=== PATIENT | female | born 1930 | race African-American/Black ===

== ENCOUNTER 2017-01-19 17:48 | Emergency (ER) | payer OTHER ==
[2017-01-19 17:58] VITALS: BMI 36.9
[2017-01-19] MEDS ORDERED: ACETAMINOPHEN 1000 MG/100 ML VIAL (NON FORMULARY) IVPB ONE (20:10)
[2017-01-19 20:58] LABS: URINE APPEARANCE CLEAR; URINE BILIRUBIN NEGATIVE (NEGATIVE); URINE BLOOD NEGATIVE (NEGATIVE); URINE COLOR AMBER; URINE GLUCOSE (UA) NEGATIVE (NEGATIVE); URINE KETONE NEGATIVE (NEGATIVE); URINE NITRITE NEGATIVE (NEGATIVE); URINE UROBILINOGEN 2.0 E.U/dl E.U./dl (0.2-1.0)
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
[2017-01-19 21:00] LABS: URINE BACTERIA RARE /hpf (NONE SEEN); URINE LEUK ESTERASE 2+ (NEGATIVE); URINE MUCUS RARE; URINE PROTEIN 1+ (NEGATIVE); URINE RBC 3 /hpf (0-3); URINE WBC 11 /hpf (3-5)
[2017-01-19] MEDS ORDERED: ACETAMINOPHEN INJECTION 100 ML IVPB ONE (21:13)
[2017-01-19 21:30] LABS: BASOPHIL 1.2 % (0-2.0); EOSINOPHIL 1.5 % (0-4.5); MCHC 30.3 g/dl (32.0-36.0); MEAN PLT VOLUME 9.4 fl (7.5-11.1); NEUTROPHILS 48.7 % (42.8-82.8); RDW 17.3 % (11.6-15.6); WHITE BLOOD COUNT 4.5 K/mm3 (4.0-10.0)
[2017-01-19 21:34] VITALS: TEMP 98.1
[2017-01-19 21:49] LABS: ALBUMIN 3.3 g/dl (3.4-5.0); ALK PHOS 133 U/L (45-117); ANION GAP 12 (8-16); BILIRUBIN,TOTAL 0.4 mg/dL (0.2-1.0); CALCIUM 9.1 mg/dL (8.5-10.1); CO2 31 mmol/L (21-32); CREATININE 0.7 mg/dL (0.55-1.02); GLUCOSE,RANDOM 111 mg/dL (74-106); SGOT/AST 18 U/L (15-37); SGPT/ALT 17 U/L (12-78); TOT PROT 7.1 g/dl (6.4-8.2)
[2017-01-19 21:51] LABS: ANISOCYTOSIS 1+; HYPOCHROMIA 2+; MICROCYTOSIS 1+; OVALOCYTES 1+; PLATELET ESTIMATE DECREASED (NORMAL); POLYCHROMASIA FEW; TROPONIN I < 0.02 ng/ml (0.00-0.05)
[2017-01-19 21:52] LABS: PLATELET COMMENT2 SLT PLT CLUMPING
[2017-01-20] MEDS ORDERED: CEPHALEXIN MONOHYDRATE 500 MG CAPSULE (UD) PO ONE (01:45)
[2017-01-20] MEDS ORDERED: CEPHALEXIN MONOHYDRATE 250 MG CAPSULE (FP) ONE (02:20)
[2017-01-20 02:46] VITALS: BP 153/68; PULSE 73
--- NOTE | 2017-01-20 16:15 | EKG ---
Test Reason : Blood Pressure : / mmHG Vent. Rate : 076 BPM Atrial Rate : 107 BPM P-R Int : 000 ms QRS Dur : 090 ms QT Int : 398 ms P-R-T Axes : 000 -10 025 degrees QTc Int : 447 ms POOR DATA QUALITY, INTERPRETATION MAY BE ADVERSELY AFFECTED ATRIAL FIBRILLATION ABNORMAL ECG WHEN COMPARED WITH ECG OF 22-APR-2015 15:37, ATRIAL FIBRILLATION HAS REPLACED SINUS RHYTHM Confirmed by CHARLOTTE ROY, ROGELIO ([id number]) on 01/20/2017 4:15:00 PM Referred By: Confirmed By:ROGELIO PORTER MD
== END 2017-01-20 02:51 ==
LOC: JER 17:48
PROC: 3E033NZ Introduction of Analgesics, Hypnotics, Sedatives into Peripheral Vein, Percutaneous Approach (ICD-10-PCS; principal; 2017-01-19)
DX: M54.2 Cervicalgia (principal); N39.0 Urinary tract infection, site not specified; R60.0 Localized edema; M79.604 Pain in right leg; M79.605 Pain in left leg; V68.1XXA Passenger in heavy transport vehicle injured in noncollision transport accident in nontraffic accident, initial encounter; Y92.414 Local residential or business street as the place of occurrence of the external cause; Y99.8 Other external cause status; Y93.89 Activity, other specified; I25.10 Atherosclerotic heart disease of native coronary artery without angina pectoris; I11.0 Hypertensive heart disease with heart failure; E78.00 Pure hypercholesterolemia, unspecified; D51.0 Vitamin B12 deficiency anemia due to intrinsic factor deficiency
CPT/HCPCS: 36415; 70450-TC; 72125-TC; 74177-TC; 80053; 81003; 81015; 82550; 83880; 84484; 85025; 93005; 93010; 93970-TC; 99283-25

== ENCOUNTER 2017-03-14 18:33 | Inpatient (IN) | payer OTHER ==
[2017-03-14] MEDS ORDERED: ALBUTEROL SO4 2.5/IPRATROPIUM 0.5 INH SOL 3 ML VIAL.NEB. NEB ONE ×3 (18:47→20:47)
[2017-03-14] MEDS ORDERED: methylPREDNISolone NA SUCC 125 MG/2 ML VIAL IVPB ONE (19:15)
[2017-03-14] MEDS ORDERED: methylPREDNISolone NA SUCC 125 MG/2 ML VIAL ONE (19:50)
[2017-03-14 20:02] LABS: INR 1.91 (0.82-1.09); PROTHROMBIN TIME (PATIENT) 21.3 SEC (9.98-11.88)
[2017-03-14 20:10] LABS: ALBUMIN 3.1 g/dl (3.4-5.0); ANION GAP 6 (8-16); BILIRUBIN,TOTAL 0.9 mg/dL (0.2-1.0); CALCIUM 8.9 mg/dL (8.5-10.1); CO2 37 mmol/L (21-32); CREATININE 0.7 mg/dL (0.55-1.02); GLUCOSE,RANDOM 131 mg/dL (74-106); SGOT/AST 21 U/L (15-37); SGPT/ALT 17 U/L (12-78); TOT PROT 7.4 g/dl (6.4-8.2)
[2017-03-14 20:12] LABS: ALK PHOS 120 U/L (45-117); BASOPHIL 0.4 % (0-2.0); EOSINOPHIL 0.2 % (0-4.5); MCHC 30.1 g/dl (32.0-36.0); MEAN CELL VOLUME 65.9 fl (80-96); NEUTROPHILS 73.6 % (42.8-82.8); RDW 17.5 % (11.6-15.6); TROPONIN I < 0.02 ng/ml (0.00-0.05); WHITE BLOOD COUNT 10.3 K/mm3 (4.0-10.0)
[2017-03-14 20:15] LABS: MCH 19.8 pg (25.7-33.7); MEAN PLT VOLUME 9.7 fl (7.5-11.1); PLATELET COUNT 159 K/MM3 (134-434)
[2017-03-14 20:25] LABS: URINE APPEARANCE CLEAR; URINE BILIRUBIN NEGATIVE (NEGATIVE); URINE BLOOD NEGATIVE (NEGATIVE); URINE COLOR YELLOW; URINE GLUCOSE (UA) NEGATIVE (NEGATIVE); URINE KETONE NEGATIVE (NEGATIVE); URINE LEUK ESTERASE TRACE (NEGATIVE); URINE NITRITE NEGATIVE (NEGATIVE); URINE PROTEIN NEGATIVE (NEGATIVE); URINE UROBILINOGEN 4.0 E.U/dl E.U./dl (0.2-1.0)
[2017-03-14 20:27] LABS: URINE RBC 3 /hpf (0-3); URINE WBC 1 /hpf (3-5)
[2017-03-14 20:28] LABS: PLATELET ESTIMATE DECREASED (NORMAL)
[2017-03-14 20:29] LABS: ANISOCYTOSIS 1+; HYPOCHROMIA 2+; MICROCYTOSIS 1+; POLYCHROMASIA 1+
--- NOTE | 2017-03-14 20:46 | PDOC ---
History of Present Illness - History of Present Illness Initial Comments: 03/14/17 23:31 Patient is a 86 year old female with significant medical hx of pernicious anemia , COPD, CHF, HTN, HLD, glaucoma, sarcoidosis, migraines, arthritis, septicemia and colon polyps, who has been sent to the ED via EMS [facility] for one week of productive cough. Patient complains of one week of progressive, productive, junky cough with some shortness of breath. The patient was found to be febrile at 101.0 and tachycardic in the ED. She is on 2 liters of O2 at home chronically for COPD. Denies nasal congestion, chest pain, weakness, lightheadedness, or dizziness. 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: Antonio Moreland MD <Melanie Koo - Last Filed: 03/14/17 23:31> <Deanna Villarreal - Last Filed: 03/15/17 01:25> - General Chief Complaint: Respiratory Stated Complaint: RESOIRATORY Time Seen by Provider: 03/14/17 18:44 Past History <Melanie Koo - Last Filed: 03/14/17 23:31> - Past Medical History Anemia: Yes (Pernicious) Asthma: Yes Cancer: No Cardiac Disorders: Yes (heart murmur) CVA: No COPD: Yes CHF: No Dementia: No Diabetes: No GI Disorders: No Disorders: No HTN: Yes Hypercholesterolemia: Yes Liver Disease: No Psychiatric Problems: Yes (ANXIETY.) Seizures: No Thyroid Disease: No - Surgical History Abdominal Surgery: Yes (abdominal) Appendectomy: No Cardiac Surgery: No Cholecystectomy: Yes Lung Surgery: No (PT DENIES) Neurologic Surgery: No Orthopedic Surgery: Yes (cervical spine/hardware) - Immunization History Immunization Up to Date: No - Psycho/Social/Smoking Cessation Hx Anxiety: No Suicidal Ideation: No Smoking Status: No Smoking History: Never smoked Years of Tobacco Use: 0 Have you smoked in the past 12 months: No Number of Cigarettes Smoked Daily: 0 Information on smoking cessation initiated: No Hx Alcohol Use: No Drug/Substance Use Hx: No Substance Use Type: None Hx Substance Use Treatment: No <Deanna Villarreal - Last Filed: 03/15/17 01:25> - Past Medical History Allergies/Adverse Reactions: Allergies Allergy/AdvReac Type Severity Reaction Status Date / Time No Known Allergies Allergy Verified 01/20/17 02:13 Home Medications: Ambulatory Orders Albuterol 0.083% Nebulizer Lyudmila [Ventolin 0.083% Nebulizer Soln -] 1 amp NEB Q8H 01/19/17 Apixaban [Eliquis] 5 mg PO BID 01/19/17 Ascorbic Acid [Vitamin C -] 500 mg PO DAILY 01/19/17 Atorvastatin Ca [Lipitor] 20 mg PO DAILY 01/19/17 Bisacodyl Suppository [Dulcolax Suppository -] 10 mg RC PRN 01/19/17 Budesonide/Formeterol Fumarate [SYMBICORT 160/4.5mcg -] 1 inh PO BID 01/19/17 Diltiazem Cd [Cardizem Cd -] 180 mg PO DAILY 01/19/17 Folic Acid 1 mg PO DAILY 01/19/17 Furosemide [Lasix] 40 mg PO DAILY 01/19/17 Gabapentin 100 mg PO TID 01/19/17 Ipratropium 0.02% Nebulizer [Atrovent *Nebulizer*] 0.5 mg IH Q8H 01/19/17 Latanoprost 0.005% Eye Drops [Xalatan 0.005% Eye Drops -] 1 drop OU HS 01/19/17 Magnesium Hydroxide [Milk of Magnesia] 30 ml PO DAILY 01/19/17 Multivitamin [Poly-Vitamin] 1 each PO DAILY 01/19/17 Pantoprazole Sodium 40 mg PO DAILY 01/19/17 Potassium Chloride [Klor-Con 10] 10 meq PO DAILY 01/19/17 Review of Systems - Review of Systems Comments:: 03/14/17 23:36 CONSTITUTIONAL: Absent: fever, chills, diaphoresis, generalized weakness, malaise, loss of appetite HEENT: Absent: rhinorrhea, nasal congestion, throat pain, throat swelling, difficulty swallowing, mouth swelling, ear pain, eye pain, visual changes CARDIOVASCULAR: Absent: chest pain, syncope, palpitations, irregular heart rate, lightheadedness , peripheral edema RESPIRATORY: Present: cough, shortness of breath Absent: dyspnea with exertion, orthopnea, wheezing, stridor, hemoptysis GASTROINTESTINAL: Absent: abdominal pain, abdominal distension, nausea, vomiting, diarrhea, constipation, melena, hematochezia GENITOURINARY: Absent: dysuria, frequency, urgency, hesitancy, hematuria, flank pain, genital pain MUSCULOSKELETAL: Absent: myalgia, arthralgia, joint swelling SKIN: Absent: rash, itching, pallor HEMATOLOGIC/IMMUNOLOGIC: Absent: easy bleeding, easy bruising, lymphadenopathy, frequent infections ENDOCRINE: Absent: unexplained weight gain, unexplained weight loss, heat intolerance, cold intolerance NEUROLOGIC: Absent: headache, focal weakness or paresthesia, dizziness, unsteady gait, seizure, mental status changes, bladder or bowel incontinence. PSYCHIATRIC: Absent: anxiety, depression, suicidal or homicidal ideation, hallucinations <Melanie Koo - Last Filed: 03/14/17 23:31> *Physical Exam - Vital Signs Last Vital Signs Temp Pulse Resp BP Pulse Ox 101.0 F H 89 24 144/61 100 03/14/17 18:33 03/14/17 23:10 03/14/17 23:10 03/14/17 23:10 03/14/17 23:10 - Physical Exam Comments: 03/14/17 23:36 GENERAL: Well developed, well nourished. Awake and alert. Febrile. Mild distress. HEENT: Normocephalic, atraumatic. PERRLA, EOMI. No conjunctival pallor. Sclera are non- icteric. Moist mucous membranes. Oropharynx is clear. NECK: Supple. Full ROM. No JVD. Carotid pulses 2+ and symmetric, without bruits. No thyromegaly. No lymphadenopathy. CARDIOVASCULAR: Irregularly irregular. Tachycardic. No murmurs, rubs, or gallops. Distal pulses are 2+ and symmetric. PULMONARY: Diffuse wheezing. Diffuse rhonchorous breath sounds. No evidence of respiratory distress. No rales. ABDOMINAL: Soft. Non-tender. Non-distended. No rebound or guarding. No organomegaly. Normoactive bowel sounds. MUSCULOSKELETAL: Normal range of motion at all joints. No bony deformities or tenderness. No CVA tenderness. EXTREMITIES: No cyanosis. No clubbing. Pitting edema lower extremities bilaterally. No venous stasis. No leg ulcers. No calf tenderness. SKIN: Warm and dry. Normal capillary refill. No rashes. No jaundice. NEUROLOGICAL: Alert, awake, appropriate. Cranial nerves 2-12 intact. Normal speech. Gait is normal without ataxia. PSYCHIATRIC: Cooperative. Good eye contact. Appropriate mood and affect. <Melanie Koo - Last Filed: 03/14/17 23:31> - Vital Signs Last Vital Signs Temp Pulse Resp BP Pulse Ox 101.0 F H 95 H 24 149/72 98 03/14/17 18:33 03/14/17 18:33 03/14/17 18:33 03/14/17 18:33 03/14/17 20:40 <PhilDeanna Wendy - Last Filed: 03/15/17 01:25> ED Treatment Course - LABORATORY CBC & Chemistry Diagram: 03/14/17 19:30 03/14/17 19:30 - ADDITIONAL ORDERS Additional order review: Laboratory Results 03/14/17 03/14/17 03/14/17 22:09 20:20 20:15 INR PTT (Actin FS) Sodium Potassium Chloride Carbon Dioxide Anion Gap BUN Creatinine Creat Clearance w eGFR Random Glucose Lactic Acid 3.8 H* Calcium Total Bilirubin AST ALT Alkaline Phosphatase Creatine Kinase Troponin I Total Protein Albumin Urine Color Yellow Urine Appearance Clear Urine pH 6.0 Ur Specific [place] 1.015 Urine Protein Negative Urine Glucose (UA) Negative Urine Ketones Negative Urine Blood Negative Urine Nitrite Negative Urine Bilirubin Negative Urine Urobilinogen 4.0 e.u/dl H Ur Leukocyte Esterase Trace H D Urine RBC 3 Urine WBC 1 Ur Epithelial Cells Rare Blood Type Cancelled Antibody Screen Cancelled Spec Expiration Date Cancelled 03/14/17 03/14/17 03/14/17 19:30 19:30 19:30 INR PTT (Actin FS) Sodium 139 Potassium 3.9 Chloride 96 L Carbon Dioxide 37 H Anion Gap 6 L BUN 9 Creatinine 0.7 Creat Clearance w eGFR > 60 Random Glucose 131 H Lactic Acid 2.7 H* Calcium 8.9 Total Bilirubin 0.9 D AST 21 ALT 17 Alkaline Phosphatase 120 H Creatine Kinase 79 Troponin I < 0.02 Total Protein 7.4 Albumin 3.1 L Urine Color Urine Appearance Urine pH Ur Specific [place] Urine Protein Urine Glucose (UA) Urine Ketones Urine Blood Urine Nitrite Urine Bilirubin Urine Urobilinogen Ur Leukocyte Esterase Urine RBC Urine WBC Ur Epithelial Cells Blood Type B POSITIVE Antibody Screen Cancelled Spec Expiration Date Cancelled 03/14/17 19:30 INR 1.91 H D PTT (Actin FS) 43.0 H Sodium Potassium Chloride Carbon Dioxide Anion Gap BUN Creatinine Creat Clearance w eGFR Random Glucose Lactic Acid Calcium Total Bilirubin AST ALT Alkaline Phosphatase Creatine Kinase Troponin I Total Protein Albumin Urine Color Urine Appearance Urine pH Ur Specific [place] Urine Protein Urine Glucose (UA) Urine Ketones Urine Blood Urine Nitrite Urine Bilirubin Urine Urobilinogen Ur Leukocyte Esterase Urine RBC Urine WBC Ur Epithelial Cells Blood Type Antibody Screen Spec Expiration Date 03/14/17 19:30 RBC 5.02 MCV 65.9 L MCHC 30.1 L RDW 17.5 H MPV 9.7 Neutrophils % 73.6 D Lymphocytes % 14.2 D Monocytes % 11.6 H Eosinophils % 0.2 D Basophils % 0.4 - Medications Given in the ED: ED Medications Discontinued Medications Generic Name Dose Route Start Last Admin Trade Name Freq PRN Reason Stop Dose Admin Acetaminophen 650 mg 03/14/17 22:18 03/14/17 22:58 Tylenol - PO 03/14/17 22:19 650 mg ONCE ONE Administration Albuterol/Ipratropium 1 amp 03/14/17 19:15 03/14/17 20:19 Duoneb - NEB 03/14/17 19:16 1 amp ONCE ONE Administration Albuterol/Ipratropium 1 amp 03/14/17 20:47 03/14/17 21:36 Duoneb - NEB 03/14/17 20:48 1 amp ONCE ONE Administration Furosemide 40 mg 03/14/17 22:19 03/14/17 22:59 Lasix Injection - IVPUSH 03/14/17 22:20 40 mg ONCE ONE Administration Ceftriaxone Sodium 1 gm/ 50 mls @ 100 mls/hr 03/14/17 20:49 03/14/17 21:15 Dextrose IVPB 03/14/17 21:18 100 mls/hr ONCE ONE Administration Levofloxacin 100 mls @ 100 mls/hr 03/14/17 20:50 03/14/17 21:15 Levaquin 500 Mg Premixed Ivpb - IVPB 03/14/17 21:49 100 mls/hr ONCE ONE Administration Ceftriaxone Sodium 1 gm/ 50 mls @ 100 mls/hr 03/14/17 22:58 03/14/17 23:23 Dextrose IVPB 03/14/17 23:27 Not Given ONCE ONE Methylprednisolone Sodium Succinate 125 mg 03/14/17 19:15 03/14/17 20:19 Solu-Medrol - IVPB 03/14/17 19:16 125 mg ONCE ONE Administration <Melanie Koo - Last Filed: 03/14/17 23:31> - LABORATORY CBC & Chemistry Diagram: 03/14/17 19:30 03/14/17 19:30 - ADDITIONAL ORDERS Additional order review: Laboratory Results 03/14/17 03/14/17 03/14/17 20:20 20:15 19:30 INR PTT (Actin FS) Sodium Potassium Chloride Carbon Dioxide Anion Gap BUN Creatinine Creat Clearance w eGFR Random Glucose Lactic Acid Calcium Total Bilirubin AST ALT Alkaline Phosphatase Creatine Kinase Troponin I Total Protein Albumin Urine Color Yellow Urine Appearance Clear Urine pH 6.0 Urine Protein Negative Urine Glucose (UA) Negative Urine Ketones Negative Urine Blood Negative Urine Nitrite Negative Urine Bilirubin Negative Urine Urobilinogen 4.0 e.u/dl H Ur Leukocyte Esterase Trace H D Urine RBC 3 Urine WBC 1 Ur Epithelial Cells Rare Blood Type Cancelled Antibody Screen Cancelled Cancelled Spec Expiration Date Cancelled Cancelled 03/14/17 03/14/17 03/14/17 19:30 19:30 19:30 INR 1.91 H D PTT (Actin FS) 43.0 H Sodium 139 Potassium 3.9 Chloride 96 L Carbon Dioxide 37 H Anion Gap 6 L BUN 9 Creatinine 0.7 Creat Clearance w eGFR > 60 Random Glucose 131 H Lactic Acid 2.7 H* Calcium 8.9 Total Bilirubin 0.9 D AST 21 ALT 17 Alkaline Phosphatase 120 H Creatine Kinase 79 Troponin I < 0.02 Total Protein 7.4 Albumin 3.1 L Urine Color Urine Appearance Urine pH Urine Protein Urine Glucose (UA) Urine Ketones Urine Blood Urine Nitrite Urine Bilirubin Urine Urobilinogen Ur Leukocyte Esterase Urine RBC Urine WBC Ur Epithelial Cells Blood Type Antibody Screen Spec Expiration Date 03/14/17 19:30 RBC 5.02 MCV 65.9 L MCHC 30.1 L RDW 17.5 H MPV 9.7 Neutrophils % 73.6 D Lymphocytes % 14.2 D Monocytes % 11.6 H Eosinophils % 0.2 D Basophils % 0.4 - RADIOLOGY Radiology Studies Ordered: Category Date Time Status CHEST X-RAY PORTABLE* [RAD] Stat Radiology 03/14/17 19:13 Taken - Medications Given in the ED: ED Medications Discontinued Medications Generic Name Dose Route Start Last Admin Trade Name Khang PRN Reason Stop Dose Admin Albuterol/Ipratropium 1 amp 03/14/17 19:15 03/14/17 20:19 Duoneb - NEB 03/14/17 19:16 1 amp ONCE ONE Administration Methylprednisolone Sodium Succinate 125 mg 03/14/17 19:15 03/14/17 20:19 Solu-Medrol - IVPB 03/14/17 19:16 125 mg ONCE ONE Administration <Deanna Villarreal - Last Filed: 03/15/17 01:25> *DC/Admit/Observation/Transfer - Attestations Scribe Attestion: 03/14/17 23:39 Documentation prepared by Melanie Koo, acting as registered medical transcriptionist for Deanna Villarreal MD. <Melanie Koo - Last Filed: 03/14/17 23:31> - Discharge Dispostion Admit: Yes <Deanna Villarreal - Last Filed: 03/15/17 01:25> Diagnosis at time of Disposition: COPD (chronic obstructive pulmonary disease) Qualifiers: COPD type: COPD with acute exacerbation Qualified Code(s): J44.1 - Chronic obstructive pulmonary disease with (acute) exacerbation Fever Qualifiers: Fever type: due to other condition Qualified Code(s): R50.81 - Fever presenting with conditions classified elsewhere Pneumonia Qualifiers: Pneumonia type: due to unspecified organism Laterality: unspecified laterality Lung location: lower lobe of lung Qualified Code(s): J18.1 - Lobar pneumonia, unspecified organism
[2017-03-14] MEDS ORDERED: CEFTRIAXONE 1 GM in DEXTROSE 5%-WATER - 50 ML IVPB ONE ×2 (20:49→22:58)
[2017-03-14] MEDS ORDERED: LEVOFLOXACIN 500 MG IVPB 100 ML IVPB ONE ×2 (20:50→21:14)
[2017-03-14] MEDS ORDERED: CEFTRIAXONE 50 ML ONE (21:14)
[2017-03-14] MEDS ORDERED: ACETAMINOPHEN 325 MG TABLET (FP) PO ONE (22:18)
[2017-03-14] MEDS ORDERED: FUROSEMIDE 40 MG/4 ML INJECTABLE VIAL IVPUSH ONE (22:19)
[2017-03-14] MEDS ORDERED: ACETAMINOPHEN 325 MG TABLET (FP) ONE (22:27)
[2017-03-14] MEDS ORDERED: FUROSEMIDE 40 MG/4 ML INJECTABLE VIAL ONE (22:27)
[2017-03-14] MEDS ORDERED: SODIUM CHLORIDE 500 ML IV STA (22:57)
[2017-03-14] MEDS ORDERED: AZITHROMYCIN IVPB 500 MG in DEXTROSE 5%-WATER - 250 ML IVPB ONE (22:58)
[2017-03-14] MEDS ORDERED: AZITHROMYCIN IVPB 250 ML IVPB ONE (23:05)
[2017-03-15 01:15] LABS: TROPONIN I < 0.02 ng/ml (0.00-0.05)
[2017-03-15 05:13] VITALS: BMI 34.9
[2017-03-15] MEDS: ALBUTEROL SO4 2.5/IPRATROPIUM 0.5 INH SOL 3 ML VIAL.NEB. NEB PRN ×2 (05:27→21:35)
[2017-03-15] MEDS: GABAPENTIN 100 MG CAPSULE (FP) PO SCH ×3 (06:05→22:19)
[2017-03-15] MEDS ORDERED: PT OWN MED DRAWER 7, Y5N ONE ×3 (09:01→23:21)
[2017-03-15] MEDS: methylPREDNISolone NA SUCC 125 MG/2 ML VIAL IVPB SCH ×3 (09:11→21:18)
[2017-03-15] MEDS: PANTOPRAZOLE 40 MG TABLET (FP) PO SCH (10:32)
[2017-03-15] MEDS: cefTRIAXone 1 GM/50 ML BAG (PRE-DOCKED) IVPB SCH (10:32)
--- NOTE | 2017-03-15 14:10 | EKG ---
Test Reason : Blood Pressure : / mmHG Vent. Rate : 095 BPM Atrial Rate : 083 BPM P-R Int : 000 ms QRS Dur : 086 ms QT Int : 352 ms P-R-T Axes : 000 -02 038 degrees QTc Int : 442 ms ATRIAL FIBRILLATION ABNORMAL ECG WHEN COMPARED WITH ECG OF 19-JAN-2017 20:51, NO SIGNIFICANT CHANGE WAS FOUND Confirmed by BEE MAYERS MD ([id number]) on 03/15/2017 2:09:58 PM Referred By: Confirmed By:BEE MAYERS MD
--- NOTE | 2017-03-15 14:11 | CONSULT ---
Consult Consult Specialty:: infectious diseases Reason for Consultation:: fever,pna - History of Present Illness Chief Complaint: sob fever History of Present Illness: 86 year old female with significant medical hx of pernicious anemia, COPD, CHF, HTN, HLD, glaucoma, sarcoidosis, migraines, arthritis, septicemia and colon polyps, who has been sent to the ED via EMS from [facility] for one week of productive cough. Patient complains of one week of progressive, productive, junky cough with some shortness of breath. The patient was found to be febrile at 101.0 and tachycardic in the ED. She is on 2 liters of O2 at home chronically for COPD. patient says that she has been having issues for some time and not getting better at all and wants to know why patient feels very weak and tired She denies any chest pain or palpitations but reports a cough productive of yellow sputum and wheezing. and chills. Also reports leg swelling increased from her baseline. 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 No: Renal Calculi ...: No Psych: Yes: Depression - Alcohol/Substance Use Hx Alcohol Use: No - Smoking History Smoking history: Never smoked Have you smoked in the past 12 months: No Aproximately how many cigarettes per day: 0 - Social History History of Recent Travel: No Home Medications - Allergies Allergies/Adverse Reactions: Allergies Allergy/AdvReac Type Severity Reaction Status Date / Time No Known Allergies Allergy Verified 01/20/17 02:13 - Home Medications Home Medications: Ambulatory Orders Albuterol 0.083% Nebulizer Lyudmila [Ventolin 0.083% Nebulizer Soln -] 1 amp NEB Q8H 01/19/17 Apixaban [Eliquis] 5 mg PO BID 01/19/17 Ascorbic Acid [Vitamin C -] 500 mg PO DAILY 01/19/17 Atorvastatin Ca [Lipitor] 20 mg PO DAILY 01/19/17 Bisacodyl Suppository [Dulcolax Suppository -] 10 mg RC PRN 01/19/17 Budesonide/Formeterol Fumarate [SYMBICORT 160/4.5mcg -] 1 inh PO BID 01/19/17 Diltiazem Cd [Cardizem Cd -] 180 mg PO DAILY 01/19/17 Folic Acid 1 mg PO DAILY 01/19/17 Furosemide [Lasix] 40 mg PO DAILY 01/19/17 Gabapentin 100 mg PO TID 01/19/17 Ipratropium 0.02% Nebulizer [Atrovent *Nebulizer*] 0.5 mg IH Q8H 01/19/17 Latanoprost 0.005% Eye Drops [Xalatan 0.005% Eye Drops -] 1 drop OU HS 01/19/17 Magnesium Hydroxide [Milk of Magnesia] 30 ml PO DAILY 01/19/17 Multivitamin [Poly-Vitamin] 1 each PO DAILY 01/19/17 Pantoprazole Sodium 40 mg PO DAILY 01/19/17 Potassium Chloride [Klor-Con 10] 10 meq PO DAILY 01/19/17 Review of Systems - Review of Systems Constitutional: reports: Fever Eyes: reports: No Symptoms HENT: reports: No Symptoms Neck: reports: No Symptoms Cardiovascular: reports: No Symptoms Respiratory: reports: Cough, Other (sputum production) Gastrointestinal: reports: No Symptoms Genitourinary: reports: No Symptoms Musculoskeletal: reports: Muscle Weakness Integumentary: reports: No Symptoms Neurological: reports: No Symptoms Endocrine: reports: No Symptoms Hematology/Lymphatic: reports: No Symptoms Psychiatric: reports: No Symptoms Physical Exam Vital Signs: Vital Signs Temperature 98 F 03/15/17 09:31 Pulse Rate 80 03/15/17 09:31 Respiratory Rate 18 03/15/17 09:31 Blood Pressure 142/76 03/15/17 09:31 O2 Sat by Pulse Oximetry (%) 100 03/15/17 04:14 Constitutional: Yes: Calm, Mild Distress Eyes: Yes: Conjunctiva Clear Neck: Yes: Supple Cardiovascular: Yes: Regular Rate and Rhythm Respiratory: Yes: On Nasal O2, Poor Air Entry, Rhonchi Gastrointestinal: Yes: Normal Bowel Sounds, Soft Musculoskeletal: Yes: WNL Extremities: Yes: WNL Neurological: Yes: Alert, Oriented Psychiatric: Yes: Alert, Oriented Imaging - Results Chest X-ray: Report Reviewed, Image Reviewed Assessment/Plan Problem List - Problems (1) Acute exacerbation of chronic obstructive pulmonary disease Code(s): J44.1 - CHRONIC OBSTRUCTIVE PULMONARY DISEASE W (ACUTE) EXACERBATION (2) Chronic respiratory failure with hypoxia Code(s): J96.11 - CHRONIC RESPIRATORY FAILURE WITH HYPOXIA (3) Sarcoidosis Code(s): D86.9 - SARCOIDOSIS, UNSPECIFIED (4) Hypertension Code(s): I10 - ESSENTIAL (PRIMARY) HYPERTENSION Qualifiers: Hypertension type: essential hypertension Qualified Code(s): I10 - Essential (primary) hypertension (5) Pneumonia Code(s): J18.9 - PNEUMONIA, UNSPECIFIED ORGANISM Qualifiers: Pneumonia type: due to unspecified organism Laterality: unspecified laterality Lung location: lower lobe of lung Qualified Code(s): J18.1 - Lobar pneumonia, unspecified organism i think patient has couple of things going on patient has infective element also she has her primary sarcoid plan i will start on abx and monitor we should do a ct of the chest to see if anything else is going on incentive radha rest as per pul
[2017-03-15] MEDS: APIXABAN 5 MG TABLET PO SCH ×2 (14:15→22:19)
--- NOTE | 2017-03-15 14:47 | CON.PULM ---
Consult Consult Specialty:: PULMONARY Referred by:: Dr. Doran Reason for Consultation:: shortness of breath - History of Present Illness Chief Complaint: shortness of breath History of Present Illness: 86yo female with h/o HTN, hyperlipidemia, sarcoidosis, COPD, chronic hypoxic respiratory failure on home O2, anemia who was transferred from the care home for worsening shortness of breath x 3-4 days. She denies any chest pain or palpitations but reports a cough productive of yellow sputum and wheezing. Reports subjective fevers and chills. Also reports leg swelling increased from her baseline. 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 No: Renal Calculi ...: No Psych: Yes: Depression - Alcohol/Substance Use Hx Alcohol Use: No - Smoking History Smoking history: Never smoked Have you smoked in the past 12 months: No Aproximately how many cigarettes per day: 0 - Social History History of Recent Travel: No Home Medications - Allergies Allergies/Adverse Reactions: Allergies Allergy/AdvReac Type Severity Reaction Status Date / Time No Known Allergies Allergy Verified 01/20/17 02:13 - Home Medications Home Medications: Ambulatory Orders Albuterol 0.083% Nebulizer Lyudmila [Ventolin 0.083% Nebulizer Soln -] 1 amp NEB Q8H 01/19/17 Apixaban [Eliquis] 5 mg PO BID 01/19/17 Ascorbic Acid [Vitamin C -] 500 mg PO DAILY 01/19/17 Atorvastatin Ca [Lipitor] 20 mg PO DAILY 01/19/17 Bisacodyl Suppository [Dulcolax Suppository -] 10 mg RC PRN 01/19/17 Budesonide/Formeterol Fumarate [SYMBICORT 160/4.5mcg -] 1 inh PO BID 01/19/17 Diltiazem Cd [Cardizem Cd -] 180 mg PO DAILY 01/19/17 Folic Acid 1 mg PO DAILY 01/19/17 Furosemide [Lasix] 40 mg PO DAILY 01/19/17 Gabapentin 100 mg PO TID 01/19/17 Ipratropium 0.02% Nebulizer [Atrovent *Nebulizer*] 0.5 mg IH Q8H 01/19/17 Latanoprost 0.005% Eye Drops [Xalatan 0.005% Eye Drops -] 1 drop OU HS 01/19/17 Magnesium Hydroxide [Milk of Magnesia] 30 ml PO DAILY 01/19/17 Multivitamin [Poly-Vitamin] 1 each PO DAILY 01/19/17 Pantoprazole Sodium 40 mg PO DAILY 01/19/17 Potassium Chloride [Klor-Con 10] 10 meq PO DAILY 01/19/17 Review of Systems - Review of Systems Constitutional: reports: Chills, Fever Eyes: denies: Recent Change in Vision HENT: denies: Nasal Congestion, Throat Pain Neck: denies: Stiffness, Tenderness Cardiovascular: reports: Edema, Shortness of Breath. denies: Chest Pain, Palpitations Respiratory: reports: Cough, SOB on Exertion, Wheezing. denies: Hemoptysis Gastrointestinal: denies: Abdominal Pain, Nausea, Vomiting Genitourinary: denies: Dysuria, Hematuria Neurological: denies: Dizziness, Headache Physical Exam Vital Sings: Vital Signs Temperature 98 F 03/15/17 09:31 Pulse Rate 80 03/15/17 09:31 Respiratory Rate 18 03/15/17 09:31 Blood Pressure 142/76 03/15/17 09:31 O2 Sat by Pulse Oximetry (%) 100 03/15/17 04:14 Constitutional: Yes: Calm Eyes: Yes: Conjunctiva Clear, EOM Intact HENT: Yes: Atraumatic, Normocephalic Neck: Yes: Supple, Trachea Midline Cardiovascular: Yes: Regular Rate and Rhythm Respiratory: Yes: Rhonchi, Wheezes ...Clubbing: No Gastrointestinal: Yes: Normal Bowel Sounds, Soft. No: Tenderness Edema: Yes Neurological: Yes: Alert, Oriented Imaging - Results Chest X-ray: Report Reviewed, Image Reviewed (interstitial changes, cardiomegaly ) Problem List - Problems (1) Acute exacerbation of chronic obstructive pulmonary disease Code(s): J44.1 - CHRONIC OBSTRUCTIVE PULMONARY DISEASE W (ACUTE) EXACERBATION (2) Chronic respiratory failure with hypoxia Code(s): J96.11 - CHRONIC RESPIRATORY FAILURE WITH HYPOXIA (3) Sarcoidosis Code(s): D86.9 - SARCOIDOSIS, UNSPECIFIED (4) Hypertension Code(s): I10 - ESSENTIAL (PRIMARY) HYPERTENSION Qualifiers: Hypertension type: essential hypertension Qualified Code(s): I10 - Essential (primary) hypertension (5) Pneumonia Code(s): J18.9 - PNEUMONIA, UNSPECIFIED ORGANISM Qualifiers: Pneumonia type: due to unspecified organism Laterality: unspecified laterality Lung location: lower lobe of lung Qualified Code(s): J18.1 - Lobar pneumonia, unspecified organism Assessment/Plan Acute COPD Exacerbation r/o Pneumonia Sarcoidosis Chronic Hypoxic Respiratory Failure Lactic Acidosis Pulmonary HTN HTN - IV antibiotics - f/u cultures - IV medrol - inhaled bronchodilators - O2 to keep SpO2 >90% - IVF - trend lactate - will need outpt PFTs and outpt f/u of imaging Thank you for this consult Lon Espinosa MD
--- NOTE | 2017-03-15 14:57 | HP ---
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 No: Renal Calculi ...: No Psych: Yes: Depression - Smoking History Smoking history: Never smoked Have you smoked in the past 12 months: No Aproximately how many cigarettes per day: 0 - Alcohol/Substance Use Hx Alcohol Use: No - Social History History of Recent Travel: No Home Medications - Allergies Allergies/Adverse Reactions: Allergies Allergy/AdvReac Type Severity Reaction Status Date / Time No Known Allergies Allergy Verified 01/20/17 02:13 - Home Medications Home Medications: Ambulatory Orders Albuterol 0.083% Nebulizer Lyudmila [Ventolin 0.083% Nebulizer Soln -] 1 amp NEB Q8H 01/19/17 Apixaban [Eliquis] 5 mg PO BID 01/19/17 Ascorbic Acid [Vitamin C -] 500 mg PO DAILY 01/19/17 Atorvastatin Ca [Lipitor] 20 mg PO DAILY 01/19/17 Bisacodyl Suppository [Dulcolax Suppository -] 10 mg RC PRN 01/19/17 Budesonide/Formeterol Fumarate [SYMBICORT 160/4.5mcg -] 1 inh PO BID 01/19/17 Diltiazem Cd [Cardizem Cd -] 180 mg PO DAILY 01/19/17 Folic Acid 1 mg PO DAILY 01/19/17 Furosemide [Lasix] 40 mg PO DAILY 01/19/17 Gabapentin 100 mg PO TID 01/19/17 Ipratropium 0.02% Nebulizer [Atrovent *Nebulizer*] 0.5 mg IH Q8H 01/19/17 Latanoprost 0.005% Eye Drops [Xalatan 0.005% Eye Drops -] 1 drop OU HS 01/19/17 Magnesium Hydroxide [Milk of Magnesia] 30 ml PO DAILY 01/19/17 Multivitamin [Poly-Vitamin] 1 each PO DAILY 01/19/17 Pantoprazole Sodium 40 mg PO DAILY 01/19/17 Potassium Chloride [Klor-Con 10] 10 meq PO DAILY 01/19/17 Physical Examination Vital Signs: Vital Signs Temperature 98 F 03/15/17 09:31 Pulse Rate 80 03/15/17 09:31 Respiratory Rate 18 03/15/17 09:31 Blood Pressure 142/76 03/15/17 09:31 O2 Sat by Pulse Oximetry (%) 98 03/15/17 09:00 Constitutional: Yes: No Distress HENT: Yes: Atraumatic Neck: Yes: Supple Cardiovascular: Yes: Regular Rate and Rhythm Respiratory: Yes: Rhonchi, Wheezes Gastrointestinal: Yes: Normal Bowel Sounds Extremities: Yes: WNL Neurological: Yes: Alert, Oriented Problem List - Problems (1) Acute exacerbation of chronic obstructive pulmonary disease Assessment/Plan: iv steroids duo nebs Code(s): J44.1 - CHRONIC OBSTRUCTIVE PULMONARY DISEASE W (ACUTE) EXACERBATION (2) Fever Assessment/Plan: bcx ucx on abx Code(s): R50.9 - FEVER, UNSPECIFIED Qualifiers: Fever type: due to other condition Qualified Code(s): R50.81 - Fever presenting with conditions classified elsewhere (3) Pneumonia Assessment/Plan: on abx Code(s): J18.9 - PNEUMONIA, UNSPECIFIED ORGANISM Qualifiers: Pneumonia type: due to unspecified organism Laterality: unspecified laterality Lung location: lower lobe of lung Qualified Code(s): J18.1 - Lobar pneumonia, unspecified organism (4) Chest tightness Code(s): R07.89 - OTHER CHEST PAIN (5) Coronary artery disease Assessment/Plan: troponin negative Code(s): I25.10 - ATHSCL HEART DISEASE OF [place] CORONARY ARTERY W/O ANG PCTRS (6) Hypertension Assessment/Plan: stable on meds Code(s): I10 - ESSENTIAL (PRIMARY) HYPERTENSION Qualifiers: Hypertension type: essential hypertension Qualified Code(s): I10 - Essential (primary) hypertension Assessment/Plan Laboratory Tests 03/14/17 03/14/17 03/14/17 19:30 19:30 19:30 WBC 10.3 H D RBC 5.02 Hgb 10.0 L Hct 33.1 MCV 65.9 L MCHC 30.1 L RDW 17.5 H Plt Count 159 MPV 9.7 Neutrophils % 73.6 D Lymphocytes % 14.2 D Monocytes % 11.6 H Eosinophils % 0.2 D Basophils % 0.4 Platelet Estimate Decreased Platelet Comment No clumping noted Polychromasia 1+ Hypochromic-Microcytic 2+ Anisocytosis 1+ Microcytosis 1+ INR 1.91 H D PTT (Actin FS) 43.0 H Sodium 139 Potassium 3.9 Chloride 96 L Carbon Dioxide 37 H Anion Gap 6 L BUN 9 Creatinine 0.7 Creat Clearance w eGFR > 60 Random Glucose 131 H Lactic Acid Calcium 8.9 Total Bilirubin 0.9 D AST 21 ALT 17 Alkaline Phosphatase 120 H Creatine Kinase 79 Troponin I < 0.02 B-Natriuretic Peptide Total Protein 7.4 Albumin 3.1 L Urine Color Urine Appearance Urine pH Ur Specific [place] Urine Protein Urine Glucose (UA) Urine Ketones Urine Blood Urine Nitrite Urine Bilirubin Urine Urobilinogen Ur Leukocyte Esterase Urine RBC Urine WBC Ur Epithelial Cells Blood Type Antibody Screen Spec Expiration Date 03/14/17 03/14/17 03/14/17 19:30 19:30 20:15 WBC RBC Hgb Hct MCV MCHC RDW Plt Count MPV Neutrophils % Lymphocytes % Monocytes % Eosinophils % Basophils % Platelet Estimate Platelet Comment Polychromasia Hypochromic-Microcytic Anisocytosis Microcytosis INR PTT (Actin FS) Sodium Potassium Chloride Carbon Dioxide Anion Gap BUN Creatinine Creat Clearance w eGFR Random Glucose Lactic Acid 2.7 H* Calcium Total Bilirubin AST ALT Alkaline Phosphatase Creatine Kinase Troponin I B-Natriuretic Peptide Total Protein Albumin Urine Color Yellow Urine Appearance Clear Urine pH 6.0 Ur Specific [place] 1.015 Urine Protein Negative Urine Glucose (UA) Negative Urine Ketones Negative Urine Blood Negative Urine Nitrite Negative Urine Bilirubin Negative Urine Urobilinogen 4.0 e.u/dl H Ur Leukocyte Esterase Trace H D Urine RBC 3 Urine WBC 1 Ur Epithelial Cells Rare Blood Type B POSITIVE Antibody Screen Cancelled Spec Expiration Date Cancelled 03/14/17 03/14/17 03/14/17 20:20 22:09 23:00 WBC RBC Hgb Hct MCV MCHC RDW Plt Count MPV Neutrophils % Lymphocytes % Monocytes % Eosinophils % Basophils % Platelet Estimate Platelet Comment Polychromasia Hypochromic-Microcytic Anisocytosis Microcytosis INR PTT (Actin FS) Sodium Potassium Chloride Carbon Dioxide Anion Gap BUN Creatinine Creat Clearance w eGFR Random Glucose Lactic Acid 3.8 H* Calcium Total Bilirubin AST ALT Alkaline Phosphatase Creatine Kinase Troponin I B-Natriuretic Peptide 1463.90 H Total Protein Albumin Urine Color Urine Appearance Urine pH Ur Specific [place] Urine Protein Urine Glucose (UA) Urine Ketones Urine Blood Urine Nitrite Urine Bilirubin Urine Urobilinogen Ur Leukocyte Esterase Urine RBC Urine WBC Ur Epithelial Cells Blood Type Cancelled Antibody Screen Cancelled Spec Expiration Date Cancelled 03/15/17 00:15 WBC RBC Hgb Hct MCV MCHC RDW Plt Count MPV Neutrophils % Lymphocytes % Monocytes % Eosinophils % Basophils % Platelet Estimate Platelet Comment Polychromasia Hypochromic-Microcytic Anisocytosis Microcytosis INR PTT (Actin FS) Sodium Potassium Chloride Carbon Dioxide Anion Gap BUN Creatinine Creat Clearance w eGFR Random Glucose Lactic Acid Calcium Total Bilirubin AST ALT Alkaline Phosphatase Creatine Kinase 62 Troponin I < 0.02 B-Natriuretic Peptide Total Protein Albumin Urine Color Urine Appearance Urine pH Ur Specific [place] Urine Protein Urine Glucose (UA) Urine Ketones Urine Blood Urine Nitrite Urine Bilirubin Urine Urobilinogen Ur Leukocyte Esterase Urine RBC Urine WBC Ur Epithelial Cells Blood Type Antibody Screen Spec Expiration Date Active Medications Generic Name Dose Route Start Last Admin Trade Name Freq PRN Reason Stop Dose Admin Acetaminophen 650 mg 03/15/17 04:57 Tylenol - PO Q6H PRN FEVER OR PAIN Albuterol/Ipratropium 1 amp 03/15/17 04:57 03/15/17 05:27 Duoneb - NEB 1 amp Q4H PRN Administration Apixaban 5 mg 03/15/17 10:00 03/15/17 14:15 Eliquis - PO 5 mg BID LISA Administration Atorvastatin Calcium 20 mg 03/15/17 22:00 Lipitor - PO HS LISA Azithromycin 500 mg 03/15/17 14:15 Zithromax - PO DAILY LISA Ceftriaxone Sodium 1 gm 03/15/17 10:00 03/15/17 10:32 Rocephin 1gm Ivpb (Pre-Docked) IVPB 1 gm DAILY LISA Administration Diltiazem HCl 180 mg 03/15/17 10:00 03/15/17 10:32 Cardizem Cd - PO 180 mg DAILY LISA Administration Gabapentin 100 mg 03/15/17 06:00 03/15/17 14:15 Neurontin - PO 100 mg TID LISA Administration Latanoprost 1 drop 03/15/17 22:00 Xalatan 0.005% Eye Drops - OU HS LISA Methylprednisolone Sodium Succinate 60 mg 03/15/17 09:00 03/15/17 09:11 Solu-Medrol - IVPB 60 mg Q6H-IV LISA Administration Pantoprazole Sodium 40 mg 03/15/17 10:00 03/15/17 10:32 Protonix - PO 40 mg DAILY LISA Administration
[2017-03-15] MEDS: AZITHROMYCIN 250 MG TABLET (FP) PO SCH (15:39)
[2017-03-15] MEDS: ATORVASTATIN CA 20 MG TABLET (FP) PO SCH (22:18)
[2017-03-15] MEDS: LATANOPROST 0.005% OPHTH SOLN 2.5ML BOTTLE OU SCH (23:00)
[2017-03-16] MEDS ORDERED: PT OWN MED DRAWER 7, Y5N ONE (01:32)
[2017-03-16] MEDS: ALBUTEROL SO4 2.5/IPRATROPIUM 0.5 INH SOL 3 ML VIAL.NEB. NEB PRN ×3 (01:45→22:02)
[2017-03-16] MEDS: methylPREDNISolone NA SUCC 125 MG/2 ML VIAL IVPB SCH ×4 (02:08→21:48)
[2017-03-16] MEDS: ACETAMINOPHEN 325 MG TABLET (FP) PO PRN (03:47)
[2017-03-16] MEDS: GABAPENTIN 100 MG CAPSULE (FP) PO SCH ×3 (06:29→21:49)
[2017-03-16 08:11] LABS: MCH 20.1 pg (25.7-33.7); MCHC 30.5 g/dl (32.0-36.0); MEAN CELL VOLUME 65.9 fl (80-96); PLATELET COUNT 180 K/MM3 (134-434); WHITE BLOOD COUNT 9.5 K/mm3 (4.0-10.0)
[2017-03-16 08:42] LABS: ALBUMIN 2.8 g/dl (3.4-5.0); ANION GAP 10 (8-16); CALCIUM 9.5 mg/dL (8.5-10.1); CO2 35 mmol/L (21-32); GLUCOSE,RANDOM 181 mg/dL (74-106)
[2017-03-16 08:45] LABS: ALK PHOS 101 U/L (45-117); BILIRUBIN,TOTAL 0.4 mg/dL (0.2-1.0); CREATININE 0.6 mg/dL (0.55-1.02); SGOT/AST 17 U/L (15-37); SGPT/ALT 21 U/L (12-78); TOT PROT 6.9 g/dl (6.4-8.2)
[2017-03-16] MEDS: cefTRIAXone 1 GM/50 ML BAG (PRE-DOCKED) IVPB SCH (09:44)
[2017-03-16] MEDS: PANTOPRAZOLE 40 MG TABLET (FP) PO SCH (11:39)
[2017-03-16] MEDS: AZITHROMYCIN 250 MG TABLET (FP) PO SCH (11:40)
[2017-03-16] MEDS: APIXABAN 5 MG TABLET PO SCH ×2 (11:40→21:49)
--- NOTE | 2017-03-16 14:26 | PN ---
Progress Note (short form) - Note Progress Note: PULMONARY VSS/AFEBRILE SUBJECTIVE IMPROVEMENT OOB TO CHAIR ANICTERIC SCATTERED B/L RHONCHI AND WHEEZES S1S2 BS+ 1+ EDEMA B/L LABS/MEDS/IMAGING/MICRO/NOTES REVIEWED Acute COPD Exacerbation Infiltrates have a nodular appearance Sarcoidosis Chronic Hypoxic Respiratory Failure Lactic Acidosis Pulmonary HTN HTN - IV antibiotics - f/u cultures - IV medrol - inhaled bronchodilators - O2 to keep SpO2 >90% - IVF - trend lactate - will need outpt PFTs and outpt f/u of imaging - Ct chest no contrast Linda PATEL MD
--- NOTE | 2017-03-16 15:45 | PN ---
Progress Note, Physician History of Present Illness: patient stable says she is feeling slightly better c/o is that her nails are cracking - Current Medication List Current Medications: Active Medications Acetaminophen (Tylenol -) 650 mg PO Q6H PRN PRN Reason: FEVER OR PAIN Last Admin: 03/16/17 03:47 Dose: 650 mg Albuterol/Ipratropium (Duoneb -) 1 amp NEB Q4H PRN Last Admin: 03/16/17 05:42 Dose: 1 amp Apixaban (Eliquis -) [address] [facility] Last Admin: 03/16/17 11:40 Dose: 5 mg Atorvastatin Calcium (Lipitor -) [address] [facility] Last Admin: 03/15/17 22:18 Dose: 20 mg Azithromycin (Zithromax -) [address] [facility] Last Admin: 03/16/17 11:40 Dose: 500 mg Ceftriaxone Sodium (Rocephin 1gm Ivpb (Pre-Docked)) [address] [facility] Last Admin: 03/16/17 09:44 Dose: 1 gm Diltiazem HCl (Cardizem Cd -) [address] [facility] Last Admin: 03/16/17 11:38 Dose: 180 mg Gabapentin (Neurontin -) [address] [facility] Last Admin: 03/16/17 13:54 Dose: 100 mg Latanoprost (Xalatan 0.005% Eye Drops -) [address] [facility] Last Admin: 03/15/17 23:00 Dose: 1 drop Methylprednisolone Sodium Succinate (Solu-Medrol -) 60 [address] IVPB Q6H-IV [facility] Last Admin: 03/16/17 15:32 Dose: 60 mg Pantoprazole Sodium (Protonix -) [address] [facility] Last Admin: 03/16/17 11:39 Dose: 40 mg - Objective Vital Signs: Vital Signs Temperature 98.0 F 03/16/17 14:00 Pulse Rate 79 03/16/17 14:00 Respiratory Rate 18 03/16/17 14:00 Blood Pressure 120/67 03/16/17 14:00 O2 Sat by Pulse Oximetry (%) 98 03/16/17 09:00 Constitutional: Yes: Calm, Mild Distress Cardiovascular: Yes: Regular Rate and Rhythm Respiratory: Yes: Diminished, On Nasal O2, Rhonchi Gastrointestinal: Yes: Normal Bowel Sounds, Soft Extremities: Yes: Other Edema: LLE: Trace, RLE: Trace Neurological: Yes: Alert, Oriented Psychiatric: Yes: Alert, Oriented Labs: CBC, BMP 03/16/17 07:17 03/16/17 07:17 INR, PTT INR 1.91 (0.82-1.09) H D 03/14/17 19:30 Assessment/Plan Problem List - Problems (1) Acute exacerbation of chronic obstructive pulmonary disease Code(s): J44.1 - CHRONIC OBSTRUCTIVE PULMONARY DISEASE W (ACUTE) EXACERBATION (2) Chronic respiratory failure with hypoxia Code(s): J96.11 - CHRONIC RESPIRATORY FAILURE WITH HYPOXIA (3) Sarcoidosis Code(s): D86.9 - SARCOIDOSIS, UNSPECIFIED (4) Hypertension Code(s): I10 - ESSENTIAL (PRIMARY) HYPERTENSION Qualifiers: Hypertension type: essential hypertension Qualified Code(s): I10 - Essential (primary) hypertension (5) Pneumonia Code(s): J18.9 - PNEUMONIA, UNSPECIFIED ORGANISM Qualifiers: Pneumonia type: due to unspecified organism Laterality: unspecified laterality Lung location: lower lobe of lung Qualified Code(s): J18.1 - Lobar pneumonia, unspecified organism plan iconitnue current mgmt will do ct scan tomorrow rest as per primary incentive radha
--- NOTE | 2017-03-16 17:40 | PN ---
Progress Note, Physician - Current Medication List Current Medications: Active Medications Acetaminophen (Tylenol -) 650 mg PO Q6H PRN PRN Reason: FEVER OR PAIN Last Admin: 03/16/17 03:47 Dose: 650 mg Albuterol/Ipratropium (Duoneb -) 1 amp NEB Q4H PRN Last Admin: 03/16/17 05:42 Dose: 1 amp Apixaban (Eliquis -) 5 mg PO BID [facility] Last Admin: 03/16/17 11:40 Dose: 5 mg Atorvastatin Calcium (Lipitor -) 20 mg PO HS [facility] Last Admin: 03/15/17 22:18 Dose: 20 mg Azithromycin (Zithromax -) 500 mg PO DAILY [facility] Last Admin: 03/16/17 11:40 Dose: 500 mg Ceftriaxone Sodium (Rocephin 1gm Ivpb (Pre-Docked)) 1 gm IVPB DAILY [facility] Last Admin: 03/16/17 09:44 Dose: 1 gm Diltiazem HCl (Cardizem Cd -) 180 mg PO DAILY [facility] Last Admin: 03/16/17 11:38 Dose: 180 mg Gabapentin (Neurontin -) 100 mg PO TID [facility] Last Admin: 03/16/17 13:54 Dose: 100 mg Latanoprost (Xalatan 0.005% Eye Drops -) 1 drop OU [facility] Last Admin: 03/15/17 23:00 Dose: 1 drop Methylprednisolone Sodium Succinate (Solu-Medrol -) 60 mg IVPB Q6H-IV [facility] Last Admin: 03/16/17 15:32 Dose: 60 mg Pantoprazole Sodium (Protonix -) 40 mg PO DAILY [facility] Last Admin: 03/16/17 11:39 Dose: 40 mg - Objective Vital Signs: Vital Signs Temperature 98.0 F 03/16/17 14:00 Pulse Rate 79 03/16/17 14:00 Respiratory Rate 18 03/16/17 14:00 Blood Pressure 120/67 03/16/17 14:00 O2 Sat by Pulse Oximetry (%) 98 03/16/17 09:00 Constitutional: Yes: No Distress HENT: Yes: Atraumatic Neck: Yes: Supple Cardiovascular: Yes: Regular Rate and Rhythm Respiratory: Yes: Rhonchi, Wheezes Gastrointestinal: Yes: Normal Bowel Sounds Extremities: Yes: WNL Neurological: Yes: Alert, Oriented Labs: CBC, BMP 03/16/17 07:17 03/16/17 07:17 INR, PTT INR 1.91 (0.82-1.09) H D 03/14/17 19:30 Problem List - Problems (1) Acute exacerbation of chronic obstructive pulmonary disease Assessment/Plan: iv steroids duo nebs incentive spirometry Code(s): J44.1 - CHRONIC OBSTRUCTIVE PULMONARY DISEASE W (ACUTE) EXACERBATION (2) Fever Assessment/Plan: bcx ucx on abx Code(s): R50.9 - FEVER, UNSPECIFIED Qualifiers: Fever type: due to other condition Qualified Code(s): R50.81 - Fever presenting with conditions classified elsewhere (3) Pneumonia Assessment/Plan: on abx Code(s): J18.9 - PNEUMONIA, UNSPECIFIED ORGANISM Qualifiers: Pneumonia type: due to unspecified organism Laterality: unspecified laterality Lung location: lower lobe of lung Qualified Code(s): J18.1 - Lobar pneumonia, unspecified organism (4) Chest tightness Code(s): R07.89 - OTHER CHEST PAIN (5) Coronary artery disease Assessment/Plan: troponin negative Code(s): I25.10 - ATHSCL HEART DISEASE OF [place] CORONARY ARTERY W/O ANG PCTRS (6) Hypertension Code(s): I10 - ESSENTIAL (PRIMARY) HYPERTENSION Qualifiers: Hypertension type: essential hypertension Qualified Code(s): I10 - Essential (primary) hypertension Assessment/Plan Laboratory Tests 03/14/17 03/14/17 03/14/17 19:30 19:30 19:30 WBC 10.3 H D RBC 5.02 Hgb 10.0 L Hct 33.1 MCV 65.9 L MCHC 30.1 L RDW 17.5 H Plt Count 159 MPV 9.7 Neutrophils % 73.6 D Lymphocytes % 14.2 D Monocytes % 11.6 H Eosinophils % 0.2 D Basophils % 0.4 Platelet Estimate Decreased Platelet Comment No clumping noted Polychromasia 1+ Hypochromic-Microcytic 2+ Anisocytosis 1+ Microcytosis 1+ INR 1.91 H D PTT (Actin FS) 43.0 H Sodium 139 Potassium 3.9 Chloride 96 L Carbon Dioxide 37 H Anion Gap 6 L BUN 9 Creatinine 0.7 Creat Clearance w eGFR > 60 Random Glucose 131 H Lactic Acid Calcium 8.9 Total Bilirubin 0.9 D AST 21 ALT 17 Alkaline Phosphatase 120 H Creatine Kinase 79 Troponin I < 0.02 B-Natriuretic Peptide Total Protein 7.4 Albumin 3.1 L Urine Color Urine Appearance Urine pH Ur Specific [place] Urine Protein Urine Glucose (UA) Urine Ketones Urine Blood Urine Nitrite Urine Bilirubin Urine Urobilinogen Ur Leukocyte Esterase Urine RBC Urine WBC Ur Epithelial Cells Blood Type Antibody Screen Spec Expiration Date 03/14/17 03/14/17 03/14/17 19:30 19:30 20:15 WBC RBC Hgb Hct MCV MCHC RDW Plt Count MPV Neutrophils % Lymphocytes % Monocytes % Eosinophils % Basophils % Platelet Estimate Platelet Comment Polychromasia Hypochromic-Microcytic Anisocytosis Microcytosis INR PTT (Actin FS) Sodium Potassium Chloride Carbon Dioxide Anion Gap BUN Creatinine Creat Clearance w eGFR Random Glucose Lactic Acid 2.7 H* Calcium Total Bilirubin AST ALT Alkaline Phosphatase Creatine Kinase Troponin I B-Natriuretic Peptide Total Protein Albumin Urine Color Yellow Urine Appearance Clear Urine pH 6.0 Ur Specific [place] 1.015 Urine Protein Negative Urine Glucose (UA) Negative Urine Ketones Negative Urine Blood Negative Urine Nitrite Negative Urine Bilirubin Negative Urine Urobilinogen 4.0 e.u/dl H Ur Leukocyte Esterase Trace H D Urine RBC 3 Urine WBC 1 Ur Epithelial Cells Rare Blood Type B POSITIVE Antibody Screen Cancelled Spec Expiration Date Cancelled 03/14/17 03/14/17 03/14/17 20:20 22:09 23:00 WBC RBC Hgb Hct MCV MCHC RDW Plt Count MPV Neutrophils % Lymphocytes % Monocytes % Eosinophils % Basophils % Platelet Estimate Platelet Comment Polychromasia Hypochromic-Microcytic Anisocytosis Microcytosis INR PTT (Actin FS) Sodium Potassium Chloride Carbon Dioxide Anion Gap BUN Creatinine Creat Clearance w eGFR Random Glucose Lactic Acid 3.8 H* Calcium Total Bilirubin AST ALT Alkaline Phosphatase Creatine Kinase Troponin I B-Natriuretic Peptide 1463.90 H Total Protein Albumin Urine Color Urine Appearance Urine pH Ur Specific [place] Urine Protein Urine Glucose (UA) Urine Ketones Urine Blood Urine Nitrite Urine Bilirubin Urine Urobilinogen Ur Leukocyte Esterase Urine RBC Urine WBC Ur Epithelial Cells Blood Type Cancelled Antibody Screen Cancelled Spec Expiration Date Cancelled 03/15/17 00:15 WBC RBC Hgb Hct MCV MCHC RDW Plt Count MPV Neutrophils % Lymphocytes % Monocytes % Eosinophils % Basophils % Platelet Estimate Platelet Comment Polychromasia Hypochromic-Microcytic Anisocytosis Microcytosis INR PTT (Actin FS) Sodium Potassium Chloride Carbon Dioxide Anion Gap BUN Creatinine Creat Clearance w eGFR Random Glucose Lactic Acid Calcium Total Bilirubin AST ALT Alkaline Phosphatase Creatine Kinase 62 Troponin I < 0.02 B-Natriuretic Peptide Total Protein Albumin Urine Color Urine Appearance Urine pH Ur Specific [place] Urine Protein Urine Glucose (UA) Urine Ketones Urine Blood Urine Nitrite Urine Bilirubin Urine Urobilinogen Ur Leukocyte Esterase Urine RBC Urine WBC Ur Epithelial Cells Blood Type Antibody Screen Spec Expiration Date Active Medications Generic Name Dose Route Start Last Admin Trade Name Freq PRN Reason Stop Dose Admin Acetaminophen 650 mg 03/15/17 04:57 Tylenol - PO Q6H PRN FEVER OR PAIN Albuterol/Ipratropium 1 amp 03/15/17 04:57 03/15/17 05:27 Duoneb - NEB 1 amp Q4H PRN Administration Apixaban 5 mg 03/15/17 10:00 03/15/17 14:15 Eliquis - PO 5 mg BID LISA Administration Atorvastatin Calcium 20 mg 03/15/17 22:00 Lipitor - PO HS LISA Azithromycin 500 mg 03/15/17 14:15 Zithromax - PO DAILY [facility] Ceftriaxone Sodium 1 gm 03/15/17 10:00 03/15/17 10:32 Rocephin 1gm Ivpb (Pre-Docked) IVPB 1 gm DAILY LISA Administration Diltiazem HCl 180 mg 03/15/17 10:00 03/15/17 10:32 Cardizem Cd - PO 180 mg DAILY LISA Administration Gabapentin 100 mg 03/15/17 06:00 03/15/17 14:15 Neurontin - PO 100 mg TID LISA Administration Latanoprost 1 drop 03/15/17 22:00 Xalatan 0.005% Eye Drops - OU HS LISA Methylprednisolone Sodium Succinate 60 mg 03/15/17 09:00 03/15/17 09:11 Solu-Medrol - IVPB 60 mg Q6H-IV LISA Administration Pantoprazole Sodium 40 mg 03/15/17 10:00 03/15/17 10:32 Protonix - PO 40 mg DAILY LISA Administration
[2017-03-16] MEDS: LATANOPROST 0.005% OPHTH SOLN 2.5ML BOTTLE OU SCH (21:49)
[2017-03-16] MEDS: ATORVASTATIN CA 20 MG TABLET (FP) PO SCH (21:49)
[2017-03-17] MEDS: guaiFENesin/CODEINE 5 ML UNIT-DOSE CUPS PO PRN (01:04)
[2017-03-17] MEDS: methylPREDNISolone NA SUCC 125 MG/2 ML VIAL IVPB SCH ×2 (02:30→08:17)
[2017-03-17] MEDS: ALBUTEROL SO4 2.5/IPRATROPIUM 0.5 INH SOL 3 ML VIAL.NEB. NEB PRN (05:37)
[2017-03-17] MEDS: GABAPENTIN 100 MG CAPSULE (FP) PO SCH ×3 (05:56→21:57)
[2017-03-17] MEDS: ACETAMINOPHEN 325 MG TABLET (FP) PO PRN ×2 (05:56→18:40)
[2017-03-17] MEDS ORDERED: PT OWN MED DRAWER 7, Y5N ONE ×2 (09:57→21:41)
[2017-03-17] MEDS: cefTRIAXone 1 GM/50 ML BAG (PRE-DOCKED) IVPB SCH (10:00)
[2017-03-17] MEDS: AZITHROMYCIN 250 MG TABLET (FP) PO SCH (10:00)
[2017-03-17] MEDS: APIXABAN 5 MG TABLET PO SCH ×2 (10:01→21:57)
[2017-03-17] MEDS: PANTOPRAZOLE 40 MG TABLET (FP) PO SCH (10:01)
--- NOTE | 2017-03-17 10:08 | PN ---
Progress Note (short form) - Note Progress Note: Resting in NAD. OOB to chair on NC O2. (+) cough and some pleuritic CP. CT : multilobar infiltrates/effusions/0.7cm nodule likely inflammatory Intake & Output 03/14/17 03/15/17 03/16/17 03/17/17 23:59 23:59 23:59 23:59 Intake Total 2723 360 4657 300 Balance 1442 284 1663 300 Weight 191 lb 1 oz Last Vital Signs Temp Pulse Resp BP Pulse Ox 97.8 F 101 H 20 153/70 98 03/17/17 09:02 03/17/17 09:02 03/17/17 09:02 03/17/17 09:02 03/16/17 21:00 Active Medications Acetaminophen (Tylenol -) 650 mg PO Q6H PRN PRN Reason: FEVER OR PAIN Last Admin: 03/17/17 05:56 Dose: 650 mg Albuterol/Ipratropium (Duoneb -) 1 amp NEB Q4H PRN Last Admin: 03/17/17 05:37 Dose: 1 amp Apixaban (Eliquis -) 5 mg PO BID [facility] Last Admin: 03/17/17 10:01 Dose: 5 mg Atorvastatin Calcium (Lipitor -) 20 mg PO HS [facility] Last Admin: 03/16/17 21:49 Dose: 20 mg Azithromycin (Zithromax -) 500 mg PO DAILY [facility] Last Admin: 03/17/17 10:00 Dose: 500 mg Ceftriaxone Sodium (Rocephin 1gm Ivpb (Pre-Docked)) 1 gm IVPB DAILY [facility] Last Admin: 03/17/17 10:00 Dose: 1 gm Diltiazem HCl (Cardizem Cd -) 180 mg PO DAILY [facility] Last Admin: 03/17/17 10:00 Dose: 180 mg Gabapentin (Neurontin -) 100 mg PO TID [facility] Last Admin: 03/17/17 05:56 Dose: 100 mg Guaifenesin/Codeine Phosphate (Robitussin Ac -) 5 ml PO Q6H PRN Last Admin: 03/17/17 01:04 Dose: 5 ml Latanoprost (Xalatan 0.005% Eye Drops -) 1 drop OU HS [facility] Last Admin: 03/16/17 21:49 Dose: 1 drop Methylprednisolone Sodium Succinate (Solu-Medrol -) 60 mg IVPB Q6H-IV [facility] Last Admin: 03/17/17 08:17 Dose: 60 mg Pantoprazole Sodium (Protonix -) 40 mg PO DAILY [facility] Last Admin: 03/17/17 10:01 Dose: 40 mg Constitutional: Yes: NAD Eyes: Yes: Conjunctiva Clear, EOM Intact HENT: Yes: Atraumatic, Normocephalic Neck: Yes: Supple, Trachea Midline Cardiovascular: Yes: Regular Rate and Rhythm Respiratory: Yes: Scattered Rhonchi, No Wheezes ...Clubbing: No Gastrointestinal: Yes: Normal Bowel Sounds, Soft. No: Tenderness Edema: Yes Neurological: Yes: Alert, Oriented Problem List - Problems (1) Acute exacerbation of chronic obstructive pulmonary disease Code(s): J44.1 - CHRONIC OBSTRUCTIVE PULMONARY DISEASE W (ACUTE) EXACERBATION (2) Chronic respiratory failure with hypoxia Code(s): J96.11 - CHRONIC RESPIRATORY FAILURE WITH HYPOXIA (3) Sarcoidosis Code(s): D86.9 - SARCOIDOSIS, UNSPECIFIED (4) Hypertension Code(s): I10 - ESSENTIAL (PRIMARY) HYPERTENSION Qualifiers: Hypertension type: essential hypertension Qualified Code(s): I10 - Essential (primary) hypertension (5) Pneumonia Code(s): J18.9 - PNEUMONIA, UNSPECIFIED ORGANISM Qualifiers: Pneumonia type: due to unspecified organism Laterality: unspecified laterality Lung location: lower lobe of lung Qualified Code(s): J18.1 - Lobar pneumonia, unspecified organism Assessment/Plan Acute COPD Exacerbation Bilateral Pneumonia Sarcoidosis Chronic Hypoxic Respiratory Failure Lactic Acidosis Pulmonary HTN HTN - IV antibiotics - Check cultures - Taper IV medrol - inhaled bronchodilators - O2 to keep SpO2 >90% - will need outpatient PFTs and outpatient f/u of CT imaging Dr [place]inas
--- NOTE | 2017-03-17 14:23 | PN ---
Progress Note, Physician History of Present Illness: patient stable says she is feeling slightly better back pain is the complaints bilateral flank says breathing is better - Current Medication List Current Medications: Active Medications Acetaminophen (Tylenol -) 650 mg PO Q6H PRN PRN Reason: FEVER OR PAIN Last Admin: 03/17/17 05:56 Dose: 650 mg Albuterol/Ipratropium (Duoneb -) 1 amp NEB Q4H PRN Last Admin: 03/17/17 05:37 Dose: 1 amp Apixaban (Eliquis -) 5 mg PO BID [facility] Last Admin: 03/17/17 10:01 Dose: 5 mg Atorvastatin Calcium (Lipitor -) 20 mg PO HS [facility] Last Admin: 03/16/17 21:49 Dose: 20 mg Azithromycin (Zithromax -) 500 mg PO DAILY [facility] Last Admin: 03/17/17 10:00 Dose: 500 mg Ceftriaxone Sodium (Rocephin 1gm Ivpb (Pre-Docked)) 1 gm IVPB DAILY [facility] Last Admin: 03/17/17 10:00 Dose: 1 gm Diltiazem HCl (Cardizem Cd -) 180 mg PO DAILY [facility] Last Admin: 03/17/17 10:00 Dose: 180 mg Gabapentin (Neurontin -) 100 mg PO TID [facility] Last Admin: 03/17/17 14:05 Dose: 100 mg Guaifenesin/Codeine Phosphate (Robitussin Ac -) 5 ml PO Q6H PRN Last Admin: 03/17/17 01:04 Dose: 5 ml Latanoprost (Xalatan 0.005% Eye Drops -) 1 drop OU HS [facility] Last Admin: 03/16/17 21:49 Dose: 1 drop Methylprednisolone Sodium Succinate (Solu-Medrol -) 80 mg IVPB Q8H-IV [facility] Pantoprazole Sodium (Protonix -) 40 mg PO DAILY [facility] Last Admin: 03/17/17 10:01 Dose: 40 mg - Objective Vital Signs: Vital Signs Temperature 97.8 F 03/17/17 09:02 Pulse Rate 101 H 03/17/17 09:02 Respiratory Rate 20 03/17/17 09:02 Blood Pressure 153/70 03/17/17 09:02 O2 Sat by Pulse Oximetry (%) 98 03/16/17 21:00 Constitutional: Yes: No Distress, Calm Respiratory: Yes: Cough, On Nasal O2, Rhonchi Gastrointestinal: Yes: Normal Bowel Sounds, Soft Musculoskeletal: Yes: Back Pain Extremities: Yes: WNL Neurological: Yes: Alert, Oriented Psychiatric: Yes: Alert, Oriented Labs: CBC, BMP 03/16/17 07:17 03/16/17 07:17 INR, PTT INR 1.91 (0.82-1.09) H D 03/14/17 19:30 Assessment/Plan Problem List - Problems (1) Acute exacerbation of chronic obstructive pulmonary disease Code(s): J44.1 - CHRONIC OBSTRUCTIVE PULMONARY DISEASE W (ACUTE) EXACERBATION (2) Chronic respiratory failure with hypoxia Code(s): J96.11 - CHRONIC RESPIRATORY FAILURE WITH HYPOXIA (3) Sarcoidosis Code(s): D86.9 - SARCOIDOSIS, UNSPECIFIED (4) Hypertension Code(s): I10 - ESSENTIAL (PRIMARY) HYPERTENSION Qualifiers: Hypertension type: essential hypertension Qualified Code(s): I10 - Essential (primary) hypertension (5) Pneumonia Code(s): J18.9 - PNEUMONIA, UNSPECIFIED ORGANISM Qualifiers: Pneumonia type: due to unspecified organism Laterality: unspecified laterality Lung location: lower lobe of lung Qualified Code(s): J18.1 - Lobar pneumonia, unspecified organism plan continue abx will see how patient does tomorrow rest continue current mgmt worried that patient is developing pleuritic type of pain will get a ct of the chest
[2017-03-17] MEDS ORDERED: methylPREDNISolone NA SUCC 125 MG/2 ML VIAL IVPB SCH (18:00)
--- NOTE | 2017-03-17 19:43 | PN ---
Progress Note, Physician History of Present Illness: back pain - Current Medication List Current Medications: Active Medications Acetaminophen (Tylenol -) 650 mg PO Q6H PRN PRN Reason: FEVER OR PAIN Last Admin: 03/17/17 18:40 Dose: 650 mg Albuterol/Ipratropium (Duoneb -) 1 amp NEB Q4H PRN Last Admin: 03/17/17 05:37 Dose: 1 amp Apixaban (Eliquis -) 5 mg PO BID [facility] Last Admin: 03/17/17 10:01 Dose: 5 mg Atorvastatin Calcium (Lipitor -) 20 mg PO HS [facility] Last Admin: 03/16/17 21:49 Dose: 20 mg Azithromycin (Zithromax -) 500 mg PO DAILY [facility] Last Admin: 03/17/17 10:00 Dose: 500 mg Ceftriaxone Sodium (Rocephin 1gm Ivpb (Pre-Docked)) 1 gm IVPB DAILY [facility] Last Admin: 03/17/17 10:00 Dose: 1 gm Diltiazem HCl (Cardizem Cd -) 180 mg PO DAILY [facility] Last Admin: 03/17/17 10:00 Dose: 180 mg Gabapentin (Neurontin -) 100 mg PO TID [facility] Last Admin: 03/17/17 14:05 Dose: 100 mg Guaifenesin/Codeine Phosphate (Robitussin Ac -) 5 ml PO Q6H PRN Last Admin: 03/17/17 01:04 Dose: 5 ml Latanoprost (Xalatan 0.005% Eye Drops -) 1 drop OU HS [facility] Last Admin: 03/16/17 21:49 Dose: 1 drop Methylprednisolone Sodium Succinate (Solu-Medrol -) 60 mg IVPB Q8H-IV [facility] Pantoprazole Sodium (Protonix -) 40 mg PO DAILY [facility] Last Admin: 03/17/17 10:01 Dose: 40 mg - Objective Vital Signs: Vital Signs Temperature 97.9 F 03/17/17 14:00 Pulse Rate 77 03/17/17 14:00 Respiratory Rate 18 03/17/17 14:00 Blood Pressure 153/70 03/17/17 09:02 O2 Sat by Pulse Oximetry (%) 97 03/17/17 09:00 HENT: Yes: Atraumatic Neck: Yes: Supple Cardiovascular: Yes: Regular Rate and Rhythm Respiratory: Yes: Rhonchi Gastrointestinal: Yes: Normal Bowel Sounds Musculoskeletal: Yes: Back Pain Extremities: Yes: WNL Neurological: Yes: Alert, Oriented Labs: CBC, BMP 03/16/17 07:17 03/16/17 07:17 INR, PTT INR 1.91 (0.82-1.09) H D 03/14/17 19:30 Problem List - Problems (1) Acute exacerbation of chronic obstructive pulmonary disease Assessment/Plan: iv steroids duo nebs incentive spirometry Code(s): J44.1 - CHRONIC OBSTRUCTIVE PULMONARY DISEASE W (ACUTE) EXACERBATION (2) Fever Assessment/Plan: bcx...negative ucx...contaminated on abx no fever Code(s): R50.9 - FEVER, UNSPECIFIED Qualifiers: Fever type: due to other condition Qualified Code(s): R50.81 - Fever presenting with conditions classified elsewhere (3) Pneumonia Assessment/Plan: on abx Code(s): J18.9 - PNEUMONIA, UNSPECIFIED ORGANISM Qualifiers: Pneumonia type: due to unspecified organism Laterality: unspecified laterality Lung location: lower lobe of lung Qualified Code(s): J18.1 - Lobar pneumonia, unspecified organism (4) Chest tightness Code(s): R07.89 - OTHER CHEST PAIN (5) Coronary artery disease Assessment/Plan: troponin negative Code(s): I25.10 - ATHSCL HEART DISEASE OF [place] CORONARY ARTERY W/O ANG PCTRS (6) Hypertension Assessment/Plan: stable on meds Code(s): I10 - ESSENTIAL (PRIMARY) HYPERTENSION Qualifiers: Hypertension type: essential hypertension Qualified Code(s): I10 - Essential (primary) hypertension (7) Back pain Assessment/Plan: musculoskeletal prn tylenol Code(s): M54.9 - DORSALGIA, UNSPECIFIED
[2017-03-17] MEDS: traMADol HCL 50 MG TABLET PO PRN (21:57)
[2017-03-17] MEDS: ATORVASTATIN CA 20 MG TABLET (FP) PO SCH (21:57)
[2017-03-17] MEDS: LATANOPROST 0.005% OPHTH SOLN 2.5ML BOTTLE OU SCH (22:01)
[2017-03-18] MEDS: methylPREDNISolone NA SUCC 125 MG/2 ML VIAL IVPB SCH ×2 (02:54→09:47)
[2017-03-18] MEDS ORDERED: methylPREDNISolone NA SUCC 125 MG/2 ML VIAL ONE (02:57)
[2017-03-18] MEDS: ACETAMINOPHEN 325 MG TABLET (FP) PO PRN (03:11)
[2017-03-18] MEDS: GABAPENTIN 100 MG CAPSULE (FP) PO SCH ×3 (05:37→22:22)
[2017-03-18] MEDS ORDERED: PT OWN MED DRAWER 7, Y5N ONE ×3 (09:42→21:22)
[2017-03-18] MEDS: PANTOPRAZOLE 40 MG TABLET (FP) PO SCH (09:48)
[2017-03-18] MEDS: APIXABAN 5 MG TABLET PO SCH ×2 (09:48→22:22)
[2017-03-18] MEDS: AZITHROMYCIN 250 MG TABLET (FP) PO SCH (09:50)
[2017-03-18] MEDS: cefTRIAXone 1 GM/50 ML BAG (PRE-DOCKED) IVPB SCH (09:51)
--- NOTE | 2017-03-18 12:37 | PN ---
Progress Note (short form) - Note Progress Note: PULMONARY VSS/AFEBRILE BACK PAIN ANICTERIC SCATTERED B/L RHONCHI AND WHEEZES S1S2 BS+ 1+ EDEMA B/L LABS/MEDS/IMAGING/MICRO/NOTES/CT CHEST REVIEWED Acute COPD Exacerbation Infiltrates have a nodular appearance Sarcoidosis Chronic Hypoxic Respiratory Failure Lactic Acidosis Pulmonary HTN HTN - IV antibiotics - f/u cultures - IV medrol tapered - inhaled bronchodilators - O2 to keep SpO2 >90% - IVF as needed - will need outpt PFTs and outpt f/u of imaging Linda PATEL MD
--- NOTE | 2017-03-18 13:01 | PN ---
Progress Note, Physician History of Present Illness: still with lot of back pain no other issues says breathing better - Current Medication List Current Medications: Active Medications Acetaminophen (Tylenol -) 650 mg PO Q6H PRN PRN Reason: FEVER OR PAIN Last Admin: 03/18/17 03:11 Dose: 650 mg Albuterol/Ipratropium (Duoneb -) 1 amp NEB Q4H PRN Last Admin: 03/17/17 05:37 Dose: 1 amp Apixaban (Eliquis -) 5 mg PO BID [facility] Last Admin: 03/18/17 09:48 Dose: 5 mg Atorvastatin Calcium (Lipitor -) 20 mg PO HS [facility] Last Admin: 03/17/17 21:57 Dose: 20 mg Azithromycin (Zithromax -) 500 mg PO DAILY [facility] Last Admin: 03/18/17 09:50 Dose: 500 mg Ceftriaxone Sodium (Rocephin 1gm Ivpb (Pre-Docked)) 1 gm IVPB DAILY [facility] Last Admin: 03/18/17 09:51 Dose: 1 gm Diltiazem HCl (Cardizem Cd -) 180 mg PO DAILY [facility] Last Admin: 03/18/17 09:48 Dose: 180 mg Gabapentin (Neurontin -) 100 mg PO TID [facility] Last Admin: 03/18/17 05:37 Dose: 100 mg Guaifenesin/Codeine Phosphate (Robitussin Ac -) 5 ml PO Q6H PRN Last Admin: 03/17/17 01:04 Dose: 5 ml Latanoprost (Xalatan 0.005% Eye Drops -) 1 drop OU HS [facility] Last Admin: 03/17/17 22:01 Dose: 1 drop Methylprednisolone Sodium Succinate (Solu-Medrol -) 40 mg IVPB Q8H-IV [facility] Pantoprazole Sodium (Protonix -) 40 mg PO DAILY [facility] Last Admin: 03/18/17 09:48 Dose: 40 mg Tramadol HCl (Ultram -) 50 mg PO Q6H PRN PRN Reason: PAIN Last Admin: 03/17/17 21:57 Dose: 50 mg - Objective Vital Signs: Vital Signs Temperature 97.5 F L 03/18/17 08:53 Pulse Rate 81 03/18/17 08:53 Respiratory Rate 18 03/18/17 08:53 Blood Pressure 147/66 03/18/17 08:53 O2 Sat by Pulse Oximetry (%) 98 03/18/17 09:00 Constitutional: Yes: Calm, Mild Distress Cardiovascular: Yes: Regular Rate and Rhythm Respiratory: Yes: Rhonchi, Other Gastrointestinal: Yes: Normal Bowel Sounds, Soft Musculoskeletal: Yes: WNL Extremities: Yes: WNL Neurological: Yes: Alert, Oriented Psychiatric: Yes: Alert, Oriented Labs: CBC, BMP 03/16/17 07:17 03/16/17 07:17 INR, PTT INR 1.91 (0.82-1.09) H D 03/14/17 19:30 - ....Imaging Cat Scan: Report Reviewed, Image Reviewed Assessment/Plan Problem List - Problems (1) Acute exacerbation of chronic obstructive pulmonary disease Code(s): J44.1 - CHRONIC OBSTRUCTIVE PULMONARY DISEASE W (ACUTE) EXACERBATION (2) Chronic respiratory failure with hypoxia Code(s): J96.11 - CHRONIC RESPIRATORY FAILURE WITH HYPOXIA (3) Sarcoidosis Code(s): D86.9 - SARCOIDOSIS, UNSPECIFIED (4) Hypertension Code(s): I10 - ESSENTIAL (PRIMARY) HYPERTENSION Qualifiers: Hypertension type: essential hypertension Qualified Code(s): I10 - Essential (primary) hypertension (5) Pneumonia Code(s): J18.9 - PNEUMONIA, UNSPECIFIED ORGANISM Qualifiers: Pneumonia type: due to unspecified organism Laterality: unspecified laterality Lung location: lower lobe of lung Qualified Code(s): J18.1 - Lobar pneumonia, unspecified organism plan continue abx ct results noted
[2017-03-18] MEDS: methylPREDNISolone NA SUCC 40 MG/1 ML VIAL IVPB SCH (17:04)
--- NOTE | 2017-03-18 19:01 | PN ---
Progress Note, Physician History of Present Illness: back pain - Current Medication List Current Medications: Active Medications Acetaminophen (Tylenol -) 650 mg PO Q6H PRN PRN Reason: FEVER OR PAIN Last Admin: 03/18/17 03:11 Dose: 650 mg Albuterol/Ipratropium (Duoneb -) 1 amp NEB Q4H PRN Last Admin: 03/17/17 05:37 Dose: 1 amp Apixaban (Eliquis -) 5 mg PO BID [facility] Last Admin: 03/18/17 09:48 Dose: 5 mg Atorvastatin Calcium (Lipitor -) 20 mg PO HS [facility] Last Admin: 03/17/17 21:57 Dose: 20 mg Azithromycin (Zithromax -) 500 mg PO DAILY [facility] Last Admin: 03/18/17 09:50 Dose: 500 mg Ceftriaxone Sodium (Rocephin 1gm Ivpb (Pre-Docked)) 1 gm IVPB DAILY [facility] Last Admin: 03/18/17 09:51 Dose: 1 gm Diltiazem HCl (Cardizem Cd -) 180 mg PO DAILY [facility] Last Admin: 03/18/17 09:48 Dose: 180 mg Gabapentin (Neurontin -) 100 mg PO TID [facility] Last Admin: 03/18/17 14:22 Dose: 100 mg Guaifenesin/Codeine Phosphate (Robitussin Ac -) 5 ml PO Q6H PRN Last Admin: 03/17/17 01:04 Dose: 5 ml Latanoprost (Xalatan 0.005% Eye Drops -) 1 drop OU HS [facility] Last Admin: 03/17/17 22:01 Dose: 1 drop Methylprednisolone Sodium Succinate (Solu-Medrol -) 40 mg IVPB Q8H-IV [facility] Last Admin: 03/18/17 17:04 Dose: 40 mg Pantoprazole Sodium (Protonix -) 40 mg PO DAILY [facility] Last Admin: 03/18/17 09:48 Dose: 40 mg Tramadol HCl (Ultram -) 50 mg PO Q6H PRN PRN Reason: PAIN Last Admin: 03/17/17 21:57 Dose: 50 mg - Objective Vital Signs: Vital Signs Temperature 97.5 F L 03/18/17 15:43 Pulse Rate 79 03/18/17 15:43 Respiratory Rate 20 03/18/17 15:43 Blood Pressure 143/72 03/18/17 15:43 O2 Sat by Pulse Oximetry (%) 98 03/18/17 09:00 Constitutional: Yes: No Distress HENT: Yes: Atraumatic Neck: Yes: Supple Cardiovascular: Yes: Regular Rate and Rhythm Respiratory: Yes: Rhonchi Gastrointestinal: Yes: Normal Bowel Sounds Extremities: Yes: WNL Edema: No Peripheral Pulses WNL: Yes Neurological: Yes: Alert, Oriented Labs: CBC, BMP 03/16/17 07:17 03/16/17 07:17 INR, PTT INR 1.91 (0.82-1.09) H D 03/14/17 19:30 Problem List - Problems (1) Acute exacerbation of chronic obstructive pulmonary disease Assessment/Plan: iv steroids duo nebs incentive spirometry Code(s): J44.1 - CHRONIC OBSTRUCTIVE PULMONARY DISEASE W (ACUTE) EXACERBATION (2) Fever Assessment/Plan: bcx...negative ucx...contaminated on abx no fever Code(s): R50.9 - FEVER, UNSPECIFIED Qualifiers: Fever type: due to other condition Qualified Code(s): R50.81 - Fever presenting with conditions classified elsewhere (3) Pneumonia Assessment/Plan: on abx Code(s): J18.9 - PNEUMONIA, UNSPECIFIED ORGANISM Qualifiers: Pneumonia type: due to unspecified organism Laterality: unspecified laterality Lung location: lower lobe of lung Qualified Code(s): J18.1 - Lobar pneumonia, unspecified organism (4) Chest tightness Code(s): R07.89 - OTHER CHEST PAIN (5) Coronary artery disease Assessment/Plan: troponin negative Code(s): I25.10 - ATHSCL HEART DISEASE OF [place] CORONARY ARTERY W/O ANG PCTRS (6) Hypertension Assessment/Plan: stable on meds Code(s): I10 - ESSENTIAL (PRIMARY) HYPERTENSION Qualifiers: Hypertension type: essential hypertension Qualified Code(s): I10 - Essential (primary) hypertension (7) Back pain Assessment/Plan: musculoskeletal prn tylenol Code(s): M54.9 - DORSALGIA, UNSPECIFIED Assessment/Plan
[2017-03-18] MEDS: ATORVASTATIN CA 20 MG TABLET (FP) PO SCH (22:23)
[2017-03-18] MEDS: LATANOPROST 0.005% OPHTH SOLN 2.5ML BOTTLE OU SCH (22:24)
[2017-03-18] MEDS: ALBUTEROL SO4 2.5/IPRATROPIUM 0.5 INH SOL 3 ML VIAL.NEB. NEB PRN (23:15)
[2017-03-19] MEDS: methylPREDNISolone NA SUCC 40 MG/1 ML VIAL IVPB SCH ×3 (02:46→17:58)
[2017-03-19] MEDS: GABAPENTIN 100 MG CAPSULE (FP) PO SCH ×3 (06:12→21:28)
[2017-03-19] MEDS: ALBUTEROL SO4 2.5/IPRATROPIUM 0.5 INH SOL 3 ML VIAL.NEB. NEB PRN ×2 (06:32→23:25)
[2017-03-19] MEDS ORDERED: PT OWN MED DRAWER 7, Y5N ONE ×3 (06:37→21:24)
[2017-03-19] MEDS: traMADol HCL 50 MG TABLET PO PRN ×2 (08:29→18:00)
[2017-03-19] MEDS: APIXABAN 5 MG TABLET PO SCH ×2 (09:52→21:27)
[2017-03-19] MEDS: cefTRIAXone 1 GM/50 ML BAG (PRE-DOCKED) IVPB SCH (09:52)
[2017-03-19] MEDS: guaiFENesin/CODEINE 5 ML UNIT-DOSE CUPS PO PRN ×2 (09:52→18:01)
[2017-03-19] MEDS: PANTOPRAZOLE 40 MG TABLET (FP) PO SCH (09:52)
[2017-03-19] MEDS: AZITHROMYCIN 250 MG TABLET (FP) PO SCH (09:53)
--- NOTE | 2017-03-19 10:21 | PN ---
Progress Note, Physician History of Present Illness: back pain main issues bilaterally still coughing a lot sputum production patient not getting better - Current Medication List Current Medications: Active Medications Acetaminophen (Tylenol -) 650 mg PO Q6H PRN PRN Reason: FEVER OR PAIN Last Admin: 03/18/17 03:11 Dose: 650 mg Albuterol/Ipratropium (Duoneb -) 1 amp NEB Q4H PRN Last Admin: 03/19/17 06:32 Dose: 1 amp Apixaban (Eliquis -) 5 mg PO BID [facility] Last Admin: 03/19/17 09:52 Dose: 5 mg Atorvastatin Calcium (Lipitor -) 20 mg PO HS [facility] Last Admin: 03/18/17 22:23 Dose: 20 mg Azithromycin (Zithromax -) 500 mg PO DAILY [facility] Last Admin: 03/19/17 09:53 Dose: 500 mg Ceftriaxone Sodium (Rocephin 1gm Ivpb (Pre-Docked)) 1 gm IVPB DAILY [facility] Last Admin: 03/19/17 09:52 Dose: 1 gm Diltiazem HCl (Cardizem Cd -) 180 mg PO DAILY [facility] Last Admin: 03/19/17 09:52 Dose: 180 mg Gabapentin (Neurontin -) 100 mg PO TID [facility] Last Admin: 03/19/17 06:12 Dose: 100 mg Guaifenesin/Codeine Phosphate (Robitussin Ac -) 5 ml PO Q6H PRN Last Admin: 03/19/17 09:52 Dose: 5 ml Latanoprost (Xalatan 0.005% Eye Drops -) 1 drop OU HS [facility] Last Admin: 03/18/17 22:24 Dose: 1 drop Methylprednisolone Sodium Succinate (Solu-Medrol -) 40 mg IVPB Q8H-IV [facility] Last Admin: 03/19/17 09:53 Dose: 40 mg Pantoprazole Sodium (Protonix -) 40 mg PO DAILY [facility] Last Admin: 03/19/17 09:52 Dose: 40 mg Tramadol HCl (Ultram -) 50 mg PO Q6H PRN PRN Reason: PAIN Last Admin: 03/19/17 08:29 Dose: 50 mg - Objective Vital Signs: Vital Signs Temperature 97.7 F 03/19/17 09:44 Pulse Rate 96 H 03/19/17 09:44 Respiratory Rate 20 03/19/17 09:44 Blood Pressure 160/100 03/19/17 09:44 O2 Sat by Pulse Oximetry (%) 98 03/18/17 21:00 Constitutional: Yes: Calm, Mild Distress Cardiovascular: Yes: Regular Rate and Rhythm Respiratory: Yes: Poor Air Entry, Rhonchi, Wheezes, Other (pleuritic pain) Gastrointestinal: Yes: Normal Bowel Sounds, Soft Musculoskeletal: Yes: WNL Extremities: Yes: WNL Neurological: Yes: Alert, Oriented Psychiatric: Yes: Alert Labs: CBC, BMP 03/16/17 07:17 03/16/17 07:17 INR, PTT INR 1.91 (0.82-1.09) H D 03/14/17 19:30 Assessment/Plan Problem List - Problems (1) Acute exacerbation of chronic obstructive pulmonary disease Code(s): J44.1 - CHRONIC OBSTRUCTIVE PULMONARY DISEASE W (ACUTE) EXACERBATION (2) Chronic respiratory failure with hypoxia Code(s): J96.11 - CHRONIC RESPIRATORY FAILURE WITH HYPOXIA (3) Sarcoidosis Code(s): D86.9 - SARCOIDOSIS, UNSPECIFIED (4) Hypertension Code(s): I10 - ESSENTIAL (PRIMARY) HYPERTENSION Qualifiers: Hypertension type: essential hypertension Qualified Code(s): I10 - Essential (primary) hypertension (5) Pneumonia Code(s): J18.9 - PNEUMONIA, UNSPECIFIED ORGANISM Qualifiers: Pneumonia type: due to unspecified organism Laterality: unspecified laterality Lung location: lower lobe of lung Qualified Code(s): J18.1 - Lobar pneumonia, unspecified organism plan i ave stopped ceftriaxone and zithro switched to zosyn patient still producing sputum continue cough syrup
[2017-03-19] MEDS: PIPERACILLIN/TAZOB 3.375 GM 50 ML IVPB SCH ×2 (10:43→17:58)
--- NOTE | 2017-03-19 13:17 | PN ---
Progress Note (short form) - Note Progress Note: PULMONARY VSS/AFEBRILE BACK PAIN/COUGH W SPUTUM ANICTERIC SCATTERED B/L RHONCHI AND WHEEZES S1S2 BS+ 1+ EDEMA B/L LABS/MEDS/IMAGING/MICRO/NOTES/CT CHEST REVIEWED Acute COPD Exacerbation Infiltrates have a nodular appearance Sarcoidosis Chronic Hypoxic Respiratory Failure Lactic Acidosis Pulmonary HTN HTN - IV antibiotics adjusted by ID - IV medrol tapered - inhaled bronchodilators/anticoagulation - O2 to keep SpO2 >90% - IVF as needed - will need outpt PFTs and outpt f/u of imaging Linda PATEL MD
--- NOTE | 2017-03-19 16:55 | PN ---
Progress Note, Physician History of Present Illness: back pain..better - Current Medication List Current Medications: Active Medications Acetaminophen (Tylenol -) 650 mg PO Q6H PRN PRN Reason: FEVER OR PAIN Last Admin: 03/18/17 03:11 Dose: 650 mg Albuterol/Ipratropium (Duoneb -) 1 amp NEB Q4H PRN Last Admin: 03/19/17 06:32 Dose: 1 amp Apixaban (Eliquis -) 5 mg PO BID [facility] Last Admin: 03/19/17 09:52 Dose: 5 mg Atorvastatin Calcium (Lipitor -) 20 mg PO HS [facility] Last Admin: 03/18/17 22:23 Dose: 20 mg Diltiazem HCl (Cardizem Cd -) 180 mg PO DAILY [facility] Last Admin: 03/19/17 09:52 Dose: 180 mg Gabapentin (Neurontin -) 100 mg PO TID [facility] Last Admin: 03/19/17 14:04 Dose: 100 mg Guaifenesin/Codeine Phosphate (Robitussin Ac -) 5 ml PO Q6H PRN Last Admin: 03/19/17 09:52 Dose: 5 ml Piperacillin Sod/Tazobactam Sod (Zosyn 3.375gm Ivpb (Pre-Docked)) 50 mls @ 100 mls/hr IVPB Q8H-IV [facility] PRN Reason: Protocol Last Admin: 03/19/17 10:43 Dose: 100 mls/hr Latanoprost (Xalatan 0.005% Eye Drops -) 1 drop OU HS [facility] Last Admin: 03/18/17 22:24 Dose: 1 drop Methylprednisolone Sodium Succinate (Solu-Medrol -) 40 mg IVPB Q8H-IV [facility] Last Admin: 03/19/17 09:53 Dose: 40 mg Pantoprazole Sodium (Protonix -) 40 mg PO DAILY [facility] Last Admin: 03/19/17 09:52 Dose: 40 mg Tramadol HCl (Ultram -) 50 mg PO Q6H PRN PRN Reason: PAIN Last Admin: 03/19/17 08:29 Dose: 50 mg - Objective Vital Signs: Vital Signs Temperature 98.2 F 03/19/17 13:53 Pulse Rate 76 03/19/17 13:53 Respiratory Rate 17 03/19/17 13:53 Blood Pressure 160/100 03/19/17 09:44 O2 Sat by Pulse Oximetry (%) 100 03/19/17 11:00 Constitutional: Yes: No Distress HENT: Yes: Atraumatic Neck: Yes: Supple Cardiovascular: Yes: Regular Rate and Rhythm Respiratory: Yes: Rhonchi, Wheezes (mild) Gastrointestinal: Yes: Normal Bowel Sounds Extremities: Yes: WNL Neurological: Yes: Alert, Oriented Labs: CBC, BMP 03/16/17 07:17 03/16/17 07:17 INR, PTT INR 1.91 (0.82-1.09) H D 03/14/17 19:30 Problem List - Problems (1) Acute exacerbation of chronic obstructive pulmonary disease Assessment/Plan: iv steroids..taper duo nebs incentive spirometry Code(s): J44.1 - CHRONIC OBSTRUCTIVE PULMONARY DISEASE W (ACUTE) EXACERBATION (2) Fever Assessment/Plan: bcx...negative ucx...contaminated on abx no fever Code(s): R50.9 - FEVER, UNSPECIFIED Qualifiers: Fever type: due to other condition Qualified Code(s): R50.81 - Fever presenting with conditions classified elsewhere (3) Pneumonia Assessment/Plan: on abx Code(s): J18.9 - PNEUMONIA, UNSPECIFIED ORGANISM Qualifiers: Pneumonia type: due to unspecified organism Laterality: unspecified laterality Lung location: lower lobe of lung Qualified Code(s): J18.1 - Lobar pneumonia, unspecified organism (4) Chest tightness Code(s): R07.89 - OTHER CHEST PAIN (5) Coronary artery disease Assessment/Plan: troponin negative Code(s): I25.10 - ATHSCL HEART DISEASE OF [place] CORONARY ARTERY W/O ANG PCTRS (6) Hypertension Assessment/Plan: stable on meds Code(s): I10 - ESSENTIAL (PRIMARY) HYPERTENSION Qualifiers: Hypertension type: essential hypertension Qualified Code(s): I10 - Essential (primary) hypertension (7) Back pain Assessment/Plan: musculoskeletal prn tylenol will do kub will also order ucx Code(s): M54.9 - DORSALGIA, UNSPECIFIED Assessment/Plan
[2017-03-19] MEDS: ATORVASTATIN CA 20 MG TABLET (FP) PO SCH (21:27)
[2017-03-19] MEDS: LATANOPROST 0.005% OPHTH SOLN 2.5ML BOTTLE OU SCH (21:29)
[2017-03-20] MEDS: methylPREDNISolone NA SUCC 40 MG/1 ML VIAL IVPB SCH ×3 (01:43→17:01)
[2017-03-20] MEDS: PIPERACILLIN/TAZOB 3.375 GM 50 ML IVPB SCH ×3 (01:43→17:02)
[2017-03-20] MEDS ORDERED: ALBUTEROL SO4 2.5/IPRATROPIUM 0.5 INH SOL 3 ML VIAL.NEB. NEB ONE (06:14)
[2017-03-20] MEDS: GABAPENTIN 100 MG CAPSULE (FP) PO SCH ×3 (06:20→21:59)
[2017-03-20] MEDS ORDERED: PT OWN MED DRAWER 7, Y5N ONE ×3 (06:39→21:38)
[2017-03-20 08:56] LABS: CALCIUM 9.1 mg/dL (8.5-10.1)
[2017-03-20 08:57] LABS: COCKROFT - GAULT 77.4605; CREATININE 0.7 mg/dL (0.55-1.02)
[2017-03-20 09:13] LABS: MCH 20.3 pg (25.7-33.7); MCHC 30.2 g/dl (32.0-36.0); MEAN CELL VOLUME 67.1 fl (80-96); MEAN PLT VOLUME 9.3 fl (7.5-11.1); PLATELET COUNT 207 K/MM3 (134-434); RDW 17.6 % (11.6-15.6); WHITE BLOOD COUNT 8.6 K/mm3 (4.0-10.0)
[2017-03-20] MEDS: PANTOPRAZOLE 40 MG TABLET (FP) PO SCH (09:24)
[2017-03-20] MEDS: APIXABAN 5 MG TABLET PO SCH ×2 (10:01→22:00)
--- NOTE | 2017-03-20 11:09 | PN ---
Progress Note, Physician History of Present Illness: back pain..better - Current Medication List Current Medications: Active Medications Acetaminophen (Tylenol -) 650 mg PO Q6H PRN PRN Reason: FEVER OR PAIN Last Admin: 03/18/17 03:11 Dose: 650 mg Apixaban (Eliquis -) 5 mg PO BID [facility] Last Admin: 03/20/17 10:01 Dose: 5 mg Atorvastatin Calcium (Lipitor -) 20 mg PO HS [facility] Last Admin: 03/19/17 21:27 Dose: 20 mg Diltiazem HCl (Cardizem Cd -) 180 mg PO DAILY [facility] Last Admin: 03/20/17 09:25 Dose: 180 mg Gabapentin (Neurontin -) 100 mg PO TID [facility] Last Admin: 03/20/17 06:20 Dose: 100 mg Piperacillin Sod/Tazobactam Sod (Zosyn 3.375gm Ivpb (Pre-Docked)) 50 mls @ 100 mls/hr IVPB Q8H-IV [facility] PRN Reason: Protocol Last Admin: 03/20/17 09:25 Dose: 100 mls/hr Latanoprost (Xalatan 0.005% Eye Drops -) 1 drop OU HS [facility] Last Admin: 03/19/17 21:29 Dose: 1 drop Methylprednisolone Sodium Succinate (Solu-Medrol -) 40 mg IVPB Q8H-IV [facility] Last Admin: 03/20/17 09:24 Dose: 40 mg Pantoprazole Sodium (Protonix -) 40 mg PO DAILY [facility] Last Admin: 03/20/17 09:24 Dose: 40 mg Tramadol HCl (Ultram -) 50 mg PO Q6H PRN PRN Reason: PAIN Last Admin: 03/19/17 18:00 Dose: 50 mg - Objective Vital Signs: Vital Signs Temperature 97.7 F 03/20/17 08:40 Pulse Rate 108 H 03/20/17 08:40 Respiratory Rate 20 03/20/17 08:40 Blood Pressure 154/83 03/20/17 08:40 O2 Sat by Pulse Oximetry (%) 100 03/19/17 21:00 Constitutional: Yes: No Distress HENT: Yes: Atraumatic Neck: Yes: Supple Cardiovascular: Yes: Regular Rate and Rhythm Respiratory: Yes: Rhonchi Gastrointestinal: Yes: Normal Bowel Sounds Extremities: Yes: WNL Neurological: Yes: Alert, Oriented Labs: CBC, BMP 03/20/17 07:50 03/20/17 07:30 INR, PTT INR 1.91 (0.82-1.09) H D 03/14/17 19:30 Problem List - Problems (1) Acute exacerbation of chronic obstructive pulmonary disease Assessment/Plan: iv steroids..switch to po duo nebs incentive spirometry Code(s): J44.1 - CHRONIC OBSTRUCTIVE PULMONARY DISEASE W (ACUTE) EXACERBATION (2) Fever Assessment/Plan: bcx...negative ucx...contaminated on abx no fever Code(s): R50.9 - FEVER, UNSPECIFIED Qualifiers: Fever type: due to other condition Qualified Code(s): R50.81 - Fever presenting with conditions classified elsewhere (3) Pneumonia Assessment/Plan: on abx Code(s): J18.9 - PNEUMONIA, UNSPECIFIED ORGANISM Qualifiers: Pneumonia type: due to unspecified organism Laterality: unspecified laterality Lung location: lower lobe of lung Qualified Code(s): J18.1 - Lobar pneumonia, unspecified organism (4) Chest tightness Code(s): R07.89 - OTHER CHEST PAIN (5) Coronary artery disease Assessment/Plan: troponin negative Code(s): I25.10 - ATHSCL HEART DISEASE OF [place] CORONARY ARTERY W/O ANG PCTRS (6) Hypertension Assessment/Plan: stable on meds Code(s): I10 - ESSENTIAL (PRIMARY) HYPERTENSION Qualifiers: Hypertension type: essential hypertension Qualified Code(s): I10 - Essential (primary) hypertension (7) Back pain Code(s): M54.9 - DORSALGIA, UNSPECIFIED Assessment/Plan
--- NOTE | 2017-03-20 11:31 | PN ---
Progress Note (short form) - Note Progress Note: PULMONARY VSS/AFEBRILE SEVERE BACK PAIN/COUGH W SPUTUM ANICTERIC SCATTERED B/L RHONCHI S1S2 BS+ 1+ EDEMA B/L LABS/MEDS/IMAGING/MICRO/NOTES/CT CHEST REVIEWED Acute COPD Exacerbation Infiltrates have a nodular appearance Sarcoidosis Chronic Hypoxic Respiratory Failure Lactic Acidosis Pulmonary HTN HTN BACK PAIN - IV antibiotics adjusted by ID - IV medrol tapered - inhaled bronchodilators/anticoagulation - O2 to keep SpO2 >90% - IVF as needed - will need outpt PFTs and outpt f/u of imaging - L/S spine xray ordered Linda PATEL MD
[2017-03-20 12:01] LABS: ANISOCYTOSIS 2+; HYPOCHROMIA 3+; MICROCYTOSIS 2+
[2017-03-20 12:02] LABS: TARGET CELLS 2+
--- NOTE | 2017-03-20 12:04 | PN ---
Progress Note, Physician History of Present Illness: main issues back pain still coughing - Current Medication List Current Medications: Active Medications Acetaminophen (Tylenol -) 650 mg PO Q6H PRN PRN Reason: FEVER OR PAIN Last Admin: 03/18/17 03:11 Dose: 650 mg Albuterol Sulfate (Ventolin 0.083% Nebulizer Soln -) 1 amp NEB QIDR [facility] Apixaban (Eliquis -) 5 mg PO BID [facility] Last Admin: 03/20/17 10:01 Dose: 5 mg Atorvastatin Calcium (Lipitor -) 20 mg PO HS [facility] Last Admin: 03/19/17 21:27 Dose: 20 mg Diltiazem HCl (Cardizem Cd -) 180 mg PO DAILY [facility] Last Admin: 03/20/17 09:25 Dose: 180 mg Docusate Sodium (Colace -) 100 mg PO TID [facility] Gabapentin (Neurontin -) 100 mg PO TID [facility] Last Admin: 03/20/17 06:20 Dose: 100 mg Piperacillin Sod/Tazobactam Sod (Zosyn 3.375gm Ivpb (Pre-Docked)) 50 mls @ 100 mls/hr IVPB Q8H-IV [facility] PRN Reason: Protocol Last Admin: 03/20/17 09:25 Dose: 100 mls/hr Latanoprost (Xalatan 0.005% Eye Drops -) 1 drop OU HS [facility] Last Admin: 03/19/17 21:29 Dose: 1 drop Methylprednisolone Sodium Succinate (Solu-Medrol -) 20 mg IVPB Q8H-IV [facility] Pantoprazole Sodium (Protonix -) 40 mg PO DAILY [facility] Last Admin: 03/20/17 09:24 Dose: 40 mg Tramadol HCl (Ultram -) 50 mg PO Q6H PRN PRN Reason: PAIN Last Admin: 03/19/17 18:00 Dose: 50 mg - Objective Vital Signs: Vital Signs Temperature 97.7 F 03/20/17 08:40 Pulse Rate 100 H 03/20/17 11:14 Respiratory Rate 20 03/20/17 08:40 Blood Pressure 154/83 03/20/17 08:40 O2 Sat by Pulse Oximetry (%) 95 03/20/17 11:14 Constitutional: Yes: Moderate Distress, Other Cardiovascular: Yes: Regular Rate and Rhythm Respiratory: Yes: Rhonchi, Wheezes Gastrointestinal: Yes: Normal Bowel Sounds, Soft Musculoskeletal: Yes: WNL Extremities: Yes: WNL Neurological: Yes: Alert, Oriented Psychiatric: Yes: Alert Labs: CBC, BMP 03/20/17 07:50 03/20/17 07:30 INR, PTT INR 1.91 (0.82-1.09) H D 03/14/17 19:30 Assessment/Plan Problem List - Problems (1) Acute exacerbation of chronic obstructive pulmonary disease Code(s): J44.1 - CHRONIC OBSTRUCTIVE PULMONARY DISEASE W (ACUTE) EXACERBATION (2) Chronic respiratory failure with hypoxia Code(s): J96.11 - CHRONIC RESPIRATORY FAILURE WITH HYPOXIA (3) Sarcoidosis Code(s): D86.9 - SARCOIDOSIS, UNSPECIFIED (4) Hypertension Code(s): I10 - ESSENTIAL (PRIMARY) HYPERTENSION Qualifiers: Hypertension type: essential hypertension Qualified Code(s): I10 - Essential (primary) hypertension (5) Pneumonia Code(s): J18.9 - PNEUMONIA, UNSPECIFIED ORGANISM Qualifiers: Pneumonia type: due to unspecified organism Laterality: unspecified laterality Lung location: lower lobe of lung Qualified Code(s): J18.1 - Lobar pneumonia, unspecified organism plan continue zosyn will see what the back xray shows incentive radha rest as per pul
[2017-03-20] MEDS: DOCUSATE SODIUM 100 MG CAPSULE (FP) PO SCH ×2 (13:03→21:59)
[2017-03-20] MEDS: ALBUTEROL SO4 0.083% IH SOL 2.5 MG/3 ML VIAL.NEB. NEB SCH ×3 (13:44→23:30)
[2017-03-20] MEDS: traMADol HCL 50 MG TABLET PO PRN ×2 (13:56→21:59)
--- NOTE | 2017-03-20 15:00 | HOSP ---
Subjective - Review of Symptoms Events since last encounter: Paged by nurse because patient c/o active chest pain. Patient stated a substernal chest pain started 10 mins ago and it's getting better, it's non- radiating, undescribable quality, 8/10 severity, non-reproducible, not associated with n/v or palpation or deep breath. She also c/o shortness of breath and productive cough which has been her chief complaint for hospital admission Pulmonary: Yes: Dyspnea, Cough Cardiovascular: Yes: Chest Pain, Palpitations Physical Examination Vital Signs: Vital Signs Temperature 98.0 F 03/20/17 14:00 Pulse Rate 89 03/20/17 14:39 Respiratory Rate 18 03/20/17 14:39 Blood Pressure 156/71 03/20/17 14:39 O2 Sat by Pulse Oximetry (%) 95 03/20/17 11:14 Constitutional: Yes: Mild Distress Cardiovascular: Yes: S1, S2, Other (irregularly irregular) Respiratory: Yes: Poor Air Entry, Rhonchi, Other (find crackles in lower bases) Labs: CBC, BMP 03/20/17 07:50 03/20/17 07:30 Hospitalist Encounter Assessment: Chest pain r/o ACS - Likely 2/2 positional and musculoskeletal * 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 NC cannula Visit type - Emergency Visit Emergency Visit: No - New Patient This patient is new to me today: Yes Date on this admission: 03/20/17 - Critical Care Critical Care patient: No
--- NOTE | 2017-03-20 16:23 | EKG ---
Test Reason : Blood Pressure : / mmHG Vent. Rate : 102 BPM Atrial Rate : 104 BPM P-R Int : 000 ms QRS Dur : 094 ms QT Int : 290 ms P-R-T Axes : 000 -12 006 degrees QTc Int : 377 ms ATRIAL FIBRILLATION WITH RAPID VENTRICULAR RESPONSE WITH PREMATURE VENTRICULAR OR ABERRANTLY CONDUCTED COMPLEXES ABNORMAL ECG WHEN COMPARED WITH ECG OF 14-MAR-2017 19:20, QT HAS SHORTENED Confirmed by DANIE ROY, BRIAN ([id number]) on 03/20/2017 4:22:51 PM Referred By: Linda MOJICA Confirmed By:BRIAN HELTON MD
[2017-03-20 17:06] LABS: CALCIUM 8.9 mg/dL (8.5-10.1); COCKROFT - GAULT 60.248; CREATININE 0.9 mg/dL (0.55-1.02); MAGNESIUM 2.4 mg/dL (1.8-2.4)
[2017-03-20 17:10] LABS: TROPONIN I < 0.02 ng/ml (0.00-0.05)
[2017-03-20 17:15] LABS: MCHC 29.1 g/dl (32.0-36.0); MEAN CELL VOLUME 66.1 fl (80-96); MEAN PLT VOLUME 9.8 fl (7.5-11.1); PLATELET COUNT 241 K/MM3 (134-434); RDW 17.4 % (11.6-15.6); WHITE BLOOD COUNT 11.4 K/mm3 (4.0-10.0)
[2017-03-20 17:18] LABS: MCH 19.2 pg (25.7-33.7)
[2017-03-20 21:37] LABS: TROPONIN I < 0.02 ng/ml (0.00-0.05)
[2017-03-20] MEDS: ATORVASTATIN CA 20 MG TABLET (FP) PO SCH (21:59)
[2017-03-20] MEDS: LATANOPROST 0.005% OPHTH SOLN 2.5ML BOTTLE OU SCH (22:00)
[2017-03-21] MEDS: methylPREDNISolone NA SUCC 40 MG/1 ML VIAL IVPB SCH ×3 (01:46→17:12)
[2017-03-21] MEDS: PIPERACILLIN/TAZOB 3.375 GM 50 ML IVPB SCH ×3 (01:46→17:12)
[2017-03-21] MEDS: DOCUSATE SODIUM 100 MG CAPSULE (FP) PO SCH ×3 (05:34→21:28)
[2017-03-21] MEDS: GABAPENTIN 100 MG CAPSULE (FP) PO SCH ×3 (05:34→21:28)
[2017-03-21] MEDS: ALBUTEROL SO4 0.083% IH SOL 2.5 MG/3 ML VIAL.NEB. NEB SCH ×3 (06:39→17:19)
[2017-03-21] MEDS ORDERED: PT OWN MED DRAWER 7, Y5N ONE ×2 (10:14→21:25)
[2017-03-21] MEDS: PANTOPRAZOLE 40 MG TABLET (FP) PO SCH (10:20)
[2017-03-21] MEDS: APIXABAN 5 MG TABLET PO SCH ×2 (10:21→21:28)
[2017-03-21] MEDS: traMADol HCL 50 MG TABLET PO PRN ×2 (10:22→17:10)
--- NOTE | 2017-03-21 11:33 | PN ---
Progress Note (short form) - Note Progress Note: PULMONARY States she is feeling better. Cough clearing up, less short of breath. No fevers or chills. Last Vital Signs Temp Pulse Resp BP Pulse Ox 98.0 F 92 H 20 150/83 98 03/21/17 10:00 03/21/17 11:07 03/21/17 10:00 03/21/17 10:00 03/21/17 11:07 Gen: NAD at rest Heart: RRR Lung: scattered rhonchi but less Abd: soft, nontender Ext: no edema CBC, BMP 03/20/17 15:50 03/20/17 15:50 Active Medications Acetaminophen (Tylenol -) 650 mg PO Q6H PRN PRN Reason: FEVER OR PAIN Last Admin: 03/18/17 03:11 Dose: 650 mg Albuterol Sulfate (Ventolin 0.083% Nebulizer Soln -) 1 amp NEB QIDR [facility] Last Admin: 03/21/17 11:07 Dose: 1 amp Apixaban (Eliquis -) 5 mg PO BID [facility] Last Admin: 03/21/17 10:21 Dose: 5 mg Atorvastatin Calcium (Lipitor -) 20 mg PO HS [facility] Last Admin: 03/20/17 21:59 Dose: 20 mg Diltiazem HCl (Cardizem Cd -) 180 mg PO DAILY [facility] Last Admin: 03/21/17 10:22 Dose: 180 mg Docusate Sodium (Colace -) 100 mg PO TID [facility] Last Admin: 03/21/17 05:34 Dose: 100 mg Gabapentin (Neurontin -) 100 mg PO TID [facility] Last Admin: 03/21/17 05:34 Dose: 100 mg Piperacillin Sod/Tazobactam Sod (Zosyn 3.375gm Ivpb (Pre-Docked)) 50 mls @ 100 mls/hr IVPB Q8H-IV [facility] PRN Reason: Protocol Last Admin: 03/21/17 10:20 Dose: 100 mls/hr Latanoprost (Xalatan 0.005% Eye Drops -) 1 drop OU HS [facility] Last Admin: 03/20/17 22:00 Dose: 1 drop Methylprednisolone Sodium Succinate (Solu-Medrol -) 20 mg IVPB Q8H-IV [facility] Last Admin: 03/21/17 10:20 Dose: 20 mg Pantoprazole Sodium (Protonix -) 40 mg PO DAILY [facility] Last Admin: 03/21/17 10:20 Dose: 40 mg Tramadol HCl (Ultram -) 50 mg PO Q6H PRN PRN Reason: PAIN Last Admin: 03/21/17 10:22 Dose: 50 mg A/P Acute COPD Exacerbation r/o Pneumonia Sarcoidosis Chronic Hypoxic Respiratory Failure Lactic Acidosis Pulmonary HTN HTN - continue antibiotics per ID - will change steroids to PO - inhaled bronchodilators - O2 to keep SpO2 >90% - will need outpt PFTs and outpt f/u of imaging Problem List - Problems (1) Acute exacerbation of chronic obstructive pulmonary disease Code(s): J44.1 - CHRONIC OBSTRUCTIVE PULMONARY DISEASE W (ACUTE) EXACERBATION (2) Chronic respiratory failure with hypoxia Code(s): J96.11 - CHRONIC RESPIRATORY FAILURE WITH HYPOXIA (3) Sarcoidosis Code(s): D86.9 - SARCOIDOSIS, UNSPECIFIED (4) Hypertension Code(s): I10 - ESSENTIAL (PRIMARY) HYPERTENSION Qualifiers: Hypertension type: essential hypertension Qualified Code(s): I10 - Essential (primary) hypertension (5) Pneumonia Code(s): J18.9 - PNEUMONIA, UNSPECIFIED ORGANISM Qualifiers: Pneumonia type: due to unspecified organism Laterality: unspecified laterality Lung location: lower lobe of lung Qualified Code(s): J18.1 - Lobar pneumonia, unspecified organism
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
--- NOTE | 2017-03-21 20:08 | PN ---
Progress Note, Physician History of Present Illness: back pain..better - Current Medication List Current Medications: Active Medications Acetaminophen (Tylenol -) 650 mg PO Q6H PRN PRN Reason: FEVER OR PAIN Last Admin: 03/18/17 03:11 Dose: 650 mg Albuterol Sulfate (Ventolin 0.083% Nebulizer Soln -) 1 amp NEB QIDR [facility] Last Admin: 03/21/17 17:19 Dose: 1 amp Apixaban (Eliquis -) 5 mg PO BID [facility] Last Admin: 03/21/17 10:21 Dose: 5 mg Atorvastatin Calcium (Lipitor -) 20 mg PO HS [facility] Last Admin: 03/20/17 21:59 Dose: 20 mg Diltiazem HCl (Cardizem Cd -) 180 mg PO DAILY [facility] Last Admin: 03/21/17 10:22 Dose: 180 mg Docusate Sodium (Colace -) 100 mg PO TID [facility] Last Admin: 03/21/17 14:15 Dose: 100 mg Gabapentin (Neurontin -) 100 mg PO TID [facility] Last Admin: 03/21/17 14:15 Dose: 100 mg Piperacillin Sod/Tazobactam Sod (Zosyn 3.375gm Ivpb (Pre-Docked)) 50 mls @ 100 mls/hr IVPB Q8H-IV [facility] PRN Reason: Protocol Last Admin: 03/21/17 17:12 Dose: 100 mls/hr Latanoprost (Xalatan 0.005% Eye Drops -) 1 drop OU HS [facility] Last Admin: 03/20/17 22:00 Dose: 1 drop Pantoprazole Sodium (Protonix -) 40 mg PO DAILY [facility] Last Admin: 03/21/17 10:20 Dose: 40 mg Prednisone (Deltasone -) 40 mg PO DAILY [facility] Tramadol HCl (Ultram -) 50 mg PO Q6H PRN PRN Reason: PAIN Last Admin: 03/21/17 17:10 Dose: 50 mg - Objective Vital Signs: Vital Signs Temperature 98.3 F 03/21/17 14:35 Pulse Rate 95 H 03/21/17 14:35 Respiratory Rate 20 03/21/17 10:00 Blood Pressure 143/72 03/21/17 14:35 O2 Sat by Pulse Oximetry (%) 98 03/21/17 11:07 Constitutional: Yes: No Distress HENT: Yes: Atraumatic Neck: Yes: Supple Cardiovascular: Yes: Regular Rate and Rhythm Respiratory: Yes: Rhonchi Gastrointestinal: Yes: Normal Bowel Sounds Extremities: Yes: WNL Neurological: Yes: Alert, Oriented Labs: CBC, BMP 03/20/17 15:50 03/20/17 15:50 INR, PTT INR 1.91 (0.82-1.09) H D 03/14/17 19:30 Problem List - Problems (1) Acute exacerbation of chronic obstructive pulmonary disease Assessment/Plan: iv steroids..switch to po duo nebs incentive spirometry Code(s): J44.1 - CHRONIC OBSTRUCTIVE PULMONARY DISEASE W (ACUTE) EXACERBATION (2) Fever Assessment/Plan: bcx...negative ucx...contaminated on abx no fever Code(s): R50.9 - FEVER, UNSPECIFIED Qualifiers: Fever type: due to other condition Qualified Code(s): R50.81 - Fever presenting with conditions classified elsewhere (3) Pneumonia Assessment/Plan: on abx Code(s): J18.9 - PNEUMONIA, UNSPECIFIED ORGANISM Qualifiers: Pneumonia type: due to unspecified organism Laterality: unspecified laterality Lung location: lower lobe of lung Qualified Code(s): J18.1 - Lobar pneumonia, unspecified organism (4) Chest tightness Code(s): R07.89 - OTHER CHEST PAIN (5) Coronary artery disease Assessment/Plan: troponin negative Code(s): I25.10 - ATHSCL HEART DISEASE OF [place] CORONARY ARTERY W/O ANG PCTRS (6) Hypertension Assessment/Plan: stable on meds Code(s): I10 - ESSENTIAL (PRIMARY) HYPERTENSION Qualifiers: Hypertension type: essential hypertension Qualified Code(s): I10 - Essential (primary) hypertension (7) Back pain Assessment/Plan: musculoskeletal prn tylenol will do kub will also order ucx Code(s): M54.9 - DORSALGIA, UNSPECIFIED Assessment/Plan
[2017-03-21] MEDS: predniSONE 20 MG TABLET (UD) PO SCH (21:28)
[2017-03-21] MEDS: ATORVASTATIN CA 20 MG TABLET (FP) PO SCH (21:28)
[2017-03-21] MEDS: LATANOPROST 0.005% OPHTH SOLN 2.5ML BOTTLE OU SCH (21:29)
[2017-03-22] MEDS: ALBUTEROL SO4 0.083% IH SOL 2.5 MG/3 ML VIAL.NEB. NEB SCH ×5 (00:08→23:20)
[2017-03-22] MEDS: PIPERACILLIN/TAZOB 3.375 GM 50 ML IVPB SCH ×3 (01:32→17:44)
[2017-03-22] MEDS: DOCUSATE SODIUM 100 MG CAPSULE (FP) PO SCH ×3 (06:08→21:29)
[2017-03-22] MEDS: GABAPENTIN 100 MG CAPSULE (FP) PO SCH ×3 (06:08→21:29)
[2017-03-22] MEDS ORDERED: PT OWN MED DRAWER 7, Y5N ONE (11:07)
--- NOTE | 2017-03-22 11:13 | PN ---
Progress Note (short form) - Note Progress Note: PULMONARY Breathing continues to improve. Cough resolving. No fevers or chills. Last Vital Signs Temp Pulse Resp BP Pulse Ox 98.3 F 78 21 152/78 98 03/22/17 06:07 03/22/17 06:07 03/22/17 06:07 03/22/17 06:07 03/21/17 21:00 Gen: NAD at rest Heart: RRR Lung: scattered rhonchi but less Abd: soft, nontender Ext: no edema CBC, BMP 03/20/17 15:50 03/20/17 15:50 Active Medications Acetaminophen (Tylenol -) 650 mg PO Q6H PRN PRN Reason: FEVER OR PAIN Last Admin: 03/18/17 03:11 Dose: 650 mg Albuterol Sulfate (Ventolin 0.083% Nebulizer Soln -) 1 amp NEB QIDR [facility] Last Admin: 03/22/17 06:33 Dose: 1 amp Apixaban (Eliquis -) 5 mg PO BID [facility] Last Admin: 03/21/17 21:28 Dose: 5 mg Atorvastatin Calcium (Lipitor -) 20 mg PO HS [facility] Last Admin: 03/21/17 21:28 Dose: 20 mg Diltiazem HCl (Cardizem Cd -) 180 mg PO DAILY [facility] Last Admin: 03/21/17 10:22 Dose: 180 mg Docusate Sodium (Colace -) 100 mg PO TID [facility] Last Admin: 03/22/17 06:08 Dose: 100 mg Gabapentin (Neurontin -) 100 mg PO TID [facility] Last Admin: 03/22/17 06:08 Dose: 100 mg Piperacillin Sod/Tazobactam Sod (Zosyn 3.375gm Ivpb (Pre-Docked)) 50 mls @ 100 mls/hr IVPB Q8H-IV [facility] PRN Reason: Protocol Last Admin: 03/22/17 01:32 Dose: 100 mls/hr Latanoprost (Xalatan 0.005% Eye Drops -) 1 drop OU HS [facility] Last Admin: 03/21/17 21:29 Dose: 1 drop Pantoprazole Sodium (Protonix -) 40 mg PO DAILY [facility] Last Admin: 03/21/17 10:20 Dose: 40 mg Prednisone (Deltasone -) 40 mg PO DAILY [facility] Last Admin: 03/21/17 21:28 Dose: 40 mg Tramadol HCl (Ultram -) 50 mg PO Q6H PRN PRN Reason: PAIN Last Admin: 03/21/17 17:10 Dose: 50 mg A/P Acute COPD Exacerbation r/o Pneumonia Sarcoidosis Chronic Hypoxic Respiratory Failure Lactic Acidosis Pulmonary HTN HTN - complete antibiotics per ID - prednisone taper - inhaled bronchodilators - O2 to keep SpO2 >90% - will need outpt PFTs and outpt f/u of imaging - can discharge from pulmonary standpoint Problem List - Problems (1) Acute exacerbation of chronic obstructive pulmonary disease Code(s): J44.1 - CHRONIC OBSTRUCTIVE PULMONARY DISEASE W (ACUTE) EXACERBATION (2) Chronic respiratory failure with hypoxia Code(s): J96.11 - CHRONIC RESPIRATORY FAILURE WITH HYPOXIA (3) Sarcoidosis Code(s): D86.9 - SARCOIDOSIS, UNSPECIFIED (4) Hypertension Code(s): I10 - ESSENTIAL (PRIMARY) HYPERTENSION Qualifiers: Hypertension type: essential hypertension Qualified Code(s): I10 - Essential (primary) hypertension (5) Pneumonia Code(s): J18.9 - PNEUMONIA, UNSPECIFIED ORGANISM Qualifiers: Pneumonia type: due to unspecified organism Laterality: unspecified laterality Lung location: lower lobe of lung Qualified Code(s): J18.1 - Lobar pneumonia, unspecified organism
[2017-03-22] MEDS: APIXABAN 5 MG TABLET PO SCH ×2 (11:14→21:29)
[2017-03-22] MEDS: predniSONE 20 MG TABLET (UD) PO SCH (11:14)
[2017-03-22] MEDS: PANTOPRAZOLE 40 MG TABLET (FP) PO SCH (11:14)
--- NOTE | 2017-03-22 11:44 | PN ---
Progress Note, Physician History of Present Illness: states she has started to feel better back pain less cough improving breathing better - Current Medication List Current Medications: Active Medications Acetaminophen (Tylenol -) 650 mg PO Q6H PRN PRN Reason: FEVER OR PAIN Last Admin: 03/18/17 03:11 Dose: 650 mg Albuterol Sulfate (Ventolin 0.083% Nebulizer Soln -) 1 amp NEB QIDR [facility] Last Admin: 03/22/17 11:21 Dose: 1 amp Apixaban (Eliquis -) 5 mg PO BID [facility] Last Admin: 03/22/17 11:14 Dose: 5 mg Atorvastatin Calcium (Lipitor -) 20 mg PO HS [facility] Last Admin: 03/21/17 21:28 Dose: 20 mg Diltiazem HCl (Cardizem Cd -) 180 mg PO DAILY [facility] Last Admin: 03/22/17 11:14 Dose: 180 mg Docusate Sodium (Colace -) 100 mg PO TID [facility] Last Admin: 03/22/17 06:08 Dose: 100 mg Gabapentin (Neurontin -) 100 mg PO TID [facility] Last Admin: 03/22/17 06:08 Dose: 100 mg Piperacillin Sod/Tazobactam Sod (Zosyn 3.375gm Ivpb (Pre-Docked)) 50 mls @ 100 mls/hr IVPB Q8H-IV [facility] PRN Reason: Protocol Last Admin: 03/22/17 11:14 Dose: 100 mls/hr Latanoprost (Xalatan 0.005% Eye Drops -) 1 drop OU HS [facility] Last Admin: 03/21/17 21:29 Dose: 1 drop Pantoprazole Sodium (Protonix -) 40 mg PO DAILY [facility] Last Admin: 03/22/17 11:14 Dose: 40 mg Prednisone (Deltasone -) 40 mg PO DAILY [facility] Last Admin: 03/22/17 11:14 Dose: 40 mg Tramadol HCl (Ultram -) 50 mg PO Q6H PRN PRN Reason: PAIN Last Admin: 03/21/17 17:10 Dose: 50 mg - Objective Vital Signs: Vital Signs Temperature 98.1 F 03/22/17 10:00 Pulse Rate 100 H 03/22/17 10:00 Respiratory Rate 22 03/22/17 10:00 Blood Pressure 162/88 03/22/17 10:00 O2 Sat by Pulse Oximetry (%) 98 03/21/17 21:00 Constitutional: Yes: Mild Distress Neck: Yes: Supple Cardiovascular: Yes: Regular Rate and Rhythm Respiratory: Yes: Rhonchi Gastrointestinal: Yes: Normal Bowel Sounds, Soft Musculoskeletal: Yes: WNL Extremities: Yes: WNL Neurological: Yes: Alert, Oriented Psychiatric: Yes: Alert, Oriented Labs: CBC, BMP 03/20/17 15:50 03/20/17 15:50 INR, PTT INR 1.91 (0.82-1.09) H D 03/14/17 19:30 Assessment/Plan Problem List - Problems (1) Acute exacerbation of chronic obstructive pulmonary disease Code(s): J44.1 - CHRONIC OBSTRUCTIVE PULMONARY DISEASE W (ACUTE) EXACERBATION (2) Chronic respiratory failure with hypoxia Code(s): J96.11 - CHRONIC RESPIRATORY FAILURE WITH HYPOXIA (3) Sarcoidosis Code(s): D86.9 - SARCOIDOSIS, UNSPECIFIED (4) Hypertension Code(s): I10 - ESSENTIAL (PRIMARY) HYPERTENSION Qualifiers: Hypertension type: essential hypertension Qualified Code(s): I10 - Essential (primary) hypertension (5) Pneumonia Code(s): J18.9 - PNEUMONIA, UNSPECIFIED ORGANISM Qualifiers: Pneumonia type: due to unspecified organism Laterality: unspecified laterality Lung location: lower lobe of lung Qualified Code(s): J18.1 - Lobar pneumonia, unspecified organism plan continue zosyn continue to monitor incentive radha rest as per pul
[2017-03-22] MEDS: traMADol HCL 50 MG TABLET PO PRN ×2 (13:35→21:29)
--- NOTE | 2017-03-22 15:43 | PN ---
Progress Note, Physician History of Present Illness: feels much better no new issues still not feeling very well - Current Medication List Current Medications: Active Medications Acetaminophen (Tylenol -) 650 mg PO Q6H PRN PRN Reason: FEVER OR PAIN Last Admin: 03/18/17 03:11 Dose: 650 mg Albuterol Sulfate (Ventolin 0.083% Nebulizer Soln -) 1 amp NEB QIDR [facility] Last Admin: 03/22/17 11:21 Dose: 1 amp Apixaban (Eliquis -) 5 mg PO BID [facility] Last Admin: 03/22/17 11:14 Dose: 5 mg Atorvastatin Calcium (Lipitor -) 20 mg PO HS [facility] Last Admin: 03/21/17 21:28 Dose: 20 mg Diltiazem HCl (Cardizem Cd -) 180 mg PO DAILY [facility] Last Admin: 03/22/17 11:14 Dose: 180 mg Docusate Sodium (Colace -) 100 mg PO TID [facility] Last Admin: 03/22/17 13:48 Dose: 100 mg Gabapentin (Neurontin -) 100 mg PO TID [facility] Last Admin: 03/22/17 13:48 Dose: 100 mg Piperacillin Sod/Tazobactam Sod (Zosyn 3.375gm Ivpb (Pre-Docked)) 50 mls @ 100 mls/hr IVPB Q8H-IV LISA PRN Reason: Protocol Last Admin: 03/22/17 11:14 Dose: 100 mls/hr Latanoprost (Xalatan 0.005% Eye Drops -) 1 drop OU HS [facility] Last Admin: 03/21/17 21:29 Dose: 1 drop Pantoprazole Sodium (Protonix -) 40 mg PO DAILY [facility] Last Admin: 03/22/17 11:14 Dose: 40 mg Prednisone (Deltasone -) 40 mg PO DAILY [facility] Last Admin: 03/22/17 11:14 Dose: 40 mg Tramadol HCl (Ultram -) 50 mg PO Q6H PRN PRN Reason: PAIN Last Admin: 03/22/17 13:35 Dose: 50 mg - Objective Vital Signs: Vital Signs Temperature 98.4 F 03/22/17 13:39 Pulse Rate 102 H 03/22/17 13:39 Respiratory Rate 22 03/22/17 10:00 Blood Pressure 150/80 03/22/17 13:39 O2 Sat by Pulse Oximetry (%) 96 06/06/17 09:00 Constitutional: Yes: Calm, Mild Distress Cardiovascular: Yes: Regular Rate and Rhythm Respiratory: Yes: Rhonchi Gastrointestinal: Yes: Normal Bowel Sounds, Soft Musculoskeletal: Yes: WNL Extremities: Yes: WNL Neurological: Yes: Alert, Oriented Psychiatric: Yes: Alert, Oriented Labs: CBC, BMP 03/20/17 15:50 03/20/17 15:50 INR, PTT INR 1.91 (0.82-1.09) H D 03/14/17 19:30 - ....Imaging Chest X-ray: Report Reviewed, Image Reviewed X-ray: Report Reviewed, Image Reviewed Assessment/Plan Problem List - Problems (1) Acute exacerbation of chronic obstructive pulmonary disease Code(s): J44.1 - CHRONIC OBSTRUCTIVE PULMONARY DISEASE W (ACUTE) EXACERBATION (2) Chronic respiratory failure with hypoxia Code(s): J96.11 - CHRONIC RESPIRATORY FAILURE WITH HYPOXIA (3) Sarcoidosis Code(s): D86.9 - SARCOIDOSIS, UNSPECIFIED (4) Hypertension Code(s): I10 - ESSENTIAL (PRIMARY) HYPERTENSION Qualifiers: Hypertension type: essential hypertension Qualified Code(s): I10 - Essential (primary) hypertension (5) Pneumonia Code(s): J18.9 - PNEUMONIA, UNSPECIFIED ORGANISM Qualifiers: Pneumonia type: due to unspecified organism Laterality: unspecified laterality Lung location: lower lobe of lung Qualified Code(s): J18.1 - Lobar pneumonia, unspecified organism plan continue current mgmt will see progress incentive spior rest as per pul
--- NOTE | 2017-03-22 19:38 | PN ---
Progress Note, Physician - Current Medication List Current Medications: Active Medications Acetaminophen (Tylenol -) 650 mg PO Q6H PRN PRN Reason: FEVER OR PAIN Last Admin: 03/18/17 03:11 Dose: 650 mg Albuterol Sulfate (Ventolin 0.083% Nebulizer Soln -) 1 amp NEB QIDR COUNTS [facility]CLUDE 234 BEDS AT [facility] Last Admin: 03/22/17 17:24 Dose: 1 amp Apixaban (Eliquis -) 5 mg PO BID [facility]S [facility]CLUDE 234 BEDS AT [facility] Last Admin: 03/22/17 11:14 Dose: 5 mg Atorvastatin Calcium (Lipitor -) 20 mg PO HS [facility]S [facility]CLUDE 234 BEDS AT [facility] Last Admin: 03/21/17 21:28 Dose: 20 mg Diltiazem HCl (Cardizem Cd -) 180 mg PO DAILY [facility]S [facility] 234 BEDS AT [facility] Last Admin: 03/22/17 11:14 Dose: 180 mg Docusate Sodium (Colace -) 100 mg PO TID [facility]S [facility]CLUDE 234 BEDS AT [facility] Last Admin: 03/22/17 13:48 Dose: 100 mg Gabapentin (Neurontin -) 100 mg PO TID [facility]S [facility]CLUDE 234 BEDS AT [facility] Last Admin: 03/22/17 13:48 Dose: 100 mg Piperacillin Sod/Tazobactam Sod (Zosyn 3.375gm Ivpb (Pre-Docked)) 50 mls @ 100 mls/hr IVPB Q8H-IV LISA PRN Reason: Protocol Last Admin: 03/22/17 17:44 Dose: 100 mls/hr Latanoprost (Xalatan 0.005% Eye Drops -) 1 drop OU HS [facility]S [facility]CLUDE 234 BEDS AT [facility] Last Admin: 03/21/17 21:29 Dose: 1 drop Pantoprazole Sodium (Protonix -) 40 mg PO DAILY [facility]CLUDE 234 BEDS AT [facility] Last Admin: 03/22/17 11:14 Dose: 40 mg Prednisone (Deltasone -) 40 mg PO DAILY [facility]CLUDE 234 BEDS AT [facility] Last Admin: 03/22/17 11:14 Dose: 40 mg Tramadol HCl (Ultram -) 50 mg PO Q6H PRN PRN Reason: PAIN Last Admin: 03/22/17 13:35 Dose: 50 mg - Objective Vital Signs: Vital Signs Temperature 98.4 F 03/22/17 13:39 Pulse Rate 102 H 03/22/17 13:39 Respiratory Rate 22 03/22/17 10:00 Blood Pressure 150/80 03/22/17 13:39 O2 Sat by Pulse Oximetry (%) 96 03/22/17 09:00 Constitutional: Yes: No Distress HENT: Yes: Atraumatic Neck: Yes: Supple Cardiovascular: Yes: Regular Rate and Rhythm Respiratory: Yes: Rhonchi Gastrointestinal: Yes: Normal Bowel Sounds Extremities: Yes: WNL Neurological: Yes: Alert, Oriented Labs: CBC, BMP 03/20/17 15:50 03/20/17 15:50 INR, PTT INR 1.91 (0.82-1.09) H D 03/14/17 19:30 Problem List - Problems (1) Acute exacerbation of chronic obstructive pulmonary disease Assessment/Plan: iv steroids..switch to po duo nebs incentive spirometry Code(s): J44.1 - CHRONIC OBSTRUCTIVE PULMONARY DISEASE W (ACUTE) EXACERBATION (2) Fever Assessment/Plan: bcx...negative ucx...contaminated on abx no fever Code(s): R50.9 - FEVER, UNSPECIFIED Qualifiers: Fever type: due to other condition Qualified Code(s): R50.81 - Fever presenting with conditions classified elsewhere (3) Pneumonia Assessment/Plan: on abx Code(s): J18.9 - PNEUMONIA, UNSPECIFIED ORGANISM Qualifiers: Pneumonia type: due to unspecified organism Laterality: unspecified laterality Lung location: lower lobe of lung Qualified Code(s): J18.1 - Lobar pneumonia, unspecified organism (4) Chest tightness Code(s): R07.89 - OTHER CHEST PAIN (5) Coronary artery disease Assessment/Plan: troponin negative Code(s): I25.10 - ATHSCL HEART DISEASE OF [place] CORONARY ARTERY W/O ANG PCTRS (6) Hypertension Code(s): I10 - ESSENTIAL (PRIMARY) HYPERTENSION Qualifiers: Hypertension type: essential hypertension Qualified Code(s): I10 - Essential (primary) hypertension (7) Back pain Code(s): M54.9 - DORSALGIA, UNSPECIFIED Assessment/Plan
[2017-03-22] MEDS: ATORVASTATIN CA 20 MG TABLET (FP) PO SCH (21:29)
[2017-03-22] MEDS: LATANOPROST 0.005% OPHTH SOLN 2.5ML BOTTLE OU SCH (21:30)
[2017-03-23] MEDS: PIPERACILLIN/TAZOB 3.375 GM 50 ML IVPB SCH ×3 (01:02→17:47)
[2017-03-23] MEDS: traMADol HCL 50 MG TABLET PO PRN (06:12)
[2017-03-23] MEDS: DOCUSATE SODIUM 100 MG CAPSULE (FP) PO SCH ×3 (06:12→21:38)
[2017-03-23] MEDS: GABAPENTIN 100 MG CAPSULE (FP) PO SCH ×3 (06:13→21:38)
[2017-03-23] MEDS: ALBUTEROL SO4 0.083% IH SOL 2.5 MG/3 ML VIAL.NEB. NEB SCH ×3 (06:47→18:05)
--- NOTE | 2017-03-23 09:55 | PN ---
Progress Note (short form) - Note Progress Note: PULMONARY VSS/AFEBRILE SEVERE BACK PAIN/COUGH W SPUTUM ANICTERIC SCATTERED B/L RHONCHI S1S2 BS+ 1+ EDEMA B/L LABS/MEDS/IMAGING/MICRO/NOTES/CT CHEST REVIEWED Acute COPD Exacerbation Infiltrates have a nodular appearance Sarcoidosis Chronic Hypoxic Respiratory Failure Lactic Acidosis Pulmonary HTN HTN BACK PAIN - IV antibiotics adjusted by ID - Prednisone to taper - inhaled bronchodilators/anticoagulation - O2 to keep SpO2 >90% - will need outpt PFTs and outpt f/u of imaging - L/S spine CT ordered Linda PATEL MD
[2017-03-23] MEDS ORDERED: PT OWN MED DRAWER 7, Y5N ONE (10:01)
[2017-03-23] MEDS: PANTOPRAZOLE 40 MG TABLET (FP) PO SCH (10:30)
[2017-03-23] MEDS: predniSONE 20 MG TABLET (UD) PO SCH (10:31)
[2017-03-23] MEDS: APIXABAN 5 MG TABLET PO SCH ×2 (10:32→21:38)
--- NOTE | 2017-03-23 16:18 | PN ---
Progress Note, Physician History of Present Illness: back pain main issue breathing better - Current Medication List Current Medications: Active Medications Acetaminophen (Tylenol -) 650 mg PO Q6H PRN PRN Reason: FEVER OR PAIN Last Admin: 03/18/17 03:11 Dose: 650 mg Albuterol Sulfate (Ventolin 0.083% Nebulizer Soln -) 1 amp NEB QIDR [facility] Last Admin: 03/23/17 06:47 Dose: 1 amp Apixaban (Eliquis -) 5 mg PO BID [facility] Last Admin: 03/23/17 10:32 Dose: 5 mg Atorvastatin Calcium (Lipitor -) 20 mg PO HS [facility] Last Admin: 03/22/17 21:29 Dose: 20 mg Diltiazem HCl (Cardizem Cd -) 180 mg PO DAILY [facility] Last Admin: 03/23/17 10:31 Dose: 180 mg Docusate Sodium (Colace -) 100 mg PO TID [facility] Last Admin: 03/23/17 13:30 Dose: 100 mg Gabapentin (Neurontin -) 100 mg PO TID [facility] Last Admin: 03/23/17 13:30 Dose: 100 mg Piperacillin Sod/Tazobactam Sod (Zosyn 3.375gm Ivpb (Pre-Docked)) 50 mls @ 100 mls/hr IVPB Q8H-IV LISA PRN Reason: Protocol Last Admin: 03/23/17 10:33 Dose: 100 mls/hr Latanoprost (Xalatan 0.005% Eye Drops -) 1 drop OU HS [facility] Last Admin: 03/22/17 21:30 Dose: 1 drop Pantoprazole Sodium (Protonix -) 40 mg PO DAILY [facility] Last Admin: 03/23/17 10:30 Dose: 40 mg Prednisone (Deltasone -) 40 mg PO DAILY [facility] Last Admin: 03/23/17 10:31 Dose: 40 mg Tramadol HCl (Ultram -) 50 mg PO Q6H PRN PRN Reason: PAIN Last Admin: 03/23/17 06:12 Dose: 50 mg - Objective Vital Signs: Vital Signs Temperature 98.4 F 03/23/17 14:53 Pulse Rate 81 03/23/17 14:53 Respiratory Rate 20 03/23/17 09:53 Blood Pressure 149/69 03/23/17 09:53 O2 Sat by Pulse Oximetry (%) 94 L 03/23/17 09:00 Constitutional: Yes: Calm, Mild Distress Respiratory: Yes: Regular, Rhonchi Gastrointestinal: Yes: Normal Bowel Sounds, Soft Musculoskeletal: Yes: WNL Extremities: Yes: WNL Neurological: Yes: Alert, Oriented Psychiatric: Yes: Alert Labs: CBC, BMP 03/20/17 15:50 03/20/17 15:50 INR, PTT INR 1.91 (0.82-1.09) H D 03/14/17 19:30 Assessment/Plan Problem List - Problems (1) Acute exacerbation of chronic obstructive pulmonary disease Code(s): J44.1 - CHRONIC OBSTRUCTIVE PULMONARY DISEASE W (ACUTE) EXACERBATION (2) Chronic respiratory failure with hypoxia Code(s): J96.11 - CHRONIC RESPIRATORY FAILURE WITH HYPOXIA (3) Sarcoidosis Code(s): D86.9 - SARCOIDOSIS, UNSPECIFIED (4) Hypertension Code(s): I10 - ESSENTIAL (PRIMARY) HYPERTENSION Qualifiers: Hypertension type: essential hypertension Qualified Code(s): I10 - Essential (primary) hypertension (5) Pneumonia Code(s): J18.9 - PNEUMONIA, UNSPECIFIED ORGANISM Qualifiers: Pneumonia type: due to unspecified organism Laterality: unspecified laterality Lung location: lower lobe of lung Qualified Code(s): J18.1 - Lobar pneumonia, unspecified organism plan continue current mgmt will see progress incentive spior rest as per pul by tuesday will deescalte abx
--- NOTE | 2017-03-23 18:09 | PN ---
Progress Note, Physician History of Present Illness: back pain..better - Current Medication List Current Medications: Active Medications Acetaminophen (Tylenol -) 650 mg PO Q6H PRN PRN Reason: FEVER OR PAIN Last Admin: 03/18/17 03:11 Dose: 650 mg Albuterol Sulfate (Ventolin 0.083% Nebulizer Soln -) 1 amp NEB QIDR [facility] Last Admin: 03/23/17 06:47 Dose: 1 amp Apixaban (Eliquis -) 5 mg PO BID [facility] Last Admin: 03/23/17 10:32 Dose: 5 mg Atorvastatin Calcium (Lipitor -) 20 mg PO HS [facility] Last Admin: 03/22/17 21:29 Dose: 20 mg Diltiazem HCl (Cardizem Cd -) 180 mg PO DAILY [facility] Last Admin: 03/23/17 10:31 Dose: 180 mg Docusate Sodium (Colace -) 100 mg PO TID [facility] Last Admin: 03/23/17 13:30 Dose: 100 mg Gabapentin (Neurontin -) 100 mg PO TID [facility] Last Admin: 03/23/17 13:30 Dose: 100 mg Piperacillin Sod/Tazobactam Sod (Zosyn 3.375gm Ivpb (Pre-Docked)) 50 mls @ 100 mls/hr IVPB Q8H-IV LISA PRN Reason: Protocol Last Admin: 03/23/17 17:47 Dose: 100 mls/hr Latanoprost (Xalatan 0.005% Eye Drops -) 1 drop OU HS [facility] Last Admin: 03/22/17 21:30 Dose: 1 drop Pantoprazole Sodium (Protonix -) 40 mg PO DAILY [facility] Last Admin: 03/23/17 10:30 Dose: 40 mg Prednisone (Deltasone -) 40 mg PO DAILY [facility] Last Admin: 03/23/17 10:31 Dose: 40 mg Tramadol HCl (Ultram -) 50 mg PO Q6H PRN PRN Reason: PAIN Last Admin: 03/23/17 06:12 Dose: 50 mg - Objective Vital Signs: Vital Signs Temperature 98.4 F 03/23/17 14:53 Pulse Rate 81 03/23/17 14:53 Respiratory Rate 20 03/23/17 09:53 Blood Pressure 149/69 03/23/17 09:53 O2 Sat by Pulse Oximetry (%) 94 L 03/23/17 09:00 Constitutional: Yes: No Distress HENT: Yes: Atraumatic Neck: Yes: Supple Cardiovascular: Yes: Regular Rate and Rhythm Respiratory: Yes: Rhonchi Gastrointestinal: Yes: Normal Bowel Sounds Extremities: Yes: WNL Neurological: Yes: Alert, Oriented Labs: CBC, BMP 03/20/17 15:50 03/20/17 15:50 INR, PTT INR 1.91 (0.82-1.09) H D 03/14/17 19:30 Problem List - Problems (1) Acute exacerbation of chronic obstructive pulmonary disease Assessment/Plan: iv steroids..switch to po duo nebs incentive spirometry Code(s): J44.1 - CHRONIC OBSTRUCTIVE PULMONARY DISEASE W (ACUTE) EXACERBATION (2) Fever Assessment/Plan: bcx...negative ucx...contaminated on abx no fever Code(s): R50.9 - FEVER, UNSPECIFIED Qualifiers: Fever type: due to other condition Qualified Code(s): R50.81 - Fever presenting with conditions classified elsewhere (3) Pneumonia Assessment/Plan: on abx Code(s): J18.9 - PNEUMONIA, UNSPECIFIED ORGANISM Qualifiers: Pneumonia type: due to unspecified organism Laterality: unspecified laterality Lung location: lower lobe of lung Qualified Code(s): J18.1 - Lobar pneumonia, unspecified organism (4) Chest tightness Code(s): R07.89 - OTHER CHEST PAIN (5) Coronary artery disease Code(s): I25.10 - ATHSCL HEART DISEASE OF [place] CORONARY ARTERY W/O ANG PCTRS (6) Hypertension Code(s): I10 - ESSENTIAL (PRIMARY) HYPERTENSION Qualifiers: Hypertension type: essential hypertension Qualified Code(s): I10 - Essential (primary) hypertension (7) Back pain Code(s): M54.9 - DORSALGIA, UNSPECIFIED Assessment/Plan switch to po abx on po prednisone..taper NEURO CONSULT
--- NOTE | 2017-03-23 18:42 | CONSULT ---
Consult - text type - Consultation Consultation Note: NEUROLOGY CONSULTATION is greatly appreciated: This 86 yo RH woman lives alone in assisted living. PMH sig for HTN, COPD, Chol, PVD, S/P Iliac stent on apixiban, albuterol, symbicort, atrovent, atorvastatin, furosamide, pantoprazole, gabapentin. S/P Transthoracic Thoracic discectomy about 10 years ago after "losing balance. " Balance improved post-op, but Pt. had residual numbness and tingling in her feet. Walks with walker x many years. Denies falls. No change in bowel or bladder control. Chronic, episodic Low back pain x many years. More constant x 6 mos. No radiation into buttocks or legs. Pain increased by mov't, walking. X- Ray of LS Spine: Vertebral remodeling with loss of disc space height. Scattered hemangiomata. ENEIDA: R Thoracic, transcostal thoracic discectomy. Neck supple. No bruits. Neg SLR NEURO: MS/Speech: Normal CN: II-XII: Normal Motor: No drift. + episodic, rhythmic sustention tremor. Normal strength. + Cogwheel rigidity. Areflexic in legs. Toes downgoing. Coord: No FTN Dystaxia Sensory: Decreased vibration in both feet. Gait: Shuffling, marche a petit pas IMP: Non-focal exam Mild extrapyramidal (Parkinsonian) features. LS Spondylosis with possible LS spinal stenosis Mild residual thoracic myelopathy. 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 SUGGEST: MRI of LS spine (C-) if desired PT, Heat, ROM. Gait training with walker. NSAID if renal function permits. Thank you very much, Wilfred Jeter MD
[2017-03-23] MEDS: ACETAMINOPHEN 325 MG TABLET (FP) PO PRN (21:38)
[2017-03-23] MEDS: ATORVASTATIN CA 20 MG TABLET (FP) PO SCH (21:38)
[2017-03-23] MEDS: LATANOPROST 0.005% OPHTH SOLN 2.5ML BOTTLE OU SCH (21:39)
[2017-03-24] MEDS: ALBUTEROL SO4 0.083% IH SOL 2.5 MG/3 ML VIAL.NEB. NEB SCH ×5 (00:05→23:25)
[2017-03-24] MEDS: PIPERACILLIN/TAZOB 3.375 GM 50 ML IVPB SCH ×2 (01:15→09:30)
[2017-03-24] MEDS: GABAPENTIN 100 MG CAPSULE (FP) PO SCH ×3 (06:04→22:00)
[2017-03-24] MEDS: DOCUSATE SODIUM 100 MG CAPSULE (FP) PO SCH ×3 (06:04→22:00)
[2017-03-24 07:12] LABS: ALBUMIN 2.3 g/dl (3.4-5.0); ANION GAP 7 (8-16); BILIRUBIN,TOTAL 0.6 mg/dL (0.2-1.0); CALCIUM 8.5 mg/dL (8.5-10.1); CO2 36 mmol/L (21-32); COCKROFT - GAULT 77.4605; CREATININE 0.7 mg/dL (0.55-1.02); GLUCOSE,RANDOM 134 mg/dL (74-106); SGOT/AST 12 U/L (15-37); SGPT/ALT 18 U/L (12-78); TOT PROT 5.3 g/dl (6.4-8.2)
[2017-03-24 07:13] LABS: ALK PHOS 72 U/L (45-117)
[2017-03-24 09:16] LABS: MCHC 30.1 g/dl (32.0-36.0); MEAN CELL VOLUME 65.4 fl (80-96); MEAN PLT VOLUME 8.6 fl (7.5-11.1); PLATELET COUNT 211 K/MM3 (134-434); RDW 17.5 % (11.6-15.6); WHITE BLOOD COUNT 10.2 K/mm3 (4.0-10.0)
[2017-03-24 09:21] LABS: MCH 19.7 pg (25.7-33.7)
[2017-03-24] MEDS ORDERED: PT OWN MED DRAWER 7, Y5N ONE ×2 (09:27→21:52)
[2017-03-24] MEDS: predniSONE 20 MG TABLET (UD) PO SCH (09:29)
[2017-03-24] MEDS: PANTOPRAZOLE 40 MG TABLET (FP) PO SCH (09:29)
[2017-03-24] MEDS: APIXABAN 5 MG TABLET PO SCH ×2 (09:29→22:00)
[2017-03-24] MEDS: ACETAMINOPHEN 325 MG TABLET (FP) PO PRN ×2 (09:41→17:56)
[2017-03-24 10:40] LABS: ANISOCYTOSIS 1+; HYPOCHROMIA 2+; METAMYELOCYTE 1 % (0-2); PLATELET ESTIMATE ADEQUATE (NORMAL)
--- NOTE | 2017-03-24 11:13 | PN ---
Progress Note (short form) - Note Progress Note: PULMONARY c/o back pain. Breathing continues to improve. Cough resolving but still with yellow sputum. No fevers or chills. Last Vital Signs Temp Pulse Resp BP Pulse Ox 97.8 F 87 20 144/83 94 L 03/24/17 09:09 03/24/17 09:09 03/24/17 09:09 03/24/17 09:09 03/23/17 20:35 Gen: NAD at rest Heart: RRR Lung: scattered rhonchi Abd: soft, nontender Ext: no edema CBC, BMP 03/24/17 05:55 03/24/17 05:55 Active Medications Acetaminophen (Tylenol -) 650 mg PO Q6H PRN PRN Reason: FEVER OR PAIN Last Admin: 03/24/17 09:41 Dose: 650 mg Albuterol Sulfate (Ventolin 0.083% Nebulizer Soln -) 1 amp NEB QIDR [facility] Last Admin: 03/24/17 06:39 Dose: 1 amp Apixaban (Eliquis -) 5 mg PO BID [facility] Last Admin: 03/24/17 09:29 Dose: 5 mg Atorvastatin Calcium (Lipitor -) 20 mg PO HS [facility] Last Admin: 03/23/17 21:38 Dose: 20 mg Diltiazem HCl (Cardizem Cd -) 180 mg PO DAILY [facility] Last Admin: 03/24/17 09:30 Dose: 180 mg Docusate Sodium (Colace -) 100 mg PO TID [facility] Last Admin: 03/24/17 06:04 Dose: 100 mg Gabapentin (Neurontin -) 100 mg PO TID [facility] Last Admin: 03/24/17 06:04 Dose: 100 mg Piperacillin Sod/Tazobactam Sod (Zosyn 3.375gm Ivpb (Pre-Docked)) 50 mls @ 100 mls/hr IVPB Q8H-IV LISA PRN Reason: Protocol Last Admin: 03/24/17 09:30 Dose: 100 mls/hr Latanoprost (Xalatan 0.005% Eye Drops -) 1 drop OU HS [facility] Last Admin: 03/23/17 21:39 Dose: 1 drop Pantoprazole Sodium (Protonix -) 40 mg PO DAILY [facility] Last Admin: 03/24/17 09:29 Dose: 40 mg Prednisone (Deltasone -) 40 mg PO DAILY [facility] Last Admin: 03/24/17 09:29 Dose: 40 mg A/P Acute COPD Exacerbation r/o Pneumonia Sarcoidosis Chronic Hypoxic Respiratory Failure Lactic Acidosis Pulmonary HTN HTN - pain control - complete antibiotics per ID - prednisone taper - inhaled bronchodilators - O2 to keep SpO2 >90% - will need outpt PFTs and outpt f/u of imaging - can discharge from pulmonary standpoint Problem List - Problems (1) Acute exacerbation of chronic obstructive pulmonary disease Code(s): J44.1 - CHRONIC OBSTRUCTIVE PULMONARY DISEASE W (ACUTE) EXACERBATION (2) Chronic respiratory failure with hypoxia Code(s): J96.11 - CHRONIC RESPIRATORY FAILURE WITH HYPOXIA (3) Sarcoidosis Code(s): D86.9 - SARCOIDOSIS, UNSPECIFIED (4) Hypertension Code(s): I10 - ESSENTIAL (PRIMARY) HYPERTENSION Qualifiers: Hypertension type: essential hypertension Qualified Code(s): I10 - Essential (primary) hypertension (5) Pneumonia Code(s): J18.9 - PNEUMONIA, UNSPECIFIED ORGANISM Qualifiers: Pneumonia type: due to unspecified organism Laterality: unspecified laterality Lung location: lower lobe of lung Qualified Code(s): J18.1 - Lobar pneumonia, unspecified organism
--- NOTE | 2017-03-24 14:43 | PN ---
Progress Note, Physician History of Present Illness: back pain BETTER - Current Medication List Current Medications: Active Medications Acetaminophen (Tylenol -) 650 mg PO Q6H PRN PRN Reason: FEVER OR PAIN Last Admin: 03/24/17 09:41 Dose: 650 mg Albuterol Sulfate (Ventolin 0.083% Nebulizer Soln -) 1 amp NEB QIDR [facility] Last Admin: 03/24/17 11:36 Dose: 1 amp Apixaban (Eliquis -) 5 mg PO BID [facility] Last Admin: 03/24/17 09:29 Dose: 5 mg Atorvastatin Calcium (Lipitor -) 20 mg PO HS [facility] Last Admin: 03/23/17 21:38 Dose: 20 mg Diltiazem HCl (Cardizem Cd -) 180 mg PO DAILY [facility] Last Admin: 03/24/17 09:30 Dose: 180 mg Docusate Sodium (Colace -) 100 mg PO TID [facility] Last Admin: 03/24/17 14:26 Dose: 100 mg Gabapentin (Neurontin -) 100 mg PO TID [facility] Last Admin: 03/24/17 14:26 Dose: 100 mg Piperacillin Sod/Tazobactam Sod (Zosyn 3.375gm Ivpb (Pre-Docked)) 50 mls @ 100 mls/hr IVPB Q8H-IV [facility] PRN Reason: Protocol Last Admin: 03/24/17 09:30 Dose: 100 mls/hr Latanoprost (Xalatan 0.005% Eye Drops -) 1 drop OU [facility] Last Admin: 03/23/17 21:39 Dose: 1 drop Pantoprazole Sodium (Protonix -) 40 mg PO DAILY [facility] Last Admin: 03/24/17 09:29 Dose: 40 mg Prednisone (Deltasone -) 40 mg PO DAILY [facility] Last Admin: 03/24/17 09:29 Dose: 40 mg - Objective Vital Signs: Vital Signs Temperature 98.5 F 03/24/17 14:00 Pulse Rate 105 H 03/24/17 14:00 Respiratory Rate 20 03/24/17 09:09 Blood Pressure 151/66 03/24/17 14:00 O2 Sat by Pulse Oximetry (%) 99 03/24/17 09:00 Constitutional: Yes: No Distress HENT: Yes: Atraumatic Neck: Yes: Supple Cardiovascular: Yes: Regular Rate and Rhythm Respiratory: Yes: Rhonchi Gastrointestinal: Yes: Normal Bowel Sounds Extremities: Yes: WNL Neurological: Yes: Alert, Oriented Labs: CBC, BMP 03/24/17 05:55 03/24/17 05:55 INR, PTT INR 1.91 (0.82-1.09) H D 03/14/17 19:30 Problem List - Problems (1) Acute exacerbation of chronic obstructive pulmonary disease Assessment/Plan: iv steroids..switch to po duo nebs incentive spirometry Code(s): J44.1 - CHRONIC OBSTRUCTIVE PULMONARY DISEASE W (ACUTE) EXACERBATION (2) Fever Assessment/Plan: bcx...negative ucx...contaminated on abx no fever Code(s): R50.9 - FEVER, UNSPECIFIED Qualifiers: Fever type: due to other condition Qualified Code(s): R50.81 - Fever presenting with conditions classified elsewhere (3) Pneumonia Assessment/Plan: on abx Code(s): J18.9 - PNEUMONIA, UNSPECIFIED ORGANISM Qualifiers: Pneumonia type: due to unspecified organism Laterality: unspecified laterality Lung location: lower lobe of lung Qualified Code(s): J18.1 - Lobar pneumonia, unspecified organism (4) Chest tightness Code(s): R07.89 - OTHER CHEST PAIN (5) Coronary artery disease Assessment/Plan: troponin negative Code(s): I25.10 - ATHSCL HEART DISEASE OF [place] CORONARY ARTERY W/O ANG PCTRS (6) Hypertension Assessment/Plan: stable on meds Code(s): I10 - ESSENTIAL (PRIMARY) HYPERTENSION Qualifiers: Hypertension type: essential hypertension Qualified Code(s): I10 - Essential (primary) hypertension (7) Back pain Assessment/Plan: musculoskeletal prn tylenol NEURO CONSULT DONE WILL ORDER MRI LS W/O CONTRAST Code(s): M54.9 - DORSALGIA, UNSPECIFIED
--- NOTE | 2017-03-24 15:00 | PN ---
Progress Note, Physician History of Present Illness: patient doing well cough better breathing better back pain better - Current Medication List Current Medications: Active Medications Acetaminophen (Tylenol -) 650 mg PO Q6H PRN PRN Reason: FEVER OR PAIN Last Admin: 03/24/17 09:41 Dose: 650 mg Albuterol Sulfate (Ventolin 0.083% Nebulizer Soln -) 1 amp NEB QIDR [facility] Last Admin: 03/24/17 11:36 Dose: 1 amp Apixaban (Eliquis -) 5 mg PO BID [facility] Last Admin: 03/24/17 09:29 Dose: 5 mg Atorvastatin Calcium (Lipitor -) 20 mg PO HS [facility] Last Admin: 03/23/17 21:38 Dose: 20 mg Diltiazem HCl (Cardizem Cd -) 180 mg PO DAILY [facility] Last Admin: 03/24/17 09:30 Dose: 180 mg Docusate Sodium (Colace -) 100 mg PO TID [facility] Last Admin: 03/24/17 14:26 Dose: 100 mg Gabapentin (Neurontin -) 100 mg PO TID [facility] Last Admin: 03/24/17 14:26 Dose: 100 mg Latanoprost (Xalatan 0.005% Eye Drops -) 1 drop OU HS [facility] Last Admin: 03/23/17 21:39 Dose: 1 drop Pantoprazole Sodium (Protonix -) 40 mg PO DAILY [facility] Last Admin: 03/24/17 09:29 Dose: 40 mg Prednisone (Deltasone -) 40 mg PO DAILY [facility] Last Admin: 03/24/17 09:29 Dose: 40 mg - Objective Vital Signs: Vital Signs Temperature 98.5 F 03/24/17 14:00 Pulse Rate 105 H 03/24/17 14:00 Respiratory Rate 20 03/24/17 09:09 Blood Pressure 151/66 03/24/17 14:00 O2 Sat by Pulse Oximetry (%) 99 03/24/17 09:00 Constitutional: Yes: No Distress, Calm Cardiovascular: Yes: Regular Rate and Rhythm Respiratory: Yes: Regular, Rhonchi Gastrointestinal: Yes: Normal Bowel Sounds, Soft Musculoskeletal: Yes: WNL Extremities: Yes: WNL Neurological: Yes: Alert, Oriented Psychiatric: Yes: Alert Labs: CBC, BMP 03/24/17 05:55 03/24/17 05:55 INR, PTT INR 1.91 (0.82-1.09) H D 03/14/17 19:30 Assessment/Plan Problem List - Problems (1) Acute exacerbation of chronic obstructive pulmonary disease Code(s): J44.1 - CHRONIC OBSTRUCTIVE PULMONARY DISEASE W (ACUTE) EXACERBATION (2) Chronic respiratory failure with hypoxia Code(s): J96.11 - CHRONIC RESPIRATORY FAILURE WITH HYPOXIA (3) Sarcoidosis Code(s): D86.9 - SARCOIDOSIS, UNSPECIFIED (4) Hypertension Code(s): I10 - ESSENTIAL (PRIMARY) HYPERTENSION Qualifiers: Hypertension type: essential hypertension Qualified Code(s): I10 - Essential (primary) hypertension (5) Pneumonia Code(s): J18.9 - PNEUMONIA, UNSPECIFIED ORGANISM Qualifiers: Pneumonia type: due to unspecified organism Laterality: unspecified laterality Lung location: lower lobe of lung Qualified Code(s): J18.1 - Lobar pneumonia, unspecified organism plan continue current mgmt will see progress incentive spior rest as per pul will stop abx today rest as per primary
[2017-03-24] MEDS: LATANOPROST 0.005% OPHTH SOLN 2.5ML BOTTLE OU SCH (22:00)
[2017-03-24] MEDS: ATORVASTATIN CA 20 MG TABLET (FP) PO SCH (22:00)
[2017-03-25] MEDS ORDERED: PT OWN MED DRAWER 7, Y5N ONE ×3 (06:10→21:48)
[2017-03-25] MEDS: DOCUSATE SODIUM 100 MG CAPSULE (FP) PO SCH ×3 (06:27→21:52)
[2017-03-25] MEDS: GABAPENTIN 100 MG CAPSULE (FP) PO SCH ×3 (06:27→21:52)
[2017-03-25] MEDS: ALBUTEROL SO4 0.083% IH SOL 2.5 MG/3 ML VIAL.NEB. NEB SCH ×2 (06:50→11:15)
[2017-03-25] MEDS: ACETAMINOPHEN 325 MG TABLET (FP) PO PRN ×2 (08:46→18:37)
[2017-03-25] MEDS: predniSONE 20 MG TABLET (UD) PO SCH (09:12)
[2017-03-25] MEDS: APIXABAN 5 MG TABLET PO SCH ×2 (09:12→21:52)
[2017-03-25] MEDS: PANTOPRAZOLE 40 MG TABLET (FP) PO SCH (09:12)
--- NOTE | 2017-03-25 11:03 | PN ---
Progress Note (short form) - Note Progress Note: PULMONARY VSS/AFEBRILE SEVERE BACK PAIN/COUGH W SPUTUM AMBULATING WITH WALKER AND ASSIST OF TWO ANICTERIC SCATTERED B/L RHONCHI S1S2 BS+ 1+ EDEMA B/L LABS/MEDS/IMAGING/MICRO/NOTES/CT CHEST REVIEWED Acute COPD Exacerbation Infiltrates have a nodular appearance Sarcoidosis Chronic Hypoxic Respiratory Failure Lactic Acidosis Pulmonary HTN HTN BACK PAIN - monitoring off antibiotics - Prednisone to taper - inhaled bronchodilators/anticoagulation - O2 to keep SpO2 >90% - will need outpt PFTs and outpt f/u of imaging - L/S spine CT ordered Linda PATEL MD
--- NOTE | 2017-03-25 13:37 | DS ---
Physical Examination Vital Signs: Vital Signs Temperature 98.1 F 03/25/17 09:00 Pulse Rate 94 H 03/25/17 09:00 Respiratory Rate 18 03/25/17 09:00 Blood Pressure 130/91 03/25/17 09:00 O2 Sat by Pulse Oximetry (%) 99 03/25/17 09:00 Constitutional: Yes: No Distress HENT: Yes: Atraumatic Neck: Yes: Supple Cardiovascular: Yes: Regular Rate and Rhythm Respiratory: Yes: Rhonchi Gastrointestinal: Yes: Normal Bowel Sounds Extremities: Yes: WNL Edema: LLE: Trace, RLE: Trace Peripheral Pulses WNL: Yes Neurological: Yes: Alert, Oriented Labs: CBC, BMP 03/24/17 05:55 03/24/17 05:55 Discharge Summary Reason For Visit: FEVER,CHRONIC OBSTRUCTION PULMONARY DISEASE Current Active Problems Acute exacerbation of chronic obstructive pulmonary disease (Acute) Back pain (Acute) COPD (chronic obstructive pulmonary disease) (Acute) Chronic respiratory failure with hypoxia (Acute) Fever (Acute) Pneumonia (Acute) Sarcoidosis (Acute) - Instructions Referrals: Suzanna العراقي MD [Staff Physician] - STAFF,NOT ON [Primary Care Provider] - Disposition: HOME - Home Medications Comprehensive Discharge Medication List: Ambulatory Orders Albuterol 0.083% Nebulizer Lyudmila [Ventolin 0.083% Nebulizer Soln -] 1 amp NEB Q8H 01/19/17 Apixaban [Eliquis] 5 mg PO BID 01/19/17 Ascorbic Acid [Vitamin C -] 500 mg PO DAILY 01/19/17 Atorvastatin Ca [Lipitor] 20 mg PO DAILY 01/19/17 Bisacodyl Suppository [Dulcolax Suppository -] 10 mg RC PRN 01/19/17 Budesonide/Formeterol Fumarate [SYMBICORT 160/4.5mcg -] 1 inh PO BID 01/19/17 Diltiazem Cd [Cardizem Cd -] 180 mg PO DAILY 01/19/17 Folic Acid 1 mg PO DAILY 01/19/17 Furosemide [Lasix] 40 mg PO DAILY 01/19/17 Gabapentin 100 mg PO TID 01/19/17 Ipratropium 0.02% Nebulizer [Atrovent 0.02% Nebulizer -] 0.5 mg IH Q8H 01/19/17 Latanoprost 0.005% Eye Drops [Xalatan 0.005% Eye Drops -] 1 drop OU HS 01/19/17 Magnesium Hydroxide [Milk of Magnesia] 30 ml PO DAILY 01/19/17 Multivitamin [Poly-Vitamin] 1 each PO DAILY 01/19/17 Pantoprazole Sodium 40 mg PO DAILY 01/19/17 Potassium Chloride [Klor-Con 10] 10 meq PO DAILY 01/19/17 Prednisone 10 mg PO DAILY #30 tablet 03/23/17 refused mri for back prn tylenol for back pain off of abx, afebrile taper steroids see pulmonary /neuro as out pt pt is reluctant to go back as she does not like the current place she lives, nephew is trying to find another place but until then she will be staying at the current place pmd dr العراقي pt need to see her pmd on regular basis
[2017-03-25] MEDS: ATORVASTATIN CA 20 MG TABLET (FP) PO SCH (21:52)
[2017-03-25] MEDS: LATANOPROST 0.005% OPHTH SOLN 2.5ML BOTTLE OU SCH (21:52)
[2017-03-26] MEDS ORDERED: PT OWN MED DRAWER 7, Y5N ONE ×3 (00:01→20:58)
[2017-03-26] MEDS: DOCUSATE SODIUM 100 MG CAPSULE (FP) PO SCH ×4 (06:28→21:49)
[2017-03-26] MEDS: GABAPENTIN 100 MG CAPSULE (FP) PO SCH ×3 (06:28→21:43)
[2017-03-26] MEDS: APIXABAN 5 MG TABLET PO SCH ×2 (10:51→21:43)
[2017-03-26] MEDS: predniSONE 20 MG TABLET (UD) PO SCH (10:51)
[2017-03-26] MEDS: PANTOPRAZOLE 40 MG TABLET (FP) PO SCH (10:51)
[2017-03-26] MEDS: ACETAMINOPHEN 325 MG TABLET (FP) PO PRN (11:08)
--- NOTE | 2017-03-26 11:50 | PN ---
Progress Note (short form) - Note Progress Note: PULMONARY Breathing continues to slowly improve. Cough resolving but still with yellow sputum. No fevers or chills. Last Vital Signs Temp Pulse Resp BP Pulse Ox 97 F L 83 18 136/62 99 03/26/17 06:58 03/26/17 06:58 03/26/17 06:58 03/26/17 06:58 03/25/17 21:00 Gen: NAD at rest Heart: RRR Lung: scattered rhonchi Abd: soft, nontender Ext: no edema CBC, BMP 03/24/17 05:55 03/24/17 05:55 Active Medications Acetaminophen (Tylenol -) 650 mg PO Q6H PRN PRN Reason: FEVER OR PAIN Last Admin: 03/26/17 11:08 Dose: 650 mg Apixaban (Eliquis -) 5 mg PO BID [facility] Last Admin: 03/26/17 10:51 Dose: 5 mg Atorvastatin Calcium (Lipitor -) 20 mg PO HS [facility] Last Admin: 03/25/17 21:52 Dose: 20 mg Diltiazem HCl (Cardizem Cd -) 180 mg PO DAILY [facility] Last Admin: 03/26/17 10:51 Dose: 180 mg Docusate Sodium (Colace -) 100 mg PO TID [facility] Last Admin: 03/26/17 06:28 Dose: 100 mg Gabapentin (Neurontin -) 100 mg PO TID [facility] Last Admin: 03/26/17 06:28 Dose: 100 mg Latanoprost (Xalatan 0.005% Eye Drops -) 1 drop OU [facility] Last Admin: 03/25/17 21:52 Dose: 1 drop Pantoprazole Sodium (Protonix -) 40 mg PO DAILY [facility] Last Admin: 03/26/17 10:51 Dose: 40 mg Prednisone (Deltasone -) 40 mg PO DAILY [facility] Last Admin: 03/26/17 10:51 Dose: 40 mg A/P Acute COPD Exacerbation r/o Pneumonia Sarcoidosis Chronic Hypoxic Respiratory Failure Lactic Acidosis Pulmonary HTN HTN - pain control - complete antibiotics per ID - prednisone taper - inhaled bronchodilators - O2 to keep SpO2 >90% - will need outpt PFTs and outpt f/u of imaging - can discharge from pulmonary standpoint Problem List - Problems (1) Acute exacerbation of chronic obstructive pulmonary disease Code(s): J44.1 - CHRONIC OBSTRUCTIVE PULMONARY DISEASE W (ACUTE) EXACERBATION (2) Chronic respiratory failure with hypoxia Code(s): J96.11 - CHRONIC RESPIRATORY FAILURE WITH HYPOXIA (3) Sarcoidosis Code(s): D86.9 - SARCOIDOSIS, UNSPECIFIED (4) Hypertension Code(s): I10 - ESSENTIAL (PRIMARY) HYPERTENSION Qualifiers: Hypertension type: essential hypertension Qualified Code(s): I10 - Essential (primary) hypertension (5) Pneumonia Code(s): J18.9 - PNEUMONIA, UNSPECIFIED ORGANISM Qualifiers: Pneumonia type: due to unspecified organism Laterality: unspecified laterality Lung location: lower lobe of lung Qualified Code(s): J18.1 - Lobar pneumonia, unspecified organism
--- NOTE | 2017-03-26 14:52 | PN ---
Progress Note, Physician History of Present Illness: stable main issues back pain - Current Medication List Current Medications: Active Medications Acetaminophen (Tylenol -) 650 mg PO Q6H PRN PRN Reason: FEVER OR PAIN Last Admin: 03/26/17 11:08 Dose: 650 mg Apixaban (Eliquis -) 5 mg PO BID [facility] Last Admin: 03/26/17 10:51 Dose: 5 mg Atorvastatin Calcium (Lipitor -) 20 mg PO HS [facility] Last Admin: 03/25/17 21:52 Dose: 20 mg Diltiazem HCl (Cardizem Cd -) 180 mg PO DAILY [facility] Last Admin: 03/26/17 10:51 Dose: 180 mg Docusate Sodium (Colace -) 100 mg PO TID [facility] Last Admin: 03/26/17 13:57 Dose: Not Given Gabapentin (Neurontin -) 100 mg PO TID [facility] Last Admin: 03/26/17 13:57 Dose: 100 mg Latanoprost (Xalatan 0.005% Eye Drops -) 1 drop OU [facility] Last Admin: 03/25/17 21:52 Dose: 1 drop Pantoprazole Sodium (Protonix -) 40 mg PO DAILY [facility] Last Admin: 03/26/17 10:51 Dose: 40 mg Prednisone (Deltasone -) 40 mg PO DAILY [facility] Last Admin: 03/26/17 10:51 Dose: 40 mg - Objective Vital Signs: Vital Signs Temperature 98.4 F 03/26/17 14:17 Pulse Rate 110 H 03/26/17 14:17 Respiratory Rate 18 03/26/17 10:18 Blood Pressure 165/75 03/26/17 10:18 O2 Sat by Pulse Oximetry (%) 98 03/26/17 10:18 Constitutional: Yes: Calm, Mild Distress Cardiovascular: Yes: Regular Rate and Rhythm Respiratory: Yes: Regular, CTA Bilaterally Gastrointestinal: Yes: Normal Bowel Sounds, Soft Musculoskeletal: Yes: Back Pain Extremities: Yes: WNL Neurological: Yes: Alert, Oriented Psychiatric: Yes: Alert Labs: CBC, BMP 03/24/17 05:55 03/24/17 05:55 INR, PTT INR 1.91 (0.82-1.09) H D 03/14/17 19:30 Assessment/Plan Problem List - Problems (1) Acute exacerbation of chronic obstructive pulmonary disease Code(s): J44.1 - CHRONIC OBSTRUCTIVE PULMONARY DISEASE W (ACUTE) EXACERBATION (2) Chronic respiratory failure with hypoxia Code(s): J96.11 - CHRONIC RESPIRATORY FAILURE WITH HYPOXIA (3) Sarcoidosis Code(s): D86.9 - SARCOIDOSIS, UNSPECIFIED (4) Hypertension Code(s): I10 - ESSENTIAL (PRIMARY) HYPERTENSION Qualifiers: Hypertension type: essential hypertension Qualified Code(s): I10 - Essential (primary) hypertension (5) Pneumonia Code(s): J18.9 - PNEUMONIA, UNSPECIFIED ORGANISM Qualifiers: Pneumonia type: due to unspecified organism Laterality: unspecified laterality Lung location: lower lobe of lung Qualified Code(s): J18.1 - Lobar pneumonia, unspecified organism plan continue current mgmt stable off of abx incentive radha rest as per primary
--- NOTE | 2017-03-26 14:53 | PN ---
Progress Note, Physician History of Present Illness: breathing better says yellow sputum back pain main issue - Current Medication List Current Medications: Active Medications Acetaminophen (Tylenol -) 650 mg PO Q6H PRN PRN Reason: FEVER OR PAIN Last Admin: 03/26/17 11:08 Dose: 650 mg Apixaban (Eliquis -) 5 mg PO BID [facility] Last Admin: 03/26/17 10:51 Dose: 5 mg Atorvastatin Calcium (Lipitor -) 20 mg PO HS [facility] Last Admin: 03/25/17 21:52 Dose: 20 mg Diltiazem HCl (Cardizem Cd -) 180 mg PO DAILY [facility] Last Admin: 03/26/17 10:51 Dose: 180 mg Docusate Sodium (Colace -) 100 mg PO TID [facility] Last Admin: 03/26/17 13:57 Dose: Not Given Gabapentin (Neurontin -) 100 mg PO TID [facility] Last Admin: 03/26/17 13:57 Dose: 100 mg Latanoprost (Xalatan 0.005% Eye Drops -) 1 drop OU HS [facility] Last Admin: 03/25/17 21:52 Dose: 1 drop Pantoprazole Sodium (Protonix -) 40 mg PO DAILY [facility] Last Admin: 03/26/17 10:51 Dose: 40 mg Prednisone (Deltasone -) 40 mg PO DAILY [facility] Last Admin: 03/26/17 10:51 Dose: 40 mg - Objective Vital Signs: Vital Signs Temperature 98.4 F 03/26/17 14:17 Pulse Rate 110 H 03/26/17 14:17 Respiratory Rate 18 03/26/17 10:18 Blood Pressure 165/75 03/26/17 10:18 O2 Sat by Pulse Oximetry (%) 98 03/26/17 10:18 Constitutional: Yes: Calm, Mild Distress Cardiovascular: Yes: Regular Rate and Rhythm Respiratory: Yes: Regular Gastrointestinal: Yes: Normal Bowel Sounds, Soft Musculoskeletal: Yes: Back Pain Extremities: Yes: WNL Neurological: Yes: Alert, Oriented Psychiatric: Yes: Alert, Oriented Labs: CBC, BMP 03/24/17 05:55 03/24/17 05:55 INR, PTT INR 1.91 (0.82-1.09) H D 03/14/17 19:30 Assessment/Plan Problem List - Problems (1) Acute exacerbation of chronic obstructive pulmonary disease Code(s): J44.1 - CHRONIC OBSTRUCTIVE PULMONARY DISEASE W (ACUTE) EXACERBATION (2) Chronic respiratory failure with hypoxia Code(s): J96.11 - CHRONIC RESPIRATORY FAILURE WITH HYPOXIA (3) Sarcoidosis Code(s): D86.9 - SARCOIDOSIS, UNSPECIFIED (4) Hypertension Code(s): I10 - ESSENTIAL (PRIMARY) HYPERTENSION Qualifiers: Hypertension type: essential hypertension Qualified Code(s): I10 - Essential (primary) hypertension (5) Pneumonia Code(s): J18.9 - PNEUMONIA, UNSPECIFIED ORGANISM Qualifiers: Pneumonia type: due to unspecified organism Laterality: unspecified laterality Lung location: lower lobe of lung Qualified Code(s): J18.1 - Lobar pneumonia, unspecified organism plan continue current mgmt stable off of abx incentive radha rest as per primary patient did not get a mri because she says she cannot tolerate it
--- NOTE | 2017-03-26 18:22 | PN ---
Progress Note, Physician - Current Medication List Current Medications: Active Medications Acetaminophen (Tylenol -) 650 mg PO Q6H PRN PRN Reason: FEVER OR PAIN Last Admin: 03/26/17 11:08 Dose: 650 mg Apixaban (Eliquis -) 5 mg PO BID [facility] Last Admin: 03/26/17 10:51 Dose: 5 mg Atorvastatin Calcium (Lipitor -) 20 mg PO HS [facility] Last Admin: 03/25/17 21:52 Dose: 20 mg Diltiazem HCl (Cardizem Cd -) 180 mg PO DAILY [facility] Last Admin: 03/26/17 10:51 Dose: 180 mg Docusate Sodium (Colace -) 100 mg PO TID [facility] Last Admin: 03/26/17 13:57 Dose: Not Given Gabapentin (Neurontin -) 100 mg PO TID [facility] Last Admin: 03/26/17 13:57 Dose: 100 mg Latanoprost (Xalatan 0.005% Eye Drops -) 1 drop OU HS [facility] Last Admin: 03/25/17 21:52 Dose: 1 drop Pantoprazole Sodium (Protonix -) 40 mg PO DAILY [facility] Last Admin: 03/26/17 10:51 Dose: 40 mg Prednisone (Deltasone -) 40 mg PO DAILY [facility] Last Admin: 03/26/17 10:51 Dose: 40 mg - Objective Vital Signs: Vital Signs Temperature 98.4 F 03/26/17 14:17 Pulse Rate 110 H 03/26/17 14:17 Respiratory Rate 18 03/26/17 10:18 Blood Pressure 165/75 03/26/17 10:18 O2 Sat by Pulse Oximetry (%) 98 03/26/17 10:18 Constitutional: Yes: No Distress HENT: Yes: Atraumatic Neck: Yes: Supple Cardiovascular: Yes: Regular Rate and Rhythm Respiratory: Yes: Rhonchi Gastrointestinal: Yes: Normal Bowel Sounds Extremities: Yes: WNL Neurological: Yes: Alert, Oriented Labs: CBC, BMP 03/24/17 05:55 03/24/17 05:55 INR, PTT INR 1.91 (0.82-1.09) H D 03/14/17 19:30 Problem List - Problems (1) Acute exacerbation of chronic obstructive pulmonary disease Assessment/Plan: iv steroids..switch to po duo nebs incentive spirometry Code(s): J44.1 - CHRONIC OBSTRUCTIVE PULMONARY DISEASE W (ACUTE) EXACERBATION (2) Fever Assessment/Plan: bcx...negative ucx...contaminated on abx no fever Code(s): R50.9 - FEVER, UNSPECIFIED Qualifiers: Fever type: due to other condition Qualified Code(s): R50.81 - Fever presenting with conditions classified elsewhere (3) Pneumonia Assessment/Plan: on abx Code(s): J18.9 - PNEUMONIA, UNSPECIFIED ORGANISM Qualifiers: Pneumonia type: due to unspecified organism Laterality: unspecified laterality Lung location: lower lobe of lung Qualified Code(s): J18.1 - Lobar pneumonia, unspecified organism (4) Chest tightness Code(s): R07.89 - OTHER CHEST PAIN (5) Coronary artery disease Code(s): I25.10 - ATHSCL HEART DISEASE OF [place] CORONARY ARTERY W/O ANG PCTRS (6) Hypertension Code(s): I10 - ESSENTIAL (PRIMARY) HYPERTENSION Qualifiers: Hypertension type: essential hypertension Qualified Code(s): I10 - Essential (primary) hypertension (7) Back pain Code(s): M54.9 - DORSALGIA, UNSPECIFIED Assessment/Plan staying until tuesday
[2017-03-26] MEDS: ATORVASTATIN CA 20 MG TABLET (FP) PO SCH (21:42)
[2017-03-26] MEDS: LATANOPROST 0.005% OPHTH SOLN 2.5ML BOTTLE OU SCH (21:43)
[2017-03-27] MEDS: DOCUSATE SODIUM 100 MG CAPSULE (FP) PO SCH ×3 (06:30→21:33)
[2017-03-27] MEDS: GABAPENTIN 100 MG CAPSULE (FP) PO SCH ×3 (06:30→21:33)
[2017-03-27] MEDS: predniSONE 20 MG TABLET (UD) PO SCH (10:35)
[2017-03-27] MEDS: PANTOPRAZOLE 40 MG TABLET (FP) PO SCH (10:35)
[2017-03-27] MEDS: APIXABAN 5 MG TABLET PO SCH ×2 (10:35→21:33)
--- NOTE | 2017-03-27 11:51 | PN ---
Progress Note (short form) - Note Progress Note: PULMONARY Breathing continues to slowly improve. Cough still with yellow sputum. No fevers or chills. Last Vital Signs Temp Pulse Resp BP Pulse Ox 97.9 F 92 H 20 152/65 98 03/27/17 10:13 03/27/17 10:13 03/27/17 10:13 03/27/17 10:13 03/26/17 21:00 Gen: NAD at rest Heart: RRR Lung: scattered rhonchi Abd: soft, nontender Ext: no edema CBC, BMP 03/24/17 05:55 03/24/17 05:55 Active Medications Acetaminophen (Tylenol -) 650 mg PO Q6H PRN PRN Reason: FEVER OR PAIN Last Admin: 03/26/17 11:08 Dose: 650 mg Apixaban (Eliquis -) 5 mg PO BID [facility] Last Admin: 03/27/17 10:35 Dose: 5 mg Atorvastatin Calcium (Lipitor -) 20 mg PO HS [facility] Last Admin: 03/26/17 21:42 Dose: 20 mg Diltiazem HCl (Cardizem Cd -) 180 mg PO DAILY [facility] Last Admin: 03/27/17 10:35 Dose: 180 mg Docusate Sodium (Colace -) 100 mg PO TID [facility] Last Admin: 03/27/17 06:30 Dose: Not Given Gabapentin (Neurontin -) 100 mg PO TID [facility] Last Admin: 03/27/17 06:30 Dose: 100 mg Latanoprost (Xalatan 0.005% Eye Drops -) 1 drop OU HS [facility] Last Admin: 03/26/17 21:43 Dose: 1 drop Pantoprazole Sodium (Protonix -) 40 mg PO DAILY [facility] Last Admin: 03/27/17 10:35 Dose: 40 mg Prednisone (Deltasone -) 40 mg PO DAILY [facility] Last Admin: 03/27/17 10:35 Dose: 40 mg A/P Acute COPD Exacerbation r/o Pneumonia Sarcoidosis Chronic Hypoxic Respiratory Failure Lactic Acidosis Pulmonary HTN HTN - pain control - completed antibiotics - prednisone taper, can decrease by 10mg q5 days as outpt - inhaled bronchodilators - O2 to keep SpO2 >90% - will need outpt PFTs and outpt f/u of imaging - can discharge from pulmonary standpoint Problem List - Problems (1) Acute exacerbation of chronic obstructive pulmonary disease Code(s): J44.1 - CHRONIC OBSTRUCTIVE PULMONARY DISEASE W (ACUTE) EXACERBATION (2) Chronic respiratory failure with hypoxia Code(s): J96.11 - CHRONIC RESPIRATORY FAILURE WITH HYPOXIA (3) Sarcoidosis Code(s): D86.9 - SARCOIDOSIS, UNSPECIFIED (4) Hypertension Code(s): I10 - ESSENTIAL (PRIMARY) HYPERTENSION Qualifiers: Hypertension type: essential hypertension Qualified Code(s): I10 - Essential (primary) hypertension (5) Pneumonia Code(s): J18.9 - PNEUMONIA, UNSPECIFIED ORGANISM Qualifiers: Pneumonia type: due to unspecified organism Laterality: unspecified laterality Lung location: lower lobe of lung Qualified Code(s): J18.1 - Lobar pneumonia, unspecified organism
--- NOTE | 2017-03-27 12:25 | PN ---
Progress Note, Physician History of Present Illness: breathing better no new issues - Current Medication List Current Medications: Active Medications Acetaminophen (Tylenol -) 650 mg PO Q6H PRN PRN Reason: FEVER OR PAIN Last Admin: 03/26/17 11:08 Dose: 650 mg Apixaban (Eliquis -) 5 mg PO BID [facility] Last Admin: 03/27/17 10:35 Dose: 5 mg Atorvastatin Calcium (Lipitor -) 20 mg PO HS [facility] Last Admin: 03/26/17 21:42 Dose: 20 mg Diltiazem HCl (Cardizem Cd -) 180 mg PO DAILY [facility] Last Admin: 03/27/17 10:35 Dose: 180 mg Docusate Sodium (Colace -) 100 mg PO TID [facility] Last Admin: 03/27/17 06:30 Dose: Not Given Gabapentin (Neurontin -) 100 mg PO TID [facility] Last Admin: 03/27/17 06:30 Dose: 100 mg Latanoprost (Xalatan 0.005% Eye Drops -) 1 drop OU [facility] Last Admin: 03/26/17 21:43 Dose: 1 drop Pantoprazole Sodium (Protonix -) 40 mg PO DAILY [facility] Last Admin: 03/27/17 10:35 Dose: 40 mg Prednisone (Deltasone -) 40 mg PO DAILY [facility] Last Admin: 03/27/17 10:35 Dose: 40 mg - Objective Vital Signs: Vital Signs Temperature 97.9 F 03/27/17 10:13 Pulse Rate 92 H 03/27/17 10:13 Respiratory Rate 20 03/27/17 10:13 Blood Pressure 152/65 03/27/17 10:13 O2 Sat by Pulse Oximetry (%) 98 03/26/17 21:00 Constitutional: Yes: No Distress, Calm Cardiovascular: Yes: Regular Rate and Rhythm Respiratory: Yes: Regular, Rhonchi Gastrointestinal: Yes: Normal Bowel Sounds, Soft Musculoskeletal: Yes: WNL Extremities: Yes: WNL Neurological: Yes: Alert, Oriented Psychiatric: Yes: Alert Labs: CBC, BMP 03/24/17 05:55 03/24/17 05:55 INR, PTT INR 1.91 (0.82-1.09) H D 03/14/17 19:30 Assessment/Plan Problem List - Problems (1) Acute exacerbation of chronic obstructive pulmonary disease Code(s): J44.1 - CHRONIC OBSTRUCTIVE PULMONARY DISEASE W (ACUTE) EXACERBATION (2) Chronic respiratory failure with hypoxia Code(s): J96.11 - CHRONIC RESPIRATORY FAILURE WITH HYPOXIA (3) Sarcoidosis Code(s): D86.9 - SARCOIDOSIS, UNSPECIFIED (4) Hypertension Code(s): I10 - ESSENTIAL (PRIMARY) HYPERTENSION Qualifiers: Hypertension type: essential hypertension Qualified Code(s): I10 - Essential (primary) hypertension (5) Pneumonia Code(s): J18.9 - PNEUMONIA, UNSPECIFIED ORGANISM Qualifiers: Pneumonia type: due to unspecified organism Laterality: unspecified laterality Lung location: lower lobe of lung Qualified Code(s): J18.1 - Lobar pneumonia, unspecified organism plan continue current mgmt stable off of abx incentive radha rest as per primary
--- NOTE | 2017-03-27 17:52 | PN ---
Progress Note, Physician - Current Medication List Current Medications: Active Medications Acetaminophen (Tylenol -) 650 mg PO Q6H PRN PRN Reason: FEVER OR PAIN Last Admin: 03/26/17 11:08 Dose: 650 mg Apixaban (Eliquis -) 5 mg PO BID [facility] Last Admin: 03/27/17 10:35 Dose: 5 mg Atorvastatin Calcium (Lipitor -) 20 mg PO HS [facility] Last Admin: 03/26/17 21:42 Dose: 20 mg Diltiazem HCl (Cardizem Cd -) 180 mg PO DAILY [facility] Last Admin: 03/27/17 10:35 Dose: 180 mg Docusate Sodium (Colace -) 100 mg PO TID [facility] Last Admin: 03/27/17 15:11 Dose: Not Given Gabapentin (Neurontin -) 100 mg PO TID [facility] Last Admin: 03/27/17 15:10 Dose: 100 mg Latanoprost (Xalatan 0.005% Eye Drops -) 1 drop OU HS [facility] Last Admin: 03/26/17 21:43 Dose: 1 drop Pantoprazole Sodium (Protonix -) 40 mg PO DAILY [facility] Last Admin: 03/27/17 10:35 Dose: 40 mg Prednisone (Deltasone -) 40 mg PO DAILY [facility] Last Admin: 03/27/17 10:35 Dose: 40 mg - Objective Vital Signs: Vital Signs Temperature 98.2 F 03/27/17 14:50 Pulse Rate 96 H 03/27/17 14:50 Respiratory Rate 20 03/27/17 10:13 Blood Pressure 152/76 03/27/17 14:50 O2 Sat by Pulse Oximetry (%) 98 03/26/17 21:00 Labs: CBC, BMP 03/24/17 05:55 03/24/17 05:55 INR, PTT INR 1.91 (0.82-1.09) H D 03/14/17 19:30
[2017-03-27] MEDS ORDERED: PT OWN MED DRAWER 7, Y5N ONE ×2 (21:31→21:32)
[2017-03-27] MEDS: ATORVASTATIN CA 20 MG TABLET (FP) PO SCH (21:33)
[2017-03-27] MEDS: LATANOPROST 0.005% OPHTH SOLN 2.5ML BOTTLE OU SCH (21:34)
[2017-03-28] MEDS: GABAPENTIN 100 MG CAPSULE (FP) PO SCH ×2 (06:14→13:51)
[2017-03-28] MEDS: DOCUSATE SODIUM 100 MG CAPSULE (FP) PO SCH ×2 (06:15→13:51)
[2017-03-28] MEDS: ACETAMINOPHEN 325 MG TABLET (FP) PO PRN (07:57)
[2017-03-28] MEDS ORDERED: PT OWN MED DRAWER 7, Y5N ONE (09:15)
[2017-03-28] MEDS: predniSONE 20 MG TABLET (UD) PO SCH (09:19)
[2017-03-28] MEDS: PANTOPRAZOLE 40 MG TABLET (FP) PO SCH (09:19)
[2017-03-28] MEDS: APIXABAN 5 MG TABLET PO SCH (09:19)
[2017-03-28 10:14] VITALS: TEMP 98
--- NOTE | 2017-03-28 12:34 | PN ---
Progress Note (short form) - Note Progress Note: PULMONARY VSS/AFEBRILE SEVERE BACK PAIN/COUGH AMBULATING WITH WALKER AND ASSIST OF TWO ANICTERIC SCATTERED B/L RHONCHI S1S2 BS+ 1+ EDEMA B/L LABS/MEDS/IMAGING/MICRO/NOTES/CT CHEST REVIEWED Acute COPD Exacerbation Infiltrates have a nodular appearance Sarcoidosis Chronic Hypoxic Respiratory Failure Lactic Acidosis Pulmonary HTN HTN BACK PAIN - monitoring off antibiotics - Prednisone to taper - inhaled bronchodilators/anticoagulation - O2 to keep SpO2 >90% - will need outpt PFTs and outpt f/u of imaging - no objection to continuing treatment in Rehab Linda PATEL MD
[2017-03-28 14:12] VITALS: BP 130/84; PULSE 99
--- NOTE | 2017-03-28 14:15 | PN ---
Progress Note, Physician History of Present Illness: still c/o of weakness back pain cough minimal - Current Medication List Current Medications: Active Medications Acetaminophen (Tylenol -) 650 mg PO Q6H PRN PRN Reason: FEVER OR PAIN Last Admin: 03/28/17 07:57 Dose: 650 mg Apixaban (Eliquis -) 5 mg PO BID [facility] Last Admin: 03/28/17 09:19 Dose: 5 mg Atorvastatin Calcium (Lipitor -) 20 mg PO HS [facility] Last Admin: 03/27/17 21:33 Dose: 20 mg Diltiazem HCl (Cardizem Cd -) 180 mg PO DAILY [facility] Last Admin: 03/28/17 09:19 Dose: 180 mg Docusate Sodium (Colace -) 100 mg PO TID [facility] Last Admin: 03/28/17 13:51 Dose: Not Given Gabapentin (Neurontin -) 100 mg PO TID [facility] Last Admin: 03/28/17 13:51 Dose: 100 mg Latanoprost (Xalatan 0.005% Eye Drops -) 1 drop OU HS [facility] Last Admin: 03/27/17 21:34 Dose: 1 drop Pantoprazole Sodium (Protonix -) 40 mg PO DAILY [facility] Last Admin: 03/28/17 09:19 Dose: 40 mg Prednisone (Deltasone -) 40 mg PO DAILY [facility] Last Admin: 03/28/17 09:19 Dose: 40 mg - Objective Vital Signs: Vital Signs Temperature 98.0 F 03/28/17 14:00 Pulse Rate 99 H 03/28/17 14:00 Respiratory Rate 20 03/28/17 14:00 Blood Pressure 130/84 03/28/17 14:00 O2 Sat by Pulse Oximetry (%) 98 03/28/17 09:00 Constitutional: Yes: No Distress, Calm Cardiovascular: Yes: Regular Rate and Rhythm Respiratory: Yes: Regular, CTA Bilaterally Musculoskeletal: Yes: WNL Extremities: Yes: WNL Neurological: Yes: Alert, Oriented Psychiatric: Yes: Alert, Oriented Labs: CBC, BMP 03/24/17 05:55 03/24/17 05:55 INR, PTT INR 1.91 (0.82-1.09) H D 03/14/17 19:30 Assessment/Plan Problem List - Problems (1) Acute exacerbation of chronic obstructive pulmonary disease Code(s): J44.1 - CHRONIC OBSTRUCTIVE PULMONARY DISEASE W (ACUTE) EXACERBATION (2) Chronic respiratory failure with hypoxia Code(s): J96.11 - CHRONIC RESPIRATORY FAILURE WITH HYPOXIA (3) Sarcoidosis Code(s): D86.9 - SARCOIDOSIS, UNSPECIFIED (4) Hypertension Code(s): I10 - ESSENTIAL (PRIMARY) HYPERTENSION Qualifiers: Hypertension type: essential hypertension Qualified Code(s): I10 - Essential (primary) hypertension (5) Pneumonia Code(s): J18.9 - PNEUMONIA, UNSPECIFIED ORGANISM Qualifiers: Pneumonia type: due to unspecified organism Laterality: unspecified laterality Lung location: lower lobe of lung Qualified Code(s): J18.1 - Lobar pneumonia, unspecified organism plan continue current mgmt stable off of abx incentive radha rest as per primary
--- NOTE | 2017-03-28 18:47 | PN ---
Progress Note, Physician History of Present Illness: back pain BETTER - Objective Vital Signs: Vital Signs Temperature 98.0 F 03/28/17 14:00 Pulse Rate 99 H 03/28/17 14:00 Respiratory Rate 20 03/28/17 14:00 Blood Pressure 130/84 03/28/17 14:00 O2 Sat by Pulse Oximetry (%) 98 03/28/17 09:00 Constitutional: Yes: No Distress HENT: Yes: Atraumatic Neck: Yes: Supple Cardiovascular: Yes: Regular Rate and Rhythm Respiratory: Yes: Rhonchi Gastrointestinal: Yes: Normal Bowel Sounds Extremities: Yes: WNL Edema: No Peripheral Pulses WNL: Yes Labs: CBC, BMP 03/24/17 05:55 03/24/17 05:55 INR, PTT INR 1.91 (0.82-1.09) H D 03/14/17 19:30 Problem List - Problems (1) Acute exacerbation of chronic obstructive pulmonary disease Assessment/Plan: iv steroids..switch to po duo nebs incentive spirometry Code(s): J44.1 - CHRONIC OBSTRUCTIVE PULMONARY DISEASE W (ACUTE) EXACERBATION (2) Fever Assessment/Plan: bcx...negative ucx...contaminated on abx no fever Code(s): R50.9 - FEVER, UNSPECIFIED Qualifiers: Fever type: due to other condition Qualified Code(s): R50.81 - Fever presenting with conditions classified elsewhere (3) Pneumonia Assessment/Plan: on abx Code(s): J18.9 - PNEUMONIA, UNSPECIFIED ORGANISM Qualifiers: Pneumonia type: due to unspecified organism Laterality: unspecified laterality Lung location: lower lobe of lung Qualified Code(s): J18.1 - Lobar pneumonia, unspecified organism (4) Chest tightness Code(s): R07.89 - OTHER CHEST PAIN (5) Coronary artery disease Assessment/Plan: troponin negative Code(s): I25.10 - ATHSCL HEART DISEASE OF [place] CORONARY ARTERY W/O ANG PCTRS (6) Hypertension Assessment/Plan: stable on meds Code(s): I10 - ESSENTIAL (PRIMARY) HYPERTENSION Qualifiers: Hypertension type: essential hypertension Qualified Code(s): I10 - Essential (primary) hypertension (7) Back pain Assessment/Plan: musculoskeletal prn tylenol Code(s): M54.9 - DORSALGIA, UNSPECIFIED
--- NOTE | 2017-03-28 18:54 | DS ---
Physical Examination Vital Signs: Vital Signs Temperature 98.0 F 03/28/17 14:00 Pulse Rate 99 H 03/28/17 14:00 Respiratory Rate 20 03/28/17 14:00 Blood Pressure 130/84 03/28/17 14:00 O2 Sat by Pulse Oximetry (%) 98 03/28/17 09:00 Labs: CBC, BMP 03/24/17 05:55 03/24/17 05:55 Discharge Summary Reason For Visit: FEVER,CHRONIC OBSTRUCTION PULMONARY DISEASE - Instructions Referrals: Suzanna العراقي MD [Staff Physician] - STAFF,NOT ON [Primary Care Provider] - Disposition: HOME - Home Medications Comprehensive Discharge Medication List: Ambulatory Orders Albuterol 0.083% Nebulizer Lyudmila [Ventolin 0.083% Nebulizer Soln -] 1 amp NEB Q8H 01/19/17 Apixaban [Eliquis] 5 mg PO BID 01/19/17 Ascorbic Acid [Vitamin C -] 500 mg PO DAILY 01/19/17 Atorvastatin Ca [Lipitor] 20 mg PO DAILY 01/19/17 Bisacodyl Suppository [Dulcolax Suppository -] 10 mg RC PRN 01/19/17 Budesonide/Formeterol Fumarate [SYMBICORT 160/4.5mcg -] 1 inh PO BID 01/19/17 Diltiazem Cd [Cardizem Cd -] 180 mg PO DAILY 01/19/17 Folic Acid 1 mg PO DAILY 01/19/17 Furosemide [Lasix] 40 mg PO DAILY 01/19/17 Gabapentin 100 mg PO TID 01/19/17 Ipratropium 0.02% Nebulizer [Atrovent 0.02% Nebulizer -] 0.5 mg IH Q8H 01/19/17 Latanoprost 0.005% Eye Drops [Xalatan 0.005% Eye Drops -] 1 drop OU HS 01/19/17 Magnesium Hydroxide [Milk of Magnesia] 30 ml PO DAILY 01/19/17 Multivitamin [Poly-Vitamin] 1 each PO DAILY 01/19/17 Pantoprazole Sodium 40 mg PO DAILY 01/19/17 Potassium Chloride [Klor-Con 10] 10 meq PO DAILY 01/19/17 Prednisone 10 mg PO DAILY #30 tablet 03/23/17 mo home
== END 2017-03-28 15:58 | disposition home or self-care (01) | DRG 190 ==
LOC: JER 18:33 → JERBED 23:20 → J6S 03-15 04:34
PROVIDERS: ADMIT Internal Medicine; ATTEND Internal Medicine
DX: J44.0 Chronic obstructive pulmonary disease with (acute) lower respiratory infection (principal); J18.9 Pneumonia, unspecified organism; J96.11 Chronic respiratory failure with hypoxia; E87.2 Acidosis; J44.1 Chronic obstructive pulmonary disease with (acute) exacerbation; H40.9 Unspecified glaucoma; D51.0 Vitamin B12 deficiency anemia due to intrinsic factor deficiency; E78.5 Hyperlipidemia, unspecified; D86.9 Sarcoidosis, unspecified; G43.909 Migraine, unspecified, not intractable, without status migrainosus; Z99.81 Dependence on supplemental oxygen; I27.2 Other secondary pulmonary hypertension; I25.10 Atherosclerotic heart disease of native coronary artery without angina pectoris; M54.9 Dorsalgia, unspecified; F32.9 Major depressive disorder, single episode, unspecified; I11.0 Hypertensive heart disease with heart failure; I50.9 Heart failure, unspecified; E66.9 Obesity, unspecified; Z68.35 Body mass index [BMI] 35.0-35.9, adult
CPT/HCPCS: 36415; 71010-TC; 71250-TC; 72100-TC; 74000-TC; 80048; 80053; 81003; 81015; 82550; 82803; 83605; 83735; 83880; 84484; 85025; 85027; 85610; 85730; 86900; 86901; 87040; 87070; 87086; 87205; 87899; 93005; 93010; 93306-TC; 94010; 94640; 97116-GP; 97162-PG; 99284-25

== ENCOUNTER 2017-04-12 20:34 | Inpatient (IN) | payer OTHER ==
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
[2017-04-12] MEDS ORDERED: OXYCODONE/APAP 5/325MG COMBO TABLET PO ONE (21:57)
[2017-04-12] MEDS ORDERED: OXYCODONE/APAP 5/325MG COMBO TABLET ONE (22:00)
[2017-04-12 22:08] LABS: BASOPHIL 0.3 % (0-2.0); EOSINOPHIL 0.2 % (0-4.5); MCHC 30.3 g/dl (32.0-36.0); MEAN CELL VOLUME 65.9 fl (80-96); MEAN PLT VOLUME 9.4 fl (7.5-11.1); NEUTROPHILS 87.8 % (42.8-82.8); PLATELET COUNT 150 K/MM3 (134-434); RDW 19.7 % (11.6-15.6); WHITE BLOOD COUNT 12.1 K/mm3 (4.0-10.0)
[2017-04-12 22:55] LABS: ALBUMIN 2.8 g/dl (3.4-5.0); ANION GAP 10 (8-16); CALCIUM 8.6 mg/dL (8.5-10.1); CO2 31 mmol/L (21-32); GLUCOSE,RANDOM 126 mg/dL (74-106)
[2017-04-12 22:56] LABS: TROPONIN I 0.02 ng/ml (0.00-0.05)
[2017-04-12 22:59] LABS: ALK PHOS 133 U/L (45-117); BILIRUBIN,TOTAL 1.2 mg/dL (0.2-1.0); CREATININE 0.9 mg/dL (0.55-1.02); SGOT/AST 17 U/L (15-37); SGPT/ALT 22 U/L (12-78)
[2017-04-12] MEDS ORDERED: POTASSIUM CHLORIDE TABS 20 MEQ TABLET.ER (FP) PO ONE ×2 (23:09→23:33)
--- NOTE | 2017-04-13 06:59 | PDOC ---
*Physical Exam - Vital Signs Last Vital Signs Temp Pulse Resp BP Pulse Ox 98.9 F 97 H 22 117/62 97 04/13/17 06:26 04/13/17 06:26 04/13/17 06:26 04/13/17 06:26 04/13/17 06:26 ED Treatment Course - LABORATORY CBC & Chemistry Diagram: 04/12/17 21:40 04/12/17 21:40 - ADDITIONAL ORDERS Additional order review: Laboratory Results 04/12/17 04/12/17 21:47 21:40 Sodium 138 Potassium 3.3 L D Chloride 97 L Carbon Dioxide 31 Anion Gap 10 BUN 11 D Creatinine 0.9 D Creat Clearance w eGFR 59.23 Random Glucose 126 H Calcium 8.6 Total Bilirubin 1.2 H D AST 17 D ALT 22 D Alkaline Phosphatase 133 H D Creatine Kinase 93 Troponin I 0.02 Total Protein 6.0 L Albumin 2.8 L D Lipase 54 L 04/12/17 21:40 RBC 5.22 H MCV 65.9 L MCHC 30.3 L RDW 19.7 H D MPV 9.4 Neutrophils % 87.8 H D Lymphocytes % 5.9 L D Monocytes % 5.8 D Eosinophils % 0.2 Basophils % 0.3 D - Medications Given in the ED: ED Medications Discontinued Medications Generic Name Dose Route Start Last Admin Trade Name Khang PRN Reason Stop Dose Admin Oxycodone/Acetaminophen 1 combo 04/12/17 21:57 04/12/17 22:02 Percocet 5/325 - PO 04/12/17 21:58 1 combo ONCE ONE Administration Potassium Chloride 40 meq 04/12/17 23:09 04/12/17 23:28 K-Dur - PO 04/12/17 23:10 40 meq ONCE ONE Administration *DC/Admit/Observation/Transfer Diagnosis at time of Disposition: Chest pain Qualifiers: Chest pain type: unspecified Qualified Code(s): R07.9 - Chest pain, unspecified Diarrhea Qualifiers: Diarrhea type: unspecified type Qualified Code(s): R19.7 - Diarrhea, unspecified Low back pain Qualifiers: Chronicity: acute Back pain laterality: bilateral Sciatica presence: without sciatica Qualified Code(s): M54.5 - Low back pain - Discharge Dispostion Condition at time of disposition: Stable Admit: Yes - Referrals Referrals: Silverio Dewitt MD [Primary Care Provider] - - Patient Instructions - Post Discharge Activity
[2017-04-13] MEDS ORDERED: ALBUTEROL SO4 2.5/IPRATROPIUM 0.5 INH SOL 3 ML VIAL.NEB. NEB PRN (08:02)
[2017-04-13] MEDS ORDERED: BISACODYL 5 MG TABLET.DR (FP) PO PRN (08:02)
[2017-04-13] MEDS ORDERED: DIPHENOXYLATE 2.5/ATROPINE.025 1 COMBO TABLET PO PRN (08:02)
[2017-04-13] MEDS ORDERED: POTASSIUM CHLORIDE TABS 10 MEQ TABLET.ER (FP) ONE (09:09)
[2017-04-13] MEDS ORDERED: FUROSEMIDE 20 MG TABLET (FP) PO SCH (10:00)
[2017-04-13] MEDS ORDERED: BUDESONIDE/FORMETEROL FUMARATE 160/4.5 mcg INHALER IH SCH (10:00)
[2017-04-13] MEDS: RAMIPRIL 2.5 MG CAPSULE (FP) PO SCH (10:18)
[2017-04-13] MEDS: POTASSIUM CHLORIDE TABS 10 MEQ TABLET.ER (FP) PO SCH (10:18)
[2017-04-13] MEDS: predniSONE 10 MG TABLET (UD) PO SCH (10:18)
[2017-04-13] MEDS: APIXABAN 5 MG TABLET PO SCH ×2 (10:18→22:31)
[2017-04-13] MEDS: PANTOPRAZOLE 40 MG TABLET (FP) PO SCH (10:19)
[2017-04-13] MEDS: LIDOCAINE 5% TOPICAL PATCH TP SCH (10:19)
[2017-04-13] MEDS: GABAPENTIN 100 MG CAPSULE (FP) PO SCH (10:19)
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
[2017-04-13 12:00] LABS: URINE APPEARANCE CLEAR; URINE BILIRUBIN NEGATIVE (NEGATIVE); URINE BLOOD NEGATIVE (NEGATIVE); URINE COLOR YELLOW; URINE GLUCOSE (UA) NEGATIVE (NEGATIVE); URINE KETONE NEGATIVE (NEGATIVE); URINE LEUK ESTERASE NEGATIVE (NEGATIVE); URINE NITRITE NEGATIVE (NEGATIVE); URINE PROTEIN NEGATIVE (NEGATIVE); URINE UROBILINOGEN 4.0 E.U/dl E.U./dl (0.2-1.0)
[2017-04-13] MEDS: oxyCODONE HCL 5 MG TABLET PO PRN (16:21)
[2017-04-13] MEDS: ACETAMINOPHEN 325 MG TABLET (FP) PO PRN (16:22)
[2017-04-13 16:37] VITALS: BMI 36.2
--- NOTE | 2017-04-13 17:13 | CON.CARD ---
Cardiology Consult (text) - Consultation Consultation Note: CC: CP 80 yo with h/o afib on eliquis, htn, hld, pulm sarcoid, copd/asthma, on home oxygen, diastolic HF, pernicous anemia, migrain, OA, vertigo, p/w diarrhea/ fever and noted to have associated CP. Patient has a prior h/o chronic weakness/fatigue/body+chest heaviness ( previously described as chronic central chest pressure) present for 10+ yrs, thought to be non-cardiac based on prior work ups. - endorses this discomfort is related to symptoms of sob and improves with oxygen. Patient states she has this pain daily and states that it is the same chest heaviness that she has endorsed here. No new CP/discomfort. + abd pain, nausea (no vomiting) + diarrhea, f/c/s, slightly decreased po intake. States she has been having diarrhea 3-4 times a day. has continued lasix throughout this time. Sx's ongoing for > 2 weeks. She has no palps, dizziness, loc, pnd, orthopnea. She has chronic le edema recently improved. Chronic sob stable. follows dr. Moreland for Cardio, last seen 2014 pmh: per hpi psh: spine surgery, hysterectomy social: no tob fam:+ GI cancer ros: per hpi; no wt loss, rash, cough, nasal congestion; WEBER, vision changes meds: Ambulatory Orders Albuterol 0.083% Nebulizer Lyudmila [Ventolin 0.083% Nebulizer Soln -] 1 amp NEB Q8H 01/19/17 Apixaban [Eliquis] 5 mg PO BID 01/19/17 Ascorbic Acid [Vitamin C -] 500 mg PO DAILY 01/19/17 Atorvastatin Ca [Lipitor] 20 mg PO DAILY 01/19/17 Bisacodyl Suppository [Dulcolax Suppository -] 10 mg RC PRN 01/19/17 Budesonide/Formeterol Fumarate [SYMBICORT 160/4.5mcg -] 1 inh PO BID 01/19/17 Diltiazem Cd [Cardizem Cd -] 180 mg PO DAILY 01/19/17 Folic Acid 1 mg PO DAILY 01/19/17 Furosemide [Lasix] 40 mg PO DAILY 01/19/17 Gabapentin 100 mg PO TID 01/19/17 Ipratropium 0.02% Nebulizer [Atrovent 0.02% Nebulizer -] 0.5 mg IH Q8H 01/19/17 Latanoprost 0.005% Eye Drops [Xalatan 0.005% Eye Drops -] 1 drop OU HS 01/19/17 Magnesium Hydroxide [Milk of Magnesia] 30 ml PO DAILY 01/19/17 Multivitamin [Poly-Vitamin] 1 each PO DAILY 01/19/17 Pantoprazole Sodium 40 mg PO DAILY 01/19/17 Potassium Chloride [Klor-Con 10] 10 meq PO DAILY 01/19/17 Prednisone 10 mg PO DAILY #30 tablet 03/23/17 Diphenoxylate 2.5/Atropine.025 [Lomotil -] 1 combo PO DAILY 04/12/17 Ramipril [Altace] 2.5 mg PO DAILY 04/12/17 Current Medications Acetaminophen (Tylenol -) 650 mg PO Q6H PRN PRN Reason: FEVER OR PAIN Last Admin: 04/13/17 16:22 Dose: 650 mg Albuterol/Ipratropium (Duoneb -) 1 amp NEB Q6H PRN PRN Reason: SHORTNESS OF BREATH Last Admin: 04/13/17 13:07 Dose: 1 amp Apixaban (Eliquis -) 5 mg PO BID [facility] Last Admin: 04/13/17 10:18 Dose: 5 mg Atorvastatin Calcium (Lipitor -) 20 mg PO [facility] Budesonide/Formoterol Fumarate (Symbicort 160/4.5mcg -) 2 puff IH BID [facility] Diltiazem HCl (Cardizem Cd -) 180 mg PO DAILY [facility] Last Admin: 04/13/17 10:18 Dose: 180 mg Diphenoxylate HCl/Atropine (Lomotil -) 1 combo PO Q8H PRN PRN Reason: DIARRHEA Furosemide (Lasix -) 20 mg PO DAILY [facility] Last Admin: 04/13/17 10:19 Dose: 20 mg Gabapentin (Neurontin -) 100 mg PO DAILY [facility] Last Admin: 04/13/17 10:19 Dose: 100 mg Sodium Chloride (Normal Saline -) 1,000 mls @ 100 mls/hr IV ASDIR [facility] Stop: 04/16/17 04:14 Last Admin: 04/13/17 19:12 Dose: 100 mls/hr Metronidazole (Flagyl 500mg Premixed Ivpb -) 100 mls @ 100 mls/hr IVPB Q8H-IV LISA Last Admin: 04/13/17 19:12 Dose: 100 mls/hr Latanoprost (Xalatan 0.005% Eye Drops -) 1 drop OD HS [facility] Lidocaine (Lidoderm Patch -) 1 patch TP DAILY [facility] Last Admin: 04/13/17 10:19 Dose: 1 patch Miscellaneous (Lidoderm Patch Removal) 1 each MC DAILY@2200 [facility] Oxycodone HCl (Roxicodone -) 5 mg PO Q6H PRN PRN Reason: PAIN Last Admin: 04/13/17 16:21 Dose: 5 mg Pantoprazole Sodium (Protonix -) 40 mg PO DAILY [facility] Last Admin: 04/13/17 10:19 Dose: 40 mg Potassium Chloride (K-Dur -) 10 meq PO DAILY [facility] Last Admin: 04/13/17 10:18 Dose: 10 meq Prednisone (Deltasone -) 10 mg PO DAILY [facility] Last Admin: 04/13/17 10:18 Dose: 10 mg Ramipril (Altace -) 2.5 mg PO DAILY [facility] Last Admin: 04/13/17 10:18 Dose: 2.5 mg Vancomycin HCl (Vancomycin Oral Solution) 250 mg PO Q6HPO [facility] pe: Vital Signs - 24 hr 04/12/17 04/13/17 04/13/17 20:59 03:37 06:26 Temperature 98.7 F 98.7 F 98.9 F Pulse Rate 97 H Pulse Rate [ 88 97 H Apical] Respiratory 18 18 22 Rate Blood Pressure 115/58 Blood Pressure 120/54 117/62 [Right Arm] O2 Sat by Pulse 100 97 97 Oximetry (%) 04/13/17 04/13/17 04/13/17 07:35 07:38 10:05 Temperature 98.9 F Pulse Rate Pulse Rate [ 98 H 92 H Apical] Respiratory 24 22 Rate Blood Pressure Blood Pressure 123/64 144/70 [Right Arm] O2 Sat by Pulse 97 96 98 Oximetry (%) 04/13/17 04/13/17 04/13/17 13:11 14:59 16:27 Temperature 98.2 F 100.1 F H Pulse Rate 101 H Pulse Rate [ 88 92 H Apical] Respiratory 22 22 20 Rate Blood Pressure 133/60 Blood Pressure 140/70 125/60 [Right Arm] O2 Sat by Pulse 98 Oximetry (%) 04/13/17 17:06 Temperature Pulse Rate Pulse Rate [ Apical] Respiratory 20 Rate Blood Pressure Blood Pressure [Right Arm] O2 Sat by Pulse 98 Oximetry (%) Intake & Output 04/11/17 04/12/17 04/13/17 04/14/17 07:59 07:59 07:59 07:59 Weight 200 lb 198 lb mildly uncomfortable, calm no jvd, neck supple irregularly irregular s1s2 2/6 sys murmur at lsb. ctab, nl eff aaox3 trace-1+ le edema bl, no c/c abd nd pos bs, soft + tenderness diffusely pos dp/pt no diaphoresis/jaundice aaox3 no carotid bruits no labs today Labs from 04/1204/12/17 21:40 04/12/17 21:40 Laboratory Tests 04/12/17 04/12/17 21:40 21:47 Creatine Kinase 93 Troponin I 0.02 Albumin 2.8 L D Lipase 54 L Laboratory Tests 04/12/17 21:40 Total Bilirubin 1.2 H D AST 17 D ALT 22 D Alkaline Phosphatase 133 H D ecg: afib, 96 bpm. no ischemic changes echo 03/21/2017: Mild conc lvh. nl lv/rv size/fn, mod ronnie, mod mr, mod tr, rvsp 40-50 cxr: CM, no acute pathology a/p: 80 yo with h/o afib on eliquis, htn, hld, pulm sarcoid, copd/asthma, on home oxygen, diastolic HF, pernicous anemia, migraine, OA, vertigo, p/w diarrhea/ fever and noted to have associated CP. diarrhea/fever - on IVF, abx. ongoing mgm't per gi/pmd CP/+chest heaviness: - Same symptoms has her chronic daily non-cardiac chest heaviness. Symptoms have been present for years and she had cardiac w/u for this including cath 2009 at [facility] showing non obstructive cad. EKG here without ischemic changes. ce' s neg x1. No further sets ordered, will order now and complete AYAKA. - if repeat enzymes negative, can d/c tele. afib - overall rate controlled given current condition on outpatient dilt. pain/ nausea control per pmd/gi. - electrolyte repletion diastolic hf - currently with poor po intake and diarrhea. review of abdominal ct does not show significant edema/effusions. Chronic LE edema persists but according to patient it is slightly better than baseline. - per GI on IVF so will stop po lasix --> close monitoring of volume status - daily weights, strict i/o. daily bmp. - lyte repletion htn: Stable on home meds of dilt ramipril. hld: On statin. sarcoid/copd - on O2 - per pmd
--- NOTE | 2017-04-13 18:01 | CON.GI ---
Consult Consult Specialty:: Gastroenterology Referred by:: Dr Rios - History of Present Illness History of Present Illness: The patient is an 86 yo F with a past medical history significant for pernicious anemia, COPD, CHF, HTN, HLD, glaucoma, sarcoidosis, migraines, arthritis, septicemia and colon polyp was admitted because of abdominal pain, nausea and frequent diarrhea.For the past 3 weeks the patient developed diarrhea which is non-bloody associated with recent antibiotic use. - Past Medical History [employer]: Yes: Vertigo (intermittent) Cardio/Vascular: Yes: HTN, Hyperlipdemia Pulmonary: Yes: Asthma, COPD Renal/: Yes: Hematuria. No: Renal Calculi Psych: Yes: Depression - Past Surgical History Past Surgical History: Yes: Cholecystectomy - Alcohol/Substance Use Hx Alcohol Use: No - Smoking History Smoking history: Never smoked Have you smoked in the past 12 months: No Aproximately how many cigarettes per day: 0 - Social History Usual Living Arrangement: Other (most recently has been at [place]/ [facility], and since developing pain has been ambulating with RW) History of Recent Travel: No Home Medications - Allergies Allergies/Adverse Reactions: Allergies Allergy/AdvReac Type Severity Reaction Status Date / Time No Known Allergies Allergy Verified 04/13/17 03:40 - Home Medications Home Medications: Ambulatory Orders Albuterol 0.083% Nebulizer Lyudmila [Ventolin 0.083% Nebulizer Soln -] 1 amp NEB Q8H 01/19/17 Apixaban [Eliquis] 5 mg PO BID 01/19/17 Ascorbic Acid [Vitamin C -] 500 mg PO DAILY 01/19/17 Atorvastatin Ca [Lipitor] 20 mg PO DAILY 01/19/17 Bisacodyl Suppository [Dulcolax Suppository -] 10 mg RC PRN 01/19/17 Budesonide/Formeterol Fumarate [SYMBICORT 160/4.5mcg -] 1 inh PO BID 01/19/17 Diltiazem Cd [Cardizem Cd -] 180 mg PO DAILY 01/19/17 Folic Acid 1 mg PO DAILY 01/19/17 Furosemide [Lasix] 40 mg PO DAILY 01/19/17 Gabapentin 100 mg PO TID 01/19/17 Ipratropium 0.02% Nebulizer [Atrovent 0.02% Nebulizer -] 0.5 mg IH Q8H 01/19/17 Latanoprost 0.005% Eye Drops [Xalatan 0.005% Eye Drops -] 1 drop OU HS 01/19/17 Magnesium Hydroxide [Milk of Magnesia] 30 ml PO DAILY 01/19/17 Multivitamin [Poly-Vitamin] 1 each PO DAILY 01/19/17 Pantoprazole Sodium 40 mg PO DAILY 01/19/17 Potassium Chloride [Klor-Con 10] 10 meq PO DAILY 01/19/17 Prednisone 10 mg PO DAILY #30 tablet 03/23/17 Diphenoxylate 2.5/Atropine.025 [Lomotil -] 1 combo PO DAILY 04/12/17 Ramipril [Altace] 2.5 mg PO DAILY 04/12/17 Family Disease History - Family Disease History Family History: Denies (colon and gastric cancer) Review of Systems - Review of Systems Constitutional: denies: Fever Eyes: denies: Blurred Vision HENT: denies: Difficult Swallowing Neck: denies: Decreased ROM Cardiovascular: denies: Chest Pain Respiratory: denies: Cough Gastrointestinal: reports: Abdominal Pain, Bloating, Diarrhea, Nausea. denies: Indigestion, Melena, Vomiting Physical Exam-GI Vital Signs: Vital Signs Temperature 100.1 F H 04/13/17 16:27 Pulse Rate 101 H 04/13/17 16:27 Respiratory Rate 20 04/13/17 17:06 Blood Pressure 133/60 04/13/17 16:27 O2 Sat by Pulse Oximetry (%) 98 04/13/17 17:06 Constitutional: Yes: Well Nourished, Poor Hygeine HENT: Yes: Atraumatic Neck: Yes: Supple Cardiovascular: Yes: Regular Rate and Rhythm Respiratory: Yes: CTA Bilaterally ...Auscultate: Yes: Normoactive Bowel Sounds ...Palpate: Yes: Soft, Tenderness. No: Firm/Rigid, Guarding, Hepatomegaly, Mass , Pulsatile Mass, Splenomegaly ...Percussion: Yes: Tympanitic (--diffuse) Labs: CBC,CMP WBC 12.1 K/mm3 (4.0-10.0) H 04/12/17 21:40 RBC 5.22 M/mm3 (3.60-5.2) H 04/12/17 21:40 Hgb 10.4 GM/dL (10.7-15.3) L 04/12/17 21:40 Hct 34.4 % (32.4-45.2) 04/12/17 21:40 MCV 65.9 fl (80-96) L 04/12/17 21:40 MCHC 30.3 g/dl (32.0-36.0) L 04/12/17 21:40 RDW 19.7 % (11.6-15.6) H D 04/12/17 21:40 Plt Count 150 K/MM3 (134-434) D 04/12/17 21:40 MPV 9.4 fl (7.5-11.1) 04/12/17 21:40 Neutrophils % 87.8 % (42.8-82.8) H D 04/12/17 21:40 Lymphocytes % 5.9 % (8-40) L D 04/12/17 21:40 Monocytes % 5.8 % (3.8-10.2) D 04/12/17 21:40 Eosinophils % 0.2 % (0-4.5) 04/12/17 21:40 Basophils % 0.3 % (0-2.0) D 04/12/17 21:40 Sodium 138 mmol/L (136-145) 04/12/17 21:40 Potassium 3.3 mmol/L (3.5-5.1) L D 04/12/17 21:40 Chloride 97 mmol/L (98-107) L 04/12/17 21:40 Carbon Dioxide 31 mmol/L (21-32) 04/12/17 21:40 Anion Gap 10 (8-16) 04/12/17 21:40 BUN 11 mg/dL (7-18) D 04/12/17 21:40 Creatinine 0.9 mg/dL (0.55-1.02) D 04/12/17 21:40 Creat Clearance w eGFR 59.23 (>60) 04/12/17 21:40 Random Glucose 126 mg/dL (74-106) H 04/12/17 21:40 Calcium 8.6 mg/dL (8.5-10.1) 04/12/17 21:40 Total Bilirubin 1.2 mg/dL (0.2-1.0) H D 04/12/17 21:40 AST 17 U/L (15-37) D 04/12/17 21:40 ALT 22 U/L (12-78) D 04/12/17 21:40 Alkaline Phosphatase 133 U/L (45-117) H D 04/12/17 21:40 Creatine Kinase 93 IU/L (26-192) 04/12/17 21:47 Troponin I 0.02 ng/ml (0.00-0.05) 04/12/17 21:47 Total Protein 6.0 g/dl (6.4-8.2) L 04/12/17 21:40 Albumin 2.8 g/dl (3.4-5.0) L D 04/12/17 21:40 Lipase 54 U/L (73-393) L 04/12/17 21:40 Problem List - Problems (1) Infectious diarrhea Assessment/Plan: R> IV flagyl stool WBC, guaiac,stool C.diff Vancomycin 250 mg qid Code(s): A09 - INFECTIOUS GASTROENTERITIS AND COLITIS, UNSPECIFIED
[2017-04-13] MEDS ORDERED: SODIUM CHLORIDE 1,000 ML IV SCH (18:15)
[2017-04-13] MEDS: METRONIDAZOLE 500 MG PREMIXED 100 ML IVPB SCH (19:12)
[2017-04-13] MEDS ORDERED: POTASSIUM CHLORIDE ORAL LIQUID 20 MEQ/15 ML PO ONE ×3 (19:51→23:00)
[2017-04-13] MEDS: KCL 10 MEQ IVPB 100 ML IVPB SCH ×2 (20:23→22:58)
[2017-04-13 21:17] LABS: ALBUMIN 2.6 g/dl (3.4-5.0); ANION GAP 10 (8-16); CALCIUM 8.7 mg/dL (8.5-10.1); CO2 31 mmol/L (21-32); GLUCOSE,RANDOM 120 mg/dL (74-106)
[2017-04-13 21:22] LABS: ALK PHOS 125 U/L (45-117); BILIRUBIN,TOTAL 0.9 mg/dL (0.2-1.0); CREATININE 0.8 mg/dL (0.55-1.02); SGOT/AST 17 U/L (15-37); SGPT/ALT 20 U/L (12-78); TOT PROT 5.6 g/dl (6.4-8.2); TROPONIN I < 0.02 ng/ml (0.00-0.05)
[2017-04-13] MEDS: ATORVASTATIN CA 20 MG TABLET (FP) PO SCH (22:31)
[2017-04-13] MEDS: BUDESONIDE/FORMETEROL FUMARATE 160/4.5 mcg INHALER IH SCH (22:33)
[2017-04-13] MEDS: LATANOPROST 0.005% OPHTH SOLN 2.5ML BOTTLE OD SCH (22:34)
[2017-04-13] MEDS: VANCOMYCIN 250 MG/5 ML ORAL SOLUTION PO SCH (23:12)
[2017-04-13] MEDS: LIDOCAINE PATCH REMOVAL MC SCH (23:14)
[2017-04-14] MEDS: METRONIDAZOLE 500 MG PREMIXED 100 ML IVPB SCH ×3 (01:55→17:38)
[2017-04-14] MEDS: VANCOMYCIN 250 MG/5 ML ORAL SOLUTION PO SCH ×4 (06:15→23:40)
[2017-04-14] MEDS: SODIUM CHLORIDE 1,000 ML IV SCH (06:15)
[2017-04-14] MEDS ORDERED: PT OWN MED DRAWER 7, Y5N ONE ×3 (06:29→20:05)
[2017-04-14 08:28] LABS: BASOPHIL 0.4 % (0-2.0); EOSINOPHIL 1.8 % (0-4.5); MCH 20.3 pg (25.7-33.7); MEAN CELL VOLUME 65.3 fl (80-96); MEAN PLT VOLUME 9.1 fl (7.5-11.1); NEUTROPHILS 64.3 % (42.8-82.8); PLATELET COUNT 119 K/MM3 (134-434); RDW 19.5 % (11.6-15.6); WHITE BLOOD COUNT 5.8 K/mm3 (4.0-10.0)
[2017-04-14 08:44] LABS: INR 1.97 (0.82-1.09)
[2017-04-14 08:55] LABS: BILIRUBIN,TOTAL 0.6 mg/dL (0.2-1.0)
[2017-04-14 09:12] LABS: ALBUMIN 2.3 g/dl (3.4-5.0); ALK PHOS 108 U/L (45-117); ANION GAP 8 (8-16); CALCIUM 8.5 mg/dL (8.5-10.1); CO2 29 mmol/L (21-32); CREATININE 0.6 mg/dL (0.55-1.02); GLUCOSE,RANDOM 97 mg/dL (74-106); SGOT/AST 17 U/L (15-37); SGPT/ALT 17 U/L (12-78); TOT PROT 4.9 g/dl (6.4-8.2)
[2017-04-14] MEDS: PANTOPRAZOLE 40 MG TABLET (FP) PO SCH (09:49)
[2017-04-14] MEDS: POTASSIUM CHLORIDE TABS 10 MEQ TABLET.ER (FP) PO SCH (09:49)
[2017-04-14] MEDS: GABAPENTIN 100 MG CAPSULE (FP) PO SCH (09:49)
[2017-04-14] MEDS: predniSONE 10 MG TABLET (UD) PO SCH (09:49)
[2017-04-14] MEDS: RAMIPRIL 2.5 MG CAPSULE (FP) PO SCH (09:49)
[2017-04-14] MEDS: APIXABAN 5 MG TABLET PO SCH ×2 (09:49→21:45)
[2017-04-14] MEDS: BUDESONIDE/FORMETEROL FUMARATE 160/4.5 mcg INHALER IH SCH ×2 (09:50→21:41)
[2017-04-14] MEDS: LIDOCAINE 5% TOPICAL PATCH TP SCH (09:50)
--- NOTE | 2017-04-14 10:23 | PN ---
Progress Note (short form) - Note Progress Note: s: no cp sob palps dizzy o: Vital Signs Period Temp Pulse Resp BP Sys/Garza Pulse Ox Last 24 Hr 98.2 F-100.1 F 78-101 16-22 111-140/56-78 98-98 nad calm no jvd, neck supple irregularly irregular s1s2 2/6 sys murmur at lsb. ctab, nl eff aaox3 trace-1+ le edema bl, no c/c abd nd pos bs, soft + tenderness diffusely no diaphoresis/jaundice Current Medications Generic Name Dose Route Start Last Admin Trade Name Freq PRN Reason Stop Dose Admin Acetaminophen 650 mg 04/13/17 08:09 04/13/17 16:22 Tylenol - PO 650 mg Q6H PRN Administration FEVER OR PAIN Albuterol/Ipratropium 1 amp 04/13/17 08:02 04/13/17 13:07 Duoneb - NEB 1 amp Q6H PRN Administration SHORTNESS OF BREATH Apixaban 5 mg 04/13/17 10:00 04/14/17 09:49 Eliquis - PO 5 mg BID LISA Administration Atorvastatin Calcium 20 mg 04/13/17 22:00 04/13/17 22:31 Lipitor - PO 20 mg HS LISA Administration Budesonide/Formoterol Fumarate 2 puff 04/13/17 14:36 04/14/17 09:50 Symbicort 160/4.5mcg - IH 2 puff BID LISA Administration Diltiazem HCl 180 mg 04/13/17 10:00 04/14/17 09:49 Cardizem Cd - PO 180 mg DAILY LISA Administration Diphenoxylate HCl/Atropine 1 combo 04/13/17 08:02 Lomotil - PO Q8H PRN DIARRHEA Gabapentin 100 mg 04/13/17 10:00 04/14/17 09:49 Neurontin - PO 100 mg DAILY LISA Administration Metronidazole 100 mls @ 100 mls/hr 04/13/17 18:15 04/14/17 09:49 Flagyl 500mg Premixed Ivpb - IVPB 100 mls/hr Q8H-IV LISA Administration Sodium Chloride 1,000 mls @ 75 mls/hr 04/13/17 23:30 04/14/17 06:15 Normal Saline - IV Not Given ASDIR LISA Latanoprost 1 drop 04/13/17 22:00 04/13/17 22:34 Xalatan 0.005% Eye Drops - OD 1 drop HS LISA Administration Lidocaine 1 patch 04/13/17 10:00 04/14/17 09:50 Lidoderm Patch - TP 1 patch DAILY LISA Administration Miscellaneous 1 each 04/13/17 22:00 04/13/17 23:14 Lidoderm Patch Removal MC 1 each DAILY@2200 LISA Administration Oxycodone HCl 5 mg 04/13/17 08:10 04/13/17 16:21 Roxicodone - PO 5 mg Q6H PRN Administration PAIN Pantoprazole Sodium 40 mg 04/13/17 10:00 04/14/17 09:49 Protonix - PO 40 mg DAILY LISA Administration Potassium Chloride 10 meq 04/13/17 10:00 04/14/17 09:49 K-Dur - PO 10 meq DAILY LISA Administration Prednisone 10 mg 04/13/17 10:00 04/14/17 09:49 Deltasone - PO 10 mg DAILY LISA Administration Ramipril 2.5 mg 04/13/17 10:00 04/14/17 09:49 Altace - PO 2.5 mg DAILY LISA Administration Vancomycin HCl 250 mg 04/14/17 00:00 04/14/17 06:15 Vancomycin Oral Solution PO 250 mg Q6HPO LISA Administration CBC, BMP 04/14/17 07:30 04/14/17 07:30 ecg: afib, 96 bpm. no ischemic changes echo 03/21/2017: Mild conc lvh. nl lv/rv size/fn, mod ronnie, mod mr, mod tr, rvsp 40-50 cxr: CM, no acute pathology tele: afib, rate controlled a/p: 80 yo with h/o afib on eliquis, htn, hld, pulm sarcoid, copd/asthma, on home oxygen, diastolic HF, pernicous anemia, migraine, OA, vertigo, p/w diarrhea/ fever and noted to have associated CP. diarrhea/fever - on IVF, abx. ongoing mgm't per gi/pmd CP/+chest heaviness: - Same symptoms has her chronic daily non-cardiac chest heaviness. Symptoms have been present for years and she had cardiac w/u for this including cath 2009 at [facility] showing non obstructive cad. EKG here without ischemic changes. ce' s neg x2 -can dc tele, no further cardiac testing at this time for this chronic cp afib - overall rate controlled given current condition on outpatient dilt. pain/ nausea control per pmd/gi. - electrolyte repletion diastolic hf - currently with poor po intake and diarrhea. review of abdominal ct does not show significant edema/effusions. Chronic LE edema persists but according to patient it is slightly better than baseline. - per GI on IVF so holding po lasix --> close monitoring of volume status, resume lasix 40 po qd when acute issues improved. - daily weights, strict i/o. daily bmp. - lyte repletion htn: Stable on home meds of dilt ramipril. hld: On statin. sarcoid/copd - on O2 - per pmd
--- NOTE | 2017-04-14 11:16 | EKG ---
Test Reason : Blood Pressure : / mmHG Vent. Rate : 101 BPM Atrial Rate : 107 BPM P-R Int : 000 ms QRS Dur : 084 ms QT Int : 332 ms P-R-T Axes : 000 002 -18 degrees QTc Int : 430 ms ATRIAL FIBRILLATION WITH RAPID VENTRICULAR RESPONSE ABNORMAL ECG WHEN COMPARED WITH ECG OF 20-MAR-2017 14:48, NONSPECIFIC T WAVE ABNORMALITY NOW EVIDENT IN LATERAL LEADS QT HAS LENGTHENED Confirmed by CHARLOTTE ROY, ROGELIO ([id number]) on 04/14/2017 11:15:51 AM Referred By: Confirmed By:ROGELIO PORTER MD
[2017-04-14 11:49] LABS: FRAGMENTED CELL FEW; HYPOCHROMIA 2+; TEAR DROP CELLS FEW
--- NOTE | 2017-04-14 20:15 | PN ---
GI Progress Note Subjective: Patient with only 2 BM today. On po vanco and IV flagyl - Objective Vital Signs: Vital Signs Temperature 98.6 F 04/14/17 18:00 Pulse Rate 79 04/14/17 18:00 Respiratory Rate 17 04/14/17 18:00 Blood Pressure 118/50 04/14/17 18:00 O2 Sat by Pulse Oximetry (%) 97 04/14/17 09:00 Constitutional: Well Nourished HENT: Yes: Normocephalic Neck: Yes: Supple Respiratory: Yes: CTA Bilaterally Gastrointestinal Inspection: Yes: WNL ...Auscultate: Yes: Normoactive Bowel Sounds ...Palpate: Yes: Soft. No: Tenderness ...Percussion: Yes: Dullness Labs: CBC, BMP 04/14/17 07:30 04/14/17 07:30 INR, PTT INR 1.97 (0.82-1.09) H 04/14/17 07:30 Assessment/Plan Diarrhea now resolving. Continue AbRx as written Advance to low residue diet
[2017-04-14] MEDS: ATORVASTATIN CA 20 MG TABLET (FP) PO SCH (21:39)
[2017-04-14] MEDS: LATANOPROST 0.005% OPHTH SOLN 2.5ML BOTTLE OD SCH (21:41)
[2017-04-14] MEDS: LIDOCAINE PATCH REMOVAL MC SCH (21:43)
[2017-04-15] MEDS: SODIUM CHLORIDE 1,000 ML IV SCH ×2 (00:39→21:12)
[2017-04-15] MEDS: METRONIDAZOLE 500 MG PREMIXED 100 ML IVPB SCH ×3 (01:14→17:47)
[2017-04-15] MEDS: VANCOMYCIN 250 MG/5 ML ORAL SOLUTION PO SCH ×3 (05:52→17:47)
[2017-04-15] MEDS: oxyCODONE HCL 5 MG TABLET PO PRN (05:59)
[2017-04-15] MEDS ORDERED: PT OWN MED DRAWER 7, Y5N ONE ×3 (09:42→17:40)
[2017-04-15] MEDS: RAMIPRIL 2.5 MG CAPSULE (FP) PO SCH (09:49)
[2017-04-15] MEDS: LIDOCAINE 5% TOPICAL PATCH TP SCH (09:50)
[2017-04-15] MEDS: predniSONE 10 MG TABLET (UD) PO SCH (09:50)
[2017-04-15] MEDS: PANTOPRAZOLE 40 MG TABLET (FP) PO SCH (09:50)
[2017-04-15] MEDS: APIXABAN 5 MG TABLET PO SCH ×2 (09:50→21:08)
[2017-04-15] MEDS: POTASSIUM CHLORIDE TABS 10 MEQ TABLET.ER (FP) PO SCH (09:50)
[2017-04-15] MEDS: GABAPENTIN 100 MG CAPSULE (FP) PO SCH (09:50)
[2017-04-15] MEDS: BUDESONIDE/FORMETEROL FUMARATE 160/4.5 mcg INHALER IH SCH ×2 (09:51→21:08)
--- NOTE | 2017-04-15 10:15 | PN ---
Physical Exam: SUBJECTIVE: Patient seen and examined at bedside. She reports multiple loose mucoid yellow stools but has flushed them. OBJECTIVE: Vital Signs 3 Period Temp Pulse Resp BP Sys/Garza Pulse Ox Last 24 Hr 97.9 F-99.3 F 79-85 17-20 107-124/49-74 100 GENERAL: The patient is awake, alert, and fully oriented, in no acute distress. HEAD: Normal with no signs of trauma. EYES: PERRL, extraocular movements intact, sclera anicteric, conjunctiva clear. No ptosis. ENT: Ears normal, nares patent, oropharynx clear without exudates, moist mucous membranes. NECK: Trachea midline, full range of motion, supple. LUNGS: Breath sounds equal, clear to auscultation bilaterally, no wheezes, no crackles, no accessory muscle use. HEART: Regular rate and rhythm, S1, S2 without murmur, rub or gallop. ABDOMEN: Soft, nontender, nondistended, normoactive bowel sounds, no guarding, no rebound, no hepatosplenomegaly, no masses. EXTREMITIES: 2+ pulses, warm, well-perfused, no edema. NEUROLOGICAL: Cranial nerves II through XII grossly intact. Normal speech, gait not observed. PSYCH: Normal mood, normal affect. SKIN: Warm, dry, normal turgor, no rashes or lesions noted Laboratory Results - last 24 hr 3 04/14/17 07:30 WBC 5.8 D RBC 4.48 Hgb 9.1 L D Hct 29.3 L MCV 65.3 L MCHC 31.0 L RDW 19.5 H Plt Count 119 L D MPV 9.1 Neutrophils % 64.3 D Lymphocytes % 23.3 D Monocytes % 10.2 Eosinophils % 1.8 D Basophils % 0.4 Hypochromic-Microcytic 2+ Tear Drop Cells Few Fragmented RBCs Few Active Medications 3 Generic Name Dose Route Start Last Admin Trade Name Freq PRN Reason Stop Dose Admin Acetaminophen 650 mg 04/13/17 08:09 04/13/17 16:22 Tylenol - PO 650 mg Q6H PRN Administration FEVER OR PAIN Albuterol/Ipratropium 1 amp 04/13/17 08:02 04/13/17 13:07 Duoneb - NEB 1 amp Q6H PRN Administration SHORTNESS OF BREATH Apixaban 5 mg 04/13/17 10:00 04/15/17 09:50 Eliquis - PO 5 mg BID LISA Administration Atorvastatin Calcium 20 mg 04/13/17 22:00 04/14/17 21:39 Lipitor - PO 20 mg HS LISA Administration Budesonide/Formoterol Fumarate 2 puff 04/13/17 14:36 04/15/17 09:51 Symbicort 160/4.5mcg - IH 2 puff BID LISA Administration Diltiazem HCl 180 mg 04/13/17 10:00 04/15/17 09:49 Cardizem Cd - PO 180 mg DAILY LISA Administration Diphenoxylate HCl/Atropine 1 combo 04/13/17 08:02 Lomotil - PO Q8H PRN DIARRHEA Gabapentin 100 mg 04/13/17 10:00 04/15/17 09:50 Neurontin - PO 100 mg DAILY LISA Administration Metronidazole 100 mls @ 100 mls/hr 04/13/17 18:15 04/15/17 09:51 Flagyl 500mg Premixed Ivpb - IVPB 100 mls/hr Q8H-IV LISA Administration Sodium Chloride 1,000 mls @ 75 mls/hr 04/13/17 23:30 04/15/17 00:39 Normal Saline - IV Not Given ASDIR LISA Latanoprost 1 drop 04/13/17 22:00 04/14/17 21:41 Xalatan 0.005% Eye Drops - OD 1 drop HS LISA Administration Lidocaine 1 patch 04/13/17 10:00 04/15/17 09:50 Lidoderm Patch - TP 1 patch DAILY LISA Administration Miscellaneous 1 each 04/13/17 22:00 04/14/17 21:43 Lidoderm Patch Removal MC 1 each DAILY@2200 LISA Administration Oxycodone HCl 5 mg 04/13/17 08:10 04/15/17 05:59 Roxicodone - PO 5 mg Q6H PRN Administration PAIN Pantoprazole Sodium 40 mg 04/13/17 10:00 04/15/17 09:50 Protonix - PO 40 mg DAILY LISA Administration Potassium Chloride 10 meq 04/13/17 10:00 04/15/17 09:50 K-Dur - PO 10 meq DAILY LISA Administration Prednisone 10 mg 04/13/17 10:00 04/15/17 09:50 Deltasone - PO 10 mg DAILY LISA Administration Ramipril 2.5 mg 04/13/17 10:00 04/15/17 09:49 Altace - PO 2.5 mg DAILY LISA Administration Vancomycin HCl 250 mg 04/14/17 00:00 04/15/17 05:52 Vancomycin Oral Solution PO 250 mg Q6HPO LISA Administration ASSESSMENT/PLAN: A: 86 yo woman with lower back pain, lower abdominal pain and diarrhea s/p inpatient stay on abx therapy. P: 1. Diarrhea - stool for cx, cdiff, o&p, and leuks- pending - trend electrolytes - Lomotil - Flagyl 500mg IVPB q8h - Vancomycin 500mg PO q6h - monitor fluid status 2. Lower back pain - Lidoderm patch - oxycodone 5mg q6h 3. Abdominal pain - crampy which resolves after stool - oxycodone 5mg q6h 4. COPD - prednisone 5mg daily - continue o2 @ 2L - Symbicort - Duonebs q6 prn 5. CHF - Ramipril 2.5mg daily - Lasix - K-dur - daily weights -strict I&O's 6. HTN - well controlled - Cardizem CD 180mg daily - Ramipril 2.5mg daily 7. Hx of iliac stent - Eliquis 8. HLD - Lipitor 9. Glaucoma - latanoprost 10. PPX - on Eliquis - PPI 11. F/E/N - monitor electrolytes - replete PRN - Full liquid diet - NS@75 Dispo- Requires inpatient evaluation of her medical conditions. Upon discharge, she has bed at [facility] in [place]. Visit type - Emergency Visit Emergency Visit: Yes ED Registration Date: 04/13/17 Care time: The patient presented to the Emergency Department on the above date and was hospitalized for further evaluation of their emergent condition. - New Patient This patient is new to me today: Yes Date on this admission: 04/15/17 - Critical Care Critical Care patient: No
--- NOTE | 2017-04-15 17:49 | PN ---
GI Progress Note Subjective: No diarrhea. Feels well. Hungry. - Objective Vital Signs: Vital Signs Temperature 97.7 F 04/15/17 15:34 Pulse Rate 83 04/15/17 15:34 Respiratory Rate 20 04/15/17 15:34 Blood Pressure 108/48 04/15/17 15:34 O2 Sat by Pulse Oximetry (%) 99 04/15/17 09:00 Constitutional: Well Nourished, No Distress Eyes: Yes: Conjunctiva Clear HENT: Yes: WNL Respiratory: Yes: CTA Bilaterally Gastrointestinal Inspection: Yes: WNL ...Auscultate: Yes: Normoactive Bowel Sounds ...Palpate: Yes: Soft Labs: INR, PTT INR 1.97 (0.82-1.09) H 04/14/17 07:30 CBC, BMP 04/14/17 07:30 04/14/17 07:30 Hepatic Panel Total Bilirubin 0.6 mg/dL (0.2-1.0) D 04/14/17 07:30 AST 17 U/L (15-37) 04/14/17 07:30 ALT 17 U/L (12-78) 04/14/17 07:30 Alkaline Phosphatase 108 U/L (45-117) 04/14/17 07:30 Albumin 2.3 g/dl (3.4-5.0) L 04/14/17 07:30 Assessment/Plan Diarrhea resolved Continue AbRx as written Advance to low NA diet
[2017-04-15 20:42] LABS: BASOPHIL 0.4 % (0-2.0); EOSINOPHIL 0.3 % (0-4.5); MCH 19.8 pg (25.7-33.7); MCHC 30.1 g/dl (32.0-36.0); MEAN CELL VOLUME 65.6 fl (80-96); MEAN PLT VOLUME 9.3 fl (7.5-11.1); NEUTROPHILS 72.7 % (42.8-82.8); PLATELET COUNT 159 K/MM3 (134-434); RDW 19.7 % (11.6-15.6); WHITE BLOOD COUNT 4.1 K/mm3 (4.0-10.0)
[2017-04-15] MEDS: ACETAMINOPHEN 325 MG TABLET (FP) PO PRN (21:06)
[2017-04-15] MEDS: LATANOPROST 0.005% OPHTH SOLN 2.5ML BOTTLE OD SCH (21:08)
[2017-04-15] MEDS: ATORVASTATIN CA 20 MG TABLET (FP) PO SCH (21:08)
[2017-04-15] MEDS: LIDOCAINE PATCH REMOVAL MC SCH (21:09)
--- NOTE | 2017-04-15 21:22 | PN ---
Progress Note (short form) - Note Progress Note: CC: CP S: patient endorses ongoing diarrhea during urination which she describes as gas which pushes out mucus and liquid/thick ian colored and yellow colored substance. Note, nursing has not been able to visualize ian stool. Mild dizziness today. no cp, palps, sob. Diet advanced. Eating food and tolerating. Current Medications Acetaminophen (Tylenol -) 650 mg PO Q6H PRN PRN Reason: FEVER OR PAIN Last Admin: 04/15/17 21:06 Dose: 650 mg Albuterol/Ipratropium (Duoneb -) 1 amp NEB Q6H PRN PRN Reason: SHORTNESS OF BREATH Last Admin: 04/13/17 13:07 Dose: 1 amp Apixaban (Eliquis -) 5 mg PO BID [facility] Last Admin: 04/15/17 21:08 Dose: 5 mg Atorvastatin Calcium (Lipitor -) 20 mg PO HS [facility] Last Admin: 04/15/17 21:08 Dose: 20 mg Budesonide/Formoterol Fumarate (Symbicort 160/4.5mcg -) 2 puff IH BID [facility] Last Admin: 04/15/17 21:08 Dose: 2 puff Diltiazem HCl (Cardizem Cd -) 180 mg PO DAILY [facility] Last Admin: 04/15/17 09:49 Dose: 180 mg Diphenoxylate HCl/Atropine (Lomotil -) 1 combo PO Q8H PRN PRN Reason: DIARRHEA Gabapentin (Neurontin -) 100 mg PO DAILY [facility] Last Admin: 04/15/17 09:50 Dose: 100 mg Metronidazole (Flagyl 500mg Premixed Ivpb -) 100 mls @ 100 mls/hr IVPB Q8H-IV [facility] Last Admin: 04/15/17 17:47 Dose: 100 mls/hr Sodium Chloride (Normal Saline -) 1,000 mls @ 75 mls/hr IV ASDIR [facility] Last Admin: 04/15/17 21:12 Dose: 75 mls/hr Latanoprost (Xalatan 0.005% Eye Drops -) 1 drop OD HS [facility] Last Admin: 04/15/17 21:08 Dose: 1 drop Lidocaine (Lidoderm Patch -) 1 patch TP DAILY [facility] Last Admin: 04/15/17 09:50 Dose: 1 patch Miscellaneous (Lidoderm Patch Removal) 1 each MC DAILY@2200 [facility] Last Admin: 04/15/17 21:09 Dose: 1 each Oxycodone HCl (Roxicodone -) 5 mg PO Q6H PRN PRN Reason: PAIN Last Admin: 04/15/17 05:59 Dose: 5 mg Pantoprazole Sodium (Protonix -) 40 mg PO DAILY [facility] Last Admin: 04/15/17 09:50 Dose: 40 mg Potassium Chloride (K-Dur -) 10 meq PO DAILY [facility] Last Admin: 04/15/17 09:50 Dose: 10 meq Prednisone (Deltasone -) 10 mg PO DAILY [facility] Last Admin: 04/15/17 09:50 Dose: 10 mg Ramipril (Altace -) 2.5 mg PO DAILY [facility] Last Admin: 04/15/17 09:49 Dose: 2.5 mg Vancomycin HCl (Vancomycin Oral Solution) 250 mg PO Q6HPO [facility] Last Admin: 04/15/17 17:47 Dose: 250 mg Vital Signs - 24 hr 04/14/17 04/15/17 04/15/17 22:36 06:28 09:00 Temperature 97.9 F 98.1 F Pulse Rate 79 85 Respiratory 20 20 Rate Blood Pressure 124/61 120/74 O2 Sat by Pulse 99 Oximetry (%) 04/15/17 04/15/17 04/15/17 10:00 15:34 18:14 Temperature 98.4 F 97.7 F 98.6 F Pulse Rate 84 83 79 Respiratory 20 20 20 Rate Blood Pressure 128/59 108/48 102/46 O2 Sat by Pulse Oximetry (%) Intake & Output 04/13/17 04/14/17 04/15/17 04/16/17 07:59 07:59 07:59 07:59 Intake Total 950 1000 1950 Output Total 350 Balance 984 698 1890 Weight 200 lb 179 lb 9.6 oz 182 lb 8 oz mildly uncomfortable, calm no jvd, neck supple irregularly irregular s1s2 2/6 sys murmur at lsb. ctab, nl eff aaox3 no le edema bl, no c/c abd nd pos bs, soft + tenderness diffusely pos dp/pt no diaphoresis/jaundice aaox3 no carotid bruits no CBC, BMP ecg: afib, 96 bpm. no ischemic changes echo 03/21/2017: Mild conc lvh. nl lv/rv size/fn, mod ronnie, mod mr, mod tr, rvsp 40-50 cxr: CM, no acute pathology a/p: 80 yo with h/o afib on eliquis, htn, hld, pulm sarcoid, copd/asthma, on home oxygen, diastolic HF, pernicous anemia, migraine, OA, vertigo, p/w diarrhea/ fever and noted to have associated CP. diarrhea/fever - IVF now off, eating. abx. ongoing mgm't per gi/pmd - pt describes ian stool, GIB? Discussed with nurse, not visualized by nurse. Will defer to GI. Hgb trending down here. Will monitor cbc since patient on eliquis. Repeat cbc ordered. CP/+chest heaviness: - Same symptoms has her chronic daily non-cardiac chest heaviness. Symptoms have been present for years and she had cardiac w/u for this including cath 2009 at [facility] showing non obstructive cad. EKG here without ischemic changes. ce' s neg x1. No further sets ordered, will order now and complete AYAKA. - CE's neg. off tele. afib - overall rate controlled given current condition on outpatient dilt. pain/ nausea control per pmd/gi. - electrolyte repletion - on eliquis, monitor hgb as above. - 04/15 bp trending low, will lower dose of dilt diastolic hf - currently with poor po intake and diarrhea. review of abdominal ct does not show significant pulmonary edema/effusions on visualized portions of lungs. Chronic LE edema improved from baseline. - diet just advanced today 04/15 and bp low. no need to resume outpatient po lasix. - daily weights, strict i/o. daily bmp. - lyte repletion htn: - running low, will decrease dilt dose and hold ramipril hld: On statin. sarcoid/copd - on O2 - per pmd
[2017-04-15 21:33] LABS: ANION GAP 5 (8-16); CALCIUM 8.3 mg/dL (8.5-10.1); CO2 27 mmol/L (21-32); CREATININE 0.7 mg/dL (0.55-1.02); GLUCOSE,RANDOM 158 mg/dL (74-106)
[2017-04-16] MEDS: VANCOMYCIN 250 MG/5 ML ORAL SOLUTION PO SCH ×4 (00:32→17:16)
[2017-04-16] MEDS: METRONIDAZOLE 500 MG PREMIXED 100 ML IVPB SCH ×3 (02:30→17:16)
[2017-04-16] MEDS ORDERED: PT OWN MED DRAWER 7, Y5N ONE ×4 (02:31→17:50)
[2017-04-16 02:52] LABS: ANISOCYTOSIS 2+; HYPOCHROMIA 2+; MICROCYTOSIS 2+; PLATELET COMMENT2 NO CLOTTING DETECTED; PLATELET ESTIMATE ADEQUATE (NORMAL); POIKILOCYTOSIS 2+; POLYCHROMASIA 2+
[2017-04-16 02:53] LABS: FRAGMENTED CELL 1+; SPHEROCYTE 1+; STOMATOCYTE 1+
[2017-04-16] MEDS: ACETAMINOPHEN 325 MG TABLET (FP) PO PRN (05:48)
[2017-04-16 07:51] LABS: BASOPHIL 0.6 % (0-2.0); EOSINOPHIL 1.2 % (0-4.5); MCH 20.1 pg (25.7-33.7); MCHC 30.6 g/dl (32.0-36.0); MEAN CELL VOLUME 65.6 fl (80-96); MEAN PLT VOLUME 9.8 fl (7.5-11.1); NEUTROPHILS 51.7 % (42.8-82.8); PLATELET COUNT 159 K/MM3 (134-434); RDW 19.7 % (11.6-15.6); WHITE BLOOD COUNT 4.6 K/mm3 (4.0-10.0)
[2017-04-16 08:01] LABS: ANION GAP 5 (8-16); CALCIUM 8.4 mg/dL (8.5-10.1); CO2 29 mmol/L (21-32); CREATININE 0.6 mg/dL (0.55-1.02); GLUCOSE,RANDOM 95 mg/dL (74-106); MAGNESIUM 2.1 mg/dL (1.8-2.4)
[2017-04-16] MEDS: POTASSIUM CHLORIDE TABS 10 MEQ TABLET.ER (FP) PO SCH (09:00)
[2017-04-16] MEDS: APIXABAN 5 MG TABLET PO SCH ×2 (09:00→21:32)
[2017-04-16] MEDS: PANTOPRAZOLE 40 MG TABLET (FP) PO SCH (09:00)
[2017-04-16] MEDS: LIDOCAINE 5% TOPICAL PATCH TP SCH (09:00)
[2017-04-16] MEDS: GABAPENTIN 100 MG CAPSULE (FP) PO SCH (09:00)
[2017-04-16] MEDS: BUDESONIDE/FORMETEROL FUMARATE 160/4.5 mcg INHALER IH SCH ×2 (09:01→21:21)
[2017-04-16] MEDS: predniSONE 10 MG TABLET (UD) PO SCH (09:01)
--- NOTE | 2017-04-16 09:16 | PN ---
Physical Exam: SUBJECTIVE: Patient seen and examined at bedside. Continues to experience mucous stools but also continues to flush the toilet before witnessed. Emphasized to patient need to collect stool to send off for analysis. OBJECTIVE: Vital Signs Period Temp Pulse Resp BP Sys/Garza Pulse Ox Last 24 Hr 97.7 F-98.6 F 79-83 20-20 102-108/46-48 99 GENERAL: The patient is awake, alert, and fully oriented, in no acute distress. HEAD: Normal with no signs of trauma. LUNGS: Breath sounds equal, clear to auscultation bilaterally, no wheezes, no crackles, no accessory muscle use. HEART: Regular rate and rhythm, S1, S2 without murmur, rub or gallop. ABDOMEN: Soft, nondistended, diffusely tender, no guarding, no rebound NEUROLOGICAL: Cranial nerves II through XII grossly intact. Normal speech, gait not observed. Laboratory Results - last 24 hr 04/15/17 04/15/17 04/16/17 19:50 19:50 06:30 WBC 4.1 4.6 RBC 4.43 4.48 Hgb 8.8 L 9.0 L Hct 29.1 L 29.4 L MCV 65.6 L 65.6 L MCHC 30.1 L 30.6 L RDW 19.7 H 19.7 H Plt Count 159 D 159 MPV 9.3 9.8 Neutrophils % 72.7 51.7 D Lymphocytes % 18.0 D 34.5 D Monocytes % 8.6 12.0 H Eosinophils % 0.3 D 1.2 D Basophils % 0.4 0.6 Differential Comment Slide scanned Platelet Estimate Adequate Platelet Comment No clotting detected Polychromasia 2+ Hypochromic-Microcytic 2+ Poikilocytosis 2+ Anisocytosis 2+ Microcytosis 2+ Spherocytes 1+ Stomatocytes 1+ Fragmented RBCs 1+ Sodium 141 Potassium 3.9 Chloride 109 H Carbon Dioxide 27 Anion Gap 5 L BUN 8 D Creatinine 0.7 Random Glucose 158 H D Calcium 8.3 L Magnesium 04/16/17 06:30 WBC RBC Hgb Hct MCV MCHC RDW Plt Count MPV Neutrophils % Lymphocytes % Monocytes % Eosinophils % Basophils % Differential Comment Platelet Estimate Platelet Comment Polychromasia Hypochromic-Microcytic Poikilocytosis Anisocytosis Microcytosis Spherocytes Stomatocytes Fragmented RBCs Sodium 145 Potassium 4.5 Chloride 111 H Carbon Dioxide 29 Anion Gap 5 L BUN 7 Creatinine 0.6 Random Glucose 95 D Calcium 8.4 L Magnesium 2.1 Active Medications Generic Name Dose Route Start Last Admin Trade Name Frepreeti PRN Reason Stop Dose Admin Acetaminophen 650 mg 04/13/17 08:09 04/16/17 05:48 Tylenol - PO 650 mg Q6H PRN Administration FEVER OR PAIN Albuterol/Ipratropium 1 amp 04/13/17 08:02 04/13/17 13:07 Duoneb - NEB 1 amp Q6H PRN Administration SHORTNESS OF BREATH Apixaban 5 mg 04/13/17 10:00 04/16/17 09:00 Eliquis - PO 5 mg BID LISA Administration Atorvastatin Calcium 20 mg 04/13/17 22:00 04/15/17 21:08 Lipitor - PO 20 mg HS LISA Administration Budesonide/Formoterol Fumarate 2 puff 04/13/17 14:36 04/16/17 09:01 Symbicort 160/4.5mcg - IH 2 puff BID LISA Administration Diltiazem HCl 120 mg 04/16/17 10:00 04/16/17 09:00 Cardizem Cd - PO 120 mg DAILY LISA Administration Diphenoxylate HCl/Atropine 1 combo 04/13/17 08:02 Lomotil - PO Q8H PRN DIARRHEA Gabapentin 100 mg 04/13/17 10:00 04/16/17 09:00 Neurontin - PO 100 mg DAILY LISA Administration Metronidazole 100 mls @ 100 mls/hr 04/13/17 18:15 04/16/17 09:00 Flagyl 500mg Premixed Ivpb - IVPB 100 mls/hr Q8H-IV LISA Administration Sodium Chloride 1,000 mls @ 75 mls/hr 04/13/17 23:30 04/15/17 21:12 Normal Saline - IV 75 mls/hr ASDIR LISA Administration Latanoprost 1 drop 04/13/17 22:00 04/15/17 21:08 Xalatan 0.005% Eye Drops - OD 1 drop HS [facility] Administration Lidocaine 1 patch 04/13/17 10:00 04/16/17 09:00 Lidoderm Patch - TP 1 patch DAILY L[facility] Administration Miscellaneous 1 each 04/13/17 22:00 04/15/17 21:09 Lidoderm Patch Removal MC 1 each DAILY@2200 [facility] Administration Oxycodone HCl 5 mg 04/13/17 08:10 04/15/17 05:59 Roxicodone - PO 5 mg Q6H PRN Administration PAIN Pantoprazole Sodium 40 mg 04/13/17 10:00 04/16/17 09:00 Protonix - PO 40 mg DAILY LISA Administration Potassium Chloride 10 meq 04/13/17 10:00 04/16/17 09:00 K-Dur - PO 10 meq DAILY LISA Administration Prednisone 10 mg 04/13/17 10:00 04/16/17 09:01 Deltasone - PO 10 mg DAILY [facility] Administration Vancomycin HCl 250 mg 04/14/17 00:00 04/16/17 05:48 Vancomycin Oral Solution PO 250 mg Q6HPO L[facility] Administration Imaging 04/13 CTAP: equivocal mild concentric rectal wall thickening; moderate fecal retention 04/13 Xray LSS: recent compression deformity superior endplate of L2 ASSESSMENT/PLAN 86 year-old woman with a significant PMH of HTN, HLD, afib on Eliquis, diastolic HF, asthma/COPD, pulmonary sarcoid, and anemia. Admitted for abdominal pain and diarrhea x 1 month. Diarrhea --CT: moderate stool retention --has not had a witnessed bowel movement since admission; if diarrhea recurs , send stool studies --continue IV metronidazole and PO vanc --laxatives/enema to treat retained stool --GI following Diastolic heart failure --03/21/17 Echo: mild concentric LVH; normal LV; normal RV;moderate ANTONIO; moderate MR; moderate TR; RSVP 40-50 --BP borderline low, hold outpatient PO lasix --daily weights, strict I&Os Chest pain/heaviness --chronic symptoms for years --ACS ruled out, troponins neg x 3 --seen and evaluated by cardiology, no further intervention; telemetry d/c'd Atrial fibrillation --rate controlled on diltiazem --continue Eliquis Hypertension --BP low --diltiazem decreased; hold ramipril Hyperlipidemia --continue statin Asthma/COPD Pulmonary sarcoid --stable - continue prednisone, Symbicort, duonebs Microcytic anemia --MCV 65 so unlikely pernicious anemia; iron studies ordered --h/h trending slightly down; on Eliquis; will monitor closely Low back pain --xray shows compression fracture at L2 --will get ortho consult Glaucoma --continue latanoprost F/E/N Fluids: PO intake adequate Electrolyte: replete as indicated Nutrition: low sodium DVT prophylaxis: on Eliquis Dispo: continues to require inpatient care. Full code. Visit type - Emergency Visit Emergency Visit: Yes ED Registration Date: 04/15/17 Care time: The patient presented to the Emergency Department on the above date and was hospitalized for further evaluation of their emergent condition. - New Patient This patient is new to me today: No - Critical Care Critical Care patient: No
--- NOTE | 2017-04-16 12:55 | PN ---
GI Progress Note Subjective: Eating lunch. Hungry but still with mild/moderate bilateral flank pain Reports of loose stools but no one has seen BM CT shows moderate stool retention - Objective Vital Signs: Vital Signs Temperature 98.6 F 04/15/17 18:14 Pulse Rate 79 04/15/17 18:14 Respiratory Rate 20 04/15/17 18:14 Blood Pressure 102/46 04/15/17 18:14 O2 Sat by Pulse Oximetry (%) 99 04/15/17 21:00 Constitutional: Well Nourished, Anxious HENT: Yes: Normocephalic Cardiovascular: Yes: Regular Rate and Rhythm Respiratory: Yes: CTA Bilaterally Gastrointestinal Inspection: Yes: WNL ...Auscultate: Yes: Normoactive Bowel Sounds ...Palpate: Yes: Soft, Tenderness (R/L flank) Labs: CBC, BMP 04/16/17 06:30 04/16/17 06:30 INR, PTT INR 1.97 (0.82-1.09) H 04/14/17 07:30 - ....Imaging Cat Scan: Report Reviewed (S/P ld and hysterectomy. Moderate stool retention) Assessment/Plan Abdominal pain Possibly secondary to adhesions Likely overflow diarrhea Low residue diet Laxatives/enema to treat retained stool
[2017-04-16] MEDS: SODIUM CHLORIDE 1,000 ML IV SCH (13:29)
[2017-04-16] MEDS: POLYETHYLENE GLYCOL 3350 119 GM BTL PO SCH ×3 (13:33→21:37)
[2017-04-16] MEDS: ATORVASTATIN CA 20 MG TABLET (FP) PO SCH (21:21)
[2017-04-16] MEDS: LIDOCAINE PATCH REMOVAL MC SCH (21:22)
[2017-04-16] MEDS: LATANOPROST 0.005% OPHTH SOLN 2.5ML BOTTLE OD SCH (21:22)
[2017-04-17] MEDS: SODIUM CHLORIDE 1,000 ML IV SCH (01:41)
[2017-04-17] MEDS: METRONIDAZOLE 500 MG PREMIXED 100 ML IVPB SCH ×3 (01:41→17:06)
[2017-04-17] MEDS: ACETAMINOPHEN 325 MG TABLET (FP) PO PRN ×2 (03:49→11:10)
[2017-04-17] MEDS: VANCOMYCIN 250 MG/5 ML ORAL SOLUTION PO SCH ×4 (06:38→17:06)
--- NOTE | 2017-04-17 08:57 | PN ---
Progress Note, Physician - Current Medication List Current Medications: Active Medications Acetaminophen (Tylenol -) 650 mg PO Q6H PRN PRN Reason: FEVER OR PAIN Last Admin: 04/17/17 03:49 Dose: 650 mg Albuterol/Ipratropium (Duoneb -) 1 amp NEB Q6H PRN PRN Reason: SHORTNESS OF BREATH Last Admin: 04/13/17 13:07 Dose: 1 amp Apixaban (Eliquis -) 5 mg PO BID [facility] Last Admin: 04/16/17 21:32 Dose: 5 mg Atorvastatin Calcium (Lipitor -) 20 mg PO HS [facility] Last Admin: 04/16/17 21:21 Dose: 20 mg Budesonide/Formoterol Fumarate (Symbicort 160/4.5mcg -) 2 puff IH BID [facility] Last Admin: 04/16/17 21:21 Dose: 2 puff Diltiazem HCl (Cardizem Cd -) 120 mg PO DAILY [facility] Last Admin: 04/16/17 09:00 Dose: 120 mg Diphenoxylate HCl/Atropine (Lomotil -) 1 combo PO Q8H PRN PRN Reason: DIARRHEA Gabapentin (Neurontin -) 100 mg PO DAILY [facility] Last Admin: 04/16/17 09:00 Dose: 100 mg Metronidazole (Flagyl 500mg Premixed Ivpb -) 100 mls @ 100 mls/hr IVPB Q8H-IV [facility] Last Admin: 04/17/17 01:41 Dose: 100 mls/hr Sodium Chloride (Normal Saline -) 1,000 mls @ 75 mls/hr IV ASDIR [facility] Last Admin: 04/17/17 01:41 Dose: 75 mls/hr Latanoprost (Xalatan 0.005% Eye Drops -) 1 drop OD HS [facility] Last Admin: 04/16/17 21:22 Dose: 1 drop Lidocaine (Lidoderm Patch -) 1 patch TP DAILY [facility] Last Admin: 04/16/17 09:00 Dose: 1 patch Miscellaneous (Lidoderm Patch Removal) 1 each MC DAILY@2200 [facility] Last Admin: 04/16/17 21:22 Dose: 1 each Oxycodone HCl (Roxicodone -) 5 mg PO Q6H PRN PRN Reason: PAIN Last Admin: 04/15/17 05:59 Dose: 5 mg Pantoprazole Sodium (Protonix -) 40 mg PO DAILY [facility] Last Admin: 04/16/17 09:00 Dose: 40 mg Polyethylene Glycol (Miralax (For Daily Use) -) 17 gm PO BID [facility] Last Admin: 04/16/17 21:37 Dose: Not Given Potassium Chloride (K-Dur -) 10 meq PO DAILY [facility] Last Admin: 04/16/17 09:00 Dose: 10 meq Prednisone (Deltasone -) 10 mg PO DAILY [facility] Last Admin: 04/16/17 09:01 Dose: 10 mg Vancomycin HCl (Vancomycin Oral Solution) 250 mg PO Q6HPO [facility] Last Admin: 04/17/17 06:38 Dose: 250 mg - Objective Vital Signs: Vital Signs Temperature 97.4 F L 04/17/17 06:39 Pulse Rate 73 04/17/17 06:39 Respiratory Rate 20 04/17/17 06:39 Blood Pressure 141/73 04/17/17 06:39 O2 Sat by Pulse Oximetry (%) 99 04/16/17 21:00 Labs: CBC, BMP 04/16/17 06:30 04/16/17 06:30 INR, PTT INR 1.97 (0.82-1.09) H 04/14/17 07:30 Assessment/Plan ecg: afib, 96 bpm. no ischemic changes echo 03/21/2017: Mild conc lvh. nl lv/rv size/fn, mod ronnie, mod mr, mod tr, rvsp 40-50 cxr: CM, no acute pathology a/p: 80 yo with h/o afib on eliquis, htn, hld, pulm sarcoid, copd/asthma, on home oxygen, diastolic HF, pernicous anemia, migraine, OA, vertigo, p/w diarrhea/ fever and noted to have associated CP. diarrhea/fever - per GI, hospitalist CP/+chest heaviness: - Same symptoms as her chronic, daily non-cardiac chest heaviness. Symptoms have been present for years and she had cardiac w/u for this including cath 2009 at [facility] showing non obstructive cad. EKG here without ischemic changes. ce' s neg x2. - no further cv workup indicated afib - rate controlled , cont diltiazem as doing - on eliquis, cont same diastolic hf - poor po intake and diarrhea here. review of abdominal ct did not show significant pulmonary edema/effusions on visualized portions of lungs. Chronic LE edema improved from baseline. - outpt po lasix held on admit here htn: - running low initially, dilt dose decreased, home ramipril held - remains controlled, same meds hld: - cont home statin, outpt f/u sarcoid/copd - on O2 - per pmd
[2017-04-17] MEDS ORDERED: PT OWN MED DRAWER 7, Y5N ONE ×2 (09:09→11:08)
[2017-04-17] MEDS: GABAPENTIN 100 MG CAPSULE (FP) PO SCH (09:14)
[2017-04-17] MEDS: PANTOPRAZOLE 40 MG TABLET (FP) PO SCH (09:14)
[2017-04-17] MEDS: APIXABAN 5 MG TABLET PO SCH ×2 (09:15→21:48)
[2017-04-17] MEDS: POTASSIUM CHLORIDE TABS 10 MEQ TABLET.ER (FP) PO SCH (09:15)
[2017-04-17] MEDS: predniSONE 10 MG TABLET (UD) PO SCH (09:15)
[2017-04-17] MEDS: BUDESONIDE/FORMETEROL FUMARATE 160/4.5 mcg INHALER IH SCH ×2 (09:15→21:49)
[2017-04-17] MEDS: POLYETHYLENE GLYCOL 3350 119 GM BTL PO SCH ×2 (09:16→21:48)
[2017-04-17] MEDS: LIDOCAINE 5% TOPICAL PATCH TP SCH (09:16)
--- NOTE | 2017-04-17 12:19 | PN ---
Physical Exam: SUBJECTIVE: Patient seen and examined. Insists she is having mucous stools but still unwitnessed by staff. Hat put in toilet and patient apparently voided around it. Staff has only seen urine. Patient is refusing enema, Miralax. Complaining of abdominal pain and low back pain. OBJECTIVE: Vital Signs Period Temp Pulse Resp BP Sys/Garza Pulse Ox Last 24 Hr 97.3 F-98.6 F 73-99 20-20 121-141/56-73 99 GENERAL: The patient is awake, alert. Irritable. HEAD: Normal with no signs of trauma. LUNGS: Breath sounds equal, clear to auscultation bilaterally, no wheezes, no crackles, no accessory muscle use. HEART: Regular rate and rhythm, S1, S2 without murmur, rub or gallop. ABDOMEN: Soft, nontender with distraction, nondistended EXTREMITIES: 2+ pulses, warm, well-perfused, no edema. NEUROLOGICAL: Cranial nerves II through XII grossly intact. Normal speech, gait not observed. Laboratory Results - last 24 hr 04/16/17 04/16/17 04/17/17 06:00 06:30 06:30 Sodium 145 Potassium 4.5 Chloride 111 H Carbon Dioxide 29 Anion Gap 5 L BUN 7 Creatinine 0.6 Random Glucose 95 D Calcium 8.4 L Magnesium 2.1 Ferritin 378.842 H Vitamin B12 Cancelled 540 Active Medications Generic Name Dose Route Start Last Admin Trade Name Freq PRN Reason Stop Dose Admin Acetaminophen 650 mg 04/13/17 08:09 04/17/17 11:10 Tylenol - PO 650 mg Q6H PRN Administration FEVER OR PAIN Albuterol/Ipratropium 1 amp 04/13/17 08:02 04/13/17 13:07 Duoneb - NEB 1 amp Q6H PRN Administration SHORTNESS OF BREATH Apixaban 5 mg 04/13/17 10:00 04/17/17 09:15 Eliquis - PO 5 mg BID LISA Administration Atorvastatin Calcium 20 mg 04/13/17 22:00 04/16/17 21:21 Lipitor - PO 20 mg HS LISA Administration Budesonide/Formoterol Fumarate 2 puff 04/13/17 14:36 04/17/17 09:15 Symbicort 160/4.5mcg - IH 2 puff BID LISA Administration Diltiazem HCl 120 mg 04/16/17 10:00 04/17/17 09:15 Cardizem Cd - PO 120 mg DAILY LISA Administration Diphenoxylate HCl/Atropine 1 combo 04/13/17 08:02 Lomotil - PO Q8H PRN DIARRHEA Gabapentin 100 mg 04/13/17 10:00 04/17/17 09:14 Neurontin - PO 100 mg DAILY LISA Administration Metronidazole 100 mls @ 100 mls/hr 04/13/17 18:15 04/17/17 09:15 Flagyl 500mg Premixed Ivpb - IVPB 100 mls/hr Q8H-IV LISA Administration Sodium Chloride 1,000 mls @ 75 mls/hr 04/13/17 23:30 04/17/17 01:41 Normal Saline - IV 75 mls/hr ASDIR LISA Administration Latanoprost 1 drop 04/13/17 22:00 04/16/17 21:22 Xalatan 0.005% Eye Drops - OD 1 drop HS LISA Administration Lidocaine 1 patch 04/13/17 10:00 04/17/17 09:16 Lidoderm Patch - TP 1 patch DAILY LISA Administration Miscellaneous 1 each 04/13/17 22:00 04/16/17 21:22 Lidoderm Patch Removal MC 1 each DAILY@2200 LISA Administration Oxycodone HCl 5 mg 04/13/17 08:10 04/15/17 05:59 Roxicodone - PO 5 mg Q6H PRN Administration PAIN Pantoprazole Sodium 40 mg 04/13/17 10:00 04/17/17 09:14 Protonix - PO 40 mg DAILY LISA Administration Polyethylene Glycol 17 gm 04/16/17 13:15 04/17/17 09:16 Miralax (For Daily Use) - PO Not Given BID LISA Potassium Chloride 10 meq 04/13/17 10:00 04/17/17 09:15 K-Dur - PO 10 meq DAILY LISA Administration Prednisone 10 mg 04/13/17 10:00 04/17/17 09:15 Deltasone - PO 10 mg DAILY LISA Administration Vancomycin HCl 250 mg 04/14/17 00:00 04/17/17 11:10 Vancomycin Oral Solution PO 250 mg Q6HPO LISA Administration Imaging 04/13 CTAP: equivocal mild concentric rectal wall thickening; moderate fecal retention 04/13 Xray LSS: recent compression deformity superior endplate of L2 ASSESSMENT/PLAN 86 year-old woman with a significant PMH of HTN, HLD, afib on Eliquis, diastolic HF, asthma/COPD, pulmonary sarcoid, and anemia. Admitted for abdominal pain and reported diarrhea x 1 month. Fecal retention --previous diagnosis of diarrhea is increasingly unlikely since patient has passed no stool since admission and CT scan shows fecal retention --patient is refusing Miralax, enema as she fears this will only exacerbate her "diarrhea" --continue IV metronidazole and PO vanc for now --GI following Diastolic heart failure --03/21/17 Echo: mild concentric LVH; normal LV; normal RV;moderate ANTONIO; moderate MR; moderate TR; RSVP 40-50 --normotensive today, resume home PO lasix --daily weights, strict I&Os Chest pain/heaviness --chronic symptoms for years --ACS ruled out, troponins neg x 3 --seen and evaluated by cardiology, no further intervention; telemetry d/c'd Atrial fibrillation --rate controlled on diltiazem --continue Eliquis Hypertension --continue lower dose of diltiazem; continue to hold ramipril to see how BP responds to re-initiation of lasix Hyperlipidemia --continue statin Asthma/COPD Pulmonary sarcoid --stable - continue prednisone, Symbicort, duonebs Microcytic anemia --MCV 65 so unlikely pernicious anemia; iron studies pending --h/h stable Low back pain --xray shows compression fracture at L2 --ortho consult pending Glaucoma --continue latanoprost F/E/N Fluids: PO intake adequate Electrolyte: replete as indicated Nutrition: low sodium DVT prophylaxis: on Eliquis Dispo: continues to require inpatient care. Full code. Visit type - Emergency Visit Emergency Visit: Yes ED Registration Date: 04/15/17 Care time: The patient presented to the Emergency Department on the above date and was hospitalized for further evaluation of their emergent condition. - New Patient This patient is new to me today: No - Critical Care Critical Care patient: No
[2017-04-17] MEDS: FUROSEMIDE 40 MG TABLET (FP) PO SCH (13:11)
--- NOTE | 2017-04-17 14:19 | PN ---
GI Progress Note Subjective: Patient upset. States she is having diarrhea Nurse has not seen any stool-only urine in hat. She has been refusing laxatives and enemas - Objective Vital Signs: Vital Signs Temperature 97.7 F 04/17/17 10:00 Pulse Rate 74 04/17/17 10:00 Respiratory Rate 20 04/17/17 10:00 Blood Pressure 148/59 04/17/17 10:00 O2 Sat by Pulse Oximetry (%) 99 04/17/17 10:00 Constitutional: Well Nourished, Anxious HENT: Yes: Normocephalic Cardiovascular: Yes: Pulse Irregular Respiratory: Yes: CTA Bilaterally Gastrointestinal Inspection: Yes: WNL ...Auscultate: Yes: Normoactive Bowel Sounds ...Palpate: Yes: Soft. No: Tenderness Labs: CBC, BMP 04/16/17 06:30 04/16/17 06:30 INR, PTT INR 1.97 (0.82-1.09) H 04/14/17 07:30 - ....Imaging Cat Scan: Report Reviewed ((04/13) fecal retention R colon) Assessment/Plan Patient with confusing and conflicting information re: bowel habits Not cooperating with meds Stop laxatives and assess baseline FUA tomorrow
[2017-04-17] MEDS: oxyCODONE HCL 5 MG TABLET PO PRN (16:59)
[2017-04-17] MEDS: ATORVASTATIN CA 20 MG TABLET (FP) PO SCH (21:48)
[2017-04-17] MEDS: LIDOCAINE PATCH REMOVAL MC SCH (22:00)
[2017-04-17] MEDS: LATANOPROST 0.005% OPHTH SOLN 2.5ML BOTTLE OD SCH (22:01)
[2017-04-18] MEDS: METRONIDAZOLE 500 MG PREMIXED 100 ML IVPB SCH ×3 (01:48→17:33)
[2017-04-18] MEDS: SODIUM CHLORIDE 1,000 ML IV SCH (04:02)
[2017-04-18] MEDS: VANCOMYCIN 250 MG/5 ML ORAL SOLUTION PO SCH ×4 (06:00→17:33)
--- NOTE | 2017-04-18 08:02 | CONSULT ---
Consult - text type - Consultation Consultation Note: FULL CONSULT DICTATED IMP: COMPRESSION FX LUMBAR SPINE PLAN: ANALGESICS, PT AND IF PAIN TO MUCH LS CORSET
[2017-04-18 08:06] LABS: SGPT/ALT 14 U/L (12-78)
[2017-04-18 08:11] LABS: BASOPHIL 0.5 % (0-2.0); MCH 20.2 pg (25.7-33.7); MCHC 30.2 g/dl (32.0-36.0); MEAN CELL VOLUME 66.7 fl (80-96); MEAN PLT VOLUME 9.2 fl (7.5-11.1); WHITE BLOOD COUNT 5.5 K/mm3 (4.0-10.0)
[2017-04-18 08:16] LABS: ALBUMIN 2.7 g/dl (3.4-5.0); ALK PHOS 110 U/L (45-117); ANION GAP 8 (8-16); BILIRUBIN,TOTAL 0.4 mg/dL (0.2-1.0); CO2 28 mmol/L (21-32); CREATININE 0.6 mg/dL (0.55-1.02); GLUCOSE,RANDOM 96 mg/dL (74-106); MAGNESIUM 1.9 mg/dL (1.8-2.4); SGOT/AST 10 U/L (15-37); TOT PROT 5.7 g/dl (6.4-8.2)
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
[2017-04-18] MEDS ORDERED: PT OWN MED DRAWER 7, Y5N ONE (09:36)
--- NOTE | 2017-04-18 09:48 | PN ---
Progress Note, Physician Chief Complaint: chf History of Present Illness: no new sob (mild sx's at times c/w her baseline) feet swollen mildly, also at baseline she says no cp, palpitations - Current Medication List Current Medications: Active Medications Acetaminophen (Tylenol -) 650 mg PO Q6H PRN PRN Reason: FEVER OR PAIN Last Admin: 04/17/17 11:10 Dose: 650 mg Albuterol/Ipratropium (Duoneb -) 1 amp NEB Q6H PRN PRN Reason: SHORTNESS OF BREATH Last Admin: 04/13/17 13:07 Dose: 1 amp Apixaban (Eliquis -) 5 mg PO BID [facility] Last Admin: 04/17/17 21:48 Dose: 5 mg Atorvastatin Calcium (Lipitor -) 20 mg PO HS [facility] Last Admin: 04/17/17 21:48 Dose: 20 mg Budesonide/Formoterol Fumarate (Symbicort 160/4.5mcg -) 2 puff IH BID [facility] Last Admin: 04/17/17 21:49 Dose: 2 puff Diltiazem HCl (Cardizem Cd -) 120 mg PO DAILY [facility] Last Admin: 04/17/17 09:15 Dose: 120 mg Diphenoxylate HCl/Atropine (Lomotil -) 1 combo PO Q8H PRN PRN Reason: DIARRHEA Furosemide (Lasix -) 40 mg PO DAILY [facility] Last Admin: 04/17/17 13:11 Dose: 40 mg Gabapentin (Neurontin -) 100 mg PO DAILY [facility] Last Admin: 04/17/17 09:14 Dose: 100 mg Metronidazole (Flagyl 500mg Premixed Ivpb -) 100 mls @ 100 mls/hr IVPB Q8H-IV [facility] Last Admin: 04/18/17 01:48 Dose: 100 mls/hr Sodium Chloride (Normal Saline -) 1,000 mls @ 75 mls/hr IV ASDIR [facility] Last Admin: 04/18/17 04:02 Dose: 75 mls/hr Latanoprost (Xalatan 0.005% Eye Drops -) 1 drop OD HS [facility] Last Admin: 04/17/17 22:01 Dose: 1 drop Lidocaine (Lidoderm Patch -) 1 patch TP DAILY [facility] Last Admin: 04/17/17 09:16 Dose: 1 patch Miscellaneous (Lidoderm Patch Removal) 1 each MC DAILY@2200 [facility] Last Admin: 04/17/17 22:00 Dose: 1 each Oxycodone HCl (Roxicodone -) 5 mg PO Q6H PRN PRN Reason: PAIN Last Admin: 04/17/17 16:59 Dose: 5 mg Pantoprazole Sodium (Protonix -) 40 mg PO DAILY [facility] Last Admin: 04/17/17 09:14 Dose: 40 mg Polyethylene Glycol (Miralax (For Daily Use) -) 17 gm PO BID [facility] Last Admin: 04/17/17 21:48 Dose: 17 gm Potassium Chloride (K-Dur -) 10 meq PO DAILY [facility] Last Admin: 04/17/17 09:15 Dose: 10 meq Prednisone (Deltasone -) 10 mg PO DAILY [facility] Last Admin: 04/17/17 09:15 Dose: 10 mg Vancomycin HCl (Vancomycin Oral Solution) 250 mg PO Q6HPO [facility] Last Admin: 04/18/17 06:00 Dose: 250 mg - Objective Vital Signs: Vital Signs Temperature 98.4 F 04/18/17 05:57 Pulse Rate 94 H 04/18/17 05:57 Respiratory Rate 18 04/18/17 05:57 Blood Pressure 148/67 04/18/17 05:57 O2 Sat by Pulse Oximetry (%) 99 04/17/17 21:00 Constitutional: Yes: Well Nourished, No Distress, Calm Cardiovascular: Yes: Pulse Irregular, S1, S2. No: JVD (in chair), Gallop, Murmur Respiratory: Yes: Regular, CTA Bilaterally. No: Accessory Muscle Use, Rales, Wheezes Extremities: No: Cold Edema: Yes (1+ ankles) Neurological: Yes: Alert, Oriented Psychiatric: No: Agitated Labs: CBC, BMP 04/18/17 06:00 04/18/17 06:00 INR, PTT INR 1.97 (0.82-1.09) H 04/14/17 07:30 Assessment/Plan echo 03/21/2017: Mild conc lvh. nl lv/rv size/fn, mod ronnie, mod mr, mod tr, rvsp 40-50 cxr: CM, no acute pathology a/p: 80 yo with h/o afib on eliquis, htn, hld, pulm sarcoid, copd/asthma, on home oxygen, diastolic HF, pernicous anemia, migraine, OA, vertigo, p/w diarrhea/ fever and noted to have associated CP. diarrhea/fever - per primary team CP/+chest heaviness: - Same symptoms has her chronic daily non-cardiac chest heaviness. Symptoms have been present for years and she had cardiac w/u for this including cath 2009 at [facility] showing non obstructive cad. - EKG here without ischemic changes. ce's neg x 2. - no further w/u indicated at present time afib - rates controlled, cont diltiazem - on eliquis, H/H stable here diastolic hf - outpt lasix held here due to poor po intake and diarrhea. (review of abdominal ct does not show significant pulmonary edema/effusions on visualized portions of lungs. Chronic LE edema improved from baseline). - back on lasix 40 qd, lytes/renal fxn stable. edema and sob (both mild) at her baseline per pt - cont same, observe htn: - decreased dilt and held ramipril for low bp range initially - well controlled, cont same meds hld: - cont prior statin sarcoid/copd - on O2 - per pmd
[2017-04-18] MEDS: predniSONE 10 MG TABLET (UD) PO SCH (09:51)
[2017-04-18] MEDS: POTASSIUM CHLORIDE TABS 10 MEQ TABLET.ER (FP) PO SCH (09:52)
[2017-04-18] MEDS: APIXABAN 5 MG TABLET PO SCH ×2 (09:52→21:14)
[2017-04-18] MEDS: FUROSEMIDE 40 MG TABLET (FP) PO SCH (09:52)
[2017-04-18] MEDS: PANTOPRAZOLE 40 MG TABLET (FP) PO SCH (09:53)
[2017-04-18] MEDS: GABAPENTIN 100 MG CAPSULE (FP) PO SCH (09:53)
[2017-04-18] MEDS: BUDESONIDE/FORMETEROL FUMARATE 160/4.5 mcg INHALER IH SCH ×2 (09:54→21:16)
[2017-04-18] MEDS: LIDOCAINE 5% TOPICAL PATCH TP SCH (09:55)
[2017-04-18] MEDS: POLYETHYLENE GLYCOL 3350 119 GM BTL PO SCH ×2 (10:02→21:17)
[2017-04-18 10:46] LABS: PLATELET COUNT 201 K/MM3 (134-434)
[2017-04-18 10:47] LABS: PLATELET ESTIMATE ADEQUATE (NORMAL)
--- NOTE | 2017-04-18 13:27 | PN ---
Progress Note (short form) - Note Progress Note: Subjective: The patient was seen and examined at the bedside, she is upset that she doesn't feel like she is being treated as she is still experiencing diarrhea. She reports 3 episodes of diarrhea today. Placed commode in patients bathroom as she has been repeatedly asked to have bowel movement in hat and evaluated by RN and she has not done so. Current Medications Generic Name Dose Route Start Last Admin Trade Name Freq PRN Reason Stop Dose Admin Acetaminophen 650 mg 04/13/17 08:09 04/17/17 11:10 Tylenol - PO 650 mg Q6H PRN Administration FEVER OR PAIN Albuterol/Ipratropium 1 amp 04/13/17 08:02 04/13/17 13:07 Duoneb - NEB 1 amp Q6H PRN Administration SHORTNESS OF BREATH Apixaban 5 mg 04/13/17 10:00 04/18/17 09:52 Eliquis - PO 5 mg BID LISA Administration Atorvastatin Calcium 20 mg 04/13/17 22:00 04/17/17 21:48 Lipitor - PO 20 mg HS LISA Administration Budesonide/Formoterol Fumarate 2 puff 04/13/17 14:36 04/18/17 09:54 Symbicort 160/4.5mcg - IH 2 puff BID LISA Administration Diltiazem HCl 120 mg 04/16/17 10:00 04/18/17 09:51 Cardizem Cd - PO 120 mg DAILY LISA Administration Furosemide 40 mg 04/17/17 12:30 04/18/17 09:52 Lasix - PO 40 mg DAILY LISA Administration Gabapentin 100 mg 04/13/17 10:00 04/18/17 09:53 Neurontin - PO 100 mg DAILY LISA Administration Metronidazole 100 mls @ 100 mls/hr 04/13/17 18:15 04/18/17 09:54 Flagyl 500mg Premixed Ivpb - IVPB 100 mls/hr Q8H-IV LISA Administration Latanoprost 1 drop 04/13/17 22:00 04/17/17 22:01 Xalatan 0.005% Eye Drops - OD 1 drop HS LISA Administration Lidocaine 1 patch 04/13/17 10:00 04/18/17 09:55 Lidoderm Patch - TP 1 patch DAILY LISA Administration Miscellaneous 1 each 04/13/17 22:00 04/17/17 22:00 Lidoderm Patch Removal MC 1 each DAILY@2200 LISA Administration Pantoprazole Sodium 40 mg 04/13/17 10:00 04/18/17 09:53 Protonix - PO 40 mg DAILY LISA Administration Polyethylene Glycol 17 gm 04/16/17 13:15 04/18/17 10:02 Miralax (For Daily Use) - PO Not Given BID LISA Potassium Chloride 10 meq 04/13/17 10:00 04/18/17 09:52 K-Dur - PO 10 meq DAILY LISA Administration Prednisone 10 mg 04/13/17 10:00 04/18/17 09:51 Deltasone - PO 10 mg DAILY LISA Administration Vancomycin HCl 250 mg 04/14/17 00:00 04/18/17 12:06 Vancomycin Oral Solution PO 250 mg Q6HPO LISA Administration Objective: Vital Signs Period Temp Pulse Resp BP Sys/Garza Pulse Ox Last 24 Hr 97.9 F-98.5 F 79-97 18-20 145-162/67-92 99-100 Physical Exam: General: NAD, A&Ox3 Lungs: CTA bilaterally Heart: Irregular rhythm, S1S2 Abd: Soft, extreme diffuse tenderness to light palpation. Normoactive bowel sounds Ext: Warm, 2+ pitting edema b/l lower extremities CBCD WBC 5.5 K/mm3 (4.0-10.0) 04/18/17 06:00 RBC 4.91 M/mm3 (3.60-5.2) 04/18/17 06:00 Hgb 9.9 GM/dL (10.7-15.3) L 04/18/17 06:00 Hct 32.8 % (32.4-45.2) 04/18/17 06:00 MCV 66.7 fl (80-96) L 04/18/17 06:00 MCHC 30.2 g/dl (32.0-36.0) L 04/18/17 06:00 RDW 20.0 % (11.6-15.6) H 04/18/17 06:00 Plt Count 201 K/MM3 (134-434) D 04/18/17 06:00 MPV 9.2 fl (7.5-11.1) 04/18/17 06:00 CMP Sodium 145 mmol/L (136-145) 04/18/17 06:00 Potassium 4.4 mmol/L (3.5-5.1) 04/18/17 06:00 Chloride 109 mmol/L (98-107) H 04/18/17 06:00 Carbon Dioxide 28 mmol/L (21-32) 04/18/17 06:00 Anion Gap 8 (8-16) 04/18/17 06:00 BUN 5 mg/dL (7-18) L D 04/18/17 06:00 Creatinine 0.6 mg/dL (0.55-1.02) 04/18/17 06:00 Creat Clearance w eGFR > 60 (>60) 04/18/17 06:00 Random Glucose 96 mg/dL (74-106) 04/18/17 06:00 Calcium 9.0 mg/dL (8.5-10.1) 04/18/17 06:00 Total Bilirubin 0.4 mg/dL (0.2-1.0) D 04/18/17 06:00 AST 10 U/L (15-37) L D 04/18/17 06:00 ALT 14 U/L (12-78) 04/18/17 06:00 Alkaline Phosphatase 110 U/L (45-117) 04/18/17 06:00 Total Protein 5.7 g/dl (6.4-8.2) L 04/18/17 06:00 Albumin 2.7 g/dl (3.4-5.0) L 04/18/17 06:00 CARDIAC ENZYMES Creatine Kinase 105 IU/L (26-192) 04/13/17 19:50 Troponin I < 0.02 ng/ml (0.00-0.05) 04/13/17 19:50 Imaging 04/13 CTAP: equivocal mild concentric rectal wall thickening; moderate fecal retention 04/13 Xray LSS: recent compression deformity superior endplate of L2 04/17 abd x-ray: retained stool consistent with constipation Assessment: This is an 86 year old female with PMHx of HTN, hyperlipidemia, atrial fibrillation (on Eliquis), chronic diastolic heart failure, asthma/COPD, pulmonary sarcoid, anemia, who presented to the ED with abdominal pain and diarrhea x1 month. Plan: 1) GI: Fecal retention - CT with moderate fecal retention - Abd x-ray 04/17 with retained stool - Patient continues to report diarrhea and is refusing all laxatives - F/u abd x-ray today - Continue Flagyl and po vanc per GI - Appreciate GI consult 2) Cardiology: Chronic diastolic heart failure - 03/21/17 Echo: mild concentric LVH; normal LV; normal RV;moderate ANTONIO;moderate MR; moderate TR; RSVP 40-50 - Resumed on Lasix - Continue to monitor daily weights - Strict I&O - Appreciate cardiology consult- shortness of breath and chest heaviness at baseline, no further cardiac workup at this time Chronic atrial fibrillation - Rate controlled, continue Cardizem - Continue Eliquis HTN - As above - Continue to monitor Hyperlipidemia - Continue Lipitor 2) Pulmonary: Asthma/COPD - Stable - Discontinue Prednisone, taper completed 3) Hematology: Microcytic anemia - H/H stable - Continue to monitor 4) MSK: Compression fracture at L2 - Per ortho, analgesics, PT and corset to lumbar spine if pain 5) F/E/N: - Low sodium diet - Monitor electrolytes 6) Prophylaxis: - On Eliquis - PT evaluation 7) Dispo: - Requires continued inpatient care CODE STATUS: FULL CODE Visit type - Emergency Visit Emergency Visit: Yes ED Registration Date: 04/15/17 Care time: The patient presented to the Emergency Department on the above date and was hospitalized for further evaluation of their emergent condition. - New Patient This patient is new to me today: Yes Date on this admission: 04/18/17 - Critical Care Critical Care patient: No
--- NOTE | 2017-04-18 18:20 | PN ---
GI Progress Note Subjective: Patient annoyed. Advised that on FUA done yesterday, there was retained stool c/ w constipation. As well, she had a BM in the commode that was noted to be formed/soft. - Objective Vital Signs: Vital Signs Temperature 98.5 F 04/18/17 17:14 Pulse Rate 92 H 04/18/17 17:14 Respiratory Rate 20 04/18/17 17:14 Blood Pressure 140/78 04/18/17 17:14 O2 Sat by Pulse Oximetry (%) 100 04/18/17 09:00 Constitutional: Well Nourished, Obese Cardiovascular: Yes: Regular Rate and Rhythm Respiratory: Yes: CTA Bilaterally Gastrointestinal Inspection: Yes: WNL ...Auscultate: Yes: Normoactive Bowel Sounds ...Palpate: Yes: Soft, Tenderness (diffuse which changes when she is distracted) Labs: CBC, BMP 04/18/17 06:00 04/18/17 06:00 INR, PTT INR 1.97 (0.82-1.09) H 04/14/17 07:30 - ....Imaging X-ray: Report Reviewed (FUA with retained stool) Assessment/Plan Passing formed stool FUA with significant retained stool Patient non-compliant (poss early dementia) Rec: Discharge with further mgmt at home. Case d/w Dr Sewell
[2017-04-18] MEDS: ATORVASTATIN CA 20 MG TABLET (FP) PO SCH (21:14)
[2017-04-18] MEDS: LATANOPROST 0.005% OPHTH SOLN 2.5ML BOTTLE OD SCH (21:16)
[2017-04-18] MEDS: LIDOCAINE PATCH REMOVAL MC SCH (21:17)
[2017-04-18] MEDS: ACETAMINOPHEN 325 MG TABLET (FP) PO PRN (22:48)
[2017-04-19] MEDS: VANCOMYCIN 250 MG/5 ML ORAL SOLUTION PO SCH ×2 (00:16→05:47)
[2017-04-19] MEDS: METRONIDAZOLE 500 MG PREMIXED 100 ML IVPB SCH ×2 (01:23→09:27)
[2017-04-19] MEDS ORDERED: PT OWN MED DRAWER 7, Y5N ONE (09:24)
[2017-04-19] MEDS: APIXABAN 5 MG TABLET PO SCH ×2 (09:26→21:25)
[2017-04-19] MEDS: POTASSIUM CHLORIDE TABS 10 MEQ TABLET.ER (FP) PO SCH (09:26)
[2017-04-19] MEDS: FUROSEMIDE 40 MG TABLET (FP) PO SCH (09:26)
[2017-04-19] MEDS: PANTOPRAZOLE 40 MG TABLET (FP) PO SCH (09:27)
[2017-04-19] MEDS: POLYETHYLENE GLYCOL 3350 119 GM BTL PO SCH ×2 (09:27→21:26)
[2017-04-19] MEDS: GABAPENTIN 100 MG CAPSULE (FP) PO SCH (09:27)
[2017-04-19] MEDS: LIDOCAINE 5% TOPICAL PATCH TP SCH (09:28)
[2017-04-19] MEDS: BUDESONIDE/FORMETEROL FUMARATE 160/4.5 mcg INHALER IH SCH ×2 (09:28→21:27)
--- NOTE | 2017-04-19 10:46 | PN ---
Progress Note (short form) - Note Progress Note: Subjective: The patient was seen and examined at the bedside, she states she is still having diarrhea RN witnessed soft, formed stool today Current Medications Generic Name Dose Route Start Last Admin Trade Name Freq PRN Reason Stop Dose Admin Acetaminophen 650 mg 04/13/17 08:09 04/18/17 22:48 Tylenol - PO 650 mg Q6H PRN Administration FEVER OR PAIN Albuterol/Ipratropium 1 amp 04/13/17 08:02 04/13/17 13:07 Duoneb - NEB 1 amp Q6H PRN Administration SHORTNESS OF BREATH Apixaban 5 mg 04/13/17 10:00 04/19/17 09:26 Eliquis - PO 5 mg BID LISA Administration Atorvastatin Calcium 20 mg 04/13/17 22:00 04/18/17 21:14 Lipitor - PO 20 mg HS LISA Administration Budesonide/Formoterol Fumarate 2 puff 04/13/17 14:36 04/19/17 09:28 Symbicort 160/4.5mcg - IH 2 puff BID LISA Administration Diltiazem HCl 120 mg 04/16/17 10:00 04/19/17 09:26 Cardizem Cd - PO 120 mg DAILY LISA Administration Furosemide 40 mg 04/17/17 12:30 04/19/17 09:26 Lasix - PO 40 mg DAILY LISA Administration Gabapentin 100 mg 04/13/17 10:00 04/19/17 09:27 Neurontin - PO 100 mg DAILY LISA Administration Metronidazole 100 mls @ 100 mls/hr 04/13/17 18:15 04/19/17 09:27 Flagyl 500mg Premixed Ivpb - IVPB 100 mls/hr Q8H-IV LISA Administration Latanoprost 1 drop 04/13/17 22:00 04/18/17 21:16 Xalatan 0.005% Eye Drops - OD 1 drop HS LISA Administration Lidocaine 1 patch 04/13/17 10:00 04/19/17 09:28 Lidoderm Patch - TP 1 patch DAILY LISA Administration Miscellaneous 1 each 04/13/17 22:00 04/18/17 21:17 Lidoderm Patch Removal MC 1 each DAILY@2200 LISA Administration Pantoprazole Sodium 40 mg 04/13/17 10:00 04/19/17 09:27 Protonix - PO 40 mg DAILY LISA Administration Polyethylene Glycol 17 gm 04/16/17 13:15 04/19/17 09:27 Miralax (For Daily Use) - PO Not Given BID LISA Potassium Chloride 10 meq 04/13/17 10:00 04/19/17 09:26 K-Dur - PO 10 meq DAILY LISA Administration Vancomycin HCl 250 mg 04/14/17 00:00 04/19/17 05:47 Vancomycin Oral Solution PO Not Given Q6HPO LISA Objective: Vital Signs Period Temp Pulse Resp BP Sys/Garza Pulse Ox Last 24 Hr 98.1 F-98.5 F 76-92 18-20 120-145/77-82 100-100 Physical Exam: General: NAD, A&Ox3 Lungs: CTA bilaterally Heart: Irregular rhythm, S1S2 Abd: Soft, extreme diffuse tenderness to light palpation. Normoactive bowel sounds Ext: Warm, 2+ pitting edema b/l lower extremities CBCD WBC 5.5 K/mm3 (4.0-10.0) 04/18/17 06:00 RBC 4.91 M/mm3 (3.60-5.2) 04/18/17 06:00 Hgb 9.9 GM/dL (10.7-15.3) L 04/18/17 06:00 Hct 32.8 % (32.4-45.2) 04/18/17 06:00 MCV 66.7 fl (80-96) L 04/18/17 06:00 MCHC 30.2 g/dl (32.0-36.0) L 04/18/17 06:00 RDW 20.0 % (11.6-15.6) H 04/18/17 06:00 Plt Count 201 K/MM3 (134-434) D 04/18/17 06:00 MPV 9.2 fl (7.5-11.1) 04/18/17 06:00 CMP Sodium 145 mmol/L (136-145) 04/18/17 06:00 Potassium 4.4 mmol/L (3.5-5.1) 04/18/17 06:00 Chloride 109 mmol/L (98-107) H 04/18/17 06:00 Carbon Dioxide 28 mmol/L (21-32) 04/18/17 06:00 Anion Gap 8 (8-16) 04/18/17 06:00 BUN 5 mg/dL (7-18) L D 04/18/17 06:00 Creatinine 0.6 mg/dL (0.55-1.02) 04/18/17 06:00 Creat Clearance w eGFR > 60 (>60) 04/18/17 06:00 Random Glucose 96 mg/dL (74-106) 04/18/17 06:00 Calcium 9.0 mg/dL (8.5-10.1) 04/18/17 06:00 Total Bilirubin 0.4 mg/dL (0.2-1.0) D 04/18/17 06:00 AST 10 U/L (15-37) L D 04/18/17 06:00 ALT 14 U/L (12-78) 04/18/17 06:00 Alkaline Phosphatase 110 U/L (45-117) 04/18/17 06:00 Total Protein 5.7 g/dl (6.4-8.2) L 04/18/17 06:00 Albumin 2.7 g/dl (3.4-5.0) L 04/18/17 06:00 CARDIAC ENZYMES Creatine Kinase 105 IU/L (26-192) 04/13/17 19:50 Troponin I < 0.02 ng/ml (0.00-0.05) 04/13/17 19:50 Imaging 04/13 CTAP: equivocal mild concentric rectal wall thickening; moderate fecal retention 04/13 Xray LSS: recent compression deformity superior endplate of L2 04/17 abd x-ray: retained stool consistent with constipation Assessment: This is an 86 year old female with PMHx of HTN, hyperlipidemia, atrial fibrillation (on Eliquis), chronic diastolic heart failure, asthma/COPD, pulmonary sarcoid, anemia, who presented to the ED with abdominal pain and diarrhea x1 month. Plan: 1) GI: Fecal retention - CT with moderate fecal retention - Abd x-ray 04/17 with retained stool - Soft, formed bowel movements observed yesterday and today - Discontinue flagyl and vancomycin - Appreciate GI consult 2) Cardiology: Chronic diastolic heart failure - 03/21/17 Echo: mild concentric LVH; normal LV; normal RV;moderate ANTONIO;moderate MR; moderate TR; RSVP 40-50 - Resumed on Lasix - Continue to monitor daily weights - Strict I&O - Appreciate cardiology consult- shortness of breath and chest heaviness at baseline, no further cardiac workup at this time Chronic atrial fibrillation - Rate controlled, continue Cardizem - Continue Eliquis HTN - As above - Continue to monitor Hyperlipidemia - Continue Lipitor 2) Pulmonary: Asthma/COPD - Stable - Discontinue Prednisone, taper completed 3) Hematology: Microcytic anemia - H/H stable - Continue to monitor 4) MSK: Compression fracture at L2 - Per ortho, analgesics, PT and corset to lumbar spine if pain 5) F/E/N: - Low sodium diet - Monitor electrolytes 6) Prophylaxis: - On Eliquis - PT evaluation 7) Dispo: - Requires continued inpatient care - For transfer back to rehab tomorrow (they are not accepting transfers today) CODE STATUS: FULL CODE Visit type - Emergency Visit Emergency Visit: Yes ED Registration Date: 04/15/17 Care time: The patient presented to the Emergency Department on the above date and was hospitalized for further evaluation of their emergent condition. - New Patient This patient is new to me today: No - Critical Care Critical Care patient: No
[2017-04-19] MEDS: ATORVASTATIN CA 20 MG TABLET (FP) PO SCH (21:25)
[2017-04-19] MEDS: LIDOCAINE PATCH REMOVAL MC SCH (21:26)
[2017-04-19] MEDS: LATANOPROST 0.005% OPHTH SOLN 2.5ML BOTTLE OD SCH (21:27)
[2017-04-19] MEDS: ACETAMINOPHEN 325 MG TABLET (FP) PO PRN (21:30)
[2017-04-20] MEDS: ACETAMINOPHEN 325 MG TABLET (FP) PO PRN (04:31)
--- NOTE | 2017-04-20 08:52 | DS ---
Physical Examination Vital Signs: Vital Signs Temperature 98.9 F 04/20/17 06:00 Pulse Rate 93 H 04/20/17 06:00 Respiratory Rate 18 04/20/17 06:00 Blood Pressure 129/74 04/20/17 06:00 O2 Sat by Pulse Oximetry (%) 100 04/19/17 21:00 Labs: CBC, BMP 04/18/17 06:00 04/18/17 06:00 Discharge Summary Reason For Visit: CHEST PAIN LOW BACK PAIN Current Active Problems Chest pain (Resolved) Diarrhea (resolved) Low back pain (Chronic) Hospital Course: Assessment: This is an 86 year old female with PMHx of HTN, hyperlipidemia, atrial fibrillation (on Eliquis), chronic diastolic heart failure, asthma/COPD, pulmonary sarcoid, anemia, who presented to the ED with abdominal pain and diarrhea x1 month. Imaging 04/13 CTAP: equivocal mild concentric rectal wall thickening; moderate fecal retention 04/13 Xray LSS: recent compression deformity superior endplate of L2 04/17 abd x-ray: retained stool consistent with constipation Plan: 1) GI: Fecal retention - CT with moderate fecal retention - Abd x-ray 04/17 with retained stool - Soft, formed bowel movements observed for the past 2 days - Discontinued flagyl and vancomycin on 04/19 - Appreciate GI consult 2) Cardiology: Chronic diastolic heart failure - 03/21/17 Echo: mild concentric LVH; normal LV; normal RV;moderate ANTONIO;moderate MR; moderate TR; RSVP 40-50 - Continue Lasix 40mg po daily - Appreciate cardiology consult- shortness of breath and chest heaviness at baseline, no further cardiac workup at this time Chronic atrial fibrillation - Rate controlled, continue Cardizem (dose decreased from original home dose) - Continue Eliquis HTN - As above - Continue to monitor Hyperlipidemia - Continue Lipitor 2) Pulmonary: Asthma/COPD - Stable - Discontinue Prednisone, taper completed - Continue Symbicort - On home O2 - Continue Duonebs 3) Hematology: Microcytic anemia - H/H stable - Continue to monitor 4) MSK: Compression fracture at L2 - Per ortho, analgesics, PT and corset to lumbar spine if pain 5) F/E/N: - Low sodium diet Please follow-up with cardiology, GI, pcp, and ortho within 1 week. Please return to the ED with new, persistent, or worsening symptoms. This discharge took 45 minutes to complete. Condition: Improved - Instructions Diet, Activity, Other Instructions: Please return to the ED with new, persistent, or worsening symptoms. Please follow-up with your providers as indicated. Referrals: Malini Gomez MD [Staff Physician] - (Please follow-up with cardiology within 1 week for further management of your a.fib and shortness of breath) Avila Buck MD [Staff Physician] - (Please follow-up with GI (Dr. Buck) within 2-3 days for further evaluation if your diarrhea returns) Silverio Dewitt MD [Primary Care Provider] - (Please follow-up with your primary care provider within 1 week) Wilfred Skinner MD [Staff Physician] - (Please follow-up with Dr. Skinner for further management of your back pain) Disposition: [facility]ILITY - Home Medications Comprehensive Discharge Medication List: Ambulatory Orders Albuterol 0.083% Nebulizer Lyudmila [Ventolin 0.083% Nebulizer Soln -] 1 amp NEB Q8H 01/19/17 Apixaban [Eliquis] 5 mg PO BID 01/19/17 Ascorbic Acid [Vitamin C -] 500 mg PO DAILY 01/19/17 Atorvastatin Ca [Lipitor] 20 mg PO DAILY 01/19/17 Bisacodyl Suppository [Dulcolax Suppository -] 10 mg RC PRN 01/19/17 Folic Acid 1 mg PO DAILY 01/19/17 Furosemide [Lasix] 40 mg PO DAILY 01/19/17 Gabapentin 100 mg PO TID 01/19/17 Ipratropium 0.02% Nebulizer [Atrovent 0.02% Nebulizer -] 0.5 mg IH Q8H 01/19/17 Latanoprost 0.005% Eye Drops [Xalatan 0.005% Eye Drops -] 1 drop OU HS 01/19/17 Magnesium Hydroxide [Milk of Magnesia] 30 ml PO DAILY 01/19/17 Multivitamin [Poly-Vitamin] 1 each PO DAILY 01/19/17 Pantoprazole Sodium 40 mg PO DAILY 01/19/17 Potassium Chloride [Klor-Con 10] 10 meq PO DAILY 01/19/17 Acetaminophen [Tylenol .Regular Strength -] 650 mg PO Q6H PRN #0 tablet Budesonide/Formeterol Fumarate [SYMBICORT 160/4.5mcg -] 2 inh PO BID #0 inh 03/02 Diltiazem Cd [Cardizem Cd -] 120 mg PO DAILY tab 04/20/17 Lidocaine 5% Patch [Lidoderm -] 1 patch TP DAILY patch 04/20/17 Lidocaine Patch Removal [Lidoderm Patch Removal] 1 each MC DAILY@2200 each 03/02 Polyethylene Glycol 3350 [Miralax 119 gm Btl -] 17 gm PO BID bottle 04/20/17 This patient is new to me today: No Emergency Visit: Yes ED Registration Date: 04/15/17 Care time: The patient presented to the Emergency Department on the above date and was hospitalized for further evaluation of their emergent condition. Critical Care patient: No - Discharge Referral Referred to [facility] No
[2017-04-20] MEDS: POLYETHYLENE GLYCOL 3350 119 GM BTL PO SCH (10:04)
[2017-04-20] MEDS: GABAPENTIN 100 MG CAPSULE (FP) PO SCH (10:21)
[2017-04-20] MEDS: POTASSIUM CHLORIDE TABS 10 MEQ TABLET.ER (FP) PO SCH (10:21)
[2017-04-20] MEDS: FUROSEMIDE 40 MG TABLET (FP) PO SCH (10:21)
[2017-04-20] MEDS: APIXABAN 5 MG TABLET PO SCH (10:21)
[2017-04-20] MEDS: PANTOPRAZOLE 40 MG TABLET (FP) PO SCH (10:21)
[2017-04-20] MEDS: LIDOCAINE 5% TOPICAL PATCH TP SCH (10:22)
[2017-04-20] MEDS: BUDESONIDE/FORMETEROL FUMARATE 160/4.5 mcg INHALER IH SCH (10:23)
--- NOTE | 2017-04-20 10:38 | PN ---
Progress Note (short form) - Note Progress Note: s: no cp sob palps dizzy o: Vital Signs Period Temp Pulse Resp BP Sys/Garza Pulse Ox Last 24 Hr 98.1 F-98.9 F 74-93 16-18 119-129/51-74 100 nad calm no jvd, neck supple irregularly irregular s1s2 2/6 sys murmur at lsb. ctab, nl eff aaox3 trace-1+ le edema bl, no c/c abd nd pos bs, soft + tenderness diffusely no diaphoresis/jaundice Current Medications Generic Name Dose Route Start Last Admin Trade Name Freq PRN Reason Stop Dose Admin Acetaminophen 650 mg 04/13/17 08:09 04/20/17 04:31 Tylenol - PO 650 mg Q6H PRN Administration FEVER OR PAIN Albuterol/Ipratropium 1 amp 04/13/17 08:02 04/13/17 13:07 Duoneb - NEB 1 amp Q6H PRN Administration SHORTNESS OF BREATH Apixaban 5 mg 04/13/17 10:00 04/20/17 10:21 Eliquis - PO 5 mg BID LISA Administration Atorvastatin Calcium 20 mg 04/13/17 22:00 04/19/17 21:25 Lipitor - PO 20 mg HS LISA Administration Budesonide/Formoterol Fumarate 2 puff 04/13/17 14:36 04/20/17 10:23 Symbicort 160/4.5mcg - IH 2 puff BID LISA Administration Diltiazem HCl 120 mg 04/16/17 10:00 04/20/17 10:21 Cardizem Cd - PO 120 mg DAILY LISA Administration Furosemide 40 mg 04/17/17 12:30 04/20/17 10:21 Lasix - PO 40 mg DAILY LISA Administration Gabapentin 100 mg 04/13/17 10:00 04/20/17 10:21 Neurontin - PO 100 mg DAILY LISA Administration Latanoprost 1 drop 04/13/17 22:00 04/19/17 21:27 Xalatan 0.005% Eye Drops - OD 1 drop HS LISA Administration Lidocaine 1 patch 04/13/17 10:00 04/20/17 10:22 Lidoderm Patch - TP Not Given DAILY LISA Miscellaneous 1 each 04/13/17 22:00 04/19/17 21:26 Lidoderm Patch Removal MC 1 each DAILY@2200 LISA Administration Pantoprazole Sodium 40 mg 04/13/17 10:00 04/20/17 10:21 Protonix - PO 40 mg DAILY LISA Administration Polyethylene Glycol 17 gm 04/16/17 13:15 04/20/17 10:04 Miralax (For Daily Use) - PO Not Given BID LISA Potassium Chloride 10 meq 04/13/17 10:00 04/20/17 10:21 K-Dur - PO 10 meq DAILY LISA Administration CBC, BMP 04/18/17 06:00 04/18/17 06:00 ecg: afib, 96 bpm. no ischemic changes echo 03/21/2017: Mild conc lvh. nl lv/rv size/fn, mod ronnie, mod mr, mod tr, rvsp 40-50 cxr: CM, no acute pathology a/p: 80 yo with h/o afib on eliquis, htn, hld, pulm sarcoid, copd/asthma, on home oxygen, diastolic HF, pernicous anemia, migraine, OA, vertigo, p/w diarrhea/ fever and noted to have associated CP. diarrhea/fever - per primary team CP/+chest heaviness: - Same symptoms has her chronic daily non-cardiac chest heaviness. Symptoms have been present for years and she had cardiac w/u for this including cath 2009 at [facility] showing non obstructive cad. - EKG here without ischemic changes. ce's neg x 2. - no further w/u indicated at present time afib - rates controlled, cont diltiazem - on eliquis, H/H stable here diastolic hf - outpt lasix held here due to poor po intake and diarrhea. (review of abdominal ct does not show significant pulmonary edema/effusions on visualized portions of lungs. Chronic LE edema improved from baseline). - back on lasix 40 qd, lytes/renal fxn stable. edema and sob (both mild) at her baseline per pt - cont same, observe htn: - controlled, cont same meds hld: - cont prior statin sarcoid/copd - on O2 - per pmd cardiac rojas remains stable
[2017-04-20 12:04] VITALS: BP 144/71; PULSE 97; TEMP 98.8
--- NOTE | 2017-04-20 12:38 | PN ---
Progress Note (short form) - Note Progress Note: Pt seen and examined. She is still in a lot of pain in her low back. She has a lumbar compression fracture. At the moment we would still recommend P.T. and pain management. If that fails she should consider surgery (kyphoplasty vs stabilization surgery) She is welcome to f/u as an out pt
--- NOTE | 2017-04-27 12:18 | EKG ---
Test Reason : Blood Pressure : / mmHG Vent. Rate : 096 BPM Atrial Rate : 182 BPM P-R Int : 000 ms QRS Dur : 086 ms QT Int : 372 ms P-R-T Axes : 000 -08 -02 degrees QTc Int : 469 ms ATRIAL FIBRILLATION ABNORMAL ECG WHEN COMPARED WITH ECG OF 12-APR-2017 22:09, NO SIGNIFICANT CHANGE WAS FOUND Confirmed by CLAIRE SALMERON MD ([id number]) on 04/27/2017 12:17:55 PM Referred By: Confirmed By:CLAIRE SALMERON MD
== END 2017-04-20 15:15 | DRG 392 ==
LOC: EDBD 20:34 → JER 20:34 → EDBD 04-13 06:59 → JERBED 04-13 06:59 → UNDOADMOB 04-13 07:28 → INTOOBSV 04-13 07:28 → J4S 04-13 15:36 → J8W 04-14 20:22 → OBSVTOIN 04-15 13:04
PROVIDERS: ADMIT Internal Medicine; ATTEND Registered Nurse
DX: K59.00 Constipation, unspecified (principal); I50.32 Chronic diastolic (congestive) heart failure; M48.56XA Collapsed vertebra, not elsewhere classified, lumbar region, initial encounter for fracture; R19.7 Diarrhea, unspecified; M54.5 Low back pain; J44.9 Chronic obstructive pulmonary disease, unspecified; F32.9 Major depressive disorder, single episode, unspecified; E78.5 Hyperlipidemia, unspecified; I11.0 Hypertensive heart disease with heart failure; J45.909 Unspecified asthma, uncomplicated; D50.9 Iron deficiency anemia, unspecified; R07.9 Chest pain, unspecified; H40.9 Unspecified glaucoma; D86.9 Sarcoidosis, unspecified; I48.2 Chronic atrial fibrillation
CPT/HCPCS: 36415; 71010-TC; 72070-TC; 72100-TC; 74020-TC; 74177-TC; 80048; 80053; 81003; 82272; 82550; 82607; 82728; 83540; 83690; 83735; 84484; 85025; 85610; 87045; 87046; 87205; 93005; 93010; 97116-GP; 97162-GP; 99285-25; G0378

== ENCOUNTER 2018-04-16 18:24 | Inpatient (IN) | payer OTHER ==
[2018-04-16 18:50] VITALS: BMI 32.8
[2018-04-16] MEDS ORDERED: ALBUTEROL SO4 2.5/IPRATROPIUM 0.5 INH SOL 3 ML VIAL.NEB. NEB ONE (19:04)
--- NOTE | 2018-04-16 19:14 | PDOC ---
History of Present Illness - General Chief Complaint: SIRS, Suspected/Possible Stated Complaint: SHORTNESS OF BREATH Time Seen by Provider: 04/16/18 19:13 - History of Present Illness Initial Comments: 87 year old female with PMH of pernicious anemia, iliac stent (on eliquis), COPD (Home O2 2L), CHF, HTN, HLD, glaucoma, sarcoidosis, migraines, arthritis, sepsis, vertigo, HLD, and colon polyps presents from [facility] presents with shortness of breath for the past two days after spending extended time outside. States that she had been outside for a few hours a day recently and felt "as if I was going to " when she woke up yesterday morning. She had to increase her home o2 but it was uncomfortable so she brought it back down. She also admits to a slight headache. Denies fevers, chills, cough, urinary symptoms, chest pain, nausea, vomiting, diarrhea, constipation, or other symptoms. 04/16/18 19:16 Past History - Past Medical History Allergies/Adverse Reactions: Allergies Allergy/AdvReac Type Severity Reaction Status Date / Time No Known Allergies Allergy Verified 04/16/18 19:58 Home Medications: Ambulatory Orders Albuterol 2.5/Ipratropium 0.5 [Duoneb -] 1 neb IH QID 04/16/18 Apixaban [Eliquis] 5 mg PO BID 04/16/18 Atorvastatin Ca [Lipitor] 20 mg PO HS 04/16/18 Escitalopram Oxalate [Lexapro -] 20 mg PO DAILY 04/16/18 Folic Acid 1 mg PO DAILY 04/16/18 Furosemide [Lasix] 40 mg PO DAILY 04/16/18 Atenolol [Tenormin -] DAILY 04/17/18 Fluticasone/Salmeterol [Airduo Respiclick 232-14 Mcg] BID 04/17/18 Ipratropium [place] [Atrovent Hfa] 04/17/18 Nifedipine [Nifedipine ER] 04/17/18 Sennosides/Docusate Sodium [Docusate Sodium-Senna Tablet] 04/17/18 Anemia: Yes (Pernicious) Asthma: Yes Cancer: No Cardiac Disorders: Yes (heart murmur) CVA: No COPD: Yes CHF: No Dementia: No Diabetes: No GI Disorders: No Disorders: No HTN: Yes Hypercholesterolemia: Yes Liver Disease: No Psychiatric Problems: Yes (ANXIETY.) Seizures: No Thyroid Disease: No - Surgical History Abdominal Surgery: Yes (abdominal) Appendectomy: No Cardiac Surgery: No Cholecystectomy: Yes Lung Surgery: No (PT DENIES) Neurologic Surgery: No Orthopedic Surgery: Yes (cervical spine/hardware) - Immunization History Immunization Up to Date: No - Suicide/Smoking/Psychosocial Hx Smoking Status: No Smoking History: Unknown if ever smoked Years of Tobacco Use: 0 Have you smoked in the past 12 months: No Number of Cigarettes Smoked Daily: 0 Information on smoking cessation initiated: No Hx Alcohol Use: No Drug/Substance Use Hx: No Substance Use Type: None Hx Substance Use Treatment: No Review of Systems - Review of Systems Constitutional: No: Chills, Diaphoresis, Fever Respiratory: Yes: Shortness of Breath, Wheezing. No: Cough, Orthopnea, Productive cough Cardiac (ROS): No: Chest Pain, Irregular Heart Rate ABD/GI: No: Diarrhea, Nausea, Vomiting : No: Burning, Dysuria, Discharge Integumentary: No: Bruising, Flushing, Lesions, Pruritus Neurological: Yes: Headache. No: Numbness, Paresthesia Psychiatric: No: Depression All Other Systems: Reviewed and Negative *Physical Exam - Vital Signs Last Vital Signs Temp Pulse Resp BP Pulse Ox 98.8 F 85 20 149/72 89 L 04/16/18 18:46 04/16/18 18:46 04/16/18 18:46 04/16/18 18:46 04/16/18 18:46 - Physical Exam General Appearance: Yes: Nourished, Appropriately Dressed. No: Apparent Distress HEENT: positive: EOMI, MAUREEN, Normal ENT Inspection, Normal Voice Neck: positive: Trachea midline, Normal Thyroid, Supple. negative: Tender, Rigid Respiratory/Chest: negative: Chest Tender, Lungs Clear, Normal Breath Sounds ( Inspiratory crackles blaterally, more promient in the left id and lower lung base. Slight expiratory wheezing.), Respiratory Distress, Accessory Muscle Use Cardiovascular: positive: Regular Rhythm, Regular Rate, Edema (bl LE pitting edema) Gastrointestinal/Abdominal: positive: Normal Bowel Sounds, Flat, Soft. negative : Tender Musculoskeletal: positive: Normal Inspection (Globally weak but non-focal). negative: Decreased Range of Motion ED Treatment Course - LABORATORY CBC & Chemistry Diagram: 04/16/18 19:43 04/16/18 19:43 Medical Decision Making - Medical Decision Making 87 year old female presenting with respiratory distress and bl crackles with pitting edema in bl lower extremities and labs + cxr corroborating fluid overload. Patient given IV lasix and admitted for CHF exacerbation. 04/17/18 06:19 *DC/Admit/Observation/Transfer Diagnosis at time of Disposition: CHF (congestive heart failure) Qualifiers: Heart failure type: systolic Heart failure chronicity: acute Qualified Code(s) : I50.21 - Acute systolic (congestive) heart failure - Discharge Dispostion Condition at time of disposition: Stable Decision to Admit order: Yes - Referrals - Patient Instructions - Post Discharge Activity
[2018-04-16] MEDS ORDERED: ALBUTEROL SO4 0.083% IH SOL 2.5 MG/3 ML VIAL.NEB. NEB ONE (19:47)
[2018-04-16] MEDS ORDERED: methylPREDNISolone NA SUCC 125 MG/2 ML VIAL IVPB ONE (19:47)
--- NOTE | 2018-04-16 19:47 | PDOC ---
Attending Attestation - HPI HPI: 04/16/18 20:09 The patient is an 87-year-old female with past medical history of COPD, CHF, HTN , HLD, arthritis, Iliac stent on eliquis, O2 dependent and pernicious anemia presents from [facility] with shortness of breath. Patient presents with 2 days worsening shortness of breath, no relief s/p increased O2 at home. The patient states the problem presented after spending extended hours outside, woke up yesterday with difficulty breathing. Patient reports associated concern of a mild headache. Denies fever, chills, or a cough. Denies chest pain, palpitations or orthopnea. Denies abdominal pain, back pain or neck pain. Denies dysuria, hematuria, frequency or urgency to urinate. Denies diarrhea or constipation. Denies nausea or vomiting. Allergies: NKDA Social history: Patient denies the use of alcohol, cigarettes or recreational drugs. Surgical history: Lung surgery, cervical spinal Surgery, iliac stents and Cholecystectomy. PCP: Dr. Wright, [facility] in the [place] Worker: Dr. Moreland - Physicial Exam PE: 04/17/18 03:23 Agree with Resident. - Medical Decision Making 04/17/18 03:23 Documentation prepared by Anabell Laughlin, acting as medical health researcher for Tali Barger MD.
[2018-04-16 19:53] LABS: BASO % 0.8 % (0-2.0); EOS % 1.4 % (0-4.5); HEMATOCRIT 35.7 % (32.4-45.2); HEMOGLOBIN 10.3 GM/dL (10.7-15.3); LYMPH % 38.7 % (8-40); MCHC 28.8 g/dl (32.0-36.0); MEAN CELL VOLUME 69.2 fl (80-96); MEAN PLT VOLUME 9.6 fl (7.5-11.1); MONO % 14.7 % (3.8-10.2); NEUT % 44.4 % (42.8-82.8); PLATELET COUNT 143 K/MM3 (134-434); RBC 5.16 M/mm3 (3.60-5.2); RDW 19.4 % (11.6-15.6); WHITE BLOOD COUNT 3.9 K/mm3 (4.0-10.0)
[2018-04-16] MEDS ORDERED: methylPREDNISolone NA SUCC 125 MG/2 ML VIAL ONE (19:53)
[2018-04-16 19:58] LABS: MCH 19.9 pg (25.7-33.7)
[2018-04-16 20:17] LABS: ALBUMIN 3.6 g/dl (3.4-5.0); ANION GAP 3 (8-16); BILIRUBIN,TOTAL 0.7 mg/dL (0.2-1.0); BLOOD UREA NITROGEN 7 mg/dL (7-18); CALCIUM 9.3 mg/dL (8.5-10.1); CHLORIDE 101 mmol/L (98-107); CO2 38 mmol/L (21-32); CREATININE 0.8 mg/dL (0.55-1.02); GLUCOSE,RANDOM 98 mg/dL (74-106); POTASSIUM 3.8 mmol/L (3.5-5.1); SGOT/AST 17 U/L (15-37); SGPT/ALT 18 U/L (12-78); SODIUM 142 mmol/L (136-145); TOT PROT 7.3 g/dl (6.4-8.2)
[2018-04-16 20:20] LABS: ALK PHOS 83 U/L (45-117)
[2018-04-16] MEDS ORDERED: FUROSEMIDE 40 MG/4 ML INJECTABLE VIAL IVPUSH ONE (21:42)
[2018-04-16 21:46] LABS: ANISOCYTOSIS 2+; MACROCYTOSIS 1+; PLATELET ESTIMATE ADEQUATE; TARGET CELLS 1+
[2018-04-16] MEDS ORDERED: FUROSEMIDE 40 MG/4 ML INJECTABLE VIAL ONE (21:50)
[2018-04-16 22:27] LABS: URINE APPEARANCE SLCLOUDY; URINE BILIRUBIN NEGATIVE (<2.0 mg/dL); URINE COLOR YELLOW; URINE GLUCOSE (UA) NEGATIVE (NEGATIVE); URINE KETONE NEGATIVE (NEGATIVE); URINE NITRITE NEGATIVE (NEGATIVE)
[2018-04-16 22:38] LABS: URINE LEUK ESTERASE 1+ (NEGATIVE); URINE PROTEIN 1+ (NEGATIVE)
[2018-04-16 22:39] LABS: EPI CELLS FEW /HPF (FEW); URINE BACTERIA RARE /hpf (NONE SEEN)
[2018-04-16 22:40] LABS: URINE MUCUS RARE
--- NOTE | 2018-04-16 23:39 | HP ---
CHIEF COMPLAINT: "Hard to breathe" PCP: HISTORY OF PRESENT ILLNESS: 87 y/o female from [facility] presents with difficulty breathing that began yesterday. Admits gradual onset with impending sense of doom as she was laying in bed. Increasing oxygen via nasal cannula to 3L was palliative in nursing facility. She denies provocative features. Admits to decreased appetite and constipation with hard stools. Denies Hematochezia, hematuria. Denies: Fevers, chills, cough, nausea, vomiting, diarrhea, fall, loss of consciousness ER course was notable for: (1)Lasix IV 40mg (2)Duoneb, Ventolin, and Methylprednisone 125mg IV (3)CXR showed enlarged cardiac silhouette with right sided infiltrates Recent Travel: PAST MEDICAL HISTORY: HTN, HLD, Afib on Eliquis, CHF, Asthma, COPD, anemia PAST SURGICAL HISTORY: Hysterectomy- 20 years ago Social History: Smoking: denies Alcohol: denies Drugs: denies Family History: unknown heart condition in mother, and father Allergies No Known Allergies Allergy (Verified 04/16/18 19:58) HOME MEDICATIONS: Home Medications Medication Instructions Recorded Acetaminophen [Pain Relief] 650 mg PO BID 04/16/18 Albuterol 2.5/Ipratropium 0.5 1 neb IH QID 04/16/18 [Duoneb -] Apixaban [Eliquis] 5 mg PO BID 04/16/18 Ascorbic Acid [Vitamin C] 500 mg PO DAILY 04/16/18 Atorvastatin Ca [Lipitor] 20 mg PO HS 04/16/18 Budesonide/Formeterol Fumarate 1 inh PO BID 04/16/18 [SYMBICORT 160/4.5mcg -] Diltiazem Cd [Cardizem Cd -] 120 mg PO DAILY 04/16/18 Escitalopram Oxalate [Lexapro -] 20 mg PO DAILY 04/16/18 Folic Acid 1 mg PO DAILY 04/16/18 Furosemide [Lasix] 40 mg PO DAILY 04/16/18 Gabapentin 200 mg PO TID 04/16/18 Lorazepam 0.5 mg PO DAILY 04/16/18 Mag Hydrox/Al Hydrox/Simeth 30 ml PO BID PRN 04/16/18 [Mylanta Oral Suspension -] Omeprazole 20 mg PO DAILY 07/01/18 Ramipril 2.5 mg PO DAILY 04/16/18 Trazodone HCl 50 mg PO HS 04/16/18 REVIEW OF SYSTEMS CONSTITUTIONAL: Absent: fever, chills, diaphoresis, generalized weakness HEENT: Absent: rhinorrhea, nasal congestion CARDIOVASCULAR: Positive: peripheral edema. Absent: chest pain, syncope, palpitations RESPIRATORY: Absent: cough, shortness of breath, hemoptysis GASTROINTESTINAL: Absent: abdominal pain, nausea, vomiting, diarrhea, constipation, melena, hematochezia GENITOURINARY: Absent: dysuria,hematuria, flank pain PHYSICAL EXAMINATION Vital Signs - 24 hr 04/16/18 04/16/18 04/16/18 18:46 20:02 23:08 Temperature 98.8 F Pulse Rate 85 72 Pulse Rate [ 89 Apical] Respiratory 20 22 Rate Blood Pressure 149/72 Blood Pressure 129/81 [Left Arm] O2 Sat by Pulse 89 L 94 L 99 Oximetry (%) GENERAL: Awake, alert, in no acute distress. Lungs: Good inspiratory effort. End expiratory wheezes auscultated B/L in upper and lower lung lobes with bibasilar crackles. Heart: S1, S2 auscultated, no murmurs, rubs, gallops. Irregular heart rate. Abdomen: Bowel sounds auscultated X4 quadrants. Soft, nontender to palpation. Extremities: 2+ pitting edema B/L lower extremities. Radial pulses B/L 2+ and DP pulses B/L 2+ Neuro: No focal defecits. No facial droop, no slurred speech. Laboratory Results - last 24 hr 04/16/18 04/16/18 04/16/18 19:43 19:43 19:43 WBC 3.9 L RBC 5.16 Hgb 10.3 L Hct 35.7 MCV 69.2 L MCH 19.9 L MCHC 28.8 L RDW 19.4 H Plt Count 143 D MPV 9.6 Absolute Neuts (auto) 1.7 Neutrophils % 44.4 D Lymphocytes % 38.7 D Monocytes % 14.7 H Eosinophils % 1.4 Basophils % 0.8 Nucleated RBC % 0 Hypochromia 3+ Platelet Estimate Adequate Platelet Comment No clumping noted Anisocytosis 2+ Microcytosis 1+ Macrocytosis 1+ Target Cells 1+ Sodium 142 Potassium 3.8 Chloride 101 Carbon Dioxide 38 H Anion Gap 3 L BUN 7 Creatinine 0.8 Creat Clearance w eGFR > 60 Random Glucose 98 Calcium 9.3 Total Bilirubin 0.7 AST 17 ALT 18 Alkaline Phosphatase 83 Creatine Kinase 73 Troponin I 0.03 B-Natriuretic Peptide 3098.51 H Total Protein 7.3 Albumin 3.6 Urine Color Urine Appearance Urine pH Ur Specific [place] Urine Protein Urine Glucose (UA) Urine Ketones Urine Blood Urine Nitrite Urine Bilirubin Urine Urobilinogen Ur Leukocyte Esterase Urine WBC (Auto) Urine RBC (Auto) Ur Epithelial Cells Urine Bacteria Urine Mucus 04/16/18 22:20 WBC RBC Hgb Hct MCV MCH MCHC RDW Plt Count MPV Absolute Neuts (auto) Neutrophils % Lymphocytes % Monocytes % Eosinophils % Basophils % Nucleated RBC % Hypochromia Platelet Estimate Platelet Comment Anisocytosis Microcytosis Macrocytosis Target Cells Sodium Potassium Chloride Carbon Dioxide Anion Gap BUN Creatinine Creat Clearance w eGFR Random Glucose Calcium Total Bilirubin AST ALT Alkaline Phosphatase Creatine Kinase Troponin I B-Natriuretic Peptide Total Protein Albumin Urine Color Yellow Urine Appearance Slcloudy Urine pH 6.0 Ur Specific [place] 1.013 Urine Protein 1+ H Urine Glucose (UA) Negative Urine Ketones Negative Urine Blood Negative Urine Nitrite Negative Urine Bilirubin Negative Urine Urobilinogen 2.0 H Ur Leukocyte Esterase 1+ H Urine WBC (Auto) 3 Urine RBC (Auto) 3 Ur Epithelial Cells Few Urine Bacteria Rare Urine Mucus Rare ASSESSMENT/PLAN: This is an 87 year old female with PMH of CHF, Afib on Eliquis, COPD, Asthma, HTN, HLD, who presents with difficulty breathing. She is admitted for CHF exacerbation, with possible COPD component. #CHF -bibasilar crackles and end expiratory wheezing auscultated -BNP of 3098 -CXR showed increased cardiac silhouette with right sided infiltrates, increased from prior study -received 40mg Lasix IV in ED -continue Lasix -transthoracic echocardiogram -monitor for worsening crackles -Consult liquid fertilizer servicer Dr. Moreland #COPD -Nasal cannula 3L Oxygen -Duoneb nebulizer #Microcytic Anemia -Hb 10.3, MCV 69.2 -Ferritin, TIBC, Transferrin -Start ferrrous sulfate #HTN -BP 149/72 upon admission -continue home medications Atenolol and Nifedipine #HLD -continue home medication Atorvastatin #Afib -irregular heartbeat -continue home medication Eliquis #Asthma -continue home medication Albuterol, and Advair #FEN -No fluids -No electrolyte abnormalities -Na controlled diet #Prophylaxis -Heparin 5000 units TID SubQ Disposition: Admit to Medical-Surgical Floor. Josemanuel Penaloza DO PGY1 IM Visit type - Emergency Visit Emergency Visit: Yes ED Registration Date: 04/16/18 Care time: The patient presented to the Emergency Department on the above date and was hospitalized for further evaluation of their emergent condition. - New Patient This patient is new to me today: Yes Date on this admission: 04/17/18 - Critical Care Critical Care patient: No Hospitalist Screening - Colonoscopy Questionnaire Colonoscopy Questionnaire: Colonoscopy Questionnaire - Patient: 50 - 75 years old and never had a screening colonoscopy: Unknown History of colon or rectal polyps, or CA: Unknown History of IBD, Crohn's disease or UC: Unknown History of abdominal radiation therapy as a child: Unknown - Relative: 1 with colon or rectal CA, or polyps at age 60 or younger: Unknown Colon or rectal CA diagnosed at age 45 or younger: Unknown Multiple relatives with colon or rectal CA: Unknown - Outcome: Screening Result: Negative Screen
--- NOTE | 2018-04-17 02:37 | PN ---
Teaching Attending Note Name of Resident: Josemanuel Penaloza ATTENDING PHYSICIAN STATEMENT I saw and evaluated the patient. I reviewed the resident's note and discussed the case with the resident. I agree with the resident's findings and plan as documented. SUBJECTIVE: 87F with COPD on home O2, diastolic heart failure presents with worsening SOB, wheezing, and leg swelling. exam remarkable for wheezing and decreased air entry at bases, and 2+ bilateral LE edema labs show BNP 3000 ECHO last done a year ago CXR bibasilar congestion Likely decompensated hear failure IV lasix 40q12 duonebs for wheezing and possible COPD component repeat ECHO cardiology Eval Afib paroxysmal- continue eliquis anemia microcytic -check iron studies
[2018-04-17] MEDS: FUROSEMIDE 40 MG/4 ML INJECTABLE VIAL IVPUSH SCH ×2 (06:38→13:58)
[2018-04-17] MEDS: ALBUTEROL SO4 2.5/IPRATROPIUM 0.5 INH SOL 3 ML VIAL.NEB. NEB SCH ×4 (07:53→20:37)
--- NOTE | 2018-04-17 10:38 | EKG ---
Test Reason : Blood Pressure : / mmHG Vent. Rate : 082 BPM Atrial Rate : 277 BPM P-R Int : 000 ms QRS Dur : 084 ms QT Int : 400 ms P-R-T Axes : 000 -17 004 degrees QTc Int : 467 ms ATRIAL FIBRILLATION POSSIBLE ANTERIOR INFARCT , AGE UNDETERMINED ABNORMAL ECG WHEN COMPARED WITH ECG OF 13-APR-2017 02:26, NO SIGNIFICANT CHANGE WAS FOUND Confirmed by BEE MAYERS MD ([id number]) on 04/17/2018 10:37:50 AM Referred By: Confirmed By:BEE MAYERS MD
[2018-04-17] MEDS: FERROUS SO4 325 MG TABLET (FP) PO SCH (10:40)
[2018-04-17] MEDS: APIXABAN 5 MG TABLET PO SCH ×2 (10:41→22:40)
[2018-04-17] MEDS: ATENOLOL 25 MG TABLET (FP) PO SCH (10:41)
[2018-04-17] MEDS: NIFEdipine E.R. 90 MG TABLET (FP) PO SCH (10:41)
[2018-04-17] MEDS: FLUTICASONE/SALMETEROL 100 MCG/50 MCG DISKUS IH SCH ×2 (10:41→22:40)
--- NOTE | 2018-04-17 11:32 | CON.CARD ---
Consult - History of Present Illness History of Present Illness: 87 year old female with PMH of pernicious anemia, iliac stent (on eliquis), COPD (Home O2 2L), CHF, HTN, HLD, glaucoma, sarcoidosis, migraines, arthritis, sepsis, vertigo, HLD, and colon polyps presents from [facility] presents with shortness of breath for the past two days after spending extended time outside. States that she had been outside for a few hours a day recently and felt "as if I was going to " when she woke up yesterday morning. She had to increase her home o2 but it was uncomfortable so she brought it back down. She also admits to a slight headache. Denies fevers, chills, cough, urinary symptoms, chest pain, nausea, vomiting, diarrhea, constipation, or other symptoms. - Past Medical History [employer]: Yes: Vertigo (intermittent) Cardio/Vascular: Yes: HTN, Hyperlipdemia Pulmonary: Yes: Asthma, COPD Renal/: Yes: Hematuria. No: Renal Calculi ...: No Psych: Yes: Depression - Past Surgical History Past Surgical History: Yes: Cholecystectomy - Alcohol/Substance Use Hx Alcohol Use: No - Smoking History Smoking history: Unknown if ever smoked Have you smoked in the past 12 months: No Aproximately how many cigarettes per day: 0 - Social History Usual Living Arrangement: Other (most recently has been at [place], and since developing pain has been ambulating with ) History of Recent Travel: No Home Medications - Allergies Allergies/Adverse Reactions: Allergies Allergy/AdvReac Type Severity Reaction Status Date / Time No Known Allergies Allergy Verified 04/16/18 19:58 - Home Medications Home Medications: Ambulatory Orders Albuterol 2.5/Ipratropium 0.5 [Duoneb -] 1 neb IH QID 04/16/18 Apixaban [Eliquis] 5 mg PO BID 04/16/18 Atorvastatin Ca [Lipitor] 20 mg PO HS 04/16/18 Escitalopram Oxalate [Lexapro -] 20 mg PO DAILY 04/16/18 Folic Acid 1 mg PO DAILY 04/16/18 Furosemide [Lasix] 40 mg PO DAILY 04/16/18 Atenolol [Tenormin -] DAILY 04/17/18 Fluticasone/Salmeterol [Airduo Respiclick 232-14 Mcg] BID 04/17/18 Ipratropium [place] [Atrovent Hfa] 04/17/18 Nifedipine [Nifedipine ER] 04/17/18 Sennosides/Docusate Sodium [Docusate Sodium-Senna Tablet] 04/17/18 Vital Signs: Vital Signs Temperature 98.9 F 04/17/18 09:43 Pulse Rate 95 H 04/17/18 09:43 Respiratory Rate 24 04/17/18 09:43 Blood Pressure 142/76 04/17/18 09:43 O2 Sat by Pulse Oximetry (%) 93 L 04/17/18 09:00 - Other Data Labs, Other Data: CBC, BMP 04/16/18 19:43 04/16/18 19:43 Troponin, BNP 04/16/18 04/16/18 19:43 19:43 Troponin I 0.03 B-Natriuretic Peptide 3098.51 H Troponin, BNP 04/16/18 04/16/18 19:43 19:43 Troponin I 0.03 B-Natriuretic Peptide 3098.51 H
--- NOTE | 2018-04-17 12:28 | CON.CARD ---
Consult Consult Specialty:: Cardiolgy coverage for Drs. Mendez/Aniceto Referred by:: Hospitalist Reason for Consultation:: Cardiac evaluation - History of Present Illness Chief Complaint: Shortness of breath History of Present Illness: Patient is an 87 year old female with underlying history of AF on NOAC (Eliquis) , HTN, hypercholesterolemia, COPD, sarcoidosis and anemia who presents from [facility] with dyspnea and impending sense of doom as she was resting. She was given oxygen and currently admitted to [facility] for further evaluation. She was seen on telemetry with persistent shortness of breath. She denies chest pain or palpitations. She denies fever or chills. She denies nausea , vomiting, diarrhea or abdominal pain. She denies headache or lightheadedness. Echocardiography reveals LA dilatation with moderate MR, dilated RV and RA and reduced RV function and moderate TR and severe pulmonary HTN. 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 AIDE: Yes: Vertigo (intermittent) Cardio/Vascular: Yes: AFIB, CHF, HTN, Hyperlipdemia, Pulmonary Hypertension, Other (Sarcoidosis) Pulmonary: Yes: Asthma, COPD Psych: Yes: Depression - Past Surgical History Past Surgical History: Yes: Cholecystectomy, Hysterectomy Additional Surgical History: Has surgical scar in the back suggests left lung surgery but patient claims that it was spine surgery - Alcohol/Substance Use Hx Alcohol Use: No History of Substance Use: reports: None - Smoking History Smoking history: Never smoked Have you smoked in the past 12 months: No Aproximately how many cigarettes per day: 0 - Social History Usual Living Arrangement: Other (most recently has been at [facility], and since developing pain has been ambulating with ) History of Recent Travel: No Home Medications - Allergies Allergies/Adverse Reactions: Allergies Allergy/AdvReac Type Severity Reaction Status Date / Time No Known Allergies Allergy Verified 04/16/18 19:58 - Home Medications Home Medications: Ambulatory Orders Albuterol 2.5/Ipratropium 0.5 [Duoneb -] 1 neb IH QID 04/16/18 Apixaban [Eliquis] 5 mg PO BID 04/16/18 Atorvastatin Ca [Lipitor] 20 mg PO HS 04/16/18 Escitalopram Oxalate [Lexapro -] 20 mg PO DAILY 04/16/18 Folic Acid 1 mg PO DAILY 04/16/18 Furosemide [Lasix] 40 mg PO DAILY 04/16/18 Atenolol [Tenormin -] DAILY 04/17/18 Fluticasone/Salmeterol [Airduo Respiclick 232-14 Mcg] BID 04/17/18 Ipratropium [place] [Atrovent Hfa] 04/17/18 Nifedipine [Nifedipine ER] 04/17/18 Sennosides/Docusate Sodium [Docusate Sodium-Senna Tablet] 04/17/18 Family Disease History - Family Disease History Family Disease History: Heart Disease: Father, Mother Review of Systems - Review of Systems Constitutional: denies: Chills, Fever Cardiovascular: reports: Shortness of Breath. denies: Chest Pain, Palpitations Respiratory: reports: Cough, SOB, SOB on Exertion. denies: Hemoptysis, PND Gastrointestinal: denies: Abdominal Pain, Constipation, Diarrhea, Melena, Nausea , Rectal Bleeding, Vomiting Genitourinary: denies: Dysuria, Hematuria Musculoskeletal: reports: Joint Pain Neurological: denies: Dizziness, Headache, Seizure, Syncope Vital Signs: Vital Signs Temperature 98.9 F 04/17/18 09:43 Pulse Rate 95 H 04/17/18 09:43 Respiratory Rate 24 04/17/18 09:43 Blood Pressure 142/76 04/17/18 09:43 O2 Sat by Pulse Oximetry (%) 93 L 04/17/18 09:00 HENT: Yes: Atraumatic Neck: Yes: Supple Respiratory: Yes: Diminished Gastrointestinal: Yes: Normal Bowel Sounds, Soft. No: Tenderness Cardiovascular: Yes: Tachycardia, Pulse Irregular JVD: No Carotid Bruit: No PMI: Non-Displaced Heart Sounds: Yes: S1, S2 Murmur: Yes: Systolic Murmur, Grade 1 Edema: No - Other Data Labs, Other Data: CBC, BMP 04/16/18 19:43 04/16/18 19:43 Troponin, BNP 04/16/18 04/16/18 19:43 19:43 Troponin I 0.03 B-Natriuretic Peptide 3098.51 H Laboratory Results - last 24 hr 04/16/18 04/16/18 04/16/18 19:43 19:43 19:43 WBC 3.9 L RBC 5.16 Hgb 10.3 L Hct 35.7 MCV 69.2 L MCH 19.9 L MCHC 28.8 L RDW 19.4 H Plt Count 143 D MPV 9.6 Absolute Neuts (auto) 1.7 Neutrophils % 44.4 D Lymphocytes % 38.7 D Monocytes % 14.7 H Eosinophils % 1.4 Basophils % 0.8 Nucleated RBC % 0 Hypochromia 3+ Platelet Estimate Adequate Platelet Comment No clumping noted Anisocytosis 2+ Microcytosis 1+ Macrocytosis 1+ Target Cells 1+ Sodium 142 Potassium 3.8 Chloride 101 Carbon Dioxide 38 H Anion Gap 3 L BUN 7 Creatinine 0.8 Creat Clearance w eGFR > 60 POC Glucometer Random Glucose 98 Calcium 9.3 Total Bilirubin 0.7 AST 17 ALT 18 Alkaline Phosphatase 83 Creatine Kinase 73 Troponin I 0.03 B-Natriuretic Peptide 3098.51 H Total Protein 7.3 Albumin 3.6 Urine Color Urine Appearance Urine pH Ur Specific [place] Urine Protein Urine Glucose (UA) Urine Ketones Urine Blood Urine Nitrite Urine Bilirubin Urine Urobilinogen Ur Leukocyte Esterase Urine WBC (Auto) Urine RBC (Auto) Ur Epithelial Cells Urine Bacteria Urine Mucus 04/16/18 04/17/18 22:20 05:21 WBC RBC Hgb Hct MCV MCH MCHC RDW Plt Count MPV Absolute Neuts (auto) Neutrophils % Lymphocytes % Monocytes % Eosinophils % Basophils % Nucleated RBC % Hypochromia Platelet Estimate Platelet Comment Anisocytosis Microcytosis Macrocytosis Target Cells Sodium Potassium Chloride Carbon Dioxide Anion Gap BUN Creatinine Creat Clearance w eGFR POC Glucometer 177 Random Glucose Calcium Total Bilirubin AST ALT Alkaline Phosphatase Creatine Kinase Troponin I B-Natriuretic Peptide Total Protein Albumin Urine Color Yellow Urine Appearance Slcloudy Urine pH 6.0 Ur Specific [place] 1.013 Urine Protein 1+ H Urine Glucose (UA) Negative Urine Ketones Negative Urine Blood Negative Urine Nitrite Negative Urine Bilirubin Negative Urine Urobilinogen 2.0 H Ur Leukocyte Esterase 1+ H Urine WBC (Auto) 3 Urine RBC (Auto) 3 Ur Epithelial Cells Few Urine Bacteria Rare Urine Mucus Rare Atrial fibrillation, possible anterior infarct Echo: Report Reviewed Imaging - Results Chest X-ray: Report Reviewed EKG: Report Reviewed Problem List - Problems (1) CHF (congestive heart failure) Code(s): I50.9 - HEART FAILURE, UNSPECIFIED Qualifiers: Heart failure type: systolic Heart failure chronicity: acute Qualified Code(s): I50.21 - Acute systolic (congestive) heart failure (2) Acute exacerbation of chronic obstructive pulmonary disease Code(s): J44.1 - CHRONIC OBSTRUCTIVE PULMONARY DISEASE W (ACUTE) EXACERBATION (3) COPD (chronic obstructive pulmonary disease) Code(s): J44.9 - CHRONIC OBSTRUCTIVE PULMONARY DISEASE, UNSPECIFIED Qualifiers: Chronic bronchitis type: unspecified (4) Chronic respiratory failure with hypoxia Code(s): J96.11 - CHRONIC RESPIRATORY FAILURE WITH HYPOXIA (5) Coronary artery disease Code(s): I25.10 - ATHSCL HEART DISEASE OF [place] CORONARY ARTERY W/O ANG PCTRS Qualifiers: Coronary Disease-Associated Artery/Lesion type: [place] artery [place] vs. transplanted heart: [place] heart Associated angina: without angina Qualified Code(s): I25.10 - Atherosclerotic heart disease of [place] coronary artery without angina pectoris (6) Hypertension Code(s): I10 - ESSENTIAL (PRIMARY) HYPERTENSION Qualifiers: Hypertension type: essential hypertension Qualified Code(s): I10 - Essential (primary) hypertension (7) Sarcoidosis Code(s): D86.9 - SARCOIDOSIS, UNSPECIFIED (8) Shortness of breath Code(s): R06.02 - SHORTNESS OF BREATH (9) Atrial fibrillation Code(s): I48.91 - UNSPECIFIED ATRIAL FIBRILLATION Qualifiers: Atrial fibrillation type: permanent Qualified Code(s): I48.2 - Chronic atrial fibrillation (10) Hypercholesterolemia Code(s): E78.00 - PURE HYPERCHOLESTEROLEMIA, UNSPECIFIED Assessment/Plan 1. Dyspnea, etiology to be determined, rule out PTE with echocardiographic evidence of RA and RV dilation, moderate TR and severe pulmonary HTN 2. Elevated BNP suggests LV failure, acute on chronic diastolic failure 3. Permanent AF on NOAC 4. HTN 5. History of sarcoidosis 6. Underlying COPD 7. Hypercholesterolemia 8. Anemia PLAN: 1. Trend troponin 2. Consider CT chest with contrast to rule out PE. Check D-dimer 3. Continue Eliquis for now but further plans to follow 4. Pulmonary consultation 5. Continue Tenormin and Procardia XL as tolerated 6. Diuretics 7. Transthoracic echocardiography reviewed 8. Consider steroids. Continue bronchodilators Further plans are to follow Farhan Simms MD
--- NOTE | 2018-04-17 14:45 | PN ---
Teaching Attending Note Name of Resident: Ade Weeks ATTENDING PHYSICIAN STATEMENT I saw and evaluated the patient. I reviewed the resident's note and discussed the case with the resident. I agree with the resident's findings and plan as documented. SUBJECTIVE:continues to have some dyspnea at rest but improved since yesterday. denies Cp, cough, Fever, chills, N/V/C/D was on steroids 2 months ago Typically uses 2L NC at home OBJECTIVE: Last Vital Signs Temp Pulse Resp BP Pulse Ox 98.9 F 95 H 24 142/76 93 L 04/17/18 09:43 04/17/18 09:43 04/17/18 09:43 04/17/18 09:43 04/17/18 09:00 Intake & Output 04/14/18 04/15/18 04/16/18 04/17/18 23:59 23:59 23:59 23:59 Intake Total 260 460 Output Total 1 Balance 260 459 Weight 185 lb 183 lb 12.8 oz General NAD CV S1 S2 RRR no murmrur/rub/gallop Lungs diffuse wheezing, crackles at the bases poor inspiratory effort Abdomen soft NT/ND extremities 2 + pitting edema ASSESSMENT AND PLAN: 87yo F with PMH afib on eliquis, COPD on home O2, diastolic CHF, HTN and dyslipidemia presented to the ER with dyspnea and belly pain and was found ot be in acute diastolic CHF 1. Acute on Chronic diastolic CHF- remains volume overloaded. cont with lasix 40mg IVPB BID. echo pending. cardio consulted. strict I&O, daily weights. 2. ACute COPD exacerbation- contimues to have diffuse wheezing. states she does not feel like she is wheezing and does not want long period of steroids. will give medrol 40mg. will assess daily and give short course. states she typically gets volume overloaded when on steroids nad wants to limit amount she receives 3. Microcytic anemia- Hgb at baseline. iron studies pending. no indication for txn 4. afib on eliquis- rate controlled. cont eliquis 5. HTN- controlled 6. dyslipidemia- statin 7. DVT ppx- eliquis
[2018-04-17] MEDS ORDERED: methylPREDNISolone NA SUCC 40 MG/1 ML VIAL IVPUSH ONE (14:56)
[2018-04-17] MEDS ORDERED: ALBUTEROL SO4 2.5/IPRATROPIUM 0.5 INH SOL 3 ML VIAL.NEB. NEB ONE (17:57)
--- NOTE | 2018-04-17 20:28 | PN ---
Physical Exam: SUBJECTIVE: Patient seen and examined at bedside. Patient says her SOB has improved since admission yesterday. Admits to using 2L NC at home Denies fevers, chills, Chest pain, cough, nausea, vomiting. OBJECTIVE: Vital Signs Period Temp Pulse Resp BP Sys/Garza Pulse Ox Last 24 Hr 97.6 F-98.9 F 80-95 20-24 125-146/52-96 93-99 Vital Signs Temp 98.1 F 04/17/18 17:00 Pulse 84 04/17/18 17:00 Resp 20 04/17/18 17:00 BP 125/52 04/17/18 17:00 Pulse Ox 93 L 04/17/18 09:00 Intake & Output 04/16/18 04/17/18 04/17/18 23:59 11:59 23:59 Intake Total 260 260 550 Output Total 1 Balance 260 260 549 Weight 83.915 kg 83.37 kg Intake: IV 10 10 10 saline lock 10 10 10 Oral 250 250 540 Output: Urine 1 Void 1 Other: Voiding Method Bedpan Bedpan Toilet # Unmeasured Voids Void 1 1 1 Bowel Movement No No No Height 1.6 m Body Mass Index (BMI) 32.8 Weight Measurement Method Estimated by Patient Standing Scale Weight Measurement Method Est/Stated by Patient GENERAL: The patient is awake, alert, and fully oriented, in no acute distress. LUNGS: Breath sounds equal, Wheezing heard throughout with crackles at bases bilaterally HEART: Regular rate and rhythm, S1, S2 without murmur, rub or gallop. ABDOMEN: Soft, nontender, nondistended, normoactive bowel sounds EXTREMITIES: 2+ pitting edema in lower extremities bilaterally Laboratory Results - last 24 hr 04/16/18 04/16/18 04/16/18 19:43 19:43 19:43 Hypochromia 3+ Platelet Estimate Adequate Platelet Comment No clumping noted Anisocytosis 2+ Microcytosis 1+ Macrocytosis 1+ Target Cells 1+ Sodium 142 Potassium 3.8 Chloride 101 Carbon Dioxide 38 H Anion Gap 3 L BUN 7 Creatinine 0.8 Creat Clearance w eGFR > 60 POC Glucometer Random Glucose 98 Calcium 9.3 Total Bilirubin 0.7 AST 17 ALT 18 Alkaline Phosphatase 83 Creatine Kinase 73 Troponin I 0.03 B-Natriuretic Peptide 3098.51 H Total Protein 7.3 Albumin 3.6 Urine Color Urine Appearance Urine pH Ur Specific [place] Urine Protein Urine Glucose (UA) Urine Ketones Urine Blood Urine Nitrite Urine Bilirubin Urine Urobilinogen Ur Leukocyte Esterase Urine WBC (Auto) Urine RBC (Auto) Ur Epithelial Cells Urine Bacteria Urine Mucus 04/16/18 04/17/18 22:20 05:21 Hypochromia Platelet Estimate Platelet Comment Anisocytosis Microcytosis Macrocytosis Target Cells Sodium Potassium Chloride Carbon Dioxide Anion Gap BUN Creatinine Creat Clearance w eGFR POC Glucometer 177 Random Glucose Calcium Total Bilirubin AST ALT Alkaline Phosphatase Creatine Kinase Troponin I B-Natriuretic Peptide Total Protein Albumin Urine Color Yellow Urine Appearance Slcloudy Urine pH 6.0 Ur Specific [place] 1.013 Urine Protein 1+ H Urine Glucose (UA) Negative Urine Ketones Negative Urine Blood Negative Urine Nitrite Negative Urine Bilirubin Negative Urine Urobilinogen 2.0 H Ur Leukocyte Esterase 1+ H Urine WBC (Auto) 3 Urine RBC (Auto) 3 Ur Epithelial Cells Few Urine Bacteria Rare Urine Mucus Rare Active Medications Albuterol/Ipratropium (Duoneb -) 1 amp NEB RQID [facility] Last Admin: 04/17/18 16:05 Dose: 1 amp Apixaban (Eliquis -) 5 mg PO BID [facility] Last Admin: 04/17/18 10:41 Dose: 5 mg Atenolol (Tenormin -) 25 mg PO DAILY [facility] Last Admin: 04/17/18 10:41 Dose: 25 mg Atorvastatin Calcium (Lipitor -) 20 mg PO [facility] Ferrous Sulfate (Feosol -) 325 mg PO DAILY [facility] Last Admin: 04/17/18 10:40 Dose: 325 mg Furosemide (Lasix Injection -) 40 mg IVPUSH BID@0600,1400 [facility] Last Admin: 04/17/18 13:58 Dose: 40 mg Nifedipine (Procardia Xl -) 90 mg PO DAILY [facility] Last Admin: 04/17/18 10:41 Dose: 90 mg Fluticasone/Salmeterol (Advair 100mcg/50mcg -) 1 puff IH BID [facility] Last Admin: 04/17/18 10:41 Dose: 1 puff ASSESSMENT/PLAN: 87 y/o F with PMHx of Afib, COPD, Diastolic CHF, HTN and dyslipidemia who presents to the ER with dyspnea and belly pain was found to be in acute diastolic CHF 1. Acute on Chronic diastolic CHF - Given IV Lasix in ED, remains volume overloaded - Continue with Lasix 40mg IVPB BID - Echo read as per Dr. Simms: LA dilatation with moderate MR, dilated RV and RA and reduced RV function and moderate TR and severe pulmonary HTN - Cardio (Dr. Simms) consulted, appreciate Recommendations. pending D-Dimer in the morning, will consider CTA - strict I&O, daily weights - BMP, Mag and Phos pending tmrw 2. Acute COPD exacerbation - Wheezing present throughout lung exam - Gave 1 dose Salumedrol 40mg - Assess daily to give possible short course of steroids 3. Microcytic anemia - Hgb at baseline - Iron studies pending - Continue Ferrous Sulfate 325 mg PO DAILY 4. Afib - On eliquis 5 mg PO BID at home, Continue - Rate controlled - Continue Atenolol 25 mg PO DAILY LISA - Continue Nifedipine 90 mg PO DAILY 5. HTN - controlled 6. dyslipidemia - Continue Atorvastatin Calcium 20 mg PO HS LISA 7. DVT ppx - Continue Eliquis Visit type - Emergency Visit Emergency Visit: Yes ED Registration Date: 04/16/18 Care time: The patient presented to the Emergency Department on the above date and was hospitalized for further evaluation of their emergent condition. - New Patient This patient is new to me today: Yes Date on this admission: 04/17/18 - Critical Care Critical Care patient: No
[2018-04-17] MEDS: ATORVASTATIN CA 20 MG TABLET (FP) PO SCH (22:40)
[2018-04-18] MEDS: FUROSEMIDE 40 MG/4 ML INJECTABLE VIAL IVPUSH SCH ×2 (06:16→13:58)
[2018-04-18 07:57] LABS: CHLORIDE 97 mmol/L (98-107); POTASSIUM 4.6 mmol/L (3.5-5.1); SODIUM 142 mmol/L (136-145)
[2018-04-18] MEDS: ALBUTEROL SO4 2.5/IPRATROPIUM 0.5 INH SOL 3 ML VIAL.NEB. NEB SCH ×4 (08:05→19:43)
[2018-04-18 08:09] LABS: ANION GAP 6 (8-16); BLOOD UREA NITROGEN 17 mg/dL (7-18); CALCIUM 9.1 mg/dL (8.5-10.1); CO2 39 mmol/L (21-32); CREATININE 0.9 mg/dL (0.55-1.02); GLUCOSE,RANDOM 118 mg/dL (74-106); MAGNESIUM 2.3 mg/dL (1.8-2.4); PHOSPHOROUS 3.9 mg/dL (2.5-4.9)
[2018-04-18] MEDS ORDERED: PT OWN MED DRAWER 7, Y5N ONE (08:56)
[2018-04-18] MEDS: FLUTICASONE/SALMETEROL 100 MCG/50 MCG DISKUS IH SCH ×2 (09:14→22:03)
[2018-04-18] MEDS: FERROUS SO4 325 MG TABLET (FP) PO SCH (09:15)
[2018-04-18] MEDS: APIXABAN 5 MG TABLET PO SCH ×2 (09:15→22:03)
[2018-04-18] MEDS: NIFEdipine E.R. 90 MG TABLET (FP) PO SCH (09:15)
[2018-04-18] MEDS: ATENOLOL 25 MG TABLET (FP) PO SCH (09:15)
[2018-04-18 09:46] LABS: HEMATOCRIT 34.8 % (32.4-45.2); HEMOGLOBIN 10.2 GM/dL (10.7-15.3); MCH 20.4 pg (25.7-33.7); MCHC 29.3 g/dl (32.0-36.0); MEAN CELL VOLUME 69.6 fl (80-96); MEAN PLT VOLUME 9.5 fl (7.5-11.1); PLATELET COUNT 130 K/MM3 (134-434); RBC 5.01 M/mm3 (3.60-5.2); RDW 19.5 % (11.6-15.6); WHITE BLOOD COUNT 4.2 K/mm3 (4.0-10.0)
--- NOTE | 2018-04-18 09:53 | PN ---
Progress Note, Physician Chief Complaint: Events noted Still dyspneic History of Present Illness: Patient was seen and examined. Awake and alert. Chart was reviewed Denies chest pain, but persistently dyspneic. Periods of tachycardia Echocardiography last year also reveals dilated RA and pulmonary HTN - Current Medication List Current Medications: Active Medications Albuterol/Ipratropium (Duoneb -) 1 amp NEB RQID [facility] Last Admin: 04/18/18 08:05 Dose: 1 amp Apixaban (Eliquis -) 5 mg PO BID [facility] Last Admin: 04/18/18 09:15 Dose: 5 mg Atenolol (Tenormin -) 25 mg PO DAILY [facility] Last Admin: 04/18/18 09:15 Dose: 25 mg Atorvastatin Calcium (Lipitor -) 20 mg PO HS [facility] Last Admin: 04/17/18 22:40 Dose: Not Given Ferrous Sulfate (Feosol -) 325 mg PO DAILY [facility] Last Admin: 04/18/18 09:15 Dose: 325 mg Furosemide (Lasix Injection -) 40 mg IVPUSH BID@0600,1400 [facility] Last Admin: 04/18/18 06:16 Dose: 40 mg Nifedipine (Procardia Xl -) 90 mg PO DAILY [facility] Last Admin: 04/18/18 09:15 Dose: 90 mg Fluticasone/Salmeterol (Advair 100mcg/50mcg -) 1 puff IH BID [facility] Last Admin: 04/18/18 09:14 Dose: 1 puff - Objective Vital Signs: Vital Signs Temperature 98.2 F 04/18/18 07:28 Pulse Rate 103 H 04/18/18 07:28 Respiratory Rate 18 04/18/18 07:30 Blood Pressure 124/71 04/18/18 07:28 O2 Sat by Pulse Oximetry (%) 96 04/18/18 07:30 Eyes: Yes: PERRL HENT: Yes: Atraumatic Neck: Yes: Supple Cardiovascular: Yes: Tachycardia, Pulse Irregular, S1, S2 Respiratory: Yes: Diminished, Rhonchi Gastrointestinal: Yes: Normal Bowel Sounds, Soft. No: Tenderness Edema: No Additional Findings/Remarks: - Review of Systems Constitutional: denies: Chills, Fever Cardiovascular: reports: Shortness of Breath. denies: Chest Pain, Palpitations Respiratory: reports: Cough, SOB, SOB on Exertion. denies: Hemoptysis, PND Gastrointestinal: denies: Abdominal Pain, Constipation, Diarrhea, Melena, Nausea , Rectal Bleeding, Vomiting Genitourinary: denies: Dysuria, Hematuria Musculoskeletal: reports: Joint Pain Neurological: denies: Dizziness, Headache, Seizure, Syncope Labs: CBC, BMP 04/18/18 06:15 Problem List - Problems (1) CHF (congestive heart failure) Code(s): I50.9 - HEART FAILURE, UNSPECIFIED Qualifiers: Heart failure type: systolic Heart failure chronicity: acute Qualified Code(s): I50.21 - Acute systolic (congestive) heart failure (2) Acute exacerbation of chronic obstructive pulmonary disease Code(s): J44.1 - CHRONIC OBSTRUCTIVE PULMONARY DISEASE W (ACUTE) EXACERBATION (3) COPD (chronic obstructive pulmonary disease) Code(s): J44.9 - CHRONIC OBSTRUCTIVE PULMONARY DISEASE, UNSPECIFIED Qualifiers: Chronic bronchitis type: unspecified (4) Chronic respiratory failure with hypoxia Code(s): J96.11 - CHRONIC RESPIRATORY FAILURE WITH HYPOXIA (5) Coronary artery disease Code(s): I25.10 - ATHSCL HEART DISEASE OF [place] CORONARY ARTERY W/O ANG PCTRS Qualifiers: Coronary Disease-Associated Artery/Lesion type: [place] artery [place] vs. transplanted heart: [place] heart Associated angina: without angina Qualified Code(s): I25.10 - Atherosclerotic heart disease of [place] coronary artery without angina pectoris (6) Hypertension Code(s): I10 - ESSENTIAL (PRIMARY) HYPERTENSION Qualifiers: Hypertension type: essential hypertension Qualified Code(s): I10 - Essential (primary) hypertension (7) Sarcoidosis Code(s): D86.9 - SARCOIDOSIS, UNSPECIFIED (8) Shortness of breath Code(s): R06.02 - SHORTNESS OF BREATH (9) Atrial fibrillation Code(s): I48.91 - UNSPECIFIED ATRIAL FIBRILLATION Qualifiers: Atrial fibrillation type: permanent Qualified Code(s): I48.2 - Chronic atrial fibrillation (10) Hypercholesterolemia Code(s): E78.00 - PURE HYPERCHOLESTEROLEMIA, UNSPECIFIED Assessment/Plan 1. Dyspnea with echocardiographic evidence of RA and RV dilation, moderate TR and severe pulmonary HTN, rule out pulmonary thromboembolic disease, but presentation likely due to underlying chronic interstitial/inflammatory lung disease 2. Elevated BNP suggests LV failure, acute on chronic diastolic failure 3. Permanent AF on NOAC 4. HTN 5. History of sarcoidosis 6. Underlying COPD 7. Hypercholesterolemia 8. Anemia PLAN: 1. Trend troponin - currently negative 2. Consider CT chest with contrast to rule out PE. D-dimer elevated 3. Continue Eliquis for now but further plans to follow 4. Consider Pulmonary consultation for evaluation and follow up of chronic lung disease and sarcoidosis 5. Continue Tenormin and Procardia XL as tolerated 6. Diuretics 7. Transthoracic echocardiography as outlined and when compared to study in 2017 , PASP appears to have significantly increased 8. Consider steroids. Continue bronchodilators Further plans are to follow. Dr. Mendez is to resume care Farhan Simms MD
[2018-04-18 10:13] LABS: ALBUMIN 3.7 g/dl (3.4-5.0); SGOT/AST 15 U/L (15-37); SGPT/ALT 18 U/L (12-78)
[2018-04-18 10:14] LABS: ALK PHOS 72 U/L (45-117); BILIRUBIN,TOTAL 0.6 mg/dL (0.2-1.0); TOT PROT 7.1 g/dl (6.4-8.2)
[2018-04-18 11:18] LABS: ANISOCYTOSIS 2+; PLATELET ESTIMATE DECREASED
--- NOTE | 2018-04-18 11:43 | PN ---
Progress Note (short form) - Note Progress Note: PULMONARY CONSULTATION DICTATED 04/18/18 IMP ACUTE ON CHRONIC HYPOXEMIC RESPIRATORY FAILURE SEVERE PULMONARY HTN ? COPD O2 DEPENDENT CHF SARCOIDOSIS AFIB PLAN IV STEROIDS 02 AC INHALED BRONCHODILATORS LASIX DAILY WT SLEEP SCREEN ABG DR ALBERT Problem List - Problems (1) Acute and chronic respiratory failure with hypercapnia Code(s): J96.22 - ACUTE AND CHRONIC RESPIRATORY FAILURE WITH HYPERCAPNIA (2) Atrial fibrillation Code(s): I48.91 - UNSPECIFIED ATRIAL FIBRILLATION Qualifiers: Atrial fibrillation type: permanent Qualified Code(s): I48.2 - Chronic atrial fibrillation (3) CHF (congestive heart failure) Code(s): I50.9 - HEART FAILURE, UNSPECIFIED Qualifiers: Heart failure type: systolic Heart failure chronicity: acute Qualified Code(s): I50.21 - Acute systolic (congestive) heart failure (4) Hypercholesterolemia Code(s): E78.00 - PURE HYPERCHOLESTEROLEMIA, UNSPECIFIED (5) Acute exacerbation of chronic obstructive pulmonary disease Code(s): J44.1 - CHRONIC OBSTRUCTIVE PULMONARY DISEASE W (ACUTE) EXACERBATION (6) Chest tightness Code(s): R07.89 - OTHER CHEST PAIN (7) Hypertension Code(s): I10 - ESSENTIAL (PRIMARY) HYPERTENSION Qualifiers: Hypertension type: essential hypertension Qualified Code(s): I10 - Essential (primary) hypertension (8) Sarcoidosis Code(s): D86.9 - SARCOIDOSIS, UNSPECIFIED (9) Shortness of breath Code(s): R06.02 - SHORTNESS OF BREATH (10) Pulmonary HTN Code(s): I27.20 - PULMONARY HYPERTENSION, UNSPECIFIED
[2018-04-18] MEDS: methylPREDNISolone NA SUCC 40 MG/1 ML VIAL IVPUSH SCH ×2 (11:58→17:58)
[2018-04-18 12:26] LABS: ARTERIAL BLD GAS O2 SATURATION 94.3 % (90-98.9); ARTERIAL BLOOD GAS BASE EXCESS 10.8 meq/l (-2-2); ARTERIAL BLOOD GAS PCO2 59.1 mmHg (35-45); ARTERIAL BLOOD GAS PO2 73.5 mmHg (68-100); ARTERIAL BLOOD GAS pH 7.41 (7.35-7.45)
[2018-04-18 12:28] LABS: ALLENS TEST POSITIVE
--- NOTE | 2018-04-18 13:52 | CONS ---
PULMONARY CONSULTATION DATE OF CONSULTATION: 04/18/2018 REFERRING PHYSICIAN: Emanuel Fitzgerald MD The patient is an 87-year-old black female with a past medical history of sarcoidosis diagnosed in 1965, questionable COPD, congestive heart failure, hypertension, hyperlipidemia, arthritis, iliac stent , a nonsmoker, admitted to [facility] on April 16 with complaints of increasing shortness of breath and dyspnea on exertion. The patient also has a history of atrial fibrillation, maintained on NOAC. She is also maintained on home oxygen therapy. The patient currently resides at [facility] [place]. Apparently, over the past few days, she started developing increasing shortness of breath, dyspnea on exertion and chest tightness. She denied any nausea, vomiting or diaphoresis. Denied any chest pains or palpitations. Denies any fevers or chills. Denied any chronic cough or hemoptysis. She presented to the emergency room with the above. On admission, she underwent an echocardiogram which revealed evidence of increasing right pulmonary artery pressure as well as RV dysfunction. She underwent a CTA of the chest earlier today which revealed no evidence of pulmonary emboli. The patient , as stated before, is a nonsmoker. She denies any history of occupational exposure to chemicals or fumes. She has been on home oxygen therapy for a couple of years. As stated before, she has a history of sarcoidosis diagnosed in 1965. PAST MEDICAL HISTORY: Again, this includes atrial fibrillation on NOAC, hypertension, hypercholesterolemia, questionable COPD, sarcoidosis, anemia, pulmonary hypertension. REVIEW OF SYSTEMS: No orthopnea. No PND. Positive chest tightness. Positive dyspnea on exertion. Positive dry cough. No hemoptysis. No abdominal pain. No particular lower extremity edema. CURRENT MEDICATIONS: Solu-Medrol 40 q.8, Advair, Eliquis, DuoNeb, Tenormin, Procardia, Lipitor, Feosol and Lasix. PHYSICAL EXAMINATION: General: The patient is an elderly black female, well developed, awake, alert, in no acute distress. Vital Signs: She is afebrile. Heart rate is 103. Blood pressure is 124/71, respiratory rate is 18, and O2 saturation is 96% on room air. HEENT: Normocephalic, atraumatic. Neck: Supple. Heart: Irregular, irregular. S1, S2. Chest: Bilateral basilar crackles. Abdomen: Soft. Bowel sounds are positive. Extremities: Trace bilateral extremity edema. LABORATORY DATA: INR is 1.97. WBC is 4.2, hemoglobin 10.2, hematocrit 34.8, with a platelet count of 130,000. BUN 17, creatinine 0.9. BNP is 3908. Chest x-ray shows cardiomegaly and mild pulmonary vascular congestion. Chest CT reveals no evidence of pulmonary embolism. It revealed increased markings bilaterally at the bases, mild interstitial edema as well as some bronchiectatic changes. IMPRESSION: [id number] hypoxemic respiratory failure secondary to: 1. Likely mild decompensated congestive heart failure. 2. Sarcoidosis. 3. Severe pulmonary hypertension. 4. Atrial fibrillation. 5. Questionable chronic obstructive pulmonary disease on oxygen; oxygen dependent. PLAN: Continue Lasix, inhaled bronchodilators, steroids, supplemental O2. Maintain O2 saturations greater than 90%. Check arterial blood gas. Also, consider a sleep screen to see if patient has a component of obstructive sleep apnea which may be contributing to her pulmonary hypertension. Daily weights,PFTs outpatient Donnell [id number] MTDD
[2018-04-18] MEDS ORDERED: ALBUTEROL SO4 2.5/IPRATROPIUM 0.5 INH SOL 3 ML VIAL.NEB. NEB SCH (18:00)
[2018-04-18] MEDS ORDERED: ALBUTEROL SO4 2.5/IPRATROPIUM 0.5 INH SOL 3 ML VIAL.NEB. NEB PRN ×2 (18:01→18:03)
--- NOTE | 2018-04-18 18:57 | PN ---
Teaching Attending Note Name of Resident: Ade Weeks ATTENDING PHYSICIAN STATEMENT I saw and evaluated the patient. I reviewed the resident's note and discussed the case with the resident. I agree with the resident's findings and plan as documented with exceptions below. SUBJECTIVE: Patient seen and examined. Still with dyspnea, chest tightness, not much improvement. OBJECTIVE: Vital Signs Period Temp Pulse Resp BP Sys/Garza Pulse Ox Last 24 Hr 97.4 F-98.4 F 63-105 18-22 119-127/68-95 94-96 Intake & Output 04/15/18 04/16/18 04/17/18 04/18/18 23:59 23:59 23:59 23:59 Intake Total 260 1000 570 Output Total 1 Balance 260 999 570 Weight 185 lb 183 lb 12.8 oz 183 lb 8 oz General: sitting in chair, mild tightness with breathing and mild tachypnea, able to talk in full sentences Chest: Decreased air entry, expiratory wheezing bilaterally Extremities; 1+ non pitting edema Abdomen:soft, NT Home Medications Medication Instructions Recorded Albuterol 2.5/Ipratropium 0.5 1 neb IH QID 04/16/18 [Duoneb -] Apixaban [Eliquis] 5 mg PO BID 04/16/18 Atorvastatin Ca [Lipitor] 20 mg PO HS 04/16/18 Escitalopram Oxalate [Lexapro -] 20 mg PO DAILY 04/16/18 Folic Acid 1 mg PO DAILY 04/16/18 Furosemide [Lasix] 40 mg PO DAILY 04/16/18 Atenolol [Tenormin -] DAILY 04/17/18 Fluticasone/Salmeterol [Airduo BID 04/17/18 Respiclick 232-14 Mcg] Ipratropium Elvaston [Atrovent Hfa] 04/17/18 Nifedipine [Nifedipine ER] 04/17/18 Sennosides/Docusate Sodium 04/17/18 [Docusate Sodium-Senna Tablet] Active Medications Albuterol/Ipratropium (Duoneb -) 1 amp NEB Q3H PRN PRN Reason: SHORTNESS OF BREATH Albuterol/Ipratropium (Duoneb -) 1 amp NEB RQID [facility] Apixaban (Eliquis -) 5 mg PO BID [facility] Last Admin: 04/18/18 09:15 Dose: 5 mg Atenolol (Tenormin -) 25 mg PO DAILY [facility] Last Admin: 04/18/18 09:15 Dose: 25 mg Atorvastatin Calcium (Lipitor -) 20 mg PO HS [facility] Last Admin: 04/17/18 22:40 Dose: Not Given Ferrous Sulfate (Feosol -) 325 mg PO DAILY [facility] Last Admin: 04/18/18 09:15 Dose: 325 mg Furosemide (Lasix Injection -) 40 mg IVPUSH BID@0600,1400 [facility] Last Admin: 04/18/18 13:58 Dose: 40 mg Methylprednisolone Sodium Succinate (Solu-Medrol -) 40 mg IVPUSH Q8H-IV [facility] Last Admin: 04/18/18 17:58 Dose: 40 mg Nifedipine (Procardia Xl -) 90 mg PO DAILY [facility] Last Admin: 04/18/18 09:15 Dose: 90 mg Fluticasone/Salmeterol (Advair 100mcg/50mcg -) 1 puff IH BID [facility] Last Admin: 04/18/18 09:14 Dose: 1 puff Laboratory Results - last 24 hr 04/18/1818 18 06:15 06:15 06:15 WBC 4.2 RBC 5.01 Hgb 10.2 L Hct 34.8 MCV 69.6 L MCH 20.4 L MCHC 29.3 L RDW 19.5 H Plt Count 130 L MPV 9.5 Absolute Neuts (auto) 2.6 Neutrophils % No Result Required. Neutrophils % (Manual) 66.3 Band Neutrophils % 0.0 Lymphocytes % No Result Required. Lymphocytes % (Manual) 23.5 Monocytes % (Manual) 10 Eosinophils % (Manual) 0.0 Basophils % (Manual) 0.0 Myelocytes % (Man) 0 Promyelocytes % (Man) 0 Blast Cells % (Manual) 0 Nucleated RBC % 1 H Metamyelocytes 0 Hypochromia 2+ Platelet Estimate Decreased Poikilocytosis 1+ Anisocytosis 2+ Microcytosis 2+ D-Dimer 617 H Puncture Site ABG pH ABG pCO2 at Pt Temp ABG pO2 at Pt Temp ABG HCO3 ABG O2 Sat (Measured) ABG O2 Content ABG Base Excess Junior Test Oxygen Flow Rate Sodium 142 Potassium 4.6 Chloride 97 L Carbon Dioxide 39 H Anion Gap 6 L BUN 17 Creatinine 0.9 Creat Clearance w eGFR 59.09 Random Glucose 118 H Calcium 9.1 Phosphorus 3.9 Magnesium 2.3 Ferritin 77.7 Total Bilirubin 0.6 AST 15 ALT 18 Alkaline Phosphatase 72 D Total Protein 7.1 Albumin 3.7 04/18/18 04/18/18 06:15 12:25 WBC RBC Hgb Hct MCV MCH MCHC RDW Plt Count MPV Absolute Neuts (auto) Neutrophils % Neutrophils % (Manual) Band Neutrophils % Lymphocytes % Lymphocytes % (Manual) Monocytes % (Manual) Eosinophils % (Manual) Basophils % (Manual) Myelocytes % (Man) Promyelocytes % (Man) Blast Cells % (Manual) Nucleated RBC % Metamyelocytes Hypochromia Platelet Estimate Poikilocytosis Anisocytosis Microcytosis D-Dimer Puncture Site Right radial ABG pH 7.41 ABG pCO2 at Pt Temp 59.1 H ABG pO2 at Pt Temp 73.5 D ABG HCO3 36.9 H ABG O2 Sat (Measured) 94.3 ABG O2 Content 13.6 L ABG Base Excess 10.8 H Junior Test Positive Oxygen Flow Rate Yes Sodium Cancelled Potassium Cancelled Chloride Cancelled Carbon Dioxide Cancelled Anion Gap Cancelled BUN Cancelled Creatinine Cancelled Creat Clearance w eGFR Cancelled Random Glucose Cancelled Calcium Cancelled Phosphorus Magnesium Ferritin Total Bilirubin Cancelled AST Cancelled ALT Cancelled Alkaline Phosphatase Cancelled Total Protein Cancelled Albumin Cancelled CT chest results reviewed Microbiology 04/16/18 22:20 Urine - Urine Clean Catch Urine Culture - Final Contaminated: Please Repeat 04/16/18 20:14 Blood - Peripheral Venous Blood Culture - Preliminary NO GROWTH OBTAINED AFTER 24 HOURS, INCUBATION TO CONTINUE FOR 4 DAYS. 04/16/18 19:43 Blood - Peripheral Venous Blood Culture - Preliminary NO GROWTH OBTAINED AFTER 24 HOURS, INCUBATION TO CONTINUE FOR 4 DAYS. ASSESSMENT AND PLAN: 87yo F with PMH afib on eliquis, COPD on home O2, diastolic CHF, HTN and dyslipidemia presented to the ER with dyspnea and belly pain and was found ot be in acute diastolic CHF. -Acute COPD exacerbation -Acute on chronic diastolic HF exacerbation -Severe pulmonary HTN, likely with cor pulmonale -Microcytic anemia -Afib on eliquis -HTN -HLD Plan: Start solumedrol 40 mg IV q8h, standing and prn nebs. Pulmonary COnsult. Cardiology input noted. CT chest noted COntinue IV lasix with Strict I/Os. Hb at baseline. Continue eliquis Continue atenolol/nifedipine/statin. COntinue eliquis. Dispo pending clinical improvement, likely in 2-3 days if improve on IV steroids /diuresis. Plan discussed with patient in detail, all questions answered.
--- NOTE | 2018-04-18 20:02 | PN ---
Physical Exam: SUBJECTIVE: Patient seen and examined at bedside. As per nursing, patient refused her medications last night. Patient says she "Just didnt want them." Patient still feels SOB and complains of heaviness in her chest when she is not on oxygen. Denies fevers, chills, Chest pain, cough, nausea, vomiting. OBJECTIVE: Vital Signs Period Temp Pulse Resp BP Sys/Garza Pulse Ox Last 24 Hr 97.4 F-98.4 F 63-105 18-22 119-131/68-95 94-96 Vital Signs Temp 98.0 F 04/18/18 17:00 Pulse 93 H 04/18/18 17:00 Resp 20 04/18/18 17:00 BP 131/87 04/18/18 17:00 Pulse Ox 96 04/18/18 07:30 Intake & Output 04/17/18 04/18/18 04/18/18 23:59 11:59 23:59 Intake Total 740 320 450 Output Total 1 Balance 739 320 450 Weight 83.234 kg Intake: IV 20 20 10 saline lock 20 20 10 Oral 720 300 440 Output: Urine 1 Void 1 Other: Voiding Method Toilet Bedside Commode Bedside Commode # Unmeasured Voids Void 1 2 2 Bowel Movement No Yes Weight Measurement Method Standing Scale GENERAL: The patient is awake, alert, and fully oriented, in no acute distress. LUNGS: Breath sounds equal, Expiratory wheezes present HEART: Regular rate and rhythm, S1, S2 without murmur, rub or gallop. ABDOMEN: Soft, nontender, nondistended, normoactive bowel sounds EXTREMITIES: 2+ pitting edema in lower extremities bilaterally Laboratory Results - last 24 hr 04/18/18 04/18/18 04/18/18 06:15 06:15 06:15 WBC 4.2 RBC 5.01 Hgb 10.2 L Hct 34.8 MCV 69.6 L MCH 20.4 L MCHC 29.3 L RDW 19.5 H Plt Count 130 L MPV 9.5 Absolute Neuts (auto) 2.6 Neutrophils % No Result Required. Neutrophils % (Manual) 66.3 Band Neutrophils % 0.0 Lymphocytes % No Result Required. Lymphocytes % (Manual) 23.5 Monocytes % (Manual) 10 Eosinophils % (Manual) 0.0 Basophils % (Manual) 0.0 Myelocytes % (Man) 0 Promyelocytes % (Man) 0 Blast Cells % (Manual) 0 Nucleated RBC % 1 H Metamyelocytes 0 Hypochromia 2+ Platelet Estimate Decreased Poikilocytosis 1+ Anisocytosis 2+ Microcytosis 2+ D-Dimer 617 H Puncture Site ABG pH ABG pCO2 at Pt Temp ABG pO2 at Pt Temp ABG HCO3 ABG O2 Sat (Measured) ABG O2 Content ABG Base Excess Junior Test Oxygen Flow Rate Sodium 142 Potassium 4.6 Chloride 97 L Carbon Dioxide 39 H Anion Gap 6 L BUN 17 Creatinine 0.9 Creat Clearance w eGFR 59.09 Random Glucose 118 H Calcium 9.1 Phosphorus 3.9 Magnesium 2.3 Ferritin 77.7 Total Bilirubin 0.6 AST 15 ALT 18 Alkaline Phosphatase 72 D Total Protein 7.1 Albumin 3.7 04/18/18 04/18/18 06:15 12:25 WBC RBC Hgb Hct MCV MCH MCHC RDW Plt Count MPV Absolute Neuts (auto) Neutrophils % Neutrophils % (Manual) Band Neutrophils % Lymphocytes % Lymphocytes % (Manual) Monocytes % (Manual) Eosinophils % (Manual) Basophils % (Manual) Myelocytes % (Man) Promyelocytes % (Man) Blast Cells % (Manual) Nucleated RBC % Metamyelocytes Hypochromia Platelet Estimate Poikilocytosis Anisocytosis Microcytosis D-Dimer Puncture Site Right radial ABG pH 7.41 ABG pCO2 at Pt Temp 59.1 H ABG pO2 at Pt Temp 73.5 D ABG HCO3 36.9 H ABG O2 Sat (Measured) 94.3 ABG O2 Content 13.6 L ABG Base Excess 10.8 H Junior Test Positive Oxygen Flow Rate Yes Sodium Cancelled Potassium Cancelled Chloride Cancelled Carbon Dioxide Cancelled Anion Gap Cancelled BUN Cancelled Creatinine Cancelled Creat Clearance w eGFR Cancelled Random Glucose Cancelled Calcium Cancelled Phosphorus Magnesium Ferritin Total Bilirubin Cancelled AST Cancelled ALT Cancelled Alkaline Phosphatase Cancelled Total Protein Cancelled Albumin Cancelled Active Medications Albuterol/Ipratropium (Duoneb -) 1 amp NEB Q3H PRN PRN Reason: SHORTNESS OF BREATH Albuterol/Ipratropium (Duoneb -) 1 amp NEB RQID [facility] Last Admin: 04/18/18 19:43 Dose: 1 amp Apixaban (Eliquis -) 5 mg PO BID [facility] Last Admin: 04/18/18 09:15 Dose: 5 mg Atenolol (Tenormin -) 25 mg PO DAILY [facility] Last Admin: 04/18/18 09:15 Dose: 25 mg Atorvastatin Calcium (Lipitor -) 20 mg PO HS [facility] Last Admin: 04/17/18 22:40 Dose: Not Given Ferrous Sulfate (Feosol -) 325 mg PO DAILY [facility] Last Admin: 04/18/18 09:15 Dose: 325 mg Furosemide (Lasix Injection -) 40 mg IVPUSH BID@0600,1400 [facility] Last Admin: 04/18/18 13:58 Dose: 40 mg Methylprednisolone Sodium Succinate (Solu-Medrol -) 40 mg IVPUSH Q8H-IV [facility] Last Admin: 04/18/18 17:58 Dose: 40 mg Nifedipine (Procardia Xl -) 90 mg PO DAILY [facility] Last Admin: 04/18/18 09:15 Dose: 90 mg Fluticasone/Salmeterol (Advair 100mcg/50mcg -) 1 puff IH BID [facility] Last Admin: 04/18/18 09:14 Dose: 1 puff ASSESSMENT/PLAN: 87 y/o F with PMHx of Afib, COPD, Diastolic CHF, HTN and dyslipidemia who presents to the ER with dyspnea and belly pain was found to be in acute diastolic CHF 1. Acute on Chronic diastolic CHF - Given IV Lasix in ED, remains volume overloaded - Continue with Lasix 40mg IVPB BID - Echo read as per Dr. Simms: LA dilatation with moderate MR, dilated RV and RA and reduced RV function and moderate TR and severe pulmonary HTN - Cardio (Dr. Simms) consulted, appreciate Recommendations. D-Dimer elevated this morning - CT Chest: No CT evidence of pulmonary embolism. - strict I&O, daily weights - BMP, Mag and Phos pending tmrw 2. Acute COPD exacerbation - Wheezing present throughout lung exam - Gave 1 dose Salumedrol 40mg - Started on Solu-Medrol 40 mg IVPUSH Q8H-IV [facility] - Started on Duoneb - Pulmonology (Dr. Nicole) consulted, appreciate recommendations 3. Microcytic anemia - Hgb at baseline - Iron studies pending - Continue Ferrous Sulfate 325 mg PO DAILY 4. Afib - On eliquis 5 mg PO BID at home, Continue - Rate controlled - Continue Atenolol 25 mg PO DAILY [facility] - Continue Nifedipine 90 mg PO DAILY 5. HTN - controlled 6. dyslipidemia - Continue Atorvastatin Calcium 20 mg PO HS [facility] 7. DVT ppx - Continue Eliquis Visit type - Emergency Visit Emergency Visit: No - New Patient This patient is new to me today: No - Critical Care Critical Care patient: No
[2018-04-18] MEDS: ATORVASTATIN CA 20 MG TABLET (FP) PO SCH (22:03)
[2018-04-19] MEDS: methylPREDNISolone NA SUCC 40 MG/1 ML VIAL IVPUSH SCH ×3 (01:37→17:00)
[2018-04-19] MEDS: MELATONIN 1 MG TABLET PO SCH ×2 (02:23→22:22)
[2018-04-19] MEDS ORDERED: PT OWN MED DRAWER 7, Y5N ONE ×4 (02:31→23:18)
[2018-04-19] MEDS: FUROSEMIDE 40 MG/4 ML INJECTABLE VIAL IVPUSH SCH (06:26)
[2018-04-19 06:37] LABS: HEMATOCRIT 35.7 % (32.4-45.2); HEMOGLOBIN 10.9 GM/dL (10.7-15.3); MCH 20.6 pg (25.7-33.7); MCHC 30.4 g/dl (32.0-36.0); MEAN CELL VOLUME 67.8 fl (80-96); MEAN PLT VOLUME 9.1 fl (7.5-11.1); PLATELET COUNT 156 K/MM3 (134-434); RBC 5.26 M/mm3 (3.60-5.2); RDW 19.2 % (11.6-15.6); WHITE BLOOD COUNT 4.3 K/mm3 (4.0-10.0)
[2018-04-19 07:09] LABS: ANION GAP 10 (8-16); BLOOD UREA NITROGEN 25 mg/dL (7-18); CALCIUM 9.1 mg/dL (8.5-10.1); CHLORIDE 93 mmol/L (98-107); CO2 35 mmol/L (21-32); GLUCOSE,RANDOM 130 mg/dL (74-106); MAGNESIUM 2.3 mg/dL (1.8-2.4); POTASSIUM 3.5 mmol/L (3.5-5.1); SODIUM 138 mmol/L (136-145)
[2018-04-19 07:12] LABS: CREATININE 1.2 mg/dL (0.55-1.02); PHOSPHOROUS 3.9 mg/dL (2.5-4.9)
[2018-04-19] MEDS: ALBUTEROL SO4 2.5/IPRATROPIUM 0.5 INH SOL 3 ML VIAL.NEB. NEB SCH ×4 (08:00→20:40)
[2018-04-19 08:08] LABS: TRANSFERRIN 243 mg/dL (200-370)
--- NOTE | 2018-04-19 08:13 | PN ---
Progress Note, Physician Chief Complaint: sob History of Present Illness: still sob--no better than DOA she says feet/legs swell--chronic no palpitations, syncope no cigs - Current Medication List Current Medications: Active Medications Albuterol/Ipratropium (Duoneb -) 1 amp NEB Q3H PRN PRN Reason: SHORTNESS OF BREATH Albuterol/Ipratropium (Duoneb -) 1 amp NEB RQID [facility] Last Admin: 04/18/18 19:43 Dose: 1 amp Apixaban (Eliquis -) 5 mg PO BID [facility] Last Admin: 04/18/18 22:03 Dose: 5 mg Atenolol (Tenormin -) 25 mg PO DAILY [facility] Last Admin: 04/18/18 09:15 Dose: 25 mg Atorvastatin Calcium (Lipitor -) 20 mg PO [facility] Last Admin: 04/18/18 22:03 Dose: 20 mg Ferrous Sulfate (Feosol -) 325 mg PO DAILY [facility] Last Admin: 04/18/18 09:15 Dose: 325 mg Furosemide (Lasix Injection -) 40 mg IVPUSH BID@0600,1400 [facility] Last Admin: 04/19/18 06:26 Dose: 40 mg Melatonin (Melatonin) 1 mg PO HS [facility] Last Admin: 04/19/18 02:23 Dose: 1 mg Methylprednisolone Sodium Succinate (Solu-Medrol -) 40 mg IVPUSH Q8H-IV [facility] Last Admin: 04/19/18 01:37 Dose: 40 mg Nifedipine (Procardia Xl -) 90 mg PO DAILY [facility] Last Admin: 04/18/18 09:15 Dose: 90 mg Fluticasone/Salmeterol (Advair 100mcg/50mcg -) 1 puff IH BID [facility] Last Admin: 04/18/18 22:03 Dose: 1 puff - Objective Vital Signs: Vital Signs Temperature 98.2 F 04/19/18 07:25 Pulse Rate 87 04/19/18 07:25 Respiratory Rate 18 04/19/18 07:27 Blood Pressure 118/72 04/19/18 07:25 O2 Sat by Pulse Oximetry (%) 96 04/19/18 07:27 Constitutional: Yes: No Distress, Calm Eyes: No: Sclera Icterus HENT: No: Nasal Congestion Cardiovascular: Yes: Regular Rate and Rhythm, JVD (massive, at 90 degrees), S1, S2, Other (PMI non diplaced). No: Gallop, Murmur Respiratory: Yes: CTA Bilaterally. No: Accessory Muscle Use, Rales, Wheezes Gastrointestinal: Yes: Normal Bowel Sounds, Soft. No: Tenderness Musculoskeletal: Yes: Other (No kyphosis) Extremities: No: Cold Edema: Yes (nonpitting ankles/feet) Integumentary: No: Jaundice Neurological: Yes: Alert, Oriented (x3) Psychiatric: No: Agitated Labs: CBC, BMP 04/19/18 05:30 04/19/18 05:30 Assessment/Plan CXR: possible infiltrate vs fluid (with adjacent ATX) L base CT chest: no PE; mild bilat lower lobe mosaic pattern interstitial markings possibly due to mild pulm vascular congestion. mild bilat flank subcutaneous edema slightly worse than prior study. dilated main PA Echo 05/03: nl LVEF. mild RVE, mild-mod RV hypo. L/NEENA. mod MR/TR. RVSP at least 88 mmHg Echo 03/2017: Mild conc lvh. 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 was 179 standing in 03/2017 here. currently 183 lbs, only 1 lb wt decline here. remains very volume overloaded. -bun/creat trending up--? cardiorenal syndrome, ? low output sec to RV failure. -pt noticing good diuretic response to lasix 40 iv bid. will give dose of lasix 80 iv this afternoon (then change to 80mg am, 40mg pm starting 04/20) -reassess wt/exam/bmp in am afib: -cont atenolol for rate control -cont eliquis AC a.e. 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
--- NOTE | 2018-04-19 08:50 | PN ---
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,oob-chair,feeling better,less dyspneic - Current Medication List Current Medications: Active Medications Albuterol/Ipratropium (Duoneb -) 1 amp NEB Q3H PRN PRN Reason: SHORTNESS OF BREATH Albuterol/Ipratropium (Duoneb -) 1 amp NEB RQID [facility] Last Admin: 04/19/18 08:00 Dose: 1 amp Apixaban (Eliquis -) 5 mg PO BID [facility] Last Admin: 04/18/18 22:03 Dose: 5 mg Atenolol (Tenormin -) 25 mg PO DAILY [facility] Last Admin: 04/18/18 09:15 Dose: 25 mg Atorvastatin Calcium (Lipitor -) 20 mg PO [facility] Last Admin: 04/18/18 22:03 Dose: 20 mg Ferrous Sulfate (Feosol -) 325 mg PO DAILY [facility] Last Admin: 04/18/18 09:15 Dose: 325 mg Furosemide (Lasix Injection -) 40 mg IVPUSH BID@0600,1400 [facility] [place] Last Admin: 04/19/18 06:26 Dose: 40 mg Melatonin (Melatonin) 1 mg PO [facility] Last Admin: 04/19/18 02:23 Dose: 1 mg Methylprednisolone Sodium Succinate (Solu-Medrol -) 40 mg IVPUSH Q8H-IV [facility] Last Admin: 04/19/18 01:37 Dose: 40 mg Nifedipine (Procardia Xl -) 90 mg PO DAILY [facility] Last Admin: 04/18/18 09:15 Dose: 90 mg Fluticasone/Salmeterol (Advair 100mcg/50mcg -) 1 puff IH BID [facility] Last Admin: 04/18/18 22:03 Dose: 1 puff - Objective Vital Signs: Vital Signs Temperature 98.2 F 04/19/18 07:25 Pulse Rate 87 04/19/18 07:25 Respiratory Rate 18 04/19/18 07:27 Blood Pressure 118/72 04/19/18 07:25 O2 Sat by Pulse Oximetry (%) 96 04/19/18 07:27 Constitutional: Yes: Well Nourished, Calm Eyes: Yes: WNL HENT: Yes: WNL Neck: Yes: WNL Cardiovascular: Yes: Pulse Irregular, S1, S2 Respiratory: Yes: Rales (bibasailar crackles) Gastrointestinal: Yes: Normal Bowel Sounds, Soft Extremities: Yes: WNL Edema: Yes Labs: CBC, BMP 04/19/18 05:30 04/19/18 05:30 Laboratory Tests 04/18/18 12:25 ABG pH 7.41 ABG pCO2 at Pt Temp 59.1 H ABG pO2 at Pt Temp 73.5 D ABG HCO3 36.9 H ABG O2 Sat (Measured) 94.3 Problem List - Problems (1) Acute and chronic respiratory failure with hypercapnia Code(s): J96.22 - ACUTE AND CHRONIC RESPIRATORY FAILURE WITH HYPERCAPNIA (2) Atrial fibrillation Code(s): I48.91 - UNSPECIFIED ATRIAL FIBRILLATION Qualifiers: Atrial fibrillation type: permanent Qualified Code(s): I48.2 - Chronic atrial fibrillation (3) CHF (congestive heart failure) Code(s): I50.9 - HEART FAILURE, UNSPECIFIED Qualifiers: Heart failure type: systolic Heart failure chronicity: acute Qualified Code(s): I50.21 - Acute systolic (congestive) heart failure (4) Hypercholesterolemia Code(s): E78.00 - PURE HYPERCHOLESTEROLEMIA, UNSPECIFIED (5) Acute exacerbation of chronic obstructive pulmonary disease Code(s): J44.1 - CHRONIC OBSTRUCTIVE PULMONARY DISEASE W (ACUTE) EXACERBATION (6) Chest tightness Code(s): R07.89 - OTHER CHEST PAIN (7) Hypertension Code(s): I10 - ESSENTIAL (PRIMARY) HYPERTENSION Qualifiers: Hypertension type: essential hypertension Qualified Code(s): I10 - Essential (primary) hypertension (8) Sarcoidosis Code(s): D86.9 - SARCOIDOSIS, UNSPECIFIED (9) Shortness of breath Code(s): R06.02 - SHORTNESS OF BREATH (10) Pulmonary HTN Code(s): I27.20 - PULMONARY HYPERTENSION, UNSPECIFIED Assessment/Plan IMP ACUTE ON CHRONIC HYPOXEMIC RESPIRATORY FAILURE SEVERE PULMONARY HTN ? COPD O2 DEPENDENT CHF SARCOIDOSIS AFIB PLAN CONTINUE IV STEROIDS 02 AC INHALED BRONCHODILATORS LASIX DAILY WT SLEEP SCREEN DR ALBERT Problem List - Problems (1) Acute and chronic respiratory failure with hypercapnia Code(s): J96.22 - ACUTE AND CHRONIC RESPIRATORY FAILURE WITH HYPERCAPNIA (2) Atrial fibrillation Code(s): I48.91 - UNSPECIFIED ATRIAL FIBRILLATION Qualifiers: Atrial fibrillation type: permanent Qualified Code(s): I48.2 - Chronic atrial fibrillation (3) CHF (congestive heart failure) Code(s): I50.9 - HEART FAILURE, UNSPECIFIED Qualifiers: Heart failure type: systolic Heart failure chronicity: acute Qualified Code(s): I50.21 - Acute systolic (congestive) heart failure (4) Hypercholesterolemia Code(s): E78.00 - PURE HYPERCHOLESTEROLEMIA, UNSPECIFIED (5) Acute exacerbation of chronic obstructive pulmonary disease Code(s): J44.1 - CHRONIC OBSTRUCTIVE PULMONARY DISEASE W (ACUTE) EXACERBATION (6) Chest tightness Code(s): R07.89 - OTHER CHEST PAIN (7) Hypertension Code(s): I10 - ESSENTIAL (PRIMARY) HYPERTENSION Qualifiers: Hypertension type: essential hypertension Qualified Code(s): I10 - Essential (primary) hypertension (8) Sarcoidosis Code(s): D86.9 - SARCOIDOSIS, UNSPECIFIED (9) Shortness of breath Code(s): R06.02 - SHORTNESS OF BREATH (10) Pulmonary HTN Code(s): I27.20 - PULMONARY HYPERTENSION, UNSPECIFIED
[2018-04-19] MEDS: FLUTICASONE/SALMETEROL 100 MCG/50 MCG DISKUS IH SCH ×2 (09:11→22:21)
[2018-04-19] MEDS: FERROUS SO4 325 MG TABLET (FP) PO SCH (09:11)
[2018-04-19] MEDS: NIFEdipine E.R. 90 MG TABLET (FP) PO SCH (09:11)
[2018-04-19] MEDS: APIXABAN 5 MG TABLET PO SCH ×2 (09:11→22:22)
[2018-04-19] MEDS: ATENOLOL 25 MG TABLET (FP) PO SCH (09:11)
[2018-04-19 10:28] LABS: SERUM IRON SATURATION 10 % (15-55); TOTAL IRON BINDING CAPACITY 293 ug/dL (250-450); UIBC 264 ug/dL (118-369)
[2018-04-19 10:40] LABS: ANISOCYTOSIS 2+; MACROCYTOSIS 2+; PLATELET ESTIMATE NORMAL
--- NOTE | 2018-04-19 11:07 | PN ---
Physical Exam: SUBJECTIVE: Patient seen and examined, breathing improved, feels much better, wondering if able to go home today. No new complaints, urinating 'a lot'. OBJECTIVE: Vital Signs Period Temp Pulse Resp BP Sys/Garza Pulse Ox Last 24 Hr 98 F-98.3 F 87-103 18-20 115-131/72-87 96-96 GENERAL: sitting in chair, more comfortable than yesterday, no tachypnea noted Neck: positive JVD Chest; improved air entry occasional wheezing but much improved today Abdomen:Soft, NT Extremities: no pitting edema ankles/feet Laboratory Results - last 24 hr 04/18/18 04/18/18 04/18/18 06:15 06:15 12:25 WBC RBC Hgb Hct MCV MCH MCHC RDW Plt Count MPV Absolute Neuts (auto) Neutrophils % Neutrophils % (Manual) 66.3 Band Neutrophils % 0.0 Lymphocytes % Lymphocytes % (Manual) 23.5 Monocytes % (Manual) 10 Eosinophils % (Manual) 0.0 Basophils % (Manual) 0.0 Myelocytes % (Man) 0 Promyelocytes % (Man) 0 Blast Cells % (Manual) 0 Nucleated RBC % Metamyelocytes 0 Hypochromia 2+ Platelet Estimate Decreased Poikilocytosis 1+ Anisocytosis 2+ Microcytosis 2+ Puncture Site Right radial ABG pH 7.41 ABG pCO2 at Pt Temp 59.1 H ABG pO2 at Pt Temp 73.5 D ABG HCO3 36.9 H ABG O2 Sat (Measured) 94.3 ABG O2 Content 13.6 L ABG Base Excess 10.8 H Junior Test Positive Oxygen Flow Rate Yes Sodium Potassium Chloride Carbon Dioxide Anion Gap BUN Creatinine Creat Clearance w eGFR Random Glucose Calcium Phosphorus Magnesium Iron 29 TIBC 293 Iron Saturation 10 L Transferrin 243 04/19/18 04/19/18 05:30 05:30 WBC 4.3 RBC 5.26 H Hgb 10.9 Hct 35.7 MCV 67.8 L MCH 20.6 L MCHC 30.4 L RDW 19.2 H Plt Count 156 MPV 9.1 Absolute Neuts (auto) 2.6 Neutrophils % No Result Required. Neutrophils % (Manual) Band Neutrophils % Lymphocytes % No Result Required. Lymphocytes % (Manual) Monocytes % (Manual) Eosinophils % (Manual) Basophils % (Manual) Myelocytes % (Man) Promyelocytes % (Man) Blast Cells % (Manual) Nucleated RBC % 0 Metamyelocytes Hypochromia Platelet Estimate Poikilocytosis Anisocytosis Microcytosis Puncture Site ABG pH ABG pCO2 at Pt Temp ABG pO2 at Pt Temp ABG HCO3 ABG O2 Sat (Measured) ABG O2 Content ABG Base Excess Junior Test Oxygen Flow Rate Sodium 138 Potassium 3.5 Chloride 93 L Carbon Dioxide 35 H Anion Gap 10 BUN 25 H Creatinine 1.2 H Creat Clearance w eGFR 42.40 Random Glucose 130 H Calcium 9.1 Phosphorus 3.9 Magnesium 2.3 Iron TIBC Iron Saturation Transferrin Active Medications Generic Name Dose Route Start Last Admin Trade Name Freq PRN Reason Stop Dose Admin Albuterol/Ipratropium 1 amp 04/18/18 18:03 Duoneb - NEB Q3H PRN SHORTNESS OF BREATH Albuterol/Ipratropium 1 amp 04/18/18 20:00 04/19/18 08:00 Duoneb - NEB 1 amp RQID LISA Administration Apixaban 5 mg 04/17/18 10:00 04/19/18 09:11 Eliquis - PO 5 mg BID LISA Administration Atenolol 25 mg 04/17/18 10:00 04/19/18 09:11 Tenormin - PO 25 mg DAILY LISA Administration Atorvastatin Calcium 20 mg 04/17/18 22:00 04/18/18 22:03 Lipitor - PO 20 mg HS LISA Administration Ferrous Sulfate 325 mg 04/17/18 10:00 04/19/18 09:11 Feosol - PO 325 mg DAILY LISA Administration Furosemide 80 mg 04/19/18 14:00 Lasix Injection - IVPUSH 04/19/18 14:01 ONCE ONE Furosemide 80 mg 04/20/18 06:00 Lasix Injection - IVPUSH DAILY@0600 LISA Furosemide 40 mg 04/20/18 14:00 Lasix Injection - IVPUSH DAILY@1400 LISA Melatonin 1 mg 04/19/18 02:15 04/19/18 02:23 Melatonin PO 1 mg HS LISA Administration Methylprednisolone Sodium Succinate 40 mg 04/18/18 11:45 04/19/18 09:11 Solu-Medrol - IVPUSH 40 mg Q8H-IV LISA Administration Nifedipine 90 mg 04/17/18 10:00 04/19/18 09:11 Procardia Xl - PO 90 mg DAILY LISA Administration Fluticasone/Salmeterol 1 puff 04/17/18 10:00 04/19/18 09:11 Advair 100mcg/50mcg - IH 1 puff BID LISA Administration ASSESSMENT/PLAN: 87yo F with PMH afib on eliquis, COPD on home O2, diastolic CHF, HTN and dyslipidemia presented to the ER with dyspnea and belly pain and was found ot be in acute diastolic CHF. 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 Pulmonary input noted. Cardiology input noted, Additional lasix ordered, Will need to monitor renal function closely. Strict I/Os CT chest results noted. Hb at baseline. Continue eliquis Continue atenolol/nifedipine/statin. Dispo pending clinical improvement, Plan discussed with patient in detail, all questions answered. Discussed with RN. Visit type - Emergency Visit Emergency Visit: Yes ED Registration Date: 04/16/18 Care time: The patient presented to the Emergency Department on the above date and was hospitalized for further evaluation of their emergent condition. - New Patient This patient is new to me today: No - Critical Care Critical Care patient: No - Discharge Referral Referred to [facility] No
[2018-04-19] MEDS ORDERED: MORPHINE SULFATE 2 MG/ML VIAL IVPUSH ONE (11:17)
--- NOTE | 2018-04-19 11:22 | HOSP ---
Physical Examination Vital Signs: Vital Signs Temperature 98.2 F 04/19/18 07:25 Pulse Rate 87 04/19/18 07:25 Respiratory Rate 18 04/19/18 07:27 Blood Pressure 118/72 04/19/18 07:25 O2 Sat by Pulse Oximetry (%) 96 04/19/18 07:27 Labs: CBC, BMP 04/19/18 05:30 04/19/18 05:30 Hospitalist Encounter Assessment: Was informed at 11:02 am today that patient was complaining of chest pain. Went to evaluate the patient in 416-2 and was found that patient was sitting on a chair, receiving Nebs treatment. She complained of having epigastric pain, pressure type " An elephant sitting on her chest", 5/10 in intensity, non radiating, not associated with nausea and vomiting. Vitals: BP: 142/71 mmHg Pulse: 90 bpm, irregularly irregular RR- 22 Spo2 97 % Physical exam: General: Elderly female, sitting on a chair, receiving nebs, in moderate respiratory distress. HEENT: EOM intact, no pallor or icterus. NECK: Supple, JVD B/L Chest: wheezing b/l, no crackles CVS: Irregularly irregular, tachycardic Abd: soft, non tender Ext: B/L lower ext swelling Patient is an 87 year old female with PMH of afib on eliquis, COPD on home O2, diastolic CHF, HTN and dyslipidemia presented to the ER with dyspnea and abdominal pain and was found to be in acute diastolic CHF, admitted in [facility] for evaluation and further management. 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 Informed Dr. Mendez. FOLLOW UP: 2:20 PM Patients symptoms have improved. Troponin x 1 is negative. Case discussed with Dr. Fitzgerald. Visit type - Emergency Visit Emergency Visit: Yes ED Registration Date: 04/16/18 Care time: The patient presented to the Emergency Department on the above date and was hospitalized for further evaluation of their emergent condition. - New Patient This patient is new to me today: Yes Date on this admission: 04/19/18 - Critical Care Critical Care patient: No
[2018-04-19] MEDS ORDERED: PANTOPRAZOLE SODIUM 40 MG VIAL IVPUSH ONE ×2 (11:29→12:00)
[2018-04-19] MEDS ORDERED: FUROSEMIDE 40 MG/4 ML INJECTABLE VIAL IVPUSH ONE (14:00)
--- NOTE | 2018-04-19 15:49 | EKG ---
Test Reason : Blood Pressure : / mmHG Vent. Rate : 080 BPM Atrial Rate : 220 BPM P-R Int : 000 ms QRS Dur : 090 ms QT Int : 390 ms P-R-T Axes : 000 000 -05 degrees QTc Int : 449 ms ATRIAL FIBRILLATION WITH PREMATURE VENTRICULAR OR ABERRANTLY CONDUCTED COMPLEXES ABNORMAL ECG WHEN COMPARED WITH ECG OF 16-APR-2018 18:51, NO SIGNIFICANT CHANGE WAS FOUND Confirmed by CLAIRE SALMERON MD ([id number]) on 04/19/2018 3:48:31 PM Referred By: Confirmed By:CLAIRE SALMERON MD
[2018-04-19] MEDS: ATORVASTATIN CA 20 MG TABLET (FP) PO SCH (22:22)
[2018-04-20] MEDS: methylPREDNISolone NA SUCC 40 MG/1 ML VIAL IVPUSH SCH ×3 (01:37→17:14)
[2018-04-20] MEDS: FUROSEMIDE 40 MG/4 ML INJECTABLE VIAL IVPUSH SCH ×2 (06:58→14:00)
[2018-04-20 07:49] LABS: ANION GAP 10 (8-16); BLOOD UREA NITROGEN 28 mg/dL (7-18); CALCIUM 8.8 mg/dL (8.5-10.1); CHLORIDE 96 mmol/L (98-107); CO2 37 mmol/L (21-32); GLUCOSE,RANDOM 128 mg/dL (74-106); MAGNESIUM 2.5 mg/dL (1.8-2.4); PHOSPHOROUS 4.5 mg/dL (2.5-4.9); POTASSIUM 3.4 mmol/L (3.5-5.1); SODIUM 143 mmol/L (136-145)
[2018-04-20] MEDS: ALBUTEROL SO4 2.5/IPRATROPIUM 0.5 INH SOL 3 ML VIAL.NEB. NEB SCH ×4 (07:53→20:31)
[2018-04-20] MEDS ORDERED: PT OWN MED DRAWER 7, Y5N ONE (08:17)
--- NOTE | 2018-04-20 08:38 | PN ---
Teaching Attending Note Name of Resident: Ade Weeks ATTENDING PHYSICIAN STATEMENT I saw and evaluated the patient. I reviewed the resident's note and discussed the case with the resident. I agree with the resident's findings and plan as documented with exceptions below. SUBJECTIVE: Patient seen and examined, breathing improved, urinating well, no chest or abdominal pain since yesterday. OBJECTIVE: Vital Signs Period Temp Pulse Resp BP Sys/Garza Pulse Ox Last 24 Hr 97.8 F-98.6 F 75-129 16-22 110-142/61-82 96-96 Intake & Output 04/17/18 04/18/18 04/19/18 04/20/18 23:59 23:59 23:59 23:59 Intake Total 1000 960 880 150 Output Total 1 1150 Balance 999 960 -270 150 Weight 183 lb 12.8 oz 183 lb 8 oz 182 lb 8 oz 179 lb 8 oz General: sitting in chair, mild tachypnea, no acute distress Chest: distant breath sounds with positive air entry, no wheezing appreciated Abdomen: soft, NT, ND, no epigastric tenderness Extremities:bilateral pitting edema till knees,R mildly > L Home Medications Medication Instructions Recorded Albuterol 2.5/Ipratropium 0.5 1 neb IH QID 04/16/18 [Duoneb -] Apixaban [Eliquis] 5 mg PO BID 04/16/18 Atorvastatin Ca [Lipitor] 20 mg PO HS 04/16/18 Escitalopram Oxalate [Lexapro -] 20 mg PO DAILY 04/16/18 Folic Acid 1 mg PO DAILY 04/16/18 Furosemide [Lasix] 40 mg PO DAILY 04/16/18 Atenolol [Tenormin -] DAILY 04/17/18 Fluticasone/Salmeterol [Airduo BID 04/17/18 Respiclick 232-14 Mcg] Ipratropium [place] [Atrovent Hfa] 04/17/18 Nifedipine [Nifedipine ER] 04/17/18 Sennosides/Docusate Sodium 04/17/18 [Docusate Sodium-Senna Tablet] Active Medications Albuterol/Ipratropium (Duoneb -) 1 amp NEB Q3H PRN PRN Reason: SHORTNESS OF BREATH Albuterol/Ipratropium (Duoneb -) 1 amp NEB RQID LISA Last Admin: 04/20/18 07:53 Dose: 1 amp Apixaban (Eliquis -) 5 mg PO BID [facility] Last Admin: 04/19/18 22:22 Dose: 5 mg Atenolol (Tenormin -) 25 mg PO DAILY [facility] Last Admin: 04/19/18 09:11 Dose: 25 mg Atorvastatin Calcium (Lipitor -) 20 mg PO HS [facility] Last Admin: 04/19/18 22:22 Dose: 20 mg Ferrous Sulfate (Feosol -) 325 mg PO DAILY [facility] Last Admin: 04/19/18 09:11 Dose: 325 mg Furosemide (Lasix Injection -) 80 mg IVPUSH DAILY@0600 [facility] Last Admin: 04/20/18 06:58 Dose: 80 mg Furosemide (Lasix Injection -) 40 mg IVPUSH DAILY@1400 [facility] Melatonin (Melatonin) 1 mg PO HS [facility] Last Admin: 04/19/18 22:22 Dose: 1 mg Methylprednisolone Sodium Succinate (Solu-Medrol -) 40 mg IVPUSH Q8H-IV [facility] Last Admin: 04/20/18 01:37 Dose: 40 mg Nifedipine (Procardia Xl -) 90 mg PO DAILY [facility] Last Admin: 04/19/18 09:11 Dose: 90 mg Fluticasone/Salmeterol (Advair 100mcg/50mcg -) 1 puff IH BID [facility] Last Admin: 04/19/18 22:21 Dose: 1 puff Laboratory Results - last 24 hr 04/19/18 04/20/18 12:45 06:15 Sodium 143 Potassium 3.4 L Chloride 96 L Carbon Dioxide 37 H Anion Gap 10 BUN 28 H Creatinine 1.0 Creat Clearance w eGFR 52.33 Random Glucose 128 H Calcium 8.8 Phosphorus 4.5 Magnesium 2.5 H Creatine Kinase 109 Troponin I 0.02 ASSESSMENT AND PLAN: 87yo F with PMH afib on eliquis, COPD on home O2, diastolic CHF, HTN and dyslipidemia presented to the ER with dyspnea and belly pain and was found ot be in acute diastolic CHF. 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 standing and prn nebs and oxygen suppl. renal function stable. Continue lasix 80-40 mg for now with strict I/Os and daily weights. Cardiology input appreciated. Atypical chest pain on 04/19, EKG unchanged, no current ACS concerns, monitor for now. CT chest results noted. Hb at baseline. Continue eliquis Continue atenolol/nifedipine/statin. Dispo pending clinical improvement, Plan discussed with patient in detail, all questions answered.
[2018-04-20] MEDS: ATENOLOL 25 MG TABLET (FP) PO SCH (09:34)
[2018-04-20] MEDS: NIFEdipine E.R. 90 MG TABLET (FP) PO SCH (09:34)
[2018-04-20] MEDS: FLUTICASONE/SALMETEROL 100 MCG/50 MCG DISKUS IH SCH ×2 (09:34→21:50)
[2018-04-20] MEDS: APIXABAN 5 MG TABLET PO SCH ×2 (09:34→21:50)
[2018-04-20] MEDS: FERROUS SO4 325 MG TABLET (FP) PO SCH (09:34)
--- NOTE | 2018-04-20 10:39 | PN ---
Progress Note (short form) - Note Progress Note: s: still sob but less feet/legs swell--chronic no palpitations, syncope no cp no cigs - Current Medication List Current Medications Generic Name Dose Route Start Last Admin Trade Name Khang PRN Reason Stop Dose Admin Albuterol/Ipratropium 1 amp 04/18/18 18:03 Duoneb - NEB Q3H PRN SHORTNESS OF BREATH Albuterol/Ipratropium 1 amp 04/18/18 20:00 04/20/18 07:53 Duoneb - NEB 1 amp RQID LISA Administration Apixaban 5 mg 04/17/18 10:00 04/20/18 09:34 Eliquis - PO 5 mg BID LISA Administration Atenolol 25 mg 04/17/18 10:00 04/20/18 09:34 Tenormin - PO 25 mg DAILY LISA Administration Atorvastatin Calcium 20 mg 04/17/18 22:00 04/19/18 22:22 Lipitor - PO 20 mg HS LISA Administration Ferrous Sulfate 325 mg 04/17/18 10:00 04/20/18 09:34 Feosol - PO 325 mg DAILY LISA Administration Furosemide 80 mg 04/20/18 06:00 04/20/18 06:58 Lasix Injection - IVPUSH 80 mg DAILY@0600 LISA Administration Furosemide 40 mg 04/20/18 14:00 Lasix Injection - IVPUSH DAILY@1400 LISA Melatonin 1 mg 04/19/18 02:15 04/19/18 22:22 Melatonin PO 1 mg HS LISA Administration Methylprednisolone Sodium Succinate 40 mg 04/18/18 11:45 04/20/18 09:34 Solu-Medrol - IVPUSH 40 mg Q8H-IV LISA Administration Nifedipine 90 mg 04/17/18 10:00 04/20/18 09:34 Procardia Xl - PO 90 mg DAILY LISA Administration Fluticasone/Salmeterol 1 puff 04/17/18 10:00 04/20/18 09:34 Advair 100mcg/50mcg - IH 1 puff BID LISA Administration - Objective Vital Signs: Vital Signs Period Temp Pulse Resp BP Sys/Garza Pulse Ox Last 24 Hr 97.8 F-98.6 F 75-129 16-20 110-129/61-82 96-96 Constitutional: Yes: No Distress, Calm Eyes: No: Sclera Icterus HENT: No: Nasal Congestion Cardiovascular: Yes: Regular Rate and Rhythm, JVD (massive, at 90 degrees), S1, S2, Other (PMI non diplaced). No: Gallop, Murmur Respiratory: Yes: CTA Bilaterally. No: Accessory Muscle Use, Rales, Wheezes Gastrointestinal: Yes: Normal Bowel Sounds, Soft. No: Tenderness Extremities: No: Cold Edema: Yes (nonpitting ankles/feet) Integumentary: No: Jaundice Neurological: Yes: Alert, Oriented (x3) Psychiatric: No: Agitated Labs: CBC, BMP 04/19/18 05:30 04/20/18 06:15 Assessment/Plan CXR: possible infiltrate vs fluid (with adjacent ATX) L base CT chest: no PE; mild bilat lower lobe mosaic pattern interstitial markings possibly due to mild pulm vascular congestion. mild bilat flank subcutaneous edema slightly worse than prior study. dilated main PA Echo 05/03: nl LVEF. mild RVE, mild-mod RV hypo. L/NEENA. mod MR/TR. RVSP at least 88 mmHg Echo 03/2017: Mild conc lvh. 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
--- NOTE | 2018-04-20 12:40 | PN ---
Progress Note (short form) - Note Progress Note: PULMONARY States breathing is improving but not at baseline. Still some wheezing. Vital Signs Period Temp Pulse Resp BP Sys/Garza Pulse Ox Last 24 Hr 97.8 F-98.6 F 77-129 16-20 110-129/61-82 96-96 Gen: NAD in chair Heart: RRR Lung: decreased breath sounds at the bases, no wheezes Abd: soft, nontender Ext: +distal edema CBC, BMP 04/19/18 05:30 04/20/18 06:15 Active Medications Albuterol/Ipratropium (Duoneb -) 1 amp NEB Q3H PRN PRN Reason: SHORTNESS OF BREATH Albuterol/Ipratropium (Duoneb -) 1 amp NEB RQID [facility] Last Admin: 04/20/18 11:27 Dose: 1 amp Apixaban (Eliquis -) 5 mg PO BID [facility] Last Admin: 04/20/18 09:34 Dose: 5 mg Atenolol (Tenormin -) 25 mg PO DAILY [facility] Last Admin: 04/20/18 09:34 Dose: 25 mg Atorvastatin Calcium (Lipitor -) 20 mg PO [facility] Last Admin: 04/19/18 22:22 Dose: 20 mg Ferrous Sulfate (Feosol -) 325 mg PO DAILY [facility] Last Admin: 04/20/18 09:34 Dose: 325 mg Furosemide (Lasix Injection -) 80 mg IVPUSH DAILY@0600 [facility] Last Admin: 04/20/18 06:58 Dose: 80 mg Furosemide (Lasix Injection -) 40 mg IVPUSH DAILY@1400 [facility] Melatonin (Melatonin) 1 mg PO [facility] Last Admin: 04/19/18 22:22 Dose: 1 mg Methylprednisolone Sodium Succinate (Solu-Medrol -) 40 mg IVPUSH Q8H-IV [facility] Last Admin: 04/20/18 09:34 Dose: 40 mg Nifedipine (Procardia Xl -) 90 mg PO DAILY [facility] Last Admin: 04/20/18 09:34 Dose: 90 mg Fluticasone/Salmeterol (Advair 100mcg/50mcg -) 1 puff IH BID [facility] Last Admin: 04/20/18 09:34 Dose: 1 puff A/P Acute on Chronic Hypoxic Respiratory Failure Acute on Chronic Diastolic Heart Failure Pulmonary HTN COPD Atrial Fibrillation Sarcoidosis - will decrease medrol to q12h - inhaled bronchodilators - continue lasix - monitor urine output, creatinine - daily weights - O2 to keep SpO2 >90% - rate controlled - continue anticoagulation
--- NOTE | 2018-04-20 20:13 | PN ---
Physical Exam: SUBJECTIVE: Patient seen and examined at bedside. Patient feels SOB has improved. Denies fevers, chills, Chest pain, cough, nausea, vomiting. No Acute overnight events as per nursing OBJECTIVE: Vital Signs Period Temp Pulse Resp BP Sys/Garza Pulse Ox Last 24 Hr 97.3 F-98.6 F 77-129 16-20 110-129/54-82 96-96 Vital Signs Temp 97.3 F L 04/20/18 17:00 Pulse 92 H 04/20/18 17:00 Resp 20 04/20/18 17:00 BP 110/54 04/20/18 17:00 Pulse Ox 96 04/20/18 07:57 Intake & Output 04/19/18 04/20/18 04/20/18 23:59 11:59 23:59 Intake Total 580 150 720 Output Total 750 400 Balance -170 150 320 Weight 81.42 kg Intake: IV 40 50 30 saline lock 40 50 30 Oral 540 100 690 Output: Urine 750 400 Void 750 400 Other: Voiding Method Toilet Toilet Toilet # Unmeasured Voids Void 3 2 Bowel Movement No Yes Weight Measurement Method Standing Scale GENERAL: The patient is awake, alert, and fully oriented, in no acute distress. LUNGS: Breath sounds equal, No Expiratory wheezes appreciated HEART: Regular rate and rhythm, S1, S2 without murmur, rub or gallop. ABDOMEN: Soft, nontender, nondistended, normoactive bowel sounds EXTREMITIES: 2+ pitting edema in lower extremities bilaterally Laboratory Results - last 24 hr 04/20/18 04/20/18 06:15 16:30 Sodium 143 Potassium 3.4 L Chloride 96 L Carbon Dioxide 37 H Anion Gap 10 BUN 28 H Creatinine 1.0 Creat Clearance w eGFR 52.33 POC Glucometer 163 Random Glucose 128 H Calcium 8.8 Phosphorus 4.5 Magnesium 2.5 H Active Medications Albuterol/Ipratropium (Duoneb -) 1 amp NEB Q3H PRN PRN Reason: SHORTNESS OF BREATH Last Admin: 04/20/18 15:05 Dose: 1 amp Albuterol/Ipratropium (Duoneb -) 1 amp NEB RQID [facility] Last Admin: 04/20/18 16:24 Dose: Not Given Apixaban (Eliquis -) 5 mg PO BID [facility] Last Admin: 04/20/18 09:34 Dose: 5 mg Atenolol (Tenormin -) 25 mg PO DAILY [facility] Last Admin: 04/20/18 09:34 Dose: 25 mg Atorvastatin Calcium (Lipitor -) 20 mg PO HS [facility] Last Admin: 04/19/18 22:22 Dose: 20 mg Ferrous Sulfate (Feosol -) 325 mg PO DAILY [facility] Last Admin: 04/20/18 09:34 Dose: 325 mg Furosemide (Lasix Injection -) 80 mg IVPUSH DAILY@0600 [facility] Last Admin: 04/20/18 06:58 Dose: 80 mg Furosemide (Lasix Injection -) 40 mg IVPUSH DAILY@1400 [facility] Last Admin: 04/20/18 14:00 Dose: 40 mg Melatonin (Melatonin) 1 mg PO HS [facility] Last Admin: 04/19/18 22:22 Dose: 1 mg Methylprednisolone Sodium Succinate (Solu-Medrol -) 40 mg IVPUSH Q8H-IV [facility] Last Admin: 04/20/18 17:14 Dose: 40 mg Nifedipine (Procardia Xl -) 90 mg PO DAILY [facility] Last Admin: 04/20/18 09:34 Dose: 90 mg Fluticasone/Salmeterol (Advair 100mcg/50mcg -) 1 puff IH BID [facility] Last Admin: 04/20/18 09:34 Dose: 1 puff ASSESSMENT/PLAN: 87 y/o F with PMHx of Afib, COPD, Diastolic CHF, HTN and dyslipidemia who presents to the ER with dyspnea and belly pain was found to be in acute diastolic CHF 1. Acute on Chronic diastolic CHF - Continue with Lasix 80-40mg IVPB BID - Echo read as per Dr. Simms: LA dilatation with moderate MR, dilated RV and RA and reduced RV function and moderate TR and severe pulmonary HTN - Cardio (Dr. Simms) consulted, appreciate Recommendations. - CT Chest: No CT evidence of pulmonary embolism. - strict I&O, daily weights - BMP, Mag and Phos pending tmrw 2. Acute COPD exacerbation - Wheezing improved today - Taper Solu-Medrol 40 mg to Q12H - Continue on Duoneb - Pulmonology (Dr. Nicole) consulted, appreciate recommendations 3. Microcytic anemia - Hgb at baseline - Continue Ferrous Sulfate 325 mg PO DAILY 4. Afib - On eliquis 5 mg PO BID at home, Continue - Rate controlled - Continue Atenolol 25 mg PO DAILY LISA - Continue Nifedipine 90 mg PO DAILY 5. HTN - controlled 6. dyslipidemia - Continue Atorvastatin Calcium 20 mg PO HS LISA 7. DVT ppx - Continue Eliquis Visit type - Emergency Visit Emergency Visit: No - New Patient This patient is new to me today: No - Critical Care Critical Care patient: No
[2018-04-20] MEDS: ATORVASTATIN CA 20 MG TABLET (FP) PO SCH (21:50)
[2018-04-20] MEDS: MELATONIN 1 MG TABLET PO SCH (21:50)
[2018-04-21] MEDS: methylPREDNISolone NA SUCC 40 MG/1 ML VIAL IVPUSH SCH ×3 (03:00→22:51)
[2018-04-21] MEDS: FUROSEMIDE 40 MG/4 ML INJECTABLE VIAL IVPUSH SCH ×2 (07:06→16:08)
[2018-04-21] MEDS: ALBUTEROL SO4 2.5/IPRATROPIUM 0.5 INH SOL 3 ML VIAL.NEB. NEB SCH ×4 (07:37→20:46)
[2018-04-21 08:07] LABS: ANION GAP 7 (8-16); BLOOD UREA NITROGEN 31 mg/dL (7-18); CALCIUM 8.7 mg/dL (8.5-10.1); CHLORIDE 93 mmol/L (98-107); CO2 41 mmol/L (21-32); CREATININE 0.8 mg/dL (0.55-1.02); GLUCOSE,RANDOM 104 mg/dL (74-106); MAGNESIUM 2.4 mg/dL (1.8-2.4); PHOSPHOROUS 3.3 mg/dL (2.5-4.9); SODIUM 141 mmol/L (136-145)
[2018-04-21] MEDS ORDERED: POTASSIUM CHLORIDE TABS 20 MEQ TABLET.ER (FP) PO ONE ×2 (08:51→12:00)
[2018-04-21] MEDS: FLUTICASONE/SALMETEROL 100 MCG/50 MCG DISKUS IH SCH ×2 (10:35→22:51)
[2018-04-21] MEDS: APIXABAN 5 MG TABLET PO SCH ×2 (10:36→22:52)
[2018-04-21] MEDS: FERROUS SO4 325 MG TABLET (FP) PO SCH (10:36)
[2018-04-21] MEDS: ATENOLOL 25 MG TABLET (FP) PO SCH (10:36)
[2018-04-21] MEDS: NIFEdipine E.R. 90 MG TABLET (FP) PO SCH (10:36)
--- NOTE | 2018-04-21 10:42 | PN ---
Progress Note (short form) - Note Progress Note: s: still sob but less feet/legs swell--chronic no palpitations, syncope no cp no cigs - Current Medication List Current Medications Generic Name Dose Route Start Last Admin Trade Name Freq PRN Reason Stop Dose Admin Albuterol/Ipratropium 1 amp 04/18/18 18:03 04/20/18 15:05 Duoneb - NEB 1 amp Q3H PRN Administration SHORTNESS OF BREATH Albuterol/Ipratropium 1 amp 04/18/18 20:00 04/21/18 07:37 Duoneb - NEB 1 amp RQID LISA Administration Apixaban 5 mg 04/17/18 10:00 04/21/18 10:36 Eliquis - PO 5 mg BID LISA Administration Atenolol 25 mg 04/17/18 10:00 04/21/18 10:36 Tenormin - PO 25 mg DAILY LISA Administration Atorvastatin Calcium 20 mg 04/17/18 22:00 04/20/18 21:50 Lipitor - PO 20 mg HS LISA Administration Ferrous Sulfate 325 mg 04/17/18 10:00 04/21/18 10:36 Feosol - PO 325 mg DAILY LISA Administration Furosemide 80 mg 04/20/18 06:00 04/21/18 07:06 Lasix Injection - IVPUSH 80 mg DAILY@0600 LISA Administration Furosemide 40 mg 04/20/18 14:00 04/20/18 14:00 Lasix Injection - IVPUSH 40 mg DAILY@1400 LISA Administration Melatonin 1 mg 04/19/18 02:15 04/20/18 21:50 Melatonin PO 1 mg HS LISA Administration Methylprednisolone Sodium Succinate 40 mg 04/21/18 09:45 04/21/18 10:35 Solu-Medrol - IVPUSH 40 mg Q12H LISA Administration Nifedipine 90 mg 04/17/18 10:00 04/21/18 10:36 Procardia Xl - PO 90 mg DAILY LISA Administration Potassium Chloride 40 meq 04/21/18 12:00 K-Dur - PO 04/21/18 12:01 ONCE ONE Potassium Chloride 40 meq 04/22/18 10:00 Potassium Chloride Oral Liquid PO DAILY LISA Fluticasone/Salmeterol 1 puff 04/17/18 10:00 04/21/18 10:35 Advair 100mcg/50mcg - IH 1 puff BID LISA Administration - Objective Vital Signs: Vital Signs Period Temp Pulse Resp BP Sys/Garza Pulse Ox Last 24 Hr 97.3 F-98.3 F 85-105 20-24 110-136/54-84 93-94 Constitutional: Yes: No Distress, Calm Eyes: No: Sclera Icterus HENT: No: Nasal Congestion Cardiovascular: Yes: Regular Rate and Rhythm, JVD (massive, at 90 degrees), S1, S2, Other (PMI non diplaced). No: Gallop, Murmur Respiratory: Yes: CTA Bilaterally. No: Accessory Muscle Use, Rales, Wheezes Gastrointestinal: Yes: Normal Bowel Sounds, Soft. No: Tenderness Extremities: No: Cold Edema: Yes (nonpitting ankles/feet) Integumentary: No: Jaundice Neurological: Yes: Alert, Oriented (x3) Psychiatric: No: Agitated Labs: CBC, BMP 04/19/18 05:30 04/21/18 06:40 Assessment/Plan CXR: possible infiltrate vs fluid (with adjacent ATX) L base CT chest: no PE; mild bilat lower lobe mosaic pattern interstitial markings possibly due to mild pulm vascular congestion. mild bilat flank subcutaneous edema slightly worse than prior study. dilated main PA Echo 05/03: nl LVEF. mild RVE, mild-mod RV hypo. L/NEENA. mod MR/TR. RVSP at least 88 mmHg Echo 03/2017: Mild conc lvh. 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
--- NOTE | 2018-04-21 12:29 | PN ---
Progress Note, Physician History of Present Illness: PULMONARY ALERT,FEELING BETTER LESS DYSPNEIC - Current Medication List Current Medications: Active Medications Albuterol/Ipratropium (Duoneb -) 1 amp NEB Q3H PRN PRN Reason: SHORTNESS OF BREATH Last Admin: 04/20/18 15:05 Dose: 1 amp Albuterol/Ipratropium (Duoneb -) 1 amp NEB RQID [facility] Last Admin: 04/21/18 11:10 Dose: 1 amp Apixaban (Eliquis -) 5 mg PO BID [facility] Last Admin: 04/21/18 10:36 Dose: 5 mg Atenolol (Tenormin -) 25 mg PO DAILY [facility] Last Admin: 04/21/18 10:36 Dose: 25 mg Atorvastatin Calcium (Lipitor -) 20 mg PO HS [facility] Last Admin: 04/20/18 21:50 Dose: 20 mg Ferrous Sulfate (Feosol -) 325 mg PO DAILY [facility] Last Admin: 04/21/18 10:36 Dose: 325 mg Furosemide (Lasix Injection -) 80 mg IVPUSH DAILY@0600 [facility] Last Admin: 04/21/18 07:06 Dose: 80 mg Furosemide (Lasix Injection -) 40 mg IVPUSH DAILY@1400 [facility] Last Admin: 04/20/18 14:00 Dose: 40 mg Melatonin (Melatonin) 1 mg PO HS [facility] Last Admin: 04/20/18 21:50 Dose: 1 mg Methylprednisolone Sodium Succinate (Solu-Medrol -) 40 mg IVPUSH Q12H [facility] Last Admin: 04/21/18 10:35 Dose: 40 mg Nifedipine (Procardia Xl -) 90 mg PO DAILY [facility] Last Admin: 04/21/18 10:36 Dose: 90 mg Potassium Chloride (Potassium Chloride Oral Liquid) 40 meq PO DAILY [facility] Fluticasone/Salmeterol (Advair 100mcg/50mcg -) 1 puff IH BID [facility] Last Admin: 04/21/18 10:35 Dose: 1 puff - Objective Vital Signs: Vital Signs Temperature 98.3 F 04/21/18 02:00 Pulse Rate 88 04/21/18 08:32 Respiratory Rate 24 04/21/18 08:32 Blood Pressure 136/84 04/21/18 08:32 O2 Sat by Pulse Oximetry (%) 93 L 04/21/18 08:32 Constitutional: Yes: Well Nourished, Calm Eyes: Yes: WNL HENT: Yes: WNL Neck: Yes: WNL Cardiovascular: Yes: Pulse Irregular, S1, S2 Respiratory: Yes: Rales (FEW BIBASILAR CRACKLES) Gastrointestinal: Yes: Normal Bowel Sounds, Soft Extremities: Yes: WNL Edema: Yes Edema: LLE: Trace, RLE: Trace Labs: CBC, BMP 04/19/18 05:30 04/21/18 06:40 Problem List - Problems (1) Acute and chronic respiratory failure with hypercapnia Code(s): J96.22 - ACUTE AND CHRONIC RESPIRATORY FAILURE WITH HYPERCAPNIA (2) Atrial fibrillation Code(s): I48.91 - UNSPECIFIED ATRIAL FIBRILLATION Qualifiers: Atrial fibrillation type: permanent Qualified Code(s): I48.2 - Chronic atrial fibrillation (3) CHF (congestive heart failure) Code(s): I50.9 - HEART FAILURE, UNSPECIFIED Qualifiers: Heart failure type: systolic Heart failure chronicity: acute Qualified Code(s): I50.21 - Acute systolic (congestive) heart failure (4) Hypercholesterolemia Code(s): E78.00 - PURE HYPERCHOLESTEROLEMIA, UNSPECIFIED (5) Acute exacerbation of chronic obstructive pulmonary disease Code(s): J44.1 - CHRONIC OBSTRUCTIVE PULMONARY DISEASE W (ACUTE) EXACERBATION (6) Chest tightness Code(s): R07.89 - OTHER CHEST PAIN (7) Hypertension Code(s): I10 - ESSENTIAL (PRIMARY) HYPERTENSION Qualifiers: Hypertension type: essential hypertension Qualified Code(s): I10 - Essential (primary) hypertension (8) Sarcoidosis Code(s): D86.9 - SARCOIDOSIS, UNSPECIFIED (9) Shortness of breath Code(s): R06.02 - SHORTNESS OF BREATH (10) Pulmonary HTN Code(s): I27.20 - PULMONARY HYPERTENSION, UNSPECIFIED Assessment/Plan IMP ACUTE ON CHRONIC HYPOXEMIC RESPIRATORY FAILURE SEVERE PULMONARY HTN ? COPD O2 DEPENDENT CHF SARCOIDOSIS AFIB PLAN IV STEROIDS 02 AC INHALED BRONCHODILATORS LASIX DAILY WT SLEEP SCREEN DR ALBERT Problem List - Problems (1) Acute and chronic respiratory failure with hypercapnia Code(s): J96.22 - ACUTE AND CHRONIC RESPIRATORY FAILURE WITH HYPERCAPNIA (2) Atrial fibrillation Code(s): I48.91 - UNSPECIFIED ATRIAL FIBRILLATION Qualifiers: Atrial fibrillation type: permanent Qualified Code(s): I48.2 - Chronic atrial fibrillation (3) CHF (congestive heart failure) Code(s): I50.9 - HEART FAILURE, UNSPECIFIED Qualifiers: Heart failure type: systolic Heart failure chronicity: acute Qualified Code(s): I50.21 - Acute systolic (congestive) heart failure (4) Hypercholesterolemia Code(s): E78.00 - PURE HYPERCHOLESTEROLEMIA, UNSPECIFIED (5) Acute exacerbation of chronic obstructive pulmonary disease Code(s): J44.1 - CHRONIC OBSTRUCTIVE PULMONARY DISEASE W (ACUTE) EXACERBATION (6) Chest tightness Code(s): R07.89 - OTHER CHEST PAIN (7) Hypertension Code(s): I10 - ESSENTIAL (PRIMARY) HYPERTENSION Qualifiers: Hypertension type: essential hypertension Qualified Code(s): I10 - Essential (primary) hypertension (8) Sarcoidosis Code(s): D86.9 - SARCOIDOSIS, UNSPECIFIED (9) Shortness of breath Code(s): R06.02 - SHORTNESS OF BREATH (10) Pulmonary HTN Code(s): I27.20 - PULMONARY HYPERTENSION, UNSPECIFIED
--- NOTE | 2018-04-21 16:11 | PN ---
Teaching Attending Note Name of Resident: Ade Weeks ATTENDING PHYSICIAN STATEMENT I saw and evaluated the patient. I reviewed the resident's note and discussed the case with the resident. I agree with the resident's findings and plan as documented with exceptions below. SUBJECTIVE: Patient seen and examined. breathing continues to improve, no chest pain currently. Feels better. OBJECTIVE: Vital Signs Period Temp Pulse Resp BP Sys/Garza Pulse Ox Last 24 Hr 97.3 F-98.3 F 76-105 18-24 110-136/54-84 93-98 Intake & Output 04/18/18 04/19/18 04/20/18 04/21/18 23:59 23:59 23:59 23:59 Intake Total 960 880 870 Output Total 1150 400 400 Balance 960 -270 470 -400 Weight 183 lb 8 oz 182 lb 8 oz 179 lb 8 oz 177 lb 8 oz General: sitting in bed, mild tachypnea but improved Chest: improved air entry, no wheezing today Neck: JVD visualized Extremities: 2+ pedal pitting edema, improved Home Medications Medication Instructions Recorded Albuterol 2.5/Ipratropium 0.5 1 neb IH QID 04/16/18 [Duoneb -] Apixaban [Eliquis] 5 mg PO BID 04/16/18 Atorvastatin Ca [Lipitor] 20 mg PO HS 04/16/18 Escitalopram Oxalate [Lexapro -] 20 mg PO DAILY 04/16/18 Folic Acid 1 mg PO DAILY 04/16/18 Furosemide [Lasix] 40 mg PO DAILY 04/16/18 Atenolol [Tenormin -] DAILY 04/17/18 Fluticasone/Salmeterol [Airduo BID 04/17/18 Respiclick 232-14 Mcg] Ipratropium [place] [Atrovent Hfa] 04/17/18 Nifedipine [Nifedipine ER] 04/17/18 Sennosides/Docusate Sodium 04/17/18 [Docusate Sodium-Senna Tablet] Active Medications Albuterol/Ipratropium (Duoneb -) 1 amp NEB Q3H PRN PRN Reason: SHORTNESS OF BREATH Last Admin: 04/20/18 15:05 Dose: 1 amp Albuterol/Ipratropium (Duoneb -) 1 amp NEB RQID [facility] Last Admin: 04/21/18 16:08 Dose: Not Given Apixaban (Eliquis -) 5 mg PO BID [facility] Last Admin: 04/21/18 10:36 Dose: 5 mg Atenolol (Tenormin -) 25 mg PO DAILY [facility] Last Admin: 04/21/18 10:36 Dose: 25 mg Atorvastatin Calcium (Lipitor -) 20 mg PO HS [facility] Last Admin: 04/20/18 21:50 Dose: 20 mg Ferrous Sulfate (Feosol -) 325 mg PO DAILY [facility] Last Admin: 04/21/18 10:36 Dose: 325 mg Furosemide (Lasix Injection -) 80 mg IVPUSH DAILY@0600 [facility] Last Admin: 04/21/18 07:06 Dose: 80 mg Furosemide (Lasix Injection -) 40 mg IVPUSH DAILY@1400 [facility] Last Admin: 04/21/18 16:08 Dose: 40 mg Melatonin (Melatonin) 1 mg PO HS [facility] Last Admin: 04/20/18 21:50 Dose: 1 mg Methylprednisolone Sodium Succinate (Solu-Medrol -) 40 mg IVPUSH Q12H [facility] Last Admin: 04/21/18 10:35 Dose: 40 mg Nifedipine (Procardia Xl -) 90 mg PO DAILY [facility] Last Admin: 04/21/18 10:36 Dose: 90 mg Potassium Chloride (Potassium Chloride Oral Liquid) 40 meq PO DAILY [facility] Fluticasone/Salmeterol (Advair 100mcg/50mcg -) 1 puff IH BID [facility] Last Admin: 04/21/18 10:35 Dose: 1 puff Laboratory Results - last 24 hr 04/20/18 04/21/18 16:30 06:40 Sodium 141 Potassium 3.0 L Chloride 93 L Carbon Dioxide 41 H Anion Gap 7 L BUN 31 H Creatinine 0.8 Creat Clearance w eGFR > 60 POC Glucometer 163 Random Glucose 104 Calcium 8.7 Phosphorus 3.3 Magnesium 2.4 Microbiology 04/16/18 20:14 Blood - Peripheral Venous Blood Culture - Preliminary NO GROWTH OBTAINED AFTER 96 HOURS, INCUBATION TO CONTINUE FOR 1 DAYS. 04/16/18 19:43 Blood - Peripheral Venous Blood Culture - Preliminary NO GROWTH OBTAINED AFTER 96 HOURS, INCUBATION TO CONTINUE FOR 1 DAYS. 04/19/18 13:15 Urine - Urine Clean Catch Urine Culture - Final NO GROWTH OBTAINED 04/16/18 22:20 Urine - Urine Clean Catch Urine Culture - Final Contaminated: Please Repeat ASSESSMENT AND PLAN: 87yo F with PMH afib on eliquis, COPD on home O2, diastolic CHF, HTN and dyslipidemia presented to the ER with dyspnea and belly pain and was found ot be in acute diastolic CHF. 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 standing and prn nebs and oxygen suppl. renal function stable. Continue lasix 80-40 mg for now with strict I/Os and daily weights. Cardiology input appreciated. Atypical chest pain on 04/19, EKG unchanged, no current ACS concerns, monitor for now. CT chest results noted. Hb at baseline. Continue eliquis Continue atenolol/nifedipine/statin. Dispo pending clinical improvement, PT eval and ambulatory oxygen needs. Encourage OOB. Plan discussed with patient in detail, all questions answered.
--- NOTE | 2018-04-21 19:05 | PN ---
Physical Exam: SUBJECTIVE: Patient seen and examined at bedside. Patient feels less SOB, does not experience any congestion. Denies fevers, chills, Chest pain, nausea, vomiting. No Acute overnight events as per nursing OBJECTIVE: Vital Signs Period Temp Pulse Resp BP Sys/Garza Pulse Ox Last 24 Hr 97.8 F-98.3 F 76-105 18-24 120-136/56-84 93-98 GENERAL: The patient is awake, alert, and fully oriented, in no acute distress. NECK: +JVD LUNGS: Airway entry improved, CTA b/l, No Expiratory wheezes appreciated HEART: Regular rate and rhythm, S1, S2 without murmur, rub or gallop. ABDOMEN: Soft, nontender, nondistended, normoactive bowel sounds EXTREMITIES: 2+ pitting edema in lower extremities bilaterally Laboratory Results - last 24 hr 04/21/18 06:40 Sodium 141 Potassium 3.0 L Chloride 93 L Carbon Dioxide 41 H Anion Gap 7 L BUN 31 H Creatinine 0.8 Creat Clearance w eGFR > 60 Random Glucose 104 Calcium 8.7 Phosphorus 3.3 Magnesium 2.4 Active Medications Albuterol/Ipratropium (Duoneb -) 1 amp NEB Q3H PRN PRN Reason: SHORTNESS OF BREATH Last Admin: 04/20/18 15:05 Dose: 1 amp Albuterol/Ipratropium (Duoneb -) 1 amp NEB RQID [facility] Last Admin: 04/21/18 16:08 Dose: Not Given Apixaban (Eliquis -) 5 mg PO BID [facility] Last Admin: 04/21/18 10:36 Dose: 5 mg Atenolol (Tenormin -) 25 mg PO DAILY [facility] Last Admin: 04/21/18 10:36 Dose: 25 mg Atorvastatin Calcium (Lipitor -) 20 mg PO [facility] Last Admin: 04/20/18 21:50 Dose: 20 mg Ferrous Sulfate (Feosol -) 325 mg PO DAILY [facility] Last Admin: 04/21/18 10:36 Dose: 325 mg Furosemide (Lasix Injection -) 80 mg IVPUSH DAILY@0600 [facility] Last Admin: 04/21/18 07:06 Dose: 80 mg Furosemide (Lasix Injection -) 40 mg IVPUSH DAILY@1400 [facility] Last Admin: 04/21/18 16:08 Dose: 40 mg Melatonin (Melatonin) 1 mg PO [facility] Last Admin: 04/20/18 21:50 Dose: 1 mg Methylprednisolone Sodium Succinate (Solu-Medrol -) 40 mg IVPUSH Q12H [facility] Last Admin: 04/21/18 10:35 Dose: 40 mg Nifedipine (Procardia Xl -) 90 mg PO DAILY [facility] Last Admin: 04/21/18 10:36 Dose: 90 mg Potassium Chloride (Potassium Chloride Oral Liquid) 40 meq PO DAILY [facility] Fluticasone/Salmeterol (Advair 100mcg/50mcg -) 1 puff IH BID [facility] Last Admin: 04/21/18 10:35 Dose: 1 puff ASSESSMENT/PLAN: 87 y/o F with PMHx of Afib, COPD, Diastolic CHF, HTN and dyslipidemia who presents to the ER with dyspnea and belly pain was found to be in acute diastolic CHF 1. Acute on Chronic diastolic CHF - Continue with Lasix 80-40mg IVPB BID - Echo read as per Dr. Simms: LA dilatation with moderate MR, dilated RV and RA and reduced RV function and moderate TR and severe pulmonary HTN - Cardio (Dr. Simms) consulted, appreciate Recommendations. - CT Chest: No CT evidence of pulmonary embolism. - strict I&O, daily weights 2. Acute COPD exacerbation - Taper Solu-Medrol 40 mg to Q12H - Continue on Duoneb - Add supplemental oxygen - Pulmonology (Dr. Nicole) consulted, appreciate recommendations - Physical therapy evaluation pending with ambulatory oxygen needs 3. Microcytic anemia - Hgb at baseline - Continue Ferrous Sulfate 325 mg PO DAILY 4. Afib - On eliquis 5 mg PO BID at home, Continue - Rate controlled - Continue Atenolol 25 mg PO DAILY [facility] - Continue Nifedipine 90 mg PO DAILY 5. HTN - controlled 6. dyslipidemia - Continue Atorvastatin Calcium 20 mg PO [facility] 7. DVT ppx - Continue Eliquis Visit type - Emergency Visit Emergency Visit: No - New Patient This patient is new to me today: No - Critical Care Critical Care patient: No
[2018-04-21] MEDS: MELATONIN 1 MG TABLET PO SCH (22:51)
[2018-04-21] MEDS: ATORVASTATIN CA 20 MG TABLET (FP) PO SCH (22:52)
[2018-04-22] MEDS: FUROSEMIDE 40 MG/4 ML INJECTABLE VIAL IVPUSH SCH (06:53)
--- NOTE | 2018-04-22 08:29 | PN ---
Progress Note, Physician Chief Complaint: sob History of Present Illness: sob much better swelling resolved no palpitations no cp today no cigs - Current Medication List Current Medications: Active Medications Albuterol/Ipratropium (Duoneb -) 1 amp NEB Q3H PRN PRN Reason: SHORTNESS OF BREATH Last Admin: 04/20/18 15:05 Dose: 1 amp Albuterol/Ipratropium (Duoneb -) 1 amp NEB RQID [facility] Last Admin: 04/21/18 20:46 Dose: Not Given Apixaban (Eliquis -) 5 mg PO BID [facility] Last Admin: 04/21/18 22:52 Dose: 5 mg Atenolol (Tenormin -) 25 mg PO DAILY [facility] Last Admin: 04/21/18 10:36 Dose: 25 mg Atorvastatin Calcium (Lipitor -) 20 mg PO HS [facility] Last Admin: 04/21/18 22:52 Dose: 20 mg Ferrous Sulfate (Feosol -) 325 mg PO DAILY [facility] Last Admin: 04/21/18 10:36 Dose: 325 mg Furosemide (Lasix Injection -) 80 mg IVPUSH DAILY@0600 [facility] Last Admin: 04/22/18 06:53 Dose: 80 mg Furosemide (Lasix Injection -) 40 mg IVPUSH DAILY@1400 [facility] Last Admin: 04/21/18 16:08 Dose: 40 mg Melatonin (Melatonin) 1 mg PO HS [facility] Last Admin: 04/21/18 22:51 Dose: 1 mg Methylprednisolone Sodium Succinate (Solu-Medrol -) 40 mg IVPUSH Q12H [facility] Last Admin: 04/21/18 22:51 Dose: 40 mg Nifedipine (Procardia Xl -) 90 mg PO DAILY [facility] Last Admin: 04/21/18 10:36 Dose: 90 mg Potassium Chloride (Potassium Chloride Oral Liquid) 40 meq PO DAILY [facility] Fluticasone/Salmeterol (Advair 100mcg/50mcg -) 1 puff IH BID [facility] Last Admin: 04/21/18 22:51 Dose: 1 puff - Objective Vital Signs: Vital Signs Temperature 98.1 F 04/22/18 02:57 Pulse Rate 90 04/22/18 06:00 Respiratory Rate 20 04/22/18 06:00 Blood Pressure 129/88 04/22/18 06:00 O2 Sat by Pulse Oximetry (%) 98 04/21/18 10:00 Constitutional: Yes: No Distress, Calm Eyes: No: Sclera Icterus HENT: No: Nasal Congestion Cardiovascular: Yes: Regular Rate and Rhythm, JVD (6-8cm), S1, S2, Other (PMI non diplaced). No: Gallop, Murmur Respiratory: Yes: Regular, Rales (lower 1/2 lung esparza bilat). No: Accessory Muscle Use Gastrointestinal: Yes: Normal Bowel Sounds, Soft. No: Tenderness Musculoskeletal: Yes: Other (No kyphosis) Extremities: No: Cold Edema: No Integumentary: No: Jaundice Neurological: Yes: Alert, Oriented (x3) Psychiatric: No: Agitated Labs: CBC, BMP 04/19/18 05:30 Assessment/Plan CXR: possible infiltrate vs fluid (with adjacent ATX) L base CT chest: no PE; mild bilat lower lobe mosaic pattern interstitial markings possibly due to mild pulm vascular congestion. mild bilat flank subcutaneous edema slightly worse than prior study. dilated main PA Echo 05/03: nl LVEF. mild RVE, mild-mod RV hypo. L/NEENA. mod MR/TR. RVSP at least 88 mmHg Echo 03/2017: Mild conc lvh. 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 JVD much improved. SOB resolved. -rec change lasix 80 iv AM/40 iv PM to torsemide 80 po qd to start. pt advised to f/u with us as outpt for volume assessment and diuretic titration (1-2 wks after discharge). -K 3.2, received KCL 40 po x1 only yesterday (per DEC review). rec continue KCL 40 qd for now (decreasing effective diuretic dose). should have rpt labs (BMP) within 3 days of discharge afib: -HR reasonably controlled, still briefly to 120s at times. -change atenolol 25 to bid -cont eliquis for AC a.e. 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
[2018-04-22 08:40] LABS: ANION GAP 7 (8-16); BLOOD UREA NITROGEN 27 mg/dL (7-18); CHLORIDE 93 mmol/L (98-107); CO2 42 mmol/L (21-32); GLUCOSE,RANDOM 138 mg/dL (74-106); POTASSIUM 3.2 mmol/L (3.5-5.1); SODIUM 142 mmol/L (136-145)
[2018-04-22 08:42] LABS: CREATININE 0.7 mg/dL (0.55-1.02)
[2018-04-22] MEDS: ALBUTEROL SO4 2.5/IPRATROPIUM 0.5 INH SOL 3 ML VIAL.NEB. NEB SCH ×3 (08:50→15:00)
[2018-04-22] MEDS ORDERED: PT OWN MED DRAWER 7, Y5N ONE (09:45)
[2018-04-22] MEDS: FERROUS SO4 325 MG TABLET (FP) PO SCH (09:47)
[2018-04-22] MEDS: methylPREDNISolone NA SUCC 40 MG/1 ML VIAL IVPUSH SCH (09:47)
[2018-04-22] MEDS: NIFEdipine E.R. 90 MG TABLET (FP) PO SCH (09:47)
[2018-04-22] MEDS: ATENOLOL 25 MG TABLET (FP) PO SCH (09:47)
[2018-04-22] MEDS: APIXABAN 5 MG TABLET PO SCH (09:47)
[2018-04-22] MEDS ORDERED: POTASSIUM CHLORIDE ORAL LIQUID 20 MEQ/15 ML PO SCH (10:00)
[2018-04-22] MEDS: FLUTICASONE/SALMETEROL 100 MCG/50 MCG DISKUS IH SCH (10:59)
[2018-04-22] MEDS ORDERED: predniSONE 20 MG TABLET (UD) PO ONE (11:45)
--- NOTE | 2018-04-22 13:38 | PN ---
Progress Note (short form) - Note Progress Note: SOB and edema improving. No CP. No acute events overnight. Intake & Output 04/19/18 04/20/18 04/21/18 04/22/18 23:59 23:59 23:59 23:59 Intake Total 880 870 Output Total 1150 400 400 Balance -270 470 -400 Weight 182 lb 8 oz 179 lb 8 oz 177 lb 8 oz 171 lb 6 oz Last Vital Signs Temp Pulse Resp BP Pulse Ox 98.1 F 90 20 129/88 98 04/22/18 02:57 04/22/18 06:00 04/22/18 06:00 04/22/18 06:00 04/21/18 10:00 Active Medications Albuterol/Ipratropium (Duoneb -) 1 amp NEB Q3H PRN PRN Reason: SHORTNESS OF BREATH Last Admin: 04/20/18 15:05 Dose: 1 amp Albuterol/Ipratropium (Duoneb -) 1 amp NEB RQID [facility] Last Admin: 04/21/18 20:46 Dose: Not Given Apixaban (Eliquis -) 5 mg PO BID [facility] Last Admin: 04/22/18 09:47 Dose: 5 mg Atenolol (Tenormin -) 25 mg PO BID [facility] Atorvastatin Calcium (Lipitor -) 20 mg PO [facility] Last Admin: 04/21/18 22:52 Dose: 20 mg Ferrous Sulfate (Feosol -) 325 mg PO DAILY [facility] Last Admin: 04/22/18 09:47 Dose: 325 mg Melatonin (Melatonin) 1 mg PO HS [facility] Last Admin: 04/21/18 22:51 Dose: 1 mg Nifedipine (Procardia Xl -) 90 mg PO DAILY [facility] Last Admin: 04/22/18 09:47 Dose: 90 mg Potassium Chloride (Potassium Chloride Oral Liquid) 40 meq PO DAILY [facility] Last Admin: 04/22/18 09:46 Dose: 40 meq Prednisone (Deltasone -) 60 mg PO DAILY [facility] Fluticasone/Salmeterol (Advair 100mcg/50mcg -) 1 puff IH BID [facility] Last Admin: 04/22/18 10:59 Dose: 1 puff Torsemide (Demadex -) 80 mg PO DAILY [facility] Constitutional: Yes: NAD Eyes: Yes: WNL HENT: Yes: WNL Neck: Yes: WNL Cardiovascular: Yes: Pulse Irregular, S1, S2 Respiratory: Yes: few bibasilar Rales/rhonchi Gastrointestinal: Yes: Normal Bowel Sounds, Soft Extremities: Yes: WNL Edema: Yes Edema: LLE: Trace, RLE: Trace Labs: Laboratory Results - last 24 hr 04/22/18 06:50 Sodium 142 Potassium 3.2 L Chloride 93 L Carbon Dioxide 42 H Anion Gap 7 L BUN 27 H Creatinine 0.7 Creat Clearance w eGFR > 60 Random Glucose 138 H Calcium 9.0 Problem List - Problems (1) Acute and chronic respiratory failure with hypercapnia Code(s): J96.22 - ACUTE AND CHRONIC RESPIRATORY FAILURE WITH HYPERCAPNIA (2) Atrial fibrillation Code(s): I48.91 - UNSPECIFIED ATRIAL FIBRILLATION Qualifiers: Atrial fibrillation type: permanent Qualified Code(s): I48.2 - Chronic atrial fibrillation (3) CHF (congestive heart failure) Code(s): I50.9 - HEART FAILURE, UNSPECIFIED Qualifiers: Heart failure type: systolic Heart failure chronicity: acute Qualified Code(s): I50.21 - Acute systolic (congestive) heart failure (4) Hypercholesterolemia Code(s): E78.00 - PURE HYPERCHOLESTEROLEMIA, UNSPECIFIED (5) Acute exacerbation of chronic obstructive pulmonary disease Code(s): J44.1 - CHRONIC OBSTRUCTIVE PULMONARY DISEASE W (ACUTE) EXACERBATION (6) Chest tightness Code(s): R07.89 - OTHER CHEST PAIN (7) Hypertension Code(s): I10 - ESSENTIAL (PRIMARY) HYPERTENSION Qualifiers: Hypertension type: essential hypertension Qualified Code(s): I10 - Essential (primary) hypertension (8) Sarcoidosis Code(s): D86.9 - SARCOIDOSIS, UNSPECIFIED (9) Shortness of breath Code(s): R06.02 - SHORTNESS OF BREATH (10) Pulmonary HTN Code(s): I27.20 - PULMONARY HYPERTENSION, UNSPECIFIED Assessment/Plan IMP ACUTE ON CHRONIC HYPOXEMIC RESPIRATORY FAILURE SEVERE PULMONARY HTN ? COPD O2 DEPENDENT CHF SARCOIDOSIS AFIB PLAN AGREE WITH PREDNISONE TAPER O2 NEEDED AC INHALED BRONCHODILATORS LASIX DAILY WT SLEEP SCREEN DR MONSON
--- NOTE | 2018-04-22 13:56 | PN ---
Teaching Attending Note Name of Resident: Ade Weeks ATTENDING PHYSICIAN STATEMENT I saw and evaluated the patient. I reviewed the resident's note and discussed the case with the resident. I agree with the resident's findings and plan as documented with exceptions below. SUBJECTIVE: patient seen and examined. breathing continues to improve, no new concerns. Urinating well. OBJECTIVE: Vital Signs Period Temp Pulse Resp BP Sys/Garza Pulse Ox Last 24 Hr 97.8 F-98.5 F 75-90 18-20 95-131/57-88 Intake & Output 04/19/18 04/20/18 04/21/18 04/22/18 23:59 23:59 23:59 23:59 Intake Total 880 870 Output Total 1150 400 400 Balance -270 470 -400 Weight 182 lb 8 oz 179 lb 8 oz 177 lb 8 oz 171 lb 6 oz General: sitting in bed in no acute distress Chest: improved air entry, scattered wheezes occasionally Extremities: improving pedal edema Laboratory Results - last 24 hr 04/22/18 06:50 Sodium 142 Potassium 3.2 L Chloride 93 L Carbon Dioxide 42 H Anion Gap 7 L BUN 27 H Creatinine 0.7 Creat Clearance w eGFR > 60 Random Glucose 138 H Calcium 9.0 Active Medications Albuterol/Ipratropium (Duoneb -) 1 amp NEB Q3H PRN PRN Reason: SHORTNESS OF BREATH Last Admin: 04/20/18 15:05 Dose: 1 amp Albuterol/Ipratropium (Duoneb -) 1 amp NEB RQID [facility] Last Admin: 04/21/18 20:46 Dose: Not Given Apixaban (Eliquis -) 5 mg PO BID [facility] Last Admin: 04/22/18 09:47 Dose: 5 mg Atenolol (Tenormin -) 25 mg PO BID [facility] Atorvastatin Calcium (Lipitor -) 20 mg PO [facility] Last Admin: 04/21/18 22:52 Dose: 20 mg Ferrous Sulfate (Feosol -) 325 mg PO DAILY [facility] Last Admin: 04/22/18 09:47 Dose: 325 mg Melatonin (Melatonin) 1 mg PO [facility] Last Admin: 04/21/18 22:51 Dose: 1 mg Nifedipine (Procardia Xl -) 90 mg PO DAILY [facility] Last Admin: 04/22/18 09:47 Dose: 90 mg Potassium Chloride (Potassium Chloride Oral Liquid) 40 meq PO DAILY [facility] Last Admin: 04/22/18 09:46 Dose: 40 meq Prednisone (Deltasone -) 60 mg PO DAILY [facility] Fluticasone/Salmeterol (Advair 100mcg/50mcg -) 1 puff IH BID [facility] Last Admin: 04/22/18 10:59 Dose: 1 puff Torsemide (Demadex -) 80 mg PO DAILY [facility] ASSESSMENT AND PLAN: 87yo F with PMH afib on eliquis, COPD on home O2, diastolic CHF, HTN and dyslipidemia presented to the ER with dyspnea and belly pain and was found ot be in acute diastolic CHF. -Acute COPD exacerbation -Acute on chronic diastolic HF exacerbation -Severe pulmonary HTN, likely with cor pulmonale -SANAM, suspect from CHF, improved with diuresis -Atypical Chest pain (known prior history as discussed with cardiology) -Microcytic anemia -Afib on eliquis -HTN -HLD Plan: Continues to improve, change to PO torsemide daily Change to PO prednisone with slow taper. Atypical chest pain on 04/19, EKG unchanged, no current ACS concerns, monitor for now. CT chest results noted. Hb at baseline. Continue eliquis Continue atenolol/nifedipine/statin. Dispo to SNF in 24 hours if continues to improve and disposition arranged. PT eval and ambulatory oxygen needs noted. Encourage OOB. Plan discussed with patient in detail, all questions answered.
[2018-04-22 14:20] VITALS: BP 137/77; PULSE 88; TEMP 98.2
[2018-04-22] MEDS ORDERED: ATENOLOL 25 MG TABLET (FP) PO SCH (22:00)
[2018-04-23] MEDS ORDERED: TORSEMIDE 20 MG TABLET (FP) PO SCH (10:00)
[2018-04-23] MEDS ORDERED: predniSONE 20 MG TABLET (UD) PO SCH (10:00)
--- NOTE | 2018-04-23 21:13 | DS ---
Physical Exam: SUBJECTIVE: Patient seen and examined at bedside. Patient feels her SOB has improved. Denies fevers, chills, Chest pain, nausea, vomiting. No Acute overnight events as per nursing. OBJECTIVE: Vital Signs Period Temp Pulse Resp BP Sys/Garza Pulse Ox Last 24 Hr 97.8 F-98.5 F 75-90 18-20 95-131/57-88 Intake & Output 04/19/18 04/20/18 04/21/18 04/22/18 23:59 23:59 23:59 23:59 Intake Total 880 870 Output Total 1150 400 400 Balance -270 470 -400 Weight 182 lb 8 oz 179 lb 8 oz 177 lb 8 oz 171 lb 6 oz PHYSICAL EXAM GENERAL: The patient is awake, alert, and fully oriented, in no acute distress. NECK: +JVD LUNGS: Airway entry improved, CTA b/l HEART: Regular rate and rhythm, S1, S2 without murmur, rub or gallop. ABDOMEN: Soft, nontender, nondistended, normoactive bowel sounds EXTREMITIES: 2+ pitting edema in lower extremities bilaterally LABS Laboratory Results - last 24 hr 04/22/18 06:50 Sodium 142 Potassium 3.2 L Chloride 93 L Carbon Dioxide 42 H Anion Gap 7 L BUN 27 H Creatinine 0.7 Creat Clearance w eGFR > 60 Random Glucose 138 H Calcium 9.0 Active Medications Albuterol/Ipratropium (Duoneb -) 1 amp NEB Q3H PRN PRN Reason: SHORTNESS OF BREATH Last Admin: 04/20/18 15:05 Dose: 1 amp Albuterol/Ipratropium (Duoneb -) 1 amp NEB RQID [facility] Last Admin: 04/21/18 20:46 Dose: Not Given Apixaban (Eliquis -) 5 mg PO BID [facility] Last Admin: 04/22/18 09:47 Dose: 5 mg Atenolol (Tenormin -) 25 mg PO BID [facility] Atorvastatin Calcium (Lipitor -) 20 mg PO [facility] Last Admin: 04/21/18 22:52 Dose: 20 mg Ferrous Sulfate (Feosol -) 325 mg PO DAILY [facility] Last Admin: 04/22/18 09:47 Dose: 325 mg Melatonin (Melatonin) 1 mg PO [facility] Last Admin: 04/21/18 22:51 Dose: 1 mg Nifedipine (Procardia Xl -) 90 mg PO DAILY [facility] Last Admin: 04/22/18 09:47 Dose: 90 mg Potassium Chloride (Potassium Chloride Oral Liquid) 40 meq PO DAILY [facility] Last Admin: 04/22/18 09:46 Dose: 40 meq Prednisone (Deltasone -) 60 mg PO DAILY [facility] Fluticasone/Salmeterol (Advair 100mcg/50mcg -) 1 puff IH BID [facility] Last Admin: 04/22/18 10:59 Dose: 1 puff Torsemide (Demadex -) 80 mg PO DAILY [facility] IMAGING: Echo: RA and RV dilation, moderate TR and severe pulmonary HTN CT Chest: No CT evidence of pulmonary embolism. HOSPITAL COURSE: Date of Admission:04/16/18 Date of Discharge: 04/23/18 PreHospital course as per Dr. Josemanuel Penaloza 87 y/o female from [facility] presents with difficulty breathing that began yesterday. Admits gradual onset with impending sense of doom as she was laying in bed. Increasing oxygen via nasal cannula to 3L was palliative in nursing facility. She denies provocative features. Admits to decreased appetite and constipation with hard stools. Denies Hematochezia, hematuria. Denies: Fevers, chills, cough, nausea, vomiting, diarrhea, fall, loss of consciousness Hospital course Patient was admitted on 04/16 for Acute on chronic diastolic CHF and Acute COPD exacerbation. Her BNP on admission was 3098. In the ED, she was given IV Lasix, IV Methylprednisone, Duoneb and Ventolin. Cardiology and Pulmonology were consulted. An Echocardiogram revealed evidence of RA and RV dilation, moderate TR and severe pulmonary HTN. Her D-Dimer was elevated, and a subsequent CT Chest revealed No evidence of pulmonary embolism. Patient continued on IV Solumederol, Inhaled bronchodilators and IV Lasix. Patient experienced some chest pressure, and ACS was ruled out with No EKG Changes and negative Troponins. Her IV Lasix was changed to PO Torsemide and her IV Solumederol was changed to a PO Prednisone slow taper. Physical therapy evaluated the patient for her ambulatory oxygen needs, and she was discharged to a ch[facility] facility. Patient will need to follow up with pulmonology as an outpatient to discuss a possible sleep screen. Patient will also need to follow up with cardiology outpatient for volume assessment and diuretic titration. She will also need repeat labs (BMP) within 3 days of discharge. Minutes to complete discharge: 40 Discharge Summary Reason For Visit: ACUTE ON CHRONIC CHF HYPOXIA Condition: Stable - Instructions Diet, Activity, Other Instructions: The following medications were added Torsemide 80mg daily Prednisone taper as follows 60 mg daily on 04/23/18, 04/24, 04/25, 04/26 50 mg daily on 04/27, 04/28, 04/29, 04/30 40 mg daily on 05/01, 05/02, 05/03, 05/04 30 mg daily on 05/05, 05/06, 05/07, 05/08 20 mg daily on 05/09, 05/10, 05/11, 05/12 10 mg daily on 05/13, 05/14, 05/15, 05/16, then off The following medications were changed Atenolol was increased to 25mg twice a day The following medications were discontinued Lasix Please monitor daily weights and call a physician if their is more than 3lb gain in 2 days BMP in one week PCP in one week Call your pipe chipper and crm consultant for follow up in 1-2 weeks Continue home oxygen 2-3 L continuous as before. Please return if you experience any concerning symptoms including shortness of breath, chest pain, fevers, dizziness or new concerns, call 911 or come to ED. Referrals: Gerald Nicole MD [Staff Physician] - Gustavo Mendez MD [Staff Physician] - Disposition: ASSISTED FACILITY - Home Medications Comprehensive Discharge Medication List: Ambulatory Orders Apixaban [Eliquis] 5 mg PO BID 04/16/18 Atorvastatin Ca [Lipitor] 20 mg PO HS 04/16/18 Escitalopram Oxalate [Lexapro -] 20 mg PO DAILY 04/16/18 Folic Acid 1 mg PO DAILY 04/16/18 Fluticasone/Salmeterol [Airduo Respiclick 232-14 Mcg] 1 puff NEB BID 04/17/18 Ipratropium Otho [Atrovent Hfa] 1 neb NEB Q4H PRN 04/17/18 Nifedipine [Nifedipine ER] 1 tablet PO DAILY 04/17/18 Sennosides/Docusate Sodium [Docusate Sodium-Senna Tablet] 1 tablet PO BID Atenolol [Tenormin -] 25 mg PO BID tablet 04/22/18 Ferrous Sulfate [Feosol] 325 mg PO DAILY ud 04/22/18 Prednisone 10 mg PO ASDIR 24 Days #84 tablet 04/22/18 Torsemide [Demadex -] 80 mg PO DAILY tablet 04/22/18 This patient is new to me today: No Emergency Visit: No Critical Care patient: No - Discharge Referral Referred to [facility] No
== END 2018-04-22 18:00 | DRG 291 ==
LOC: JER 18:24 → JERBED 21:59 → J4W 04-17 00:12
PROVIDERS: ADMIT Internal Medicine; ATTEND Hospitalist
DX: I11.0 Hypertensive heart disease with heart failure (principal); J96.22 Acute and chronic respiratory failure with hypercapnia; J44.1 Chronic obstructive pulmonary disease with (acute) exacerbation; N17.9 Acute kidney failure, unspecified; J98.11 Atelectasis; D64.9 Anemia, unspecified; I50.33 Acute on chronic diastolic (congestive) heart failure; H40.9 Unspecified glaucoma; D86.9 Sarcoidosis, unspecified; I48.2 Chronic atrial fibrillation; I07.1 Rheumatic tricuspid insufficiency; E78.5 Hyperlipidemia, unspecified; I27.81 Cor pulmonale (chronic); I25.10 Atherosclerotic heart disease of native coronary artery without angina pectoris; G43.909 Migraine, unspecified, not intractable, without status migrainosus; I48.0 Paroxysmal atrial fibrillation; R42 Dizziness and giddiness; I27.20 Pulmonary hypertension, unspecified; J44.9 Chronic obstructive pulmonary disease, unspecified; R01.1 Cardiac murmur, unspecified; Z99.81 Dependence on supplemental oxygen
CPT/HCPCS: 36415; 36600; 71045-TC-FY; 71260-TC; 80048; 80053; 81003; 81015; 82550; 82728; 82803; 82962; 83540; 83550; 83735; 83880; 84100; 84466; 84484; 85025; 85379; 87040; 87086; 93005; 93010; 93306-TC; 94640; 97116-GP; 97161-GP; 99283-25; J7620

== ENCOUNTER 2018-06-19 20:41 | Inpatient (IN) | payer OTHER ==
[2018-06-19] MEDS ORDERED: ALBUTEROL SO4 2.5/IPRATROPIUM 0.5 INH SOL 3 ML VIAL.NEB. NEB ONE ×2 (21:46→22:03)
[2018-06-19 22:26] LABS: BASO % 1.5 % (0-2.0); EOS % 3.6 % (0-4.5); HEMATOCRIT 32.2 % (32.4-45.2); HEMOGLOBIN 9.9 GM/dL (10.7-15.3); LYMPH % 39.1 % (8-40); MCH 20.6 pg (25.7-33.7); MCHC 30.8 g/dl (32.0-36.0); MEAN CELL VOLUME 66.8 fl (80-96); MEAN PLT VOLUME 8.3 fl (7.5-11.1); MONO % 14.1 % (3.8-10.2); NEUT % 41.7 % (42.8-82.8); PLATELET COUNT 204 K/MM3 (134-434); RBC 4.82 M/mm3 (3.60-5.2); RDW 19.2 % (11.6-15.6); WHITE BLOOD COUNT 5.8 K/mm3 (4.0-10.0)
--- NOTE | 2018-06-19 22:31 | PDOC ---
History of Present Illness - General Chief Complaint: Chest Pain Stated Complaint: CHEST PAIN Time Seen by Provider: 06/19/18 21:02 History Source: Patient, Halfway Records, Old Records Exam Limitations: No Limitations - History of Present Illness Initial Comments: 87 y/o female presenting to [facility] ER via ambulance from [facility] complaining of abdominal pain for the past week with chronic shortness of breath. Pt reports pain is worse in epigastric region without radiation to chest , neck, or back. Endorses chronic constipation; last BM yesterday, described as hard and required a lot of straining. Is prescribed Senna but reports it has provided little relief. No nausea/vomiting. She further reports decreased appetite and poor attitude this week. Pt was discharged from this facility on 23 April 2018 for acute diastolic CHF exacerbation and COPD exacerbation. Endorses SOB with exertion as chronic and unchanged. On 2lpm oxygen via nasal cannula chronically; has not required additional increase in flow. Pt denies recent weight gain, orthopnea, paroxysmal nocturnal dyspnea, or welling to lower extremity. PCP: Dr. Stephenson PMH: Diastolic CHF, Afib on Eliquis, COPD, Sarcoidosis, HTN, HLD Past History - Past Medical History Allergies/Adverse Reactions: Allergies Allergy/AdvReac Type Severity Reaction Status Date / Time No Known Allergies Allergy Verified 06/19/18 21:10 Home Medications: Ambulatory Orders Apixaban [Eliquis] 5 mg PO BID 04/16/18 Atorvastatin Ca [Lipitor] 20 mg PO HS 04/16/18 Escitalopram Oxalate [Lexapro -] 20 mg PO DAILY 04/16/18 Folic Acid 1 mg PO DAILY 04/16/18 Fluticasone/Salmeterol [Airduo Respiclick 232-14 Mcg] 1 puff NEB BID 04/17/18 Ipratropium Orrick [Atrovent Hfa] 1 neb NEB Q4H PRN 04/17/18 Nifedipine [Nifedipine ER] 1 tablet PO DAILY 04/17/18 Sennosides/Docusate Sodium [Docusate Sodium-Senna Tablet] 1 tablet PO BID Atenolol [Tenormin -] 25 mg PO BID tablet 04/22/18 Ferrous Sulfate [Feosol] 325 mg PO DAILY ud 04/22/18 Prednisone 10 mg PO ASDIR 24 Days #84 tablet 04/22/18 Torsemide [Demadex -] 80 mg PO DAILY tablet 04/22/18 Anemia: Yes (Pernicious) Asthma: Yes Cancer: No Cardiac Disorders: Yes (heart murmur) CVA: No COPD: Yes CHF: No Dementia: No Diabetes: No GI Disorders: No Disorders: No HTN: Yes Hypercholesterolemia: Yes Liver Disease: No Psychiatric Problems: Yes (ANXIETY.) Seizures: No Thyroid Disease: No - Surgical History Abdominal Surgery: Yes (abdominal) Appendectomy: No Cardiac Surgery: No Cholecystectomy: Yes Lung Surgery: No (PT DENIES) Neurologic Surgery: No Orthopedic Surgery: Yes (cervical spine/hardware) - Immunization History Immunization Up to Date: No - Suicide/Smoking/Psychosocial Hx Smoking Status: No Smoking History: Never smoked Years of Tobacco Use: 0 Have you smoked in the past 12 months: No Number of Cigarettes Smoked Daily: 0 Information on smoking cessation initiated: No Hx Alcohol Use: No Drug/Substance Use Hx: No Substance Use Type: None Hx Substance Use Treatment: No Review of Systems - Review of Systems Able to Perform ROS?: Yes Is the patient limited Luxembourgish proficient: No Constitutional: No: Chills, Diaphoresis, Fever HEENTM: No: Recent change in vision, Difficulty Swallowing Respiratory: Yes: See HPI, SOB with Exertion, Wheezing. No: Cough, Orthopnea Cardiac (ROS): No: Chest Pain, Palpitations, Syncope ABD/GI: Yes: Abdominal Distended, Constipated, Poor Appetite. No: Abd. Pain w/ defecation, Diarrhea : No: Burning, Dysuria, Frequency, Hematuria Integumentary: No: Rash Hematologic/Lymphatic: No: Easy Bleeding, Easy Bruising *Physical Exam - Vital Signs Last Vital Signs Temp Pulse Resp BP Pulse Ox 99.6 F 86 18 121/73 97 06/19/18 21:00 06/19/18 21:00 06/19/18 21:00 06/19/18 21:00 06/19/18 21:00 - Physical Exam Comments: Constitutional: Non, toxic female in no acute life threat. Found semi-fowlers on hospital bed. Alert and oriented x4. Answered all questions appropriately and completely. HEENT: Normocephalic. No obvious external signs of trauma. Conjunctiva moist and not injected. Hearing grossly normal. No nasal discharge. Oral cavity and pharynx normal. No inflammation, swelling, exudate, or lesions. Neck is supple, trachea is midline. No JVD. Cardiovascular: Irregularly irregular rate and rhythm. No tachycardia. No murmur , rubs, clicks, or gallops. Peripheral pulses: Radial pulses full. Respiratory: Pt on 2 LPM of oxygen via nasal cannula. Breathing unlabored but mildly tachypnea with pauses for breath while speaking. Equal chest rise and fall. End respiratory wheeze without rhonchi, stridor, or cough. Gastrointestinal: abdomen is mildly distended diffusely with subjective tenderness in epigastric region (no guarding or rebound). No pulsatile masses. No overlying skin lesions or obvious signs of trauma. Neuro: Alert and oriented. Moving all four extremities spontaneously. Skin: Warm, dry, and intact. No bruising, rashes, or other lesions. : No CVA tenderness. Psych: Affect: withdrawn, downtrodden gaze without meeting eye contact. Mood: depressed ED Treatment Course - LABORATORY CBC & Chemistry Diagram: 06/19/18 22:15 06/19/18 22:15 - RADIOLOGY Radiology Studies Ordered: Category Date Time Status CHEST X-RAY PORTABLE* [RAD] Stat Radiology 06/19/18 21:45 Taken - Medications Given in the ED: ED Medications Discontinued Medications Generic Name Dose Route Start Last Admin Trade Name Freq PRN Reason Stop Dose Admin Albuterol/Ipratropium 3 amp 06/19/18 21:46 06/19/18 21:50 Duoneb - NEB 06/19/18 21:47 3 amp ONCE ONE Administration Medical Decision Making - Medical Decision Making *Reviewed nursing notes and prior visit documentation. 87 y/o female presenting with abdominal pain. End respiratory wheeze noted on exam. Afebrile. Vitals unremarkable for hypotension or tachycardia. Suspect mild COPD exacerbation with constipation. Low suspicion for acute CHF exacerbation, ACS, SBO, or metabolic derangement. Will obtain CBC, CMP, Troponin , Calcium, BNP, CXR, and EKG. Will administer Duoneb for breathing. CXR revealed enlarged cardiac silhouette, no blunting of R costophrenic angle, unable to evaluate L as it is obscured by cardiac silhouette. No infiltrates or consolidations. Appears unchanged from previous image dated 19 April 2018, per my read. On re-exam, pt states her breathing has improved. Auscultation revealed improved end-expiratory wheeze. Reviewed home respiratory medication list with pt, who reports she is not using her Duonebs q4h as prescribed; says the facility workers do not always give medication as prescribed. CBC unremarkable. CMP unremarkable for electrolyte derangement or LFT elevation. Troponin not elevated. BNP elevated. Trended upward from last in April 2018. Ordered Furosemide and Methylprednisolone. Discussed results abnormal BNP results with pt. Expressed verbal understanding and agreement with plan to admit for observation. 23:26 Microblog sent to [facility] Hospitalist Team for admission for COPD exacerbation with elevated BNP. 06/20/18 00:00 Telephone consult with resident Dr. Nur who agrees to admit pt to med/surg on observation status. *DC/Admit/Observation/Transfer Diagnosis at time of Disposition: Elevated brain natriuretic peptide (BNP) level COPD (chronic obstructive pulmonary disease) Qualifiers: COPD type: COPD with acute exacerbation Qualified Code(s): J44.1 - Chronic obstructive pulmonary disease with (acute) exacerbation - Discharge Dispostion Condition at time of disposition: Fair Decision to Admit order: Yes - Referrals - Patient Instructions - Post Discharge Activity
[2018-06-19 22:52] LABS: ALBUMIN 3.3 g/dl (3.4-5.0); ANION GAP 10 MMOL/L (8-16); BILIRUBIN,TOTAL 0.8 mg/dL (0.2-1.0); BLOOD UREA NITROGEN 12 mg/dL (7-18); CALCIUM 8.8 mg/dL (8.5-10.1); CHLORIDE 102 mmol/L (98-107); CO2 31 mmol/L (21-32); CREATININE 0.9 mg/dL (0.55-1.02); GLUCOSE,RANDOM 96 mg/dL (74-106); POTASSIUM 3.9 mmol/L (3.5-5.1); SGOT/AST 20 U/L (15-37); SGPT/ALT 13 U/L (12-78); SODIUM 143 mmol/L (136-145); TOT PROT 7.2 g/dl (6.4-8.2)
[2018-06-19 22:54] LABS: ALK PHOS 81 U/L (45-117)
[2018-06-19 23:09] LABS: ANISOCYTOSIS 2+; MACROCYTOSIS 1+
[2018-06-19 23:15] LABS: PLATELET ESTIMATE ADEQUATE
[2018-06-19] MEDS ORDERED: methylPREDNISolone NA SUCC 125 MG/2 ML VIAL IVPUSH ONE (23:24)
--- NOTE | 2018-06-19 23:24 | PDOC ---
Attending Attestation - Resident Resident Name: Neno Doe - ED Attending Attestation I have performed the following: I have examined & evaluated the patient, The case was reviewed & discussed with the resident, I agree w/resident's findings & plan, Exceptions are as noted - HPI HPI: 06/19/18 23:20 87 yo female BIBA from nursing facility for shortness of breath head ncat neck supple lungs + exp wheezing,scant scattered rales cvs irregular, irregular s1s2 abd no rebound ext minimal pitting edema skin warm and dry psych appropriate neuro alert and conversant,moving al extremities - Physicial Exam PE: 06/20/18 01:43 please see above for physical exam - Medical Decision Making 06/19/18 23:24 pt with PMH afib,copd,chf ekg is rate controlled afib cxr CM,congestion negative troponin bnp>4500 IMP copd,chf plan bronchodilators,steroids,lasix
[2018-06-19] MEDS ORDERED: methylPREDNISolone NA SUCC 125 MG/2 ML VIAL ONE (23:31)
--- NOTE | 2018-06-19 23:38 | PN ---
Teaching Attending Note Name of Resident: Dara Cuellar ATTENDING PHYSICIAN STATEMENT I saw and evaluated the patient. I reviewed the resident's note and discussed the case with the resident. I agree with the resident's findings and plan as documented. SUBJECTIVE: Patient is an 87 year old woman from [facility] with PMH of afib(on eliquis), sarcoidosis, COPD on home O2, diastolic CHF, HTN, pulmonary hypertenison, and dyslipidemia who presents with complaint of abdominal pain for the past week with chronic shortness of breath. She reports pain is worse in epigastric region without radiation to chest, neck, or back. Has chronic constipation; last BM yesterday, described as hard and required a lot of straining. Is prescribed Senna but reports it has provided little relief. No nausea/vomiting. She further reports decreased appetite and poor attitude this week. She was discharged from this facility on 23 April 2018 for acute diastolic CHF exacerbation and COPD exacerbation. Has chronic SOB with exertion which is unchanged. On 2 LPM oxygen via nasal cannula chronically; has not required increase in flow. Denies recent weight gain, orthopnea, paroxysmal nocturnal dyspnea, or swelling to lower extremity. OBJECTIVE: Alert Vital Signs Period Temp Pulse Resp BP Sys/Garza Pulse Ox Last 24 Hr 98.3 F-99.6 F 86-87 18-19 121-121/73-73 97-98 HEENT: No Jaundice, eye redness or discharge, PERRLA, EOMI. Normocephalic, atraumatic. External ears are normal and hearing is grossly intact. No nasal discharge. Neck: Supple, nontender. No palpable adenopathy or thyromegaly. No JVD Chest: Good effort. End expiratory wheezing. Clear to auscultation and percussion. Heart: Regular. No S3, rub or murmur Abdomen: Not distended, soft, epigastric tenderness; no HSM. No rebound or guarding. Normoactive bowel sounds. Ext: Peripheral pulses intact. No leg edema. Skin: Warm and dry. No petechiae, rash or ecchymosis. Neuro: Alert. Oriented x3. CN 2-12 grossly intact. Sensation grossly intact in all four extremities and DTR are symmetric. Current Medications Generic Name Dose Route Start Last Admin Trade Name Freq PRN Reason Stop Dose Admin Furosemide 20 mg 06/20/18 10:00 Lasix Injection - IVPUSH DAILY [facility] Home Medications Medication Instructions Recorded Apixaban [Eliquis] 5 mg PO BID 04/16/18 Atorvastatin Ca [Lipitor] 20 mg PO HS 04/16/18 Escitalopram Oxalate [Lexapro -] 20 mg PO DAILY 04/16/18 Folic Acid 1 mg PO DAILY 04/16/18 Fluticasone/Salmeterol [Airduo 1 puff NEB BID 04/17/18 Respiclick [id number] Mcg] Ipratropium [place] [Atrovent Hfa] 1 neb NEB Q4H PRN 04/17/18 Nifedipine [Nifedipine ER] 1 tablet PO DAILY 04/17/18 Sennosides/Docusate Sodium 1 tablet PO BID 04/17/18 [Docusate Sodium-Senna Tablet] Atenolol [Tenormin -] 25 mg PO BID tablet 04/22/18 Ferrous Sulfate [Feosol] 325 mg PO DAILY ud 04/22/18 Prednisone 10 mg PO ASDIR 24 Days #84 tablet 04/22/18 Torsemide [Demadex -] 80 mg PO DAILY tablet 04/22/18 Abnormal Lab Results 06/19/18 06/19/18 06/19/18 22:15 22:15 22:15 Hgb 9.9 L Hct 32.2 L MCV 66.8 L MCH 20.6 L MCHC 30.8 L RDW 19.2 H Neutrophils % 41.7 L Monocytes % 14.1 H B-Natriuretic Peptide 4597.86 H Albumin 3.3 L ASSESSMENT AND PLAN: 1. Abdominal pain - Etiology unclear. Will get abd/pelvic CT to rule out bowel obstruction or fecal impaction. Has COPD, pulmonary hypertension as well as right ventricular failure. Will treat her for COPD "exacerbation", though her respiratory status looks to be at her baseline. Will give IV solumedrol, duoneb , spiriva and symbicort. Consult Pulmonary to advise on the best out patient COPD drug regimen for her. Continue nasal cannula oxygen. 2. Low MCV Anemia - Needs basic anemia work up including serial stool guaiacs, reticulocyte count and iron studies. Consult GI for colonoscopy. 3. Obesity - Will provide patient all the necessary assistance , counseling and positive reinforcement to facilitate weight loss. Consult soap slabber. 4. Afib - Rate controlled and on Eliquis. 5. DVT prophylaxis - On Eliquis 6. Advance directives - Full code
[2018-06-20] MEDS ORDERED: PANTOPRAZOLE 40 MG TABLET (FP) PO ONE (01:15)
[2018-06-20] MEDS: ALBUTEROL SO4 2.5/IPRATROPIUM 0.5 INH SOL 3 ML VIAL.NEB. NEB SCH ×4 (01:30→13:50)
--- NOTE | 2018-06-20 01:37 | HP ---
CHIEF COMPLAINT: shortness of breath and epigastric pain PCP: HISTORY OF PRESENT ILLNESS: 87 y/o female with PMH of afib (rate controlled on eliquis), CHF, COPD ( on 2L home o2), HTN, pulmonary HTN, presents to the ED with worsening dyspnea in addition to epigastric pain. In regard to the dyspnea, patient states that for the past week or so she has been having a harder time breathing. She states that she seems to notice her breathing is worse when she is sitting down doing nothing as opposed to when she is walking with her walker around her apt. She also feels that her breathing is worse at night, which seems to be chronic. As for the epigastric pain, she describes it more as a feeling of discomfort- she denies any N/V or diarrhea but it is very uncomfortable. She is noted to have a history of chronic constipation. She has a history of severe pulmonary hypertension, her last echo was this past April which showed, an LV EF% 60-65, no regional wall motion abnormalities, mild MR mild TR. ER course was notable for: (1) CXR showed cardiomegaly but no infiltrates or consolidation (2)patient was given duonebs and solumedrol (3) Recent Travel: none PAST MEDICAL HISTORY: see above PAST SURGICAL HISTORY: spinal surgery 8 years ago Social History: Smoking: denies any history Alcohol: no alcohol use Drugs: no drug use Family History: Allergies No Known Allergies Allergy (Verified 06/19/18 21:10) HOME MEDICATIONS: Home Medications Medication Instructions Recorded Apixaban [Eliquis] 5 mg PO BID 04/16/18 Atorvastatin Ca [Lipitor] 20 mg PO HS 04/16/18 Escitalopram Oxalate [Lexapro -] 20 mg PO DAILY 04/16/18 Folic Acid 1 mg PO DAILY 04/16/18 Fluticasone/Salmeterol [Airduo 1 puff NEB BID 04/17/18 Respiclick 232-14 Mcg] Ipratropium [place] [Atrovent Hfa] 1 neb NEB Q4H PRN 04/17/18 Nifedipine [Nifedipine ER] 1 tablet PO DAILY 04/17/18 Sennosides/Docusate Sodium 1 tablet PO BID 04/17/18 [Docusate Sodium-Senna Tablet] Atenolol [Tenormin -] 25 mg PO BID tablet 04/22/18 Ferrous Sulfate [Feosol] 325 mg PO DAILY ud 04/22/18 Prednisone 10 mg PO ASDIR 24 Days #84 tablet 04/22/18 Torsemide [Demadex -] 80 mg PO DAILY tablet 04/22/18 REVIEW OF SYSTEMS CONSTITUTIONAL: Absent: fever, chills, diaphoresis, generalized weakness, malaise, loss of appetite, weight change HEENT: Absent: rhinorrhea, nasal congestion, throat pain, throat swelling, difficulty swallowing, mouth swelling, ear pain, eye pain, visual changes CARDIOVASCULAR: Absent: chest pain, syncope, palpitations, irregular heart rate, lightheadedness , peripheral edema RESPIRATORY: Present:shortness of breath, dyspnea with exertion, Absent: cough, orthopnea, wheezing, stridor, hemoptysis GASTROINTESTINAL: Present: abdominal pain, constipation, epigastric pain Absent: abdominal distension, nausea, vomiting, diarrhea, melena, hematochezia GENITOURINARY: Absent: dysuria, frequency, urgency, hesitancy, hematuria, flank pain, genital pain MUSCULOSKELETAL: Absent: myalgia, arthralgia, joint swelling, back pain, neck pain SKIN: Absent: rash, itching, pallor HEMATOLOGIC/IMMUNOLOGIC: Absent: easy bleeding, easy bruising, lymphadenopathy, frequent infections ENDOCRINE: Absent: unexplained weight gain, unexplained weight loss, heat intolerance, cold intolerance NEUROLOGIC: Absent: headache, focal weakness or paresthesias, dizziness, unsteady gait, seizure, mental status changes, bladder or bowel incontinence PSYCHIATRIC: Absent: anxiety, depression, suicidal or homicidal ideation, hallucinations. PHYSICAL EXAMINATION Vital Signs - 24 hr 06/19/18 06/19/18 06/19/18 21:00 22:25 23:15 Temperature 99.6 F 98.3 F Pulse Rate 86 87 Respiratory 18 19 Rate Blood Pressure 121/73 121/73 O2 Sat by Pulse 97 98 98 Oximetry (%) GENERAL: Awake, alert, and fully oriented, in slight acute distress. NECK: no JVD appreciated LUNGS: expiratory wheezes heard throughout all lung esparza; on nasal cannula HEART: irregularly irregular , normal S1 and S2 without murmur, rub or gallop. ABDOMEN: Soft, slight tenderness to palpation in epigastric region. MUSCULOSKELETAL: Normal range of motion at all joints. No bony deformities or tenderness. No CVA tenderness. EXTREMITIES: warm; well perfused, no clubbing, cyanosis, or LE edema NEUROLOGICAL: Cranial nerves II-XII intact. Normal speech. Normal gait. PSYCHIATRIC: Cooperative. Good eye contact. Appropriate mood and affect. SKIN: Warm, dry, normal turgor, no rashes or lesions noted, normal capillary refill. Laboratory Results - last 24 hr 06/19/18 06/19/18 06/19/18 22:15 22:15 22:15 WBC 5.8 RBC 4.82 Hgb 9.9 L Hct 32.2 L MCV 66.8 L MCH 20.6 L MCHC 30.8 L RDW 19.2 H Plt Count 204 D MPV 8.3 Absolute Neuts (auto) 2.4 Neutrophils % 41.7 L Lymphocytes % 39.1 Monocytes % 14.1 H Eosinophils % 3.6 D Basophils % 1.5 Nucleated RBC % 0 Hypochromia 3+ Platelet Estimate Adequate Platelet Comment No clumping noted Anisocytosis 2+ Microcytosis 1+ Macrocytosis 1+ Sodium 143 Potassium 3.9 Chloride 102 Carbon Dioxide 31 Anion Gap 10 BUN 12 Creatinine 0.9 Creat Clearance w eGFR 59.09 Random Glucose 96 Calcium 8.8 9.0 Total Bilirubin 0.8 AST 20 ALT 13 Alkaline Phosphatase 81 Troponin I < 0.02 B-Natriuretic Peptide Total Protein 7.2 Albumin 3.3 L 06/19/18 22:15 WBC RBC Hgb Hct MCV MCH MCHC RDW Plt Count MPV Absolute Neuts (auto) Neutrophils % Lymphocytes % Monocytes % Eosinophils % Basophils % Nucleated RBC % Hypochromia Platelet Estimate Platelet Comment Anisocytosis Microcytosis Macrocytosis Sodium Potassium Chloride Carbon Dioxide Anion Gap BUN Creatinine Creat Clearance w eGFR Random Glucose Calcium Total Bilirubin AST ALT Alkaline Phosphatase Troponin I B-Natriuretic Peptide 4597.86 H Total Protein Albumin ASSESSMENT/PLAN: 87 y/o female with PMH of afib, CHF, COPD, HTN presents to the ED with worsening shortness of breath in addition to epigastric pain. #1: Dyspnea likely 2/2 early COPD exacerbation -IV solumedrol 60 q8H -duonebs standing q4 for first 24 hours -symbicort daily -spiriva -monitor o2 saturations -pulm consulted for further management for COPD as outpatient #2: epigastric pain possibly 2/2 overuse from accessory muscle breathing vs. ? gastritis vs. chronic constipation -CT ab/pelvis for further evaluation -Protonix -if fecal retention shown, will order enema -GI consulted #3: anemia Patients most recent Hgb is 9.9, seems to be near baseline from chart but no iron studies shown -FOBT -iron studies, retic count pending -GI consulted for need of possible colonoscopy? -monitor CBC #4: Afib -rate controlled on eliquis 5 daily #5: HTN -continue with atenolol 25 BID F/E/N: not on standing fluids replete electrolytes when necessary sodium-controlled diet DVT Prophylaxis: eliquis dispo: med surg Visit type - Emergency Visit Emergency Visit: Yes ED Registration Date: 06/20/18 Care time: The patient presented to the Emergency Department on the above date and was hospitalized for further evaluation of their emergent condition. - New Patient This patient is new to me today: Yes Date on this admission: 06/20/18 - Critical Care Critical Care patient: No Hospitalist Screening - Colonoscopy Questionnaire Colonoscopy Questionnaire: Colonoscopy Questionnaire - Patient: 50 - 75 years old and never had a screening colonoscopy: Unknown History of colon or rectal polyps, or CA: Unknown History of IBD, Crohn's disease or UC: Unknown History of abdominal radiation therapy as a child: Unknown - Relative: 1 with colon or rectal CA, or polyps at age 60 or younger: Unknown Colon or rectal CA diagnosed at age 45 or younger: Unknown Multiple relatives with colon or rectal CA: Unknown - Outcome: Screening Result: Negative Screen
[2018-06-20] MEDS ORDERED: PANTOPRAZOLE 40 MG TABLET (FP) ONE (03:08)
[2018-06-20] MEDS ORDERED: methylPREDNISolone NA SUCC 40 MG/1 ML VIAL ONE (03:09)
[2018-06-20] MEDS: BUDESONIDE/FORMETEROL FUMARATE 80/4.5 mcg INHALER IH SCH ×3 (03:18→21:24)
[2018-06-20] MEDS: methylPREDNISolone NA SUCC 40 MG/1 ML VIAL IVPUSH SCH ×3 (03:18→17:20)
[2018-06-20] MEDS ORDERED: ALBUTEROL SO4 0.042% IH SOL 1.25 MG/3 ML VIAL.NEB NEB ONE (06:38)
[2018-06-20 07:06] LABS: INR 1.69 (0.83-1.09); PROTHROMBIN TIME (PATIENT) 19.1 SEC (9.7-13.0)
[2018-06-20 07:13] LABS: ALBUMIN 3.2 g/dl (3.4-5.0); ANION GAP 8 MMOL/L (8-16); BLOOD UREA NITROGEN 13 mg/dL (7-18); CALCIUM 9.1 mg/dL (8.5-10.1); CHLORIDE 101 mmol/L (98-107); CO2 31 mmol/L (21-32); GLUCOSE,RANDOM 160 mg/dL (74-106); MAGNESIUM 2.1 mg/dL (1.8-2.4); PHOSPHOROUS 4.1 mg/dL (2.5-4.9); POTASSIUM 4.4 mmol/L (3.5-5.1); SGOT/AST 16 U/L (15-37); SGPT/ALT 14 U/L (12-78); SODIUM 140 mmol/L (136-145)
[2018-06-20 07:17] LABS: ALK PHOS 84 U/L (45-117); BILIRUBIN,TOTAL 0.8 mg/dL (0.2-1.0); TOT PROT 7.2 g/dl (6.4-8.2)
[2018-06-20 07:57] LABS: HEMATOCRIT 33.3 % (32.4-45.2); MCH 20.2 pg (25.7-33.7); MCHC 30.1 g/dl (32.0-36.0); MEAN CELL VOLUME 67.2 fl (80-96); MEAN PLT VOLUME 9.4 fl (7.5-11.1); PLATELET COUNT 183 K/MM3 (134-434); RBC 4.96 M/mm3 (3.60-5.2); RDW 19.7 % (11.6-15.6); WHITE BLOOD COUNT 4.3 K/mm3 (4.0-10.0)
[2018-06-20] MEDS ORDERED: PT OWN MED DRAWER 7, Y5N ONE ×6 (09:56→22:15)
[2018-06-20] MEDS ORDERED: FUROSEMIDE 40 MG/4 ML INJECTABLE VIAL IVPUSH SCH (10:00)
[2018-06-20] MEDS: PANTOPRAZOLE 20 MG TABLET (FP) PO SCH (10:01)
[2018-06-20] MEDS: ESCITALOPRAM OXALATE 10 MG TABLET (FP) PO SCH (10:01)
[2018-06-20] MEDS ORDERED: FUROSEMIDE 40 MG/4 ML INJECTABLE VIAL IVPUSH ONE (10:13)
[2018-06-20] MEDS: APIXABAN 5 MG TABLET PO SCH ×2 (11:44→21:25)
[2018-06-20] MEDS ORDERED: MAGNESIUM HYDROX 2400MG/30ML ORAL SUSPENSION 30 ML CUP PO PRN (13:19)
--- NOTE | 2018-06-20 13:19 | PN ---
Physical Exam: SUBJECTIVE: Patient seen and examined this AM. States she is still having some SOB though improved from yesterday. Pt decreased from 3L NC to 2L NC during rounds and maintained saturation well with no change in symptoms. Pt is also having abdominal pain which she says has been going on for months with chronic constipation. OBJECTIVE: Vital Signs Period Temp Pulse Resp BP Sys/Garza Pulse Ox Last 24 Hr 97.7 F-99.6 F 82-88 18-82 110-142/56-75 95-98 GENERAL: A&O, no acute distress HEAD: Normocephalic, atraumatic. EYES: PERRL, no scleral icterus EARS, NOSE, THROAT: oropharynx clear without exudates. Moist mucous membranes. NECK: supple without lymphadenopathy LUNGS: Mild expiratory wheezes noted, saturating well on 2L NC HEART: Regular rate and rhythm, normal S1 and S2 without murmur ABDOMEN: Soft, nontender to palpation, normoactive bowel sounds MUSCULOSKELETAL: No bony deformities or tenderness. EXTREMITIES: 2+ pulses, warm, well-perfused. No peripheral edema. NEUROLOGICAL: Cranial nerves II-XII grossly intact. Normal speech. PSYCHIATRIC: Cooperative. Good eye contact. Appropriate mood and affect. SKIN: Warm, dry, no rashes or lesions noted Laboratory Results - last 24 hr 06/19/18 06/19/18 06/19/18 22:15 22:15 22:15 WBC 5.8 RBC 4.82 Hgb 9.9 L Hct 32.2 L MCV 66.8 L MCH 20.6 L MCHC 30.8 L RDW 19.2 H Plt Count 204 D MPV 8.3 Absolute Neuts (auto) 2.4 Neutrophils % 41.7 L Lymphocytes % 39.1 Monocytes % 14.1 H Eosinophils % 3.6 D Basophils % 1.5 Nucleated RBC % 0 Hypochromia 3+ Platelet Estimate Adequate Platelet Comment No clumping noted Anisocytosis 2+ Microcytosis 1+ Macrocytosis 1+ Retic Count PT with INR INR Sodium 143 Potassium 3.9 Chloride 102 Carbon Dioxide 31 Anion Gap 10 BUN 12 Creatinine 0.9 Creat Clearance w eGFR 59.09 Random Glucose 96 Calcium 8.8 9.0 Phosphorus Magnesium Ferritin Total Bilirubin 0.8 AST 20 ALT 13 Alkaline Phosphatase 81 Troponin I < 0.02 B-Natriuretic Peptide Total Protein 7.2 Albumin 3.3 L 06/19/18 06/20/18 06/20/18 22:15 06:15 06:15 WBC 4.3 RBC 4.96 Hgb 10.0 L Hct 33.3 MCV 67.2 L MCH 20.2 L MCHC 30.1 L RDW 19.7 H Plt Count 183 MPV 9.4 D Absolute Neuts (auto) Neutrophils % Lymphocytes % Monocytes % Eosinophils % Basophils % Nucleated RBC % Hypochromia Platelet Estimate Platelet Comment Anisocytosis Microcytosis Macrocytosis Retic Count PT with INR 19.10 H INR 1.69 H Sodium Potassium Chloride Carbon Dioxide Anion Gap BUN Creatinine Creat Clearance w eGFR Random Glucose Calcium Phosphorus Magnesium Ferritin Total Bilirubin AST ALT Alkaline Phosphatase Troponin I B-Natriuretic Peptide 4597.86 H Total Protein Albumin 06/20/18 06/20/18 06:15 06:15 WBC RBC Hgb Hct MCV MCH MCHC RDW Plt Count MPV Absolute Neuts (auto) Neutrophils % Lymphocytes % Monocytes % Eosinophils % Basophils % Nucleated RBC % Hypochromia Platelet Estimate Platelet Comment Anisocytosis Microcytosis Macrocytosis Retic Count 1.50 D PT with INR INR Sodium 140 Potassium 4.4 Chloride 101 Carbon Dioxide 31 Anion Gap 8 BUN 13 Creatinine 1.0 Creat Clearance w eGFR 52.33 Random Glucose 160 H Calcium 9.1 Phosphorus 4.1 Magnesium 2.1 Ferritin 287.3 H Total Bilirubin 0.8 AST 16 ALT 14 Alkaline Phosphatase 84 Troponin I B-Natriuretic Peptide Total Protein 7.2 Albumin 3.2 L Active Medications Generic Name Dose Route Start Last Admin Trade Name Freq PRN Reason Stop Dose Admin Apixaban 5 mg 06/20/18 10:00 06/20/18 11:44 Eliquis - PO 5 mg BID LISA Administration Atorvastatin Calcium 20 mg 06/20/18 22:00 Lipitor - PO HS [facility] Budesonide/Formoterol Fumarate 2 puff 06/20/18 01:15 06/20/18 10:29 Symbicort 80/4.5mcg - IH 2 puff BID LISA Administration Diltiazem HCl 120 mg 06/20/18 10:00 06/20/18 10:01 Cardizem Cd - PO 120 mg DAILY LISA Administration Escitalopram Oxalate 10 mg 06/20/18 10:00 06/20/18 10:01 Lexapro - PO 10 mg DAILY LISA Administration Furosemide 20 mg 06/20/18 10:00 06/20/18 09:59 Lasix Injection - IVPUSH 20 mg DAILY LSIA Administration Magnesium Hydroxide 30 ml 06/20/18 13:19 Milk Of Magnesia - PO PRN PRN CONSTIPATION Methylprednisolone Sodium Succinate 60 mg 06/20/18 02:00 06/20/18 10:00 Solu-Medrol - IVPUSH 60 mg Q8H-IV LISA Administration Pantoprazole Sodium 20 mg 06/20/18 10:00 06/20/18 10:01 Protonix - PO 20 mg DAILY LISA Administration Tiotropium [place] 2 puff 06/20/18 14:00 Spiriva Respimat IH DAILY LISA ASSESSMENT/PLAN: 87 yo female wtih PMH a-fib (on eliquis), sarcoidosis, COPD (on 2L NC), diastolic CHF, HTN, pulmonary HTN, and chronic constipation admitted for worsening SOB and Abdominal Pain. Acute on Chronic Respiratory Distress -likely fluid overloaded though possibly exacerbation of her COPD, though no infection suspected at this time -BNP 4597 -CXR noted with some congestion vs mild effusions -Lasix 40 mg IV Daily -SoluMedrol tapered down to 40 mg IV Q8 -Daily weights -Currently saturating well on 2L NC (baseline from home) Abdominal Pain -Likely secondary to chronic constipation -Pt says she usually has relief with MoM, will restart PRN -CT abdomen without oral or IV contrast: no acute pathologic findings -GI consult appreciated For upper GI series tomorrow Iron Deficiency Anemia -Pt with recent iron studies, iron studies from this admission currently pending -Pt is on PO Iron outpatient, though with chronic constipation, will hold for now -Venofer 200 mg IV once -H/H stable at , does not require transfusion Atrial Fibrillation -On eliquis 5 mg PO BID -HR currently well controlled < 110 Cardizem 120 mg PO Daily GERD -Protonix 20 mg PO Daily DVT Prophylaxis -On Eliquis 5 mg PO BID FEN -Fluids: none -Electrolytes: No electrolyte abnormalities, BMP in AM -Nutrition: Sodium controlled diet, NPO After Midnight Disposition Continue to monitor in Med/Surg Visit type - Emergency Visit Emergency Visit: Yes ED Registration Date: 06/20/18 Care time: The patient presented to the Emergency Department on the above date and was hospitalized for further evaluation of their emergent condition. - New Patient This patient is new to me today: Yes Date on this admission: 06/20/18 - Critical Care Critical Care patient: No
[2018-06-20] MEDS ORDERED: IRON SUCROSE INJECTION 200 MG in SODIUM CHLORIDE 90 ML IVPB ONE (13:23)
--- NOTE | 2018-06-20 13:46 | PN ---
Teaching Attending Note Name of Resident: Brennan Gifford ATTENDING PHYSICIAN STATEMENT I saw and evaluated the patient. I reviewed the resident's note and discussed the case with the resident. I agree with the resident's findings and plan as documented. SUBJECTIVE:states she feels much better today. her breathing has improved. recently completed steroid course 2 weeks ago. states she increased her home o2 to 3L and did not feel better which prompted her to the Er. denies Cp, SOB, fever, chills, N/V/C/D, orhtopnea does not weigh herself regularly OBJECTIVE: Last Vital Signs Temp Pulse Resp BP Pulse Ox 97.7 F 88 24 110/56 95 06/20/18 06:35 06/20/18 06:35 06/20/18 06:35 06/20/18 06:35 06/19/18 23:34 General NAD CV S1 S2 RRR +JVD lungs expiratory wheezing diffusely. no crackles extremiites no pedal edema ASSESSMENT AND PLAN: 87yo F wtih PMH afib on eliquis, sarcoidosis, COPD on 2L NC, diastolic CHF, pulmonary HTN and chronic constipation sent from [facility] [place] presented with abdominal pain and difficulty breathing 1. Abdominal pain- liekly due to intermittent constipation. last BM was 3 days ago. does not appear to be in any distress or concerned with abdomen at this time. tolerating diet. will f/u CT scan. place on bowel regimen to ensure regular BM 2. Acute on chronic hypoxic respiratory failure-feels this is more of acute on chronic volume overload than COPD exacerbation given congestion on exam and CXR and elevated BNP. will increase lasix to 40mg IV daily, titrate down steroids to 40mg Q8H and discuss with pulmonary if would benefit from short course of steroids. daily weights, Currently 94% on 2L NC which is home regimen 3. Iron def anemia- was recently started on iron supplements a week ago. possible not tolerating or worsening constipation. will give venofer while hospitalized. hgb stable with baseline. no indication for repeating iron studies this quickly. no indication for transfusion 4. afib on eliquis- cont rate control and eliquis 5. sarcoidosis 6. pulmonary HTN 7. DVT ppx- eliquis
--- NOTE | 2018-06-20 14:20 | CON.GI ---
Consult Consult Specialty:: GI: Dr. Dior covering for Dr. Burks who resumes care 06/21 Referred by:: Hospitalist Service Reason for Consultation:: Abdominal pain - History of Present Illness Chief Complaint: Shortness of breath History of Present Illness: 87F admitted from [place] for evaluation of shortness of breath. Asked to evaluate abdominal pain. Ms. Jim explains that she is mainly concerned with the shortness of breath that she experiences when she is sitting up. She states that she has lumps on her left side that huurt and feels "like a rubber band" sensation in the epigastrium. She denies dysphagia, odynophagia and there has been no N/V. She has a history of chronic constipation "since she was a child " and denies recent change in bowel habits. There has been no melena or rectal bleeding. She thinks she may have had a colonoscopy 8 or 9 years ago that was "OK". CT scan performed without PO or IV contrast was perfomred but not read as of yet. - History Source History Provided By: Patient, Medical Record - Past Medical History [employer]CE: Yes: Vertigo (intermittent) Cardio/Vascular: Yes: AFIB, CHF, HTN, Hyperlipdemia, Pulmonary Hypertension, Other (Sarcoidosis) Pulmonary: Yes: Asthma, COPD Renal/: Yes: Hematuria. No: Renal Calculi ...: No Psych: Yes: Depression - Past Surgical History Past Surgical History: Yes: Cholecystectomy, Hysterectomy - Alcohol/Substance Use Hx Alcohol Use: No History of Substance Use: reports: None - Smoking History Smoking history: Never smoked Have you smoked in the past 12 months: No Aproximately how many cigarettes per day: 0 - Social History Usual Living Arrangement: Other (most recently has been at [place], and since developing pain has been ambulating with ) History of Recent Travel: No Home Medications - Allergies Allergies/Adverse Reactions: Allergies Allergy/AdvReac Type Severity Reaction Status Date / Time No Known Allergies Allergy Verified 06/19/18 21:10 - Home Medications Home Medications: Ambulatory Orders Apixaban [Eliquis] 5 mg PO BID 04/16/18 Atorvastatin Ca [Lipitor] 20 mg PO HS 04/16/18 Escitalopram Oxalate [Lexapro -] 10 mg PO DAILY 04/16/18 Folic Acid 1 mg PO DAILY 04/16/18 Ipratropium [place] [Atrovent Hfa] 1 neb NEB Q4H PRN 04/17/18 Albuterol Sulfate [Proventil HFA Inhaler -] 1 - 2 inh PO QID PRN 06/20/18 Budesonide/Formeterol Fumarate [SYMBICORT 160/4.5mcg -] 1 inh PO BID 06/20/18 Diltiazem Cd [Cardizem Cd -] 120 mg PO DAILY 06/20/18 Furosemide [Lasix] 40 mg PO DAILY 06/20/18 Gabapentin [Neurontin] 200 mg PO TID 06/20/18 Lorazepam 0.5 mg PO Q8H PRN 06/20/18 Omeprazole 20 mg PO DAILY 06/20/18 traZODone HCL [Trazodone HCl] 50 mg PO DAILY 06/20/18 Family Disease History - Family Disease History Family Disease History: Heart Disease: Father, Mother, Other: Sister (Colon cancer) Review of Systems - Review of Systems Constitutional: denies: Fever, Unintentional Wgt. Loss Respiratory: reports: SOB, Wheezing Gastrointestinal: reports: Abdominal Pain, Constipation. denies: Diarrhea, Melena, Nausea, Rectal Bleeding Physical Exam-GI Vital Signs: Vital Signs P: checked at time of evaluation: 110 and irregular Constitutional: Yes: Calm Eyes: No: Sclera Icterus Cardiovascular: Yes: Tachycardia, Pulse Irregular Respiratory: Yes: Wheezes (bilateral expiratory wheezes) Gastrointestinal Inspection: Yes: Scars (faint healed trochar scars). No: Distention ...Auscultate: Yes: Normoactive Bowel Sounds ...Palpate: No: Hepatomegaly, Splenomegaly, Tenderness ...Percussion: No: Tympanitic ...Rectal Exam: Yes: Other (No external lesions, no masses, no fecal impaction, trace light brown stool guaiac negative.) Edema: Yes Edema: LLE: Trace, RLE: Trace Neurological: Yes: Alert (awake) Labs: CBC, BMP 06/20/18 06:15 06/20/18 06:15 INR, PTT INR 1.69 (0.83-1.09) H 06/20/18 06:15 Hepatic Panel Total Bilirubin 0.8 mg/dL (0.2-1.0) 06/20/18 06:15 AST 16 U/L (15-37) 06/20/18 06:15 ALT 14 U/L (12-78) 06/20/18 06:15 Alkaline Phosphatase 84 U/L (45-117) 06/20/18 06:15 Albumin 3.2 g/dl (3.4-5.0) L 06/20/18 06:15 Imaging - Results Cat Scan: Image Reviewed Problem List - Problems (1) Abdominal pain Assessment/Plan: Could not reproduce her abdominal pain complaints: Ordered upper GI series with esophagram follow-up CT scan report Advised Ms. Jim's nurse that Ms. Jim was in A. fib with RVR and to notify PMD Code(s): R10.9 - UNSPECIFIED ABDOMINAL PAIN
[2018-06-20] MEDS: TIOTROPIUM BROMIDE 2.5 MCG (SPIRIVA) RESPIMAT INHALER IH SCH (16:21)
--- NOTE | 2018-06-20 16:26 | PN ---
Progress Note (short form) - Note Progress Note: PULMONARY CONSULTATION DICTATED 06/20/18 IMP ACUTE ON CHRONIC HYPOXEMIC RESPIRATORY FAILURE ACUTE ON CHRONIC CHF SEVERE PULMONARY HTN AFIB ? COPD HTL HLD ABDOMINAL PAIN H/O ILIAC STENT PLAN IV LASIX INHALED BRONCHODILATORS O2 STEROIDS DAILY WT ELIQUIS DR ALBERT Problem List - Problems (1) Acute and chronic respiratory failure with hypoxia Code(s): J96.21 - ACUTE AND CHRONIC RESPIRATORY FAILURE WITH HYPOXIA (2) Atrial fibrillation Code(s): I48.91 - UNSPECIFIED ATRIAL FIBRILLATION Qualifiers: Atrial fibrillation type: permanent Qualified Code(s): I48.2 - Chronic atrial fibrillation (3) Abdominal pain Code(s): R10.9 - UNSPECIFIED ABDOMINAL PAIN (4) Elevated brain natriuretic peptide (BNP) level Code(s): R79.89 - OTHER SPECIFIED ABNORMAL FINDINGS OF BLOOD CHEMISTRY (5) CHF (congestive heart failure) Code(s): I50.9 - HEART FAILURE, UNSPECIFIED Qualifiers: Heart failure type: systolic Heart failure chronicity: acute Qualified Code(s): I50.21 - Acute systolic (congestive) heart failure (6) Coronary artery disease Code(s): I25.10 - ATHSCL HEART DISEASE OF [place] CORONARY ARTERY W/O ANG PCTRS Qualifiers: Coronary Disease-Associated Artery/Lesion type: [place] artery [place] vs. transplanted heart: [place] heart Associated angina: without angina Qualified Code(s): I25.10 - Atherosclerotic heart disease of [place] coronary artery without angina pectoris (7) Hypertension Code(s): I10 - ESSENTIAL (PRIMARY) HYPERTENSION Qualifiers: Hypertension type: essential hypertension Qualified Code(s): I10 - Essential (primary) hypertension (8) Pulmonary HTN Code(s): I27.20 - PULMONARY HYPERTENSION, UNSPECIFIED (9) Sarcoidosis Code(s): D86.9 - SARCOIDOSIS, UNSPECIFIED (10) Shortness of breath Code(s): R06.02 - SHORTNESS OF BREATH
--- NOTE | 2018-06-20 16:28 | EKG ---
Test Reason : Blood Pressure : / mmHG Vent. Rate : 080 BPM Atrial Rate : 277 BPM P-R Int : 000 ms QRS Dur : 088 ms QT Int : 430 ms P-R-T Axes : 000 -09 010 degrees QTc Int : 495 ms ATRIAL FIBRILLATION PROLONGED QT ABNORMAL ECG WHEN COMPARED WITH ECG OF 19-APR-2018 11:41, NO SIGNIFICANT CHANGE WAS FOUND Confirmed by Tony Medeiros ([id number]) on 06/20/2018 4:27:46 PM Referred By: Confirmed By:Tony Medeiros
--- NOTE | 2018-06-20 17:08 | CONS ---
DATE OF CONSULTATION: 06/20/2018 REFERRING PHYSICIAN: Denice Mariscal MD The patient is an 87-year-old female, known to me from previous hospitalization, past medical history of sarcoidosis diagnosed in 1985, atrial fibrillation, on anticoagulation, congestive heart failure, severe pulmonary hypertension, hyperlipidemia, arthritis, iliac stent, chronic hypoxemic respiratory failure, maintained on supplemental O2, possible COPD, although had not had any pulmonary function tests, admitted to [facility] on June 19 with complaint of 2 to 3 day history of increasing shortness of breath, dyspnea on exertion, mild nonproductive cough, as well as abdominal pain. The patient denied any nausea, vomiting or diaphoresis. She states that the pain was first in the epigastric region without any radiation. She denies any fevers, chills. Denies any hemoptysis. Denies any chest pain although complains of chest tightness. The patient is a nonsmoker. She denies any history of occupational exposure to chemicals or fumes. There is no history of recent travel. There is no history of hemoptysis. She was recently hospitalized in April at [facility] secondary to shortness of breath. At the time, she was treated with Lasix as well as steroids, with good clinical response. In April hospitalization, she underwent a CTA of the chest, which revealed no evidence of pulmonary emboli. Past medical history, again, includes sarcoid diagnosed in 1965, questionable COPD although the patient denies a history of asthma or tobacco use or occupational exposures, congestive heart failure, hypertension, hyperlipidemia, arthritis, iliac stent. REVIEW OF SYSTEMS: Positive for shortness of breath, positive cough, positive chest tightness. No fever, no chills, no hemoptysis. Positive abdominal pain. Current medications include Symbicort 80/4.5, Solu-Medrol 40 q.8, Eliquis 5 b.i.d., Lexapro, Spiriva, Cardizem, milk of magnesia, Lipitor, Lasix, and Protonix. PHYSICAL EXAMINATION: General: The patient is an elderly female, well developed, awake, alert, currently in no acute respiratory distress. Vital Signs: She is afebrile. Blood pressure is 106/55. Respiratory rate 20. HEENT: Normocephalic, atraumatic. Neck: Supple. Heart: Irregular, S1, S2. Chest: Bilateral crackles. Abdomen: Soft. Bowel sounds are positive. Extremities: No cyanosis, edema. LABORATORY DATA: WBC is 4.3, hemoglobin 10.3, hematocrit 33.3, with a platelet count 183,000. INR is 1.69. Blood gas was not performed. Chemistries: BUN 13, creatinine 1.0. BNP is 4597. Chest x-ray reveals cardiomegaly with pulmonary vascular congestion. Previous echocardiogram from April 17, 2018, reveals severe pulmonary hypertension with pulmonary artery systolic pressure of at least 88 mmHg. There is a left atrium moderately dilated, right atrium mild to moderately dilated, and the RV was mildly dilated. The systolic function is mild to moderately reduced. Left ventricular systolic function is normal. IMPRESSION: Chronic hypoxemic respiratory failure secondary to: 1. Likely mild decompensated congestive heart failure. 2. Severe pulmonary hypertension. 3. Questionable chronic obstructive pulmonary disease. 4. History of sarcoidosis. 5. Atrial fibrillation. 6. Hypertension. 7. Hyperlipidemia. 8. Iliac stent. PLAN: Continue IV Lasix, inhaled bronchodilators, supplemental O2 to maintain O2 saturations 90% or greater. Continue Solu-Medrol. Obtain followup chest x-rays, daily weights, cardiac enzymes. DIOR ALBERT M.D. [id number]
[2018-06-20] MEDS: ATORVASTATIN CA 20 MG TABLET (FP) PO SCH (21:25)
[2018-06-20] MEDS: ACETAMINOPHEN 325 MG TABLET (FP) PO PRN (22:17)
[2018-06-21] MEDS: methylPREDNISolone NA SUCC 40 MG/1 ML VIAL IVPUSH SCH ×3 (01:29→21:48)
[2018-06-21] MEDS ORDERED: ALBUTEROL SO4 2.5/IPRATROPIUM 0.5 INH SOL 3 ML VIAL.NEB. NEB ONE (02:45)
[2018-06-21 06:06] LABS: SERUM IRON SATURATION 12 % (15-55); TOTAL IRON BINDING CAPACITY 268 ug/dL (250-450); UIBC 237 ug/dL (118-369)
[2018-06-21] MEDS ORDERED: ALBUTEROL SO4 2.5/IPRATROPIUM 0.5 INH SOL 3 ML VIAL.NEB. NEB PRN (07:18)
[2018-06-21 08:02] LABS: HEMATOCRIT 30.8 % (32.4-45.2); HEMOGLOBIN 9.4 GM/dL (10.7-15.3); MCH 20.3 pg (25.7-33.7); MCHC 30.5 g/dl (32.0-36.0); MEAN CELL VOLUME 66.6 fl (80-96); PLATELET COUNT 167 K/MM3 (134-434); RBC 4.62 M/mm3 (3.60-5.2); RDW 19.6 % (11.6-15.6); WHITE BLOOD COUNT 7.4 K/mm3 (4.0-10.0)
[2018-06-21] MEDS ORDERED: PT OWN MED DRAWER 7, Y5N ONE ×3 (09:00→21:10)
[2018-06-21] MEDS: PANTOPRAZOLE 20 MG TABLET (FP) PO SCH (10:39)
[2018-06-21] MEDS: APIXABAN 5 MG TABLET PO SCH ×2 (10:40→21:48)
[2018-06-21] MEDS: ESCITALOPRAM OXALATE 10 MG TABLET (FP) PO SCH (10:40)
[2018-06-21] MEDS: FUROSEMIDE 40 MG/4 ML INJECTABLE VIAL IVPUSH SCH (10:41)
[2018-06-21] MEDS: TIOTROPIUM BROMIDE 2.5 MCG (SPIRIVA) RESPIMAT INHALER IH SCH (10:46)
[2018-06-21] MEDS: BUDESONIDE/FORMETEROL FUMARATE 80/4.5 mcg INHALER IH SCH ×2 (10:46→21:48)
--- NOTE | 2018-06-21 11:33 | PN ---
Physical Exam: SUBJECTIVE: Patient seen and examined this AM. States she is having some back pain and that she was a little SOB overnight requiring her oxygen to go back up to 3L. She says that she feels better this morning. She is still complaining of the same abdominal pain as yesterday. Discussed that her milk of magnesia was as needed and that she could ask for it from nursing staff if she needs it. OBJECTIVE: Vital Signs Period Temp Pulse Resp BP Sys/Garza Pulse Ox Last 24 Hr 98 F-98.7 F 82-100 20-22 106-131/55-71 94-96 GENERAL: A&O, no acute distress HEAD: Normocephalic, atraumatic. EYES: PERRL, no scleral icterus EARS, NOSE, THROAT: oropharynx clear without exudates. Moist mucous membranes. NECK: supple without lymphadenopathy LUNGS: Mild expiratory wheezes noted with some diffuse crackles, saturating well on 3L NC HEART: Regular rate and rhythm, normal S1 and S2 without murmur ABDOMEN: Soft, tender to palpation in the epigastric region, normoactive bowel sounds MUSCULOSKELETAL: No bony deformities or tenderness. EXTREMITIES: 2+ pulses, warm, well-perfused. No peripheral edema. NEUROLOGICAL: Cranial nerves II-XII grossly intact. Normal speech. PSYCHIATRIC: Cooperative. Good eye contact. Appropriate mood and affect. SKIN: Warm, dry, no rashes or lesions noted Laboratory Results - last 24 hr 06/20/18 06/21/18 06:15 06:00 WBC 7.4 RBC 4.62 Hgb 9.4 L Hct 30.8 L MCV 66.6 L MCH 20.3 L MCHC 30.5 L RDW 19.6 H Plt Count 167 MPV 9.0 Iron 31 TIBC 268 Iron Saturation 12 L Active Medications Generic Name Dose Route Start Last Admin Trade Name Freq PRN Reason Stop Dose Admin Acetaminophen 650 mg 06/20/18 22:12 06/20/18 22:17 Tylenol - PO 650 mg Q6H PRN Administration Fever Albuterol/Ipratropium 1 amp 06/21/18 07:18 Duoneb - NEB Q4H PRN SHORTNESS OF BREATH Apixaban 5 mg 06/20/18 10:00 06/21/18 10:40 Eliquis - PO 5 mg BID LISA Administration Atorvastatin Calcium 20 mg 06/20/18 22:00 06/20/18 21:25 Lipitor - PO 20 mg HS LISA Administration Budesonide/Formoterol Fumarate 2 puff 06/20/18 01:15 06/21/18 10:46 Symbicort 80/4.5mcg - IH 2 puff BID LISA Administration Diltiazem HCl 120 mg 06/20/18 10:00 06/21/18 10:39 Cardizem Cd - PO 120 mg DAILY LISA Administration Escitalopram Oxalate 10 mg 06/20/18 10:00 06/21/18 10:40 Lexapro - PO 10 mg DAILY LISA Administration Furosemide 40 mg 06/20/18 13:45 06/21/18 10:41 Lasix Injection - IVPUSH 40 mg DAILY LISA Administration Magnesium Hydroxide 30 ml 06/20/18 13:19 Milk Of Magnesia - PO PRN PRN CONSTIPATION Methylprednisolone Sodium Succinate 40 mg 06/20/18 13:40 06/21/18 10:40 Solu-Medrol - IVPUSH 40 mg Q8H-IV LISA Administration Pantoprazole Sodium 20 mg 06/20/18 10:00 06/21/18 10:39 Protonix - PO 20 mg DAILY LISA Administration Tiotropium [place] 2 puff 06/20/18 14:00 06/21/18 10:46 Spiriva Respimat IH 2 puff DAILY LISA Administration ASSESSMENT/PLAN: 87 yo female [facility] PMH a-fib (on eliquis), sarcoidosis, COPD (on 2L NC), diastolic CHF, HTN, pulmonary HTN, and chronic constipation admitted for worsening SOB and Abdominal Pain. Acute on Chronic Respiratory Distress -likely fluid overloaded secondary to Acute on Chronic Diastolyc Heart Failure, though possibly exacerbation of her COPD, though no infection suspected at this time -BNP 4597 -CXR noted with some congestion vs mild effusions, slightly improved today -Lasix 40 mg IV Daily, will reassess this afternoon if need for more frequent dosing -Pulmonology Consult appreciated SoluMedrol being tapered as per Pulmonology SoluMedrol 40 mg IV Q12 -Daily weights -Required elevation of O2 to 3L overnight Abdominal Pain -Likely secondary to chronic constipation -Pt says she usually has relief with Mo[facility], PRN -CT abdomen without oral or IV contrast: no acute pathologic findings -GI consult appreciated Upper GI series noted: no acute pathology, no ulceration, no dilatation or stricture, no diverticulum, no hiatal hernia or Schatzki ring -Will await further recommendation from GI for continued management Iron Deficiency Anemia -TIBC 268, Iron Sat 12, Ferritin 287 on this admission -Pt is on PO Iron outpatient, though with chronic constipation, will hold for now -Venofer 200 mg IV once on 9/4 -H/H stable, does not require transfusion Atrial Fibrillation -On eliquis 5 mg PO BID -HR currently well controlled < 110 Cardizem 120 mg PO Daily GERD -Protonix 20 mg PO Daily DVT Prophylaxis -On Eliquis 5 mg PO BID FEN -Fluids: none -Electrolytes: No electrolyte abnormalities, BMP in AM -Nutrition: Sodium controlled diet Disposition Continue to monitor in Med/Surg Visit type - Emergency Visit Emergency Visit: Yes ED Registration Date: 06/20/18 Care time: The patient presented to the Emergency Department on the above date and was hospitalized for further evaluation of their emergent condition. - New Patient This patient is new to me today: No - Critical Care Critical Care patient: No
--- NOTE | 2018-06-21 12:57 | PN ---
Progress Note (short form) - Note Progress Note: PULMONARY States breathing is slightly improved. No chest pain. No fevers or chills. Vital Signs Period Temp Pulse Resp BP Sys/Garza Pulse Ox Last 24 Hr 98 F-98.7 F 82-100 20-22 106-131/55-71 94-96 Gen: mildly tachypneic at rest Heart: RRR Lung: bibasilar rales Abd: soft, nontender Ext: no edema CBC, BMP 06/21/18 06:00 06/20/18 06:15 Active Medications Acetaminophen (Tylenol -) 650 mg PO Q6H PRN PRN Reason: Fever Last Admin: 06/20/18 22:17 Dose: 650 mg Albuterol/Ipratropium (Duoneb -) 1 amp NEB Q4H PRN PRN Reason: SHORTNESS OF BREATH Apixaban (Eliquis -) 5 mg PO BID [facility] Last Admin: 06/21/18 10:40 Dose: 5 mg Atorvastatin Calcium (Lipitor -) 20 mg PO HS [facility] Last Admin: 06/20/18 21:25 Dose: 20 mg Budesonide/Formoterol Fumarate (Symbicort 80/4.5mcg -) 2 puff IH BID [facility] Last Admin: 06/21/18 10:46 Dose: 2 puff Diltiazem HCl (Cardizem Cd -) 120 mg PO DAILY [facility] Last Admin: 06/21/18 10:39 Dose: 120 mg Escitalopram Oxalate (Lexapro -) 10 mg PO DAILY [facility] Last Admin: 06/21/18 10:40 Dose: 10 mg Furosemide (Lasix Injection -) 40 mg IVPUSH DAILY [facility] Last Admin: 06/21/18 10:41 Dose: 40 mg Magnesium Hydroxide (Milk Of Magnesia -) 30 ml PO PRN PRN PRN Reason: CONSTIPATION Methylprednisolone Sodium Succinate (Solu-Medrol -) 40 mg IVPUSH Q8H-IV [facility] Last Admin: 06/21/18 10:40 Dose: 40 mg Pantoprazole Sodium (Protonix -) 20 mg PO DAILY [facility] Last Admin: 06/21/18 10:39 Dose: 20 mg Tiotropium [place] (Spiriva Respimat) 2 puff IH DAILY [facility] Last Admin: 06/21/18 10:46 Dose: 2 puff A/P Acute on Chronic Hypoxic Respiratory Failure Acute on Chronic Diastolic Failure Pulmonary HTN Atrial Fibrillation HTN Hyperlipidemia - continue lasix - monitor urine output, creatinine - daily weights - inhaled bronchodilators - can taper medrol - rate controlled - continue anticoagulation - O2 to keep SpO2 >90%
--- NOTE | 2018-06-21 14:23 | PN ---
Teaching Attending Note Name of Resident: Brennan Gifford ATTENDING PHYSICIAN STATEMENT I saw and evaluated the patient. I reviewed the resident's note and discussed the case with the resident. I agree with the resident's findings and plan as documented. SUBJECTIVE:states breathing is improved. had episode of last night of dyspnea, no triggering factors. not related to laying down. denies Cp, SOB, fever, chills , N/V/C/D +BM yestertday OBJECTIVE: Last Vital Signs Temp Pulse Resp BP Pulse Ox 98.2 F 85 20 126/62 94 L 06/21/18 10:58 06/21/18 10:58 06/21/18 10:58 06/21/18 10:58 06/21/18 09:00 Intake & Output 06/18/18 06/19/18 06/20/18 06/21/18 23:59 23:59 23:59 23:59 Intake Total 860 Balance 860 Weight 158 lb 14.4 oz 158 lb 9 oz 160 lb 14.4 oz General NAD CV S1 S2 RRR no JVD lungs expiratory wheezing diffusely. no crackles extremiites no pedal edema ASSESSMENT AND PLAN: 87yo F wtih PMH afib on eliquis, sarcoidosis, COPD on 2L NC, diastolic CHF, pulmonary HTN and chronic constipation sent from [facility] [place] presented with abdominal pain and difficulty breathing 1. Abdominal pain- liekly due to intermittent constipation. now improved. last BM yesteday. NPO for small bowel series today. tolerating diet. Gi on board. 2. Acute on chronic hypoxic respiratory failure-liekly due to acute on chronic systolic CHF vs acute on chronic COPD exacerbation. clinically pt looks improved today however + weight balance. will cont lasix at this time. titrate down steroids to BID dosing and will d/w pulmonary if pt would benfit from pulmonary/cardio rehab on discharge. strict I&O. daily weights, Currently 94% on 2L NC which is home regimen 3. Iron def anemia- was recently started on iron supplements a week ago. possible not tolerating or worsening constipation. s/p venofer yesterday. hgb stable with baseline. no indication for repeating iron studies this quickly. no indication for transfusion 4. afib on eliquis- cont rate control and eliquis 5. sarcoidosis 6. pulmonary HTN 7. DVT ppx- eliquis 8. PT eval. think the patient would benefit from pulmonary/cardio rehab
[2018-06-21 16:48] VITALS: BMI 29.2
[2018-06-21] MEDS: ACETAMINOPHEN 325 MG TABLET (FP) PO PRN (17:16)
[2018-06-21] MEDS: ATORVASTATIN CA 20 MG TABLET (FP) PO SCH (21:48)
[2018-06-22] MEDS ORDERED: PT OWN MED DRAWER 7, Y5N ONE ×3 (05:42→14:16)
[2018-06-22 07:38] LABS: ANION GAP 7 MMOL/L (8-16); BLOOD UREA NITROGEN 23 mg/dL (7-18); CALCIUM 8.9 mg/dL (8.5-10.1); CHLORIDE 98 mmol/L (98-107); CO2 36 mmol/L (21-32); CREATININE 0.8 mg/dL (0.55-1.02); GLUCOSE,RANDOM 158 mg/dL (74-106); POTASSIUM 4.2 mmol/L (3.5-5.1); SODIUM 141 mmol/L (136-145)
[2018-06-22] MEDS: methylPREDNISolone NA SUCC 40 MG/1 ML VIAL IVPUSH SCH (09:21)
[2018-06-22] MEDS: PANTOPRAZOLE 20 MG TABLET (FP) PO SCH (09:21)
[2018-06-22] MEDS: ESCITALOPRAM OXALATE 10 MG TABLET (FP) PO SCH (09:21)
[2018-06-22] MEDS: FUROSEMIDE 40 MG/4 ML INJECTABLE VIAL IVPUSH SCH (09:21)
[2018-06-22] MEDS: BUDESONIDE/FORMETEROL FUMARATE 80/4.5 mcg INHALER IH SCH ×2 (09:22→22:01)
[2018-06-22] MEDS: TIOTROPIUM BROMIDE 2.5 MCG (SPIRIVA) RESPIMAT INHALER IH SCH (09:22)
[2018-06-22] MEDS: APIXABAN 5 MG TABLET PO SCH ×2 (09:22→22:01)
[2018-06-22] MEDS: MAGNESIUM HYDROX 2400MG/30ML ORAL SUSPENSION 30 ML CUP PO SCH ×2 (09:29→09:30)
--- NOTE | 2018-06-22 13:15 | PN ---
Physical Exam: SUBJECTIVE: Patient seen and examined this AM. She says that her breathing is feeling a little better today. She is concerned about her abdominal pain and says she has not had a bowel movement in two days. OBJECTIVE: Vital Signs Period Temp Pulse Resp BP Sys/Garza Pulse Ox Last 24 Hr 98 F-98.4 F 80-88 19-20 119-134/63-88 92-97 GENERAL: A&O, no acute distress HEAD: Normocephalic, atraumatic. EYES: PERRL, no scleral icterus EARS, NOSE, THROAT: oropharynx clear without exudates. Moist mucous membranes. NECK: supple without lymphadenopathy LUNGS: Mild expiratory wheezes noted with some diffuse crackles, saturating well on 2L NC HEART: Irregularly irregular, without murmur ABDOMEN: Soft, tender to palpation in the epigastric region, normoactive bowel sounds MUSCULOSKELETAL: No bony deformities or tenderness. EXTREMITIES: 2+ pulses, warm, well-perfused. No peripheral edema. NEUROLOGICAL: Cranial nerves II-XII grossly intact. Normal speech. PSYCHIATRIC: Cooperative. Good eye contact. Appropriate mood and affect. SKIN: Warm, dry, no rashes or lesions noted Laboratory Results - last 24 hr 06/22/18 06:00 Sodium 141 Potassium 4.2 Chloride 98 Carbon Dioxide 36 H Anion Gap 7 L BUN 23 H Creatinine 0.8 Creat Clearance w eGFR > 60 Random Glucose 158 H Calcium 8.9 Active Medications Generic Name Dose Route Start Last Admin Trade Name Freq PRN Reason Stop Dose Admin Acetaminophen 650 mg 06/20/18 22:12 06/21/18 17:16 Tylenol - PO 650 mg Q6H PRN Administration Fever Albuterol Sulfate 1 amp 06/21/18 12:57 Ventolin 0.083% Nebulizer Soln - NEB Q4H PRN SHORT OF BREATH/WHEEZING Apixaban 5 mg 06/20/18 10:00 06/22/18 09:22 Eliquis - PO 5 mg BID LISA Administration Atorvastatin Calcium 20 mg 06/20/18 22:00 06/21/18 21:48 Lipitor - PO 20 mg HS LISA Administration Budesonide/Formoterol Fumarate 2 puff 06/20/18 01:15 06/22/18 09:22 Symbicort 80/4.5mcg - IH 2 puff BID LISA Administration Diltiazem HCl 120 mg 06/20/18 10:00 06/22/18 09:21 Cardizem Cd - PO 120 mg DAILY LISA Administration Escitalopram Oxalate 10 mg 06/20/18 10:00 06/22/18 09:21 Lexapro - PO 10 mg DAILY LISA Administration Furosemide 40 mg 06/22/18 12:45 Lasix - PO DAILY LISA Magnesium Hydroxide 30 ml 06/22/18 09:15 06/22/18 09:30 Milk Of Magnesia - PO Not Given DAILY LISA Pantoprazole Sodium 20 mg 06/20/18 10:00 06/22/18 09:21 Protonix - PO 20 mg DAILY LISA Administration Tiotropium [place] 2 puff 06/20/18 14:00 06/22/18 09:22 Spiriva Respimat IH 2 puff DAILY LISA Administration ASSESSMENT/PLAN: 87 yo female wtih PMH a-fib (on eliquis), sarcoidosis, COPD (on 2L NC), diastolic CHF, HTN, pulmonary HTN, and chronic constipation admitted for worsening SOB and Abdominal Pain. Acute on Chronic Respiratory Distress -likely fluid overloaded secondary to Acute on Chronic Diastolic Heart Failure, though possibly exacerbation of her COPD, though no infection suspected at this time -BNP 4597 -CXR noted with some congestion vs mild effusions -Lasix 40 mg IV Daily d/c this AM, switched to 40 mg PO Daily as BUN was elevated this morning -Pulmonology Consult appreciated SoluMedrol being tapered as per Pulmonology SoluMedrol 40 mg IV Q12 d/c after morning dose today -Daily weights -Required 3L NC overnight, decreased and saturating well on 2L today -Worked with physical therapy yesterday and walked 65 feet though noted to be SOB and fatigued afterwards on 3L Abdominal Pain -Likely secondary to chronic constipation -Pt says she usually has relief with MoM, PRN -CT abdomen without oral or IV contrast: no acute pathologic findings -GI consult appreciated Upper GI series noted: no acute pathology, no ulceration, no dilatation or stricture, no diverticulum, no hiatal hernia or Schatzki ring -Will await further recommendation from GI for continued management Iron Deficiency Anemia -TIBC 268, Iron Sat 12, Ferritin 287 on this admission -Pt is on PO Iron outpatient, though with chronic constipation, will hold for now -Venofer 200 mg IV once on 06/20 -H/H stable, does not require transfusion Atrial Fibrillation -On eliquis 5 mg PO BID -HR currently well controlled < 110 Cardizem 120 mg PO Daily GERD -Protonix 20 mg PO Daily DVT Prophylaxis -On Eliquis 5 mg PO BID FEN -Fluids: none -Electrolytes: No electrolyte abnormalities, BMP in AM -Nutrition: Sodium controlled diet Disposition Continue to monitor in Med/Surg Visit type - Emergency Visit Emergency Visit: Yes ED Registration Date: 06/20/18 Care time: The patient presented to the Emergency Department on the above date and was hospitalized for further evaluation of their emergent condition. - New Patient This patient is new to me today: No - Critical Care Critical Care patient: No
[2018-06-22] MEDS ORDERED: SENNOSIDES 8.6MG TABLET (FP) PO PRN (14:02)
[2018-06-22] MEDS ORDERED: LORazepam 0.5 MG TABLET PO PRN (14:04)
[2018-06-22] MEDS: FUROSEMIDE 40 MG TABLET (FP) PO SCH (14:10)
[2018-06-22] MEDS: ALBUTEROL SO4 0.083% IH SOL 2.5 MG/3 ML VIAL.NEB. NEB PRN (14:25)
--- NOTE | 2018-06-22 14:59 | PN ---
Teaching Attending Note Name of Resident: Brennan Gifford ATTENDING PHYSICIAN STATEMENT I saw and evaluated the patient. I reviewed the resident's note and discussed the case with the resident. I agree with the resident's findings and plan as documented. SUBJECTIVE:breathing has improved. denies Cp, SOB, fever, chills, cough, N/V/C/D OBJECTIVE: Last Vital Signs Temp Pulse Resp BP Pulse Ox 97.7 F 95 H 20 132/79 92 L 06/22/18 14:12 06/22/18 14:12 06/22/18 14:12 06/22/18 14:12 06/22/18 09:00 General NAD lungs CTA B/L no wheezing/rales/rhonchi extremities no pedal edema ASSESSMENT AND PLAN: 87yo F wtih PMH afib on eliquis, sarcoidosis, COPD on 2L NC, diastolic CHF, pulmonary HTN and chronic constipation sent from [facility] presented with abdominal pain and difficulty breathing 1. Abdominal pain- liekly due to intermittent constipation. now improved. start senna as well to maintain regular BM. Small bowel series was negative. can f/u wt GI as outpatient for further workup. 2. Acute on chronic hypoxic respiratory failure-likely due to acute on chronic systolic CHF vs acute on chronic COPD exacerbation. will switch lasix over to po. decrease medrol to 40mg daily. can likely switch to po tomorrow. will d/w pulmonary about titration as outpatinet. would benfit from pulmonary/cardio rehab on discharge. strict I&O. daily weights, Currently 95% on 2L NC which is home regimen 3. Iron def anemia- was recently started on iron supplements a week ago. possible not tolerating or worsening constipation. s/p venofer. hgb stable with baseline. no indication for transfusion 4. afib on eliquis- cont rate control and eliquis 5. sarcoidosis 6. pulmonary HTN 7. DVT ppx- eliquis 8. PT eval. think the patient would benefit from pulmonary/cardio rehab. medically optimized for discharge in the next 24H
--- NOTE | 2018-06-22 15:57 | EKG ---
Test Reason : Blood Pressure : / mmHG Vent. Rate : 090 BPM Atrial Rate : 300 BPM P-R Int : 000 ms QRS Dur : 088 ms QT Int : 370 ms P-R-T Axes : 000 010 -05 degrees QTc Int : 452 ms ATRIAL FIBRILLATION ABNORMAL ECG WHEN COMPARED WITH ECG OF 19-JUN-2018 22:25, NO SIGNIFICANT CHANGE WAS FOUND Confirmed by ROGELIO PORTER MD ([id number]) on 06/22/2018 3:56:59 PM Referred By: DARYN GOFF DR Confirmed By:ROGELIO PORTER MD
--- NOTE | 2018-06-22 16:49 | PN ---
Progress Note (short form) - Note Progress Note: PULMONARY States breathing is about the same. No chest pain. No fevers or chills. Vital Signs Period Temp Pulse Resp BP Sys/Garza Pulse Ox Last 24 Hr 97.7 F-98.4 F 80-95 19-20 125-134/66-88 92-97 Intake & Output 06/19/18 06/20/18 06/21/18 06/22/18 23:59 23:59 23:59 23:59 Intake Total 860 600 500 Balance 860 600 500 Weight 72.076 kg 71.923 kg 72.575 kg 73.21 kg Gen: mildly tachypneic at rest Heart: RRR Lung: bibasilar rales Abd: soft, nontender Ext: no edema CBC, BMP 06/21/18 06:00 06/22/18 06:00 Active Medications Acetaminophen (Tylenol -) 650 mg PO Q6H PRN PRN Reason: Fever Last Admin: 06/21/18 17:16 Dose: 650 mg Albuterol Sulfate (Ventolin 0.083% Nebulizer Soln -) 1 amp NEB Q4H PRN PRN Reason: SHORT OF BREATH/WHEEZING Last Admin: 06/22/18 14:25 Dose: 1 amp Apixaban (Eliquis -) 5 mg PO BID [facility] Last Admin: 06/22/18 09:22 Dose: 5 mg Atorvastatin Calcium (Lipitor -) 20 mg PO HS [facility] Last Admin: 06/21/18 21:48 Dose: 20 mg Budesonide/Formoterol Fumarate (Symbicort 80/4.5mcg -) 2 puff IH BID [facility] Last Admin: 06/22/18 09:22 Dose: 2 puff Diltiazem HCl (Cardizem Cd -) 120 mg PO DAILY [facility] Last Admin: 06/22/18 09:21 Dose: 120 mg Escitalopram Oxalate (Lexapro -) 10 mg PO DAILY [facility] Last Admin: 06/22/18 09:21 Dose: 10 mg Furosemide (Lasix -) 40 mg PO DAILY [facility] Last Admin: 06/22/18 14:10 Dose: 40 mg Lorazepam (Ativan -) 0.5 mg PO Q8H PRN PRN Reason: ANXIETY Last Admin: 06/22/18 15:53 Dose: 0.5 mg Magnesium Hydroxide (Milk Of Magnesia -) 30 ml PO DAILY [facility] Last Admin: 06/22/18 09:30 Dose: Not Given Pantoprazole Sodium (Protonix -) 20 mg PO DAILY [facility] Last Admin: 06/22/18 09:21 Dose: 20 mg Senna (Senna -) 2 tab PO HS PRN PRN Reason: CONSTIPATION Tiotropium [place] (Spiriva Respimat) 2 puff IH DAILY [facility] Last Admin: 06/22/18 09:22 Dose: 2 puff A/P Acute on Chronic Hypoxic Respiratory Failure Acute on Chronic Diastolic Failure Pulmonary HTN Atrial Fibrillation HTN Hyperlipidemia - continue lasix - monitor urine output, creatinine - daily weights - inhaled bronchodilators - agree with stopping steroids, less likely COPD - rate controlled - continue anticoagulation - O2 to keep SpO2 >90%
[2018-06-22] MEDS: ATORVASTATIN CA 20 MG TABLET (FP) PO SCH (22:01)
[2018-06-23] MEDS ORDERED: DOCUSATE SODIUM 100 MG CAPSULE (FP) PO ONE (07:18)
[2018-06-23] MEDS ORDERED: SENNOSIDES 8.6MG TABLET (FP) PO SCH (07:30)
[2018-06-23 07:46] LABS: CHLORIDE 98 mmol/L (98-107); POTASSIUM 4.4 mmol/L (3.5-5.1); SODIUM 139 mmol/L (136-145)
[2018-06-23 07:51] LABS: ANION GAP 5 MMOL/L (8-16); BLOOD UREA NITROGEN 27 mg/dL (7-18); CALCIUM 8.5 mg/dL (8.5-10.1); CO2 36 mmol/L (21-32); CREATININE 0.9 mg/dL (0.55-1.02); GLUCOSE,RANDOM 125 mg/dL (74-106)
[2018-06-23] MEDS ORDERED: PT OWN MED DRAWER 7, Y5N ONE ×2 (09:04→09:32)
[2018-06-23] MEDS: PANTOPRAZOLE 20 MG TABLET (FP) PO SCH (09:28)
[2018-06-23] MEDS: FUROSEMIDE 40 MG TABLET (FP) PO SCH (09:29)
[2018-06-23] MEDS: BUDESONIDE/FORMETEROL FUMARATE 80/4.5 mcg INHALER IH SCH (09:29)
[2018-06-23] MEDS: TIOTROPIUM BROMIDE 2.5 MCG (SPIRIVA) RESPIMAT INHALER IH SCH (09:30)
[2018-06-23] MEDS: ESCITALOPRAM OXALATE 10 MG TABLET (FP) PO SCH (09:31)
[2018-06-23] MEDS: MAGNESIUM HYDROX 2400MG/30ML ORAL SUSPENSION 30 ML CUP PO SCH (09:31)
[2018-06-23] MEDS: APIXABAN 5 MG TABLET PO SCH (09:33)
[2018-06-23] MEDS: ALBUTEROL SO4 0.083% IH SOL 2.5 MG/3 ML VIAL.NEB. NEB PRN (09:58)
[2018-06-23] MEDS ORDERED: POLYETHYLENE GLYCOL 3350 119 GM BTL PO SCH ×2 (11:45)
--- NOTE | 2018-06-23 11:48 | PN ---
Teaching Attending Note Name of Resident: Brennan Gifford ATTENDING PHYSICIAN STATEMENT I saw and evaluated the patient. I reviewed the resident's note and discussed the case with the resident. I agree with the resident's findings and plan as documented. SUBJECTIVE:asymptomatic. states breathing is much improved. denies Cp, SOB, fever, chills, N/V/C/D OBJECTIVE: Last Vital Signs Temp Pulse Resp BP Pulse Ox 98.8 F 90 18 143/81 93 L 06/23/18 08:46 06/23/18 08:46 06/23/18 08:46 06/23/18 08:46 06/23/18 08:42 General NAD lungs CTA B/L no wheezing/rales/rhonchi extremities no pedal edema ASSESSMENT AND PLAN: 87yo F wtih PMH afib on eliquis, sarcoidosis, COPD on 2L NC, diastolic CHF, pulmonary HTN and chronic constipation sent from [facility] presented with abdominal pain and difficulty breathing 1. Abdominal pain- liekly due to intermittent constipation. now improved. cont miralax, increase water and fiber to encourage daily BM. can f/u wtih GI as outpatient for further workup. 2. Acute on chronic hypoxic respiratory failure-likely due to acute on chronic systolic CHF vs acute on chronic COPD exacerbation. now improved. euvolemic. spoke with pulm who agrees that less likely COPD and can d/c steroids. now on lasix po. Currently 95% on 2L NC which is home regimen 3. Iron def anemia- was recently started on iron supplements a week ago. possible not tolerating or worsening constipation. s/p venofer. hgb stable with baseline. no indication for transfusion 4. afib on eliquis- cont rate control and eliquis 5. sarcoidosis 6. pulmonary HTN 7. DVT ppx- eliquis 8. pt would benefit from rehab, home vs [facility] per PT assessment. medically optimized for discharge
--- NOTE | 2018-06-23 13:49 | DS ---
Physical Exam: SUBJECTIVE: Patient seen and examined this AM. She says she is feeling much better than yesterday. OBJECTIVE: Vital Signs Period Temp Pulse Resp BP Sys/Garza Pulse Ox Last 24 Hr 97.7 F-98.8 F 77-102 18-22 117-143/63-81 92-93 PHYSICAL EXAM GENERAL: A&O, no acute distress HEAD: Normocephalic, atraumatic. EYES: PERRL, no scleral icterus EARS, NOSE, THROAT: oropharynx clear without exudates. Moist mucous membranes. NECK: supple without lymphadenopathy LUNGS: Mild expiratory wheezes noted with some diffuse crackles, saturating well on 2L NC HEART: Irregularly irregular, without murmur ABDOMEN: Soft, less tender to palpation in the epigastric region, normoactive bowel sounds MUSCULOSKELETAL: No bony deformities or tenderness. EXTREMITIES: 2+ pulses, warm, well-perfused. No peripheral edema. NEUROLOGICAL: Cranial nerves II-XII grossly intact. Normal speech. PSYCHIATRIC: Cooperative. Good eye contact. Appropriate mood and affect. SKIN: Warm, dry, no rashes or lesions noted LABS Laboratory Results - last 24 hr 06/23/18 06:10 Sodium 139 Potassium 4.4 Chloride 98 Carbon Dioxide 36 H Anion Gap 5 L BUN 27 H Creatinine 0.9 Creat Clearance w eGFR 59.09 Random Glucose 125 H Calcium 8.5 IMAGING: CXR 05/19 : Large heart with some congestive changes noted CT Abdomen: No acute changes noted. Mild to moderate colonic fecal retention CXR 05/21 : Slight improvement of congestive changes Upper GI Barium Swallow: No evidence of ulceration, no hiatal hernia, no Schatzki ring, no [place] diverticulum, no esophageal stricture. HOSPITAL COURSE: Date of Admission:06/20/18 Date of Discharge: 06/23/18 87 y/o female with PMH of afib (rate controlled on eliquis), CHF, COPD ( on 2L home o2), HTN, pulmonary HTN, admitted with SOB and epigastric pain. She was seen by GI and Pulmonology. CT abdomen and Upper GI study were done with no acute pathology as above. Pulmonology agreed that she was likely fluid overloaded and was not having an exacerbation of her COPD. She did not require antibiotics and only received a short course of SoluMedrol which was discontinued as her symptoms improved. She does have a complaint of chronic constipation for which her regimen was changed from Milk of Magnesia once a day to Miralax BID. Pt was otherwise medically stable for discharge and agreeable to go to a rehab facility. Minutes to complete discharge: 40 Discharge Summary Reason For Visit: ELEVATED BRAIN NATRIURETIC PEPTIDE (BNP)LEVEL Current Active Problems Abdominal pain (Acute) Acute and chronic respiratory failure with hypoxia (Acute) COPD (chronic obstructive pulmonary disease) (Acute) Elevated brain natriuretic peptide (BNP) level (Acute) Condition: Stable - Instructions Diet, Activity, Other Instructions: You were admitted to the hospital with trouble breathing and abdominal pain. You were seen by a GI doctor who recommended an upper GI study where you drank contrast and an image was taken. That image did not show any abnormalities. You were given medications for your constipation as you took them prior to admission. Your Milk of Magnesia was changed to Miralax. You can take the Miralax once in the morning and once at night with a goal of one bowel movement per day or every other day. You can not take the nightly dose if you have already had a bowel movement that day. For your breathing you were see by a human resources operations director (lung doctor) who agreed that you most likely had some fluid in your lungs due to your history of heart failure and that you were not having a worsening of your COPD (lung disease). Other than stopping the milk of magnesia and beginning the miralax, please resume all of your home meds as you were taking them prior to this hospitalization. At this time you are medically safe for discharge and you have agreed with the recommendation that you will likely benefit from going to a facility that can offer rehab to improve your strength and breathing. You should be seen by your primary care physician within 1 week of discharge from the hospital. Follow up with your lung doctor in 2 weeks. if you do not have one information on the one you saw here has been provided If you have an acute worsening of symptoms, please call 911 or return to the Emergency Department. Referrals: Lon Espinosa MD, [Staff Physician] - Disposition: SENIOR CARE FACILITY - Home Medications Comprehensive Discharge Medication List: Ambulatory Orders Apixaban [Eliquis] 5 mg PO BID 04/16/18 Atorvastatin Ca [Lipitor] 20 mg PO HS 04/16/18 Escitalopram Oxalate [Lexapro -] 10 mg PO DAILY 04/16/18 Folic Acid 1 mg PO DAILY 04/16/18 Ipratropium [place] [Atrovent Hfa] 1 neb NEB Q4H PRN 04/17/18 Albuterol Sulfate [Proventil HFA Inhaler -] 1 - 2 inh PO QID PRN 06/20/18 Budesonide/Formeterol Fumarate [SYMBICORT 160/4.5mcg -] 1 inh PO BID 06/20/18 Furosemide [Lasix] 40 mg PO DAILY 06/20/18 Lorazepam 0.5 mg PO Q8H PRN 06/20/18 Omeprazole 20 mg PO DAILY 06/20/18 Atenolol [Tenormin] 25 mg PO BID #30 tablet 06/23/18 Polyethylene Glycol 3350 [Miralax 119 gm Btl -] 17 gm PO BID bottle 06/23/18 Sennosides [Senna -] 2 tab PO HS tablet 06/23/18 This patient is new to me today: No Emergency Visit: Yes ED Registration Date: 06/20/18 Care time: The patient presented to the Emergency Department on the above date and was hospitalized for further evaluation of their emergent condition. Critical Care patient: No - Discharge Referral Referred to [facility] Med P.C.: No
[2018-06-23 18:43] VITALS: BP 133/74; PULSE 87; TEMP 98.7
== END 2018-06-23 18:57 | DRG 190 ==
LOC: JER 20:41 → JERBED 23:34 → OBSVTOIN 06-20 00:57 → J7W 06-20 06:31
PROVIDERS: ADMIT Internal Medicine; ATTEND Internal Medicine
DX: J44.1 Chronic obstructive pulmonary disease with (acute) exacerbation (principal); J96.21 Acute and chronic respiratory failure with hypoxia; I50.33 Acute on chronic diastolic (congestive) heart failure; R01.1 Cardiac murmur, unspecified; I48.91 Unspecified atrial fibrillation; I27.20 Pulmonary hypertension, unspecified; E78.5 Hyperlipidemia, unspecified; D86.9 Sarcoidosis, unspecified; D51.0 Vitamin B12 deficiency anemia due to intrinsic factor deficiency; E66.9 Obesity, unspecified; Z68.30 Body mass index [BMI] 30.0-30.9, adult; R10.13 Epigastric pain; K21.9 Gastro-esophageal reflux disease without esophagitis; D50.9 Iron deficiency anemia, unspecified; F41.8 Other specified anxiety disorders; K59.00 Constipation, unspecified; I11.0 Hypertensive heart disease with heart failure; Z99.81 Dependence on supplemental oxygen
CPT/HCPCS: 36415; 71045-TC-FY; 74176-TC; 74220-TC-FY; 74240-TC-FY; 80048; 80053; 82310; 82728; 83540; 83550; 83735; 83880; 84100; 84484; 85025; 85027; 85044; 85610; 93005; 93010; 94640; 97116-GP; 97161-GP; 99285-25; G0378; J1756; J7620

== ENCOUNTER 2018-07-25 12:58 | Inpatient (IN) | payer OTHER ==
[2018-07-25] MEDS ORDERED: ALBUTEROL SO4 2.5/IPRATROPIUM 0.5 INH SOL 3 ML VIAL.NEB. NEB ONE ×4 (13:04→23:08)
--- NOTE | 2018-07-25 13:31 | PDOC ---
History of Present Illness - General Chief Complaint: Shortness of Breath Stated Complaint: Shortness of Breath Time Seen by Provider: 07/25/18 13:16 - History of Present Illness Initial Comments: 07/25/18 13:31 87 year old woman from [facility] presents with diastolic CHF, Afib on Eliquis, COPD, Sarcoidosis, HTN, HLD who presents with cough productive of yellow phlegm and shortness of breath for the past 4 days. The patient admits to runny nose and congestion but denies fever. She notes that the woman she shares a room with at [facility] had similar symptoms of runny nose and congestion. She denies any chest pain, but admits to mild substernal abdominal pain that is chronic for her. Over the past 4 weeks the patient has noted increased swelling in her legs bilaterally that has made it difficulty for her to walk. She notes that she tends to sit in her chair most days. She reports a history of 4 weeks of watery diarrhea that has been nonbloody, she notes that since yesterday her diarrhea has changes to a coverer color. At bedside she has no other complaints. The patient was admitted to this hospital 1 month ago for CHF exacerbation. PCP: Dr. Stephenson PMHX: as in HPI Meds: omeprazole, lorazepam, ipratropium, furosemide 40, lexapro, symbicort, atorvastatin, atenolol, apixaban, albuterol Allergies: KNDA Tob: none Etoh: none Rec drugs: none Past History - Past Medical History Allergies/Adverse Reactions: Allergies Allergy/AdvReac Type Severity Reaction Status Date / Time No Known Allergies Allergy Verified 06/19/18 21:10 Home Medications: Ambulatory Orders Apixaban [Eliquis] 5 mg PO BID 04/16/18 Atorvastatin Ca [Lipitor] 20 mg PO HS 04/16/18 Escitalopram Oxalate [Lexapro -] 10 mg PO DAILY 04/16/18 Folic Acid 1 mg PO DAILY 04/16/18 Ipratropium [place] [Atrovent Hfa] 1 neb NEB Q4H PRN 04/17/18 Albuterol Sulfate [Proventil HFA Inhaler -] 1 - 2 inh PO QID PRN 06/20/18 Budesonide/Formeterol Fumarate [SYMBICORT 160/4.5mcg -] 1 inh PO BID 06/20/18 Furosemide [Lasix] 40 mg PO DAILY 06/20/18 Lorazepam 0.5 mg PO Q8H PRN 06/20/18 Omeprazole 20 mg PO DAILY 06/20/18 Atenolol [Tenormin] 25 mg PO BID #30 tablet 06/23/18 Polyethylene Glycol 3350 [Miralax 119 gm Btl -] 17 gm PO BID bottle 06/23/18 Sennosides [Senna -] 2 tab PO HS tablet 06/23/18 Anemia: Yes (Pernicious) Asthma: Yes Cancer: No Cardiac Disorders: Yes (heart murmur) CVA: No COPD: Yes CHF: Yes Dementia: No Diabetes: No GI Disorders: No Disorders: No HTN: Yes Hypercholesterolemia: Yes Liver Disease: No Psychiatric Problems: Yes (ANXIETY.) Seizures: No Thyroid Disease: No - Surgical History Abdominal Surgery: Yes (abdominal) Appendectomy: No Cardiac Surgery: No Cholecystectomy: Yes Lung Surgery: No (PT DENIES) Neurologic Surgery: No Orthopedic Surgery: Yes (cervical spine/hardware) - Immunization History Immunization Up to Date: No - Suicide/Smoking/Psychosocial Hx Smoking Status: No Smoking History: Never smoked Years of Tobacco Use: 0 Have you smoked in the past 12 months: No Number of Cigarettes Smoked Daily: 0 Information on smoking cessation initiated: No Hx Alcohol Use: No Drug/Substance Use Hx: No Substance Use Type: None Hx Substance Use Treatment: No *Physical Exam - Vital Signs Last Vital Signs Temp Pulse Resp BP Pulse Ox 98.1 F 87 26 H 153/92 100 07/25/18 13:19 07/25/18 13:19 07/25/18 13:19 07/25/18 13:19 07/25/18 13:19 - Physical Exam Comments: 07/25/18 13:40 GENERAL: Awake, alert, and fully oriented, in no acute distress HEAD: No signs of trauma, normocephalic, atraumatic EYES: EOMI, sclera anicteric, conjunctiva clear ENT: oropharynx clear without exudates. Moist mucosa NECK: Normal ROM, supple, no lymphadenopathy, + JVD LUNGS: No distress, speaks full sentences, + expiratory wheeze in all lobes HEART: Regular rate and rhythm, normal S1 and S2, no murmurs, rubs or gallops, peripheral pulses normal and equal bilaterally. ABDOMEN: Soft, nontender, normoactive bowel sounds. No guarding, no rebound. No masses EXTREMITIES : Normal inspection, Normal range of motion, 3 + pitting edema from ankles to above knees. No clubbing or cyanosis. NEUROLOGICAL: Normal speech, normal gait, no focal sensorimotor deficits SKIN: Warm, Dry, normal turgor, no rashes or lesions noted ED Treatment Course - LABORATORY CBC & Chemistry Diagram: 07/26/18 06:30 07/27/18 05:30 - RADIOLOGY Radiology Studies Ordered: Category Date Time Status CHEST PA & LAT [RAD] Stat Radiology 07/25/18 13:30 Ordered Medical Decision Making - Medical Decision Making 07/25/18 13:39 87 year old woman from [facility] presents with diastolic CHF, Afib on Eliquis, COPD, Sarcoidosis, HTN, HLD who presents with cough productive of yellow phlegm and shortness of breath for the past 4 days. The patient admits to runny nose and congestion but denies fever. She notes that the woman she shares a room with at [facility] had similar symptoms of runny nose and congestion. She denies any chest pain, but admits to mild substernal abdominal pain that is chronic for her. Over the past 4 weeks the patient has noted increased swelling in her legs bilaterally that has made it difficulty for her to walk. She notes that she tends to sit in her chair most days. DDX including but not limited to: CHF exacerbation vs COPD exacerbation vs PNA W/U: - cbc, cmp, bnp, vbg - ekg - cxr TX: - duoneb ED Course: Patient completing duoneb treatment at bedside. Reports feeling "okay." 07/25/18 14:12 Respiratory contacted, request BIPAP for patient. O2 sat 96. RR22. Lasix 80 given 07/25/18 16:08 Patient reassessed. Notes that she does not feel better. On Bipap. minimal exp wheeze in R lower lobe, coarse breath sounds. BNP: 7963 VBG: PCO2 of 81.5 Medicine team contacted for admission for CHF exacerbation w/ hypercapnic respiratory failure. Patient admitted to medicine. *DC/Admit/Observation/Transfer Diagnosis at time of Disposition: CHF (congestive heart failure) - Discharge Dispostion Decision to Admit order: Yes - Referrals - Patient Instructions - Post Discharge Activity
--- NOTE | 2018-07-25 14:01 | PDOC ---
Attending Attestation - HPI HPI: 07/25/18 14:36 The patient is a year old female, with a significant past medical history of CHF , COPD, Afib (Eliquis), sarcoidosis, s/p admission for CHF last month, who presents to the emergency department via ems from [facility] for O2 saturations in the 60s with productive cough for about 2 days with associated shortness of breath. Secondarily, she reports about 4 days of diarrhea. The patient denies chest pain, shortness of breath, headache and dizziness. The patient denies fever, chills, nausea, vomit, and constipation. The patient denies dysuria, frequency, urgency and hematuria. Allergies: NKDA PCP - Dr. Stephenson - Physicial Exam PE: 07/25/18 14:37 ROS: A complete review of 10 out of 10 review of systems is taken and is negative apart from what is previously mentioned below and in the HPI. Vitals: Triage vital signs reviewed General Appearance: (+) mild respiratory distress, well nourished, well developed Head: Atraumatic Neck: (+) JVD, Supple; No nuchal rigidity Chest Wall: Nontender Cardiac: Regular rate and rhythm, no murmurs, no rubs, no gallops Lungs: (+) bilateral inspiratory and expiratory wheezing and crackles Abdomen: (+) chronic indwelling rodriguez. Soft, nondistended, normal bowel sounds, nontender to palpation Extremities: (+) 3+ pitting edema bilaterally. Full range of motion to all extremities, no cyanosis, clubbing Skin: Warm and dry, no rashes or lesions, no rash, no petechiae Neuro: AOX3; Cranial Nerves 2-12 grossly intact, Strength intact to all extremities, Sensation intact to all extremities, gait normal Psych: Normal mood, normal affect - Medical Decision Making 07/25/18 14:41 Documentation prepared by Valentine Joyner, acting as medical examiner for Antonio Rice MD, <Valentine Joyner - Last Filed: 07/25/18 14:36> - Resident Resident Name: Milla Ordonez - ED Attending Attestation I have performed the following: I have examined & evaluated the patient, The case was reviewed & discussed with the resident, I agree w/resident's findings & plan, Exceptions are as noted - Critical Care Time Total Critical Care Time: 35 Critical Care Statement: The care of this patient involved high complexity decision making to prevent further life threatening deterioration of the patient 's condition and/or to evaluate & treat vital organ system(s) failure or risk of failure. - Medical Decision Making CHF/COPD exacerbation, located by hypercapnic respiratory failure Patient placed on BiPAP oxygenation good pending repeat ABG 80 mg IV Lasix given C02 lowly resolving on BiPAP repeat is 71 Case discussed with medical team given G on BiPAP we'll place an ICU for further management Will admit to medicine for further management. <Antonio Rice - Last Filed: 07/25/18 19:39>
[2018-07-25] MEDS ORDERED: FUROSEMIDE 40 MG/4 ML INJECTABLE VIAL IVPUSH ONE (14:20)
[2018-07-25] MEDS ORDERED: FUROSEMIDE 40 MG/4 ML INJECTABLE VIAL ONE (14:23)
[2018-07-25 15:24] LABS: ALBUMIN 3.3 g/dl (3.4-5.0); ALK PHOS 83 U/L (45-117); ANION GAP 3 MMOL/L (8-16); BILIRUBIN,TOTAL 1.1 mg/dL (0.2-1); BLOOD UREA NITROGEN 8 mg/dL (7-18); CALCIUM 9.4 mg/dL (8.5-10.1); CHLORIDE 100 mmol/L (98-107); CO2 33 mmol/L (21-32); CREATININE 0.7 mg/dL (0.55-1.3); GLUCOSE,RANDOM 97 mg/dL (74-106); N-TERMINAL BNP 7963.3 pg/ml (5-450); POTASSIUM 3.3 mmol/L (3.5-5.1); SGOT/AST 20 U/L (15-37); SGPT/ALT 17 U/L (13-61); SODIUM 136 mmol/L (136-145); TOT PROT 6.9 g/dl (6.4-8.2)
[2018-07-25 15:24] LABS: VENOUS PC02 81.5 mmHg (38-52); VENOUS PH 7.26 (7.32-7.42); VENOUS PO2 27.4 mmHg (28-48)
[2018-07-25 16:33] LABS: BASO % 0.4 % (0-2.0); HEMATOCRIT 37.2 % (32.4-45.2); LYMPH % 41.3 % (8-40); MCHC 29.7 g/dl (32.0-36.0); MEAN CELL VOLUME 70.8 fl (80-96); MEAN PLT VOLUME 9.4 fl (7.5-11.1); MONO % 25.3 % (3.8-10.2); PLATELET COUNT 145 K/MM3 (134-434); RBC 5.25 M/mm3 (3.60-5.2); WHITE BLOOD COUNT 4.1 K/mm3 (4.0-10.0)
[2018-07-25 17:12] LABS: ANISOCYTOSIS 2+; PLATELET ESTIMATE ADEQUATE
[2018-07-25] MEDS ORDERED: LORazepam 0.5 MG TABLET PO PRN ×2 (17:53→18:00)
--- NOTE | 2018-07-25 18:15 | PN ---
Teaching Attending Note Name of Resident: Brennan Gifford ATTENDING PHYSICIAN STATEMENT I saw and evaluated the patient. I reviewed the resident's note and discussed the case with the resident. I agree with the resident's findings and plan as documented. SUBJECTIVE: Patient presents with diarrhea and SOB from [facility]; she is somnolent and is poor historian but when aroused is able to be AAOx3 and protect her airway. Nonbloody, watery diarrhea. She was on laxatives; unknown amount of use at PR. She was found to be in acute hypercapnic RF and placed on BiPap. Repeat ABG pending post-BiPap Adustement. Low threshold to transfer to ICU; should be noted she is satting 100%. Please refer to resident note for further information. Diuresing well post 80 lasix. Resident successfully inserted EJ with 1 attempt 2/2 poor IV access. OBJECTIVE: Gen: Mild distress, on BiPap; VS reviewed. Mentating well when woken up. CV: Irregular rhythm normal rate no m/g/r but limited exam 2/2 bipap. 3+ pitting edema sym b/l. Large JVD with +HJR Pulm: Crackles throughout GI: NT ND +BS Neuro: Sleepy, CN2-12 grossly intact. No lateralizing signs. Sensation intact. HEENT: NC AT EOMI PERRLA Psych: Normal behavior, flat affect : Aguayo in place draining large amount of clear urine. ASSESSMENT AND PLAN: 1) Acute Hypercapnic Respiratory Failure with metabolic compensation -Low threshold to move to higher level of care; family discussion should be held regarding overall goals. -Etiology is likely 2/2 R-CHF with underlying pulmonary HTN, possibly related to underlying COPD. Consulting cardiology; consider pulmonary medicine consultation, as well. In interm will diurese with 40 IV BID lasix. May need R -heart cath to elucidate extent of disease. 2) Pulmonary HTN 3) R-sided CHF 4) Diarrhea -Hold laxatives, check lactoferrin and CDif. No WBC, afebrile. Infection unlikely. 5) Afib -Continue home meds (BB and eliquis)
--- NOTE | 2018-07-25 18:32 | HP ---
CHIEF COMPLAINT: SOB, cough, Diarrhea PCP: Dr. Conti HISTORY OF PRESENT ILLNESS: 87 yo female with PMH of a-fib (rate controlled, on eliquis), CHF, COPD (on 2L home o2), HTN, pulmonary HTN, presented to the ED with complaint of SOB with a cough productive of clear sputum for 2 days. She says she became much more SOB today. She is also complaining of diarrhea for about 4 days. She was admitted last month for similar SOB with fluid overload. ER course was notable for: (1) 80 IV Lasix with about 700 cc output, Duoneb (2) Bilevel ventilation started (3) Recent Travel: none PAST MEDICAL HISTORY: a-fib (rate controlled, on eliquis), CHF, COPD (on 2L home o2), HTN, pulmonary HTN PAST SURGICAL HISTORY: Social History: Smoking: denies, former smoker Alcohol: denies Drugs: denies Family History: Allergies No Known Allergies Allergy (Verified 06/19/18 21:10) HOME MEDICATIONS: Home Medications Medication Instructions Recorded Apixaban [Eliquis] 5 mg PO BID 04/16/18 Atorvastatin Ca [Lipitor] 20 mg PO HS 04/16/18 Escitalopram Oxalate [Lexapro -] 10 mg PO DAILY 04/16/18 Folic Acid 1 mg PO DAILY 04/16/18 Ipratropium Combs [Atrovent Hfa] 1 neb NEB Q4H PRN 04/17/18 Albuterol Sulfate [Proventil HFA 1 - 2 inh PO QID PRN 06/20/18 Inhaler -] Budesonide/Formeterol Fumarate 1 inh PO BID 06/20/18 [SYMBICORT 160/4.5mcg -] Furosemide [Lasix] 40 mg PO DAILY 06/20/18 Lorazepam 0.5 mg PO Q8H PRN 06/20/18 Omeprazole 20 mg PO DAILY 06/20/18 Atenolol [Tenormin] 25 mg PO BID #30 tablet 06/23/18 Polyethylene Glycol 3350 [Miralax 17 gm PO BID bottle 06/23/18 119 gm Btl -] Sennosides [Senna -] 2 tab PO HS tablet 06/23/18 REVIEW OF SYSTEMS CONSTITUTIONAL: Absent: fever, chills, diaphoresis, generalized weakness, malaise, loss of appetite, weight change HEENT: Absent: rhinorrhea, nasal congestion, throat pain, throat swelling, difficulty swallowing, mouth swelling, ear pain, eye pain, visual changes CARDIOVASCULAR: Absent: chest pain, syncope, palpitations, irregular heart rate, lightheadedness , peripheral edema RESPIRATORY: cough, shortness of breath, dyspnea with exertion, orthopnea, wheezing, Absent: stridor, hemoptysis GASTROINTESTINAL:diarrhea Absent: abdominal pain, abdominal distension, nausea, vomiting, , constipation, melena, hematochezia GENITOURINARY: Absent: dysuria, frequency, urgency, hesitancy, hematuria, flank pain, genital pain MUSCULOSKELETAL: Absent: myalgia, arthralgia, joint swelling, back pain, neck pain SKIN: Absent: rash, itching, pallor HEMATOLOGIC/IMMUNOLOGIC: Absent: easy bleeding, easy bruising, lymphadenopathy, frequent infections ENDOCRINE: Absent: unexplained weight gain, unexplained weight loss, heat intolerance, cold intolerance NEUROLOGIC: Absent: headache, focal weakness or paresthesias, dizziness, unsteady gait, seizure, mental status changes, bladder or bowel incontinence PSYCHIATRIC: Absent: anxiety, depression, suicidal or homicidal ideation, hallucinations. PHYSICAL EXAMINATION Vital Signs - 24 hr 07/25/18 07/25/18 13:19 14:25 Temperature 98.1 F Pulse Rate 87 Respiratory 26 H Rate Blood Pressure 153/92 O2 Sat by Pulse 100 100 Oximetry (%) GENERAL: Somnolent on exam, Oriented to person, place, and time, mild distress HEAD: Normocephalic, atraumatic. EYES: PERRL, no scleral icterus EARS, NOSE, THROAT: Dry mucous membranes. NECK: supple without lymphadenopathy LUNGS: Course breath sounds diffusely, expiratory wheezes HEART: Irregularly irregular, regular rate, normal S1 and S2 without murmur ABDOMEN: Soft, nontender to palpation, normoactive bowel sounds EXTREMITIES: 2+ pulses, warm, well-perfused. 3+ edema of LE b/l NEUROLOGICAL: Cranial nerves II-XII grossly intact. Labored speech, likely due to respiratory status Laboratory Results - last 24 hr 07/25/18 07/25/18 07/25/18 14:44 14:44 15:10 WBC 4.1 RBC 5.25 H Hgb 11.0 Hct 37.2 D MCV 70.8 L MCH 21.0 L MCHC 29.7 L RDW 21.0 H Plt Count 145 MPV 9.4 Absolute Neuts (auto) 1.3 L Neutrophils % 32.0 L D Neutrophils % (Manual) 36.0 L Band Neutrophils % 2.0 Lymphocytes % 41.3 H Lymphocytes % (Manual) 50.0 H D Monocytes % 25.3 H Monocytes % (Manual) 9 D Eosinophils % 1.0 Eosinophils % (Manual) 1.0 D Basophils % 0.4 Basophils % (Manual) 0.0 Myelocytes % (Man) 1 Nucleated RBC % 0 Metamyelocytes 0 Hypochromia 2+ Platelet Estimate Adequate Platelet Comment Large platelets Anisocytosis 2+ VBG pH POC VBG pCO2 POC VBG pO2 Mixed VBG HCO3 Sodium 136 Potassium 3.3 L Chloride 100 Carbon Dioxide 33 H Anion Gap 3 L BUN 8 Creatinine 0.7 Creat Clearance w eGFR > 60 Random Glucose 97 Calcium 9.4 Total Bilirubin 1.1 H AST 20 ALT 17 Alkaline Phosphatase 83 Troponin I < 0.02 B-Natriuretic Peptide 7963.3 H Total Protein 6.9 Albumin 3.3 L 07/25/18 15:10 WBC RBC Hgb Hct MCV MCH MCHC RDW Plt Count MPV Absolute Neuts (auto) Neutrophils % Neutrophils % (Manual) Band Neutrophils % Lymphocytes % Lymphocytes % (Manual) Monocytes % Monocytes % (Manual) Eosinophils % Eosinophils % (Manual) Basophils % Basophils % (Manual) Myelocytes % (Man) Nucleated RBC % Metamyelocytes Hypochromia Platelet Estimate Platelet Comment Anisocytosis VBG pH 7.26 L POC VBG pCO2 81.5 H* D POC VBG pO2 27.4 L D Mixed VBG HCO3 35.2 H Sodium Potassium Chloride Carbon Dioxide Anion Gap BUN Creatinine Creat Clearance w eGFR Random Glucose Calcium Total Bilirubin AST ALT Alkaline Phosphatase Troponin I B-Natriuretic Peptide Total Protein Albumin ASSESSMENT/PLAN: 87 yo female with PMH of a-fib (rate controlled, on eliquis), CHF, COPD (on 2L home o2), HTN, pulmonary HTN, Depression, admitted with complaint of SOB with a cough productive of clear sputum for 2 days Acute Hypoxic Respiratory Distress -Likely fluid overloaded, unlikely pneumonia with no elevation of WBCs and pt afebrile, less likely COPD Exacerbation -Telemetry monitoring -Cardiology consulted -Lasix 40 mg IV BID -I&Os, Daily Weights -Bilevel ventilation, IPAP 14, EPAP 4, Rate 18, FiO2 60% Can titrate down FiO2 as tolerated -ABG, consider intubation if worsening hypercapnea and concern for airway protection -Budesonide NEBs BID -Albuterol NEBs PRN Q8 -Pulmicort NEBs BID HTN and Pulmonary HTN -Controlled on Home Atenolol 25 mg PO BID -Keep B.P. < 150 systolic with hx Pulmonary HTN A-fib -Rate is well controlled on Atenolol 25 mg PO BID -On Eliquis 5 mg PO BID HLD -Lipitor 20 mg PO HS Depression -Stable on home Lexapro 10 mg PO Daily DVT Prophylaxis -On eliquis 5 mg PO BID FEN -Fluids: None -Electrolytes: Low K+, replete, BMP in AM -Nutrition: NPO until off bilevel ventilation Disposition Telemetry Visit type - Emergency Visit Emergency Visit: Yes Care time: The patient presented to the Emergency Department on the above date and was hospitalized for further evaluation of their emergent condition. - New Patient This patient is new to me today: Yes Date on this admission: 07/25/18 - Critical Care Critical Care patient: No
[2018-07-25 18:51] LABS: ALLENS TEST POSITIVE; ARTERIAL BLD GAS O2 SATURATION 97.9 % (90-98.9); ARTERIAL BLOOD GAS BASE EXCESS 8.5 meq/l (-2-2); ARTERIAL BLOOD GAS pH 7.32 (7.35-7.45)
[2018-07-25 18:55] LABS: ARTERIAL BLOOD GAS PCO2 71.7 mmHg (35-45)
--- NOTE | 2018-07-25 19:07 | HOSP ---
Subjective - Review of Symptoms Subjective: Patient more lethargic and somnolent ABG done and noted retaining CO2 Spoke to Dr. Moore from ICU and evaluated patient in the ER with her and has accepted the patient BiPAP settings changed to 14/4 can come down on Fio2 to 50% [address] and patient removed it pressure held small hematoma Physical Examination Vital Signs: Vital Signs Temperature 98.1 F 07/25/18 13:19 Pulse Rate 103 H 07/25/18 18:00 Respiratory Rate 19 07/25/18 18:00 Blood Pressure 137/87 07/25/18 18:00 O2 Sat by Pulse Oximetry (%) 100 07/25/18 18:00 Labs: CBC, BMP 07/25/18 15:10 07/25/18 14:44 Visit type - Emergency Visit Emergency Visit: Yes ED Registration Date: 07/25/18 Care time: The patient presented to the Emergency Department on the above date and was hospitalized for further evaluation of their emergent condition. - New Patient This patient is new to me today: Yes Date on this admission: 07/25/18 - Critical Care Critical Care patient: No
--- NOTE | 2018-07-25 19:27 | CONSULT ---
Consultation: REQUESTING PROVIDER: CONSULT REQUEST: We have been asked to medically evaluate this patient for respiratory failure HISTORY OF PRESENT ILLNESS: This is an 87 yo F with PMH of CHF, recent chf admission 1 mo ago requiring diuresis, COPD on 2L, AF on eliquis, HTN, pulmonary HTN, who presented with sob and productive cough x 2 d, as well as diarrhea x 4d. Found to be in acute hypercarbic hypoxic failure. Clinically appeares in fluid overload. BNP 8k above baseline; treated in ED with 80 IV lasix resulting in >2L uo and plaved on BIPA. Patient is currently somnolent as she reportedly has been since placed on bipap several hours ago. she is arousable to touch and mumbles in response to questions. PMH obtained from EMR REVIEW OF SYSTEMS: unable to obtain due to somnolence PHYSICAL EXAMINATION Vital Signs - 24 hr 07/25/18 07/25/18 07/25/18 13:19 14:25 18:00 Temperature 98.1 F Pulse Rate 87 Pulse Rate [ 103 H Apical] Respiratory 26 H 19 Rate Blood Pressure 153/92 Blood Pressure 137/87 [Left Arm] O2 Sat by Pulse 100 100 100 Oximetry (%) 07/25/18 19:10 Temperature Pulse Rate Pulse Rate [ Apical] Respiratory Rate Blood Pressure Blood Pressure [Left Arm] O2 Sat by Pulse 100 Oximetry (%) GENERAL: somnolent, arousable to light touch HEAD: Normal with no signs of trauma. EYES: Pupils equal, round and reactive to light, sclera anicteric, conjunctiva clear. EARS, NOSE, THROAT: Moist mucous membranes. NECK: supple + JVD at 45 degree incline LUNGS: b/l poor air movement, b/l wheezes HEART: Irregularly irregular, reg mrate, normal S1 and S2 ABDOMEN: Soft, nontender, not distended, globally reduced bowel sounds, no guarding, no rebound, no masses. MUSCULOSKELETAL: No bony deformities UPPER EXTREMITIES: 2+ pulses, warm, well-perfused. No peripheral edema. LOWER EXTREMITIES: 2+ pulses, warm, well-perfused. No calf tenderness. 2+ b/l pedal edema NEUROLOGICAL: unable to assess PSYCHIATRIC: unable to assess SKIN: Warm, dry Laboratory Results - last 24 hr 07/25/18 07/25/18 07/25/18 14:44 14:44 15:10 WBC 4.1 RBC 5.25 H Hgb 11.0 Hct 37.2 D MCV 70.8 L MCH 21.0 L MCHC 29.7 L RDW 21.0 H Plt Count 145 MPV 9.4 Absolute Neuts (auto) 1.3 L Neutrophils % 32.0 L D Neutrophils % (Manual) 36.0 L Band Neutrophils % 2.0 Lymphocytes % 41.3 H Lymphocytes % (Manual) 50.0 H D Monocytes % 25.3 H Monocytes % (Manual) 9 D Eosinophils % 1.0 Eosinophils % (Manual) 1.0 D Basophils % 0.4 Basophils % (Manual) 0.0 Myelocytes % (Man) 1 Nucleated RBC % 0 Metamyelocytes 0 Hypochromia 2+ Platelet Estimate Adequate Platelet Comment Large platelets Anisocytosis 2+ Anticoagulation Therapy Puncture Site ABG pH ABG pCO2 at Pt Temp ABG pO2 at Pt Temp ABG HCO3 ABG O2 Sat (Measured) ABG O2 Content ABG Base Excess Junior Test VBG pH POC VBG pCO2 POC VBG pO2 Mixed VBG HCO3 O2 Delivery Device Oxygen Flow Rate Vent Mode Vent Rate Mechanical Rate Pressure Support Vent Sodium 136 Potassium 3.3 L Chloride 100 Carbon Dioxide 33 H Anion Gap 3 L BUN 8 Creatinine 0.7 Creat Clearance w eGFR > 60 Random Glucose 97 Calcium 9.4 Total Bilirubin 1.1 H AST 20 ALT 17 Alkaline Phosphatase 83 Troponin I < 0.02 B-Natriuretic Peptide 7963.3 H Total Protein 6.9 Albumin 3.3 L 07/25/18 07/25/18 15:10 18:35 WBC RBC Hgb Hct MCV MCH MCHC RDW Plt Count MPV Absolute Neuts (auto) Neutrophils % Neutrophils % (Manual) Band Neutrophils % Lymphocytes % Lymphocytes % (Manual) Monocytes % Monocytes % (Manual) Eosinophils % Eosinophils % (Manual) Basophils % Basophils % (Manual) Myelocytes % (Man) Nucleated RBC % Metamyelocytes Hypochromia Platelet Estimate Platelet Comment Anisocytosis Anticoagulation Therapy No Result Required. Puncture Site No Result Required. ABG pH 7.32 L ABG pCO2 at Pt Temp 71.7 H* D ABG pO2 at Pt Temp 112.0 H D ABG HCO3 36.1 H ABG O2 Sat (Measured) 97.9 ABG O2 Content 14.5 L ABG Base Excess 8.5 H Junior Test Positive VBG pH 7.26 L POC VBG pCO2 81.5 H* D POC VBG pO2 27.4 L D Mixed VBG HCO3 35.2 H O2 Delivery Device Bipap Oxygen Flow Rate 60 Vent Mode S/t Vent Rate 15 Mechanical Rate No Result Required. Pressure Support Vent 14/4 Sodium Potassium Chloride Carbon Dioxide Anion Gap BUN Creatinine Creat Clearance w eGFR Random Glucose Calcium Total Bilirubin AST ALT Alkaline Phosphatase Troponin I B-Natriuretic Peptide Total Protein Albumin Active Medications Generic Name Dose Route Start Last Admin Trade Name Freq PRN Reason Stop Dose Admin Albuterol Sulfate 1 amp 07/25/18 17:55 Ventolin 0.083% Nebulizer Soln - NEB Q8H PRN SHORT OF BREATH/WHEEZING Albuterol/Ipratropium 1 amp 07/25/18 20:00 Duoneb - NEB RTID LISA Apixaban 5 mg 07/25/18 22:00 Eliquis - PO BID LISA Atenolol 25 mg 07/25/18 22:00 Tenormin - PO BID LISA Atorvastatin Calcium 20 mg 07/25/18 22:00 Lipitor - PO HS LISA Budesonide 1 amp 07/25/18 20:00 Pulmicort 0.25 Mg Nebulizer - NEB RBID LISA Escitalopram Oxalate 10 mg 07/26/18 10:00 Lexapro - PO DAILY LISA Folic Acid 1 mg 07/26/18 10:00 Folic Acid - PO DAILY LISA Furosemide 40 mg 07/26/18 06:00 Lasix Injection - IVPUSH BIDLASIX LISA Pantoprazole Sodium 20 mg 07/26/18 10:00 Protonix - PO DAILY LISA CXR appreciated, appears congested ASSESSMENT/PLAN: his is an 87 yo F with PMH of CHF, recent chf admission 1 mo ago requiring diuresis, COPD on 2L, AF on eliquis, HTN, pulmonary HTN, who presented with sob and productive cough x 2 d, as well as diarrhea x 4d, found to be in acute hypercarbic hypoxic failure. Acute hypercarbic hypoxic failure, likely due to fluid overload/ acute chf exaerbation hypokalemia O2 dependant COPD AF on eliquis HTN Pulmonary HTN -so far duiresing well s/p 80 IV lasix -TTE earlier this year RV ef mod reduced, LV EF enl, moderate TR, nild/mod MR -RV failure with pulm HTN is somewhat fluid dependant and LV output cant drop if patient is overdiuresed. Would assess fluid balance carefully tomorrow morning to determine if patient still requires such high dose of IV lasix. -strict I/O, goal of negative fluid bolus. restric to 1 L po fluid/day -daily weights -maintain bipap at current settings 14/4 FiO2 50%; f/u abg -continue bronchodilators, pulmicort -dont thing this is PNA or COPD exacerbation, will hold off on IV steroids for now. -hypokalemia may worsen with lasix, replete to 4 -continue eliquis, atenolol, lipitor. Dispo: We will continue to follow the patient. Thank you for this consultative opportunity. Problem List - Problems (1) Acute CHF (congestive heart failure) Code(s): I50.9 - HEART FAILURE, UNSPECIFIED (2) CHF (congestive heart failure) Code(s): I50.9 - HEART FAILURE, UNSPECIFIED (3) Acute and chronic respiratory failure with hypercapnia Code(s): J96.22 - ACUTE AND CHRONIC RESPIRATORY FAILURE WITH HYPERCAPNIA (4) Acute and chronic respiratory failure with hypoxia Code(s): J96.21 - ACUTE AND CHRONIC RESPIRATORY FAILURE WITH HYPOXIA (5) Atrial fibrillation Code(s): I48.91 - UNSPECIFIED ATRIAL FIBRILLATION Qualifiers: Atrial fibrillation type: permanent Qualified Code(s): I48.2 - Chronic atrial fibrillation (6) COPD (chronic obstructive pulmonary disease) Code(s): J44.9 - CHRONIC OBSTRUCTIVE PULMONARY DISEASE, UNSPECIFIED Qualifiers: COPD type: COPD with acute exacerbation Qualified Code(s): J44.1 - Chronic obstructive pulmonary disease with (acute) exacerbation (7) Chronic respiratory failure with hypoxia Code(s): J96.11 - CHRONIC RESPIRATORY FAILURE WITH HYPOXIA (8) Coronary artery disease Code(s): I25.10 - ATHSCL HEART DISEASE OF [place] CORONARY ARTERY W/O ANG PCTRS Qualifiers: Coronary Disease-Associated Artery/Lesion type: [place] artery [place] vs. transplanted heart: [place] heart Associated angina: without angina Qualified Code(s): I25.10 - Atherosclerotic heart disease of [place] coronary artery without angina pectoris (9) Diarrhea Code(s): R19.7 - [place]HE[place], UNSPECIFIED Qualifiers: Diarrhea type: unspecified type Qualified Code(s): R19.7 - Diarrhea, unspecified (10) Elevated brain natriuretic peptide (BNP) level Code(s): R79.89 - OTHER SPECIFIED ABNORMAL FINDINGS OF BLOOD CHEMISTRY (11) Pulmonary HTN Code(s): I27.20 - PULMONARY HYPERTENSION, UNSPECIFIED (12) Shortness of breath Code(s): R06.02 - SHORTNESS OF BREATH Visit type - Emergency Visit Emergency Visit: Yes ED Registration Date: 07/25/18 Care time: The patient presented to the Emergency Department on the above date and was hospitalized for further evaluation of their emergent condition. - New Patient This patient is new to me today: Yes Date on this admission: 07/25/18 - Critical Care Critical Care patient: Yes Total Critical Care Time (in minutes): 35 Critical Care Statement: The care of this patient involved high complexity decision making to prevent further life threatening deterioration of the patient 's condition and/or to evaluate & treat vital organ system(s) failure or risk of failure.
[2018-07-25] MEDS ORDERED: KCL 10 MEQ IVPB 10 MEQ/100 ML INFUS.BAG IVPB ONE (22:15)
[2018-07-25] MEDS: KCL 10 MEQ IVPB 10 MEQ/100 ML INFUS.BAG IVPB SCH (22:15)
[2018-07-25] MEDS: BUDESONIDE 0.25 MG/2ML INH SUSP VIAL NEB SCH (23:06)
[2018-07-25] MEDS: ALBUTEROL SO4 2.5/IPRATROPIUM 0.5 INH SOL 3 ML VIAL.NEB. NEB SCH (23:06)
[2018-07-25] MEDS: APIXABAN 5 MG TABLET PO SCH (23:07)
[2018-07-25] MEDS: ATENOLOL 25 MG TABLET (FP) PO SCH (23:07)
[2018-07-25] MEDS: ATORVASTATIN CA 20 MG TABLET (FP) PO SCH (23:07)
[2018-07-26] MEDS: KCL 10 MEQ IVPB 10 MEQ/100 ML INFUS.BAG IVPB SCH (01:01)
[2018-07-26] MEDS ORDERED: FUROSEMIDE 40 MG/4 ML INJECTABLE VIAL IVPUSH SCH (06:00)
[2018-07-26] MEDS ORDERED: FUROSEMIDE 40 MG/4 ML INJECTABLE VIAL ONE (06:29)
[2018-07-26 06:50] LABS: ARTERIAL BLOOD GAS pH 7.32 (7.35-7.45)
[2018-07-26 06:51] LABS: ARTERIAL BLD GAS O2 SATURATION 97.5 % (90-98.9)
[2018-07-26 06:52] LABS: ALLENS TEST POSITIVE
[2018-07-26 06:59] LABS: ARTERIAL BLOOD GAS PCO2 76.1 mmHg (35-45)
[2018-07-26 07:40] LABS: BASO % 0.5 % (0-2.0); EOS % 0.2 % (0-4.5); HEMATOCRIT 36.8 % (32.4-45.2); HEMOGLOBIN 10.8 GM/dL (10.7-15.3); LYMPH % 11.4 % (8-40); MCH 20.7 pg (25.7-33.7); MCHC 29.4 g/dl (32.0-36.0); MEAN CELL VOLUME 70.2 fl (80-96); MONO % 13.9 % (3.8-10.2); PLATELET COUNT 138 K/MM3 (134-434); RBC 5.24 M/mm3 (3.60-5.2); RDW 20.4 % (11.6-15.6); WHITE BLOOD COUNT 6.9 K/mm3 (4.0-10.0)
[2018-07-26 08:18] LABS: ALBUMIN 2.9 g/dl (3.4-5.0); ALK PHOS 74 U/L (45-117); ANION GAP 4 MMOL/L (8-16); BLOOD UREA NITROGEN 7 mg/dL (7-18); CALCIUM 8.9 mg/dL (8.5-10.1); CHLORIDE 99 mmol/L (98-107); CO2 38 mmol/L (21-32); CREATININE 0.6 mg/dL (0.55-1.3); GLUCOSE,RANDOM 89 mg/dL (74-106); MAGNESIUM 2.1 mg/dL (1.8-2.4); PHOSPHOROUS 3.9 mg/dL (2.5-4.9); POTASSIUM 3.5 mmol/L (3.5-5.1); SGOT/AST 22 U/L (15-37); SGPT/ALT 14 U/L (13-61); SODIUM 141 mmol/L (136-145); TOT PROT 6.2 g/dl (6.4-8.2)
[2018-07-26] MEDS ORDERED: ALBUTEROL SO4 2.5/IPRATROPIUM 0.5 INH SOL 3 ML VIAL.NEB. NEB ONE ×3 (08:52→21:00)
[2018-07-26] MEDS: ALBUTEROL SO4 2.5/IPRATROPIUM 0.5 INH SOL 3 ML VIAL.NEB. NEB SCH ×3 (09:07→20:30)
[2018-07-26] MEDS: BUDESONIDE 0.25 MG/2ML INH SUSP VIAL NEB SCH ×2 (09:47→20:30)
--- NOTE | 2018-07-26 09:54 | EKG ---
Test Reason : Blood Pressure : / mmHG Vent. Rate : 087 BPM Atrial Rate : 312 BPM P-R Int : 000 ms QRS Dur : 084 ms QT Int : 392 ms P-R-T Axes : 000 267 -34 degrees QTc Int : 471 ms ATRIAL FIBRILLATION WITH PREMATURE VENTRICULAR OR ABERRANTLY CONDUCTED COMPLEXES RIGHT SUPERIOR AXIS DEVIATION SEPTAL INFARCT , AGE UNDETERMINED ABNORMAL ECG WHEN COMPARED WITH ECG OF 22-JUN-2018 14:58, QRS AXIS SHIFTED LEFT SEPTAL INFARCT IS NOW PRESENT NONSPECIFIC T WAVE ABNORMALITY, WORSE IN ANTEROLATERAL LEADS Confirmed by JARON ROY, CLAIRE ([id number]) on 07/26/2018 9:53:44 AM Referred By: Confirmed By:CLAIRE SALMERON MD
[2018-07-26] MEDS: FOLIC ACID 1 MG TABLET (FP) PO SCH (09:57)
[2018-07-26] MEDS: ATENOLOL 25 MG TABLET (FP) PO SCH ×2 (09:57→22:10)
[2018-07-26] MEDS: APIXABAN 5 MG TABLET PO SCH ×2 (09:57→22:10)
[2018-07-26] MEDS: PANTOPRAZOLE 20 MG TABLET (FP) PO SCH (09:58)
[2018-07-26] MEDS: ESCITALOPRAM OXALATE 20 MG TABLET (FP) PO SCH (09:58)
[2018-07-26] MEDS ORDERED: PATIENT'S OWN MEDICATION (NON-FORMULARY) (Omeprazole 20 MG) PO SCH (10:00)
--- NOTE | 2018-07-26 10:10 | CON.CARD ---
Consult Consult Specialty:: Cardiology Referred by:: Amilcar Reason for Consultation:: CHF - History of Present Illness Chief Complaint: shortness of breath History of Present Illness: 87F h/o afib, CHF, COPD (on home O2 2L), HTN, pulm HTN p/w shortnss of breath, cough for two days an diarrhea. Recent admission for CHF exacerbation. In the ER received lasix 80 mg IV, was started on BiPAP for work of breathing, and given nebs. Trop neg x 1, BNP >7900. On BiPAP now, feeling a letter better. no chest pain, palps, dizzy, lightheadedness, edema. - Past Medical History COMBAT CONTROL: Yes: Vertigo (intermittent) Cardio/Vascular: Yes: AFIB, CHF, HTN, Hyperlipdemia, Pulmonary Hypertension, Other (Sarcoidosis) Pulmonary: Yes: Asthma, COPD Renal/: Yes: Hematuria. No: Renal Calculi Psych: Yes: Depression - Past Surgical History Past Surgical History: Yes: Cholecystectomy, Hysterectomy - Alcohol/Substance Use Hx Alcohol Use: No History of Substance Use: reports: None - Smoking History Smoking history: Never smoked Have you smoked in the past 12 months: No Aproximately how many cigarettes per day: 0 - Social History Usual Living Arrangement: Other ([facility], and since developing pain has been ambulating with RW) History of Recent Travel: No Home Medications - Allergies Allergies/Adverse Reactions: Allergies Allergy/AdvReac Type Severity Reaction Status Date / Time No Known Allergies Allergy Verified 06/19/18 21:10 - Home Medications Home Medications: Ambulatory Orders Apixaban [Eliquis] 5 mg PO BID 04/16/18 Atorvastatin Ca [Lipitor] 20 mg PO HS 04/16/18 Escitalopram Oxalate [Lexapro -] 10 mg PO DAILY 04/16/18 Folic Acid 1 mg PO DAILY 04/16/18 Ipratropium [place] [Atrovent Hfa] 1 neb NEB Q4H PRN 04/17/18 Albuterol Sulfate [Proventil HFA Inhaler -] 1 - 2 inh PO QID PRN 06/20/18 Budesonide/Formeterol Fumarate [SYMBICORT 160/4.5mcg -] 1 inh PO BID 06/20/18 Furosemide [Lasix] 40 mg PO DAILY 06/20/18 Lorazepam 0.5 mg PO Q8H PRN 06/20/18 Omeprazole 20 mg PO DAILY 06/20/18 Atenolol [Tenormin] 25 mg PO BID #30 tablet 06/23/18 Polyethylene Glycol 3350 [Miralax 119 gm Btl -] 17 gm PO BID bottle 06/23/18 Sennosides [Senna -] 2 tab PO HS tablet 06/23/18 Family Disease History - Family Disease History Family Disease History: Heart Disease: Father, Mother, Other: Sister (Colon cancer) Review of Systems - Review of Systems Constitutional: reports: No Symptoms Eyes: reports: No Symptoms HENT: reports: No Symptoms Neck: reports: No Symptoms Cardiovascular: reports: Shortness of Breath Respiratory: reports: SOB Gastrointestinal: reports: No Symptoms Genitourinary: reports: No Symptoms Musculoskeletal: reports: No Symptoms Integumentary: reports: No Symptoms Neurological: reports: No Symptoms Endocrine: reports: No Symptoms Hematology/Lymphatic: reports: No Symptoms Psychiatric: reports: No Symptoms Vital Signs: Vital Signs Temperature 99.4 F 07/26/18 07:15 Pulse Rate 88 07/26/18 09:44 Respiratory Rate 21 H 07/26/18 09:44 Blood Pressure 123/53 L 07/26/18 09:44 O2 Sat by Pulse Oximetry (%) 100 07/26/18 09:44 Constitutional: Yes: Well Nourished, No Distress Eyes: Yes: Conjunctiva Clear, EOM Intact HENT: Yes: Atraumatic, Normocephalic Neck: Yes: Supple, Trachea Midline Respiratory: Yes: Regular, On BiPap, Rales, Rhonchi Gastrointestinal: Yes: Normal Bowel Sounds, Soft Cardiovascular: Yes: Pulse Irregular JVD: Yes Heart Sounds: Yes: S1, S2 Musculoskeletal: Yes: WNL Extremities: Yes: WNL Edema: No Peripheral Pulses WNL: Yes Peripheral Pulses: 2+ Left Doralis Pedis, 2+ Right Dorsalis Pedis Integumentary: No: Jaundice Neurological: Yes: Alert, Oriented ...Motor Strength: WNL Psychiatric: Yes: Alert, Oriented - Other Data Labs, Other Data: CBC, BMP 07/26/18 06:30 07/26/18 06:30 Troponin, BNP 07/25/18 07/25/18 14:44 14:44 Troponin I < 0.02 B-Natriuretic Peptide 7963.3 H Troponin, BNP 07/25/18 07/25/18 14:44 14:44 Troponin I < 0.02 B-Natriuretic Peptide 7963.3 H Assessment/Plan CXR: no acute process Echo 05/03: nl LVEF. mild RVE, mild-mod RV hypo. L/NEENA. mod MR/TR. RVSP at least 88 mmHg Echo 03/2017: Mild conc lvh. 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 patient does not remember - increase lasix to 80 mg BID, reevaluate in AM - trend Cr, lytes, I/O and daily standing weights afib: -cont atenolol -cont eliquis for AC a.e. copd, pulm sarcoid--on home O2: -on nebs, bipap, pulm consulted HTN: -well controlled -same plan HPL: -cont home statin regimen chronic non-cardiac cp syndrome: - trop neg x 1, no chest pain now -suspect sx's mskel or sec to hi filling pressures/CHF vs pulm sarcoid dz burden
--- NOTE | 2018-07-26 13:20 | PN ---
Teaching Attending Note Name of Resident: Brennan Gifford ATTENDING PHYSICIAN STATEMENT I saw and evaluated the patient. I reviewed the resident's note and discussed the case with the resident. I agree with the resident's findings and plan as documented with exceptions below. SUBJECTIVE: Patient seen and examined. breathing, oriented x 3, feels better, no chest pain or new concerns. OBJECTIVE: Vital Signs Period Temp Pulse Resp BP Sys/Garza Pulse Ox Last 24 Hr 98.1 F-99.4 F 82-103 19-26 112-153/53-92 99-100 Intake & Output 07/23/18 07/24/18 07/25/18 07/26/18 23:59 23:59 23:59 23:59 Output Total 3000 1600 Balance -3000 -1600 Weight 154 lb General: sitting in bed, on bipap, awake, appropriately responding, Ox3 neck: neck vein distension, JVD exam limited given bipap Chest: bibasilar fine rales with occasional wheezing, positive air entry Abdomen:Soft, NT Extremities: 1+ pedal pitting edema Active Medications Albuterol Sulfate (Ventolin 0.083% Nebulizer Soln -) 1 amp NEB Q8H PRN PRN Reason: SHORT OF BREATH/WHEEZING Albuterol/Ipratropium (Duoneb -) 1 amp NEB RTID [facility] Last Admin: 07/26/18 09:07 Dose: 1 amp Apixaban (Eliquis -) 5 mg PO BID [facility] Last Admin: 07/26/18 09:57 Dose: 5 mg Atenolol (Tenormin -) 25 mg PO BID [facility] Last Admin: 07/26/18 09:57 Dose: 25 mg Atorvastatin Calcium (Lipitor -) 20 mg PO HS [facility] Last Admin: 07/25/18 23:07 Dose: 20 mg Budesonide (Pulmicort 0.25 Mg Nebulizer -) 1 amp NEB RBID [facility] Last Admin: 07/26/18 09:47 Dose: 1 amp Escitalopram Oxalate (Lexapro -) 10 mg PO DAILY [facility] Last Admin: 07/26/18 09:58 Dose: 10 mg Folic Acid (Folic Acid -) 1 mg PO DAILY [facility] Last Admin: 07/26/18 09:57 Dose: 1 mg Furosemide (Lasix Injection -) 80 mg IVPB BID@0600,1400 [facility] Pantoprazole Sodium (Protonix -) 20 mg PO DAILY [facility] Last Admin: 07/26/18 09:58 Dose: 20 mg Laboratory Results - last 24 hr 07/25/18 07/25/18 07/25/18 14:44 14:44 15:10 WBC 4.1 RBC 5.25 H Hgb 11.0 Hct 37.2 D MCV 70.8 L MCH 21.0 L MCHC 29.7 L RDW 21.0 H Plt Count 145 MPV 9.4 Absolute Neuts (auto) 1.3 L Neutrophils % 32.0 L D Neutrophils % (Manual) 36.0 L Band Neutrophils % 2.0 Lymphocytes % 41.3 H Lymphocytes % (Manual) 50.0 H D Monocytes % 25.3 H Monocytes % (Manual) 9 D Eosinophils % 1.0 Eosinophils % (Manual) 1.0 D Basophils % 0.4 Basophils % (Manual) 0.0 Myelocytes % (Man) 1 Nucleated RBC % 0 Metamyelocytes 0 Hypochromia 2+ Platelet Estimate Adequate Platelet Comment Large platelets Anisocytosis 2+ Anticoagulation Therapy Puncture Site ABG pH ABG pCO2 at Pt Temp ABG pO2 at Pt Temp ABG HCO3 ABG O2 Sat (Measured) ABG O2 Content ABG Base Excess Junior Test VBG pH POC VBG pCO2 POC VBG pO2 Mixed VBG HCO3 O2 Delivery Device Oxygen Flow Rate Vent Mode Vent Rate Mechanical Rate Pressure Support Vent Sodium 136 Potassium 3.3 L Chloride 100 Carbon Dioxide 33 H Anion Gap 3 L BUN 8 Creatinine 0.7 Creat Clearance w eGFR > 60 Random Glucose 97 Calcium 9.4 Phosphorus Magnesium Total Bilirubin 1.1 H AST 20 ALT 17 Alkaline Phosphatase 83 Troponin I < 0.02 B-Natriuretic Peptide 7963.3 H Total Protein 6.9 Albumin 3.3 L 07/25/18 07/25/18 07/26/18 15:10 18:35 06:30 WBC 6.9 RBC 5.24 H Hgb 10.8 Hct 36.8 MCV 70.2 L MCH 20.7 L MCHC 29.4 L RDW 20.4 H Plt Count 138 MPV 9.0 Absolute Neuts (auto) 5.1 Neutrophils % 74.0 D Neutrophils % (Manual) Band Neutrophils % Lymphocytes % 11.4 D Lymphocytes % (Manual) Monocytes % 13.9 H Monocytes % (Manual) Eosinophils % 0.2 Eosinophils % (Manual) Basophils % 0.5 Basophils % (Manual) Myelocytes % (Man) Nucleated RBC % 0 Metamyelocytes Hypochromia Platelet Estimate Platelet Comment Anisocytosis Anticoagulation Therapy No Result Required. Puncture Site No Result Required. ABG pH 7.32 L ABG pCO2 at Pt Temp 71.7 H* D ABG pO2 at Pt Temp 112.0 H D ABG HCO3 36.1 H ABG O2 Sat (Measured) 97.9 ABG O2 Content 14.5 L ABG Base Excess 8.5 H Junior Test Positive VBG pH 7.26 L POC VBG pCO2 81.5 H* D POC VBG pO2 27.4 L D Mixed VBG HCO3 35.2 H O2 Delivery Device Bipap Oxygen Flow Rate 60 Vent Mode S/t Vent Rate 15 Mechanical Rate No Result Required. Pressure Support Vent 14/4 Sodium Potassium Chloride Carbon Dioxide Anion Gap BUN Creatinine Creat Clearance w eGFR Random Glucose Calcium Phosphorus Magnesium Total Bilirubin AST ALT Alkaline Phosphatase Troponin I B-Natriuretic Peptide Total Protein Albumin 07/26/18 07/26/18 06:30 06:33 WBC RBC Hgb Hct MCV MCH MCHC RDW Plt Count MPV Absolute Neuts (auto) Neutrophils % Neutrophils % (Manual) Band Neutrophils % Lymphocytes % Lymphocytes % (Manual) Monocytes % Monocytes % (Manual) Eosinophils % Eosinophils % (Manual) Basophils % Basophils % (Manual) Myelocytes % (Man) Nucleated RBC % Metamyelocytes Hypochromia Platelet Estimate Platelet Comment Anisocytosis Anticoagulation Therapy No Result Required. Puncture Site Right radial ABG pH 7.32 L ABG pCO2 at Pt Temp 76.1 H* ABG pO2 at Pt Temp 101.0 H ABG HCO3 37.9 H ABG O2 Sat (Measured) 97.5 ABG O2 Content 13.4 L ABG Base Excess 10.0 H Junior Test Positive VBG pH POC VBG pCO2 POC VBG pO2 Mixed VBG HCO3 O2 Delivery Device Bipap Oxygen Flow Rate 60% Vent Mode S/t Vent Rate No Result Required. Mechanical Rate No Result Required. Pressure Support Vent 14/4 Sodium 141 Potassium 3.5 Chloride 99 Carbon Dioxide 38 H Anion Gap 4 L BUN 7 Creatinine 0.6 Creat Clearance w eGFR > 60 Random Glucose 89 Calcium 8.9 Phosphorus 3.9 Magnesium 2.1 Total Bilirubin 1.0 AST 22 ALT 14 Alkaline Phosphatase 74 Troponin I B-Natriuretic Peptide Total Protein 6.2 L Albumin 2.9 L ASSESSMENT AND PLAN: 81 yof with PMhx of sarcoidosis diagnosed in 1985, Chronic diastolic HF, severe pulmonary HTN, COPD on 2L home oxygen, AFib on eliquis, HTN, HLD, frequent admissions with CHF/respiratory distress admitted with acute hypercapneic/ hypoxic respiratory failure, CHF exaerbation -Acute hypercapneic/hypoxic respiratory failure -Acute diastolic heart failure exacerbation -Severe pulmonary HTN -Cor Pulmonale -Sarcoidosis -COPD on 2L home oxygen -Afib on eliquis -HTN -HLD Plan: BIpap, taper as tolerated. ABg noted. Cardiology input noted. Lasix 80 mg IV BID, strict I/Os and daily weights. Monitor renal function/electrolytes. Hold off on steroids for now. Standing and prn nebs. ICU/pulmonary consult Continue atenolol/apixaban. DVTPPX as above Dispo ICU level of care. Transfer to floors when respiratory status improved Total critical care time spent 35 min.
--- NOTE | 2018-07-26 13:46 | PN ---
Physical Exam: SUBJECTIVE: Patient seen and examined. Pt. states that her breathing has been the same as last night. Pt. endorses abdominal pain, unable to localize area. Pt. endorses chronic numbness in the lower extremities that is constant. Pt. endorses lower back pain. 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 Pt. [place] that [facility] [place]. This afternoon Pt.'s breathing improved now on Ventimask 35%. OBJECTIVE: Vital Signs Period Temp Pulse Resp BP Sys/Garza Pulse Ox Last 24 Hr 99.4 F 82-103 19-23 112-144/53-87 99-100 GENERAL: The patient is awake, alert, and fully oriented, in acute respiratory distress. EYES: PERRL, sclera anicteric, conjunctiva clear. No ptosis. ENT: Ears normal, nares patent, moist mucous membranes.- limited, on BiPAP machine LUNGS: Breath sounds equal, clear to auscultation bilaterally, no wheezes, no crackles, labored breathing, some accessory muscle use. HEART: Tachycardic, irregular rate and rhythm, nml S1, S2 ABDOMEN: Soft, diffuse abdominal tenderness?, nondistended, normoactive bowel sounds, no guarding, no rebound EXTREMITIES: 1+ right radial pulse, warm, well-perfused, no calf tenderness, no edema. Dorsal pedal pulses not appreciated. Less than 2 sec. capillary refill. NEUROLOGICAL: gait not observed. PSYCH: Normal mood, normal affect. SKIN: Warm, dry, normal turgor Laboratory Results - last 24 hr 07/25/18 07/25/18 07/25/18 14:44 14:44 15:10 WBC 4.1 RBC 5.25 H Hgb 11.0 Hct 37.2 D MCV 70.8 L MCH 21.0 L MCHC 29.7 L RDW 21.0 H Plt Count 145 MPV 9.4 Absolute Neuts (auto) 1.3 L Neutrophils % 32.0 L D Neutrophils % (Manual) 36.0 L Band Neutrophils % 2.0 Lymphocytes % 41.3 H Lymphocytes % (Manual) 50.0 H D Monocytes % 25.3 H Monocytes % (Manual) 9 D Eosinophils % 1.0 Eosinophils % (Manual) 1.0 D Basophils % 0.4 Basophils % (Manual) 0.0 Myelocytes % (Man) 1 Nucleated RBC % 0 Metamyelocytes 0 Hypochromia 2+ Platelet Estimate Adequate Platelet Comment Large platelets Anisocytosis 2+ Anticoagulation Therapy Puncture Site ABG pH ABG pCO2 at Pt Temp ABG pO2 at Pt Temp ABG HCO3 ABG O2 Sat (Measured) ABG O2 Content ABG Base Excess Junior Test VBG pH POC VBG pCO2 POC VBG pO2 Mixed VBG HCO3 O2 Delivery Device Oxygen Flow Rate Vent Mode Vent Rate Mechanical Rate Pressure Support Vent Sodium 136 Potassium 3.3 L Chloride 100 Carbon Dioxide 33 H Anion Gap 3 L BUN 8 Creatinine 0.7 Creat Clearance w eGFR > 60 Random Glucose 97 Calcium 9.4 Phosphorus Magnesium Total Bilirubin 1.1 H AST 20 ALT 17 Alkaline Phosphatase 83 Troponin I < 0.02 B-Natriuretic Peptide 7963.3 H Total Protein 6.9 Albumin 3.3 L 07/25/18 07/25/18 07/26/18 15:10 18:35 06:30 WBC 6.9 RBC 5.24 H Hgb 10.8 Hct 36.8 MCV 70.2 L MCH 20.7 L MCHC 29.4 L RDW 20.4 H Plt Count 138 MPV 9.0 Absolute Neuts (auto) 5.1 Neutrophils % 74.0 D Neutrophils % (Manual) Band Neutrophils % Lymphocytes % 11.4 D Lymphocytes % (Manual) Monocytes % 13.9 H Monocytes % (Manual) Eosinophils % 0.2 Eosinophils % (Manual) Basophils % 0.5 Basophils % (Manual) Myelocytes % (Man) Nucleated RBC % 0 Metamyelocytes Hypochromia Platelet Estimate Platelet Comment Anisocytosis Anticoagulation Therapy No Result Required. Puncture Site No Result Required. ABG pH 7.32 L ABG pCO2 at Pt Temp 71.7 H* D ABG pO2 at Pt Temp 112.0 H D ABG HCO3 36.1 H ABG O2 Sat (Measured) 97.9 ABG O2 Content 14.5 L ABG Base Excess 8.5 H Junior Test Positive VBG pH 7.26 L POC VBG pCO2 81.5 H* D POC VBG pO2 27.4 L D Mixed VBG HCO3 35.2 H O2 Delivery Device Bipap Oxygen Flow Rate 60 Vent Mode S/t Vent Rate 15 Mechanical Rate No Result Required. Pressure Support Vent 14/4 Sodium Potassium Chloride Carbon Dioxide Anion Gap BUN Creatinine Creat Clearance w eGFR Random Glucose Calcium Phosphorus Magnesium Total Bilirubin AST ALT Alkaline Phosphatase Troponin I B-Natriuretic Peptide Total Protein Albumin 07/26/18 07/26/18 06:30 06:33 WBC RBC Hgb Hct MCV MCH MCHC RDW Plt Count MPV Absolute Neuts (auto) Neutrophils % Neutrophils % (Manual) Band Neutrophils % Lymphocytes % Lymphocytes % (Manual) Monocytes % Monocytes % (Manual) Eosinophils % Eosinophils % (Manual) Basophils % Basophils % (Manual) Myelocytes % (Man) Nucleated RBC % Metamyelocytes Hypochromia Platelet Estimate Platelet Comment Anisocytosis Anticoagulation Therapy No Result Required. Puncture Site Right radial ABG pH 7.32 L ABG pCO2 at Pt Temp 76.1 H* ABG pO2 at Pt Temp 101.0 H ABG HCO3 37.9 H ABG O2 Sat (Measured) 97.5 ABG O2 Content 13.4 L ABG Base Excess 10.0 H Junior Test Positive VBG pH POC VBG pCO2 POC VBG pO2 Mixed VBG HCO3 O2 Delivery Device Bipap Oxygen Flow Rate 60% Vent Mode S/t Vent Rate No Result Required. Mechanical Rate No Result Required. Pressure Support Vent 14/4 Sodium 141 Potassium 3.5 Chloride 99 Carbon Dioxide 38 H Anion Gap 4 L BUN 7 Creatinine 0.6 Creat Clearance w eGFR > 60 Random Glucose 89 Calcium 8.9 Phosphorus 3.9 Magnesium 2.1 Total Bilirubin 1.0 AST 22 ALT 14 Alkaline Phosphatase 74 Troponin I B-Natriuretic Peptide Total Protein 6.2 L Albumin 2.9 L Active Medications Current Medications Albuterol Sulfate (Ventolin 0.083% Nebulizer Soln -) 1 amp NEB Q8H PRN PRN Reason: SHORT OF BREATH/WHEEZING Albuterol/Ipratropium (Duoneb -) 1 amp NEB RTID [facility] Last Admin: 07/26/18 09:07 Dose: 1 amp Apixaban (Eliquis -) 5 mg PO BID [facility] Last Admin: 07/26/18 09:57 Dose: 5 mg Atenolol (Tenormin -) 25 mg PO BID [facility] Last Admin: 07/26/18 09:57 Dose: 25 mg Atorvastatin Calcium (Lipitor -) 20 mg PO HS [facility] Last Admin: 07/25/18 23:07 Dose: 20 mg Budesonide (Pulmicort 0.25 Mg Nebulizer -) 1 amp NEB RBID [facility] Last Admin: 07/26/18 09:47 Dose: 1 amp Escitalopram Oxalate (Lexapro -) 10 mg PO DAILY [facility] Last Admin: 07/26/18 09:58 Dose: 10 mg Folic Acid (Folic Acid -) 1 mg PO DAILY [facility] Last Admin: 07/26/18 09:57 Dose: 1 mg Furosemide (Lasix Injection -) 80 mg IVPB BID@0600,1400 [facility] Pantoprazole Sodium (Protonix -) 20 mg PO DAILY [facility] Last Admin: 07/26/18 09:58 Dose: 20 mg ASSESSMENT/PLAN: An 87 yo F with PMH of CHF, recent chf admission 1 mo ago requiring diuresis, COPD on 2L NC, AF on eliquis, HTN, pulmonary HTN, who presented with sob and productive cough x 2 d, as well as diarrhea x 4d, found to be in acute hypercarbic hypoxic failure. #Pulmonary -Acute on chronic hypercarbic hypoxic failure, likely 2/2 fluid overload C/w BiPAP/ [place] NC/ Ventimask to keep SpO2 >90% Duonebs RQID Albuterol Q8H PRN c/w Budesonide RBID hold systemic steroids at this time COPD on 2L NC #Cardiovascular -Acute on Chronic CHF exacerbation Given Lasix 80mg IVP in ED resume home dose of Lasix 40mg BID monitor for euvolemia Strict Is & Os Daily weights TTE earlier this year RV ef mod reduced, LV EF enl, moderate TR, nild/mod MR -HTN c/w Atenolol 25mg BID with holding parameters -HLD c/w Atorvastatin -A.Fib c/w Atenolol and Eliquis 5mg BID #Gastroenterology -Acid Reflux c/w Protonix 20mg #Psychiatry -Depression c/w Escitalopram 10 mg #F/E/N -Fluid restriction to 2L -monitor electrolytes and replete as needed -NPO Visit type - Emergency Visit Emergency Visit: Yes ED Registration Date: 07/25/18 Care time: The patient presented to the Emergency Department on the above date and was hospitalized for further evaluation of their emergent condition. - New Patient This patient is new to me today: Yes Date on this admission: 08/01/18 - Critical Care Critical Care patient: No - Discharge Referral Referred to [facility] Med [facility].C.: No
--- NOTE | 2018-07-26 14:05 | PN ---
Teaching Attending Note Name of Resident: Wilfred Tilley ATTENDING PHYSICIAN STATEMENT I saw and evaluated the patient. I reviewed the resident's note and discussed the case with the resident. I agree with the resident's findings and plan as documented. SUBJECTIVE: Pt seen and examined in the ER. Remains on BiPAP 50% FiO2, breathing better. Diuresed well with lasix. OBJECTIVE: Vital Signs Period Temp Pulse Resp BP Sys/Garza Pulse Ox Last 24 Hr 99.4 F 82-103 19-23 112-144/53-87 99-100 Intake & Output 07/23/18 07/24/18 07/25/18 07/26/18 23:59 23:59 23:59 23:59 Output Total 3000 1600 Balance -3000 -1600 Weight 69.853 kg Gen: mildly tachypneic Heart: RRR Lung: scattered rhonchi Abd: soft, nontender Ext: no edema CBC, BMP 07/26/18 06:30 07/26/18 06:30 Active Medications Albuterol Sulfate (Ventolin 0.083% Nebulizer Soln -) 1 amp NEB Q8H PRN PRN Reason: SHORT OF BREATH/WHEEZING Albuterol/Ipratropium (Duoneb -) 1 amp NEB RTID [facility] Last Admin: 07/26/18 09:07 Dose: 1 amp Apixaban (Eliquis -) 5 mg PO BID [facility] Last Admin: 07/26/18 09:57 Dose: 5 mg Atenolol (Tenormin -) 25 mg PO BID [facility] Last Admin: 07/26/18 09:57 Dose: 25 mg Atorvastatin Calcium (Lipitor -) 20 mg PO HS [facility] Last Admin: 07/25/18 23:07 Dose: 20 mg Budesonide (Pulmicort 0.25 Mg Nebulizer -) 1 amp NEB RBID [facility] Last Admin: 07/26/18 09:47 Dose: 1 amp Escitalopram Oxalate (Lexapro -) 10 mg PO DAILY [facility] Last Admin: 07/26/18 09:58 Dose: 10 mg Folic Acid (Folic Acid -) 1 mg PO DAILY [facility] Last Admin: 07/26/18 09:57 Dose: 1 mg Furosemide (Lasix Injection -) 80 mg IVPB BID@0600,1400 [facility] Pantoprazole Sodium (Protonix -) 20 mg PO DAILY [facility] Last Admin: 07/26/18 09:58 Dose: 20 mg ASSESSMENT AND PLAN: Acute on Chronic Hypoxic and Hypercapneic Respiratory Failure Acute on Chronic Diastolic Heart Failure COPD Sarcoidosis Severe Pulmonary HTN Atrial Fibrillation HTN Hyperlipidemia - continue lasix - monitor urine output, creatinine - daily weights - O2 to keep SpO2>90% - inhaled bronchodilators - can defer systemic steroids at this time - rate control - continue anticoagulation - mental status has improved, placed on ventimask 35% and saturating low-mid 90s with mild tachypnea - can monitor on telemetry with pulse oximetry monitoring - will follow with you, please call if any change in clinical status critical care time spent in reviewing chart, evaluating patient and formulating plan 35 min
[2018-07-26] MEDS: FUROSEMIDE 100 MG/10 ML INJECTABLE VIAL IVPB SCH (14:50)
--- NOTE | 2018-07-26 18:10 | PN ---
Physical Exam: SUBJECTIVE: Patient seen and examined this AM. She states that her breathing is better today, but complains that she is having abdominal pain and back pain which are chronic, but worse this AM. OBJECTIVE: Vital Signs Period Temp Pulse Resp BP Sys/Garza Pulse Ox Last 24 Hr 98.3 F-99.4 F 82-103 19-23 112-137/53-87 94-100 GENERAL: Somnolent on exam, Oriented to person, place, and time, mild distress HEAD: Normocephalic, atraumatic. EYES: PERRL, no scleral icterus EARS, NOSE, THROAT: Dry mucous membranes. NECK: supple without lymphadenopathy LUNGS: Course breath sounds diffusely, expiratory wheezes, on bilevel ventilation HEART: Irregularly irregular, regular rate, normal S1 and S2 without murmur ABDOMEN: Soft, nontender to palpation, normoactive bowel sounds EXTREMITIES: 2+ pulses, warm, well-perfused. 1+ edema of LE b/l NEUROLOGICAL: Cranial nerves II-XII grossly intact. Labored speech, likely due to respiratory status Laboratory Results - last 24 hr 07/25/18 07/26/18 07/26/18 18:35 06:30 06:30 WBC 6.9 RBC 5.24 H Hgb 10.8 Hct 36.8 MCV 70.2 L MCH 20.7 L MCHC 29.4 L RDW 20.4 H Plt Count 138 MPV 9.0 Absolute Neuts (auto) 5.1 Neutrophils % 74.0 D Lymphocytes % 11.4 D Monocytes % 13.9 H Eosinophils % 0.2 Basophils % 0.5 Nucleated RBC % 0 Anticoagulation Therapy No Result Required. Puncture Site No Result Required. ABG pH 7.32 L ABG pCO2 at Pt Temp 71.7 H* D ABG pO2 at Pt Temp 112.0 H D ABG HCO3 36.1 H ABG O2 Sat (Measured) 97.9 ABG O2 Content 14.5 L ABG Base Excess 8.5 H Junior Test Positive O2 Delivery Device Bipap Oxygen Flow Rate 60 Vent Mode S/t Vent Rate 15 Mechanical Rate No Result Required. Pressure Support Vent 14/4 Sodium 141 Potassium 3.5 Chloride 99 Carbon Dioxide 38 H Anion Gap 4 L BUN 7 Creatinine 0.6 Creat Clearance w eGFR > 60 Random Glucose 89 Calcium 8.9 Phosphorus 3.9 Magnesium 2.1 Total Bilirubin 1.0 AST 22 ALT 14 Alkaline Phosphatase 74 Total Protein 6.2 L Albumin 2.9 L 07/26/18 06:33 WBC RBC Hgb Hct MCV MCH MCHC RDW Plt Count MPV Absolute Neuts (auto) Neutrophils % Lymphocytes % Monocytes % Eosinophils % Basophils % Nucleated RBC % Anticoagulation Therapy No Result Required. Puncture Site Right radial ABG pH 7.32 L ABG pCO2 at Pt Temp 76.1 H* ABG pO2 at Pt Temp 101.0 H ABG HCO3 37.9 H ABG O2 Sat (Measured) 97.5 ABG O2 Content 13.4 L ABG Base Excess 10.0 H Junior Test Positive O2 Delivery Device Bipap Oxygen Flow Rate 60% Vent Mode S/t Vent Rate No Result Required. Mechanical Rate No Result Required. Pressure Support Vent 14/4 Sodium Potassium Chloride Carbon Dioxide Anion Gap BUN Creatinine Creat Clearance w eGFR Random Glucose Calcium Phosphorus Magnesium Total Bilirubin AST ALT Alkaline Phosphatase Total Protein Albumin Active Medications Generic Name Dose Route Start Last Admin Trade Name Freq PRN Reason Stop Dose Admin Albuterol Sulfate 1 amp 07/25/18 17:55 Ventolin 0.083% Nebulizer Soln - NEB Q8H PRN SHORT OF BREATH/WHEEZING Albuterol/Ipratropium 1 amp 07/25/18 20:00 07/26/18 15:00 Duoneb - NEB 1 amp RTID LISA Administration Apixaban 5 mg 07/25/18 22:00 07/26/18 09:57 Eliquis - PO 5 mg BID LISA Administration Atenolol 25 mg 07/25/18 22:00 07/26/18 09:57 Tenormin - PO 25 mg BID LISA Administration Atorvastatin Calcium 20 mg 07/25/18 22:00 07/25/18 23:07 Lipitor - PO 20 mg HS LISA Administration Budesonide 1 amp 07/25/18 20:00 07/26/18 09:47 Pulmicort 0.25 Mg Nebulizer - NEB 1 amp RBID LISA Administration Escitalopram Oxalate 10 mg 07/26/18 10:00 07/26/18 09:58 Lexapro - PO 10 mg DAILY LISA Administration Folic Acid 1 mg 07/26/18 10:00 07/26/18 09:57 Folic Acid - PO 1 mg DAILY LISA Administration Furosemide 80 mg 07/26/18 14:00 07/26/18 14:50 Lasix Injection - IVPB 80 mg BID@0600,1400 LISA Administration Pantoprazole Sodium 20 mg 07/26/18 10:00 07/26/18 09:58 Protonix - PO 20 mg DAILY LISA Administration ASSESSMENT/PLAN: 87 yo female with PMH of a-fib (rate controlled, on eliquis), CHF, COPD (on 2L home o2), HTN, pulmonary HTN, Depression, admitted with complaint of SOB with a cough productive of clear sputum for 2 days Acute Hypoxic Respiratory Distress -Likely fluid overloaded, unlikely pneumonia with no elevation of WBCs and pt afebrile, less likely COPD Exacerbation -Telemetry monitoring -Cardiology consulted -Lasix 40 mg IV BID -I&Os, Daily Weights -Ventimask at 30% tolerating well -Budesonide NEBs BID -Albuterol NEBs PRN Q8 -Pulmicort NEBs BID HTN and Pulmonary HTN -Controlled on Home Atenolol 25 mg PO BID -Keep B.P. < 150 systolic with hx Pulmonary HTN A-fib -Rate is well controlled on Atenolol 25 mg PO BID -On Eliquis 5 mg PO BID HLD -Lipitor 20 mg PO HS Depression -Stable on home Lexapro 10 mg PO Daily DVT Prophylaxis -On eliquis 5 mg PO BID FEN -Fluids: None -Electrolytes: No electrolyte abnormalities, no need for BMP in AM -Nutrition: NPO, should be restarted as tolerated Disposition Telemetry Visit type - Emergency Visit Emergency Visit: Yes ED Registration Date: 07/25/18 Care time: The patient presented to the Emergency Department on the above date and was hospitalized for further evaluation of their emergent condition. - New Patient This patient is new to me today: No - Critical Care Critical Care patient: Yes Total Critical Care Time (in minutes): 40 Critical Care Statement: The care of this patient involved high complexity decision making to prevent further life threatening deterioration of the patient 's condition and/or to evaluate & treat vital organ system(s) failure or risk of failure. - Discharge Referral Referred to [facility] No
[2018-07-26] MEDS: ATORVASTATIN CA 20 MG TABLET (FP) PO SCH (22:10)
[2018-07-26] MEDS ORDERED: ATORVASTATIN CA 10 MG TABLET (FP) ONE (22:11)
[2018-07-27] MEDS ORDERED: ACETAMINOPHEN 325 MG TABLET (FP) PO ONE (03:07)
[2018-07-27] MEDS ORDERED: PT OWN MED DRAWER 7, Y5N ONE (04:15)
[2018-07-27] MEDS: FUROSEMIDE 100 MG/10 ML INJECTABLE VIAL IVPB SCH ×2 (05:56→14:15)
[2018-07-27 06:52] LABS: ANION GAP 5 MMOL/L (8-16); BLOOD UREA NITROGEN 10 mg/dL (7-18); CALCIUM 9.3 mg/dL (8.5-10.1); CHLORIDE 97 mmol/L (98-107); CO2 40 mmol/L (21-32); CREATININE 0.7 mg/dL (0.55-1.3); GLUCOSE,RANDOM 107 mg/dL (74-106); MAGNESIUM 1.7 mg/dL (1.8-2.4); PHOSPHOROUS 2.7 mg/dL (2.5-4.9); POTASSIUM 3.4 mmol/L (3.5-5.1); SODIUM 142 mmol/L (136-145)
[2018-07-27] MEDS: BUDESONIDE 0.25 MG/2ML INH SUSP VIAL NEB SCH ×2 (07:30→20:55)
[2018-07-27] MEDS: ALBUTEROL SO4 2.5/IPRATROPIUM 0.5 INH SOL 3 ML VIAL.NEB. NEB SCH ×3 (07:30→20:55)
--- NOTE | 2018-07-27 07:48 | PN ---
Teaching Attending Note Name of Resident: Brennan Gifford ATTENDING PHYSICIAN STATEMENT I saw and evaluated the patient. I reviewed the resident's note and discussed the case with the resident. I agree with the resident's findings and plan as documented with exceptions below. SUBJECTIVE: Patient seen and examined. breathing improved. no new complaints. Having lunch OBJECTIVE: Vital Signs Period Temp Pulse Resp BP Sys/Garza Pulse Ox Last 24 Hr 98.3 F-99.4 F 83-92 18-29 112-129/53-81 87-100 Intake & Output 07/24/18 07/25/18 07/26/18 07/27/18 23:59 23:59 23:59 23:59 Output Total 3000 1600 500 Balance -3000 -1600 -500 Weight 154 lb 158 lb 9.6 oz General: sitting in bed, mild tachypnea, able to talk in full sentences Chest: scattered expiratory wheezing and rales, improved air entry Abdomen: soft, obese, NT Extremities: 2+ pedal edema, improved from yesterday Home Medications Medication Instructions Recorded Apixaban [Eliquis] 5 mg PO BID 04/16/18 Atorvastatin Ca [Lipitor] 20 mg PO HS 04/16/18 Escitalopram Oxalate [Lexapro -] 10 mg PO DAILY 04/16/18 Folic Acid 1 mg PO DAILY 04/16/18 Ipratropium Weir [Atrovent Hfa] 1 neb NEB Q4H PRN 04/17/18 Albuterol Sulfate [Proventil HFA 1 - 2 inh PO QID PRN 06/20/18 Inhaler -] Budesonide/Formeterol Fumarate 1 inh PO BID 06/20/18 [SYMBICORT 160/4.5mcg -] Furosemide [Lasix] 40 mg PO DAILY 06/20/18 Lorazepam 0.5 mg PO Q8H PRN 06/20/18 Omeprazole 20 mg PO DAILY 06/20/18 Atenolol [Tenormin] 25 mg PO BID #30 tablet 06/23/18 Polyethylene Glycol 3350 [Miralax 17 gm PO BID bottle 06/23/18 119 gm Btl -] Sennosides [Senna -] 2 tab PO HS tablet 06/23/18 Active Medications Albuterol Sulfate (Ventolin 0.083% Nebulizer Soln -) 1 amp NEB Q8H PRN PRN Reason: SHORT OF BREATH/WHEEZING Albuterol/Ipratropium (Duoneb -) 1 amp NEB RTID [facility] Last Admin: 07/26/18 20:30 Dose: 1 amp Apixaban (Eliquis -) 5 mg PO BID [facility] Last Admin: 07/26/18 22:10 Dose: 5 mg Atenolol (Tenormin -) 25 mg PO BID [facility] Last Admin: 07/26/18 22:10 Dose: 25 mg Atorvastatin Calcium (Lipitor -) 20 mg PO HS [facility] Last Admin: 07/26/18 22:10 Dose: 20 mg Budesonide (Pulmicort 0.25 Mg Nebulizer -) 1 amp NEB RBID [facility] Last Admin: 07/26/18 20:30 Dose: 1 amp Escitalopram Oxalate (Lexapro -) 10 mg PO DAILY [facility] Last Admin: 07/26/18 09:58 Dose: 10 mg Folic Acid (Folic Acid -) 1 mg PO DAILY [facility] Last Admin: 07/26/18 09:57 Dose: 1 mg Furosemide (Lasix Injection -) 80 mg IVPB BID@0600,1400 [facility] Last Admin: 07/27/18 05:56 Dose: 80 mg Potassium Chloride (Potassium Chloride 10 Meq Premix Ivpb -) 10 meq in 100 mls @ 100 mls/hr IVPB Q60M [facility] Stop: 07/27/18 10:44 Magnesium Oxide (Mag-Ox -) 800 mg PO DAILY [facility] Stop: 07/29/18 10:01 Magnesium Sulfate (Magnesium Sulfate) 2 gm IVPB ONCE ONE Stop: 07/27/18 07:44 Pantoprazole Sodium (Protonix -) 20 mg PO DAILY [facility] Last Admin: 07/26/18 09:58 Dose: 20 mg Laboratory Results - last 24 hr 07/26/18 07/26/18 07/27/18 06:30 06:30 05:30 WBC 6.9 RBC 5.24 H Hgb 10.8 Hct 36.8 MCV 70.2 L MCH 20.7 L MCHC 29.4 L RDW 20.4 H Plt Count 138 MPV 9.0 Absolute Neuts (auto) 5.1 Neutrophils % 74.0 D Lymphocytes % 11.4 D Monocytes % 13.9 H Eosinophils % 0.2 Basophils % 0.5 Nucleated RBC % 0 Sodium 141 142 Potassium 3.5 3.4 L Chloride 99 97 L Carbon Dioxide 38 H 40 H Anion Gap 4 L 5 L BUN 7 10 Creatinine 0.6 0.7 Creat Clearance w eGFR > 60 > 60 Random Glucose 89 107 H Calcium 8.9 9.3 Phosphorus 3.9 2.7 Magnesium 2.1 1.7 L Total Bilirubin 1.0 AST 22 ALT 14 Alkaline Phosphatase 74 Total Protein 6.2 L Albumin 2.9 L ASSESSMENT AND PLAN: 81 yof with PMhx of sarcoidosis diagnosed in 1985, Chronic diastolic HF, severe pulmonary HTN, COPD on 2L home oxygen, AFib on eliquis, HTN, HLD, frequent admissions with CHF/respiratory distress admitted with acute hypercapneic/ hypoxic respiratory failure, CHF exaerbation -Acute hypercapneic/hypoxic respiratory failure -Acute diastolic heart failure exacerbation -Severe pulmonary HTN -Hypokalemia -Hypomagnesemia -Cor Pulmonale -Sarcoidosis -COPD on 2L home oxygen -Afib on eliquis -HTN -HLD Plan: Overnight events noted. Resumed bipap. repeat ABG noted. Continue bipap for now. Pulmonary input noted, Agree with solumedrol, standing and prn nebs. Continue lasix 80 mg IV BID, strict I/os, daily weights. Cardiology input noted. Replete K/phos prn. Continue atenolol/apixaban. DVTPPX as above Dispo pending clinical improvement, continue telemetry. Plan discussed with patient in detail,all questions answered.
[2018-07-27 08:51] LABS: ARTERIAL BLD GAS O2 SATURATION 74.7 % (90-98.9); ARTERIAL BLOOD GAS BASE EXCESS 15.8 meq/l (-2-2)
[2018-07-27 08:55] LABS: ALLENS TEST POSITIVE
[2018-07-27 08:58] LABS: ARTERIAL BLOOD GAS PCO2 64.7 mmHg (35-45); ARTERIAL BLOOD GAS pH 7.43 (7.35-7.45)
[2018-07-27] MEDS ORDERED: MAGNESIUM SULF 50% (8.12 MEQ/2 ML-1 GM VIAL) IVPB ONE (09:00)
[2018-07-27] MEDS: PANTOPRAZOLE 20 MG TABLET (FP) PO SCH (09:13)
[2018-07-27] MEDS: APIXABAN 5 MG TABLET PO SCH ×2 (09:19→21:26)
[2018-07-27] MEDS: ATENOLOL 25 MG TABLET (FP) PO SCH ×2 (09:21→21:26)
[2018-07-27] MEDS: FOLIC ACID 1 MG TABLET (FP) PO SCH (09:22)
[2018-07-27] MEDS: ESCITALOPRAM OXALATE 20 MG TABLET (FP) PO SCH (09:22)
[2018-07-27] MEDS: MAGNESIUM OXIDE 400 MG TABLET (FP) PO SCH (09:23)
[2018-07-27] MEDS: KCL 10 MEQ IVPB 10 MEQ/100 ML INFUS.BAG IVPB SCH ×3 (09:32→12:13)
--- NOTE | 2018-07-27 09:43 | PN ---
Physical Exam: SUBJECTIVE: Patient seen and examined this AM. She is complaining of being short of breath. She says that the bipap machine she feels makes her worse sometimes and that she does not like it. Pt was tachypnic and noted to be saturating 79-82%. Discussed with patient that she needs to go back on the bipap machine for now and she was agreeable. OBJECTIVE: Vital Signs Period Temp Pulse Resp BP Sys/Garza Pulse Ox Last 24 Hr 98.3 F-99.4 F 83-92 18-29 112-129/53-81 87-100 GENERAL: Somnolent on exam, Oriented to person, place, and time, mild distress HEAD: Normocephalic, atraumatic. EYES: PERRL, no scleral icterus EARS, NOSE, THROAT: Dry mucous membranes. NECK: supple without lymphadenopathy LUNGS: Course breath sounds diffusely, expiratory wheezes, tachypnic on nasal cannula HEART: Irregularly irregular, regular rate, normal S1 and S2 without murmur ABDOMEN: Soft, nontender to palpation, normoactive bowel sounds EXTREMITIES: 2+ pulses, warm, well-perfused. 1+ edema of LE b/l NEUROLOGICAL: Cranial nerves II-XII grossly intact. Labored speech, likely due to respiratory status Laboratory Results - last 24 hr 07/27/18 07/27/18 05:30 08:43 Puncture Site Left radial ABG pH 7.43 ABG pCO2 at Pt Temp 64.7 H* ABG pO2 at Pt Temp 41.0 L* D ABG HCO3 42.6 H* ABG O2 Sat (Measured) 74.7 L* ABG O2 Content 10.9 L ABG Base Excess 15.8 H* Junior Test Positive O2 Delivery Device Nasal cannula Oxygen Flow Rate 2l Mechanical Rate No PEEP 0.0 Sodium 142 Potassium 3.4 L Chloride 97 L Carbon Dioxide 40 H Anion Gap 5 L BUN 10 Creatinine 0.7 Creat Clearance w eGFR > 60 Random Glucose 107 H Calcium 9.3 Phosphorus 2.7 Magnesium 1.7 L Active Medications Generic Name Dose Route Start Last Admin Trade Name Freq PRN Reason Stop Dose Admin Albuterol Sulfate 1 amp 07/25/18 17:55 Ventolin 0.083% Nebulizer Soln - NEB Q8H PRN SHORT OF BREATH/WHEEZING Albuterol/Ipratropium 1 amp 07/25/18 20:00 07/27/18 07:30 Duoneb - NEB 1 amp RTID LISA Administration Apixaban 5 mg 07/25/18 22:00 07/27/18 09:19 Eliquis - PO 5 mg BID LISA Administration Atenolol 25 mg 07/25/18 22:00 07/27/18 09:21 Tenormin - PO 25 mg BID LISA Administration Atorvastatin Calcium 20 mg 07/25/18 22:00 07/26/18 22:10 Lipitor - PO 20 mg HS LISA Administration Budesonide 1 amp 07/25/18 20:00 07/27/18 07:30 Pulmicort 0.25 Mg Nebulizer - NEB Not Given RBID LISA Escitalopram Oxalate 10 mg 07/26/18 10:00 07/27/18 09:22 Lexapro - PO 10 mg DAILY LISA Administration Folic Acid 1 mg 07/26/18 10:00 07/27/18 09:22 Folic Acid - PO 1 mg DAILY LISA Administration Furosemide 80 mg 07/26/18 14:00 07/27/18 05:56 Lasix Injection - IVPB 80 mg BID@0600,1400 LISA Administration Potassium Chloride 10 meq in 100 mls @ 100 mls/hr 07/27/18 09:00 07/27/18 09: 32 Potassium Chloride 10 Meq Premix Ivpb - IVPB 07/27/18 11:59 100 mls/hr Q60M LISA Administration Magnesium Oxide 800 mg 07/27/18 10:00 07/27/18 09:23 Mag-Ox - PO 07/29/18 10:01 800 mg DAILY LISA Administration Pantoprazole Sodium 20 mg 07/26/18 10:00 07/27/18 09:13 Protonix - PO 20 mg DAILY LISA Administration ASSESSMENT/PLAN: 87 yo female with PMH of a-fib (rate controlled, on eliquis), CHF, COPD (on 2L home o2), HTN, pulmonary HTN, Depression, admitted with complaint of SOB with a cough productive of clear sputum for 2 days Acute Hypoxic Respiratory Failure -Likely fluid overloaded, unlikely pneumonia with no elevation of WBCs and pt afebrile, less likely COPD Exacerbation -Telemetry monitoring -Cardiology consult appreciated -Lasix 80 mg IV BID -I&Os, Daily Weights improving -Pt required bilevel ventilation overnight and this AM, not tolerating well, will trial Non-rebreather at 50% -Budesonide NEBs BID -Albuterol NEBs PRN Q8 -Pulmicort NEBs BID HTN and Pulmonary HTN -Controlled on Home Atenolol 25 mg PO BID -Keep B.P. < 150 systolic with hx Pulmonary HTN A-fib -Rate is well controlled on Atenolol 25 mg PO BID -On Eliquis 5 mg PO BID HLD -Lipitor 20 mg PO HS Depression -Stable on home Lexapro 10 mg PO Daily DVT Prophylaxis -On eliquis 5 mg PO BID FEN -Fluids: None -Electrolytes: Hypokalemia, Low Mag, Repleting, BMP, Mg, Phos, in AM -Nutrition: Sodium controlled Diet Disposition Telemetry Visit type - Emergency Visit Emergency Visit: Yes ED Registration Date: 07/25/18 Care time: The patient presented to the Emergency Department on the above date and was hospitalized for further evaluation of their emergent condition. - New Patient This patient is new to me today: No - Critical Care Critical Care patient: Yes Total Critical Care Time (in minutes): 40 Critical Care Statement: The care of this patient involved high complexity decision making to prevent further life threatening deterioration of the patient 's condition and/or to evaluate & treat vital organ system(s) failure or risk of failure.
--- NOTE | 2018-07-27 11:02 | PN ---
Progress Note, Physician History of Present Illness: PULMONARY ALERT,DYSPNEIC,CONGESTED - Current Medication List Current Medications: Active Medications Albuterol Sulfate (Ventolin 0.083% Nebulizer Soln -) 1 amp NEB Q8H PRN PRN Reason: SHORT OF BREATH/WHEEZING Albuterol/Ipratropium (Duoneb -) 1 amp NEB RTID [facility] Last Admin: 07/27/18 07:30 Dose: 1 amp Apixaban (Eliquis -) 5 mg PO BID [facility] Last Admin: 07/27/18 09:19 Dose: 5 mg Atenolol (Tenormin -) 25 mg PO BID [facility] Last Admin: 07/27/18 09:21 Dose: 25 mg Atorvastatin Calcium (Lipitor -) 20 mg PO HS [facility] Last Admin: 07/26/18 22:10 Dose: 20 mg Budesonide (Pulmicort 0.25 Mg Nebulizer -) 1 amp NEB RBID [facility] Last Admin: 07/27/18 07:30 Dose: Not Given Escitalopram Oxalate (Lexapro -) 10 mg PO DAILY [facility] Last Admin: 07/27/18 09:22 Dose: 10 mg Folic Acid (Folic Acid -) 1 mg PO DAILY [facility] Last Admin: 07/27/18 09:22 Dose: 1 mg Furosemide (Lasix Injection -) 80 mg IVPB BID@0600,1400 [facility] Last Admin: 07/27/18 05:56 Dose: 80 mg Potassium Chloride (Potassium Chloride 10 Meq Premix Ivpb -) 10 meq in 100 mls @ 100 mls/hr IVPB Q60M [facility] Stop: 07/27/18 11:59 Last Admin: 07/27/18 09:32 Dose: 100 mls/hr Magnesium Oxide (Mag-Ox -) 800 mg PO DAILY [facility] Stop: 07/29/18 10:01 Last Admin: 07/27/18 09:23 Dose: 800 mg Pantoprazole Sodium (Protonix -) 20 mg PO DAILY [facility] Last Admin: 07/27/18 09:13 Dose: 20 mg - Objective Vital Signs: Vital Signs Temperature 98.7 F 07/27/18 05:41 Pulse Rate 83 07/27/18 05:41 Respiratory Rate 24 H 07/27/18 05:41 Blood Pressure 121/79 07/27/18 05:41 O2 Sat by Pulse Oximetry (%) 87 L 07/26/18 23:29 Constitutional: Yes: Well Nourished, Mild Distress Eyes: Yes: WNL HENT: Yes: WNL Neck: Yes: WNL Cardiovascular: Yes: Pulse Irregular, S1, S2 Respiratory: Yes: Wheezes (DIFFUSE WEN WHEEZES AND RHONCHI) Gastrointestinal: Yes: Normal Bowel Sounds, Soft Extremities: Yes: WNL Edema: No Labs: CBC, BMP 07/26/18 06:30 07/27/18 05:30 Laboratory Tests 07/27/18 08:43 ABG pH 7.43 ABG pCO2 at Pt Temp 64.7 H* ABG pO2 at Pt Temp 41.0 L* D ABG HCO3 42.6 H* ABG O2 Sat (Measured) 74.7 L* Oxygen Flow Rate 2l Problem List - Problems (1) Acute on chronic respiratory failure with hypoxia and hypercapnia Code(s): J96.21 - ACUTE AND CHRONIC RESPIRATORY FAILURE WITH HYPOXIA; J96.22 - ACUTE AND CHRONIC RESPIRATORY FAILURE WITH HYPERCAPNIA (2) Acute CHF (congestive heart failure) Code(s): I50.9 - HEART FAILURE, UNSPECIFIED (3) Atrial fibrillation Code(s): I48.91 - UNSPECIFIED ATRIAL FIBRILLATION Qualifiers: Atrial fibrillation type: permanent Qualified Code(s): I48.2 - Chronic atrial fibrillation (4) Coronary artery disease Code(s): I25.10 - ATHSCL HEART DISEASE OF [place] CORONARY ARTERY W/O ANG PCTRS Qualifiers: Coronary Disease-Associated Artery/Lesion type: [place] artery [place] vs. transplanted heart: [place] heart Associated angina: without angina Qualified Code(s): I25.10 - Atherosclerotic heart disease of [place] coronary artery without angina pectoris (5) Hypertension Code(s): I10 - ESSENTIAL (PRIMARY) HYPERTENSION Qualifiers: Hypertension type: essential hypertension Qualified Code(s): I10 - Essential (primary) hypertension (6) Pulmonary HTN Code(s): I27.20 - PULMONARY HYPERTENSION, UNSPECIFIED (7) Sarcoidosis Code(s): D86.9 - SARCOIDOSIS, UNSPECIFIED (8) Shortness of breath Code(s): R06.02 - SHORTNESS OF BREATH Assessment/Plan ASSESSMENT AND PLAN: Acute on Chronic Hypoxic and Hypercapneic Respiratory Failure Acute on Chronic Diastolic Heart Failure COPD Sarcoidosis Severe Pulmonary HTN Atrial Fibrillation HTN Hyperlipidemia - continue lasix - monitor urine output, creatinine - daily weights - O2 to keep SpO2>90% - inhaled bronchodilators - can defer systemic steroids at this time - rate control - continue anticoagulation - solumedrol DR ALBERT
--- NOTE | 2018-07-27 11:08 | PN ---
Progress Note (short form) - Note Progress Note: s: still sob with wheeze and cough, no cp palps dizzy o: Vital Signs Period Temp Pulse Resp BP Sys/Garza Pulse Ox Last 24 Hr 98.3 F-99.4 F 83-92 18-29 112-129/57-81 87-100 Constitutional: Yes: Well Nourished, No Distress Eyes: Yes: Conjunctiva Clear, EOM Intact HENT: Yes: Atraumatic, Normocephalic Neck: Yes: Supple, Trachea Midline Respiratory: Yes: +wheeze bl, nl eff Gastrointestinal: Yes: Normal Bowel Sounds, Soft Cardiovascular: Yes: Pulse Irregular JVD: Yes Heart Sounds: Yes: S1, S2 Edema: No Peripheral Pulses: 2+ Left Doralis Pedis, 2+ Right Dorsalis Pedis Integumentary: No: Jaundice Neurological: Yes: Alert, Oriented Current Medications Generic Name Dose Route Start Last Admin Trade Name Freq PRN Reason Stop Dose Admin Albuterol Sulfate 1 amp 07/25/18 17:55 Ventolin 0.083% Nebulizer Soln - NEB Q8H PRN SHORT OF BREATH/WHEEZING Albuterol/Ipratropium 1 amp 07/25/18 20:00 07/27/18 07:30 Duoneb - NEB 1 amp RTID LISA Administration Apixaban 5 mg 07/25/18 22:00 07/27/18 09:19 Eliquis - PO 5 mg BID LISA Administration Atenolol 25 mg 07/25/18 22:00 07/27/18 09:21 Tenormin - PO 25 mg BID LISA Administration Atorvastatin Calcium 20 mg 07/25/18 22:00 07/26/18 22:10 Lipitor - PO 20 mg HS LISA Administration Budesonide 1 amp 07/25/18 20:00 07/27/18 07:30 Pulmicort 0.25 Mg Nebulizer - NEB Not Given RBID LISA Escitalopram Oxalate 10 mg 07/26/18 10:00 07/27/18 09:22 Lexapro - PO 10 mg DAILY LISA Administration Folic Acid 1 mg 07/26/18 10:00 07/27/18 09:22 Folic Acid - PO 1 mg DAILY LISA Administration Furosemide 80 mg 07/26/18 14:00 07/27/18 05:56 Lasix Injection - IVPB 80 mg BID@0600,1400 LISA Administration Potassium Chloride 10 meq in 100 mls @ 100 mls/hr 07/27/18 09:00 07/27/18 09: 32 Potassium Chloride 10 Meq Premix Ivpb - IVPB 07/27/18 11:59 100 mls/hr Q60M LISA Administration Magnesium Oxide 800 mg 07/27/18 10:00 07/27/18 09:23 Mag-Ox - PO 07/29/18 10:01 800 mg DAILY LISA Administration Methylprednisolone Sodium Succinate 60 mg 07/27/18 11:15 Solu-Medrol - IVPUSH Q6H-IV LISA Pantoprazole Sodium 20 mg 07/26/18 10:00 07/27/18 09:13 Protonix - PO 20 mg DAILY LISA Administration CBC, BMP 07/26/18 06:30 07/27/18 05:30 Assessment/Plan CXR: no acute process Echo 05/03: nl LVEF. mild RVE, mild-mod RV hypo. L/NEENA. mod MR/TR. RVSP at least 88 mmHg Echo 03/2017: Mild conc lvh. 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 copd, pulm sarcoid--on home O2: -cont steroids, pulm following HTN: -cont current meds HPL: -cont home statin regimen chronic non-cardiac cp syndrome: - trop neg x 1, no chest pain now -suspect sx's mskel or sec to hi filling pressures/CHF vs pulm sarcoid dz burden
[2018-07-27] MEDS: ALBUTEROL SO4 0.083% IH SOL 2.5 MG/3 ML VIAL.NEB. NEB PRN (11:55)
[2018-07-27] MEDS: methylPREDNISolone NA SUCC 40 MG/1 ML VIAL IVPUSH SCH ×3 (12:14→21:26)
[2018-07-27] MEDS ORDERED: POTASSIUM CHLORIDE TABS 20 MEQ TABLET.ER (FP) PO ONE (13:44)
[2018-07-27] MEDS: ATORVASTATIN CA 20 MG TABLET (FP) PO SCH (21:26)
[2018-07-28] MEDS: ALBUTEROL SO4 0.083% IH SOL 2.5 MG/3 ML VIAL.NEB. NEB PRN (02:11)
[2018-07-28] MEDS: methylPREDNISolone NA SUCC 40 MG/1 ML VIAL IVPUSH SCH ×4 (03:45→21:14)
[2018-07-28] MEDS: FUROSEMIDE 100 MG/10 ML INJECTABLE VIAL IVPB SCH ×2 (06:11→14:43)
[2018-07-28 06:48] LABS: BASO % 0.2 % (0-2.0); HEMATOCRIT 35.8 % (32.4-45.2); HEMOGLOBIN 10.7 GM/dL (10.7-15.3); LYMPH % 24.4 % (8-40); MCH 20.8 pg (25.7-33.7); MCHC 29.9 g/dl (32.0-36.0); MEAN CELL VOLUME 69.6 fl (80-96); MEAN PLT VOLUME 9.9 fl (7.5-11.1); MONO % 3.1 % (3.8-10.2); NEUT % 72.3 % (42.8-82.8); PLATELET COUNT 152 K/MM3 (134-434); RBC 5.15 M/mm3 (3.60-5.2); RDW 20.3 % (11.6-15.6); WHITE BLOOD COUNT 3.2 K/mm3 (4.0-10.0)
[2018-07-28 07:02] LABS: ANION GAP 5 MMOL/L (8-16); BLOOD UREA NITROGEN 12 mg/dL (7-18); CALCIUM 9.1 mg/dL (8.5-10.1); CHLORIDE 94 mmol/L (98-107); CO2 41 mmol/L (21-32); CREATININE 0.7 mg/dL (0.55-1.3); GLUCOSE,RANDOM 168 mg/dL (74-106); MAGNESIUM 2.1 mg/dL (1.8-2.4); PHOSPHOROUS 2.9 mg/dL (2.5-4.9); POTASSIUM 3.3 mmol/L (3.5-5.1); SODIUM 139 mmol/L (136-145)
[2018-07-28] MEDS: ALBUTEROL SO4 2.5/IPRATROPIUM 0.5 INH SOL 3 ML VIAL.NEB. NEB SCH ×3 (07:44→20:47)
[2018-07-28] MEDS: BUDESONIDE 0.25 MG/2ML INH SUSP VIAL NEB SCH ×2 (07:44→20:47)
[2018-07-28] MEDS: PANTOPRAZOLE 20 MG TABLET (FP) PO SCH (10:12)
[2018-07-28] MEDS: FOLIC ACID 1 MG TABLET (FP) PO SCH (10:12)
[2018-07-28] MEDS: ESCITALOPRAM OXALATE 20 MG TABLET (FP) PO SCH (10:12)
[2018-07-28] MEDS: MAGNESIUM OXIDE 400 MG TABLET (FP) PO SCH (10:12)
[2018-07-28] MEDS: ATENOLOL 25 MG TABLET (FP) PO SCH ×2 (10:12→21:15)
[2018-07-28] MEDS: APIXABAN 5 MG TABLET PO SCH ×2 (10:13→21:15)
[2018-07-28] MEDS: POTASSIUM CHLORIDE ORAL LIQUID 20 MEQ/15 ML PO SCH ×2 (10:13→21:15)
--- NOTE | 2018-07-28 11:19 | PN ---
Progress Note (short form) - Note Progress Note: s: still sob with wheeze and cough, no cp palps dizzy o: Vital Signs Period Temp Pulse Resp BP Sys/Garza Pulse Ox Last 24 Hr 97.7 F-98.4 F 86-102 18-28 116-142/60-84 96-96 Constitutional: Yes: Well Nourished, No Distress Eyes: Yes: Conjunctiva Clear, EOM Intact HENT: Yes: Atraumatic, Normocephalic Neck: Yes: Supple, Trachea Midline Respiratory: Yes: +wheeze bl, nl eff Gastrointestinal: Yes: Normal Bowel Sounds, Soft Cardiovascular: Yes: Pulse Irregular JVD: Yes Heart Sounds: Yes: S1, S2 Edema: No Peripheral Pulses: 2+ Left Doralis Pedis, 2+ Right Dorsalis Pedis Integumentary: No: Jaundice Neurological: Yes: Alert, Oriented Current Medications Generic Name Dose Route Start Last Admin Trade Name Freq PRN Reason Stop Dose Admin Albuterol Sulfate 1 amp 07/25/18 17:55 07/28/18 02:11 Ventolin 0.083% Nebulizer Soln - NEB 1 amp Q8H PRN Administration SHORT OF BREATH/WHEEZING Albuterol/Ipratropium 1 amp 07/25/18 20:00 07/28/18 07:44 Duoneb - NEB 1 amp RTID LISA Administration Apixaban 5 mg 07/25/18 22:00 07/28/18 10:13 Eliquis - PO 5 mg BID LISA Administration Atenolol 25 mg 07/25/18 22:00 07/28/18 10:12 Tenormin - PO 25 mg BID LISA Administration Atorvastatin Calcium 20 mg 07/25/18 22:00 07/27/18 21:26 Lipitor - PO 20 mg HS LISA Administration Budesonide 1 amp 07/25/18 20:00 07/28/18 07:44 Pulmicort 0.25 Mg Nebulizer - NEB Not Given RBID LISA Escitalopram Oxalate 10 mg 07/26/18 10:00 07/28/18 10:12 Lexapro - PO 10 mg DAILY LISA Administration Folic Acid 1 mg 07/26/18 10:00 07/28/18 10:12 Folic Acid - PO 1 mg DAILY LISA Administration Furosemide 80 mg 07/26/18 14:00 10/12/18 06:11 Lasix Injection - IVPB 80 mg BID@0600,1400 LISA Administration Magnesium Oxide 800 mg 07/27/18 10:00 07/28/18 10:12 Mag-Ox - PO 07/29/18 10:01 800 mg DAILY LISA Administration Methylprednisolone Sodium Succinate 60 mg 07/27/18 11:15 07/28/18 10:13 Solu-Medrol - IVPUSH 60 mg Q6H-IV LISA Administration Pantoprazole Sodium 20 mg 07/26/18 10:00 07/28/18 10:12 Protonix - PO 20 mg DAILY LISA Administration Potassium Chloride 40 meq 07/28/18 10:00 07/28/18 10:13 Potassium Chloride Oral Liquid PO 07/29/18 22:01 40 meq BID LISA Administration CBC, BMP 07/28/18 05:30 07/28/18 05:30 Assessment/Plan CXR: no acute process Echo 05/03: nl LVEF. mild RVE, mild-mod RV hypo. L/NEENA. mod MR/TR. RVSP at least 88 mmHg Echo 03/2017: Mild conc lvh. 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 copd, pulm sarcoid--on home O2: -cont steroids, pulm following HTN: -cont current meds HPL: -cont home statin regimen chronic non-cardiac cp syndrome: - trop neg x 1, no chest pain now -suspect sx's mskel or sec to hi filling pressures/CHF vs pulm sarcoid dz burden
--- NOTE | 2018-07-28 11:25 | PN ---
Progress Note, Physician History of Present Illness: PULMONARY CALM,LESS CONGESTED - Current Medication List Current Medications: Active Medications Albuterol Sulfate (Ventolin 0.083% Nebulizer Soln -) 1 amp NEB Q8H PRN PRN Reason: SHORT OF BREATH/WHEEZING Last Admin: 07/28/18 02:11 Dose: 1 amp Albuterol/Ipratropium (Duoneb -) 1 amp NEB RTID [facility] Last Admin: 07/28/18 07:44 Dose: 1 amp Apixaban (Eliquis -) 5 mg PO BID [facility] Last Admin: 07/28/18 10:13 Dose: 5 mg Atenolol (Tenormin -) 25 mg PO BID [facility] Last Admin: 07/28/18 10:12 Dose: 25 mg Atorvastatin Calcium (Lipitor -) 20 mg PO HS [facility] Last Admin: 07/27/18 21:26 Dose: 20 mg Budesonide (Pulmicort 0.25 Mg Nebulizer -) 1 amp NEB RBID [facility] Last Admin: 07/28/18 07:44 Dose: Not Given Escitalopram Oxalate (Lexapro -) 10 mg PO DAILY [facility] Last Admin: 07/28/18 10:12 Dose: 10 mg Folic Acid (Folic Acid -) 1 mg PO DAILY [facility] Last Admin: 07/28/18 10:12 Dose: 1 mg Furosemide (Lasix Injection -) 80 mg IVPB BID@0600,1400 [facility] Last Admin: 07/28/18 06:11 Dose: 80 mg Magnesium Oxide (Mag-Ox -) 800 mg PO DAILY [facility] Stop: 07/29/18 10:01 Last Admin: 07/28/18 10:12 Dose: 800 mg Methylprednisolone Sodium Succinate (Solu-Medrol -) 60 mg IVPUSH Q6H-IV [facility] Last Admin: 07/28/18 10:13 Dose: 60 mg Pantoprazole Sodium (Protonix -) 20 mg PO DAILY [facility] Last Admin: 07/28/18 10:12 Dose: 20 mg Potassium Chloride (Potassium Chloride Oral Liquid) 40 meq PO BID [facility] Stop: 07/29/18 22:01 Last Admin: 07/28/18 10:13 Dose: 40 meq - Objective Vital Signs: Vital Signs Temperature 98.1 F 07/28/18 09:15 Pulse Rate 102 H 07/28/18 10:10 Respiratory Rate 18 07/28/18 09:15 Blood Pressure 116/60 07/28/18 09:15 O2 Sat by Pulse Oximetry (%) 96 07/28/18 10:10 Constitutional: Yes: Well Nourished, Calm Eyes: Yes: WNL HENT: Yes: WNL Neck: Yes: WNL Cardiovascular: Yes: Pulse Irregular, S1, S2 Respiratory: Yes: Wheezes (LESS WHEEZES BILATERALLY) Gastrointestinal: Yes: Normal Bowel Sounds, Soft Extremities: Yes: WNL Edema: No Labs: CBC, BMP 07/28/18 05:30 07/28/18 05:30 Problem List - Problems (1) Acute on chronic respiratory failure with hypoxia and hypercapnia Code(s): J96.21 - ACUTE AND CHRONIC RESPIRATORY FAILURE WITH HYPOXIA; J96.22 - ACUTE AND CHRONIC RESPIRATORY FAILURE WITH HYPERCAPNIA (2) Acute CHF (congestive heart failure) Code(s): I50.9 - HEART FAILURE, UNSPECIFIED (3) Atrial fibrillation Code(s): I48.91 - UNSPECIFIED ATRIAL FIBRILLATION Qualifiers: Atrial fibrillation type: permanent Qualified Code(s): I48.2 - Chronic atrial fibrillation (4) Coronary artery disease Code(s): I25.10 - ATHSCL HEART DISEASE OF [place] CORONARY ARTERY W/O ANG PCTRS Qualifiers: Coronary Disease-Associated Artery/Lesion type: [place] artery [place] vs. transplanted heart: [place] heart Associated angina: without angina Qualified Code(s): I25.10 - Atherosclerotic heart disease of [place] coronary artery without angina pectoris (5) Hypertension Code(s): I10 - ESSENTIAL (PRIMARY) HYPERTENSION Qualifiers: Hypertension type: essential hypertension Qualified Code(s): I10 - Essential (primary) hypertension (6) Pulmonary HTN Code(s): I27.20 - PULMONARY HYPERTENSION, UNSPECIFIED (7) Sarcoidosis Code(s): D86.9 - SARCOIDOSIS, UNSPECIFIED (8) Shortness of breath Code(s): R06.02 - SHORTNESS OF BREATH Assessment/Plan ASSESSMENT AND PLAN: Acute on Chronic Hypoxic and Hypercapneic Respiratory Failure Acute on Chronic Diastolic Heart Failure COPD Sarcoidosis Severe Pulmonary HTN Atrial Fibrillation HTN Hyperlipidemia - continue lasix - monitor urine output, creatinine - daily weights - O2 to keep SpO2>90% - inhaled bronchodilators - rate control - continue anticoagulation - taper medrol DR ALBERT
--- NOTE | 2018-07-28 13:29 | PN ---
Teaching Attending Note Name of Resident: Brennan Gifford ATTENDING PHYSICIAN STATEMENT I saw and evaluated the patient. I reviewed the resident's note and discussed the case with the resident. I agree with the resident's findings and plan as documented with exceptions below. SUBJECTIVE: Patient seen and examined. breathing improved, no new complaints. OBJECTIVE: Vital Signs Period Temp Pulse Resp BP Sys/Garza Pulse Ox Last 24 Hr 97.7 F-98.4 F 86-102 18-28 116-142/60-84 96-96 Intake & Output 07/25/18 07/26/18 07/27/18 07/28/18 23:59 23:59 23:59 23:59 Intake Total 650 Output Total 3000 1600 2400 600 Balance -3000 -1600 -1750 -600 Weight 154 lb 158 lb 9.6 oz 158 lb 9.44 oz 162 lb 6.4 oz General: lying in bed in no acute distress Chest: improved air entry, scattered rales and wheezing but improved Extremities: improved pedal edema Active Medications Albuterol Sulfate (Ventolin 0.083% Nebulizer Soln -) 1 amp NEB Q8H PRN PRN Reason: SHORT OF BREATH/WHEEZING Last Admin: 07/28/18 02:11 Dose: 1 amp Albuterol/Ipratropium (Duoneb -) 1 amp NEB RTID [facility] Last Admin: 07/28/18 07:44 Dose: 1 amp Apixaban (Eliquis -) 5 mg PO BID [facility] Last Admin: 07/28/18 10:13 Dose: 5 mg Atenolol (Tenormin -) 25 mg PO BID [facility] Last Admin: 07/28/18 10:12 Dose: 25 mg Atorvastatin Calcium (Lipitor -) 20 mg PO HS [facility] Last Admin: 07/27/18 21:26 Dose: 20 mg Budesonide (Pulmicort 0.25 Mg Nebulizer -) 1 amp NEB RBID [facility] Last Admin: 07/28/18 07:44 Dose: Not Given Escitalopram Oxalate (Lexapro -) 10 mg PO DAILY [facility] Last Admin: 07/28/18 10:12 Dose: 10 mg Folic Acid (Folic Acid -) 1 mg PO DAILY [facility] Last Admin: 07/28/18 10:12 Dose: 1 mg Furosemide (Lasix Injection -) 80 mg IVPB BID@0600,1400 [facility] Last Admin: 07/28/18 06:11 Dose: 80 mg Magnesium Oxide (Mag-Ox -) 800 mg PO DAILY [facility] Stop: 07/29/18 10:01 Last Admin: 07/28/18 10:12 Dose: 800 mg Methylprednisolone Sodium Succinate (Solu-Medrol -) 40 mg IVPUSH Q6H-IV LISA Pantoprazole Sodium (Protonix -) 20 mg PO DAILY [facility] Last Admin: 07/28/18 10:12 Dose: 20 mg Potassium Chloride (Potassium Chloride Oral Liquid) 40 meq PO BID [facility] Stop: 07/29/18 22:01 Last Admin: 07/28/18 10:13 Dose: 40 meq Laboratory Results - last 24 hr 07/28/18 07/28/18 05:30 05:30 WBC 3.2 L RBC 5.15 Hgb 10.7 Hct 35.8 MCV 69.6 L MCH 20.8 L MCHC 29.9 L RDW 20.3 H Plt Count 152 MPV 9.9 Absolute Neuts (auto) 2.3 Neutrophils % 72.3 Lymphocytes % 24.4 D Monocytes % 3.1 L Eosinophils % 0.0 D Basophils % 0.2 Nucleated RBC % 0 Sodium 139 Potassium 3.3 L Chloride 94 L Carbon Dioxide 41 H Anion Gap 5 L BUN 12 Creatinine 0.7 Creat Clearance w eGFR > 60 Random Glucose 168 H Calcium 9.1 Phosphorus 2.9 Magnesium 2.1 ASSESSMENT AND PLAN: 81 yof with PMhx of sarcoidosis diagnosed in 1985, Chronic diastolic HF, severe pulmonary HTN, COPD on 2L home oxygen, AFib on eliquis, HTN, HLD, frequent admissions with CHF/respiratory distress admitted with acute hypercapneic/ hypoxic respiratory failure, CHF exaerbation -Acute hypercapneic/hypoxic respiratory failure -Acute diastolic heart failure exacerbation -Severe pulmonary HTN -Hypokalemia -Hypomagnesemia -Cor Pulmonale -Sarcoidosis -COPD on 2L home oxygen -Afib on eliquis -HTN -HLD Plan: Oxygenation/volume status improved. Renal function stable Continue lasix 80 mg IV BID for now Taper solumedrol. Bipap prn. Standing and prn nebs. PUlmonary/cardiology input appreciated.. Replete K/phos prn. Continue atenolol/apixaban. DVTPPX as above Dispo pending clinical improvement, continue telemetry. Plan discussed with patient in detail,all questions answered.
--- NOTE | 2018-07-28 14:47 | PN ---
Physical Exam: SUBJECTIVE: Patient seen and examined this AM. She says that she is breathing better than yesterday. She says her abdominal pain has improved and she had a regular bowel movement overnight. OBJECTIVE: Vital Signs Period Temp Pulse Resp BP Sys/Garza Pulse Ox Last 24 Hr 97.7 F-98.4 F 87-102 18-28 116-142/60-84 96-96 GENERAL: Somnolent on exam, Oriented to person, place, and time, mild distress HEAD: Normocephalic, atraumatic. EYES: PERRL, no scleral icterus EARS, NOSE, THROAT: Dry mucous membranes. NECK: supple without lymphadenopathy LUNGS: Rhonchi noted with poor air entry at bases, improved from yesterday, expiratory wheezes, mildly tachypnic on nasal cannula HEART: Irregularly irregular, regular rate, normal S1 and S2 without murmur ABDOMEN: Soft, nontender to palpation, normoactive bowel sounds EXTREMITIES: 2+ pulses, warm, well-perfused. 1+ edema of LE b/l NEUROLOGICAL: Cranial nerves II-XII grossly intact. Laboratory Results - last 24 hr 07/28/18 07/28/18 05:30 05:30 WBC 3.2 L RBC 5.15 Hgb 10.7 Hct 35.8 MCV 69.6 L MCH 20.8 L MCHC 29.9 L RDW 20.3 H Plt Count 152 MPV 9.9 Absolute Neuts (auto) 2.3 Neutrophils % 72.3 Lymphocytes % 24.4 D Monocytes % 3.1 L Eosinophils % 0.0 D Basophils % 0.2 Nucleated RBC % 0 Sodium 139 Potassium 3.3 L Chloride 94 L Carbon Dioxide 41 H Anion Gap 5 L BUN 12 Creatinine 0.7 Creat Clearance w eGFR > 60 Random Glucose 168 H Calcium 9.1 Phosphorus 2.9 Magnesium 2.1 Active Medications Generic Name Dose Route Start Last Admin Trade Name Freq PRN Reason Stop Dose Admin Albuterol Sulfate 1 amp 07/25/18 17:55 07/28/18 02:11 Ventolin 0.083% Nebulizer Soln - NEB 1 amp Q8H PRN Administration SHORT OF BREATH/WHEEZING Albuterol/Ipratropium 1 amp 07/25/18 20:00 07/28/18 13:41 Duoneb - NEB 1 amp RTID LISA Administration Apixaban 5 mg 07/25/18 22:00 07/28/18 10:13 Eliquis - PO 5 mg BID LISA Administration Atenolol 25 mg 07/25/18 22:00 07/28/18 10:12 Tenormin - PO 25 mg BID LISA Administration Atorvastatin Calcium 20 mg 07/25/18 22:00 07/27/18 21:26 Lipitor - PO 20 mg HS LISA Administration Budesonide 1 amp 07/25/18 20:00 07/28/18 07:44 Pulmicort 0.25 Mg Nebulizer - NEB Not Given RBID LISA Escitalopram Oxalate 10 mg 07/26/18 10:00 07/28/18 10:12 Lexapro - PO 10 mg DAILY LISA Administration Folic Acid 1 mg 07/26/18 10:00 07/28/18 10:12 Folic Acid - PO 1 mg DAILY LISA Administration Furosemide 80 mg 07/26/18 14:00 07/28/18 06:11 Lasix Injection - IVPB 80 mg BID@0600,1400 LISA Administration Magnesium Oxide 800 mg 07/27/18 10:00 07/28/18 10:12 Mag-Ox - PO 07/29/18 10:01 800 mg DAILY LISA Administration Methylprednisolone Sodium Succinate 40 mg 07/28/18 11:25 Solu-Medrol - IVPUSH Q6H-IV LISA Pantoprazole Sodium 20 mg 07/26/18 10:00 07/28/18 10:12 Protonix - PO 20 mg DAILY LISA Administration Potassium Chloride 40 meq 07/28/18 10:00 07/28/18 10:13 Potassium Chloride Oral Liquid PO 07/29/18 22:01 40 meq BID LISA Administration ASSESSMENT/PLAN: 87 yo female with PMH of a-fib (rate controlled, on eliquis), CHF, COPD (on 2L home o2), HTN, pulmonary HTN, Depression, admitted with complaint of SOB with a cough productive of clear sputum for 2 days Acute Hypoxic Respiratory Failure -Likely fluid overloaded, unlikely pneumonia with no elevation of WBCs and pt afebrile, less likely COPD Exacerbation -Telemetry monitoring -Cardiology consult appreciated -Lasix 80 mg IV BID -I&Os, Daily Weights improving -Pt saturating well on 3L NC -Budesonide NEBs BID -Albuterol NEBs PRN Q8 -Pulmicort NEBs BID -SoluMedrol 40 mg IV Q6 HTN and Pulmonary HTN -Controlled on Home Atenolol 25 mg PO BID -Keep B.P. < 150 systolic with hx Pulmonary HTN A-fib -Rate is well controlled on Atenolol 25 mg PO BID -On Eliquis 5 mg PO BID HLD -Lipitor 20 mg PO HS Depression -Stable on home Lexapro 10 mg PO Daily DVT Prophylaxis -On eliquis 5 mg PO BID FEN -Fluids: None -Electrolytes: Hypokalemia, Repleting, BMP, Mg, Phos, in AM -Nutrition: Sodium controlled Diet Disposition Telemetry Visit type - Emergency Visit Emergency Visit: Yes ED Registration Date: 07/25/18 Care time: The patient presented to the Emergency Department on the above date and was hospitalized for further evaluation of their emergent condition. - New Patient This patient is new to me today: No - Critical Care Critical Care patient: No
[2018-07-28] MEDS: ATORVASTATIN CA 20 MG TABLET (FP) PO SCH (21:15)
[2018-07-29] MEDS: methylPREDNISolone NA SUCC 40 MG/1 ML VIAL IVPUSH SCH ×3 (03:17→17:25)
[2018-07-29] MEDS: FUROSEMIDE 100 MG/10 ML INJECTABLE VIAL IVPB SCH ×2 (06:31→13:14)
[2018-07-29 07:02] LABS: HEMOGLOBIN 10.3 GM/dL (10.7-15.3); MCH 20.9 pg (25.7-33.7); MCHC 30.2 g/dl (32.0-36.0); MEAN CELL VOLUME 69.1 fl (80-96); MEAN PLT VOLUME 9.9 fl (7.5-11.1); PLATELET COUNT 145 K/MM3 (134-434); RBC 4.92 M/mm3 (3.60-5.2); RDW 19.8 % (11.6-15.6); WHITE BLOOD COUNT 6.6 K/mm3 (4.0-10.0)
[2018-07-29] MEDS: BUDESONIDE 0.25 MG/2ML INH SUSP VIAL NEB SCH ×2 (08:00→20:40)
[2018-07-29] MEDS: ALBUTEROL SO4 2.5/IPRATROPIUM 0.5 INH SOL 3 ML VIAL.NEB. NEB SCH ×3 (08:00→20:40)
[2018-07-29 08:32] LABS: ANION GAP 4 MMOL/L (8-16); BLOOD UREA NITROGEN 14 mg/dL (7-18); CALCIUM 9.3 mg/dL (8.5-10.1); CHLORIDE 94 mmol/L (98-107); CO2 42 mmol/L (21-32); CREATININE 0.6 mg/dL (0.55-1.3); GLUCOSE,RANDOM 132 mg/dL (74-106); PHOSPHOROUS 2.5 mg/dL (2.5-4.9); POTASSIUM 4.1 mmol/L (3.5-5.1); SODIUM 140 mmol/L (136-145)
--- NOTE | 2018-07-29 09:27 | PN ---
Teaching Attending Note Name of Resident: Ramon Sharma ATTENDING PHYSICIAN STATEMENT I saw and evaluated the patient. I reviewed the resident's note and discussed the case with the resident. I agree with the resident's findings and plan as documented with exceptions below. SUBJECTIVE: Patient seen and examined, breathing improved, no new complaints. OBJECTIVE: Vital Signs Period Temp Pulse Resp BP Sys/Garza Pulse Ox Last 24 Hr 97.9 F-98.8 F 80-102 20-22 114-159/62-84 95-96 Intake & Output 07/26/18 07/27/18 07/28/18 07/29/18 23:59 23:59 23:59 23:59 Intake Total 650 690 210 Output Total 1600 2400 1300 550 Balance -1600 -1750 -610 -340 Weight 158 lb 9.6 oz 158 lb 9.44 oz 162 lb 6.4 oz General: lying in bed no NC, comfortable, no use of accessory muscles of respiration Chest: fine basilar rales, improved air entry, no wheezing currently Abdomen:Soft, NT,ND Extremities: improved pedal edema Active Medications Albuterol Sulfate (Ventolin 0.083% Nebulizer Soln -) 1 amp NEB Q8H PRN PRN Reason: SHORT OF BREATH/WHEEZING Last Admin: 07/28/18 02:11 Dose: 1 amp Albuterol/Ipratropium (Duoneb -) 1 amp NEB RTID [facility] Last Admin: 07/28/18 20:47 Dose: Not Given Apixaban (Eliquis -) 5 mg PO BID [facility] Last Admin: 07/28/18 21:15 Dose: 5 mg Atenolol (Tenormin -) 25 mg PO BID [facility] Last Admin: 07/28/18 21:15 Dose: 25 mg Atorvastatin Calcium (Lipitor -) 20 mg PO HS [facility] Last Admin: 07/28/18 21:15 Dose: 20 mg Budesonide (Pulmicort 0.25 Mg Nebulizer -) 1 amp NEB RBID [facility] Last Admin: 07/28/18 20:47 Dose: Not Given Escitalopram Oxalate (Lexapro -) 10 mg PO DAILY [facility] Last Admin: 07/28/18 10:12 Dose: 10 mg Folic Acid (Folic Acid -) 1 mg PO DAILY [facility] Last Admin: 07/28/18 10:12 Dose: 1 mg Furosemide (Lasix Injection -) 80 mg IVPB BID@0600,1400 [facility] Last Admin: 07/29/18 06:31 Dose: 80 mg Magnesium Oxide (Mag-Ox -) 800 mg PO DAILY [facility] Stop: 07/29/18 10:01 Last Admin: 07/28/18 10:12 Dose: 800 mg Methylprednisolone Sodium Succinate (Solu-Medrol -) 40 mg IVPUSH Q6H-IV [facility] Last Admin: 07/29/18 03:17 Dose: 40 mg Pantoprazole Sodium (Protonix -) 20 mg PO DAILY [facility] Last Admin: 07/28/18 10:12 Dose: 20 mg Laboratory Results - last 24 hr 07/29/18 07/29/18 05:30 05:30 WBC 6.6 RBC 4.92 Hgb 10.3 L Hct 34.0 MCV 69.1 L MCH 20.9 L MCHC 30.2 L RDW 19.8 H Plt Count 145 MPV 9.9 Sodium 140 Potassium 4.1 Chloride 94 L Carbon Dioxide 42 H Anion Gap 4 L BUN 14 Creatinine 0.6 Creat Clearance w eGFR > 60 Random Glucose 132 H Calcium 9.3 Phosphorus 2.5 Magnesium 2.0 ASSESSMENT AND PLAN: ASSESSMENT AND PLAN: 81 yof with PMhx of sarcoidosis diagnosed in 1985, Chronic diastolic HF, severe pulmonary HTN, COPD on 2L home oxygen, AFib on eliquis, HTN, HLD, frequent admissions with CHF/respiratory distress admitted with acute hypercapneic/ hypoxic respiratory failure, CHF exaerbation -Acute hypercapneic/hypoxic respiratory failure -Acute diastolic heart failure exacerbation -Severe pulmonary HTN -Hypokalemia -Hypomagnesemia -Cor Pulmonale -Sarcoidosis -COPD on 2L home oxygen -Afib on eliquis -HTN -HLD Plan: Oxygenation/volume status improved. Renal function stable Continue lasix 80 mg IV BID as responding well. Taper solumedrol to 40 mg IV q8h. Bipap prn. Standing and prn nebs. PUlmonary/cardiology input appreciated.. Replete K/phos prn. Continue atenolol/apixaban. DVTPPX as above Dispo planning in 48-72 hours if continues to improve. PT eval Plan discussed with patient in detail,all questions answered.
[2018-07-29] MEDS: FOLIC ACID 1 MG TABLET (FP) PO SCH (09:46)
[2018-07-29] MEDS: PANTOPRAZOLE 20 MG TABLET (FP) PO SCH (09:46)
[2018-07-29] MEDS: MAGNESIUM OXIDE 400 MG TABLET (FP) PO SCH (09:46)
[2018-07-29] MEDS: APIXABAN 5 MG TABLET PO SCH ×2 (09:46→21:17)
[2018-07-29] MEDS: ESCITALOPRAM OXALATE 20 MG TABLET (FP) PO SCH (09:47)
[2018-07-29] MEDS: ATENOLOL 25 MG TABLET (FP) PO SCH ×2 (09:47→21:17)
--- NOTE | 2018-07-29 11:34 | PN ---
Physical Exam: SUBJECTIVE: No acute events overnight. Pt continues to diurese. No complaints this morning and feels her shortness of breath has drastically improved. OBJECTIVE: Vital Signs Period Temp Pulse Resp BP Sys/Garza Pulse Ox Last 24 Hr 97.9 F-98.8 F 80-99 20-22 114-159/57-84 95-96 General: Laying in bed, NAD, comfortable HEENT: Dry MMM, EOMi, ROBERTA NECK: No JVD LUNG: Diminished breath sounds at the bases b/l with fine rales, no wheezing, on NC CARDIAC: fine basilar rales, improved air entry, no wheezing currently ABD: Soft, NT/ND, normoactive BS, no guarding EXT: Trace pitting edema at the feet, 2+ DP pulses with cap refill <2sec Laboratory Results - last 24 hr 07/29/18 07/29/18 05:30 05:30 WBC 6.6 RBC 4.92 Hgb 10.3 L Hct 34.0 MCV 69.1 L MCH 20.9 L MCHC 30.2 L RDW 19.8 H Plt Count 145 MPV 9.9 Sodium 140 Potassium 4.1 Chloride 94 L Carbon Dioxide 42 H Anion Gap 4 L BUN 14 Creatinine 0.6 Creat Clearance w eGFR > 60 Random Glucose 132 H Calcium 9.3 Phosphorus 2.5 Magnesium 2.0 Active Medications Generic Name Dose Route Start Last Admin Trade Name Freq PRN Reason Stop Dose Admin Albuterol Sulfate 1 amp 07/25/18 17:55 07/28/18 02:11 Ventolin 0.083% Nebulizer Soln - NEB 1 amp Q8H PRN Administration SHORT OF BREATH/WHEEZING Albuterol/Ipratropium 1 amp 07/25/18 20:00 07/29/18 08:00 Duoneb - NEB Not Given RTID LISA Apixaban 5 mg 07/25/18 22:00 07/29/18 09:46 Eliquis - PO 5 mg BID LISA Administration Atenolol 25 mg 07/25/18 22:00 07/29/18 09:47 Tenormin - PO 25 mg BID LISA Administration Atorvastatin Calcium 20 mg 07/25/18 22:00 07/28/18 21:15 Lipitor - PO 20 mg HS LISA Administration Budesonide 1 amp 07/25/18 20:00 07/29/18 08:00 Pulmicort 0.25 Mg Nebulizer - NEB Not Given RBID LISA Escitalopram Oxalate 10 mg 07/26/18 10:00 07/29/18 09:47 Lexapro - PO 10 mg DAILY LISA Administration Folic Acid 1 mg 07/26/18 10:00 07/29/18 09:46 Folic Acid - PO 1 mg DAILY LISA Administration Furosemide 80 mg 07/26/18 14:00 07/29/18 06:31 Lasix Injection - IVPB 80 mg BID@0600,1400 LISA Administration Methylprednisolone Sodium Succinate 40 mg 07/29/18 10:00 07/29/18 09:45 Solu-Medrol - IVPUSH 40 mg Q8H-IV LISA Administration Pantoprazole Sodium 20 mg 07/26/18 10:00 07/29/18 09:46 Protonix - PO 20 mg DAILY LISA Administration ASSESSMENT/PLAN: Acute hypercapneic hypoxic respiratory distress Acute on chronic diastolic CHF Severe Pulm HTN Sarcoidosis COPD Atrial fibrillation HTN HLD --Continue Lasix 80m BID today and will decrease tomorrow as steady trend in bicarb and BUN --Monitor I&O's with daily weights --Cardiology on board --2LNC currently; titrate to SpO2 >90% --Continue Eliquis 5mg BID PO --Continue potassium and magnesium supplementation while on high dose of lasix --Pt currently rate controlled; continue Atenolol 25mg BID PO FEN: Fluids: Avoid; active diuresis Electrolytes: Hypokalemia and hypoMg Nutrition: Sodium-controlled diet PPX: DVT - Already on eliquis GI - Not indicated currently Dispo: Continue telemetry monitoring Case discussed with Dr. Amilcar Sharma, DO - IM PGY-2 Visit type - Emergency Visit Emergency Visit: Yes ED Registration Date: 07/25/18 Care time: The patient presented to the Emergency Department on the above date and was hospitalized for further evaluation of their emergent condition. - New Patient This patient is new to me today: No - Critical Care Critical Care patient: No
--- NOTE | 2018-07-29 11:39 | PN ---
Progress Note, Physician History of Present Illness: No CV events overnight NO complaints this AM Tele: Afib 80s - Current Medication List Current Medications: Active Medications Albuterol Sulfate (Ventolin 0.083% Nebulizer Soln -) 1 amp NEB Q8H PRN PRN Reason: SHORT OF BREATH/WHEEZING Last Admin: 07/28/18 02:11 Dose: 1 amp Albuterol/Ipratropium (Duoneb -) 1 amp NEB RTID [facility] Last Admin: 07/29/18 08:00 Dose: Not Given Apixaban (Eliquis -) 5 mg PO BID [facility] Last Admin: 07/29/18 09:46 Dose: 5 mg Atenolol (Tenormin -) 25 mg PO BID [facility] Last Admin: 07/29/18 09:47 Dose: 25 mg Atorvastatin Calcium (Lipitor -) 20 mg PO HS [facility] Last Admin: 07/28/18 21:15 Dose: 20 mg Budesonide (Pulmicort 0.25 Mg Nebulizer -) 1 amp NEB RBID [facility] Last Admin: 07/29/18 08:00 Dose: Not Given Escitalopram Oxalate (Lexapro -) 10 mg PO DAILY [facility] Last Admin: 07/29/18 09:47 Dose: 10 mg Folic Acid (Folic Acid -) 1 mg PO DAILY [facility] Last Admin: 07/29/18 09:46 Dose: 1 mg Furosemide (Lasix Injection -) 80 mg IVPB BID@0600,1400 [facility] Last Admin: 07/29/18 06:31 Dose: 80 mg Methylprednisolone Sodium Succinate (Solu-Medrol -) 40 mg IVPUSH Q8H-IV [facility] Last Admin: 07/29/18 09:45 Dose: 40 mg Pantoprazole Sodium (Protonix -) 20 mg PO DAILY [facility] Last Admin: 07/29/18 09:46 Dose: 20 mg - Objective Vital Signs: Vital Signs Temperature 98.4 F 07/29/18 10:00 Pulse Rate 89 07/29/18 10:00 Respiratory Rate 20 07/29/18 10:00 Blood Pressure 128/57 L 07/29/18 10:00 O2 Sat by Pulse Oximetry (%) 95 07/29/18 10:00 Constitutional: Yes: No Distress Eyes: Yes: WNL HENT: Yes: WNL Neck: Yes: WNL Cardiovascular: Yes: Pulse Irregular Respiratory: Yes: Rales Gastrointestinal: Yes: Normal Bowel Sounds Extremities: Yes: WNL Edema: No Labs: CBC, BMP 07/29/18 05:30 07/29/18 05:30 Assessment/Plan CXR: no acute process Echo 05/03: nl LVEF. mild RVE, mild-mod RV hypo. L/NEENA. mod MR/TR. RVSP at least 88 mmHg Echo 03/2017: Mild conc lvh. 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 copd, pulm sarcoid--on home O2: -cont steroids, pulm following HTN: -cont current meds HPL: -cont home statin regimen
[2018-07-29] MEDS ORDERED: NITROGLYCERIN SUBLINGUAL 1/150 0.4 MG TAB ONE (13:28)
[2018-07-29] MEDS ORDERED: MORPHINE SULFATE 2 MG/ML VIAL IVPUSH ONE (13:41)
[2018-07-29] MEDS ORDERED: NITROGLYCERIN SUBLINGUAL 1/200 0.3 MG BTL SL ONE (13:46)
--- NOTE | 2018-07-29 13:46 | PN ---
Progress Note (short form) - Note Progress Note: Called due pt feeling some chest pain and feeling more short of breath than this morning. Pt denies any movements exacerbating the pain right now. Denies any jaw claudication or diaphoresis EKG performed with Afib @89bpm, TWI inversions in inferior leads, no Q-waves, LAD, however this is unchanged from previous EKG on Jul 25 13:50. Nitro SL given prior to arrival, however pt denies any changed effects Brief PE: Lungs: bibasilar rales (unchanged from morning rounds), no accessory muscle use Chest: pain not reproducible with palpation Cardiac: Irregularly irregular with normal S1 and S2. no overt murmurs appreciated ABD: Soft, NT/ND Ext: Unchanged pitting pedal edema in foot, no calf tenderness A/P Suspect MSK etiology despite nonreproducible pain, but obligated to r/o cardiac event --EKG already peformed --Nitro SL 0.3 once given prior to arrival --Morph 1mg ONCE --Cardiac profile to be drawn --SpO2 92% currently on NC --
[2018-07-29] MEDS ORDERED: NITROGLYCERIN SUBLINGUAL 1/150 0.4 MG TAB SL ONE (13:52)
[2018-07-29] MEDS ORDERED: PT OWN MED DRAWER 7, Y5N ONE ×3 (13:57→20:30)
--- NOTE | 2018-07-29 14:45 | PN ---
Progress Note (short form) - Note Progress Note: Noted reported CP earlier. No aute EKG changes. Given SL NTG and MS with some relief. CE are pending. Intake & Output 07/26/18 07/27/18 07/28/18 07/29/18 23:59 23:59 23:59 23:59 Intake Total 650 690 210 Output Total 1600 2400 1300 550 Balance -1600 -1750 -610 -340 Weight 158 lb 9.6 oz 158 lb 9.44 oz 162 lb 6.4 oz 161 lb 12.8 oz Last Vital Signs Temp Pulse Resp BP Pulse Ox 98.5 F 88 20 134/77 95 07/29/18 13:35 07/29/18 13:35 07/29/18 13:35 07/29/18 13:35 07/29/18 10:00 Active Medications Albuterol Sulfate (Ventolin 0.083% Nebulizer Soln -) 1 amp NEB Q8H PRN PRN Reason: SHORT OF BREATH/WHEEZING Last Admin: 07/28/18 02:11 Dose: 1 amp Albuterol/Ipratropium (Duoneb -) 1 amp NEB RTID [facility] Last Admin: 07/29/18 08:00 Dose: Not Given Apixaban (Eliquis -) 5 mg PO BID [facility] Last Admin: 07/29/18 09:46 Dose: 5 mg Atenolol (Tenormin -) 25 mg PO BID [facility] Last Admin: 07/29/18 09:47 Dose: 25 mg Atorvastatin Calcium (Lipitor -) 20 mg PO HS [facility] Last Admin: 07/28/18 21:15 Dose: 20 mg Budesonide (Pulmicort 0.25 Mg Nebulizer -) 1 amp NEB RBID [facility] Last Admin: 07/29/18 08:00 Dose: Not Given Escitalopram Oxalate (Lexapro -) 10 mg PO DAILY [facility] Last Admin: 07/29/18 09:47 Dose: 10 mg Folic Acid (Folic Acid -) 1 mg PO DAILY [facility] Last Admin: 07/29/18 09:46 Dose: 1 mg Furosemide (Lasix Injection -) 80 mg IVPB BID@0600,1400 [facility] Last Admin: 07/29/18 13:14 Dose: 80 mg Methylprednisolone Sodium Succinate (Solu-Medrol -) 40 mg IVPUSH Q8H-IV [facility] Last Admin: 07/29/18 09:45 Dose: 40 mg Nitroglycerin (Nitrostat -) 0.4 mg SL ONCE ONE Stop: 07/29/18 13:53 Last Admin: 07/29/18 13:54 Dose: 0.4 mg Pantoprazole Sodium (Protonix -) 20 mg PO DAILY [facility] Last Admin: 07/29/18 09:46 Dose: 20 mg Constitutional: Yes: NAD Eyes: Yes: WNL HENT: Yes: WNL Neck: Yes: WNL Cardiovascular: Yes: Pulse Irregular, S1, S2 Respiratory: Yes: scattered basilar rhonchi Gastrointestinal: Yes: Normal Bowel Sounds, Soft Extremities: Yes: WNL Edema: No Labs: Laboratory Results - last 24 hr 07/29/18 07/29/18 05:30 05:30 WBC 6.6 RBC 4.92 Hgb 10.3 L Hct 34.0 MCV 69.1 L MCH 20.9 L MCHC 30.2 L RDW 19.8 H Plt Count 145 MPV 9.9 Sodium 140 Potassium 4.1 Chloride 94 L Carbon Dioxide 42 H Anion Gap 4 L BUN 14 Creatinine 0.6 Creat Clearance w eGFR > 60 Random Glucose 132 H Calcium 9.3 Phosphorus 2.5 Magnesium 2.0 Problem List - Problems (1) Acute on chronic respiratory failure with hypoxia and hypercapnia Code(s): J96.21 - ACUTE AND CHRONIC RESPIRATORY FAILURE WITH HYPOXIA; J96.22 - ACUTE AND CHRONIC RESPIRATORY FAILURE WITH HYPERCAPNIA (2) Acute CHF (congestive heart failure) Code(s): I50.9 - HEART FAILURE, UNSPECIFIED (3) Atrial fibrillation Code(s): I48.91 - UNSPECIFIED ATRIAL FIBRILLATION Qualifiers: Atrial fibrillation type: permanent Qualified Code(s): I48.2 - Chronic atrial fibrillation (4) Coronary artery disease Code(s): I25.10 - ATHSCL HEART DISEASE OF [place] CORONARY ARTERY W/O ANG PCTRS Qualifiers: Coronary Disease-Associated Artery/Lesion type: [place] artery [place] vs. transplanted heart: [place] heart Associated angina: without angina Qualified Code(s): I25.10 - Atherosclerotic heart disease of [place] coronary artery without angina pectoris (5) Hypertension Code(s): I10 - ESSENTIAL (PRIMARY) HYPERTENSION Qualifiers: Hypertension type: essential hypertension Qualified Code(s): I10 - Essential (primary) hypertension (6) Pulmonary HTN Code(s): I27.20 - PULMONARY HYPERTENSION, UNSPECIFIED (7) Sarcoidosis Code(s): D86.9 - SARCOIDOSIS, UNSPECIFIED (8) Shortness of breath Code(s): R06.02 - SHORTNESS OF BREATH Assessment/Plan Acute on Chronic Hypoxic and Hypercapneic Respiratory Failure Acute on Chronic Diastolic Heart Failure COPD Sarcoidosis Severe Pulmonary HTN Atrial Fibrillation HTN Hyperlipidemia - Follow CE - Lasix - monitor urine output, creatinine - daily weights - O2 to keep SpO2>90% - inhaled bronchodilators - rate control - AC - [facility]
[2018-07-29] MEDS: ATORVASTATIN CA 20 MG TABLET (FP) PO SCH (21:17)
[2018-07-30] MEDS: methylPREDNISolone NA SUCC 40 MG/1 ML VIAL IVPUSH SCH ×3 (02:22→17:06)
[2018-07-30] MEDS: FUROSEMIDE 100 MG/10 ML INJECTABLE VIAL IVPB SCH ×2 (05:53→14:16)
[2018-07-30] MEDS: ALBUTEROL SO4 2.5/IPRATROPIUM 0.5 INH SOL 3 ML VIAL.NEB. NEB SCH ×3 (07:25→21:57)
[2018-07-30] MEDS: BUDESONIDE 0.25 MG/2ML INH SUSP VIAL NEB SCH ×2 (07:25→21:57)
[2018-07-30 08:12] LABS: BLOOD UREA NITROGEN 22 mg/dL (7-18); CHLORIDE 92 mmol/L (98-107); CREATININE 0.8 mg/dL (0.55-1.3); GLUCOSE,RANDOM 119 mg/dL (74-106); POTASSIUM 3.4 mmol/L (3.5-5.1); SODIUM 140 mmol/L (136-145)
[2018-07-30] MEDS: ATENOLOL 25 MG TABLET (FP) PO SCH ×2 (09:02→22:08)
[2018-07-30] MEDS: POTASSIUM CHLORIDE ORAL LIQUID 20 MEQ/15 ML PO SCH ×2 (09:02→22:08)
[2018-07-30] MEDS: ESCITALOPRAM OXALATE 20 MG TABLET (FP) PO SCH (09:03)
[2018-07-30] MEDS: FOLIC ACID 1 MG TABLET (FP) PO SCH (09:03)
[2018-07-30] MEDS: PANTOPRAZOLE 20 MG TABLET (FP) PO SCH (09:03)
[2018-07-30] MEDS: APIXABAN 5 MG TABLET PO SCH ×2 (09:03→22:08)
[2018-07-30 09:11] LABS: MAGNESIUM 2.2 mg/dL (1.8-2.4); PHOSPHOROUS 3.6 mg/dL (2.5-4.9)
[2018-07-30 10:26] LABS: ANION GAP -1 MMOL/L (8-16); CO2 49 mmol/L (21-32)
--- NOTE | 2018-07-30 11:28 | PN ---
Progress Note, Physician History of Present Illness: No complaints today No palps, CP or dyspnea Inquiring about going home Tele: Afib 110s - Current Medication List Current Medications: Active Medications Albuterol Sulfate (Ventolin 0.083% Nebulizer Soln -) 1 amp NEB Q8H PRN PRN Reason: SHORT OF BREATH/WHEEZING Last Admin: 07/28/18 02:11 Dose: 1 amp Albuterol/Ipratropium (Duoneb -) 1 amp NEB RTID [facility] Last Admin: 07/30/18 07:25 Dose: 1 amp Apixaban (Eliquis -) 5 mg PO BID [facility] Last Admin: 07/30/18 09:03 Dose: 5 mg Atenolol (Tenormin -) 25 mg PO BID [facility] Last Admin: 07/30/18 09:02 Dose: 25 mg Atorvastatin Calcium (Lipitor -) 20 mg PO HS [facility] Last Admin: 07/29/18 21:17 Dose: 20 mg Budesonide (Pulmicort 0.25 Mg Nebulizer -) 1 amp NEB RBID [facility] Last Admin: 07/30/18 07:25 Dose: Not Given Escitalopram Oxalate (Lexapro -) 10 mg PO DAILY [facility] Last Admin: 07/30/18 09:03 Dose: 10 mg Folic Acid (Folic Acid -) 1 mg PO DAILY [facility] Last Admin: 07/30/18 09:03 Dose: 1 mg Furosemide (Lasix Injection -) 80 mg IVPB BID@0600,1400 [facility] Last Admin: 07/30/18 05:53 Dose: 80 mg Methylprednisolone Sodium Succinate (Solu-Medrol -) 40 mg IVPUSH Q8H-IV [facility] Last Admin: 07/30/18 09:03 Dose: 40 mg Pantoprazole Sodium (Protonix -) 20 mg PO DAILY [facility] Last Admin: 07/30/18 09:03 Dose: 20 mg Potassium Chloride (Potassium Chloride Oral Liquid) 40 meq PO BID [facility] Stop: 07/31/18 22:01 Last Admin: 07/30/18 09:02 Dose: 40 meq - Objective Vital Signs: Vital Signs Temperature 98 F 07/30/18 10:00 Pulse Rate 120 H 07/30/18 10:00 Respiratory Rate 20 07/30/18 10:00 Blood Pressure 138/70 07/30/18 10:00 O2 Sat by Pulse Oximetry (%) 98 07/30/18 10:00 Constitutional: Yes: No Distress, Calm Eyes: Yes: WNL HENT: Yes: WNL Neck: Yes: WNL Cardiovascular: Yes: Pulse Irregular Respiratory: Yes: CTA Bilaterally Gastrointestinal: Yes: WNL Musculoskeletal: Yes: WNL Extremities: Yes: WNL Edema: No Labs: CBC, BMP 07/29/18 05:30 07/30/18 05:17 Assessment/Plan acute diast CHF, cor pulmonale with RV failure -BNP >7000, on bipap for increased work of breathing -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 Continue current lasix regimen, replete K afib: -cont atenolol -cont eliquis for AC a.e. copd, pulm sarcoid--on home O2: -cont steroids, pulm following HTN: -cont current meds HPL: -cont home statin regimen
--- NOTE | 2018-07-30 12:57 | PN ---
Progress Note (short form) - Note Progress Note: OOB to chair on NC O2. Still with some cough. Breathing better but not at baseline. Intake & Output 07/27/18 07/28/18 07/29/18 07/30/18 23:59 23:59 23:59 23:59 Intake Total 650 690 580 90 Output Total 2400 1300 1550 900 Balance -1750 -610 -970 -810 Weight 158 lb 9.44 oz 162 lb 6.4 oz 161 lb 12.8 oz Last Vital Signs Temp Pulse Resp BP Pulse Ox 98 F 120 H 20 138/70 98 07/30/18 10:00 07/30/18 10:00 07/30/18 10:00 07/30/18 10:00 07/30/18 10:00 Active Medications Albuterol Sulfate (Ventolin 0.083% Nebulizer Soln -) 1 amp NEB Q8H PRN PRN Reason: SHORT OF BREATH/WHEEZING Last Admin: 07/28/18 02:11 Dose: 1 amp Albuterol/Ipratropium (Duoneb -) 1 amp NEB RTID [facility] Last Admin: 07/30/18 07:25 Dose: 1 amp Apixaban (Eliquis -) 5 mg PO BID [facility] Last Admin: 07/30/18 09:03 Dose: 5 mg Atenolol (Tenormin -) 25 mg PO BID [facility] Last Admin: 07/30/18 09:02 Dose: 25 mg Atorvastatin Calcium (Lipitor -) 20 mg PO HS [facility] Last Admin: 07/29/18 21:17 Dose: 20 mg Budesonide (Pulmicort 0.25 Mg Nebulizer -) 1 amp NEB RBID [facility] Last Admin: 07/30/18 07:25 Dose: Not Given Escitalopram Oxalate (Lexapro -) 10 mg PO DAILY [facility] Last Admin: 07/30/18 09:03 Dose: 10 mg Folic Acid (Folic Acid -) 1 mg PO DAILY [facility] Last Admin: 07/30/18 09:03 Dose: 1 mg Furosemide (Lasix Injection -) 80 mg IVPB BID@0600,1400 [facility] Last Admin: 07/30/18 05:53 Dose: 80 mg Methylprednisolone Sodium Succinate (Solu-Medrol -) 40 mg IVPUSH Q8H-IV [facility] Last Admin: 07/30/18 09:03 Dose: 40 mg Pantoprazole Sodium (Protonix -) 20 mg PO DAILY [facility] Last Admin: 07/30/18 09:03 Dose: 20 mg Potassium Chloride (Potassium Chloride Oral Liquid) 40 meq PO BID [facility] Stop: 07/31/18 22:01 Last Admin: 07/30/18 09:02 Dose: 40 meq Constitutional: Yes: NAD Eyes: Yes: WNL HENT: Yes: WNL Neck: Yes: WNL Cardiovascular: Yes: Pulse Irregular, S1, S2 Respiratory: Yes: (+) Expiratory wheeze and scattered basilar rhonchi Gastrointestinal: Yes: Normal Bowel Sounds, Soft Extremities: Yes: WNL Edema: No Labs: Laboratory Results - last 24 hr 07/29/18 07/29/18 07/30/18 05:30 14:40 05:17 Sodium 140 140 Potassium 4.1 3.4 L Chloride 94 L 92 L Carbon Dioxide 42 H 49 H Anion Gap 4 L -1 L BUN 14 22 H Creatinine 0.6 0.8 Creat Clearance w eGFR > 60 > 60 Random Glucose 132 H 119 H Calcium 9.3 9.0 Phosphorus 2.5 3.6 Magnesium 2.0 2.2 Creatine Kinase 85 71 Troponin I 0.02 0.02 Problem List - Problems (1) Acute on chronic respiratory failure with hypoxia and hypercapnia Code(s): J96.21 - ACUTE AND CHRONIC RESPIRATORY FAILURE WITH HYPOXIA; J96.22 - ACUTE AND CHRONIC RESPIRATORY FAILURE WITH HYPERCAPNIA (2) Acute CHF (congestive heart failure) Code(s): I50.9 - HEART FAILURE, UNSPECIFIED (3) Atrial fibrillation Code(s): I48.91 - UNSPECIFIED ATRIAL FIBRILLATION Qualifiers: Atrial fibrillation type: permanent Qualified Code(s): I48.2 - Chronic atrial fibrillation (4) Coronary artery disease Code(s): I25.10 - ATHSCL HEART DISEASE OF [place] CORONARY ARTERY W/O ANG PCTRS Qualifiers: Coronary Disease-Associated Artery/Lesion type: [place] artery [place] vs. transplanted heart: [place] heart Associated angina: without angina Qualified Code(s): I25.10 - Atherosclerotic heart disease of [place] coronary artery without angina pectoris (5) Hypertension Code(s): I10 - ESSENTIAL (PRIMARY) HYPERTENSION Qualifiers: Hypertension type: essential hypertension Qualified Code(s): I10 - Essential (primary) hypertension (6) Pulmonary HTN Code(s): I27.20 - PULMONARY HYPERTENSION, UNSPECIFIED (7) Sarcoidosis Code(s): D86.9 - SARCOIDOSIS, UNSPECIFIED (8) Shortness of breath Code(s): R06.02 - SHORTNESS OF BREATH Assessment/Plan Acute on Chronic Hypoxic and Hypercapneic Respiratory Failure Acute on Chronic Diastolic Heart Failure COPD Sarcoidosis Severe Pulmonary HTN Atrial Fibrillation HTN Hyperlipidemia - Follow CE - Lasix - monitor urine output, creatinine - daily weights - O2 to keep SpO2>90% - inhaled bronchodilators - rate control - AC - Would leave Medrol at current dose due to active wheeze today Dr Salinas
--- NOTE | 2018-07-30 15:02 | PN ---
Physical Exam: SUBJECTIVE: Patient seen and examined, breathing unchanged from yesterday, overall improved from admission. OBJECTIVE: Vital Signs Period Temp Pulse Resp BP Sys/Garza Pulse Ox Last 24 Hr 98 F-98.8 F 85-120 18-20 118-147/56-75 97-98 GENERAL: no acute distress, mild use of accessory muscles of respiration, able to talk in full sentences CVS;S1s2 irregular Chest; Scattered rales and wheezing improved, improved air entry Abdomen:soft, nT, nD Extremities: improved pedal edema Laboratory Results - last 24 hr 07/29/18 07/29/18 07/30/18 05:30 14:40 05:17 Sodium 140 Potassium 3.4 L Chloride 92 L Carbon Dioxide 49 H Anion Gap -1 L BUN 22 H Creatinine 0.8 Creat Clearance w eGFR > 60 Random Glucose 119 H Calcium 9.0 Phosphorus 3.6 Magnesium 2.2 Creatine Kinase 85 71 Troponin I 0.02 0.02 Active Medications Generic Name Dose Route Start Last Admin Trade Name Freq PRN Reason Stop Dose Admin Albuterol Sulfate 1 amp 07/25/18 17:55 07/28/18 02:11 Ventolin 0.083% Nebulizer Soln - NEB 1 amp Q8H PRN Administration SHORT OF BREATH/WHEEZING Albuterol/Ipratropium 1 amp 07/25/18 20:00 07/30/18 07:25 Duoneb - NEB 1 amp RTID [facility] Administration Apixaban 5 mg 07/25/18 22:00 07/30/18 09:03 Eliquis - PO 5 mg BID [facility] Administration Atenolol 25 mg 07/25/18 22:00 07/30/18 09:02 Tenormin - PO 25 mg BID [facility] Administration Atorvastatin Calcium 20 mg 07/25/18 22:00 07/29/18 21:17 Lipitor - PO 20 mg HS [facility] Administration Budesonide 1 amp 07/25/18 20:00 07/30/18 07:25 Pulmicort 0.25 Mg Nebulizer - NEB Not Given RBID [facility] Escitalopram Oxalate 10 mg 07/26/18 10:00 07/30/18 09:03 Lexapro - PO 10 mg DAILY [facility] Administration Folic Acid 1 mg 07/26/18 10:00 07/30/18 09:03 Folic Acid - PO 1 mg DAILY [facility] Administration Furosemide 80 mg 07/31/18 10:00 Lasix Injection - IVPB DAILY [facility] Methylprednisolone Sodium Succinate 40 mg 07/29/18 10:00 07/30/18 09:03 Solu-Medrol - IVPUSH 40 mg Q8H-IV [facility] Administration Pantoprazole Sodium 20 mg 07/26/18 10:00 07/30/18 09:03 Protonix - PO 20 mg DAILY [facility] Administration Potassium Chloride 40 meq 07/30/18 10:00 07/30/18 09:02 Potassium Chloride Oral Liquid PO 07/31/18 22:01 40 meq BID [facility] Administration ASSESSMENT/PLAN: 81 yof with PMhx of sarcoidosis diagnosed in 1985, Chronic diastolic HF, severe pulmonary HTN, COPD on 2L home oxygen, AFib on eliquis, HTN, HLD, frequent admissions with CHF/respiratory distress admitted with acute hypercapneic/ hypoxic respiratory failure, CHF exaerbation -Acute hypercapneic/hypoxic respiratory failure -Acute diastolic heart failure exacerbation -Severe pulmonary HTN -Contraction alkalosis -Hypokalemia -Hypomagnesemia -Cor Pulmonale -Sarcoidosis -COPD on 2L home oxygen -Afib on eliquis -HTN -HLD Plan: Oxygenation/volume status improved. Bicarb/BUN rising. Decrease lasix to 80 mg IV daily. Continue solumedrol at current dose 40 mg IV q8h. Bipap prn. Standing and prn nebs. PUlmonary/cardiology input appreciated.. Replete K/phos prn. Continue atenolol/apixaban. DVTPPX as above Dispo planning in 2-3 days if continues to improve. PT eval Plan discussed with patient and nursing in detail,all questions answered. Visit type - Emergency Visit Emergency Visit: Yes ED Registration Date: 07/25/18 Care time: The patient presented to the Emergency Department on the above date and was hospitalized for further evaluation of their emergent condition. - New Patient This patient is new to me today: No - Critical Care Critical Care patient: No - Discharge Referral Referred to [facility] Med P.C.: No
[2018-07-30] MEDS ORDERED: ATENOLOL 25 MG TABLET (FP) PO ONE (16:48)
[2018-07-30] MEDS: ATORVASTATIN CA 20 MG TABLET (FP) PO SCH (22:08)
[2018-07-31] MEDS: methylPREDNISolone NA SUCC 40 MG/1 ML VIAL IVPUSH SCH ×3 (01:30→18:01)
[2018-07-31 07:02] LABS: BASO % 0.3 % (0-2.0); EOS % 0.1 % (0-4.5); HEMATOCRIT 35.8 % (32.4-45.2); HEMOGLOBIN 10.7 GM/dL (10.7-15.3); LYMPH % 5.9 % (8-40); MCH 20.9 pg (25.7-33.7); MEAN CELL VOLUME 69.7 fl (80-96); MEAN PLT VOLUME 9.7 fl (7.5-11.1); MONO % 4.3 % (3.8-10.2); NEUT % 89.4 % (42.8-82.8); PLATELET COUNT 142 K/MM3 (134-434); RBC 5.14 M/mm3 (3.60-5.2); RDW 19.7 % (11.6-15.6); WHITE BLOOD COUNT 9.8 K/mm3 (4.0-10.0)
[2018-07-31 07:24] LABS: ANION GAP 8 MMOL/L (8-16); BLOOD UREA NITROGEN 23 mg/dL (7-18); CHLORIDE 91 mmol/L (98-107); CO2 42 mmol/L (21-32); CREATININE 0.7 mg/dL (0.55-1.3); GLUCOSE,RANDOM 140 mg/dL (74-106); MAGNESIUM 2.2 mg/dL (1.8-2.4); PHOSPHOROUS 2.9 mg/dL (2.5-4.9); POTASSIUM 4.3 mmol/L (3.5-5.1); SODIUM 141 mmol/L (136-145)
[2018-07-31] MEDS ORDERED: PT OWN MED DRAWER 7, Y5N ONE (08:15)
--- NOTE | 2018-07-31 08:43 | PN ---
Physical Exam: SUBJECTIVE: Patient seen and examined this AM. She states her breathing has improved over the weekend. She endorses occasional sharp chest pain when she leans forward that resolves quickly. OBJECTIVE: Vital Signs Period Temp Pulse Resp BP Sys/Garza Pulse Ox Last 24 Hr 98 F-99.1 F 101-127 18-26 119-138/61-80 96-98 GENERAL: Oriented to person, place, and time, No acute distress HEAD: Normocephalic, atraumatic. EYES: PERRL, no scleral icterus EARS, NOSE, THROAT: Moist mucous membranes. NECK: supple without lymphadenopathy LUNGS: Rhonchi noted with better air entry at bases, expiratory wheezes, mildly tachypnic on nasal cannula HEART: Irregularly irregular, regular rate, normal S1 and S2 without murmur ABDOMEN: Soft, nontender to palpation, normoactive bowel sounds EXTREMITIES: 2+ pulses, warm, well-perfused. Trace edema of LE b/l NEUROLOGICAL: Cranial nerves II-XII grossly intact. Laboratory Results - last 24 hr 07/30/18 07/31/18 07/31/18 05:17 05:30 05:30 WBC 9.8 RBC 5.14 Hgb 10.7 Hct 35.8 MCV 69.7 L MCH 20.9 L MCHC 30.0 L RDW 19.7 H Plt Count 142 MPV 9.7 Absolute Neuts (auto) 8.7 H Neutrophils % 89.4 H D Lymphocytes % 5.9 L D Monocytes % 4.3 Eosinophils % 0.1 D Basophils % 0.3 Nucleated RBC % 0 Sodium 141 Potassium 4.3 Chloride 91 L Carbon Dioxide 49 H 42 H Anion Gap -1 L 8 BUN 23 H Creatinine 0.7 Creat Clearance w eGFR > 60 Random Glucose 140 H Calcium 9.0 Phosphorus 3.6 2.9 Magnesium 2.2 2.2 Active Medications Generic Name Dose Route Start Last Admin Trade Name Freq PRN Reason Stop Dose Admin Albuterol Sulfate 1 amp 07/25/18 17:55 07/28/18 02:11 Ventolin 0.083% Nebulizer Soln - NEB 1 amp Q8H PRN Administration SHORT OF BREATH/WHEEZING Albuterol/Ipratropium 1 amp 07/25/18 20:00 07/30/18 21:57 Duoneb - NEB 1 amp RTID [facility] Administration Apixaban 5 mg 07/25/18 22:00 07/30/18 22:08 Eliquis - PO 5 mg BID [facility] Administration Atenolol 25 mg 07/25/18 22:00 07/30/18 22:08 Tenormin - PO 25 mg BID [facility] Administration Atorvastatin Calcium 20 mg 07/25/18 22:00 07/30/18 22:08 Lipitor - PO 20 mg HS [facility] Administration Budesonide 1 amp 07/25/18 20:00 07/30/18 21:57 Pulmicort 0.25 Mg Nebulizer - NEB 1 amp RBID [facility] Administration Escitalopram Oxalate 10 mg 07/26/18 10:00 07/30/18 09:03 Lexapro - PO 10 mg DAILY [facility] Administration Folic Acid 1 mg 07/26/18 10:00 07/30/18 09:03 Folic Acid - PO 1 mg DAILY [facility] Administration Furosemide 80 mg 07/31/18 10:00 Lasix Injection - IVPB DAILY [facility] Methylprednisolone Sodium Succinate 40 mg 07/29/18 10:00 07/31/18 01:30 Solu-Medrol - IVPUSH 40 mg Q8H-IV [facility] Administration Pantoprazole Sodium 20 mg 07/26/18 10:00 07/30/18 09:03 Protonix - PO 20 mg DAILY [facility] Administration Potassium Chloride 40 meq 07/30/18 10:00 07/30/18 22:08 Potassium Chloride Oral Liquid PO 07/31/18 22:01 40 meq BID [facility] Administration ASSESSMENT/PLAN: 87 yo female with PMH of a-fib (rate controlled, on eliquis), CHF, COPD (on 2L home o2), HTN, pulmonary HTN, Depression, admitted with complaint of SOB with a cough productive of clear sputum for 2 days Acute Hypoxic Respiratory Failure -Likely fluid overloaded, unlikely pneumonia with no elevation of WBCs and pt afebrile, less likely COPD Exacerbation -Telemetry monitoring -Cardiology consult appreciated -Continue Lasix 80 mg IV BID -I&Os, Daily Weights improving -Pt saturating well on 3L NC -Budesonide NEBs BID -Albuterol NEBs PRN Q8 -Pulmicort NEBs BID -SoluMedrol 40 mg IV Q8 for continued wheezing HTN and Pulmonary HTN -Controlled on Home Atenolol 25 mg PO BID -Keep B.P. < 150 systolic with hx Pulmonary HTN A-fib -Rate is well controlled on Atenolol 25 mg PO BID -On Eliquis 5 mg PO BID HLD -Lipitor 20 mg PO HS Depression -Stable on home Lexapro 10 mg PO Daily DVT Prophylaxis -On eliquis 5 mg PO BID [facility] -Fluids: None -Electrolytes: Hypokalemia, Repleting, BMP, Mg, Phos, in AM -Nutrition: Sodium controlled Diet Disposition Telemetry Visit type - Emergency Visit Emergency Visit: Yes ED Registration Date: 07/25/18 Care time: The patient presented to the Emergency Department on the above date and was hospitalized for further evaluation of their emergent condition. - New Patient This patient is new to me today: No - Critical Care Critical Care patient: No
[2018-07-31] MEDS: ALBUTEROL SO4 2.5/IPRATROPIUM 0.5 INH SOL 3 ML VIAL.NEB. NEB SCH ×3 (08:55→20:46)
[2018-07-31] MEDS: BUDESONIDE 0.25 MG/2ML INH SUSP VIAL NEB SCH ×2 (08:56→20:46)
--- NOTE | 2018-07-31 09:27 | PN ---
Progress Note, Physician Chief Complaint: sob History of Present Illness: central chest discomfort not severe, not pleuritic/positional, comes and goes since DOA--same as prior cp she's had with pulmonary dz exacerbations. no sob at rest on O2. no palpitations, swelling of legs at present - Current Medication List Current Medications: Active Medications Albuterol Sulfate (Ventolin 0.083% Nebulizer Soln -) 1 amp NEB Q8H PRN PRN Reason: SHORT OF BREATH/WHEEZING Last Admin: 07/28/18 02:11 Dose: 1 amp Albuterol/Ipratropium (Duoneb -) 1 amp NEB RTID [facility] Last Admin: 07/31/18 08:55 Dose: 1 amp Apixaban (Eliquis -) 5 mg PO BID [facility] Last Admin: 07/30/18 22:08 Dose: 5 mg Atenolol (Tenormin -) 25 mg PO BID [facility] Last Admin: 07/30/18 22:08 Dose: 25 mg Atorvastatin Calcium (Lipitor -) 20 mg PO HS [facility] Last Admin: 07/30/18 22:08 Dose: 20 mg Budesonide (Pulmicort 0.25 Mg Nebulizer -) 1 amp NEB RBID [facility] Last Admin: 07/31/18 08:56 Dose: 1 amp Escitalopram Oxalate (Lexapro -) 10 mg PO DAILY [facility] Last Admin: 07/30/18 09:03 Dose: 10 mg Folic Acid (Folic Acid -) 1 mg PO DAILY [facility] Last Admin: 07/30/18 09:03 Dose: 1 mg Furosemide (Lasix Injection -) 80 mg IVPB DAILY [facility] Methylprednisolone Sodium Succinate (Solu-Medrol -) 40 mg IVPUSH Q8H-IV [facility] Last Admin: 07/31/18 01:30 Dose: 40 mg Pantoprazole Sodium (Protonix -) 20 mg PO DAILY [facility] Last Admin: 07/30/18 09:03 Dose: 20 mg Potassium Chloride (Potassium Chloride Oral Liquid) 40 meq PO BID [facility] Stop: 07/31/18 22:01 Last Admin: 07/30/18 22:08 Dose: 40 meq - Objective Vital Signs: Vital Signs Temperature 98.3 F 07/31/18 08:39 Pulse Rate 100 H 07/31/18 08:39 Respiratory Rate 26 H 07/31/18 08:39 Blood Pressure 128/73 07/31/18 08:39 O2 Sat by Pulse Oximetry (%) 96 07/31/18 08:39 Constitutional: Yes: Well Nourished, No Distress, Calm Cardiovascular: Yes: Pulse Irregular, JVD, S1, S2. No: Gallop, Murmur Respiratory: Yes: Regular, Rales (bases), Rhonchi (loud, throughout). No: Accessory Muscle Use Extremities: No: Cold Edema: No Neurological: Yes: Alert, Oriented Psychiatric: No: Agitated Labs: CBC, BMP 07/31/18 05:30 07/31/18 05:30 Assessment/Plan CXR: no acute process Echo 05/03: nl LVEF. mild RVE, mild-mod RV hypo. L/NEENA. mod MR/TR. RVSP at least 88 mmHg Echo 03/2017: Mild conc lvh. 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 initially 158 here. -cont lasix iv 80 bid -07/29: Creat 0.6 and weight down to 162, continue current lasix regimen -07/30: Creat 0.8, K 3.4, Wt 161. Continue current lasix regimen, replete K -07/31: 161 lbs. afib: -HR not controlled, ? being driven by hypoxia/dyspnea sx's/steroids -bp stable. change atenolol 25 bid to metoprolol succinate 25 bid. -defer CCB given concern about RV contractility depression (cor pulm pt) -if rapid HRs continue, will add digoxin -cont eliquis for AC a.e. copd, pulm sarcoid--on home O2: -cont steroids, pulm following HTN: -bp controlled -cont current meds HPL: -cont home statin regimen
[2018-07-31] MEDS: ESCITALOPRAM OXALATE 20 MG TABLET (FP) PO SCH (09:56)
[2018-07-31] MEDS: ATENOLOL 25 MG TABLET (FP) PO SCH (09:56)
[2018-07-31] MEDS: PANTOPRAZOLE 20 MG TABLET (FP) PO SCH (09:56)
[2018-07-31] MEDS: FOLIC ACID 1 MG TABLET (FP) PO SCH (09:56)
[2018-07-31] MEDS: APIXABAN 5 MG TABLET PO SCH ×2 (09:58→21:32)
[2018-07-31] MEDS: POTASSIUM CHLORIDE ORAL LIQUID 20 MEQ/15 ML PO SCH ×2 (09:58→21:33)
[2018-07-31] MEDS ORDERED: FUROSEMIDE 100 MG/10 ML INJECTABLE VIAL IVPB SCH (10:00)
--- NOTE | 2018-07-31 10:40 | EKG ---
Test Reason : Blood Pressure : / mmHG Vent. Rate : 089 BPM Atrial Rate : 080 BPM P-R Int : 000 ms QRS Dur : 084 ms QT Int : 394 ms P-R-T Axes : 000 -13 -34 degrees QTc Int : 479 ms ATRIAL FIBRILLATION NONSPECIFIC ST AND T WAVE ABNORMALITY ABNORMAL ECG WHEN COMPARED WITH ECG OF 25-JUL-2018 13:50, Confirmed by BEE MAYERS MD ([id number]) on 07/31/2018 10:39:48 AM Referred By: Confirmed By:BEE MAYERS MD
[2018-07-31 11:39] LABS: ANISOCYTOSIS 1+; OVALOCYTE 1+
--- NOTE | 2018-07-31 13:27 | PN ---
Teaching Attending Note Name of Resident: Brennan Gifford ATTENDING PHYSICIAN STATEMENT I saw and evaluated the patient. I reviewed the resident's note and discussed the case with the resident. I agree with the resident's findings and plan as documented with exceptions below. SUBJECTIVE: Patient seen and examined. breathing improved, still short of breath. OBJECTIVE: Vital Signs Period Temp Pulse Resp BP Sys/Garza Pulse Ox Last 24 Hr 98.0 F-99.1 F 100-127 18-26 119-130/61-80 96-98 Intake & Output 07/28/18 07/29/18 07/30/18 07/31/18 23:59 23:59 23:59 23:59 Intake Total 690 580 450 162 Output Total 1300 1550 2500 200 Balance -610 -970 -2050 -38 Weight 162 lb 6.4 oz 161 lb 12.8 oz 161 lb 6.4 oz general: sitting in bed, mild tachypnea, able to talk in full sentences CVS:S1S2 irregular, rapid Chest: fine rales bilaterally, improved air entry, Abdomen:soft, NT extremities: improved pedal edema Active Medications Albuterol Sulfate (Ventolin 0.083% Nebulizer Soln -) 1 amp NEB Q8H PRN PRN Reason: SHORT OF BREATH/WHEEZING Last Admin: 07/28/18 02:11 Dose: 1 amp Albuterol/Ipratropium (Duoneb -) 1 amp NEB RTID [facility] Last Admin: 07/31/18 08:55 Dose: 1 amp Apixaban (Eliquis -) 5 mg PO BID [facility] Last Admin: 07/31/18 09:58 Dose: 5 mg Atorvastatin Calcium (Lipitor -) 20 mg PO HS [facility] Last Admin: 07/30/18 22:08 Dose: 20 mg Budesonide (Pulmicort 0.25 Mg Nebulizer -) 1 amp NEB RBID [facility] Last Admin: 07/31/18 08:56 Dose: 1 amp Escitalopram Oxalate (Lexapro -) 10 mg PO DAILY [facility] Last Admin: 07/31/18 09:56 Dose: 10 mg Folic Acid (Folic Acid -) 1 mg PO DAILY [facility] Last Admin: 07/31/18 09:56 Dose: 1 mg Furosemide (Lasix Injection -) 80 mg IVPB BID@0600,1400 [facility] Methylprednisolone Sodium Succinate (Solu-Medrol -) 40 mg IVPUSH Q8H-IV [facility] Last Admin: 07/31/18 09:58 Dose: 40 mg Metoprolol Succinate (Toprol Xl -) 25 mg PO BID [facility] Pantoprazole Sodium (Protonix -) 20 mg PO DAILY [facility] Last Admin: 07/31/18 09:56 Dose: 20 mg Potassium Chloride (Potassium Chloride Oral Liquid) 40 meq PO BID [facility] Stop: 07/31/18 22:01 Last Admin: 07/31/18 09:58 Dose: 40 meq Laboratory Results - last 24 hr 07/31/18 07/31/18 05:30 05:30 WBC 9.8 RBC 5.14 Hgb 10.7 Hct 35.8 MCV 69.7 L MCH 20.9 L MCHC 30.0 L RDW 19.7 H Plt Count 142 MPV 9.7 Absolute Neuts (auto) 8.7 H Neutrophils % 89.4 H D Lymphocytes % 5.9 L D Monocytes % 4.3 Eosinophils % 0.1 D Basophils % 0.3 Nucleated RBC % 0 Hypochromia 2+ Anisocytosis 1+ Microcytosis 1+ Ovalocytes 1+ Sodium 141 Potassium 4.3 Chloride 91 L Carbon Dioxide 42 H Anion Gap 8 BUN 23 H Creatinine 0.7 Creat Clearance w eGFR > 60 Random Glucose 140 H Calcium 9.0 Phosphorus 2.9 Magnesium 2.2 ASSESSMENT AND PLAN: 81 yof with PMhx of sarcoidosis diagnosed in 1985, Chronic diastolic HF, severe pulmonary HTN, COPD on 2L home oxygen, AFib on eliquis, HTN, HLD, frequent admissions with CHF/respiratory distress admitted with acute hypercapneic/ hypoxic respiratory failure, CHF exaerbation -Acute hypercapneic/hypoxic respiratory failure -Acute diastolic heart failure exacerbation -Severe pulmonary HTN -Contraction alkalosis -Hypokalemia -Hypomagnesemia -Cor Pulmonale -Sarcoidosis -COPD on 2L home oxygen -Afib on eliquis -HTN -HLD Plan: Oxygenation/volume status improved. Bicarb/BUN stable lasix 80 mg IV BiD for now. Change atenolol to metoprolol Continue solumedrol at current dose 40 mg IV q8h. Bipap prn. Standing and prn nebs. PUlmonary/cardiology input appreciated.. Replete K/phos prn. Continue atenolol/apixaban. DVTPPX as above Dispo planning in 2-3 days if continues to improve. PT eval Plan discussed with patient and nursing in detail,all questions answered.
--- NOTE | 2018-07-31 14:27 | PN ---
Progress Note (short form) - Note Progress Note: still with some cough and LOZANO. Breathing better but not at baseline. Intake & Output 07/28/18 07/29/18 07/30/18 07/31/18 23:59 23:59 23:59 23:59 Intake Total 690 580 450 162 Output Total 1300 1550 2500 1200 Balance -610 -970 -2050 -1038 Weight 162 lb 6.4 oz 161 lb 12.8 oz 161 lb 6.4 oz Last Vital Signs Temp Pulse Resp BP Pulse Ox 98.3 F 100 H 26 H 128/73 96 07/31/18 08:39 07/31/18 08:39 07/31/18 08:39 07/31/18 08:39 07/31/18 08:39 Active Medications Albuterol Sulfate (Ventolin 0.083% Nebulizer Soln -) 1 amp NEB Q8H PRN PRN Reason: SHORT OF BREATH/WHEEZING Last Admin: 07/28/18 02:11 Dose: 1 amp Albuterol/Ipratropium (Duoneb -) 1 amp NEB RTID [facility] Last Admin: 07/31/18 14:09 Dose: 1 amp Apixaban (Eliquis -) 5 mg PO BID [facility] Last Admin: 07/31/18 09:58 Dose: 5 mg Atorvastatin Calcium (Lipitor -) 20 mg PO HS [facility] Last Admin: 07/30/18 22:08 Dose: 20 mg Budesonide (Pulmicort 0.25 Mg Nebulizer -) 1 amp NEB RBID [facility] Last Admin: 07/31/18 08:56 Dose: 1 amp Escitalopram Oxalate (Lexapro -) 10 mg PO DAILY [facility] Last Admin: 07/31/18 09:56 Dose: 10 mg Folic Acid (Folic Acid -) 1 mg PO DAILY [facility] Last Admin: 07/31/18 09:56 Dose: 1 mg Furosemide (Lasix Injection -) 80 mg IVPB BID@0600,1400 [facility] Methylprednisolone Sodium Succinate (Solu-Medrol -) 40 mg IVPUSH Q8H-IV [facility] Last Admin: 07/31/18 09:58 Dose: 40 mg Metoprolol Succinate (Toprol Xl -) 25 mg PO BID [facility] Pantoprazole Sodium (Protonix -) 20 mg PO DAILY [facility] Last Admin: 07/31/18 09:56 Dose: 20 mg Potassium Chloride (Potassium Chloride Oral Liquid) 40 meq PO BID [facility] Stop: 07/31/18 22:01 Last Admin: 07/31/18 09:58 Dose: 40 meq Constitutional: Yes: NAD Eyes: Yes: WNL HENT: Yes: WNL Neck: Yes: WNL Cardiovascular: Yes: Pulse Irregular, S1, S2 Respiratory: Yes: (+) Expiratory wheeze and scattered basilar rhonchi Gastrointestinal: Yes: Normal Bowel Sounds, Soft Extremities: Yes: WNL Edema: No Labs: Laboratory Results - last 24 hr 07/31/18 07/31/18 05:30 05:30 WBC 9.8 RBC 5.14 Hgb 10.7 Hct 35.8 MCV 69.7 L MCH 20.9 L MCHC 30.0 L RDW 19.7 H Plt Count 142 MPV 9.7 Absolute Neuts (auto) 8.7 H Neutrophils % 89.4 H D Lymphocytes % 5.9 L D Monocytes % 4.3 Eosinophils % 0.1 D Basophils % 0.3 Nucleated RBC % 0 Hypochromia 2+ Anisocytosis 1+ Microcytosis 1+ Ovalocytes 1+ Sodium 141 Potassium 4.3 Chloride 91 L Carbon Dioxide 42 H Anion Gap 8 BUN 23 H Creatinine 0.7 Creat Clearance w eGFR > 60 Random Glucose 140 H Calcium 9.0 Phosphorus 2.9 Magnesium 2.2 Problem List - Problems (1) Acute on chronic respiratory failure with hypoxia and hypercapnia Code(s): J96.21 - ACUTE AND CHRONIC RESPIRATORY FAILURE WITH HYPOXIA; J96.22 - ACUTE AND CHRONIC RESPIRATORY FAILURE WITH HYPERCAPNIA (2) Acute CHF (congestive heart failure) Code(s): I50.9 - HEART FAILURE, UNSPECIFIED (3) Atrial fibrillation Code(s): I48.91 - UNSPECIFIED ATRIAL FIBRILLATION Qualifiers: Atrial fibrillation type: permanent Qualified Code(s): I48.2 - Chronic atrial fibrillation (4) Coronary artery disease Code(s): I25.10 - ATHSCL HEART DISEASE OF [place] CORONARY ARTERY W/O ANG PCTRS Qualifiers: Coronary Disease-Associated Artery/Lesion type: [place] artery [place] vs. transplanted heart: [place] heart Associated angina: without angina Qualified Code(s): I25.10 - Atherosclerotic heart disease of [place] coronary artery without angina pectoris (5) Hypertension Code(s): I10 - ESSENTIAL (PRIMARY) HYPERTENSION Qualifiers: Hypertension type: essential hypertension Qualified Code(s): I10 - Essential (primary) hypertension (6) Pulmonary HTN Code(s): I27.20 - PULMONARY HYPERTENSION, UNSPECIFIED (7) Sarcoidosis Code(s): D86.9 - SARCOIDOSIS, UNSPECIFIED (8) Shortness of breath Code(s): R06.02 - SHORTNESS OF BREATH Assessment/Plan Acute on Chronic Hypoxic and Hypercapneic Respiratory Failure Acute on Chronic Diastolic Heart Failure COPD Sarcoidosis Severe Pulmonary HTN Atrial Fibrillation HTN Hyperlipidemia - Lasix - monitor urine output, creatinine - daily weights - O2 to keep SpO2>90% - inhaled bronchodilators - rate control - AC - Would leave Medrol at current dose due to active wheeze - Pulmicort Dr Salinas
[2018-07-31] MEDS: FUROSEMIDE 100 MG/10 ML INJECTABLE VIAL IVPB SCH (15:12)
[2018-07-31] MEDS: ATORVASTATIN CA 20 MG TABLET (FP) PO SCH (21:32)
[2018-07-31] MEDS: metoPROLOL SUCCINATE 25 MG TAB.SR.24H (FP) PO SCH (21:32)
[2018-08-01] MEDS: methylPREDNISolone NA SUCC 40 MG/1 ML VIAL IVPUSH SCH ×3 (03:22→17:02)
[2018-08-01] MEDS: FUROSEMIDE 100 MG/10 ML INJECTABLE VIAL IVPB SCH ×2 (05:59→14:03)
[2018-08-01 07:02] LABS: HEMOGLOBIN 11.5 GM/dL (10.7-15.3); MCHC 30.2 g/dl (32.0-36.0); MEAN CELL VOLUME 69.4 fl (80-96); MEAN PLT VOLUME 9.3 fl (7.5-11.1); PLATELET COUNT 160 K/MM3 (134-434); RBC 5.48 M/mm3 (3.60-5.2); RDW 19.6 % (11.6-15.6); WHITE BLOOD COUNT 9.5 K/mm3 (4.0-10.0)
[2018-08-01 07:06] LABS: ANION GAP 3 MMOL/L (8-16); BLOOD UREA NITROGEN 25 mg/dL (7-18); CALCIUM 8.6 mg/dL (8.5-10.1); CHLORIDE 90 mmol/L (98-107); CO2 44 mmol/L (21-32); CREATININE 0.8 mg/dL (0.55-1.3); GLUCOSE,RANDOM 171 mg/dL (74-106); MAGNESIUM 2.2 mg/dL (1.8-2.4); PHOSPHOROUS 3.1 mg/dL (2.5-4.9); SODIUM 137 mmol/L (136-145)
[2018-08-01] MEDS ORDERED: PT OWN MED DRAWER 7, Y5N ONE (07:44)
[2018-08-01] MEDS: BUDESONIDE 0.25 MG/2ML INH SUSP VIAL NEB SCH ×2 (08:01→21:20)
[2018-08-01] MEDS: ALBUTEROL SO4 2.5/IPRATROPIUM 0.5 INH SOL 3 ML VIAL.NEB. NEB SCH ×3 (10:00→21:30)
[2018-08-01] MEDS: metoPROLOL SUCCINATE 25 MG TAB.SR.24H (FP) PO SCH ×2 (10:09→21:20)
[2018-08-01] MEDS: FOLIC ACID 1 MG TABLET (FP) PO SCH (10:09)
[2018-08-01] MEDS: APIXABAN 5 MG TABLET PO SCH ×2 (10:09→21:19)
[2018-08-01] MEDS: ESCITALOPRAM OXALATE 20 MG TABLET (FP) PO SCH (10:09)
[2018-08-01] MEDS: PANTOPRAZOLE 20 MG TABLET (FP) PO SCH (10:10)
--- NOTE | 2018-08-01 10:14 | PN ---
Progress Note, Physician History of Present Illness: PULMONARY ALERT,STILL CONGESTED,MILDLY DYSPNEIC - Current Medication List Current Medications: Active Medications Albuterol Sulfate (Ventolin 0.083% Nebulizer Soln -) 1 amp NEB Q8H PRN PRN Reason: SHORT OF BREATH/WHEEZING Last Admin: 07/28/18 02:11 Dose: 1 amp Albuterol/Ipratropium (Duoneb -) 1 amp NEB RTID [facility] Last Admin: 08/01/18 10:00 Dose: 1 amp Apixaban (Eliquis -) 5 mg PO BID [facility] Last Admin: 07/31/18 21:32 Dose: 5 mg Atorvastatin Calcium (Lipitor -) 20 mg PO HS [facility] Last Admin: 07/31/18 21:32 Dose: 20 mg Budesonide (Pulmicort 0.25 Mg Nebulizer -) 1 amp NEB RBID [facility] Last Admin: 08/01/18 08:01 Dose: 1 amp Escitalopram Oxalate (Lexapro -) 10 mg PO DAILY [facility] Last Admin: 07/31/18 09:56 Dose: 10 mg Folic Acid (Folic Acid -) 1 mg PO DAILY [facility] Last Admin: 07/31/18 09:56 Dose: 1 mg Furosemide (Lasix Injection -) 80 mg IVPB BID@0600,1400 [facility] Last Admin: 08/01/18 05:59 Dose: 80 mg Methylprednisolone Sodium Succinate (Solu-Medrol -) 40 mg IVPUSH Q8H-IV [facility] Last Admin: 08/01/18 03:22 Dose: 40 mg Metoprolol Succinate (Toprol Xl -) 25 mg PO BID [facility] Last Admin: 07/31/18 21:32 Dose: 25 mg Pantoprazole Sodium (Protonix -) 20 mg PO DAILY [facility] Last Admin: 07/31/18 09:56 Dose: 20 mg - Objective Vital Signs: Vital Signs Temperature 98.5 F 08/01/18 09:25 Pulse Rate 94 H 08/01/18 09:25 Respiratory Rate 24 H 08/01/18 09:25 Blood Pressure 127/70 08/01/18 09:25 O2 Sat by Pulse Oximetry (%) 95 08/01/18 09:25 Constitutional: Yes: Well Nourished, Calm Eyes: Yes: WNL HENT: Yes: WNL Neck: Yes: WNL Cardiovascular: Yes: Pulse Irregular, S1, S2 Respiratory: Yes: Wheezes (SCATTERED WEN WHEEZES,and rhonchi) Gastrointestinal: Yes: Normal Bowel Sounds, Soft Extremities: Yes: WNL Edema: No Labs: CBC, BMP 08/01/18 05:30 08/01/18 05:30 Problem List - Problems (1) Acute on chronic respiratory failure with hypoxia and hypercapnia Code(s): J96.21 - ACUTE AND CHRONIC RESPIRATORY FAILURE WITH HYPOXIA; J96.22 - ACUTE AND CHRONIC RESPIRATORY FAILURE WITH HYPERCAPNIA (2) Acute CHF (congestive heart failure) Code(s): I50.9 - HEART FAILURE, UNSPECIFIED (3) Atrial fibrillation Code(s): I48.91 - UNSPECIFIED ATRIAL FIBRILLATION Qualifiers: Atrial fibrillation type: permanent Qualified Code(s): I48.2 - Chronic atrial fibrillation (4) Coronary artery disease Code(s): I25.10 - ATHSCL HEART DISEASE OF [place] CORONARY ARTERY W/O ANG PCTRS Qualifiers: Coronary Disease-Associated Artery/Lesion type: [place] artery [place] vs. transplanted heart: [place] heart Associated angina: without angina Qualified Code(s): I25.10 - Atherosclerotic heart disease of [place] coronary artery without angina pectoris (5) Hypertension Code(s): I10 - ESSENTIAL (PRIMARY) HYPERTENSION Qualifiers: Hypertension type: essential hypertension Qualified Code(s): I10 - Essential (primary) hypertension (6) Pulmonary HTN Code(s): I27.20 - PULMONARY HYPERTENSION, UNSPECIFIED (7) Sarcoidosis Code(s): D86.9 - SARCOIDOSIS, UNSPECIFIED (8) Shortness of breath Code(s): R06.02 - SHORTNESS OF BREATH Assessment/Plan ASSESSMENT AND PLAN: Acute on Chronic Hypoxic and Hypercapneic Respiratory Failure Acute on Chronic Diastolic Heart Failure COPD Sarcoidosis Severe Pulmonary HTN Atrial Fibrillation HTN Hyperlipidemia - lasix - monitor urine output, creatinine - daily weights - O2 to keep SpO2>90% - inhaled bronchodilators - rate control - anticoagulation - medrol same dose DR ALBERT
--- NOTE | 2018-08-01 11:14 | PN ---
Progress Note (short form) - Note Progress Note: s: still sob with cough better, no cp palps dizzy o: Vital Signs Period Temp Pulse Resp BP Sys/Garza Pulse Ox Last 24 Hr 98.4 F-98.5 F 94-103 20-24 120-134/64-75 95-99 Constitutional: Yes: Well Nourished, No Distress Eyes: Yes: Conjunctiva Clear, EOM Intact HENT: Yes: Atraumatic, Normocephalic Neck: Yes: Supple, Trachea Midline Respiratory: Yes: +wheeze bl, nl eff Gastrointestinal: Yes: Normal Bowel Sounds, Soft Cardiovascular: Yes: Pulse Irregular JVD: Yes Heart Sounds: Yes: S1, S2 Edema: No Peripheral Pulses: 2+ Left Doralis Pedis, 2+ Right Dorsalis Pedis Integumentary: No: Jaundice Neurological: Yes: Alert, Oriented Current Medications Generic Name Dose Route Start Last Admin Trade Name Freq PRN Reason Stop Dose Admin Albuterol Sulfate 1 amp 07/25/18 17:55 07/28/18 02:11 Ventolin 0.083% Nebulizer Soln - NEB 1 amp Q8H PRN Administration SHORT OF BREATH/WHEEZING Albuterol/Ipratropium 1 amp 07/25/18 20:00 08/01/18 10:00 Duoneb - NEB 1 amp RTID [facility] Administration Apixaban 5 mg 07/25/18 22:00 08/01/18 10:09 Eliquis - PO 5 mg BID [facility] Administration Atorvastatin Calcium 20 mg 07/25/18 22:00 07/31/18 21:32 Lipitor - PO 20 mg HS [facility] Administration Budesonide 1 amp 07/25/18 20:00 08/01/18 08:01 Pulmicort 0.25 Mg Nebulizer - NEB 1 amp RBID [facility] Administration Escitalopram Oxalate 10 mg 07/26/18 10:00 08/01/18 10:09 Lexapro - PO 10 mg DAILY [facility] Administration Folic Acid 1 mg 07/26/18 10:00 08/01/18 10:09 Folic Acid - PO 1 mg DAILY [facility] Administration Furosemide 80 mg 07/31/18 14:00 08/01/18 05:59 Lasix Injection - IVPB 80 mg BID@0600,1400 [facility] Administration Methylprednisolone Sodium Succinate 40 mg 07/29/18 10:00 08/01/18 10:09 Solu-Medrol - IVPUSH 40 mg Q8H-IV [facility] Administration Metoprolol Succinate 25 mg 07/31/18 22:00 08/01/18 10:09 Toprol Xl - PO 25 mg BID [facility] Administration Pantoprazole Sodium 20 mg 07/26/18 10:00 08/01/18 10:10 Protonix - PO 20 mg DAILY [facility] Administration CBC, BMP 08/01/18 05:30 08/01/18 05:30 Assessment/Plan CXR: no acute process Echo 05/03: nl LVEF. mild RVE, mild-mod RV hypo. L/NEENA. mod MR/TR. RVSP at least 88 mmHg Echo 03/2017: Mild conc lvh. 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 initially 158 here. -cont lasix iv 80 bid -07/29: Creat 0.6 and weight down to 162, continue current lasix regimen -07/30: Creat 0.8, K 3.4, Wt 161. Continue current lasix regimen, replete K -07/31: 161 lbs. -08/01: wt 160 lbs, cont same afib: -cont metoprolol succinate 25 bid. -defer CCB given concern about RV contractility depression (cor pulm pt) -if rapid HRs continue, will add digoxin -cont eliquis for AC a.e. copd, pulm sarcoid--on home O2: -cont steroids, pulm following HTN: -bp controlled -cont current meds HPL: -cont home statin regimen
--- NOTE | 2018-08-01 12:44 | PN ---
Physical Exam: SUBJECTIVE: Patient seen and examined this AM. She says that her breathing is very slowly improving but that she is still having some difficulty. Denies fevers, chills, n/v/d, or chest pain. OBJECTIVE: Vital Signs Period Temp Pulse Resp BP Sys/Garza Pulse Ox Last 24 Hr 98.4 F-98.5 F 94-103 20-24 120-134/64-75 95-99 GENERAL: Oriented to person, place, and time, No acute distress HEAD: Normocephalic, atraumatic. EYES: PERRL, no scleral icterus EARS, NOSE, THROAT: Moist mucous membranes. NECK: supple without lymphadenopathy LUNGS: Rhonchi noted with poor air entry at bases, expiratory wheezes, mildly tachypnic on nasal cannula HEART: Irregularly irregular, regular rate, normal S1 and S2 without murmur ABDOMEN: Soft, nontender to palpation, normoactive bowel sounds EXTREMITIES: 2+ pulses, warm, well-perfused. Trace edema of LE b/l NEUROLOGICAL: Cranial nerves II-XII grossly intact. Laboratory Results - last 24 hr 08/01/18 08/01/18 05:30 05:30 WBC 9.5 RBC 5.48 H Hgb 11.5 Hct 38.0 MCV 69.4 L MCH 21.0 L MCHC 30.2 L RDW 19.6 H Plt Count 160 MPV 9.3 Sodium 137 Potassium 4.0 Chloride 90 L Carbon Dioxide 44 H Anion Gap 3 L BUN 25 H Creatinine 0.8 Creat Clearance w eGFR > 60 Random Glucose 171 H Calcium 8.6 Phosphorus 3.1 Magnesium 2.2 Active Medications Generic Name Dose Route Start Last Admin Trade Name Freq PRN Reason Stop Dose Admin Albuterol Sulfate 1 amp 07/25/18 17:55 07/28/18 02:11 Ventolin 0.083% Nebulizer Soln - NEB 1 amp Q8H PRN Administration SHORT OF BREATH/WHEEZING Albuterol/Ipratropium 1 amp 07/25/18 20:00 08/01/18 10:00 Duoneb - NEB 1 amp RTID [facility] Administration Apixaban 5 mg 07/25/18 22:00 08/01/18 10:09 Eliquis - PO 5 mg BID [facility] Administration Atorvastatin Calcium 20 mg 07/25/18 22:00 07/31/18 21:32 Lipitor - PO 20 mg HS [facility] Administration Budesonide 1 amp 07/25/18 20:00 08/01/18 08:01 Pulmicort 0.25 Mg Nebulizer - NEB 1 amp RBID [facility] Administration Escitalopram Oxalate 10 mg 07/26/18 10:00 08/01/18 10:09 Lexapro - PO 10 mg DAILY [facility] Administration Folic Acid 1 mg 07/26/18 10:00 08/01/18 10:09 Folic Acid - PO 1 mg DAILY [facility] Administration Furosemide 80 mg 07/31/18 14:00 08/01/18 05:59 Lasix Injection - IVPB 80 mg BID@0600,1400 [facility] Administration Methylprednisolone Sodium Succinate 40 mg 07/29/18 10:00 08/01/18 10:09 Solu-Medrol - IVPUSH 40 mg Q8H-IV [facility] Administration Metoprolol Succinate 25 mg 07/31/18 22:00 08/01/18 10:09 Toprol Xl - PO 25 mg BID [facility] Administration Pantoprazole Sodium 20 mg 07/26/18 10:00 08/01/18 10:10 Protonix - PO 20 mg DAILY [facility] Administration ASSESSMENT/PLAN: 87 yo female with PMH of a-fib (rate controlled, on eliquis), CHF, COPD (on 2L home o2), HTN, pulmonary HTN, Depression, admitted with complaint of SOB with a cough productive of clear sputum for 2 days Acute Hypoxic Respiratory Failure -Likely fluid overloaded, unlikely pneumonia with no elevation of WBCs and pt afebrile, less likely COPD Exacerbation -Telemetry monitoring -Cardiology consult appreciated -Pulmonology consult appreciated -Continue Lasix 80 mg IV BID -I&Os, Daily Weights improving -Pt saturating well on 3L NC -Budesonide NEBs BID -Albuterol NEBs PRN Q8 -Pulmicort NEBs BID -SoluMedrol 40 mg IV Q8 for continued wheezing HTN and Pulmonary HTN -Controlled on Home Atenolol 25 mg PO BID -Keep B.P. < 150 systolic with hx Pulmonary HTN A-fib -Rate is well controlled on Atenolol 25 mg PO BID -On Eliquis 5 mg PO BID HLD -Lipitor 20 mg PO HS Depression -Stable on home Lexapro 10 mg PO Daily DVT Prophylaxis -On eliquis 5 mg PO BID FEN -Fluids: None -Electrolytes: Hypokalemia, Repleting, BMP, Mg, Phos, in AM -Nutrition: Sodium controlled Diet Disposition Telemetry Visit type - Emergency Visit Emergency Visit: Yes ED Registration Date: 07/25/18 Care time: The patient presented to the Emergency Department on the above date and was hospitalized for further evaluation of their emergent condition. - New Patient This patient is new to me today: No - Critical Care Critical Care patient: No
--- NOTE | 2018-08-01 16:54 | PN ---
Teaching Attending Note Name of Resident: Brennan Gifford ATTENDING PHYSICIAN STATEMENT I saw and evaluated the patient. I reviewed the resident's note and discussed the case with the resident. I agree with the resident's findings and plan as documented. SUBJECTIVE:multiple attempts to see patient but was in the bathroom OBJECTIVE: Last Vital Signs Temp Pulse Resp BP Pulse Ox 98.5 F 94 H 24 H 127/70 95 08/01/18 09:25 08/01/18 09:25 08/01/18 09:25 08/01/18 09:25 08/01/18 09:25 Intake & Output 07/29/18 07/30/18 07/31/18 08/01/18 23:59 23:59 23:59 23:59 Intake Total 580 450 632 100 Output Total 1550 2500 2200 3000 Balance -970 -2050 -1568 -2900 Weight 161 lb 12.8 oz 161 lb 6.4 oz 160 lb 12.8 oz ASSESSMENT AND PLAN: 81 yo F with PMhx of sarcoidosis diagnosed in 1985, Chronic diastolic HF, severe pulmonary HTN, COPD on 2L home oxygen, AFib on eliquis, HTN, HLD, frequent admissions with CHF/respiratory distress admitted with acute hypercapneic/hypoxic respiratory failure, CHF exaerbation 1. Acute hypercapneic/hypoxic respiratory failure-due to CHF and COPD exacerbation. unable to assess at this time. as per cardio and pulm will continue current management. cont lasix 80mg IV BID and medrol 40mg Q8H. nebs. inhalers. pulmonary on board 2. Acute diastolic heart failure exacerbation- only minimal decrease in weight. will cont lasix 80mg IV BID. monitor electrolytes, daily weights, cardio on board 3. Severe pulmonary HTN 4. Contraction alkalosis 5. Hypokalemia- replete 6. Hypomagnesemia- resolved 7. Cor Pulmonale 8. Sarcoidosis 9. COPD on 2L home oxygen 10. Afib on eliquis- rate control. eliquis 11. HTN 12. dyslipidemia 13. DVT ppx- eliquis 14. would possibly benefit from cardiac/pulmonary rehab
[2018-08-01] MEDS: ATORVASTATIN CA 20 MG TABLET (FP) PO SCH (21:20)
[2018-08-02] MEDS: methylPREDNISolone NA SUCC 40 MG/1 ML VIAL IVPUSH SCH ×3 (02:55→21:25)
[2018-08-02] MEDS: FUROSEMIDE 100 MG/10 ML INJECTABLE VIAL IVPB SCH (06:45)
[2018-08-02] MEDS: ALBUTEROL SO4 2.5/IPRATROPIUM 0.5 INH SOL 3 ML VIAL.NEB. NEB SCH ×3 (07:40→20:55)
[2018-08-02] MEDS: BUDESONIDE 0.25 MG/2ML INH SUSP VIAL NEB SCH ×3 (07:40→20:55)
[2018-08-02 08:00] LABS: HEMATOCRIT 39.5 % (32.4-45.2); HEMOGLOBIN 11.6 GM/dL (10.7-15.3); MCH 20.8 pg (25.7-33.7); MCHC 29.5 g/dl (32.0-36.0); MEAN CELL VOLUME 70.6 fl (80-96); MEAN PLT VOLUME 9.7 fl (7.5-11.1); PLATELET COUNT 179 K/MM3 (134-434); RBC 5.59 M/mm3 (3.60-5.2); RDW 19.7 % (11.6-15.6); WHITE BLOOD COUNT 9.4 K/mm3 (4.0-10.0)
[2018-08-02 08:17] LABS: BLOOD UREA NITROGEN 30 mg/dL (7-18); CALCIUM 8.8 mg/dL (8.5-10.1); CHLORIDE 87 mmol/L (98-107); CREATININE 0.7 mg/dL (0.55-1.3); GLUCOSE,RANDOM 196 mg/dL (74-106); MAGNESIUM 2.6 mg/dL (1.8-2.4); PHOSPHOROUS 3.8 mg/dL (2.5-4.9); POTASSIUM 3.9 mmol/L (3.5-5.1); SODIUM 138 mmol/L (136-145)
--- NOTE | 2018-08-02 08:42 | PN ---
Physical Exam: SUBJECTIVE: Patient seen and examined this AM. She is sitting up eating breakfast and comfortable. She states she is feeling better each day but that her lungs still sound bad to her, though her breathing is somewhat better. OBJECTIVE: Vital Signs Period Temp Pulse Resp BP Sys/Garza Pulse Ox Last 24 Hr 97.5 F-98.5 F 90-98 20-24 117-132/67-76 95-98 GENERAL: Oriented to person, place, and time, No acute distress HEAD: Normocephalic, atraumatic. EYES: PERRL, no scleral icterus EARS, NOSE, THROAT: Moist mucous membranes. NECK: supple without lymphadenopathy LUNGS: Rhonchi noted with poor air entry at bases, expiratory wheezes, comfortable and saturating well on nasal cannula HEART: Irregularly irregular, regular rate, normal S1 and S2 without murmur ABDOMEN: Soft, nontender to palpation, normoactive bowel sounds EXTREMITIES: 2+ pulses, warm, well-perfused. Edema resolved NEUROLOGICAL: Cranial nerves II-XII grossly intact. Laboratory Results - last 24 hr 08/02/18 08/02/18 05:30 05:30 WBC 9.4 RBC 5.59 H Hgb 11.6 Hct 39.5 MCV 70.6 L MCH 20.8 L MCHC 29.5 L RDW 19.7 H Plt Count 179 MPV 9.7 Sodium 138 Potassium 3.9 Chloride 87 L Carbon Dioxide > 45 H Anion Gap 6 L BUN 30 H Creatinine 0.7 Creat Clearance w eGFR > 60 Random Glucose 196 H Calcium 8.8 Phosphorus 3.8 Magnesium 2.6 H Active Medications Generic Name Dose Route Start Last Admin Trade Name Freq PRN Reason Stop Dose Admin Albuterol Sulfate 1 amp 07/25/18 17:55 07/28/18 02:11 Ventolin 0.083% Nebulizer Soln - NEB 1 amp Q8H PRN Administration SHORT OF BREATH/WHEEZING Albuterol/Ipratropium 1 amp 07/25/18 20:00 08/02/18 07:40 Duoneb - NEB 1 amp RTID LISA Administration Apixaban 5 mg 07/25/18 22:00 08/01/18 21:19 Eliquis - PO 5 mg BID LISA Administration Atorvastatin Calcium 20 mg 07/25/18 22:00 08/01/18 21:20 Lipitor - PO 20 mg HS LISA Administration Budesonide 1 amp 07/25/18 20:00 08/02/18 07:40 Pulmicort 0.25 Mg Nebulizer - NEB Not Given RBID LISA Escitalopram Oxalate 10 mg 07/26/18 10:00 08/01/18 10:09 Lexapro - PO 10 mg DAILY LISA Administration Folic Acid 1 mg 07/26/18 10:00 08/01/18 10:09 Folic Acid - PO 1 mg DAILY LISA Administration Furosemide 80 mg 07/31/18 14:00 08/02/18 06:45 Lasix Injection - IVPB 80 mg BID@0600,1400 LISA Administration Methylprednisolone Sodium Succinate 40 mg 07/29/18 10:00 08/02/18 02:55 Solu-Medrol - IVPUSH 40 mg Q8H-IV LISA Administration Metoprolol Succinate 25 mg 07/31/18 22:00 08/01/18 21:20 Toprol Xl - PO 25 mg BID LISA Administration Pantoprazole Sodium 20 mg 07/26/18 10:00 08/01/18 10:10 Protonix - PO 20 mg DAILY LISA Administration ASSESSMENT/PLAN: 87 yo female with PMH of a-fib (rate controlled, on eliquis), CHF, COPD (on 2L home o2), HTN, pulmonary HTN, Depression, admitted with complaint of SOB with a cough productive of clear sputum for 2 days Acute Hypoxic Respiratory Failure - resolving -Likely fluid overloaded, unlikely pneumonia with no elevation of WBCs and pt afebrile, less likely COPD Exacerbation -Telemetry monitoring -Cardiology consult appreciated -Pulmonology consult appreciated -I&Os, Daily Weights improving -Pt saturating well on 2L NC -Budesonide NEBs BID -Albuterol NEBs PRN Q8 -Pulmicort NEBs BID -SoluMedrol 40 mg IV BID -Lasix 80 mg Daily PO HTN and Pulmonary HTN -Controlled on Home Atenolol 25 mg PO BID -Keep B.P. < 150 systolic with hx Pulmonary HTN A-fib -Rate is well controlled on Atenolol 25 mg PO BID -On Eliquis 5 mg PO BID HLD -Lipitor 20 mg PO HS Depression -Stable on home Lexapro 10 mg PO Daily DVT Prophylaxis -On eliquis 5 mg PO BID FEN -Fluids: None -Electrolytes: Hypokalemia, Repleting, BMP, Mg, Phos, in AM -Nutrition: Sodium controlled Diet Disposition Telemetry Visit type - Emergency Visit Emergency Visit: Yes ED Registration Date: 07/25/18 Care time: The patient presented to the Emergency Department on the above date and was hospitalized for further evaluation of their emergent condition. - New Patient This patient is new to me today: No - Critical Care Critical Care patient: No
[2018-08-02] MEDS ORDERED: POTASSIUM CHLORIDE TABS 20 MEQ TABLET.ER (FP) PO ONE ×2 (08:44→12:38)
[2018-08-02 08:47] LABS: ANION GAP 5 MMOL/L (8-16); CO2 46 mmol/L (21-32)
[2018-08-02] MEDS: ESCITALOPRAM OXALATE 20 MG TABLET (FP) PO SCH (09:12)
[2018-08-02] MEDS: metoPROLOL SUCCINATE 25 MG TAB.SR.24H (FP) PO SCH ×2 (09:12→21:26)
[2018-08-02] MEDS: PANTOPRAZOLE 20 MG TABLET (FP) PO SCH (09:12)
[2018-08-02] MEDS: FOLIC ACID 1 MG TABLET (FP) PO SCH (09:12)
[2018-08-02] MEDS: APIXABAN 5 MG TABLET PO SCH ×2 (09:12→21:25)
--- NOTE | 2018-08-02 09:28 | PN ---
Progress Note, Physician Chief Complaint: sob History of Present Illness: sob getting better, lots of phlegm in chest still leg swelling better no palpit, cp no cigs - Current Medication List Current Medications: Active Medications Albuterol Sulfate (Ventolin 0.083% Nebulizer Soln -) 1 amp NEB Q8H PRN PRN Reason: SHORT OF BREATH/WHEEZING Last Admin: 07/28/18 02:11 Dose: 1 amp Albuterol/Ipratropium (Duoneb -) 1 amp NEB RTID [facility] Last Admin: 08/02/18 07:40 Dose: 1 amp Apixaban (Eliquis -) 5 mg PO BID [facility] Last Admin: 08/02/18 09:12 Dose: 5 mg Atorvastatin Calcium (Lipitor -) 20 mg PO HS [facility] Last Admin: 08/01/18 21:20 Dose: 20 mg Budesonide (Pulmicort 0.25 Mg Nebulizer -) 1 amp NEB RBID [facility] Last Admin: 08/02/18 07:40 Dose: Not Given Escitalopram Oxalate (Lexapro -) 10 mg PO DAILY [facility] Last Admin: 08/02/18 09:12 Dose: 10 mg Folic Acid (Folic Acid -) 1 mg PO DAILY [facility] Last Admin: 08/02/18 09:12 Dose: 1 mg Furosemide (Lasix Injection -) 80 mg IVPB BID@0600,1400 [facility] Last Admin: 08/02/18 06:45 Dose: 80 mg Methylprednisolone Sodium Succinate (Solu-Medrol -) 40 mg IVPUSH Q8H-IV [facility] Last Admin: 08/02/18 09:12 Dose: 40 mg Metoprolol Succinate (Toprol Xl -) 25 mg PO BID [facility] Last Admin: 08/02/18 09:12 Dose: 25 mg Pantoprazole Sodium (Protonix -) 20 mg PO DAILY [facility] Last Admin: 08/02/18 09:12 Dose: 20 mg - Objective Vital Signs: Vital Signs Temperature 97.6 F 08/02/18 06:52 Pulse Rate 96 H 08/02/18 06:52 Respiratory Rate 20 08/02/18 06:52 Blood Pressure 131/67 08/02/18 06:52 O2 Sat by Pulse Oximetry (%) 98 08/01/18 22:00 Constitutional: Yes: No Distress, Calm Eyes: No: Sclera Icterus HENT: No: Nasal Congestion Cardiovascular: Yes: Pulse Irregular, S1, S2, Other (PMI non diplaced). No: JVD (in chair), Gallop, Murmur Respiratory: Yes: Rhonchi. No: Accessory Muscle Use, Rales, Wheezes Gastrointestinal: Yes: Normal Bowel Sounds, Soft. No: Tenderness Musculoskeletal: Yes: Other (No kyphosis) Extremities: No: Cold Edema: No Integumentary: No: Jaundice Neurological: Yes: Alert, Oriented (x3) Psychiatric: No: Agitated Labs: CBC, BMP 08/02/18 05:30 08/02/18 05:30 Assessment/Plan CXR: no acute process Echo 05/03: nl LVEF. mild RVE, mild-mod RV hypo. L/NEENA. mod MR/TR. RVSP at least 88 mmHg Echo 03/2017: Mild conc lvh. 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 initially 158 here. -cont lasix iv 80 bid -07/29: Creat 0.6 and weight down to 162, continue current lasix regimen -07/30: Creat 0.8, K 3.4, Wt 161. Continue current lasix regimen, replete K -07/31: 161 lbs. -08/01: wt 160 lbs, cont same -08/02: 159 lb, appears euvolemic. bicarb high, bun rising. was on lasix 40 qd at home. will transition 80 iv bid to 80 qd--will need outpt labs f/u in few days after discharge afib: -rapid rates initially, atenolol changed to metoprolol succinate (same dose = 25 bid)--HR controlled. -defer CCB given concern about RV contractility depression (cor pulm pt) -if rapid HRs continue, will add digoxin -cont eliquis for AC HTN: -bp controlled -cont current meds HPL: -cont home statin regimen
--- NOTE | 2018-08-02 11:29 | PN ---
Progress Note, Physician History of Present Illness: PULMONARY ALERT,OOB-CHAIR,LESS DYSPNEIC - Current Medication List Current Medications: Active Medications Albuterol Sulfate (Ventolin 0.083% Nebulizer Soln -) 1 amp NEB Q8H PRN PRN Reason: SHORT OF BREATH/WHEEZING Last Admin: 07/28/18 02:11 Dose: 1 amp Albuterol/Ipratropium (Duoneb -) 1 amp NEB RTID [facility] Last Admin: 08/02/18 07:40 Dose: 1 amp Apixaban (Eliquis -) 5 mg PO BID [facility] Last Admin: 08/02/18 09:12 Dose: 5 mg Atorvastatin Calcium (Lipitor -) 20 mg PO HS [facility] Last Admin: 08/01/18 21:20 Dose: 20 mg Budesonide (Pulmicort 0.25 Mg Nebulizer -) 1 amp NEB RBID [facility] Last Admin: 08/02/18 08:30 Dose: 1 amp Escitalopram Oxalate (Lexapro -) 10 mg PO DAILY [facility] Last Admin: 08/02/18 09:12 Dose: 10 mg Folic Acid (Folic Acid -) 1 mg PO DAILY [facility] Last Admin: 08/02/18 09:12 Dose: 1 mg Furosemide (Lasix -) 80 mg PO DAILY [facility] Methylprednisolone Sodium Succinate (Solu-Medrol -) 40 mg IVPUSH Q8H-IV [facility] Last Admin: 08/02/18 09:12 Dose: 40 mg Metoprolol Succinate (Toprol Xl -) 25 mg PO BID [facility] Last Admin: 08/02/18 09:12 Dose: 25 mg Pantoprazole Sodium (Protonix -) 20 mg PO DAILY [facility] Last Admin: 08/02/18 09:12 Dose: 20 mg - Objective Vital Signs: Vital Signs Temperature 97.6 F 08/02/18 06:52 Pulse Rate 96 H 08/02/18 06:52 Respiratory Rate 20 08/02/18 06:52 Blood Pressure 131/67 08/02/18 06:52 O2 Sat by Pulse Oximetry (%) 98 08/02/18 09:00 Constitutional: Yes: Well Nourished, Calm Eyes: Yes: WNL HENT: Yes: WNL Neck: Yes: WNL Cardiovascular: Yes: Pulse Irregular, S1, S2 Respiratory: Yes: Wheezes (SCATTERED WEN WHEEZES) Gastrointestinal: Yes: Normal Bowel Sounds, Soft Extremities: Yes: WNL Edema: No Labs: CBC, BMP 08/02/18 05:30 08/02/18 05:30 Problem List - Problems (1) Acute on chronic respiratory failure with hypoxia and hypercapnia Code(s): J96.21 - ACUTE AND CHRONIC RESPIRATORY FAILURE WITH HYPOXIA; J96.22 - ACUTE AND CHRONIC RESPIRATORY FAILURE WITH HYPERCAPNIA (2) Acute CHF (congestive heart failure) Code(s): I50.9 - HEART FAILURE, UNSPECIFIED (3) Atrial fibrillation Code(s): I48.91 - UNSPECIFIED ATRIAL FIBRILLATION Qualifiers: Atrial fibrillation type: permanent Qualified Code(s): I48.2 - Chronic atrial fibrillation (4) Coronary artery disease Code(s): I25.10 - ATHSCL HEART DISEASE OF [place] CORONARY ARTERY W/O ANG PCTRS Qualifiers: Coronary Disease-Associated Artery/Lesion type: [place] artery [place] vs. transplanted heart: [place] heart Associated angina: without angina Qualified Code(s): I25.10 - Atherosclerotic heart disease of [place] coronary artery without angina pectoris (5) Hypertension Code(s): I10 - ESSENTIAL (PRIMARY) HYPERTENSION Qualifiers: Hypertension type: essential hypertension Qualified Code(s): I10 - Essential (primary) hypertension (6) Pulmonary HTN Code(s): I27.20 - PULMONARY HYPERTENSION, UNSPECIFIED (7) Sarcoidosis Code(s): D86.9 - SARCOIDOSIS, UNSPECIFIED (8) Shortness of breath Code(s): R06.02 - SHORTNESS OF BREATH Assessment/Plan ASSESSMENT AND PLAN: Acute on Chronic Hypoxic and Hypercapneic Respiratory Failure clinically improving Acute on Chronic Diastolic Heart Failure COPD Sarcoidosis Severe Pulmonary HTN Atrial Fibrillation HTN Hyperlipidemia - lasix - monitor urine output, creatinine - daily weights - O2 to keep SpO2>90% - inhaled bronchodilators - rate control - anticoagulation - medrol taper DR ALBERT
--- NOTE | 2018-08-02 13:02 | PN ---
Teaching Attending Note Name of Resident: Brennan Gifford ATTENDING PHYSICIAN STATEMENT I saw and evaluated the patient. I reviewed the resident's note and discussed the case with the resident. I agree with the resident's findings and plan as documented. SUBJECTIVE:states breathing is slightly improved. continues to have non productive cough. denies CP, SOB, fever, chills, N/V/C/D OBJECTIVE: Last Vital Signs Temp Pulse Resp BP Pulse Ox 97.6 F 96 H 20 131/67 98 08/02/18 06:52 08/02/18 06:52 08/02/18 06:52 08/02/18 06:52 08/02/18 09:00 Intake & Output 07/30/18 07/31/18 08/01/18 08/02/18 23:59 23:59 23:59 23:59 Intake Total 450 632 350 240 Output Total 2500 2200 3900 600 Balance -3630 -1568 -3550 -360 Weight 161 lb 6.4 oz 160 lb 12.8 oz 159 lb 12.8 oz General NAD Lungs coarse rhonchi throughout. extremities trace pitting edema ASSESSMENT AND PLAN: 81 yo F with PMhx of sarcoidosis diagnosed in 1985, Chronic diastolic HF, severe pulmonary HTN, COPD on 2L home oxygen, AFib on eliquis, HTN, HLD, frequent admissions with CHF/respiratory distress admitted with acute hypercapneic/hypoxic respiratory failure, CHF exaerbation 1. Acute hypercapneic/hypoxic respiratory failure-due to CHF and COPD exacerbation. cont to have rhonchi. appears more euvolemic at this time. would switch lasix to po. decrease medrol to BID at this time. cont nebs & inhalers. pulmonary and cardio on board 2. Acute diastolic heart failure exacerbation-weight is lower than on previous admission. appears more euvolemic. bicarb rising. switch lasix to po. monitor electrolytes, daily weights, cardio on board 3. Severe pulmonary HTN 4. Contraction alkalosis 5. Hypokalemia- replete 6. Hypomagnesemia- resolved 7. Cor Pulmonale 8. Sarcoidosis 9. COPD on 2L home oxygen 10. Afib on eliquis- rate control. eliquis 11. HTN 12. dyslipidemia 13. DVT ppx- eliquis 14. would possibly benefit from cardiac/pulmonary rehab. pt is apprehensive on going but willing to discuss with family about options.
[2018-08-02] MEDS ORDERED: FLU VACCINE QUAD 60 MCG/0.5 ML (MDV 18-19) IM ONE (21:05)
[2018-08-02] MEDS: ATORVASTATIN CA 20 MG TABLET (FP) PO SCH (21:25)
[2018-08-03] MEDS ORDERED: PT OWN MED DRAWER 7, Y5N ONE ×3 (07:28→20:51)
[2018-08-03] MEDS: ALBUTEROL SO4 2.5/IPRATROPIUM 0.5 INH SOL 3 ML VIAL.NEB. NEB SCH ×3 (07:44→20:50)
[2018-08-03 08:09] LABS: BLOOD UREA NITROGEN 29 mg/dL (7-18); CALCIUM 8.9 mg/dL (8.5-10.1); CHLORIDE 85 mmol/L (98-107); CREATININE 0.7 mg/dL (0.55-1.3); GLUCOSE,RANDOM 197 mg/dL (74-106); HEMATOCRIT 42.9 % (32.4-45.2); HEMOGLOBIN 12.6 GM/dL (10.7-15.3); MAGNESIUM 2.6 mg/dL (1.8-2.4); MCH 20.5 pg (25.7-33.7); MCHC 29.3 g/dl (32.0-36.0); MEAN PLT VOLUME 10.2 fl (7.5-11.1); PHOSPHOROUS 4.4 mg/dL (2.5-4.9); PLATELET COUNT 222 K/MM3 (134-434); POTASSIUM 4.4 mmol/L (3.5-5.1); RBC 6.13 M/mm3 (3.60-5.2); RDW 19.5 % (11.6-15.6); SODIUM 136 mmol/L (136-145); WHITE BLOOD COUNT 12.8 K/mm3 (4.0-10.0)
[2018-08-03] MEDS: methylPREDNISolone NA SUCC 40 MG/1 ML VIAL IVPUSH SCH ×2 (09:05→21:03)
[2018-08-03] MEDS: FOLIC ACID 1 MG TABLET (FP) PO SCH (09:06)
[2018-08-03] MEDS: ESCITALOPRAM OXALATE 20 MG TABLET (FP) PO SCH (09:06)
[2018-08-03] MEDS: FUROSEMIDE 40 MG TABLET (FP) PO SCH (09:06)
[2018-08-03] MEDS: PANTOPRAZOLE 20 MG TABLET (FP) PO SCH (09:06)
[2018-08-03] MEDS: metoPROLOL SUCCINATE 25 MG TAB.SR.24H (FP) PO SCH ×2 (09:06→21:03)
[2018-08-03] MEDS: APIXABAN 5 MG TABLET PO SCH ×2 (09:08→21:03)
[2018-08-03] MEDS: BUDESONIDE 0.25 MG/2ML INH SUSP VIAL NEB SCH ×2 (10:00→20:50)
--- NOTE | 2018-08-03 10:06 | PN ---
Progress Note (short form) - Note Progress Note: s: still sob with cough, no palps dizzy; occ pleuritic cp, worse with cough o: Vital Signs Period Temp Pulse Resp BP Sys/Garza Pulse Ox Last 24 Hr 97.4 F-98.7 F 77-102 20-20 106-159/60-76 98-98 Constitutional: Yes: Well Nourished, No Distress Eyes: Yes: Conjunctiva Clear, EOM Intact HENT: Yes: Atraumatic, Normocephalic Neck: Yes: Supple, Trachea Midline Respiratory: Yes: +wheeze bl, nl eff Gastrointestinal: Yes: Normal Bowel Sounds, Soft Cardiovascular: Yes: Pulse Irregular JVD: Yes Heart Sounds: Yes: S1, S2 Edema: No Peripheral Pulses: 2+ Left Doralis Pedis, 2+ Right Dorsalis Pedis Integumentary: No: Jaundice Neurological: Yes: Alert, Oriented Current Medications Generic Name Dose Route Start Last Admin Trade Name Freq PRN Reason Stop Dose Admin Albuterol Sulfate 1 amp 07/25/18 17:55 07/28/18 02:11 Ventolin 0.083% Nebulizer Soln - NEB 1 amp Q8H PRN Administration SHORT OF BREATH/WHEEZING Albuterol/Ipratropium 1 amp 07/25/18 20:00 08/03/18 07:44 Duoneb - NEB 1 amp RTID LISA Administration Apixaban 5 mg 07/25/18 22:00 08/03/18 09:08 Eliquis - PO 5 mg BID LISA Administration Atorvastatin Calcium 20 mg 07/25/18 22:00 08/02/18 21:25 Lipitor - PO 20 mg HS LISA Administration Budesonide 1 amp 07/25/18 20:00 08/02/18 20:55 Pulmicort 0.25 Mg Nebulizer - NEB Not Given RBID LISA Escitalopram Oxalate 10 mg 07/26/18 10:00 08/03/18 09:06 Lexapro - PO 10 mg DAILY LISA Administration Folic Acid 1 mg 07/26/18 10:00 08/03/18 09:06 Folic Acid - PO 1 mg DAILY LISA Administration Furosemide 80 mg 08/03/18 10:00 08/03/18 09:06 Lasix - PO 80 mg DAILY LISA Administration Methylprednisolone Sodium Succinate 40 mg 08/02/18 22:00 08/03/18 09:05 Solu-Medrol - IVPUSH 40 mg BID LISA Administration Metoprolol Succinate 25 mg 07/31/18 22:00 08/03/18 09:06 Toprol Xl - PO 25 mg BID LISA Administration Pantoprazole Sodium 20 mg 07/26/18 10:00 08/03/18 09:06 Protonix - PO 20 mg DAILY LISA Administration CBC, BMP 08/03/18 06:45 08/03/18 06:45 Assessment/Plan CXR: no acute process Echo 05/03: nl LVEF. mild RVE, mild-mod RV hypo. L/NEENA. mod MR/TR. RVSP at least 88 mmHg Echo 03/2017: Mild conc lvh. 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 initially 158 here. -cont lasix iv 80 bid -07/29: Creat 0.6 and weight down to 162, continue current lasix regimen -07/30: Creat 0.8, K 3.4, Wt 161. Continue current lasix regimen, replete K -07/31: 161 lbs. -08/01: wt 160 lbs, cont same -08/02-: 159 lb, appears euvolemic. bicarb high, bun rising. was on lasix 40 qd at home. transitioned 80 iv bid to 80 qd--will need outpt labs f/u in few days after discharge afib: -rapid rates initially, atenolol changed to metoprolol succinate (same dose = 25 bid)--HR controlled. -defer CCB given concern about RV contractility depression (cor pulm pt) -if rapid HRs continue, will add digoxin -cont eliquis for AC HTN: -bp controlled -cont current meds HPL: -cont home statin regimen
--- NOTE | 2018-08-03 10:36 | PN ---
Progress Note (short form) - Note Progress Note: Although slightly improved, still with cough and LOZANO. Breathing overall better but not at baseline. Intake & Output 07/31/18 08/01/18 08/02/18 08/03/18 23:59 23:59 23:59 23:59 Intake Total 632 350 490 200 Output Total 2200 3900 1300 500 Balance -1568 -3550 -810 -300 Weight 161 lb 6.4 oz 160 lb 12.8 oz 159 lb 12.8 oz 158 lb 6 oz Last Vital Signs Temp Pulse Resp BP Pulse Ox 98.7 F 83 20 116/68 98 08/03/18 08:55 08/03/18 08:55 08/03/18 08:55 08/03/18 08:55 08/03/18 02:27 Active Medications Albuterol Sulfate (Ventolin 0.083% Nebulizer Soln -) 1 amp NEB Q8H PRN PRN Reason: SHORT OF BREATH/WHEEZING Last Admin: 07/28/18 02:11 Dose: 1 amp Albuterol/Ipratropium (Duoneb -) 1 amp NEB RTID [facility] Last Admin: 08/03/18 07:44 Dose: 1 amp Apixaban (Eliquis -) 5 mg PO BID [facility] Last Admin: 08/03/18 09:08 Dose: 5 mg Atorvastatin Calcium (Lipitor -) 20 mg PO HS [facility] Last Admin: 08/02/18 21:25 Dose: 20 mg Budesonide (Pulmicort 0.25 Mg Nebulizer -) 1 amp NEB RBID [facility] Last Admin: 08/02/18 20:55 Dose: Not Given Escitalopram Oxalate (Lexapro -) 10 mg PO DAILY [facility] Last Admin: 08/03/18 09:06 Dose: 10 mg Folic Acid (Folic Acid -) 1 mg PO DAILY [facility] Last Admin: 08/03/18 09:06 Dose: 1 mg Furosemide (Lasix -) 80 mg PO DAILY [facility] Last Admin: 08/03/18 09:06 Dose: 80 mg Methylprednisolone Sodium Succinate (Solu-Medrol -) 40 mg IVPUSH BID [facility] Last Admin: 08/03/18 09:05 Dose: 40 mg Metoprolol Succinate (Toprol Xl -) 25 mg PO BID [facility] Last Admin: 08/03/18 09:06 Dose: 25 mg Pantoprazole Sodium (Protonix -) 20 mg PO DAILY [facility] Last Admin: 08/03/18 09:06 Dose: 20 mg Constitutional: Yes: NAD Eyes: Yes: WNL HENT: Yes: WNL Neck: Yes: WNL Cardiovascular: Yes: Pulse Irregular, S1, S2 Respiratory: Yes: (+) Expiratory wheeze and scattered basilar rhonchi Gastrointestinal: Yes: Normal Bowel Sounds, Soft Extremities: Yes: WNL Edema: No Labs: Laboratory Results - last 24 hr 08/03/18 08/03/18 06:45 06:45 WBC 12.8 H RBC 6.13 H Hgb 12.6 Hct 42.9 MCV 70.0 L MCH 20.5 L MCHC 29.3 L RDW 19.5 H Plt Count 222 D MPV 10.2 Sodium 136 Potassium 4.4 Chloride 85 L Carbon Dioxide > 45 H Anion Gap 5 L BUN 29 H Creatinine 0.7 Creat Clearance w eGFR > 60 Random Glucose 197 H Calcium 8.9 Phosphorus 4.4 Magnesium 2.6 H Problem List - Problems (1) Acute on chronic respiratory failure with hypoxia and hypercapnia Code(s): J96.21 - ACUTE AND CHRONIC RESPIRATORY FAILURE WITH HYPOXIA; J96.22 - ACUTE AND CHRONIC RESPIRATORY FAILURE WITH HYPERCAPNIA (2) Acute CHF (congestive heart failure) Code(s): I50.9 - HEART FAILURE, UNSPECIFIED (3) Atrial fibrillation Code(s): I48.91 - UNSPECIFIED ATRIAL FIBRILLATION Qualifiers: Atrial fibrillation type: permanent Qualified Code(s): I48.2 - Chronic atrial fibrillation (4) Coronary artery disease Code(s): I25.10 - ATHSCL HEART DISEASE OF [place] CORONARY ARTERY W/O ANG PCTRS Qualifiers: Coronary Disease-Associated Artery/Lesion type: [place] artery [place] vs. transplanted heart: [place] heart Associated angina: without angina Qualified Code(s): I25.10 - Atherosclerotic heart disease of [place] coronary artery without angina pectoris (5) Hypertension Code(s): I10 - ESSENTIAL (PRIMARY) HYPERTENSION Qualifiers: Hypertension type: essential hypertension Qualified Code(s): I10 - Essential (primary) hypertension (6) Pulmonary HTN Code(s): I27.20 - PULMONARY HYPERTENSION, UNSPECIFIED (7) Sarcoidosis Code(s): D86.9 - SARCOIDOSIS, UNSPECIFIED (8) Shortness of breath Code(s): R06.02 - SHORTNESS OF BREATH Assessment/Plan Acute on Chronic Hypoxic and Hypercapneic Respiratory Failure Acute on Chronic Diastolic Heart Failure COPD Sarcoidosis Severe Pulmonary HTN Atrial Fibrillation HTN Hyperlipidemia - Lasix - monitor urine output, creatinine - daily weights - O2 to keep SpO2>90% - inhaled bronchodilators - rate control - AC - Would leave Medrol at current dose - Pulmicort Dr [place]
[2018-08-03 10:56] LABS: CO2 44 mmol/L (21-32)
[2018-08-03 10:57] LABS: ANION GAP 7 MMOL/L (8-16)
--- NOTE | 2018-08-03 15:43 | PN ---
Physical Exam: SUBJECTIVE: Patient seen and examined this AM. She states she is still slowly improving. She states that she wants to speak with her family about pulmonary rehab, but that she feels it would be a good idea at this time. OBJECTIVE: Vital Signs Period Temp Pulse Resp BP Sys/Garza Pulse Ox Last 24 Hr 97.4 F-98.7 F 77-102 20-20 106-159/60-76 98-98 GENERAL: Oriented to person, place, and time, No acute distress HEAD: Normocephalic, atraumatic. EYES: PERRL, no scleral icterus EARS, NOSE, THROAT: Moist mucous membranes. NECK: supple without lymphadenopathy LUNGS: Rhonchi noted with poor air entry at bases, expiratory wheezes improving , comfortable and saturating well on nasal cannula HEART: Irregularly irregular, regular rate, normal S1 and S2 without murmur ABDOMEN: Soft, nontender to palpation, normoactive bowel sounds EXTREMITIES: 2+ pulses, warm, well-perfused. Edema resolved NEUROLOGICAL: Cranial nerves II-XII grossly intact. Laboratory Results - last 24 hr 08/03/18 08/03/18 06:45 06:45 WBC 12.8 H RBC 6.13 H Hgb 12.6 Hct 42.9 MCV 70.0 L MCH 20.5 L MCHC 29.3 L RDW 19.5 H Plt Count 222 D MPV 10.2 Sodium 136 Potassium 4.4 Chloride 85 L Carbon Dioxide 44 H Anion Gap 7 L BUN 29 H Creatinine 0.7 Creat Clearance w eGFR > 60 Random Glucose 197 H Calcium 8.9 Phosphorus 4.4 Magnesium 2.6 H Active Medications Generic Name Dose Route Start Last Admin Trade Name Freq PRN Reason Stop Dose Admin Acetaminophen 650 mg 08/03/18 13:05 Tylenol - PO Q4H PRN PAIN Albuterol Sulfate 1 amp 07/25/18 17:55 07/28/18 02:11 Ventolin 0.083% Nebulizer Soln - NEB 1 amp Q8H PRN Administration SHORT OF BREATH/WHEEZING Albuterol/Ipratropium 1 amp 07/25/18 20:00 08/03/18 15:12 Duoneb - NEB 1 amp RTID LISA Administration Apixaban 5 mg 07/25/18 22:00 08/03/18 09:08 Eliquis - PO 5 mg BID LISA Administration Atorvastatin Calcium 20 mg 07/25/18 22:00 08/02/18 21:25 Lipitor - PO 20 mg HS LISA Administration Budesonide 1 amp 07/25/18 20:00 08/03/18 10:00 Pulmicort 0.25 Mg Nebulizer - NEB 1 amp RBID LISA Administration Escitalopram Oxalate 10 mg 07/26/18 10:00 08/03/18 09:06 Lexapro - PO 10 mg DAILY LISA Administration Folic Acid 1 mg 07/26/18 10:00 08/03/18 09:06 Folic Acid - PO 1 mg DAILY LISA Administration Furosemide 80 mg 08/03/18 10:00 08/03/18 09:06 Lasix - PO 80 mg DAILY LISA Administration Methylprednisolone Sodium Succinate 40 mg 08/02/18 22:00 08/03/18 09:05 Solu-Medrol - IVPUSH 40 mg BID LISA Administration Metoprolol Succinate 25 mg 07/31/18 22:00 08/03/18 09:06 Toprol Xl - PO 25 mg BID LISA Administration Pantoprazole Sodium 20 mg 07/26/18 10:00 08/03/18 09:06 Protonix - PO 20 mg DAILY LISA Administration ASSESSMENT/PLAN: 87 yo female with PMH of a-fib (rate controlled, on eliquis), CHF, COPD (on 2L home o2), HTN, pulmonary HTN, Depression, admitted with complaint of SOB with a cough productive of clear sputum for 2 days Acute Hypoxic Respiratory Failure - resolving -Likely fluid overloaded, unlikely pneumonia with no elevation of WBCs and pt afebrile, less likely COPD Exacerbation -Cardiology consult appreciated -Pulmonology consult appreciated -I&Os, Daily Weights improving -Pt saturating well on 2L NC -Budesonide NEBs BID -Albuterol NEBs PRN Q8 -Pulmicort NEBs BID -SoluMedrol 40 mg IV BID -Lasix 80 mg Daily PO -Pt will likely need pulmonary rehab, she wants to discuss with family but is amenable HTN and Pulmonary HTN -Controlled on Home Atenolol 25 mg PO BID -Keep B.P. < 150 systolic with hx Pulmonary HTN A-fib -Rate is well controlled on Atenolol 25 mg PO BID -On Eliquis 5 mg PO BID HLD -Lipitor 20 mg PO HS Depression -Stable on home Lexapro 10 mg PO Daily DVT Prophylaxis -On eliquis 5 mg PO BID FEN -Fluids: None -Electrolytes: No abnormalities, BMP, Mg, Phos, in AM -Nutrition: Sodium controlled Diet Disposition Med/Surg, DC planning in 24-48 hours pending rehab placement/authorization Visit type - Emergency Visit Emergency Visit: Yes ED Registration Date: 07/25/18 Care time: The patient presented to the Emergency Department on the above date and was hospitalized for further evaluation of their emergent condition. - New Patient This patient is new to me today: No - Critical Care Critical Care patient: No
--- NOTE | 2018-08-03 18:36 | PN ---
Teaching Attending Note Name of Resident: Brennan Gifford ATTENDING PHYSICIAN STATEMENT I saw and evaluated the patient. I reviewed the resident's note and discussed the case with the resident. I agree with the resident's findings and plan as documented. SUBJECTIVE:breathing is improved. denies Cp, SOB, fever, chills, n/V/C/D noted to have hematuria last night. pt states she thinks her catheter got pulled when going to the bathroom OBJECTIVE: Last Vital Signs Temp Pulse Resp BP Pulse Ox 98.2 F 93 H 20 124/76 98 08/03/18 14:45 08/03/18 14:45 08/03/18 14:45 08/03/18 14:45 08/03/18 10:00 Intake & Output 07/31/18 08/01/18 08/02/18 08/03/18 23:59 23:59 23:59 23:59 Intake Total 632 350 490 200 Output Total 2200 3900 1300 1100 Balance -1568 -3550 -810 -900 Weight 161 lb 6.4 oz 160 lb 12.8 oz 159 lb 12.8 oz 158 lb 6 oz General NAD Lungs diffuse wheezing. no crackles extremities trace pitting edema ASSESSMENT AND PLAN: 81 yo F with PMhx of sarcoidosis diagnosed in 1985, Chronic diastolic HF, severe pulmonary HTN, COPD on 2L home oxygen, AFib on eliquis, HTN, HLD, frequent admissions with CHF/respiratory distress admitted with acute hypercapneic/hypoxic respiratory failure, CHF exaerbation 1. Acute hypercapneic/hypoxic respiratory failure-due to CHF and COPD exacerbation. clinically improved. cont medrol at current dosing. consider switching to po in next 24H. cont nebs & inhalers. pulmonary and cardio on board 2. Acute diastolic heart failure exacerbation-appears euvolemic. cont current dosing. monitor electrolytes, daily weights, cardio on board 3. Hematuria- likely traumatic. will flush rodriguez to see if now draining clear. check Hgb to see if stable. if it is will d/c rodriguez 4. Severe pulmonary HTN 5. Contraction alkalosis 6. Hypokalemia- replete 7. Hypomagnesemia- resolved 8. Cor Pulmonale 9. Sarcoidosis 10. COPD on 2L home oxygen 11. Afib on eliquis- rate control. eliquis 12. HTN 13. dyslipidemia 14. DVT ppx- eliquis 15. anticipate discharge in next 24-48H. would benefit from pulm rehab. pt is now agreeable. CM notified
[2018-08-03] MEDS: ATORVASTATIN CA 20 MG TABLET (FP) PO SCH (21:03)
[2018-08-04] MEDS: ALBUTEROL SO4 2.5/IPRATROPIUM 0.5 INH SOL 3 ML VIAL.NEB. NEB SCH ×3 (07:28→20:37)
[2018-08-04] MEDS: BUDESONIDE 0.25 MG/2ML INH SUSP VIAL NEB SCH ×2 (07:28→20:37)
[2018-08-04 07:46] LABS: HEMATOCRIT 39.1 % (32.4-45.2); HEMOGLOBIN 11.6 GM/dL (10.7-15.3); MCH 20.5 pg (25.7-33.7); MCHC 29.6 g/dl (32.0-36.0); MEAN CELL VOLUME 69.3 fl (80-96); MEAN PLT VOLUME 9.1 fl (7.5-11.1); PLATELET COUNT 165 K/MM3 (134-434); RBC 5.64 M/mm3 (3.60-5.2); RDW 19.4 % (11.6-15.6); WHITE BLOOD COUNT 9.9 K/mm3 (4.0-10.0)
[2018-08-04 08:50] LABS: ANION GAP 7 MMOL/L (8-16); BLOOD UREA NITROGEN 32 mg/dL (7-18); CALCIUM 8.3 mg/dL (8.5-10.1); CHLORIDE 87 mmol/L (98-107); CO2 43 mmol/L (21-32); CREATININE 0.8 mg/dL (0.55-1.3); GLUCOSE,RANDOM 246 mg/dL (74-106); MAGNESIUM 2.7 mg/dL (1.8-2.4); PHOSPHOROUS 3.6 mg/dL (2.5-4.9); POTASSIUM 3.8 mmol/L (3.5-5.1); SODIUM 137 mmol/L (136-145)
[2018-08-04] MEDS: methylPREDNISolone NA SUCC 40 MG/1 ML VIAL IVPUSH SCH ×2 (10:02→21:23)
[2018-08-04] MEDS: APIXABAN 5 MG TABLET PO SCH (10:03)
[2018-08-04] MEDS: FUROSEMIDE 40 MG TABLET (FP) PO SCH (10:04)
[2018-08-04] MEDS: FOLIC ACID 1 MG TABLET (FP) PO SCH (10:04)
[2018-08-04] MEDS: metoPROLOL SUCCINATE 25 MG TAB.SR.24H (FP) PO SCH ×2 (10:04→21:23)
[2018-08-04] MEDS: PANTOPRAZOLE 20 MG TABLET (FP) PO SCH (10:04)
[2018-08-04] MEDS: ESCITALOPRAM OXALATE 20 MG TABLET (FP) PO SCH (10:05)
--- NOTE | 2018-08-04 10:34 | PN ---
Progress Note (short form) - Note Progress Note: s: still sob with cough, no palps dizzy; occ pleuritic cp, worse with cough o: Vital Signs Period Temp Pulse Resp BP Sys/Garza Pulse Ox Last 24 Hr 97.8 F-98.5 F 87-93 18-22 119-156/60-94 95-95 Constitutional: Yes: Well Nourished, No Distress Eyes: Yes: Conjunctiva Clear, EOM Intact HENT: Yes: Atraumatic, Normocephalic Neck: Yes: Supple, Trachea Midline Respiratory: Yes: +wheeze bl, nl eff Gastrointestinal: Yes: Normal Bowel Sounds, Soft Cardiovascular: Yes: Pulse Irregular JVD: Yes Heart Sounds: Yes: S1, S2 Edema: No Peripheral Pulses: 2+ Left Doralis Pedis, 2+ Right Dorsalis Pedis Integumentary: No: Jaundice Neurological: Yes: Alert, Oriented Current Medications Generic Name Dose Route Start Last Admin Trade Name Freq PRN Reason Stop Dose Admin Acetaminophen 650 mg 08/03/18 13:05 Tylenol - PO Q4H PRN PAIN Albuterol Sulfate 1 amp 07/25/18 17:55 07/28/18 02:11 Ventolin 0.083% Nebulizer Soln - NEB 1 amp Q8H PRN Administration SHORT OF BREATH/WHEEZING Albuterol/Ipratropium 1 amp 07/25/18 20:00 08/04/18 07:28 Duoneb - NEB Not Given RTID LISA Apixaban 5 mg 07/25/18 22:00 08/04/18 10:03 Eliquis - PO 5 mg BID LISA Administration Atorvastatin Calcium 20 mg 07/25/18 22:00 08/03/18 21:03 Lipitor - PO 20 mg HS LISA Administration Budesonide 1 amp 07/25/18 20:00 08/04/18 07:28 Pulmicort 0.25 Mg Nebulizer - NEB Not Given RBID LISA Escitalopram Oxalate 10 mg 07/26/18 10:00 08/04/18 10:05 Lexapro - PO 10 mg DAILY LISA Administration Folic Acid 1 mg 07/26/18 10:00 08/04/18 10:04 Folic Acid - PO 1 mg DAILY LISA Administration Furosemide 80 mg 08/03/18 10:00 08/04/18 10:04 Lasix - PO 80 mg DAILY LISA Administration Methylprednisolone Sodium Succinate 40 mg 08/02/18 22:00 08/04/18 10:02 Solu-Medrol - IVPUSH 40 mg BID LISA Administration Metoprolol Succinate 25 mg 07/31/18 22:00 08/04/18 10:04 Toprol Xl - PO 25 mg BID LISA Administration Pantoprazole Sodium 20 mg 07/26/18 10:00 08/04/18 10:04 Protonix - PO 20 mg DAILY LISA Administration CBC, BMP 08/04/18 06:00 08/04/18 06:00 Assessment/Plan CXR: no acute process Echo 05/03: nl LVEF. mild RVE, mild-mod RV hypo. L/NEENA. mod MR/TR. RVSP at least 88 mmHg Echo 03/2017: Mild conc lvh. 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 initially 158 here. -cont lasix iv 80 bid -07/29: Creat 0.6 and weight down to 162, continue current lasix regimen -07/30: Creat 0.8, K 3.4, Wt 161. Continue current lasix regimen, replete K -07/31: 161 lbs. -08/01: wt 160 lbs, cont same -08/02-: appears euvolemic. was on lasix 40 qd at home. transitioned 80 iv bid to 80 qd afib: -rapid rates initially, atenolol changed to metoprolol succinate (same dose = 25 bid)--HR controlled. -defer CCB given concern about RV contractility depression (cor pulm pt) -if rapid HRs continue, will add digoxin -cont eliquis for AC HTN: -bp controlled -cont current meds HPL: -cont home statin regimen
--- NOTE | 2018-08-04 13:31 | PN ---
Physical Exam: SUBJECTIVE: Patient seen and examined this AM. She is agreeable to pulmonary rehab. Awaiting insurance authorization and bed availability. OBJECTIVE: Vital Signs Period Temp Pulse Resp BP Sys/Garza Pulse Ox Last 24 Hr 97.8 F-98.5 F 87-93 18-22 119-156/60-94 95-99 GENERAL: Oriented to person, place, and time, No acute distress HEAD: Normocephalic, atraumatic. EYES: PERRL, no scleral icterus EARS, NOSE, THROAT: Moist mucous membranes. NECK: supple without lymphadenopathy LUNGS: Rhonchi with decreased air entry at bases, expiratory wheezes improving, comfortable and saturating well on 2L nasal cannula HEART: Irregularly irregular, regular rate, normal S1 and S2 without murmur ABDOMEN: Soft, nontender to palpation, normoactive bowel sounds EXTREMITIES: 2+ pulses, warm, well-perfused. Edema resolved NEUROLOGICAL: Cranial nerves II-XII grossly intact. Laboratory Results - last 24 hr 08/04/18 08/04/18 06:00 06:00 WBC 9.9 RBC 5.64 H Hgb 11.6 Hct 39.1 MCV 69.3 L MCH 20.5 L MCHC 29.6 L RDW 19.4 H Plt Count 165 D MPV 9.1 D Sodium 137 Potassium 3.8 Chloride 87 L Carbon Dioxide 43 H Anion Gap 7 L BUN 32 H Creatinine 0.8 Creat Clearance w eGFR > 60 Random Glucose 246 H Calcium 8.3 L Phosphorus 3.6 Magnesium 2.7 H Active Medications Generic Name Dose Route Start Last Admin Trade Name Freq PRN Reason Stop Dose Admin Acetaminophen 650 mg 08/03/18 13:05 Tylenol - PO Q4H PRN PAIN Albuterol Sulfate 1 amp 07/25/18 17:55 07/28/18 02:11 Ventolin 0.083% Nebulizer Soln - NEB 1 amp Q8H PRN Administration SHORT OF BREATH/WHEEZING Albuterol/Ipratropium 1 amp 07/25/18 20:00 08/04/18 07:28 Duoneb - NEB Not Given RTID LISA Apixaban 5 mg 07/25/18 22:00 08/04/18 10:03 Eliquis - PO 5 mg BID LISA Administration Atorvastatin Calcium 20 mg 07/25/18 22:00 08/03/18 21:03 Lipitor - PO 20 mg HS LISA Administration Budesonide 1 amp 07/25/18 20:00 08/04/18 07:28 Pulmicort 0.25 Mg Nebulizer - NEB Not Given RBID LISA Escitalopram Oxalate 10 mg 07/26/18 10:00 08/04/18 10:05 Lexapro - PO 10 mg DAILY LISA Administration Folic Acid 1 mg 07/26/18 10:00 08/04/18 10:04 Folic Acid - PO 1 mg DAILY LISA Administration Furosemide 80 mg 08/03/18 10:00 08/04/18 10:04 Lasix - PO 80 mg DAILY LISA Administration Methylprednisolone Sodium Succinate 40 mg 08/02/18 22:00 08/04/18 10:02 Solu-Medrol - IVPUSH 40 mg BID LISA Administration Metoprolol Succinate 25 mg 07/31/18 22:00 08/04/18 10:04 Toprol Xl - PO 25 mg BID LISA Administration Pantoprazole Sodium 20 mg 07/26/18 10:00 08/04/18 10:04 Protonix - PO 20 mg DAILY LISA Administration ASSESSMENT/PLAN: 87 yo female with PMH of a-fib (rate controlled, on eliquis), CHF, COPD (on 2L home o2), HTN, pulmonary HTN, Depression, admitted with complaint of SOB with a cough productive of clear sputum for 2 days Acute Hypoxic Respiratory Failure - resolving -Likely fluid overloaded, unlikely pneumonia with no elevation of WBCs and pt afebrile, less likely COPD Exacerbation -Cardiology consult appreciated -Pulmonology consult appreciated -I&Os, Daily Weights improving -Pt saturating well on 2L NC -Budesonide NEBs BID -Albuterol NEBs PRN Q8 -Pulmicort NEBs BID -SoluMedrol 40 mg IV BID -Lasix 80 mg Daily PO -Pt will likely need pulmonary rehab, she is amenable, awaiting insurance authorization/bed placement -DC on slow steroid taper, Prednisone 60 mg PO Daily, decreased by 5 mg every 3 days until complete, pending clinical improvement prior to DC HTN and Pulmonary HTN -Controlled on Home Atenolol 25 mg PO BID -Keep B.P. < 150 systolic with hx Pulmonary HTN A-fib -Rate is well controlled on Atenolol 25 mg PO BID -On Eliquis 5 mg PO BID HLD -Lipitor 20 mg PO HS Depression -Stable on home Lexapro 10 mg PO Daily DVT Prophylaxis -On eliquis 5 mg PO BID FEN -Fluids: None -Electrolytes: No abnormalities, BMP, Mg, Phos, in AM -Nutrition: Sodium controlled Diet Disposition Med/Surg, DC planning pending pulmonary rehab placement/authorization Visit type - Emergency Visit Emergency Visit: Yes ED Registration Date: 07/25/18 Care time: The patient presented to the Emergency Department on the above date and was hospitalized for further evaluation of their emergent condition. - New Patient This patient is new to me today: No - Critical Care Critical Care patient: No
--- NOTE | 2018-08-04 15:13 | PN ---
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,feeling better,less dyspneic - Current Medication List Current Medications: Active Medications Acetaminophen (Tylenol -) 650 mg PO Q4H PRN PRN Reason: PAIN Albuterol Sulfate (Ventolin 0.083% Nebulizer Soln -) 1 amp NEB Q8H PRN PRN Reason: SHORT OF BREATH/WHEEZING Last Admin: 07/28/18 02:11 Dose: 1 amp Albuterol/Ipratropium (Duoneb -) 1 amp NEB RTID [facility] Last Admin: 08/04/18 14:14 Dose: 1 amp Apixaban (Eliquis -) 5 mg PO BID [facility] Last Admin: 08/04/18 10:03 Dose: 5 mg Atorvastatin Calcium (Lipitor -) 20 mg PO HS [facility] Last Admin: 08/03/18 21:03 Dose: 20 mg Budesonide (Pulmicort 0.25 Mg Nebulizer -) 1 amp NEB RBID [facility] Last Admin: 08/04/18 07:28 Dose: Not Given Escitalopram Oxalate (Lexapro -) 10 mg PO DAILY [facility] Last Admin: 08/04/18 10:05 Dose: 10 mg Folic Acid (Folic Acid -) 1 mg PO DAILY [facility] Last Admin: 08/04/18 10:04 Dose: 1 mg Furosemide (Lasix -) 80 mg PO DAILY [facility] Last Admin: 08/04/18 10:04 Dose: 80 mg Methylprednisolone Sodium Succinate (Solu-Medrol -) 40 mg IVPUSH BID [facility] Last Admin: 08/04/18 10:02 Dose: 40 mg Metoprolol Succinate (Toprol Xl -) 25 mg PO BID [facility] Last Admin: 08/04/18 10:04 Dose: 25 mg Pantoprazole Sodium (Protonix -) 20 mg PO DAILY [facility] Last Admin: 08/04/18 10:04 Dose: 20 mg - Objective Vital Signs: Vital Signs Temperature 97.8 F 08/04/18 08:27 Pulse Rate 87 08/04/18 08:27 Respiratory Rate 20 08/04/18 09:00 Blood Pressure 140/84 08/04/18 08:27 O2 Sat by Pulse Oximetry (%) 99 08/04/18 10:00 Constitutional: Yes: Well Nourished, Calm Eyes: Yes: WNL HENT: Yes: WNL Neck: Yes: WNL Cardiovascular: Yes: Regular Rate and Rhythm, S1, S2 Respiratory: Yes: Wheezes (scattered raad wheezes) Gastrointestinal: Yes: Normal Bowel Sounds, Soft Extremities: Yes: WNL Edema: No Labs: CBC, BMP 08/04/18 06:00 08/04/18 06:00 Problem List - Problems (1) Acute on chronic respiratory failure with hypoxia and hypercapnia Code(s): J96.21 - ACUTE AND CHRONIC RESPIRATORY FAILURE WITH HYPOXIA; J96.22 - ACUTE AND CHRONIC RESPIRATORY FAILURE WITH HYPERCAPNIA (2) Acute CHF (congestive heart failure) Code(s): I50.9 - HEART FAILURE, UNSPECIFIED (3) Atrial fibrillation Code(s): I48.91 - UNSPECIFIED ATRIAL FIBRILLATION Qualifiers: Atrial fibrillation type: permanent Qualified Code(s): I48.2 - Chronic atrial fibrillation (4) Coronary artery disease Code(s): I25.10 - ATHSCL HEART DISEASE OF [place] CORONARY ARTERY W/O ANG PCTRS Qualifiers: Coronary Disease-Associated Artery/Lesion type: [place] artery [place] vs. transplanted heart: [place] heart Associated angina: without angina Qualified Code(s): I25.10 - Atherosclerotic heart disease of [place] coronary artery without angina pectoris (5) Hypertension Code(s): I10 - ESSENTIAL (PRIMARY) HYPERTENSION Qualifiers: Hypertension type: essential hypertension Qualified Code(s): I10 - Essential (primary) hypertension (6) Pulmonary HTN Code(s): I27.20 - PULMONARY HYPERTENSION, UNSPECIFIED (7) Sarcoidosis Code(s): D86.9 - SARCOIDOSIS, UNSPECIFIED (8) Shortness of breath Code(s): R06.02 - SHORTNESS OF BREATH Assessment/Plan ASSESSMENT AND PLAN: Acute on Chronic Hypoxic and Hypercapneic Respiratory Failure clinically improving Acute on Chronic Diastolic Heart Failure COPD Sarcoidosis Severe Pulmonary HTN Atrial Fibrillation HTN Hyperlipidemia - lasix - monitor urine output, creatinine - daily weights - O2 to keep SpO2>90% - inhaled bronchodilators - rate control - anticoagulation - annmarie ALBERT
--- NOTE | 2018-08-04 16:34 | PN ---
Teaching Attending Note Name of Resident: Brennan Gifford ATTENDING PHYSICIAN STATEMENT I saw and evaluated the patient. I reviewed the resident's note and discussed the case with the resident. I agree with the resident's findings and plan as documented. SUBJECTIVE:states she feels better today. cough has resolved. denies CP, SOB, fever, chills, N/V/C/D OBJECTIVE: Last Vital Signs Temp Pulse Resp BP Pulse Ox 97.8 F 87 20 140/84 99 08/04/18 08:27 08/04/18 08:27 08/04/18 09:00 08/04/18 08:27 08/04/18 10:00 General NAD Lungs scattered wheezing extremities no pitting edema ASSESSMENT AND PLAN: 81 yo F with PMhx of sarcoidosis diagnosed in 1985, Chronic diastolic HF, severe pulmonary HTN, COPD on 2L home oxygen, AFib on eliquis, HTN, HLD, frequent admissions with CHF/respiratory distress admitted with acute hypercapneic/hypoxic respiratory failure, CHF exaerbation 1. Acute hypercapneic/hypoxic respiratory failure-due to CHF and COPD exacerbation. clinically improved. consider switching to po steroids tomorrow. on medrol 40mg BID. cont nebs & inhalers. pulmonary and cardio on board 2. Acute diastolic heart failure exacerbation-appears euvolemic. cont current dosing. monitor electrolytes, daily weights, cardio on board 3. Hematuria- likely traumatic. resolved. Hgb stable. rodriguez removed 4. Severe pulmonary HTN 5. Contraction alkalosis 6. Hypokalemia- replete 7. Hypomagnesemia- resolved 8. Cor Pulmonale 9. Sarcoidosis 10. COPD on 2L home oxygen 11. Afib on eliquis- rate control. eliquis 12. HTN 13. dyslipidemia 14. DVT ppx- eliquis 15. medically stable for discharge. would benefit from pulmonary rehab. awaiting bed availability
[2018-08-04] MEDS ORDERED: BUDESONIDE 0.5 MG/2 ML INH SUSP VIAL NEB ONE (20:17)
[2018-08-04] MEDS: ATORVASTATIN CA 20 MG TABLET (FP) PO SCH (21:23)
[2018-08-05] MEDS: APIXABAN 5 MG TABLET PO SCH ×3 (01:22→21:42)
[2018-08-05] MEDS: BUDESONIDE 0.25 MG/2ML INH SUSP VIAL NEB SCH ×2 (07:53→20:10)
[2018-08-05] MEDS: ALBUTEROL SO4 2.5/IPRATROPIUM 0.5 INH SOL 3 ML VIAL.NEB. NEB SCH ×3 (07:53→20:00)
[2018-08-05 08:14] LABS: ANION GAP 4 MMOL/L (8-16); BLOOD UREA NITROGEN 26 mg/dL (7-18); CALCIUM 8.1 mg/dL (8.5-10.1); CHLORIDE 89 mmol/L (98-107); CO2 44 mmol/L (21-32); CREATININE 0.7 mg/dL (0.55-1.3); GLUCOSE,RANDOM 244 mg/dL (74-106); POTASSIUM 3.8 mmol/L (3.5-5.1); SODIUM 136 mmol/L (136-145)
--- NOTE | 2018-08-05 09:53 | PN ---
Progress Note (short form) - Note Progress Note: states she feels fine but reports she had some bright red blood in her urine this am. was not painful. denies CP, SOB, fever, chills, N/V/C/D. states she does not get intermittent bleeding in the past Current Medications Generic Name Dose Route Start Last Admin Trade Name Freq PRN Reason Stop Dose Admin Acetaminophen 650 mg 08/03/18 13:05 Tylenol - PO Q4H PRN PAIN Albuterol Sulfate 1 amp 07/25/18 17:55 07/28/18 02:11 Ventolin 0.083% Nebulizer Soln - NEB 1 amp Q8H PRN Administration SHORT OF BREATH/WHEEZING Albuterol/Ipratropium 1 amp 07/25/18 20:00 08/05/18 07:53 Duoneb - NEB 1 amp RTID LISA Administration Apixaban 5 mg 07/25/18 22:00 08/05/18 01:22 Eliquis - PO 5 mg BID LISA Administration Atorvastatin Calcium 20 mg 07/25/18 22:00 08/04/18 21:23 Lipitor - PO 20 mg HS LISA Administration Budesonide 1 amp 07/25/18 20:00 08/05/18 07:53 Pulmicort 0.25 Mg Nebulizer - NEB 1 amp RBID LISA Administration Escitalopram Oxalate 10 mg 07/26/18 10:00 08/04/18 10:05 Lexapro - PO 10 mg DAILY LISA Administration Folic Acid 1 mg 07/26/18 10:00 08/04/18 10:04 Folic Acid - PO 1 mg DAILY LISA Administration Furosemide 80 mg 08/03/18 10:00 08/04/18 10:04 Lasix - PO 80 mg DAILY LISA Administration Methylprednisolone Sodium Succinate 40 mg 08/02/18 22:00 08/04/18 21:23 Solu-Medrol - IVPUSH 40 mg BID LISA Administration Metoprolol Succinate 25 mg 07/31/18 22:00 08/04/18 21:23 Toprol Xl - PO 25 mg BID LISA Administration Pantoprazole Sodium 20 mg 07/26/18 10:00 08/04/18 10:04 Protonix - PO 20 mg DAILY LISA Administration Last Vital Signs Temp Pulse Resp BP Pulse Ox 98.5 F 84 20 161/98 98 08/05/18 05:18 08/05/18 05:18 10/20/18 05:18 08/05/18 05:18 08/04/18 22:00 Intake & Output 08/02/18 08/03/18 08/04/18 08/05/18 23:59 23:59 23:59 23:59 Intake Total 490 300 400 200 Output Total 1300 1350 Balance -810 -1050 400 200 Weight 159 lb 12.8 oz 158 lb 6 oz 160 lb 6 oz 161 lb 7 oz General NAD Lungs scattered wheezing, rhonchi throughout [place] soft NT/ND extremities no pitting edema CMP Sodium 136 mmol/L (136-145) 08/05/18 06:00 Potassium 3.8 mmol/L (3.5-5.1) 08/05/18 06:00 Chloride 89 mmol/L (98-107) L 08/05/18 06:00 Carbon Dioxide 44 mmol/L (21-32) H 08/05/18 06:00 Anion Gap 4 MMOL/L (8-16) L 08/05/18 06:00 BUN 26 mg/dL (7-18) H 08/05/18 06:00 Creatinine 0.7 mg/dL (0.55-1.3) 08/05/18 06:00 Creat Clearance w eGFR > 60 (>60) 08/05/18 06:00 Calcium 8.1 mg/dL (8.5-10.1) L 08/05/18 06:00 Total Bilirubin 1.0 mg/dL (0.2-1) 07/26/18 06:30 AST 22 U/L (15-37) 07/26/18 06:30 ALT 14 U/L (13-61) 07/26/18 06:30 Alkaline Phosphatase 74 U/L (45-117) 07/26/18 06:30 Total Protein 6.2 g/dl (6.4-8.2) L 07/26/18 06:30 Albumin 2.9 g/dl (3.4-5.0) L 07/26/18 06:30 ASSESSMENT AND PLAN: 81 yo F with PMhx of sarcoidosis diagnosed in 1985, Chronic diastolic HF, severe pulmonary HTN, COPD on 2L home oxygen, AFib on eliquis, HTN, HLD, frequent admissions with CHF/respiratory distress admitted with acute hypercapneic/hypoxic respiratory failure, CHF exaerbation 1. Acute hypercapneic/hypoxic respiratory failure-due to CHF and COPD exacerbation. clinically improved. will switch to prednisone 40mg. will need slow taper. cont nebs & inhalers. pulmonary and cardio on board 2. Acute diastolic heart failure exacerbation-appears euvolemic. cont current dosing. monitor electrolytes, daily weights, cardio on board 3. Hematuria- likely traumatic. another episode today. possible from prolonged rodriguez placement although need to consider infection. check UA. check Hgb. 4. Severe pulmonary HTN 5. Contraction alkalosis 6. Hypokalemia- replete 7. Hypomagnesemia- resolved 8. Cor Pulmonale 9. Sarcoidosis 10. COPD on 2L home oxygen 11. Afib on eliquis- rate control. eliquis 12. HTN 13. dyslipidemia 14. DVT ppx- eliquis 15. would benefit from pulmonary rehab Visit type - Emergency Visit Emergency Visit: Yes ED Registration Date: 07/25/18 Care time: The patient presented to the Emergency Department on the above date and was hospitalized for further evaluation of their emergent condition. - New Patient This patient is new to me today: No - Critical Care Critical Care patient: No - Discharge Referral Referred to [facility] No
[2018-08-05] MEDS ORDERED: methylPREDNISolone NA SUCC 40 MG/1 ML VIAL IVPUSH SCH (10:00)
[2018-08-05 10:05] LABS: HEMATOCRIT 38.8 % (32.4-45.2); HEMOGLOBIN 11.4 GM/dL (10.7-15.3); MCH 20.7 pg (25.7-33.7); MCHC 29.4 g/dl (32.0-36.0); MEAN CELL VOLUME 70.3 fl (80-96); MEAN PLT VOLUME 9.6 fl (7.5-11.1); PLATELET COUNT 180 K/MM3 (134-434); RBC 5.52 M/mm3 (3.60-5.2); RDW 19.4 % (11.6-15.6); WHITE BLOOD COUNT 11.2 K/mm3 (4.0-10.0)
[2018-08-05] MEDS: FOLIC ACID 1 MG TABLET (FP) PO SCH (10:56)
[2018-08-05] MEDS: PANTOPRAZOLE 20 MG TABLET (FP) PO SCH (10:56)
[2018-08-05] MEDS: ESCITALOPRAM OXALATE 20 MG TABLET (FP) PO SCH (10:56)
[2018-08-05] MEDS: metoPROLOL SUCCINATE 25 MG TAB.SR.24H (FP) PO SCH ×2 (10:56→21:42)
[2018-08-05] MEDS: FUROSEMIDE 40 MG TABLET (FP) PO SCH (10:56)
--- NOTE | 2018-08-05 12:05 | PN ---
Progress Note (short form) - Note Progress Note: s: still sob with cough, no palps dizzy; occ pleuritic cp, worse with cough o: Vital Signs Period Temp Pulse Resp BP Sys/Garza Pulse Ox Last 24 Hr 97.5 F-98.5 F 84-92 20-20 117-161/63-98 98-98 Constitutional: Yes: Well Nourished, No Distress Eyes: Yes: Conjunctiva Clear, EOM Intact HENT: Yes: Atraumatic, Normocephalic Neck: Yes: Supple, Trachea Midline Respiratory: Yes: +wheeze bl, nl eff Gastrointestinal: Yes: Normal Bowel Sounds, Soft Cardiovascular: Yes: Pulse Irregular JVD: Yes Heart Sounds: Yes: S1, S2 Edema: No Peripheral Pulses: 2+ Left Doralis Pedis, 2+ Right Dorsalis Pedis Integumentary: No: Jaundice Neurological: Yes: Alert, Oriented Current Medications Generic Name Dose Route Start Last Admin Trade Name Freq PRN Reason Stop Dose Admin Acetaminophen 650 mg 08/03/18 13:05 Tylenol - PO Q4H PRN PAIN Albuterol Sulfate 1 amp 07/25/18 17:55 07/28/18 02:11 Ventolin 0.083% Nebulizer Soln - NEB 1 amp Q8H PRN Administration SHORT OF BREATH/WHEEZING Albuterol/Ipratropium 1 amp 07/25/18 20:00 08/05/18 07:53 Duoneb - NEB 1 amp RTID LISA Administration Apixaban 5 mg 07/25/18 22:00 08/05/18 10:57 Eliquis - PO 5 mg BID LISA Administration Atorvastatin Calcium 20 mg 07/25/18 22:00 08/04/18 21:23 Lipitor - PO 20 mg HS LISA Administration Budesonide 1 amp 07/25/18 20:00 08/05/18 07:53 Pulmicort 0.25 Mg Nebulizer - NEB 1 amp RBID LISA Administration Escitalopram Oxalate 10 mg 07/26/18 10:00 08/05/18 10:56 Lexapro - PO 10 mg DAILY LISA Administration Folic Acid 1 mg 07/26/18 10:00 08/05/18 10:56 Folic Acid - PO 1 mg DAILY LISA Administration Furosemide 80 mg 08/03/18 10:00 08/05/18 10:56 Lasix - PO 80 mg DAILY LISA Administration Methylprednisolone Sodium Succinate 40 mg 08/05/18 10:00 08/05/18 10:56 Solu-Medrol - IVPUSH 40 mg DAILY LISA Administration Metoprolol Succinate 25 mg 07/31/18 22:00 08/05/18 10:56 Toprol Xl - PO 25 mg BID LISA Administration Pantoprazole Sodium 20 mg 07/26/18 10:00 08/05/18 10:56 Protonix - PO 20 mg DAILY LISA Administration CBC, BMP 08/05/18 10:00 08/05/18 06:00 Assessment/Plan CXR: no acute process Echo 05/03: nl LVEF. mild RVE, mild-mod RV hypo. L/NEENA. mod MR/TR. RVSP at least 88 mmHg Echo 03/2017: Mild conc lvh. 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 initially 158 here. -cont lasix iv 80 bid -07/29: Creat 0.6 and weight down to 162, continue current lasix regimen -07/30: Creat 0.8, K 3.4, Wt 161. Continue current lasix regimen, replete K -07/31: 161 lbs. -08/01: wt 160 lbs, cont same -08/02-: appears euvolemic. was on lasix 40 qd at home. transitioned 80 iv bid to 80 qd afib: -rapid rates initially, atenolol changed to metoprolol succinate (same dose = 25 bid)--HR controlled. -defer CCB given concern about RV contractility depression (cor pulm pt) -if rapid HRs will add digoxin -cont eliquis for AC, can hold temporarily if needed for hematuria (rodriguez trauma ?) HTN: -bp controlled -cont current meds HPL: -cont home statin regimen
[2018-08-05 13:00] LABS: URINE APPEARANCE CLOUDY; URINE BILIRUBIN NEGATIVE (<2.0 mg/dL); URINE COLOR RED; URINE GLUCOSE (UA) 1+ (NEGATIVE); URINE KETONE NEGATIVE (NEGATIVE); URINE LEUK ESTERASE TRACE (NEGATIVE); URINE NITRITE NEGATIVE (NEGATIVE); URINE PROTEIN 2+ (NEGATIVE); URINE UROBILINOGEN NEGATIVE mg/dL (0.2-1.0)
[2018-08-05 13:09] LABS: EPI CELLS FEW /HPF (FEW)
--- NOTE | 2018-08-05 14:57 | PN ---
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,still dyspneic with min exertion,more congested - Current Medication List Current Medications: Active Medications Acetaminophen (Tylenol -) 650 mg PO Q4H PRN PRN Reason: PAIN Albuterol Sulfate (Ventolin 0.083% Nebulizer Soln -) 1 amp NEB Q8H PRN PRN Reason: SHORT OF BREATH/WHEEZING Last Admin: 07/28/18 02:11 Dose: 1 amp Albuterol/Ipratropium (Duoneb -) 1 amp NEB RTID [facility] Last Admin: 08/05/18 07:53 Dose: 1 amp Apixaban (Eliquis -) 5 mg PO BID [facility] Last Admin: 08/05/18 10:57 Dose: 5 mg Atorvastatin Calcium (Lipitor -) 20 mg PO HS [facility] Last Admin: 08/04/18 21:23 Dose: 20 mg Budesonide (Pulmicort 0.25 Mg Nebulizer -) 1 amp NEB RBID [facility] Last Admin: 08/05/18 07:53 Dose: 1 amp Escitalopram Oxalate (Lexapro -) 10 mg PO DAILY [facility] Last Admin: 08/05/18 10:56 Dose: 10 mg Folic Acid (Folic Acid -) 1 mg PO DAILY [facility] Last Admin: 08/05/18 10:56 Dose: 1 mg Furosemide (Lasix -) 80 mg PO DAILY [facility] Last Admin: 08/05/18 10:56 Dose: 80 mg Methylprednisolone Sodium Succinate (Solu-Medrol -) 40 mg IVPUSH DAILY [facility] Last Admin: 08/05/18 10:56 Dose: 40 mg Metoprolol Succinate (Toprol Xl -) 25 mg PO BID [facility] Last Admin: 08/05/18 10:56 Dose: 25 mg Pantoprazole Sodium (Protonix -) 20 mg PO DAILY [facility] Last Admin: 08/05/18 10:56 Dose: 20 mg - Objective Vital Signs: Vital Signs Temperature 98.4 F 08/05/18 14:00 Pulse Rate 98 H 08/05/18 14:00 Respiratory Rate 20 08/05/18 14:00 Blood Pressure 115/76 08/05/18 14:00 O2 Sat by Pulse Oximetry (%) 97 08/05/18 10:00 Constitutional: Yes: Well Nourished, Calm Eyes: Yes: WNL HENT: Yes: WNL Neck: Yes: WNL Cardiovascular: Yes: Pulse Irregular, S1, S2 Respiratory: Yes: Rhonchi (bilateral wheezes and rhonchi), Wheezes Gastrointestinal: Yes: Normal Bowel Sounds, Soft Extremities: Yes: WNL Edema: No Labs: CBC, BMP 08/05/18 10:00 08/05/18 06:00 Problem List - Problems (1) Acute on chronic respiratory failure with hypoxia and hypercapnia Code(s): J96.21 - ACUTE AND CHRONIC RESPIRATORY FAILURE WITH HYPOXIA; J96.22 - ACUTE AND CHRONIC RESPIRATORY FAILURE WITH HYPERCAPNIA (2) Acute CHF (congestive heart failure) Code(s): I50.9 - HEART FAILURE, UNSPECIFIED (3) Atrial fibrillation Code(s): I48.91 - UNSPECIFIED ATRIAL FIBRILLATION Qualifiers: Atrial fibrillation type: permanent Qualified Code(s): I48.2 - Chronic atrial fibrillation (4) Coronary artery disease Code(s): I25.10 - ATHSCL HEART DISEASE OF [place] CORONARY ARTERY W/O ANG PCTRS Qualifiers: Coronary Disease-Associated Artery/Lesion type: [place] artery [place] vs. transplanted heart: [place] heart Associated angina: without angina Qualified Code(s): I25.10 - Atherosclerotic heart disease of [place] coronary artery without angina pectoris (5) Hypertension Code(s): I10 - ESSENTIAL (PRIMARY) HYPERTENSION Qualifiers: Hypertension type: essential hypertension Qualified Code(s): I10 - Essential (primary) hypertension (6) Pulmonary HTN Code(s): I27.20 - PULMONARY HYPERTENSION, UNSPECIFIED (7) Sarcoidosis Code(s): D86.9 - SARCOIDOSIS, UNSPECIFIED (8) Shortness of breath Code(s): R06.02 - SHORTNESS OF BREATH Assessment/Plan ASSESSMENT AND PLAN: Acute on Chronic Hypoxic and Hypercapneic Respiratory Failure clinically improving Acute on Chronic Diastolic Heart Failure COPD Sarcoidosis Severe Pulmonary HTN Atrial Fibrillation HTN Hyperlipidemia - lasix - monitor urine output, creatinine - daily weights - O2 to keep SpO2>90% - inhaled bronchodilators - rate control - anticoagulation - immookie ALBERT
[2018-08-05] MEDS ORDERED: BUDESONIDE 0.5 MG/2 ML INH SUSP VIAL NEB ONE (19:40)
[2018-08-05] MEDS: ATORVASTATIN CA 20 MG TABLET (FP) PO SCH (21:42)
[2018-08-06] MEDS: ACETAMINOPHEN 325 MG TABLET (FP) PO PRN (00:08)
--- NOTE | 2018-08-06 08:38 | PN ---
Teaching Attending Note Name of Resident: Ramon Sharma ATTENDING PHYSICIAN STATEMENT I saw and evaluated the patient. I reviewed the resident's note and discussed the case with the resident. I agree with the resident's findings and plan as documented. SUBJECTIVE:states she continues to have hematuria but is less than yesterday. states breathing feels grady same. has non productive cough. denies Cp, SOB, fever , chills, N/V/C/D. OBJECTIVE: Last Vital Signs Temp Pulse Resp BP Pulse Ox 98.9 F 84 20 113/62 97 08/06/18 05:43 08/06/18 05:43 08/06/18 05:43 08/06/18 05:43 08/05/18 22:00 Intake & Output 08/03/18 08/04/18 08/05/18 08/06/18 23:59 23:59 23:59 23:59 Intake Total 300 400 860 390 Output Total 1350 Balance -1050 400 860 390 Weight 158 lb 6 oz 160 lb 6 oz 161 lb 7 oz 163 lb 3 oz General NAD lungs coarse breath sounds with diffuse rhonchi. poor inspiratory effort Extremities no pedal edema ASSESSMENT AND PLAN: 81 yo F with PMhx of sarcoidosis diagnosed in 1985, Chronic diastolic HF, severe pulmonary HTN, COPD on 2L home oxygen, AFib on eliquis, HTN, HLD, frequent admissions with CHF/respiratory distress admitted with acute hypercapneic/hypoxic respiratory failure, CHF exaerbation 1. Acute hypercapneic/hypoxic respiratory failure-due to CHF and COPD exacerbation. clinically worsening. medrol increased to q8H. will cont for now. nebs RTC. cont nebs & inhalers. pulmonary and cardio on board 2. Acute diastolic heart failure exacerbation-does not appear volume overloaded however weight is slowly trending up. will d/w cardio about adjusting diuretic. if should re-start torsemide vs increasing lasix as she is well known to them and what has worked in the past. perhaps a candidate for entresto. Not on acei? concern may go into heart failure. monitor electrolytes, daily weights, cardio on board 3. Hematuria- likely traumatic. bleeding is slowly improving. Hgb is stable at this time. UA does not show infection. would cont to monitor. can conisder outpatient urology if persists. 4. Severe pulmonary HTN 5. Contraction alkalosis 6. Hypokalemia- replete 7. Hypomagnesemia- resolved 8. Cor Pulmonale 9. Sarcoidosis 10. COPD on 2L home oxygen 11. Afib on eliquis- rate control. eliquis 12. HTN 13. dyslipidemia 14. DVT ppx- eliquis 15. would benefit from pulmonary rehab
[2018-08-06] MEDS: ALBUTEROL SO4 2.5/IPRATROPIUM 0.5 INH SOL 3 ML VIAL.NEB. NEB SCH ×3 (09:10→19:32)
[2018-08-06] MEDS: BUDESONIDE 0.25 MG/2ML INH SUSP VIAL NEB SCH ×2 (09:10→19:32)
[2018-08-06] MEDS: ESCITALOPRAM OXALATE 20 MG TABLET (FP) PO SCH (09:12)
[2018-08-06] MEDS: PANTOPRAZOLE 20 MG TABLET (FP) PO SCH (09:12)
[2018-08-06] MEDS: FUROSEMIDE 40 MG TABLET (FP) PO SCH (09:12)
[2018-08-06] MEDS: FOLIC ACID 1 MG TABLET (FP) PO SCH (09:12)
[2018-08-06] MEDS: methylPREDNISolone NA SUCC 40 MG/1 ML VIAL IVPUSH SCH ×2 (09:13→17:08)
[2018-08-06] MEDS: APIXABAN 5 MG TABLET PO SCH ×2 (09:13→21:47)
[2018-08-06] MEDS: metoPROLOL SUCCINATE 25 MG TAB.SR.24H (FP) PO SCH ×2 (09:13→21:48)
[2018-08-06] MEDS: FUROSEMIDE 40 MG/4 ML INJECTABLE VIAL IVPUSH SCH ×2 (09:47→18:14)
--- NOTE | 2018-08-06 12:33 | PN ---
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,oob-chair,still congested,+ hematuria - Current Medication List Current Medications: Active Medications Acetaminophen (Tylenol -) 650 mg PO Q4H PRN PRN Reason: PAIN Last Admin: 08/06/18 00:08 Dose: 650 mg Albuterol Sulfate (Ventolin 0.083% Nebulizer Soln -) 1 amp NEB Q8H PRN PRN Reason: SHORT OF BREATH/WHEEZING Last Admin: 07/28/18 02:11 Dose: 1 amp Albuterol/Ipratropium (Duoneb -) 1 amp NEB RTID [facility] Last Admin: 08/06/18 09:10 Dose: 1 amp Apixaban (Eliquis -) 5 mg PO BID [facility] Last Admin: 08/06/18 09:13 Dose: 5 mg Atorvastatin Calcium (Lipitor -) 20 mg PO HS [facility] Last Admin: 08/05/18 21:42 Dose: 20 mg Budesonide (Pulmicort 0.25 Mg Nebulizer -) 1 amp NEB RBID [facility] Last Admin: 08/06/18 09:10 Dose: 1 amp Escitalopram Oxalate (Lexapro -) 10 mg PO DAILY [facility] Last Admin: 08/06/18 09:12 Dose: 10 mg Folic Acid (Folic Acid -) 1 mg PO DAILY [facility] Last Admin: 08/06/18 09:12 Dose: 1 mg Furosemide (Lasix Injection -) 80 mg IVPUSH BID@0600,1400 [facility] Last Admin: 08/06/18 09:47 Dose: 80 mg Methylprednisolone Sodium Succinate (Solu-Medrol -) 40 mg IVPUSH Q8H-IV [facility] Last Admin: 08/06/18 09:13 Dose: 40 mg Metoprolol Succinate (Toprol Xl -) 25 mg PO BID [facility] Last Admin: 08/06/18 09:13 Dose: 25 mg Pantoprazole Sodium (Protonix -) 20 mg PO DAILY [facility] Last Admin: 08/06/18 09:12 Dose: 20 mg - Objective Vital Signs: Vital Signs Temperature 98.2 F 08/06/18 10:00 Pulse Rate 97 H 08/06/18 11:53 Respiratory Rate 20 08/06/18 11:53 Blood Pressure 114/64 08/06/18 11:53 O2 Sat by Pulse Oximetry (%) 97 08/06/18 10:00 Constitutional: Yes: Calm, Thin Eyes: Yes: WNL HENT: Yes: WNL Neck: Yes: WNL Cardiovascular: Yes: Pulse Irregular, S1, S2 Respiratory: Yes: Wheezes (bilateral whhezes and rhonchi) Gastrointestinal: Yes: Normal Bowel Sounds, Soft Extremities: Yes: WNL Edema: No Labs: CBC, BMP Problem List - Problems (1) Acute on chronic respiratory failure with hypoxia and hypercapnia Code(s): J96.21 - ACUTE AND CHRONIC RESPIRATORY FAILURE WITH HYPOXIA; J96.22 - ACUTE AND CHRONIC RESPIRATORY FAILURE WITH HYPERCAPNIA (2) Acute CHF (congestive heart failure) Code(s): I50.9 - HEART FAILURE, UNSPECIFIED (3) Atrial fibrillation Code(s): I48.91 - UNSPECIFIED ATRIAL FIBRILLATION Qualifiers: Atrial fibrillation type: permanent Qualified Code(s): I48.2 - Chronic atrial fibrillation (4) Coronary artery disease Code(s): I25.10 - ATHSCL HEART DISEASE OF [place] CORONARY ARTERY W/O ANG PCTRS Qualifiers: Coronary Disease-Associated Artery/Lesion type: [place] artery [place] vs. transplanted heart: [place] heart Associated angina: without angina Qualified Code(s): I25.10 - Atherosclerotic heart disease of [place] coronary artery without angina pectoris (5) Hypertension Code(s): I10 - ESSENTIAL (PRIMARY) HYPERTENSION Qualifiers: Hypertension type: essential hypertension Qualified Code(s): I10 - Essential (primary) hypertension (6) Pulmonary HTN Code(s): I27.20 - PULMONARY HYPERTENSION, UNSPECIFIED (7) Sarcoidosis Code(s): D86.9 - SARCOIDOSIS, UNSPECIFIED (8) Shortness of breath Code(s): R06.02 - SHORTNESS OF BREATH Assessment/Plan ASSESSMENT AND PLAN: Acute on Chronic Hypoxic and Hypercapneic Respiratory Failure clinically improving Acute on Chronic Diastolic Heart Failure COPD Sarcoidosis Severe Pulmonary HTN Atrial Fibrillation HTN Hyperlipidemia Hematuria - lasix - monitor urine output, creatinine - daily weights - O2 to keep SpO2>90% - inhaled bronchodilators - rate control - anticoagulation - medrol q8 - chest x-ray today DR ALBERT
--- NOTE | 2018-08-06 13:01 | PN ---
Progress Note (short form) - Note Progress Note: s: still sob with cough, no palps dizzy; occ pleuritic cp, worse with cough o: Vital Signs Period Temp Pulse Resp BP Sys/Garza Pulse Ox Last 24 Hr 98.2 F-98.9 F 80-98 20-20 113-128/56-76 97-97 Constitutional: Yes: Well Nourished, No Distress Eyes: Yes: Conjunctiva Clear, EOM Intact HENT: Yes: Atraumatic, Normocephalic Neck: Yes: Supple, Trachea Midline Respiratory: Yes: +wheeze bl, nl eff Gastrointestinal: Yes: Normal Bowel Sounds, Soft Cardiovascular: Yes: Pulse Irregular JVD: Yes Heart Sounds: Yes: S1, S2 Edema: No Peripheral Pulses: 2+ Left Doralis Pedis, 2+ Right Dorsalis Pedis Integumentary: No: Jaundice Neurological: Yes: Alert, Oriented Current Medications Generic Name Dose Route Start Last Admin Trade Name Freq PRN Reason Stop Dose Admin Acetaminophen 650 mg 08/03/18 13:05 08/06/18 00:08 Tylenol - PO 650 mg Q4H PRN Administration PAIN Albuterol Sulfate 1 amp 07/25/18 17:55 07/28/18 02:11 Ventolin 0.083% Nebulizer Soln - NEB 1 amp Q8H PRN Administration SHORT OF BREATH/WHEEZING Albuterol/Ipratropium 1 amp 07/25/18 20:00 08/06/18 09:10 Duoneb - NEB 1 amp RTID LISA Administration Apixaban 5 mg 07/25/18 22:00 08/06/18 09:13 Eliquis - PO 5 mg BID LISA Administration Atorvastatin Calcium 20 mg 07/25/18 22:00 08/05/18 21:42 Lipitor - PO 20 mg HS LISA Administration Budesonide 1 amp 07/25/18 20:00 08/06/18 09:10 Pulmicort 0.25 Mg Nebulizer - NEB 1 amp RBID LISA Administration Escitalopram Oxalate 10 mg 07/26/18 10:00 08/06/18 09:12 Lexapro - PO 10 mg DAILY LISA Administration Folic Acid 1 mg 07/26/18 10:00 08/06/18 09:12 Folic Acid - PO 1 mg DAILY LISA Administration Furosemide 80 mg 08/06/18 09:28 08/06/18 09:47 Lasix Injection - IVPUSH 80 mg BID@0600,1400 LISA Administration Methylprednisolone Sodium Succinate 40 mg 08/06/18 10:00 08/06/18 09:13 Solu-Medrol - IVPUSH 40 mg Q8H-IV LISA Administration Metoprolol Succinate 25 mg 07/31/18 22:00 08/06/18 09:13 Toprol Xl - PO 25 mg BID LISA Administration Pantoprazole Sodium 20 mg 07/26/18 10:00 08/06/18 09:12 Protonix - PO 20 mg DAILY LISA Administration CBC, BMP 08/05/18 10:00 08/05/18 06:00 Assessment/Plan CXR: no acute process Echo 05/03: nl LVEF. mild RVE, mild-mod RV hypo. L/NEENA. mod MR/TR. RVSP at least 88 mmHg Echo 03/2017: Mild conc lvh. 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 initially 158 here. -cont lasix iv 80 bid -07/29: Creat 0.6 and weight down to 162, continue current lasix regimen -07/30: Creat 0.8, K 3.4, Wt 161. Continue current lasix regimen, replete K -07/31: 161 lbs. -08/01: wt 160 lbs, cont same -08/02-: appears euvolemic. was on lasix 40 qd at home. transitioned 80 iv bid to 80 qd -08/06: iv steroids continue and now dose increased. wt up a bit as well. Will change back to lasix iv 80 bid to avoid volume buildup while on continued iv steroids. daily wt and chem7 afib: -rapid rates initially, atenolol changed to metoprolol succinate (same dose = 25 bid)--HR controlled. -defer CCB given concern about RV contractility depression (cor pulm pt) -if rapid HRs will add digoxin -cont eliquis for AC, can hold temporarily if needed for hematuria (rodriguez trauma ?) HTN: -bp controlled -cont current meds HPL: -cont home statin regimen
--- NOTE | 2018-08-06 13:19 | EKG ---
Test Reason : Blood Pressure : / mmHG Vent. Rate : 084 BPM Atrial Rate : 097 BPM P-R Int : 000 ms QRS Dur : 080 ms QT Int : 400 ms P-R-T Axes : 000 -17 004 degrees QTc Int : 472 ms ATRIAL FIBRILLATION WITH PREMATURE VENTRICULAR OR ABERRANTLY CONDUCTED COMPLEXES ABNORMAL ECG WHEN COMPARED WITH ECG OF 29-JUL-2018 13:29, T WAVE INVERSION LESS EVIDENT IN INFERIOR LEADS T WAVE INVERSION NO LONGER EVIDENT IN ANTERIOR LEADS Confirmed by ROGELIO PORTER MD ([id number]) on 08/06/2018 1:18:31 PM Referred By: Jayy INTERIANO Confirmed By:ROGELIO PORTER MD
--- NOTE | 2018-08-06 14:18 | PN ---
Physical Exam: UPDATE: Called by RN for pt complaining of chest pain. Pt reports worsening anterior chest pain today without any worsening shortness of breath, diaphoresis , jaw claudication, or arm claudication. PE unchanged from progress note done earlier with addition of nonreproducible chest pain on palpation. Likely pleuritic pain, however will order EKG for any acute changes. Doubt ACS in this case due to constant coughing. Pt may benefit from cough suppressant, however will need to diurese effusions to ultimately help her cough. --EKG - Afib (known) at 86bpm with no significant changes from 07/29/[address] abnormalities. ECG placed in paper chart SUBJECTIVE: Pt reports hematuria is clearing compared to before. Pt reports breathing feels mostly unchanged compared to yesterday. Pt denies any fever or chills. Pt denies any productivity to her cough at the moment. OBJECTIVE: Vital Signs Period Temp Pulse Resp BP Sys/Garza Pulse Ox Last 24 Hr 98.2 F-98.9 F 80-97 20-20 113-128/56-66 97-97 GENERAL: NAD, alert, awake, laying in bed, fully oriented HEENT: EOMI, ROBERTA, MMM NECK: No JVD LUNGS: Poor inspiratory effort noted with diffuse rales and scattered rhonchi at the bases. Currently 96% on 2L NC. HEART: Irregularly irregular, regular rate, normal S1 and S2 without murmur ABDOMEN: Soft, nontender, nondistended, normoactive bowel sounds, - hepatojugular reflux EXTREMITIES: 2+ pulses, warm, well-perfused. No lower extremity edema. Active Medications Generic Name Dose Route Start Last Admin Trade Name Freq PRN Reason Stop Dose Admin Acetaminophen 650 mg 08/03/18 13:05 08/06/18 00:08 Tylenol - PO 650 mg Q4H PRN Administration PAIN Albuterol Sulfate 1 amp 07/25/18 17:55 07/28/18 02:11 Ventolin 0.083% Nebulizer Soln - NEB 1 amp Q8H PRN Administration SHORT OF BREATH/WHEEZING Albuterol/Ipratropium 1 amp 07/25/18 20:00 08/06/18 13:46 Duoneb - NEB 1 amp RTID LISA Administration Apixaban 5 mg 07/25/18 22:00 08/06/18 09:13 Eliquis - PO 5 mg BID LISA Administration Atorvastatin Calcium 20 mg 07/25/18 22:00 08/05/18 21:42 Lipitor - PO 20 mg HS LISA Administration Budesonide 1 amp 07/25/18 20:00 08/06/18 09:10 Pulmicort 0.25 Mg Nebulizer - NEB 1 amp RBID LISA Administration Escitalopram Oxalate 10 mg 07/26/18 10:00 08/06/18 09:12 Lexapro - PO 10 mg DAILY LISA Administration Folic Acid 1 mg 07/26/18 10:00 08/06/18 09:12 Folic Acid - PO 1 mg DAILY LISA Administration Furosemide 80 mg 08/06/18 09:28 08/06/18 09:47 Lasix Injection - IVPUSH 80 mg BID@0600,1400 LISA Administration Methylprednisolone Sodium Succinate 40 mg 08/06/18 10:00 08/06/18 09:13 Solu-Medrol - IVPUSH 40 mg Q8H-IV LISA Administration Metoprolol Succinate 25 mg 07/31/18 22:00 08/06/18 09:13 Toprol Xl - PO 25 mg BID LISA Administration Pantoprazole Sodium 20 mg 07/26/18 10:00 08/06/18 09:12 Protonix - PO 20 mg DAILY LISA Administration ASSESSMENT/PLAN: 1) Acute hypercapnic hypoxic respiratory distress --2/2 to CHF AND COPD exacerbation --Worsening wheezing today --> increased Medrol to 40 q8h --Duonebs scheduled QID; albuterol PRN inbetween --Pulmonology on board currently -Continue pulmicort inhaler --Baseline 2L NC; maintain SpO2>90% 2) Acute on chronic heart failure --Weight steadily increasing --Cardiology on board --Due to increase in steroids and trending up weights will increase to Lasix 80mg IVP BID --Continue daily weights - 3) Hematuria --Likely 2/2 to trauma from rodriguez --Improving clinically per pt with H/H stable --Monitor --Per cardiology if pt's bleeding worsens can hold eliquis for short time for resolution 4) Atrial fibrillation --Currently rate controlled --Continue Eliquis 5mg BID --Continue Toprol XL 25mg BID 5) Sarcoidosis --Already on steroids for above problems 6) HLD --Continue Lipitor home dose FEN: Fluids: Avoid; active diuresis Electrolyte abnormalities: Monitor K+ with high lasix doses Nutrition: Sodium controlled PPX: DVT - Already on eliquis GI - Protonix 20mg qDaily Dispo: Monitor on M/S; [facility] sent for pulmonary rehab Case discussed with Dr. Davey Sharma, DO - IM PGY-2 Visit type - Emergency Visit Emergency Visit: Yes ED Registration Date: 07/25/18 Care time: The patient presented to the Emergency Department on the above date and was hospitalized for further evaluation of their emergent condition. - New Patient This patient is new to me today: No - Critical Care Critical Care patient: No
[2018-08-06] MEDS: ATORVASTATIN CA 20 MG TABLET (FP) PO SCH (21:48)
[2018-08-07] MEDS: methylPREDNISolone NA SUCC 40 MG/1 ML VIAL IVPUSH SCH ×3 (01:23→18:08)
[2018-08-07] MEDS: FUROSEMIDE 40 MG/4 ML INJECTABLE VIAL IVPUSH SCH ×2 (05:56→15:48)
[2018-08-07 08:34] LABS: ANION GAP 8 MMOL/L (8-16); BLOOD UREA NITROGEN 28 mg/dL (7-18); CALCIUM 7.8 mg/dL (8.5-10.1); CHLORIDE 86 mmol/L (98-107); CO2 44 mmol/L (21-32); CREATININE 0.8 mg/dL (0.55-1.3); GLUCOSE,RANDOM 262 mg/dL (74-106); MAGNESIUM 2.4 mg/dL (1.8-2.4); PHOSPHOROUS 3.6 mg/dL (2.5-4.9); POTASSIUM 3.6 mmol/L (3.5-5.1); SODIUM 138 mmol/L (136-145)
[2018-08-07] MEDS ORDERED: PT OWN MED DRAWER 7, Y5N ONE (08:37)
[2018-08-07] MEDS: BUDESONIDE 0.25 MG/2ML INH SUSP VIAL NEB SCH (09:00)
[2018-08-07] MEDS: ALBUTEROL SO4 2.5/IPRATROPIUM 0.5 INH SOL 3 ML VIAL.NEB. NEB SCH ×3 (09:00→20:45)
[2018-08-07] MEDS: metoPROLOL SUCCINATE 25 MG TAB.SR.24H (FP) PO SCH ×2 (10:35→22:00)
[2018-08-07] MEDS: ESCITALOPRAM OXALATE 20 MG TABLET (FP) PO SCH (10:35)
[2018-08-07] MEDS: FOLIC ACID 1 MG TABLET (FP) PO SCH (10:36)
[2018-08-07] MEDS: APIXABAN 5 MG TABLET PO SCH ×2 (10:36→22:00)
[2018-08-07] MEDS: PANTOPRAZOLE 20 MG TABLET (FP) PO SCH (10:36)
--- NOTE | 2018-08-07 11:07 | PN ---
Progress Note (short form) - Note Progress Note: PULMONARY Breathing slightly improving. Still with nonproductive cough and wheezing. Concerned about hematuria. Vital Signs Period Temp Pulse Resp BP Sys/Garza Pulse Ox Last 24 Hr 97.4 F-98.6 F 81-100 20-20 104-137/63-77 97-97 Gen: NAD at rest Heart: RRR Lung: scattered rhonchi, wheezes Abd: soft, nontender Ext: no edema CBC, BMP 08/05/18 10:00 08/07/18 06:00 Active Medications Acetaminophen (Tylenol -) 650 mg PO Q4H PRN PRN Reason: PAIN Last Admin: 08/06/18 00:08 Dose: 650 mg Albuterol Sulfate (Ventolin 0.083% Nebulizer Soln -) 1 amp NEB Q8H PRN PRN Reason: SHORT OF BREATH/WHEEZING Last Admin: 07/28/18 02:11 Dose: 1 amp Albuterol/Ipratropium (Duoneb -) 1 amp NEB RTID [facility] Last Admin: 08/07/18 09:00 Dose: 1 amp Apixaban (Eliquis -) 5 mg PO BID [facility] Last Admin: 08/07/18 10:36 Dose: 5 mg Atorvastatin Calcium (Lipitor -) 20 mg PO HS [facility] Last Admin: 08/06/18 21:48 Dose: 20 mg Budesonide (Pulmicort 0.25 Mg Nebulizer -) 1 amp NEB RBID [facility] Last Admin: 08/07/18 09:00 Dose: 1 amp Escitalopram Oxalate (Lexapro -) 10 mg PO DAILY [facility] Last Admin: 08/07/18 10:35 Dose: 10 mg Folic Acid (Folic Acid -) 1 mg PO DAILY [facility] Last Admin: 08/07/18 10:36 Dose: 1 mg Furosemide (Lasix Injection -) 80 mg IVPUSH BID@0600,1400 [facility] Last Admin: 08/07/18 05:56 Dose: 80 mg Methylprednisolone Sodium Succinate (Solu-Medrol -) 40 mg IVPUSH Q8H-IV [facility] Last Admin: 08/07/18 10:35 Dose: 40 mg Metoprolol Succinate (Toprol Xl -) 25 mg PO BID [facility] Last Admin: 08/07/18 10:35 Dose: 25 mg Pantoprazole Sodium (Protonix -) 20 mg PO DAILY [facility] Last Admin: 08/07/18 10:36 Dose: 20 mg A/P Acute on Chronic Hypoxic and Hypercapneic Respiratory Failure clinically improving Acute on Chronic Diastolic Heart Failure Acute COPD Exacerbation Sarcoidosis Severe Pulmonary HTN Atrial Fibrillation HTN Hyperlipidemia Hematuria - continue medrol at q8h - inhaled bronchodilators - O2 to keep SpO2>90% - continue lasix - monitor urine output, creatinine - daily weights - rate control - anticoagulation - monitor hematuria
--- NOTE | 2018-08-07 13:34 | PN ---
Teaching Attending Note Name of Resident: Ramon Luna ATTENDING PHYSICIAN STATEMENT I saw and evaluated the patient. I reviewed the resident's note and discussed the case with the resident. I agree with the resident's findings and plan as documented. SUBJECTIVE: staets she feels slightly better today. continues to have pink tinged urine. but no longer bright red blood. + non-productive cough but feels like something is stuck in her chest. denies CP, fever, chills, N/V/C/D OBJECTIVE: Last Vital Signs Temp Pulse Resp BP Pulse Ox 97.8 F 90 20 123/62 97 08/07/18 10:00 08/07/18 10:00 08/07/18 10:00 08/07/18 10:00 08/06/18 20:20 Intake & Output 08/04/18 08/05/18 08/06/18 08/07/18 23:59 23:59 23:59 23:59 Intake Total 027 287 9919 100 Balance 525 247 6514 100 Weight 160 lb 6 oz 161 lb 7 oz 163 lb 3 oz 158 lb 8 oz General NAD lungs coarse breath sounds with diffuse rhonchi. good inspiratory effort Extremities no pedal edema ASSESSMENT AND PLAN: 81 yo F with PMhx of sarcoidosis diagnosed in 1985, Chronic diastolic HF, severe pulmonary HTN, COPD on 2L home oxygen, AFib on eliquis, HTN, HLD, frequent admissions with CHF/respiratory distress admitted with acute hypercapneic/hypoxic respiratory failure, CHF exaerbation 1. Acute hypercapneic/hypoxic respiratory failure-due to CHF and COPD exacerbation. clinically worsening. cont medrol current dosing. start Chest PT to assist with expelling sputum. nebs RTC. cont nebs & inhalers. pulmonary and cardio on board 2. Acute diastolic heart failure exacerbation-switched to lasix 80mg IV BID yesterday with 5 lb weight loss. will cont for now. may need adjustment to heart failure therapy prior to discharge as lasix alone may not be enough. will d/w cardio. monitor electrolytes, daily weights, cardio on board 3. Hematuria- likely traumatic. bleeding is slowly improving. Hgb is stable at this time. although it is likely persisting due to NOAC use will check renal/ bladder u/s to r/o mass. can conisder outpatient urology if persists. 4. Severe pulmonary HTN 5. Contraction alkalosis 6. Hypokalemia- replete 7. Hypomagnesemia- resolved 8. Cor Pulmonale 9. Sarcoidosis 10. COPD on 2L home oxygen 11. Afib on eliquis- rate control. eliquis 12. HTN 13. dyslipidemia 14. DVT ppx- eliquis 15. when medically stable for discharge would benefit from pulmonary rehab
--- NOTE | 2018-08-07 16:17 | PN ---
Progress Note (short form) - Note Progress Note: s: dyspnea improving, occasional cough. no palps dizzy; occ pleuritic cp, worse with cough or changing positions o: Vital Signs Period Temp Pulse Resp BP Sys/Garza Pulse Ox Last 24 Hr 97.8 F-98.6 F 81-98 20-20 114-137/62-77 97-98 Constitutional: Yes: Well Nourished, No Distress Eyes: Yes: Conjunctiva Clear, EOM Intact HENT: Yes: Atraumatic, Normocephalic Neck: Yes: Supple, Trachea Midline Respiratory: Yes: +wheeze bl, nl eff Gastrointestinal: Yes: Normal Bowel Sounds, Soft Cardiovascular: Yes: Pulse Irregular JVD: Yes Heart Sounds: Yes: S1, S2 Edema: No Peripheral Pulses: 2+ Left Doralis Pedis, 2+ Right Dorsalis Pedis Integumentary: No: Jaundice Neurological: Yes: Alert, Oriented Current Medications Acetaminophen (Tylenol -) 650 mg PO Q4H PRN PRN Reason: PAIN Last Admin: 08/06/18 00:08 Dose: 650 mg Albuterol Sulfate (Ventolin 0.083% Nebulizer Soln -) 1 amp NEB Q8H PRN PRN Reason: SHORT OF BREATH/WHEEZING Last Admin: 07/28/18 02:11 Dose: 1 amp Albuterol/Ipratropium (Duoneb -) 1 amp NEB RTID [facility] Last Admin: 08/07/18 15:00 Dose: 1 amp Apixaban (Eliquis -) 5 mg PO BID [facility] Last Admin: 08/07/18 10:36 Dose: 5 mg Atorvastatin Calcium (Lipitor -) 20 mg PO HS [facility] Last Admin: 08/06/18 21:48 Dose: 20 mg Budesonide (Pulmicort 0.25 Mg Nebulizer -) 1 amp NEB RBID [facility] Last Admin: 08/07/18 09:00 Dose: 1 amp Escitalopram Oxalate (Lexapro -) 10 mg PO DAILY [facility] Last Admin: 08/07/18 10:35 Dose: 10 mg Folic Acid (Folic Acid -) 1 mg PO DAILY [facility] Last Admin: 08/07/18 10:36 Dose: 1 mg Furosemide (Lasix Injection -) 80 mg IVPUSH BID@0600,1400 [facility] Last Admin: 08/07/18 15:48 Dose: 80 mg Methylprednisolone Sodium Succinate (Solu-Medrol -) 40 mg IVPUSH Q8H-IV [facility] Last Admin: 08/07/18 10:35 Dose: 40 mg Metoprolol Succinate (Toprol Xl -) 25 mg PO BID [facility] Last Admin: 08/07/18 10:35 Dose: 25 mg Pantoprazole Sodium (Protonix -) 20 mg PO DAILY [facility] Last Admin: 08/07/18 10:36 Dose: 20 mg Assessment/Plan CXR: no acute process Echo 05/03: nl LVEF. mild RVE, mild-mod RV hypo. L/NEENA. mod MR/TR. RVSP at least 88 mmHg Echo 03/2017: Mild conc lvh. 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 initially 158 here. -cont lasix iv 80 bid -07/29: Creat 0.6 and weight down to 162, continue current lasix regimen -07/30: Creat 0.8, K 3.4, Wt 161. Continue current lasix regimen, replete K -07/31: 161 lbs. -08/01: wt 160 lbs, cont same -08/02-: appears euvolemic. was on lasix 40 qd at home. transitioned 80 iv bid to 80 qd -08/06: iv steroids continue and now dose increased. wt up a bit as well, restarted lasix 80 mg IV BID - 08/07: weight down, Cr stable, still on IV steroids. Continue lasix 80 mg IV BID while on IV steroids, monitor daily weight, Cr afib: -rapid rates initially, atenolol changed to metoprolol succinate (same dose = 25 bid)--HR controlled. -defer CCB given concern about RV contractility depression (cor pulm pt) -if rapid HRs will add digoxin -cont eliquis for AC, may hold temporarily if needed for hematuria (rodriguez trauma ?), has been improving HTN: -bp controlled -cont current meds HPL: -cont home statin regimen
--- NOTE | 2018-08-07 18:43 | PN ---
Physical Exam: SUBJECTIVE: Patient seen and examined at bedside. No acute events overnight, still having hematuria, not SOB, no chest pain. Weight decreased by 2gm. Patient is walking to bathroom and back without difficulty OBJECTIVE: Vital Signs Period Temp Pulse Resp BP Sys/Garza Pulse Ox Last 24 Hr 97.8 F-98.4 F 81-98 20-20 114-137/62-74 97-98 GENERAL: A&Ox3, no acute distress EYES: PERRLA, EOMI ENT: Moist mucus membranes NECK: No JVD LUNGS: Lungs have coarse rhonchi b/l improved from yesterday, similar exam to yesterday HEART: RRR, mild systolic murmur noted on exam ABDOMEN: Soft, nontender, BS present MUSCULOSKELETAL: No CVA Tenderness EXTREMITIES: 2+ pulses, no edema. NEUROLOGICAL: Cranial nerves II-XII intact. : rodriguez removed, diaper soaked in bright red blood Laboratory Results - last 24 hr 08/07/18 06:00 Sodium 138 Potassium 3.6 Chloride 86 L Carbon Dioxide 44 H Anion Gap 8 BUN 28 H Creatinine 0.8 Creat Clearance w eGFR > 60 Random Glucose 262 H Calcium 7.8 L Phosphorus 3.6 Magnesium 2.4 Active Medications Generic Name Dose Route Start Last Admin Trade Name Freq PRN Reason Stop Dose Admin Acetaminophen 650 mg 08/03/18 13:05 08/06/18 00:08 Tylenol - PO 650 mg Q4H PRN Administration PAIN Albuterol Sulfate 1 amp 07/25/18 17:55 07/28/18 02:11 Ventolin 0.083% Nebulizer Soln - NEB 1 amp Q8H PRN Administration SHORT OF BREATH/WHEEZING Albuterol/Ipratropium 1 amp 07/25/18 20:00 08/07/18 15:00 Duoneb - NEB 1 amp RTID LISA Administration Apixaban 5 mg 07/25/18 22:00 08/07/18 10:36 Eliquis - PO 5 mg BID LISA Administration Atorvastatin Calcium 20 mg 07/25/18 22:00 08/06/18 21:48 Lipitor - PO 20 mg HS LISA Administration Budesonide 1 amp 07/25/18 20:00 08/07/18 09:00 Pulmicort 0.25 Mg Nebulizer - NEB 1 amp RBID LISA Administration Escitalopram Oxalate 10 mg 07/26/18 10:00 08/07/18 10:35 Lexapro - PO 10 mg DAILY [facility] Administration Folic Acid 1 mg 07/26/18 10:00 08/07/18 10:36 Folic Acid - PO 1 mg DAILY [facility] Administration Furosemide 80 mg 08/06/18 09:28 08/07/18 15:48 Lasix Injection - IVPUSH 80 mg BID@0600,1400 LISA Administration Methylprednisolone Sodium Succinate 40 mg 08/06/18 10:00 08/07/18 18:08 Solu-Medrol - IVPUSH 40 mg Q8H-IV [facility] Administration Metoprolol Succinate 25 mg 07/31/18 22:00 08/07/18 10:35 Toprol Xl - PO 25 mg BID LISA Administration Pantoprazole Sodium 20 mg 07/26/18 10:00 08/07/18 10:36 Protonix - PO 20 mg DAILY [facility] Administration ASSESSMENT/PLAN: 87 yo female with PMH of a-fib (rate controlled, on eliquis), CHF, COPD (on 2L home o2), HTN, pulmonary HTN, presented to the ED with complaint of SOB with a cough productive of clear sputum for 2 days and admitted for the treatment of CHF exacerbation #Acute hypercapnic hypoxic respiratory distress: resolving, patient had a likely exacerbation 2/2 CHF and COPD; improved -continuing medrol q8h -Duonebs scheduled QID; albuterol PRN -Pulmonology consulted -Continue pulmicort inhaler -on 2L nasal cannula -continue daily weights -continue lasix 80 IV BID -continue solumedrol 40 IV q8h -discuss w/ cards about possibility of starting patient on entresto #Hematuria: continuing to occur, likely 2/2 trauma vs acute bladder/kidney pathology -H&H stable -Bladder/kidney US ordered -continue eliquis #Atrial fibrillation: stable -Continue Eliquis 5mg BID -Continue Toprol XL 25mg BID #Sarcoidosis: chronic -Already on steroids for above problems, continue steroids #HLD: stable -Continue Lipitor FEN: Fluids: Avoid; active diuresis Electrolyte abnormalities: Monitor K+ with high lasix doses Nutrition: Sodium controlled PPX: DVT - Already on eliquis GI - Protonix 20mg qDaily Dispo: Monitor on M/S; RENITA sent for pulmonary rehab Visit type - Emergency Visit Emergency Visit: No - New Patient This patient is new to me today: No - Critical Care Critical Care patient: No
[2018-08-07] MEDS: ATORVASTATIN CA 20 MG TABLET (FP) PO SCH (22:00)
[2018-08-08] MEDS ORDERED: BUDESONIDE 0.5 MG/2 ML INH SUSP VIAL NEB ONE ×3 (00:56→20:32)
[2018-08-08] MEDS: BUDESONIDE 0.25 MG/2ML INH SUSP VIAL NEB SCH ×3 (01:00→20:47)
[2018-08-08] MEDS: methylPREDNISolone NA SUCC 40 MG/1 ML VIAL IVPUSH SCH ×3 (01:16→22:06)
[2018-08-08] MEDS: FUROSEMIDE 40 MG/4 ML INJECTABLE VIAL IVPUSH SCH ×2 (06:05→14:39)
[2018-08-08] MEDS: ALBUTEROL SO4 2.5/IPRATROPIUM 0.5 INH SOL 3 ML VIAL.NEB. NEB SCH ×3 (08:48→20:47)
[2018-08-08 09:08] LABS: HEMATOCRIT 38.8 % (32.4-45.2); HEMOGLOBIN 11.7 GM/dL (10.7-15.3); MCH 20.7 pg (25.7-33.7); MEAN CELL VOLUME 69.1 fl (80-96); MEAN PLT VOLUME 9.6 fl (7.5-11.1); PLATELET COUNT 187 K/MM3 (134-434); RBC 5.62 M/mm3 (3.60-5.2); RDW 18.3 % (11.6-15.6); WHITE BLOOD COUNT 19.3 K/mm3 (4.0-10.0)
[2018-08-08] MEDS ORDERED: PT OWN MED DRAWER 7, Y5N ONE ×3 (10:04→22:37)
[2018-08-08] MEDS: FOLIC ACID 1 MG TABLET (FP) PO SCH (10:05)
[2018-08-08] MEDS: APIXABAN 5 MG TABLET PO SCH ×2 (10:06→22:06)
[2018-08-08] MEDS: metoPROLOL SUCCINATE 25 MG TAB.SR.24H (FP) PO SCH ×2 (10:06→22:06)
[2018-08-08] MEDS: PANTOPRAZOLE 20 MG TABLET (FP) PO SCH (10:06)
[2018-08-08] MEDS: ESCITALOPRAM OXALATE 20 MG TABLET (FP) PO SCH (10:06)
--- NOTE | 2018-08-08 10:25 | PN ---
Progress Note (short form) - Note Progress Note: PULMONARY Breathing slightly improving. Still with nonproductive cough and wheezing. Still with hematuria. Vital Signs Period Temp Pulse Resp BP Sys/Garza Pulse Ox Last 24 Hr 97.7 F-98.3 F 89-102 20-20 116-132/63-76 96-96 Gen: NAD at rest Heart: RRR Lung: scattered rhonchi, wheezes Abd: soft, nontender Ext: no edema CBC, BMP 08/08/18 08:53 08/07/18 06:00 Active Medications Acetaminophen (Tylenol -) 650 mg PO Q4H PRN PRN Reason: PAIN Last Admin: 08/06/18 00:08 Dose: 650 mg Albuterol Sulfate (Ventolin 0.083% Nebulizer Soln -) 1 amp NEB Q8H PRN PRN Reason: SHORT OF BREATH/WHEEZING Last Admin: 07/28/18 02:11 Dose: 1 amp Albuterol/Ipratropium (Duoneb -) 1 amp NEB RTID [facility] Last Admin: 08/08/18 08:48 Dose: 1 amp Apixaban (Eliquis -) 5 mg PO BID [facility] Last Admin: 08/08/18 10:06 Dose: 5 mg Atorvastatin Calcium (Lipitor -) 20 mg PO HS [facility] Last Admin: 08/07/18 22:00 Dose: 20 mg Budesonide (Pulmicort 0.25 Mg Nebulizer -) 1 amp NEB RBID [facility] Last Admin: 08/08/18 08:50 Dose: 1 amp Escitalopram Oxalate (Lexapro -) 10 mg PO DAILY [facility] Last Admin: 08/08/18 10:06 Dose: 10 mg Folic Acid (Folic Acid -) 1 mg PO DAILY [facility] Last Admin: 08/08/18 10:05 Dose: 1 mg Furosemide (Lasix Injection -) 80 mg IVPUSH BID@0600,1400 [facility] Last Admin: 08/08/18 06:05 Dose: 80 mg Methylprednisolone Sodium Succinate (Solu-Medrol -) 40 mg IVPUSH Q8H-IV [facility] Last Admin: 08/08/18 10:05 Dose: 40 mg Metoprolol Succinate (Toprol Xl -) 25 mg PO BID [facility] Last Admin: 08/08/18 10:06 Dose: 25 mg Pantoprazole Sodium (Protonix -) 20 mg PO DAILY [facility] Last Admin: 08/08/18 10:06 Dose: 20 mg A/P Acute on Chronic Hypoxic and Hypercapneic Respiratory Failure clinically improving Acute on Chronic Diastolic Heart Failure Acute COPD Exacerbation Sarcoidosis Severe Pulmonary HTN Atrial Fibrillation HTN Hyperlipidemia Hematuria - monitor hematuria, consider urology evaluation - decrease medrol to q12h - inhaled bronchodilators - O2 to keep SpO2>90% - continue lasix - monitor urine output, creatinine - daily weights - rate control - anticoagulation
[2018-08-08 11:43] LABS: ANION GAP 10 MMOL/L (8-16); BLOOD UREA NITROGEN 26 mg/dL (7-18); CALCIUM 7.9 mg/dL (8.5-10.1); CHLORIDE 82 mmol/L (98-107); CO2 44 mmol/L (21-32); CREATININE 0.9 mg/dL (0.55-1.3); POTASSIUM 3.2 mmol/L (3.5-5.1); SODIUM 136 mmol/L (136-145)
[2018-08-08 11:46] LABS: GLUCOSE,RANDOM 411 mg/dL (74-106)
--- NOTE | 2018-08-08 11:54 | PN ---
Physical Exam: SUBJECTIVE: Patient seen and examined. Nop acute overnight events. Pt is not feeling short of breath, denies chest pain. Continues to have hematuria per pt. OBJECTIVE: Vital Signs Period Temp Pulse Resp BP Sys/Garza Pulse Ox Last 24 Hr 97.7 F-98.3 F 89-102 20-20 116-132/63-76 96-96 GENERAL: A&Ox3, no acute distress EYES: PERRLA, EOMI ENT: MMM NECK: No JVD LUNGS: Scattered rhonchi, no rales or wheezing appreciated. Inspiratory effort good. HEART: RRR, no MRG S1S2 ABDOMEN: Soft, nontender, BS present MUSCULOSKELETAL: No CVA Tenderness EXTREMITIES: No CCE NEUROLOGICAL: Cranial nerves II-XII intact. : Christian hematuria. Laboratory Results - last 24 hr 08/08/18 08/08/18 08:53 08:53 WBC 19.3 H RBC 5.62 H Hgb 11.7 Hct 38.8 MCV 69.1 L MCH 20.7 L MCHC 30.0 L RDW 18.3 H Plt Count 187 MPV 9.6 Sodium 136 Potassium 3.2 L Chloride 82 L Carbon Dioxide 44 H Anion Gap 10 BUN 26 H Creatinine 0.9 Creat Clearance w eGFR 59.94 Random Glucose 411 H* Calcium 7.9 L Active Medications Generic Name Dose Route Start Last Admin Trade Name Freq PRN Reason Stop Dose Admin Acetaminophen 650 mg 08/03/18 13:05 08/06/18 00:08 Tylenol - PO 650 mg Q4H PRN Administration PAIN Albuterol Sulfate 1 amp 07/25/18 17:55 07/28/18 02:11 Ventolin 0.083% Nebulizer Soln - NEB 1 amp Q8H PRN Administration SHORT OF BREATH/WHEEZING Albuterol/Ipratropium 1 amp 07/25/18 20:00 08/08/18 08:48 Duoneb - NEB 1 amp RTID LISA Administration Apixaban 5 mg 07/25/18 22:00 08/08/18 10:06 Eliquis - PO 5 mg BID [facility] Administration Atorvastatin Calcium 20 mg 07/25/18 22:00 08/07/18 22:00 Lipitor - PO 20 mg HS [facility]ISA Administration Budesonide 1 amp 07/25/18 20:00 08/08/18 08:50 Pulmicort 0.25 Mg Nebulizer - NEB 1 amp RBID [facility] Administration Escitalopram Oxalate 10 mg 07/26/18 10:00 08/08/18 10:06 Lexapro - PO 10 mg DAILY [facility] Administration Folic Acid 1 mg 07/26/18 10:00 08/08/18 10:05 Folic Acid - PO 1 mg DAILY [facility] Administration Furosemide 80 mg 08/06/18 09:28 08/08/18 06:05 Lasix Injection - IVPUSH 80 mg BID@0600,1400 [facility] Administration Methylprednisolone Sodium Succinate 40 mg 08/08/18 22:00 Solu-Medrol - IVPUSH Q12H LISA Metoprolol Succinate 25 mg 07/31/18 22:00 08/08/18 10:06 Toprol Xl - PO 25 mg BID [facility] Administration Pantoprazole Sodium 20 mg 07/26/18 10:00 08/08/18 10:06 Protonix - PO 20 mg DAILY [facility] Administration ASSESSMENT/PLAN: 87 yo female with PMH of a-fib (rate controlled, on eliquis), CHF, COPD (on 2L home o2), HTN, pulmonary HTN, presented to the ED with complaint of SOB with a cough productive of clear sputum for 2 days and admitted for the treatment of CHF exacerbation #Acute hypercapnic hypoxic respiratory distress: resolving, patient had a likely exacerbation 2/2 CHF and COPD -Decreased steroids to Medrol Q12 -Duonebs scheduled QID; albuterol PRN -Pulmonology consulted -Continue pulmicort inhaler -on 2L nasal cannula -continue daily weights -continue lasix 80 IV BID -continue solumedrol 40 IV q8h -discuss w/ cards about possibility of starting patient on entresto #Hematuria: continuing to occur, likely 2/2 trauma vs acute bladder/kidney pathology -H&H stable -Bladder/kidney US ordered--> 08/08/18: R Bethel. Partially distended urinary bladder that is at least partially filled with debris. Cannot rule out blood clots. Cannot adequately evaluate its posterior wall. Bilateral ureteral jets were not visualized. Further evaluation of the urinary bladder is needed. -KUB ordered to r/o possible kidney stone causing R Bethel. -continue eliquis #Hypokalemia -Kdur 40 meq for potassium of 3.2 #Atrial fibrillation: stable -Continue Eliquis 5mg BID -Continue Toprol XL 25mg BID #Sarcoidosis: chronic -Already on steroids for above problems, continue steroids. Tapered today 08/08 #HLD: stable -Continue Lipitor FEN: Fluids: Avoid; active diuresis Electrolyte abnormalities: Monitor K+ with high lasix doses Nutrition: Sodium controlled PPX: DVT - Already on eliquis GI - Protonix 20mg qDaily Dispo: Monitor on M/S Visit type - Emergency Visit Emergency Visit: No - New Patient This patient is new to me today: Yes Date on this admission: 08/08/18 - Critical Care Critical Care patient: No - Discharge Referral Referred to [facility] No
--- NOTE | 2018-08-08 13:24 | PN ---
Teaching Attending Note Name of Resident: Marco A Colon ATTENDING PHYSICIAN STATEMENT I saw and evaluated the patient. I reviewed the resident's note and discussed the case with the resident. I agree with the resident's findings and plan as documented. SUBJECTIVE:fustrated that hematuria persisting however is light pink. states her breathing is good today. no longer having sticking sensation in her chest. Denies CP, SOB, fever, chills, N/V/C/D OBJECTIVE: Last Vital Signs Temp Pulse Resp BP Pulse Ox 98.0 F 92 H 20 118/63 97 08/08/18 10:00 08/08/18 10:00 08/08/18 10:00 08/08/18 10:00 08/08/18 10:00 Intake & Output 08/05/18 08/06/18 08/07/18 08/08/18 23:59 23:59 23:59 23:59 Intake Total 860 1170 800 250 Balance 860 1170 800 250 Weight 161 lb 7 oz 163 lb 3 oz 158 lb 8 oz 156 lb 1.6 oz General NAD lungs scattered rhonchi. minimal wheezing. good inspiratory effort abdomen soft NT/ND no flank pain Extremities no pedal edema ASSESSMENT AND PLAN: 81 yo F with PMhx of sarcoidosis diagnosed in 1985, Chronic diastolic HF, severe pulmonary HTN, COPD on 2L home oxygen, AFib on eliquis, HTN, HLD, frequent admissions with CHF/respiratory distress admitted with acute hypercapneic/hypoxic respiratory failure, CHF exaerbation 1. Acute hypercapneic/hypoxic respiratory failure-due to CHF and COPD exacerbation. clinically improved today. will reduce medrol to 40mg BID. chest pt, Nebds and inhalers. pulmonary and cardio on board 2. Acute diastolic heart failure exacerbation-responding well to IV lasix. no signs of volume overload. will maintain on lasix IV until of IV steroids due to development of volume overload. will liekly require escalation of therapy on discharge. Monitor electrolytes, daily weights, cardio on board 3. Hematuria- likely traumatic. bleeding has persisted however pink now and as per RN only 1 episode today. Renal/bladder u/s showing mild R hydro. no pain. will obtain KUB to evaluate for nephrolithasis. Hgb has been stable. although this is likely traumatic that is persisting due to NOAC. offered to have urologist evaluate however she declined. will wait at this time. re-consider urology if bleeding worsens or Hgb trends down. 4. Severe pulmonary HTN 5. Contraction alkalosis 6. Hypokalemia- replete 7. Hypomagnesemia- resolved 8. Cor Pulmonale 9. Sarcoidosis 10. COPD on 2L home oxygen 11. Afib on eliquis- rate control. eliquis 12. HTN 13. dyslipidemia 14. DVT ppx- eliquis 15. when medically stable for discharge would benefit from pulmonary rehab
[2018-08-08] MEDS ORDERED: POTASSIUM CHLORIDE TABS 20 MEQ TABLET.ER (FP) PO ONE (19:24)
[2018-08-08] MEDS: ATORVASTATIN CA 20 MG TABLET (FP) PO SCH (22:06)
[2018-08-09] MEDS: ACETAMINOPHEN 325 MG TABLET (FP) PO PRN (00:36)
[2018-08-09] MEDS: FUROSEMIDE 40 MG/4 ML INJECTABLE VIAL IVPUSH SCH ×2 (05:51→14:33)
[2018-08-09] MEDS: ALBUTEROL SO4 2.5/IPRATROPIUM 0.5 INH SOL 3 ML VIAL.NEB. NEB SCH ×3 (08:00→20:20)
[2018-08-09] MEDS: BUDESONIDE 0.25 MG/2ML INH SUSP VIAL NEB SCH ×2 (08:00→20:20)
[2018-08-09 09:23] LABS: HEMATOCRIT 38.2 % (32.4-45.2); HEMOGLOBIN 11.2 GM/dL (10.7-15.3); MCH 20.2 pg (25.7-33.7); MCHC 29.3 g/dl (32.0-36.0); MEAN PLT VOLUME 9.5 fl (7.5-11.1); PLATELET COUNT 181 K/MM3 (134-434); RBC 5.54 M/mm3 (3.60-5.2); RDW 18.8 % (11.6-15.6); WHITE BLOOD COUNT 20.3 K/mm3 (4.0-10.0)
[2018-08-09] MEDS: methylPREDNISolone NA SUCC 40 MG/1 ML VIAL IVPUSH SCH ×2 (09:45→22:09)
[2018-08-09] MEDS: metoPROLOL SUCCINATE 25 MG TAB.SR.24H (FP) PO SCH ×2 (09:45→22:09)
[2018-08-09] MEDS: ESCITALOPRAM OXALATE 20 MG TABLET (FP) PO SCH (09:45)
[2018-08-09] MEDS: FOLIC ACID 1 MG TABLET (FP) PO SCH (09:46)
[2018-08-09] MEDS: PANTOPRAZOLE 20 MG TABLET (FP) PO SCH (09:46)
[2018-08-09] MEDS: APIXABAN 5 MG TABLET PO SCH ×2 (09:46→22:09)
[2018-08-09 10:05] LABS: ANION GAP 9 MMOL/L (8-16); BLOOD UREA NITROGEN 26 mg/dL (7-18); CALCIUM 7.9 mg/dL (8.5-10.1); CHLORIDE 80 mmol/L (98-107); CO2 43 mmol/L (21-32); CREATININE 0.9 mg/dL (0.55-1.3); MAGNESIUM 2.1 mg/dL (1.8-2.4); POTASSIUM 3.1 mmol/L (3.5-5.1); SODIUM 133 mmol/L (136-145)
[2018-08-09 10:14] LABS: GLUCOSE,RANDOM 398 mg/dL (74-106)
[2018-08-09] MEDS ORDERED: POTASSIUM CHLORIDE TABS 20 MEQ TABLET.ER (FP) PO ONE (11:45)
--- NOTE | 2018-08-09 14:37 | PN ---
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 - Current Medication List Current Medications: Active Medications Acetaminophen (Tylenol -) 650 mg PO Q4H PRN PRN Reason: PAIN Last Admin: 08/09/18 00:36 Dose: 650 mg Albuterol Sulfate (Ventolin 0.083% Nebulizer Soln -) 1 amp NEB Q8H PRN PRN Reason: SHORT OF BREATH/WHEEZING Last Admin: 07/28/18 02:11 Dose: 1 amp Albuterol/Ipratropium (Duoneb -) 1 amp NEB RTID [facility] Last Admin: 08/09/18 08:00 Dose: 1 amp Apixaban (Eliquis -) 5 mg PO BID [facility] Last Admin: 08/09/18 09:46 Dose: 5 mg Atorvastatin Calcium (Lipitor -) 20 mg PO HS [facility] Last Admin: 08/08/18 22:06 Dose: 20 mg Budesonide (Pulmicort 0.25 Mg Nebulizer -) 1 amp NEB RBID [facility] Last Admin: 08/09/18 08:00 Dose: 1 amp Escitalopram Oxalate (Lexapro -) 10 mg PO DAILY [facility] Last Admin: 08/09/18 09:45 Dose: 10 mg Folic Acid (Folic Acid -) 1 mg PO DAILY [facility] Last Admin: 08/09/18 09:46 Dose: 1 mg Furosemide (Lasix Injection -) 80 mg IVPUSH BID@0600,1400 [facility] Last Admin: 08/09/18 05:51 Dose: 80 mg Methylprednisolone Sodium Succinate (Solu-Medrol -) 40 mg IVPUSH Q12H [facility] Last Admin: 08/09/18 09:45 Dose: 40 mg Metoprolol Succinate (Toprol Xl -) 25 mg PO BID [facility] Last Admin: 08/09/18 09:45 Dose: 25 mg Pantoprazole Sodium (Protonix -) 20 mg PO DAILY [facility] Last Admin: 08/09/18 09:46 Dose: 20 mg - Objective Vital Signs: Vital Signs Temperature 97.7 F 08/09/18 13:39 Pulse Rate 95 H 08/09/18 13:39 Respiratory Rate 20 08/09/18 13:39 Blood Pressure 117/53 L 08/09/18 13:39 O2 Sat by Pulse Oximetry (%) 95 08/09/18 10:00 Constitutional: Yes: Well Nourished, Calm Eyes: Yes: WNL HENT: Yes: WNL Neck: Yes: Supple Cardiovascular: Yes: Pulse Irregular, S1, S2 Respiratory: Yes: Rhonchi (scattered bilateral wheezes and rhonchi), Wheezes Gastrointestinal: Yes: Normal Bowel Sounds, Soft Extremities: Yes: WNL Edema: No Labs: CBC, BMP 08/09/18 09:05 08/09/18 09:05 Problem List - Problems (1) Acute on chronic respiratory failure with hypoxia and hypercapnia Code(s): J96.21 - ACUTE AND CHRONIC RESPIRATORY FAILURE WITH HYPOXIA; J96.22 - ACUTE AND CHRONIC RESPIRATORY FAILURE WITH HYPERCAPNIA (2) Acute CHF (congestive heart failure) Code(s): I50.9 - HEART FAILURE, UNSPECIFIED (3) Atrial fibrillation Code(s): I48.91 - UNSPECIFIED ATRIAL FIBRILLATION Qualifiers: Atrial fibrillation type: permanent Qualified Code(s): I48.2 - Chronic atrial fibrillation (4) Coronary artery disease Code(s): I25.10 - ATHSCL HEART DISEASE OF [place] CORONARY ARTERY W/O ANG PCTRS Qualifiers: Coronary Disease-Associated Artery/Lesion type: [place] artery [place] vs. transplanted heart: [place] heart Associated angina: without angina Qualified Code(s): I25.10 - Atherosclerotic heart disease of [place] coronary artery without angina pectoris (5) Hypertension Code(s): I10 - ESSENTIAL (PRIMARY) HYPERTENSION Qualifiers: Hypertension type: essential hypertension Qualified Code(s): I10 - Essential (primary) hypertension (6) Pulmonary HTN Code(s): I27.20 - PULMONARY HYPERTENSION, UNSPECIFIED (7) Sarcoidosis Code(s): D86.9 - SARCOIDOSIS, UNSPECIFIED (8) Shortness of breath Code(s): R06.02 - SHORTNESS OF BREATH Assessment/Plan ASSESSMENT AND PLAN: Acute on Chronic Hypoxic and Hypercapneic Respiratory Failure clinically improving Acute on Chronic Diastolic Heart Failure COPD Sarcoidosis Severe Pulmonary HTN Atrial Fibrillation HTN Hyperlipidemia Hematuria - lasix - monitor urine output, creatinine - daily weights - O2 to keep SpO2>90% - inhaled bronchodilators - rate control - anticoagulation - medrol same dose DR ALBERT
--- NOTE | 2018-08-09 16:52 | PN ---
Teaching Attending Note Name of Resident: Marco A Colon ATTENDING PHYSICIAN STATEMENT I saw and evaluated the patient. I reviewed the resident's note and discussed the case with the resident. I agree with the resident's findings and plan as documented. SUBJECTIVE:continues to have hematuria. no improvement since yesterday. deneis Cp, SOB, fever, chills, N/V/c/D did have kidney stones in the past that required intervention. but has had no flank pain since hospitalization OBJECTIVE: Last Vital Signs Temp Pulse Resp BP Pulse Ox 97.7 F 95 H 20 117/53 L 95 08/09/18 13:39 08/09/18 13:39 08/09/18 13:39 08/09/18 13:39 08/09/18 10:00 Intake & Output 08/06/18 08/07/18 08/08/18 08/09/18 23:59 23:59 23:59 23:59 Intake Total 3496 368 5456 500 Balance 1083 262 3762 500 Weight 163 lb 3 oz 158 lb 8 oz 156 lb 1.6 oz 152 lb General NAD lungs scattered rhonchi. minimal wheezing. good inspiratory effort abdomen soft NT/ND no flank pain Extremities no pedal edema ASSESSMENT AND PLAN: 81 yo F with PMhx of sarcoidosis diagnosed in 1985, Chronic diastolic HF, severe pulmonary HTN, COPD on 2L home oxygen, AFib on eliquis, HTN, HLD, frequent admissions with CHF/respiratory distress admitted with acute hypercapneic/hypoxic respiratory failure, CHF exaerbation 1. Acute hypercapneic/hypoxic respiratory failure-due to CHF and COPD exacerbation. clinically improved. would cont medrol same dosing. consider switching to po in next 24-48H. chest pt, Nebs and inhalers. pulmonary and cardio on board 2. Acute diastolic heart failure exacerbation-on LAsix IV. will switch to po once off IV steroids. would be stable on lasix 80mg po BID once transitioned. Monitor electrolytes, daily weights, cardio on board 3. Hematuria- likely traumatic. bleeding persists. AXR negative for stone. consider CT scan to further look for stones. Consult urology for furhter workup. Hgb has remained stable. will cont eliquis. 4. Severe pulmonary HTN 5. Contraction alkalosis 6. Hypokalemia- replete 7. Hypomagnesemia- resolved 8. Cor Pulmonale 9. Sarcoidosis 10. COPD on 2L home oxygen 11. Afib on eliquis- rate control. eliquis 12. HTN 13. dyslipidemia 14. DVT ppx- eliquis 15. when medically stable for discharge would benefit from pulmonary rehab
--- NOTE | 2018-08-09 16:54 | PN ---
Progress Note (short form) - Note Progress Note: s: still sob with cough, better, no palps dizzy cp o: Vital Signs Period Temp Pulse Resp BP Sys/Garza Pulse Ox Last 24 Hr 97.7 F-98.7 F 85-99 20-20 114-146/53-76 93-97 Constitutional: Yes: Well Nourished, No Distress Eyes: Yes: Conjunctiva Clear Respiratory: Yes: +wheeze bl, nl eff Gastrointestinal: Yes: Normal Bowel Sounds, Soft Cardiovascular: Yes: Pulse Irregular Heart Sounds: Yes: S1, S2 Edema: No Peripheral Pulses: 2+ Left Doralis Pedis, 2+ Right Dorsalis Pedis Integumentary: No: Jaundice Neurological: Yes: Alert, Oriented Current Medications Generic Name Dose Route Start Last Admin Trade Name Freq PRN Reason Stop Dose Admin Acetaminophen 650 mg 08/03/18 13:05 08/09/18 00:36 Tylenol - PO 650 mg Q4H PRN Administration PAIN Albuterol Sulfate 1 amp 07/25/18 17:55 07/28/18 02:11 Ventolin 0.083% Nebulizer Soln - NEB 1 amp Q8H PRN Administration SHORT OF BREATH/WHEEZING Albuterol/Ipratropium 1 amp 07/25/18 20:00 08/09/18 14:10 Duoneb - NEB 1 amp RTID LISA Administration Apixaban 5 mg 07/25/18 22:00 08/09/18 09:46 Eliquis - PO 5 mg BID LISA Administration Atorvastatin Calcium 20 mg 07/25/18 22:00 08/08/18 22:06 Lipitor - PO 20 mg HS LISA Administration Budesonide 1 amp 07/25/18 20:00 08/09/18 08:00 Pulmicort 0.25 Mg Nebulizer - NEB 1 amp RBID LISA Administration Escitalopram Oxalate 10 mg 07/26/18 10:00 08/09/18 09:45 Lexapro - PO 10 mg DAILY LISA Administration Folic Acid 1 mg 07/26/18 10:00 08/09/18 09:46 Folic Acid - PO 1 mg DAILY LISA Administration Furosemide 80 mg 08/06/18 09:28 08/09/18 14:33 Lasix Injection - IVPUSH 80 mg BID@0600,1400 LISA Administration Methylprednisolone Sodium Succinate 40 mg 08/08/18 22:00 08/09/18 09:45 Solu-Medrol - IVPUSH 40 mg Q12H LISA Administration Metoprolol Succinate 25 mg 07/31/18 22:00 08/09/18 09:45 Toprol Xl - PO 25 mg BID LISA Administration Pantoprazole Sodium 20 mg 07/26/18 10:00 08/09/18 09:46 Protonix - PO 20 mg DAILY LISA Administration 08/09/18 09:05 08/09/18 09:05 Assessment/Plan CXR: no acute process Echo 05/03: nl LVEF. mild RVE, mild-mod RV hypo. L/NEENA. mod MR/TR. RVSP at least 88 mmHg Echo 03/2017: Mild conc lvh. 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 initially 158 here. -cont lasix iv 80 bid -07/29: Creat 0.6 and weight down to 162, continue current lasix regimen -07/30: Creat 0.8, K 3.4, Wt 161. Continue current lasix regimen, replete K -07/31: 161 lbs. -08/01: wt 160 lbs, cont same -08/02-: appears euvolemic. was on lasix 40 qd at home. transitioned 80 iv bid to 80 qd -08/06: iv steroids continue and now dose increased. wt up a bit as well, restarted lasix 80 mg IV BID - 08/07-: weight down, Cr stable, still on IV steroids. Continue lasix 80 mg IV BID while on IV steroids, monitor daily weight, chem7. Change to po lasix 80 qd when on po steroids. afib: -rapid rates initially, atenolol changed to metoprolol succinate (same dose = 25 bid)--HR controlled. -defer CCB given concern about RV contractility depression (cor pulm pt) -if rapid HRs will add digoxin -cont eliquis for AC, may hold temporarily if needed for hematuria (rodriguez trauma ?), has been improving HTN: -bp controlled -cont current meds HPL: -cont home statin regimen
--- NOTE | 2018-08-09 19:59 | PN ---
Physical Exam: SUBJECTIVE: Patient seen and examined at bedside. No acute events overnight. Endorses chest pain when coughing. OBJECTIVE: Vital Signs Period Temp Pulse Resp BP Sys/Garza Pulse Ox Last 24 Hr 97.7 F-98.7 F 85-104 20-20 114-134/53-76 93-97 GENERAL: AAOx3, NAD HEAD: NC/AT EYES: PERRLA EOMI ENT: MMM membranes. NECK: Trachea midline, full range of motion, supple. LUNGS: LEFT upper lung field crackles HEART: RRR No MRG S1S2 ABDOMEN: Soft NT ND No HSM EXTREMITIES: No CCE NEUROLOGICAL: Cranial nerves II through XII grossly intact. PSYCH: Normal mood, normal affect. SKIN: Warm, dry, normal turgor, no rashes or lesions noted Laboratory Results - last 24 hr 08/09/18 08/09/18 09:05 09:05 WBC 20.3 H RBC 5.54 H Hgb 11.2 Hct 38.2 MCV 69.0 L MCH 20.2 L MCHC 29.3 L RDW 18.8 H Plt Count 181 MPV 9.5 Sodium 133 L Potassium 3.1 L Chloride 80 L Carbon Dioxide 43 H Anion Gap 9 BUN 26 H Creatinine 0.9 Creat Clearance w eGFR 59.94 Random Glucose 398 H* Calcium 7.9 L Magnesium 2.1 Active Medications Generic Name Dose Route Start Last Admin Trade Name Freq PRN Reason Stop Dose Admin Acetaminophen 650 mg 08/03/18 13:05 08/09/18 00:36 Tylenol - PO 650 mg Q4H PRN Administration PAIN Albuterol Sulfate 1 amp 07/25/18 17:55 07/28/18 02:11 Ventolin 0.083% Nebulizer Soln - NEB 1 amp Q8H PRN Administration SHORT OF BREATH/WHEEZING Albuterol/Ipratropium 1 amp 07/25/18 20:00 08/09/18 14:10 Duoneb - NEB 1 amp RTID LISA Administration Apixaban 5 mg 07/25/18 22:00 08/09/18 09:46 Eliquis - PO 5 mg BID LISA Administration Atorvastatin Calcium 20 mg 07/25/18 22:00 08/08/18 22:06 Lipitor - PO 20 mg HS LISA Administration Budesonide 1 amp 07/25/18 20:00 08/09/18 08:00 Pulmicort 0.25 Mg Nebulizer - NEB 1 amp RBID LISA Administration Escitalopram Oxalate 10 mg 07/26/18 10:00 08/09/18 09:45 Lexapro - PO 10 mg DAILY LISA Administration Folic Acid 1 mg 07/26/18 10:00 08/09/18 09:46 Folic Acid - PO 1 mg DAILY LISA Administration Furosemide 80 mg 08/06/18 09:28 08/09/18 14:33 Lasix Injection - IVPUSH 80 mg BID@0600,1400 LISA Administration Methylprednisolone Sodium Succinate 40 mg 08/08/18 22:00 08/09/18 09:45 Solu-Medrol - IVPUSH 40 mg Q12H LISA Administration Metoprolol Succinate 25 mg 07/31/18 22:00 08/09/18 09:45 Toprol Xl - PO 25 mg BID LISA Administration Pantoprazole Sodium 20 mg 07/26/18 10:00 08/09/18 09:46 Protonix - PO 20 mg DAILY LISA Administration ASSESSMENT/PLAN: 87 yo female with PMH of a-fib (rate controlled, on eliquis), CHF, COPD (on 2L home o2), HTN, pulmonary HTN, presented to the ED with complaint of SOB with a cough productive of clear sputum for 2 days and admitted for the treatment of CHF exacerbation #Acute hypercapnic hypoxic respiratory distress: resolving, patient had a likely exacerbation 2/2 CHF and COPD -Decreased steroids to Medrol Q12 -Duonebs scheduled QID; albuterol PRN -Pulmonology consulted -Continue pulmicort inhaler -on 2L nasal cannula -continue daily weights -continue lasix 80 IV BID -continue solumedrol 40 IV q8h -discuss w/ cards about possibility of starting patient on entresto #Hematuria: continuing to occur, likely 2/2 trauma vs acute bladder/kidney pathology -H&H 11.2/38.2. Yesterday 11.7/38.8. -Bladder/kidney US ordered--> 08/08/18: R [place]. Partially distended urinary bladder that is at least partially filled with debris. Cannot rule out blood clots. Cannot adequately evaluate its posterior wall. Bilateral ureteral jets were not visualized. Further evaluation of the urinary bladder is needed. -KUB ordered to r/o possible kidney stone causing R [place]. Urology Consulted today 08/09/18 -continue eliquis #Hypokalemia -Kdur 40 meq for potassium of 3.1 #Atrial fibrillation: stable -Continue Eliquis 5mg BID -Continue Toprol XL 25mg BID #Sarcoidosis: chronic -Already on steroids for above problems, continue steroids. Tapered today 08/08 #HLD: stable -Continue Lipitor FEN: Fluids: Avoid; active diuresis Electrolyte abnormalities: Monitor K+ with high lasix doses Nutrition: Sodium controlled PPX: DVT - Already on eliquis GI - Protonix 20mg qDaily Dispo: Monitor on M/S Visit type - Emergency Visit Emergency Visit: Yes ED Registration Date: 07/25/18 Care time: The patient presented to the Emergency Department on the above date and was hospitalized for further evaluation of their emergent condition. - New Patient This patient is new to me today: No - Critical Care Critical Care patient: No - Discharge Referral Referred to [facility] Med P.C.: No
--- NOTE | 2018-08-09 21:17 | PN ---
Progress Note (short form) - Note Progress Note: UROLOGY NOTE. pt. seen and examined and consult dictated.
[2018-08-09] MEDS: ATORVASTATIN CA 20 MG TABLET (FP) PO SCH (22:09)
[2018-08-10] MEDS: FUROSEMIDE 40 MG/4 ML INJECTABLE VIAL IVPUSH SCH ×2 (06:16→15:41)
[2018-08-10] MEDS ORDERED: PT OWN MED DRAWER 7, Y5N ONE ×2 (07:35→10:40)
[2018-08-10] MEDS: BUDESONIDE 0.25 MG/2ML INH SUSP VIAL NEB SCH ×2 (07:39→20:54)
[2018-08-10] MEDS: ALBUTEROL SO4 2.5/IPRATROPIUM 0.5 INH SOL 3 ML VIAL.NEB. NEB SCH ×3 (07:39→20:54)
[2018-08-10 07:46] LABS: HEMATOCRIT 36.6 % (32.4-45.2); MCH 20.6 pg (25.7-33.7); MCHC 30.1 g/dl (32.0-36.0); MEAN CELL VOLUME 68.5 fl (80-96); MEAN PLT VOLUME 9.7 fl (7.5-11.1); PLATELET COUNT 180 K/MM3 (134-434); RBC 5.34 M/mm3 (3.60-5.2); RDW 18.2 % (11.6-15.6); WHITE BLOOD COUNT 25.1 K/mm3 (4.0-10.0)
[2018-08-10 08:31] LABS: BLOOD UREA NITROGEN 30 mg/dL (7-18); CALCIUM 8.4 mg/dL (8.5-10.1); CHLORIDE 80 mmol/L (98-107); MAGNESIUM 2.6 mg/dL (1.8-2.4); POTASSIUM 3.6 mmol/L (3.5-5.1); SODIUM 135 mmol/L (136-145)
--- NOTE | 2018-08-10 08:56 | PN ---
Progress Note (short form) - Note Progress Note: +UROLOGY NOTE : Patient with history of gross hematuria. Renal and bladder ultrasound reveal right hydronephrosis and multiple filling defects in the bladder. must Rule out bladder tumor. will recommend cystoscopy, possible TURBT. possible right retrograde pyelogram, possible JJ stent when medically OK. Suggest to hold anticoagulation.
[2018-08-10 09:00] LABS: GLUCOSE,RANDOM 383 mg/dL (74-106)
[2018-08-10] MEDS: FOLIC ACID 1 MG TABLET (FP) PO SCH (10:43)
[2018-08-10] MEDS: APIXABAN 5 MG TABLET PO SCH (10:43)
[2018-08-10] MEDS: methylPREDNISolone NA SUCC 40 MG/1 ML VIAL IVPUSH SCH ×2 (10:44→21:54)
[2018-08-10] MEDS: PANTOPRAZOLE 20 MG TABLET (FP) PO SCH (10:44)
[2018-08-10] MEDS: ESCITALOPRAM OXALATE 20 MG TABLET (FP) PO SCH (10:44)
[2018-08-10] MEDS: metoPROLOL SUCCINATE 25 MG TAB.SR.24H (FP) PO SCH ×2 (10:45→21:57)
--- NOTE | 2018-08-10 10:50 | PN ---
Progress Note (short form) - Note Progress Note: PULMONARY Breathing continues to improve. Less cough and wheezing. Still with hematuria. Vital Signs Period Temp Pulse Resp BP Sys/Garza Pulse Ox Last 24 Hr 97.7 F-98.6 F 88-110 17-20 105-152/53-88 96-99 Gen: NAD at rest Heart: RRR Lung: scattered rhonchi, wheezes Abd: soft, nontender Ext: no edema CBC, BMP 08/10/18 07:35 08/10/18 07:35 Active Medications Acetaminophen (Tylenol -) 650 mg PO Q4H PRN PRN Reason: PAIN Last Admin: 08/09/18 00:36 Dose: 650 mg Albuterol Sulfate (Ventolin 0.083% Nebulizer Soln -) 1 amp NEB Q8H PRN PRN Reason: SHORT OF BREATH/WHEEZING Last Admin: 07/28/18 02:11 Dose: 1 amp Albuterol/Ipratropium (Duoneb -) 1 amp NEB RTID [facility] Last Admin: 08/10/18 07:39 Dose: 1 amp Apixaban (Eliquis -) 5 mg PO BID [facility] Last Admin: 08/10/18 10:43 Dose: Not Given Atorvastatin Calcium (Lipitor -) 20 mg PO HS [facility] Last Admin: 08/09/18 22:09 Dose: 20 mg Budesonide (Pulmicort 0.25 Mg Nebulizer -) 1 amp NEB RBID [facility] Last Admin: 08/10/18 07:39 Dose: Not Given Escitalopram Oxalate (Lexapro -) 10 mg PO DAILY [facility] Last Admin: 08/10/18 10:44 Dose: 10 mg Folic Acid (Folic Acid -) 1 mg PO DAILY [facility] Last Admin: 08/10/18 10:43 Dose: 1 mg Furosemide (Lasix Injection -) 80 mg IVPUSH BID@0600,1400 [facility] Last Admin: 08/10/18 06:16 Dose: 80 mg Methylprednisolone Sodium Succinate (Solu-Medrol -) 40 mg IVPUSH Q12H [facility] Last Admin: 08/10/18 10:44 Dose: 40 mg Metoprolol Succinate (Toprol Xl -) 25 mg PO BID [facility] Last Admin: 08/10/18 10:45 Dose: 25 mg Pantoprazole Sodium (Protonix -) 20 mg PO DAILY [facility] Last Admin: 08/10/18 10:44 Dose: 20 mg A/P Acute on Chronic Hypoxic and Hypercapneic Respiratory Failure clinically improving Acute on Chronic Diastolic Heart Failure Acute COPD Exacerbation Sarcoidosis Severe Pulmonary HTN Atrial Fibrillation HTN Hyperlipidemia Hematuria - for cystoscopy - continue medrol q12h until after cystoscopy then can change to PO prednisone 40mg daily - inhaled bronchodilators - O2 to keep SpO2>90% - continue lasix - monitor urine output, creatinine - daily weights - rate control - anticoagulation
--- NOTE | 2018-08-10 11:58 | PN ---
Teaching Attending Note Name of Resident: Marco A Cooln ATTENDING PHYSICIAN STATEMENT I saw and evaluated the patient. I reviewed the resident's note and discussed the case with the resident. I agree with the resident's findings and plan as documented. SUBJECTIVE:continues to have hematuria. denies CP, SOB, fever, chills, N/V/C/D OBJECTIVE: Last Vital Signs Temp Pulse Resp BP Pulse Ox 98.1 F 105 H 17 105/58 L 99 08/10/18 09:02 08/10/18 09:02 08/10/18 09:02 08/10/18 09:02 08/09/18 22:00 General NAD lungs scattered rhonchi. minimal wheezing. good inspiratory effort abdomen soft NT/ND no flank pain Extremities no pedal edema ASSESSMENT AND PLAN: 81 yo F with PMhx of sarcoidosis diagnosed in 1985, Chronic diastolic HF, severe pulmonary HTN, COPD on 2L home oxygen, AFib on eliquis, HTN, HLD, frequent admissions with CHF/respiratory distress admitted with acute hypercapneic/hypoxic respiratory failure, CHF exaerbation 1. Acute hypercapneic/hypoxic respiratory failure-due to CHF and COPD exacerbation. clinically improved. would cont medrol same dosing as going for procedure tomorrow. can switch to po after the procedure with long taper. likely decrease by 5mg every 2-3days. chest pt, Nebs and inhalers. pulmonary and cardio on board 2. Acute diastolic heart failure exacerbation-on LAsix IV. will switch to po once off IV steroids. would be stable on lasix 80mg po BID once transitioned. Monitor electrolytes, daily weights, cardio on board 3. Hematuria- likely traumatic. bleeding persists. NPO tonight for cysto tomorrow to evaluate. will hold NOAC for pending procedure. 4. Severe pulmonary HTN 5. Contraction alkalosis 6. Hypokalemia- replete 7. Hypomagnesemia- resolved 8. Cor Pulmonale 9. Sarcoidosis 10. COPD on 2L home oxygen 11. Afib on eliquis- rate control. hold NOAC for procedure 12. HTN 13. dyslipidemia 14. DVT ppx- eliquis 15. when medically stable for discharge would benefit from pulmonary rehab
[2018-08-10] MEDS ORDERED: INSULIN (NOVOLOG) ASPART 100 UNITS/ML 10ML VIAL ONE (12:00)
[2018-08-10] MEDS: INSULIN SLIDING SCALE (NOVOLOG) 1 VIAL SQ SCH ×3 (12:03→22:09)
[2018-08-10 12:06] LABS: ANION GAP 8 MMOL/L (8-16); CO2 47 mmol/L (21-32)
--- NOTE | 2018-08-10 14:15 | PN ---
Physical Exam: SUBJECTIVE: Patient seen and examined at bedside. Pt c/o chest tightness this am. No acute events overnight. OBJECTIVE: Vital Signs Period Temp Pulse Resp BP Sys/Garza Pulse Ox Last 24 Hr 97.9 F-98.6 F 88-110 17-20 105-152/58-88 96-99 GENERAL: AAOx3, NAD HEAD: NC/AT. EYES: [place]. EOMI, PERRLA. No scleral icterus, conjunctiva clear ENT: MMM NECK: No accessory muscle use LUNGS: Expiratory wheezing HEART:Irregularly irregular ABDOMEN: Soft, ND, NT, No HSM EXTREMITIES: No CCE NEUROLOGICAL: CN 2-12 intact Laboratory Results - last 24 hr 08/09/18 08/10/18 08/10/18 22:20 07:35 07:35 WBC 25.1 H RBC 5.34 H Hgb 11.0 Hct 36.6 MCV 68.5 L MCH 20.6 L MCHC 30.1 L RDW 18.2 H Plt Count 180 MPV 9.7 Sodium 135 L Potassium 3.6 Chloride 80 L Carbon Dioxide 47 H Anion Gap 8 BUN 30 H Creatinine 1.0 Creat Clearance w eGFR 52.33 POC Glucometer 449 Random Glucose 383 H* Calcium 8.4 L Magnesium 2.6 H Active Medications Generic Name Dose Route Start Last Admin Trade Name Freq PRN Reason Stop Dose Admin Acetaminophen 650 mg 08/03/18 13:05 08/09/18 00:36 Tylenol - PO 650 mg Q4H PRN Administration PAIN Albuterol Sulfate 1 amp 07/25/18 17:55 07/28/18 02:11 Ventolin 0.083% Nebulizer Soln - NEB 1 amp Q8H PRN Administration SHORT OF BREATH/WHEEZING Albuterol/Ipratropium 1 amp 07/25/18 20:00 08/10/18 13:42 Duoneb - NEB 1 amp RTID LISA Administration Apixaban 5 mg 07/25/18 22:00 08/10/18 10:43 Eliquis - PO Not Given BID LISA Atorvastatin Calcium 20 mg 07/25/18 22:00 08/09/18 22:09 Lipitor - PO 20 mg HS LISA Administration Budesonide 1 amp 07/25/18 20:00 08/10/18 07:39 Pulmicort 0.25 Mg Nebulizer - NEB Not Given RBID LISA Escitalopram Oxalate 10 mg 07/26/18 10:00 08/10/18 10:44 Lexapro - PO 10 mg DAILY LISA Administration Folic Acid 1 mg 07/26/18 10:00 08/10/18 10:43 Folic Acid - PO 1 mg DAILY LISA Administration Furosemide 80 mg 08/06/18 09:28 08/10/18 06:16 Lasix Injection - IVPUSH 80 mg BID@0600,1400 LISA Administration Insulin Aspart 1 vial 08/10/18 11:00 08/10/18 12:03 Novolog Vial Sliding Scale - SQ 6 units ACHS LISA Administration Protocol Methylprednisolone Sodium Succinate 40 mg 08/08/18 22:00 08/10/18 10:44 Solu-Medrol - IVPUSH 40 mg Q12H LISA Administration Metoprolol Succinate 25 mg 07/31/18 22:00 08/10/18 10:45 Toprol Xl - PO 25 mg BID LISA Administration Pantoprazole Sodium 20 mg 07/26/18 10:00 08/10/18 10:44 Protonix - PO 20 mg DAILY LISA Administration ASSESSMENT/PLAN: 87 yo female with PMH of a-fib (rate controlled, on eliquis), CHF, COPD (on 2L home o2), HTN, pulmonary HTN, presented to the ED with complaint of SOB with a cough productive of clear sputum for 2 days and admitted for the treatment of CHF exacerbation #Acute hypercapnic hypoxic respiratory distress: resolving, patient had a likely exacerbation 2/2 CHF and COPD Medrol Q12 will change to PO 40 QD after cysto tomorrow -Duonebs scheduled QID; albuterol PRN -Pulmonology consulted -Continue pulmicort inhaler -on 2L nasal cannula -continue daily weights -continue lasix 80 IV BID #Hematuria: continuing to occur, likely 2/2 trauma vs acute bladder/kidney pathology -H&H 11.0/36.6. -Bladder/kidney US ordered--> 08/08/18: R [place]. Partially distended urinary bladder that is at least partially filled with debris. Cannot rule out blood clots. Cannot adequately evaluate its posterior wall. Bilateral ureteral jets were not visualized. Further evaluation of the urinary bladder is needed. -KUB no signs of obstructing stones. Urology on board. Plan for cystoscopy, possible TURBT, jj stent insertion, right retrograde pyelogram tomorrow. -Will hold Eliquis for procedure tomorrow. #Hypokalemia -Kdur 40 meq for potassium of 3.1 yesterday. K 3.6 today 08/10/18. #Atrial fibrillation: stable -Continue Eliquis 5mg BID -Continue Toprol XL 25mg BID #Sarcoidosis: chronic -Already on steroids for above problems, continue steroids. #HLD: stable -Continue Lipitor FEN: Fluids: Avoid; active diuresis Monitor electrolytes Sodium Controlled Diet PPX: DVT - Eliquis on hold GI - Protonix 20mg qDaily Dispo: Monitor on M/S Visit type - Emergency Visit Emergency Visit: Yes ED Registration Date: 07/25/18 Care time: The patient presented to the Emergency Department on the above date and was hospitalized for further evaluation of their emergent condition. - New Patient This patient is new to me today: No - Critical Care Critical Care patient: No - Discharge Referral Referred to [facility] Med P.C.: No
--- NOTE | 2018-08-10 16:56 | PN ---
Progress Note (short form) - Note Progress Note: s: sob improving still has hematuria, no palps dizzy cp o: Vital Signs Period Temp Pulse Resp BP Sys/Garza Pulse Ox Last 24 Hr 97.8 F-98.6 F 88-110 17-20 105-152/58-88 96-99 Constitutional: Yes: Well Nourished, No Distress Eyes: Yes: Conjunctiva Clear Respiratory: Yes: scattered wheezes bl, nl eff Gastrointestinal: Yes: Normal Bowel Sounds, Soft Cardiovascular: Yes: Pulse Irregular Heart Sounds: Yes: S1, S2 Edema: No Peripheral Pulses: 2+ Left Doralis Pedis, 2+ Right Dorsalis Pedis Integumentary: No: Jaundice Neurological: Yes: Alert, Oriented Current Medications Acetaminophen (Tylenol -) 650 mg PO Q4H PRN PRN Reason: PAIN Last Admin: 08/09/18 00:36 Dose: 650 mg Albuterol Sulfate (Ventolin 0.083% Nebulizer Soln -) 1 amp NEB Q8H PRN PRN Reason: SHORT OF BREATH/WHEEZING Last Admin: 07/28/18 02:11 Dose: 1 amp Albuterol/Ipratropium (Duoneb -) 1 amp NEB RTID [facility] Last Admin: 08/10/18 13:42 Dose: 1 amp Apixaban (Eliquis -) 5 mg PO BID [facility] Last Admin: 08/10/18 10:43 Dose: Not Given Atorvastatin Calcium (Lipitor -) 20 mg PO HS [facility] Last Admin: 08/09/18 22:09 Dose: 20 mg Budesonide (Pulmicort 0.25 Mg Nebulizer -) 1 amp NEB RBID [facility] Last Admin: 08/10/18 07:39 Dose: Not Given Escitalopram Oxalate (Lexapro -) 10 mg PO DAILY [facility] Last Admin: 08/10/18 10:44 Dose: 10 mg Folic Acid (Folic Acid -) 1 mg PO DAILY [facility] Last Admin: 08/10/18 10:43 Dose: 1 mg Furosemide (Lasix Injection -) 80 mg IVPUSH BID@0600,1400 [facility] Last Admin: 08/10/18 15:41 Dose: 80 mg Insulin Aspart (Novolog Vial Sliding Scale -) 1 vial SQ ACHS [facility]; Protocol Last Admin: 08/10/18 16:53 Dose: 6 units Methylprednisolone Sodium Succinate (Solu-Medrol -) 40 mg IVPUSH Q12H [facility] Last Admin: 08/10/18 10:44 Dose: 40 mg Metoprolol Succinate (Toprol Xl -) 25 mg PO BID [facility] Last Admin: 08/10/18 10:45 Dose: 25 mg Pantoprazole Sodium (Protonix -) 20 mg PO DAILY [facility] Last Admin: 08/10/18 10:44 Dose: 20 mg Assessment/Plan CXR: no acute process Echo 05/03: nl LVEF. mild RVE, mild-mod RV hypo. L/NEENA. mod MR/TR. RVSP at least 88 mmHg Echo 03/2017: Mild conc lvh. 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 initially 158 here. -cont lasix iv 80 bid -07/29: Creat 0.6 and weight down to 162, continue current lasix regimen -07/30: Creat 0.8, K 3.4, Wt 161. Continue current lasix regimen, replete K -07/31: 161 lbs. -08/01: wt 160 lbs, cont same -08/02-: appears euvolemic. was on lasix 40 qd at home. transitioned 80 iv bid to 80 qd -08/06: iv steroids continue and now dose increased. wt up a bit as well, restarted lasix 80 mg IV BID - 08/07-: weight continues to decrease, sob improving, Cr stable, still on IV steroids. Continue lasix 80 mg IV BID while on IV steroids, monitor daily weight, chem7. Change to po lasix 80 daily when on po steroids. afib: -rapid rates initially, atenolol changed to metoprolol succinate (same dose = 25 bid)--HR controlled. -defer CCB given concern about RV contractility depression (cor pulm pt) -if rapid HRs will add digoxin -holding eliquis for rodriguez trauma, has planned cystoscopy HTN: -bp controlled -cont current meds HPL: -cont home statin regimen hematuria, planned cystoscopy - urology following - hold eliquis for two days prior to procedure, currently on hold - stable from cardiac perspective, no further cardiac workup needed prior to cystoscopy
[2018-08-10] MEDS: ATORVASTATIN CA 20 MG TABLET (FP) PO SCH (21:56)
[2018-08-11] MEDS: INSULIN SLIDING SCALE (NOVOLOG) 1 VIAL SQ SCH ×3 (06:36→21:52)
[2018-08-11] MEDS: FUROSEMIDE 40 MG/4 ML INJECTABLE VIAL IVPUSH SCH ×2 (06:36→16:29)
[2018-08-11 07:09] LABS: HEMATOCRIT 32.9 % (32.4-45.2); MCH 20.5 pg (25.7-33.7); MCHC 30.4 g/dl (32.0-36.0); MEAN CELL VOLUME 67.6 fl (80-96); MEAN PLT VOLUME 10.3 fl (7.5-11.1); PLATELET COUNT 170 K/MM3 (134-434); RBC 4.87 M/mm3 (3.60-5.2); RDW 17.7 % (11.6-15.6)
[2018-08-11] MEDS: BUDESONIDE 0.25 MG/2ML INH SUSP VIAL NEB SCH (07:34)
[2018-08-11] MEDS: ALBUTEROL SO4 2.5/IPRATROPIUM 0.5 INH SOL 3 ML VIAL.NEB. NEB SCH ×3 (07:34→20:50)
[2018-08-11 07:40] LABS: ANION GAP 7 MMOL/L (8-16); BLOOD UREA NITROGEN 30 mg/dL (7-18); CALCIUM 8.2 mg/dL (8.5-10.1); CHLORIDE 83 mmol/L (98-107); CO2 > 45 mmol/L (21-32); CREATININE 0.8 mg/dL (0.55-1.3); GLUCOSE,RANDOM 239 mg/dL (74-106); MAGNESIUM 2.4 mg/dL (1.8-2.4); PHOSPHOROUS 3.6 mg/dL (2.5-4.9); POTASSIUM 3.5 mmol/L (3.5-5.1); SODIUM 135 mmol/L (136-145)
[2018-08-11 07:45] LABS: WHITE BLOOD COUNT 30.7 K/mm3 (4.0-10.0)
[2018-08-11] MEDS: PANTOPRAZOLE 20 MG TABLET (FP) PO SCH (09:24)
[2018-08-11] MEDS: FOLIC ACID 1 MG TABLET (FP) PO SCH (09:24)
[2018-08-11] MEDS: ESCITALOPRAM OXALATE 20 MG TABLET (FP) PO SCH (09:24)
[2018-08-11] MEDS: metoPROLOL SUCCINATE 25 MG TAB.SR.24H (FP) PO SCH ×2 (09:25→21:05)
[2018-08-11] MEDS: methylPREDNISolone NA SUCC 40 MG/1 ML VIAL IVPUSH SCH (09:25)
[2018-08-11] MEDS: ACETAMINOPHEN 325 MG TABLET (FP) PO PRN (09:26)
--- NOTE | 2018-08-11 12:20 | PN ---
Progress Note (short form) - Note Progress Note: PULMONARY VSS/AFEBRILE NPO/OOB TO CHAIR ANICTERIC DISTANT BREATH SOUNDS S1S2 BS+ NO EDEMA Active Medications REVIEWED LABS/NOTES/IMAGES REVIEWED Acute on Chronic Hypoxic and Hypercapneic Respiratory Failure clinically improving Acute on Chronic Diastolic Heart Failure Acute COPD Exacerbation Sarcoidosis Severe Pulmonary HTN Atrial Fibrillation HTN Hyperlipidemia Hematuria - for cystoscopy today at 1 pm - continue medrol q12h until after cystoscopy then can change to PO prednisone 40mg daily - inhaled bronchodilators - O2 to keep SpO2>90% - continue lasix - monitor urine output, creatinine - daily weights - rate control - anticoagulation Linda PATEL MD
[2018-08-11] MEDS ORDERED: PROPOFOL 20 ML ONE ×2 (13:29→14:45)
[2018-08-11] MEDS ORDERED: ceFAZolin SODIUM 1 GM VIAL ONE (14:42)
[2018-08-11] MEDS ORDERED: ceFAZolin SODIUM 1 GM VIAL IVPB ONE (14:42)
[2018-08-11] MEDS ORDERED: ePHEDrine SULFATE 50 MG/1 ML AMPULE ONE (15:04)
[2018-08-11] MEDS ORDERED: VASOPRESSIN 20 UNITS/ML VIAL IV ONE ×2 (15:12→15:13)
[2018-08-11] MEDS ORDERED: EPINEPHrine 1:10,000 (P-F SYR) 1 MG/10 ML DISP.SYRIN ONE (15:23)
--- NOTE | 2018-08-11 15:34 | OP ---
Operative Note - Note: Operative Date: 08/11/18 Pre-Operative Diagnosis: gross hematuria,clot retention, rt. hydronephrosis Operation: cysto, clot evacuation, bladder bx. and bladder fulgeration Findings: large amount of organized clot, hemorrhagic cystitis bladder lesion Post-Operative Diagnosis: Same as Pre-op Surgeon: Nataliia Colon Anesthesia: General Specimens Removed: bladder clots, bladder tissue Estimated Blood Loss (mls): 50 Drains & Tubes with Location: 22f 30cc 3way rodriguez with cbi Drains, Volume Out (mls): 0 Blood Volume Replaced (mls): 0 Fluid Volume Replaced (mls): 0 Operative Report Dictated: Yes
--- NOTE | 2018-08-11 16:16 | OP ---
DATE OF OPERATION: DATE OF DICTATION: 08/11/2018 PREOPERATIVE DIAGNOSIS: The patient is an 87-year-old female with gross total painless hematuria, clot retention, and right hydroureteronephrosis. POSTOPERATIVE DIAGNOSIS: Hemorrhagic cystitis, clots, retention, and bladder lesion. OPERATIVE PROCEDURE: Cystourethroscopy, evacuation of clots, fulguration of bleeders, bladder biopsy, bladder fulguration, and placement of a 3-way 30-mL 24-[place] Aguayo catheter with continuous bladder irrigation. ANESTHESIA: Neuroleptic. DESCRIPTION OF PROCEDURE: Under above-stated anesthesia, the patient was prepped and draped in the usual sterile manner. She was placed in the dorsal lithotomy position. 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 Continuous flow scope was introduced under direct vision. Then 300 mL of grossly bloody urine was drained. Cystoscopy revealed a large amount of organized clot in the bladder. Therefore, an Ellik evacuator was used, and 200 mL of organized clot was irrigated outside from the bladder. Inspection of the bladder revealed a generalized hyperemia with a hemorrhagic cystitis throughout. The trigone revealed bullous edema, and ureteral orifices were unable to be visualized. An exophilic bleeding lesion on the right lateral wall of the bladder was biopsied. The area was fulgurated. Due to patient's critical condition and low blood pressure, attempt at placing a stent was cancelled. The patient was repositioned in the supine position. A 22-[place] 3-way 30-mL Aguayo catheter was placed. This was connected to continuous bladder irrigation. The patient was still in the recovery room with anesthesia. Donnell [id number]
[2018-08-11] MEDS ORDERED: ONDANSETRON 4 MG/2 ML VIAL IVPUSH PRN (16:43)
[2018-08-11 17:17] LABS: ARTERIAL BLD GAS O2 SATURATION 99.6 % (90-98.9); ARTERIAL BLOOD GAS BASE EXCESS 10.9 meq/l (-2-2)
[2018-08-11 17:21] LABS: ARTERIAL BLOOD GAS PCO2 62.2 mmHg (35-45)
[2018-08-11] MEDS ORDERED: IPRATROPIUM BROMIDE NEB PRN (18:12)
[2018-08-11] MEDS ORDERED: IPRATROPIUM BR 0.02% 0.5 MG/2.5 ML VIAL.NEB. NEB PRN (18:17)
--- NOTE | 2018-08-11 18:17 | PN ---
Teaching Attending Note Name of Resident: Marco A Colon ATTENDING PHYSICIAN STATEMENT I saw and evaluated the patient. I reviewed the resident's note and discussed the case with the resident. I agree with the resident's findings and plan as documented. SUBJECTIVE: had an episodes of hypotension this morning , still has growth hematuria with clots, h/dash stable most likely in the setting of aggressive diuresis. she underwent cycsto today, found to have hemorhagic cystitis with clots, s/p CBI in place at this time. operation complicated with episode of hypotension, patient was placed on pressoers briefly. now being transfered to ICU for close monitoring. OBJECTIVE: no distress Last Vital Signs Temp Pulse Resp BP Pulse Ox 98.1 F 94 H 19 141/75 99 08/11/18 22:00 08/12/18 00:00 08/12/18 00:00 08/12/18 00:00 08/11/18 22:00 cvs:s1s2 +mild wheezing Current Medications Generic Name Dose Route Start Last Admin Trade Name Freq PRN Reason Stop Dose Admin Albuterol Sulfate 1 amp 08/11/18 19:31 08/12/18 01:24 Ventolin 0.083% Nebulizer Soln - NEB 1 amp Q6H PRN Administration SHORT OF BREATH/WHEEZING Albuterol/Ipratropium 1 amp 08/11/18 20:00 08/11/18 20:50 Duoneb - NEB 1 amp RQID LISA Administration Budesonide/Formoterol Fumarate 2 puff 08/11/18 22:00 08/11/18 21:05 Symbicort 160/4.5mcg - IH Not Given BID LISA Piperacillin Sod/Tazobactam 50 mls @ 100 mls/hr 08/12/18 02:00 Sod 2.25 gm/ Dextrose IVPB Q8H-IV LISA Protocol Piperacillin Sod/Tazobactam 50 mls @ 100 mls/hr 08/11/18 20:30 08/11/18 21:53 Sod 2.25 gm/ Dextrose IVPB 08/12/18 02:29 100 mls/hr Q8H-IV LISA Administration Protocol Sodium Chloride 1,000 mls @ 42 mls/hr 08/11/18 22:15 08/12/18 01:13 Normal Saline - IV 42 mls/hr ASDIR LISA Administration Insulin Aspart 1 vial 08/11/18 22:00 08/11/18 21:52 Novolog Vial Sliding Scale - SQ 10 units ACHS LISA Administration Protocol Methylprednisolone Sodium Succinate 40 mg 08/11/18 22:00 08/11/18 21:53 Solu-Medrol - IVPUSH 40 mg BID LISA Administration Metoprolol Succinate 25 mg 08/11/18 22:00 08/11/18 21:05 Toprol Xl - PO Not Given BID [facility] Ondansetron HCl 4 mg 08/11/18 16:43 Zofran Injection IVPUSH Q6H PRN NAUSEA AND/OR VOMITING Pantoprazole Sodium 20 mg 08/12/18 10:00 Protonix - PO DAILY [facility] Polyethylene Glycol 17 gm 08/11/18 22:00 08/11/18 21:05 Miralax (For Daily Use) - PO Not Given BID [facility] Senna 2 tab 08/11/18 22:00 08/11/18 21:05 Senna - PO Not Given [facility] Home Medications Medication Instructions Recorded Apixaban [Eliquis] 5 mg PO BID 04/16/18 Atorvastatin Ca [Lipitor] 20 mg PO HS 04/16/18 Escitalopram Oxalate [Lexapro -] 10 mg PO DAILY 04/16/18 Folic Acid 1 mg PO DAILY 04/16/18 Ipratropium [place] [Atrovent Hfa] 1 neb NEB Q4H PRN 04/17/18 Albuterol Sulfate [Proventil HFA 1 - 2 inh PO QID PRN 06/20/18 Inhaler -] Budesonide/Formeterol Fumarate 1 inh PO BID 06/20/18 [SYMBICORT 160/4.5mcg -] Furosemide [Lasix] 40 mg PO DAILY 06/20/18 Lorazepam 0.5 mg PO Q8H PRN 06/20/18 Omeprazole 20 mg PO DAILY 06/20/18 Atenolol [Tenormin] 25 mg PO BID #30 tablet 06/23/18 Polyethylene Glycol 3350 [Miralax 17 gm PO BID bottle 06/23/18 119 gm Btl -] Sennosides [Senna -] 2 tab PO HS tablet 06/23/18 ASSESSMENT AND PLAN: 87 Y/O F W AFIB, R HF,COPD, P/W cough, initially treated for both HF exacerbtion and COPD exacerbation with lasix and IV steroids, hospital course complicated with most liklye traumatic rodriguez placement and hematuria. She has had an episodes of hypotension during the cysto and was briefly place of pressers, now resolved and in ICU for close monitoring. cardiovascular:RHF, afib, Episode of hypotension most likely in the setting of aggressive diuresis Will hold off diuretics for today and will reevaluate tomorrow Will C/W B luz( toprolol instead of home atenolol Will hold AC at this time in the setting of hematuria keep K>4, Mg>2 Hematuria: most likely traumatic folet placement, S/P Cysto and on CBI hold AC Monitor H/H and will transfuse for HG<8 urology team on board and their recs appreciated Pulm: has been treated for COPD exacerbation, pulmonary team onboards kept of IV steroids pre procedure: will switch to Po prednisone from tomorrow Will c/w atrovent/ albuterol standing at this time will reealute tomorrow will restartsymbicort when off po steroids DM: FS well controlled on the current regimen Ret of the management per HS notes.
[2018-08-11 18:29] LABS: ARTERIAL BLD GAS O2 SATURATION 97.3 % (90-98.9); ARTERIAL BLOOD GAS BASE EXCESS 14.2 meq/l (-2-2); ARTERIAL BLOOD GAS PCO2 55.2 mmHg (35-45); ARTERIAL BLOOD GAS PO2 96.3 mmHg (68-100); ARTERIAL BLOOD GAS pH 7.47 (7.35-7.45)
--- NOTE | 2018-08-11 18:38 | PN ---
Physical Exam: SUBJECTIVE: Patient is an 87 year old female with past medical history of A. fib (rate controlled, on eliquis), CHF, COPD (on 2L home O2), HTN, Pulmonary hypertension was admitted for acute hypoxic respiratory failure likely secondary to CHF and COPD exacerbation. Patient reported gross hematuria. Renal and bladder US revealed right hydronephrosis and multiple filling defects in the bladder. Patient is s/p cystoscopy, clot evacuation, bladder biopsy and bladder fulgeration. During the surgery, patient decompensated and received Epinephrine 50mcg and Vasopressin 5mg once. Patient transferred to ICU for closer monitoring. OBJECTIVE: Vital Signs Period Temp Pulse Resp BP Sys/Garza Pulse Ox Last 24 Hr 98.6 F-99.5 F 12-112 18-22 104-124/65-74 96-98 GENERAL: The patient is somnolent but arousable, on 3L NC. NECK: Trachea midline, full range of motion, supple. LUNGS: +scattered rhonchi bilaterally HEART: Regular rate and rhythm, S1, S2 without murmur, rub or gallop. ABDOMEN: Soft, nontender, nondistended, normoactive bowel sounds. EXTREMITIES: 2+ pulses, warm, well-perfused, no edema. SKIN: Warm, dry, normal turgor. Laboratory Results - last 24 hr 08/10/18 08/11/18 08/11/18 22:08 06:00 06:33 WBC RBC Hgb Hct MCV MCH MCHC RDW Plt Count MPV Anticoagulation Therapy Puncture Site ABG pH ABG pCO2 at Pt Temp ABG pO2 at Pt Temp ABG HCO3 ABG O2 Sat (Measured) ABG O2 Content ABG Base Excess Junior Test O2 Delivery Device Oxygen Flow Rate Vent Mode Vent Rate Mechanical Rate Pressure Support Vent Sodium Potassium Chloride Carbon Dioxide Anion Gap BUN Creatinine Creat Clearance w eGFR POC Glucometer 298 254 Random Glucose Hemoglobin A1c % 7.7 H Calcium Phosphorus Magnesium 08/11/18 08/11/18 08/11/18 06:50 06:50 12:09 WBC 30.7 H* RBC 4.87 Hgb 10.0 L Hct 32.9 MCV 67.6 L MCH 20.5 L MCHC 30.4 L RDW 17.7 H Plt Count 170 MPV 10.3 Anticoagulation Therapy Puncture Site ABG pH ABG pCO2 at Pt Temp ABG pO2 at Pt Temp ABG HCO3 ABG O2 Sat (Measured) ABG O2 Content ABG Base Excess Junior Test O2 Delivery Device Oxygen Flow Rate Vent Mode Vent Rate Mechanical Rate Pressure Support Vent Sodium 135 L Potassium 3.5 Chloride 83 L Carbon Dioxide > 45 H Anion Gap 7 L BUN 30 H Creatinine 0.8 Creat Clearance w eGFR > 60 POC Glucometer 251 Random Glucose 239 H Hemoglobin A1c % Calcium 8.2 L Phosphorus 3.6 Magnesium 2.4 08/11/18 08/11/18 16:04 17:50 WBC RBC Hgb Hct MCV MCH MCHC RDW Plt Count MPV Anticoagulation Therapy No Result Required. No Result Required. Puncture Site No Result Required. ABG pH 7.40 ABG pCO2 at Pt Temp 62.2 H* ABG pO2 at Pt Temp 295.0 H* D ABG HCO3 37.2 H ABG O2 Sat (Measured) 99.6 H* ABG O2 Content 14.2 L ABG Base Excess 10.9 H Junior Test No Result Required. O2 Delivery Device No Result Required. No Result Required. Oxygen Flow Rate No Result Required. No Result Required. Vent Mode No Result Required. No Result Required. Vent Rate No Result Required. No Result Required. Mechanical Rate No Result Required. No Result Required. Pressure Support Vent No Result Required. No Result Required. Sodium Potassium Chloride Carbon Dioxide Anion Gap BUN Creatinine Creat Clearance w eGFR POC Glucometer Random Glucose Hemoglobin A1c % Calcium Phosphorus Magnesium Active Medications Generic Name Dose Route Start Last Admin Trade Name Freq PRN Reason Stop Dose Admin Furosemide 40 mg 08/12/18 10:00 Lasix - PO DAILY LISA Ipratropium [place] 1 amp 08/11/18 18:17 Atrovent 0.02% Nebulizer - NEB Q4H PRN WHEEZING Ondansetron HCl 4 mg 08/11/18 16:43 Zofran Injection IVPUSH Q6H PRN NAUSEA AND/OR VOMITING Polyethylene Glycol 17 gm 08/11/18 22:00 Miralax (For Daily Use) - PO BID LISA Senna 2 tab 08/11/18 22:00 Senna - PO HS [facility] ASSESSMENT/PLAN: Patient is an 87 yo female with PMH of a-fib (rate controlled, on eliquis), COPD (on 2L home o2), HTN, pulmonary HTN, presented with gross hematuria. Renal and bladder US revealed right hydronephrosis and multiple filling defects in the bladder. Patient is s/p cystoscopy, clot evacuation, bladder biopsy and bladder fulgeration. #Acute hypoxic respiratory distress: likely from COPD -Continue Solu-medrol IV 40mg BID -Duonebs scheduled QID; albuterol PRN -Started symbicort inhaler -Oxygen to keep spO2 >88% -continue daily weights -Hold lasix for now as patient's blood pressure dropped during the procedure -Got epinephrine and vasopressin 1 time in the OR -ABG reviewed: pCO -Will repeat ABG in AM, or early depending on patient's mental status -will order CXR #Hematuria: s/p cystoscopy, clot evacuation, bladder biopsy and bladder fulgeration. -Repeat H/H in am -Patient is on continuous bladder irrigation -Discussed with urology, start eliquis in AM once urine is clean. #Leukocytosis -can be from steroid use vs. infection as patient is post-cystoscopy -WBC increased from 25 to 40 -Will send blood culture, UA, urine culture and lactic acid level -because of progressing WBC, will give 1 dose of Vanc/Zosyn -Will send ID consult. -Continue IV fluids #Atrial fibrillation: rate controlled and on AC -Eliquis on hold as above. -Continue Toprol XL 25mg BID -IV metoprolol PRN #Sarcoidosis: chronic -continue steroids. #HLD: stable -Continue Lipitor #FEN: -Gentle hydration, with repeated auscultation -Monitor electrolytes -NPO for now. Will restart diet in AM. PPX: -DVT - Eliquis on hold, SCDs -GI - Protonix 20mg qDaily Dispo: ICU for closer monitoring
[2018-08-11] MEDS ORDERED: ACETAMINOPHEN 1000 MG/100 ML VIAL (NON FORMULARY) IVPB PRN (19:00)
[2018-08-11] MEDS ORDERED: ALBUTEROL SO4 0.083% IH SOL 2.5 MG/3 ML VIAL.NEB. NEB PRN (19:31)
[2018-08-11 20:01] LABS: BASO % 0.2 % (0-2.0); HEMATOCRIT 31.5 % (32.4-45.2); HEMOGLOBIN 9.5 GM/dL (10.7-15.3); LYMPH % 0.9 % (8-40); MCH 20.5 pg (25.7-33.7); MCHC 30.3 g/dl (32.0-36.0); MEAN CELL VOLUME 67.8 fl (80-96); MEAN PLT VOLUME 10.3 fl (7.5-11.1); MONO % 3.7 % (3.8-10.2); NEUT % 95.2 % (42.8-82.8); PLATELET COUNT 205 K/MM3 (134-434); RBC 4.64 M/mm3 (3.60-5.2); RDW 18.4 % (11.6-15.6)
[2018-08-11 20:03] LABS: WHITE BLOOD COUNT 41.1 K/mm3 (4.0-10.0)
[2018-08-11] MEDS ORDERED: PIPERACILLIN/TAZOB 3.375 GM 3.375 GM in DEXTROSE 5%-WATER - 50 ML IVPB ONE (20:04)
[2018-08-11] MEDS ORDERED: VANCOMYCIN 1 GRAM (PRE-DOCKED) 1,000 MG/250 ML BAG IVPB ONE (20:04)
[2018-08-11 20:47] LABS: ALK PHOS 76 U/L (45-117); ANION GAP 13 MMOL/L (8-16); BILIRUBIN,TOTAL 0.9 mg/dL (0.2-1); BLOOD UREA NITROGEN 42 mg/dL (7-18); CALCIUM 7.8 mg/dL (8.5-10.1); CHLORIDE 84 mmol/L (98-107); CO2 41 mmol/L (21-32); CREATININE 1.1 mg/dL (0.55-1.3); GLUCOSE,RANDOM 271 mg/dL (74-106); POTASSIUM 3.2 mmol/L (3.5-5.1); SGOT/AST 75 U/L (15-37); SGPT/ALT 60 U/L (13-61); SODIUM 138 mmol/L (136-145); TOT PROT 5.4 g/dl (6.4-8.2)
[2018-08-11] MEDS ORDERED: PIPERACILLIN/TAZOBACTAM 2.25 GM VIAL IVPB ONE (20:50)
[2018-08-11] MEDS ORDERED: DEXTROSE 5%-WATER - 50 ML IVPB ONE (20:51)
[2018-08-11] MEDS ORDERED: METOPROLOL TARTRATE 5 MG/5 ML VIAL IVPUSH ONE (20:59)
[2018-08-11] MEDS: SENNOSIDES 8.6MG TABLET (FP) PO SCH (21:05)
[2018-08-11] MEDS: POLYETHYLENE GLYCOL 3350 119 GM BTL PO SCH (21:05)
[2018-08-11] MEDS: BUDESONIDE/FORMETEROL FUMARATE 160/4.5 mcg INHALER IH SCH (21:05)
[2018-08-11 21:06] LABS: URINE APPEARANCE SLCLOUDY; URINE BILIRUBIN NEGATIVE (<2.0 mg/dL); URINE COLOR LTYELLOW; URINE GLUCOSE (UA) NEGATIVE (NEGATIVE); URINE KETONE NEGATIVE (NEGATIVE); URINE LEUK ESTERASE TRACE (NEGATIVE); URINE NITRITE NEGATIVE (NEGATIVE); URINE PROTEIN NEGATIVE (NEGATIVE); URINE UROBILINOGEN NEGATIVE mg/dL (0.2-1.0)
[2018-08-11 21:51] LABS: URINE BACTERIA RARE /hpf (NONE SEEN)
[2018-08-11] MEDS: PIPERACILLIN/TAZOB 2.25 GM 2.25 GM in DEXTROSE 5%-WATER - 50 ML IVPB SCH (21:53)
[2018-08-11] MEDS ORDERED: methylPREDNISolone NA SUCC 40 MG/1 ML VIAL IVPUSH SCH (22:00)
--- NOTE | 2018-08-11 22:00 | PN ---
Physical Exam: SUBJECTIVE: Patient seen and examined at bedside in am. No acute events overnight. Continues to have gross hematuria. Underwent a cystoscopy today. During the surgery, patient decompensated and received Epinephrine 50mcg and Vasopressin 5mg once. Patient transferred to ICU for closer monitoring. OBJECTIVE: Vital Signs Period Temp Pulse Resp BP Sys/Garza Pulse Ox Last 24 Hr 97.6 F-99.5 F 12-112 18-27 100-148/50-77 96-100 GENERAL: Lethargic, moaning. Responds to physical stimuli HEAD: NC/AT EYES: PERRLA. LUNGS: Diffuse expiratory wheezing HEART: Irregularly irregular ABDOMEN: ND NT No HSM EXTREMITIES: No CCEt. SKIN:No rashes or lesions appreciated Laboratory Results - last 24 hr 08/10/18 08/11/18 08/11/18 22:08 06:00 06:33 WBC RBC Hgb Hct MCV MCH MCHC RDW Plt Count MPV Absolute Neuts (auto) Neutrophils % Lymphocytes % Monocytes % Eosinophils % Basophils % Nucleated RBC % Anticoagulation Therapy Puncture Site ABG pH ABG pCO2 at Pt Temp ABG pO2 at Pt Temp ABG HCO3 ABG O2 Sat (Measured) ABG O2 Content ABG Base Excess Junior Test O2 Delivery Device Oxygen Flow Rate Vent Mode Vent Rate Mechanical Rate Pressure Support Vent Sodium Potassium Chloride Carbon Dioxide Anion Gap BUN Creatinine Creat Clearance w eGFR POC Glucometer 298 254 Random Glucose Hemoglobin A1c % 7.7 H Lactic Acid Calcium Phosphorus Magnesium Total Bilirubin AST ALT Alkaline Phosphatase Total Protein Albumin Urine Color Urine Appearance Urine pH Ur Specific [place] Urine Protein Urine Glucose (UA) Urine Ketones Urine Blood Urine Nitrite Urine Bilirubin Urine Urobilinogen Ur Leukocyte Esterase 08/11/18 08/11/18 08/11/18 06:50 06:50 12:09 WBC 30.7 H* RBC 4.87 Hgb 10.0 L Hct 32.9 MCV 67.6 L MCH 20.5 L MCHC 30.4 L RDW 17.7 H Plt Count 170 MPV 10.3 Absolute Neuts (auto) Neutrophils % Lymphocytes % Monocytes % Eosinophils % Basophils % Nucleated RBC % Anticoagulation Therapy Puncture Site ABG pH ABG pCO2 at Pt Temp ABG pO2 at Pt Temp ABG HCO3 ABG O2 Sat (Measured) ABG O2 Content ABG Base Excess Junior Test O2 Delivery Device Oxygen Flow Rate Vent Mode Vent Rate Mechanical Rate Pressure Support Vent Sodium 135 L Potassium 3.5 Chloride 83 L Carbon Dioxide > 45 H Anion Gap 7 L BUN 30 H Creatinine 0.8 Creat Clearance w eGFR > 60 POC Glucometer 251 Random Glucose 239 H Hemoglobin A1c % Lactic Acid Calcium 8.2 L Phosphorus 3.6 Magnesium 2.4 Total Bilirubin AST ALT Alkaline Phosphatase Total Protein Albumin Urine Color Urine Appearance Urine pH Ur Specific [place] Urine Protein Urine Glucose (UA) Urine Ketones Urine Blood Urine Nitrite Urine Bilirubin Urine Urobilinogen Ur Leukocyte Esterase 08/11/18 08/11/18 08/11/18 16:04 17:50 19:30 WBC 41.1 H* RBC 4.64 Hgb 9.5 L Hct 31.5 L MCV 67.8 L MCH 20.5 L MCHC 30.3 L RDW 18.4 H Plt Count 205 D MPV 10.3 Absolute Neuts (auto) 39.1 H Neutrophils % 95.2 H Lymphocytes % 0.9 L Monocytes % 3.7 L Eosinophils % 0.0 D Basophils % 0.2 Nucleated RBC % 0 Anticoagulation Therapy No Result Required. No Result Required. Puncture Site No Result Required. No Result Required. ABG pH 7.40 7.47 H ABG pCO2 at Pt Temp 62.2 H* 55.2 H ABG pO2 at Pt Temp 295.0 H* D 96.3 D ABG HCO3 37.2 H 39.3 H ABG O2 Sat (Measured) 99.6 H* 97.3 ABG O2 Content 14.2 L 9.7 L* ABG Base Excess 10.9 H 14.2 H Junior Test No Result Required. No Result Required. O2 Delivery Device No Result Required. No Result Required. Oxygen Flow Rate No Result Required. No Result Required. Vent Mode No Result Required. No Result Required. Vent Rate No Result Required. No Result Required. Mechanical Rate No Result Required. No Result Required. Pressure Support Vent No Result Required. No Result Required. Sodium Potassium Chloride Carbon Dioxide Anion Gap BUN Creatinine Creat Clearance w eGFR POC Glucometer Random Glucose Hemoglobin A1c % Lactic Acid Calcium Phosphorus Magnesium Total Bilirubin AST ALT Alkaline Phosphatase Total Protein Albumin Urine Color Urine Appearance Urine pH Ur Specific [place] Urine Protein Urine Glucose (UA) Urine Ketones Urine Blood Urine Nitrite Urine Bilirubin Urine Urobilinogen Ur Leukocyte Esterase 08/11/18 08/11/18 08/11/18 19:30 20:30 20:30 WBC RBC Hgb Hct MCV MCH MCHC RDW Plt Count MPV Absolute Neuts (auto) Neutrophils % Lymphocytes % Monocytes % Eosinophils % Basophils % Nucleated RBC % Anticoagulation Therapy Puncture Site ABG pH ABG pCO2 at Pt Temp ABG pO2 at Pt Temp ABG HCO3 ABG O2 Sat (Measured) ABG O2 Content ABG Base Excess Junior Test O2 Delivery Device Oxygen Flow Rate Vent Mode Vent Rate Mechanical Rate Pressure Support Vent Sodium 138 Potassium 3.2 L Chloride 84 L Carbon Dioxide 41 H Anion Gap 13 BUN 42 H Creatinine 1.1 Creat Clearance w eGFR 46.88 POC Glucometer Random Glucose 271 H Hemoglobin A1c % Lactic Acid 4.1 H* Calcium 7.8 L Phosphorus Magnesium Total Bilirubin 0.9 AST 75 H ALT 60 Alkaline Phosphatase 76 Total Protein 5.4 L Albumin 2.0 L Urine Color Ltyellow Urine Appearance Slcloudy Urine pH 5.0 Ur Specific [place] 1.004 L Urine Protein Negative Urine Glucose (UA) Negative Urine Ketones Negative Urine Blood 3+ H Urine Nitrite Negative Urine Bilirubin Negative Urine Urobilinogen Negative Ur Leukocyte Esterase Trace Active Medications Generic Name Dose Route Start Last Admin Trade Name Freq PRN Reason Stop Dose Admin Albuterol Sulfate 1 amp 08/11/18 19:31 Ventolin 0.083% Nebulizer Soln - NEB Q6H PRN SHORT OF BREATH/WHEEZING Albuterol/Ipratropium 1 amp 08/11/18 20:00 Duoneb - NEB RQID LISA Budesonide/Formoterol Fumarate 2 puff 08/11/18 22:00 08/11/18 21:05 Symbicort 160/4.5mcg - IH Not Given BID LISA Piperacillin Sod/Tazobactam 50 mls @ 100 mls/hr 08/12/18 02:00 Sod 2.25 gm/ Dextrose IVPB Q8H-IV LISA Protocol Piperacillin Sod/Tazobactam 50 mls @ 100 mls/hr 08/11/18 20:30 Sod 2.25 gm/ Dextrose IVPB 08/12/18 02:29 Q8H-IV LISA Protocol Insulin Aspart 1 vial 08/11/18 22:00 Novolog Vial Sliding Scale - SQ ACHS LISA Protocol Methylprednisolone Sodium Succinate 40 mg 08/11/18 22:00 Solu-Medrol - IVPUSH BID LISA Metoprolol Succinate 25 mg 08/11/18 22:00 08/11/18 21:05 Toprol Xl - PO Not Given BID [facility] Ondansetron HCl 4 mg 08/11/18 16:43 Zofran Injection IVPUSH Q6H PRN NAUSEA AND/OR VOMITING Pantoprazole Sodium 20 mg 08/12/18 10:00 Protonix - PO DAILY [facility] Polyethylene Glycol 17 gm 08/11/18 22:00 08/11/18 21:05 Miralax (For Daily Use) - PO Not Given BID [facility] Senna 2 tab 08/11/18 22:00 08/11/18 21:05 Senna - PO Not Given HS [facility] ASSESSMENT/PLAN: 87 yo female with PMH of a-fib (rate controlled, on eliquis), CHF, COPD (on 2L home o2), HTN, pulmonary HTN, presented to the ED with complaint of SOB with a cough productive of clear sputum for 2 days and admitted for the treatment of CHF exacerbation #Acute hypercapnic hypoxic respiratory distress: resolving, patient had a likely exacerbation 2/2 CHF and COPD Medrol Q12 will change to PO 40 QD after cysto tomorrow -Duonebs scheduled QID; albuterol PRN -Pulmonology on board -Continue pulmicort inhaler -on 2L nasal cannula -continue daily weights #Hematuria: continuing to occur, likely 2/2 trauma vs acute bladder/kidney pathology -H&H 11.0/36.6. -Bladder/kidney US ordered--> 08/08/18: R [place]. Partially distended urinary bladder that is at least partially filled with debris. Cannot rule out blood clots. Cannot adequately evaluate its posterior wall. Bilateral ureteral jets were not visualized. Further evaluation of the urinary bladder is needed. -KUB no signs of obstructing stones. Urology on board. -08/11/19 S/p Cystourethroscopy, evacuation of clots, fulguration of bleeders placement 3 way 30 ml 24 fr rodriguez with continuos bladder irrigation. # WBC >40K -Vanc/Zosyn -Blood Cultures -Urine Cultures #Atrial fibrillation: stable -Eliquis on hold as hematuria persisits. Will resume when CBI clear -Continue Toprol XL 25mg BID #Sarcoidosis: chronic -Already on steroids for above problems, continue steroids. #HLD: stable -Continue Lipitor FEN: Fluids: Avoid; active diuresis Monitor electrolytes NPO PPX: DVT - Eliquis on hold GI - Protonix 20mg qDaily Dispo: ICU Visit type - Emergency Visit Emergency Visit: No - New Patient This patient is new to me today: No - Critical Care Critical Care patient: No - Discharge Referral Referred to [facility] Med P.C.: No
[2018-08-11] MEDS ORDERED: SODIUM CHLORIDE 1,000 ML IV SCH (22:15)
[2018-08-11 22:32] LABS: PLATELET ESTIMATE ADEQUATE
[2018-08-11 22:33] LABS: ANISOCYTOSIS 1+
[2018-08-12] MEDS ORDERED: PIPERACILLIN/TAZOBACTAM 2.25 GM VIAL IVPB ONE (00:44)
[2018-08-12] MEDS ORDERED: DEXTROSE 5%-WATER - 50 ML IVPB ONE (00:44)
[2018-08-12] MEDS ORDERED: PIPERACILLIN/TAZOB 2.25 GM 2.25 GM in DEXTROSE 5%-WATER - 50 ML IVPB SCH (02:00)
[2018-08-12] MEDS: PIPERACILLIN/TAZOB 2.25 GM 2.25 GM in DEXTROSE 5%-WATER - 50 ML IVPB SCH (02:35)
[2018-08-12 03:27] LABS: MAGNESIUM 2.4 mg/dL (1.8-2.4); PHOSPHOROUS 5.2 mg/dL (2.5-4.9)
[2018-08-12 06:16] LABS: BASO % 0.2 % (0-2.0); HEMATOCRIT 33.3 % (32.4-45.2); HEMOGLOBIN 9.9 GM/dL (10.7-15.3); LYMPH % 7.9 % (8-40); MCH 20.3 pg (25.7-33.7); MCHC 29.8 g/dl (32.0-36.0); MEAN CELL VOLUME 68.2 fl (80-96); MEAN PLT VOLUME 9.9 fl (7.5-11.1); MONO % 2.9 % (3.8-10.2); PLATELET COUNT 165 K/MM3 (134-434); RBC 4.88 M/mm3 (3.60-5.2); RDW 17.8 % (11.6-15.6)
[2018-08-12] MEDS: INSULIN SLIDING SCALE (NOVOLOG) 1 VIAL SQ SCH ×4 (06:28→23:51)
[2018-08-12 06:37] LABS: WHITE BLOOD COUNT 41.1 K/mm3 (4.0-10.0)
[2018-08-12 06:48] LABS: ALK PHOS 73 U/L (45-117); ANION GAP 11 MMOL/L (8-16); BLOOD UREA NITROGEN 51 mg/dL (7-18); CALCIUM 7.9 mg/dL (8.5-10.1); CHLORIDE 82 mmol/L (98-107); CO2 40 mmol/L (21-32); CREATININE 1.8 mg/dL (0.55-1.3); GLUCOSE,RANDOM 245 mg/dL (74-106); MAGNESIUM 2.5 mg/dL (1.8-2.4); PHOSPHOROUS 5.2 mg/dL (2.5-4.9); POTASSIUM 3.3 mmol/L (3.5-5.1); SGOT/AST 55 U/L (15-37); SGPT/ALT 46 U/L (13-61); SODIUM 133 mmol/L (136-145); TOT PROT 5.6 g/dl (6.4-8.2)
[2018-08-12] MEDS: ALBUTEROL SO4 2.5/IPRATROPIUM 0.5 INH SOL 3 ML VIAL.NEB. NEB SCH ×4 (08:24→19:54)
[2018-08-12] MEDS ORDERED: METOPROLOL TARTRATE 5 MG/5 ML VIAL IVPUSH ONE (08:34)
[2018-08-12] MEDS ORDERED: SODIUM CHLORIDE 500 ML IV STA ×2 (08:37→13:25)
--- NOTE | 2018-08-12 08:45 | PN ---
Physical Exam: SUBJECTIVE: Patient seen and examined at bedside. Patient complains of mild abdominal pain. Denies any chest pain or shortness of breath. Patient is s/p cystoscopy yesterday with Dr. Colon. Currently pt is on CBI. OBJECTIVE: Vital Signs Period Temp Pulse Resp BP Sys/Garza Pulse Ox Last 24 Hr 97.6 F-98.6 F 94-122 18-27 100-148/50-89 96-100 GENERAL: A&O x 3, no acute distress EYES: PERRLA, EOMI LUNGS: bilateral diffuse rhonchi, no change from yesterday HEART: Irregularly irregular, mild systolic murmur appreciated, no rubs or gallops ABDOMEN: Mildly tender to palpation, bowel sounds present EXTREMITIES: no edema noted b/l : rodriguez in place with CBI running, pink urine without overt blood or clots, seems to be clearing in the catheter tubing Laboratory Results - last 24 hr 08/11/18 08/11/18 08/11/18 06:00 12:09 16:04 WBC RBC Hgb Hct MCV MCH MCHC RDW Plt Count MPV Absolute Neuts (auto) Total Counted Neutrophils % Neutrophils % (Manual) Band Neutrophils % Lymphocytes % Lymphocytes % (Manual) Monocytes % Eosinophils % Basophils % Nucleated RBC % Hypochromia Platelet Estimate Anisocytosis Microcytosis Anticoagulation Therapy No Result Required. Puncture Site No Result Required. ABG pH 7.40 ABG pCO2 at Pt Temp 62.2 H* ABG pO2 at Pt Temp 295.0 H* D ABG HCO3 37.2 H ABG O2 Sat (Measured) 99.6 H* ABG O2 Content 14.2 L ABG Base Excess 10.9 H [place] Test No Result Required. O2 Delivery Device No Result Required. Oxygen Flow Rate No Result Required. Vent Mode No Result Required. Vent Rate No Result Required. Mechanical Rate No Result Required. Pressure Support Vent No Result Required. Sodium Potassium Chloride Carbon Dioxide Anion Gap BUN Creatinine Creat Clearance w eGFR POC Glucometer 251 Random Glucose Hemoglobin A1c % 7.7 H Lactic Acid Calcium Phosphorus Magnesium Total Bilirubin AST ALT Alkaline Phosphatase Total Protein Albumin Urine Color Urine Appearance Urine pH Ur Specific [place] Urine Protein Urine Glucose (UA) Urine Ketones Urine Blood Urine Nitrite Urine Bilirubin Urine Urobilinogen Ur Leukocyte Esterase Urine WBC (Auto) Urine RBC (Auto) Urine Bacteria 08/11/18 08/11/1808/11/18 17:50 19:30 19:30 WBC 41.1 H* RBC 4.64 Hgb 9.5 L Hct 31.5 L MCV 67.8 L MCH 20.5 L MCHC 30.3 L RDW 18.4 H Plt Count 205 D MPV 10.3 Absolute Neuts (auto) 39.1 H Total Counted 100 Neutrophils % 95.2 H Neutrophils % (Manual) 94.0 H Band Neutrophils % 1.0 Lymphocytes % 0.9 L Lymphocytes % (Manual) 5.0 L D Monocytes % 3.7 L Eosinophils % 0.0 D Basophils % 0.2 Nucleated RBC % 0 Hypochromia 2+ Platelet Estimate Adequate Anisocytosis 1+ Microcytosis 2+ Anticoagulation Therapy No Result Required. Puncture Site No Result Required. ABG pH 7.47 H ABG pCO2 at Pt Temp 55.2 H ABG pO2 at Pt Temp 96.3 D ABG HCO3 39.3 H ABG O2 Sat (Measured) 97.3 ABG O2 Content 9.7 L* ABG Base Excess 14.2 H Junior Test No Result Required. O2 Delivery Device No Result Required. Oxygen Flow Rate No Result Required. Vent Mode No Result Required. Vent Rate No Result Required. Mechanical Rate No Result Required. Pressure Support Vent No Result Required. Sodium 138 Potassium 3.2 L Chloride 84 L Carbon Dioxide 41 H Anion Gap 13 BUN 42 H Creatinine 1.1 Creat Clearance w eGFR 46.88 POC Glucometer Random Glucose 271 H Hemoglobin A1c % Lactic Acid Calcium 7.8 L Phosphorus Magnesium Total Bilirubin 0.9 AST 75 H ALT 60 Alkaline Phosphatase 76 Total Protein 5.4 L Albumin 2.0 L Urine Color Urine Appearance Urine pH Ur Specific [place] Urine Protein Urine Glucose (UA) Urine Ketones Urine Blood Urine Nitrite Urine Bilirubin Urine Urobilinogen Ur Leukocyte Esterase Urine WBC (Auto) Urine RBC (Auto) Urine Bacteria 08/11/18 08/11/18 08/11/18 20:30 20:30 21:51 WBC RBC Hgb Hct MCV MCH MCHC RDW Plt Count MPV Absolute Neuts (auto) Total Counted Neutrophils % Neutrophils % (Manual) Band Neutrophils % Lymphocytes % Lymphocytes % (Manual) Monocytes % Eosinophils % Basophils % Nucleated RBC % Hypochromia Platelet Estimate Anisocytosis Microcytosis Anticoagulation Therapy Puncture Site ABG pH ABG pCO2 at Pt Temp ABG pO2 at Pt Temp ABG HCO3 ABG O2 Sat (Measured) ABG O2 Content ABG Base Excess Junior Test O2 Delivery Device Oxygen Flow Rate Vent Mode Vent Rate Mechanical Rate Pressure Support Vent Sodium Potassium Chloride Carbon Dioxide Anion Gap BUN Creatinine Creat Clearance w eGFR POC Glucometer [phone] Random Glucose Hemoglobin A1c % Lactic Acid 4.1 H* Calcium Phosphorus Magnesium Total Bilirubin AST ALT Alkaline Phosphatase Total Protein Albumin Urine Color Ltyellow Urine Appearance Slcloudy Urine pH 5.0 Ur Specific [place] 1.004 L Urine Protein Negative Urine Glucose (UA) Negative Urine Ketones Negative Urine Blood 3+ H Urine Nitrite Negative Urine Bilirubin Negative Urine Urobilinogen Negative Ur Leukocyte Esterase Trace Urine WBC (Auto) 69 Urine RBC (Auto) 148 Urine Bacteria Rare 08/12/18 08/12/18 08/12/18 02:00 02:00 05:30 WBC 41.1 H* RBC 4.88 Hgb 9.9 L Hct 33.3 MCV 68.2 L MCH 20.3 L MCHC 29.8 L RDW 17.8 H Plt Count 165 MPV 9.9 Absolute Neuts (auto) 36.6 H Total Counted Neutrophils % 89.0 H Neutrophils % (Manual) Band Neutrophils % Lymphocytes % 7.9 L D Lymphocytes % (Manual) Monocytes % 2.9 L Eosinophils % 0.0 Basophils % 0.2 Nucleated RBC % 0 Hypochromia Platelet Estimate Anisocytosis Microcytosis Anticoagulation Therapy Puncture Site ABG pH ABG pCO2 at Pt Temp ABG pO2 at Pt Temp ABG HCO3 ABG O2 Sat (Measured) ABG O2 Content ABG Base Excess Junior Test O2 Delivery Device Oxygen Flow Rate Vent Mode Vent Rate Mechanical Rate Pressure Support Vent Sodium Potassium Chloride Carbon Dioxide Anion Gap BUN Creatinine Creat Clearance w eGFR POC Glucometer Random Glucose Hemoglobin A1c % Lactic Acid 3.2 H* Calcium Phosphorus 5.2 H Magnesium 2.4 Total Bilirubin AST ALT Alkaline Phosphatase Total Protein Albumin Urine Color Urine Appearance Urine pH Ur Specific [place] Urine Protein Urine Glucose (UA) Urine Ketones Urine Blood Urine Nitrite Urine Bilirubin Urine Urobilinogen Ur Leukocyte Esterase Urine WBC (Auto) Urine RBC (Auto) Urine Bacteria 08/12/18 08/12/18 08/12/18 05:30 05:30 06:02 WBC RBC Hgb Hct MCV MCH MCHC RDW Plt Count MPV Absolute Neuts (auto) Total Counted Neutrophils % Neutrophils % (Manual) Band Neutrophils % Lymphocytes % Lymphocytes % (Manual) Monocytes % Eosinophils % Basophils % Nucleated RBC % Hypochromia Platelet Estimate Anisocytosis Microcytosis Anticoagulation Therapy Puncture Site ABG pH ABG pCO2 at Pt Temp ABG pO2 at Pt Temp ABG HCO3 ABG O2 Sat (Measured) ABG O2 Content ABG Base Excess Junior Test O2 Delivery Device Oxygen Flow Rate Vent Mode Vent Rate Mechanical Rate Pressure Support Vent Sodium 133 L Potassium 3.3 L Chloride 82 L Carbon Dioxide 40 H Anion Gap 11 BUN 51 H Creatinine 1.8 H Creat Clearance w eGFR 26.55 POC Glucometer [phone] Random Glucose 245 H Hemoglobin A1c % Lactic Acid 2.9 H* Calcium 7.9 L Phosphorus 5.2 H Magnesium 2.5 H Total Bilirubin 1.0 AST 55 H ALT 46 Alkaline Phosphatase 73 Total Protein 5.6 L Albumin 2.0 L Urine Color Urine Appearance Urine pH Ur Specific [place] Urine Protein Urine Glucose (UA) Urine Ketones Urine Blood Urine Nitrite Urine Bilirubin Urine Urobilinogen Ur Leukocyte Esterase Urine WBC (Auto) Urine RBC (Auto) Urine Bacteria Current Medications Albuterol Sulfate (Ventolin 0.083% Nebulizer Soln -) 1 amp NEB Q6H PRN PRN Reason: SHORT OF BREATH/WHEEZING Last Admin: 08/12/18 01:24 Dose: 1 amp Albuterol/Ipratropium (Duoneb -) 1 amp NEB RQID LISA Last Admin: 08/12/18 08:24 Dose: 1 amp Budesonide/Formoterol Fumarate (Symbicort 160/4.5mcg -) 2 puff IH BID LISA Last Admin: 08/11/18 21:05 Dose: Not Given Piperacillin Sod/Tazobactam (Sod 2.25 gm/ Dextrose) 50 mls @ 100 mls/hr IVPB Q8H-IV LISA; Protocol Sodium Chloride (Normal Saline -) 1,000 mls @ 42 mls/hr IV ASDIR LISA Last Admin: 08/12/18 01:13 Dose: 42 mls/hr Sodium Chloride (Normal Saline -) 500 mls @ 500 mls/hr IV ASDIR STA Stop: 08/12/18 09:36 Insulin Aspart (Novolog Vial Sliding Scale -) 1 vial SQ ACHS LISA; Protocol Last Admin: 08/12/18 06:28 Dose: 6 units Methylprednisolone Sodium Succinate (Solu-Medrol -) 40 mg IVPUSH BID [facility] Last Admin: 08/11/18 21:53 Dose: 40 mg Metoprolol Succinate (Toprol Xl -) 25 mg PO BID [facility] Last Admin: 08/11/18 21:05 Dose: Not Given Metoprolol Succinate (Toprol Xl -) 25 mg PO BID [facility] Metoprolol Tartrate (Lopressor Injection -) 5 mg IVPUSH ONCE ONE Stop: 08/12/18 08:35 Ondansetron HCl (Zofran Injection) 4 mg IVPUSH Q6H PRN PRN Reason: NAUSEA AND/OR VOMITING Pantoprazole Sodium (Protonix -) 20 mg PO DAILY [facility] Polyethylene Glycol (Miralax (For Daily Use) -) 17 gm PO BID [facility] Last Admin: 08/11/18 21:05 Dose: Not Given Senna (Senna -) 2 tab PO HS [facility] Last Admin: 08/11/18 21:05 Dose: Not Given ASSESSMENT/PLAN: 87 yo female with PMH of a-fib (rate controlled, on eliquis), CHF, COPD (on 2L home o2), HTN, pulmonary HTN, presented to the ED with complaint of SOB with a cough productive of clear sputum for 2 days and admitted for the treatment of CHF exacerbation #Acute hypercapnic hypoxic respiratory distress: likely 2/2 to both CHF and COPD exacerbation, improved; after procedure patient requires 4L NC and transfer to ICU for oxygenation and BP control -continue dexamethasone -Duonebs scheduled QID; albuterol PRN -Continue pulmicort inhaler -on 4L nasal cannula currently, attempt to decrease to 3 and recheck sats -continue daily weights #Hematuria: improving, pt is s/p cystoscopy yesterday. Found hemorrhagic cystitis with irregularity of bladder (bladder lesion), sample was obtained -H&H stable -bladder/kidney US shows R hydro and partially distended urinary bladder -KUB no signs of obstructing stones -uro consult appreciated -continue CBI -urine clearing, will restart eliquis if urine continues to remain clear tomorrow #Leukocytosis: unlikely new infection, but will cover for now - could be reactive leukocytosis from steroids on top of recent procedure, but has been rising steadily over the last couple of days -Vanc/Zosyn ordered -ID consulted -Blood Cultures -Urine Cultures #Acute Kidney Injury: creatinine 1.8 -increase fluids to 100cc/hr -likely due to overdiuresis #Atrial fibrillation: stable, mildly tachycardic today -will resume eliquis later today if CBI is clear -Continue Toprol XL 25mg BID #Sarcoidosis: chronic -Already on steroids for above problems, continue steroids. #HLD: stable -Continue Lipitor FEN: Fluids: Avoid; active diuresis Monitor electrolytes -resume diet PPX: DVT - Eliquis on hold GI - Protonix 20mg qDaily Disposition: -continue to monitor in ICU, possible downgrade if hemodynamically stable today Visit type - Emergency Visit Emergency Visit: No - New Patient This patient is new to me today: No - Critical Care Critical Care patient: Yes Total Critical Care Time (in minutes): 38 Critical Care Statement: The care of this patient involved high complexity decision making to prevent further life threatening deterioration of the patient 's condition and/or to evaluate & treat vital organ system(s) failure or risk of failure.
[2018-08-12] MEDS ORDERED: metoPROLOL SUCCINATE 25 MG TAB.SR.24H (FP) PO ONE (08:50)
[2018-08-12 08:58] LABS: ARTERIAL BLOOD GAS BASE EXCESS 16.1 meq/l (-2-2); ARTERIAL BLOOD GAS PCO2 52.5 mmHg (35-45); ARTERIAL BLOOD GAS pH 7.51 (7.35-7.45)
[2018-08-12 09:24] LABS: ALLENS TEST POSITIVE
[2018-08-12] MEDS ORDERED: POTASSIUM CHLORIDE TABS 20 MEQ TABLET.ER (FP) PO ONE (09:28)
[2018-08-12] MEDS ORDERED: metoPROLOL SUCCINATE 25 MG TAB.SR.24H (FP) PO SCH (10:00)
[2018-08-12] MEDS ORDERED: predniSONE 20 MG TABLET (UD) PO SCH (10:00)
[2018-08-12] MEDS ORDERED: FUROSEMIDE 40 MG TABLET (FP) PO SCH (10:00)
[2018-08-12] MEDS ORDERED: IRON SUCROSE INJECTION 100 MG in SODIUM CHLORIDE 95 ML IVPB ONE (10:30)
--- NOTE | 2018-08-12 10:30 | PN ---
Progress Note (short form) - Note Progress Note: Post op day#1.S/P cystoscopy with bladder biopsy under TIVA uneventful.P114,BP 114/67 and Spo2 96% on O2 $l NC.Patient stable.No any anesthesia related problem.Patient DC from the anesthesia care.
--- NOTE | 2018-08-12 10:33 | PN ---
Progress Note, Physician Chief Complaint: hypotension History of Present Illness: very thirsty repeatedly asking for water denies sob, cp no palpit, dizzy - Current Medication List Current Medications: Active Medications Albuterol Sulfate (Ventolin 0.083% Nebulizer Soln -) 1 amp NEB Q6H PRN PRN Reason: SHORT OF BREATH/WHEEZING Last Admin: 08/12/18 01:24 Dose: 1 amp Albuterol/Ipratropium (Duoneb -) 1 amp NEB RQID [facility] Last Admin: 08/12/18 08:24 Dose: 1 amp Budesonide/Formoterol Fumarate (Symbicort 160/4.5mcg -) 2 puff IH BID [facility] Last Admin: 08/11/18 21:05 Dose: Not Given Piperacillin Sod/Tazobactam (Sod 2.25 gm/ Dextrose) 50 mls @ 100 mls/hr IVPB Q8H-IV [facility]; Protocol Iron Sucrose 100 mg/ Sodium (Chloride) 100 mls @ 200 mls/hr IVPB ONCE ONE Stop: 08/12/18 10:59 Insulin Aspart (Novolog Vial Sliding Scale -) 1 vial SQ ACHS [facility]; Protocol Last Admin: 08/12/18 06:28 Dose: 6 units Metoprolol Succinate (Toprol Xl -) 25 mg PO BID [facility] Last Admin: 08/11/18 21:05 Dose: Not Given Ondansetron HCl (Zofran Injection) 4 mg IVPUSH Q6H PRN PRN Reason: NAUSEA AND/OR VOMITING Pantoprazole Sodium (Protonix -) 20 mg PO DAILY [facility] Polyethylene Glycol (Miralax (For Daily Use) -) 17 gm PO BID [facility] Last Admin: 08/11/18 21:05 Dose: Not Given Senna (Senna -) 2 tab PO HS [facility] Last Admin: 08/11/18 21:05 Dose: Not Given - Objective Vital Signs: Vital Signs Temperature 98.1 F 08/12/18 10:00 Pulse Rate 112 H 08/12/18 10:00 Respiratory Rate 31 H 08/12/18 10:00 Blood Pressure 124/44 L 08/12/18 10:00 O2 Sat by Pulse Oximetry (%) 96 08/12/18 09:00 Constitutional: Yes: Well Nourished, No Distress, Calm Cardiovascular: Yes: Regular Rate and Rhythm, S1, S2. No: JVD, Gallop, Murmur Respiratory: Yes: Regular, Rales (L base). No: Accessory Muscle Use Extremities: No: Cold Edema: No Neurological: Yes: Alert, Oriented Psychiatric: No: Agitated Labs: CBC, BMP 08/12/18 05:30 08/12/18 05:30 Assessment/Plan CXR: no acute process Echo 05/03: nl LVEF. mild RVE, mild-mod RV hypo. L/NEENA. mod MR/TR. RVSP at least 88 mmHg Echo 03/2017: Mild conc lvh. nl lv/rv size/fn, mod ronnie, mod mr, mod tr, rvsp 40- 50 EKG: afib with PVCs tele: afib to 120s hypotension: -periop hypotension 08/11 during cysto, briefly on pressors--transferred to icu for monitoring -likely due to sedatives on top of fixed low cardiac output state (sec to cor pulm). possibly compounded by overdiuresis--? RV is preload dependent here. -currently hemodynamically stable -check troponin SANAM: -creat 1.8 today, ? sec to acute hypoperfusion when hypotensive yest, ? 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 initially 158 here. -cont lasix iv 80 bid -07/29: Creat 0.6 and weight down to 162, continue current lasix regimen -07/30: Creat 0.8, K 3.4, Wt 161. Continue current lasix regimen, replete K -07/31: 161 lbs. -08/01: wt 160 lbs, cont same -08/02-20: appears euvolemic. was on lasix 40 qd at home. transitioned 80 iv bid to 80 qd -08/06: iv steroids continue and now dose increased. wt up a bit as well, restarted lasix 80 mg IV BID - 08/07-: weight continues to decrease, sob improving, Cr stable, still on IV steroids. Continue lasix 80 mg IV BID while on IV steroids. plan change to po lasix 80 daily when on po steroids. - 08/12: hypotensive during cystoscopy, looks dry clinically. SANAM this am. lasix on hold, gentle IVF--observe chf status closely afib: -rapid rates initially, atenolol changed to metoprolol succinate (same dose = 25 bid)--HR controlled. -defer CCB given concern about RV contractility depression (cor pulm pt) -incr'd HR overnight sec to acute hypotension, distress, ? anxiety -presently HRs remain < 120 mostly -if HRs rise will add digoxin -holding eliquis for now given hemorrhagic cystitis with large clots causing hydro--will resume when risk stable HTN: -bp controlled -cont current meds HPL: -cont home statin regimen hematuria, obstruction with hydro: - cysto showed hemorrhagic cystitis with large amount of clot which was evacuated - CBI ongoing - eliquis on hold--resume when cleared by regarding acceptable recurrent hematuria risk est time spent in pt exam, data review, and formulating plan of potentially life threatening medical problems = 35 min
[2018-08-12] MEDS: POLYETHYLENE GLYCOL 3350 119 GM BTL PO SCH ×3 (11:23→21:38)
[2018-08-12] MEDS: PANTOPRAZOLE 20 MG TABLET (FP) PO SCH (11:25)
[2018-08-12] MEDS: methylPREDNISolone NA SUCC 40 MG/1 ML VIAL IVPUSH SCH ×2 (11:25→21:38)
[2018-08-12] MEDS ORDERED: PT OWN MED DRAWER 7, Y5N ONE ×3 (11:29→20:34)
[2018-08-12] MEDS ORDERED: SODIUM CHLORIDE 1,000 ML IV SCH (11:30)
[2018-08-12] MEDS ORDERED: SODIUM CHLORIDE 0.9%/KCL 20 MEQ/1,000 ML INFUS.BAG IV SCH (11:30)
[2018-08-12 11:36] LABS: ANISOCYTOSIS 2+; MACROCYTOSIS 0; OVALOCYTE 1+; PLATELET ESTIMATE DECREASED; TARGET CELLS 2+
--- NOTE | 2018-08-12 11:36 | PN ---
Teaching Attending Note Name of Resident: Jackie Paris ATTENDING PHYSICIAN STATEMENT I saw and evaluated the patient. I reviewed the resident's note and discussed the case with the resident. I agree with the resident's findings and plan as documented. SUBJECTIVE: Pt seen and examined in the ICU. s/p cystoscopy with episode of hypotension given epinephrine and vasopressin. States breathing ok today but visibly tachypneic. CBI in progress. OBJECTIVE: Vital Signs Period Temp Pulse Resp BP Sys/Garza Pulse Ox Last 24 Hr 97.6 F-98.3 F 94-122 18-31 100-148/44-89 96-100 Intake & Output 08/09/18 08/10/18 08/11/18 08/12/18 23:59 23:59 23:59 23:59 Intake Total 520 1070 7050 9294 Output Total 6200 7800 Balance 520 1780 336 7192 Weight 68.946 kg 67.676 kg 68.663 kg Gen: tachypneic at rest Heart: tachycardic, regular Lung: bilateral rhonchi Abd: soft, nontender Ext: no edema CBC, BMP 08/12/18 05:30 08/12/18 05:30 Active Medications Albuterol Sulfate (Ventolin 0.083% Nebulizer Soln -) 1 amp NEB Q6H PRN PRN Reason: SHORT OF BREATH/WHEEZING Last Admin: 08/12/18 01:24 Dose: 1 amp Albuterol/Ipratropium (Duoneb -) 1 amp NEB RQID [facility] Last Admin: 08/12/18 08:24 Dose: 1 amp Budesonide/Formoterol Fumarate (Symbicort 160/4.5mcg -) 2 puff IH BID [facility] Last Admin: 08/11/18 21:05 Dose: Not Given Piperacillin Sod/Tazobactam (Sod 2.25 gm/ Dextrose) 50 mls @ 100 mls/hr IVPB Q8H-IV [facility]; Protocol Potassium Chloride 20 meq/ (Sodium Chloride) 1,010 mls @ 75 mls/hr IVPB ASDIR [facility] Insulin Aspart (Novolog Vial Sliding Scale -) 1 vial SQ ACHS [facility]; Protocol Last Admin: 08/12/18 06:28 Dose: 6 units Metoprolol Succinate (Toprol Xl -) 25 mg PO BID [facility] Last Admin: 08/11/18 21:05 Dose: Not Given Ondansetron HCl (Zofran Injection) 4 mg IVPUSH Q6H PRN PRN Reason: NAUSEA AND/OR VOMITING Pantoprazole Sodium (Protonix -) 20 mg PO DAILY [facility] Last Admin: 08/12/18 11:25 Dose: 20 mg Polyethylene Glycol (Miralax (For Daily Use) -) 17 gm PO BID [facility] Last Admin: 08/12/18 11:23 Dose: 17 gm Senna (Senna -) 2 tab PO HS [facility] Last Admin: 08/11/18 21:05 Dose: Not Given ASSESSMENT AND PLAN: Acute on Chronic Hypoxic and Hypercapneic Respiratory Failure clinically improving Acute on Chronic Diastolic Heart Failure Acute COPD Exacerbation Sarcoidosis Severe Pulmonary HTN Atrial Fibrillation HTN Hyperlipidemia Hematuria s/p Cystoscopy Acute Kidney Injury - continue CBI - continue medrol q12h today - inhaled bronchodilators - O2 to keep SpO2>90% - IVF - monitor urine output, creatinine - rate control - anticoagulation - continue ICU monitoring critical care time spent in reviewing chart, evaluating patient and formulating plan 35 min
[2018-08-12] MEDS: metoPROLOL SUCCINATE 25 MG TAB.SR.24H (FP) PO SCH (11:48)
--- NOTE | 2018-08-12 12:14 | PN ---
Progress Note (short form) - Note Progress Note: ID Consult dictated +BC R/O staph bacteremia Hypotension, Tachypnea, hypoxemia s/p cysto R/O sepsis secondary to source Leukocytosis- multifactorial lactic acidosis Hemorrhagic cystitis s/p cysto COPD/CHF Azotemia Repeat BC empiric vanocomycin/ cefepime Critical care time 35min
[2018-08-12] MEDS: BUDESONIDE/FORMETEROL FUMARATE 160/4.5 mcg INHALER IH SCH ×2 (12:21→21:38)
[2018-08-12] MEDS ORDERED: HEMOQUE TEST 1 EACH EACH ONE (12:26)
[2018-08-12] MEDS: METOPROLOL TARTRATE 5 MG/5 ML VIAL IVPUSH SCH ×2 (12:28→17:56)
[2018-08-12] MEDS ORDERED: VANCOMYCIN 1 GRAM (PRE-DOCKED) 1,000 MG/250 ML BAG IVPB SCH (13:00)
--- NOTE | 2018-08-12 13:08 | PN ---
Teaching Attending Note Name of Resident: Ramon Luna ATTENDING PHYSICIAN STATEMENT I saw and evaluated the patient. I reviewed the resident's note and discussed the case with the resident. I agree with the resident's findings and plan as documented. SUBJECTIVE: this morning she is awake, has O2 4l nc on, complains of SOB while tachycardic to 120-130 (did not take her toprolol dose last night). ABG was done, saturating in 100%. with metabolic alkalosis Since yesterday she has only received minimal fluids and looks very very dry. OBJECTIVE: I/O 6L CBI 750 CC total iv fluid in he past 24 hours, while she is NPO. She has severely dry mucousa Lung: good air movement with no wheezing CVS;S1S2, Irregular tachy rodriguez and CBI inplace, pink urine in the bag. She was agitated ASSESSMENT AND PLAN: 87 Y/O F W AFIB, R HF,COPD, P/W cough, initially treated for both HF exacerbation and COPD exacerbation with lasix and IV steroids, hospital course complicated with most likely traumatic rodriguez placement and hematuria. She has had an episodes of hypotension during the cysto and was briefly place of pressers, now resolved and in ICU for close monitoring. cardiovascular:RHF, afib, Episode of hypotension most likely in the setting of aggressive diuresis Will hold off diuretics for today and will reevaluate tomorrow Will C/W B luz( toprolol instead of home atenolol Will hold AC at this time in the setting of hematuria keep K>4, Mg>2 Hematuria: most likely traumatic rodriguez placement, S/P Cysto and on CBI, no more clots at this time. hold AC Monitor H/H and will transfuse for HG<8 urology team on board and their recs appreciated Pulm: has been treated for COPD exacerbation, pulmonary team on boards Plan to chage steroids to Po but per ICU attending recs, she will stay on IV for today. She has no wheezing and she should be able to tolerate Po. Will c/w atrovent/ albuterol standing at this time will reevaluate tomorrow will restart symbicort when off po steroids Leukocytes: She has been afebrile but as she was unstable she was started onIV antibiotics, all cultures have bene negative so far. will discuss with ID for need for antibiotics for her. Metabolic alkalosis: she is significantly volume depleted at this time , will give bolus 500 CC NS and monitor the response. will andrés another 500 cc later today if no sign of volume overload Diet: start her on diet DM: FS well controlled on the current regimen restraining order: she as delirious last night but with more hydratoin and resolution of hypoxia Rest of the management per HS notes.
[2018-08-12] MEDS ORDERED: SODIUM CHLORIDE NASAL SPRAY 44 ML BOTTLE NS PRN (13:26)
--- NOTE | 2018-08-12 13:27 | CONS ---
INFECTIOUS DISEASE CONSULTATION DATE OF CONSULTATION: DATE OF DICTATION: 08/12/2018 HISTORY OF PRESENT ILLNESS: The patient is an 87-year-old female who is evaluated for leukocytosis and positive blood cultures. History was obtained from the chart, as she cannot give a reliable history. She was admitted to the hospital on July 25, 2018, with complaint of cough productive of yellowish sputum for several days prior to admission. She was diagnosed with acute exacerbation COPD and decompensated congestive heart failure. She was treated with diuretics and intravenous corticosteroids. Her hospital course was complicated by gross hematuria. She was taken to the operating room on August 11, 2018, where a cystoscopy was performed. She was found to have hemorrhagic cystitis with clot retention. Clots were evacuated. Postprocedure, she developed hypotension, tachypnea, and hypoxemia requiring pressors, and transferred to the intensive care unit. At the present time, she is awake in the intensive care unit. She appears confused. She offers no focal complaints. Continuous bladder irrigation in progress. She denies any pain. PAST MEDICAL HISTORY: Positive for congestive heart failure, atrial fibrillation, COPD, sarcoidosis, hypertension, hyperlipidemia. ALLERGIES: No known allergies. MEDICATIONS: Include Zofran, Ventolin, DuoNeb, Lopressor, MiraLAX, NovoLog, Protonix. SOCIAL HISTORY: She lives in a [facility]. No active tobacco or alcohol use. SYSTEMS REVIEW: Neurologic: No loss of consciousness, seizure activity, focal weakness. Cardiac: Negative chest pain or palpitations. Respiratory: As per HPI. Gastrointestinal: Negative vomiting or diarrhea. Genitourinary: As per HPI. LABORATORY DATA: White count 41.1, neutrophils 89, lymphocytes 8, monocytes 3, hematocrit 33.3, platelet count 165. BUN 51, creatinine 1.8. Urinalysis: White cells 69. Blood cultures: Gram-positive cocci in clusters in 2 out of 4 bottles. Chest x-ray: Negative for acute infiltrate. PHYSICAL EXAMINATION: General: On exam, the patient is awake, but confused, in no acute distress, breathing is nonlabored. Vital signs: Temperature 98.1, blood pressure 139/89, pulse 96 and regular, respirations 18 per minute. Eyes: The sclerae are anicteric. Heart: Heart sounds tachycardiac, S1, S2. Lungs: Scattered rhonchi bilaterally. Abdomen: Soft. Obese. No tenderness elicited. No mass, rebound or rigidity. Extremities: Edema 1+. IMPRESSION: 1. Positive blood cultures. Rule out staphylococcus bacteremia. 2. Hypotension, tachypnea, hypoxemia, status post cystoscopy. Rule out sepsis secondary to genitourinary source. 3. Leukocytosis (multifactorial). 4. Lactic acidosis. 5. Hemorrhagic cystitis. Status post cystoscopy. 6. Chronic obstructive pulmonary disease. 7. Congestive heart failure. Sepsis syndrome with hypotension, tachypnea, hypoxemia, status post urologic procedure. Rule out sepsis secondary to source. Await identification of blood isolate. We will repeat blood cultures. Empirically treat with vancomycin and cefepime adjusted for azotemia. Continue ICU monitoring. Prognosis is guarded. Critical Care time spent 35 minutes. Thank you for the kind referral. LUIS E MAYA M.D. [id number]
[2018-08-12] MEDS ORDERED: MIDODRINE HCL 5 MG TABLET PO SCH (14:00)
--- NOTE | 2018-08-12 14:14 | PN ---
Physical Exam: SUBJECTIVE: Patient seen and examined. Complaining of SOB. ABG ordered She was tachycardic (did not take her metoprolol. patient a-fib) On 4 L NC saturating 100% OBJECTIVE: Vital Signs Period Temp Pulse Resp BP Sys/Garza Pulse Ox Last 24 Hr 97.6 F-98.3 F 94-128 18-31 100-148/44-89 96-100 GENERAL: The patient is awake, alert EYESsclera anicteric, conjunctiva clear. No ptosis. ENT: dry mucous membranes NECK: supple. LUNGS: Breath sounds equal, clear to auscultation bilaterally HEART: irregular, tachy ABDOMEN: +bs, tender to palpation throughout, no guarding EXTREMITIES: 2+ pulses, no edema : Rodriguez, CBI in place. [place] urine. Laboratory Results - last 24 hr 08/11/18 08/11/18 08/11/18 16:04 17:50 19:30 WBC 41.1 H* RBC 4.64 Hgb 9.5 L Hct 31.5 L MCV 67.8 L MCH 20.5 L MCHC 30.3 L RDW 18.4 H Plt Count 205 D MPV 10.3 Absolute Neuts (auto) 39.1 H Total Counted 100 Neutrophils % 95.2 H Neutrophils % (Manual) 94.0 H Band Neutrophils % 1.0 Lymphocytes % 0.9 L Lymphocytes % (Manual) 5.0 L D Monocytes % 3.7 L Monocytes % (Manual) Eosinophils % 0.0 D Eosinophils % (Manual) Basophils % 0.2 Basophils % (Manual) Myelocytes % (Man) Promyelocytes % (Man) Blast Cells % (Manual) Nucleated RBC % 0 Metamyelocytes Hypochromia 2+ Platelet Estimate Adequate Platelet Comment Polychromasia Poikilocytosis Anisocytosis 1+ Microcytosis 2+ Macrocytosis Target Cells Ovalocytes Fragmented RBCs Anticoagulation Therapy No Result Required. No Result Required. Puncture Site No Result Required. No Result Required. ABG pH 7.40 7.47 H ABG pCO2 at Pt Temp 62.2 H* 55.2 H ABG pO2 at Pt Temp 295.0 H* D 96.3 D ABG HCO3 37.2 H 39.3 H ABG O2 Sat (Measured) 99.6 H* 97.3 ABG O2 Content 14.2 L 9.7 L* ABG Base Excess 10.9 H 14.2 H Junior Test No Result Required. No Result Required. O2 Delivery Device No Result Required. No Result Required. Oxygen Flow Rate No Result Required. No Result Required. Vent Mode No Result Required. No Result Required. Vent Rate No Result Required. No Result Required. Mechanical Rate No Result Required. No Result Required. Pressure Support Vent No Result Required. No Result Required. Sodium Potassium Chloride Carbon Dioxide Anion Gap BUN Creatinine Creat Clearance w eGFR POC Glucometer Random Glucose Lactic Acid Calcium Phosphorus Magnesium Total Bilirubin AST ALT Alkaline Phosphatase Troponin I Total Protein Albumin Urine Color Urine Appearance Urine pH Ur Specific [place] Urine Protein Urine Glucose (UA) Urine Ketones Urine Blood Urine Nitrite Urine Bilirubin Urine Urobilinogen Ur Leukocyte Esterase Urine WBC (Auto) Urine RBC (Auto) Urine Bacteria 08/11/18 08/11/18 08/11/18 19:30 20:30 20:30 WBC RBC Hgb Hct MCV MCH MCHC RDW Plt Count MPV Absolute Neuts (auto) Total Counted Neutrophils % Neutrophils % (Manual) Band Neutrophils % Lymphocytes % Lymphocytes % (Manual) Monocytes % Monocytes % (Manual) Eosinophils % Eosinophils % (Manual) Basophils % Basophils % (Manual) Myelocytes % (Man) Promyelocytes % (Man) Blast Cells % (Manual) Nucleated RBC % Metamyelocytes Hypochromia Platelet Estimate Platelet Comment Polychromasia Poikilocytosis Anisocytosis Microcytosis Macrocytosis Target Cells Ovalocytes Fragmented RBCs Anticoagulation Therapy Puncture Site ABG pH ABG pCO2 at Pt Temp ABG pO2 at Pt Temp ABG HCO3 ABG O2 Sat (Measured) ABG O2 Content ABG Base Excess Junior Test O2 Delivery Device Oxygen Flow Rate Vent Mode Vent Rate Mechanical Rate Pressure Support Vent Sodium 138 Potassium 3.2 L Chloride 84 L Carbon Dioxide 41 H Anion Gap 13 BUN 42 H Creatinine 1.1 Creat Clearance w eGFR 46.88 POC Glucometer Random Glucose 271 H Lactic Acid 4.1 H* Calcium 7.8 L Phosphorus Magnesium Total Bilirubin 0.9 AST 75 H ALT 60 Alkaline Phosphatase 76 Troponin I Total Protein 5.4 L Albumin 2.0 L Urine Color Ltyellow Urine Appearance Slcloudy Urine pH 5.0 Ur Specific [place] 1.004 L Urine Protein Negative Urine Glucose (UA) Negative Urine Ketones Negative Urine Blood 3+ H Urine Nitrite Negative Urine Bilirubin Negative Urine Urobilinogen Negative Ur Leukocyte Esterase Trace Urine WBC (Auto) 69 Urine RBC (Auto) 148 Urine Bacteria Rare 08/11/18 08/12/18 08/12/18 21:51 02:00 02:00 WBC RBC Hgb Hct MCV MCH MCHC RDW Plt Count MPV Absolute Neuts (auto) Total Counted Neutrophils % Neutrophils % (Manual) Band Neutrophils % Lymphocytes % Lymphocytes % (Manual) Monocytes % Monocytes % (Manual) Eosinophils % Eosinophils % (Manual) Basophils % Basophils % (Manual) Myelocytes % (Man) Promyelocytes % (Man) Blast Cells % (Manual) Nucleated RBC % Metamyelocytes Hypochromia Platelet Estimate Platelet Comment Polychromasia Poikilocytosis Anisocytosis Microcytosis Macrocytosis Target Cells Ovalocytes Fragmented RBCs Anticoagulation Therapy Puncture Site ABG pH ABG pCO2 at Pt Temp ABG pO2 at Pt Temp ABG HCO3 ABG O2 Sat (Measured) ABG O2 Content ABG Base Excess Junior Test O2 Delivery Device Oxygen Flow Rate Vent Mode Vent Rate Mechanical Rate Pressure Support Vent Sodium Potassium Chloride Carbon Dioxide Anion Gap BUN Creatinine Creat Clearance w eGFR POC Glucometer [phone] Random Glucose Lactic Acid 3.2 H* Calcium Phosphorus 5.2 H Magnesium 2.4 Total Bilirubin AST ALT Alkaline Phosphatase Troponin I Total Protein Albumin Urine Color Urine Appearance Urine pH Ur Specific [place] Urine Protein Urine Glucose (UA) Urine Ketones Urine Blood Urine Nitrite Urine Bilirubin Urine Urobilinogen Ur Leukocyte Esterase Urine WBC (Auto) Urine RBC (Auto) Urine Bacteria 08/12/18 08/12/18 08/12/18 05:30 05:30 05:30 WBC 41.1 H* RBC 4.88 Hgb 9.9 L Hct 33.3 MCV 68.2 L MCH 20.3 L MCHC 29.8 L RDW 17.8 H Plt Count 165 MPV 9.9 Absolute Neuts (auto) 36.6 H Total Counted Neutrophils % 89.0 H Neutrophils % (Manual) 96.0 H Band Neutrophils % 0.0 Lymphocytes % 7.9 L D Lymphocytes % (Manual) 2.0 L D Monocytes % 2.9 L Monocytes % (Manual) 1 L D Eosinophils % 0.0 Eosinophils % (Manual) 0.0 D Basophils % 0.2 Basophils % (Manual) 0.0 Myelocytes % (Man) 0 D Promyelocytes % (Man) 0 Blast Cells % (Manual) 0 Nucleated RBC % 0 Metamyelocytes 0 Hypochromia 2+ Platelet Estimate Decreased Platelet Comment Present Polychromasia 0 Poikilocytosis 1+ Anisocytosis 2+ Microcytosis 2+ Macrocytosis 0 Target Cells 2+ Ovalocytes 1+ Fragmented RBCs 2+ Anticoagulation Therapy Puncture Site ABG pH ABG pCO2 at Pt Temp ABG pO2 at Pt Temp ABG HCO3 ABG O2 Sat (Measured) ABG O2 Content ABG Base Excess Junior Test O2 Delivery Device Oxygen Flow Rate Vent Mode Vent Rate Mechanical Rate Pressure Support Vent Sodium 133 L Potassium 3.3 L Chloride 82 L Carbon Dioxide 40 H Anion Gap 11 BUN 51 H Creatinine 1.8 H Creat Clearance w eGFR 26.55 POC Glucometer Random Glucose 245 H Lactic Acid 2.9 H* Calcium 7.9 L Phosphorus 5.2 H Magnesium 2.5 H Total Bilirubin 1.0 AST 55 H ALT 46 Alkaline Phosphatase 73 Troponin I 2.03 H* Total Protein 5.6 L Albumin 2.0 L Urine Color Urine Appearance Urine pH Ur Specific [place] Urine Protein Urine Glucose (UA) Urine Ketones Urine Blood Urine Nitrite Urine Bilirubin Urine Urobilinogen Ur Leukocyte Esterase Urine WBC (Auto) Urine RBC (Auto) Urine Bacteria 08/12/18 08/12/18 08/12/18 05:30 06:02 08:45 WBC RBC Hgb Hct MCV MCH MCHC RDW Plt Count MPV Absolute Neuts (auto) Total Counted Neutrophils % Neutrophils % (Manual) Band Neutrophils % Lymphocytes % Lymphocytes % (Manual) Monocytes % Monocytes % (Manual) Eosinophils % Eosinophils % (Manual) Basophils % Basophils % (Manual) Myelocytes % (Man) Promyelocytes % (Man) Blast Cells % (Manual) Nucleated RBC % Metamyelocytes Hypochromia Platelet Estimate Platelet Comment Polychromasia Poikilocytosis Anisocytosis Microcytosis Macrocytosis Target Cells Ovalocytes Fragmented RBCs Anticoagulation Therapy Puncture Site Right radial ABG pH 7.51 H ABG pCO2 at Pt Temp 52.5 H ABG pO2 at Pt Temp 110.0 H ABG HCO3 41.4 H* ABG O2 Sat (Measured) 98.0 ABG O2 Content 13.2 L ABG Base Excess 16.1 H* Junior Test Positive O2 Delivery Device Nasal Oxygen Flow Rate 3l Vent Mode Vent Rate Mechanical Rate Pressure Support Vent Sodium Potassium Chloride Carbon Dioxide Anion Gap BUN Creatinine Creat Clearance w eGFR POC Glucometer [phone] Random Glucose Lactic Acid Calcium Phosphorus Magnesium Total Bilirubin AST ALT Alkaline Phosphatase Troponin I Cancelled Total Protein Albumin Urine Color Urine Appearance Urine pH Ur Specific [place] Urine Protein Urine Glucose (UA) Urine Ketones Urine Blood Urine Nitrite Urine Bilirubin Urine Urobilinogen Ur Leukocyte Esterase Urine WBC (Auto) Urine RBC (Auto) Urine Bacteria 08/12/18 11:46 WBC RBC Hgb Hct MCV MCH MCHC RDW Plt Count MPV Absolute Neuts (auto) Total Counted Neutrophils % Neutrophils % (Manual) Band Neutrophils % Lymphocytes % Lymphocytes % (Manual) Monocytes % Monocytes % (Manual) Eosinophils % Eosinophils % (Manual) Basophils % Basophils % (Manual) Myelocytes % (Man) Promyelocytes % (Man) Blast Cells % (Manual) Nucleated RBC % Metamyelocytes Hypochromia Platelet Estimate Platelet Comment Polychromasia Poikilocytosis Anisocytosis Microcytosis Macrocytosis Target Cells Ovalocytes Fragmented RBCs Anticoagulation Therapy Puncture Site ABG pH ABG pCO2 at Pt Temp ABG pO2 at Pt Temp ABG HCO3 ABG O2 Sat (Measured) ABG O2 Content ABG Base Excess Junior Test O2 Delivery Device Oxygen Flow Rate Vent Mode Vent Rate Mechanical Rate Pressure Support Vent Sodium Potassium Chloride Carbon Dioxide Anion Gap BUN Creatinine Creat Clearance w eGFR POC Glucometer [phone] Random Glucose Lactic Acid Calcium Phosphorus Magnesium Total Bilirubin AST ALT Alkaline Phosphatase Troponin I Total Protein Albumin Urine Color Urine Appearance Urine pH Ur Specific [place] Urine Protein Urine Glucose (UA) Urine Ketones Urine Blood Urine Nitrite Urine Bilirubin Urine Urobilinogen Ur Leukocyte Esterase Urine WBC (Auto) Urine RBC (Auto) Urine Bacteria Active Medications Generic Name Dose Route Start Last Admin Trade Name Freq PRN Reason Stop Dose Admin Albuterol Sulfate 1 amp 08/11/18 19:31 08/12/18 01:24 Ventolin 0.083% Nebulizer Soln - NEB 1 amp Q6H PRN Administration SHORT OF BREATH/WHEEZING Albuterol/Ipratropium 1 amp 08/11/18 20:00 08/12/18 11:52 Duoneb - NEB 1 amp RQID LISA Administration Budesonide/Formoterol Fumarate 2 puff 08/11/18 22:00 08/12/18 12:21 Symbicort 160/4.5mcg - IH 1 pfu BID LISA Administration Potassium Chloride/Sodium Chloride 20 meq in 1,000 mls @ 75 mls/hr 08/12/18 11 :30 08/12/18 13:22 Ns+20 Meq Kcl - IV 75 mls/hr ASDIR LISA Administration Vancomycin HCl 1,000 mg in 250 mls @ 166.667 mls/hr 08/12/18 13:00 08/12/18 13:22 Vancomycin (Pre-Docked) IVPB 166.667 mls/hr DAILY@1300 LISA Administration Protocol Cefepime HCl 1 gm/ Dextrose 100 mls @ 200 mls/hr 08/12/18 12:30 IVPB BID LISA Protocol Sodium Chloride 500 mls @ 500 mls/hr 08/12/18 13:25 Normal Saline - IV 08/12/18 14:24 ASDIR STA Insulin Aspart 1 vial 08/11/18 22:00 08/12/18 12:29 Novolog Vial Sliding Scale - SQ 4 units ACHS LISA Administration Protocol Metoprolol Tartrate 5 mg 08/12/18 12:00 08/12/18 12:28 Lopressor Injection - IVPUSH 5 mg Q6H LISA Administration Metoprolol Tartrate 5 mg 08/12/18 12:00 Lopressor Injection - IVPUSH Q4H PRN HYPERTENSION Ondansetron HCl 4 mg 08/11/18 16:43 Zofran Injection IVPUSH Q6H PRN NAUSEA AND/OR VOMITING Pantoprazole Sodium 20 mg 08/12/18 10:00 08/12/18 11:25 Protonix - PO 20 mg DAILY LISA Administration Polyethylene Glycol 17 gm 08/11/18 22:00 08/12/18 13:25 Miralax (For Daily Use) - PO Not Given BID LISA Senna 2 tab 08/11/18 22:00 08/11/18 21:05 Senna - PO Not Given HS LISA Sodium Chloride 2 spray 08/12/18 13:26 [place] Nasal [place] - NS BID PRN NASAL CONGESTION ASSESSMENT/PLAN: 87 yo female with PMH of a-fib (rate controlled, on eliquis), CHF, COPD (on 2L home o2), HTN, pulmonary HTN, presented to the ED with complaint of SOB with a cough productive of clear sputum for 2 days and admitted for the treatment of CHF exacerbation #PULM -Acute Hypoxic respiratory failure -improving -maintaining sats on 4L NC -keep o2>90 -duonebs -cont medrol q12h -ABG noted -am CXR #CV -Atrial fibrillation: stable, mildly tachycardic today -will resume eliquis later today if CBI is clear -Continue Toprol XL 25mg BID -troponin 2.03- demand? -repeat trop -EKG #ID -possibly reactive leukocytosis from steroids -Vanc/Zosyn ordered -ID consulted -Bcx -Ucx # -Hematuria -likely traumatic rodriguez placement -S/P Cysto on CBI -AC held, cont. Eliquis once bleeding stops -Monitor H/H and will transfuse for HG<8 #FEN: Fluids: Avoid; active diuresis Monitor electrolytes -resume diet #PPX: DVT - Eliquis on hold GI - Protonix 20mg qDaily Visit type - Emergency Visit Emergency Visit: Yes ED Registration Date: 07/25/18 Care time: The patient presented to the Emergency Department on the above date and was hospitalized for further evaluation of their emergent condition. - New Patient This patient is new to me today: Yes Date on this admission: 08/12/18 - Critical Care Critical Care patient: Yes Total Critical Care Time (in minutes): 40 Critical Care Statement: The care of this patient involved high complexity decision making to prevent further life threatening deterioration of the patient 's condition and/or to evaluate & treat vital organ system(s) failure or risk of failure.
--- NOTE | 2018-08-12 14:50 | EKG ---
Test Reason : Blood Pressure : / mmHG Vent. Rate : 113 BPM Atrial Rate : 125 BPM P-R Int : 000 ms QRS Dur : 082 ms QT Int : 308 ms P-R-T Axes : 000 -01 -12 degrees QTc Int : 422 ms ATRIAL FIBRILLATION WITH RAPID VENTRICULAR RESPONSE ABNORMAL ECG WHEN COMPARED WITH ECG OF 11-AUG-2018 19:34, NO SIGNIFICANT CHANGE WAS FOUND Confirmed by MD Catrer, Kapil ([id number]) on 08/12/2018 2:50:25 PM Referred By: Chloe AGUILAR Confirmed By:Kapil Machado MD
--- NOTE | 2018-08-12 14:59 | EKG ---
Test Reason : Blood Pressure : / mmHG Vent. Rate : 102 BPM Atrial Rate : 187 BPM P-R Int : 000 ms QRS Dur : 084 ms QT Int : 380 ms P-R-T Axes : 000 -02 -01 degrees QTc Int : 495 ms ATRIAL FIBRILLATION WITH RAPID VENTRICULAR RESPONSE NONSPECIFIC ST ABNORMALITY ABNORMAL ECG WHEN COMPARED WITH ECG OF 06-AUG-2018 12:21, NO SIGNIFICANT CHANGE WAS FOUND Confirmed by MD Carter, Kapil ([id number]) on 08/12/2018 2:58:51 PM Referred By: Confirmed By:Kapil Machado MD
[2018-08-12] MEDS: CEFEPIME 1 GM in DEXTROSE 5%-WATER - 100 ML IVPB SCH ×2 (15:13→21:38)
[2018-08-12] MEDS: METOPROLOL TARTRATE 5 MG/5 ML VIAL IVPUSH PRN ×2 (16:12→22:30)
[2018-08-12] MEDS: SENNOSIDES 8.6MG TABLET (FP) PO SCH (21:38)
[2018-08-13] MEDS: METOPROLOL TARTRATE 5 MG/5 ML VIAL IVPUSH SCH ×5 (05:09→21:07)
[2018-08-13 05:49] LABS: HEMATOCRIT 28.8 % (32.4-45.2); HEMOGLOBIN 8.8 GM/dL (10.7-15.3); MCH 20.4 pg (25.7-33.7); MCHC 30.7 g/dl (32.0-36.0); MEAN CELL VOLUME 66.6 fl (80-96); MEAN PLT VOLUME 10.8 fl (7.5-11.1); PLATELET COUNT 169 K/MM3 (134-434); RBC 4.33 M/mm3 (3.60-5.2); RDW 17.8 % (11.6-15.6)
[2018-08-13 06:02] LABS: WHITE BLOOD COUNT 39.3 K/mm3 (4.0-10.0)
[2018-08-13 06:24] LABS: ALBUMIN 1.9 g/dl (3.4-5.0); ALK PHOS 67 U/L (45-117); ANION GAP 13 MMOL/L (8-16); BILIRUBIN,TOTAL 0.8 mg/dL (0.2-1); BLOOD UREA NITROGEN 68 mg/dL (7-18); CHLORIDE 86 mmol/L (98-107); CO2 33 mmol/L (21-32); CREATININE 2.9 mg/dL (0.55-1.3); GLUCOSE,RANDOM 247 mg/dL (74-106); MAGNESIUM 2.4 mg/dL (1.8-2.4); POTASSIUM 4.7 mmol/L (3.5-5.1); SGOT/AST 29 U/L (15-37); SGPT/ALT 22 U/L (13-61); SODIUM 132 mmol/L (136-145); TOT PROT 5.4 g/dl (6.4-8.2)
[2018-08-13] MEDS: INSULIN SLIDING SCALE (NOVOLOG) 1 VIAL SQ SCH ×4 (06:51→21:52)
--- NOTE | 2018-08-13 07:38 | PN ---
Progress Note (short form) - Note Progress Note: c/o feeling tired. denies Cp, SOB, fever, chills, N/V/C/D was on bipap overnight due to hypoxia. Current Medications Generic Name Dose Route Start Last Admin Trade Name Freq PRN Reason Stop Dose Admin Albuterol Sulfate 1 amp 08/11/18 19:31 08/12/18 01:24 Ventolin 0.083% Nebulizer Soln - NEB 1 amp Q6H PRN Administration SHORT OF BREATH/WHEEZING Albuterol/Ipratropium 1 amp 08/11/18 20:00 08/12/18 19:54 Duoneb - NEB 1 amp RQID LISA Administration Budesonide/Formoterol Fumarate 2 puff 08/11/18 22:00 08/12/18 21:38 Symbicort 160/4.5mcg - IH 2 pfu BID LISA Administration Potassium Chloride/Sodium Chloride 20 meq in 1,000 mls @ 75 mls/hr 08/12/18 11 :30 08/12/18 13:22 Ns+20 Meq Kcl - IV 75 mls/hr ASDIR LISA Administration Vancomycin HCl 1,000 mg in 250 mls @ 166.667 mls/hr 08/12/18 13:00 08/12/18 13:22 Vancomycin (Pre-Docked) IVPB 166.667 mls/hr DAILY@1300 LISA Administration Protocol Cefepime HCl 1 gm/ Dextrose 100 mls @ 200 mls/hr 08/12/18 12:30 08/12/18 21: 38 IVPB 200 mls/hr BID LISA Administration Protocol Insulin Aspart 1 vial 08/11/18 22:00 08/13/18 06:51 Novolog Vial Sliding Scale - SQ 6 units ACHS LISA Administration Protocol Methylprednisolone Sodium Succinate 40 mg 08/12/18 22:00 08/12/18 21:38 Solu-Medrol - IVPUSH 40 mg BID LISA Administration Metoprolol Tartrate 5 mg 08/12/18 12:00 08/13/18 06:22 Lopressor Injection - IVPUSH 5 mg Q6H LISA Administration Metoprolol Tartrate 5 mg 08/12/18 12:00 08/12/18 22:30 Lopressor Injection - IVPUSH 5 mg Q4H PRN Administration HYPERTENSION Ondansetron HCl 4 mg 08/11/18 16:43 Zofran Injection IVPUSH Q6H PRN NAUSEA AND/OR VOMITING Pantoprazole Sodium 20 mg 08/12/18 10:00 08/12/18 11:25 Protonix - PO 20 mg DAILY LISA Administration Polyethylene Glycol 17 gm 08/11/18 22:00 08/12/18 21:38 Miralax (For Daily Use) - PO Not Given BID LISA Senna 2 tab 08/11/18 22:00 08/12/18 21:38 Senna - PO Not Given HS LISA Sodium Chloride 2 spray 08/12/18 13:26 08/12/18 15:14 [place] Nasal [place] - NS 2 spray BID PRN Administration NASAL CONGESTION Last Vital Signs Temp Pulse Resp BP Pulse Ox 98.2 F 107 H 24 H 138/84 94 L 08/13/18 00:00 08/13/18 06:22 08/13/18 06:00 08/13/18 06:22 08/13/18 06:59 Intake & Output 08/10/18 08/11/18 08/12/18 08/13/18 23:59 23:59 23:59 23:59 Intake Total 1070 7050 30901 4900 Output Total 6200 98420 5600 Balance 4694 916 8659 -700 Weight 149 lb 3.2 oz 151 lb 6 oz 153 lb 14.122 oz General lethargic but easily arrousable. very weak lungs scattered rhonchi. minimal wheezing. poor inspiratory effort abdomen soft NT/ND no flank pain Extremities no pedal edema CBCD WBC 39.3 K/mm3 (4.0-10.0) H* 08/13/18 05:30 RBC 4.33 M/mm3 (3.60-5.2) 08/13/18 05:30 Hgb 8.8 GM/dL (10.7-15.3) L 08/13/18 05:30 Hct 28.8 % (32.4-45.2) L 08/13/18 05:30 MCV 66.6 fl (80-96) L 08/13/18 05:30 MCHC 30.7 g/dl (32.0-36.0) L 08/13/18 05:30 RDW 17.8 % (11.6-15.6) H 08/13/18 05:30 Plt Count 169 K/MM3 (134-434) 10/28/18 05:30 MPV 10.8 fl (7.5-11.1) 08/13/18 05:30 CMP Sodium 132 mmol/L (136-145) L 08/13/18 05:30 Potassium 4.7 mmol/L (3.5-5.1) 08/13/18 05:30 Chloride 86 mmol/L (98-107) L 08/13/18 05:30 Carbon Dioxide 33 mmol/L (21-32) H 08/13/18 05:30 Anion Gap 13 MMOL/L (8-16) 08/13/18 05:30 BUN 68 mg/dL (7-18) H 08/13/18 05:30 Creatinine 2.9 mg/dL (0.55-1.3) H 08/13/18 05:30 Creat Clearance w eGFR 15.31 (>60) 08/13/18 05:30 Calcium 8.0 mg/dL (8.5-10.1) L 08/13/18 05:30 Total Bilirubin 0.8 mg/dL (0.2-1) 08/13/18 05:30 AST 29 U/L (15-37) 08/13/18 05:30 ALT 22 U/L (13-61) 08/13/18 05:30 Alkaline Phosphatase 67 U/L (45-117) 08/13/18 05:30 Total Protein 5.4 g/dl (6.4-8.2) L 08/13/18 05:30 Albumin 1.9 g/dl (3.4-5.0) L 08/13/18 05:30 Microbiology 08/12/18 13:45 Blood Culture - Preliminary Blood - Peripheral Venous Pending Organism 08/11/18 14:46 Urine Culture - Preliminary Urine - Urine, Via Cystoscope Staphylococcus Latex Coag Pos 08/11/18 20:45 Blood Culture - Preliminary Blood - Peripheral Venous Staphylococcus Latex Coag Pos 08/11/18 20:30 Blood Culture - Preliminary Blood - Peripheral Venous Staphylococcus Latex Coag Pos 08/12/18 13:40 Blood Culture - Preliminary Blood - Peripheral Venous Pending Organism ASSESSMENT AND PLAN: 81 yo F with PMhx of sarcoidosis diagnosed in 1985, Chronic diastolic HF, severe pulmonary HTN, COPD on 2L home oxygen, AFib on eliquis, HTN, HLD, frequent admissions with CHF/respiratory distress admitted with acute hypercapneic/hypoxic respiratory failure, CHF exaerbation. Course complicated by development of hematuria. Cystoscopy was done where pt developed hypotension requiring pressors and was placed iN ICU. 1. Acute hypercapneic/hypoxic respiratory failure-due to CHF and COPD exacerbation. poor inspiratory effort. was on bipap overnight due to hypoxia. currently 100% on 2L NC. will cont to monitor re-start bipap if needed. chest pt, Nebs and inhalers. pulmonary and cardio on board 2. Acute diastolic heart failure exacerbation-lasix now on hold due. clinically euvolemic. will hold lasix. monitor weights closely as retains water easily while on IV steroids. Monitor electrolytes, daily weights, cardio on board 3. Hematuria- likely traumatic. large clot noted on cystoscopy done on 08/11. CBI running. very light pink noted in the bag. Hgb slowly trending down. will monitor closely. trend CBC. Txn for <8. further rodriguez management per Urology 4. Hypotension- possible due to sedation during the procedure. Received dose of Vaso and epi post-operatively. has not require ggt. Vitals have been stable. will cont to monitor 5. SANAM- due to hypoperfusion. as been stable this hospital course. on gentle hydration. avoid nephrotoxic agents. doubt this is from R hydro as pt had and no signs of SANAM prior to procedure. 6. Tropinemia- TNI peakes at 2. likely due to hypoperfusion from procedure. no indication for workup at this time 7. afib- uncontrolled. home dose has been held. will re-start at thsi time. titrate as needed to optimize HR. holding NOAC at this time in setting of bleeding. will re-start when determined safe by urology. 8. Bacteremia- Sepsis workup sent due to spike in leuykocytopsis. now on cefepime and Vanco day 3. check vano level daily in seting of SANAM. ID on board 9. 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 Sarcoidosis 12. COPD on 2L home oxygen 13. HTN 14. dyslipidemia 15. DVT ppx- hold anticoagulation. SCD 16. MICU monitoring Visit type - Emergency Visit Emergency Visit: Yes ED Registration Date: 07/25/18 Care time: The patient presented to the Emergency Department on the above date and was hospitalized for further evaluation of their emergent condition. - New Patient This patient is new to me today: No - Critical Care Critical Care patient: Yes Total Critical Care Time (in minutes): 45 Critical Care Statement: The care of this patient involved high complexity decision making to prevent further life threatening deterioration of the patient 's condition and/or to evaluate & treat vital organ system(s) failure or risk of failure. - Discharge Referral Referred to [facility] No
[2018-08-13 07:48] LABS: ARTERIAL BLD GAS O2 SATURATION 98.2 % (90-98.9); ARTERIAL BLOOD GAS BASE EXCESS 9.8 meq/l (-2-2); ARTERIAL BLOOD GAS PCO2 44.4 mmHg (35-45)
[2018-08-13 07:52] LABS: ALLENS TEST POSITIVE
[2018-08-13] MEDS: ALBUTEROL SO4 2.5/IPRATROPIUM 0.5 INH SOL 3 ML VIAL.NEB. NEB SCH ×4 (08:21→20:48)
[2018-08-13] MEDS ORDERED: PT OWN MED DRAWER 7, Y5N ONE (08:35)
[2018-08-13] MEDS ORDERED: ACETAMINOPHEN 1000 MG/100 ML VIAL (NON FORMULARY) IVPB ONE ×2 (08:53→16:49)
[2018-08-13] MEDS: POLYETHYLENE GLYCOL 3350 119 GM BTL PO SCH ×2 (09:01→21:51)
[2018-08-13] MEDS: CEFEPIME 1 GM in DEXTROSE 5%-WATER - 100 ML IVPB SCH (09:01)
[2018-08-13] MEDS: methylPREDNISolone NA SUCC 40 MG/1 ML VIAL IVPUSH SCH (09:01)
[2018-08-13] MEDS: PANTOPRAZOLE 20 MG TABLET (FP) PO SCH (09:01)
[2018-08-13] MEDS: BUDESONIDE/FORMETEROL FUMARATE 160/4.5 mcg INHALER IH SCH ×2 (09:02→21:53)
[2018-08-13] MEDS ORDERED: SODIUM CHLORIDE 0.9%/KCL 20 MEQ/1,000 ML INFUS.BAG IV SCH (09:06)
--- NOTE | 2018-08-13 09:11 | PN ---
Progress Note, Physician Chief Complaint: hypotension History of Present Illness: not opening eyes, speaking brief answers to questions, sometimes appropriate not always. denies cp, sob, palpit, dizzy - Current Medication List Current Medications: Active Medications Acetaminophen (Ofirmev Injection -) 1,000 mg IVPB ONCE ONE Stop: 08/13/18 08:54 Last Admin: 08/13/18 09:00 Dose: 1,000 mg Albuterol Sulfate (Ventolin 0.083% Nebulizer Soln -) 1 amp NEB Q6H PRN PRN Reason: SHORT OF BREATH/WHEEZING Last Admin: 08/12/18 01:24 Dose: 1 amp Albuterol/Ipratropium (Duoneb -) 1 amp NEB RQID [facility] Last Admin: 08/13/18 08:21 Dose: 1 amp Budesonide/Formoterol Fumarate (Symbicort 160/4.5mcg -) 2 puff IH BID [facility] Last Admin: 08/13/18 09:02 Dose: 2 pfu Vancomycin HCl (Vancomycin (Pre-Docked)) 1,000 mg in 250 mls @ 166.667 mls/hr IVPB DAILY@1300 LISA; Protocol Last Admin: 08/12/18 13:22 Dose: 166.667 mls/hr Cefepime HCl 1 gm/ Dextrose 100 mls @ 200 mls/hr IVPB BID [facility]; Protocol Last Admin: 08/13/18 09:01 Dose: 200 mls/hr Insulin Aspart (Novolog Vial Sliding Scale -) 1 vial SQ ACHS [facility]; Protocol Last Admin: 08/13/18 06:51 Dose: 6 units Methylprednisolone Sodium Succinate (Solu-Medrol -) 40 mg IVPUSH BID [facility] Last Admin: 08/13/18 09:01 Dose: 40 mg Metoprolol Succinate (Toprol Xl -) 25 mg PO BID [facility] Metoprolol Tartrate (Lopressor Injection -) 5 mg IVPUSH Q4H PRN PRN Reason: HYPERTENSION Last Admin: 08/12/18 22:30 Dose: 5 mg Ondansetron HCl (Zofran Injection) 4 mg IVPUSH Q6H PRN PRN Reason: NAUSEA AND/OR VOMITING Pantoprazole Sodium (Protonix -) 20 mg PO DAILY [facility] Last Admin: 08/13/18 09:01 Dose: 20 mg Polyethylene Glycol (Miralax (For Daily Use) -) 17 gm PO BID [facility] Last Admin: 08/13/18 09:01 Dose: 17 grams Senna (Senna -) 2 tab PO HS [facility] Last Admin: 08/12/18 21:38 Dose: Not Given Sodium Chloride ([place] Nasal [place] -) 2 spray NS BID PRN PRN Reason: NASAL CONGESTION Last Admin: 08/12/18 15:14 Dose: 2 spray - Objective Vital Signs: Vital Signs Temperature 98.2 F 08/13/18 00:00 Pulse Rate 109 H 08/13/18 07:39 Respiratory Rate 22 H 08/13/18 07:39 Blood Pressure 127/77 08/13/18 07:39 O2 Sat by Pulse Oximetry (%) 94 L 08/13/18 06:59 Constitutional: Yes: Well Nourished, No Distress, Calm Cardiovascular: Yes: Pulse Irregular, S1, S2. No: JVD, Gallop, Murmur Respiratory: Yes: Regular, CTA Bilaterally (not taking deep breaths). No: Accessory Muscle Use, Wheezes Extremities: No: Cold Edema: No Neurological: Yes: Alert. No: Seizure Psychiatric: No: Agitated Labs: CBC, BMP 08/13/18 05:30 08/13/18 05:30 Assessment/Plan CXR: no acute process Echo 05/03: nl LVEF. mild RVE, mild-mod RV hypo. L/NEENA. mod MR/TR. RVSP at least 88 mmHg Echo 03/2017: Mild conc lvh. nl lv/rv size/fn, mod ronnie, mod mr, mod tr, rvsp 40- 50 EKG: afib with PVCs tele: afib freq to 120s > 140s hypotension: -periop hypotension 08/11 during cysto, briefly on pressors--transferred to icu for monitoring -likely due to sedatives on top of fixed low cardiac output state (sec to cor pulm). possibly compounded by overdiuresis--? RV is preload dependent here. -currently hemodynamically stable -check troponin SANAM: -? sec to sepsis, ? sec to acute hypoperfusion when hypotensive 08/11, ? 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 initially 158 here. -cont lasix iv 80 bid -07/29: Creat 0.6 and weight down to 162, continue current lasix regimen -07/30: Creat 0.8, K 3.4, Wt 161. Continue current lasix regimen, replete K -07/31: 161 lbs. -08/01: wt 160 lbs, cont same -08/02-: appears euvolemic. was on lasix 40 qd at home. transitioned 80 iv bid to 80 qd -08/06: iv steroids continue and now dose increased. wt up a bit as well, restarted lasix 80 mg IV BID - 08/07-: weight continues to decrease, sob improving, Cr stable, still on IV steroids. Continue lasix 80 mg IV BID while on IV steroids. plan change to po lasix 80 daily when on po steroids. - 08/12: hypotensive during cystoscopy, looks dry clinically. SANAM this am. lasix on hold, gentle IVF--observe chf status closely - 08/13: lactic acidosis, + staph in BCx's the past 2 days, organism awaiting ID. renal fxn worsening significantly--incr IVF rate (125 cc/hr) afib: -rapid rates initially, atenolol changed to metoprolol succinate (same dose = 25 bid) -HRs rapid now sec to ongoing sepsis, pt agitation, refusing po meds -defer CCB given concern about RV contractility depression (cor pulm pt) -BPs stable for > 24 hrs now: start low dose standing IV lopressor -if HRs rise will add digoxin -holding eliquis for now given hemorrhagic cystitis with large clots causing hydro--will resume when risk stable HTN: -bp controlled -cont current meds hematuria, obstruction with hydro: - cysto showed hemorrhagic cystitis with large amount of clot which was evacuated - CBI ongoing - eliquis on hold--resume when cleared by regarding acceptable recurrent hematuria risk est time spent in pt exam, data review, and formulating plan of potentially life threatening medical problems = 35 min
--- NOTE | 2018-08-13 09:41 | PN ---
Progress Note, Physician History of Present Illness: Awake, alert Supine in bed No acute distress Refusing oral meds Repeat BC + GPCCL Now in acute renal failure Afebrile WBC remains markedly elevated - Current Medication List Current Medications: Active Medications Albuterol Sulfate (Ventolin 0.083% Nebulizer Soln -) 1 amp NEB Q6H PRN PRN Reason: SHORT OF BREATH/WHEEZING Last Admin: 08/12/18 01:24 Dose: 1 amp Albuterol/Ipratropium (Duoneb -) 1 amp NEB RQID [facility] Last Admin: 08/13/18 08:21 Dose: 1 amp Budesonide/Formoterol Fumarate (Symbicort 160/4.5mcg -) 2 puff IH BID [facility] Last Admin: 08/13/18 09:02 Dose: 2 pfu Vancomycin HCl (Vancomycin (Pre-Docked)) 1,000 mg in 250 mls @ 166.667 mls/hr IVPB DAILY@1300 LISA; Protocol Last Admin: 08/12/18 13:22 Dose: 166.667 mls/hr Cefepime HCl 1 gm/ Dextrose 100 mls @ 200 mls/hr IVPB BID [facility]; Protocol Last Admin: 08/13/18 09:01 Dose: 200 mls/hr Potassium Chloride/Sodium Chloride (Ns+20 Meq Kcl -) 20 meq in 1,000 mls @ 120 mls/hr IV ASDIR [facility] Last Admin: 08/13/18 09:15 Dose: Not Given Insulin Aspart (Novolog Vial Sliding Scale -) 1 vial SQ ACHS [facility]; Protocol Last Admin: 08/13/18 06:51 Dose: 6 units Methylprednisolone Sodium Succinate (Solu-Medrol -) 40 mg IVPUSH BID [facility] Last Admin: 08/13/18 09:01 Dose: 40 mg Metoprolol Tartrate (Lopressor Injection -) 5 mg IVPUSH Q4H PRN PRN Reason: HYPERTENSION Last Admin: 08/12/18 22:30 Dose: 5 mg Metoprolol Tartrate (Lopressor Injection -) 2.5 mg IVPUSH Q6H [facility] Last Admin: 08/13/18 09:11 Dose: 2.5 mg Ondansetron HCl (Zofran Injection) 4 mg IVPUSH Q6H PRN PRN Reason: NAUSEA AND/OR VOMITING Pantoprazole Sodium (Protonix -) 20 mg PO DAILY [facility] Last Admin: 08/13/18 09:01 Dose: 20 mg Polyethylene Glycol (Miralax (For Daily Use) -) 17 gm PO BID [facility] Last Admin: 08/13/18 09:01 Dose: 17 grams Senna (Senna -) 2 tab PO HS [facility] Last Admin: 08/12/18 21:38 Dose: Not Given Sodium Chloride ([place] Nasal [place] -) 2 spray NS BID PRN PRN Reason: NASAL CONGESTION Last Admin: 08/12/18 15:14 Dose: 2 spray - Objective Vital Signs: Vital Signs Temperature 98.2 F 08/13/18 00:00 Pulse Rate 107 H 08/13/18 09:11 Respiratory Rate 22 H 08/13/18 07:39 Blood Pressure 128/65 08/13/18 09:11 O2 Sat by Pulse Oximetry (%) 94 L 08/13/18 06:59 Constitutional: Yes: No Distress Eyes: Yes: Conjunctiva Clear Cardiovascular: Yes: Regular Rate and Rhythm, Tachycardia, S1, S2 Respiratory: Yes: CTA Bilaterally Gastrointestinal: Yes: Normal Bowel Sounds, Soft. No: Tenderness Edema: Yes Edema: LLE: 1+, RLE: 1+ Labs: CBC, BMP 08/13/18 05:30 08/13/18 05:30 Assessment/Plan Staph bacteremia/ sepsis Sepsis Acute renal failure Leukocytosis Lactic acidosis Hemorrhagic cystitis COPD CHF Hold vancomycin Check random vancomycin level Echocardiogram
[2018-08-13] MEDS ORDERED: metoPROLOL SUCCINATE 25 MG TAB.SR.24H (FP) PO SCH (10:00)
--- NOTE | 2018-08-13 10:53 | PN ---
Teaching Attending Note Name of Resident: Carlie Anderson ATTENDING PHYSICIAN STATEMENT I saw and evaluated the patient. I reviewed the resident's note and discussed the case with the resident. I agree with the resident's findings and plan as documented. SUBJECTIVE: Pt seen and examined in the ICU. Somnolent but arousable. Refusing PO meds. On BiPAP overnight. Blood cultures growing staph. OBJECTIVE: Vital Signs Period Temp Pulse Resp BP Sys/Garza Pulse Ox Last 24 Hr 98.2 F-98.8 F 100-134 - 123-160/64-127 94-100 Intake & Output 08/10/18 08/11/18 08/12/18 08/13/18 23:59 23:59 23:59 23:59 Intake Total 1070 7050 56080 4900 Output Total 6200 68602 5600 Balance 3470 969 7558 -700 Weight 67.676 kg 68.663 kg 69.8 kg Gen: somnolent but arousable Heart: RRR Lung: scattered rhonchi Abd: soft, nontender Ext: no edema CBC, BMP 08/13/18 05:30 08/13/18 05:30 Active Medications Albuterol Sulfate (Ventolin 0.083% Nebulizer Soln -) 1 amp NEB Q6H PRN PRN Reason: SHORT OF BREATH/WHEEZING Last Admin: 08/12/18 01:24 Dose: 1 amp Albuterol/Ipratropium (Duoneb -) 1 amp NEB RQID [facility] Last Admin: 08/13/18 08:21 Dose: 1 amp Budesonide/Formoterol Fumarate (Symbicort 160/4.5mcg -) 2 puff IH BID [facility] Last Admin: 08/13/18 09:02 Dose: 2 pfu Potassium Chloride/Sodium Chloride (Ns+20 Meq Kcl -) 20 meq in 1,000 mls @ 120 mls/hr IV ASDIR [facility] Last Admin: 08/13/18 09:15 Dose: Not Given Insulin Aspart (Novolog Vial Sliding Scale -) 1 vial SQ ACHS [facility]; Protocol Last Admin: 08/13/18 06:51 Dose: 6 units Methylprednisolone Sodium Succinate (Solu-Medrol -) 40 mg IVPUSH BID [facility] Last Admin: 08/13/18 09:01 Dose: 40 mg Metoprolol Tartrate (Lopressor Injection -) 5 mg IVPUSH Q4H PRN PRN Reason: HYPERTENSION Last Admin: 08/12/18 22:30 Dose: 5 mg Metoprolol Tartrate (Lopressor Injection -) 2.5 mg IVPUSH Q6H [facility] Last Admin: 08/13/18 09:11 Dose: 2.5 mg Ondansetron HCl (Zofran Injection) 4 mg IVPUSH Q6H PRN PRN Reason: NAUSEA AND/OR VOMITING Pantoprazole Sodium (Protonix -) 20 mg PO DAILY [facility] Last Admin: 08/13/18 09:01 Dose: 20 mg Polyethylene Glycol (Miralax (For Daily Use) -) 17 gm PO BID [facility] Last Admin: 08/13/18 09:01 Dose: 17 grams Senna (Senna -) 2 tab PO HS [facility] Last Admin: 08/12/18 21:38 Dose: Not Given Sodium Chloride ([place] Nasal [place] -) 2 spray NS BID PRN PRN Reason: NASAL CONGESTION Last Admin: 08/12/18 15:14 Dose: 2 spray ASSESSMENT AND PLAN: Acute on Chronic Hypoxic and Hypercapneic Respiratory Failure clinically improving Acute on Chronic Diastolic Heart Failure Acute COPD Exacerbation Sarcoidosis Severe Pulmonary HTN Atrial Fibrillation HTN Hyperlipidemia Hematuria s/p Cystoscopy Staph Bacteremia Sepsis Acute Kidney Injury - antibiotics per ID - f/u cultures - echocardiogram - continue CBI - decrease medrol to daily - inhaled bronchodilators - O2 to keep SpO2>90% - IVF - monitor urine output, creatinine - rate control - anticoagulation when ok with urology - continue ICU monitoring critical care time spent in reviewing chart, evaluating patient and formulating plan 35 min
--- NOTE | 2018-08-13 12:09 | PN ---
Physical Exam: SUBJECTIVE: Patient seen and examined this morning. Reports of having abdominal pain, located diffusely, 5/10 in intensity, non radiating. Also started to have tremors mostly in her head and upper extremities. Pt states she doesn't have any h/o tremors, no h/o seizures. On Bipap overnight, currently tolerating well on Nasal canula. Has been refusing all PO meds. PM: Patient has been feeling uncomfortable, has been reporting abdominal pain, b /l lower ext pain. Also was in respiratory distress so started on Bipap this afternoon. OBJECTIVE: Vital Signs Period Temp Pulse Resp BP Sys/Garza Pulse Ox Last 24 Hr 98.2 F-98.8 F 100-134 18-26 123-160/64-127 94-100 GENERAL: Elderly female, sitting in bed, is awake, alert, and fully oriented, in mild abdominal pain, rodriguez in place- still pink in color. HEAD: Normal with no signs of trauma. EYES: EOM intact, no pallor or icterus. ENT: Ears normal, moist mucous membranes. NECK: Supple. LUNGS: B/L decreased breath sounds, bibasilar crackles, no accessory muscle use. HEART: Regular rate and rhythm, S1, S2 without murmur, rub or gallop. ABDOMEN: Soft, tenderness diffusely, no organomegaly, BS + EXTREMITIES: 2+ pulses, warm, well-perfused, no edema. NEUROLOGICAL: No facial droop. Normal speech, gait not observed. PSYCH: Normal mood, normal affect. SKIN: Warm, dry, normal turgor, no rashes or lesions noted Laboratory Results - last 24 hr 08/12/18 08/12/18 08/12/18 05:30 13:40 16:24 WBC RBC Hgb Hct MCV MCH MCHC RDW Plt Count MPV Puncture Site ABG pH ABG pCO2 at Pt Temp ABG pO2 at Pt Temp ABG HCO3 ABG O2 Sat (Measured) ABG O2 Content ABG Base Excess Junior Test O2 Delivery Device Oxygen Flow Rate Vent Rate Mechanical Rate Pressure Support Vent Sodium Potassium Chloride Carbon Dioxide Anion Gap BUN Creatinine Creat Clearance w eGFR POC Glucometer [phone] Random Glucose Calcium Phosphorus Magnesium Total Bilirubin AST ALT Alkaline Phosphatase Troponin I 2.03 H* 1.21 H* Total Protein Albumin 08/12/18 08/12/18 08/13/18 21:30 23:37 05:30 WBC 39.3 H* RBC 4.33 Hgb 8.8 L Hct 28.8 L MCV 66.6 L MCH 20.4 L MCHC 30.7 L RDW 17.8 H Plt Count 169 MPV 10.8 Puncture Site ABG pH ABG pCO2 at Pt Temp ABG pO2 at Pt Temp ABG HCO3 ABG O2 Sat (Measured) ABG O2 Content ABG Base Excess Junior Test O2 Delivery Device Oxygen Flow Rate Vent Rate Mechanical Rate Pressure Support Vent Sodium Potassium Chloride Carbon Dioxide Anion Gap BUN Creatinine Creat Clearance w eGFR POC Glucometer [phone] Random Glucose Calcium Phosphorus Magnesium Total Bilirubin AST ALT Alkaline Phosphatase Troponin I 0.69 H* Total Protein Albumin 08/13/18 08/13/18 08/13/18 05:30 05:41 07:30 WBC RBC Hgb Hct MCV MCH MCHC RDW Plt Count MPV Puncture Site Right radial ABG pH 7.50 H ABG pCO2 at Pt Temp 44.4 ABG pO2 at Pt Temp 116.0 H ABG HCO3 33.9 H ABG O2 Sat (Measured) 98.2 ABG O2 Content 12.2 L ABG Base Excess 9.8 H Junior Test Positive O2 Delivery Device Bipap 12/5 Oxygen Flow Rate 40% Vent Rate 15 Mechanical Rate Bipap 12/5 Pressure Support Vent 12/5 Sodium 132 L Potassium 4.7 Chloride 86 L Carbon Dioxide 33 H Anion Gap 13 BUN 68 H Creatinine 2.9 H Creat Clearance w eGFR 15.31 POC Glucometer [phone] Random Glucose 247 H Calcium 8.0 L Phosphorus 6.0 H Magnesium 2.4 Total Bilirubin 0.8 AST 29 ALT 22 Alkaline Phosphatase 67 Troponin I 0.52 H Total Protein 5.4 L Albumin 1.9 L Active Medications Generic Name Dose Route Start Last Admin Trade Name Freq PRN Reason Stop Dose Admin Albuterol Sulfate 1 amp 08/11/18 19:31 08/12/18 01:24 Ventolin 0.083% Nebulizer Soln - NEB 1 amp Q6H PRN Administration SHORT OF BREATH/WHEEZING Albuterol/Ipratropium 1 amp 08/11/18 20:00 08/13/18 11:36 Duoneb - NEB 1 amp RQID ANTONIO Administration Budesonide/Formoterol Fumarate 2 puff 08/11/18 22:00 08/13/18 09:02 Symbicort 160/4.5mcg - IH 2 pfu BID ANTONIO Administration Potassium Chloride/Sodium Chloride 20 meq in 1,000 mls @ 120 mls/hr 08/13/18 09:06 08/13/18 09:15 Ns+20 Meq Kcl - IV Not Given ASDIR ANTONIO Insulin Aspart 1 vial 08/11/18 22:00 08/13/18 06:51 Novolog Vial Sliding Scale - SQ 6 units ACHS ANTONIO Administration Protocol Methylprednisolone Sodium Succinate 40 mg 08/14/18 10:00 Solu-Medrol - IVPUSH DAILY ANTONIO Metoprolol Tartrate 5 mg 08/12/18 12:00 08/12/18 22:30 Lopressor Injection - IVPUSH 5 mg Q4H PRN Administration HYPERTENSION Metoprolol Tartrate 2.5 mg 08/13/18 09:15 08/13/18 09:11 Lopressor Injection - IVPUSH 2.5 mg Q6H ANTONIO Administration Ondansetron HCl 4 mg 08/11/18 16:43 Zofran Injection IVPUSH Q6H PRN NAUSEA AND/OR VOMITING Pantoprazole Sodium 20 mg 08/12/18 10:00 08/13/18 09:01 Protonix - PO 20 mg DAILY ANTONIO Administration Polyethylene Glycol 17 gm 08/11/18 22:00 08/13/18 09:01 Miralax (For Daily Use) - PO 17 grams BID ANTONIO Administration Senna 2 tab 08/11/18 22:00 08/12/18 21:38 Senna - PO Not Given HS ANTONIO Sodium Chloride 2 spray 08/12/18 13:26 08/12/18 15:14 [place] Nasal [place] - NS 2 spray BID PRN Administration NASAL CONGESTION ASSESSMENT/PLAN: Patient is an 87 thierno old female with PMH of a-fib (rate controlled, on eliquis) , CHF, COPD (on 2L home o2), HTN, pulmonary HTN, presented to the ED with complaint of SOB with a cough productive of clear sputum for 2 days and admitted for the treatment of CHF exacerbation Pulmonary Acute hypoxic/hypercapneic respiratory failure likely secondary to CHF/COPD exacerbation Was on Bipap overnight, this morning tolerated Nasal canula. Duoneb QID Albuterol PRN Changed IV Solumedrol to 40mg IV Daily CXR in AM ID Baceteremia (Positive blood cultures 08/11 and 08/12) likely from a UTI urine culture positive for Staph. Repeat urine cultures ordered today. Received Vancomycin 1gm yesterday, currently on hold due to SANAM, will send Vanc trough now. IV Cefepime received yesterday, abx as per Dr. Garcia. IV fluids increased to 125mls.hr Cardiovascular Atrial fibrillation-rate controlled IV Metoprolol 2.5 mg Q6H Antonio (patient refusing to take PO) Eliquis on hold due to hemorrahagic cystitis Troponin increased likely demand ischemia Trop 0.69-->0.52---> repeat stat EKG: no sig ST or T wave changes Hemorrahagic cystitis Patient underwent cystoscopy 08/11/2018 for gross hematuria,clot retention, rt. hydronephrosis still draining pink colored urine, H/H is stable. Eliquis is on hold Renal SANAM likely prerenal Creatinine 2.9 (Baseline 0.8), increased within a day. Avoid nephrotoxic drugs IV NS @ 125 mls/hr. FEN IV NS @ 125 mls.hr Fluids: Avoid; active diuresis Monitor electrolytes -resume diet Prophylaxis For DVT - Eliquis on hold, on scds For GI: IV Protonix Code status: Full Code Dispo: Admitted in ICU. Will monitor in ICU overnight. Illness ,Investigation and Plan of care explained to the patient and her granddaughter (HCP). They verbalized understanding. Case seen and discussed with Dr. Espinosa. Visit type - Emergency Visit Emergency Visit: Yes ED Registration Date: 07/25/18 Care time: The patient presented to the Emergency Department on the above date and was hospitalized for further evaluation of their emergent condition. - New Patient This patient is new to me today: No - Critical Care Critical Care patient: Yes Total Critical Care Time (in minutes): 35 Critical Care Statement: The care of this patient involved high complexity decision making to prevent further life threatening deterioration of the patient 's condition and/or to evaluate & treat vital organ system(s) failure or risk of failure. - Discharge Referral Referred to [facility] Med P.C.: No
[2018-08-13] MEDS: SODIUM CHLORIDE 1,000 ML IV SCH (17:12)
[2018-08-13 18:46] LABS: ARTERIAL BLD GAS O2 SATURATION 97.4 % (90-98.9); ARTERIAL BLOOD GAS PCO2 41.1 mmHg (35-45); ARTERIAL BLOOD GAS pH 7.48 (7.35-7.45)
[2018-08-13] MEDS ORDERED: HEMOQUE TEST 1 EACH EACH ONE (21:26)
[2018-08-13] MEDS: SENNOSIDES 8.6MG TABLET (FP) PO SCH (21:52)
[2018-08-14] MEDS: METOPROLOL TARTRATE 5 MG/5 ML VIAL IVPUSH SCH ×5 (03:00→23:54)
[2018-08-14 06:08] LABS: ALK PHOS 73 U/L (45-117); ANION GAP 15 MMOL/L (8-16); BILIRUBIN,TOTAL 0.8 mg/dL (0.2-1); BLOOD UREA NITROGEN 84 mg/dL (7-18); CHLORIDE 91 mmol/L (98-107); CO2 29 mmol/L (21-32); CREATININE 3.8 mg/dL (0.55-1.3); GLUCOSE,RANDOM 185 mg/dL (74-106); MAGNESIUM 2.3 mg/dL (1.8-2.4); PHOSPHOROUS 6.2 mg/dL (2.5-4.9); POTASSIUM 5.3 mmol/L (3.5-5.1); SGOT/AST 23 U/L (15-37); SGPT/ALT 15 U/L (13-61); SODIUM 135 mmol/L (136-145); TOT PROT 5.7 g/dl (6.4-8.2)
[2018-08-14 06:09] LABS: BASO % 0.1 % (0-2.0); HEMATOCRIT 28.2 % (32.4-45.2); HEMOGLOBIN 8.6 GM/dL (10.7-15.3); LYMPH % 1.4 % (8-40); MCH 20.4 pg (25.7-33.7); MCHC 30.6 g/dl (32.0-36.0); MEAN CELL VOLUME 66.6 fl (80-96); MEAN PLT VOLUME 10.2 fl (7.5-11.1); MONO % 4.1 % (3.8-10.2); NEUT % 94.4 % (42.8-82.8); PLATELET COUNT 171 K/MM3 (134-434); RBC 4.23 M/mm3 (3.60-5.2)
[2018-08-14] MEDS ORDERED: MORPHINE SULFATE 2 MG/ML VIAL IVPUSH ONE (06:35)
[2018-08-14] MEDS: INSULIN SLIDING SCALE (NOVOLOG) 1 VIAL SQ SCH ×4 (06:47→21:28)
[2018-08-14 07:53] LABS: WHITE BLOOD COUNT 36.4 K/mm3 (4.0-10.0)
[2018-08-14] MEDS: ALBUTEROL SO4 2.5/IPRATROPIUM 0.5 INH SOL 3 ML VIAL.NEB. NEB SCH ×4 (08:34→20:50)
[2018-08-14] MEDS: BUDESONIDE/FORMETEROL FUMARATE 160/4.5 mcg INHALER IH SCH ×2 (09:10→21:28)
[2018-08-14] MEDS: POLYETHYLENE GLYCOL 3350 119 GM BTL PO SCH ×2 (09:11→21:31)
[2018-08-14] MEDS: methylPREDNISolone NA SUCC 40 MG/1 ML VIAL IVPUSH SCH (09:19)
[2018-08-14] MEDS: SODIUM CHLORIDE 1,000 ML IV SCH ×2 (09:24→17:28)
[2018-08-14] MEDS ORDERED: APIXABAN 5 MG TABLET PO SCH (10:00)
[2018-08-14] MEDS ORDERED: ACETAMINOPHEN 1000 MG/100 ML VIAL (NON FORMULARY) IVPB ONE (10:15)
--- NOTE | 2018-08-14 10:29 | ECHO ---
Name: SAVI OREILLYY Exam:Adult Echocardiogram Study Date: 08/14/2018 08:29 AM Age: 87 yrs Reason For Study: R/O Endocarditis Height: 62 in Weight: 153 lb BSA: 1.7 m2 BP: 136/84 mmHg MMode/2D Measurements & Calculations IVSd: 1.1 cm Ao root diam: 2.7 cm LVIDd: 3.7 cm LA dimension: 4.7 cm LVIDs: 2.5 cm LVPWd: 1.1 cm EDV(Teich): 59.6 ml LVOT diam: 2.0 cm ESV(Teich): 22.2 ml LAV (MOD-bp): 112.0 ml TAPSE: 1.1 cm RV S Sohail: 10.3 cm/sec Doppler Measurements & Calculations MV E max sohail: 112.0 cm/sec MR max sohail: 539.6 cm/sec MR max P.7 mmHg TR max sohail: 377.6 cm/sec Med Peak E' Sohail: 5.9 cm/sec TR max P.8 mmHg Med E/e': 19.1 Lat Peak E' Sohail: 9.4 cm/sec Lat E/e': 12.0 Procedure A complete two-dimensional transthoracic echocardiogram was performed (2D, M-mode, Doppler and color flow Doppler). Technically limited study. Left Ventricle The left ventricle is normal in size. Left ventricular systolic function is normal. Ejection Fraction = 60- 65%. The transmitral spectral Doppler flow pattern is suggestive of restrictive physiology. Ratio E/E '= 19. No regional wall motion abnormalities noted. Right Ventricle The right ventricle is normal size. The right ventricular systolic function is normal. RV systolic TD I is 10 cm/s. Atria The left atrium is moderately dilated. LA volume index is 65 ml/m2. The right atrium is moderately di lated. Mitral Valve The mitral valve is normal in structure and function. There is moderate mitral regurgitation. Tricuspid Valve The tricuspid valve is normal in structure and function. There is moderate tricuspid regurgitation. P ulmonary artery systolic pressure is at least 74 mmHg assuming RA pressure of 3 mmHg. Aortic Valve The aortic valve is normal in structure and function. No aortic regurgitation is present. Pulmonic Valve The pulmonic valve is not well visualized. Great Vessels The aortic root is normal size. Pericardium/Pleura Small pericardial effusion (<1cm). Interpretation Summary Technically limited study The left ventricle is normal in size. Left ventricular systolic function is normal. No regional wall motion abnormalities noted. Ejection Fraction = 60-65%. The transmitral spectral Doppler flow pattern is suggestive of restrictive physiology. Ratio E/E'= 19 suggests elevated filling pressure The right ventricular systolic function is normal. The left atrium is moderate to severely dilated. LA volume index is 65 ml/m2 The right atrium is moderately dilated. There is moderate mitral regurgitation. There is moderate tricuspid regurgitation. Pulmonary artery systolic pressure is at least 74 mmHg assuming RA pressure of 3 mmHg Small pericardial effusion (<1cm) When compared to study dated 04/17/18, no significant changes were seen Farhan Simms MD 08/14/2018 10:28 AM
--- NOTE | 2018-08-14 10:34 | PN ---
Progress Note, Physician History of Present Illness: Awake, lethargic on bipap Supine in bed No acute distress BC presumed MSSA Pt in acute renal failure Afebrile WBC remains markedly elevated - Current Medication List Current Medications: Active Medications Albuterol Sulfate (Ventolin 0.083% Nebulizer Soln -) 1 amp NEB Q6H PRN PRN Reason: SHORT OF BREATH/WHEEZING Last Admin: 08/12/18 01:24 Dose: 1 amp Albuterol/Ipratropium (Duoneb -) 1 amp NEB RQID [facility] Last Admin: 08/14/18 08:34 Dose: 1 amp Apixaban (Eliquis -) 5 mg PO BID [facility] Budesonide/Formoterol Fumarate (Symbicort 160/4.5mcg -) 2 puff IH BID [facility] Last Admin: 08/14/18 09:10 Dose: 2 puff Sodium Chloride (Normal Saline -) 1,000 mls @ 125 mls/hr IV ASDIR [facility] Last Admin: 08/14/18 09:24 Dose: 125 mls/hr Insulin Aspart (Novolog Vial Sliding Scale -) 1 vial SQ ACHS [facility]; Protocol Last Admin: 08/14/18 06:47 Dose: 4 units Methylprednisolone Sodium Succinate (Solu-Medrol -) 40 mg IVPUSH DAILY [facility] Last Admin: 08/14/18 09:19 Dose: 40 mg Metoprolol Tartrate (Lopressor Injection -) 5 mg IVPUSH Q4H PRN PRN Reason: HYPERTENSION Last Admin: 08/12/18 22:30 Dose: 5 mg Metoprolol Tartrate (Lopressor Injection -) 2.5 mg IVPUSH Q6H [facility] Last Admin: 08/14/18 09:10 Dose: 2.5 mg Ondansetron HCl (Zofran Injection) 4 mg IVPUSH Q6H PRN PRN Reason: NAUSEA AND/OR VOMITING Pantoprazole Sodium (Protonix -) 20 mg PO DAILY [facility] Last Admin: 08/13/18 09:01 Dose: 20 mg Polyethylene Glycol (Miralax (For Daily Use) -) 17 gm PO BID [facility] Last Admin: 08/14/18 09:11 Dose: 17 grams Senna (Senna -) 2 tab PO HS [facility] Last Admin: 08/13/18 21:52 Dose: 2 tab Sodium Chloride ([place] Nasal [place] -) 2 spray NS BID PRN PRN Reason: NASAL CONGESTION Last Admin: 08/12/18 15:14 Dose: 2 spray - Objective Vital Signs: Vital Signs Temperature 97.7 F 08/14/18 08:00 Pulse Rate 111 H 08/14/18 10:00 Respiratory Rate 25 H 08/14/18 10:00 Blood Pressure 142/72 08/14/18 10:00 O2 Sat by Pulse Oximetry (%) 100 08/14/18 09:30 Constitutional: Yes: No Distress Eyes: Yes: Conjunctiva Clear Cardiovascular: Yes: Regular Rate and Rhythm, S1, S2. No: Murmur Respiratory: Yes: CTA Bilaterally Gastrointestinal: Yes: Normal Bowel Sounds, Soft. No: Tenderness Edema: Yes Labs: CBC, BMP 08/14/18 05:30 08/14/18 05:30 Assessment/Plan Staph bacteremia/ sepsis presumed MSSA Sepsis Acute renal failure Leukocytosis Lactic acidosis Hemorrhagic cystitis COPD CHF Substitute nafcillin Repeat BC Echocardiogram
--- NOTE | 2018-08-14 10:48 | PN ---
Progress Note, Physician Chief Complaint: resp failure, hypotension History of Present Illness: cpap on, lethargic--not communicative. calm appearing - Current Medication List Current Medications: Active Medications Albuterol Sulfate (Ventolin 0.083% Nebulizer Soln -) 1 amp NEB Q6H PRN PRN Reason: SHORT OF BREATH/WHEEZING Last Admin: 08/12/18 01:24 Dose: 1 amp Albuterol/Ipratropium (Duoneb -) 1 amp NEB RQID [facility] Last Admin: 08/14/18 08:34 Dose: 1 amp Apixaban (Eliquis -) 5 mg PO BID [facility] Budesonide/Formoterol Fumarate (Symbicort 160/4.5mcg -) 2 puff IH BID [facility] Last Admin: 08/14/18 09:10 Dose: 2 puff Sodium Chloride (Normal Saline -) 1,000 mls @ 125 mls/hr IV ASDIR [facility] Last Admin: 08/14/18 09:24 Dose: 125 mls/hr Nafcillin Sodium 2 gm/ (Dextrose) 100 mls @ 100 mls/hr IVPB Q4H-IV [facility]; Protocol Insulin Aspart (Novolog Vial Sliding Scale -) 1 vial SQ ACHS [facility]; Protocol Last Admin: 08/14/18 06:47 Dose: 4 units Methylprednisolone Sodium Succinate (Solu-Medrol -) 40 mg IVPUSH DAILY [facility] Last Admin: 08/14/18 09:19 Dose: 40 mg Metoprolol Tartrate (Lopressor Injection -) 5 mg IVPUSH Q4H PRN PRN Reason: HYPERTENSION Last Admin: 08/12/18 22:30 Dose: 5 mg Metoprolol Tartrate (Lopressor Injection -) 2.5 mg IVPUSH Q6H [facility] Last Admin: 08/14/18 09:10 Dose: 2.5 mg Ondansetron HCl (Zofran Injection) 4 mg IVPUSH Q6H PRN PRN Reason: NAUSEA AND/OR VOMITING Pantoprazole Sodium (Protonix -) 20 mg PO DAILY [facility] Last Admin: 08/13/18 09:01 Dose: 20 mg Polyethylene Glycol (Miralax (For Daily Use) -) 17 gm PO BID [facility] Last Admin: 08/14/18 09:11 Dose: 17 grams Senna (Senna -) 2 tab PO HS [facility] Last Admin: 08/13/18 21:52 Dose: 2 tab Sodium Chloride ([place]al [place] -) 2 spray NS BID PRN PRN Reason: NASAL CONGESTION Last Admin: 08/12/18 15:14 Dose: 2 spray - Objective Vital Signs: Vital Signs Temperature 97.7 F 08/14/18 08:00 Pulse Rate 111 H 08/14/18 10:00 Respiratory Rate 25 H 08/14/18 10:00 Blood Pressure 142/72 08/14/18 10:00 O2 Sat by Pulse Oximetry (%) 100 08/14/18 09:30 Constitutional: Yes: Well Nourished, No Distress, Calm Cardiovascular: Yes: Pulse Irregular, JVD (cpap on), S1, S2. No: Gallop, Murmur Respiratory: Yes: Regular, CTA Bilaterally (anteriorly). No: Accessory Muscle Use Extremities: No: Cold Edema: No Neurological: Yes: Lethargy. No: Seizure Psychiatric: No: Agitated Labs: CBC, BMP 08/14/18 05:30 08/14/18 05:30 Assessment/Plan CXR: no acute process Echo 05/03: nl LVEF. mild RVE, mild-mod RV hypo. L/NEENA. mod MR/TR. RVSP at least 88 mmHg Echo 03/2017: Mild conc lvh. nl lv/rv size/fn, mod ronnie, mod mr, mod tr, rvsp 40- 50 EKG: afib with PVCs tele: afib frequently 120s-140s hypotension, NSTEMI, staph bacteremia: -periop hypotension 08/11 during cysto, briefly on pressors--transferred to icu for monitoring -suspect due to periop bacteremia, given BCx's positive since that time -possibly compounded by overdiuresis--? RV is preload dependent here. -trop 2.0 the following day, trending down--suspect Type II AR sec to hypoperfusion/sepsis (+/- underlying stable CAD), given associated finding of bacteremia. ECG 08/[address]ressions inferior leads, improved on 08/12 tracing--cannot exclude Type I AR at time of events. -AC initially held for gross hematuria with large clots/hydronephrosis--now back on eliquis (for afib). defer ASA given ongoing risks of hematuria/clots with obstruction -BB and afib HR control as doing -hemodynamically stable, observe BPs as titrate AF meds -consider risk stratification MPI once clinically stable (if will change med mgmt approach) -defer invasive CAD mgmt approach given Type II AR > Type I here, plus pt's poor functional status with competing mortality limitations from severe lung dz , low likelihood to improve prognosis, and risks > benefits (including bleeding , AIN) SANAM: -? sec to sepsis, ? sec to acute hypoperfusion when hypotensive 08/11, ? overdiuresis component -holding lasix, IVF given -renal fxn declining precipitously -per crit care, +/- renal business analysis consultant if felt indicated afib: -rapid rates initially, atenolol changed to metoprolol succinate (same dose = 25 bid) -HRs rapid now sec to ongoing sepsis, pt agitation, refusing po meds -defer CCB given concern about RV contractility depression (cor pulm pt) -BPs stable on low dose metopr 2.5 iv q6H. 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 initially 158 here. -cont lasix iv 80 bid -07/29: Creat 0.6 and weight down to 162, continue current lasix regimen -07/30: Creat 0.8, K 3.4, Wt 161. Continue current lasix regimen, replete K -07/31: 161 lbs. -08/01: wt 160 lbs, cont same -08/02-20: appears euvolemic. was on lasix 40 qd at home. transitioned 80 iv bid to 80 qd -08/06: iv steroids continue and now dose increased. wt up a bit as well, restarted lasix 80 mg IV BID - 08/07-: weight continues to decrease, sob improving, Cr stable, still on IV steroids. Continue lasix 80 mg IV BID while on IV steroids. plan change to po lasix 80 daily when on po steroids. - 08/12: hypotensive during cystoscopy, looks dry clinically. SANAM this am. lasix on hold, gentle IVF--observe chf status closely - 08/13: lactic acidosis, + staph in BCx's the past 2 days, organism awaiting ID. renal fxn worsening significantly--incr IVF rate (125 cc/hr) - 08/14: remains non-edematous. CXR remains improved. renal fxn worsening rapidly. cont IVF HTN: -bp controlled -cont current meds hematuria, obstruction with hydro: - cysto showed hemorrhagic cystitis with large amount of clot which was evacuated - CBI ongoing est time spent in pt exam, data review, and formulating plan of potentially life threatening medical problems = 35 min
[2018-08-14 11:14] LABS: ACANTHOCYTES 1+; ANISOCYTOSIS 2+; MACROCYTOSIS 1+; OVALOCYTE 1+; PLATELET ESTIMATE NORMAL; TEAR DROP CELLS 1+; TOXIC GRANULATION 1+
[2018-08-14] MEDS: PANTOPRAZOLE 20 MG TABLET (FP) PO SCH (11:18)
[2018-08-14 11:26] LABS: LIPASE 87 U/L (73-393)
[2018-08-14] MEDS: NAFCILLIN - 2 GM in DEXTROSE 5%-WATER - 100 ML IVPB SCH ×4 (11:37→22:55)
--- NOTE | 2018-08-14 12:48 | PN ---
Teaching Attending Note Name of Resident: Jacqueline Bains ATTENDING PHYSICIAN STATEMENT I saw and evaluated the patient. I reviewed the resident's note and discussed the case with the resident. I agree with the resident's findings and plan as documented. SUBJECTIVE: Pt seen and examined in the ICU. Lethargic on BiPAP. No fevers recorded but presumptive MSSA growing in blood cultures. OBJECTIVE: Vital Signs Period Temp Pulse Resp BP Sys/Garza Pulse Ox Last 24 Hr 97.7 F-98.9 F 108-138 16-28 109-146/64-90 100-100 Intake & Output 08/11/18 08/12/18 08/13/18 08/14/18 23:59 23:59 23:59 23:59 Intake Total 7050 83740 96932 7550 Output Total 6200 43529 65247 6650 Balance 850 4794 1200 900 Weight 68.663 kg 69.8 kg 69.8 kg Gen: lethargic on BiPAP Heart: tachycardic, irregular Lung: decreased breath sounds at the bases Abd: soft, nontender Ext: no edema CBC, BMP 08/14/18 05:30 08/14/18 05:30 Active Medications Albuterol Sulfate (Ventolin 0.083% Nebulizer Soln -) 1 amp NEB Q6H PRN PRN Reason: SHORT OF BREATH/WHEEZING Last Admin: 08/12/18 01:24 Dose: 1 amp Albuterol/Ipratropium (Duoneb -) 1 amp NEB RQID [facility] Last Admin: 08/14/18 11:52 Dose: 1 amp Apixaban (Eliquis -) 5 mg PO BID [facility] Last Admin: 08/14/18 11:18 Dose: Not Given Budesonide/Formoterol Fumarate (Symbicort 160/4.5mcg -) 2 puff IH BID [facility] Last Admin: 08/14/18 09:10 Dose: 2 puff Sodium Chloride (Normal Saline -) 1,000 mls @ 125 mls/hr IV ASDIR [facility] Last Admin: 08/14/18 09:24 Dose: 125 mls/hr Nafcillin Sodium 2 gm/ (Dextrose) 100 mls @ 100 mls/hr IVPB Q4H-IV [facility]; Protocol Last Admin: 08/14/18 11:37 Dose: 100 mls/hr Insulin Aspart (Novolog Vial Sliding Scale -) 1 vial SQ ACHS [facility]; Protocol Last Admin: 08/14/18 11:39 Dose: 2 units Methylprednisolone Sodium Succinate (Solu-Medrol -) 40 mg IVPUSH DAILY [facility] Last Admin: 08/14/18 09:19 Dose: 40 mg Metoprolol Tartrate (Lopressor Injection -) 5 mg IVPUSH Q4H PRN PRN Reason: HYPERTENSION Last Admin: 08/12/18 22:30 Dose: 5 mg Metoprolol Tartrate (Lopressor Injection -) 5 mg IVPUSH Q6H [facility] Ondansetron HCl (Zofran Injection) 4 mg IVPUSH Q6H PRN PRN Reason: NAUSEA AND/OR VOMITING Pantoprazole Sodium (Protonix -) 20 mg PO DAILY [facility] Last Admin: 08/14/18 11:18 Dose: Not Given Polyethylene Glycol (Miralax (For Daily Use) -) 17 gm PO BID [facility] Last Admin: 08/14/18 09:11 Dose: 17 grams Senna (Senna -) 2 tab PO HS [facility] Last Admin: 08/13/18 21:52 Dose: 2 tab Sodium Chloride ([place] Nasal [place] -) 2 spray NS BID PRN PRN Reason: NASAL CONGESTION Last Admin: 08/12/18 15:14 Dose: 2 spray ASSESSMENT AND PLAN: Acute on Chronic Hypoxic and Hypercapneic Respiratory Failure Acute on Chronic Diastolic Heart Failure Acute COPD Exacerbation Sarcoidosis Severe Pulmonary HTN Atrial Fibrillation HTN Hyperlipidemia Hematuria s/p Cystoscopy Staph Bacteremia Sepsis Acute Kidney Injury - antibiotics per ID - f/u cultures - echocardiogram - continue CBI - continue medrol daily - inhaled bronchodilators - O2 to keep SpO2>90% - IVF - monitor urine output, creatinine - consider renal evaluation - rate control - continue anticoagulation - continue ICU monitoring - prognosis guarded critical care time spent in reviewing chart, evaluating patient and formulating plan 35 min
--- NOTE | 2018-08-14 13:53 | PN ---
Teaching Attending Note Name of Resident: Marco A Colon ATTENDING PHYSICIAN STATEMENT I saw and evaluated the patient. I reviewed the resident's note and discussed the case with the resident. I agree with the resident's findings and plan as documented. SUBJECTIVE:c/o abdominal pain. points to suprapubic region. deneis Cp, SOB, fever, chills OBJECTIVE: Last Vital Signs Temp Pulse Resp BP Pulse Ox 97.7 F 119 H 25 H 127/76 100 08/14/18 08:00 08/14/18 13:21 08/14/18 10:00 08/14/18 13:21 08/14/18 09:30 Intake & Output 08/11/18 08/12/18 08/13/18 08/14/18 23:59 23:59 23:59 23:59 Intake Total 7050 46139 72089 7550 Output Total 6200 51779 75783 6650 Balance 850 4794 1200 900 Weight 151 lb 6 oz 153 lb 14.122 oz 153 lb 14.122 oz General lethargic, slow to respond CV S1 S2 tachy irregular Lungs CTA anteriorly. no wheezing, poor inspiratory effort Abdomen soft +suprapubic tenderness no distention. BS + Extremities no pedal edema ASSESSMENT AND PLAN: 81 yo F with PMhx of sarcoidosis diagnosed in 1985, Chronic diastolic HF, severe pulmonary HTN, COPD on 2L home oxygen, AFib on eliquis, HTN, HLD, frequent admissions with CHF/respiratory distress admitted with acute hypercapneic/hypoxic respiratory failure, CHF exaerbation. Course complicated by development of hematuria. Cystoscopy was done where pt developed hypotension requiring pressors and was placed iN ICU. 1. Acute hypercapneic/hypoxic respiratory failure-due to CHF and COPD exacerbation. currently 99% on 1L NC. on bipap overnight. medrol 40mg daily. chest pt, Nebs and inhalers. pulmonary and cardio on board 2. Acute diastolic heart failure exacerbation-no signs of volume overload at this time. will monitor closely with IVF. hold lasix. Monitor electrolytes, daily weights, cardio on board 3. Hemorrhagic cystitis-with CBI running. very faint pink at this time. Hgb stable. further management per urology. 4. Hypotension- possible due to sedation during the procedure vs development of sepsis. Received dose of Vaso and epi post-operatively. has not require ggt. Vitals have been stable. will cont to monitor 5. abdominal pain- points to suprapubic region. possible due to pressure of CBI causing discomfort. low suspicion for ischemic colitis. Lactic acid normal. doppler done of the legs is negative for clot. although pt has high risk for development of emboli and clot. would hold off given patient contrast at this time with renal function with such a low suspicion. obtain AXR to further evaluate. possible constipation. unknown last BM. 6. SANAM- due to hypoperfusion. as been stable this hospital course. IVF increased. will monitor closely. unstable for imaging at this time. did have mild hydro due to cystitis. will consider nephro if continues to worsen. avoid nephrotoxic agents. no eosinophilia 7. Tropinemia- TNI peaked at 2. likely due to hypoperfusion from procedure. no indication for workup at this time. medical management 8. afib- uncontrolled. pt refusing oral medications. re-started on metropolol standing and prn. was re-started on eliquis yesterday. cardio on board. 9. MSSA Bacteremia-with urine also showing MSSA. afebrile. leukocytosis slowly trending down. vanco level high. agree with nafcillin. echo pending to r/o endocarditis. will repeat BCx. ID on board 10. 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 Sarcoidosis 13. COPD on 2L home oxygen 14. HTN 15. dyslipidemia 16. DVT ppx- eliquis 17. MICU monitoring The care of this patient involved high complexity decision making to prevent further life threatening deterioration of the patient's condition and/or to evaluate & treat vital organ system(s) failure or risk of failure. 40 mins
[2018-08-14] MEDS ORDERED: APIXABAN 5 MG TABLET PO ONE (15:00)
--- NOTE | 2018-08-14 15:41 | PN ---
Physical Exam: SUBJECTIVE: Patient seen and examined at bedside. Patient on bipap overnight. This morning, patient asked to use the bipap for a few hours in the morning. Patient reports diffuse tenderness of the belly. OBJECTIVE: Vital Signs Period Temp Pulse Resp BP Sys/Garza Pulse Ox Last 24 Hr 97.1 F-98.9 F 101-138 16-28 109-146/64-90 100-100 GENERAL: The patient is somnolent but arousable, on 3L NC. NECK: Trachea midline, full range of motion, supple. LUNGS: +scattered rhonchi bilaterally HEART: Regular rate and rhythm, S1, S2 without murmur, rub or gallop. ABDOMEN: Soft, +mild tenderness, nondistended, normoactive bowel sounds. LETITIA: +soft brown stools, no gross blood, no fissures or mass palpated. EXTREMITIES: 2+ pulses, warm, well-perfused, no edema. SKIN: Warm, dry, normal turgor. Laboratory Results - last 24 hr 08/13/18 08/13/18 08/13/18 18:30 18:40 21:00 WBC RBC Hgb Hct MCV MCH MCHC RDW Plt Count MPV Absolute Neuts (auto) Neutrophils % Neutrophils % (Manual) Band Neutrophils % Lymphocytes % Lymphocytes % (Manual) Monocytes % Monocytes % (Manual) Eosinophils % Eosinophils % (Manual) Basophils % Basophils % (Manual) Myelocytes % (Man) Promyelocytes % (Man) Blast Cells % (Manual) Nucleated RBC % Metamyelocytes Hypochromia Toxic Granulation Platelet Estimate Polychromasia Poikilocytosis Anisocytosis Microcytosis Macrocytosis Spherocytes Tear Drop Cells Ovalocytes Acanthocytes (Spur) Puncture Site Right radial ABG pH 7.48 H ABG pCO2 at Pt Temp 41.1 ABG pO2 at Pt Temp 101.0 H ABG HCO3 30.7 H ABG O2 Sat (Measured) 97.4 ABG O2 Content 40.0 H ABG Base Excess 7.0 H Junior Test No Result Required. Oxygen Flow Rate Yes Sodium Potassium Chloride Carbon Dioxide Anion Gap BUN Creatinine Creat Clearance w eGFR Random Glucose Lactic Acid 1.6 Calcium Phosphorus Magnesium Total Bilirubin AST ALT Alkaline Phosphatase Troponin I 0.28 H Total Protein Albumin Lipase Random Vancomycin 08/14/18 08/14/18 08/14/18 05:30 05:30 05:30 WBC 36.4 H* RBC 4.23 Hgb 8.6 L Hct 28.2 L MCV 66.6 L MCH 20.4 L MCHC 30.6 L RDW 18.0 H Plt Count 171 MPV 10.2 Absolute Neuts (auto) 34.4 H Neutrophils % 94.4 H Neutrophils % (Manual) 89.9 H Band Neutrophils % 2.0 Lymphocytes % 1.4 L D Lymphocytes % (Manual) 3.0 L D Monocytes % 4.1 Monocytes % (Manual) 5 D Eosinophils % 0.0 Eosinophils % (Manual) 0.0 Basophils % 0.1 Basophils % (Manual) 0.0 Myelocytes % (Man) 0 Promyelocytes % (Man) 0 Blast Cells % (Manual) 0 Nucleated RBC % 0 Metamyelocytes 0 Hypochromia 0 Toxic Granulation 1+ Platelet Estimate Normal Polychromasia 1+ Poikilocytosis 1+ Anisocytosis 2+ Microcytosis 1+ Macrocytosis 1+ Spherocytes 1+ Tear Drop Cells 1+ Ovalocytes 1+ Acanthocytes (Spur) 1+ Puncture Site ABG pH ABG pCO2 at Pt Temp ABG pO2 at Pt Temp ABG HCO3 ABG O2 Sat (Measured) ABG O2 Content ABG Base Excess Junior Test Oxygen Flow Rate Sodium 135 L Potassium 5.3 H Chloride 91 L Carbon Dioxide 29 Anion Gap 15 BUN 84 H Creatinine 3.8 H Creat Clearance w eGFR 11.21 Random Glucose 185 H Lactic Acid Calcium 8.0 L Phosphorus 6.2 H Magnesium 2.3 Total Bilirubin 0.8 AST 23 ALT 15 Alkaline Phosphatase 73 Troponin I Total Protein 5.7 L Albumin 2.0 L Lipase 87 Random Vancomycin 22.6 Active Medications Generic Name Dose Route Start Last Admin Trade Name Freq PRN Reason Stop Dose Admin Albuterol Sulfate 1 amp 08/11/18 19:31 08/12/18 01:24 Ventolin 0.083% Nebulizer Soln - NEB 1 amp Q6H PRN Administration SHORT OF BREATH/WHEEZING Albuterol/Ipratropium 1 amp 08/11/18 20:00 08/14/18 11:52 Duoneb - NEB 1 amp RQID LISA Administration Apixaban 5 mg 08/14/18 22:00 Eliquis - PO BID LISA Budesonide/Formoterol Fumarate 2 puff 08/11/18 22:00 08/14/18 09:10 Symbicort 160/4.5mcg - IH 2 puff BID LISA Administration Sodium Chloride 1,000 mls @ 125 mls/hr 08/13/18 17:15 08/14/18 09:24 Normal Saline - IV 125 mls/hr ASDIR LISA Administration Nafcillin Sodium 2 gm/ 100 mls @ 100 mls/hr 08/14/18 10:45 08/14/18 14:34 Dextrose IVPB 100 mls/hr Q4H-IV LISA Administration Protocol Insulin Aspart 1 vial 08/11/18 22:00 08/14/18 11:39 Novolog Vial Sliding Scale - SQ 2 units ACHS LISA Administration Protocol Methylprednisolone Sodium Succinate 40 mg 08/14/18 10:00 08/14/18 09:19 Solu-Medrol - IVPUSH 40 mg DAILY LISA Administration Metoprolol Tartrate 5 mg 08/14/18 12:17 08/14/18 13:21 Lopressor Injection - IVPUSH 5 mg Q6H LISA Administration Metoprolol Tartrate 5 mg 08/14/18 14:47 Lopressor Injection - IVPUSH Q4H PRN TACHYCARDIA Ondansetron HCl 4 mg 08/11/18 16:43 Zofran Injection IVPUSH Q6H PRN NAUSEA AND/OR VOMITING Pantoprazole Sodium 20 mg 08/12/18 10:00 08/14/18 11:18 Protonix - PO Not Given DAILY LISA Polyethylene Glycol 17 gm 08/11/18 22:00 08/14/18 09:11 Miralax (For Daily Use) - PO 17 grams BID LISA Administration Senna 2 tab 08/11/18 22:00 08/13/18 21:52 Senna - PO 2 tab HS LISA Administration Sodium Chloride 2 spray 08/12/18 13:26 08/12/18 15:14 [place] Nasal [place] - NS 2 spray BID PRN Administration NASAL CONGESTION ASSESSMENT/PLAN: Patient is an 87 yo female with PMH of a-fib (rate controlled, on eliquis), COPD (on 2L home o2), HTN, pulmonary HTN, presented with gross hematuria. Renal and bladder US revealed right hydronephrosis and multiple filling defects in the bladder. Patient is s/p cystoscopy, clot evacuation, bladder biopsy and bladder fulgeration. #Pulmonary 1)Acute hypoxic/hypercapneic respiratory failure likely secondary to CHF/COPD exacerbation -Was on Bipap overnight, this morning tolerated Nasal canula. -Duoneb QID -Albuterol PRN -Changed IV Solumedrol to 40mg IV Daily -CXR and ABG in AM #Cardiovascular 1)Hypotension, resolved -gen-operative hypotension, likely 2/2 sepsis -Cardiology (Dr. Mendez) consulted. Recommendations appreciated. -trop 2.0 the following day, trending down--suspect Type II IN sec to hypoperfusion/sepsis (+/- underlying stable CAD), given associated finding of bacteremia. ECG 08/[address] depressions inferior leads, improved on 08/12 tracing--cannot exclude Type I IN at time of events. -AC initially held for gross hematuria with large clots/hydronephrosis--now back on eliquis (for afib). -BB and afib HR control as doing -hemodynamically stable, observe BPs as titrate AF meds 2)Atrial Fibrillation -HR remains elevated -Increase Lopressor to 5mg IV q6h with Lopressor 5mg q4h PRN doses -if HRs rise will add digoxin -eliquis resumed--monitor hematuria output 3)Acute diastolic CHF -lasix on hold, gentle IVF--observe chf status closely 4)Troponinemia -trop peaked at 2.0, trending down -likely demand ischemia from hypoperfusion/sepsis -ECG 08/[address] depressions inferior leads, improved on tracing--cannot exclude Type I IN at time of events. 5)Hypertension -BP controlled -cont current meds #Infectious disease 1)Bacteremia: likely 2/2 UTI -Blood cx: +Presumptive MSSA, pending organism -urine culture positive for Staph. Repeat urine cultures pending -Infectious Disease (Dr. Garcia) consulted. Recommendations appreciated. -IV Nafcillin 2gm q4h -IV NS @100ml/hr #Genitourinary 1)Hemorrahagic cystitis -Patient underwent cystoscopy 08/11/2018 for gross hematuria,clot retention, rt. hydronephrosis -draining light pink colored urine, H/H is stable. -CBI discontinued today -Eliquis resumed #Nephrology 1)SANAM -likely from ATN and is likely multifactorial. Avoid hypotension -BUN/Cr: 84/3.8 -Nephrology (Dr. Del Angel) consulted. Recommendations appreciated. -check urine lytes and community engagement representative -check urine eos -monitor bp and pressors to map of 65 -pt now on nafcillin, was on zosyn and did get a dose of vanco -follow up repeat labs -stop potassium supplements -caution with fluids as she has CHF 2)Hyperkalemia: K 5.3 -Pt given KCl added on IVF overnight -Discontinued KCl -Will continue to monitor #FEN -IV NS @100ml/hr -routine bmp monitoring -sodium controlled diet #Prophylaxis 1)DVT - On Eliquis 5mg BID 2)GI - Protonix 20mg daily #Disposition -ICU for closer monitoring -full code Visit type - Emergency Visit Emergency Visit: Yes ED Registration Date: 07/25/18 Care time: The patient presented to the Emergency Department on the above date and was hospitalized for further evaluation of their emergent condition. - New Patient This patient is new to me today: Yes Date on this admission: 08/14/18 - Critical Care Critical Care patient: Yes Total Critical Care Time (in minutes): 45 Critical Care Statement: The care of this patient involved high complexity decision making to prevent further life threatening deterioration of the patient 's condition and/or to evaluate & treat vital organ system(s) failure or risk of failure.
[2018-08-14 16:25] LABS: ARTERIAL BLD GAS O2 SATURATION 99.2 % (90-98.9); ARTERIAL BLOOD GAS BASE EXCESS 3.8 meq/l (-2-2); ARTERIAL BLOOD GAS PCO2 40.1 mmHg (35-45)
[2018-08-14 16:27] LABS: ALLENS TEST POSITIVE
[2018-08-14 16:36] LABS: ARTERIAL BLOOD GAS pH 7.45 (7.35-7.45)
--- NOTE | 2018-08-14 16:48 | PN ---
Physical Exam: SUBJECTIVE: Patient seen and examined today in icu. No acute events overnight. Pt c/o suprapubic tenderness OBJECTIVE: Vital Signs Period Temp Pulse Resp BP Sys/Garza Pulse Ox Last 24 Hr 97.1 F-98.9 F 101-138 16-26 109-146/64-90 100-100 GENERAL: Lethargic, responsive to physical and verbal stimuli. HEAD: NC/AT ENT: Dry mucous membranes LUNGS: CTA Anteriorly HEART: Irregularly irregular ABDOMEN: Suprapubic tenderness EXTREMITIES: No CCE. SKIN: No rashes or lesions appreciated Laboratory Results - last 24 hr 08/13/18 08/13/18 08/13/18 18:30 18:40 21:00 WBC RBC Hgb Hct MCV MCH MCHC RDW Plt Count MPV Absolute Neuts (auto) Neutrophils % Neutrophils % (Manual) Band Neutrophils % Lymphocytes % Lymphocytes % (Manual) Monocytes % Monocytes % (Manual) Eosinophils % Eosinophils % (Manual) Basophils % Basophils % (Manual) Myelocytes % (Man) Promyelocytes % (Man) Blast Cells % (Manual) Nucleated RBC % Metamyelocytes Hypochromia Toxic Granulation Platelet Estimate Polychromasia Poikilocytosis Anisocytosis Microcytosis Macrocytosis Spherocytes Tear Drop Cells Ovalocytes Acanthocytes (Spur) Puncture Site Right radial ABG pH 7.48 H ABG pCO2 at Pt Temp 41.1 ABG pO2 at Pt Temp 101.0 H ABG HCO3 30.7 H ABG O2 Sat (Measured) 97.4 ABG O2 Content 40.0 H ABG Base Excess 7.0 H Junior Test No Result Required. Oxygen Flow Rate Yes Vent Mode Sodium Potassium Chloride Carbon Dioxide Anion Gap BUN Creatinine Creat Clearance w eGFR Random Glucose Lactic Acid 1.6 Calcium Phosphorus Magnesium Total Bilirubin AST ALT Alkaline Phosphatase Troponin I 0.28 H Total Protein Albumin Lipase Random Vancomycin 08/14/18 08/14/18 08/14/18 05:30 05:30 05:30 WBC 36.4 H* RBC 4.23 Hgb 8.6 L Hct 28.2 L MCV 66.6 L MCH 20.4 L MCHC 30.6 L RDW 18.0 H Plt Count 171 MPV 10.2 Absolute Neuts (auto) 34.4 H Neutrophils % 94.4 H Neutrophils % (Manual) 89.9 H Band Neutrophils % 2.0 Lymphocytes % 1.4 L D Lymphocytes % (Manual) 3.0 L D Monocytes % 4.1 Monocytes % (Manual) 5 D Eosinophils % 0.0 Eosinophils % (Manual) 0.0 Basophils % 0.1 Basophils % (Manual) 0.0 Myelocytes % (Man) 0 Promyelocytes % (Man) 0 Blast Cells % (Manual) 0 Nucleated RBC % 0 Metamyelocytes 0 Hypochromia 0 Toxic Granulation 1+ Platelet Estimate Normal Polychromasia 1+ Poikilocytosis 1+ Anisocytosis 2+ Microcytosis 1+ Macrocytosis 1+ Spherocytes 1+ Tear Drop Cells 1+ Ovalocytes 1+ Acanthocytes (Spur) 1+ Puncture Site ABG pH ABG pCO2 at Pt Temp ABG pO2 at Pt Temp ABG HCO3 ABG O2 Sat (Measured) ABG O2 Content ABG Base Excess Junior Test Oxygen Flow Rate Vent Mode Sodium 135 L Potassium 5.3 H Chloride 91 L Carbon Dioxide 29 Anion Gap 15 BUN 84 H Creatinine 3.8 H Creat Clearance w eGFR 11.21 Random Glucose 185 H Lactic Acid Calcium 8.0 L Phosphorus 6.2 H Magnesium 2.3 Total Bilirubin 0.8 AST 23 ALT 15 Alkaline Phosphatase 73 Troponin I Total Protein 5.7 L Albumin 2.0 L Lipase 87 Random Vancomycin 22.6 08/14/18 16:15 WBC RBC Hgb Hct MCV MCH MCHC RDW Plt Count MPV Absolute Neuts (auto) Neutrophils % Neutrophils % (Manual) Band Neutrophils % Lymphocytes % Lymphocytes % (Manual) Monocytes % Monocytes % (Manual) Eosinophils % Eosinophils % (Manual) Basophils % Basophils % (Manual) Myelocytes % (Man) Promyelocytes % (Man) Blast Cells % (Manual) Nucleated RBC % Metamyelocytes Hypochromia Toxic Granulation Platelet Estimate Polychromasia Poikilocytosis Anisocytosis Microcytosis Macrocytosis Spherocytes Tear Drop Cells Ovalocytes Acanthocytes (Spur) Puncture Site Right radial ABG pH 7.45 ABG pCO2 at Pt Temp 40.1 ABG pO2 at Pt Temp 183.0 H* D ABG HCO3 27.6 H ABG O2 Sat (Measured) 99.2 H ABG O2 Content 11.7 L ABG Base Excess 3.8 H Junior Test Positive Oxygen Flow Rate No Result Required. Vent Mode Sodium Potassium Chloride Carbon Dioxide Anion Gap BUN Creatinine Creat Clearance w eGFR Random Glucose Lactic Acid Calcium Phosphorus Magnesium Total Bilirubin AST ALT Alkaline Phosphatase Troponin I Total Protein Albumin Lipase Random Vancomycin Active Medications Generic Name Dose Route Start Last Admin Trade Name Freq PRN Reason Stop Dose Admin Albuterol Sulfate 1 amp 08/11/18 19:31 08/12/18 01:24 Ventolin 0.083% Nebulizer Soln - NEB 1 amp Q6H PRN Administration SHORT OF BREATH/WHEEZING Albuterol/Ipratropium 1 amp 08/11/18 20:00 08/14/18 11:52 Duoneb - NEB 1 amp RQID LISA Administration Apixaban 5 mg 08/14/18 22:00 Eliquis - PO BID LISA Budesonide/Formoterol Fumarate 2 puff 08/11/18 22:00 08/14/18 09:10 Symbicort 160/4.5mcg - IH 2 puff BID LISA Administration Sodium Chloride 1,000 mls @ 125 mls/hr 08/13/18 17:15 08/14/18 09:24 Normal Saline - IV 125 mls/hr ASDIR LISA Administration Nafcillin Sodium 2 gm/ 100 mls @ 100 mls/hr 08/14/18 10:45 08/14/18 14:34 Dextrose IVPB 100 mls/hr Q4H-IV LISA Administration Protocol Insulin Aspart 1 vial 08/11/18 22:00 08/14/18 11:39 Novolog Vial Sliding Scale - SQ 2 units ACHS LISA Administration Protocol Methylprednisolone Sodium Succinate 40 mg 08/14/18 10:00 08/14/18 09:19 Solu-Medrol - IVPUSH 40 mg DAILY LISA Administration Metoprolol Tartrate 5 mg 08/14/18 12:17 08/14/18 13:21 Lopressor Injection - IVPUSH 5 mg Q6H LISA Administration Metoprolol Tartrate 5 mg 08/14/18 14:47 Lopressor Injection - IVPUSH Q4H PRN TACHYCARDIA Ondansetron HCl 4 mg 08/11/18 16:43 Zofran Injection IVPUSH Q6H PRN NAUSEA AND/OR VOMITING Pantoprazole Sodium 20 mg 08/12/18 10:00 08/14/18 11:18 Protonix - PO Not Given DAILY LISA Polyethylene Glycol 17 gm 08/11/18 22:00 08/14/18 09:11 Miralax (For Daily Use) - PO 17 grams BID LISA Administration Senna 2 tab 08/11/18 22:00 08/13/18 21:52 Senna - PO 2 tab HS LISA Administration Sodium Chloride 2 spray 08/12/18 13:26 08/12/18 15:14 [place] Nasal [place] - NS 2 spray BID PRN Administration NASAL CONGESTION ASSESSMENT/PLAN: 87 yo female with PMH of a-fib (rate controlled, on eliquis), CHF, COPD (on 2L home o2), HTN, pulmonary HTN, presented to the ED with complaint of SOB with a cough productive of clear sputum for 2 days and admitted for the treatment of CHF exacerbation #Acute hypercapnic hypoxic respiratory distress: resolving, patient had a likely exacerbation 2/2 CHF and COPD Medrol PO 40 QD -Duonebs scheduled QID; albuterol PRN -Pulmonology on board -Continue pulmicort inhaler -on 2L nasal cannula -continue daily weights -BiPap PRN - #Hematuria: continuing to occur, likely 2/2 trauma vs acute bladder/kidney pathology -H&H 8.6/.2 today 08/14/18 -*Spoke with Urology this am, CBI Discontinued per Urology. Eliquis resumed. -Bladder/kidney US ordered--> 08/08/18: R [place]. Partially distended urinary bladder that is at least partially filled with debris. Cannot rule out blood clots. Cannot adequately evaluate its posterior wall. Bilateral ureteral jets were not visualized. Further evaluation of the urinary bladder is needed. -KUB no signs of obstructing stones. Urology on board. -08/11/19 S/p Cystourethroscopy, evacuation of clots, fulguration of bleeders placement 3 way 30 ml 24 fr rodriguez with continuos bladder irrigation. #SANAM, Hyperkalemia -Renal Dr Del Angel on board - Potassium 5.8. Insulin 10 U + 1 Amp D50, Sodium Bicarb, Ca Gluconate 1 gm, 3 runs of Albuterol. # WBC >40K -Nafcillin 2 gm Q4H -Blood Cultures---MS Staph Aureus -Urine Cultures---MS Staph Aureus #Atrial fibrillation: stable -Eliquis Resumed per Urology. CBI D/C'ed -Continue Toprol XL 25mg BID -Echo--> EF 60-65%, moderately to severe LA Dilation. -LE Dopplers negative for any DVT #Sarcoidosis: chronic -Already on steroids for above problems, continue steroids. #HLD: stable -Continue Lipitor FEN: NS Monitor electrolytes NPO PPX: DVT - Eliquis 5 mg po daily GI - Protonix 20mg qDaily Dispo: ICU Visit type - Emergency Visit Emergency Visit: Yes ED Registration Date: 07/25/18 Care time: The patient presented to the Emergency Department on the above date and was hospitalized for further evaluation of their emergent condition. - New Patient This patient is new to me today: No - Critical Care Critical Care patient: No - Discharge Referral Referred to [facility] No
--- NOTE | 2018-08-14 16:53 | CONSULT ---
Consult Consult Specialty:: Nephrology Reason for Consultation:: SANAM - History of Present Illness Chief Complaint: cough History of Present Illness: Pt is an 81 year old female with pmhx of sarcoid (1985), diastolic CHF, severe Pulm HTN, COPD , a-fib, HDL and HTN who initially presented with shortness of breath. She was admitted for chf exacerbation. Her hospital stay was complicated by hematuria. She was taken for cysto. Pt was on eliquis for a-fib. She did have intra-op hyotension. She was found to have hemorrhagic cystitis. She developed renal failure and I was called to evaluate her. She was on CBI however that was stopped and now she has a rodriguez catheter. Pt did require pressors for hypotension. Chart reviewed. - History Source History Provided By: Patient, Medical Record - Past Medical History DRY COLOR TESTER: Yes: Vertigo (intermittent) Cardio/Vascular: Yes: AFIB, CHF, HTN, Hyperlipdemia, Pulmonary Hypertension, Other (Sarcoidosis) Pulmonary: Yes: Asthma, COPD Renal/: Yes: Hematuria ...: No Psych: Yes: Depression - Past Surgical History Past Surgical History: Yes: Cholecystectomy, Hysterectomy - Alcohol/Substance Use Hx Alcohol Use: No History of Substance Use: reports: None - Smoking History Smoking history: Never smoked Have you smoked in the past 12 months: No Aproximately how many cigarettes per day: 0 - Social History Usual Living Arrangement: Other (most recently has been at [place], and since developing pain has been ambulating with RW) History of Recent Travel: No Home Medications - Allergies Allergies/Adverse Reactions: Allergies Allergy/AdvReac Type Severity Reaction Status Date / Time No Known Allergies Allergy Verified 06/19/18 21:10 - Home Medications Home Medications: Ambulatory Orders Apixaban [Eliquis] 5 mg PO BID 04/16/18 Atorvastatin Ca [Lipitor] 20 mg PO HS 04/16/18 Escitalopram Oxalate [Lexapro -] 10 mg PO DAILY 04/16/18 Folic Acid 1 mg PO DAILY 04/16/18 Ipratropium [place] [Atrovent Hfa] 1 neb NEB Q4H PRN 04/17/18 Albuterol Sulfate [Proventil HFA Inhaler -] 1 - 2 inh PO QID PRN 06/20/18 Budesonide/Formeterol Fumarate [SYMBICORT 160/4.5mcg -] 1 inh PO BID 06/20/18 Furosemide [Lasix] 40 mg PO DAILY 06/20/18 Lorazepam 0.5 mg PO Q8H PRN 06/20/18 Omeprazole 20 mg PO DAILY 06/20/18 Atenolol [Tenormin] 25 mg PO BID #30 tablet 06/23/18 Polyethylene Glycol 3350 [Miralax 119 gm Btl -] 17 gm PO BID bottle 06/23/18 Sennosides [Senna -] 2 tab PO HS tablet 06/23/18 Family Disease History - Family Disease History Family Disease History: Heart Disease: Father, Mother, Other: Sister (Colon cancer) Review of Systems - Review of Systems Constitutional: reports: Chills, Malaise Eyes: reports: No Symptoms HENT: reports: No Symptoms Neck: reports: No Symptoms Cardiovascular: reports: Shortness of Breath. denies: Edema Respiratory: reports: SOB on Exertion Gastrointestinal: reports: Abdominal Pain Genitourinary: reports: Hematuria Musculoskeletal: reports: Muscle Weakness Neurological: reports: No Symptoms Endocrine: reports: No Symptoms Hematology/Lymphatic: reports: No Symptoms Psychiatric: reports: No Symptoms Physical Exam Vital Signs: Vital Signs Temperature 97.1 F L 08/14/18 12:00 Pulse Rate 101 H 08/14/18 14:00 Respiratory Rate 22 H 08/14/18 14:00 Blood Pressure 126/87 08/14/18 14:00 O2 Sat by Pulse Oximetry (%) 100 08/14/18 13:58 Constitutional: Yes: Calm Eyes: Yes: Conjunctiva Clear Cardiovascular: Yes: S1, S2 Respiratory: Yes: On Nasal O2 Gastrointestinal: Yes: Soft, Tenderness Renal/: Yes: [place] Present Musculoskeletal: Yes: Muscle Weakness Edema: No Integumentary: Yes: WNL Neurological: Yes: Oriented Psychiatric: Yes: Oriented Labs: CBC, BMP 08/14/18 05:30 Laboratory Tests 08/04/18 08/08/18 08/08/18 06:00 08:53 08:53 WBC 9.9 19.3 H ABG pH ABG pCO2 at Pt Temp ABG HCO3 Sodium Potassium Chloride BUN Creatinine 0.9 08/09/18 08/11/18 08/11/18 09:05 06:50 19:30 WBC ABG pH ABG pCO2 at Pt Temp ABG HCO3 Sodium Potassium Chloride BUN Creatinine 0.9 0.8 1.1 08/12/18 08/13/18 08/13/18 05:30 05:30 05:30 WBC 39.3 H* ABG pH ABG pCO2 at Pt Temp ABG HCO3 Sodium Potassium Chloride BUN Creatinine 1.8 H 2.9 H 08/14/18 08/14/18 05:30 16:15 WBC ABG pH 7.45 ABG pCO2 at Pt Temp 40.1 ABG HCO3 27.6 H Sodium 135 L Potassium 5.3 H Chloride 91 L BUN 84 H Creatinine 3.8 H Imaging - Results Chest X-ray: Report Reviewed Ultrasound: Report Reviewed Problem List - Problems (1) SANAM (acute kidney injury) Code(s): N17.9 - ACUTE KIDNEY FAILURE, UNSPECIFIED (2) CHF (congestive heart failure) Code(s): I50.9 - HEART FAILURE, UNSPECIFIED (3) Abdominal pain Code(s): R10.9 - UNSPECIFIED ABDOMINAL PAIN (4) Atrial fibrillation Code(s): I48.91 - UNSPECIFIED ATRIAL FIBRILLATION Qualifiers: Atrial fibrillation type: permanent Qualified Code(s): I48.2 - Chronic atrial fibrillation Assessment/Plan Current Medications Generic Name Dose Route Start Last Admin Trade Name Freq PRN Reason Stop Dose Admin Albuterol Sulfate 1 amp 08/11/18 19:31 08/12/18 01:24 Ventolin 0.083% Nebulizer Soln - NEB 1 amp Q6H PRN Administration SHORT OF BREATH/WHEEZING Albuterol/Ipratropium 1 amp 08/11/18 20:00 08/14/18 16:48 Duoneb - NEB 1 amp RQID LISA Administration Apixaban 5 mg 08/14/18 22:00 Eliquis - PO BID LISA Budesonide/Formoterol Fumarate 2 puff 08/11/18 22:00 08/14/18 09:10 Symbicort 160/4.5mcg - IH 2 puff BID LISA Administration Sodium Chloride 1,000 mls @ 125 mls/hr 08/13/18 17:15 08/14/18 09:24 Normal Saline - IV 125 mls/hr ASDIR LISA Administration Nafcillin Sodium 2 gm/ 100 mls @ 100 mls/hr 08/14/18 10:45 08/14/18 14:34 Dextrose IVPB 100 mls/hr Q4H-IV LISA Administration Protocol Insulin Aspart 1 vial 08/11/18 22:00 08/14/18 11:39 Novolog Vial Sliding Scale - SQ 2 units ACHS LISA Administration Protocol Methylprednisolone Sodium Succinate 40 mg 08/14/18 10:00 08/14/18 09:19 Solu-Medrol - IVPUSH 40 mg DAILY LISA Administration Metoprolol Tartrate 5 mg 08/14/18 12:17 08/14/18 13:21 Lopressor Injection - IVPUSH 5 mg Q6H LISA Administration Metoprolol Tartrate 5 mg 08/14/18 14:47 Lopressor Injection - IVPUSH Q4H PRN TACHYCARDIA Ondansetron HCl 4 mg 08/11/18 16:43 Zofran Injection IVPUSH Q6H PRN NAUSEA AND/OR VOMITING Pantoprazole Sodium 20 mg 08/12/18 10:00 08/14/18 11:18 Protonix - PO Not Given DAILY LISA Polyethylene Glycol 17 gm 08/11/18 22:00 08/14/18 09:11 Miralax (For Daily Use) - PO 17 grams BID LISA Administration Senna 2 tab 08/11/18 22:00 08/13/18 21:52 Senna - PO 2 tab HS LISA Administration Sodium Chloride 2 spray 08/12/18 13:26 08/12/18 15:14 [place] Nasal [place] - NS 2 spray BID PRN Administration NASAL CONGESTION Impression 1. SANAM 2. hypotension 3. pulm HTN 4. CHF 5. hematuria 6. sarcoid 7. COPD 8. a-fib 9. hx of HTN 10. hyperlipidemia 11. hyperkalemia 12. mild hydro on ultrasound Plan - monitor urine output now that cbi is stopped - check urine lytes and fashion editor - check urine eos - monitor bp and pressors to map of 65 - pt now on nafcillin, was on zosyn and did get a dose of vanco - follow up repeat labs - stop potassium supplements - discussed with medical team - SANAM likely from ATN and is likely multifactorial. Avoid hypotesnion - caution with fluids as she has CHF - daily cxr - will follow Dr Del Angel
[2018-08-14 17:03] LABS: ANION GAP 13 MMOL/L (8-16); BLOOD UREA NITROGEN 89 mg/dL (7-18); CALCIUM 8.2 mg/dL (8.5-10.1); CHLORIDE 91 mmol/L (98-107); CO2 29 mmol/L (21-32); CREATININE 4.2 mg/dL (0.55-1.3); GLUCOSE,RANDOM 210 mg/dL (74-106); POTASSIUM 5.8 mmol/L (3.5-5.1); SODIUM 132 mmol/L (136-145)
[2018-08-14] MEDS ORDERED: SODIUM CHLORIDE 1,000 ML IV SCH (17:13)
[2018-08-14] MEDS ORDERED: PT OWN MED DRAWER 7, Y5N ONE (17:16)
[2018-08-14] MEDS ORDERED: INSULIN REGULAR HUMAN 100 UNITS/ML *VIAL IVPUSH ONE (18:06)
[2018-08-14] MEDS ORDERED: DEXTROSE 50%-WATER - 25 GM/50 ML VIAL IVPUSH PRN (18:07)
[2018-08-14] MEDS: ALBUTEROL SO4 0.083% IH SOL 2.5 MG/3 ML VIAL.NEB. NEB SCH ×3 (18:10→18:45)
[2018-08-14] MEDS ORDERED: CALCIUM GLUCONATE 10% - 1,000 MG/10 ML VIAL IVPUSH ONE (18:11)
[2018-08-14] MEDS ORDERED: DEXTROSE 50%-WATER 25 GM/50 ML DISP.SYRIN ONE (18:29)
[2018-08-14] MEDS ORDERED: SODIUM BICARBONATE 8.4% 50 MEQ/50 ML VIAL IVPUSH ONE (18:30)
[2018-08-14] MEDS ORDERED: SODIUM BICARBONATE 8.4% 50 MEQ/50 ML VIAL ONE (18:43)
[2018-08-14] MEDS: APIXABAN 5 MG TABLET PO SCH (21:17)
[2018-08-14] MEDS: SENNOSIDES 8.6MG TABLET (FP) PO SCH (21:17)
[2018-08-14 21:33] LABS: ANION GAP 16 MMOL/L (8-16); BLOOD UREA NITROGEN 87 mg/dL (7-18); CALCIUM 7.9 mg/dL (8.5-10.1); CHLORIDE 95 mmol/L (98-107); CO2 28 mmol/L (21-32); CREATININE 4.4 mg/dL (0.55-1.3); GLUCOSE,RANDOM 203 mg/dL (74-106); POTASSIUM 5.6 mmol/L (3.5-5.1); SODIUM 138 mmol/L (136-145)
[2018-08-15] MEDS ORDERED: INSULIN REGULAR HUMAN 100 UNITS/ML *VIAL IVPUSH ONE (00:08)
[2018-08-15] MEDS ORDERED: ALBUTEROL SO4 0.083% IH SOL 2.5 MG/3 ML VIAL.NEB. NEB ONE (00:09)
[2018-08-15] MEDS ORDERED: ALBUTEROL SO4 0.5 % INH SOLN 2.5 MG/0.5 ML VIAL.NEB. NEB ONE (00:18)
[2018-08-15] MEDS: NAFCILLIN - 2 GM in DEXTROSE 5%-WATER - 100 ML IVPB SCH ×6 (01:47→22:01)
[2018-08-15] MEDS ORDERED: DEXTROSE 50%-WATER - 25 GM/50 ML VIAL IVPUSH ONE (03:40)
[2018-08-15] MEDS ORDERED: DEXTROSE 50%-WATER 25 GM/50 ML DISP.SYRIN ONE (03:43)
[2018-08-15 06:26] LABS: HEMATOCRIT 24.2 % (32.4-45.2); HEMOGLOBIN 7.4 GM/dL (10.7-15.3); MCH 20.4 pg (25.7-33.7); MCHC 30.5 g/dl (32.0-36.0); MEAN CELL VOLUME 66.7 fl (80-96); MEAN PLT VOLUME 9.6 fl (7.5-11.1); PLATELET COUNT 163 K/MM3 (134-434); RBC 3.63 M/mm3 (3.60-5.2); RDW 17.6 % (11.6-15.6)
[2018-08-15] MEDS: METOPROLOL TARTRATE 5 MG/5 ML VIAL IVPUSH SCH ×3 (06:28→17:56)
[2018-08-15] MEDS ORDERED: PT OWN MED DRAWER 7, Y5N ONE ×2 (06:32→19:29)
[2018-08-15] MEDS: INSULIN SLIDING SCALE (NOVOLOG) 1 VIAL SQ SCH ×4 (06:37→22:06)
[2018-08-15 06:43] LABS: ARTERIAL BLD GAS O2 SATURATION 95.3 % (90-98.9); ARTERIAL BLOOD GAS BASE EXCESS 2.5 meq/l (-2-2); ARTERIAL BLOOD GAS PCO2 40.6 mmHg (35-45); ARTERIAL BLOOD GAS PO2 82.4 mmHg (68-100); ARTERIAL BLOOD GAS pH 7.43 (7.35-7.45)
[2018-08-15 06:51] LABS: ANION GAP 12 MMOL/L (8-16); BLOOD UREA NITROGEN 93 mg/dL (7-18); CALCIUM 7.7 mg/dL (8.5-10.1); CHLORIDE 93 mmol/L (98-107); CO2 27 mmol/L (21-32); CREATININE 4.6 mg/dL (0.55-1.3); GLUCOSE,RANDOM 196 mg/dL (74-106); MAGNESIUM 2.5 mg/dL (1.8-2.4); PHOSPHOROUS 7.8 mg/dL (2.5-4.9); POTASSIUM 5.2 mmol/L (3.5-5.1); SODIUM 133 mmol/L (136-145)
[2018-08-15 06:53] LABS: ALLENS TEST POSITIVE
[2018-08-15] MEDS: ALBUTEROL SO4 2.5/IPRATROPIUM 0.5 INH SOL 3 ML VIAL.NEB. NEB SCH ×4 (08:40→20:40)
--- NOTE | 2018-08-15 10:00 | PN ---
Progress Note (short form) - Note Progress Note: Chief Complaint: resp failure, hypotension History of Present Illness: alert, not answering questions. appears calm. per RN refusing meds, asking for water occasionally, not eating Current Medications Albuterol Sulfate (Ventolin 0.083% Nebulizer Soln -) 1 amp NEB Q6H PRN PRN Reason: SHORT OF BREATH/WHEEZING Last Admin: 08/12/18 01:24 Dose: 1 amp Albuterol/Ipratropium (Duoneb -) 1 amp NEB RQID [facility] Last Admin: 08/14/18 20:50 Dose: 1 amp Apixaban (Eliquis -) 5 mg PO BID [facility] Last Admin: 08/14/18 21:17 Dose: 5 mg Budesonide/Formoterol Fumarate (Symbicort 160/4.5mcg -) 2 puff IH BID [facility] Last Admin: 08/14/18 21:28 Dose: 2 puff Nafcillin Sodium 2 gm/ (Dextrose) 100 mls @ 100 mls/hr IVPB Q4H-IV [facility]ISA; Protocol Last Admin: 08/15/18 09:42 Dose: 100 mls/hr Sodium Chloride (Normal Saline -) 1,000 mls @ 100 mls/hr IV ASDIR [facility] Last Admin: 08/14/18 17:28 Dose: 100 mls/hr Insulin Aspart (Novolog Vial Sliding Scale -) 1 vial SQ ACHS [facility]; Protocol Last Admin: 08/15/18 06:37 Dose: 2 units Methylprednisolone Sodium Succinate (Solu-Medrol -) 40 mg IVPUSH DAILY [facility] Last Admin: 08/14/18 09:19 Dose: 40 mg Metoprolol Tartrate (Lopressor Injection -) 5 mg IVPUSH Q6H [facility] Last Admin: 08/15/18 06:28 Dose: 5 mg Metoprolol Tartrate (Lopressor Injection -) 5 mg IVPUSH Q4H PRN PRN Reason: TACHYCARDIA Ondansetron HCl (Zofran Injection) 4 mg IVPUSH Q6H PRN PRN Reason: NAUSEA AND/OR VOMITING Pantoprazole Sodium (Protonix -) 20 mg PO DAILY [facility] Last Admin: 08/14/18 11:18 Dose: Not Given Polyethylene Glycol (Miralax (For Daily Use) -) 17 gm PO BID [facility] Last Admin: 08/14/18 21:31 Dose: 17 grams Senna (Senna -) 2 tab PO HS [facility] Last Admin: 08/14/18 21:17 Dose: 2 tab Sodium Chloride ([place] -) 2 spray NS BID PRN PRN Reason: NASAL CONGESTION Last Admin: 08/12/18 15:14 Dose: 2 spray - Objective Vital Signs: Vital Signs Period Temp Pulse Resp BP Sys/Garza Pulse Ox Last 24 Hr 97.1 F-97.4 F 100-119 18-29 118-142/57-92 92-100 Constitutional: Yes: Well Nourished, No Distress, Calm Cardiovascular: Yes: Pulse Irregular, JVD (cpap on), S1, S2. No: Gallop, Murmur Respiratory: Yes: Regular, CTA Bilaterally (anteriorly). No: Accessory Muscle Use Extremities: No: Cold Edema: No Neurological: Yes: Lethargy. No: Seizure Psychiatric: No: Agitated Assessment/Plan CXR: no acute process Echo 05/03: nl LVEF. mild RVE, mild-mod RV hypo. L/NEENA. mod MR/TR. RVSP at least 88 mmHg Echo 03/2017: Mild conc lvh. nl lv/rv size/fn, mod ronnie, mod mr, mod tr, rvsp 40- 50 EKG: afib with PVCs tele: afib rate 100s, PVCs hypotension, NSTEMI, staph bacteremia: -periop hypotension 08/11 during cysto, briefly on pressors--transferred to icu for monitoring -suspect due to periop bacteremia, given BCx's positive since that time -possibly compounded by overdiuresis--? RV is preload dependent here. -trop 2.0 the following day, trending down--suspect Type II VT sec to hypoperfusion/sepsis (+/- underlying stable CAD), given associated finding of bacteremia. ECG 08/[address]ressions inferior leads, improved on 08/12 tracing--cannot exclude Type I VT at time of events. -AC initially held for gross hematuria with large clots/hydronephrosis--now back on eliquis (for afib). defer ASA given ongoing risks of hematuria/clots with obstruction -BB and afib HR control as doing, hemodynamically stable - IV metoprolol as not taking PO -consider risk stratification MPI once clinically stable (if will change med mgmt approach) -defer invasive CAD mgmt approach given Type II VT > Type I here, plus pt's poor functional status with competing mortality limitations from severe lung dz , low likelihood to improve prognosis, and risks > benefits (including bleeding , AIN) SANAM: -likely ATN -holding lasix, IVF given -renal following, Dr. 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 initially 158 here. -cont lasix iv 80 bid -07/29: Creat 0.6 and weight down to 162, continue current lasix regimen -07/30: Creat 0.8, K 3.4, Wt 161. Continue current lasix regimen, replete K -07/31: 161 lbs. -08/01: wt 160 lbs, cont same -08/02-: appears euvolemic. was on lasix 40 qd at home. transitioned 80 iv bid to 80 qd -08/06: iv steroids continue and now dose increased. wt up a bit as well, restarted lasix 80 mg IV BID - 08/07-: weight continues to decrease, sob improving, Cr stable, still on IV steroids. Continue lasix 80 mg IV BID while on IV steroids. plan change to po lasix 80 daily when on po steroids. - 08/12: hypotensive during cystoscopy, looks dry clinically. SANAM this am. lasix on hold, gentle IVF--observe chf status closely - 08/13: lactic acidosis, + staph in BCx's the past 2 days, organism awaiting ID. renal fxn worsening significantly--incr IVF rate (125 cc/hr) - 08/14: remains non-edematous. CXR improved. renal fxn worsening rapidly. cont IVF - 08/15: Cr continues to rise, appears euvolemic. cont IVF, poor PO intake HTN: -bp controlled -cont current meds hematuria, obstruction with hydro: - cysto showed hemorrhagic cystitis with large amount of clot which was evacuated - CBI dc'ed per urology, eliquis restarted est time spent in pt exam, data review, and formulating plan of potentially life threatening medical problems = 35 min
--- NOTE | 2018-08-15 10:18 | PN ---
Progress Note, Physician History of Present Illness: Awake, confused Supine in bed No acute distress BC MSSA Pt in acute renal failure Practically no urine output Afebrile WBC remains markedly elevated - Current Medication List Current Medications: Active Medications Albuterol Sulfate (Ventolin 0.083% Nebulizer Soln -) 1 amp NEB Q6H PRN PRN Reason: SHORT OF BREATH/WHEEZING Last Admin: 08/12/18 01:24 Dose: 1 amp Albuterol/Ipratropium (Duoneb -) 1 amp NEB RQID [facility] Last Admin: 08/15/18 08:40 Dose: 1 amp Apixaban (Eliquis -) 5 mg PO BID [facility] Last Admin: 08/14/18 21:17 Dose: 5 mg Budesonide/Formoterol Fumarate (Symbicort 160/4.5mcg -) 2 puff IH BID [facility] Last Admin: 08/14/18 21:28 Dose: 2 puff Nafcillin Sodium 2 gm/ (Dextrose) 100 mls @ 100 mls/hr IVPB Q4H-IV [facility]; Protocol Last Admin: 08/15/18 09:42 Dose: 100 mls/hr Sodium Chloride (Normal Saline -) 1,000 mls @ 100 mls/hr IV ASDIR [facility] Last Admin: 08/14/18 17:28 Dose: 100 mls/hr Insulin Aspart (Novolog Vial Sliding Scale -) 1 vial SQ ACHS [facility]; Protocol Last Admin: 08/15/18 06:37 Dose: 2 units Methylprednisolone Sodium Succinate (Solu-Medrol -) 40 mg IVPUSH DAILY [facility] Last Admin: 08/14/18 09:19 Dose: 40 mg Metoprolol Tartrate (Lopressor Injection -) 5 mg IVPUSH Q6H [facility] Last Admin: 08/15/18 06:28 Dose: 5 mg Metoprolol Tartrate (Lopressor Injection -) 5 mg IVPUSH Q4H PRN PRN Reason: TACHYCARDIA Ondansetron HCl (Zofran Injection) 4 mg IVPUSH Q6H PRN PRN Reason: NAUSEA AND/OR VOMITING Pantoprazole Sodium (Protonix -) 20 mg PO DAILY [facility] Last Admin: 08/14/18 11:18 Dose: Not Given Polyethylene Glycol (Miralax (For Daily Use) -) 17 gm PO BID [facility] Last Admin: 08/14/18 21:31 Dose: 17 grams Senna (Senna -) 2 tab PO HS [facility] Last Admin: 08/14/18 21:17 Dose: 2 tab Sodium Chloride ([place] Nasal [place] -) 2 spray NS BID PRN PRN Reason: NASAL CONGESTION Last Admin: 08/12/18 15:14 Dose: 2 spray - Objective Vital Signs: Vital Signs Temperature 97.2 F L 08/15/18 02:00 Pulse Rate 100 H 08/15/18 08:00 Respiratory Rate 18 08/15/18 09:00 Blood Pressure 118/64 08/15/18 08:00 O2 Sat by Pulse Oximetry (%) 94 L 08/15/18 09:00 Constitutional: Yes: No Distress Cardiovascular: Yes: Regular Rate and Rhythm, Tachycardia, S1, S2 Respiratory: Yes: Diminished Gastrointestinal: Yes: Normal Bowel Sounds, Soft. No: Tenderness Edema: LLE: 1+, RLE: 1+ Labs: CBC, BMP 08/15/18 05:30 08/15/18 05:30 Assessment/Plan Staph bacteremia/ sepsis MSSA Sepsis Acute renal failure Leukocytosis Lactic acidosis Hemorrhagic cystitis COPD CHF Continue nafcillin Repeat BC pending Echocardiogram no vegetations
[2018-08-15] MEDS: APIXABAN 5 MG TABLET PO SCH (10:30)
[2018-08-15] MEDS: POLYETHYLENE GLYCOL 3350 119 GM BTL PO SCH ×2 (10:30→22:01)
[2018-08-15] MEDS: methylPREDNISolone NA SUCC 40 MG/1 ML VIAL IVPUSH SCH (10:31)
[2018-08-15] MEDS: BUDESONIDE/FORMETEROL FUMARATE 160/4.5 mcg INHALER IH SCH ×2 (10:31→22:02)
[2018-08-15] MEDS: PANTOPRAZOLE 20 MG TABLET (FP) PO SCH (10:31)
[2018-08-15] MEDS ORDERED: HEMOQUE TEST 1 EACH EACH ONE (10:55)
--- NOTE | 2018-08-15 12:03 | PN ---
Physical Exam: SUBJECTIVE: Patient seen and examined at bedside. No acute events overnight. Minimal urine output overnight, bedside bladder scan revealed 36 cc in bladder. OBJECTIVE: Vital Signs Period Temp Pulse Resp BP Sys/Garza Pulse Ox Last 24 Hr 97.2 F-98.0 F 100-119 18-29 118-138/57-92 92-100 GENERAL: Lethargic, confused HEAD: NC/AT LUNGS: CTA B/L Anteriorly HEART: Irregularly irregular ABDOMEN: Suprapubic tenderness. EXTREMITIES: 1+ pitting edema . SKIN: Warm, dry, normal turgor, no rashes or lesions noted Laboratory Results - last 24 hr 08/13/18 08/13/18 08/14/18 17:02 21:28 05:19 WBC RBC Hgb Hct MCV MCH MCHC RDW Plt Count MPV Neutrophils % (Manual) Band Neutrophils % Lymphocytes % (Manual) Monocytes % (Manual) Eosinophils % (Manual) Basophils % (Manual) Myelocytes % (Man) Promyelocytes % (Man) Blast Cells % (Manual) Metamyelocytes Hypochromia Toxic Granulation Platelet Estimate Polychromasia Poikilocytosis Anisocytosis Microcytosis Macrocytosis Spherocytes Tear Drop Cells Ovalocytes Acanthocytes (Spur) Puncture Site ABG pH ABG pCO2 at Pt Temp ABG pO2 at Pt Temp ABG HCO3 ABG O2 Sat (Measured) ABG O2 Content ABG Base Excess Junior Test O2 Delivery Device Oxygen Flow Rate Vent Mode Sodium Potassium Chloride Carbon Dioxide Anion Gap BUN Creatinine Creat Clearance w eGFR POC Glucometer 258.82771 202.08041 212.56088 Random Glucose Calcium Phosphorus Magnesium Ur Random Sodium Ur Random Potassium Ur Random Chloride Urine Creatinine Blood Type Antibody Screen 08/14/18 08/14/18 08/14/18 05:30 11:35 15:30 WBC RBC Hgb Hct MCV MCH MCHC RDW Plt Count MPV Neutrophils % (Manual) 89.9 H Band Neutrophils % 2.0 Lymphocytes % (Manual) 3.0 L D Monocytes % (Manual) 5 D Eosinophils % (Manual) 0.0 Basophils % (Manual) 0.0 Myelocytes % (Man) 0 Promyelocytes % (Man) 0 Blast Cells % (Manual) 0 Metamyelocytes 0 Hypochromia 0 Toxic Granulation 1+ Platelet Estimate Normal Polychromasia 1+ Poikilocytosis 1+ Anisocytosis 2+ Microcytosis 1+ Macrocytosis 1+ Spherocytes 1+ Tear Drop Cells 1+ Ovalocytes 1+ Acanthocytes (Spur) 1+ Puncture Site ABG pH ABG pCO2 at Pt Temp ABG pO2 at Pt Temp ABG HCO3 ABG O2 Sat (Measured) ABG O2 Content ABG Base Excess Junior Test O2 Delivery Device Oxygen Flow Rate Vent Mode Sodium 132 L Potassium 5.8 H Chloride 91 L Carbon Dioxide 29 Anion Gap 13 BUN 89 H Creatinine 4.2 H Creat Clearance w eGFR 9.99 POC Glucometer 173.24910 Random Glucose 210 H Calcium 8.2 L Phosphorus Magnesium Ur Random Sodium Ur Random Potassium Ur Random Chloride Urine Creatinine Blood Type Antibody Screen 08/14/18 08/14/18 08/14/18 16:15 17:00 19:30 WBC RBC Hgb Hct MCV MCH MCHC RDW Plt Count MPV Neutrophils % (Manual) Band Neutrophils % Lymphocytes % (Manual) Monocytes % (Manual) Eosinophils % (Manual) Basophils % (Manual) Myelocytes % (Man) Promyelocytes % (Man) Blast Cells % (Manual) Metamyelocytes Hypochromia Toxic Granulation Platelet Estimate Polychromasia Poikilocytosis Anisocytosis Microcytosis Macrocytosis Spherocytes Tear Drop Cells Ovalocytes Acanthocytes (Spur) Puncture Site Right radial ABG pH 7.45 ABG pCO2 at Pt Temp 40.1 ABG pO2 at Pt Temp 183.0 H* D ABG HCO3 27.6 H ABG O2 Sat (Measured) 99.2 H ABG O2 Content 11.7 L ABG Base Excess 3.8 H Junior Test Positive O2 Delivery Device Oxygen Flow Rate No Result Required. Vent Mode Sodium Potassium Chloride Carbon Dioxide Anion Gap BUN Creatinine Creat Clearance w eGFR POC Glucometer 224.91402 Random Glucose Calcium Phosphorus Magnesium Ur Random Sodium 158 Ur Random Potassium < 9.0 L Ur Random Chloride 163 Urine Creatinine Blood Type Antibody Screen 08/14/18 08/14/18 08/14/18 19:30 20:30 21:25 WBC RBC Hgb Hct MCV MCH MCHC RDW Plt Count MPV Neutrophils % (Manual) Band Neutrophils % Lymphocytes % (Manual) Monocytes % (Manual) Eosinophils % (Manual) Basophils % (Manual) Myelocytes % (Man) Promyelocytes % (Man) Blast Cells % (Manual) Metamyelocytes Hypochromia Toxic Granulation Platelet Estimate Polychromasia Poikilocytosis Anisocytosis Microcytosis Macrocytosis Spherocytes Tear Drop Cells Ovalocytes Acanthocytes (Spur) Puncture Site ABG pH ABG pCO2 at Pt Temp ABG pO2 at Pt Temp ABG HCO3 ABG O2 Sat (Measured) ABG O2 Content ABG Base Excess Junior Test O2 Delivery Device Oxygen Flow Rate Vent Mode Sodium 138 Potassium 5.6 H Chloride 95 L Carbon Dioxide 28 Anion Gap 16 BUN 87 H Creatinine 4.4 H Creat Clearance w eGFR 9.47 POC Glucometer 199.76835 Random Glucose 203 H Calcium 7.9 L Phosphorus Magnesium Ur Random Sodium Ur Random Potassium Ur Random Chloride Urine Creatinine < 13.0 L Blood Type Antibody Screen 08/15/18 08/15/18 08/15/18 05:30 05:30 05:30 WBC 34.0 H* RBC 3.63 Hgb 7.4 L Hct 24.2 L MCV 66.7 L MCH 20.4 L MCHC 30.5 L RDW 17.6 H Plt Count 163 MPV 9.6 Neutrophils % (Manual) Band Neutrophils % Lymphocytes % (Manual) Monocytes % (Manual) Eosinophils % (Manual) Basophils % (Manual) Myelocytes % (Man) Promyelocytes % (Man) Blast Cells % (Manual) Metamyelocytes Hypochromia Toxic Granulation Platelet Estimate Polychromasia Poikilocytosis Anisocytosis Microcytosis Macrocytosis Spherocytes Tear Drop Cells Ovalocytes Acanthocytes (Spur) Puncture Site Right radial ABG pH 7.43 ABG pCO2 at Pt Temp 40.6 ABG pO2 at Pt Temp 82.4 D ABG HCO3 26.5 H ABG O2 Sat (Measured) 95.3 ABG O2 Content 10.2 L ABG Base Excess 2.5 H Junior Test Positive O2 Delivery Device Nasal Oxygen Flow Rate 2l Vent Mode Sodium 133 L Potassium 5.2 H Chloride 93 L Carbon Dioxide 27 Anion Gap 12 BUN 93 H Creatinine 4.6 H Creat Clearance w eGFR 8.99 POC Glucometer Random Glucose 196 H Calcium 7.7 L Phosphorus 7.8 H Magnesium 2.5 H Ur Random Sodium Ur Random Potassium Ur Random Chloride Urine Creatinine Blood Type Antibody Screen 08/15/18 08/15/18 08/15/18 05:30 06:35 11:02 WBC RBC Hgb Hct MCV MCH MCHC RDW Plt Count MPV Neutrophils % (Manual) Band Neutrophils % Lymphocytes % (Manual) Monocytes % (Manual) Eosinophils % (Manual) Basophils % (Manual) Myelocytes % (Man) Promyelocytes % (Man) Blast Cells % (Manual) Metamyelocytes Hypochromia Toxic Granulation Platelet Estimate Polychromasia Poikilocytosis Anisocytosis Microcytosis Macrocytosis Spherocytes Tear Drop Cells Ovalocytes Acanthocytes (Spur) Puncture Site ABG pH ABG pCO2 at Pt Temp ABG pO2 at Pt Temp ABG HCO3 ABG O2 Sat (Measured) ABG O2 Content ABG Base Excess Junior Test O2 Delivery Device Oxygen Flow Rate Vent Mode Sodium Potassium Chloride Carbon Dioxide Anion Gap BUN Creatinine Creat Clearance w eGFR POC Glucometer 194.55613 171.56889 Random Glucose Calcium Phosphorus Magnesium Ur Random Sodium Ur Random Potassium Ur Random Chloride Urine Creatinine Blood Type B POSITIVE Antibody Screen Negative Active Medications Generic Name Dose Route Start Last Admin Trade Name Freq PRN Reason Stop Dose Admin Albuterol Sulfate 1 amp 08/11/18 19:31 08/12/18 01:24 Ventolin 0.083% Nebulizer Soln - NEB 1 amp Q6H PRN Administration SHORT OF BREATH/WHEEZING Albuterol/Ipratropium 1 amp 08/11/18 20:00 08/15/18 08:40 Duoneb - NEB 1 amp RQID [facility]ISA Administration Apixaban 5 mg 08/14/18 22:00 08/15/18 10:30 Eliquis - PO Not Given BID [facility] Budesonide/Formoterol Fumarate 2 puff 08/11/18 22:00 08/15/18 10:31 Symbicort 160/4.5mcg - IH Not Given BID L[facility] Nafcillin Sodium 2 gm/ 100 mls @ 100 mls/hr 08/14/18 10:45 08/15/18 09:42 Dextrose IVPB 100 mls/hr Q4H-IV [facility] Administration Protocol Sodium Chloride 1,000 mls @ 100 mls/hr 08/14/18 17:17 08/14/18 17:28 Normal Saline - IV 100 mls/hr ASDIR [facility] Administration Insulin Aspart 1 vial 08/11/18 22:00 08/15/18 06:37 Novolog Vial Sliding Scale - SQ 2 units ACHS [facility] Administration Protocol Methylprednisolone Sodium Succinate 40 mg 08/14/18 10:00 08/15/18 10:31 Solu-Medrol - IVPUSH 40 mg DAILY [facility] Administration Metoprolol Tartrate 5 mg 08/14/18 12:17 08/15/18 06:28 Lopressor Injection - IVPUSH 5 mg Q6H [facility] Administration Metoprolol Tartrate 5 mg 08/14/18 14:47 Lopressor Injection - IVPUSH Q4H PRN TACHYCARDIA Ondansetron HCl 4 mg 08/11/18 16:43 Zofran Injection IVPUSH Q6H PRN NAUSEA AND/OR VOMITING Pantoprazole Sodium 20 mg 08/12/18 10:00 08/15/18 10:31 Protonix - PO Not Given DAILY [facility] Polyethylene Glycol 17 gm 08/11/18 22:00 08/15/18 10:30 Miralax (For Daily Use) - PO Not Given BID LISA Senna 2 tab 08/11/18 22:00 08/14/18 21:17 Senna - PO 2 tab HS LISA Administration Sodium Chloride 2 spray 08/12/18 13:26 08/12/18 15:14 [place] Nasal [place] - NS 2 spray BID PRN Administration NASAL CONGESTION ASSESSMENT/PLAN: 87 yo female with PMH of a-fib (rate controlled, on eliquis), CHF, COPD (on 2L home o2), HTN, pulmonary HTN, presented to the ED with complaint of SOB with a cough productive of clear sputum for 2 days and admitted for the treatment of CHF exacerbation #Acute hypercapnic hypoxic respiratory distress: resolving, patient had a likely exacerbation 2/2 CHF and COPD Medrol IVPUSH 30 QD -Duonebs scheduled QID; albuterol PRN -Pulmonology on board -Continue pulmicort inhaler -on 2L nasal cannula -continue daily weights -BiPap PRN #Hematuria: continuing to occur, likely 2/2 trauma vs acute bladder/kidney pathology -H&H 7.4/21.1 today 08/15/18 - CBI Discontinued per Urology. Eliquis resumed. -Bladder/kidney US ordered--> 08/08/18: [place]. Partially distended urinary bladder that is at least partially filled with debris. Cannot rule out blood clots. Cannot adequately evaluate its posterior wall. Bilateral ureteral jets were not visualized. Further evaluation of the urinary bladder is needed. -KUB no signs of obstructing stones. Urology on board. -08/11/19 S/p Cystourethroscopy, evacuation of clots, fulguration of bleeders placement 3 way 30 ml 24 fr rodriguez with continuos bladder irrigation. -Renal Sonogram 08/15/18: IMPRESSION: Mild to moderate right renal hydronephrosis and dilatation of the proximal right ureter at appears to have slightly worsened since see prior exam. Partially exophytic left renal lower pole cyst measuring 2.7 cm and mild left renal hydronephrosis. -May need Percutaneous Nephrostomy tube insertion due to persistent unrelenting R hydronephrosis. Consult I.D? #SANAM, Hyperkalemia -Renal Dr Del Angel on board - Potassium 5.8 yesterday. S/P Insulin 10 U + 1 Amp D50, Sodium Bicarb, Ca Gluconate 1 gm, 3 runs of Albuterol. 5.2 today 08/15/18 - Monitor urine output/Creatinine # WBC >40K -Nafcillin 2 gm Q4H -Blood Cultures---MS Staph Aureus -Urine Cultures---MS Staph Aureus #Atrial fibrillation: stable -Eliquis Resumed per Urology. CBI D/C'ed -Lopresor IVPUSH -Echo--> EF 60-65%, moderately to severe LA Dilation. -LE Dopplers negative for any DVT May need CEDRIC if persistently bacteremic #Sarcoidosis: chronic -Already on steroids for above problems, continue steroids. #HLD: stable -Continue Lipitor FEN: NS Monitor electrolytes NPO PPX: DVT - Eliquis 5 mg po daily GI - Protonix 20mg qDaily Dispo: ICU l Visit type - Emergency Visit Emergency Visit: Yes ED Registration Date: 07/25/18 Care time: The patient presented to the Emergency Department on the above date and was hospitalized for further evaluation of their emergent condition. - New Patient This patient is new to me today: No - Critical Care Critical Care patient: Yes Total Critical Care Time (in minutes): 35 Critical Care Statement: The care of this patient involved high complexity decision making to prevent further life threatening deterioration of the patient 's condition and/or to evaluate & treat vital organ system(s) failure or risk of failure. - Discharge Referral Referred to [facility] Med P.C.: No
[2018-08-15] MEDS ORDERED: methylPREDNISolone NA SUCC 40 MG/1 ML VIAL IVPUSH SCH (12:45)
[2018-08-15 12:58] LABS: HEMATOCRIT 24.1 % (32.4-45.2); HEMOGLOBIN 7.4 GM/dL (10.7-15.3); MCH 20.4 pg (25.7-33.7); MCHC 30.7 g/dl (32.0-36.0); MEAN CELL VOLUME 66.6 fl (80-96); MEAN PLT VOLUME 9.5 fl (7.5-11.1); PLATELET COUNT 174 K/MM3 (134-434); RBC 3.62 M/mm3 (3.60-5.2); RDW 17.7 % (11.6-15.6)
[2018-08-15 13:03] LABS: WHITE BLOOD COUNT 34.5 K/mm3 (4.0-10.0)
--- NOTE | 2018-08-15 13:27 | PN ---
Teaching Attending Note Name of Resident: Jacqueline Bains ATTENDING PHYSICIAN STATEMENT I saw and evaluated the patient. I reviewed the resident's note and discussed the case with the resident. I agree with the resident's findings and plan as documented. SUBJECTIVE: Pt seen and examined in the ICU. Remains lethargic and worsening renal function. Repeat blood cultures pending. No fevers recorded. OBJECTIVE: Vital Signs Period Temp Pulse Resp BP Sys/Garza Pulse Ox Last 24 Hr 97.2 F-98.0 F 100-119 18- 118-138/57-92 92-100 Intake & Output 08/12/18 08/13/18 08/14/18 08/15/18 23:59 23:59 23:59 23:59 Intake Total 28540 12905 07400 860 Output Total 87641 07344 93095 0 Balance 4794 1200 2385 860 Weight 68.663 kg 69.8 kg 69.8 kg Gen: lethargic Heart: tachycaric, irregular Lung: scattered rhonchi, wheezes Abd: soft, nontender Ext: no edema CBC, BMP 08/15/18 12:50 08/15/18 05:30 Active Medications Albuterol Sulfate (Ventolin 0.083% Nebulizer Soln -) 1 amp NEB Q6H PRN PRN Reason: SHORT OF BREATH/WHEEZING Last Admin: 08/12/18 01:24 Dose: 1 amp Albuterol/Ipratropium (Duoneb -) 1 amp NEB RQID [facility] Last Admin: 08/15/18 08:40 Dose: 1 amp Apixaban (Eliquis -) 5 mg PO BID [facility] Last Admin: 08/15/18 10:30 Dose: Not Given Budesonide/Formoterol Fumarate (Symbicort 160/4.5mcg -) 2 puff IH BID [facility] Last Admin: 08/15/18 10:31 Dose: Not Given Nafcillin Sodium 2 gm/ (Dextrose) 100 mls @ 100 mls/hr IVPB Q4H-IV [facility]; Protocol Last Admin: 08/15/18 09:42 Dose: 100 mls/hr Sodium Chloride (Normal Saline -) 1,000 mls @ 100 mls/hr IV ASDIR [facility] Last Admin: 08/14/18 17:28 Dose: 100 mls/hr Insulin Aspart (Novolog Vial Sliding Scale -) 1 vial SQ ACHS [facility]; Protocol Last Admin: 08/15/18 12:21 Dose: 2 units Methylprednisolone Sodium Succinate (Solu-Medrol -) 30 mg IVPUSH DAILY [facility] Metoprolol Tartrate (Lopressor Injection -) 5 mg IVPUSH Q6H [facility] Last Admin: 08/15/18 12:21 Dose: 5 mg Metoprolol Tartrate (Lopressor Injection -) 5 mg IVPUSH Q4H PRN PRN Reason: TACHYCARDIA Ondansetron HCl (Zofran Injection) 4 mg IVPUSH Q6H PRN PRN Reason: NAUSEA AND/OR VOMITING Pantoprazole Sodium (Protonix -) 20 mg PO DAILY [facility] Last Admin: 08/15/18 10:31 Dose: Not Given Polyethylene Glycol (Miralax (For Daily Use) -) 17 gm PO BID [facility] Last Admin: 08/15/18 10:30 Dose: Not Given Senna (Senna -) 2 tab PO HS [facility] Last Admin: 08/14/18 21:17 Dose: 2 tab Sodium Chloride ([place] Nasal [place] -) 2 spray NS BID PRN PRN Reason: NASAL CONGESTION Last Admin: 08/12/18 15:14 Dose: 2 spray ASSESSMENT AND PLAN: Acute on Chronic Hypoxic and Hypercapneic Respiratory Failure Acute on Chronic Diastolic Heart Failure Acute COPD Exacerbation Sarcoidosis Severe Pulmonary HTN Atrial Fibrillation HTN Hyperlipidemia Hematuria s/p Cystoscopy Staph Bacteremia Sepsis Acute Kidney Injury Right Hydronephrosis - antibiotics per ID - f/u repeat cultures - may need CEDRIC if persistently bacteremic - taper medrol - inhaled bronchodilators - O2 to keep SpO2>90% - IVF - monitor urine output, creatinine - rate control - continue anticoagulation - continue ICU monitoring - prognosis guarded critical care time spent in reviewing chart, evaluating patient and formulating plan 35 min
--- NOTE | 2018-08-15 13:34 | PN ---
Progress Note, Physician History of Present Illness: Pt seen and examined at bedside. She remains in the ICU. Pt is arousable but appears fatigued. Pt has not made much urine overnight. - Current Medication List Current Medications: Active Medications Albuterol Sulfate (Ventolin 0.083% Nebulizer Soln -) 1 amp NEB Q6H PRN PRN Reason: SHORT OF BREATH/WHEEZING Last Admin: 08/12/18 01:24 Dose: 1 amp Albuterol/Ipratropium (Duoneb -) 1 amp NEB RQID LISA Last Admin: 08/15/18 11:30 Dose: 1 amp Apixaban (Eliquis -) 5 mg PO BID [facility] Last Admin: 08/15/18 10:30 Dose: Not Given Budesonide/Formoterol Fumarate (Symbicort 160/4.5mcg -) 2 puff IH BID [facility] Last Admin: 08/15/18 10:31 Dose: Not Given Nafcillin Sodium 2 gm/ (Dextrose) 100 mls @ 100 mls/hr IVPB Q4H-IV LISA; Protocol Last Admin: 08/15/18 09:42 Dose: 100 mls/hr Sodium Chloride (Normal Saline -) 1,000 mls @ 100 mls/hr IV ASDIR LISA Last Admin: 08/14/18 17:28 Dose: 100 mls/hr Insulin Aspart (Novolog Vial Sliding Scale -) 1 vial SQ ACHS LISA; Protocol Last Admin: 08/15/18 12:21 Dose: 2 units Methylprednisolone Sodium Succinate (Solu-Medrol -) 30 mg IVPUSH DAILY [facility] Metoprolol Tartrate (Lopressor Injection -) 5 mg IVPUSH Q6H LISA Last Admin: 08/15/18 12:21 Dose: 5 mg Metoprolol Tartrate (Lopressor Injection -) 5 mg IVPUSH Q4H PRN PRN Reason: TACHYCARDIA Ondansetron HCl (Zofran Injection) 4 mg IVPUSH Q6H PRN PRN Reason: NAUSEA AND/OR VOMITING Pantoprazole Sodium (Protonix -) 20 mg PO DAILY [facility] Last Admin: 08/15/18 10:31 Dose: Not Given Polyethylene Glycol (Miralax (For Daily Use) -) 17 gm PO BID [facility] Last Admin: 08/15/18 10:30 Dose: Not Given Senna (Senna -) 2 tab PO HS [facility] Last Admin: 08/14/18 21:17 Dose: 2 tab Sodium Chloride ([place]al [place] -) 2 spray NS BID PRN PRN Reason: NASAL CONGESTION Last Admin: 08/12/18 15:14 Dose: 2 spray - Objective Vital Signs: Vital Signs Temperature 98.0 F 08/15/18 10:00 Pulse Rate 102 H 08/15/18 12:21 Respiratory Rate 18 08/15/18 12:00 Blood Pressure 120/75 08/15/18 12:21 O2 Sat by Pulse Oximetry (%) 94 L 08/15/18 09:00 Constitutional: Yes: Calm Eyes: Yes: Conjunctiva Clear HENT: Yes: Atraumatic Cardiovascular: Yes: S2 Respiratory: Yes: On Nasal O2 Gastrointestinal: Yes: Soft Genitourinary: Yes: Rodriguez Present, Oliguria Musculoskeletal: Yes: Muscle Weakness Edema: No Neurological: Yes: Oriented, Other (drowsy) Labs: CBC, BMP 08/15/18 12:50 08/15/18 05:30 Problem List - Problems (1) SANMA (acute kidney injury) Code(s): N17.9 - ACUTE KIDNEY FAILURE, UNSPECIFIED (2) CHF (congestive heart failure) Code(s): I50.9 - HEART FAILURE, UNSPECIFIED (3) Abdominal pain Code(s): R10.9 - UNSPECIFIED ABDOMINAL PAIN (4) Atrial fibrillation Code(s): I48.91 - UNSPECIFIED ATRIAL FIBRILLATION Qualifiers: Qualified Code(s): I48.2 - Chronic atrial fibrillation Assessment/Plan Current Medications Generic Name Dose Route Start Last Admin Trade Name Freq PRN Reason Stop Dose Admin Albuterol Sulfate 1 amp 08/11/18 19:31 08/12/18 01:24 Ventolin 0.083% Nebulizer Soln - NEB 1 amp Q6H PRN Administration SHORT OF BREATH/WHEEZING Albuterol/Ipratropium 1 amp 08/11/18 20:00 08/15/18 11:30 Duoneb - NEB 1 amp RQID LISA Administration Apixaban 5 mg 08/14/18 22:00 08/15/18 10:30 Eliquis - PO Not Given BID LISA Budesonide/Formoterol Fumarate 2 puff 08/11/18 22:00 08/15/18 10:31 Symbicort 160/4.5mcg - IH Not Given BID LISA Nafcillin Sodium 2 gm/ 100 mls @ 100 mls/hr 08/14/18 10:45 08/15/18 09:42 Dextrose IVPB 100 mls/hr Q4H-IV LISA Administration Protocol Sodium Chloride 1,000 mls @ 100 mls/hr 08/14/18 17:17 08/14/18 17:28 Normal Saline - IV 100 mls/hr ASDIR LISA Administration Insulin Aspart 1 vial 08/11/18 22:00 08/15/18 12:21 Novolog Vial Sliding Scale - SQ 2 units ACHS LISA Administration Protocol Methylprednisolone Sodium Succinate 30 mg 08/15/18 12:45 Solu-Medrol - IVPUSH DAILY LISA Metoprolol Tartrate 5 mg 08/14/18 12:17 08/15/18 12:21 Lopressor Injection - IVPUSH 5 mg Q6H LISA Administration Metoprolol Tartrate 5 mg 08/14/18 14:47 Lopressor Injection - IVPUSH Q4H PRN TACHYCARDIA Ondansetron HCl 4 mg 08/11/18 16:43 Zofran Injection IVPUSH Q6H PRN NAUSEA AND/OR VOMITING Pantoprazole Sodium 20 mg 08/12/18 10:00 08/15/18 10:31 Protonix - PO Not Given DAILY LISA Polyethylene Glycol 17 gm 08/11/18 22:00 08/15/18 10:30 Miralax (For Daily Use) - PO Not Given BID LISA Senna 2 tab 08/11/18 22:00 08/14/18 21:17 Senna - PO 2 tab HS LISA Administration Sodium Chloride 2 spray 08/12/18 13:26 08/12/18 15:14 [place] Nasal [place] - NS 2 spray BID PRN Administration NASAL CONGESTION Impression 1. SANAM 2. hypotension 3. pulm HTN 4. CHF 5. hematuria 6. sarcoid 7. COPD 8. a-fib 9. hx of HTN 10. hyperlipidemia 11. hyperkalemia 12. mild hydro on ultrasound Plan - flush rodriguez - recall urology as pt has bilateral hydro - renal function is worsening - cont fluids - likely atn - will send more extensive renal workup - may need HD in next few days if she does not improve - bp is improved - abx per ID - daily cxr - will follow Dr Del Angel
--- NOTE | 2018-08-15 13:48 | PN ---
Teaching Attending Note Name of Resident: Marco A Colon ATTENDING PHYSICIAN STATEMENT I saw and evaluated the patient. I reviewed the resident's note and discussed the case with the resident. I agree with the resident's findings and plan as documented. SUBJECTIVE:c/o feeling weak. states her pain is improved but is uncomfortable. just wants to be left alone. denies CP, SOB, fever, chills, N/V/C/D OBJECTIVE: Last Vital Signs Temp Pulse Resp BP Pulse Ox 98.0 F 102 H 18 120/75 94 L 08/15/18 10:00 08/15/18 12:21 08/15/18 12:00 08/15/18 12:21 08/15/18 09:00 Intake & Output 08/12/18 08/13/18 08/14/18 08/15/18 23:59 23:59 23:59 23:59 Intake Total 17535 68713 62696 860 Output Total 00565 45371 00183 0 Balance 4794 1200 2385 860 Weight 151 lb 6 oz 153 lb 14.122 oz 153 lb 14.122 oz General lethargic, slow to respond CV S1 S2 tachy irregular Lungs CTA anteriorly. no wheezing, poor inspiratory effort Abdomen soft +suprapubic tenderness no distention. BS + Extremities no pedal edema ASSESSMENT AND PLAN: 81 yo F with PMhx of sarcoidosis diagnosed in 1985, Chronic diastolic HF, severe pulmonary HTN, COPD on 2L home oxygen, AFib on eliquis, HTN, HLD, frequent admissions with CHF/respiratory distress admitted with acute hypercapneic/hypoxic respiratory failure, CHF exaerbation. Course complicated by development of hematuria. Cystoscopy was done where pt developed hypotension requiring pressors and was placed iN ICU. 1. Acute hypercapneic/hypoxic respiratory failure-due to CHF and COPD exacerbation. currently 99% on 1L NC. on bipap overnight. medrol 40mg daily. chest pt, Nebs and inhalers. pulmonary and cardio on board 2. Acute diastolic heart failure exacerbation-CXR starting to show some congestion. will reduce IVF at this time. hold lasix. Monitor electrolytes, daily weights, cardio on board 3. Hemorrhagic cystitis-CBI stopped yesterday. starting to have some hematuria noted in the tubing. hgb still trending down. call placed out to urology for further management. 4. Hypotension- possible due to sedation during the procedure vs development of sepsis. Received dose of Vaso and epi post-operatively. has not require ggt. Vitals have been stable. will cont to monitor 5. abdominal pain- points to suprapubic region. persists however overall improved. bowel regimen. 6. SANAM- due to hypoperfusion. starting to stabilize. will reduce IVF as starting to show signs of volume overload. renal u/s ordered to re-assess hydro seen prior to procedure. nephro consulted.avoid nephrotoxic agents. no eosinophilia 7. Tropinemia- TNI peaked at 2. likely due to hypoperfusion from procedure. no indication for workup at this time. medical management 8. afib- improved. cont to titrate metoprolol IV as tolerated. refusing oral meds. on eliquis. cardio on board. 9. MSSA Bacteremia-with urine also showing MSSA. echo negative for endocarditis. on nafcillin day 2. repeat Cx sent today. ID on board 10. 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 Sarcoidosis 13. COPD on 2L home oxygen 14. HTN 15. dyslipidemia 16. DVT ppx- eliquis 17. MICU monitoring The care of this patient involved high complexity decision making to prevent further life threatening deterioration of the patient's condition and/or to evaluate & treat vital organ system(s) failure or risk of failure. 37 mins
--- NOTE | 2018-08-15 15:45 | PN ---
Physical Exam: SUBJECTIVE: Patient seen and examined at bedside. Patient still reports abdominal pain and has no appetite, but drinks water when given. No urine output overnight. Patient on Bipap overnight. OBJECTIVE: Vital Signs Period Temp Pulse Resp BP Sys/Graza Pulse Ox Last 24 Hr 97.2 F-98.0 F 66-119 18-29 118-138/57-92 92-100 GENERAL: The patient is somnolent but arousable, on 3L NC. NECK: Trachea midline, full range of motion, supple. LUNGS: +scattered rhonchi bilaterally HEART: Regular rate and rhythm, S1, S2 without murmur, rub or gallop. ABDOMEN: Soft, +mild tenderness, nondistended, normoactive bowel sounds. EXTREMITIES: 2+ pulses, warm, well-perfused, no edema. SKIN: Warm, dry, normal turgor. Laboratory Results - last 24 hr 08/13/18 08/13/18 08/14/18 17:02 21:28 05:19 WBC RBC Hgb Hct MCV MCH MCHC RDW Plt Count MPV Puncture Site ABG pH ABG pCO2 at Pt Temp ABG pO2 at Pt Temp ABG HCO3 ABG O2 Sat (Measured) ABG O2 Content ABG Base Excess Junior Test O2 Delivery Device Oxygen Flow Rate Vent Mode Sodium Potassium Chloride Carbon Dioxide Anion Gap BUN Creatinine Creat Clearance w eGFR POC Glucometer 258.23618 202.02911 212.00044 Random Glucose Calcium Phosphorus Magnesium Ur Random Sodium Ur Random Potassium Ur Random Chloride Urine Creatinine Blood Type Antibody Screen 08/14/18 08/14/18 08/14/18 11:35 15:30 16:15 WBC RBC Hgb Hct MCV MCH MCHC RDW Plt Count MPV Puncture Site Right radial ABG pH 7.45 ABG pCO2 at Pt Temp 40.1 ABG pO2 at Pt Temp 183.0 H* D ABG HCO3 27.6 H ABG O2 Sat (Measured) 99.2 H ABG O2 Content 11.7 L ABG Base Excess 3.8 H Junior Test Positive O2 Delivery Device Oxygen Flow Rate No Result Required. Vent Mode Sodium 132 L Potassium 5.8 H Chloride 91 L Carbon Dioxide 29 Anion Gap 13 BUN 89 H Creatinine 4.2 H Creat Clearance w eGFR 9.99 POC Glucometer 173.06017 Random Glucose 210 H Calcium 8.2 L Phosphorus Magnesium Ur Random Sodium Ur Random Potassium Ur Random Chloride Urine Creatinine Blood Type Antibody Screen 08/14/18 08/14/18 08/14/18 17:00 19:30 19:30 WBC RBC Hgb Hct MCV MCH MCHC RDW Plt Count MPV Puncture Site ABG pH ABG pCO2 at Pt Temp ABG pO2 at Pt Temp ABG HCO3 ABG O2 Sat (Measured) ABG O2 Content ABG Base Excess Junior Test O2 Delivery Device Oxygen Flow Rate Vent Mode Sodium Potassium Chloride Carbon Dioxide Anion Gap BUN Creatinine Creat Clearance w eGFR POC Glucometer [phone] Random Glucose Calcium Phosphorus Magnesium Ur Random Sodium 158 Ur Random Potassium < 9.0 L Ur Random Chloride 163 Urine Creatinine < 13.0 L Blood Type Antibody Screen 08/14/18 08/14/18 08/15/18 20:30 21:25 05:30 WBC 34.0 H* RBC 3.63 Hgb 7.4 L Hct 24.2 L MCV 66.7 L MCH 20.4 L MCHC 30.5 L RDW 17.6 H Plt Count 163 MPV 9.6 Puncture Site ABG pH ABG pCO2 at Pt Temp ABG pO2 at Pt Temp ABG HCO3 ABG O2 Sat (Measured) ABG O2 Content ABG Base Excess Junior Test O2 Delivery Device Oxygen Flow Rate Vent Mode Sodium 138 Potassium 5.6 H Chloride 95 L Carbon Dioxide 28 Anion Gap 16 BUN 87 H Creatinine 4.4 H Creat Clearance w eGFR 9.47 POC Glucometer 199.38893 Random Glucose 203 H Calcium 7.9 L Phosphorus Magnesium Ur Random Sodium Ur Random Potassium Ur Random Chloride Urine Creatinine Blood Type Antibody Screen 08/15/18 08/15/18 08/15/18 05:30 05:30 05:30 WBC RBC Hgb Hct MCV MCH MCHC RDW Plt Count MPV Puncture Site Right radial ABG pH 7.43 ABG pCO2 at Pt Temp 40.6 ABG pO2 at Pt Temp 82.4 D ABG HCO3 26.5 H ABG O2 Sat (Measured) 95.3 ABG O2 Content 10.2 L ABG Base Excess 2.5 H Junior Test Positive O2 Delivery Device Nasal Oxygen Flow Rate 2l Vent Mode Sodium 133 L Potassium 5.2 H Chloride 93 L Carbon Dioxide 27 Anion Gap 12 BUN 93 H Creatinine 4.6 H Creat Clearance w eGFR 8.99 POC Glucometer Random Glucose 196 H Calcium 7.7 L Phosphorus 7.8 H Magnesium 2.5 H Ur Random Sodium Ur Random Potassium Ur Random Chloride Urine Creatinine Blood Type B POSITIVE Antibody Screen Negative 08/15/18 08/15/18 08/15/18 06:35 11:02 12:50 WBC 34.5 H* RBC 3.62 Hgb 7.4 L Hct 24.1 L MCV 66.6 L MCH 20.4 L MCHC 30.7 L RDW 17.7 H Plt Count 174 MPV 9.5 Puncture Site ABG pH ABG pCO2 at Pt Temp ABG pO2 at Pt Temp ABG HCO3 ABG O2 Sat (Measured) ABG O2 Content ABG Base Excess Junior Test O2 Delivery Device Oxygen Flow Rate Vent Mode Sodium Potassium Chloride Carbon Dioxide Anion Gap BUN Creatinine Creat Clearance w eGFR POC Glucometer 194.23666 171.60680 Random Glucose Calcium Phosphorus Magnesium Ur Random Sodium Ur Random Potassium Ur Random Chloride Urine Creatinine Blood Type Antibody Screen Active Medications Generic Name Dose Route Start Last Admin Trade Name Freq PRN Reason Stop Dose Admin Albuterol Sulfate 1 amp 08/11/18 19:31 08/12/18 01:24 Ventolin 0.083% Nebulizer Soln - NEB 1 amp Q6H PRN Administration SHORT OF BREATH/WHEEZING Albuterol/Ipratropium 1 amp 08/11/18 20:00 08/15/18 11:30 Duoneb - NEB 1 amp RQID LISA Administration Apixaban 5 mg 08/14/18 22:00 08/15/18 10:30 Eliquis - PO Not Given BID LISA Budesonide/Formoterol Fumarate 2 puff 08/11/18 22:00 08/15/18 10:31 Symbicort 160/4.5mcg - IH Not Given BID LISA Nafcillin Sodium 2 gm/ 100 mls @ 100 mls/hr 08/14/18 10:45 08/15/18 14:42 Dextrose IVPB 100 mls/hr Q4H-IV LISA Administration Protocol Sodium Chloride 1,000 mls @ 100 mls/hr 08/14/18 17:17 08/14/18 17:28 Normal Saline - IV 100 mls/hr ASDIR LISA Administration Insulin Aspart 1 vial 08/11/18 22:00 08/15/18 12:21 Novolog Vial Sliding Scale - SQ 2 units ACHS LISA Administration Protocol Methylprednisolone Sodium Succinate 30 mg 08/15/18 12:45 Solu-Medrol - IVPUSH DAILY LISA Metoprolol Tartrate 5 mg 08/14/18 12:17 08/15/18 12:21 Lopressor Injection - IVPUSH 5 mg Q6H LISA Administration Metoprolol Tartrate 5 mg 08/14/18 14:47 Lopressor Injection - IVPUSH Q4H PRN TACHYCARDIA Ondansetron HCl 4 mg 08/11/18 16:43 Zofran Injection IVPUSH Q6H PRN NAUSEA AND/OR VOMITING Pantoprazole Sodium 20 mg 08/12/18 10:00 08/15/18 10:31 Protonix - PO Not Given DAILY LISA Polyethylene Glycol 17 gm 08/11/18 22:00 08/15/18 10:30 Miralax (For Daily Use) - PO Not Given BID LISA Senna 2 tab 08/11/18 22:00 08/14/18 21:17 Senna - PO 2 tab HS LISA Administration Sodium Chloride 2 spray 08/12/18 13:26 08/12/18 15:14 [place] Nasal [place] - NS 2 spray BID PRN Administration NASAL CONGESTION ASSESSMENT/PLAN: Patient is an 87 yo female with PMH of a-fib (rate controlled, on eliquis), COPD (on 2L home o2), HTN, pulmonary HTN, presented with gross hematuria. Renal and bladder US revealed right hydronephrosis and multiple filling defects in the bladder. Patient is s/p cystoscopy, clot evacuation, bladder biopsy and bladder fulgeration. #Pulmonary 1)Acute hypoxic/hypercapneic respiratory failure likely secondary to CHF/COPD exacerbation -Was on Bipap overnight, this morning tolerated Nasal canula. -Duoneb QID -Albuterol PRN -Decreased IV solu-medrol to 30mg daily -CXR and ABG in AM #Cardiovascular 1)Hypotension, resolved -gen-operative hypotension, likely 2/2 sepsis -Cardiology (Dr. Mendez) consulted. Recommendations appreciated. -trop 2.0 the following day, trending down--suspect Type II ID sec to hypoperfusion/sepsis (+/- underlying stable CAD), given associated finding of bacteremia. ECG 08/[address] depressions inferior leads, improved on 08/12 tracing--cannot exclude Type I ID at time of events. -AC initially held for gross hematuria with large clots/hydronephrosis--now back on eliquis (for afib). -BB and afib HR control as doing -hemodynamically stable, observe BPs as titrate AF meds 2)Atrial Fibrillation -HR still tachycardic, but more controlled with increased dose of Lopressor -Continue Lopressor to 5mg IV q6h with Lopressor 5mg q4h PRN doses -if HRs rise will add digoxin -eliquis resumed--monitor hematuria output 3)Acute diastolic CHF -lasix on hold, gentle IVF--observe chf status closely 4)Troponinemia -trop peaked at 2.0, trended down -likely demand ischemia from hypoperfusion/sepsis -ECG 08/[address] depressions inferior leads, improved on tracing--cannot exclude Type I ID at time of events. 5)Hypertension -BP controlled -cont current meds #Infectious disease 1)Bacteremia: likely 2/2 UTI -Blood cx: +Presumptive MSSA, pending organism -Repeat blood cultures pending. -urine culture positive for Staph. Repeat urine cultures pending -Infectious Disease (Dr. Garcia) consulted. Recommendations appreciated. -IV Nafcillin 2gm q4h -IV NS @100ml/hr #Genitourinary 1)Hemorrahagic cystitis -Patient underwent cystoscopy 08/11/2018 for gross hematuria,clot retention, rt. hydronephrosis -draining light pink colored urine, H/H is stable. -CBI discontinued today -Eliquis resumed -Renal US: Mild to moderate right renal hydronephrosis and dilatation of the proximal right ureter that appears to have slightly worsened since prior exam. Partially exophytic left renal lwoer pole cyst measuring 2.7cm and mild left renal hydronephrosis. -Urology (Dr. Colon) consulted. #Nephrology 1)SANAM -likely from ATN and is likely multifactorial. Avoid hypotension -BUN/Cr: 93/4.6 -Nephrology (Dr. Del Angel) consulted. Recommendations appreciated. -monitor bp and pressors to map of 65 -pt now on nafcillin, was on zosyn and did get a dose of vanco -follow up repeat labs -flush rodriguez -recall urology as pt has bilateral hydro -renal function is worsening -- likely ATN -will send more extensive renal workup -may need HD in next few days if she does not improve -continue fluids -caution with fluids as she has CHF 2)Hyperkalemia: K 5.3 -Pt given KCl added on IVF overnight -Discontinued KCl -Will continue to monitor #FEN -IV NS @100ml/hr -routine bmp monitoring -sodium controlled diet #Prophylaxis 1)DVT - On Eliquis 5mg BID 2)GI - Protonix 20mg daily #Disposition -ICU for closer monitoring -full code Visit type - Emergency Visit Emergency Visit: Yes ED Registration Date: 07/25/18 Care time: The patient presented to the Emergency Department on the above date and was hospitalized for further evaluation of their emergent condition. - New Patient This patient is new to me today: Yes Date on this admission: 08/15/18 - Critical Care Critical Care patient: Yes Total Critical Care Time (in minutes): 45 Critical Care Statement: The care of this patient involved high complexity decision making to prevent further life threatening deterioration of the patient 's condition and/or to evaluate & treat vital organ system(s) failure or risk of failure.
--- NOTE | 2018-08-15 16:14 | EKG ---
Test Reason : Blood Pressure : / mmHG Vent. Rate : 109 BPM Atrial Rate : 109 BPM P-R Int : 000 ms QRS Dur : 082 ms QT Int : 328 ms P-R-T Axes : 264 002 -39 degrees QTc Int : 441 ms UNUSUAL P AXIS AND SHORT OR, PROBABLE JUNCTIONAL TACHYCARDIA NONSPECIFIC ST ABNORMALITY ABNORMAL ECG WHEN COMPARED WITH ECG OF 14-AUG-2018 18:14, NO SIGNIFICANT CHANGE WAS FOUND Confirmed by MD TRISH, ZENON ([id number]) on 08/15/2018 4:14:28 PM Referred By: LIZZY Confirmed By:ZENON CHAMBERS MD
--- NOTE | 2018-08-15 16:16 | EKG ---
Test Reason : Blood Pressure : / mmHG Vent. Rate : 101 BPM Atrial Rate : 101 BPM P-R Int : 000 ms QRS Dur : 090 ms QT Int : 350 ms P-R-T Axes : 000 -14 -43 degrees QTc Int : 453 ms ACCELERATED JUNCTIONAL RHYTHM NONSPECIFIC ST ABNORMALITY ABNORMAL ECG WHEN COMPARED WITH ECG OF 12-AUG-2018 13:14, JUNCTIONAL RHYTHM HAS REPLACED ATRIAL FIBRILLATION ST NOW DEPRESSED IN ANTERIOR LEADS Confirmed by MD TRISH, ZENON ([id number]) on 08/15/2018 4:15:42 PM Referred By: Confirmed By:ZENON CHAMBERS MD
[2018-08-15] MEDS: SODIUM CHLORIDE 1,000 ML IV SCH (17:55)
--- NOTE | 2018-08-15 18:16 | PATH ---
Cytology Non-Gynecological Report Patient Name: JAMILA OREILLY [facility]. Rec. 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 Specimen(s) Received URINE VOIDED Clinical History Hematuria Final Diagnosis URINE FOR CYTOLOGY: SATISFACTORY FOR EVALUATION. NEGATIVE FOR CARCINOMA. BLOOD ADMIXED WITH ACUTE INFLAMMATORY EXUDATE. SEE CONCURRENT PATHOLOGY REPORT [id number]. Electronically Signed Nicolasa Yepez M.D. Gross Description Approximately 50cc of bloody fluid received fresh. Two cytofunnels and one block prepared.
--- NOTE | 2018-08-15 18:26 | PATH ---
Surgical Pathology Report Patient Name: JAMILA OREILLY [facility]. Rec. 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 Specimen(s) Received BLADDER TISSUE Clinical History Hematuria Final Diagnosis BLADDER TISSUE, EXCISION: BLOOD CLOT ADMIXED WITH ACUTE INFLAMMATORY EXUDATE. NO EPITHELIAL COMPONENT PRESENT. Electronically Signed Nicolasa Yepez M.D. Gross Description Received in formalin labeled "bladder tissue," is a 2.3 x 2.0 x 0.2 cm aggregate of treviño-brown soft tissue fragments admixed with blood clot. The formalin is filtered and the specimen is entirely submitted in one cassette. /08/14/2018 saudi/08/14/2018
[2018-08-15 19:44] LABS: HEMATOCRIT 24.7 % (32.4-45.2); HEMOGLOBIN 7.6 GM/dL (10.7-15.3); MCH 20.6 pg (25.7-33.7); MCHC 30.6 g/dl (32.0-36.0); MEAN CELL VOLUME 67.2 fl (80-96); MEAN PLT VOLUME 9.5 fl (7.5-11.1); PLATELET COUNT 204 K/MM3 (134-434); RBC 3.67 M/mm3 (3.60-5.2); RDW 17.8 % (11.6-15.6)
[2018-08-15 19:54] LABS: WHITE BLOOD COUNT 32.3 K/mm3 (4.0-10.0)
--- NOTE | 2018-08-15 20:18 | PN ---
Progress Note (short form) - Note Progress Note: Per day team, it was signed out to me to contact IR for possible emergent nephrostomy tube. IR was not contacted during the day. Unable to reach IR at this time, made two attempts. Will inform day team in the morning.
[2018-08-15] MEDS: SENNOSIDES 8.6MG TABLET (FP) PO SCH (22:02)
[2018-08-16] MEDS: NAFCILLIN - 2 GM in DEXTROSE 5%-WATER - 100 ML IVPB SCH ×6 (02:40→22:22)
[2018-08-16] MEDS: METOPROLOL TARTRATE 5 MG/5 ML VIAL IVPUSH SCH ×4 (06:30→18:42)
[2018-08-16] MEDS ORDERED: DEXTROSE 50%-WATER 25 GM/50 ML DISP.SYRIN ONE ×4 (06:38→22:59)
[2018-08-16] MEDS ORDERED: DEXTROSE 50%-WATER - 25 GM/50 ML VIAL IVPUSH ONE ×6 (06:41→22:56)
[2018-08-16] MEDS: INSULIN SLIDING SCALE (NOVOLOG) 1 VIAL SQ SCH ×4 (06:43→22:34)
[2018-08-16 06:47] LABS: ANION GAP 12 MMOL/L (8-16); BLOOD UREA NITROGEN 103 mg/dL (7-18); CALCIUM 7.2 mg/dL (8.5-10.1); CHLORIDE 92 mmol/L (98-107); CO2 27 mmol/L (21-32); CREATININE 5.3 mg/dL (0.55-1.3); GLUCOSE,RANDOM 97 mg/dL (74-106); MAGNESIUM 2.5 mg/dL (1.8-2.4); SODIUM 132 mmol/L (136-145)
[2018-08-16 06:59] LABS: HEMATOCRIT 23.7 % (32.4-45.2); HEMOGLOBIN 7.2 GM/dL (10.7-15.3); MCH 20.5 pg (25.7-33.7); MCHC 30.4 g/dl (32.0-36.0); MEAN CELL VOLUME 67.3 fl (80-96); MEAN PLT VOLUME 9.3 fl (7.5-11.1); PLATELET COUNT 168 K/MM3 (134-434); RBC 3.53 M/mm3 (3.60-5.2); WHITE BLOOD COUNT 27.3 K/mm3 (4.0-10.0)
[2018-08-16 07:16] LABS: PHOSPHOROUS > 9.0 mg/dL (2.5-4.9); POTASSIUM 6.3 mmol/L (3.5-5.1)
[2018-08-16 07:17] LABS: ALLENS TEST POSITIVE; ARTERIAL BLD GAS O2 SATURATION 93.1 % (90-98.9); ARTERIAL BLOOD GAS BASE EXCESS 2.2 meq/l (-2-2); ARTERIAL BLOOD GAS PCO2 40.2 mmHg (35-45); ARTERIAL BLOOD GAS PO2 71.4 mmHg (68-100); ARTERIAL BLOOD GAS pH 7.43 (7.35-7.45)
[2018-08-16] MEDS ORDERED: CALCIUM GLUCONATE 10% - 1,000 MG/10 ML VIAL IVPUSH ONE (07:25)
[2018-08-16] MEDS ORDERED: SODIUM CHLORIDE 1,000 ML IV SCH (08:25)
[2018-08-16] MEDS: ALBUTEROL SO4 2.5/IPRATROPIUM 0.5 INH SOL 3 ML VIAL.NEB. NEB SCH ×3 (08:40→16:03)
[2018-08-16] MEDS ORDERED: CALCIUM GLUCONATE 10% - 1,000 MG/10 ML VIAL IVPB ONE (08:47)
[2018-08-16] MEDS ORDERED: INSULIN REGULAR HUMAN 100 UNITS/ML *VIAL IVPUSH ONE (08:49)
[2018-08-16] MEDS ORDERED: CALCIUM GLUCONATE 10% - 1,000 MG/10 ML VIAL ONE (09:03)
[2018-08-16] MEDS ORDERED: PT OWN MED DRAWER 7, Y5N ONE ×3 (09:05→18:47)
--- NOTE | 2018-08-16 09:17 | PN ---
Progress Note (short form) - Note Progress Note: Chief Complaint: resp failure, hypotension History of Present Illness: opens eyes to voice, not answering questions. appears comfortable Current Medications Albuterol Sulfate (Ventolin 0.083% Nebulizer Soln -) 1 amp NEB Q6H PRN PRN Reason: SHORT OF BREATH/WHEEZING Last Admin: 08/12/18 01:24 Dose: 1 amp Albuterol/Ipratropium (Duoneb -) 1 amp NEB RQID [facility] Last Admin: 08/15/18 20:40 Dose: 1 amp Budesonide/Formoterol Fumarate (Symbicort 160/4.5mcg -) 2 puff IH BID [facility] Last Admin: 08/15/18 22:02 Dose: Not Given Nafcillin Sodium 2 gm/ (Dextrose) 100 mls @ 100 mls/hr IVPB Q4H-IV [facility]; Protocol Last Admin: 08/16/18 06:29 Dose: 100 mls/hr Sodium Chloride (Normal Saline -) 1,000 mls @ 50 mls/hr IV ASDIR [facility] Insulin Aspart (Novolog Vial Sliding Scale -) 1 vial SQ ACHS [facility]; Protocol Last Admin: 08/16/18 06:43 Dose: Not Given Methylprednisolone Sodium Succinate (Solu-Medrol -) 30 mg IVPUSH DAILY [facility] Metoprolol Tartrate (Lopressor Injection -) 5 mg IVPUSH Q6H [facility] Last Admin: 08/16/18 06:30 Dose: 5 mg Metoprolol Tartrate (Lopressor Injection -) 5 mg IVPUSH Q4H PRN PRN Reason: TACHYCARDIA Ondansetron HCl (Zofran Injection) 4 mg IVPUSH Q6H PRN PRN Reason: NAUSEA AND/OR VOMITING Pantoprazole Sodium (Protonix -) 20 mg PO DAILY [facility] Last Admin: 08/15/18 10:31 Dose: Not Given Polyethylene Glycol (Miralax (For Daily Use) -) 17 gm PO BID [facility] Last Admin: 08/15/18 22:01 Dose: Not Given Senna (Senna -) 2 tab PO HS [facility] Last Admin: 08/15/18 22:02 Dose: Not Given Sodium Chloride ([place] Nasal [place] -) 2 spray NS BID PRN PRN Reason: NASAL CONGESTION Last Admin: 08/12/18 15:14 Dose: 2 spray - Objective Vital Signs: Vital Signs Period Temp Pulse Resp BP Sys/Garza Pulse Ox Last 24 Hr 97.2 F-98.2 F 66-104 18-26 91-129/43-76 95-100 Constitutional: Yes: Well Nourished, No Distress, Calm Cardiovascular: Yes: Pulse Irregular, +JVD, S1, S2. No: Gallop, Murmur Respiratory: Yes: Regular, + rales (anteriorly). No: Accessory Muscle Use Extremities: No: Cold Edema: No Neurological: Yes: Lethargy. No: Seizure Psychiatric: No: Agitated Assessment/Plan CXR: no acute process Echo 05/03: nl LVEF. mild RVE, mild-mod RV hypo. L/NEENA. mod MR/TR. RVSP at least 88 mmHg Echo 03/2017: Mild conc lvh. nl lv/rv size/fn, mod ronnie, mod mr, mod tr, rvsp 40- 50 EKG: afib with PVCs tele: afib rate 100s, PVCs, sinus tachy hypotension, NSTEMI, staph bacteremia: -periop hypotension 08/11 during cysto, briefly on pressors. 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 ECG 08/[address]ressions inferior leads, improved on 08/12 tracing--cannot exclude Type I MS at time of events. -AC initially held for gross hematuria with large clots/hydronephrosis, was back on eliquis and now stopped again due to hematuria. defer aspirin -BB and afib HR control as doing, hemodynamically stable - IV metoprolol as not taking PO consistently -consider risk stratification MPI once clinically stable (if will change med mgmt approach) -defer invasive CAD mgmt approach given Type II MS > Type I here, plus pt's poor functional status with competing mortality limitations from severe lung dz , low likelihood to improve prognosis, and risks > benefits (including bleeding , AIN) SANAM: -likely ATN, renal function continues to worsen with K 6.3 this AM, no urine output, managing per ICU team and receiving calcium gluconate - plan for perc nephrostomy with IR - renal ultrasound shows raad hydronephrosis, urology following -holding lasix, has been receiving IVF with signs of volume overload, worsening congestion noted on CXR and pt is not making urine, rales on exam - would dc IV fluids -renal following, Dr. 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 initially 158 here. -cont lasix iv 80 bid -07/29: Creat 0.6 and weight down to 162, continue current lasix regimen -07/30: Creat 0.8, K 3.4, Wt 161. Continue current lasix regimen, replete K -07/31: 161 lbs. -08/01: wt 160 lbs, cont same -08/02-: appears euvolemic. was on lasix 40 qd at home. transitioned 80 iv bid to 80 qd -08/06: iv steroids continue and now dose increased. wt up a bit as well, restarted lasix 80 mg IV BID - 08/07-: weight continues to decrease, sob improving, Cr stable, still on IV steroids. Continue lasix 80 mg IV BID while on IV steroids. plan change to po lasix 80 daily when on po steroids. - 08/12: hypotensive during cystoscopy, looks dry clinically. SANAM this am. lasix on hold, gentle IVF--observe chf status closely - 08/13: lactic acidosis, + staph in BCx's the past 2 days, organism awaiting ID. renal fxn worsening significantly--incr IVF rate (125 cc/hr) - 08/14: remains non-edematous. CXR improved. renal fxn worsening rapidly. cont IVF - 08/15: Cr continues to rise, appears euvolemic. cont IVF, poor PO intake - 08/16:renal function continues to decline, appears overloaded. IVF rate cut back, dc IV fluids for now HTN: -bp controlled -cont current meds hematuria, obstruction with hydro: - cysto showed hemorrhagic cystitis with large amount of clot which was evacuated - CBI dc'ed per urology, reportedly hematuria again. stopped eliquis est time spent in pt exam, data review, and formulating plan of potentially life threatening medical problems = 35 min
[2018-08-16] MEDS ORDERED: SODIUM POLYSTYRENE SULFONATE 15 GM/60 ML BOTTLE PO ONE ×2 (09:30→16:51)
--- NOTE | 2018-08-16 09:32 | PN ---
Physical Exam: SUBJECTIVE: Patient seen and examined at bedside. Per nurse, pt refusing to eat. Minimal urine out put overnight. Spoke with IR this morning, pending possible percutaneous nephrostomy tube placement. OBJECTIVE: Vital Signs Period Temp Pulse Resp BP Sys/Garza Pulse Ox Last 24 Hr 97.2 F-98.2 F 66-104 18-26 91-129/43-76 95-100 GENERAL: Lethargic, responds to verbal stimuli. HEAD: NC/AT LUNGS: CTA B/L Anteriorly HEART: Irregular ABDOMEN: Soft, ND. EXTREMITIES: 2+ pulses, warm, well-perfused, no edema. SKIN: Warm, dry, normal turgor, no rashes or lesions noted Laboratory Results - last 24 hr 08/15/18 08/15/18 08/15/18 05:30 05:30 11:02 WBC RBC Hgb Hct MCV MCH MCHC RDW Plt Count MPV Anticoagulation Therapy Puncture Site ABG pH ABG pCO2 at Pt Temp ABG pO2 at Pt Temp ABG HCO3 ABG O2 Sat (Measured) ABG O2 Content ABG Base Excess Junior Test O2 Delivery Device Oxygen Flow Rate Vent Mode Vent Rate Mechanical Rate Pressure Support Vent Sodium 133 L Potassium 5.2 H Chloride 93 L Carbon Dioxide 27 Anion Gap 12 BUN 93 H Creatinine 4.6 H Creat Clearance w eGFR 8.99 POC Glucometer 171.95217 Random Glucose 196 H Calcium 7.7 L Phosphorus 7.8 H Magnesium 2.5 H Crossmatch See Detail 08/15/18 08/15/18 08/15/18 12:50 16:22 19:00 WBC 34.5 H* 32.3 H* RBC 3.62 3.67 Hgb 7.4 L 7.6 L Hct 24.1 L 24.7 L MCV 66.6 L 67.2 L MCH 20.4 L 20.6 L MCHC 30.7 L 30.6 L RDW 17.7 H 17.8 H Plt Count 174 204 MPV 9.5 9.5 Anticoagulation Therapy Puncture Site ABG pH ABG pCO2 at Pt Temp ABG pO2 at Pt Temp ABG HCO3 ABG O2 Sat (Measured) ABG O2 Content ABG Base Excess Junior Test O2 Delivery Device Oxygen Flow Rate Vent Mode Vent Rate Mechanical Rate Pressure Support Vent Sodium Potassium Chloride Carbon Dioxide Anion Gap BUN Creatinine Creat Clearance w eGFR POC Glucometer 125.02769 Random Glucose Calcium Phosphorus Magnesium Crossmatch 08/15/18 08/16/18 08/16/18 22:05 05:30 06:00 WBC 27.3 H RBC 3.53 L Hgb 7.2 L Hct 23.7 L MCV 67.3 L MCH 20.5 L MCHC 30.4 L RDW 18.0 H Plt Count 168 MPV 9.3 Anticoagulation Therapy Puncture Site ABG pH ABG pCO2 at Pt Temp ABG pO2 at Pt Temp ABG HCO3 ABG O2 Sat (Measured) ABG O2 Content ABG Base Excess Junior Test O2 Delivery Device Oxygen Flow Rate Vent Mode Vent Rate Mechanical Rate Pressure Support Vent Sodium 132 L Potassium 6.3 H* Chloride 92 L Carbon Dioxide 27 Anion Gap 12 BUN 103 H Creatinine 5.3 H Creat Clearance w eGFR 7.64 POC Glucometer 118.66586 Random Glucose 97 Calcium 7.2 L Phosphorus > 9.0 H* Magnesium 2.5 H Crossmatch 08/16/18 08/16/18 08/16/18 06:30 06:34 07:27 WBC RBC Hgb Hct MCV MCH MCHC RDW Plt Count MPV Anticoagulation Therapy No Result Required. Puncture Site Right radial ABG pH 7.43 ABG pCO2 at Pt Temp 40.2 ABG pO2 at Pt Temp 71.4 ABG HCO3 26.1 H ABG O2 Sat (Measured) 93.1 ABG O2 Content 7.0 L* ABG Base Excess 2.2 H Junior Test Positive O2 Delivery Device N/c Oxygen Flow Rate 2 Vent Mode No Result Required. Vent Rate No Result Required. Mechanical Rate No Result Required. Pressure Support Vent No Result Required. Sodium Potassium Chloride Carbon Dioxide Anion Gap BUN Creatinine Creat Clearance w eGFR POC Glucometer 58.85123 59.44429 Random Glucose Calcium Phosphorus Magnesium Crossmatch 08/16/18 08:01 WBC RBC Hgb Hct MCV MCH MCHC RDW Plt Count MPV Anticoagulation Therapy Puncture Site ABG pH ABG pCO2 at Pt Temp ABG pO2 at Pt Temp ABG HCO3 ABG O2 Sat (Measured) ABG O2 Content ABG Base Excess Junior Test O2 Delivery Device Oxygen Flow Rate Vent Mode Vent Rate Mechanical Rate Pressure Support Vent Sodium Potassium Chloride Carbon Dioxide Anion Gap BUN Creatinine Creat Clearance w eGFR POC Glucometer 195.99457 Random Glucose Calcium Phosphorus Magnesium Crossmatch Active Medications Generic Name Dose Route Start Last Admin Trade Name Freq PRN Reason Stop Dose Admin Albuterol Sulfate 1 amp 08/11/18 19:31 08/12/18 01:24 Ventolin 0.083% Nebulizer Soln - NEB 1 amp Q6H PRN Administration SHORT OF BREATH/WHEEZING Albuterol/Ipratropium 1 amp 08/11/18 20:00 08/15/18 20:40 Duoneb - NEB 1 amp RQID [facility] Administration Budesonide/Formoterol Fumarate 2 puff 08/11/18 22:00 08/15/18 22:02 Symbicort 160/4.5mcg - IH Not Given BID [facility] Nafcillin Sodium 2 gm/ 100 mls @ 100 mls/hr 08/14/18 10:45 08/16/18 06:29 Dextrose IVPB 100 mls/hr Q4H-IV [facility] Administration Protocol Sodium Chloride 1,000 mls @ 50 mls/hr 08/16/18 08:25 Normal Saline - IV ASDIR [facility] Insulin Aspart 1 vial 08/11/18 22:00 08/16/18 06:43 Novolog Vial Sliding Scale - SQ Not Given ACHS [facility] Protocol Methylprednisolone Sodium Succinate 30 mg 08/15/18 12:45 Solu-Medrol - IVPUSH DAILY [facility] Metoprolol Tartrate 5 mg 08/14/18 12:17 08/16/18 06:30 Lopressor Injection - IVPUSH 5 mg Q6H [facility] Administration Metoprolol Tartrate 5 mg 08/14/18 14:47 Lopressor Injection - IVPUSH Q4H PRN TACHYCARDIA Ondansetron HCl 4 mg 08/11/18 16:43 Zofran Injection IVPUSH Q6H PRN NAUSEA AND/OR VOMITING Pantoprazole Sodium 20 mg 08/12/18 10:00 08/15/18 10:31 Protonix - PO Not Given DAILY [facility] Polyethylene Glycol 17 gm 08/11/18 22:00 08/15/18 22:01 Miralax (For Daily Use) - PO Not Given BID [facility] Senna 2 tab 08/11/18 22:00 08/15/18 22:02 Senna - PO Not Given HS [facility] Sodium Chloride 2 spray 08/12/18 13:26 08/12/18 15:14 [place] Nasal [place] - NS 2 spray BID PRN Administration NASAL CONGESTION Sodium Polystyrene Sulfonate 30 gm 08/16/18 09:30 Kayexalate - PO 08/16/18 09:31 ONCE ONE ASSESSMENT/PLAN: 87 yo female with PMH of a-fib (rate controlled, on eliquis), CHF, COPD (on 2L home o2), HTN, pulmonary HTN, presented to the ED with complaint of SOB with a cough productive of clear sputum for 2 days and admitted for the treatment of CHF exacerbation #Acute hypercapnic hypoxic respiratory distress: resolving, patient had a likely exacerbation 2/2 CHF and COPD Medrol IVPUSH 20 QD per ICU Team -Ashok scheduled QID; albuterol PRN -Continue pulmicort inhaler -on 2L nasal cannula -continue daily weights -BiPap PRN #Hematuria: continuing to occur, likely 2/2 trauma vs acute bladder/kidney pathology -H&H 7.4/21.1 today 08/15/18 - CBI Discontinued per Urology. Eliquis resumed. -Bladder/kidney US ordered--> 08/08/18: [place]. Partially distended urinary bladder that is at least partially filled with debris. Cannot rule out blood clots. Cannot adequately evaluate its posterior wall. Bilateral ureteral jets were not visualized. Further evaluation of the urinary bladder is needed. -KUB no signs of obstructing stones. Urology on board. -08/11/19 S/p Cystourethroscopy, evacuation of clots, fulguration of bleeders placement 3 way 30 ml 24 fr rodriguez with continuos bladder irrigation. -Renal Sonogram 08/15/18: IMPRESSION: Mild to moderate right renal hydronephrosis and dilatation of the proximal right ureter at appears to have slightly worsened since see prior exam. Partially exophytic left renal lower pole cyst measuring 2.7 cm and mild left renal hydronephrosis. - 08/16/18. Contacted I.R. Percutaneous Nephrostomy tube insertion due to persistent unrelenting R hydronephrosis. Dr Watkins on board. S/P B/L percutaneous nephrostomy tube placement. - PT/INR pending #SANAM, Hyperkalemia -Renal Dr Del Angel on board - Potassium 5.8 yesterday. S/P Insulin 10 U + 1 Amp D50, Sodium Bicarb, Ca Gluconate 1 gm, 3 runs of Albuterol. 5.2 today 08/15/18 - Monitor urine output/Creatinine 08/16/18--> Potassium 6.3 this am, Ca Gluconate ordered per ICU Team. Creatinine 5.3 this am. # WBC >40K -Nafcillin 2 gm Q4H -Blood Cultures---MS Staph Aureus -Urine Cultures---MS Staph Aureus #Atrial fibrillation: stable -Eliquis Resumed per Urology. CBI D/C'ed -Lopresor IVPUSH -Echo--> EF 60-65%, moderately to severe LA Dilation. -LE Dopplers negative for any DVT May need CEDRIC if persistently bacteremic Dr Hackett on board. Fluids D/C'ed due to fluid overload. #Sarcoidosis: chronic -Already on steroids for above problems, continue steroids. #HLD: stable -Continue Lipitor FEN: NS Monitor electrolytes NPO PPX: DVT - Eliquis 5 mg po daily - Currently on Hold GI - Protonix 20mg qDaily Dispo: ICU Visit type - Emergency Visit Emergency Visit: Yes ED Registration Date: 07/25/18 Care time: The patient presented to the Emergency Department on the above date and was hospitalized for further evaluation of their emergent condition. - New Patient This patient is new to me today: No - Critical Care Critical Care patient: Yes Total Critical Care Time (in minutes): 35 Critical Care Statement: The care of this patient involved high complexity decision making to prevent further life threatening deterioration of the patient 's condition and/or to evaluate & treat vital organ system(s) failure or risk of failure. - Discharge Referral Referred to [facility] Med P.C.: No
[2018-08-16 09:51] LABS: INR 1.74 (0.83-1.09); PROTHROMBIN TIME (PATIENT) 20.6 SEC (9.7-13.0)
[2018-08-16] MEDS: POLYETHYLENE GLYCOL 3350 119 GM BTL PO SCH ×2 (10:02→22:23)
--- NOTE | 2018-08-16 10:55 | PN ---
Progress Note, Physician History of Present Illness: Awake, confused Supine in bed No acute distress Afebrile No urine output US bilateral HN WBC slightly improved 27K Repeat BC (08/15) no growth - Current Medication List Current Medications: Active Medications Albuterol Sulfate (Ventolin 0.083% Nebulizer Soln -) 1 amp NEB Q6H PRN PRN Reason: SHORT OF BREATH/WHEEZING Last Admin: 08/12/18 01:24 Dose: 1 amp Albuterol/Ipratropium (Duoneb -) 1 amp NEB RQID [facility] Last Admin: 08/15/18 20:40 Dose: 1 amp Budesonide/Formoterol Fumarate (Symbicort 160/4.5mcg -) 2 puff IH BID [facility] Last Admin: 08/15/18 22:02 Dose: Not Given Nafcillin Sodium 2 gm/ (Dextrose) 100 mls @ 100 mls/hr IVPB Q4H-IV [facility]; Protocol Last Admin: 08/16/18 10:03 Dose: 100 mls/hr Insulin Aspart (Novolog Vial Sliding Scale -) 1 vial SQ ACHS [facility]; Protocol Last Admin: 08/16/18 06:43 Dose: Not Given Methylprednisolone Sodium Succinate (Solu-Medrol -) 30 mg IVPUSH DAILY [facility] Metoprolol Tartrate (Lopressor Injection -) 5 mg IVPUSH Q6H [facility] Last Admin: 08/16/18 06:30 Dose: 5 mg Metoprolol Tartrate (Lopressor Injection -) 5 mg IVPUSH Q4H PRN PRN Reason: TACHYCARDIA Ondansetron HCl (Zofran Injection) 4 mg IVPUSH Q6H PRN PRN Reason: NAUSEA AND/OR VOMITING Pantoprazole Sodium (Protonix -) 20 mg PO DAILY [facility] Last Admin: 08/15/18 10:31 Dose: Not Given Polyethylene Glycol (Miralax (For Daily Use) -) 17 gm PO BID [facility] Last Admin: 08/16/18 10:02 Dose: Not Given Senna (Senna -) 2 tab PO HS [facility] Last Admin: 08/15/18 22:02 Dose: Not Given Sodium Chloride ([place] Nasal [place] -) 2 spray NS BID PRN PRN Reason: NASAL CONGESTION Last Admin: 08/12/18 15:14 Dose: 2 spray - Objective Vital Signs: Vital Signs Temperature 97.9 F 08/16/18 10:00 Pulse Rate 105 H 08/16/18 10:00 Respiratory Rate 21 H 08/16/18 10:00 Blood Pressure 109/57 L 08/16/18 10:00 O2 Sat by Pulse Oximetry (%) 98 08/16/18 00:05 Constitutional: Yes: No Distress Eyes: Yes: Conjunctiva Clear Cardiovascular: Yes: Regular Rate and Rhythm, Tachycardia, S1, S2 Respiratory: Yes: CTA Bilaterally Gastrointestinal: Yes: Normal Bowel Sounds, Soft. No: Tenderness Labs: CBC, BMP 08/16/18 06:00 08/16/18 05:30 INR, PTT INR 1.74 (0.83-1.09) H 08/16/18 09:25 Assessment/Plan Staph bacteremia/ sepsis MSSA Sepsis Acute renal failure Leukocytosis Lactic acidosis Hemorrhagic cystitis COPD CHF Continue nafcillin Repeat BC no growth Echocardiogram no vegetations
[2018-08-16] MEDS: PANTOPRAZOLE 20 MG TABLET (FP) PO SCH (11:07)
[2018-08-16] MEDS: BUDESONIDE/FORMETEROL FUMARATE 160/4.5 mcg INHALER IH SCH ×2 (11:09→22:35)
--- NOTE | 2018-08-16 11:16 | EKG ---
Test Reason : Blood Pressure : / mmHG Vent. Rate : 099 BPM Atrial Rate : 198 BPM P-R Int : 000 ms QRS Dur : 080 ms QT Int : 358 ms P-R-T Axes : 000 -15 -41 degrees QTc Int : 459 ms [facility]IAL [facility]UTTER WITH 2:1 A-V CONDUCTION NONSPECIFIC ST ABNORMALITY ABNORMAL ECG WHEN COMPARED WITH ECG OF 15-AUG-2018 04:13, ATRIAL FLUTTER HAS REPLACED JUNCTIONAL RHYTHM Confirmed by JARON ROY, CLAIRE ([id number]) on 08/16/2018 11:16:15 AM Referred By: Confirmed By:CLAIRE SALMERON MD
--- NOTE | 2018-08-16 12:37 | PN ---
Teaching Attending Note Name of Resident: Jacqueline Bains ATTENDING PHYSICIAN STATEMENT I saw and evaluated the patient. I reviewed the resident's note and discussed the case with the resident. I agree with the resident's findings and plan as documented. SUBJECTIVE: Pt seen and examined in the ICU. Lethargic, more tachypneic today. Oliguric. For right nephrostomy tube placement for hydronephrosis. OBJECTIVE: Vital Signs Period Temp Pulse Resp BP Sys/Garza Pulse Ox Last 24 Hr 97.2 F-98.2 F 92-105 - 91-118/43-71 95-98 Intake & Output 08/13/18 08/14/18 08/15/18 08/16/18 23:59 23:59 23:59 23:59 Intake Total 25102 20947 2460 900 Output Total 93905 25626 0 0 Balance 1200 2385 2460 900 Weight 69.8 kg 69.8 kg Gen: lethargic, tachypneic Heart: tachycardic, regular Lung: scattered rhonchi Abd: soft, nontender Ext: no edema CBC, BMP 08/16/18 06:00 08/16/18 05:30 Active Medications Albuterol Sulfate (Ventolin 0.083% Nebulizer Soln -) 1 amp NEB Q6H PRN PRN Reason: SHORT OF BREATH/WHEEZING Last Admin: 08/12/18 01:24 Dose: 1 amp Albuterol/Ipratropium (Duoneb -) 1 amp NEB RQID [facility] Last Admin: 08/16/18 11:45 Dose: 1 amp Budesonide/Formoterol Fumarate (Symbicort 160/4.5mcg -) 2 puff IH BID [facility] Last Admin: 08/16/18 11:09 Dose: Not Given Nafcillin Sodium 2 gm/ (Dextrose) 100 mls @ 100 mls/hr IVPB Q4H-IV [facility]; Protocol Last Admin: 08/16/18 10:03 Dose: 100 mls/hr Insulin Aspart (Novolog Vial Sliding Scale -) 1 vial SQ ACHS [facility]; Protocol Last Admin: 08/16/18 11:24 Dose: 2 units Methylprednisolone Sodium Succinate (Solu-Medrol -) 20 mg IVPUSH DAILY [facility] Metoprolol Tartrate (Lopressor Injection -) 5 mg IVPUSH Q6H [facility] Last Admin: 08/16/18 06:30 Dose: 5 mg Metoprolol Tartrate (Lopressor Injection -) 5 mg IVPUSH Q4H PRN PRN Reason: TACHYCARDIA Ondansetron HCl (Zofran Injection) 4 mg IVPUSH Q6H PRN PRN Reason: NAUSEA AND/OR VOMITING Pantoprazole Sodium (Protonix -) 20 mg PO DAILY [facility] Last Admin: 08/16/18 11:07 Dose: Not Given Polyethylene Glycol (Miralax (For Daily Use) -) 17 gm PO BID [facility] Last Admin: 08/16/18 10:02 Dose: Not Given Senna (Senna -) 2 tab PO HS [facility] Last Admin: 08/15/18 22:02 Dose: Not Given Sodium Chloride ([place] Nasal [place] -) 2 spray NS BID PRN PRN Reason: NASAL CONGESTION Last Admin: 08/12/18 15:14 Dose: 2 spray ASSESSMENT AND PLAN: Acute on Chronic Hypoxic and Hypercapneic Respiratory Failure Acute on Chronic Diastolic Heart Failure Acute COPD Exacerbation Sarcoidosis Severe Pulmonary HTN Atrial Fibrillation HTN Hyperlipidemia Hematuria s/p Cystoscopy MSSA Bacteremia Sepsis Acute Kidney Injury Right Hydronephrosis - antibiotics per ID - f/u repeat cultures - may need CEDRIC if persistently bacteremic - taper medrol - inhaled bronchodilators - O2 to keep SpO2>90% - for nephrostomy placement - monitor urine output, creatinine - rate control - holding anticoagulation - continue ICU monitoring - prognosis guarded, will consult palliative care critical care time spent in reviewing chart, evaluating patient and formulating plan 35 min
--- NOTE | 2018-08-16 13:17 | PN ---
Teaching Attending Note Name of Resident: Marco A Colon ATTENDING PHYSICIAN STATEMENT I saw and evaluated the patient. I reviewed the resident's note and discussed the case with the resident. I agree with the resident's findings and plan as documented. SUBJECTIVE:lethargic. just returned from B/L nephrostomy tube placement OBJECTIVE: Last Vital Signs Temp Pulse Resp BP Pulse Ox 97.9 F 97 H 24 H 100/46 L 95 08/16/18 10:00 08/16/18 13:15 08/16/18 13:15 08/16/18 13:15 08/16/18 10:00 Intake & Output 08/13/18 08/14/18 08/15/18 08/16/18 23:59 23:59 23:59 23:59 Intake Total 35540 58380 2460 900 Output Total 60469 29562 0 0 Balance 1200 2385 2460 900 Weight 153 lb 14.122 oz 153 lb 14.122 oz General lethargic, CV S1 S2 tachy irregular Lungs decreased breth sounds anteriorly. no wheezing, poor inspiratory effort Abdomen soft +suprapubic tenderness no distention. BS + Extremities 1+ pedal edema ASSESSMENT AND PLAN: 81 yo F with PMhx of sarcoidosis diagnosed in 1985, Chronic diastolic HF, severe pulmonary HTN, COPD on 2L home oxygen, AFib on eliquis, HTN, HLD, frequent admissions with CHF/respiratory distress admitted with acute hypercapneic/hypoxic respiratory failure, CHF exaerbation. Course complicated by development of hematuria. Cystoscopy was done where pt developed hypotension requiring pressors and was placed iN ICU. 1. Acute hypercapneic/hypoxic respiratory failure-due to CHF and COPD exacerbation. on bipap overnight. medrol reduced to 20mg daily. chest pt, Nebs and inhalers. pulmonary and cardio on board 2. Acute diastolic heart failure exacerbation-starting to develop signs of volume overload. IVF reduced yesterday. will stop IVF now nad monitor. hold lasix. Monitor electrolytes, daily weights, cardio on board 3. Hemorrhagic cystitis-Renal u/s showing worsening R hydronephrosis with worsening renal function. low UOP. went for emergent B/L nephrostomy tube placement with sangenous output. will check CBC to ensure Hgb is stable. monitor output 4. Acute Blood loss anemia- due to hemorrhagic cystitis. will transfuse 1 unit PRBC. repeat CBC. cont to have hematuria in grady rodriguez 5. Hypotension- possible due to sedation during the procedure vs development of sepsis. Received dose of Vaso and epi post-operatively. has not require ggt. Vitals have been stable. will cont to monitor 6. abdominal pain- points to suprapubic region. persists however overall improved. bowel regimen. 7. SANAM- due to hypoperfusion. now with worsening hydro. underwent nephrostomy tube placement. will repeat renal function. renal functioning continue to worsening. may need HD if uremia continues to worsen. renal on board. avoid nephrotoxic agents. no eosinophilia 8. Tropinemia- TNI peaked at 2. likely due to hypoperfusion from procedure. no indication for workup at this time. medical management 9. afib- improved. cont to titrate metoprolol IV as tolerated. refusing oral meds. on eliquis. cardio on board. 10. MSSA Bacteremia-with urine also showing MSSA. echo negative for endocarditis. on nafcillin day 3. repeat Cx NGTD. ID on board 11. 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 Sarcoidosis 14. COPD on 2L home oxygen 15. HTN 16. dyslipidemia 17. DVT ppx- eliquis 18. MICU monitoring The care of this patient involved high complexity decision making to prevent further life threatening deterioration of the patient's condition and/or to evaluate & treat vital organ system(s) failure or risk of failure. 40 mins
--- NOTE | 2018-08-16 13:35 | PN ---
Physical Exam: SUBJECTIVE: Patient seen and examined at bedside this morning. She was on bipap overnight. This morning saturating >92% at 3L NC. Patient is lethargic, and still has no urine output. For IR-guided nephrostomy tube placement today. OBJECTIVE: Vital Signs Period Temp Pulse Resp BP Sys/Garza Pulse Ox Last 24 Hr 97.2 F-98.2 F 92-114 18-28 90-118/36-71 95-98 GENERAL: The patient is lethargic, on 3L NC. NECK: Trachea midline, full range of motion, supple. LUNGS: +scattered rhonchi bilaterally HEART: Regular rate and rhythm, S1, S2 without murmur, rub or gallop. ABDOMEN: Soft, +mild tenderness, nondistended, normoactive bowel sounds. EXTREMITIES: 2+ pulses, warm, well-perfused, no edema. SKIN: Warm, dry, normal turgor. Laboratory Results - last 24 hr 08/15/18 08/15/18 08/15/18 05:30 16:22 19:00 WBC 32.3 H* RBC 3.67 Hgb 7.6 L Hct 24.7 L MCV 67.2 L MCH 20.6 L MCHC 30.6 L RDW 17.8 H Plt Count 204 MPV 9.5 PT with INR INR Anticoagulation Therapy Puncture Site ABG pH ABG pCO2 at Pt Temp ABG pO2 at Pt Temp ABG HCO3 ABG O2 Sat (Measured) ABG O2 Content ABG Base Excess Junior Test O2 Delivery Device Oxygen Flow Rate Vent Mode Vent Rate Mechanical Rate Pressure Support Vent Sodium Potassium Chloride Carbon Dioxide Anion Gap BUN Creatinine Creat Clearance w eGFR POC Glucometer 125.80474 Random Glucose Calcium Phosphorus Magnesium Blood Type B POSITIVE Antibody Screen Negative Crossmatch See Detail 08/15/18 08/16/18 08/16/18 22:05 05:30 06:00 WBC 27.3 H RBC 3.53 L Hgb 7.2 L Hct 23.7 L MCV 67.3 L MCH 20.5 L MCHC 30.4 L RDW 18.0 H Plt Count 168 MPV 9.3 PT with INR INR Anticoagulation Therapy Puncture Site ABG pH ABG pCO2 at Pt Temp ABG pO2 at Pt Temp ABG HCO3 ABG O2 Sat (Measured) ABG O2 Content ABG Base Excess Junior Test O2 Delivery Device Oxygen Flow Rate Vent Mode Vent Rate Mechanical Rate Pressure Support Vent Sodium 132 L Potassium 6.3 H* Chloride 92 L Carbon Dioxide 27 Anion Gap 12 BUN 103 H Creatinine 5.3 H Creat Clearance w eGFR 7.64 POC Glucometer 118.93951 Random Glucose 97 Calcium 7.2 L Phosphorus > 9.0 H* Magnesium 2.5 H Blood Type Antibody Screen Crossmatch 08/16/18 08/16/18 08/16/18 06:30 06:34 07:27 WBC RBC Hgb Hct MCV MCH MCHC RDW Plt Count MPV PT with INR INR Anticoagulation Therapy No Result Required. Puncture Site Right radial ABG pH 7.43 ABG pCO2 at Pt Temp 40.2 ABG pO2 at Pt Temp 71.4 ABG HCO3 26.1 H ABG O2 Sat (Measured) 93.1 ABG O2 Content 7.0 L* ABG Base Excess 2.2 H Junior Test Positive O2 Delivery Device N/c Oxygen Flow Rate 2 Vent Mode No Result Required. Vent Rate No Result Required. Mechanical Rate No Result Required. Pressure Support Vent No Result Required. Sodium Potassium Chloride Carbon Dioxide Anion Gap BUN Creatinine Creat Clearance w eGFR POC Glucometer 58.76670 59.63722 Random Glucose Calcium Phosphorus Magnesium Blood Type Antibody Screen Crossmatch 08/16/18 08/16/18 08/16/18 08:01 09:25 11:16 WBC RBC Hgb Hct MCV MCH MCHC RDW Plt Count MPV PT with INR 20.60 H INR 1.74 H Anticoagulation Therapy Puncture Site ABG pH ABG pCO2 at Pt Temp ABG pO2 at Pt Temp ABG HCO3 ABG O2 Sat (Measured) ABG O2 Content ABG Base Excess Junior Test O2 Delivery Device Oxygen Flow Rate Vent Mode Vent Rate Mechanical Rate Pressure Support Vent Sodium Potassium Chloride Carbon Dioxide Anion Gap BUN Creatinine Creat Clearance w eGFR POC Glucometer 195.73976 167.36394 Random Glucose Calcium Phosphorus Magnesium Blood Type Antibody Screen Crossmatch Active Medications Generic Name Dose Route Start Last Admin Trade Name Freq PRN Reason Stop Dose Admin Albuterol Sulfate 1 amp 08/11/18 19:31 08/12/18 01:24 Ventolin 0.083% Nebulizer Soln - NEB 1 amp Q6H PRN Administration SHORT OF BREATH/WHEEZING Albuterol/Ipratropium 1 amp 08/11/18 20:00 08/16/18 11:45 Duoneb - NEB 1 amp RQID LISA Administration Budesonide/Formoterol Fumarate 2 puff 08/11/18 22:00 08/16/18 11:09 Symbicort 160/4.5mcg - IH Not Given BID LISA Nafcillin Sodium 2 gm/ 100 mls @ 100 mls/hr 08/14/18 10:45 08/16/18 10:03 Dextrose IVPB 100 mls/hr Q4H-IV LISA Administration Protocol Insulin Aspart 1 vial 08/11/18 22:00 08/16/18 11:24 Novolog Vial Sliding Scale - SQ 2 units ACHS LISA Administration Protocol Methylprednisolone Sodium Succinate 20 mg 08/16/18 12:03 Solu-Medrol - IVPUSH DAILY LISA Metoprolol Tartrate 5 mg 08/14/18 12:17 08/16/18 06:30 Lopressor Injection - IVPUSH 5 mg Q6H LISA Administration Metoprolol Tartrate 5 mg 08/14/18 14:47 Lopressor Injection - IVPUSH Q4H PRN TACHYCARDIA Ondansetron HCl 4 mg 08/11/18 16:43 Zofran Injection IVPUSH Q6H PRN NAUSEA AND/OR VOMITING Pantoprazole Sodium 20 mg 08/12/18 10:00 08/16/18 11:07 Protonix - PO Not Given DAILY LISA Polyethylene Glycol 17 gm 08/11/18 22:00 08/16/18 10:02 Miralax (For Daily Use) - PO Not Given BID LISA Senna 2 tab 08/11/18 22:00 08/15/18 22:02 Senna - PO Not Given HS LISA Sodium Chloride 2 spray 08/12/18 13:26 08/12/18 15:14 [place] Nasal [place] - NS 2 spray BID PRN Administration NASAL CONGESTION ASSESSMENT/PLAN: Patient is an 87 yo female with PMH of a-fib (rate controlled, on eliquis), COPD (on 2L home o2), HTN, pulmonary HTN, presented with gross hematuria. Renal and bladder US revealed right hydronephrosis and multiple filling defects in the bladder. Patient is s/p cystoscopy, clot evacuation, bladder biopsy and bladder fulgeration. #Pulmonary 1)Acute hypoxic/hypercapneic respiratory failure likely secondary to CHF/COPD exacerbation -Was on Bipap overnight, this morning tolerated Nasal can[place]. -Duoneb QID -Albuterol PRN -Decreased IV solu-medrol to 20mg daily -CXR and ABG in AM #Cardiovascular 1)Hypotension -gen-operative hypotension, likely 2/2 sepsis -Cardiology (Dr. Mendez) consulted. Recommendations appreciated. -trop 2.0 the following day, trending down--suspect Type II [place] sec to hypoperfusion/sepsis (+/- underlying stable CAD), given associated finding of bacteremia. ECG 08/[address] depressions inferior leads, improved on 08/12 tracing--cannot exclude Type I [place] at time of events. -AC initially held for gross hematuria with large clots/hydronephrosis -BB and afib HR control as doing -hemodynamically stable, observe BPs as titrate AF meds 2)Atrial Fibrillation -HR still tachycardic, but more controlled with increased dose of Lopressor -Continue Lopressor to 5mg IV q6h with Lopressor 5mg q4h PRN doses -if HRs rise will add digoxin -eliquis put on hold, for right nephrostomy tube placement today. -will resume eliquis 3)Acute on chronic diastolic CHF -IVF discontinued. -CXR daily. 4)Troponinemia -trop peaked at 2.0, trended down -likely demand ischemia from hypoperfusion/sepsis -ECG 08/[address] depressions inferior leads, improved on tracing--cannot exclude Type I [place] at time of events. 5)Hypertension -BP controlled -cont current meds #Infectious disease 1)Bacteremia: likely 2/2 UTI -Blood cx: +Presumptive MSSA -Repeat blood cultures pending. -urine culture positive for Staph. Repeat urine cultures pending -Infectious Disease (Dr. Garcai) consulted. Recommendations appreciated. -IV Nafcillin 2gm q4h #Genitourinary 1)Hemorrahagic cystitis -Patient underwent cystoscopy 08/11/2018 for gross hematuria,clot retention, rt. hydronephrosis -draining light pink colored urine, H/H is stable. -CBI discontinued. -will resume eliquis -Renal US: Mild to moderate right renal hydronephrosis and dilatation of the proximal right ureter that appears to have slightly worsened since prior exam. Partially exophytic left renal lwoer pole cyst measuring 2.7cm and mild left renal hydronephrosis. -Urology (Dr. Colon) consulted. -Dr. Anderson consulted. -s/p IR-guided b/l nephrostomy tube placement #Nephrology 1)SANAM -likely from ATN and is likely multifactorial. Avoid hypotension -BUN/Cr: 103/5.3 -Nephrology (Dr. Del Angel) consulted. Recommendations appreciated. -monitor bp and pressors to map of 65 -pt now on nafcillin, was on zosyn and did get a dose of vanco -follow up repeat labs -flushed rodriguez -- minimal urine output -recall urology as pt has bilateral hydro -renal function is worsening -- likely ATN -will send more extensive renal workup -s/p b/l nephrostomy tube placement -repeat CBC and BMP in PM -if persistent hyperkalemia, may need emergent HD -family is made aware. -fluids discontinued. 2)Hyperkalemia: K 6.3 -Nephrology consulted. -insulin/D50, Calcium gluconate -repeat CBC and BMP at PM -Will continue to monitor 3)Hyperphosphatemia: 9 -s/p b/l nephrostomy tube placement -will repeat electrolytes at PM #Endocrine 1)Hypoglycemia: 59 -given D50 IV push #FEN -IVF discontinued. -routine bmp monitoring -sodium controlled diet. Patient not eating much, will start NGT feeding. #Prophylaxis 1)DVT - On Eliquis 5mg BID 2)GI - Protonix 20mg daily #Disposition -ICU for closer monitoring -palliative care consulted. Visit type - Emergency Visit Emergency Visit: Yes ED Registration Date: 07/25/18 Care time: The patient presented to the Emergency Department on the above date and was hospitalized for further evaluation of their emergent condition. - New Patient This patient is new to me today: Yes Date on this admission: 08/16/18 - Critical Care Critical Care patient: Yes Total Critical Care Time (in minutes): 40 Critical Care Statement: The care of this patient involved high complexity decision making to prevent further life threatening deterioration of the patient 's condition and/or to evaluate & treat vital organ system(s) failure or risk of failure.
--- NOTE | 2018-08-16 16:08 | PN ---
Progress Note (short form) - Note Progress Note: covering dr rivers problems 1. SANAM 2. hypotension 3. pulm HTN 4. CHF 5. hematuria 6. sarcoid 7. COPD 8. a-fib 9. hx of HTN 10. hyperlipidemia 11. hyperkalemia 12. mild hydro on ultrasound 13. s/p raad percutaneous nephrostomy good urine output via both tubes Current Medications Albuterol Sulfate (Ventolin 0.083% Nebulizer Soln -) 1 amp NEB Q6H PRN PRN Reason: SHORT OF BREATH/WHEEZING Last Admin: 08/12/18 01:24 Dose: 1 amp Albuterol/Ipratropium (Duoneb -) 1 amp NEB RQID LISA Last Admin: 08/16/18 11:45 Dose: 1 amp Budesonide/Formoterol Fumarate (Symbicort 160/4.5mcg -) 2 puff IH BID [facility] Last Admin: 08/16/18 11:09 Dose: Not Given Nafcillin Sodium 2 gm/ (Dextrose) 100 mls @ 100 mls/hr IVPB Q4H-IV LISA; Protocol Last Admin: 08/16/18 15:46 Dose: 100 mls/hr Insulin Aspart (Novolog Vial Sliding Scale -) 1 vial SQ ACHS LISA; Protocol Last Admin: 08/16/18 11:24 Dose: 2 units Methylprednisolone Sodium Succinate (Solu-Medrol -) 20 mg IVPUSH DAILY [facility] Metoprolol Tartrate (Lopressor Injection -) 5 mg IVPUSH Q6H [facility] Last Admin: 08/16/18 12:00 Dose: Not Given Metoprolol Tartrate (Lopressor Injection -) 5 mg IVPUSH Q4H PRN PRN Reason: TACHYCARDIA Ondansetron HCl (Zofran Injection) 4 mg IVPUSH Q6H PRN PRN Reason: NAUSEA AND/OR VOMITING Pantoprazole Sodium (Protonix -) 20 mg PO DAILY [facility] Last Admin: 08/16/18 11:07 Dose: Not Given Polyethylene Glycol (Miralax (For Daily Use) -) 17 gm PO BID [facility] Last Admin: 08/16/18 10:02 Dose: Not Given Senna (Senna -) 2 tab PO HS [facility] Last Admin: 08/15/18 22:02 Dose: Not Given Sodium Chloride ([place] Nasal [place] -) 2 spray NS BID PRN PRN Reason: NASAL CONGESTION Last Admin: 08/12/18 15:14 Dose: 2 spray Last Vital Signs Temp Pulse Resp BP Pulse Ox 98.1 F 109 H 19 99/59 L 95 08/16/18 14:00 08/16/18 14:00 08/16/18 14:00 08/16/18 14:00 08/16/18 10:00 unresponsive/sedated VS noted oral mucosa dry skin turgor poor Lungs clear to auscult Heart tachy Abd soft ext no edema 08/16/18 08/16/18 05:30 06:00 WBC 27.3 H Hgb 7.2 L Hct 23.7 L MCV 67.3 L Plt Count 168 Sodium 132 L Potassium 6.3 H* Chloride 92 L Carbon Dioxide 27 BUN 103 H Creatinine 5.3 H Calcium 7.2 L Phosphorus > 9.0 H* Magnesium 2.5 H IMP- labs noted repeat chems pending after nephrostomies hypotensive/tachycardic/ very likely volume depleted hypovolemia will probably get worse if she develops postobstructive diuresis Anemia- monitor h/h and consider transfusion Plan- insert ngt and introduce feeding early - cont fluids via ngt - may need HD if she does not improve -
[2018-08-16 16:19] LABS: HEMATOCRIT 27.5 % (32.4-45.2); HEMOGLOBIN 8.2 GM/dL (10.7-15.3); MCH 20.6 pg (25.7-33.7); MCHC 29.9 g/dl (32.0-36.0); MEAN PLT VOLUME 9.6 fl (7.5-11.1); PLATELET COUNT 178 K/MM3 (134-434); RBC 3.98 M/mm3 (3.60-5.2); RDW 18.3 % (11.6-15.6); WHITE BLOOD COUNT 18.8 K/mm3 (4.0-10.0)
[2018-08-16 16:45] LABS: ANION GAP 16 MMOL/L (8-16); BLOOD UREA NITROGEN 101 mg/dL (7-18); CALCIUM 7.5 mg/dL (8.5-10.1); CHLORIDE 94 mmol/L (98-107); CO2 23 mmol/L (21-32); CREATININE 5.1 mg/dL (0.55-1.3); GLUCOSE,RANDOM 63 mg/dL (74-106); POTASSIUM 5.5 mmol/L (3.5-5.1); SODIUM 134 mmol/L (136-145)
[2018-08-16] MEDS: SENNOSIDES 8.6MG TABLET (FP) PO SCH (22:22)
[2018-08-16] MEDS: DEXTROSE 50%-WATER - 25 GM/50 ML VIAL IVPUSH ONE ×2 (22:50)
[2018-08-17] MEDS: DEXTROSE 50%-WATER - 25 GM/50 ML VIAL IVPUSH ONE ×2 (00:02)
[2018-08-17] MEDS: METOPROLOL TARTRATE 5 MG/5 ML VIAL IVPUSH SCH ×4 (00:23→17:37)
--- NOTE | 2018-08-17 00:37 | PN ---
Progress Note (short form) - Note Progress Note: Patient hypoglycemic at 27 and 2 amps of D50W given Patient repeat glucose went to the 30's Additional 3 amps were given and repeat glucose was in the 60's Will start D20W (Higher concentration than D10) @30cc to avoid any fluid overload Will recheck glucose in an hour
[2018-08-17] MEDS ORDERED: DEXTROSE 10%-WATER - 1,000 ML IV SCH (01:00)
[2018-08-17] MEDS: NAFCILLIN - 2 GM in DEXTROSE 5%-WATER - 100 ML IVPB SCH ×6 (02:28→21:37)
[2018-08-17 05:58] LABS: HEMATOCRIT 21.9 % (32.4-45.2); MCH 20.4 pg (25.7-33.7); MCHC 30.3 g/dl (32.0-36.0); MEAN CELL VOLUME 67.4 fl (80-96); PLATELET COUNT 153 K/MM3 (134-434); RBC 3.25 M/mm3 (3.60-5.2); WHITE BLOOD COUNT 13.2 K/mm3 (4.0-10.0)
[2018-08-17 06:09] LABS: HBSAG SCREEN Negative (Negative); HEP B CORE AB, TOT Negative (Negative)
[2018-08-17 06:16] LABS: HEMOGLOBIN 6.6 GM/dL (10.7-15.3)
[2018-08-17] MEDS: INSULIN SLIDING SCALE (NOVOLOG) 1 VIAL SQ SCH ×3 (06:28→17:41)
[2018-08-17 06:37] LABS: ARTERIAL BLD GAS O2 SATURATION 98.9 % (90-98.9); ARTERIAL BLOOD GAS BASE EXCESS 2.2 meq/l (-2-2); ARTERIAL BLOOD GAS PCO2 37.8 mmHg (35-45); ARTERIAL BLOOD GAS pH 7.45 (7.35-7.45)
[2018-08-17 06:48] LABS: ANION GAP 14 MMOL/L (8-16); BLOOD UREA NITROGEN 72 mg/dL (7-18); CALCIUM 7.3 mg/dL (8.5-10.1); CHLORIDE 97 mmol/L (98-107); CO2 26 mmol/L (21-32); CREATININE 2.8 mg/dL (0.55-1.3); MAGNESIUM 2.1 mg/dL (1.8-2.4); PHOSPHOROUS 5.4 mg/dL (2.5-4.9); POTASSIUM 3.2 mmol/L (3.5-5.1); SODIUM 137 mmol/L (136-145)
[2018-08-17 06:53] LABS: GLUCOSE,RANDOM 395 mg/dL (74-106)
[2018-08-17 07:10] LABS: ALLENS TEST POSITIVE
[2018-08-17] MEDS ORDERED: POTASSIUM CHLORIDE TABS 20 MEQ TABLET.ER (FP) PO ONE ×2 (08:10→14:00)
--- NOTE | 2018-08-17 11:04 | PN ---
Progress Note, Physician History of Present Illness: Awake, confused Supine in bed S/P bilateral PCN No acute distress Afebrile WBC improved BC (08/16) no growth - Current Medication List Current Medications: Active Medications Budesonide/Formoterol Fumarate (Symbicort 160/4.5mcg -) 2 puff IH BID [facility] Last Admin: 08/16/18 22:35 Dose: Not Given Nafcillin Sodium 2 gm/ (Dextrose) 100 mls @ 100 mls/hr IVPB Q4H-IV LISA; Protocol Last Admin: 08/17/18 05:44 Dose: 100 mls/hr Insulin Aspart (Novolog Vial Sliding Scale -) 1 vial SQ ACHS [facility]; Protocol Last Admin: 08/17/18 06:28 Dose: 6 units Methylprednisolone Sodium Succinate (Solu-Medrol -) 20 mg IVPUSH DAILY [facility] Metoprolol Tartrate (Lopressor Injection -) 5 mg IVPUSH Q6H [facility] Last Admin: 08/17/18 05:44 Dose: 5 mg Metoprolol Tartrate (Lopressor Injection -) 5 mg IVPUSH Q4H PRN PRN Reason: TACHYCARDIA Ondansetron HCl (Zofran Injection) 4 mg IVPUSH Q6H PRN PRN Reason: NAUSEA AND/OR VOMITING Pantoprazole Sodium (Protonix -) 20 mg PO DAILY [facility] Last Admin: 08/16/18 11:07 Dose: Not Given Polyethylene Glycol (Miralax (For Daily Use) -) 17 gm PO BID [facility] Last Admin: 08/16/18 22:23 Dose: 17 grams Senna (Senna -) 2 tab PO HS [facility] Last Admin: 08/16/18 22:22 Dose: 2 tab Sodium Chloride ([place] Nasal [place] -) 2 spray NS BID PRN PRN Reason: NASAL CONGESTION Last Admin: 08/12/18 15:14 Dose: 2 spray - Objective Vital Signs: Vital Signs Temperature 98.4 F 08/17/18 10:00 Pulse Rate 113 H 08/17/18 10:00 Respiratory Rate 22 H 08/17/18 10:00 Blood Pressure 109/47 L 08/17/18 10:00 O2 Sat by Pulse Oximetry (%) 92 L 08/17/18 05:43 Constitutional: Yes: No Distress Cardiovascular: Yes: Regular Rate and Rhythm, S1, S2 Respiratory: Yes: Diminished Gastrointestinal: Yes: Normal Bowel Sounds, Soft. No: Tenderness Labs: CBC, BMP 08/17/18 05:30 08/17/18 05:30 INR, PTT INR 1.74 (0.83-1.09) H 08/16/18 09:25 Assessment/Plan Staph bacteremia/ sepsis MSSA Sepsis Acute renal failure S/P bilateral PCN Leukocytosis improved Lactic acidosis resolved Hemorrhagic cystitis COPD CHF Continue nafcillin Repeat BC no growth Echocardiogram no vegetations
--- NOTE | 2018-08-17 11:32 | PN ---
Progress Note (short form) - Note Progress Note: Chief Complaint: resp failure, hypotension History of Present Illness: lethargic, not answering questions. appears comfortable. no overnight events Current Medications Generic Name Dose Route Start Last Admin Trade Name Freq PRN Reason Stop Dose Admin Budesonide/Formoterol Fumarate 2 puff 08/11/18 22:00 08/16/18 22:35 Symbicort 160/4.5mcg - IH Not Given BID LISA Nafcillin Sodium 2 gm/ 100 mls @ 100 mls/hr 08/14/18 10:45 08/17/18 05:44 Dextrose IVPB 100 mls/hr Q4H-IV LISA Administration Protocol Insulin Aspart 1 vial 08/11/18 22:00 08/17/18 06:28 Novolog Vial Sliding Scale - SQ 6 units ACHS LISA Administration Protocol Methylprednisolone Sodium Succinate 20 mg 08/16/18 12:03 Solu-Medrol - IVPUSH DAILY LISA Metoprolol Tartrate 5 mg 08/14/18 12:17 08/17/18 05:44 Lopressor Injection - IVPUSH 5 mg Q6H LISA Administration Metoprolol Tartrate 5 mg 08/14/18 14:47 Lopressor Injection - IVPUSH Q4H PRN TACHYCARDIA Ondansetron HCl 4 mg 08/11/18 16:43 Zofran Injection IVPUSH Q6H PRN NAUSEA AND/OR VOMITING Pantoprazole Sodium 20 mg 08/12/18 10:00 08/16/18 11:07 Protonix - PO Not Given DAILY LISA Polyethylene Glycol 17 gm 08/11/18 22:00 08/16/18 22:23 Miralax (For Daily Use) - PO 17 grams BID LISA Administration Senna 2 tab 08/11/18 22:00 08/16/18 22:22 Senna - PO 2 tab HS LISA Administration Sodium Chloride 2 spray 08/12/18 13:26 08/12/18 15:14 [place] - NS 2 spray BID PRN Administration NASAL CONGESTION - Objective Vital Signs: Vital Signs Temp 98.4 F 08/17/18 10:00 Pulse 113 H 08/17/18 10:00 Resp 22 H 08/17/18 10:00 BP 109/47 L 08/17/18 10:00 Pulse Ox 92 L 08/17/18 05:43 Intake & Output 08/16/18 08/16/18 08/17/18 11:59 23:59 11:59 Intake Total 900 600 760 Output Total 0 1050 1950 Balance 900 -450 -1190 Intake: IV 700 200 180 D10w - 1,000 ml @ 30 mls/ 180 hr IV ASDIR LISA Rx#: [id number] Normal Saline - 1,000 ml 700 @ 100 mls/hr IV ASDIR LISA Rx#:[id number] Normal Saline - 1,000 ml 200 @ 50 mls/hr IV ASDIR LISA Rx#:[id number] IVPB 200 400 200 Oral 0 0 Tube Feeding 140 Tube Irrigant 240 Output: Urine 0 1050 1950 [place] 0 100 Left Nephrostomy 450 900 Right Nephrostomy 500 1050 Other: Voiding Method Indwelling Catheter Indwelling Catheter Bowel Movement No No Yes # Bowel Movements 1 Body Mass Index (BMI) 28.0 Weight Measurement Method Built in [facility] Built in [facility] Constitutional: Yes: Well Nourished, No Distress, Calm Cardiovascular: Yes: Pulse Irregular, +JVD, S1, S2. No: Gallop, Murmur Respiratory: Yes: Regular, + rales (anteriorly). No: Accessory Muscle Use Extremities: No: Cold Edema: No Neurological: Yes: Lethargy. No: Seizure Psychiatric: No: Agitated abd nd pos bs no jaundice diaphoresis Laboratory Last Values WBC 13.2 K/mm3 (4.0-10.0) H 08/17/18 05:30 RBC 3.25 M/mm3 (3.60-5.2) L 08/17/18 05:30 Hgb 6.6 GM/dL (10.7-15.3) L* 08/17/18 05:30 Hct 21.9 % (32.4-45.2) L D 08/17/18 05:30 MCV 67.4 fl (80-96) L 08/17/18 05:30 MCH 20.4 pg (25.7-33.7) L 08/17/18 05:30 MCHC 30.3 g/dl (32.0-36.0) L 08/17/18 05:30 RDW 18.0 % (11.6-15.6) H 08/17/18 05:30 Plt Count 153 K/MM3 (134-434) 08/17/18 05:30 MPV 9.0 fl (7.5-11.1) 08/17/18 05:30 Absolute Neuts (auto) 34.4 K/mm3 (1.5-8.0) H 08/14/18 05:30 Total Counted 100 08/11/18 19:30 Neutrophils % 94.4 % (42.8-82.8) H 08/14/18 05:30 Neutrophils % (Manual) 89.9 % (42.8-82.8) H 08/14/18 05:30 Band Neutrophils % 2.0 % 08/14/18 05:30 Lymphocytes % 1.4 % (8-40) L D 08/14/18 05:30 Lymphocytes % (Manual) 3.0 % (8-40) L D 08/14/18 05:30 Monocytes % 4.1 % (3.8-10.2) 08/14/18 05:30 Monocytes % (Manual) 5 % (3.8-10.2) D 08/14/18 05:30 Eosinophils % 0.0 % (0-4.5) 08/14/18 05:30 Eosinophils % (Manual) 0.0 % (0-4.5) 08/14/18 05:30 Basophils % 0.1 % (0-2.0) 08/14/18 05:30 Basophils % (Manual) 0.0 % (0-2.0) 08/14/18 05:30 Myelocytes % (Man) 0 % (0-2) 08/14/18 05:30 Promyelocytes % (Man) 0 % (0-2) 08/14/18 05:30 Blast Cells % (Manual) 0 % (0-0) 08/14/18 05:30 Nucleated RBC % 0 % (0-0) 08/14/18 05:30 Metamyelocytes 0 % (0-2) 08/14/18 05:30 Hypochromia 0 08/14/18 05:30 Toxic Granulation 1+ 08/14/18 05:30 Platelet Estimate Normal 08/14/18 05:30 Platelet Comment Present 08/12/18 05:30 Polychromasia 1+ 08/14/18 05:30 Poikilocytosis 1+ 08/14/18 05:30 Anisocytosis 2+ 08/14/18 05:30 Microcytosis 1+ 08/14/18 05:30 Macrocytosis 1+ 08/14/18 05:30 Spherocytes 1+ 08/14/18 05:30 Target Cells 2+ 08/12/18 05:30 Tear Drop Cells 1+ 08/14/18 05:30 Ovalocytes 1+ 08/14/18 05:30 Acanthocytes (Spur) 1+ 08/14/18 05:30 Fragmented RBCs 2+ 08/12/18 05:30 PT with INR 20.60 SEC (9.7-13.0) H 08/16/18 09:25 INR 1.74 (0.83-1.09) H 08/16/18 09:25 Anticoagulation Therapy No Result Required. 08/16/18 06:30 Puncture Site Right radial 08/17/18 06:00 ABG pH 7.45 (7.35-7.45) 08/17/18 06:00 ABG pCO2 at Pt Temp 37.8 mmHg (35-45) 08/17/18 06:00 ABG pO2 at Pt Temp 132.0 mmHg (68-100) H D 08/17/18 06:00 ABG HCO3 25.8 meq/L (22-26) 08/17/18 06:00 ABG O2 Sat (Measured) 98.9 % (90-98.9) 08/17/18 06:00 ABG O2 Content 9.3 % vol (15-22) L* 08/17/18 06:00 ABG Base Excess 2.2 meq/l (-2-2) H 08/17/18 06:00 Junior Test Positive 08/17/18 06:00 VBG pH 7.26 (7.32-7.42) L 07/25/18 15:10 POC VBG pCO2 81.5 mmHg (38-52) H* D 07/25/18 15:10 POC VBG pO2 27.4 mmHg (28-48) L D 07/25/18 15:10 Mixed VBG HCO3 35.2 meq/L (19-25) H 07/25/18 15:10 O2 Delivery Device Bipap 08/17/18 06:00 Oxygen Flow Rate 40% 08/17/18 06:00 Vent Mode S/t 08/17/18 06:00 Vent Rate 15 08/17/18 06:00 Mechanical Rate Bipap/ 14 ipap/5 epa 08/17/18 06:00 PEEP 0.0 cmH2O 07/27/18 08:43 Pressure Support Vent No Result Required. 08/16/18 06:30 Sodium 137 mmol/L (136-145) 08/17/18 05:30 Potassium 3.2 mmol/L (3.5-5.1) L 08/17/18 05:30 Chloride 97 mmol/L (98-107) L 08/17/18 05:30 Carbon Dioxide 26 mmol/L (21-32) 08/17/18 05:30 Anion Gap 14 MMOL/L (8-16) 08/17/18 05:30 BUN 72 mg/dL (7-18) H 08/17/18 05:30 Creatinine 2.8 mg/dL (0.55-1.3) H 08/17/18 05:30 Creat Clearance w eGFR 15.95 (>60) 08/17/18 05:30 POC Glucometer 260.39508 UNITS (80-120) 08/17/18 05:44 Random Glucose 395 mg/dL (74-106) H* 08/17/18 05:30 Hemoglobin A1c % 7.7 % (4.2-6.3) H 08/11/18 06:00 Lactic Acid 1.6 mmol/L (0.4-2.0) 08/13/18 18:30 Calcium 7.3 mg/dL (8.5-10.1) L 08/17/18 05:30 Phosphorus 5.4 mg/dL (2.5-4.9) H 08/17/18 05:30 Magnesium 2.1 mg/dL (1.8-2.4) 08/17/18 05:30 Total Bilirubin 0.8 mg/dL (0.2-1) 08/14/18 05:30 AST 23 U/L (15-37) 08/14/18 05:30 ALT 15 U/L (13-61) 08/14/18 05:30 Alkaline Phosphatase 73 U/L (45-117) 08/14/18 05:30 Creatine Kinase 71 IU/L (26-192) 07/29/18 14:40 Troponin I 0.28 ng/ml (0.00-0.05) H 08/13/18 21:00 B-Natriuretic Peptide 7963.3 pg/ml (5-450) H 07/25/18 14:44 Total Protein 5.7 g/dl (6.4-8.2) L 08/14/18 05:30 Albumin 2.0 g/dl (3.4-5.0) L 08/14/18 05:30 Lipase 87 U/L (73-393) 08/14/18 05:30 Urine Color Ltyellow 08/11/18 20:30 Urine Appearance Slcloudy 08/11/18 20:30 Urine pH 5.0 (5.0-8.0) 08/11/18 20:30 Ur Specific [place] 1.004 (1.010-1.035) L 08/11/18 20:30 Urine Protein Negative (NEGATIVE) 08/11/18 20:30 Urine Glucose (UA) Negative (NEGATIVE) 08/11/18 20:30 Urine Ketones Negative (NEGATIVE) 08/11/18 20:30 Urine Blood 3+ (NEGATIVE) H 08/11/18 20:30 Urine Nitrite Negative (NEGATIVE) 08/11/18 20:30 Urine Bilirubin Negative (<2.0 mg/dL) 08/11/18 20:30 Urine Urobilinogen Negative mg/dL (0.2-1.0) 08/11/18 20:30 Ur Leukocyte Esterase Trace (NEGATIVE) 08/11/18 20:30 Urine WBC (Auto) 69 /hpf (3-5) 08/11/18 20:30 Urine RBC (Auto) 148 /hpf (0-3) 08/11/18 20:30 Ur Epithelial Cells Few /HPF (FEW) 08/05/18 12:00 Urine Bacteria Rare /hpf (NONE SEEN) 08/11/18 20:30 Urine Eosinophils None seen % (.) 08/14/18 19:30 Ur Random Sodium 158 MMOL/L (40-220) 08/14/18 19:30 Ur Random Potassium < 9.0 MMOL/L (25-125) L 08/14/18 19:30 Ur Random Chloride 163 MMOL/L (110-250) 08/14/18 19:30 Urine Creatinine < 13.0 mg/dL (30-50) L 08/14/18 19:30 Random Vancomycin 22.6 ug/ml (18-26) 08/14/18 05:30 Hepatitis A Ab Total Negative (Negative) 08/16/18 05:30 Hep Bs Antigen Negative (Negative) 08/16/18 05:30 Hep Bs Antibody Non reactive (.) 08/16/18 05:30 Hep B Core Total Ab Negative (Negative) 08/16/18 05:30 Blood Type B POSITIVE 08/15/18 05:30 Antibody Screen Negative 08/15/18 05:30 Crossmatch See Detail 08/15/18 05:30 CXR: no sig change Echo 05/03: nl LVEF. mild RVE, mild-mod RV hypo. L/NEENA. mod MR/TR. RVSP at least 88 mmHg Echo 03/2017: Mild conc lvh. nl lv/rv size/fn, mod ronnie, mod mr, mod tr, rvsp 40- 50 EKG: afib with PVCs tele: afib rate acceptable. brief NSVT est cct 35 mins Assessment/Plan hypotension, NSTEMI, staph bacteremia: -periop hypotension 08/11 during cysto, briefly on pressors. likely due to bacteremia, overdiuresis -trop 2.0 the following day, trended down, likely Type II [place] sec to hypoperfusion/sepsis (+/- underlying stable CAD). ECG 08/[address]ressions inferior leads, improved on 08/12 tracing--cannot exclude Type I [place] at time of events. -AC initially held for gross hematuria with large clots/hydronephrosis, was back on eliquis and now stopped again due to hematuria. defer aspirin -BB and afib HR control as doing, hemodynamically stable - IV metoprolol as not taking PO consistently -consider risk stratification MPI once clinically stable (if will change med mgmt approach) -defer invasive CAD mgmt approach given Type II [place] > Type I here, plus pt's poor functional status with competing mortality limitations from severe lung dz , low likelihood to improve prognosis, and risks > benefits (including bleeding , AIN) SANAM: -s/p b/l perc nephrostomy, cr improved today -renal ultrasound shows raad hydronephrosis, urology following -holding lasix -renal following afib: -HRs rapid sec to ongoing sepsis, pt agitation, refusing po meds, improving with IV metoprolol, currently HR acceptable -defer CCB given concern about RV contractility depression (cor pulm pt) -if HRs rise will add digoxin, currently stable -eliquis stopped again due to hematuria acute resp failure with wheezing, acute exacerbation of copd/pulm sarcoid, acute diast CHF, cor pulmonale with RV failure -being tx'd with BDs, steroids O2 per pulm -CXR clear, BNP >7000, required bipap for increased work of breathing -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 initially 158 here. -cont lasix iv 80 bid -07/29: Creat 0.6 and weight down to 162, continue current lasix regimen -07/30: Creat 0.8, K 3.4, Wt 161. Continue current lasix regimen, replete K -07/31: 161 lbs. -08/01: wt 160 lbs, cont same -08/02-: appears euvolemic. was on lasix 40 qd at home. transitioned 80 iv bid to 80 qd -08/06: iv steroids continue and now dose increased. wt up a bit as well, restarted lasix 80 mg IV BID - 08/07-: weight continues to decrease, sob improving, Cr stable, still on IV steroids. Continue lasix 80 mg IV BID while on IV steroids. plan change to po lasix 80 daily when on po steroids. - 08/12: hypotensive during cystoscopy, looks dry clinically. SANAM this am. lasix on hold, gentle IVF--observe chf status closely - 08/13: lactic acidosis, + staph in BCx's the past 2 days, organism awaiting ID. renal fxn worsening significantly--incr IVF rate (125 cc/hr) - 08/14: remains non-edematous. CXR improved. renal fxn worsening rapidly. cont IVF - 08/15: Cr continues to rise, appears euvolemic. cont IVF, poor PO intake - 08/16:renal function continues to decline, appears overloaded. IVF rate cut back, dc IV fluids for now -08/17: s/p b/l perc nephrostomy, cr improved today. cont to hold ivfs and lasix. HTN: -bp controlled -cont current meds hematuria, obstruction with hydro: - cysto showed hemorrhagic cystitis with large amount of clot which was evacuated - CBI dc'ed per urology, reportedly hematuria again. stopped eliquis
--- NOTE | 2018-08-17 12:13 | PN ---
Teaching Attending Note Name of Resident: Jacqueline Bains ATTENDING PHYSICIAN STATEMENT I saw and evaluated the patient. I reviewed the resident's note and discussed the case with the resident. I agree with the resident's findings and plan as documented. SUBJECTIVE: Pt seen and examined in the ICU. Lethargic but renal function improving. Good output from nephrostomy tubes but bloody. OBJECTIVE: Vital Signs Period Temp Pulse Resp BP Sys/Garza Pulse Ox Last 24 Hr 97.6 F-98.4 F 9-132 14-28 90-123/36-69 92-94 Intake & Output 08/14/18 08/15/18 08/16/18 08/17/18 23:59 23:59 23:59 23:59 Intake Total 44626 2460 1500 760 Output Total 41574 0 1050 1950 Balance 2385 2460 450 -1190 Weight 69.8 kg Gen: lethargic, tachypneic Heart: tachycardic, irregular Lung: scattered rhonchi Abd: soft, nontender Ext: no edema CBC, BMP 08/17/18 05:30 08/17/18 05:30 Active Medications Budesonide/Formoterol Fumarate (Symbicort 160/4.5mcg -) 2 puff IH BID [facility] Last Admin: 08/16/18 22:35 Dose: Not Given Nafcillin Sodium 2 gm/ (Dextrose) 100 mls @ 100 mls/hr IVPB Q4H-IV LISA; Protocol Last Admin: 08/17/18 05:44 Dose: 100 mls/hr Insulin Aspart (Novolog Vial Sliding Scale -) 1 vial SQ ACHS [facility]; Protocol Last Admin: 08/17/18 06:28 Dose: 6 units Methylprednisolone Sodium Succinate (Solu-Medrol -) 20 mg IVPUSH DAILY [facility] Metoprolol Tartrate (Lopressor Injection -) 5 mg IVPUSH Q6H [facility] Last Admin: 08/17/18 05:44 Dose: 5 mg Metoprolol Tartrate (Lopressor Injection -) 5 mg IVPUSH Q4H PRN PRN Reason: TACHYCARDIA Ondansetron HCl (Zofran Injection) 4 mg IVPUSH Q6H PRN PRN Reason: NAUSEA AND/OR VOMITING Pantoprazole Sodium (Protonix -) 20 mg PO DAILY [facility] Last Admin: 08/16/18 11:07 Dose: Not Given Polyethylene Glycol (Miralax (For Daily Use) -) 17 gm PO BID [facility] Last Admin: 08/16/18 22:23 Dose: 17 grams Senna (Senna -) 2 tab PO HS [facility] Last Admin: 08/16/18 22:22 Dose: 2 tab Sodium Chloride ([place] [address] Nas[address] -) 2 spray NS BID PRN PRN Reason: NASAL CONGESTION Last Admin: 08/12/18 15:14 Dose: 2 spray ASSESSMENT AND PLAN: Acute on Chronic Hypoxic and Hypercapneic Respiratory Failure Acute on Chronic Diastolic Heart Failure Acute COPD Exacerbation Sarcoidosis Severe Pulmonary HTN Atrial Fibrillation HTN Hyperlipidemia Hematuria s/p Cystoscopy MSSA Bacteremia Sepsis Acute Kidney Injury Right Hydronephrosis s/p nephrostomy placement - antibiotics per ID - f/u repeat cultures - taper medrol - inhaled bronchodilators - O2 to keep SpO2>90% - monitor urine output, creatinine - rate control - holding anticoagulation - transfuse PRBC - monitor H/H - continue ICU monitoring - prognosis guarded, palliative care f/u critical care time spent in reviewing chart, evaluating patient and formulating plan 35 min
[2018-08-17] MEDS ORDERED: MIDAZOLAM HCL 2 MG/2 ML SINGLE DOSE VIAL IVPUSH ONE (12:47)
[2018-08-17] MEDS ORDERED: MIDAZOLAM HCL 2 MG/2 ML SINGLE DOSE VIAL ONE (12:50)
[2018-08-17] MEDS: POLYETHYLENE GLYCOL 3350 119 GM BTL PO SCH ×2 (12:56→21:32)
[2018-08-17] MEDS: methylPREDNISolone NA SUCC 40 MG/1 ML VIAL IVPUSH SCH ×2 (12:56→13:55)
[2018-08-17] MEDS: BUDESONIDE/FORMETEROL FUMARATE 160/4.5 mcg INHALER IH SCH (12:57)
--- NOTE | 2018-08-17 13:44 | PN ---
Progress Note, Physician History of Present Illness: Pt seen and examined at bedside. She is more lethargic today. She had bilateral nephrostomy tubes placed. - Current Medication List Current Medications: Active Medications Budesonide/Formoterol Fumarate (Symbicort 160/4.5mcg -) 2 puff IH BID [facility] Last Admin: 08/17/18 12:57 Dose: Not Given Nafcillin Sodium 2 gm/ (Dextrose) 100 mls @ 100 mls/hr IVPB Q4H-IV [facility]; Protocol Last Admin: 08/17/18 12:56 Dose: Not Given Insulin Aspart (Novolog Vial Sliding Scale -) 1 vial SQ ACHS [facility]; Protocol Last Admin: 08/17/18 06:28 Dose: 6 units Methylprednisolone Sodium Succinate (Solu-Medrol -) 20 mg IVPUSH DAILY [facility] Last Admin: 08/17/18 12:56 Dose: Not Given Metoprolol Tartrate (Lopressor Injection -) 5 mg IVPUSH Q6H [facility] Last Admin: 08/17/18 05:44 Dose: 5 mg Metoprolol Tartrate (Lopressor Injection -) 5 mg IVPUSH Q4H PRN PRN Reason: TACHYCARDIA Ondansetron HCl (Zofran Injection) 4 mg IVPUSH Q6H PRN PRN Reason: NAUSEA AND/OR VOMITING Pantoprazole Sodium (Protonix -) 20 mg PO DAILY [facility] Last Admin: 08/16/18 11:07 Dose: Not Given Polyethylene Glycol (Miralax (For Daily Use) -) 17 gm PO BID [facility] Last Admin: 08/17/18 12:56 Dose: Not Given Senna (Senna -) 2 tab PO HS [facility] Last Admin: 08/16/18 22:22 Dose: 2 tab Sodium Chloride ([place] Nasal [place] -) 2 spray NS BID PRN PRN Reason: NASAL CONGESTION Last Admin: 08/12/18 15:14 Dose: 2 spray - Objective Vital Signs: Vital Signs Temperature 98.4 F 08/17/18 10:00 Pulse Rate 110 H 08/17/18 12:00 Respiratory Rate 15 08/17/18 12:00 Blood Pressure 103/47 L 08/17/18 12:00 O2 Sat by Pulse Oximetry (%) 94 L 08/17/18 10:00 Constitutional: Yes: Calm Eyes: Yes: Conjunctiva Clear HENT: Yes: Atraumatic Cardiovascular: Yes: S1, S2 Respiratory: Yes: On Nasal O2 Gastrointestinal: Yes: Soft Genitourinary: Yes: [place] Present, Other (bilateral nephrostomy tubes) Edema: No Neurological: Yes: Lethargy Labs: CBC, BMP 08/17/18 05:30 08/17/18 05:30 INR, PTT INR 1.74 (0.83-1.09) H 08/16/18 09:25 - ....Imaging Chest X-ray: Report Reviewed Problem List - Problems (1) SANAM (acute kidney injury) Code(s): N17.9 - ACUTE KIDNEY FAILURE, UNSPECIFIED (2) CHF (congestive heart failure) Code(s): I50.9 - HEART FAILURE, UNSPECIFIED (3) Abdominal pain Code(s): R10.9 - UNSPECIFIED ABDOMINAL PAIN (4) Atrial fibrillation Code(s): I48.91 - UNSPECIFIED ATRIAL FIBRILLATION Qualifiers: Atrial fibrillation type: permanent Qualified Code(s): I48.2 - Chronic atrial fibrillation Assessment/Plan Impression 1. SANAM 2. hypotension 3. pulm HTN 4. CHF 5. hematuria 6. sarcoid 7. COPD 8. a-fib 9. hx of HTN 10. hyperlipidemia 11. hyperkalemia 12. mild hydro on ultrasound Plan - monitor urine output - renal function is improving - SANAM likely from obstruction and atn - replace potassium - monitor for post obstructive diuresis - monitor bp - abx per ID - daily cxr - will follow Dr Del Angel
[2018-08-17] MEDS: PANTOPRAZOLE 20 MG TABLET (FP) PO SCH (13:57)
[2018-08-17] MEDS ORDERED: POTASSIUM CHLORIDE ORAL LIQUID 20 MEQ/15 ML NGT ONE (14:01)
--- NOTE | 2018-08-17 14:03 | PROC ---
<Jacqueline Bains - Last Filed: 08/17/18 14:02> Central Line Insertion Indication: Poor Venous Access Risks and Benefits Explained: Yes Consent on Chart: Yes Central Line: Triple Lumen Catheter Anesthesia: 1% Lidocaine Sterile Technique: Yes Ultrasound Guided Assistance: Yes Position: Right Internal Jugular Post Insertion: Yes: Chest X-Ray Ordered <Lon Espinosa MD - Last Filed: 08/17/18 14:04> Procedure Note Procedure: I supervised and was present during the entire procedure. Lon Espinosa MD
--- NOTE | 2018-08-17 14:53 | PN ---
Physical Exam: SUBJECTIVE: Patient seen and examined at bedside. Patient had episodes of hypoglycemic overnight with BGMs at the 20s. A total of 7amps of D50 was given and D10 drip was started. Repeat BGM in the morning was 250. D10 drip discontinued. No peripheral lines could be accessed. Central line placed. Goals of care discussed with grandson and [place]. In light of improving renal function, family would want to wait when patient gets better and would want her to be included in the decision making and be able to express her wishes. I/O: 2250/2600; L nephrostomy tube 700cc, R nephrostomy tube 800cc, and urine output 1550. OBJECTIVE: Vital Signs Period Temp Pulse Resp BP Sys/Garza Pulse Ox Last 24 Hr 97.6 F-98.4 F 9-132 14-25 90-123/43-69 92-94 GENERAL: The patient is lethargic, on 3L NC. NECK: Trachea midline, full range of motion, supple. Right IJ line placed. LUNGS: +scattered rhonchi bilaterally HEART: Regular rate and rhythm, S1, S2 without murmur, rub or gallop. ABDOMEN: Soft, +mild tenderness, nondistended, normoactive bowel sounds. EXTREMITIES: 2+ pulses, warm, well-perfused, no edema. SKIN: Warm, dry, normal turgor. Laboratory Results - last 24 hr 08/14/18 08/15/18 08/16/18 19:30 05:30 05:30 WBC RBC Hgb Hct MCV MCH MCHC RDW Plt Count MPV Puncture Site ABG pH ABG pCO2 at Pt Temp ABG pO2 at Pt Temp ABG HCO3 ABG O2 Sat (Measured) ABG O2 Content ABG Base Excess Junior Test O2 Delivery Device Oxygen Flow Rate Vent Mode Vent Rate Mechanical Rate Sodium Potassium Chloride Carbon Dioxide Anion Gap BUN Creatinine Creat Clearance w eGFR POC Glucometer Random Glucose Calcium Phosphorus Magnesium Urine Eosinophils None seen Hepatitis A Ab Total Negative Hep Bs Antigen Negative Hep Bs Antibody Non reactive Hep B Core Total Ab Negative Blood Type B POSITIVE Antibody Screen Negative Crossmatch See Detail 08/16/18 08/16/18 08/16/18 15:28 15:30 16:06 WBC 18.8 H RBC 3.98 Hgb 8.2 L Hct 27.5 L D MCV 69.0 L MCH 20.6 L MCHC 29.9 L RDW 18.3 H Plt Count 178 MPV 9.6 Puncture Site ABG pH ABG pCO2 at Pt Temp ABG pO2 at Pt Temp ABG HCO3 ABG O2 Sat (Measured) ABG O2 Content ABG Base Excess Junior Test O2 Delivery Device Oxygen Flow Rate Vent Mode Vent Rate Mechanical Rate Sodium 134 L Potassium 5.5 H Chloride 94 L Carbon Dioxide 23 Anion Gap 16 BUN 101 H Creatinine 5.1 H Creat Clearance w eGFR 7.98 POC Glucometer 78.19437 Random Glucose 63 L Calcium 7.5 L Phosphorus Magnesium Urine Eosinophils Hepatitis A Ab Total Hep Bs Antigen Hep Bs Antibody Hep B Core Total Ab Blood Type Antibody Screen Crossmatch 08/16/18 08/16/18 08/16/18 22:28 22:54 23:34 WBC RBC Hgb Hct MCV MCH MCHC RDW Plt Count MPV Puncture Site ABG pH ABG pCO2 at Pt Temp ABG pO2 at Pt Temp ABG HCO3 ABG O2 Sat (Measured) ABG O2 Content ABG Base Excess Junior Test O2 Delivery Device Oxygen Flow Rate Vent Mode Vent Rate Mechanical Rate Sodium Potassium Chloride Carbon Dioxide Anion Gap BUN Creatinine Creat Clearance w eGFR POC Glucometer < 50 < 50 65.85603 Random Glucose Calcium Phosphorus Magnesium Urine Eosinophils Hepatitis A Ab Total Hep Bs Antigen Hep Bs Antibody Hep B Core Total Ab Blood Type Antibody Screen Crossmatch 08/17/18 08/17/18 08/17/18 00:28 01:44 04:21 WBC RBC Hgb Hct MCV MCH MCHC RDW Plt Count MPV Puncture Site ABG pH ABG pCO2 at Pt Temp ABG pO2 at Pt Temp ABG HCO3 ABG O2 Sat (Measured) ABG O2 Content ABG Base Excess Junior Test O2 Delivery Device Oxygen Flow Rate Vent Mode Vent Rate Mechanical Rate Sodium Potassium Chloride Carbon Dioxide Anion Gap BUN Creatinine Creat Clearance w eGFR POC Glucometer 60.66023 69.41009 245.53551 Random Glucose Calcium Phosphorus Magnesium Urine Eosinophils Hepatitis A Ab Total Hep Bs Antigen Hep Bs Antibody Hep B Core Total Ab Blood Type Antibody Screen Crossmatch 08/17/18 08/17/18 08/17/18 05:30 05:30 05:44 WBC 13.2 H RBC 3.25 L Hgb 6.6 L* Hct 21.9 L D MCV 67.4 L MCH 20.4 L MCHC 30.3 L RDW 18.0 H Plt Count 153 MPV 9.0 Puncture Site ABG pH ABG pCO2 at Pt Temp ABG pO2 at Pt Temp ABG HCO3 ABG O2 Sat (Measured) ABG O2 Content ABG Base Excess Junior Test O2 Delivery Device Oxygen Flow Rate Vent Mode Vent Rate Mechanical Rate Sodium 137 Potassium 3.2 L Chloride 97 L Carbon Dioxide 26 Anion Gap 14 BUN 72 H Creatinine 2.8 H Creat Clearance w eGFR 15.95 POC Glucometer 260.08627 Random Glucose 395 H* Calcium 7.3 L Phosphorus 5.4 H Magnesium 2.1 Urine Eosinophils Hepatitis A Ab Total Hep Bs Antigen Hep Bs Antibody Hep B Core Total Ab Blood Type Antibody Screen Crossmatch 08/17/18 06:00 WBC RBC Hgb Hct MCV MCH MCHC RDW Plt Count MPV Puncture Site Right radial ABG pH 7.45 ABG pCO2 at Pt Temp 37.8 ABG pO2 at Pt Temp 132.0 H D ABG HCO3 25.8 ABG O2 Sat (Measured) 98.9 ABG O2 Content 9.3 L* ABG Base Excess 2.2 H Junior Test Positive O2 Delivery Device Bipap Oxygen Flow Rate 40% Vent Mode S/t Vent Rate 15 Mechanical Rate Bipap/ 14 ipap/5 epa Sodium Potassium Chloride Carbon Dioxide Anion Gap BUN Creatinine Creat Clearance w eGFR POC Glucometer Random Glucose Calcium Phosphorus Magnesium Urine Eosinophils Hepatitis A Ab Total Hep Bs Antigen Hep Bs Antibody Hep B Core Total Ab Blood Type Antibody Screen Crossmatch Active Medications Generic Name Dose Route Start Last Admin Trade Name Freq PRN Reason Stop Dose Admin Budesonide/Formoterol Fumarate 2 puff 08/11/18 22:00 08/17/18 12:57 Symbicort 160/4.5mcg - IH Not Given BID LISA Nafcillin Sodium 2 gm/ 100 mls @ 100 mls/hr 08/14/18 10:45 08/17/18 12:56 Dextrose IVPB Not Given Q4H-IV [facility] Protocol Insulin Aspart 1 vial 08/11/18 22:00 08/17/18 13:54 Novolog Vial Sliding Scale - SQ Not Given ACHS [facility] Protocol Methylprednisolone Sodium Succinate 20 mg 08/16/18 12:03 08/17/18 13:55 Solu-Medrol - IVPUSH 20 mg DAILY LISA Administration Metoprolol Tartrate 5 mg 08/14/18 12:17 11/01/18 13:56 Lopressor Injection - IVPUSH 5 mg Q6H LISA Administration Metoprolol Tartrate 5 mg 08/14/18 14:47 Lopressor Injection - IVPUSH Q4H PRN TACHYCARDIA Ondansetron HCl 4 mg 08/11/18 16:43 Zofran Injection IVPUSH Q6H PRN NAUSEA AND/OR VOMITING Pantoprazole Sodium 20 mg 08/12/18 10:00 08/17/18 13:57 Protonix - PO 20 mg DAILY LISA Administration Polyethylene Glycol 17 gm 08/11/18 22:00 08/17/18 12:56 Miralax (For Daily Use) - PO Not Given BID LISA Senna 2 tab 08/11/18 22:00 08/16/18 22:22 Senna - PO 2 tab HS LISA Administration Sodium Chloride 2 spray 08/12/18 13:26 08/12/18 15:14 [place] Nasal [place] - NS 2 spray BID PRN Administration NASAL CONGESTION ASSESSMENT/PLAN: Patient is an 87 yo female with PMH of a-fib (rate controlled, on eliquis), COPD (on 2L home o2), HTN, pulmonary HTN, presented with gross hematuria. Renal and bladder US revealed right hydronephrosis and multiple filling defects in the bladder. Patient is s/p cystoscopy, clot evacuation, bladder biopsy and bladder fulgeration. #Pulmonary 1)Acute hypoxic/hypercapneic respiratory failure likely secondary to CHF/COPD exacerbation -Was on Bipap overnight, this morning tolerated Nasal canula. -Duoneb QID -Albuterol PRN -Decreased IV solu-medrol to 20mg daily -CXR and ABG in AM #Cardiovascular 1)Hypotension -gne-operative hypotension, likely 2/2 sepsis -Cardiology (Dr. Mendez) consulted. Recommendations appreciated. -trop 2.0 the following day, trending down--suspect Type II ME sec to hypoperfusion/sepsis (+/- underlying stable CAD), given associated finding of bacteremia. ECG 08/[address] depressions inferior leads, improved on 08/12 tracing--cannot exclude Type I ME at time of events. -AC initially held for gross hematuria with large clots/hydronephrosis -BB and afib HR control as doing -hemodynamically stable, observe BPs as titrate AF meds 2)Atrial Fibrillation -HR still tachycardic, but more controlled with increased dose of Lopressor -Continue Lopressor to 5mg IV q6h with Lopressor 5mg q4h PRN doses -if HRs rise will add digoxin -eliquis put on hold, for right nephrostomy tube placement today. -will resume eliquis 3)Acute on chronic diastolic CHF -IVF discontinued. -CXR daily. 4)Troponinemia -trop peaked at 2.0, trended down -likely demand ischemia from hypoperfusion/sepsis -ECG 08/[address] depressions inferior leads, improved on tracing--cannot exclude Type I ME at time of events. 5)Hypertension -BP controlled -cont current meds #Infectious disease 1)Bacteremia: likely 2/2 UTI -Blood cx: +Presumptive MSSA -Repeat blood cultures pending. -urine culture positive for Staph. Repeat urine cultures pending -Infectious Disease (Dr. Garcia) consulted. Recommendations appreciated. -Continue IV Nafcillin 2gm q4h #Hematology 1) Anemia -likely 2/2 hematuria -1 unit pRBC given -repeat CBC post-transfusion #Genitourinary 1)Hemorrhagic cystitis -Patient underwent cystoscopy 08/11/2018 for gross hematuria,clot retention, rt. hydronephrosis -CBI discontinued. -will resume eliquis -Renal US: Mild to moderate right renal hydronephrosis and dilatation of the proximal right ureter that appears to have slightly worsened since prior exam. Partially exophytic left renal lwoer pole cyst measuring 2.7cm and mild left renal hydronephrosis. -Urology (Dr. Colon) consulted. -Dr. Watkins consulted. -s/p IR-guided b/l nephrostomy tube placement, with good output -Urine output: bright red #Nephrology 1)SANAM, improving -likely from ATN and is likely multifactorial. Avoid hypotension -BUN/Cr: 103/5.3 --> 72/2.8 -Nephrology (Dr. Del Angel) consulted. Recommendations appreciated. -monitor bp and pressors to map of 65 -pt now on nafcillin, was on zosyn and did get a dose of vanco -follow up repeat labs -renal function is worsening -- likely ATN -will send more extensive renal workup -s/p b/l nephrostomy tube placement -monitor for post obstructive diuresis -fluids discontinued. 2)Hypokalemia: K 3.2 -Nephrology consulted. -KCL through NGT given -Will continue to monitor 3)Hyperphosphatemia, resolvin --> 5.4 -will repeat electrolytes #Endocrine 1)Hypoglycemia: -Patient had episodes of hypoglycemia overnight with BGM at 20s. -7 amps of D50 IV push given and D10 drip started. -Repeat BGM showed glu 250s, D10 drip discontinued -will continue to monitor #FEN -IVF discontinued. -routine bmp monitoring -NGT feeding. #Prophylaxis 1)DVT - On Eliquis 5mg BID 2)GI - Protonix 20mg daily #Disposition -ICU for closer monitoring -palliative care consulted. Visit type - Emergency Visit Emergency Visit: Yes ED Registration Date: 07/25/18 Care time: The patient presented to the Emergency Department on the above date and was hospitalized for further evaluation of their emergent condition. - New Patient This patient is new to me today: Yes Date on this admission: 08/17/18 - Critical Care Critical Care patient: Yes Total Critical Care Time (in minutes): 45 Critical Care Statement: The care of this patient involved high complexity decision making to prevent further life threatening deterioration of the patient 's condition and/or to evaluate & treat vital organ system(s) failure or risk of failure.
--- NOTE | 2018-08-17 15:39 | PN ---
Teaching Attending Note Name of Resident: Marco A Colon ATTENDING PHYSICIAN STATEMENT I saw and evaluated the patient. I reviewed the resident's note and discussed the case with the resident. I agree with the resident's findings and plan as documented. SUBJECTIVE:lethargic. withdraws to pain OBJECTIVE: Last Vital Signs Temp Pulse Resp BP Pulse Ox 99.1 F 100 H 17 106/56 L 94 L 08/17/18 14:00 08/17/18 14:00 08/17/18 14:00 08/17/18 14:00 08/17/18 10:00 Intake & Output 08/14/18 08/15/18 08/16/18 08/17/18 23:59 23:59 23:59 23:59 Intake Total 26514 2460 1500 760 Output Total 56414 0 1050 2350 Balance 2385 2460 450 -1590 Weight 153 lb 14.122 oz General lethargic, withdraws to pain CV S1 S2 tachy irregular Lungs decreased breath sounds anteriorly. no wheezing, poor inspiratory effort Abdomen soft +suprapubic tenderness no distention. BS + Extremities RUE is has diffuse swelling. no tenderness noted. no phlebitis seen. 1+ pedal edema ASSESSMENT AND PLAN: 81 yo F with PMhx of sarcoidosis diagnosed in 1985, Chronic diastolic HF, severe pulmonary HTN, COPD on 2L home oxygen, AFib on eliquis, HTN, HLD, frequent admissions with CHF/respiratory distress admitted with acute hypercapneic/hypoxic respiratory failure, CHF exaerbation. Course complicated by development of hematuria. Cystoscopy was done where pt developed hypotension requiring pressors and was placed iN ICU. 1. Acute hypercapneic/hypoxic respiratory failure-due to CHF and COPD exacerbation. on bipap overnight. medrol 20mg daily. chest pt, Nebs and inhalers. pulmonary and cardio on board 2. Acute diastolic heart failure exacerbation-+pulm congestion and pedal edema. wont be able to tolerate lasix at this time with noted hypotension. however UOP through nephrostomy tubes is improves so possible post-obstructive diuresis. will monitor fluid status. Monitor electrolytes, daily weights, cardio on board 3. Hemorrhagic cystitis- continues to have scant hematuria. no UOP in rodriguez at this time. monitor output 4. Acute Blood loss anemia- due to hemorrhagic cystitis with sangenous drainage from nephrostomy tubes. give 1 unit PRBC. will transfuse 1 unit PRBC. for a total of 2 units PRBC. repeat CBC. 5. RUE swelling- possible is infiltration from IV line. no signs of infection. check doppler to r/o DVT as eliquis has been on hold 6. Hypoglycemia- due to poor oral intake. s/p D10W. now improved. NGT inserted for enteral feeds. BGM monitoring to prevent hypoglycemia 7. Acute metabolic toxic encephalopathy- becoming more lethargic. could possible be from hypoglycemia vs uremia vs infection. as per RN was more alert earlier today. will monitor closely. moves all 4 extremities. frequent neurochecks. 8. SANAM- due to hypoperfusion. s/p B/L nephrostomy tubes 08/16 with good UOP. significant improvment in renal functin. renal on board. avoid nephrotoxic agents. no eosinophilia 9. Tropinemia- TNI peaked at 2. likely due to hypoperfusion from procedure. no indication for workup at this time. medical management 10. afib- improved. cont to titrate metoprolol IV as tolerated. refusing oral meds. holding eliquis. cardio on board. 11. MSSA Bacteremia-with urine also showing MSSA. echo negative for endocarditis. on nafcillin day 4. repeat Cx NGTD. ID on board 12. 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 Sarcoidosis 15. COPD on 2L home oxygen 16. HTN- currently hypotensive. hold antihypertensive agents 17. dyslipidemia 18. DVT ppx- SCD 19. MICU monitoring The care of this patient involved high complexity decision making to prevent further life threatening deterioration of the patient's condition and/or to evaluate & treat vital organ system(s) failure or risk of failure. 45 mins
[2018-08-17] MEDS ORDERED: PT OWN MED DRAWER 7, Y5N ONE ×2 (15:41→21:35)
--- NOTE | 2018-08-17 15:53 | PN ---
Physical Exam: SUBJECTIVE: Patient seen and examined at bedside. Lethargic, minimal responsiveness. Pt hypoglycemic overnight. BGMs at the 20s. A total of 7amps of D50 was given and D10 drip was started. Repeat BGM in the morning was 250. Central line place this afternoon due to inability to obtain peripheral venous access . OBJECTIVE: Vital Signs Period Temp Pulse Resp BP Sys/Garza Pulse Ox Last 24 Hr 97.6 F-99.1 F 9-132 14-25 90-123/43-69 92-94 GENERAL: Lethargic HEAD: NC/AT LUNGS: BS decreased anteriorly. HEART: Irregularly irregular ABDOMEN: Soft ND BS hypoactive EXTREMITIES: Edema RUE, 2/2 IV access attempts? SKIN: Warm, dry, normal turgor, no rashes or lesions noted Laboratory Results - last 24 hr 08/14/18 08/15/18 08/16/18 19:30 05:30 05:30 WBC RBC Hgb Hct MCV MCH MCHC RDW Plt Count MPV Puncture Site ABG pH ABG pCO2 at Pt Temp ABG pO2 at Pt Temp ABG HCO3 ABG O2 Sat (Measured) ABG O2 Content ABG Base Excess Junior Test O2 Delivery Device Oxygen Flow Rate Vent Mode Vent Rate Mechanical Rate Sodium Potassium Chloride Carbon Dioxide Anion Gap BUN Creatinine Creat Clearance w eGFR POC Glucometer Random Glucose Calcium Phosphorus Magnesium Urine Eosinophils None seen Hepatitis A Ab Total Negative Hep Bs Antigen Negative Hep Bs Antibody Non reactive Hep B Core Total Ab Negative Blood Type B POSITIVE Antibody Screen Negative Crossmatch See Detail 08/16/18 08/16/18 08/16/18 15:28 15:30 16:06 WBC 18.8 H RBC 3.98 Hgb 8.2 L Hct 27.5 L D MCV 69.0 L MCH 20.6 L MCHC 29.9 L RDW 18.3 H Plt Count 178 MPV 9.6 Puncture Site ABG pH ABG pCO2 at Pt Temp ABG pO2 at Pt Temp ABG HCO3 ABG O2 Sat (Measured) ABG O2 Content ABG Base Excess Junior Test O2 Delivery Device Oxygen Flow Rate Vent Mode Vent Rate Mechanical Rate Sodium 134 L Potassium 5.5 H Chloride 94 L Carbon Dioxide 23 Anion Gap 16 BUN 101 H Creatinine 5.1 H Creat Clearance w eGFR 7.98 POC Glucometer 78.63319 Random Glucose 63 L Calcium 7.5 L Phosphorus Magnesium Urine Eosinophils Hepatitis A Ab Total Hep Bs Antigen Hep Bs Antibody Hep B Core Total Ab Blood Type Antibody Screen Crossmatch 08/16/18 08/16/18 08/16/18 22:28 22:54 23:34 WBC RBC Hgb Hct MCV MCH MCHC RDW Plt Count MPV Puncture Site ABG pH ABG pCO2 at Pt Temp ABG pO2 at Pt Temp ABG HCO3 ABG O2 Sat (Measured) ABG O2 Content ABG Base Excess Junior Test O2 Delivery Device Oxygen Flow Rate Vent Mode Vent Rate Mechanical Rate Sodium Potassium Chloride Carbon Dioxide Anion Gap BUN Creatinine Creat Clearance w eGFR POC Glucometer < 50 < 50 [phone] Random Glucose Calcium Phosphorus Magnesium Urine Eosinophils Hepatitis A Ab Total Hep Bs Antigen Hep Bs Antibody Hep B Core Total Ab Blood Type Antibody Screen Crossmatch 08/17/18 08/17/18 08/17/18 00:28 01:44 04:21 WBC RBC Hgb Hct MCV MCH MCHC RDW Plt Count MPV Puncture Site ABG pH ABG pCO2 at Pt Temp ABG pO2 at Pt Temp ABG HCO3 ABG O2 Sat (Measured) ABG O2 Content ABG Base Excess Junior Test O2 Delivery Device Oxygen Flow Rate Vent Mode Vent Rate Mechanical Rate Sodium Potassium Chloride Carbon Dioxide Anion Gap BUN Creatinine Creat Clearance w eGFR POC Glucometer 60.46543 69.36170 [phone] Random Glucose Calcium Phosphorus Magnesium Urine Eosinophils Hepatitis A Ab Total Hep Bs Antigen Hep Bs Antibody Hep B Core Total Ab Blood Type Antibody Screen Crossmatch 08/17/18 08/17/18 08/17/18 05:30 05:30 05:44 WBC 13.2 H RBC 3.25 L Hgb 6.6 L* Hct 21.9 L D MCV 67.4 L MCH 20.4 L MCHC 30.3 L RDW 18.0 H Plt Count 153 MPV 9.0 Puncture Site ABG pH ABG pCO2 at Pt Temp ABG pO2 at Pt Temp ABG HCO3 ABG O2 Sat (Measured) ABG O2 Content ABG Base Excess Junior Test O2 Delivery Device Oxygen Flow Rate Vent Mode Vent Rate Mechanical Rate Sodium 137 Potassium 3.2 L Chloride 97 L Carbon Dioxide 26 Anion Gap 14 BUN 72 H Creatinine 2.8 H Creat Clearance w eGFR 15.95 POC Glucometer [phone] Random Glucose 395 H* Calcium 7.3 L Phosphorus 5.4 H Magnesium 2.1 Urine Eosinophils Hepatitis A Ab Total Hep Bs Antigen Hep Bs Antibody Hep B Core Total Ab Blood Type Antibody Screen Crossmatch 08/17/18 06:00 WBC RBC Hgb Hct MCV MCH MCHC RDW Plt Count MPV Puncture Site Right radial ABG pH 7.45 ABG pCO2 at Pt Temp 37.8 ABG pO2 at Pt Temp 132.0 H D ABG HCO3 25.8 ABG O2 Sat (Measured) 98.9 ABG O2 Content 9.3 L* ABG Base Excess 2.2 H Junior Test Positive O2 Delivery Device Bipap Oxygen Flow Rate 40% Vent Mode S/t Vent Rate 15 Mechanical Rate Bipap/ 14 ipap/5 epa Sodium Potassium Chloride Carbon Dioxide Anion Gap BUN Creatinine Creat Clearance w eGFR POC Glucometer Random Glucose Calcium Phosphorus Magnesium Urine Eosinophils Hepatitis A Ab Total Hep Bs Antigen Hep Bs Antibody Hep B Core Total Ab Blood Type Antibody Screen Crossmatch Active Medications Generic Name Dose Route Start Last Admin Trade Name Freq PRN Reason Stop Dose Admin Budesonide/Formoterol Fumarate 2 puff 08/11/18 22:00 08/17/18 12:57 Symbicort 160/4.5mcg - IH Not Given BID LISA Nafcillin Sodium 2 gm/ 100 mls @ 100 mls/hr 08/14/18 10:45 08/17/18 12:56 Dextrose IVPB Not Given Q4H-IV [facility] Protocol Insulin Aspart 1 vial 08/11/18 22:00 08/17/18 13:54 Novolog Vial Sliding Scale - SQ Not Given ACHS [facility] Protocol Methylprednisolone Sodium Succinate 20 mg 08/16/18 12:03 08/17/18 13:55 Solu-Medrol - IVPUSH 20 mg DAILY LSIA Administration Metoprolol Tartrate 5 mg 08/14/18 12:17 08/17/18 13:56 Lopressor Injection - IVPUSH 5 mg Q6H LISA Administration Metoprolol Tartrate 5 mg 08/14/18 14:47 Lopressor Injection - IVPUSH Q4H PRN TACHYCARDIA Ondansetron HCl 4 mg 08/11/18 16:43 Zofran Injection IVPUSH Q6H PRN NAUSEA AND/OR VOMITING Pantoprazole Sodium 20 mg 08/12/18 10:00 08/17/18 13:57 Protonix - PO 20 mg DAILY LISA Administration Polyethylene Glycol 17 gm 08/11/18 22:00 08/17/18 12:56 Miralax (For Daily Use) - PO Not Given BID LISA Senna 2 tab 08/11/18 22:00 08/16/18 22:22 Senna - PO 2 tab HS LISA Administration Sodium Chloride 2 spray 08/12/18 13:26 08/12/18 15:14 [place] Hector Nasal Hector - NS 2 spray BID PRN Administration NASAL CONGESTION ASSESSMENT/PLAN: 87 yo female with PMH of a-fib (rate controlled, on eliquis), CHF, COPD (on 2L home o2), HTN, pulmonary HTN, presented to the ED with complaint of SOB with a cough productive of clear sputum for 2 days and admitted for the treatment of CHF exacerbation #Acute hypercapnic hypoxic respiratory distress: resolving, patient had a likely exacerbation 2/2 CHF and COPD Medrol IVPUSH 20 QD per ICU Team -Duonebs scheduled QID; albuterol PRN -Continue pulmicort inhaler -on 2L nasal cannula -continue daily weights -BiPap PRN -Central line inserted today by ICu team Dr Hernández. 08/17/18 #Hematuria: continuing to occur, likely 2/2 trauma vs acute bladder/kidney pathology -H&H 7.4/21.1 today 08/15/18 - CBI Discontinued per Urology. Eliquis resumed. -Bladder/kidney US ordered--> 08/08/18: R [place]. Partially distended urinary bladder that is at least partially filled with debris. Cannot rule out blood clots. Cannot adequately evaluate its posterior wall. Bilateral ureteral jets were not visualized. Further evaluation of the urinary bladder is needed. -KUB no signs of obstructing stones. Urology on board. -08/11/19 S/p Cystourethroscopy, evacuation of clots, fulguration of bleeders placement 3 way 30 ml 24 fr rodriguez with continuos bladder irrigation. -Renal Sonogram 08/15/18: IMPRESSION: Mild to moderate right renal hydronephrosis and dilatation of the proximal right ureter at appears to have slightly worsened since see prior exam. Partially exophytic left renal lower pole cyst measuring 2.7 cm and mild left renal hydronephrosis. - 08/16/18. Contacted I.R. Percutaneous Nephrostomy tube insertion due to persistent unrelenting R hydronephrosis. Dr Watkins on board. S/P B/L percutaneous nephrostomy tube placement. Good urine output. - PT/INR 20.6/1.74 # Anemia -6.6/21.9 08/17/18 Issued 1 u PRBC. Will administer another u PRBC. F/U CBC # RUE Edema Doppler RUE to assess for DVT #SANAM, Hyperkalemia -Renal Dr Del Angel on board - Monitor urine output/Creatinine 08/16/18--> Potassium 6.3, Ca Gluconate ordered per ICU Team. Creatinine 5.3 yesterday 08/16/18 -08/17--Bun/Cr improved. 72/2.8 # WBC >40K----> improved. WBC today 08/17/18--> 13.2 -Nafcillin 2 gm Q4H -Blood Cultures---MS Staph Aureus -Urine Cultures---MS Staph Aureus #Atrial fibrillation: stable -Lopresor IVPUSH -Echo--> EF 60-65%, moderately to severe LA Dilation. -LE Dopplers negative for any DVT May need CEDRIC if persistently bacteremic Dr Hackett on board. Fluids D/C'ed due to fluid overload. #Sarcoidosis: chronic -Already on steroids for above problems, continue steroids. #HLD: stable -Continue Lipitor FEN: NS Monitor electrolytes NPO PPX: DVT - Eliquis 5 mg po daily - Currently on Hold GI - Protonix 20mg qDaily Dispo: ICU Visit type - Emergency Visit Emergency Visit: Yes ED Registration Date: 07/25/18 Care time: The patient presented to the Emergency Department on the above date and was hospitalized for further evaluation of their emergent condition. - New Patient This patient is new to me today: No - Critical Care Critical Care patient: Yes Total Critical Care Time (in minutes): 35 Critical Care Statement: The care of this patient involved high complexity decision making to prevent further life threatening deterioration of the patient 's condition and/or to evaluate & treat vital organ system(s) failure or risk of failure. - Discharge Referral Referred to [facility] Med [facility].: No
[2018-08-17] MEDS: METOPROLOL TARTRATE 5 MG/5 ML VIAL IVPUSH PRN (19:01)
[2018-08-17] MEDS: SENNOSIDES 8.6MG TABLET (FP) PO SCH (21:33)
[2018-08-17 22:31] LABS: HEMATOCRIT 25.4 % (32.4-45.2); HEMOGLOBIN 7.9 GM/dL (10.7-15.3); MCH 22.2 pg (25.7-33.7); MEAN CELL VOLUME 71.6 fl (80-96); MEAN PLT VOLUME 8.7 fl (7.5-11.1); PLATELET COUNT 172 K/MM3 (134-434); RBC 3.55 M/mm3 (3.60-5.2); RDW 23.1 % (11.6-15.6); WHITE BLOOD COUNT 16.6 K/mm3 (4.0-10.0)
[2018-08-18] MEDS: METOPROLOL TARTRATE 5 MG/5 ML VIAL IVPUSH SCH ×2 (01:03→06:05)
[2018-08-18] MEDS: INSULIN SLIDING SCALE (NOVOLOG) 1 VIAL SQ SCH ×5 (01:03→21:19)
[2018-08-18] MEDS: NAFCILLIN - 2 GM in DEXTROSE 5%-WATER - 100 ML IVPB SCH ×6 (01:36→21:14)
[2018-08-18] MEDS ORDERED: HEMOQUE TEST 1 EACH EACH ONE (05:10)
[2018-08-18 05:56] LABS: HEMATOCRIT 24.8 % (32.4-45.2); HEMOGLOBIN 7.7 GM/dL (10.7-15.3); MEAN PLT VOLUME 8.6 fl (7.5-11.1); PLATELET COUNT 157 K/MM3 (134-434); RBC 3.49 M/mm3 (3.60-5.2); RDW 22.3 % (11.6-15.6); WHITE BLOOD COUNT 13.9 K/mm3 (4.0-10.0)
[2018-08-18] MEDS ORDERED: PT OWN MED DRAWER 7, Y5N ONE ×3 (06:02→16:45)
[2018-08-18] MEDS: BUDESONIDE/FORMETEROL FUMARATE 160/4.5 mcg INHALER IH SCH ×3 (06:05→21:15)
[2018-08-18 06:42] LABS: ANION GAP 8 MMOL/L (8-16); BLOOD UREA NITROGEN 48 mg/dL (7-18); CALCIUM 7.7 mg/dL (8.5-10.1); CHLORIDE 103 mmol/L (98-107); CO2 32 mmol/L (21-32); CREATININE 1.1 mg/dL (0.55-1.3); GLUCOSE,RANDOM 140 mg/dL (74-106); MAGNESIUM 2.1 mg/dL (1.8-2.4); PHOSPHOROUS 3.2 mg/dL (2.5-4.9); SODIUM 143 mmol/L (136-145)
[2018-08-18 07:00] LABS: POTASSIUM 2.4 mmol/L (3.5-5.1)
[2018-08-18] MEDS ORDERED: KCL 10 MEQ IVPB 10 MEQ/100 ML INFUS.BAG IVPB SCH (07:00)
[2018-08-18 07:21] LABS: ARTERIAL BLD GAS O2 SATURATION 99.3 % (90-98.9); ARTERIAL BLOOD GAS BASE EXCESS 6.3 meq/l (-2-2); ARTERIAL BLOOD GAS PCO2 46.2 mmHg (35-45); ARTERIAL BLOOD GAS pH 7.44 (7.35-7.45)
[2018-08-18 07:42] LABS: ALLENS TEST POSITIVE
[2018-08-18] MEDS: POTASSIUM CHLORIDE 20 MEQ PREMIX IVPB 100 ML IVPB SCH ×2 (08:06→09:32)
[2018-08-18] MEDS: POTASSIUM CHLORIDE ORAL LIQUID 20 MEQ/15 ML NGT SCH ×2 (09:31→21:13)
[2018-08-18] MEDS: PANTOPRAZOLE 20 MG TABLET (FP) PO SCH (09:31)
[2018-08-18] MEDS: POLYETHYLENE GLYCOL 3350 119 GM BTL PO SCH ×2 (09:31→21:13)
[2018-08-18] MEDS: methylPREDNISolone NA SUCC 40 MG/1 ML VIAL IVPUSH SCH (09:33)
--- NOTE | 2018-08-18 11:50 | PN ---
Teaching Attending Note Name of Resident: Marco A Colon ATTENDING PHYSICIAN STATEMENT I saw and evaluated the patient. I reviewed the resident's note and discussed the case with the resident. I agree with the resident's findings and plan as documented. SUBJECTIVE:lethargic. opens eyes to verbal stimuli. does not follow commands OBJECTIVE: Last Vital Signs Temp Pulse Resp BP Pulse Ox 98.6 F 114 H 19 123/77 91 L 08/18/18 10:00 08/18/18 10:00 08/18/18 10:00 08/18/18 10:00 08/17/18 23:18 Intake & Output 08/15/18 08/16/18 08/17/18 08/18/18 23:59 23:59 23:59 23:59 Intake Total 2460 1500 1964 425 Output Total 0 1050 2800 575 Balance 2460 450 -836 -150 Weight 164 lb 3.91 oz General lethargic, withdraws to pain CV S1 S2 tachy irregular Lungs decreased breath sounds anteriorly. no wheezing, poor inspiratory effort Abdomen soft +suprapubic tenderness no distention. BS + Extremities RUE is has diffuse swelling. no tenderness noted. no phlebitis seen. trace pedal edema ASSESSMENT AND PLAN: 81 yo F with PMhx of sarcoidosis diagnosed in 1985, Chronic diastolic HF, severe pulmonary HTN, COPD on 2L home oxygen, AFib on eliquis, HTN, HLD, frequent admissions with CHF/respiratory distress admitted with acute hypercapneic/hypoxic respiratory failure, CHF exaerbation. Course complicated by development of hematuria. Cystoscopy was done where pt developed hypotension requiring pressors and was placed iN ICU. 1. Acute hypercapneic/hypoxic respiratory failure-due to CHF and COPD exacerbation. on bipap overnight. medrol 20mg daily. chest pt, Nebs and inhalers. pulmonary and cardio on board 2. Acute diastolic heart failure exacerbation-appears volume overloaded but improved. will cont to hold lasix but will consider starting as renal fucntion improves as having large UOP into nephrostomy tubes. Monitor electrolytes, daily weights, cardio on board 3. Hemorrhagic cystitis- continues to have scant hematuria. no UOP in rodriguez at this time. monitor output 4. Acute Blood loss anemia- due to hemorrhagic cystitis with sangenous drainage from nephrostomy tubes. total of 2 units PRBC this hospital stay. transfuse as needed 5. Hypokalemia- replete. repeat later today 6. RUE swelling- possible is infiltration from IV line. no signs of infection. doppler neg for DVT. elevate extremity. 7. Hypoglycemia- due to poor oral intake. now improved. BGM monitoring to prevent hypoglycemia 8. Acute metabolic toxic encephalopathy- becoming more lethargic. could possible be from hypoglycemia vs uremia vs infection. as per RN was more alert earlier today. will monitor closely. moves all 4 extremities. frequent neurochecks. 9. SANAM- due to hypoperfusion. s/p B/L nephrostomy tubes 08/16 with good UOP. monitor for post-obstructive diuresis. renal on board. avoid nephrotoxic agents. no eosinophilia 10. Tropinemia- TNI peaked at 2. likely due to hypoperfusion from procedure. no indication for workup at this time. medical management 11. afib- improved. cont to titrate metoprolol IV as tolerated. refusing oral meds. holding eliquis. cardio on board. 12. MSSA Bacteremia-with urine also showing MSSA. echo negative for endocarditis. on nafcillin day 5. repeat Cx NGTD. ID on board 13. Severe pulmonary HTN 14. Cor Pulmonale 15. Sarcoidosis 16. COPD on 2L home oxygen 17. HTN- currently hypotensive. hold antihypertensive agents 18. dyslipidemia 19. DVT ppx- SCD 20. MICU monitoring. The care of this patient involved high complexity decision making to prevent further life threatening deterioration of the patient's condition and/or to evaluate & treat vital organ system(s) failure or risk of failure. 40 mins
--- NOTE | 2018-08-18 12:02 | PN ---
Progress Note (short form) - Note Progress Note: Chief Complaint: resp failure, hypotension History of Present Illness: lethargic, not answering questions. appears comfortable. no overnight events Current Medications Generic Name Dose Route Start Last Admin Trade Name Freq PRN Reason Stop Dose Admin Budesonide/Formoterol Fumarate 2 puff 08/11/18 22:00 08/18/18 09:32 Symbicort 160/4.5mcg - IH Not Given BID LISA Nafcillin Sodium 2 gm/ 100 mls @ 100 mls/hr 08/14/18 10:45 08/18/18 09:31 Dextrose IVPB 100 mls/hr Q4H-IV LISA Administration Protocol Insulin Aspart 1 vial 08/11/18 22:00 08/18/18 06:06 Novolog Vial Sliding Scale - SQ Not Given ACHS LISA Protocol Methylprednisolone Sodium Succinate 20 mg 08/16/18 12:03 08/18/18 09:33 Solu-Medrol - IVPUSH 20 mg DAILY LISA Administration Metoprolol Tartrate 5 mg 08/14/18 14:47 08/17/18 19:01 Lopressor Injection - IVPUSH 5 mg Q4H PRN Administration TACHYCARDIA Metoprolol Tartrate 25 mg 08/18/18 14:00 Lopressor - NGT TID LISA Ondansetron HCl 4 mg 08/11/18 16:43 Zofran Injection IVPUSH Q6H PRN NAUSEA AND/OR VOMITING Pantoprazole Sodium 20 mg 08/12/18 10:00 08/18/18 09:31 Protonix - PO 20 mg DAILY LISA Administration Polyethylene Glycol 17 gm 08/11/18 22:00 08/18/18 09:31 Miralax (For Daily Use) - PO Not Given BID LISA Potassium Chloride 40 meq 08/18/18 10:00 08/18/18 09:31 Potassium Chloride Oral Liquid NGT 08/18/18 22:01 40 meq BID LISA Administration Senna 2 tab 08/11/18 22:00 08/17/18 21:33 Senna - PO Not Given HS LISA Sodium Chloride 2 spray 08/12/18 13:26 08/12/18 15:14 [place] Nasal [place] - NS 2 spray BID PRN Administration NASAL CONGESTION - Objective Vital Signs: Vital Signs Temp 98.6 F 08/18/18 10:00 Pulse 114 H 08/18/18 10:00 Resp 19 11/02/18 10:00 BP 123/77 08/18/18 10:00 Pulse Ox 91 L 08/17/18 23:18 Intake & Output 08/17/18 08/18/18 08/18/18 23:59 11:59 23:59 Intake Total 1204 425 Output Total 850 575 Balance 354 -150 Weight 164 lb 3.91 oz Intake: IVPB 364 200 Tube Feeding 440 175 Packed Cells 350 Tube Irrigant 50 50 Output: Urine 850 575 [place] 75 Left Nephrostomy 425 300 Right Nephrostomy 425 200 Other: Voiding Method Indwelling Catheter Bowel Movement Yes Yes # Bowel Movements 2 Weight Measurement Method Built in [facility] Constitutional: Yes: Well Nourished, No Distress, Calm Cardiovascular: Yes: Pulse Irregular, +JVD, S1, S2. No: Gallop, Murmur Respiratory: Yes: Regular, + rales (anteriorly). No: Accessory Muscle Use Extremities: No: Cold Edema: No Neurological: Yes: Lethargy. No: Seizure Psychiatric: No: Agitated abd nd pos bs no jaundice diaphoresis Laboratory Last Values WBC 13.9 K/mm3 (4.0-10.0) H 08/18/18 05:30 RBC 3.49 M/mm3 (3.60-5.2) L 08/18/18 05:30 Hgb 7.7 GM/dL (10.7-15.3) L 08/18/18 05:30 Hct 24.8 % (32.4-45.2) L 08/18/18 05:30 MCV 71.0 fl (80-96) L 08/18/18 05:30 MCH 22.0 pg (25.7-33.7) L 08/18/18 05:30 MCHC 31.0 g/dl (32.0-36.0) L 08/18/18 05:30 RDW 22.3 % (11.6-15.6) H 08/18/18 05:30 Plt Count 157 K/MM3 (134-434) 08/18/18 05:30 MPV 8.6 fl (7.5-11.1) 08/18/18 05:30 Absolute Neuts (auto) 34.4 K/mm3 (1.5-8.0) H 08/14/18 05:30 Total Counted 100 08/11/18 19:30 Neutrophils % 94.4 % (42.8-82.8) H 08/14/18 05:30 Neutrophils % (Manual) 89.9 % (42.8-82.8) H 08/14/18 05:30 Band Neutrophils % 2.0 % 08/14/18 05:30 Lymphocytes % 1.4 % (8-40) L D 08/14/18 05:30 Lymphocytes % (Manual) 3.0 % (8-40) L D 08/14/18 05:30 Monocytes % 4.1 % (3.8-10.2) 08/14/18 05:30 Monocytes % (Manual) 5 % (3.8-10.2) D 08/14/18 05:30 Eosinophils % 0.0 % (0-4.5) 08/14/18 05:30 Eosinophils % (Manual) 0.0 % (0-4.5) 08/14/18 05:30 Basophils % 0.1 % (0-2.0) 08/14/18 05:30 Basophils % (Manual) 0.0 % (0-2.0) 08/14/18 05:30 Myelocytes % (Man) 0 % (0-2) 08/14/18 05:30 Promyelocytes % (Man) 0 % (0-2) 08/14/18 05:30 Blast Cells % (Manual) 0 % (0-0) 08/14/18 05:30 Nucleated RBC % 0 % (0-0) 08/14/18 05:30 Metamyelocytes 0 % (0-2) 08/14/18 05:30 Hypochromia 0 08/14/18 05:30 Toxic Granulation 1+ 08/14/18 05:30 Platelet Estimate Normal 08/14/18 05:30 Platelet Comment Present 08/12/18 05:30 Polychromasia 1+ 08/14/18 05:30 Poikilocytosis 1+ 08/14/18 05:30 Anisocytosis 2+ 08/14/18 05:30 Microcytosis 1+ 08/14/18 05:30 Macrocytosis 1+ 08/14/18 05:30 Spherocytes 1+ 08/14/18 05:30 Target Cells 2+ 08/12/18 05:30 Tear Drop Cells 1+ 08/14/18 05:30 Ovalocytes 1+ 08/14/18 05:30 Acanthocytes (Spur) 1+ 08/14/18 05:30 Fragmented RBCs 2+ 08/12/18 05:30 PT with INR 20.60 SEC (9.7-13.0) H 08/16/18 09:25 INR 1.74 (0.83-1.09) H 08/16/18 09:25 Anticoagulation Therapy No Result Required. 08/18/18 06:30 Puncture Site Right radial 08/18/18 06:30 ABG pH 7.44 (7.35-7.45) 08/18/18 06:30 ABG pCO2 at Pt Temp 46.2 mmHg (35-45) H D 08/18/18 06:30 ABG pO2 at Pt Temp 149.0 mmHg (68-100) H 08/18/18 06:30 ABG HCO3 30.9 meq/L (22-26) H 08/18/18 06:30 ABG O2 Sat (Measured) 99.3 % (90-98.9) H 08/18/18 06:30 ABG O2 Content 17.0 % vol (15-22) 08/18/18 06:30 ABG Base Excess 6.3 meq/l (-2-2) H 08/18/18 06:30 Junior Test Positive 08/18/18 06:30 VBG pH 7.26 (7.32-7.42) L 07/25/18 15:10 POC VBG pCO2 81.5 mmHg (38-52) H* D 07/25/18 15:10 POC VBG pO2 27.4 mmHg (28-48) L D 07/25/18 15:10 Mixed VBG HCO3 35.2 meq/L (19-25) H 07/25/18 15:10 O2 Delivery Device Bipap 08/18/18 06:30 Oxygen Flow Rate 40 08/18/18 06:30 Vent Mode No Result Required. 08/18/18 06:30 Vent Rate 40 08/18/18 06:30 Mechanical Rate No Result Required. 08/18/18 06:30 PEEP 0.0 cmH2O 07/27/18 08:43 Pressure Support Vent No Result Required. 08/18/18 06:30 Sodium 143 mmol/L (136-145) 08/18/18 05:30 Potassium 2.4 mmol/L (3.5-5.1) L* 08/18/18 05:30 Chloride 103 mmol/L (98-107) 08/18/18 05:30 Carbon Dioxide 32 mmol/L (21-32) 08/18/18 05:30 Anion Gap 8 MMOL/L (8-16) 08/18/18 05:30 BUN 48 mg/dL (7-18) H 08/18/18 05:30 Creatinine 1.1 mg/dL (0.55-1.3) 08/18/18 05:30 Creat Clearance w eGFR 46.88 (>60) 08/18/18 05:30 POC Glucometer 164.47781 UNITS (80-120) 08/18/18 05:13 Random Glucose 140 mg/dL (74-106) H 08/18/18 05:30 Hemoglobin A1c % 7.7 % (4.2-6.3) H 08/11/18 06:00 Lactic Acid 1.6 mmol/L (0.4-2.0) 08/13/18 18:30 Calcium 7.7 mg/dL (8.5-10.1) L 08/18/18 05:30 Phosphorus 3.2 mg/dL (2.5-4.9) 08/18/18 05:30 Magnesium 2.1 mg/dL (1.8-2.4) 08/18/18 05:30 Total Bilirubin 0.8 mg/dL (0.2-1) 08/14/18 05:30 AST 23 U/L (15-37) 08/14/18 05:30 ALT 15 U/L (13-61) 08/14/18 05:30 Alkaline Phosphatase 73 U/L (45-117) 08/14/18 05:30 Creatine Kinase 71 IU/L (26-192) 07/29/18 14:40 Troponin I 0.28 ng/ml (0.00-0.05) H 08/13/18 21:00 B-Natriuretic Peptide 7963.3 pg/ml (5-450) H 07/25/18 14:44 Total Protein 5.7 g/dl (6.4-8.2) L 08/14/18 05:30 Total Protein (PEP) 4.7 g/dL (6.0-8.5) L 08/16/18 05:30 Albumin 2.0 g/dl (3.4-5.0) L 08/14/18 05:30 Albumin (PEP) 2.0 gm/dl (2.9-4.4) L 08/16/18 05:30 Globulin 2.7 g/dL (2.2-3.9) 08/16/18 05:30 Albumin/Globulin Ratio 0.7 (0.7-1.7) 08/16/18 05:30 Beta Globulins 0.7 gm/dL (0.7-1.3) 08/16/18 05:30 Lipase 87 U/L (73-393) 08/14/18 05:30 Urine Color Ltyellow 08/11/18 20:30 Urine Appearance Slcloudy 08/11/18 20:30 Urine pH 5.0 (5.0-8.0) 08/11/18 20:30 Ur Specific [place] 1.004 (1.010-1.035) L 08/11/18 20:30 Urine Protein Negative (NEGATIVE) 08/11/18 20:30 Urine Glucose (UA) Negative (NEGATIVE) 08/11/18 20:30 Urine Ketones Negative (NEGATIVE) 08/11/18 20:30 Urine Blood 3+ (NEGATIVE) H 08/11/18 20:30 Urine Nitrite Negative (NEGATIVE) 08/11/18 20:30 Urine Bilirubin Negative (<2.0 mg/dL) 08/11/18 20:30 Urine Urobilinogen Negative mg/dL (0.2-1.0) 08/11/18 20:30 Ur Leukocyte Esterase Trace (NEGATIVE) 08/11/18 20:30 Urine WBC (Auto) 69 /hpf (3-5) 08/11/18 20:30 Urine RBC (Auto) 148 /hpf (0-3) 08/11/18 20:30 Ur Epithelial Cells Few /HPF (FEW) 08/05/18 12:00 Urine Bacteria Rare /hpf (NONE SEEN) 08/11/18 20:30 Urine Eosinophils None seen % (.) 08/14/18 19:30 Ur Random Sodium 158 MMOL/L (40-220) 08/14/18 19:30 Ur Random Potassium < 9.0 MMOL/L (25-125) L 08/14/18 19:30 Ur Random Chloride 163 MMOL/L (110-250) 08/14/18 19:30 Urine Creatinine < 13.0 mg/dL (30-50) L 08/14/18 19:30 Random Vancomycin 22.6 ug/ml (18-26) 08/14/18 05:30 CONCHA M-Dinesh Not observed g/dL (Not Observed) 08/16/18 05:30 NATY Screen Negative (.) 08/16/18 05:30 Hepatitis A Ab Total Negative (Negative) 08/16/18 05:30 Hep Bs Antigen Negative (Negative) 08/16/18 05:30 Hep Bs Antibody Non reactive (.) 08/16/18 05:30 Hep B Core Total Ab Negative (Negative) 08/16/18 05:30 Blood Type B POSITIVE 08/15/18 05:30 Antibody Screen Negative 08/15/18 05:30 Crossmatch See Detail 08/15/18 05:30 CXR: improved aeration Echo 05/03: nl LVEF. mild RVE, mild-mod RV hypo. L/NEENA. mod MR/TR. RVSP at least 88 mmHg Echo 03/2017: Mild conc lvh. nl lv/rv size/fn, mod ronnie, mod mr, mod tr, rvsp 40- 50 EKG: afib with PVCs tele: afib, vr low 100s est cct 35 mins Assessment/Plan hypotension, NSTEMI, staph bacteremia: -periop hypotension 08/11 during cysto, briefly on pressors. 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 ECG 08/[address]ressions inferior leads, improved on 08/12 tracing--cannot exclude Type I ME at time of events. -AC initially held for gross hematuria with large clots/hydronephrosis, was back on eliquis and now stopped again due to hematuria. defer aspirin -BB and afib HR control as doing, hemodynamically stable - IV metoprolol as not taking PO consistently -consider risk stratification MPI once clinically stable (if will change med mgmt approach) -defer invasive CAD mgmt approach given Type II ME > Type I here, plus pt's poor functional status with competing mortality limitations from severe lung dz , low likelihood to improve prognosis, and risks > benefits (including bleeding , AIN) SANAM: -s/p b/l perc nephrostomy, cr improved now -renal ultrasound shows raad hydronephrosis, urology following -holding lasix -renal following afib: -hr slightly fast at times, agree with lopressor tid, cont tele -defer CCB given concern about RV contractility depression (cor pulm pt) -eliquis stopped again due to hematuria acute resp failure with wheezing, acute exacerbation of copd/pulm sarcoid, acute diast CHF, cor pulmonale with RV failure -being tx'd with BDs, steroids O2 per pulm -CXR clear, BNP >7000, required bipap for increased work of breathing -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 initially 158 here. -cont lasix iv 80 bid -07/29: Creat 0.6 and weight down to 162, continue current lasix regimen -07/30: Creat 0.8, K 3.4, Wt 161. Continue current lasix regimen, replete K -07/31: 161 lbs. -08/01: wt 160 lbs, cont same -08/02-: appears euvolemic. was on lasix 40 qd at home. transitioned 80 iv bid to 80 qd -08/06: iv steroids continue and now dose increased. wt up a bit as well, restarted lasix 80 mg IV BID - 08/07-: weight continues to decrease, sob improving, Cr stable, still on IV steroids. Continue lasix 80 mg IV BID while on IV steroids. plan change to po lasix 80 daily when on po steroids. - 08/12: hypotensive during cystoscopy, looks dry clinically. SANAM this am. lasix on hold, gentle IVF--observe chf status closely - 08/13: lactic acidosis, + staph in BCx's the past 2 days, organism awaiting ID. renal fxn worsening significantly--incr IVF rate (125 cc/hr) - 08/14: remains non-edematous. CXR improved. renal fxn worsening rapidly. cont IVF - 08/15: Cr continues to rise, appears euvolemic. cont IVF, poor PO intake - 08/16:renal function continues to decline, appears overloaded. IVF rate cut back, dc IV fluids for now -08/17-2: s/p b/l perc nephrostomy, cr improved today. cont to hold ivfs and lasix. HTN: -bp controlled -cont current meds hematuria, obstruction with hydro: - cysto showed hemorrhagic cystitis with large amount of clot which was evacuated - CBI dc'ed per urology, reportedly hematuria again. stopped eliquis
--- NOTE | 2018-08-18 12:10 | PN ---
Teaching Attending Note Name of Resident: Jacqueline Bains ATTENDING PHYSICIAN STATEMENT I saw and evaluated the patient. I reviewed the resident's note and discussed the case with the resident. I agree with the resident's findings and plan as documented. SUBJECTIVE: Patient seen and examined in the ICU. Remains lethargic but renal function improving. Clinically appears worse today. HR 130's. Adequate output from nephrostomy tubes but right is very bloody. OBJECTIVE: Intake & Output 08/15/18 08/16/18 08/17/18 08/18/18 23:59 23:59 23:59 23:59 Intake Total 2460 1500 1964 425 Output Total 0 1050 2800 575 Balance 2460 450 -836 -150 Weight 164 lb 3.91 oz Last Vital Signs Temp Pulse Resp BP Pulse Ox 98.6 F 114 H 19 123/77 91 L 08/18/18 10:00 08/18/18 10:00 08/18/18 10:00 08/18/18 10:00 08/17/18 23:18 Active Medications Budesonide/Formoterol Fumarate (Symbicort 160/4.5mcg -) 2 puff IH BID [facility] Last Admin: 08/18/18 09:32 Dose: Not Given Nafcillin Sodium 2 gm/ (Dextrose) 100 mls @ 100 mls/hr IVPB Q4H-IV LISA; Protocol Last Admin: 08/18/18 09:31 Dose: 100 mls/hr Insulin Aspart (Novolog Vial Sliding Scale -) 1 vial SQ ACHS LISA; Protocol Last Admin: 08/18/18 06:06 Dose: Not Given Methylprednisolone Sodium Succinate (Solu-Medrol -) 20 mg IVPUSH DAILY [facility] Last Admin: 08/18/18 09:33 Dose: 20 mg Metoprolol Tartrate (Lopressor Injection -) 5 mg IVPUSH Q4H PRN PRN Reason: TACHYCARDIA Last Admin: 08/17/18 19:01 Dose: 5 mg Metoprolol Tartrate (Lopressor -) 25 mg NGT TID [facility] Ondansetron HCl (Zofran Injection) 4 mg IVPUSH Q6H PRN PRN Reason: NAUSEA AND/OR VOMITING Pantoprazole Sodium (Protonix -) 20 mg PO DAILY [facility] Last Admin: 08/18/18 09:31 Dose: 20 mg Polyethylene Glycol (Miralax (For Daily Use) -) 17 gm PO BID LISA Last Admin: 08/18/18 09:31 Dose: Not Given Potassium Chloride (Potassium Chloride Oral Liquid) 40 meq NGT BID LISA Stop: 08/18/18 22:01 Last Admin: 08/18/18 09:31 Dose: 40 meq Senna (Senna -) 2 tab PO HS LISA Last Admin: 08/17/18 21:33 Dose: Not Given Sodium Chloride ([place] Nasal [place] -) 2 spray NS BID PRN PRN Reason: NASAL CONGESTION Last Admin: 08/12/18 15:14 Dose: 2 spray Gen: lethargic, tachypneic Heart: tachycardic, irregular Lung: scattered rhonchi Abd: soft, nontender Ext: no edema Laboratory Results - last 24 hr 08/15/18 08/16/18 08/17/18 05:30 05:30 17:33 WBC RBC Hgb Hct MCV MCH MCHC RDW Plt Count MPV Anticoagulation Therapy Puncture Site ABG pH ABG pCO2 at Pt Temp ABG pO2 at Pt Temp ABG HCO3 ABG O2 Sat (Measured) ABG O2 Content ABG Base Excess Junior Test O2 Delivery Device Oxygen Flow Rate Vent Mode Vent Rate Mechanical Rate Pressure Support Vent Sodium Potassium Chloride Carbon Dioxide Anion Gap BUN Creatinine Creat Clearance w eGFR POC Glucometer [phone] Random Glucose Calcium Phosphorus Magnesium Total Protein (PEP) 4.7 L Albumin (PEP) 2.0 L Globulin 2.7 Albumin/Globulin Ratio 0.7 Beta Globulins 0.7 OCNCHA M-Dinesh Not observed NATY Screen Negative Blood Type B POSITIVE Antibody Screen Negative Crossmatch See Detail 08/17/18 08/17/18 08/18/18 22:00 23:31 05:13 WBC 16.6 H RBC 3.55 L Hgb 7.9 L Hct 25.4 L D MCV 71.6 L MCH 22.2 L MCHC 31.0 L RDW 23.1 H Plt Count 172 MPV 8.7 Anticoagulation Therapy Puncture Site ABG pH ABG pCO2 at Pt Temp ABG pO2 at Pt Temp ABG HCO3 ABG O2 Sat (Measured) ABG O2 Content ABG Base Excess [place] Test O2 Delivery Device Oxygen Flow Rate Vent Mode Vent Rate Mechanical Rate Pressure Support Vent Sodium Potassium Chloride Carbon Dioxide Anion Gap BUN Creatinine Creat Clearance w eGFR POC Glucometer [phone] Random Glucose Calcium Phosphorus Magnesium Total Protein (PEP) Albumin (PEP) Globulin Albumin/Globulin Ratio Beta Globulins CONCHA M-Dinesh NATY Screen Blood Type Antibody Screen Crossmatch 08/18/18 08/18/18 08/18/18 05:30 05:30 06:30 WBC 13.9 H RBC 3.49 L Hgb 7.7 L Hct 24.8 L MCV 71.0 L MCH 22.0 L MCHC 31.0 L RDW 22.3 H Plt Count 157 MPV 8.6 Anticoagulation Therapy No Result Required. Puncture Site Right radial ABG pH 7.44 ABG pCO2 at Pt Temp 46.2 H D ABG pO2 at Pt Temp 149.0 H ABG HCO3 30.9 H ABG O2 Sat (Measured) 99.3 H ABG O2 Content 17.0 ABG Base Excess 6.3 H Junior Test Positive O2 Delivery Device Bipap Oxygen Flow Rate 40 Vent Mode No Result Required. Vent Rate 40 Mechanical Rate No Result Required. Pressure Support Vent No Result Required. Sodium 143 Potassium 2.4 L* Chloride 103 Carbon Dioxide 32 Anion Gap 8 BUN 48 H Creatinine 1.1 Creat Clearance w eGFR 46.88 POC Glucometer Random Glucose 140 H Calcium 7.7 L Phosphorus 3.2 Magnesium 2.1 Total Protein (PEP) Albumin (PEP) Globulin Albumin/Globulin Ratio Beta Globulins CONCHA M-Dinesh NATY Screen Blood Type Antibody Screen Crossmatch ASSESSMENT AND PLAN: Acute on Chronic Hypoxic and Hypercapneic Respiratory Failure Acute on Chronic Diastolic Heart Failure Acute COPD Exacerbation Sarcoidosis Severe Pulmonary HTN Atrial Fibrillation HTN Hyperlipidemia Hematuria s/p Cystoscopy MSSA Bacteremia Sepsis Acute Kidney Injury Right Hydronephrosis s/p nephrostomy placement - antibiotics per ID - taper medrol - inhaled bronchodilators - O2 to keep SpO2>90% - monitor urine output, creatinine - rate control - holding anticoagulation - Normal transfusion thresholds - Start BB via NGT - continue ICU monitoring for tenuous overall status - prognosis guarded, palliative care f/u for further goal of breathing Dr Salinas Critical care time spent in reviewing chart, evaluating patient and formulating plan 35 min
[2018-08-18] MEDS: METOPROLOL TARTRATE 25 MG TABLET (FP) NGT SCH ×2 (13:00→21:13)
--- NOTE | 2018-08-18 13:05 | PN ---
Progress Note, Physician History of Present Illness: Pt seen and examined at bedside. She is lethargic. Pt is making urine. - Current Medication List Current Medications: Active Medications Budesonide/Formoterol Fumarate (Symbicort 160/4.5mcg -) 2 puff IH BID [facility] Last Admin: 08/18/18 09:32 Dose: Not Given Nafcillin Sodium 2 gm/ (Dextrose) 100 mls @ 100 mls/hr IVPB Q4H-IV LISA; Protocol Last Admin: 08/18/18 13:00 Dose: 100 mls/hr Insulin Aspart (Novolog Vial Sliding Scale -) 1 vial SQ ACHS LISA; Protocol Last Admin: 08/18/18 12:52 Dose: 2 units Methylprednisolone Sodium Succinate (Solu-Medrol -) 20 mg IVPUSH DAILY [facility] Last Admin: 08/18/18 09:33 Dose: 20 mg Metoprolol Tartrate (Lopressor Injection -) 5 mg IVPUSH Q4H PRN PRN Reason: TACHYCARDIA Last Admin: 08/17/18 19:01 Dose: 5 mg Metoprolol Tartrate (Lopressor -) 25 mg NGT TID [facility] Last Admin: 08/18/18 13:00 Dose: 25 mg Ondansetron HCl (Zofran Injection) 4 mg IVPUSH Q6H PRN PRN Reason: NAUSEA AND/OR VOMITING Pantoprazole Sodium (Protonix -) 20 mg PO DAILY [facility] Last Admin: 08/18/18 09:31 Dose: 20 mg Polyethylene Glycol (Miralax (For Daily Use) -) 17 gm PO BID [facility] Last Admin: 08/18/18 09:31 Dose: Not Given Potassium Chloride (Potassium Chloride Oral Liquid) 40 meq NGT BID [facility] Stop: 08/18/18 22:01 Last Admin: 08/18/18 09:31 Dose: 40 meq Senna (Senna -) 2 tab PO HS [facility] Last Admin: 08/17/18 21:33 Dose: Not Given Sodium Chloride ([place] Nasal [place] -) 2 spray NS BID PRN PRN Reason: NASAL CONGESTION Last Admin: 08/12/18 15:14 Dose: 2 spray - Objective Vital Signs: Vital Signs Temperature 98.6 F 08/18/18 10:00 Pulse Rate 129 H 08/18/18 12:00 Respiratory Rate 18 08/18/18 12:00 Blood Pressure 100/55 L 08/18/18 12:00 O2 Sat by Pulse Oximetry (%) 91 L 08/17/18 23:18 Constitutional: Yes: Calm Eyes: Yes: Conjunctiva Clear HENT: Yes: Atraumatic Cardiovascular: Yes: S1, S2 Respiratory: Yes: On Nasal O2 Gastrointestinal: Yes: Soft Genitourinary: Yes: Other (bilateral nephrostomy tubes) Musculoskeletal: Yes: Muscle Weakness Edema: No Neurological: Yes: Lethargy Labs: CBC, BMP 08/18/18 05:30 08/18/18 05:30 INR, PTT INR 1.74 (0.83-1.09) H 08/16/18 09:25 Problem List - Problems (1) SANAM (acute kidney injury) Code(s): N17.9 - ACUTE KIDNEY FAILURE, UNSPECIFIED (2) CHF (congestive heart failure) Code(s): I50.9 - HEART FAILURE, UNSPECIFIED (3) Abdominal pain Code(s): R10.9 - UNSPECIFIED ABDOMINAL PAIN (4) Atrial fibrillation Code(s): I48.91 - UNSPECIFIED ATRIAL FIBRILLATION Qualifiers: Atrial fibrillation type: permanent Qualified Code(s): I48.2 - Chronic atrial fibrillation Assessment/Plan Current Medications Generic Name Dose Route Start Last Admin Trade Name Freq PRN Reason Stop Dose Admin Budesonide/Formoterol Fumarate 2 puff 08/11/18 22:00 08/18/18 09:32 Symbicort 160/4.5mcg - IH Not Given BID LISA Nafcillin Sodium 2 gm/ 100 mls @ 100 mls/hr 08/14/18 10:45 08/18/18 13:00 Dextrose IVPB 100 mls/hr Q4H-IV LISA Administration Protocol Insulin Aspart 1 vial 08/11/18 22:00 08/18/18 12:52 Novolog Vial Sliding Scale - SQ 2 units ACHS LISA Administration Protocol Methylprednisolone Sodium Succinate 20 mg 08/16/18 12:03 08/18/18 09:33 Solu-Medrol - IVPUSH 20 mg DAILY LISA Administration Metoprolol Tartrate 5 mg 08/14/18 14:47 08/17/18 19:01 Lopressor Injection - IVPUSH 5 mg Q4H PRN Administration TACHYCARDIA Metoprolol Tartrate 25 mg 08/18/18 14:00 08/18/18 13:00 Lopressor - NGT 25 mg TID LISA Administration Ondansetron HCl 4 mg 08/11/18 16:43 Zofran Injection IVPUSH Q6H PRN NAUSEA AND/OR VOMITING Pantoprazole Sodium 20 mg 08/12/18 10:00 08/18/18 09:31 Protonix - PO 20 mg DAILY LISA Administration Polyethylene Glycol 17 gm 08/11/18 22:00 08/18/18 09:31 Miralax (For Daily Use) - PO Not Given BID LISA Potassium Chloride 40 meq 08/18/18 10:00 08/18/18 09:31 Potassium Chloride Oral Liquid NGT 08/18/18 22:01 40 meq BID LISA Administration Senna 2 tab 08/11/18 22:00 08/17/18 21:33 Senna - PO Not Given HS LISA Sodium Chloride 2 spray 08/12/18 13:26 08/12/18 15:14 [place] Nasal [place] - NS 2 spray BID PRN Administration NASAL CONGESTION Impression 1. SANAM 2. hypotension 3. pulm HTN 4. CHF 5. hematuria 6. sarcoid 7. COPD 8. a-fib 9. hx of HTN 10. hyperlipidemia 11. hyperkalemia resolved 12. mild hydro on ultrasound 13. hypokalemia Plan - replace potassium - check mag level and repeat potassium - renal function is improving - SANAM likely largely from obstructive disease - monitor nephrostomy tube output - will follow Dr Del Angel
--- NOTE | 2018-08-18 13:17 | PN ---
Physical Exam: SUBJECTIVE: Patient seen and examined at bedside. Patient remains lethargic. Bipap overnight. B/l nephrostomy and rodriguez output still bloody. Goals of care discussed with jeffery and Virginia. DNR/DNI signed by Demond gil. Virginia will confirm decision with granddaughter Trudi. I/O:[id number]; L nephrostomy tube 300cc, R nephrostomy tube 200cc, and rodriguez 75 . OBJECTIVE: Vital Signs Period Temp Pulse Resp BP Sys/Garza Pulse Ox Last 24 Hr 98.4 F-99.1 F 100-132 14-20 99-123/47-77 91-92 GENERAL: The patient is lethargic, on 3L NC. NECK: Trachea midline, full range of motion, supple. Right IJ line placed. LUNGS: +scattered rhonchi bilaterally HEART: Regular rate and rhythm, S1, S2 without murmur, rub or gallop. ABDOMEN: Soft, +mild tenderness, nondistended, normoactive bowel sounds. EXTREMITIES: 2+ pulses, warm, well-perfused, no edema. SKIN: Warm, dry, normal turgor. Laboratory Results - last 24 hr 08/15/18 08/16/18 08/17/18 05:30 05:30 17:33 WBC RBC Hgb Hct MCV MCH MCHC RDW Plt Count MPV Anticoagulation Therapy Puncture Site ABG pH ABG pCO2 at Pt Temp ABG pO2 at Pt Temp ABG HCO3 ABG O2 Sat (Measured) ABG O2 Content ABG Base Excess Junior Test O2 Delivery Device Oxygen Flow Rate Vent Mode Vent Rate Mechanical Rate Pressure Support Vent Sodium Potassium Chloride Carbon Dioxide Anion Gap BUN Creatinine Creat Clearance w eGFR POC Glucometer [phone] Random Glucose Calcium Phosphorus Magnesium Total Protein (PEP) 4.7 L Albumin (PEP) 2.0 L Globulin 2.7 Albumin/Globulin Ratio 0.7 Beta Globulins 0.7 CONCHA M-Dinesh Not observed NATY Screen Negative Blood Type B POSITIVE Antibody Screen Negative Crossmatch See Detail 08/17/18 08/17/18 08/18/18 22:00 23:31 05:13 WBC 16.6 H RBC 3.55 L Hgb 7.9 L Hct 25.4 L D MCV 71.6 L MCH 22.2 L MCHC 31.0 L RDW 23.1 H Plt Count 172 MPV 8.7 Anticoagulation Therapy Puncture Site ABG pH ABG pCO2 at Pt Temp ABG pO2 at Pt Temp ABG HCO3 ABG O2 Sat (Measured) ABG O2 Content ABG Base Excess Junior Test O2 Delivery Device Oxygen Flow Rate Vent Mode Vent Rate Mechanical Rate Pressure Support Vent Sodium Potassium Chloride Carbon Dioxide Anion Gap BUN Creatinine Creat Clearance w eGFR POC Glucometer 150.68503 164.63323 Random Glucose Calcium Phosphorus Magnesium Total Protein (PEP) Albumin (PEP) Globulin Albumin/Globulin Ratio Beta Globulins CONCHA M-Dinesh NATY Screen Blood Type Antibody Screen Crossmatch 08/18/18 08/18/18 08/18/18 05:30 05:30 06:30 WBC 13.9 H RBC 3.49 L Hgb 7.7 L Hct 24.8 L MCV 71.0 L MCH 22.0 L MCHC 31.0 L RDW 22.3 H Plt Count 157 MPV 8.6 Anticoagulation Therapy No Result Required. Puncture Site Right radial ABG pH 7.44 ABG pCO2 at Pt Temp 46.2 H D ABG pO2 at Pt Temp 149.0 H ABG HCO3 30.9 H ABG O2 Sat (Measured) 99.3 H ABG O2 Content 17.0 ABG Base Excess 6.3 H Junior Test Positive O2 Delivery Device Bipap Oxygen Flow Rate 40 Vent Mode No Result Required. Vent Rate 40 Mechanical Rate No Result Required. Pressure Support Vent No Result Required. Sodium 143 Potassium 2.4 L* Chloride 103 Carbon Dioxide 32 Anion Gap 8 BUN 48 H Creatinine 1.1 Creat Clearance w eGFR 46.88 POC Glucometer Random Glucose 140 H Calcium 7.7 L Phosphorus 3.2 Magnesium 2.1 Total Protein (PEP) Albumin (PEP) Globulin Albumin/Globulin Ratio Beta Globulins CONCHA M-Dinesh NATY Screen Blood Type Antibody Screen Crossmatch Active Medications Generic Name Dose Route Start Last Admin Trade Name Freq PRN Reason Stop Dose Admin Budesonide/Formoterol Fumarate 2 puff 08/11/18 22:00 08/18/18 09:32 Symbicort 160/4.5mcg - IH Not Given BID LISA Nafcillin Sodium 2 gm/ 100 mls @ 100 mls/hr 08/14/18 10:45 08/18/18 13:00 Dextrose IVPB 100 mls/hr Q4H-IV LISA Administration Protocol Insulin Aspart 1 vial 08/11/18 22:00 08/18/18 12:52 Novolog Vial Sliding Scale - SQ 2 units ACHS LISA Administration Protocol Methylprednisolone Sodium Succinate 20 mg 08/16/18 12:03 08/18/18 09:33 Solu-Medrol - IVPUSH 20 mg DAILY LISA Administration Metoprolol Tartrate 5 mg 08/14/18 14:47 08/17/18 19:01 Lopressor Injection - IVPUSH 5 mg Q4H PRN Administration TACHYCARDIA Metoprolol Tartrate 25 mg 08/18/18 14:00 08/18/18 13:00 Lopressor - NGT 25 mg TID LISA Administration Ondansetron HCl 4 mg 08/11/18 16:43 Zofran Injection IVPUSH Q6H PRN NAUSEA AND/OR VOMITING Pantoprazole Sodium 20 mg 08/12/18 10:00 08/18/18 09:31 Protonix - PO 20 mg DAILY LISA Administration Polyethylene Glycol 17 gm 08/11/18 22:00 08/18/18 09:31 Miralax (For Daily Use) - PO Not Given BID LISA Potassium Chloride 40 meq 08/18/18 10:00 08/18/18 09:31 Potassium Chloride Oral Liquid NGT 08/18/18 22:01 40 meq BID LISA Administration Senna 2 tab 08/11/18 22:00 08/17/18 21:33 Senna - PO Not Given HS LISA Sodium Chloride 2 spray 08/12/18 13:26 08/12/18 15:14 [place] Nasal [place] - NS 2 spray BID PRN Administration NASAL CONGESTION ASSESSMENT/PLAN: Patient is an 87 yo female with PMH of a-fib (rate controlled, on eliquis), COPD (on 2L home o2), HTN, pulmonary HTN, presented with gross hematuria. Renal and bladder US revealed right hydronephrosis and multiple filling defects in the bladder. Patient is s/p cystoscopy, clot evacuation, bladder biopsy and bladder fulgeration. #Pulmonary 1)Acute hypoxic/hypercapneic respiratory failure likely secondary to CHF/COPD exacerbation -Was on Bipap overnight, this morning tolerated Nasal canula. -Duoneb QID -Albuterol PRN -Decreased IV solu-medrol to 20mg daily -CXR and ABG in AM #Cardiovascular 1)Miladys-operative Hypotension -likely 2/2 sepsis, anesthesia -Cardiology (Dr. Mendez) consulted. Recommendations appreciated. -trop 2.0 the following day, trending down--suspect Type II NJ sec to hypoperfusion/sepsis (+/- underlying stable CAD), given associated finding of bacteremia. ECG 08/[address] depressions inferior leads, improved on 08/12 tracing--cannot exclude Type I NJ at time of events. -AC initially held for gross hematuria with large clots/hydronephrosis -BB and afib HR control as doing -hemodynamically stable, observe BPs as titrate AF meds 2)Atrial Fibrillation -HR still tachycardic -Switched Lopressor IV to 25mg NGT TID -Lopressor IV 5mg q4h PRN doses -if HRs rise will add digoxin -eliquis put on hold, still active bleeding at nephrostomy tubes and rodriguez. 3)Acute on chronic diastolic CHF -IVF discontinued. -CXR daily. 4)Troponinemia -trop peaked at 2.0, trended down -likely demand ischemia from hypoperfusion/sepsis -ECG 08/[address] depressions inferior leads, improved on tracing--cannot exclude Type I NJ at time of events. 5)Hypertension -BP controlled -cont current meds #Infectious disease 1)Bacteremia: likely 2/2 UTI -Blood cx: +Presumptive MSSA -Repeat blood cultures pending. -urine culture positive for Staph. -Infectious Disease (Dr. Garcia) consulted. Recommendations appreciated. -Continue IV Nafcillin 2gm q4h Day 5 #Hematology 1) Microcytic Anemia: stable -likely 2/2 hematuria -1 unit pRBC given, repeat Hgb 7.2 -H/H 7.7/24.8 today. -will continue to monitor #Genitourinary 1)Hemorrhagic cystitis -Patient underwent cystoscopy 08/11/2018 for gross hematuria,clot retention, rt. hydronephrosis -CBI discontinued. -Will resume eliquis. -Renal US: Mild to moderate right renal hydronephrosis and dilatation of the proximal right ureter that appears to have slightly worsened since prior exam. Partially exophytic left renal lwoer pole cyst measuring 2.7cm and mild left renal hydronephrosis. -Urology (Dr. Colon) consulted. -Dr. Watkins consulted. -s/p IR-guided b/l nephrostomy tube placement, with good output -Urine output: bright red #Nephrology 1)SANAM, improving -likely from ATN and is likely multifactorial. Avoid hypotension -BUN/Cr: 103/5.3 --> 72/2.8 --> 48/1.1 -Nephrology (Dr. Del Angel) consulted. Recommendations appreciated. -monitor bp and pressors to map of 65 -follow up repeat labs -will send more extensive renal workup -s/p b/l nephrostomy tube placement -monitor for post obstructive diuresis -fluids discontinued. 2)Hypokalemia: K 2.4 -Nephrology consulted. -KCL through NGT and IV given -Repeat K 3.4 -Will continue to replete PRN and monitor 3)Hyperphosphatemia,resolved: 9 --> 5.4 --> 3.2 -will continue to monitor electrolytes #FEN -IVF discontinued. -routine bmp monitoring -NGT feeding. #Prophylaxis 1)DVT - On Eliquis 5mg BID, held 2)GI - Protonix 20mg daily #Disposition -ICU for closer monitoring -palliative care consulted. Visit type - Emergency Visit Emergency Visit: Yes ED Registration Date: 07/25/18 Care time: The patient presented to the Emergency Department on the above date and was hospitalized for further evaluation of their emergent condition. - New Patient This patient is new to me today: Yes Date on this admission: 08/18/18 - Critical Care Critical Care patient: Yes Total Critical Care Time (in minutes): 40 Critical Care Statement: The care of this patient involved high complexity decision making to prevent further life threatening deterioration of the patient 's condition and/or to evaluate & treat vital organ system(s) failure or risk of failure.
[2018-08-18 14:19] LABS: ANTIGLOMERULAR BASEMENT MEN.AB 2 units (0-20)
[2018-08-18 14:39] LABS: ANION GAP 5 MMOL/L (8-16); BLOOD UREA NITROGEN 40 mg/dL (7-18); CHLORIDE 106 mmol/L (98-107); CO2 33 mmol/L (21-32); CREATININE 0.9 mg/dL (0.55-1.3); GLUCOSE,RANDOM 229 mg/dL (74-106); PHOSPHOROUS 2.5 mg/dL (2.5-4.9); POTASSIUM 3.4 mmol/L (3.5-5.1); SODIUM 145 mmol/L (136-145)
[2018-08-18] MEDS ORDERED: DEXTROSE 50%-WATER - 25 GM/50 ML VIAL IVPUSH ONE (16:25)
[2018-08-18 16:31] LABS: ATYPICAL pANCA <1:20 titer (Neg:<1:20); C-ANCA <1:20 titer (Neg:<1:20); P-ANCA <1:20 titer (Neg:<1:20)
--- NOTE | 2018-08-18 18:35 | PN ---
Progress Note, Physician History of Present Illness: Awake, confused Supine in bed S/P bilateral PCN No acute distress Afebrile WBC improved BC (08/16) no growth - Current Medication List Current Medications: Active Medications Budesonide/Formoterol Fumarate (Symbicort 160/4.5mcg -) 2 puff IH BID [facility] Last Admin: 08/18/18 09:32 Dose: Not Given Nafcillin Sodium 2 gm/ (Dextrose) 100 mls @ 100 mls/hr IVPB Q4H-IV [facility]; Protocol Last Admin: 08/18/18 17:20 Dose: 100 mls/hr Insulin Aspart (Novolog Vial Sliding Scale -) 1 vial SQ ACHS [facility]; Protocol Last Admin: 08/18/18 16:37 Dose: Not Given Methylprednisolone Sodium Succinate (Solu-Medrol -) 20 mg IVPUSH DAILY [facility] Last Admin: 08/18/18 09:33 Dose: 20 mg Metoprolol Tartrate (Lopressor Injection -) 5 mg IVPUSH Q4H PRN PRN Reason: TACHYCARDIA Last Admin: 08/17/18 19:01 Dose: 5 mg Metoprolol Tartrate (Lopressor -) 25 mg NGT TID [facility] Last Admin: 08/18/18 13:00 Dose: 25 mg Ondansetron HCl (Zofran Injection) 4 mg IVPUSH Q6H PRN PRN Reason: NAUSEA AND/OR VOMITING Pantoprazole Sodium (Protonix -) 20 mg PO DAILY [facility] Last Admin: 08/18/18 09:31 Dose: 20 mg Polyethylene Glycol (Miralax (For Daily Use) -) 17 gm PO BID [facility] Last Admin: 08/18/18 09:31 Dose: Not Given Potassium Chloride (Potassium Chloride Oral Liquid) 40 meq NGT BID [facility] Stop: 08/18/18 22:01 Last Admin: 08/18/18 09:31 Dose: 40 meq Senna (Senna -) 2 tab PO HS [facility] Last Admin: 08/17/18 21:33 Dose: Not Given Sodium Chloride ([place] Nasal [place] -) 2 spray NS BID PRN PRN Reason: NASAL CONGESTION Last Admin: 08/12/18 15:14 Dose: 2 spray - Objective Vital Signs: Vital Signs Temperature 98.6 F 08/18/18 18:00 Pulse Rate 114 H 08/18/18 18:00 Respiratory Rate 18 08/18/18 18:00 Blood Pressure 111/51 L 08/18/18 18:00 O2 Sat by Pulse Oximetry (%) 91 L 08/18/18 09:00 Constitutional: Yes: No Distress Eyes: Yes: Conjunctiva Clear Cardiovascular: Yes: Regular Rate and Rhythm, S1, S2 Respiratory: Yes: CTA Bilaterally Gastrointestinal: Yes: Normal Bowel Sounds, Soft. No: Tenderness Edema: No Labs: CBC, BMP 08/18/18 05:30 08/18/18 13:00 INR, PTT INR 1.74 (0.83-1.09) H 08/16/18 09:25 Assessment/Plan Staph bacteremia/ sepsis MSSA Sepsis Acute renal failure S/P bilateral PCN Leukocytosis improved Lactic acidosis resolved Hemorrhagic cystitis COPD CHF Continue nafcillin Repeat BC no growth Echocardiogram no vegetations
--- NOTE | 2018-08-18 19:27 | PN ---
Physical Exam: SUBJECTIVE: Patient seen and examined at bedside. Remains lethargic. ICU team met with family, DNR/DNI signed by grandson. B/l nephrostomy tubes in place and draining well. Creatinine down to normal range. OBJECTIVE: Vital Signs Period Temp Pulse Resp BP Sys/Garza Pulse Ox Last 24 Hr 98.3 F-98.8 F 106-129 15-20 98-123/50-77 91-92 GENERAL: Lethargic, opens eyes to verbal stimuli HEAD: NC/AT LUNGS: B/L Rhonchi HEART: Irregularly irregular ABDOMEN:Soft, NDNT, BS Hypoactive EXTREMITIES: R arm edema SKIN: Warm, dry, normal turgor, no rashes or lesions noted Laboratory Results - last 24 hr 08/16/18 08/17/18 08/17/18 05:30 17:33 22:00 WBC 16.6 H RBC 3.55 L Hgb 7.9 L Hct 25.4 L D MCV 71.6 L MCH 22.2 L MCHC 31.0 L RDW 23.1 H Plt Count 172 MPV 8.7 Anticoagulation Therapy Puncture Site ABG pH ABG pCO2 at Pt Temp ABG pO2 at Pt Temp ABG HCO3 ABG O2 Sat (Measured) ABG O2 Content ABG Base Excess Junior Test O2 Delivery Device Oxygen Flow Rate Vent Mode Vent Rate Mechanical Rate Pressure Support Vent Sodium Potassium Chloride Carbon Dioxide Anion Gap BUN Creatinine Creat Clearance w eGFR POC Glucometer [phone] Random Glucose Calcium Phosphorus Magnesium Total Protein (PEP) 4.7 L Albumin (PEP) 2.0 L Globulin 2.7 Albumin/Globulin Ratio 0.7 Beta Globulins 0.7 Stool Occult Blood CONCHA M-Dinesh Not observed NATY Screen Negative c-ANCA <1:20 Proteinase 3 (PR3) <3.5 p-ANCA <1:20 Atypical p-ANCA <1:20 Myeloperoxidase Ab <9.0 Glomerular Base Memb Ab 2 HCV Quantitation Hcv not detected HCV RNA log copies/mL TNP 08/17/18 08/18/18 08/18/18 23:31 05:13 05:30 WBC 13.9 H RBC 3.49 L Hgb 7.7 L Hct 24.8 L MCV 71.0 L MCH 22.0 L MCHC 31.0 L RDW 22.3 H Plt Count 157 MPV 8.6 Anticoagulation Therapy Puncture Site ABG pH ABG pCO2 at Pt Temp ABG pO2 at Pt Temp ABG HCO3 ABG O2 Sat (Measured) ABG O2 Content ABG Base Excess Junior Test O2 Delivery Device Oxygen Flow Rate Vent Mode Vent Rate Mechanical Rate Pressure Support Vent Sodium Potassium Chloride Carbon Dioxide Anion Gap BUN Creatinine Creat Clearance w eGFR POC Glucometer 150.52248 164.31744 Random Glucose Calcium Phosphorus Magnesium Total Protein (PEP) Albumin (PEP) Globulin Albumin/Globulin Ratio Beta Globulins Stool Occult Blood CONCHA M-Dinesh NATY Screen c-ANCA Proteinase 3 (PR3) p-ANCA Atypical p-ANCA Myeloperoxidase Ab Glomerular Base Memb Ab HCV Quantitation HCV RNA log copies/mL 08/18/18 08/18/18 08/18/18 05:30 06:30 12:52 WBC RBC Hgb Hct MCV MCH MCHC RDW Plt Count MPV Anticoagulation Therapy No Result Required. Puncture Site Right radial ABG pH 7.44 ABG pCO2 at Pt Temp 46.2 H D ABG pO2 at Pt Temp 149.0 H ABG HCO3 30.9 H ABG O2 Sat (Measured) 99.3 H ABG O2 Content 17.0 ABG Base Excess 6.3 H Junior Test Positive O2 Delivery Device Bipap Oxygen Flow Rate 40 Vent Mode No Result Required. Vent Rate 40 Mechanical Rate No Result Required. Pressure Support Vent No Result Required. Sodium 143 Potassium 2.4 L* Chloride 103 Carbon Dioxide 32 Anion Gap 8 BUN 48 H Creatinine 1.1 Creat Clearance w eGFR 46.88 POC Glucometer 198.15136 Random Glucose 140 H Calcium 7.7 L Phosphorus 3.2 Magnesium 2.1 Total Protein (PEP) Albumin (PEP) Globulin Albumin/Globulin Ratio Beta Globulins Stool Occult Blood CONCHA M-Dinesh NATY Screen c-ANCA Proteinase 3 (PR3) p-ANCA Atypical p-ANCA Myeloperoxidase Ab Glomerular Base Memb Ab HCV Quantitation HCV RNA log copies/mL 08/18/18 08/18/18 08/18/18 13:00 15:15 16:24 WBC RBC Hgb Hct MCV MCH MCHC RDW Plt Count MPV Anticoagulation Therapy Puncture Site ABG pH ABG pCO2 at Pt Temp ABG pO2 at Pt Temp ABG HCO3 ABG O2 Sat (Measured) ABG O2 Content ABG Base Excess Junior Test O2 Delivery Device Oxygen Flow Rate Vent Mode Vent Rate Mechanical Rate Pressure Support Vent Sodium 145 Potassium 3.4 L Chloride 106 Carbon Dioxide 33 H Anion Gap 5 L BUN 40 H Creatinine 0.9 Creat Clearance w eGFR 59.09 POC Glucometer < 50 Random Glucose 229 H Calcium 8.0 L Phosphorus 2.5 Magnesium 2.0 Total Protein (PEP) Albumin (PEP) Globulin Albumin/Globulin Ratio Beta Globulins Stool Occult Blood Positive CONCHA M-Dinesh NATY Screen c-ANCA Proteinase 3 (PR3) p-ANCA Atypical p-ANCA Myeloperoxidase Ab Glomerular Base Memb Ab HCV Quantitation HCV RNA log copies/mL Active Medications Generic Name Dose Route Start Last Admin Trade Name Freq PRN Reason Stop Dose Admin Budesonide/Formoterol Fumarate 2 puff 08/11/18 22:00 08/18/18 09:32 Symbicort 160/4.5mcg - IH Not Given BID LISA Nafcillin Sodium 2 gm/ 100 mls @ 100 mls/hr 08/14/18 10:45 08/18/18 17:20 Dextrose IVPB 100 mls/hr Q4H-IV LISA Administration Protocol Insulin Aspart 1 vial 08/11/18 22:00 08/18/18 16:37 Novolog Vial Sliding Scale - SQ Not Given ACHS LISA Protocol Methylprednisolone Sodium Succinate 20 mg 08/16/18 12:03 08/18/18 09:33 Solu-Medrol - IVPUSH 20 mg DAILY LISA Administration Metoprolol Tartrate 5 mg 08/14/18 14:47 08/17/18 19:01 Lopressor Injection - IVPUSH 5 mg Q4H PRN Administration TACHYCARDIA Metoprolol Tartrate 25 mg 08/18/18 14:00 08/18/18 13:00 Lopressor - NGT 25 mg TID LISA Administration Ondansetron HCl 4 mg 08/11/18 16:43 Zofran Injection IVPUSH Q6H PRN NAUSEA AND/OR VOMITING Pantoprazole Sodium 20 mg 08/12/18 10:00 08/18/18 09:31 Protonix - PO 20 mg DAILY LISA Administration Polyethylene Glycol 17 gm 08/11/18 22:00 08/18/18 09:31 Miralax (For Daily Use) - PO Not Given BID LISA Potassium Chloride 40 meq 08/18/18 10:00 08/18/18 09:31 Potassium Chloride Oral Liquid NGT 08/18/18 22:01 40 meq BID LISA Administration Senna 2 tab 08/11/18 22:00 08/17/18 21:33 Senna - PO Not Given HS LISA Sodium Chloride 2 spray 08/12/18 13:26 08/12/18 15:14 [place] Nasal [place] - NS 2 spray BID PRN Administration NASAL CONGESTION ASSESSMENT/PLAN: 87 yo female with PMH of a-fib (rate controlled, on eliquis), CHF, COPD (on 2L home o2), HTN, pulmonary HTN, presented to the ED with complaint of SOB with a cough productive of clear sputum for 2 days and admitted for the treatment of CHF exacerbation #Acute hypercapnic hypoxic respiratory distress: resolving, patient had a likely exacerbation 2/2 CHF and COPD Medrol IVPUSH 20 QD per ICU Team -Duonebs scheduled QID; albuterol PRN -Continue pulmicort inhaler -on 3L nasal cannula -continue daily weights -BiPap PRN -Central line inserted by ICU team Dr Hernández. 08/17/18 #Hematuria: continuing to occur, likely 2/2 trauma vs acute bladder/kidney pathology -H&H 7.4/21.1 today 08/15/18 - CBI Discontinued per Urology. Eliquis resumed. -Bladder/kidney US ordered--> 08/08/18: R [place]. Partially distended urinary bladder that is at least partially filled with debris. Cannot rule out blood clots. Cannot adequately evaluate its posterior wall. Bilateral ureteral jets were not visualized. Further evaluation of the urinary bladder is needed. -KUB no signs of obstructing stones. Urology on board. -08/11/19 S/p Cystourethroscopy, evacuation of clots, fulguration of bleeders placement 3 way 30 ml 24 fr rodriguez with continuos bladder irrigation. -Renal Sonogram 08/15/18: IMPRESSION: Mild to moderate right renal hydronephrosis and dilatation of the proximal right ureter at appears to have slightly worsened since see prior exam. Partially exophytic left renal lower pole cyst measuring 2.7 cm and mild left renal hydronephrosis. - 08/16/18. Contacted I.R. Percutaneous Nephrostomy tube insertion due to persistent unrelenting R hydronephrosis. Dr Watkins on board. S/P B/L percutaneous nephrostomy tube placement. Good urine output. - PT/INR 20.6/1.74 # Anemia -7.7/24.8 08/18/18 Issued 1 u PRBC. Will administer another u PRBC. F/U CBC # RUE Edema Doppler RUE Negative for DVT 08/17/18 #SANAM, Hyperkalemia -Renal Dr Del Angel on board -Monitor urine output/Creatinine -08/18/18 BUN/Cr--> 48/1.1 # WBC >40K----> improved. WBC today 08/18/18--> 13.9 -Nafcillin 2 gm Q4H -Blood Cultures---MS Staph Aureus -Urine Cultures---MS Staph Aureus #Atrial fibrillation: stable -Lopresor IVPUSH -Echo--> EF 60-65%, moderately to severe LA Dilation. -LE Dopplers negative for any DVT May need CEDRIC if persistently bacteremic Dr Hackett on board. Fluids D/C'ed due to fluid overload. #Sarcoidosis: chronic -Already on steroids for above problems, continue steroids. #HLD: stable -Continue Lipitor FEN: NS Monitor electrolytes NPO PPX: DVT - Eliquis 5 mg po daily - Currently on Hold GI - Protonix 20mg qDaily Dispo: ICU Visit type - Emergency Visit Emergency Visit: Yes ED Registration Date: 07/25/18 Care time: The patient presented to the Emergency Department on the above date and was hospitalized for further evaluation of their emergent condition. - New Patient This patient is new to me today: No - Critical Care Critical Care patient: Yes Total Critical Care Time (in minutes): 35 Critical Care Statement: The care of this patient involved high complexity decision making to prevent further life threatening deterioration of the patient 's condition and/or to evaluate & treat vital organ system(s) failure or risk of failure. - Discharge Referral Referred to [facility] No
[2018-08-18] MEDS: SENNOSIDES 8.6MG TABLET (FP) PO SCH (21:13)
[2018-08-19] MEDS ORDERED: PT OWN MED DRAWER 7, Y5N ONE ×5 (01:45→15:13)
[2018-08-19] MEDS: NAFCILLIN - 2 GM in DEXTROSE 5%-WATER - 100 ML IVPB SCH ×6 (01:46→21:28)
[2018-08-19] MEDS: INSULIN SLIDING SCALE (NOVOLOG) 1 VIAL SQ SCH ×4 (06:02→21:25)
[2018-08-19] MEDS: METOPROLOL TARTRATE 25 MG TABLET (FP) NGT SCH (06:05)
[2018-08-19 06:15] LABS: HEMATOCRIT 24.4 % (32.4-45.2); HEMOGLOBIN 7.5 GM/dL (10.7-15.3); MCH 21.9 pg (25.7-33.7); MCHC 30.7 g/dl (32.0-36.0); MEAN CELL VOLUME 71.5 fl (80-96); MEAN PLT VOLUME 8.9 fl (7.5-11.1); PLATELET COUNT 175 K/MM3 (134-434); RBC 3.41 M/mm3 (3.60-5.2); WHITE BLOOD COUNT 13.7 K/mm3 (4.0-10.0)
[2018-08-19 06:33] LABS: ANION GAP 8 MMOL/L (8-16); BLOOD UREA NITROGEN 34 mg/dL (7-18); CALCIUM 7.9 mg/dL (8.5-10.1); CHLORIDE 108 mmol/L (98-107); CO2 32 mmol/L (21-32); CREATININE 0.8 mg/dL (0.55-1.3); GLUCOSE,RANDOM 203 mg/dL (74-106); MAGNESIUM 1.8 mg/dL (1.8-2.4); PHOSPHOROUS 1.4 mg/dL (2.5-4.9); SODIUM 148 mmol/L (136-145)
[2018-08-19 06:51] LABS: POTASSIUM 2.9 mmol/L (3.5-5.1)
[2018-08-19] MEDS ORDERED: POTASSIUM PHOSPHATE 30 MM in DEXTROSE 5%-WATER - 250 ML IVPB ONE (08:00)
[2018-08-19] MEDS ORDERED: POTASSIUM CHLORIDE 10 MEQ PREMIX IVPB (POTASSIUM RIDER) IVPB SCH ×2 (08:04→09:00)
[2018-08-19] MEDS ORDERED: MORPHINE SULFATE 2 MG/ML VIAL IVPUSH PRN (08:04)
--- NOTE | 2018-08-19 08:10 | PN ---
Progress Note (short form) - Note Progress Note: Pulm/CCM SUBJECTIVE: Patient seen and examined in the ICU. -more awake, asking to leave -afebrile OBJECTIVE: Vital Signs Temp 98.6 F 08/19/18 06:00 Pulse 106 H 08/19/18 06:00 Resp 20 08/19/18 06:00 BP 133/82 08/19/18 06:00 Pulse Ox 98 08/19/18 05:00 Intake & Output 08/18/18 08/18/18 08/19/18 11:59 23:59 11:59 Intake Total 425 670 770 Output Total 575 870 500 Balance -150 -200 270 Weight 74.5 kg 74.446 kg Intake: IVPB 200 200 300 Tube Feeding 175 420 420 Tube Irrigant 50 50 50 Output: Urine 575 870 500 Aguayo 75 50 50 Left Nephrostomy 300 370 200 Right Nephrostomy 200 450 250 Other: Voiding Method Indwelling Catheter Indwelling Catheter Bowel Movement Yes No Yes Body Mass Index (BMI) 29.9 Weight Measurement Method Built in [facility] Active Medications Budesonide/Formoterol Fumarate (Symbicort 160/4.5mcg -) 2 puff IH BID [facility] Last Admin: 08/18/18 09:32 Dose: Not Given Nafcillin Sodium 2 gm/ (Dextrose) 100 mls @ 100 mls/hr IVPB Q4H-IV [facility]; Protocol Last Admin: 08/18/18 09:31 Dose: 100 mls/hr Insulin Aspart (Novolog Vial Sliding Scale -) 1 vial SQ ACHS [facility]; Protocol Last Admin: 08/18/18 06:06 Dose: Not Given Methylprednisolone Sodium Succinate (Solu-Medrol -) 20 mg IVPUSH DAILY [facility] Last Admin: 08/18/18 09:33 Dose: 20 mg Metoprolol Tartrate (Lopressor Injection -) 5 mg IVPUSH Q4H PRN PRN Reason: TACHYCARDIA Last Admin: 08/17/18 19:01 Dose: 5 mg Metoprolol Tartrate (Lopressor -) 25 mg NGT TID [facility] Ondansetron HCl (Zofran Injection) 4 mg IVPUSH Q6H PRN PRN Reason: NAUSEA AND/OR VOMITING Pantoprazole Sodium (Protonix -) 20 mg PO DAILY [facility] Last Admin: 08/18/18 09:31 Dose: 20 mg Polyethylene Glycol (Miralax (For Daily Use) -) 17 gm PO BID L[facility] Last Admin: 08/18/18 09:31 Dose: Not Given Potassium Chloride (Potassium Chloride Oral Liquid) 40 meq NGT BID LISA Stop: 08/18/18 22:01 Last Admin: 08/18/18 09:31 Dose: 40 meq Senna (Senna -) 2 tab PO HS LISA Last Admin: 08/17/18 21:33 Dose: Not Given Sodium Chloride ([place] Nasal [place] -) 2 spray NS BID PRN PRN Reason: NASAL CONGESTION Last Admin: 08/12/18 15:14 Dose: 2 spray Gen: Awake, asking to leave, slightly tachypneic, Heart: tachycardic, irregular Lung: scattered rhonchi, weak cough Abd: soft, nontender, nephrostomy on R with bloody out put Ext: no edema Neuro: non focal, diffusely weak Laboratory Results - last 24 hr 08/15/18 08/16/18 08/18/18 05:30 05:30 12:52 WBC RBC Hgb Hct MCV MCH MCHC RDW Plt Count MPV Sodium Potassium Chloride Carbon Dioxide Anion Gap BUN Creatinine Creat Clearance w eGFR POC Glucometer [phone] Random Glucose Calcium Phosphorus Magnesium Stool Occult Blood c-ANCA <1:20 Proteinase 3 (PR3) <3.5 p-ANCA <1:20 Atypical p-ANCA <1:20 Myeloperoxidase Ab <9.0 Glomerular Base Memb Ab 2 HCV Quantitation Hcv not detected HCV RNA log copies/mL TNP Crossmatch See Detail 08/18/18 08/18/18 08/18/18 13:00 15:15 16:24 WBC RBC Hgb Hct MCV MCH MCHC RDW Plt Count MPV Sodium 145 Potassium 3.4 L Chloride 106 Carbon Dioxide 33 H Anion Gap 5 L BUN 40 H Creatinine 0.9 Creat Clearance w eGFR 59.09 POC Glucometer < 50 Random Glucose 229 H Calcium 8.0 L Phosphorus 2.5 Magnesium 2.0 Stool Occult Blood Positive c-ANCA Proteinase 3 (PR3) p-ANCA Atypical p-ANCA Myeloperoxidase Ab Glomerular Base Memb Ab HCV Quantitation HCV RNA log copies/mL Crossmatch 08/19/18 08/19/18 05:30 05:30 WBC 13.7 H RBC 3.41 L Hgb 7.5 L Hct 24.4 L MCV 71.5 L MCH 21.9 L MCHC 30.7 L RDW 22.0 H Plt Count 175 MPV 8.9 Sodium 148 H Potassium 2.9 L* Chloride 108 H Carbon Dioxide 32 Anion Gap 8 BUN 34 H Creatinine 0.8 Creat Clearance w eGFR > 60 POC Glucometer Random Glucose 203 H Calcium 7.9 L Phosphorus 1.4 L Magnesium 1.8 Stool Occult Blood c-ANCA Proteinase 3 (PR3) p-ANCA Atypical p-ANCA Myeloperoxidase Ab Glomerular Base Memb Ab HCV Quantitation HCV RNA log copies/mL Crossmatch ASSESSMENT AND PLAN: Acute on Chronic Hypoxic and Hypercapneic Respiratory Failure Acute on Chronic Diastolic Heart Failure Acute COPD Exacerbation Sarcoidosis Severe Pulmonary HTN Atrial Fibrillation HTN Hyperlipidemia Hematuria s/p Cystoscopy MSSA Bacteremia Sepsis Acute Kidney Injury Right Hydronephrosis s/p nephrostomy placement - antibiotics per ID - taper medrol - inhaled bronchodilators - O2 to keep SpO2>90% - monitor urine output, creatinine - rate control - holding anticoagulation - Normal transfusion thresholds - Start BB via NGT - ok for floor today - DNR/DNI, return to [place], ? NIK Rubio ACNP 1792 35Min CCT
--- NOTE | 2018-08-19 09:04 | PN ---
Progress Note (short form) - Note Progress Note: awake confused Vital Signs Period Temp Pulse Resp BP Sys/Garza Pulse Ox Last 24 Hr 98.3 F-98.9 F 106-129 16-27 98-133/50-82 90-98 cor-rrr lungs decreased bs at bases abd soft,nt bilateral PCN with bloody urine rodriguez with scant blood CBC, BMP 08/19/18 05:30 08/19/18 05:30 Microbiology 08/15/18 05:40 Blood - Peripheral Venous Blood Culture - Preliminary NO GROWTH OBTAINED AFTER 96 HOURS, INCUBATION TO CONTINUE FOR 1 DAYS. 08/15/18 05:30 Blood - Peripheral Venous Blood Culture - Preliminary NO GROWTH OBTAINED AFTER 96 HOURS, INCUBATION TO CONTINUE FOR 1 DAYS. 08/17/18 16:00 Blood - Central Line Blood Culture - Preliminary NO GROWTH OBTAINED AFTER 24 HOURS, INCUBATION TO CONTINUE FOR 4 DAYS. 08/17/18 16:00 Blood - Central Line Blood Culture - Preliminary NO GROWTH OBTAINED AFTER 24 HOURS, INCUBATION TO CONTINUE FOR 4 DAYS. 08/16/18 12:30 Urine - Urine Nephrostomy Tube Right Urine Culture - Final NO GROWTH OBTAINED 08/16/18 12:30 Urine - Urine Nephrostomy Tube Left Urine Culture - Final NO GROWTH OBTAINED 08/12/18 13:45 Blood - Peripheral Venous Blood Culture - Final Staphylococcus Aureus 08/12/18 13:40 Blood - Peripheral Venous Blood Culture - Final Staphylococcus Aureus 08/11/18 20:45 Blood - Peripheral Venous Blood Culture - Final Staphylococcus Latex Coag Pos 08/11/18 20:30 Blood - Peripheral Venous Blood Culture - Final Staphylococcus Aureus 08/11/18 14:46 Urine - Urine, Via Cystoscope Urine Culture - Final Staphylococcus Aureus a/p MSSA bacteremia S/p bilateral PCN hemorrhagic cystitis continue nafcillin blood cultures 08/15 and 08/17 are negative f/u labs will require care home iv antibiotics
[2018-08-19] MEDS: methylPREDNISolone NA SUCC 40 MG/1 ML VIAL IVPUSH SCH (09:27)
[2018-08-19] MEDS: PANTOPRAZOLE 20 MG TABLET (FP) PO SCH (09:28)
[2018-08-19] MEDS: POLYETHYLENE GLYCOL 3350 119 GM BTL PO SCH ×2 (09:28→21:24)
--- NOTE | 2018-08-19 10:17 | PN ---
Progress Note (short form) - Note Progress Note: RENAL Pt is awake and alert Last Vital Signs Temp Pulse Resp BP Pulse Ox 98.6 F 106 H 27 H 113/59 L 98 08/19/18 06:00 08/19/18 08:00 08/19/18 09:00 08/19/18 08:00 08/19/18 05:00 lungs clear anteriorly cvs s1s2 abd soft ext n edema has a Perc on right draining pinkish urine and a rodriguez draining bloody urine neuro awake CBC, BMP 08/19/18 05:30 08/19/18 05:30 Current Medications Generic Name Dose Route Start Last Admin Trade Name Freq PRN Reason Stop Dose Admin Budesonide/Formoterol Fumarate 2 puff 08/11/18 22:00 08/18/18 21:15 Symbicort 160/4.5mcg - IH Not Given BID LISA Nafcillin Sodium 2 gm/ 100 mls @ 100 mls/hr 08/14/18 10:45 08/19/18 09:28 Dextrose IVPB 100 mls/hr Q4H-IV LISA Administration Protocol Potassium Phosphate 30 mm/ 260 mls @ 62.5 mls/hr 08/19/18 08:00 Dextrose IVPB 08/19/18 12:09 ONCE ONE Potassium Chloride 10 meq in 100 mls @ 100 mls/hr 08/19/18 09:45 Potassium Chloride 10 Meq Premix Ivpb - IVPB 08/19/18 11:44 Q1H LISA Insulin Aspart 1 vial 08/11/18 22:00 08/19/18 06:02 Novolog Vial Sliding Scale - SQ 4 units ACHS LISA Administration Protocol Methylprednisolone Sodium Succinate 20 mg 08/16/18 12:03 08/19/18 09:27 Solu-Medrol - IVPUSH 20 mg DAILY LISA Administration Metoprolol Tartrate 5 mg 08/14/18 14:47 08/17/18 19:01 Lopressor Injection - IVPUSH 5 mg Q4H PRN Administration TACHYCARDIA Metoprolol Tartrate 25 mg 08/18/18 14:00 08/19/18 06:05 Lopressor - NGT 25 mg TID LISA Administration Morphine Sulfate 1 mg 08/19/18 08:04 Morphine Sulfate IVPUSH Q3H PRN PAIN LEVEL 1 - 3 Ondansetron HCl 4 mg 10/26/18 16:43 Zofran Injection IVPUSH Q6H PRN NAUSEA AND/OR VOMITING Pantoprazole Sodium 20 mg 08/12/18 10:00 08/19/18 09:28 Protonix - PO 20 mg DAILY LISA Administration Polyethylene Glycol 17 gm 08/11/18 22:00 08/19/18 09:28 Miralax (For Daily Use) - PO Not Given BID LISA Senna 2 tab 08/11/18 22:00 08/18/18 21:13 Senna - PO Not Given HS LISA Sodium Chloride 2 spray 08/12/18 13:26 08/12/18 15:14 [place] Nasal [place] - NS 2 spray BID PRN Administration NASAL CONGESTION Impression 1. SANAM 2. hypotension s/p MSSA bacteremia 3. pulm HTN 4. CHF 5. hematuria 6. sarcoid 7. COPD 8. a-fib 9. hx of HTN 10. hyperlipidemia 11. hyperkalemia resolved, now hypokalemic 12. mild hydro on ultrasound s/p nephrostomy Plan - replace potassium - SANMA likely largely from obstructive disease - monitor nephrostomy tube output would hydrate with hypotonic fluids, note hypernatremia MV
[2018-08-19] MEDS: KCL 10 MEQ IVPB 10 MEQ/100 ML INFUS.BAG IVPB SCH ×2 (10:23→10:25)
[2018-08-19] MEDS ORDERED: SODIUM CHLORIDE 0.45%/POT 20 MEQ/1,000 ML INFUS.BAG IV SCH (10:30)
[2018-08-19] MEDS: BUDESONIDE/FORMETEROL FUMARATE 160/4.5 mcg INHALER IH SCH ×2 (10:58→21:24)
--- NOTE | 2018-08-19 11:06 | PN ---
Progress Note (short form) - Note Progress Note: Chief Complaint: resp failure, hypotension History of Present Illness: no chest pain, palps, dizzy, lightheadedness Current Medications Budesonide/Formoterol Fumarate (Symbicort 160/4.5mcg -) 2 puff IH BID [facility] Last Admin: 08/19/18 10:58 Dose: Not Given Nafcillin Sodium 2 gm/ (Dextrose) 100 mls @ 100 mls/hr IVPB Q4H-IV [facility]ISA; Protocol Last Admin: 08/19/18 09:28 Dose: 100 mls/hr Potassium Phosphate 30 mm/ (Dextrose) 260 mls @ 62.5 mls/hr IVPB ONCE ONE Stop: 08/19/18 12:09 Potassium Chloride (Potassium Chloride 10 Meq Premix Ivpb -) 10 meq in 100 mls @ 100 mls/hr IVPB Q1H [facility] Stop: 08/19/18 11:44 Last Admin: 08/19/18 10:25 Dose: 100 mls/hr Potassium Chloride/Sodium Chloride (1/2ns+20meq Kcl) 20 meq in 1,000 mls @ 75 mls/hr IV ASDIR [facility] Last Admin: 08/19/18 10:48 Dose: 75 mls/hr Insulin Aspart (Novolog Vial Sliding Scale -) 1 vial SQ ACHS [facility]; Protocol Last Admin: 08/19/18 06:02 Dose: 4 units Methylprednisolone Sodium Succinate (Solu-Medrol -) 20 mg IVPUSH DAILY [facility] Last Admin: 08/19/18 09:27 Dose: 20 mg Metoprolol Tartrate (Lopressor Injection -) 5 mg IVPUSH Q4H PRN PRN Reason: TACHYCARDIA Last Admin: 08/17/18 19:01 Dose: 5 mg Metoprolol Tartrate (Lopressor -) 25 mg NGT TID [facility] Last Admin: 08/19/18 06:05 Dose: 25 mg Morphine Sulfate (Morphine Sulfate) 1 mg IVPUSH Q3H PRN PRN Reason: PAIN LEVEL 1 - 3 Ondansetron HCl (Zofran Injection) 4 mg IVPUSH Q6H PRN PRN Reason: NAUSEA AND/OR VOMITING Pantoprazole Sodium (Protonix -) 20 mg PO DAILY [facility] Last Admin: 08/19/18 09:28 Dose: 20 mg Polyethylene Glycol (Miralax (For Daily Use) -) 17 gm PO BID LISA Last Admin: 08/19/18 09:28 Dose: Not Given Senna (Senna -) 2 tab PO HS [facility]ISA Last Admin: 08/18/18 21:13 Dose: Not Given Sodium Chloride ([place] Nasal [place] -) 2 spray NS BID PRN PRN Reason: NASAL CONGESTION Last Admin: 08/12/18 15:14 Dose: 2 spray - Objective Vital Signs: Vital Signs Period Temp Pulse Resp BP Sys/Garza Pulse Ox Last 24 Hr 98.3 F-98.9 F 106-129 16- 98-133/50-82 90-98 Intake & Output 08/16/18 08/17/18 08/18/18 08/19/18 23:59 23:59 23:59 23:59 Intake Total 1500 1964 1095 770 Output Total 1050 2800 1445 500 Balance 450 -836 -350 270 Weight 164 lb 3.91 oz 164 lb 2 oz Constitutional: Yes: Well Nourished, No Distress, Calm Cardiovascular: Yes: Pulse Irregular, S1, S2. No: Gallop, Murmur Respiratory: Yes: Regular, + rales (anteriorly). No: Accessory Muscle Use Extremities: No: Cold Edema: No Neurological: Yes: Lethargy. No: Seizure Psychiatric: No: Agitated abd nd pos bs no jaundice diaphoresis CXR: improved aeration Echo 05/03: nl LVEF. mild RVE, mild-mod RV hypo. L/NEENA. mod MR/TR. RVSP at least 88 mmHg Echo 03/2017: Mild conc lvh. nl lv/rv size/fn, mod ronnie, mod mr, mod tr, rvsp 40- 50 EKG: afib with PVCs tele: afib, vr low 100s with episodes of RVR to 160s est cct 35 mins Assessment/Plan hypotension, NSTEMI, staph bacteremia: -periop hypotension 08/11 during cysto, briefly on pressors. 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 ECG 08/[address]ressions inferior leads, improved on 08/12 tracing--cannot exclude Type I MD at time of events. -AC initially held for gross hematuria with large clots/hydronephrosis, was back on eliquis and now stopped again due to hematuria. defer aspirin -BB and afib HR control as doing, hemodynamically stable - IV metoprolol as not taking PO consistently -consider risk stratification MPI once clinically stable (if will change med mgmt approach) -defer invasive CAD mgmt approach given Type II MD > Type I here, plus pt's poor functional status with competing mortality limitations from severe lung dz , low likelihood to improve prognosis, and risks > benefits (including bleeding , AIN) SANAM: -s/p b/l perc nephrostomy, cr improved now -renal ultrasound shows raad hydronephrosis, urology following -holding lasix -renal following afib: -Rapid rates noted on tele, increase metoprolol to 50 mg TID -defer CCB given concern about RV contractility depression (cor pulm pt) -eliquis stopped again due to hematuria acute resp failure with wheezing, acute exacerbation of copd/pulm sarcoid, acute diast CHF, cor pulmonale with RV failure -being tx'd with BDs, steroids O2 per pulm -CXR clear, BNP >7000, required bipap for increased work of breathing -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 initially 158 here. -cont lasix iv 80 bid -07/29: Creat 0.6 and weight down to 162, continue current lasix regimen -07/30: Creat 0.8, K 3.4, Wt 161. Continue current lasix regimen, replete K -07/31: 161 lbs. -08/01: wt 160 lbs, cont same -08/02-: appears euvolemic. was on lasix 40 qd at home. transitioned 80 iv bid to 80 qd -08/06: iv steroids continue and now dose increased. wt up a bit as well, restarted lasix 80 mg IV BID - 08/07-: weight continues to decrease, sob improving, Cr stable, still on IV steroids. Continue lasix 80 mg IV BID while on IV steroids. plan change to po lasix 80 daily when on po steroids. - 08/12: hypotensive during cystoscopy, looks dry clinically. SANAM this am. lasix on hold, gentle IVF--observe chf status closely - 08/13: lactic acidosis, + staph in BCx's the past 2 days, organism awaiting ID. renal fxn worsening significantly--incr IVF rate (125 cc/hr) - 08/14: remains non-edematous. CXR improved. renal fxn worsening rapidly. cont IVF - 08/15: Cr continues to rise, appears euvolemic. cont IVF, poor PO intake - 08/16:renal function continues to decline, appears overloaded. IVF rate cut back, dc IV fluids for now -08/17-2: s/p b/l perc nephrostomy, cr improved today - 08/19: stable volume status, cont to hold ivfs and lasix. HTN: -bp controlled -cont current meds hematuria, obstruction with hydro: - cysto showed hemorrhagic cystitis with large amount of clot which was evacuated - CBI dc'ed per urology, reportedly hematuria again. stopped eliquis
[2018-08-19] MEDS: METOPROLOL TARTRATE 5 MG/5 ML VIAL IVPUSH PRN (11:43)
--- NOTE | 2018-08-19 12:46 | EKG ---
Test Reason : Blood Pressure : / mmHG Vent. Rate : 116 BPM Atrial Rate : 375 BPM P-R Int : 000 ms QRS Dur : 072 ms QT Int : 332 ms P-R-T Axes : 000 035 043 degrees QTc Int : 461 ms ATRIAL FLUTTER WITH VARIABLE A-V BLOCK NONSPECIFIC ST ABNORMALITY ABNORMAL ECG Confirmed by LUIS E ELIZABETH MD ([id number]) on 08/19/2018 12:46:24 PM Referred By: Confirmed By:LUIS E ELIZABETH MD
--- NOTE | 2018-08-19 13:02 | PN ---
Progress Note (short form) - Note Progress Note: frustrated with prolonged hospital stay and how sick she is. denies CP, SOB, fever, chills, N/V/C/D Current Medications Generic Name Dose Route Start Last Admin Trade Name Freq PRN Reason Stop Dose Admin Budesonide/Formoterol Fumarate 2 puff 08/11/18 22:00 08/19/18 10:58 Symbicort 160/4.5mcg - IH Not Given BID LISA Nafcillin Sodium 2 gm/ 100 mls @ 100 mls/hr 08/14/18 10:45 08/19/18 09:28 Dextrose IVPB 100 mls/hr Q4H-IV LISA Administration Protocol Potassium Chloride/Sodium Chloride 20 meq in 1,000 mls @ 75 mls/hr 08/19/18 10 :30 08/19/18 10:48 1/2ns+20meq Kcl IV 75 mls/hr ASDIR LISA Administration Insulin Aspart 1 vial 08/11/18 22:00 08/19/18 11:49 Novolog Vial Sliding Scale - SQ Not Given ACHS LISA Protocol Methylprednisolone Sodium Succinate 20 mg 08/16/18 12:03 08/19/18 09:27 Solu-Medrol - IVPUSH 20 mg DAILY LISA Administration Metoprolol Tartrate 5 mg 08/14/18 14:47 08/19/18 11:43 Lopressor Injection - IVPUSH 5 mg Q4H PRN Administration TACHYCARDIA Metoprolol Tartrate 50 mg 08/19/18 14:00 Lopressor - NGT TID LISA Morphine Sulfate 1 mg 08/19/18 08:04 Morphine Sulfate IVPUSH Q3H PRN PAIN LEVEL 1 - 3 Ondansetron HCl 4 mg 08/11/18 16:43 Zofran Injection IVPUSH Q6H PRN NAUSEA AND/OR VOMITING Pantoprazole Sodium 20 mg 08/12/18 10:00 08/19/18 09:28 Protonix - PO 20 mg DAILY LISA Administration Polyethylene Glycol 17 gm 08/11/18 22:00 08/19/18 09:28 Miralax (For Daily Use) - PO Not Given BID LISA Senna 2 tab 08/11/18 22:00 08/18/18 21:13 Senna - PO Not Given HS LISA Sodium Chloride 2 spray 08/12/18 13:26 08/12/18 15:14 [place] Nasal [place] - NS 2 spray BID PRN Administration NASAL CONGESTION Last Vital Signs Temp Pulse Resp BP Pulse Ox 99.5 F 155 H 28 H 135/65 95 08/19/18 10:00 08/19/18 11:43 08/19/18 10:00 08/19/18 11:43 08/19/18 10:00 Intake & Output 08/16/18 08/17/18 08/18/18 08/19/18 23:59 23:59 23:59 23:59 Intake Total 1500 1964 1095 770 Output Total 1050 2800 1445 500 Balance 450 -836 -350 270 Weight 164 lb 3.91 oz 164 lb 2 oz General alert, confused to course of events but oriented to self and place CV S1 S2 tachy irregular Lungs decreased breath sounds anteriorly. no wheezing, poor inspiratory effort Abdomen soft +suprapubic tenderness no distention. BS + Extremities RUE is has diffuse swelling. no tenderness noted. no phlebitis seen. trace pedal edema CBCD WBC 13.7 K/mm3 (4.0-10.0) H 08/19/18 05:30 RBC 3.41 M/mm3 (3.60-5.2) L 08/19/18 05:30 Hgb 7.5 GM/dL (10.7-15.3) L 08/19/18 05:30 Hct 24.4 % (32.4-45.2) L 08/19/18 05:30 MCV 71.5 fl (80-96) L 08/19/18 05:30 MCHC 30.7 g/dl (32.0-36.0) L 08/19/18 05:30 RDW 22.0 % (11.6-15.6) H 08/19/18 05:30 Plt Count 175 K/MM3 (134-434) 08/19/18 05:30 MPV 8.9 fl (7.5-11.1) 08/19/18 05:30 CMP Sodium 148 mmol/L (136-145) H 08/19/18 05:30 Potassium 2.9 mmol/L (3.5-5.1) L* 08/19/18 05:30 Chloride 108 mmol/L (98-107) H 08/19/18 05:30 Carbon Dioxide 32 mmol/L (21-32) 08/19/18 05:30 Anion Gap 8 MMOL/L (8-16) 08/19/18 05:30 BUN 34 mg/dL (7-18) H 08/19/18 05:30 Creatinine 0.8 mg/dL (0.55-1.3) 08/19/18 05:30 Creat Clearance w eGFR > 60 (>60) 08/19/18 05:30 Calcium 7.9 mg/dL (8.5-10.1) L 08/19/18 05:30 Total Bilirubin 0.8 mg/dL (0.2-1) 08/14/18 05:30 AST 23 U/L (15-37) 08/14/18 05:30 ALT 15 U/L (13-61) 08/14/18 05:30 Alkaline Phosphatase 73 U/L (45-117) 08/14/18 05:30 Total Protein 5.7 g/dl (6.4-8.2) L 08/14/18 05:30 Albumin 2.0 g/dl (3.4-5.0) L 08/14/18 05:30 Microbiology 08/15/18 05:40 Blood Culture - Preliminary Blood - Peripheral Venous NO GROWTH OBTAINED AFTER 96 HOURS, INCUBATION TO CONTINUE FOR 1 DAYS. 08/15/18 05:30 Blood Culture - Preliminary Blood - Peripheral Venous NO GROWTH OBTAINED AFTER 96 HOURS, INCUBATION TO CONTINUE FOR 1 DAYS. 08/17/18 16:00 Blood Culture - Preliminary Blood - Central Line NO GROWTH OBTAINED AFTER 24 HOURS, INCUBATION TO CONTINUE FOR 4 DAYS. 08/17/18 16:00 Blood Culture - Preliminary Blood - Central Line NO GROWTH OBTAINED AFTER 24 HOURS, INCUBATION TO CONTINUE FOR 4 DAYS. 08/16/18 12:30 Urine Culture - Final Urine - Urine Nephrostomy Tube Right NO GROWTH OBTAINED 08/16/18 12:30 Urine Culture - Final Urine - Urine Nephrostomy Tube Left NO GROWTH OBTAINED ASSESSMENT AND PLAN: 81 yo F with PMhx of sarcoidosis diagnosed in 1985, Chronic diastolic HF, severe pulmonary HTN, COPD on 2L home oxygen, AFib on eliquis, HTN, HLD, frequent admissions with CHF/respiratory distress admitted with acute hypercapneic/hypoxic respiratory failure, CHF exaerbation. Course complicated by development of hematuria. Cystoscopy was done where pt developed hypotension requiring pressors and was placed iN ICU. 1. Acute hypercapneic/hypoxic respiratory failure-due to CHF and COPD exacerbation. on bipap overnight.currently saturating well on 2L [place]. medrol 20mg daily. chest pt, Nebs and inhalers. pulmonary and cardio on board 2. Acute diastolic heart failure exacerbation- remains volume overloaded but diuresing well into nephrostomy tubes. would hold fluids and lasix at this time. Monitor electrolytes, daily weights, cardio on board 3. Hemorrhagic cystitis- continues to have scant hematuria. hematuria noted in bag. monitor output 4. Acute Blood loss anemia- due to hemorrhagic cystitis with sangenous drainage from nephrostomy tubes. total of 1 units PRBC this hospital stay. transfuse as needed 5. Hypokalemia- replete. repeat later today 6. RUE swelling- possible is infiltration from IV line. no signs of infection. doppler neg for DVT. elevate extremity. 7. Hypoglycemia- due to poor oral intake. advancing diet today as mental status has improved. can consider d/c enteral feeds once eating enough. BGM to monitor 8. Acute metabolic toxic encephalopathy- alert but confused about time events. 9. SANAM- due to hypoperfusion. s/p B/L nephrostomy tubes 08/16 with good UOP. monitor for post-obstructive diuresis. renal on board. avoid nephrotoxic agents. no eosinophilia 10. Hypernatremia- due to poor oral intake. started on 1/2NS 11. Tropinemia- TNI peaked at 2. likely due to hypoperfusion from procedure. no indication for workup at this time. medical management 12. afib-rate uncontrolled. metoprolol increased this am. Metoprolol IVP prn. holding eliquis. cardio on board. 13. MSSA Bacteremia-with urine also showing MSSA. echo negative for endocarditis. on nafcillin day 6. repeat Cx NGTD. ID on board 14. 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 Sarcoidosis 17. COPD on 2L home oxygen 18. HTN- currently hypotensive. hold antihypertensive agents 19. dyslipidemia 10. DVT ppx- SCD 21. goals of care conversation yesterday between palliative care RN and grandchildren, DNR/DNI 22. stable for transfer to [facility] for continuous cardiac monitoring The care of this patient involved high complexity decision making to prevent further life threatening deterioration of the patient's condition and/or to evaluate & treat vital organ system(s) failure or risk of failure. 35 mins Visit type - Emergency Visit Emergency Visit: Yes ED Registration Date: 07/25/18 Care time: The patient presented to the Emergency Department on the above date and was hospitalized for further evaluation of their emergent condition. - New Patient This patient is new to me today: No - Critical Care Critical Care patient: Yes Total Critical Care Time (in minutes): 35 Critical Care Statement: The care of this patient involved high complexity decision making to prevent further life threatening deterioration of the patient 's condition and/or to evaluate & treat vital organ system(s) failure or risk of failure. - Discharge Referral Referred to [facility] No
[2018-08-19] MEDS: METOPROLOL TARTRATE 50 MG TABLET (FP) NGT SCH ×2 (13:26→21:25)
[2018-08-19] MEDS ORDERED: KCL 10 MEQ IVPB 10 MEQ/100 ML INFUS.BAG IVPB SCH (20:15)
[2018-08-19] MEDS: SENNOSIDES 8.6MG TABLET (FP) PO SCH (21:24)
[2018-08-20] MEDS ORDERED: METOPROLOL TARTRATE 5 MG/5 ML VIAL IVPUSH PRN (00:57)
[2018-08-20] MEDS ORDERED: ONDANSETRON 4 MG/2 ML VIAL IVPUSH PRN (00:57)
[2018-08-20] MEDS ORDERED: MORPHINE SULFATE 2 MG/ML VIAL IVPUSH PRN (00:57)
[2018-08-20] MEDS ORDERED: SODIUM CHLORIDE NASAL SPRAY 44 ML BOTTLE NS PRN (00:57)
[2018-08-20] MEDS: SODIUM CHLORIDE 0.45%/POT 20 MEQ/1,000 ML INFUS.BAG IV SCH (01:20)
[2018-08-20] MEDS: NAFCILLIN - 2 GM in DEXTROSE 5%-WATER - 100 ML IVPB SCH ×6 (01:20→21:33)
[2018-08-20] MEDS: METOPROLOL TARTRATE 50 MG TABLET (FP) NGT SCH ×3 (05:32→21:34)
[2018-08-20] MEDS: INSULIN SLIDING SCALE (NOVOLOG) 1 VIAL SQ SCH ×4 (06:13→21:32)
[2018-08-20 06:28] LABS: ALBUMIN 1.3 g/dl (3.4-5.0); ALK PHOS 77 U/L (45-117); ANION GAP 7 MMOL/L (8-16); BILIRUBIN,TOTAL 1.1 mg/dL (0.2-1); BLOOD UREA NITROGEN 24 mg/dL (7-18); CALCIUM 7.7 mg/dL (8.5-10.1); CHLORIDE 106 mmol/L (98-107); CO2 31 mmol/L (21-32); CREATININE 0.5 mg/dL (0.55-1.3); GLUCOSE,RANDOM 123 mg/dL (74-106); MAGNESIUM 1.4 mg/dL (1.8-2.4); PHOSPHOROUS 1.7 mg/dL (2.5-4.9); POTASSIUM 3.4 mmol/L (3.5-5.1); SGOT/AST 17 U/L (15-37); SGPT/ALT 8 U/L (13-61); SODIUM 144 mmol/L (136-145); TOT PROT 4.6 g/dl (6.4-8.2)
[2018-08-20 07:19] LABS: HEMATOCRIT 23.2 % (32.4-45.2); MCH 24.4 pg (25.7-33.7); MCHC 34.2 g/dl (32.0-36.0); MEAN CELL VOLUME 71.3 fl (80-96); MEAN PLT VOLUME 8.8 fl (7.5-11.1); PLATELET COUNT 194 K/MM3 (134-434); RBC 3.26 M/mm3 (3.60-5.2); RDW 21.8 % (11.6-15.6); WHITE BLOOD COUNT 9.8 K/mm3 (4.0-10.0)
[2018-08-20] MEDS ORDERED: PT OWN MED DRAWER 7, Y5N ONE ×4 (08:19→22:41)
[2018-08-20] MEDS: POLYETHYLENE GLYCOL 3350 119 GM BTL PO SCH ×2 (09:28→21:32)
[2018-08-20] MEDS: methylPREDNISolone NA SUCC 40 MG/1 ML VIAL IVPUSH SCH (09:28)
[2018-08-20] MEDS: BUDESONIDE/FORMETEROL FUMARATE 160/4.5 mcg INHALER IH SCH ×2 (09:29→21:33)
[2018-08-20] MEDS: PANTOPRAZOLE 20 MG TABLET (FP) PO SCH (09:29)
--- NOTE | 2018-08-20 09:55 | PN ---
Physical Exam: SUBJECTIVE: Patient seen and examined at bedside. No acute complaints. Not SOB, NGT is in draining 100cc dark fluid. OBJECTIVE: Vital Signs Period Temp Pulse Resp BP Sys/Garza Pulse Ox Last 24 Hr 97.6 F-99.5 F 100-158 17-28 108-136/56-89 97-97 GENERAL: A&Ox3, no acute distress EYES: PERRLA, EOMI ENT: Moist mucus membranes NECK: No JVD LUNGS: CTA, no wheezes HEART: RRR, no murmurs ABDOMEN: Soft, nontender, BS present MUSCULOSKELETAL: No CVA Tenderness EXTREMITIES: 2+ pulses, no edema. NEUROLOGICAL: Cranial nerves II-XII intact. Laboratory Results - last 24 hr 08/19/18 08/19/18 08/20/18 05:39 21:08 05:30 WBC 9.8 RBC 3.26 L Hgb 8.0 L Hct 23.2 L MCV 71.3 L MCH 24.4 L D MCHC 34.2 RDW 21.8 H Plt Count 194 MPV 8.8 Sodium Potassium Chloride Carbon Dioxide Anion Gap BUN Creatinine Creat Clearance w eGFR POC Glucometer [phone] Random Glucose Calcium Phosphorus Magnesium Total Bilirubin AST ALT Alkaline Phosphatase Total Protein Albumin 08/20/18 05:30 WBC RBC Hgb Hct MCV MCH MCHC RDW Plt Count MPV Sodium 144 Potassium 3.4 L Chloride 106 Carbon Dioxide 31 Anion Gap 7 L BUN 24 H Creatinine 0.5 L Creat Clearance w eGFR > 60 POC Glucometer Random Glucose 123 H Calcium 7.7 L Phosphorus 1.7 L Magnesium 1.4 L Total Bilirubin 1.1 H AST 17 ALT 8 L Alkaline Phosphatase 77 Total Protein 4.6 L Albumin 1.3 L Active Medications Generic Name Dose Route Start Last Admin Trade Name Freq PRN Reason Stop Dose Admin Budesonide/Formoterol Fumarate 2 puff 08/20/18 10:00 08/20/18 09:29 Symbicort 160/4.5mcg - IH Not Given BID LISA Nafcillin Sodium 2 gm/ 100 mls @ 100 mls/hr 08/20/18 02:00 08/20/18 09:28 Dextrose IVPB 100 mls/hr Q4H-IV LISA Administration Protocol Potassium Chloride/Sodium Chloride 20 meq in 1,000 mls @ 75 mls/hr 08/20/18 00 :57 11/04/18 01:20 EST 1/2ns+20meq Kcl IV 75 mls/hr ASDIR LISA Administration Insulin Aspart 1 vial 08/20/18 07:00 08/20/18 06:13 Novolog Vial Sliding Scale - SQ 2 units ACHS LISA Administration Protocol Methylprednisolone Sodium Succinate 20 mg 08/20/18 10:00 08/20/18 09:28 Solu-Medrol - IVPUSH 20 mg DAILY LISA Administration Metoprolol Tartrate 50 mg 08/20/18 06:00 08/20/18 05:32 Lopressor - NGT 50 mg TID LISA Administration Metoprolol Tartrate 5 mg 08/20/18 00:57 08/20/18 08:37 Lopressor Injection - IVPUSH 5 mg Q4H PRN Administration TACHYCARDIA Morphine Sulfate 1 mg 08/20/18 00:57 Morphine Sulfate IVPUSH Q3H PRN PAIN LEVEL 1 - 3 Ondansetron HCl 4 mg 08/20/18 00:57 Zofran Injection IVPUSH Q6H PRN NAUSEA AND/OR VOMITING Pantoprazole Sodium 20 mg 08/20/18 10:00 08/20/18 09:29 Protonix - PO 20 mg DAILY LISA Administration Polyethylene Glycol 17 gm 08/20/18 10:00 08/20/18 09:28 Miralax (For Daily Use) - PO Not Given BID LISA Senna 2 tab 08/20/18 22:00 Senna - PO HS LISA Sodium Chloride 2 spray 08/20/18 00:57 [place] Nasal [place] - NS BID PRN NASAL CONGESTION ASSESSMENT/PLAN: 87 yo female with PMH of a-fib (rate controlled, on eliquis), CHF, COPD (on 2L home o2), HTN, pulmonary HTN, presented to the ED with complaint of SOB with a cough productive of clear sputum for 2 days and admitted for the treatment of CHF exacerbation #Acute hypercapnic hypoxic respiratory distress: resolving, patient had a likely exacerbation 2/2 CHF and COPD -Patient is back on 2L O2 nasal cannula, her home dose, and is saturating at -Duonebs scheduled QID; albuterol PRN -Continue pulmicort inhaler -on home 2L nasal cannula -continue daily weights -BiPap PRN -continue 20 medrol, will likely switch to PO tomorrow #Hematuria: s/p b/l nephrostomy tubes with good output, continue to monitor - not currently having hematuria -monitor H&H #MSSA Bacteremia: improved -cultures no longer + since 08/17/18 -continue nafcillin day 04/29 #SANAM: likely 2/2 obstruction - improved after b/l nephrostomy placement -Renal Dr Del Angel on board -Monitor urine output/Creatinine #Atrial fibrillation: stable -metoprolol NGT 50 TID - can likely remove NGT today -Echo--> EF 60-65%, moderately to severe LA Dilation. -LE Dopplers negative for any DVT May need CEDRIC if persistently bacteremic Dr Hackett on board. Fluids D/C'ed due to fluid overload. #Sarcoidosis: chronic -Already on steroids for above problems, continue steroids. #HLD: stable -Continue Lipitor FEN: No standing fluids Monitor electrolytes Pureed diet Prophylaxis: Eliquis on hold for bleeding GI - Protonix 20mg qDaily Disposition -Likely transfer to med-surg today Visit type - Emergency Visit Emergency Visit: No - New Patient This patient is new to me today: No - Critical Care Critical Care patient: Yes Total Critical Care Time (in minutes): 41 Critical Care Statement: The care of this patient involved high complexity decision making to prevent further life threatening deterioration of the patient 's condition and/or to evaluate & treat vital organ system(s) failure or risk of failure.
[2018-08-20] MEDS ORDERED: FUROSEMIDE 40 MG/4 ML INJECTABLE VIAL IVPUSH ONE (10:35)
--- NOTE | 2018-08-20 10:47 | PN ---
Progress Note (short form) - Note Progress Note: Chief Complaint: resp failure, hypotension History of Present Illness: no chest pain, palps, dizzy, lightheadedness = Current Medications Budesonide/Formoterol Fumarate (Symbicort 160/4.5mcg -) 2 puff IH BID [facility] Last Admin: 08/20/18 09:29 Dose: Not Given Nafcillin Sodium 2 gm/ (Dextrose) 100 mls @ 100 mls/hr IVPB Q4H-IV [facility]; Protocol Last Admin: 08/20/18 09:28 Dose: 100 mls/hr Potassium Chloride/Sodium Chloride (1/2ns+20meq Kcl) 20 meq in 1,000 mls @ 75 mls/hr IV ASDIR [facility] Last Admin: 08/20/18 01:20 EST Dose: 75 mls/hr Insulin Aspart (Novolog Vial Sliding Scale -) 1 vial SQ ACHS [facility]; Protocol Last Admin: 08/20/18 06:13 Dose: 2 units Methylprednisolone Sodium Succinate (Solu-Medrol -) 20 mg IVPUSH DAILY [facility] Last Admin: 08/20/18 09:28 Dose: 20 mg Metoprolol Tartrate (Lopressor -) 50 mg NGT TID [facility] Last Admin: 08/20/18 05:32 Dose: 50 mg Metoprolol Tartrate (Lopressor Injection -) 5 mg IVPUSH Q4H PRN PRN Reason: TACHYCARDIA Last Admin: 08/20/18 08:37 Dose: 5 mg Morphine Sulfate (Morphine Sulfate) 1 mg IVPUSH Q3H PRN PRN Reason: PAIN LEVEL 1 - 3 Ondansetron HCl (Zofran Injection) 4 mg IVPUSH Q6H PRN PRN Reason: NAUSEA AND/OR VOMITING Pantoprazole Sodium (Protonix -) 20 mg PO DAILY [facility] Last Admin: 08/20/18 09:29 Dose: 20 mg Polyethylene Glycol (Miralax (For Daily Use) -) 17 gm PO BID [facility] Last Admin: 08/20/18 09:28 Dose: Not Given Senna (Senna -) 2 tab PO HS [facility] Sodium Chloride ([place] Nasal [place] -) 2 spray NS BID PRN PRN Reason: NASAL CONGESTION - Objective Vital Signs: = Vital Signs Period Temp Pulse Resp BP Sys/Garza Pulse Ox Last 24 Hr 97.6 F-99.5 F 100-158 17-28 108-136/56-89 97-97 = Intake & Output 08/17/18 08/18/18 08/19/18 08/20/18 23:59 23:59 23:59 22:59 Intake Total 1964 1095 2920 1250 Output Total 2800 1445 900 650 Balance -836 -350 2020 600 Weight 164 lb 3.91 oz 164 lb 2 oz 169 lb 5 oz Constitutional: Yes: Well Nourished, No Distress, Calm Cardiovascular: Yes: Pulse Irregular, S1, S2. +JVD No: Gallop, Murmur Respiratory: Yes: Regular, + rales (anteriorly). No: Accessory Muscle Use Extremities: No: Cold Edema: No Neurological: Yes: Lethargy. No: Seizure Psychiatric: No: Agitated abd nd pos bs no jaundice diaphoresis CXR: improved aeration Echo 05/03: nl LVEF. mild RVE, mild-mod RV hypo. L/NEENA. mod MR/TR. RVSP at least 88 mmHg Echo 03/2017: Mild conc lvh. nl lv/rv size/fn, mod ronnie, mod mr, mod tr, rvsp 40- 50 EKG: afib with PVCs tele: afib, vr low 120s-130s with episodes of RVR to 160s est cct 35 mins Assessment/Plan hypotension, NSTEMI, staph bacteremia: -periop hypotension 08/11 during cysto, briefly on pressors. likely due to bacteremia, overdiuresis -trop 2.0 the following day, trended down, likely Type II AK sec to hypoperfusion/sepsis (+/- underlying stable CAD). ECG 08/[address]ressions inferior leads, improved on 08/12 tracing--cannot exclude Type I AK at time of events. -AC initially held for gross hematuria with large clots/hydronephrosis, was back on eliquis and now stopped again due to hematuria. defer aspirin -BB and afib HR control as doing, hemodynamically stable - IV metoprolol as not taking PO consistently -consider risk stratification MPI once clinically stable (if will change med mgmt approach) -defer invasive CAD mgmt approach given Type II AK > Type I here, plus pt's poor functional status with competing mortality limitations from severe lung dz , low likelihood to improve prognosis, and risks > benefits (including bleeding , AIN) SANAM: -s/p b/l perc nephrostomy, cr improved now -renal ultrasound shows raad hydronephrosis, urology following -holding lasix -renal following afib: -Rapid rates noted on tele, increased metoprolol to 50 mg TID yesterday, remains with high rates - digoxin 0.125 mg IV x 1 now, HR 140s - start digoxin 0.125 mg NGT daily - deferring calcium channel luz given concern about RV contractility depression (cor pulm pt) -eliquis stopped again due to hematuria acute resp failure with wheezing, acute exacerbation of copd/pulm sarcoid, acute diast CHF, cor pulmonale with RV failure -being tx'd with BDs, steroids O2 per pulm -CXR clear, BNP >7000, required bipap for increased work of breathing -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 initially 158 here. -cont lasix iv 80 bid -07/29: Creat 0.6 and weight down to 162, continue current lasix regimen -07/30: Creat 0.8, K 3.4, Wt 161. Continue current lasix regimen, replete K -07/31: 161 lbs. -08/01: wt 160 lbs, cont same -08/02-: appears euvolemic. was on lasix 40 qd at home. transitioned 80 iv bid to 80 qd -08/06: iv steroids continue and now dose increased. wt up a bit as well, restarted lasix 80 mg IV BID - 08/07-: weight continues to decrease, sob improving, Cr stable, still on IV steroids. Continue lasix 80 mg IV BID while on IV steroids. plan change to po lasix 80 daily when on po steroids. - 08/12: hypotensive during cystoscopy, looks dry clinically. SANAM this am. lasix on hold, gentle IVF--observe chf status closely - 08/13: lactic acidosis, + staph in BCx's the past 2 days, organism awaiting ID. renal fxn worsening significantly--incr IVF rate (125 cc/hr) - 08/14: remains non-edematous. CXR improved. renal fxn worsening rapidly. cont IVF - 08/15: Cr continues to rise, appears euvolemic. cont IVF, poor PO intake - 08/16:renal function continues to decline, appears overloaded. IVF rate cut back, dc IV fluids for now -08/17-2: s/p b/l perc nephrostomy, cr improved today - 08/19: stable volume status, cont to hold ivfs and lasix. - 08/20: appears more dyspneic, JVD on exam. lasix 40 mg IV x 1 given HTN: -bp controlled -cont current meds hematuria, obstruction with hydro: - cysto showed hemorrhagic cystitis with large amount of clot which was evacuated - CBI dc'ed per urology, reportedly hematuria again. eliquis stopped
[2018-08-20] MEDS ORDERED: FUROSEMIDE 40 MG/4 ML INJECTABLE VIAL ONE (11:52)
[2018-08-20] MEDS ORDERED: DIGOXIN 0.5 MG/2 ML AMPUL IVPUSH ONE (12:34)
--- NOTE | 2018-08-20 13:09 | PN ---
Teaching Attending Note Name of Resident: Ramon Luna ATTENDING PHYSICIAN STATEMENT I saw and evaluated the patient. I reviewed the resident's note and discussed the case with the resident. I agree with the resident's findings and plan as documented. SUBJECTIVE:states shes "ok" today. no complaints on breathing or pain OBJECTIVE: Last Vital Signs Temp Pulse Resp BP Pulse Ox 97.7 F 102 H 23 H 155/99 95 08/20/18 11:01 08/20/18 11:01 08/20/18 11:01 08/20/18 11:01 08/20/18 10:30 Intake & Output 08/17/18 08/18/18 08/19/18 08/20/18 23:59 23:59 23:59 22:59 Intake Total 1964 1095 2920 1370 Output Total 2800 1445 900 650 Balance -836 -350 2020 720 Weight 164 lb 3.91 oz 164 lb 2 oz 169 lb 5 oz General alert. slow to respond CV S1 S2 tachy irregular Lungs Coarse breath sounds Abdomen soft NT/ND obese Extremities trace pitting edema. RUE diffusely swollen but improved in the hand ASSESSMENT AND PLAN: 81 yo F with PMhx of sarcoidosis diagnosed in 1985, Chronic diastolic HF, severe pulmonary HTN, COPD on 2L home oxygen, AFib on eliquis, HTN, HLD, frequent admissions with CHF/respiratory distress admitted with acute hypercapneic/hypoxic respiratory failure, CHF exaerbation. Course complicated by development of hematuria. Cystoscopy was done where pt developed hypotension requiring pressors and was placed iN ICU. 1. Acute hypercapneic/hypoxic respiratory failure-due to CHF and COPD exacerbation. on bipap overnight.currently saturating well on 2L NC. medrol 20mg daily. chest pt, Nebs and inhalers. pulmonary and cardio on board 2. Acute diastolic heart failure exacerbation- remains volume overloaded but diuresing well into nephrostomy tubes. would hold fluids and lasix at this time. Monitor electrolytes, daily weights, cardio on board 3. Hemorrhagic cystitis- continues to have scant hematuria. hematuria noted in bag. monitor output 4. Acute Blood loss anemia- due to hemorrhagic cystitis with sangenous drainage from nephrostomy tubes. total of 1 units PRBC this hospital stay. transfuse as needed 5. Hypokalemia- replete. 6. RUE swelling- possible is infiltration from IV line. no signs of infection. doppler neg for DVT. elevate extremity. 7. Hypoglycemia- due to poor oral intake. tolerating puree diet. can d/c NGT and stop enteral feeds. encourage po intake. cont BGM monitoring for now. 8. Acute metabolic toxic encephalopathy- alert but confused about time events. 9. SANAM- due to hypoperfusion. s/p B/L nephrostomy tubes 08/16 with good UOP. renal function resolved. renal on board. avoid nephrotoxic agents. no eosinophilia 10. Hypernatremia- due to poor oral intake. now resolved. can d/c IVF 11. Tropinemia- TNI peaked at 2. likely due to hypoperfusion from procedure. no indication for workup at this time. medical management 12. afib-rate improved. titrate up medications as needed to optimize control. Metoprolol IVP prn. holding eliquis. cardio on board. 13. MSSA Bacteremia-with urine also showing MSSA. echo negative for endocarditis. on nafcillin day 6 from 1st negative BCx. ID on board 14. 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 Sarcoidosis 17. COPD on 2L home oxygen 18. HTN- currently hypotensive. hold antihypertensive agents 19. dyslipidemia 10. DVT ppx- SCD 21.DNR/DNI- stable for transfer to [facility] for continuous cardiac monitoring The care of this patient involved high complexity decision making to prevent further life threatening deterioration of the patient's condition and/or to evaluate & treat vital organ system(s) failure or risk of failure. 38 mins
[2018-08-20] MEDS ORDERED: DIGOXIN 0.5 MG/2 ML AMPUL ONE (13:39)
[2018-08-20] MEDS ORDERED: NAPH,MB-DB/K PH,MBDB POWDER PACKET PO ONE (14:27)
[2018-08-20] MEDS ORDERED: MAGNESIUM SULF 50% (8.12 MEQ/2 ML-1 GM VIAL) IVPB ONE (14:27)
[2018-08-20] MEDS: SENNOSIDES 8.6MG TABLET (FP) PO SCH (21:32)
[2018-08-21] MEDS: SODIUM CHLORIDE 0.45%/POT 20 MEQ/1,000 ML INFUS.BAG IV SCH (01:00)
[2018-08-21] MEDS: NAFCILLIN - 2 GM in DEXTROSE 5%-WATER - 100 ML IVPB SCH ×6 (01:35→22:02)
[2018-08-21] MEDS: METOPROLOL TARTRATE 50 MG TABLET (FP) NGT SCH ×3 (06:15→22:01)
[2018-08-21] MEDS: INSULIN SLIDING SCALE (NOVOLOG) 1 VIAL SQ SCH ×4 (06:16→22:13)
--- NOTE | 2018-08-21 09:04 | PN ---
Teaching Attending Note Name of Resident: Marco A Colon ATTENDING PHYSICIAN STATEMENT I saw and evaluated the patient. I reviewed the resident's note and discussed the case with the resident. I agree with the resident's findings and plan as documented. SUBJECTIVE:feeling slightly better today. breathing is more comfortable. does not feel like her heart is racing. denies cp, SOB, fever, chills, cough, N/v/C/D OBJECTIVE: Last Vital Signs Temp Pulse Resp BP Pulse Ox 98.5 F 115 H 18 90/61 96 08/21/18 05:00 08/21/18 05:00 08/21/18 05:00 08/21/18 05:00 08/20/18 22:00 Intake & Output 08/19/18 08/20/18 08/20/18 08/21/18 00:59 00:59 23:59 23:59 Intake Total 1115 Output Total 450 Balance 665 Weight 158 lb 2 oz General alert. slow to respond CV S1 S2 tachy irregular Lungs Coarse breath sounds Abdomen soft NT/ND obese Extremities no edema. RUE diffusely swollen but improved in the hand ASSESSMENT AND PLAN: 81 yo F with PMhx of sarcoidosis diagnosed in 1985, Chronic diastolic HF, severe pulmonary HTN, COPD on 2L home oxygen, AFib on eliquis, HTN, HLD, frequent admissions with CHF/respiratory distress admitted with acute hypercapneic/hypoxic respiratory failure, CHF exaerbation. Course complicated by development of hematuria. Cystoscopy was done where pt developed hypotension requiring pressors and was placed iN ICU. 1. Acute hypercapneic/hypoxic respiratory failure-due to CHF and COPD exacerbation. on bipap overnight.currently saturating well on 2L NC. medrol 20mg daily. chest pt, Nebs and inhalers. pulmonary and cardio on board 2. Acute diastolic heart failure exacerbation- close to euvolemic but would hold lasix given low BP. received dose yesterday. good UOP into nephrostom tubes. Monitor electrolytes, daily weights, cardio on board 3. Hemorrhagic cystitis- possible due to trauma and UTI. continues to have hematuria from rodriguez. will request Uro to re-evaluate if anything else needs to be done at this time. cont to treat. 4. Acute Blood loss anemia- due to hemorrhagic cystitis with sangenous drainage from nephrostomy tubes. total of 1 units PRBC this hospital stay. transfuse as needed 5. Hypokalemia- KCl in IVF. awaiting todays labs 6. RUE swelling- infiltration from IV line. no signs of infection. doppler neg for DVT. elevate extremity. 7. Hypoglycemia- due to poor oral intake. overall improved. diet is improving and pt seen eating >25% of breakfast. speech and swallow eval to advance diet. cont BGM monitoring for now. 8. Acute metabolic toxic encephalopathy- alert but confused about time events. mental status slowly improving. no longer confused but is weaker than baseline. 9. SANAM- due to obstructive uropathy and hypotension- s/p nephrostomy tubes with good UOP. renal function resolved. renal on board. avoid nephrotoxic agents. no eosinophilia 10. Hypernatremia- due to poor oral intake. awaiting todays labs 11. Tropinemia- TNI peaked at 2. likely due to hypoperfusion from procedure. no indication for workup at this time. medical management 12. afib- intermittently tachycardia. started on digoxin yesterday. cont for now for improved rate control. on metoprolol. holding eliquis with hematuria. will consider starting hep ggt pending uro interventions Metoprolol IVP prn. cardio on board. 13. MSSA Bacteremia-with urine also showing MSSA. echo negative for endocarditis. on nafcillin day 7 from 1st negative BCx. wll need fdc ABx treatment. ID on board 14. 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 Sarcoidosis 17. COPD on 2L home oxygen 18. HTN- currently hypotensive. hold antihypertensive agents 19. dyslipidemia 20. DVT ppx- SCD 21.DNR/DNI, PT to re-assess today. and start mobilizing patient. RN to page team. will juan LIOR on discharge
[2018-08-21] MEDS: methylPREDNISolone NA SUCC 40 MG/1 ML VIAL IVPUSH SCH (09:33)
[2018-08-21] MEDS: DIGOXIN 0.125 MG TABLET (FP) PO SCH (09:33)
--- NOTE | 2018-08-21 09:33 | PN ---
Progress Note, Physician Chief Complaint: sob History of Present Illness: a little bit sob she says no cp/pressure no palpit, no swelling (SCDs on) ex cigs - Current Medication List Current Medications: Active Medications Budesonide/Formoterol Fumarate (Symbicort 160/4.5mcg -) 2 puff IH BID [facility] Last Admin: 08/20/18 21:33 Dose: 2 puff Digoxin (Lanoxin -) 0.125 mg PO DAILY [facility] Nafcillin Sodium 2 gm/ (Dextrose) 100 mls @ 100 mls/hr IVPB Q4H-IV [facility]; Protocol Last Admin: 08/21/18 06:21 Dose: 100 mls/hr Potassium Chloride/Sodium Chloride (1/2ns+20meq Kcl) 20 meq in 1,000 mls @ 75 mls/hr IV ASDIR [facility] Last Admin: 08/21/18 01:00 Dose: 75 mls/hr Insulin Aspart (Novolog Vial Sliding Scale -) 1 vial SQ ACHS [facility]; Protocol Last Admin: 08/21/18 06:16 Dose: Not Given Methylprednisolone Sodium Succinate (Solu-Medrol -) 20 mg IVPUSH DAILY [facility] Last Admin: 08/20/18 09:28 Dose: 20 mg Metoprolol Tartrate (Lopressor -) 50 mg NGT TID [facility] Last Admin: 08/21/18 06:15 Dose: 50 mg Metoprolol Tartrate (Lopressor Injection -) 5 mg IVPUSH Q4H PRN PRN Reason: TACHYCARDIA Last Admin: 08/20/18 08:37 Dose: 5 mg Morphine Sulfate (Morphine Sulfate) 1 mg IVPUSH Q3H PRN PRN Reason: PAIN LEVEL 1 - 3 Ondansetron HCl (Zofran Injection) 4 mg IVPUSH Q6H PRN PRN Reason: NAUSEA AND/OR VOMITING Pantoprazole Sodium (Protonix -) 20 mg PO DAILY [facility] Last Admin: 08/20/18 09:29 Dose: 20 mg Polyethylene Glycol (Miralax (For Daily Use) -) 17 gm PO BID [facility] Last Admin: 08/20/18 21:32 Dose: Not Given Senna (Senna -) 2 tab PO HS [facility] Last Admin: 08/20/18 21:32 Dose: Not Given Sodium Chloride ([place] -) 2 spray NS BID PRN PRN Reason: NASAL CONGESTION - Objective Vital Signs: Vital Signs Temperature 98.5 F 08/21/18 05:00 Pulse Rate 115 H 08/21/18 05:00 Respiratory Rate 18 08/21/18 05:00 Blood Pressure 90/61 08/21/18 05:00 O2 Sat by Pulse Oximetry (%) 96 08/20/18 22:00 Constitutional: Yes: No Distress, Calm Eyes: No: Sclera Icterus HENT: No: Nasal Congestion Cardiovascular: Yes: Pulse Irregular, S1, S2, Other (PMI non diplaced). No: JVD , Gallop, Murmur Respiratory: Yes: CTA Bilaterally, Diminished (bases), Rales (bases). No: Accessory Muscle Use Gastrointestinal: Yes: Normal Bowel Sounds, Soft. No: Tenderness Musculoskeletal: Yes: Other (No kyphosis) Extremities: No: Cold Edema: No (SCDs on) Integumentary: No: Jaundice Neurological: Yes: Alert, Oriented (x3) Psychiatric: No: Agitated Labs: CBC, BMP 08/20/18 05:30 08/20/18 05:30 INR, PTT INR 1.74 (0.83-1.09) H 08/16/18 09:25 Assessment/Plan Echo 05/03: nl LVEF. mild RVE, mild-mod RV hypo. L/NEENA. mod MR/TR. RVSP at least 88 mmHg Echo 03/2017: Mild conc lvh. nl lv/rv size/fn, mod ronnie, mod mr, mod tr, rvsp 40- 50 EKG: afib with PVCs CXR 08/19: stable bibasilar changes L > R tele: afib, mostly 90s-110s, briefly to 120s Assessment/Plan hypotension, NSTEMI, staph bacteremia: -periop hypotension 08/11 during cysto, briefly on pressors. likely due to bacteremia, overdiuresis -trop 2.0 the following day, trended down, likely Type II AK sec to hypoperfusion/sepsis (+/- underlying stable CAD). ECG 08/[address]ressions inferior leads, improved on 08/12 tracing--cannot exclude Type I AK at time of events. -AC initially held for gross hematuria with large clots/hydronephrosis, was back on eliquis and now stopped again due to hematuria. defer aspirin -BB and afib HR control as doing, hemodynamically stable - IV metoprolol as not taking PO consistently -consider risk stratification MPI once clinically stable (if will change med mgmt approach) -defer invasive CAD mgmt approach given Type II AK > Type I here, plus pt's poor functional status with competing mortality limitations from severe lung dz , low likelihood to improve prognosis, and risks > benefits (including bleeding , AIN) afib: - BPs soft at times. - HR control overall acceptable at present. 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 initially 158 here. -cont lasix iv 80 bid -07/29: Creat 0.6 and weight down to 162, continue current lasix regimen -07/30: Creat 0.8, K 3.4, Wt 161. Continue current lasix regimen, replete K -07/31: 161 lbs. -08/01: wt 160 lbs, cont same -08/02-: appears euvolemic. was on lasix 40 qd at home. transitioned 80 iv bid to 80 qd -08/06: iv steroids continue and now dose increased. wt up a bit as well, restarted lasix 80 mg IV BID - 08/07-: weight continues to decrease, sob improving, Cr stable, still on IV steroids. Continue lasix 80 mg IV BID while on IV steroids. plan change to po lasix 80 daily when on po steroids. - lasix held and IVF started 08/12 sec to SANAM, sepsis, hypotension. - 08/20: appears more dyspneic, JVD on exam--lasix resumed - 08/21: CXR with persistent effusions, likely 3rd spacing (albumin 1.3). renal fxn now normal. sbp 80s-90s, will likely require albumin along with lasix to diurese, will give trial today SANAM, hematuria with clots, obstructive uropathy with bilateral hydro: -renal fxn drastically improved s/p b/l perc nephrostomy--normal fxn now -renal following
[2018-08-21] MEDS: POLYETHYLENE GLYCOL 3350 119 GM BTL PO SCH ×2 (09:34→21:53)
[2018-08-21] MEDS: PANTOPRAZOLE 20 MG TABLET (FP) PO SCH (09:34)
[2018-08-21] MEDS ORDERED: PT OWN MED DRAWER 7, Y5N ONE ×5 (09:52→21:56)
[2018-08-21] MEDS: BUDESONIDE/FORMETEROL FUMARATE 160/4.5 mcg INHALER IH SCH ×2 (10:02→22:01)
--- NOTE | 2018-08-21 10:18 | PN ---
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,comfortable-resp distress - Current Medication List Current Medications: Active Medications Budesonide/Formoterol Fumarate (Symbicort 160/4.5mcg -) 2 puff IH BID [facility] Last Admin: 08/21/18 10:02 Dose: 2 puff Digoxin (Lanoxin -) 0.125 mg PO DAILY [facility] Last Admin: 08/21/18 09:33 Dose: 0.125 mg Nafcillin Sodium 2 gm/ (Dextrose) 100 mls @ 100 mls/hr IVPB Q4H-IV [facility]; Protocol Last Admin: 08/21/18 06:21 Dose: 100 mls/hr Potassium Chloride/Sodium Chloride (1/2ns+20meq Kcl) 20 meq in 1,000 mls @ 75 mls/hr IV ASDIR [facility] Last Admin: 08/21/18 01:00 Dose: 75 mls/hr Insulin Aspart (Novolog Vial Sliding Scale -) 1 vial SQ ACHS [facility]; Protocol Last Admin: 08/21/18 06:16 Dose: Not Given Methylprednisolone Sodium Succinate (Solu-Medrol -) 20 mg IVPUSH DAILY [facility] Last Admin: 08/21/18 09:33 Dose: 20 mg Metoprolol Tartrate (Lopressor -) 50 mg NGT TID [facility] Last Admin: 08/21/18 06:15 Dose: 50 mg Metoprolol Tartrate (Lopressor Injection -) 5 mg IVPUSH Q4H PRN PRN Reason: TACHYCARDIA Last Admin: 08/20/18 08:37 Dose: 5 mg Morphine Sulfate (Morphine Sulfate) 1 mg IVPUSH Q3H PRN PRN Reason: PAIN LEVEL 1 - 3 Ondansetron HCl (Zofran Injection) 4 mg IVPUSH Q6H PRN PRN Reason: NAUSEA AND/OR VOMITING Pantoprazole Sodium (Protonix -) 20 mg PO DAILY [facility] Last Admin: 08/21/18 09:34 Dose: 20 mg Polyethylene Glycol (Miralax (For Daily Use) -) 17 gm PO BID [facility] Last Admin: 08/21/18 09:34 Dose: Not Given Senna (Senna -) 2 tab PO HS [facility] Last Admin: 08/20/18 21:32 Dose: Not Given Sodium Chloride ([place] Nasal [place] -) 2 spray NS BID PRN PRN Reason: NASAL CONGESTION - Objective Vital Signs: Vital Signs Temperature 98.5 F 08/21/18 05:00 Pulse Rate 101 H 08/21/18 09:33 Respiratory Rate 18 08/21/18 05:00 Blood Pressure 90/61 08/21/18 05:00 O2 Sat by Pulse Oximetry (%) 96 08/20/18 22:00 Constitutional: Yes: No Distress, Calm, Thin Eyes: Yes: WNL HENT: Yes: WNL Neck: Yes: WNL Cardiovascular: Yes: Pulse Irregular, S1, S2 Respiratory: Yes: Wheezes (few wheezes bilaterally) Gastrointestinal: Yes: Normal Bowel Sounds, Soft Extremities: Yes: WNL Edema: No Labs: CBC, BMP Problem List - Problems (1) Acute on chronic respiratory failure with hypoxia and hypercapnia Code(s): J96.21 - ACUTE AND CHRONIC RESPIRATORY FAILURE WITH HYPOXIA; J96.22 - ACUTE AND CHRONIC RESPIRATORY FAILURE WITH HYPERCAPNIA (2) Acute CHF (congestive heart failure) Code(s): I50.9 - HEART FAILURE, UNSPECIFIED (3) Atrial fibrillation Code(s): I48.91 - UNSPECIFIED ATRIAL FIBRILLATION Qualifiers: Atrial fibrillation type: permanent Qualified Code(s): I48.2 - Chronic atrial fibrillation (4) Coronary artery disease Code(s): I25.10 - ATHSCL HEART DISEASE OF [place] CORONARY ARTERY W/O ANG PCTRS Qualifiers: Coronary Disease-Associated Artery/Lesion type: [place] artery [place] vs. transplanted heart: [place] heart Associated angina: without angina Qualified Code(s): I25.10 - Atherosclerotic heart disease of [place] coronary artery without angina pectoris (5) Hypertension Code(s): I10 - ESSENTIAL (PRIMARY) HYPERTENSION Qualifiers: Hypertension type: essential hypertension Qualified Code(s): I10 - Essential (primary) hypertension (6) Pulmonary HTN Code(s): I27.20 - PULMONARY HYPERTENSION, UNSPECIFIED (7) Sarcoidosis Code(s): D86.9 - SARCOIDOSIS, UNSPECIFIED (8) Shortness of breath Code(s): R06.02 - SHORTNESS OF BREATH Assessment/Plan ASSESSMENT AND PLAN: Acute on Chronic Hypoxic and Hypercapneic Respiratory Failure clinically improving Acute on Chronic Diastolic Heart Failure COPD Sarcoidosis Severe Pulmonary HTN Atrial Fibrillation HTN Hyperlipidemia Hematuria - monitor urine output, creatinine - daily weights - O2 to keep SpO2>90% - inhaled bronchodilators - rate control - abx - medrol DR ALBERT
[2018-08-21 10:22] LABS: HEMATOCRIT 23.4 % (32.4-45.2); HEMOGLOBIN 7.7 GM/dL (10.7-15.3); MCH 23.8 pg (25.7-33.7); MCHC 32.9 g/dl (32.0-36.0); MEAN CELL VOLUME 72.2 fl (80-96); MEAN PLT VOLUME 8.1 fl (7.5-11.1); PLATELET COUNT 194 K/MM3 (134-434); RBC 3.24 M/mm3 (3.60-5.2); RDW 22.8 % (11.6-15.6); WHITE BLOOD COUNT 12.5 K/mm3 (4.0-10.0)
[2018-08-21 11:13] LABS: ANION GAP 9 MMOL/L (8-16); BLOOD UREA NITROGEN 21 mg/dL (7-18); CALCIUM 7.2 mg/dL (8.5-10.1); CHLORIDE 100 mmol/L (98-107); CO2 32 mmol/L (21-32); CREATININE 0.6 mg/dL (0.55-1.3); GLUCOSE,RANDOM 183 mg/dL (74-106); MAGNESIUM 1.5 mg/dL (1.8-2.4); PHOSPHOROUS 1.8 mg/dL (2.5-4.9); POTASSIUM 3.3 mmol/L (3.5-5.1); SODIUM 141 mmol/L (136-145)
--- NOTE | 2018-08-21 12:15 | CONSULT ---
Admitting History and Physical - Primary Care Physician PCP: Denice Mariscal - Admission History of Present Illness: 81 yo F with PMhx of sarcoidosis diagnosed in 1985, Chronic diastolic HF, severe pulmonary HTN, COPD on 2L home oxygen, AFib on eliquis, HTN, HLD, frequent admissions with CHF/respiratory distress admitted with acute hypercapneic/hypoxic respiratory failure, CHF exaerbation. Started on puree on 08/19/18. Acute hypercapneic/hypoxic respiratory failure-due to CHF and COPD exacerbation Selected Entries 08/20/18 08/20/18 08/20/18 02:00 06:00 11:01 Breakfast 50% Lunch Supper Temperature 98.9 F 97.6 F 08/20/18 08/20/18 08/20/18 12:00 14:00 14:56 Breakfast Lunch Supper Temperature 97.7 F 98.2 F 98.2 F 08/20/18 08/20/18 08/20/18 15:49 16:00 17:00 Breakfast Lunch 50% Supper Temperature 98.0 F 98 F 08/20/18 08/20/18 08/21/18 21:00 22:00 01:45 Breakfast Lunch Supper 50% Temperature 98.4 F 98.2 F 08/21/18 08/21/18 08/21/18 05:00 09:00 10:28 Breakfast 75% Lunch Supper Temperature 98.5 F 98.1 F Laboratory Tests 08/20/18 08/21/18 05:30 10:00 WBC 9.8 12.5 H Started on puree/thin liquid on 08/19. Limitations to Obtaining History: Clinical Condition (Lethargic, weak, arousable but not for long.) - Past Medical History FIG CAPRIFIER: Yes: Vertigo (intermittent) Cardiovascular: Yes: AFIB, CHF, HTN, Hyperlipdemia, Pulmonary Hypertension, Other (Sarcoidosis) Pulmonary: Yes: Asthma, COPD Renal/: Yes: Hematuria ...: No Psych: Yes: Depression - Past Surgical History Past Surgical History: Yes: Cholecystectomy, Hysterectomy - Smoking History Smoking history: Never smoked Have you smoked in the past 12 months: No Aproximately how many cigarettes per day: 0 - Alcohol/Substance Use Hx Alcohol Use: No History of Substance Use: reports: None - Social History History of Recent Travel: No History - Admission Reason For Visit: CHF - Diagnostics X-ray: Report Reviewed - General Mental Status: Awake and Alert, Able to Follow Commands, Flat Affect, Lethargic Attention: Distractible, Moderate Impairment Ability to Follow Directions: Fair Head/Neck Control: Fair - Hearing Hearing: Normal Hearing Aide: No Speech Evaluation - Communication Primary Language: CZECH Communication: Yes: Simple Responses (weak) - Speech Production Able to Make Needs Known: Yes: Mildly Impaired Intelligibility: Yes: Mildly Impaired - Speech Characteristics Voice Loudness: Mildly Soft/Quiet Voice Pitch: Yes: Mildly High, Pitch Breaks Voice Phonatory-based Quality: Yes: Dysphonia Nasal Resonance: Normal Articulation: Yes: Imprecise - Swallow Evaluation/Bedside Assessment Current Nutritional Intake: Dysphagia Pureed, Thin Liquids Oral Secretions: Yes: WFL Dentition: Yes: Edentulous (lower), Dental Appliance Upper Facial Symmetry at Rest: Symmetrical Against Resistance Opening: Weak Against Resistance Closing: Weak Pucker Lips: Weak Smile: Weak Lingual Movement: Symmetric Lingual Speed of Movement: Reduced Lingual Movement Strgth Against Opposition: Reduced Lingual Movement Characteristics: Normal Laryngeal Elevation: WFL Laryngeal Movement: Able to Palpate Rate of Intake: WFL Bolus Size: WFL Labial Seal: WFL Chewing: WFL (slow, but repeatedly fell asleep.) Oral Prep Time: WFL A-P Transit: WFL Pocketing: None Timing of Swallow: Delayed Coughing/Throat Clear: No Change in Voice: No Recommendations - Speech Evaluation, Impression/Plan Impression: Brisk but delayed swallow. (-) 3 oz water test. Wants reg food. Edentulous lowers. Says she has dentures.To lethargic to tolerate eg food at this time. - Dysphagia Impressions/Plan *Silent aspiration: cannot be R/O at bedside Dysphagia Treatment Plan: Chin Tuck/Down, Clear Pocket Food, Safe Rate, 1/2 tsp. at a time, Elevate HOB during feed, Other (Arouse pt fully before each bite /sip. To upgrade diet as pt becomes stronger and more alert) - Recommendations Diet Consistency: Other (Chopped diet) Liquids: Thin Liquids Supplement: Ensure, Magic Cup
--- NOTE | 2018-08-21 13:35 | PN ---
Progress Note, Physician History of Present Illness: Pt seen and examined at bedside. She is able to answer simple questions. She denies shortness of breath. - Current Medication List Current Medications: Active Medications Budesonide/Formoterol Fumarate (Symbicort 160/4.5mcg -) 2 puff IH BID [facility] Last Admin: 08/21/18 10:02 Dose: 2 puff Digoxin (Lanoxin -) 0.125 mg PO DAILY [facility] Last Admin: 08/21/18 09:33 Dose: 0.125 mg Nafcillin Sodium 2 gm/ (Dextrose) 100 mls @ 100 mls/hr IVPB Q4H-IV [facility]; Protocol Last Admin: 08/21/18 12:20 Dose: 100 mls/hr Potassium Chloride/Sodium Chloride (1/2ns+20meq Kcl) 20 meq in 1,000 mls @ 75 mls/hr IV ASDIR [facility] Last Admin: 08/21/18 01:00 Dose: 75 mls/hr Insulin Aspart (Novolog Vial Sliding Scale -) 1 vial SQ ACHS [facility]; Protocol Last Admin: 08/21/18 12:21 Dose: 2 units Metoprolol Tartrate (Lopressor -) 50 mg NGT TID [facility] Last Admin: 08/21/18 06:15 Dose: 50 mg Metoprolol Tartrate (Lopressor Injection -) 5 mg IVPUSH Q4H PRN PRN Reason: TACHYCARDIA Last Admin: 08/20/18 08:37 Dose: 5 mg Morphine Sulfate (Morphine Sulfate) 1 mg IVPUSH Q3H PRN PRN Reason: PAIN LEVEL 1 - 3 Ondansetron HCl (Zofran Injection) 4 mg IVPUSH Q6H PRN PRN Reason: NAUSEA AND/OR VOMITING Pantoprazole Sodium (Protonix -) 20 mg PO DAILY [facility] Last Admin: 08/21/18 09:34 Dose: 20 mg Polyethylene Glycol (Miralax (For Daily Use) -) 17 gm PO BID [facility] Last Admin: 08/21/18 09:34 Dose: Not Given Prednisone (Deltasone -) 20 mg PO DAILY [facility] Senna (Senna -) 2 tab PO HS [facility] Last Admin: 08/20/18 21:32 Dose: Not Given Sodium Chloride ([place] Nasal [place] -) 2 spray NS BID PRN PRN Reason: NASAL CONGESTION - Objective Vital Signs: Vital Signs Temperature 98.1 F 08/21/18 09:00 Pulse Rate 124 H 08/21/18 13:26 Respiratory Rate 20 08/21/18 09:00 Blood Pressure 89/48 L 08/21/18 09:00 O2 Sat by Pulse Oximetry (%) 96 08/21/18 10:00 Constitutional: Yes: Calm Eyes: Yes: Conjunctiva Clear HENT: Yes: Atraumatic Cardiovascular: Yes: S1, S2 Respiratory: Yes: On Nasal O2 Gastrointestinal: Yes: Soft Genitourinary: Yes: [place] Present, Other (bilateral nephrostomy tubes) Musculoskeletal: Yes: Muscle Weakness Edema: No Neurological: Yes: Oriented Labs: CBC, BMP 08/21/18 10:00 08/21/18 10:00 INR, PTT INR 1.74 (0.83-1.09) H 08/16/18 09:25 Problem List - Problems (1) SANAM (acute kidney injury) Code(s): N17.9 - ACUTE KIDNEY FAILURE, UNSPECIFIED (2) CHF (congestive heart failure) Code(s): I50.9 - HEART FAILURE, UNSPECIFIED (3) Abdominal pain Code(s): R10.9 - UNSPECIFIED ABDOMINAL PAIN (4) Atrial fibrillation Code(s): I48.91 - UNSPECIFIED ATRIAL FIBRILLATION Qualifiers: Atrial fibrillation type: permanent Qualified Code(s): I48.2 - Chronic atrial fibrillation Assessment/Plan Current Medications Generic Name Dose Route Start Last Admin Trade Name Freq PRN Reason Stop Dose Admin Budesonide/Formoterol Fumarate 2 puff 08/20/18 10:00 08/21/18 10:02 Symbicort 160/4.5mcg - IH 2 puff BID [facility] Administration Digoxin 0.125 mg 08/21/18 10:00 08/21/18 09:33 Lanoxin - PO 0.125 mg DAILY [facility] Administration Nafcillin Sodium 2 gm/ 100 mls @ 100 mls/hr 08/20/18 02:00 08/21/18 12:20 Dextrose IVPB 100 mls/hr Q4H-IV [facility] Administration Protocol Potassium Chloride/Sodium Chloride 20 meq in 1,000 mls @ 75 mls/hr 08/20/18 00 :57 08/21/18 01:00 1/2ns+20meq Kcl IV 75 mls/hr ASDIR [facility] Administration Insulin Aspart 1 vial 08/20/18 07:00 08/21/18 12:21 Novolog Vial Sliding Scale - SQ 2 units ACHS [facility] Administration Protocol Metoprolol Tartrate 50 mg 08/20/18 06:00 08/21/18 06:15 Lopressor - NGT 50 mg TID [facility] Administration Metoprolol Tartrate 5 mg 08/20/18 00:57 08/20/18 08:37 Lopressor Injection - IVPUSH 5 mg Q4H PRN Administration TACHYCARDIA Morphine Sulfate 1 mg 08/20/18 00:57 Morphine Sulfate IVPUSH Q3H PRN PAIN LEVEL 1 - 3 Ondansetron HCl 4 mg 08/20/18 00:57 Zofran Injection IVPUSH Q6H PRN NAUSEA AND/OR VOMITING Pantoprazole Sodium 20 mg 08/20/18 10:00 08/21/18 09:34 Protonix - PO 20 mg DAILY [facility] Administration Polyethylene Glycol 17 gm 08/20/18 10:00 08/21/18 09:34 Miralax (For Daily Use) - PO Not Given BID [facility] Prednisone 20 mg 08/22/18 11:45 Deltasone - PO DAILY [facility] Senna 2 tab 08/20/18 22:00 08/20/18 21:32 Senna - PO Not Given HS [facility] Sodium Chloride 2 spray 08/20/18 00:57 [place]al [place] - NS BID PRN NASAL CONGESTION Impression 1. SANAM 2. hypotension 3. pulm HTN 4. CHF 5. hematuria 6. sarcoid 7. COPD 8. a-fib 9. hx of HTN 10. hyperlipidemia 11. hyperkalemia resolved 12. mild hydro on ultrasound 13. hypokalemia Plan - d/c fluids - will give a dose of spironolacone - will give a dose of albumin - discussed with cardio - discussed with medical team - urology follow up - replace mag - will follow Dr Del Angel
--- NOTE | 2018-08-21 14:08 | PN ---
Progress Note, Physician History of Present Illness: Awake, confused More tachypneic / tachycardic Supine in bed S/P bilateral PCN Afebrile WBC sl increased 12.5 BC (08/16) no growth - Current Medication List Current Medications: Active Medications Albumin Human (Albumin Human 25% -) 25 gm IVPB ONCE ONE Stop: 08/21/18 14:31 Budesonide/Formoterol Fumarate (Symbicort 160/4.5mcg -) 2 puff IH BID [facility] Last Admin: 08/21/18 10:02 Dose: 2 puff Digoxin (Lanoxin -) 0.125 mg PO DAILY [facility] Last Admin: 08/21/18 09:33 Dose: 0.125 mg Nafcillin Sodium 2 gm/ (Dextrose) 100 mls @ 100 mls/hr IVPB Q4H-IV [facility]; Protocol Last Admin: 08/21/18 12:20 Dose: 100 mls/hr Insulin Aspart (Novolog Vial Sliding Scale -) 1 vial SQ ACHS [facility]; Protocol Last Admin: 08/21/18 12:21 Dose: 2 units Magnesium Sulfate (Magnesium Sulfate) 2 gm IVPB ONCE ONE Stop: 08/21/18 14:31 Metoprolol Tartrate (Lopressor -) 50 mg NGT TID [facility] Last Admin: 08/21/18 13:48 Dose: 50 mg Metoprolol Tartrate (Lopressor Injection -) 5 mg IVPUSH Q4H PRN PRN Reason: TACHYCARDIA Last Admin: 08/20/18 08:37 Dose: 5 mg Morphine Sulfate (Morphine Sulfate) 1 mg IVPUSH Q3H PRN PRN Reason: PAIN LEVEL 1 - 3 Ondansetron HCl (Zofran Injection) 4 mg IVPUSH Q6H PRN PRN Reason: NAUSEA AND/OR VOMITING Pantoprazole Sodium (Protonix -) 20 mg PO DAILY [facility] Last Admin: 08/21/18 09:34 Dose: 20 mg Polyethylene Glycol (Miralax (For Daily Use) -) 17 gm PO BID [facility] Last Admin: 08/21/18 09:34 Dose: Not Given Potassium Chloride ([place] -) 20 meq PO ONCE ONE Stop: 08/21/18 14:16 Potassium Phos/Sodium Phos (Phos-Nak Packet -) 1 packet PO TID [facility] Stop: 08/23/18 06:01 Prednisone (Deltasone -) 20 mg PO DAILY [facility] Senna (Senna -) 2 tab PO HS [facility] Last Admin: 08/20/18 21:32 Dose: Not Given Sodium Chloride ([place] Nasal [place] -) 2 spray NS BID PRN PRN Reason: NASAL CONGESTION Spironolactone (Aldactone -) 50 mg PO ONCE ONE Stop: 08/21/18 14:16 - Objective Vital Signs: Vital Signs Temperature 98.1 F 08/21/18 09:00 Pulse Rate 124 H 08/21/18 13:26 Respiratory Rate 20 08/21/18 09:00 Blood Pressure 89/48 L 08/21/18 09:00 O2 Sat by Pulse Oximetry (%) 96 08/21/18 10:00 Eyes: Yes: Conjunctiva Clear Cardiovascular: Yes: Regular Rate and Rhythm, Tachycardia, S1, S2 Respiratory: Yes: Other (few crepitations, bases) Gastrointestinal: Yes: Normal Bowel Sounds, Soft, Abdomen, Obese. No: Tenderness Genitourinary: Yes: Other (+ B/L PCN) Edema: No Labs: CBC, BMP 08/21/18 10:00 08/21/18 10:00 INR, PTT INR 1.74 (0.83-1.09) H 08/16/18 09:25 Assessment/Plan Staph bacteremia/ sepsis MSSA Sepsis Acute renal failure S/P bilateral PCN Leukocytosis Lactic acidosis resolved Hemorrhagic cystitis COPD CHF Continue nafcillin Repeat BC no growth Echocardiogram no vegetations
[2018-08-21] MEDS ORDERED: POTASSIUM CHLORIDE TABS 20 MEQ TABLET.ER (FP) PO ONE (14:15)
[2018-08-21] MEDS ORDERED: SPIRONOLACTONE 25 MG TABLET (FP) PO ONE (14:15)
[2018-08-21] MEDS ORDERED: ALBUMIN HUMAN 25% 100 ML VIAL IVPB ONE (14:30)
[2018-08-21] MEDS ORDERED: MAGNESIUM SULF 50% (8.12 MEQ/2 ML-1 GM VIAL) IVPB ONE (14:30)
--- NOTE | 2018-08-21 14:30 | PN ---
Physical Exam: SUBJECTIVE: Patient seen and examined at bedside. Responds to verbal stimuli. Denies chest pain or shortness of breath. No acute events overnight. OBJECTIVE: Vital Signs Period Temp Pulse Resp BP Sys/Garza Pulse Ox Last 24 Hr 98 F-98.5 F 96-124 18-25 89-155/48-113 96-96 GENERAL: NAD, labored breathing HEAD: NC/AT ENT: Ears normal, nares patent, oropharynx clear without exudates, moist mucous membranes. NECK: Trachea midline, full range of motion, supple. LUNGS: Scattered Rhonchi, poor inspiratory effort HEART: Regular rate and rhythm, S1, S2 without murmur, rub or gallop. ABDOMEN:Soft, Nondistended nontender. B/L percutaneous nephrostomy tubes draining. EXTREMITIES: No CCE PSYCH: Normal mood, normal affect. SKIN: No rashes or lesions appreciated Laboratory Results - last 24 hr 08/15/18 08/20/18 08/20/18 05:30 11:47 17:20 WBC RBC Hgb Hct MCV MCH MCHC RDW Plt Count MPV Sodium Potassium Chloride Carbon Dioxide Anion Gap BUN Creatinine Creat Clearance w eGFR POC Glucometer [phone] 74 Random Glucose Calcium Phosphorus Magnesium Blood Type B POSITIVE Antibody Screen Negative Crossmatch See Detail 08/20/18 08/21/18 08/21/18 21:04 06:07 10:00 WBC 12.5 H RBC 3.24 L Hgb 7.7 L Hct 23.4 L MCV 72.2 L MCH 23.8 L MCHC 32.9 RDW 22.8 H Plt Count 194 MPV 8.1 Sodium Potassium Chloride Carbon Dioxide Anion Gap BUN Creatinine Creat Clearance w eGFR POC Glucometer 124 79 Random Glucose Calcium Phosphorus Magnesium Blood Type Antibody Screen Crossmatch 08/21/18 08/21/18 10:00 11:26 WBC RBC Hgb Hct MCV MCH MCHC RDW Plt Count MPV Sodium 141 Potassium 3.3 L Chloride 100 Carbon Dioxide 32 Anion Gap 9 BUN 21 H Creatinine 0.6 Creat Clearance w eGFR > 60 POC Glucometer 151 Random Glucose 183 H Calcium 7.2 L Phosphorus 1.8 L Magnesium 1.5 L Blood Type Antibody Screen Crossmatch Active Medications Generic Name Dose Route Start Last Admin Trade Name Freq PRN Reason Stop Dose Admin Albumin Human 25 gm 08/21/18 14:30 Albumin Human 25% - IVPB 08/21/18 14:31 ONCE ONE Budesonide/Formoterol Fumarate 2 puff 08/20/18 10:00 08/21/18 10:02 Symbicort 160/4.5mcg - IH 2 puff BID LISA Administration Digoxin 0.125 mg 08/21/18 10:00 08/21/18 09:33 Lanoxin - PO 0.125 mg DAILY LISA Administration Nafcillin Sodium 2 gm/ 100 mls @ 100 mls/hr 08/20/18 02:00 08/21/18 12:20 Dextrose IVPB 100 mls/hr Q4H-IV LISA Administration Protocol Insulin Aspart 1 vial 08/20/18 07:00 08/21/18 12:21 Novolog Vial Sliding Scale - SQ 2 units ACHS LISA Administration Protocol Magnesium Sulfate 2 gm 08/21/18 14:30 Magnesium Sulfate IVPB 08/21/18 14:31 ONCE ONE Metoprolol Tartrate 50 mg 08/20/18 06:00 08/21/18 13:48 Lopressor - NGT 50 mg TID LISA Administration Metoprolol Tartrate 5 mg 08/20/18 00:57 08/20/18 08:37 Lopressor Injection - IVPUSH 5 mg Q4H PRN Administration TACHYCARDIA Morphine Sulfate 1 mg 08/20/18 00:57 Morphine Sulfate IVPUSH Q3H PRN PAIN LEVEL 1 - 3 Ondansetron HCl 4 mg 08/20/18 00:57 Zofran Injection IVPUSH Q6H PRN NAUSEA AND/OR VOMITING Pantoprazole Sodium 20 mg 08/20/18 10:00 08/21/18 09:34 Protonix - PO 20 mg DAILY LISA Administration Polyethylene Glycol 17 gm 08/20/18 10:00 08/21/18 09:34 Miralax (For Daily Use) - PO Not Given BID LISA Potassium Phos/Sodium Phos 1 packet 08/21/18 14:00 Phos-Nak Packet - PO 08/23/18 06:01 TID LISA Prednisone 20 mg 08/22/18 11:45 Deltasone - PO DAILY LISA Senna 2 tab 08/20/18 22:00 08/20/18 21:32 Senna - PO Not Given HS LISA Sodium Chloride 2 spray 08/20/18 00:57 [place] Nasal [place] - NS BID PRN NASAL CONGESTION ASSESSMENT/PLAN: 87 yo female with PMH of a-fib (rate controlled, on eliquis), CHF, COPD (on 2L home o2), HTN, pulmonary HTN, presented to the ED with complaint of SOB with a cough productive of clear sputum for 2 days and admitted for the treatment of CHF exacerbation #Acute hypercapnic hypoxic respiratory distress: resolving, patient had a likely exacerbation 2/2 CHF and COPD Medrol IVPUSH 20 QD switched to prednisone 20 mg po daily. -Duonebs scheduled QID; albuterol PRN -Continue pulmicort inhaler -on 3L nasal cannula -continue daily weights -BiPap PRN -Central line inserted by ICU team Dr Hernández. 08/17/18 -Speech/Swallow consult appreciated #Hematuria: continuing to occur, likely 2/2 trauma vs acute bladder/kidney pathology -H&H 7.4/21.1 today 08/15/18 - CBI Discontinued per Urology. Eliquis resumed. -Bladder/kidney US ordered--> 08/08/18: R [place]. Partially distended urinary bladder that is at least partially filled with debris. Cannot rule out blood clots. Cannot adequately evaluate its posterior wall. Bilateral ureteral jets were not visualized. Further evaluation of the urinary bladder is needed. -KUB no signs of obstructing stones. Urology on board. -08/11/19 S/p Cystourethroscopy, evacuation of clots, fulguration of bleeders placement 3 way 30 ml 24 fr rodriguez with continuos bladder irrigation. -Renal Sonogram 08/15/18: IMPRESSION: Mild to moderate right renal hydronephrosis and dilatation of the proximal right ureter at appears to have slightly worsened since see prior exam. Partially exophytic left renal lower pole cyst measuring 2.7 cm and mild left renal hydronephrosis. - 08/16/18. Contacted I.R. Percutaneous Nephrostomy tube insertion due to persistent unrelenting R hydronephrosis. Dr Watkins on board. S/P B/L percutaneous nephrostomy tube placement. Good urine output. - PT/INR 20.6/1.74 -08/21/18--> Spoke with Urology and interventional radiology regarding b/l percutaneous nephrostomy tubes. Per IR, will continue with b/l percutaneous nephrostomy tubes. Will internalize tubes and place stents in ureters once pt is finished with her antibiotic treatment. # Anemia -7.7/23.4 08/21/18 -Continue to follow H/H # RUE Edema Doppler RUE Negative for DVT 08/17/18 #SANAM, Hyperkalemia -Renal Dr Del Angel on board -Monitor urine output/Creatinine -08/21/18 BUN/Cr--> 21/0.6 -Spironolactone and Albumin today 08/21/18 # WBC >40K----> improved. WBC today 08/21/18--> 12.5 -Nafcillin 2 gm Q4H -Blood Cultures---MS Staph Aureus -Urine Cultures---MS Staph Aureus #Atrial fibrillation: stable -Lopresor IVPUSH -Echo--> EF 60-65%, moderately to severe LA Dilation. -LE Dopplers negative for any DVT May need CEDRIC if persistently bacteremic Dr Hackett on board. Fluids D/C'ed due to fluid overload. #Sarcoidosis: chronic -Already on steroids for above problems, continue steroids. #HLD: stable -Continue Lipitor FEN: NS Monitor electrolytes NPO PPX: DVT - Eliquis 5 mg po daily - Currently on Hold GI - Protonix 20mg qDaily Dispo: ICU Visit type - Emergency Visit Emergency Visit: Yes ED Registration Date: 07/25/18 Care time: The patient presented to the Emergency Department on the above date and was hospitalized for further evaluation of their emergent condition. - New Patient This patient is new to me today: No - Critical Care Critical Care patient: No - Discharge Referral Referred to [facility] Med P.C.: No
[2018-08-21] MEDS: NAPH,MB-DB/K PH,MBDB POWDER PACKET PO SCH ×2 (15:26→22:01)
[2018-08-21] MEDS: SENNOSIDES 8.6MG TABLET (FP) PO SCH (21:53)
[2018-08-22] MEDS: NAFCILLIN - 2 GM in DEXTROSE 5%-WATER - 100 ML IVPB SCH ×6 (01:48→21:08)
[2018-08-22] MEDS: METOPROLOL TARTRATE 50 MG TABLET (FP) NGT SCH ×3 (06:58→21:09)
[2018-08-22] MEDS: NAPH,MB-DB/K PH,MBDB POWDER PACKET PO SCH ×3 (07:02→21:09)
[2018-08-22] MEDS: INSULIN SLIDING SCALE (NOVOLOG) 1 VIAL SQ SCH ×4 (07:02→21:09)
[2018-08-22 07:34] LABS: MCH 22.8 pg (25.7-33.7); MCHC 31.9 g/dl (32.0-36.0); MEAN CELL VOLUME 71.5 fl (80-96); MEAN PLT VOLUME 7.7 fl (7.5-11.1); PLATELET COUNT 162 K/MM3 (134-434); RBC 2.94 M/mm3 (3.60-5.2); RDW 23.1 % (11.6-15.6); WHITE BLOOD COUNT 8.1 K/mm3 (4.0-10.0)
[2018-08-22 07:44] LABS: HEMOGLOBIN 6.7 GM/dL (10.7-15.3)
[2018-08-22 08:31] LABS: ANION GAP 5 MMOL/L (8-16); BLOOD UREA NITROGEN 17 mg/dL (7-18); CALCIUM 7.2 mg/dL (8.5-10.1); CHLORIDE 99 mmol/L (98-107); CO2 33 mmol/L (21-32); CREATININE 0.5 mg/dL (0.55-1.3); GLUCOSE,RANDOM 116 mg/dL (74-106); MAGNESIUM 1.8 mg/dL (1.8-2.4); SODIUM 137 mmol/L (136-145)
--- NOTE | 2018-08-22 10:44 | PN ---
Progress Note, [facility] - Note Progress Note: Selected Entries 08/21/18 08/21/18 08/21/18 01:45 05:00 09:00 Breakfast Supper Temperature 98.2 F 98.5 F 98.1 F 08/21/18 08/21/18 08/21/18 10:28 15:00 17:00 Breakfast 75% Supper Temperature 97.4 F L 97.6 F 08/21/18 08/21/18 08/22/18 19:23 21:00 01:23 Breakfast Supper 50% Temperature 98.5 F 98.2 F 08/22/18 08/22/18 08/22/18 05:00 09:00 09:50 Breakfast 75% Supper Temperature 98.3 F 98.5 F Laboratory Tests 08/20/18 08/21/18 08/22/18 05:30 10:00 07:10 WBC 9.8 12.5 H 8.1 Pt on puree/thin liquid. Arousable but repeatedly falling asleep. Case reviewed with nursing/PMD Do not upgrade diet for now. Feed only when alert. Monitor tolerance.
[2018-08-22] MEDS ORDERED: PT OWN MED DRAWER 7, Y5N ONE ×3 (10:55→21:00)
[2018-08-22] MEDS: DIGOXIN 0.125 MG TABLET (FP) PO SCH (10:56)
[2018-08-22] MEDS: PANTOPRAZOLE 20 MG TABLET (FP) PO SCH (10:56)
[2018-08-22] MEDS: POLYETHYLENE GLYCOL 3350 119 GM BTL PO SCH ×2 (10:57→21:05)
[2018-08-22] MEDS: BUDESONIDE/FORMETEROL FUMARATE 160/4.5 mcg INHALER IH SCH ×2 (10:58→21:09)
--- NOTE | 2018-08-22 11:19 | PN ---
Progress Note (short form) - Note Progress Note: Chief Complaint: sob History of Present Illness: no cp, dypsnea, dizzy, lightheadedness ex cigs - Current Medication List Current Medications: Active Medications Current Medications Budesonide/Formoterol Fumarate (Symbicort 160/4.5mcg -) 2 puff IH BID [facility] Last Admin: 08/22/18 10:58 Dose: 2 puff Digoxin (Lanoxin -) 0.125 mg PO DAILY [facility] Last Admin: 08/22/18 10:56 Dose: 0.125 mg Nafcillin Sodium 2 gm/ (Dextrose) 100 mls @ 100 mls/hr IVPB Q4H-IV [facility]; Protocol Last Admin: 08/22/18 11:03 Dose: 100 mls/hr Potassium Chloride (Potassium Chloride 10 Meq Premix Ivpb -) 10 meq in 100 mls @ 100 mls/hr IVPB Q60M [facility] Stop: 08/22/18 12:14 Insulin Aspart (Novolog Vial Sliding Scale -) 1 vial SQ ACHS [facility]; Protocol Last Admin: 08/22/18 07:02 Dose: Not Given Metoprolol Tartrate (Lopressor -) 50 mg NGT TID [facility] Last Admin: 08/22/18 06:58 Dose: 50 mg Metoprolol Tartrate (Lopressor Injection -) 5 mg IVPUSH Q4H PRN PRN Reason: TACHYCARDIA Last Admin: 08/20/18 08:37 Dose: 5 mg Morphine Sulfate (Morphine Sulfate) 1 mg IVPUSH Q3H PRN PRN Reason: PAIN LEVEL 1 - 3 Ondansetron HCl (Zofran Injection) 4 mg IVPUSH Q6H PRN PRN Reason: NAUSEA AND/OR VOMITING Pantoprazole Sodium (Protonix -) 20 mg PO DAILY [facility] Last Admin: 08/22/18 10:56 Dose: 20 mg Polyethylene Glycol (Miralax (For Daily Use) -) 17 gm PO BID [facility] Last Admin: 08/22/18 10:57 Dose: Not Given Potassium Chloride (K-Dur -) 40 meq PO ONCE ONE Stop: 08/22/18 11:14 Potassium Phos/Sodium Phos (Phos-Nak Packet -) 1 packet PO TID [facility] Stop: 08/23/18 06:01 Last Admin: 08/22/18 07:02 Dose: 1 packet Prednisone (Deltasone -) 20 mg PO DAILY [facility] Senna (Senna -) 2 tab PO HS [facility] Last Admin: 08/21/18 21:53 Dose: Not Given Sodium Chloride ([place] Nasal [place] -) 2 spray NS BID PRN PRN Reason: NASAL CONGESTION - Objective Vital Signs: Vital Signs Period Temp Pulse Resp BP Sys/Garza Pulse Ox Last 24 Hr 97.4 F-98.5 F 92-124 18-26 109-139/54-73 96-97 Constitutional: Yes: No Distress, Calm Eyes: No: Sclera Icterus HENT: No: Nasal Congestion Cardiovascular: Yes: Pulse Irregular, S1, S2, Other (PMI non diplaced). No: JVD , Gallop, Murmur Respiratory: Yes: CTA Bilaterally, Diminished (bases), Rales (bases). No: Accessory Muscle Use Gastrointestinal: Yes: Normal Bowel Sounds, Soft. No: Tenderness Musculoskeletal: Yes: Other (No kyphosis) Extremities: No: Cold Edema: No (SCDs on) Integumentary: No: Jaundice Neurological: Yes: Alert, Oriented (x3) Psychiatric: No: Agitated Assessment/Plan Echo 05/03: nl LVEF. mild RVE, mild-mod RV hypo. L/NEENA. mod MR/TR. RVSP at least 88 mmHg Echo 03/2017: Mild conc lvh. nl lv/rv size/fn, mod ronnie, mod mr, mod tr, rvsp 40- 50 EKG: afib with PVCs CXR 08/19: stable bibasilar changes L > R tele: afib, mostly 90s-110s, briefly to 120s Assessment/Plan hypotension, NSTEMI, staph bacteremia: -periop hypotension 08/11 during cysto, briefly on pressors. likely due to bacteremia, overdiuresis -trop 2.0 the following day, trended down, likely Type II NV sec to hypoperfusion/sepsis (+/- underlying stable CAD). ECG 08/[address]ressions inferior leads, improved on 08/12 tracing--cannot exclude Type I NV at time of events. -AC initially held for gross hematuria with large clots/hydronephrosis, was back on eliquis and now stopped again due to hematuria. defer aspirin -BB and afib HR control as doing, hemodynamically stable - IV metoprolol as not taking PO consistently -consider risk stratification MPI once clinically stable (if will change med mgmt approach) -defer invasive CAD mgmt approach given Type II NV > Type I here, plus pt's poor functional status with competing mortality limitations from severe lung dz , low likelihood to improve prognosis, and risks > benefits (including bleeding , AIN) afib: - BPs soft at times. - HR control overall acceptable at present. - continue metoprolol and digoxin rate control (deferring calcium channel luz given concern about RV contractility depression (cor pulm pt)) - holding eliquis for hematuria, anemia. 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 initially 158 here. -cont lasix iv 80 bid -07/29: Creat 0.6 and weight down to 162, continue current lasix regimen -07/30: Creat 0.8, K 3.4, Wt 161. Continue current lasix regimen, replete K -07/31: 161 lbs. -08/01: wt 160 lbs, cont same -08/02-: appears euvolemic. was on lasix 40 qd at home. transitioned 80 iv bid to 80 qd -08/06: iv steroids continue and now dose increased. wt up a bit as well, restarted lasix 80 mg IV BID - 08/07-: weight continues to decrease, sob improving, Cr stable, still on IV steroids. Continue lasix 80 mg IV BID while on IV steroids. plan change to po lasix 80 daily when on po steroids. - lasix held and IVF started 08/12 sec to SANAM, sepsis, hypotension. - 08/20: appears more dyspneic, JVD on exam--lasix resumed - 08/21: CXR with persistent effusions, likely 3rd spacing (albumin 1.3). renal fxn now normal. sbp 80s-90s, will likely require albumin along with lasix to diurese, will give trial today - 08/22: net positive due to IV fluid from antibiotics, IVF. IVF stopped. will give additional dose of spironolactone 100 mg x1, K is low despite supplementation. d/w nephrology SANAM, hematuria with clots, obstructive uropathy with bilateral hydro: -renal fxn drastically improved s/p b/l perc nephrostomy--normal fxn now -renal following
--- NOTE | 2018-08-22 11:35 | PN ---
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,comfortable,-resp distress. - Current Medication List Current Medications: Active Medications Budesonide/Formoterol Fumarate (Symbicort 160/4.5mcg -) 2 puff IH BID [facility] Last Admin: 08/22/18 10:58 Dose: 2 puff Digoxin (Lanoxin -) 0.125 mg PO DAILY [facility] Last Admin: 08/22/18 10:56 Dose: 0.125 mg Nafcillin Sodium 2 gm/ (Dextrose) 100 mls @ 100 mls/hr IVPB Q4H-IV [facility]; Protocol Last Admin: 08/22/18 11:03 Dose: 100 mls/hr Potassium Chloride (Potassium Chloride 10 Meq Premix Ivpb -) 10 meq in 100 mls @ 100 mls/hr IVPB Q60M [facility] Stop: 08/22/18 12:14 Insulin Aspart (Novolog Vial Sliding Scale -) 1 vial SQ ACHS [facility]; Protocol Last Admin: 08/22/18 07:02 Dose: Not Given Metoprolol Tartrate (Lopressor -) 50 mg NGT TID [facility] Last Admin: 08/22/18 06:58 Dose: 50 mg Metoprolol Tartrate (Lopressor Injection -) 5 mg IVPUSH Q4H PRN PRN Reason: TACHYCARDIA Last Admin: 08/20/18 08:37 Dose: 5 mg Morphine Sulfate (Morphine Sulfate) 1 mg IVPUSH Q3H PRN PRN Reason: PAIN LEVEL 1 - 3 Ondansetron HCl (Zofran Injection) 4 mg IVPUSH Q6H PRN PRN Reason: NAUSEA AND/OR VOMITING Pantoprazole Sodium (Protonix -) 20 mg PO DAILY [facility] Last Admin: 08/22/18 10:56 Dose: 20 mg Polyethylene Glycol (Miralax (For Daily Use) -) 17 gm PO BID [facility] Last Admin: 08/22/18 10:57 Dose: Not Given Potassium Chloride (K-Dur -) 40 meq PO ONCE ONE Stop: 08/22/18 11:14 Potassium Phos/Sodium Phos (Phos-Nak Packet -) 1 packet PO TID [facility] Stop: 08/23/18 06:01 Last Admin: 08/22/18 07:02 Dose: 1 packet Prednisone (Deltasone -) 20 mg PO DAILY [facility] Senna (Senna -) 2 tab PO HS [facility] Last Admin: 08/21/18 21:53 Dose: Not Given Sodium Chloride ([place] Nasal [place] -) 2 spray NS BID PRN PRN Reason: NASAL CONGESTION - Objective Vital Signs: Vital Signs Temperature 98.5 F 08/22/18 09:00 Pulse Rate 100 H 08/22/18 10:56 Respiratory Rate 18 08/22/18 09:00 Blood Pressure 139/73 08/22/18 09:00 O2 Sat by Pulse Oximetry (%) 96 08/22/18 10:00 Constitutional: Yes: Well Nourished, Calm Eyes: Yes: WNL HENT: Yes: WNL Neck: Yes: WNL Cardiovascular: Yes: Regular Rate and Rhythm, S1, S2 Respiratory: Yes: Rales (bibasilar crackles few scattered wheezes) Gastrointestinal: Yes: Normal Bowel Sounds, Soft Extremities: Yes: WNL Edema: No Labs: CBC, BMP 08/22/18 07:10 08/22/18 07:10 INR, PTT INR 1.74 (0.83-1.09) H 08/16/18 09:25 Problem List - Problems (1) Acute on chronic respiratory failure with hypoxia and hypercapnia Code(s): J96.21 - ACUTE AND CHRONIC RESPIRATORY FAILURE WITH HYPOXIA; J96.22 - ACUTE AND CHRONIC RESPIRATORY FAILURE WITH HYPERCAPNIA (2) Acute CHF (congestive heart failure) Code(s): I50.9 - HEART FAILURE, UNSPECIFIED (3) Atrial fibrillation Code(s): I48.91 - UNSPECIFIED ATRIAL FIBRILLATION Qualifiers: Atrial fibrillation type: permanent Qualified Code(s): I48.2 - Chronic atrial fibrillation (4) Coronary artery disease Code(s): I25.10 - ATHSCL HEART DISEASE OF [place] CORONARY ARTERY W/O ANG PCTRS Qualifiers: Coronary Disease-Associated Artery/Lesion type: [place] artery [place] vs. transplanted heart: [place] heart Associated angina: without angina Qualified Code(s): I25.10 - Atherosclerotic heart disease of [place] coronary artery without angina pectoris (5) Hypertension Code(s): I10 - ESSENTIAL (PRIMARY) HYPERTENSION Qualifiers: Hypertension type: essential hypertension Qualified Code(s): I10 - Essential (primary) hypertension (6) Pulmonary HTN Code(s): I27.20 - PULMONARY HYPERTENSION, UNSPECIFIED (7) Sarcoidosis Code(s): D86.9 - SARCOIDOSIS, UNSPECIFIED (8) Shortness of breath Code(s): R06.02 - SHORTNESS OF BREATH Assessment/Plan ASSESSMENT AND PLAN: Acute on Chronic Hypoxic and Hypercapneic Respiratory Failure clinically improving Acute on Chronic Diastolic Heart Failure COPD Staph bacteremia Sarcoidosis Severe Pulmonary HTN Atrial Fibrillation HTN Hyperlipidemia Hematuria Anemia - monitor urine output, creatinine - daily weights - O2 to keep SpO2>90% - inhaled bronchodilators - rate control - abx as per ID - pred - normal transfusion threshold - replete k DR ALBERT
[2018-08-22] MEDS ORDERED: KCL 10 MEQ IVPB 10 MEQ/100 ML INFUS.BAG IVPB SCH (11:50)
[2018-08-22] MEDS ORDERED: POTASSIUM CHLORIDE TABS 20 MEQ TABLET.ER (FP) PO ONE (11:50)
[2018-08-22] MEDS ORDERED: SPIRONOLACTONE 25 MG TABLET (FP) PO ONE (12:00)
[2018-08-22] MEDS: predniSONE 20 MG TABLET (UD) PO SCH (12:04)
--- NOTE | 2018-08-22 15:25 | PN ---
Progress Note, Physician History of Present Illness: Pt seen and examined at bedside. She is awake and more alert. SHe says that she feels better today. She denies shortness of breath. - Current Medication List Current Medications: Active Medications Budesonide/Formoterol Fumarate (Symbicort 160/4.5mcg -) 2 puff IH BID [facility] Last Admin: 08/22/18 10:58 Dose: 2 puff Digoxin (Lanoxin -) 0.125 mg PO DAILY [facility] Last Admin: 08/22/18 10:56 Dose: 0.125 mg Nafcillin Sodium 2 gm/ (Dextrose) 100 mls @ 100 mls/hr IVPB Q4H-IV [facility]; Protocol Last Admin: 08/22/18 11:03 Dose: 100 mls/hr Insulin Aspart (Novolog Vial Sliding Scale -) 1 vial SQ ACHS [facility]; Protocol Last Admin: 08/22/18 11:46 Dose: Not Given Metoprolol Tartrate (Lopressor -) 50 mg NGT TID [facility] Last Admin: 08/22/18 13:39 Dose: 50 mg Metoprolol Tartrate (Lopressor Injection -) 5 mg IVPUSH Q4H PRN PRN Reason: TACHYCARDIA Last Admin: 08/20/18 08:37 Dose: 5 mg Morphine Sulfate (Morphine Sulfate) 1 mg IVPUSH Q3H PRN PRN Reason: PAIN LEVEL 1 - 3 Ondansetron HCl (Zofran Injection) 4 mg IVPUSH Q6H PRN PRN Reason: NAUSEA AND/OR VOMITING Pantoprazole Sodium (Protonix -) 20 mg PO DAILY [facility] Last Admin: 08/22/18 10:56 Dose: 20 mg Polyethylene Glycol (Miralax (For Daily Use) -) 17 gm PO BID [facility] Last Admin: 08/22/18 10:57 Dose: Not Given Potassium Phos/Sodium Phos (Phos-Nak Packet -) 1 packet PO TID [facility] Stop: 08/23/18 06:01 Last Admin: 08/22/18 13:39 Dose: 1 packet Prednisone (Deltasone -) 20 mg PO DAILY [facility] Last Admin: 08/22/18 12:04 Dose: 20 mg Senna (Senna -) 2 tab PO HS [facility] Last Admin: 08/21/18 21:53 Dose: Not Given Sodium Chloride ([employer] [place] Nasal [place] -) 2 spray NS BID PRN PRN Reason: NASAL CONGESTION - Objective Vital Signs: Vital Signs Temperature 98.6 F 08/22/18 13:00 Pulse Rate 102 H 08/22/18 13:40 Respiratory Rate 20 08/22/18 13:40 Blood Pressure 107/48 L 08/22/18 13:40 O2 Sat by Pulse Oximetry (%) 96 08/22/18 10:00 Constitutional: Yes: Calm Eyes: Yes: Conjunctiva Clear HENT: Yes: Atraumatic Cardiovascular: Yes: S1, S2 Respiratory: Yes: On Nasal O2 Gastrointestinal: Yes: Soft Genitourinary: Yes: [place] Present, Other (bilateral nephrostomy tubes) Musculoskeletal: Yes: Muscle Weakness Edema: No Neurological: Yes: Oriented Psychiatric: Yes: Oriented Labs: CBC, BMP 08/22/18 07:10 08/22/18 07:10 INR, PTT INR 1.74 (0.83-1.09) H 08/16/18 09:25 Problem List - Problems (1) SANAM (acute kidney injury) Code(s): N17.9 - ACUTE KIDNEY FAILURE, UNSPECIFIED (2) CHF (congestive heart failure) Code(s): I50.9 - HEART FAILURE, UNSPECIFIED (3) Abdominal pain Code(s): R10.9 - UNSPECIFIED ABDOMINAL PAIN (4) Atrial fibrillation Code(s): I48.91 - UNSPECIFIED ATRIAL FIBRILLATION Qualifiers: Qualified Code(s): I48.2 - Chronic atrial fibrillation Assessment/Plan Current Medications Generic Name Dose Route Start Last Admin Trade Name Freq PRN Reason Stop Dose Admin Budesonide/Formoterol Fumarate 2 puff 08/20/18 10:00 08/22/18 10:58 Symbicort 160/4.5mcg - IH 2 puff BID LISA Administration Digoxin 0.125 mg 08/21/18 10:00 08/22/18 10:56 Lanoxin - PO 0.125 mg DAILY LISA Administration Nafcillin Sodium 2 gm/ 100 mls @ 100 mls/hr 08/20/18 02:00 08/22/18 11:03 Dextrose IVPB 100 mls/hr Q4H-IV LISA Administration Protocol Insulin Aspart 1 vial 08/20/18 07:00 08/22/18 11:46 Novolog Vial Sliding Scale - SQ Not Given ACHS LISA Protocol Metoprolol Tartrate 50 mg 08/20/18 06:00 08/22/18 13:39 Lopressor - NGT 50 mg TID LISA Administration Metoprolol Tartrate 5 mg 08/20/18 00:57 08/20/18 08:37 Lopressor Injection - IVPUSH 5 mg Q4H PRN Administration TACHYCARDIA Morphine Sulfate 1 mg 08/20/18 00:57 Morphine Sulfate IVPUSH Q3H PRN PAIN LEVEL 1 - 3 Ondansetron HCl 4 mg 08/20/18 00:57 Zofran Injection IVPUSH Q6H PRN NAUSEA AND/OR VOMITING Pantoprazole Sodium 20 mg 08/20/18 10:00 08/22/18 10:56 Protonix - PO 20 mg DAILY LISA Administration Polyethylene Glycol 17 gm 08/20/18 10:00 08/22/18 10:57 Miralax (For Daily Use) - PO Not Given BID LISA Potassium Phos/Sodium Phos 1 packet 08/21/18 14:00 08/22/18 13:39 Phos-Nak Packet - PO 08/23/18 06:01 1 packet TID LISA Administration Prednisone 20 mg 08/22/18 11:45 08/22/18 12:04 Deltasone - PO 20 mg DAILY LISA Administration Senna 2 tab 08/20/18 22:00 08/21/18 21:53 Senna - PO Not Given HS LISA Sodium Chloride 2 spray 08/20/18 00:57 [facility] [place] Nasal [place] - NS BID PRN NASAL CONGESTION Laboratory Tests 08/22/18 07:10 Potassium 3.0 L Phosphorus 2.0 L Magnesium 1.8 Impression 1. SANAM 2. hypotension 3. pulm HTN 4. CHF 5. hematuria 6. sarcoid 7. COPD 8. a-fib 9. hx of HTN 10. hyperlipidemia 11. hyperkalemia resolved 12. mild hydro on ultrasound 13. hypokalemia Plan - discussed with cardio today, will give 100 mg of spironolactone - replace potassium - pt getting prbc - monitor lytes - volume status appears improved - urology follow up - will follow Dr Del Angel
--- NOTE | 2018-08-22 15:31 | PN ---
Teaching Attending Note Name of Resident: Marco A Colon ATTENDING PHYSICIAN STATEMENT I saw and evaluated the patient. I reviewed the resident's note and discussed the case with the resident. I agree with the resident's findings and plan as documented. SUBJECTIVE: Patient is awake and alert. Says breathing feels a little labored. OBJECTIVE: Vital Signs Period Temp Pulse Resp BP Sys/Garza Pulse Ox Last 24 Hr 97.4 F-98.6 F 92-109 18-26 107-139/48-73 96-97 HEART: Irregular LUNGS: Clear ABDOMEN: Soft, non-tender, non-distended, normal BS EXTREMITIES: Trace edema right foot/ankle with tenderness of ankle Laboratory Results - last 24 hr 08/20/18 08/21/18 08/21/18 11:47 16:38 22:10 WBC RBC Hgb Hct MCV MCH MCHC RDW Plt Count MPV Sodium Potassium Chloride Carbon Dioxide Anion Gap BUN Creatinine Creat Clearance w eGFR POC Glucometer [id number] 102 Random Glucose Calcium Phosphorus Magnesium Digoxin Blood Type Antibody Screen Crossmatch 08/22/18 08/22/18 08/22/18 07:01 07:10 07:10 WBC 8.1 RBC 2.94 L Hgb 6.7 L* Hct 21.0 L MCV 71.5 L MCH 22.8 L MCHC 31.9 L RDW 23.1 H Plt Count 162 MPV 7.7 Sodium 137 Potassium 3.0 L Chloride 99 Carbon Dioxide 33 H Anion Gap 5 L BUN 17 Creatinine 0.5 L Creat Clearance w eGFR > 60 POC Glucometer 103 Random Glucose 116 H Calcium 7.2 L Phosphorus 2.0 L Magnesium 1.8 Digoxin 0.19 L Blood Type Antibody Screen Crossmatch 08/22/18 08/22/18 09:45 11:43 WBC RBC Hgb Hct MCV MCH MCHC RDW Plt Count MPV Sodium Potassium Chloride Carbon Dioxide Anion Gap BUN Creatinine Creat Clearance w eGFR POC Glucometer 146 Random Glucose Calcium Phosphorus Magnesium Digoxin Blood Type B POSITIVE Antibody Screen Negative Crossmatch See Detail Current Medications Generic Name Dose Route Start Last Admin Trade Name Freq PRN Reason Stop Dose Admin Budesonide/Formoterol Fumarate 2 puff 08/20/18 10:00 08/22/18 10:58 Symbicort 160/4.5mcg - IH 2 puff BID LISA Administration Digoxin 0.125 mg 08/21/18 10:00 08/22/18 10:56 Lanoxin - PO 0.125 mg DAILY LISA Administration Nafcillin Sodium 2 gm/ 100 mls @ 100 mls/hr 08/20/18 02:00 08/22/18 11:03 Dextrose IVPB 100 mls/hr Q4H-IV LISA Administration Protocol Insulin Aspart 1 vial 08/20/18 07:00 08/22/18 11:46 Novolog Vial Sliding Scale - SQ Not Given ACHS LISA Protocol Metoprolol Tartrate 50 mg 08/20/18 06:00 08/22/18 13:39 Lopressor - NGT 50 mg TID LISA Administration Metoprolol Tartrate 5 mg 08/20/18 00:57 08/20/18 08:37 Lopressor Injection - IVPUSH 5 mg Q4H PRN Administration TACHYCARDIA Morphine Sulfate 1 mg 08/20/18 00:57 Morphine Sulfate IVPUSH Q3H PRN PAIN LEVEL 1 - 3 Ondansetron HCl 4 mg 08/20/18 00:57 Zofran Injection IVPUSH Q6H PRN NAUSEA AND/OR VOMITING Pantoprazole Sodium 20 mg 08/20/18 10:00 08/22/18 10:56 Protonix - PO 20 mg DAILY LISA Administration Polyethylene Glycol 17 gm 08/20/18 10:00 08/22/18 10:57 Miralax (For Daily Use) - PO Not Given BID LISA Potassium Phos/Sodium Phos 1 packet 08/21/18 14:00 08/22/18 13:39 Phos-Nak Packet - PO 08/23/18 06:01 1 packet TID LISA Administration Prednisone 20 mg 08/22/18 11:45 08/22/18 12:04 Deltasone - PO 20 mg DAILY LISA Administration Senna 2 tab 08/20/18 22:00 08/21/18 21:53 Senna - PO Not Given HS LISA Sodium Chloride 2 spray 08/20/18 00:57 [place] - NS BID PRN NASAL CONGESTION ASSESSMENT AND PLAN: This is an 87 year old woman with a history of sarcoidosis, chronic diastolic heart failure, pulmonary HTN, COPD, chronic hypoxic respiratory failure, atrial fib, HTN, hyperlipidemia who presented to the ED with SOB. 1. Acute on chronic hypoxic and hypercapnic respiratory failure - Continue oxygen to maintain saturation >90% - Continue BiPAP as needed 2. Acute exacerbation of COPD - Improving - Continue Symbicort, Prednisone 3. Acute on chronic diastolic heart failure - Improved 4. Hemorrhagic cystitis - Continues to have hematuria - Continue to hold anticoagulation as she is requiring transfusion 5. Acute blood loss anemia - Transfused 1 unit PRBCs on 08/17 - Transfuse 1 unit PRBCs today - Monitor hemoglobin - Continue to hold Eliquis 6. Hypokalemia - Replete potassium 7. Hypophosphatemia - Continue to supplement phosphorus 8. Acute toxic metabolic encephalopathy - Improved 9. Acute kidney injury secondary to obstructive uropathy and hypotension - Resolved - s/p bilateral nephrostomy tube placement 08/16 10. Hypernatremia - Resolved 11. Elevated troponin likely secondary to hypotension, demand ischemia 12. Permanent atrial fibrillation - Continue Lopressor, Digoxin for rate control - Eliquis held secondary to acute blood loss anemia 13. MSSA bacteremia - No evidence of endocarditis - On nafcillin (day 8 from first negative blood culture) 14. HTN - Continue Lopressor 15. Chronic cor pulmonale 16. Sarcoidosis 17. Hyperlipidemia
--- NOTE | 2018-08-22 16:48 | PN ---
Progress Note, Physician History of Present Illness: More awake and alert appearing today Appears comfortable Breathing non-labored Supine in bed S/P bilateral PCN Afebrile - Current Medication List Current Medications: Active Medications Budesonide/Formoterol Fumarate (Symbicort 160/4.5mcg -) 2 puff IH BID [facility] Last Admin: 08/22/18 10:58 Dose: 2 puff Digoxin (Lanoxin -) 0.125 mg PO DAILY [facility] Last Admin: 08/22/18 10:56 Dose: 0.125 mg Nafcillin Sodium 2 gm/ (Dextrose) 100 mls @ 100 mls/hr IVPB Q4H-IV [facility]; Protocol Last Admin: 08/22/18 16:17 Dose: 100 mls/hr Insulin Aspart (Novolog Vial Sliding Scale -) 1 vial SQ ACHS [facility]; Protocol Last Admin: 08/22/18 11:46 Dose: Not Given Metoprolol Tartrate (Lopressor -) 50 mg NGT TID [facility] Last Admin: 08/22/18 13:39 Dose: 50 mg Metoprolol Tartrate (Lopressor Injection -) 5 mg IVPUSH Q4H PRN PRN Reason: TACHYCARDIA Last Admin: 08/20/18 08:37 Dose: 5 mg Morphine Sulfate (Morphine Sulfate) 1 mg IVPUSH Q3H PRN PRN Reason: PAIN LEVEL 1 - 3 Ondansetron HCl (Zofran Injection) 4 mg IVPUSH Q6H PRN PRN Reason: NAUSEA AND/OR VOMITING Pantoprazole Sodium (Protonix -) 20 mg PO DAILY [facility] Last Admin: 08/22/18 10:56 Dose: 20 mg Polyethylene Glycol (Miralax (For Daily Use) -) 17 gm PO BID [facility] Last Admin: 08/22/18 10:57 Dose: Not Given Potassium Phos/Sodium Phos (Phos-Nak Packet -) 1 packet PO TID [facility] Stop: 08/23/18 06:01 Last Admin: 08/22/18 13:39 Dose: 1 packet Prednisone (Deltasone -) 20 mg PO DAILY [facility] Last Admin: 08/22/18 12:04 Dose: 20 mg Senna (Senna -) 2 tab PO HS [facility] Last Admin: 08/21/18 21:53 Dose: Not Given Sodium Chloride ([place] Nasal [place] -) 2 spray NS BID PRN PRN Reason: NASAL CONGESTION - Objective Vital Signs: Vital Signs Temperature 98.1 F 08/22/18 14:00 Pulse Rate 97 H 08/22/18 14:00 Respiratory Rate 20 08/22/18 13:40 Blood Pressure 113/55 L 08/22/18 14:00 O2 Sat by Pulse Oximetry (%) 96 08/22/18 10:00 Constitutional: Yes: No Distress Cardiovascular: Yes: Regular Rate and Rhythm, S1, S2 Respiratory: Yes: Rhonchi Gastrointestinal: Yes: Normal Bowel Sounds, Soft Edema: No Labs: CBC, BMP 08/22/18 07:10 08/22/18 07:10 INR, PTT INR 1.74 (0.83-1.09) H 08/16/18 09:25 Assessment/Plan Staph bacteremia/ sepsis MSSA Acute renal failure S/P bilateral PCN Leukocytosis resolved Lactic acidosis resolved Hemorrhagic cystitis COPD CHF Continue nafcillin Repeat BC no growth Echocardiogram no vegetations
--- NOTE | 2018-08-22 20:12 | PN ---
Physical Exam: SUBJECTIVE: Patient seen and examined at bedside. Much more alert and responsive. Eating breakfast. No acute events overnight. OBJECTIVE: Vital Signs Period Temp Pulse Resp BP Sys/Garza Pulse Ox Last 24 Hr 97.3 F-98.6 F 88-102 18-20 106-139/48-73 96-97 GENERAL: Awake and Alert. Pleasant HEAD: NC/AT EYES: PERRLA EOMI ENT: MMM NECK: Supple LUNGS: HEART: Iregularly irregular . ABDOMEN: Soft NDNT No HSM EXTREMITIES: 1+ pitting edema b/l lower extremities. Tenderness Right Ankle PSYCH: Normal mood, normal affect. SKIN: No rashes or lesions appreciated Laboratory Results - last 24 hr 08/21/18 08/22/18 08/22/18 22:10 07:01 07:10 WBC RBC Hgb Hct MCV MCH MCHC RDW Plt Count MPV Sodium 137 Potassium 3.0 L Chloride 99 Carbon Dioxide 33 H Anion Gap 5 L BUN 17 Creatinine 0.5 L Creat Clearance w eGFR > 60 POC Glucometer 102 103 Random Glucose 116 H Calcium 7.2 L Phosphorus 2.0 L Magnesium 1.8 Digoxin 0.19 L Blood Type Antibody Screen Crossmatch 08/22/18 08/22/18 08/22/18 07:10 09:45 11:43 WBC 8.1 RBC 2.94 L Hgb 6.7 L* Hct 21.0 L MCV 71.5 L MCH 22.8 L MCHC 31.9 L RDW 23.1 H Plt Count 162 MPV 7.7 Sodium Potassium Chloride Carbon Dioxide Anion Gap BUN Creatinine Creat Clearance w eGFR POC Glucometer 146 Random Glucose Calcium Phosphorus Magnesium Digoxin Blood Type B POSITIVE Antibody Screen Negative Crossmatch See Detail 08/22/18 16:57 WBC RBC Hgb Hct MCV MCH MCHC RDW Plt Count MPV Sodium Potassium Chloride Carbon Dioxide Anion Gap BUN Creatinine Creat Clearance w eGFR POC Glucometer 153 Random Glucose Calcium Phosphorus Magnesium Digoxin Blood Type Antibody Screen Crossmatch Active Medications Generic Name Dose Route Start Last Admin Trade Name Freq PRN Reason Stop Dose Admin Budesonide/Formoterol Fumarate 2 puff 08/20/18 10:00 08/22/18 10:58 Symbicort 160/4.5mcg - IH 2 puff BID LISA Administration Digoxin 0.125 mg 08/21/18 10:00 08/22/18 10:56 Lanoxin - PO 0.125 mg DAILY LISA Administration Nafcillin Sodium 2 gm/ 100 mls @ 100 mls/hr 08/20/18 02:00 08/22/18 19:03 Dextrose IVPB 100 mls/hr Q4H-IV LISA Administration Protocol Insulin Aspart 1 vial 08/20/18 07:00 08/22/18 17:20 Novolog Vial Sliding Scale - SQ 2 units ACHS LISA Administration Protocol Metoprolol Tartrate 50 mg 08/20/18 06:00 08/22/18 13:39 Lopressor - NGT 50 mg TID LISA Administration Metoprolol Tartrate 5 mg 08/20/18 00:57 08/20/18 08:37 Lopressor Injection - IVPUSH 5 mg Q4H PRN Administration TACHYCARDIA Morphine Sulfate 1 mg 08/20/18 00:57 Morphine Sulfate IVPUSH Q3H PRN PAIN LEVEL 1 - 3 Ondansetron HCl 4 mg 08/20/18 00:57 Zofran Injection IVPUSH Q6H PRN NAUSEA AND/OR VOMITING Pantoprazole Sodium 20 mg 08/20/18 10:00 08/22/18 10:56 Protonix - PO 20 mg DAILY LISA Administration Polyethylene Glycol 17 gm 08/20/18 10:00 08/22/18 10:57 Miralax (For Daily Use) - PO Not Given BID LISA Potassium Phos/Sodium Phos 1 packet 08/21/18 14:00 08/22/18 13:39 Phos-Nak Packet - PO 08/23/18 06:01 1 packet TID LISA Administration Prednisone 20 mg 08/22/18 11:45 08/22/18 12:04 Deltasone - PO 20 mg DAILY LISA Administration Senna 2 tab 08/20/18 22:00 08/21/18 21:53 Senna - PO Not Given HS LISA Sodium Chloride 2 spray 08/20/18 00:57 [place] Nasal [place] - NS BID PRN NASAL CONGESTION ASSESSMENT/PLAN: 87 yo female with PMH of a-fib (rate controlled, on eliquis), CHF, COPD (on 2L home o2), HTN, pulmonary HTN, presented to the ED with complaint of SOB with a cough productive of clear sputum for 2 days and admitted for the treatment of CHF exacerbation #Acute hypercapnic hypoxic respiratory distress: resolving, patient had a likely exacerbation 2/2 CHF and COPD Medrol IVPUSH 20 QD switched to prednisone 20 mg po daily. -Duonebs scheduled QID; albuterol PRN -Continue pulmicort inhaler -on 3L nasal cannula -continue daily weights -BiPap PRN -Central line inserted by ICU team Dr Hernández. 08/17/18 -Speech/Swallow consult appreciated #Hematuria: continuing to occur, likely 2/2 trauma vs acute bladder/kidney pathology -H&H 7.4/.1 today 08/15/18 - CBI Discontinued per Urology. Eliquis resumed. -Bladder/kidney US ordered--> 08/08/18: R Farrar. Partially distended urinary bladder that is at least partially filled with debris. Cannot rule out blood clots. Cannot adequately evaluate its posterior wall. Bilateral ureteral jets were not visualized. Further evaluation of the urinary bladder is needed. -KUB no signs of obstructing stones. Urology on board. -08/11/19 S/p Cystourethroscopy, evacuation of clots, fulguration of bleeders placement 3 way 30 ml 24 fr rodriguez with continuos bladder irrigation. -Renal Sonogram 08/15/18: IMPRESSION: Mild to moderate right renal hydronephrosis and dilatation of the proximal right ureter at appears to have slightly worsened since see prior exam. Partially exophytic left renal lower pole cyst measuring 2.7 cm and mild left renal hydronephrosis. - 08/16/18. Contacted I.R. Percutaneous Nephrostomy tube insertion due to persistent unrelenting R hydronephrosis. Dr Watkins on board. S/P B/L percutaneous nephrostomy tube placement. Good urine output. - PT/INR 20.6/1.74 -08/21/18--> Spoke with Urology and interventional radiology regarding b/l percutaneous nephrostomy tubes. Per IR, will continue with b/l percutaneous nephrostomy tubes. Will internalize tubes and place stents in ureters once pt is finished with her antibiotic treatment. # Anemia -7.7/23.4 6.7--> has received 1 unit prbc today, repeat cbc hgb 8.7 -Continue to follow H/H # RUE Edema Doppler RUE Negative for DVT 08/17/18 #SANAM, Hyperkalemia -Renal Dr Del Angel on board -Monitor urine output/Creatinine -08/22/18 BUN/Cr--> 17/0.5 -Spironolactone again today 08/22/18 # WBC >40K----> improved. WBC today 08/22/18--> 8.1 -Nafcillin 2 gm Q4H -Blood Cultures---MS Staph Aureus -Urine Cultures---MS Staph Aureus #Atrial fibrillation: stable -Lopresor IVPUSH -Echo--> EF 60-65%, moderately to severe LA Dilation. -LE Dopplers negative for any DVT May need CEDRIC if persistently bacteremic Dr Hackett on board. Fluids D/C'ed due to fluid overload. -Spironolactone 100 mg given today #Sarcoidosis: chronic -Already on steroids for above problems, continue steroids. #HLD: stable -Continue Lipitor FEN: NS Monitor electrolytes NPO PPX: DVT - Eliquis 5 mg po daily - Currently on Hold. Hgb 6.7 today, received 1 unit prbc 08/22/18 GI - Protonix 20mg qDaily Dispo: ICU Visit type - Emergency Visit Emergency Visit: Yes ED Registration Date: 07/25/18 Care time: The patient presented to the Emergency Department on the above date and was hospitalized for further evaluation of their emergent condition. - New Patient This patient is new to me today: No - Critical Care Critical Care patient: No - Discharge Referral Referred to [facility] Med [facility].: No
[2018-08-22 20:29] LABS: HEMATOCRIT 26.1 % (32.4-45.2); HEMOGLOBIN 8.7 GM/dL (10.7-15.3); MCH 25.1 pg (25.7-33.7); MCHC 33.3 g/dl (32.0-36.0); MEAN CELL VOLUME 75.4 fl (80-96); MEAN PLT VOLUME 8.3 fl (7.5-11.1); PLATELET COUNT 193 K/MM3 (134-434); RBC 3.46 M/mm3 (3.60-5.2); RDW 24.7 % (11.6-15.6); WHITE BLOOD COUNT 9.2 K/mm3 (4.0-10.0)
[2018-08-22] MEDS: SENNOSIDES 8.6MG TABLET (FP) PO SCH (21:05)
[2018-08-23] MEDS: NAFCILLIN - 2 GM in DEXTROSE 5%-WATER - 100 ML IVPB SCH ×6 (01:36→21:32)
[2018-08-23] MEDS: NAPH,MB-DB/K PH,MBDB POWDER PACKET PO SCH ×3 (05:37→21:32)
[2018-08-23] MEDS: METOPROLOL TARTRATE 50 MG TABLET (FP) NGT SCH ×3 (05:37→21:31)
[2018-08-23] MEDS: INSULIN SLIDING SCALE (NOVOLOG) 1 VIAL SQ SCH ×4 (06:01→21:34)
[2018-08-23 06:27] LABS: HEMATOCRIT 24.8 % (32.4-45.2); HEMOGLOBIN 8.5 GM/dL (10.7-15.3); MCH 25.6 pg (25.7-33.7); MCHC 34.3 g/dl (32.0-36.0); MEAN CELL VOLUME 74.6 fl (80-96); MEAN PLT VOLUME 8.2 fl (7.5-11.1); PLATELET COUNT 185 K/MM3 (134-434); RBC 3.32 M/mm3 (3.60-5.2); RDW 24.9 % (11.6-15.6); WHITE BLOOD COUNT 8.3 K/mm3 (4.0-10.0)
[2018-08-23 07:09] LABS: ALBUMIN 1.4 g/dl (3.4-5.0); ALK PHOS 83 U/L (45-117); ANION GAP 5 MMOL/L (8-16); BILIRUBIN,TOTAL 1.2 mg/dL (0.2-1); BLOOD UREA NITROGEN 14 mg/dL (7-18); CHLORIDE 98 mmol/L (98-107); CO2 32 mmol/L (21-32); CREATININE 0.5 mg/dL (0.55-1.3); GLUCOSE,RANDOM 92 mg/dL (74-106); MAGNESIUM 1.6 mg/dL (1.8-2.4); POTASSIUM 3.4 mmol/L (3.5-5.1); SGOT/AST 16 U/L (15-37); SGPT/ALT 7 U/L (13-61); SODIUM 135 mmol/L (136-145); TOT PROT 4.6 g/dl (6.4-8.2)
[2018-08-23] MEDS ORDERED: POTASSIUM CHLORIDE TABS 20 MEQ TABLET.ER (FP) PO ONE (07:53)
[2018-08-23] MEDS ORDERED: MAGNESIUM OXIDE 400 MG TABLET (FP) PO ONE (07:55)
[2018-08-23] MEDS ORDERED: PT OWN MED DRAWER 7, Y5N ONE ×6 (09:30→20:59)
[2018-08-23] MEDS: predniSONE 20 MG TABLET (UD) PO SCH (10:31)
[2018-08-23] MEDS: DIGOXIN 0.125 MG TABLET (FP) PO SCH (10:31)
[2018-08-23] MEDS: PANTOPRAZOLE 20 MG TABLET (FP) PO SCH (10:32)
--- NOTE | 2018-08-23 10:51 | PN ---
Progress Note, Physician History of Present Illness: pulmonary drowsy,-resp distress - Current Medication List Current Medications: Active Medications Budesonide/Formoterol Fumarate (Symbicort 160/4.5mcg -) 2 puff IH BID [facility] Last Admin: 08/22/18 21:09 Dose: 2 puff Digoxin (Lanoxin -) 0.125 mg PO DAILY [facility] Last Admin: 08/23/18 10:31 Dose: 0.125 mg Nafcillin Sodium 2 gm/ (Dextrose) 100 mls @ 100 mls/hr IVPB Q4H-IV [facility]; Protocol Last Admin: 08/23/18 10:31 Dose: 100 mls/hr Insulin Aspart (Novolog Vial Sliding Scale -) 1 vial SQ ACHS [facility]; Protocol Last Admin: 08/23/18 06:01 Dose: Not Given Metoprolol Tartrate (Lopressor -) 50 mg NGT TID [facility] Last Admin: 08/23/18 05:37 Dose: 50 mg Metoprolol Tartrate (Lopressor Injection -) 5 mg IVPUSH Q4H PRN PRN Reason: TACHYCARDIA Last Admin: 08/20/18 08:37 Dose: 5 mg Ondansetron HCl (Zofran Injection) 4 mg IVPUSH Q6H PRN PRN Reason: NAUSEA AND/OR VOMITING Pantoprazole Sodium (Protonix -) 20 mg PO DAILY [facility] Last Admin: 08/23/18 10:32 Dose: 20 mg Polyethylene Glycol (Miralax (For Daily Use) -) 17 gm PO BID [facility] Last Admin: 08/22/18 21:05 Dose: Not Given Prednisone (Deltasone -) 20 mg PO DAILY [facility] Last Admin: 08/23/18 10:31 Dose: 20 mg Senna (Senna -) 2 tab PO HS [facility] Last Admin: 08/22/18 21:05 Dose: Not Given Sodium Chloride ([place] Nasal [place] -) 2 spray NS BID PRN PRN Reason: NASAL CONGESTION - Objective Vital Signs: Vital Signs Temperature 98.2 F 08/23/18 05:00 Pulse Rate 86 08/23/18 10:31 Respiratory Rate 18 08/23/18 05:00 Blood Pressure 116/60 08/23/18 05:00 O2 Sat by Pulse Oximetry (%) 93 L 08/23/18 08:31 Constitutional: Yes: Well Nourished, Other (drowsy) Eyes: Yes: WNL HENT: Yes: WNL Neck: Yes: WNL Cardiovascular: Yes: Pulse Irregular, S1, S2 Respiratory: Yes: Rales (bibasilar crackles) Gastrointestinal: Yes: Normal Bowel Sounds, Soft Extremities: Yes: WNL Edema: No Labs: CBC, BMP 08/23/18 05:30 08/23/18 05:30 INR, PTT INR 1.74 (0.83-1.09) H 08/16/18 09:25 Problem List - Problems (1) Acute on chronic respiratory failure with hypoxia and hypercapnia Code(s): J96.21 - ACUTE AND CHRONIC RESPIRATORY FAILURE WITH HYPOXIA; J96.22 - ACUTE AND CHRONIC RESPIRATORY FAILURE WITH HYPERCAPNIA (2) Acute CHF (congestive heart failure) Code(s): I50.9 - HEART FAILURE, UNSPECIFIED (3) Atrial fibrillation Code(s): I48.91 - UNSPECIFIED ATRIAL FIBRILLATION Qualifiers: Atrial fibrillation type: permanent Qualified Code(s): I48.2 - Chronic atrial fibrillation (4) Coronary artery disease Code(s): I25.10 - ATHSCL HEART DISEASE OF [place] CORONARY ARTERY W/O ANG PCTRS Qualifiers: Coronary Disease-Associated Artery/Lesion type: [place] artery [place] vs. transplanted heart: [place] heart Associated angina: without angina Qualified Code(s): I25.10 - Atherosclerotic heart disease of [place] coronary artery without angina pectoris (5) Hypertension Code(s): I10 - ESSENTIAL (PRIMARY) HYPERTENSION Qualifiers: Hypertension type: essential hypertension Qualified Code(s): I10 - Essential (primary) hypertension (6) Pulmonary HTN Code(s): I27.20 - PULMONARY HYPERTENSION, UNSPECIFIED (7) Sarcoidosis Code(s): D86.9 - SARCOIDOSIS, UNSPECIFIED (8) Shortness of breath Code(s): R06.02 - SHORTNESS OF BREATH Assessment/Plan ASSESSMENT AND PLAN: Acute on Chronic Hypoxic and Hypercapneic Respiratory Failure Acute on Chronic Diastolic Heart Failure COPD Staph bacteremia Sarcoidosis Severe Pulmonary HTN Atrial Fibrillation HTN Hyperlipidemia Hematuria Anemia - monitor urine output, creatinine - daily weights - O2 to keep SpO2>90% - inhaled bronchodilators - rate control - abx as per ID - pred - normal transfusion threshold - replete k - abg DR ALBERT
--- NOTE | 2018-08-23 11:00 | PN ---
Physical Exam: SUBJECTIVE: Patient seen and examined at bedside. C/o pain/burning in rectum. No acute events overnight. OBJECTIVE: Vital Signs Period Temp Pulse Resp BP Sys/Garza Pulse Ox Last 24 Hr 97.3 F-98.6 F 86-102 18-20 102-124/48-64 93-94 GENERAL: Awake and Alert. Drowsy HEAD: NC/AT EYES: PERRLA EOMI LUNGS: Decreased BS at bases HEART: Irregularly irregular ABDOMEN: Soft NDNT No hSM EXTREMITIES: No CCE . PSYCH: Normal mood, normal affect. SKIN: Warm, dry, normal turgor, no rashes or lesions noted Laboratory Results - last 24 hr 08/22/18 08/22/18 08/22/18 09:45 11:43 16:57 WBC RBC Hgb Hct MCV MCH MCHC RDW Plt Count MPV Sodium Potassium Chloride Carbon Dioxide Anion Gap BUN Creatinine Creat Clearance w eGFR POC Glucometer 146 153 Random Glucose Calcium Phosphorus Magnesium Total Bilirubin AST ALT Alkaline Phosphatase Total Protein Albumin Digoxin Blood Type B POSITIVE Antibody Screen Negative Crossmatch See Detail 08/22/18 08/22/18 08/23/18 20:00 21:07 05:18 WBC 9.2 RBC 3.46 L Hgb 8.7 L Hct 26.1 L D MCV 75.4 L MCH 25.1 L D MCHC 33.3 RDW 24.7 H Plt Count 193 MPV 8.3 Sodium Potassium Chloride Carbon Dioxide Anion Gap BUN Creatinine Creat Clearance w eGFR POC Glucometer 137 105 Random Glucose Calcium Phosphorus Magnesium Total Bilirubin AST ALT Alkaline Phosphatase Total Protein Albumin Digoxin Blood Type Antibody Screen Crossmatch 08/23/18 08/23/18 05:30 05:30 WBC 8.3 RBC 3.32 L Hgb 8.5 L Hct 24.8 L MCV 74.6 L MCH 25.6 L MCHC 34.3 RDW 24.9 H Plt Count 185 MPV 8.2 Sodium 135 L Potassium 3.4 L Chloride 98 Carbon Dioxide 32 Anion Gap 5 L BUN 14 Creatinine 0.5 L Creat Clearance w eGFR > 60 POC Glucometer Random Glucose 92 Calcium 7.0 L Phosphorus 2.0 L Magnesium 1.6 L Total Bilirubin 1.2 H AST 16 ALT 7 L Alkaline Phosphatase 83 Total Protein 4.6 L Albumin 1.4 L Digoxin 0.26 L Blood Type Antibody Screen Crossmatch Active Medications Generic Name Dose Route Start Last Admin Trade Name Freq PRN Reason Stop Dose Admin Budesonide/Formoterol Fumarate 2 puff 08/20/18 10:00 08/22/18 21:09 Symbicort 160/4.5mcg - IH 2 puff BID LISA Administration Digoxin 0.125 mg 08/21/18 10:00 08/23/18 10:31 Lanoxin - PO 0.125 mg DAILY LISA Administration Nafcillin Sodium 2 gm/ 100 mls @ 100 mls/hr 08/20/18 02:00 08/23/18 10:31 Dextrose IVPB 100 mls/hr Q4H-IV LISA Administration Protocol Insulin Aspart 1 vial 08/20/18 07:00 08/23/18 06:01 Novolog Vial Sliding Scale - SQ Not Given ACHS [facility] Protocol Metoprolol Tartrate 50 mg 08/20/18 06:00 08/23/18 05:37 Lopressor - NGT 50 mg TID LISA Administration Metoprolol Tartrate 5 mg 08/20/18 00:57 08/20/18 08:37 Lopressor Injection - IVPUSH 5 mg Q4H PRN Administration TACHYCARDIA Ondansetron HCl 4 mg 08/20/18 00:57 Zofran Injection IVPUSH Q6H PRN NAUSEA AND/OR VOMITING Pantoprazole Sodium 20 mg 08/20/18 10:00 08/23/18 10:32 Protonix - PO 20 mg DAILY LISA Administration Polyethylene Glycol 17 gm 08/20/18 10:00 08/22/18 21:05 Miralax (For Daily Use) - PO Not Given BID LISA Prednisone 20 mg 08/22/18 11:45 08/23/18 10:31 Deltasone - PO 20 mg DAILY LISA Administration Senna 2 tab 08/20/18 22:00 08/22/18 21:05 Senna - PO Not Given HS LISA Sodium Chloride 2 spray 08/20/18 00:57 [place] Nasal [place] - NS BID PRN NASAL CONGESTION ASSESSMENT/PLAN: 87 yo female with PMH of a-fib (rate controlled, on eliquis), CHF, COPD (on 2L home o2), HTN, pulmonary HTN, presented to the ED with complaint of SOB with a cough productive of clear sputum for 2 days and admitted for the treatment of CHF exacerbation #Acute hypercapnic hypoxic respiratory distress: resolving, patient had a likely exacerbation 2/2 CHF and COPD -prednisone 20 mg po daily. -Duonebs scheduled QID; albuterol PRN -Continue pulmicort inhaler -on 3L nasal cannula -continue daily weights -BiPap PRN -Central line inserted by ICU team Dr Hernández. 08/17/18 -Speech/Swallow consult appreciated #Hematuria: continuing to occur, likely 2/2 trauma vs acute bladder/kidney pathology -H&H 8.03/10.8 today 08/23/18 - CBI Discontinued per Urology. Eliquis resumed. -Bladder/kidney US ordered--> 08/08/18: R Fords. Partially distended urinary bladder that is at least partially filled with debris. Cannot rule out blood clots. Cannot adequately evaluate its posterior wall. Bilateral ureteral jets were not visualized. Further evaluation of the urinary bladder is needed. -KUB no signs of obstructing stones. Urology on board. -08/11/19 S/p Cystourethroscopy, evacuation of clots, fulguration of bleeders placement 3 way 30 ml 24 fr rodriguez with continuos bladder irrigation. -Renal Sonogram 08/15/18: IMPRESSION: Mild to moderate right renal hydronephrosis and dilatation of the proximal right ureter at appears to have slightly worsened since see prior exam. Partially exophytic left renal lower pole cyst measuring 2.7 cm and mild left renal hydronephrosis. - 08/16/18. Contacted I.R. Percutaneous Nephrostomy tube insertion due to persistent unrelenting R hydronephrosis. Dr Watkins on board. S/P B/L percutaneous nephrostomy tube placement. Good urine output. - PT/INR 20.6/1.74 -08/21/18--> Spoke with Urology and interventional radiology regarding b/l percutaneous nephrostomy tubes. Per IR, will continue with b/l percutaneous nephrostomy tubes. Will internalize tubes and place stents in ureters once pt is finished with her antibiotic treatment. # Anemia - H/H 8.03/10.8 08/23/18 -Continue to follow H/H # RUE Edema Doppler RUE Negative for DVT 08/17/18 #SANAM, Hyperkalemia -Renal Dr Del Angel on board -Monitor urine output/Creatinine -08/23/18 BUN/Cr--> 14/0.5 -Spironolactone yesterday 08/22/18 -will receive dose of spironolactone, albumin today per renal. # WBC >40K----> improved. WBC today 08/23/18--> 8.3 -Nafcillin 2 gm Q4H -Blood Cultures---MS Staph Aureus -Urine Cultures---MS Staph Aureus #Atrial fibrillation: stable -Lopresor IVPUSH -Echo--> EF 60-65%, moderately to severe LA Dilation. -LE Dopplers negative for any DVT May need CEDRIC if persistently bacteremic Dr Hackett on board. Fluids D/C'ed due to fluid overload. -Spironolactone 100 mg given today Digoxin 0.125 #Sarcoidosis: chronic -Already on steroids for above problems, continue steroids. #HLD: stable -Continue Lipitor FEN: NS Monitor electrolytes NPO PPX: DVT - Eliquis 5 mg po daily - Currently on Hold. Hgb 6.7 yesterday 08/22, received 1 unit prbc 08/22/18. GI - Protonix 20mg qDaily Dispo: Tele Visit type - Emergency Visit Emergency Visit: Yes ED Registration Date: 07/25/18 Care time: The patient presented to the Emergency Department on the above date and was hospitalized for further evaluation of their emergent condition. - New Patient This patient is new to me today: No - Critical Care Critical Care patient: No - Discharge Referral Referred to [facility] Med P.C.: No
--- NOTE | 2018-08-23 11:06 | PN ---
Progress Note, Physician History of Present Illness: Pt seen and examined at bedside. She is drowsy. She denies shortness of breath. - Current Medication List Current Medications: Active Medications Budesonide/Formoterol Fumarate (Symbicort 160/4.5mcg -) 2 puff IH BID [facility] Last Admin: 08/22/18 21:09 Dose: 2 puff Digoxin (Lanoxin -) 0.125 mg PO DAILY [facility] Last Admin: 08/23/18 10:31 Dose: 0.125 mg Nafcillin Sodium 2 gm/ (Dextrose) 100 mls @ 100 mls/hr IVPB Q4H-IV [facility]; Protocol Last Admin: 08/23/18 10:31 Dose: 100 mls/hr Insulin Aspart (Novolog Vial Sliding Scale -) 1 vial SQ ACHS [facility]; Protocol Last Admin: 08/23/18 06:01 Dose: Not Given Metoprolol Tartrate (Lopressor -) 50 mg NGT TID [facility] Last Admin: 08/23/18 05:37 Dose: 50 mg Metoprolol Tartrate (Lopressor Injection -) 5 mg IVPUSH Q4H PRN PRN Reason: TACHYCARDIA Last Admin: 08/20/18 08:37 Dose: 5 mg Ondansetron HCl (Zofran Injection) 4 mg IVPUSH Q6H PRN PRN Reason: NAUSEA AND/OR VOMITING Pantoprazole Sodium (Protonix -) 20 mg PO DAILY [facility] Last Admin: 08/23/18 10:32 Dose: 20 mg Polyethylene Glycol (Miralax (For Daily Use) -) 17 gm PO BID [facility] Last Admin: 08/22/18 21:05 Dose: Not Given Prednisone (Deltasone -) 20 mg PO DAILY [facility] Last Admin: 08/23/18 10:31 Dose: 20 mg Senna (Senna -) 2 tab PO HS [facility] Last Admin: 08/22/18 21:05 Dose: Not Given Sodium Chloride ([place] Nasal [place] -) 2 spray NS BID PRN PRN Reason: NASAL CONGESTION - Objective Vital Signs: Vital Signs Temperature 98.2 F 08/23/18 05:00 Pulse Rate 86 08/23/18 10:31 Respiratory Rate 18 08/23/18 05:00 Blood Pressure 116/60 08/23/18 05:00 O2 Sat by Pulse Oximetry (%) 93 L 08/23/18 08:31 Constitutional: Yes: Calm Eyes: Yes: Conjunctiva Clear HENT: Yes: Atraumatic Cardiovascular: Yes: S1, S2 Respiratory: Yes: On Nasal O2 Gastrointestinal: Yes: Soft Genitourinary: Yes: [place] Present, Other (bilateral nephrostomy tubes) Musculoskeletal: Yes: Muscle Weakness Edema: No Neurological: Yes: Other (arousable but drowsy) Labs: CBC, BMP 08/23/18 05:30 08/23/18 05:30 INR, PTT INR 1.74 (0.83-1.09) H 08/16/18 09:25 Problem List - Problems (1) SANAM (acute kidney injury) Code(s): N17.9 - ACUTE KIDNEY FAILURE, UNSPECIFIED (2) CHF (congestive heart failure) Code(s): I50.9 - HEART FAILURE, UNSPECIFIED (3) Abdominal pain Code(s): R10.9 - UNSPECIFIED ABDOMINAL PAIN (4) Atrial fibrillation Code(s): I48.91 - UNSPECIFIED ATRIAL FIBRILLATION Qualifiers: Atrial fibrillation type: permanent Qualified Code(s): I48.2 - Chronic atrial fibrillation Assessment/Plan Current Medications Generic Name Dose Route Start Last Admin Trade Name Freq PRN Reason Stop Dose Admin Budesonide/Formoterol Fumarate 2 puff 08/20/18 10:00 08/22/18 21:09 Symbicort 160/4.5mcg - IH 2 puff BID LISA Administration Digoxin 0.125 mg 08/21/18 10:00 08/23/18 10:31 Lanoxin - PO 0.125 mg DAILY LISA Administration Nafcillin Sodium 2 gm/ 100 mls @ 100 mls/hr 08/20/18 02:00 08/23/18 10:31 Dextrose IVPB 100 mls/hr Q4H-IV LISA Administration Protocol Insulin Aspart 1 vial 08/20/18 07:00 08/23/18 06:01 Novolog Vial Sliding Scale - SQ Not Given ACHS LISA Protocol Metoprolol Tartrate 50 mg 08/20/18 06:00 08/23/18 05:37 Lopressor - NGT 50 mg TID LSIA Administration Metoprolol Tartrate 5 mg 08/20/18 00:57 08/20/18 08:37 Lopressor Injection - IVPUSH 5 mg Q4H PRN Administration TACHYCARDIA Ondansetron HCl 4 mg 08/20/18 00:57 Zofran Injection IVPUSH Q6H PRN NAUSEA AND/OR VOMITING Pantoprazole Sodium 20 mg 08/20/18 10:00 08/23/18 10:32 Protonix - PO 20 mg DAILY LISA Administration Polyethylene Glycol 17 gm 08/20/18 10:00 08/22/18 21:05 Miralax (For Daily Use) - PO Not Given BID LISA Prednisone 20 mg 08/22/18 11:45 08/23/18 10:31 Deltasone - PO 20 mg DAILY LISA Administration Senna 2 tab 08/20/18 22:00 08/22/18 21:05 Senna - PO Not Given HS LISA Sodium Chloride 2 spray 08/20/18 00:57 [place] Nasal [place] - NS BID PRN NASAL CONGESTION Laboratory Tests 08/23/18 05:30 Potassium 3.4 L Phosphorus 2.0 L Magnesium 1.6 L Albumin 1.4 L Impression 1. SANAM 2. hypotension 3. pulm HTN 4. CHF 5. hematuria 6. sarcoid 7. COPD 8. a-fib 9. hx of HTN 10. hyperlipidemia 11. hyperkalemia resolved 12. mild hydro on ultrasound 13. hypokalemia Plan - will give a dose of spironolactone - will give albumin - replace mag and phos - pt did get potassium supplements - repeat labs in am - volume status appears improved - urology follow up - will follow Dr Del Angel
[2018-08-23] MEDS ORDERED: MAGNESIUM SULF 50% (8.12 MEQ/2 ML-1 GM VIAL) IVPB ONE (11:15)
[2018-08-23] MEDS ORDERED: ALBUMIN HUMAN 25% 100 ML VIAL IVPB ONE (12:00)
[2018-08-23] MEDS ORDERED: SPIRONOLACTONE 25 MG TABLET (FP) PO ONE (12:00)
--- NOTE | 2018-08-23 12:02 | PN ---
Progress Note (short form) - Note Progress Note: Chief Complaint: sob History of Present Illness: no cp, dypsnea, dizzy, lightheadedness - Current Medication List Current Medications: Active Medications Current Medications Albumin Human (Albumin Human 25% -) 25 gm IVPB ONCE ONE Stop: 08/23/18 12:01 Budesonide/Formoterol Fumarate (Symbicort 160/4.5mcg -) 2 puff IH BID [facility] Last Admin: 08/22/18 21:09 Dose: 2 puff Digoxin (Lanoxin -) 0.125 mg PO DAILY [facility] Last Admin: 08/23/18 10:31 Dose: 0.125 mg Nafcillin Sodium 2 gm/ (Dextrose) 100 mls @ 100 mls/hr IVPB Q4H-IV [facility]; Protocol Last Admin: 08/23/18 10:31 Dose: 100 mls/hr Insulin Aspart (Novolog Vial Sliding Scale -) 1 vial SQ ACHS [facility]; Protocol Last Admin: 08/23/18 06:01 Dose: Not Given Metoprolol Tartrate (Lopressor -) 50 mg NGT TID [facility] Last Admin: 08/23/18 05:37 Dose: 50 mg Metoprolol Tartrate (Lopressor Injection -) 5 mg IVPUSH Q4H PRN PRN Reason: TACHYCARDIA Last Admin: 08/20/18 08:37 Dose: 5 mg Ondansetron HCl (Zofran Injection) 4 mg IVPUSH Q6H PRN PRN Reason: NAUSEA AND/OR VOMITING Pantoprazole Sodium (Protonix -) 20 mg PO DAILY [facility] Last Admin: 08/23/18 10:32 Dose: 20 mg Polyethylene Glycol (Miralax (For Daily Use) -) 17 gm PO BID [facility] Last Admin: 08/22/18 21:05 Dose: Not Given Potassium Phos/Sodium Phos (Phos-Nak Packet -) 1 packet PO TID [facility] Stop: 08/25/18 06:01 Prednisone (Deltasone -) 20 mg PO DAILY [facility] Last Admin: 08/23/18 10:31 Dose: 20 mg Senna (Senna -) 2 tab PO HS [facility] Last Admin: 08/22/18 21:05 Dose: Not Given Sodium Chloride ([place] Nasal [place] -) 2 spray NS BID PRN PRN Reason: NASAL CONGESTION Spironolactone (Aldactone -) 100 mg PO ONCE ONE Stop: 08/23/18 12:01 - Objective Vital Signs: Vital Signs Period Temp Pulse Resp BP Sys/Garza Pulse Ox Last 24 Hr 97.3 F-98.6 F 86-102 18-20 102-124/48-64 93-94 Constitutional: Yes: No Distress, Calm Eyes: No: Sclera Icterus HENT: No: Nasal Congestion Cardiovascular: Yes: Pulse Irregular, S1, S2, Other (PMI non diplaced). No: JVD , Gallop, Murmur Respiratory: Yes: CTA Bilaterally, Diminished (bases), Rales (bases). No: Accessory Muscle Use Gastrointestinal: Yes: Normal Bowel Sounds, Soft. No: Tenderness Musculoskeletal: Yes: Other (No kyphosis) Extremities: No: Cold Edema: No (SCDs on) Integumentary: No: Jaundice Neurological: Yes: Alert, Oriented (x3) Psychiatric: No: Agitated Assessment/Plan Echo 05/03: nl LVEF. mild RVE, mild-mod RV hypo. L/NEENA. mod MR/TR. RVSP at least 88 mmHg Echo 03/2017: Mild conc lvh. nl lv/rv size/fn, mod ronnie, mod mr, mod tr, rvsp 40- 50 EKG: afib with PVCs CXR 08/19: stable bibasilar changes L > R tele: afib, mostly 90s-110s, briefly to 120s Assessment/Plan hypotension, NSTEMI, staph bacteremia: -periop hypotension 08/11 during cysto, briefly on pressors. likely due to bacteremia, overdiuresis -trop 2.0 the following day, trended down, likely Type II NV sec to hypoperfusion/sepsis (+/- underlying stable CAD). ECG 08/[address]ressions inferior leads, improved on 08/12 tracing--cannot exclude Type I NV at time of events. -AC initially held for gross hematuria with large clots/hydronephrosis, was back on eliquis and now stopped again due to hematuria. defer aspirin -BB and afib HR control as doing, hemodynamically stable - IV metoprolol as not taking PO consistently -consider risk stratification MPI once clinically stable (if will change med mgmt approach) -defer invasive CAD mgmt approach given Type II NV > Type I here, plus pt's poor functional status with competing mortality limitations from severe lung dz , low likelihood to improve prognosis, and risks > benefits (including bleeding , AIN) afib: - BPs soft at times. - HR control overall acceptable at present. - continue metoprolol and digoxin rate control (deferring calcium channel luz given concern about RV contractility depression (cor pulm pt)) - holding eliquis for hematuria, anemia. 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 initially 158 here. -cont lasix iv 80 bid - initially on IV lasix while on IV steroids - lasix held and IVF started 08/12 sec to SANAM, sepsis, hypotension after cysctocopy - 08/20: appears more dyspneic, JVD on exam--lasix resumed - 08/21: CXR with persistent effusions, likely 3rd spacing (albumin 1.3). renal fxn now normal. sbp 80s-90s, will likely require albumin along with lasix to diurese, will give trial today - 08/22: net positive due to IV fluid from antibiotics, IVF. IVF stopped. will give additional dose of spironolactone 100 mg x1, K is low despite supplementation. d/w nephrology - 08/23 symptoms improved, IVF off. no dyspnea. additional spironolactone 100 mg x 1 per nephrology SANAM, hematuria with clots, obstructive uropathy with bilateral hydro: -renal fxn drastically improved s/p b/l perc nephrostomy--normal fxn now -renal following
[2018-08-23] MEDS: POLYETHYLENE GLYCOL 3350 119 GM BTL PO SCH ×2 (12:32→21:31)
[2018-08-23] MEDS: BUDESONIDE/FORMETEROL FUMARATE 160/4.5 mcg INHALER IH SCH ×2 (13:03→21:34)
--- NOTE | 2018-08-23 16:05 | PN ---
Teaching Attending Note Name of Resident: Marco A Colon ATTENDING PHYSICIAN STATEMENT I saw and evaluated the patient. I reviewed the resident's note and discussed the case with the resident. I agree with the resident's findings and plan as documented. SUBJECTIVE: Patient appears comfortable laying in bed. She says she feels tired. She denies pain, SOB. OBJECTIVE: Vital Signs Period Temp Pulse Resp BP Sys/Garza Pulse Ox Last 24 Hr 97.3 F-99.5 F 86-95 18-20 102-116/56-71 93-95 HEART: Irregular LUNGS: Clear ABDOMEN: Soft, non-tender, non-distended, normal BS EXTREMITIES: No edema Laboratory Results - last 24 hr 08/22/18 08/22/18 08/22/18 16:57 20:00 21:07 WBC 9.2 RBC 3.46 L Hgb 8.7 L Hct 26.1 L D MCV 75.4 L MCH 25.1 L D MCHC 33.3 RDW 24.7 H Plt Count 193 MPV 8.3 Sodium Potassium Chloride Carbon Dioxide Anion Gap BUN Creatinine Creat Clearance w eGFR POC Glucometer 153 137 Random Glucose Calcium Phosphorus Magnesium Total Bilirubin AST ALT Alkaline Phosphatase Total Protein Albumin Digoxin 08/23/18 08/23/18 08/23/18 05:18 05:30 05:30 WBC 8.3 RBC 3.32 L Hgb 8.5 L Hct 24.8 L MCV 74.6 L MCH 25.6 L MCHC 34.3 RDW 24.9 H Plt Count 185 MPV 8.2 Sodium 135 L Potassium 3.4 L Chloride 98 Carbon Dioxide 32 Anion Gap 5 L BUN 14 Creatinine 0.5 L Creat Clearance w eGFR > 60 POC Glucometer 105 Random Glucose 92 Calcium 7.0 L Phosphorus 2.0 L Magnesium 1.6 L Total Bilirubin 1.2 H AST 16 ALT 7 L Alkaline Phosphatase 83 Total Protein 4.6 L Albumin 1.4 L Digoxin 0.26 L 08/23/18 11:48 WBC RBC Hgb Hct MCV MCH MCHC RDW Plt Count MPV Sodium Potassium Chloride Carbon Dioxide Anion Gap BUN Creatinine Creat Clearance w eGFR POC Glucometer 119 Random Glucose Calcium Phosphorus Magnesium Total Bilirubin AST ALT Alkaline Phosphatase Total Protein Albumin Digoxin Current Medications Generic Name Dose Route Start Last Admin Trade Name Freq PRN Reason Stop Dose Admin Budesonide/Formoterol Fumarate 2 puff 08/20/18 10:00 11/07/18 13:03 Symbicort 160/4.5mcg - IH 2 puff BID LISA Administration Digoxin 0.125 mg 08/21/18 10:00 08/23/18 10:31 Lanoxin - PO 0.125 mg DAILY LISA Administration Nafcillin Sodium 2 gm/ 100 mls @ 100 mls/hr 08/20/18 02:00 08/23/18 14:51 Dextrose IVPB 100 mls/hr Q4H-IV LISA Administration Protocol Insulin Aspart 1 vial 08/20/18 07:00 08/23/18 13:12 Novolog Vial Sliding Scale - SQ Not Given ACHS [facility] Protocol Metoprolol Tartrate 50 mg 08/20/18 06:00 08/23/18 14:51 Lopressor - NGT 50 mg TID LISA Administration Metoprolol Tartrate 5 mg 08/20/18 00:57 08/20/18 08:37 Lopressor Injection - IVPUSH 5 mg Q4H PRN Administration TACHYCARDIA Ondansetron HCl 4 mg 08/20/18 00:57 Zofran Injection IVPUSH Q6H PRN NAUSEA AND/OR VOMITING Pantoprazole Sodium 20 mg 08/20/18 10:00 08/23/18 10:32 Protonix - PO 20 mg DAILY LISA Administration Polyethylene Glycol 17 gm 08/20/18 10:00 08/23/18 12:32 Miralax (For Daily Use) - PO Not Given BID LISA Potassium Phos/Sodium Phos 1 packet 08/23/18 14:00 08/23/18 14:51 Phos-Nak Packet - PO 08/25/18 06:01 1 packet TID LISA Administration Prednisone 20 mg 08/22/18 11:45 08/23/18 10:31 Deltasone - PO 20 mg DAILY LISA Administration Senna 2 tab 08/20/18 22:00 08/22/18 21:05 Senna - PO Not Given HS LISA Sodium Chloride 2 spray 08/20/18 00:57 [place] Nasal [place] - NS BID PRN NASAL CONGESTION ASSESSMENT AND PLAN: This is an 87 year old woman with a history of sarcoidosis, chronic diastolic heart failure, pulmonary HTN, COPD, chronic hypoxic respiratory failure, atrial fib, HTN, hyperlipidemia who presented to the ED with SOB. 1. Acute on chronic hypoxic and hypercapnic respiratory failure - Continue oxygen to maintain saturation >90% - Continue BiPAP as needed 2. Acute exacerbation of COPD - Improving - Continue Symbicort, Prednisone 3. Acute on chronic diastolic heart failure - Improved 4. Hemorrhagic cystitis - Continues to have hematuria - Continue to hold anticoagulation as she has required transfusion 5. Acute blood loss anemia - Transfused 2 units PRBCs during this admission - Monitor hemoglobin - Continue to hold Eliquis 6. Hypokalemia - Continue to replete potassium 7. Hypophosphatemia - Continue to supplement phosphorus 8. Hypomagnesemia - Supplement magnesium 9. Hypernatremia - Resolved 10. Acute toxic metabolic encephalopathy - Improved 11. Acute kidney injury secondary to obstructive uropathy and hypotension - Resolved - s/p bilateral nephrostomy tube placement 08/16 12. Elevated troponin likely secondary to hypotension, demand ischemia 13. Permanent atrial fibrillation - Continue Lopressor, Digoxin for rate control - Eliquis held secondary to acute blood loss anemia 14. MSSA bacteremia - No evidence of endocarditis - On nafcillin (day 9 from first negative blood culture) 15. HTN - Continue Lopressor 16. Chronic cor pulmonale 17. Sarcoidosis 18. Hyperlipidemia
[2018-08-23 17:25] VITALS: BMI 28.9
[2018-08-23] MEDS: SENNOSIDES 8.6MG TABLET (FP) PO SCH (21:31)
[2018-08-24] MEDS: NAFCILLIN - 2 GM in DEXTROSE 5%-WATER - 100 ML IVPB SCH ×6 (02:30→21:09)
[2018-08-24] MEDS ORDERED: PT OWN MED DRAWER 7, Y5N ONE ×5 (03:19→21:01)
[2018-08-24] MEDS: METOPROLOL TARTRATE 50 MG TABLET (FP) NGT SCH ×3 (06:23→21:08)
[2018-08-24] MEDS: NAPH,MB-DB/K PH,MBDB POWDER PACKET PO SCH ×3 (06:23→21:09)
[2018-08-24] MEDS: INSULIN SLIDING SCALE (NOVOLOG) 1 VIAL SQ SCH ×4 (06:23→21:09)
[2018-08-24 06:30] LABS: HEMATOCRIT 23.8 % (32.4-45.2); HEMOGLOBIN 7.7 GM/dL (10.7-15.3); MCH 24.2 pg (25.7-33.7); MCHC 32.3 g/dl (32.0-36.0); MEAN CELL VOLUME 75.2 fl (80-96); MEAN PLT VOLUME 7.8 fl (7.5-11.1); PLATELET COUNT 163 K/MM3 (134-434); RBC 3.17 M/mm3 (3.60-5.2); RDW 24.9 % (11.6-15.6); WHITE BLOOD COUNT 6.7 K/mm3 (4.0-10.0)
[2018-08-24 07:06] LABS: ANION GAP 6 MMOL/L (8-16); BLOOD UREA NITROGEN 12 mg/dL (7-18); CALCIUM 7.2 mg/dL (8.5-10.1); CHLORIDE 100 mmol/L (98-107); CO2 31 mmol/L (21-32); CREATININE 0.5 mg/dL (0.55-1.3); GLUCOSE,RANDOM 94 mg/dL (74-106); MAGNESIUM 1.6 mg/dL (1.8-2.4); PHOSPHOROUS 2.1 mg/dL (2.5-4.9); POTASSIUM 3.6 mmol/L (3.5-5.1); SODIUM 137 mmol/L (136-145)
[2018-08-24] MEDS: DIGOXIN 0.125 MG TABLET (FP) PO SCH (09:56)
[2018-08-24] MEDS: predniSONE 20 MG TABLET (UD) PO SCH (09:56)
[2018-08-24] MEDS: POLYETHYLENE GLYCOL 3350 119 GM BTL PO SCH ×2 (09:57→21:09)
[2018-08-24] MEDS: PANTOPRAZOLE 20 MG TABLET (FP) PO SCH (09:59)
[2018-08-24] MEDS: BUDESONIDE/FORMETEROL FUMARATE 160/4.5 mcg INHALER IH SCH ×2 (09:59→21:10)
--- NOTE | 2018-08-24 10:21 | PN ---
Progress Note (short form) - Note Progress Note: Chief Complaint: sob History of Present Illness: no cp, dypsnea, dizzy, lightheadedness Current Medications Generic Name Dose Route Start Last Admin Trade Name Freq PRN Reason Stop Dose Admin Budesonide/Formoterol Fumarate 2 puff 08/20/18 10:00 08/24/18 09:59 Symbicort 160/4.5mcg - IH 2 puff BID LISA Administration Digoxin 0.125 mg 08/21/18 10:00 08/24/18 09:56 Lanoxin - PO 0.125 mg DAILY LISA Administration Nafcillin Sodium 2 gm/ 100 mls @ 100 mls/hr 08/20/18 02:00 08/24/18 09:58 Dextrose IVPB 100 mls/hr Q4H-IV LISA Administration Protocol Insulin Aspart 1 vial 08/20/18 07:00 08/24/18 06:23 Novolog Vial Sliding Scale - SQ Not Given ACHS LISA Protocol Metoprolol Tartrate 50 mg 08/20/18 06:00 08/24/18 06:23 Lopressor - NGT 50 mg TID LISA Administration Metoprolol Tartrate 5 mg 08/20/18 00:57 08/20/18 08:37 Lopressor Injection - IVPUSH 5 mg Q4H PRN Administration TACHYCARDIA Ondansetron HCl 4 mg 08/20/18 00:57 Zofran Injection IVPUSH Q6H PRN NAUSEA AND/OR VOMITING Pantoprazole Sodium 20 mg 08/20/18 10:00 08/24/18 09:59 Protonix - PO 20 mg DAILY LISA Administration Polyethylene Glycol 17 gm 08/20/18 10:00 08/24/18 09:57 Miralax (For Daily Use) - PO Not Given BID LISA Potassium Phos/Sodium Phos 1 packet 08/23/18 14:00 08/24/18 06:23 Phos-Nak Packet - PO 08/25/18 06:01 1 packet TID LISA Administration Prednisone 20 mg 08/22/18 11:45 08/24/18 09:56 Deltasone - PO 20 mg DAILY LISA Administration Senna 2 tab 08/20/18 22:00 08/23/18 21:31 Senna - PO Not Given HS LISA Sodium Chloride 2 spray 08/20/18 00:57 [place] - NS BID PRN NASAL CONGESTION Vital Signs Period Temp Pulse Resp BP Sys/Garza Pulse Ox Last 24 Hr 97.4 F-99.3 F 64-97 20-20 108-137/57-78 93-100 Constitutional: Yes: No Distress, Calm Eyes: No: Sclera Icterus Cardiovascular: Yes: Pulse Irregular, S1, S2, . No: JVD, Gallop, Murmur Respiratory: Yes: CTA Bilaterally, Diminished (bases). No: Accessory Muscle Use Gastrointestinal: Yes: Normal Bowel Sounds, Soft. No: Tenderness Extremities: No: Cold Edema: No Integumentary: No: Jaundice diaphoresis Neurological: Yes: Alert, appropriate Psychiatric: No: Agitated Echo 05/03: nl LVEF. mild RVE, mild-mod RV hypo. L/NEENA. mod MR/TR. RVSP at least 88 mmHg Echo 03/2017: Mild conc lvh. nl lv/rv size/fn, mod ronnie, mod mr, mod tr, rvsp 40- 50 EKG: afib with PVCs CXR 08/19: stable bibasilar changes L > R tele: afib, rate ok Assessment/Plan hypotension, NSTEMI, staph bacteremia: -periop hypotension 08/11 during cysto, briefly on pressors. likely due to bacteremia, overdiuresis -trop 2.0 the following day, trended down, likely Type II RI sec to hypoperfusion/sepsis (+/- underlying stable CAD). ECG 08/[address] depressions inferior leads, improved on 08/12 tracing--cannot exclude Type I RI at time of events. -AC initially held for gross hematuria with large clots/hydronephrosis, was back on eliquis and now stopped again due to hematuria. defer aspirin -BB and afib HR control as doing, hemodynamically stable - IV metoprolol as not taking PO consistently -consider risk stratification MPI once clinically stable (if will change med mgmt approach) -defer invasive CAD mgmt approach given Type II RI > Type I here, plus pt's poor functional status with competing mortality limitations from severe lung dz , low likelihood to improve prognosis, and risks > benefits (including bleeding , AIN) afib: - BPs soft at times. - HR control overall acceptable at present. - continue metoprolol and digoxin rate control (deferring calcium channel luz given concern about RV contractility depression (cor pulm pt)) - holding eliquis for hematuria, anemia. 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 initially 158 here. -cont lasix iv 80 bid - initially on IV lasix while on IV steroids - lasix held and IVF started 08/12 sec to SANAM, sepsis, hypotension after cysctocopy - 08/20: appears more dyspneic, JVD on exam--lasix resumed - 08/21: CXR with persistent effusions, likely 3rd spacing (albumin 1.3). renal fxn now normal. sbp 80s-90s, will likely require albumin along with lasix to diurese, will give trial today - 08/22: net positive due to IV fluid from antibiotics, IVF. IVF stopped. will give additional dose of spironolactone 100 mg x1, K is low despite supplementation. d/w nephrology - 08/23-: symptoms improved, IVF off. no dyspnea. additional spironolactone 100 mg x 1 per nephrology SANAM, hematuria with clots, obstructive uropathy with bilateral hydro: -renal fxn drastically improved s/p b/l perc nephrostomy--normal fxn now -renal following
--- NOTE | 2018-08-24 10:38 | PN ---
Physical Exam: SUBJECTIVE: Patient seen and examined at bedside. C/o burning in mouth overnight. Denies chest pain or shortness of breath. OBJECTIVE: Vital Signs Period Temp Pulse Resp BP Sys/Garza Pulse Ox Last 24 Hr 97.4 F-99.3 F 64-97 20-20 108-137/57-78 93-100 GENERAL: The patient is awake, alert, and fully oriented, in no acute distress. HEAD: NC/AT NECK: Supple, No JVD LUNGS: Scattered Rhonchi HEART: Irregularly irregular ABDOMEN:NDNT No HSM EXTREMITIES: B/L Upper extremities edematous PSYCH: Normal mood, normal affect. SKIN: No rashes or lesions appreciated Laboratory Results - last 24 hr 08/23/18 08/23/18 08/23/18 11:48 18:02 21:34 WBC RBC Hgb Hct MCV MCH MCHC RDW Plt Count MPV Sodium Potassium Chloride Carbon Dioxide Anion Gap BUN Creatinine Creat Clearance w eGFR POC Glucometer 119 115 103 Random Glucose Calcium Phosphorus Magnesium Digoxin 08/24/18 08/24/18 08/24/18 05:30 05:30 05:43 WBC 6.7 RBC 3.17 L Hgb 7.7 L Hct 23.8 L MCV 75.2 L MCH 24.2 L MCHC 32.3 RDW 24.9 H Plt Count 163 MPV 7.8 Sodium 137 Potassium 3.6 Chloride 100 Carbon Dioxide 31 Anion Gap 6 L BUN 12 Creatinine 0.5 L Creat Clearance w eGFR > 60 POC Glucometer 103 Random Glucose 94 Calcium 7.2 L Phosphorus 2.1 L Magnesium 1.6 L Digoxin 0.32 L Active Medications Generic Name Dose Route Start Last Admin Trade Name Freq PRN Reason Stop Dose Admin Budesonide/Formoterol Fumarate 2 puff 08/20/18 10:00 08/24/18 09:59 Symbicort 160/4.5mcg - IH 2 puff BID LISA Administration Digoxin 0.125 mg 08/21/18 10:00 08/24/18 09:56 Lanoxin - PO 0.125 mg DAILY LISA Administration Nafcillin Sodium 2 gm/ 100 mls @ 100 mls/hr 08/20/18 02:00 08/24/18 09:58 Dextrose IVPB 100 mls/hr Q4H-IV LISA Administration Protocol Insulin Aspart 1 vial 08/20/18 07:00 08/24/18 06:23 Novolog Vial Sliding Scale - SQ Not Given ACHS LISA Protocol Metoprolol Tartrate 50 mg 08/20/18 06:00 08/24/18 06:23 Lopressor - NGT 50 mg TID LISA Administration Metoprolol Tartrate 5 mg 08/20/18 00:57 08/20/18 08:37 Lopressor Injection - IVPUSH 5 mg Q4H PRN Administration TACHYCARDIA Ondansetron HCl 4 mg 08/20/18 00:57 Zofran Injection IVPUSH Q6H PRN NAUSEA AND/OR VOMITING Pantoprazole Sodium 20 mg 08/20/18 10:00 08/24/18 09:59 Protonix - PO 20 mg DAILY LISA Administration Polyethylene Glycol 17 gm 08/20/18 10:00 08/24/18 09:57 Miralax (For Daily Use) - PO Not Given BID LISA Potassium Phos/Sodium Phos 1 packet 08/23/18 14:00 08/24/18 06:23 Phos-Nak Packet - PO 08/25/18 06:01 1 packet TID LISA Administration Prednisone 20 mg 08/22/18 11:45 08/24/18 09:56 Deltasone - PO 20 mg DAILY LISA Administration Senna 2 tab 08/20/18 22:00 08/23/18 21:31 Senna - PO Not Given HS LISA Sodium Chloride 2 spray 08/20/18 00:57 [place] Nas[place] - NS BID PRN NASAL CONGESTION ASSESSMENT/PLAN: 87 yo female with PMH of a-fib (rate controlled, on eliquis), CHF, COPD (on 2L home o2), HTN, pulmonary HTN, presented to the ED with complaint of SOB with a cough productive of clear sputum for 2 days and admitted for the treatment of CHF exacerbation #Acute hypercapnic hypoxic respiratory distress: resolving, patient had a likely exacerbation 2/2 CHF and COPD -Prednisone 20 mg po daily. -Duonebs scheduled QID; albuterol PRN -Continue pulmicort inhaler -on 3L nasal cannula -continue daily weights -BiPap PRN -Central line inserted by ICU team Dr Hernández. 08/17/18 -Speech/Swallow consult appreciated #Hematuria: continuing to occur, likely 2/2 trauma vs acute bladder/kidney pathology - CBI Discontinued per Urology. Eliquis resumed. -Bladder/kidney US ordered--> 08/08/18: R [place]. Partially distended urinary bladder that is at least partially filled with debris. Cannot rule out blood clots. Cannot adequately evaluate its posterior wall. Bilateral ureteral jets were not visualized. Further evaluation of the urinary bladder is needed. -KUB no signs of obstructing stones. Urology on board. -08/11/19 S/p Cystourethroscopy, evacuation of clots, fulguration of bleeders placement 3 way 30 ml 24 fr rodriguez with continuos bladder irrigation. -Renal Sonogram 08/15/18: IMPRESSION: Mild to moderate right renal hydronephrosis and dilatation of the proximal right ureter at appears to have slightly worsened since see prior exam. Partially exophytic left renal lower pole cyst measuring 2.7 cm and mild left renal hydronephrosis. - 08/16/18. Contacted I.R. Percutaneous Nephrostomy tube insertion due to persistent unrelenting R hydronephrosis. Dr Watkins on board. S/P B/L percutaneous nephrostomy tube placement. Good urine output. - PT/INR 20.6/1.74 -08/21/18--> Spoke with Urology and interventional radiology regarding b/l percutaneous nephrostomy tubes. Per IR, will continue with b/l percutaneous nephrostomy tubes. Will internalize tubes and place stents in ureters once pt is finished with her antibiotic treatment. # Anemia - H/H 7. 08/24/18 -Continue to follow H/H # RUE Edema Doppler RUE Negative for DVT 08/17/18 #SANAM, Hyperkalemia -Renal Dr Del Angel on board -Monitor urine output/Creatinine -08/24/18 BUN/Cr--> 12/0.5 -Aldactone 100 mg po today # WBC >40K----> improved. WBC today 08/24/18--> 6.7 -Nafcillin 2 gm Q4H -Blood Cultures---MS Staph Aureus -Urine Cultures---MS Staph Aureus #Atrial fibrillation: stable -Lopresor IVPUSH -Echo--> EF 60-65%, moderately to severe LA Dilation. -LE Dopplers negative for any DVT May need CEDRIC if persistently bacteremic Dr Hackett on board. Fluids D/C'ed due to fluid overload. -Aldactone 100 mg given today Digoxin 0.125 #Sarcoidosis: chronic -Already on steroids for above problems, continue steroids. #HLD: stable -Continue Lipitor FEN: NS Monitor electrolytes NPO PPX: DVT - Eliquis 5 mg po daily - Currently on Hold. Hgb 6.7 08/22, Received 1 unit prbc 08/22/18. GI - Protonix 20mg qDaily Dispo: Tele Visit type - Emergency Visit Emergency Visit: Yes ED Registration Date: 07/25/18 Care time: The patient presented to the Emergency Department on the above date and was hospitalized for further evaluation of their emergent condition. - New Patient This patient is new to me today: No - Critical Care Critical Care patient: No - Discharge Referral Referred to [facility] Med P.C.: No
--- NOTE | 2018-08-24 12:30 | PN ---
Progress Note, [employer] - Note Progress Note: Selected Entries 08/23/18 08/23/18 08/23/18 01:24 05:00 09:00 Breakfast Lunch Supper Temperature 98.1 F 98.2 F 99.5 F 08/23/18 08/23/18 08/23/18 14:00 18:00 22:00 Breakfast Lunch 50% Supper 50% Temperature 97.9 F 98.6 F 08/24/18 08/24/18 08/24/18 02:00 05:32 05:36 Breakfast Lunch Supper Temperature 98.1 F 99.3 F 97.4 F L 08/24/18 08/24/18 10:00 10:34 Breakfast 50% Lunch Supper Temperature 98.9 F Laboratory Tests 08/24/18 05:30 WBC 6.7 On puree/thin liquids. Encourage supplements b/n meals, when fully alert. Nursing noted pt c/o pain /burning in the mouth. r/o thrush.
--- NOTE | 2018-08-24 12:45 | PN ---
Teaching Attending Note Name of Resident: Marco A Colon ATTENDING PHYSICIAN STATEMENT I saw and evaluated the patient. I reviewed the resident's note and discussed the case with the resident. I agree with the resident's findings and plan as documented. SUBJECTIVE: OBJECTIVE: Vital Signs Period Temp Pulse Resp BP Sys/Garza Pulse Ox Last 24 Hr 97.4 F-99.3 F 64-97 20-20 108-137/57-78 93-100 Laboratory Results - last 24 hr 08/23/18 08/23/18 08/24/18 18:02 21:34 05:30 WBC RBC Hgb Hct MCV MCH MCHC RDW Plt Count MPV Sodium 137 Potassium 3.6 Chloride 100 Carbon Dioxide 31 Anion Gap 6 L BUN 12 Creatinine 0.5 L Creat Clearance w eGFR > 60 POC Glucometer 115 103 Random Glucose 94 Calcium 7.2 L Phosphorus 2.1 L Magnesium 1.6 L Digoxin 0.32 L 08/24/18 08/24/18 08/24/18 05:30 05:43 11:27 WBC 6.7 RBC 3.17 L Hgb 7.7 L Hct 23.8 L MCV 75.2 L MCH 24.2 L MCHC 32.3 RDW 24.9 H Plt Count 163 MPV 7.8 Sodium Potassium Chloride Carbon Dioxide Anion Gap BUN Creatinine Creat Clearance w eGFR POC Glucometer 103 114 Random Glucose Calcium Phosphorus Magnesium Digoxin Current Medications Generic Name Dose Route Start Last Admin Trade Name Freq PRN Reason Stop Dose Admin Budesonide/Formoterol Fumarate 2 puff 08/20/18 10:00 08/24/18 09:59 Symbicort 160/4.5mcg - IH 2 puff BID LISA Administration Digoxin 0.125 mg 08/21/18 10:00 08/24/18 09:56 Lanoxin - PO 0.125 mg DAILY LISA Administration Nafcillin Sodium 2 gm/ 100 mls @ 100 mls/hr 08/20/18 02:00 08/24/18 09:58 Dextrose IVPB 100 mls/hr Q4H-IV LISA Administration Protocol Insulin Aspart 1 vial 08/20/18 07:00 08/24/18 12:05 Novolog Vial Sliding Scale - SQ Not Given ACHS LISA Protocol Metoprolol Tartrate 50 mg 08/20/18 06:00 08/24/18 06:23 Lopressor - NGT 50 mg TID LISA Administration Metoprolol Tartrate 5 mg 08/20/18 00:57 08/20/18 08:37 Lopressor Injection - IVPUSH 5 mg Q4H PRN Administration TACHYCARDIA Ondansetron HCl 4 mg 08/20/18 00:57 Zofran Injection IVPUSH Q6H PRN NAUSEA AND/OR VOMITING Pantoprazole Sodium 20 mg 08/20/18 10:00 08/24/18 09:59 Protonix - PO 20 mg DAILY LISA Administration Polyethylene Glycol 17 gm 08/20/18 10:00 08/24/18 09:57 Miralax (For Daily Use) - PO Not Given BID LISA Potassium Phos/Sodium Phos 1 packet 08/23/18 14:00 08/24/18 06:23 Phos-Nak Packet - PO 08/25/18 06:01 1 packet TID LISA Administration Prednisone 20 mg 08/22/18 11:45 08/24/18 09:56 Deltasone - PO 20 mg DAILY LISA Administration Senna 2 tab 08/20/18 22:00 08/23/18 21:31 Senna - PO Not Given HS LISA Sodium Chloride 2 spray 08/20/18 00:57 [place] Nasal [place] - NS BID PRN NASAL CONGESTION ASSESSMENT AND PLAN:
--- NOTE | 2018-08-24 13:04 | PN ---
Progress Note (short form) - Note Progress Note: PULMONARY Breathing continues to improve. Less cough and wheezing. Vital Signs Period Temp Pulse Resp BP Sys/Garza Pulse Ox Last 24 Hr 97.4 F-99.3 F 64-97 20-20 108-137/57-78 93-100 Gen: NAD at rest Heart: RRR Lung: scattered rhonchi, wheezes Abd: soft, nontender Ext: no edema CBC, BMP 08/24/18 05:30 08/24/18 05:30 Active Medications Budesonide/Formoterol Fumarate (Symbicort 160/4.5mcg -) 2 puff IH BID [facility] Last Admin: 08/24/18 09:59 Dose: 2 puff Digoxin (Lanoxin -) 0.125 mg PO DAILY [facility] Last Admin: 08/24/18 09:56 Dose: 0.125 mg Nafcillin Sodium 2 gm/ (Dextrose) 100 mls @ 100 mls/hr IVPB Q4H-IV [facility]; Protocol Last Admin: 08/24/18 09:58 Dose: 100 mls/hr Insulin Aspart (Novolog Vial Sliding Scale -) 1 vial SQ ACHS [facility]; Protocol Last Admin: 08/24/18 12:05 Dose: Not Given Metoprolol Tartrate (Lopressor -) 50 mg NGT TID [facility] Last Admin: 08/24/18 06:23 Dose: 50 mg Metoprolol Tartrate (Lopressor Injection -) 5 mg IVPUSH Q4H PRN PRN Reason: TACHYCARDIA Last Admin: 08/20/18 08:37 Dose: 5 mg Ondansetron HCl (Zofran Injection) 4 mg IVPUSH Q6H PRN PRN Reason: NAUSEA AND/OR VOMITING Pantoprazole Sodium (Protonix -) 20 mg PO DAILY [facility] Last Admin: 08/24/18 09:59 Dose: 20 mg Polyethylene Glycol (Miralax (For Daily Use) -) 17 gm PO BID [facility] Last Admin: 08/24/18 09:57 Dose: Not Given Potassium Phos/Sodium Phos (Phos-Nak Packet -) 1 packet PO TID [facility] Stop: 08/25/18 06:01 Last Admin: 08/24/18 06:23 Dose: 1 packet Prednisone (Deltasone -) 20 mg PO DAILY [facility] Last Admin: 08/24/18 09:56 Dose: 20 mg Senna (Senna -) 2 tab PO HS [facility] Last Admin: 08/23/18 21:31 Dose: Not Given Sodium Chloride ([place] Nas[place] -) 2 spray NS BID PRN PRN Reason: NASAL CONGESTION A/P Acute on Chronic Hypoxic and Hypercapneic Respiratory Failure improving Acute on Chronic Diastolic Heart Failure COPD Staph Bacteremia Sarcoidosis Severe Pulmonary HTN Atrial Fibrillation HTN Hyperlipidemia Hematuria Anemia Acute Kidney Injury Bilateral Hydronephrosis s/p nephrostomy placements - continue antibiotics - monitor urine output, creatinine - O2 to keep SpO2>90% - inhaled bronchodilators - taper off prednisone - BiPAP as needed - rate control - resume anticoagulation when ok with surgery
[2018-08-24] MEDS ORDERED: SPIRONOLACTONE 25 MG TABLET (FP) PO ONE ×2 (15:37)
--- NOTE | 2018-08-24 15:37 | PN ---
Progress Note, Physician History of Present Illness: Pt seen and examined at bedside. She is awake and alert. She denies shortness of breath. - Current Medication List Current Medications: Active Medications Budesonide/Formoterol Fumarate (Symbicort 160/4.5mcg -) 2 puff IH BID [facility] Last Admin: 08/24/18 09:59 Dose: 2 puff Digoxin (Lanoxin -) 0.125 mg PO DAILY [facility] Last Admin: 08/24/18 09:56 Dose: 0.125 mg Nafcillin Sodium 2 gm/ (Dextrose) 100 mls @ 100 mls/hr IVPB Q4H-IV [facility]; Protocol Last Admin: 08/24/18 13:42 Dose: 100 mls/hr Insulin Aspart (Novolog Vial Sliding Scale -) 1 vial SQ ACHS [facility]; Protocol Last Admin: 08/24/18 12:05 Dose: Not Given Metoprolol Tartrate (Lopressor -) 50 mg NGT TID [facility] Last Admin: 08/24/18 13:43 Dose: 50 mg Metoprolol Tartrate (Lopressor Injection -) 5 mg IVPUSH Q4H PRN PRN Reason: TACHYCARDIA Last Admin: 08/20/18 08:37 Dose: 5 mg Ondansetron HCl (Zofran Injection) 4 mg IVPUSH Q6H PRN PRN Reason: NAUSEA AND/OR VOMITING Pantoprazole Sodium (Protonix -) 20 mg PO DAILY [facility] Last Admin: 08/24/18 09:59 Dose: 20 mg Polyethylene Glycol (Miralax (For Daily Use) -) 17 gm PO BID [facility] Last Admin: 08/24/18 09:57 Dose: Not Given Potassium Phos/Sodium Phos (Phos-Nak Packet -) 1 packet PO TID [facility] Stop: 08/25/18 06:01 Last Admin: 08/24/18 13:43 Dose: 1 packet Prednisone (Deltasone -) 20 mg PO DAILY [facility] Last Admin: 08/24/18 09:56 Dose: 20 mg Senna (Senna -) 2 tab PO HS [facility] Last Admin: 08/23/18 21:31 Dose: Not Given Sodium Chloride ([place] Nas[place] -) 2 spray NS BID PRN PRN Reason: NASAL CONGESTION - Objective Vital Signs: Vital Signs Temperature 99.8 F H 08/24/18 14:00 Pulse Rate 97 H 08/24/18 14:00 Respiratory Rate 20 08/24/18 10:00 Blood Pressure 113/66 08/24/18 14:00 O2 Sat by Pulse Oximetry (%) 100 08/24/18 10:00 Constitutional: Yes: Calm Eyes: Yes: Conjunctiva Clear HENT: Yes: Atraumatic Cardiovascular: Yes: S1, S2 Respiratory: Yes: On Nasal O2 Gastrointestinal: Yes: Soft Genitourinary: Yes: [place] Present, Other (bilateral nephrostomy tubes) Extremities: Yes: WNL Edema: No Neurological: Yes: Oriented Psychiatric: Yes: Oriented Labs: CBC, BMP 08/24/18 05:30 08/24/18 05:30 INR, PTT INR 1.74 (0.83-1.09) H 08/16/18 09:25 Problem List - Problems (1) SANAM (acute kidney injury) Code(s): N17.9 - ACUTE KIDNEY FAILURE, UNSPECIFIED (2) CHF (congestive heart failure) Code(s): I50.9 - HEART FAILURE, UNSPECIFIED (3) Abdominal pain Code(s): R10.9 - UNSPECIFIED ABDOMINAL PAIN (4) Atrial fibrillation Code(s): I48.91 - UNSPECIFIED ATRIAL FIBRILLATION Qualifiers: Atrial fibrillation type: permanent Qualified Code(s): I48.2 - Chronic atrial fibrillation Assessment/Plan Current Medications Generic Name Dose Route Start Last Admin Trade Name Freq PRN Reason Stop Dose Admin Budesonide/Formoterol Fumarate 2 puff 08/20/18 10:00 08/24/18 09:59 Symbicort 160/4.5mcg - IH 2 puff BID LISA Administration Digoxin 0.125 mg 08/21/18 10:00 08/24/18 09:56 Lanoxin - PO 0.125 mg DAILY LISA Administration Nafcillin Sodium 2 gm/ 100 mls @ 100 mls/hr 08/20/18 02:00 08/24/18 13:42 Dextrose IVPB 100 mls/hr Q4H-IV LISA Administration Protocol Insulin Aspart 1 vial 08/20/18 07:00 08/24/18 12:05 Novolog Vial Sliding Scale - SQ Not Given ACHS LISA Protocol Metoprolol Tartrate 50 mg 08/20/18 06:00 08/24/18 13:43 Lopressor - NGT 50 mg TID LISA Administration Metoprolol Tartrate 5 mg 08/20/18 00:57 08/20/18 08:37 Lopressor Injection - IVPUSH 5 mg Q4H PRN Administration TACHYCARDIA Ondansetron HCl 4 mg 08/20/18 00:57 Zofran Injection IVPUSH Q6H PRN NAUSEA AND/OR VOMITING Pantoprazole Sodium 20 mg 08/20/18 10:00 08/24/18 09:59 Protonix - PO 20 mg DAILY LISA Administration Polyethylene Glycol 17 gm 08/20/18 10:00 08/24/18 09:57 Miralax (For Daily Use) - PO Not Given BID LISA Potassium Phos/Sodium Phos 1 packet 08/23/18 14:00 08/24/18 13:43 Phos-Nak Packet - PO 08/25/18 06:01 1 packet TID LISA Administration Prednisone 20 mg 08/22/18 11:45 08/24/18 09:56 Deltasone - PO 20 mg DAILY LISA Administration Senna 2 tab 08/20/18 22:00 08/23/18 21:31 Senna - PO Not Given HS LISA Sodium Chloride 2 spray 08/20/18 00:57 [place] Nasal [place] - NS BID PRN NASAL CONGESTION Laboratory Tests 08/24/18 05:30 Phosphorus 2.1 L Magnesium 1.6 L Impression 1. SANAM 2. hypotension 3. pulm HTN 4. CHF 5. hematuria 6. sarcoid 7. COPD 8. a-fib 9. hx of HTN 10. hyperlipidemia 11. hyperkalemia resolved 12. mild hydro on ultrasound 13. hypokalemia Plan - will give another dose of aldactone - replace mag - cont phos supplements - check cmp in am - repeat labs in am - urology follow up - will follow Dr Del Angel
[2018-08-24] MEDS ORDERED: MAGNESIUM SULF 50% (8.12 MEQ/2 ML-1 GM VIAL) IVPB ONE (15:45)
[2018-08-24] MEDS: SENNOSIDES 8.6MG TABLET (FP) PO SCH (21:10)
[2018-08-25] MEDS: NAFCILLIN - 2 GM in DEXTROSE 5%-WATER - 100 ML IVPB SCH ×7 (01:30→22:48)
[2018-08-25] MEDS: METOPROLOL TARTRATE 50 MG TABLET (FP) NGT SCH ×3 (06:14→22:48)
[2018-08-25] MEDS: INSULIN SLIDING SCALE (NOVOLOG) 1 VIAL SQ SCH ×4 (06:14→23:01)
[2018-08-25] MEDS: NAPH,MB-DB/K PH,MBDB POWDER PACKET PO SCH ×3 (06:14→22:48)
[2018-08-25 07:28] LABS: HEMATOCRIT 24.6 % (32.4-45.2); HEMOGLOBIN 8.1 GM/dL (10.7-15.3); MCH 24.5 pg (25.7-33.7); MCHC 32.8 g/dl (32.0-36.0); MEAN CELL VOLUME 74.7 fl (80-96); PLATELET COUNT 177 K/MM3 (134-434); RBC 3.29 M/mm3 (3.60-5.2); RDW 25.6 % (11.6-15.6); WHITE BLOOD COUNT 5.8 K/mm3 (4.0-10.0)
[2018-08-25] MEDS ORDERED: PT OWN MED DRAWER 7, Y5N ONE ×4 (08:18→15:11)
[2018-08-25 08:38] LABS: ALBUMIN 1.6 g/dl (3.4-5.0); ALK PHOS 87 U/L (45-117); ANION GAP 10 MMOL/L (8-16); BLOOD UREA NITROGEN 10 mg/dL (7-18); CALCIUM 7.3 mg/dL (8.5-10.1); CHLORIDE 99 mmol/L (98-107); CO2 29 mmol/L (21-32); CREATININE 0.4 mg/dL (0.55-1.3); GLUCOSE,RANDOM 104 mg/dL (74-106); MAGNESIUM 1.8 mg/dL (1.8-2.4); PHOSPHOROUS 1.9 mg/dL (2.5-4.9); POTASSIUM 3.4 mmol/L (3.5-5.1); SGOT/AST 13 U/L (15-37); SGPT/ALT 9 U/L (13-61); SODIUM 138 mmol/L (136-145)
[2018-08-25] MEDS: DIGOXIN 0.125 MG TABLET (FP) PO SCH (09:19)
[2018-08-25] MEDS: PANTOPRAZOLE 20 MG TABLET (FP) PO SCH (09:19)
[2018-08-25] MEDS: predniSONE 20 MG TABLET (UD) PO SCH (09:19)
[2018-08-25] MEDS: BUDESONIDE/FORMETEROL FUMARATE 160/4.5 mcg INHALER IH SCH ×2 (09:19→22:49)
[2018-08-25] MEDS: POLYETHYLENE GLYCOL 3350 119 GM BTL PO SCH ×2 (09:20→22:49)
--- NOTE | 2018-08-25 10:23 | PN ---
Progress Note (short form) - Note Progress Note: Chief Complaint: sob History of Present Illness: no cp, dypsnea, dizzy, lightheadedness Current Medications Generic Name Dose Route Start Last Admin Trade Name Freq PRN Reason Stop Dose Admin Budesonide/Formoterol Fumarate 2 puff 08/20/18 10:00 08/25/18 09:19 Symbicort 160/4.5mcg - IH 2 puff BID LISA Administration Digoxin 0.125 mg 08/21/18 10:00 08/25/18 09:19 Lanoxin - PO 0.125 mg DAILY LISA Administration Nafcillin Sodium 2 gm/ 100 mls @ 100 mls/hr 08/20/18 02:00 08/25/18 09:20 Dextrose IVPB 100 mls/hr Q4H-IV LISA Administration Protocol Insulin Aspart 1 vial 08/20/18 07:00 08/25/18 06:14 Novolog Vial Sliding Scale - SQ Not Given ACHS LISA Protocol Metoprolol Tartrate 50 mg 08/20/18 06:00 08/25/18 06:14 Lopressor - NGT 50 mg TID LISA Administration Metoprolol Tartrate 5 mg 08/20/18 00:57 08/20/18 08:37 Lopressor Injection - IVPUSH 5 mg Q4H PRN Administration TACHYCARDIA Ondansetron HCl 4 mg 08/20/18 00:57 Zofran Injection IVPUSH Q6H PRN NAUSEA AND/OR VOMITING Pantoprazole Sodium 20 mg 08/20/18 10:00 08/25/18 09:19 Protonix - PO 20 mg DAILY LISA Administration Polyethylene Glycol 17 gm 08/20/18 10:00 08/25/18 09:20 Miralax (For Daily Use) - PO Not Given BID LISA Prednisone 20 mg 08/22/18 11:45 08/25/18 09:19 Deltasone - PO 20 mg DAILY LISA Administration Senna 2 tab 08/20/18 22:00 08/24/18 21:10 Senna - PO Not Given HS LISA Sodium Chloride 2 spray 08/20/18 00:57 [place] - NS BID PRN NASAL CONGESTION Vital Signs Period Temp Pulse Resp BP Sys/Garza Pulse Ox Last 24 Hr 98.2 F-99.8 F 90-107 20-20 112-127/53-79 99-100 Constitutional: Yes: No Distress, Calm Eyes: No: Sclera Icterus Cardiovascular: Yes: Pulse Irregular, S1, S2, . No: JVD, Gallop, Murmur Respiratory: Yes: CTA Bilaterally, Diminished (bases). No: Accessory Muscle Use Gastrointestinal: Yes: Normal Bowel Sounds, Soft. No: Tenderness Extremities: No: Cold Edema: No Integumentary: No: Jaundice diaphoresis Neurological: Yes: Alert, appropriate Psychiatric: No: Agitated Echo 05/03: nl LVEF. mild RVE, mild-mod RV hypo. L/NEENA. mod MR/TR. RVSP at least 88 mmHg Echo 03/2017: Mild conc lvh. nl lv/rv size/fn, mod ronnie, mod mr, mod tr, rvsp 40- 50 EKG: afib with PVCs CXR 08/19: stable bibasilar changes L > R tele: afib, rate ok Assessment/Plan hypotension, NSTEMI, staph bacteremia: -periop hypotension 08/11 during cysto, briefly on pressors. 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 ECG 08/[address] depressions inferior leads, improved on 08/12 tracing--cannot exclude Type I CA at time of events. -AC initially held for gross hematuria with large clots/hydronephrosis, was back on eliquis and now stopped again due to hematuria. defer aspirin -BB and afib HR control as doing, hemodynamically stable - IV metoprolol as not taking PO consistently -consider risk stratification MPI once clinically stable (if will change med mgmt approach) -defer invasive CAD mgmt approach given Type II CA > Type I here, plus pt's poor functional status with competing mortality limitations from severe lung dz , low likelihood to improve prognosis, and risks > benefits (including bleeding , AIN) afib: - BPs soft at times. - HR control overall acceptable at present. - continue metoprolol and digoxin rate control (deferring calcium channel luz given concern about RV contractility depression (cor pulm pt)) - holding eliquis for hematuria, anemia. 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 initially 158 here. -cont lasix iv 80 bid - initially on IV lasix while on IV steroids - lasix held and IVF started 08/12 sec to SANAM, sepsis, hypotension after cysctocopy - 08/20: appears more dyspneic, JVD on exam--lasix resumed - 08/21: CXR with persistent effusions, likely 3rd spacing (albumin 1.3). renal fxn now normal. sbp 80s-90s, will likely require albumin along with lasix to diurese, will give trial today - 08/22: net positive due to IV fluid from antibiotics, IVF. IVF stopped. will give additional dose of spironolactone 100 mg x1, K is low despite supplementation. d/w nephrology - 08/23-: symptoms improved, IVF off. no dyspnea. additional spironolactone per nephrology SANAM, hematuria with clots, obstructive uropathy with bilateral hydro: -renal fxn drastically improved s/p b/l perc nephrostomy--normal fxn now -renal following
[2018-08-25] MEDS ORDERED: NAPH,MB-DB/K PH,MBDB POWDER PACKET PO ONE (10:27)
--- NOTE | 2018-08-25 11:11 | PN ---
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,weak,-resp distress - Current Medication List Current Medications: Active Medications Budesonide/Formoterol Fumarate (Symbicort 160/4.5mcg -) 2 puff IH BID [facility] Last Admin: 08/25/18 09:19 Dose: 2 puff Digoxin (Lanoxin -) 0.125 mg PO DAILY [facility] Last Admin: 08/25/18 09:19 Dose: 0.125 mg Nafcillin Sodium 2 gm/ (Dextrose) 100 mls @ 100 mls/hr IVPB Q4H-IV [facility]; Protocol Last Admin: 08/25/18 09:20 Dose: 100 mls/hr Insulin Aspart (Novolog Vial Sliding Scale -) 1 vial SQ ACHS [facility]; Protocol Last Admin: 08/25/18 06:14 Dose: Not Given Metoprolol Tartrate (Lopressor -) 50 mg NGT TID [facility] Last Admin: 08/25/18 06:14 Dose: 50 mg Metoprolol Tartrate (Lopressor Injection -) 5 mg IVPUSH Q4H PRN PRN Reason: TACHYCARDIA Last Admin: 08/20/18 08:37 Dose: 5 mg Ondansetron HCl (Zofran Injection) 4 mg IVPUSH Q6H PRN PRN Reason: NAUSEA AND/OR VOMITING Pantoprazole Sodium (Protonix -) 20 mg PO DAILY [facility] Last Admin: 08/25/18 09:19 Dose: 20 mg Polyethylene Glycol (Miralax (For Daily Use) -) 17 gm PO BID [facility] Last Admin: 08/25/18 09:20 Dose: Not Given Prednisone (Deltasone -) 20 mg PO DAILY [facility] Last Admin: 08/25/18 09:19 Dose: 20 mg Senna (Senna -) 2 tab PO HS [facility] Last Admin: 08/24/18 21:10 Dose: Not Given Sodium Chloride ([place] -) 2 spray NS BID PRN PRN Reason: NASAL CONGESTION - Objective Vital Signs: Vital Signs Temperature 99.4 F 08/25/18 05:00 Pulse Rate 90 08/25/18 09:19 Respiratory Rate 20 08/25/18 05:00 Blood Pressure 120/79 08/25/18 05:00 O2 Sat by Pulse Oximetry (%) 99 08/25/18 07:39 Constitutional: Yes: Well Nourished, Calm Eyes: Yes: WNL HENT: Yes: WNL Neck: Yes: WNL Cardiovascular: Yes: Pulse Irregular, S1, S2 Respiratory: Yes: Rales (scattered crackles,wheezes) Gastrointestinal: Yes: Normal Bowel Sounds, Soft Extremities: Yes: WNL Edema: No Labs: CBC, BMP 08/25/18 05:48 08/25/18 05:48 INR, PTT INR 1.74 (0.83-1.09) H 08/16/18 09:25 Problem List - Problems (1) Acute on chronic respiratory failure with hypoxia and hypercapnia Code(s): J96.21 - ACUTE AND CHRONIC RESPIRATORY FAILURE WITH HYPOXIA; J96.22 - ACUTE AND CHRONIC RESPIRATORY FAILURE WITH HYPERCAPNIA (2) Acute CHF (congestive heart failure) Code(s): I50.9 - HEART FAILURE, UNSPECIFIED (3) Atrial fibrillation Code(s): I48.91 - UNSPECIFIED ATRIAL FIBRILLATION Qualifiers: Atrial fibrillation type: permanent Qualified Code(s): I48.2 - Chronic atrial fibrillation (4) Coronary artery disease Code(s): I25.10 - ATHSCL HEART DISEASE OF [place] CORONARY ARTERY W/O ANG PCTRS Qualifiers: Coronary Disease-Associated Artery/Lesion type: [place] artery [place] vs. transplanted heart: [place] heart Associated angina: without angina Qualified Code(s): I25.10 - Atherosclerotic heart disease of [place] coronary artery without angina pectoris (5) Hypertension Code(s): I10 - ESSENTIAL (PRIMARY) HYPERTENSION Qualifiers: Hypertension type: essential hypertension Qualified Code(s): I10 - Essential (primary) hypertension (6) Pulmonary HTN Code(s): I27.20 - PULMONARY HYPERTENSION, UNSPECIFIED (7) Sarcoidosis Code(s): D86.9 - SARCOIDOSIS, UNSPECIFIED (8) Shortness of breath Code(s): R06.02 - SHORTNESS OF BREATH Assessment/Plan ASSESSMENT AND PLAN: Acute on Chronic Hypoxic and Hypercapneic Respiratory Failure Acute on Chronic Diastolic Heart Failure COPD Staph bacteremia Sarcoidosis Severe Pulmonary HTN Atrial Fibrillation HTN Hyperlipidemia Hematuria Anemia - monitor urine output, creatinine - daily weights - O2 to keep SpO2>90% - inhaled bronchodilators - rate control - prednisone - normal transfusion threshold - replete k DR ALBERT
[2018-08-25] MEDS ORDERED: PICC LINE 8 ML FLUSH PROTOCOL IVPUSH PRN (13:37)
--- NOTE | 2018-08-25 13:55 | DS ---
Physical Exam: SUBJECTIVE: Patient seen and examined at bedside. Denies chest pain or shortness of breath. Discharged today, Central line removed, PICC line inserted via I.R. OBJECTIVE: Vital Signs Period Temp Pulse Resp BP Sys/Garza Pulse Ox Last 24 Hr 98.2 F-99.8 F 90-107 20-21 112-127/53-79 99-100 PHYSICAL EXAM GENERAL: Awake Alert, pleasant HEAD: NC/AT EYES: PERRLA EOMI LUNGS: B/L Rales HEART: Irregularly irregular ABDOMEN: Soft NDNT, No HSM BS+ EXTREMITIES: No CCE, Right ankle tender to palpation NEUROLOGICAL: Cranial nerves II through XII grossly intact. Normal speech, gait not observed. PSYCH: Normal mood, normal affect. SKIN: Warm, dry, normal turgor, no rashes or lesions noted. LABS Laboratory Results - last 24 hr 08/22/18 08/24/18 08/24/18 09:45 16:35 21:08 WBC RBC Hgb Hct MCV MCH MCHC RDW Plt Count MPV Sodium Potassium Chloride Carbon Dioxide Anion Gap BUN Creatinine Creat Clearance w eGFR POC Glucometer 153 150 Random Glucose Calcium Phosphorus Magnesium Total Bilirubin AST ALT Alkaline Phosphatase Total Protein Albumin Digoxin Blood Type B POSITIVE Antibody Screen Negative Crossmatch See Detail 08/25/18 08/25/18 08/25/18 05:48 05:48 06:13 WBC 5.8 RBC 3.29 L Hgb 8.1 L Hct 24.6 L MCV 74.7 L MCH 24.5 L MCHC 32.8 RDW 25.6 H Plt Count 177 MPV 8.0 Sodium 138 Potassium 3.4 L Chloride 99 Carbon Dioxide 29 Anion Gap 10 BUN 10 Creatinine 0.4 L Creat Clearance w eGFR > 60 POC Glucometer 106 Random Glucose 104 Calcium 7.3 L Phosphorus 1.9 L Magnesium 1.8 Total Bilirubin 1.0 AST 13 L ALT 9 L Alkaline Phosphatase 87 Total Protein 5.0 L Albumin 1.6 L Digoxin 0.37 L Blood Type Antibody Screen Crossmatch 08/25/18 12:41 WBC RBC Hgb Hct MCV MCH MCHC RDW Plt Count MPV Sodium Potassium Chloride Carbon Dioxide Anion Gap BUN Creatinine Creat Clearance w eGFR POC Glucometer 126 Random Glucose Calcium Phosphorus Magnesium Total Bilirubin AST ALT Alkaline Phosphatase Total Protein Albumin Digoxin Blood Type Antibody Screen Crossmatch HOSPITAL COURSE: Date of Admission:07/25/18 Ms. Jim was admitted for the treatment of congestive heart failure and COPD exacerbation. Pt was given lasix diuereis as well as supplemental oxygen therapy by BiPap and put on high dose steroids. Ms Jim slowly began to improve. During hospitalization, pt developed gross hematuria for a few days while in hospital and a drop in her hemoglobin. Renal sonogram revealed right hydronephrosis and possible clots in the bladder. Her eliquis was stopped and a cystoscopy was performed to evaluate the cause. It was determined that pt was bleeding due to hemorrhagic cystitis. Pt's A culture of her blood showed an infection with antibiotic sensitive bacteria. She was started on a 14 day course of nafcillin Pt became hypotensive during procedure which led to acute kidney injury. Pt was admitted to the ICU and interventional radiology was consulted for placement of b/l nephrostomy tubes to mitigate pt's post-renal pathology. B/l percutaneous nephrostomy tubes were placed to allow drainage of urine. Renal function significantly improved back to normal, peaking at a creatinine of 5.3 and returning to normal ranges after percutaneous nephrostomy tubes inserted. MRS. Jim's respiratory status returned to baseline and was discharged today. Dr Garcia, ID, switched to Cefazolin 2 gm Q8H for 14 days. PICC line inserted by Dr Anderson today as well. Minutes to complete discharge: 35 Discharge Summary Reason For Visit: CHF Current Active Problems SANAM (acute kidney injury) (Acute) Acute CHF (congestive heart failure) (Acute) Acute on chronic respiratory failure with hypoxia and hypercapnia (Acute) CHF (congestive heart failure) (Acute) Condition: Improved - Instructions Diet, Activity, Other Instructions: For Mrs. Redman's Health Care Provider/Rehab/Nursing Ms. Jim was adnitted for the treatment of congestive heart failure and COPD exacerbation. She was given lasix diuereis as well as supplemental oxygen therapy by BiPap and put on high dose steroids. Ms Jim slowlly began to improve. During hospitalization, she developed gross hematuria for a few days while in hospital and a drop in her hemoglobin. Renal songram revealed right hydronephrosis and clots in the bladder. Her eliquis was stopped and a cystoscopy was performed to evaluate the cause. It was determined that pt was bleeding due to hemorrhagic cystitis. A culture of her blood showed an infection with antibiotic sensitive bacteria.She was started on a 14 day course of nafcillin Pt became hypotensive during procedure which led to acute kidney injury. For this b/l percutaneous nephrostomy was placed to allow drainage of urine. Renal function significantly improved back to normal. MRS. Jim respiratory status is currently at baseline and is able to return to her living facility. Medical Recommendations: -Please discontinue your eliquis use for now, as your blood counts have been low and you were recently bleeding in the hospital -You have tubes connected to your kidneys allowing drainage of urine. Please have a qualified individual empty these nephrostomy bags daily -You need to make an appointment with Dr. Mckeon for internalization of these nephrostomy tubes after you finish your antibiotics New Medicines -Please take prednisone on a tapering dose in the following manner -20mg once in the morning for one more day -15mg once in the morning for 3 days -10mg once in the morning for 3 days -5mg once in the morning for 3 days -then stop -Please take Cefazolin for 15 days. 2 Grams every 8 hours. Referrals: -please see your primary care physician within 1 week -please make an appointment to see Dr. Nicole, the turf sales person, within 1 week of discharge -please make an appointment with Dr. Mckeon, the interventional radiologist, to follow up with your nephrostomy tubes Referrals: Gerald Nicole MD [Staff Physician] - 1 Week Balwinder Stephenson [Primary Care Provider] - 1 Week Janak Watkins MD [Staff Physician] - 3 Weeks - Home Medications Comprehensive Discharge Medication List: Ambulatory Orders Atorvastatin Ca [Lipitor] 20 mg PO HS 04/16/18 Escitalopram Oxalate [Lexapro -] 10 mg PO DAILY 04/16/18 Folic Acid 1 mg PO DAILY 04/16/18 Ipratropium [place] [Atrovent Hfa] 1 neb NEB Q4H PRN 04/17/18 Albuterol Sulfate [Proventil HFA Inhaler -] 1 - 2 inh PO QID PRN 06/20/18 Budesonide/Formeterol Fumarate [SYMBICORT 160/4.5mcg -] 1 inh PO BID 06/20/18 Furosemide [Lasix] 40 mg PO DAILY 06/20/18 Lorazepam 0.5 mg PO Q8H PRN 06/20/18 Omeprazole 20 mg PO DAILY 06/20/18 Atenolol [Tenormin] 25 mg PO BID #30 tablet 06/23/18 Polyethylene Glycol 3350 [Miralax 119 gm Btl -] 17 gm PO BID bottle 06/23/18 Sennosides [Senna -] 2 tab PO HS tablet 06/23/18 Cefazolin Sodium in 0.9 % NaCl [Cefazolin 2 G/100 ml-0.9% NaCl] 2 gm IV Q8H #45 plast..bag 08/25/18 Prednisone See Taper PO DAILY #30 tablet 08/25/18 This patient is new to me today: No Emergency Visit: Yes ED Registration Date: 07/25/18 Care time: The patient presented to the Emergency Department on the above date and was hospitalized for further evaluation of their emergent condition. Critical Care patient: No - Discharge Referral Referred to [facility] Med P.C.: No
[2018-08-25] MEDS ORDERED: POTASSIUM CHLORIDE TABS 20 MEQ TABLET.ER (FP) PO ONE (14:46)
--- NOTE | 2018-08-25 14:46 | PN ---
Progress Note, Physician History of Present Illness: Pt seen and examined at bedside. She is awake and appears comfortable. She denies shortness of breath. - Current Medication List Current Medications: Active Medications Budesonide/Formoterol Fumarate (Symbicort 160/4.5mcg -) 2 puff IH BID [facility] Last Admin: 08/25/18 09:19 Dose: 2 puff Digoxin (Lanoxin -) 0.125 mg PO DAILY [facility] Last Admin: 08/25/18 09:19 Dose: 0.125 mg IV Flush (Picc Line Flush) 8 ml IVPUSH PRN PRN PRN Reason: Protocol Nafcillin Sodium 2 gm/ (Dextrose) 100 mls @ 100 mls/hr IVPB Q4H-IV [facility]; Protocol Last Admin: 08/25/18 13:34 Dose: 100 mls/hr Insulin Aspart (Novolog Vial Sliding Scale -) 1 vial SQ ACHS [facility]; Protocol Last Admin: 08/25/18 12:43 Dose: Not Given Metoprolol Tartrate (Lopressor -) 50 mg NGT TID [facility] Last Admin: 08/25/18 13:35 Dose: 50 mg Metoprolol Tartrate (Lopressor Injection -) 5 mg IVPUSH Q4H PRN PRN Reason: TACHYCARDIA Last Admin: 08/20/18 08:37 Dose: 5 mg Ondansetron HCl (Zofran Injection) 4 mg IVPUSH Q6H PRN PRN Reason: NAUSEA AND/OR VOMITING Pantoprazole Sodium (Protonix -) 20 mg PO DAILY [facility] Last Admin: 08/25/18 09:19 Dose: 20 mg Polyethylene Glycol (Miralax (For Daily Use) -) 17 gm PO BID [facility] Last Admin: 08/25/18 09:20 Dose: Not Given Prednisone (Deltasone -) 20 mg PO DAILY [facility] Last Admin: 08/25/18 09:19 Dose: 20 mg Senna (Senna -) 2 tab PO HS [facility] Last Admin: 08/24/18 21:10 Dose: Not Given Sodium Chloride ([place] Nasal [place] -) 2 spray NS BID PRN PRN Reason: NASAL CONGESTION - Objective Vital Signs: Vital Signs Temperature 98.9 F 08/25/18 09:00 Pulse Rate 90 08/25/18 10:00 Respiratory Rate 21 H 08/25/18 09:00 Blood Pressure 117/59 L 08/25/18 09:00 O2 Sat by Pulse Oximetry (%) 100 08/25/18 10:00 Constitutional: Yes: Calm Eyes: Yes: Conjunctiva Clear HENT: Yes: Atraumatic Cardiovascular: Yes: S1, S2 Respiratory: Yes: CTA Bilaterally Gastrointestinal: Yes: Normal Bowel Sounds, Soft Genitourinary: Yes: [place] Present, Other (bilateral nephrostomy tubes) Musculoskeletal: Yes: WNL Edema: No Neurological: Yes: Oriented Psychiatric: Yes: Oriented Labs: CBC, BMP 08/25/18 05:48 08/25/18 05:48 INR, PTT INR 1.74 (0.83-1.09) H 08/16/18 09:25 Problem List - Problems (1) SANAM (acute kidney injury) Code(s): N17.9 - ACUTE KIDNEY FAILURE, UNSPECIFIED (2) CHF (congestive heart failure) Code(s): I50.9 - HEART FAILURE, UNSPECIFIED (3) Abdominal pain Code(s): R10.9 - UNSPECIFIED ABDOMINAL PAIN (4) Atrial fibrillation Code(s): I48.91 - UNSPECIFIED ATRIAL FIBRILLATION Qualifiers: Atrial fibrillation type: permanent Qualified Code(s): I48.2 - Chronic atrial fibrillation Assessment/Plan Current Medications Generic Name Dose Route Start Last Admin Trade Name Freq PRN Reason Stop Dose Admin Budesonide/Formoterol Fumarate 2 puff 08/20/18 10:00 08/25/18 09:19 Symbicort 160/4.5mcg - IH 2 puff BID LISA Administration Digoxin 0.125 mg 08/21/18 10:00 08/25/18 09:19 Lanoxin - PO 0.125 mg DAILY LISA Administration IV Flush 8 ml 08/25/18 13:37 Picc Line Flush IVPUSH PRN PRN Protocol Nafcillin Sodium 2 gm/ 100 mls @ 100 mls/hr 08/20/18 02:00 08/25/18 13:34 Dextrose IVPB 100 mls/hr Q4H-IV LISA Administration Protocol Insulin Aspart 1 vial 08/20/18 07:00 08/25/18 12:43 Novolog Vial Sliding Scale - SQ Not Given ACHS LISA Protocol Metoprolol Tartrate 50 mg 08/20/18 06:00 08/25/18 13:35 Lopressor - NGT 50 mg TID LISA Administration Metoprolol Tartrate 5 mg 08/20/18 00:57 08/20/18 08:37 Lopressor Injection - IVPUSH 5 mg Q4H PRN Administration TACHYCARDIA Ondansetron HCl 4 mg 08/20/18 00:57 Zofran Injection IVPUSH Q6H PRN NAUSEA AND/OR VOMITING Pantoprazole Sodium 20 mg 08/20/18 10:00 08/25/18 09:19 Protonix - PO 20 mg DAILY LISA Administration Polyethylene Glycol 17 gm 08/20/18 10:00 08/25/18 09:20 Miralax (For Daily Use) - PO Not Given BID LISA Prednisone 20 mg 08/22/18 11:45 08/25/18 09:19 Deltasone - PO 20 mg DAILY LISA Administration Senna 2 tab 08/20/18 22:00 08/24/18 21:10 Senna - PO Not Given HS LISA Sodium Chloride 2 spray 08/20/18 00:57 [place] Nasal [place] - NS BID PRN NASAL CONGESTION Impression 1. SANAM 2. hypotension 3. pulm HTN 4. CHF 5. hematuria 6. sarcoid 7. COPD 8. a-fib 9. hx of HTN 10. hyperlipidemia 11. hyperkalemia resolved 12. mild hydro on ultrasound 13. hypokalemia Plan - replace potassium - replace phos - repeat labs in am - will need urology /ir follow up - renal function stable - will follow Dr Del Angel
--- NOTE | 2018-08-25 15:20 | PN ---
Progress Note, Physician History of Present Illness: Much more awake and alert today. Conversant. Asking appropriate questions Breathing non-labored Supine in bed S/P bilateral PCN Afebrile - Current Medication List Current Medications: Active Medications Budesonide/Formoterol Fumarate (Symbicort 160/4.5mcg -) 2 puff IH BID [facility] Last Admin: 08/25/18 09:19 Dose: 2 puff Digoxin (Lanoxin -) 0.125 mg PO DAILY [facility] Last Admin: 08/25/18 09:19 Dose: 0.125 mg IV Flush (Picc Line Flush) 8 ml IVPUSH PRN PRN PRN Reason: Protocol Nafcillin Sodium 2 gm/ (Dextrose) 100 mls @ 100 mls/hr IVPB Q4H-IV [facility]; Protocol Last Admin: 08/25/18 13:34 Dose: 100 mls/hr Insulin Aspart (Novolog Vial Sliding Scale -) 1 vial SQ ACHS [facility]; Protocol Last Admin: 08/25/18 12:43 Dose: Not Given Metoprolol Tartrate (Lopressor -) 50 mg NGT TID [facility] Last Admin: 08/25/18 13:35 Dose: 50 mg Metoprolol Tartrate (Lopressor Injection -) 5 mg IVPUSH Q4H PRN PRN Reason: TACHYCARDIA Last Admin: 08/20/18 08:37 Dose: 5 mg Ondansetron HCl (Zofran Injection) 4 mg IVPUSH Q6H PRN PRN Reason: NAUSEA AND/OR VOMITING Pantoprazole Sodium (Protonix -) 20 mg PO DAILY [facility] Last Admin: 08/25/18 09:19 Dose: 20 mg Polyethylene Glycol (Miralax (For Daily Use) -) 17 gm PO BID [facility] Last Admin: 08/25/18 09:20 Dose: Not Given Potassium Phos/Sodium Phos (Phos-Nak Packet -) 1 packet PO TID [facility] Stop: 08/27/18 06:01 Prednisone (Deltasone -) 20 mg PO DAILY [facility] Last Admin: 08/25/18 09:19 Dose: 20 mg Senna (Senna -) 2 tab PO HS [facility] Last Admin: 08/24/18 21:10 Dose: Not Given Sodium Chloride ([place] Nasal [place] -) 2 spray NS BID PRN PRN Reason: NASAL CONGESTION - Objective Vital Signs: Vital Signs Temperature 98.9 F 11/09/18 09:00 Pulse Rate 90 08/25/18 10:00 Respiratory Rate 21 H 08/25/18 09:00 Blood Pressure 117/59 L 08/25/18 09:00 O2 Sat by Pulse Oximetry (%) 100 08/25/18 10:00 Constitutional: Yes: No Distress Cardiovascular: Yes: S1, S2. No: Regular Rate and Rhythm Respiratory: Yes: CTA Bilaterally Gastrointestinal: Yes: Normal Bowel Sounds, Soft. No: Tenderness Genitourinary: Yes: Other (+ bilateral PCN) Edema: No Labs: CBC, BMP 08/25/18 05:48 08/25/18 05:48 INR, PTT INR 1.74 (0.83-1.09) H 08/16/18 09:25 Assessment/Plan Staph bacteremia/ sepsis MSSA Acute renal failure S/P bilateral PCN Leukocytosis resolved Lactic acidosis resolved Hemorrhagic cystitis COPD CHF Substitute cefazolin 2gm IVPB q8h x 14 days PICC for outpatient antibiotics
[2018-08-25] MEDS: SENNOSIDES 8.6MG TABLET (FP) PO SCH (22:49)
[2018-08-26] MEDS ORDERED: PT OWN MED DRAWER 7, Y5N ONE ×3 (01:25→10:36)
[2018-08-26] MEDS: NAFCILLIN - 2 GM in DEXTROSE 5%-WATER - 100 ML IVPB SCH ×3 (01:39→10:57)
[2018-08-26] MEDS: INSULIN SLIDING SCALE (NOVOLOG) 1 VIAL SQ SCH ×2 (06:17→12:31)
[2018-08-26] MEDS: NAPH,MB-DB/K PH,MBDB POWDER PACKET PO SCH (06:43)
[2018-08-26] MEDS: METOPROLOL TARTRATE 50 MG TABLET (FP) NGT SCH (06:43)
[2018-08-26] MEDS: predniSONE 20 MG TABLET (UD) PO SCH (09:33)
[2018-08-26] MEDS: DIGOXIN 0.125 MG TABLET (FP) PO SCH (09:33)
[2018-08-26] MEDS: PANTOPRAZOLE 20 MG TABLET (FP) PO SCH (09:33)
[2018-08-26] MEDS: POLYETHYLENE GLYCOL 3350 119 GM BTL PO SCH (09:34)
[2018-08-26] MEDS: BUDESONIDE/FORMETEROL FUMARATE 160/4.5 mcg INHALER IH SCH (09:34)
--- NOTE | 2018-08-26 11:23 | PN ---
Progress Note (short form) - Note Progress Note: Chief Complaint: sob History of Present Illness: no cp, dypsnea, dizzy, lightheadedness Current Medications Generic Name Dose Route Start Last Admin Trade Name Freq PRN Reason Stop Dose Admin Budesonide/Formoterol Fumarate 2 puff 08/20/18 10:00 08/26/18 09:34 Symbicort 160/4.5mcg - IH 2 puff BID LISA Administration Digoxin 0.125 mg 08/21/18 10:00 08/26/18 09:33 Lanoxin - PO 0.125 mg DAILY LISA Administration IV Flush 8 ml 08/25/18 13:37 Picc Line Flush IVPUSH PRN PRN Protocol Nafcillin Sodium 2 gm/ 100 mls @ 100 mls/hr 08/20/18 02:00 08/26/18 10:57 Dextrose IVPB 100 mls/hr Q4H-IV LISA Administration Protocol Insulin Aspart 1 vial 08/20/18 07:00 08/26/18 06:17 Novolog Vial Sliding Scale - SQ Not Given ACHS LISA Protocol Metoprolol Tartrate 50 mg 08/20/18 06:00 08/26/18 06:43 Lopressor - NGT 50 mg TID LISA Administration Metoprolol Tartrate 5 mg 08/20/18 00:57 08/20/18 08:37 Lopressor Injection - IVPUSH 5 mg Q4H PRN Administration TACHYCARDIA Ondansetron HCl 4 mg 08/20/18 00:57 Zofran Injection IVPUSH Q6H PRN NAUSEA AND/OR VOMITING Pantoprazole Sodium 20 mg 08/20/18 10:00 08/26/18 09:33 Protonix - PO 20 mg DAILY LISA Administration Polyethylene Glycol 17 gm 08/20/18 10:00 08/26/18 09:34 Miralax (For Daily Use) - PO 17 gm BID LISA Administration Potassium Phos/Sodium Phos 1 packet 08/25/18 15:00 08/26/18 06:43 Phos-Nak Packet - PO 08/27/18 06:01 1 packet TID LISA Administration Prednisone 20 mg 08/22/18 11:45 08/26/18 09:33 Deltasone - PO 20 mg DAILY LISA Administration Senna 2 tab 08/20/18 22:00 08/25/18 22:49 Senna - PO Not Given HS LISA Sodium Chloride 2 spray 08/20/18 00:57 [place] Nasal [place] - NS BID PRN NASAL CONGESTION CBC, BMP 08/25/18 05:48 08/25/18 05:48 Constitutional: Yes: No Distress, Calm Eyes: No: Sclera Icterus Cardiovascular: Yes: Pulse Irregular, S1, S2, . No: JVD, Gallop, Murmur Respiratory: Yes: CTA Bilaterally, Diminished (bases). No: Accessory Muscle Use Gastrointestinal: Yes: Normal Bowel Sounds, Soft. No: Tenderness Extremities: No: Cold Edema: No Integumentary: No: Jaundice diaphoresis Neurological: Yes: Alert, appropriate Psychiatric: No: Agitated Echo 05/03: nl LVEF. mild RVE, mild-mod RV hypo. L/NEENA. mod MR/TR. RVSP at least 88 mmHg Echo 03/2017: Mild conc lvh. nl lv/rv size/fn, mod ronnie, mod mr, mod tr, rvsp 40- 50 EKG: afib with PVCs CXR 08/19: stable bibasilar changes L > R tele: afib, rate ok Assessment/Plan hypotension, NSTEMI, staph bacteremia: -periop hypotension 08/11 during cysto, briefly on pressors. likely due to bacteremia, overdiuresis -trop 2.0 the following day, trended down, likely Type II MT sec to hypoperfusion/sepsis (+/- underlying stable CAD). ECG 08/[address]ressions inferior leads, improved on 08/12 tracing--cannot exclude Type I MT at time of events. -AC initially held for gross hematuria with large clots/hydronephrosis, was back on eliquis and now stopped again due to hematuria. defer aspirin -BB and afib HR control as doing, hemodynamically stable -defer invasive CAD mgmt approach given Type II MT > Type I here, plus pt's poor functional status with competing mortality limitations from severe lung dz , low likelihood to improve prognosis, and risks > benefits (including bleeding , AIN) afib: - HR control overall acceptable at present. - continue metoprolol and digoxin rate control (deferring calcium channel luz given concern about RV contractility depression (cor pulm pt)) - holding eliquis for hematuria, anemia. 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 initially 158 here. -cont lasix iv 80 bid - initially on IV lasix while on IV steroids - lasix held and IVF started 08/12 sec to SANAM, sepsis, hypotension after cysctocopy - 08/20: appears more dyspneic, JVD on exam--lasix resumed - 08/21: CXR with persistent effusions, likely 3rd spacing (albumin 1.3). renal fxn now normal. sbp 80s-90s, will likely require albumin along with lasix to diurese, will give trial today - 08/22: net positive due to IV fluid from antibiotics, IVF. IVF stopped. will give additional dose of spironolactone 100 mg x1, K is low despite supplementation. d/w nephrology - 08/23-10: symptoms improved, IVF off. no dyspnea. additional spironolactone per nephrology SANAM, hematuria with clots, obstructive uropathy with bilateral hydro: -renal fxn drastically improved s/p b/l perc nephrostomy--normal fxn now -renal following cardiac rojas stable for snf
--- NOTE | 2018-08-26 13:35 | PN ---
Progress Note (short form) - Note Progress Note: Breathing overall better. No acute events overnight. Intake & Output 08/23/18 08/24/18 08/25/18 08/26/18 23:59 23:59 23:59 23:59 Intake Total 1130 1770 760 120 Output Total 1110 1310 1700 1150 Balance 20 460 -940 -1030 Weight 182 lb 6.4 oz Last Vital Signs Temp Pulse Resp BP Pulse Ox 98.8 F 95 H 20 124/72 96 08/26/18 08:00 08/26/18 09:33 08/26/18 08:43 08/26/18 08:00 08/26/18 08:43 Active Medications Budesonide/Formoterol Fumarate (Symbicort 160/4.5mcg -) 2 puff IH BID [facility] Last Admin: 08/26/18 09:34 Dose: 2 puff Digoxin (Lanoxin -) 0.125 mg PO DAILY [facility] Last Admin: 08/26/18 09:33 Dose: 0.125 mg IV Flush (Picc Line Flush) 8 ml IVPUSH PRN PRN PRN Reason: Protocol Nafcillin Sodium 2 gm/ (Dextrose) 100 mls @ 100 mls/hr IVPB Q4H-IV LISA; Protocol Last Admin: 08/26/18 10:57 Dose: 100 mls/hr Insulin Aspart (Novolog Vial Sliding Scale -) 1 vial SQ ACHS [facility]; Protocol Last Admin: 08/26/18 12:31 Dose: Not Given Metoprolol Tartrate (Lopressor -) 50 mg NGT TID [facility] Last Admin: 08/26/18 06:43 Dose: 50 mg Metoprolol Tartrate (Lopressor Injection -) 5 mg IVPUSH Q4H PRN PRN Reason: TACHYCARDIA Last Admin: 08/20/18 08:37 Dose: 5 mg Ondansetron HCl (Zofran Injection) 4 mg IVPUSH Q6H PRN PRN Reason: NAUSEA AND/OR VOMITING Pantoprazole Sodium (Protonix -) 20 mg PO DAILY [facility] Last Admin: 08/26/18 09:33 Dose: 20 mg Polyethylene Glycol (Miralax (For Daily Use) -) 17 gm PO BID [facility] Last Admin: 08/26/18 09:34 Dose: 17 gm Potassium Phos/Sodium Phos (Phos-Nak Packet -) 1 packet PO TID [facility] Stop: 08/27/18 06:01 Last Admin: 08/26/18 06:43 Dose: 1 packet Prednisone (Deltasone -) 20 mg PO DAILY [facility] Last Admin: 08/26/18 09:33 Dose: 20 mg Senna (Senna -) 2 tab PO HS [facility] Last Admin: 08/25/18 22:49 Dose: Not Given Sodium Chloride ([place] Nasal [place] -) 2 spray NS BID PRN PRN Reason: NASAL CONGESTION Constitutional: Yes: NAD Eyes: Yes: WNL HENT: Yes: WNL Neck: Yes: WNL Cardiovascular: Yes: Pulse Irregular, S1, S2 Respiratory: Yes: Scattered basilar rhonchi Gastrointestinal: Yes: Normal Bowel Sounds, Soft Extremities: Yes: WNL Edema: No Labs: Laboratory Results - last 24 hr 08/25/18 08/25/18 08/26/18 17:05 23:00 05:30 POC Glucometer 110 115 Digoxin 0.40 L 08/26/18 08/26/18 05:52 11:42 POC Glucometer 98 131 Digoxin Problem List - Problems (1) Acute on chronic respiratory failure with hypoxia and hypercapnia Code(s): J96.21 - ACUTE AND CHRONIC RESPIRATORY FAILURE WITH HYPOXIA; J96.22 - ACUTE AND CHRONIC RESPIRATORY FAILURE WITH HYPERCAPNIA (2) Acute CHF (congestive heart failure) Code(s): I50.9 - HEART FAILURE, UNSPECIFIED (3) Atrial fibrillation Code(s): I48.91 - UNSPECIFIED ATRIAL FIBRILLATION Qualifiers: Atrial fibrillation type: permanent Qualified Code(s): I48.2 - Chronic atrial fibrillation (4) Coronary artery disease Code(s): I25.10 - ATHSCL HEART DISEASE OF [place] CORONARY ARTERY W/O ANG PCTRS Qualifiers: Coronary Disease-Associated Artery/Lesion type: [place] artery [place] vs. transplanted heart: [place]ig heart Associated angina: without angina Qualified Code(s): I25.10 - Atherosclerotic heart disease of [place] coronary artery without angina pectoris (5) Hypertension Code(s): I10 - ESSENTIAL (PRIMARY) HYPERTENSION Qualifiers: Hypertension type: essential hypertension Qualified Code(s): I10 - Essential (primary) hypertension (6) Pulmonary HTN Code(s): I27.20 - PULMONARY HYPERTENSION, UNSPECIFIED (7) Sarcoidosis Code(s): D86.9 - SARCOIDOSIS, UNSPECIFIED (8) Shortness of breath Code(s): R06.02 - SHORTNESS OF BREATH Assessment/Plan Acute on Chronic Hypoxic and Hypercapneic Respiratory Failure Acute on Chronic Diastolic Heart Failure COPD Sarcoidosis Severe Pulmonary HTN Atrial Fibrillation HTN Hyperlipidemia - ABX per ID - Lasix - monitor urine output, creatinine - daily weights - O2 to keep SpO2>90% - inhaled bronchodilators - rate control - AC - BD TX - Will need PICC Dr Salinas
[2018-08-26 14:46] VITALS: BP 119/68; PULSE 108; TEMP 98.6
== END 2018-08-26 01:30 | DRG 987 ==
LOC: JER 12:58 → JERBED 17:06 → EDBD 17:06 → J4W 07-26 23:40 → J7W 08-02 22:05 → JICU 08-11 18:47 → J4W 08-20 15:49
PROVIDERS: ADMIT Internal Medicine; ATTEND Internal Medicine
PROC: 0TCB8ZZ Extirpation of Matter from Bladder, Via Natural or Artificial Opening Endoscopic (ICD-10-PCS; 2018-08-11)
PROC: 0T5B8ZZ Destruction of Bladder, Via Natural or Artificial Opening Endoscopic (ICD-10-PCS; principal; 2018-08-11 13:00)
PROC: 0TBB8ZX Excision of Bladder, Via Natural or Artificial Opening Endoscopic, Diagnostic (ICD-10-PCS; 2018-08-11 13:00)
PROC: 0T9130Z Drainage of Left Kidney with Drainage Device, Percutaneous Approach (ICD-10-PCS; 2018-08-16)
PROC: 0T9030Z Drainage of Right Kidney with Drainage Device, Percutaneous Approach (ICD-10-PCS; 2018-08-16)
PROC: 05HM33Z Insertion of Infusion Device into Right Internal Jugular Vein, Percutaneous Approach (ICD-10-PCS; 2018-08-17)
PROC: 30233N1 Transfusion of Nonautologous Red Blood Cells into Peripheral Vein, Percutaneous Approach (ICD-10-PCS; 2018-08-17)
PROC: 02HV33Z Insertion of Infusion Device into Superior Vena Cava, Percutaneous Approach (ICD-10-PCS; 2018-08-25)
DX: I11.0 Hypertensive heart disease with heart failure (principal); J96.21 Acute and chronic respiratory failure with hypoxia; J96.22 Acute and chronic respiratory failure with hypercapnia; I21.A1 Myocardial infarction type 2; N17.0 Acute kidney failure with tubular necrosis; G93.41 Metabolic encephalopathy; A41.01 Sepsis due to Methicillin susceptible Staphylococcus aureus; J44.1 Chronic obstructive pulmonary disease with (acute) exacerbation; E87.3 Alkalosis; N30.01 Acute cystitis with hematuria; N13.6 Pyonephrosis; S37.29XA Other injury of bladder, initial encounter; E87.2 Acidosis; T81.40XA Infection following a procedure, unspecified, initial encounter; T81.44XA Sepsis following a procedure, initial encounter; E87.0 Hyperosmolality and hypernatremia; I50.33 Acute on chronic diastolic (congestive) heart failure; E78.5 Hyperlipidemia, unspecified; D86.9 Sarcoidosis, unspecified; I27.20 Pulmonary hypertension, unspecified; F41.8 Other specified anxiety disorders; R19.7 Diarrhea, unspecified; E87.6 Hypokalemia; I48.2 Chronic atrial fibrillation; I25.10 Atherosclerotic heart disease of native coronary artery without angina pectoris; I27.81 Cor pulmonale (chronic); R42 Dizziness and giddiness; E83.39 Other disorders of phosphorus metabolism; E66.9 Obesity, unspecified; Z68.33 Body mass index [BMI] 33.0-33.9, adult; E83.42 Hypomagnesemia; N28.1 Cyst of kidney, acquired; I08.1 Rheumatic disorders of both mitral and tricuspid valves; B95.62 Methicillin resistant Staphylococcus aureus infection as the cause of diseases classified elsewhere; E16.2 Hypoglycemia, unspecified; N32.9 Bladder disorder, unspecified; E87.5 Hyperkalemia; I95.89 Other hypotension; Z99.81 Dependence on supplemental oxygen; Z87.891 Personal history of nicotine dependence; Z66 Do not resuscitate
CPT/HCPCS: 36415; 36430; 36511; 36569; 36600; 50432; 71045-TC-FY; 73610-TC-RT-FY; 74018-TC-FY; 74019-TC-FY; 76700-TC; 76775-TC; 76856-TC; 77001-TC-FY; 80048; 80053; 80162; 81003; 81015; 82272; 82436; 82550; 82570; 82803; 82962; 83036; 83516; 83520; 83605; 83690; 83735; 83880; 84100; 84133; 84155; 84165; 84300; 84484; 85025; 85027; 85610; 86038; 86256; 86704; 86706; 86708; 86850; 86900; 86901; 86922; 87040; 87086; 87186; 87205; 87340; 87522; 88108; 88304-TC; 93005; 93010; 93306-TC; 93970-TC; 93971; 94640; 94660; 94760; 97116-GP; 97161-GP; 99285-25; A4358; C1729; C1751; C1769; G0480; J0131; J1756; J3480; J7030; P9038; P9058

== ENCOUNTER 2018-09-05 16:21 | Inpatient (IN) | payer OTHER ==
[2018-09-05 17:59] VITALS: BMI 27.4
[2018-09-05 18:23] LABS: BASO % 0.1 % (0-2.0); HEMATOCRIT 27.9 % (32.4-45.2); HEMOGLOBIN 9.1 GM/dL (10.7-15.3); LYMPH % 21.8 % (8-40); MCH 24.1 pg (25.7-33.7); MCHC 32.8 g/dl (32.0-36.0); MEAN CELL VOLUME 73.3 fl (80-96); MONO % 5.7 % (3.8-10.2); NEUT % 72.4 % (42.8-82.8); PLATELET COUNT 381 K/MM3 (134-434); RDW 24.4 % (11.6-15.6); WHITE BLOOD COUNT 6.1 K/mm3 (4.0-10.0)
--- NOTE | 2018-09-05 18:29 | PDOC ---
History of Present Illness - General Chief Complaint: Lethargy Stated Complaint: LETHARGIC Time Seen by Provider: 09/05/18 16:28 - History of Present Illness Initial Comments: 09/05/18 18:26 Patient is an 81 year old female with past medical history of Chronic respiratory failure, COPD (O2-dependent on 3L NC), diastolic CHF, CAD, HTN, Pulmonary HTN, sarcoidosis, hemorrhagic cystitis (s/p cystoscopy 08/11, s/p b/l nephrostomy tube placement 08/16), [facility] due to lethargy and hematuria noted on the left nephrostomy tube. Patient was recently discharged due to COPD exacerbation, Bacteremia and MSSA+ UTI, and hemorrhagic cystitis s/p nephrostomy tube placement. Prior to discharge , PICC line was placed for patient to continue Cefazolin for 15 more days. Today , patient was brought in from [place] due to lethargy and hematuria. Patient could not explain her symptoms when asked, and just states "help me". Patient denies SOB, chest pain, headache, dizziness, fever, chills, abdominal pain, urinary symptoms. Past History - Past Medical History Allergies/Adverse Reactions: Allergies Allergy/AdvReac Type Severity Reaction Status Date / Time No Known Allergies Allergy Verified 06/19/18 21:10 Home Medications: Ambulatory Orders Atorvastatin Ca [Lipitor] 20 mg PO HS 04/16/18 Escitalopram Oxalate [Lexapro -] 10 mg PO DAILY 04/16/18 Folic Acid 1 mg PO DAILY 04/16/18 Ipratropium [place] [Atrovent Hfa] 1 neb NEB Q4H PRN 04/17/18 Albuterol Sulfate [Proventil HFA Inhaler -] 1 - 2 inh PO QID PRN 06/20/18 Budesonide/Formeterol Fumarate [SYMBICORT 160/4.5mcg -] 1 inh PO BID 06/20/18 Furosemide [Lasix] 40 mg PO DAILY 06/20/18 Lorazepam 0.5 mg PO Q8H PRN 06/20/18 Omeprazole 20 mg PO DAILY 06/20/18 Atenolol [Tenormin] 25 mg PO BID #30 tablet 06/23/18 Polyethylene Glycol 3350 [Miralax 119 gm Btl -] 17 gm PO BID bottle 06/23/18 Sennosides [Senna -] 2 tab PO HS tablet 06/23/18 Cefazolin Sodium in 0.9 % NaCl [Cefazolin 2 G/100 ml-0.9% NaCl] 2 gm IV Q8H #45 plast..bag 08/25/18 Prednisone See Taper PO DAILY #30 tablet 08/25/18 Anemia: Yes (Pernicious) Asthma: Yes Cancer: No Cardiac Disorders: Yes (AF) CVA: No COPD: Yes CHF: Yes Dementia: No Diabetes: No GI Disorders: No Disorders: No HTN: Yes Hypercholesterolemia: Yes Liver Disease: No Psychiatric Problems: Yes (ANXIETY.) Seizures: No Thyroid Disease: No - Surgical History Abdominal Surgery: Yes (abdominal) Appendectomy: No Cardiac Surgery: No Cholecystectomy: Yes Lung Surgery: No (PT DENIES) Neurologic Surgery: No Orthopedic Surgery: Yes (cervical spine/hardware) - Immunization History Immunization Up to Date: No - Suicide/Smoking/Psychosocial Hx Smoking Status: No Smoking History: Never smoked Years of Tobacco Use: 0 Have you smoked in the past 12 months: No Number of Cigarettes Smoked Daily: 0 Hx Alcohol Use: No Drug/Substance Use Hx: No Substance Use Type: None Hx Substance Use Treatment: No *Physical Exam - Vital Signs Last Vital Signs Temp Pulse Resp BP Pulse Ox 98.0 F 71 18 121/50 L 95 09/05/18 17:56 09/05/18 17:56 09/05/18 17:56 09/05/18 17:56 09/05/18 17:56 - Physical Exam General Appearance: Yes: Other (Lethargic, arousable by voice, on 3L NC) HEENT: positive: EOMI, AMUREEN, Normal ENT Inspection Neck: positive: Trachea midline, Supple Respiratory/Chest: positive: Lungs Clear, Decreased Breath Sounds, Crackles Cardiovascular: positive: Irregularly Irregular. negative: Murmur Vascular Pulses: Dorsalis-Pedis (R): 2+, Doralis-Pedis (L): 2+ Gastrointestinal/Abdominal: positive: Normal Bowel Sounds, Tender, Soft ED Treatment Course - LABORATORY CBC & Chemistry Diagram: 09/06/18 11:35 09/06/18 11:35 - RADIOLOGY Radiology Studies Ordered: Category Date Time Status CHEST X-RAY PORTABLE* [RAD] Stat Radiology 09/05/18 17:46 Ordered Medical Decision Making - Medical Decision Making 09/05/18 18:40 Patient is an 81 year old female with past medical history of Chronic respiratory failure, COPD (O2-dependent on 3L NC), diastolic CHF, CAD, HTN, Pulmonary HTN, sarcoidosis, hemorrhagic cystitis (s/p cystoscopy 08/11, s/p b/l nephrostomy tube placement 08/16), was brought in [facility] from [facility] due to lethargy and hematuria noted on the left nephrostomy tube. General: somnolent, arousable to voice, on 3L NC HEENT: PERRLA, sclerae anicteric, no nasal discharge NEck: supple, trachea midline Lung: +crackles L>R, diminished breath sounds at the bases Cardio: irregularly irregular, no murmurs, rubs or gallops Abdomen: soft, +tenderness on all quadrants, NABS Ext: +1 pitting edema A: DDX includes but not limited to UTI, PNA, acute on chronic respiratory failure, CHF exacerbation, electrolyte abnormalities P: CBC, CMP EKG CXR UA PT/INR *DC/Admit/Observation/Transfer Diagnosis at time of Disposition: Hypokalemia, Elevated INR - Discharge Dispostion Condition at time of disposition: Stable - Referrals - Patient Instructions - Post Discharge Activity
[2018-09-05 18:41] LABS: URINE APPEARANCE CLEAR; URINE BILIRUBIN NEGATIVE (<2.0 mg/dL); URINE COLOR STRAW; URINE GLUCOSE (UA) NEGATIVE (NEGATIVE); URINE KETONE NEGATIVE (NEGATIVE); URINE LEUK ESTERASE 1+ (NEGATIVE); URINE NITRITE NEGATIVE (NEGATIVE); URINE PROTEIN NEGATIVE (NEGATIVE); URINE UROBILINOGEN NEGATIVE mg/dL (0.2-1.0)
[2018-09-05 18:52] LABS: URINE BACTERIA RARE /hpf (NONE SEEN); YEAST RARE
[2018-09-05 19:22] LABS: INR 10.87 (0.83-1.09); PROTHROMBIN TIME (PATIENT) 131.4 SEC (9.7-13.0)
--- NOTE | 2018-09-05 20:22 | PDOC ---
Attending Attestation - HPI HPI: 09/05/18 20:26 The patient is a 81 year old female, with a significant past medical history of Chronic respiratory failure, COPD (O2-dependent on 3L NC), diastolic CHF, CAD, HTN, Pulmonary HTN, sarcoidosis, hemorrhagic cystitis (s/p cystoscopy 08/11, s/ p b/l nephrostomy tube placement 08/16), was brought via ems from [facility] for evaluation of AMS and hematuria from nephrostomy tube today.0 Allergies: NKDA Past surgical history: nephrostomy tube - Physicial Exam PE: 09/05/18 20:26 GENERAL: Well developed, well nourished. Awake and alert. No acute distress. HEENT: Normocephalic, atraumatic. PERRLA, EOMI. No conjunctival pallor. Sclera are non- icteric. Moist mucous membranes. Oropharynx is clear. NECK: Supple. Full ROM. No JVD. Carotid pulses 2+ and symmetric, without bruits. No thyromegaly. No lymphadenopathy. CARDIOVASCULAR: (+) PICC line to anterior right chest. Irregular HR. Regular rhythm. No murmurs , rubs, or gallops. Distal pulses are 2+ and symmetric. PULMONARY: No evidence of respiratory distress. Lungs clear to auscultation bilaterally. No wheezing, rales or rhonchi. ABDOMINAL: Soft. Non-tender. Non-distended. No rebound or guarding. No organomegaly. Normoactive bowel sounds. MUSCULOSKELETAL (+)bilateral nephrostomy tube, Normal range of motion at all joints. No bony deformities or tenderness. No CVA tenderness. EXTREMITIES: No cyanosis. No clubbing. No edema. No calf tenderness. SKIN: Warm and dry. Normal capillary refill. No rashes. No jaundice. NEUROLOGICAL: Alert, awake, appropriate. Cranial nerves 2-12 intact. Normoreflexic in the upper and lower extremities. Normal speech. Toes are down-going bilaterally. PSYCHIATRIC: Cooperative. Good eye contact. Appropriate mood and affect. Baseline - Medical Decision Making 09/05/18 20:26 Documentation prepared by Valentine Joyner, acting as medical clerical assistant for Deanna Villarreal MD <Valentine Joyner - Last Filed: 09/05/18 20:26> - Resident Resident Name: Jacqueline Bains - ED Attending Attestation I have performed the following: I have examined & evaluated the patient, The case was reviewed & discussed with the resident, I agree w/resident's findings & plan, Exceptions are as noted - Medical Decision Making 09/05/18 22:37 81-year-old female with a extensive medical history, was brought in from the senior care for hematuria from her nephrostomy tube discharged from the hospital last month on no anticoagulation because she had held had gross hematuria with large clots. In the past. She had been on eliquist but this was stopped and in reviewing her list from the senior care,there are no intake anticoagualnt listed listed. The elevation in her INR to 10 is not explained. Initially it was felt the blood was drawn from the PICC line which gets flushed with heparin and that that may have been due to the elevated INR. However, the lab was redrawn from the other arm at new site and INR still remained elevated -will give vit k and FFPs to treat elevated INR she has a History of A. fib and her EKG today is rate controlled A. fib with what appears to be appears to be u waves -she is receiving potassium supplementation for a potassium of 2 -pt admitted to tele 09/05/18 22:45 pt has chronic anemia and her hbg/hct is her baseline 09/05/18 22:49 09/05/18 22:59 09/06/18 02:29 I called . [facility] [phone] is this will be cleaned nephew and spoke with them. He stated that the healthcare proxy and legal brewery representative for Ms. Redman is her granddaughter Courtney Chaparro as [phone] <Deanna Villarreal - Last Filed: 09/06/18 02:31>
[2018-09-05 20:40] LABS: ANISOCYTOSIS 2+; MACROCYTOSIS 1+
[2018-09-05 20:41] LABS: OVALOCYTE 1+; PLATELET ESTIMATE ADEQUATE; TARGET CELLS 1+
--- NOTE | 2018-09-05 20:57 | PDOC ---
*Physical Exam - Vital Signs Last Vital Signs Temp Pulse Resp BP Pulse Ox 98.0 F 71 18 121/50 L 95 09/05/18 17:56 09/05/18 17:56 09/05/18 17:56 09/05/18 17:56 09/05/18 17:56 - Physical Exam Comments: 09/05/18 20:57 General Appearance: Nourished. No Apparent Distress HEENT: No Pharyngeal Erythema, Tonsillar Exudate, Tonsillar Erythema Neck: No Cervical Lymphadenopathy Respiratory/Chest: Lungs Clear, Normal Breath Sounds. No Crackles, Rales, Rhonchi, Wheezing Cardiovascular: Regular Rhythm, Regular Rate. No Murmur, Gallops, Rubs Gastrointestinal/Abdominal: Normal Bowel Sounds, Soft. No Guarding, Rebound, Tenderness Musculoskeletal: No CVA Tenderness Extremity: Normal Capillary Refill Integumentary: Normal Color, Dry, Warm Neurologic: Fully Oriented, Alert, Normal Mood/Affect, Normal Response, ED Treatment Course - LABORATORY CBC & Chemistry Diagram: 09/05/18 17:59 09/05/18 20:30 - ADDITIONAL ORDERS Additional order review: Laboratory Results 09/05/18 09/05/18 09/05/18 18:20 17:59 17:59 PT with INR 131.40 H INR 10.87 H* PTT (Actin FS) 91.6 H Sodium Potassium Chloride Carbon Dioxide Anion Gap BUN Creatinine Creat Clearance w eGFR Random Glucose Calcium Total Bilirubin AST ALT Alkaline Phosphatase Total Protein Albumin Urine Color Straw Urine Appearance Clear Urine pH 8.0 D Ur Specific [place] 1.005 L Urine Protein Negative Urine Glucose (UA) Negative Urine Ketones Negative Urine Blood 3+ H Urine Nitrite Negative Urine Bilirubin Negative Urine Urobilinogen Negative Ur Leukocyte Esterase 1+ H Urine WBC (Auto) 11 Urine RBC (Auto) 33 Urine Bacteria Rare Urine Yeast Rare 09/05/18 17:59 PT with INR INR PTT (Actin FS) Sodium Cancelled Potassium Cancelled Chloride Cancelled Carbon Dioxide Cancelled Anion Gap Cancelled BUN Cancelled Creatinine Cancelled Creat Clearance w eGFR Cancelled Random Glucose Cancelled Calcium Cancelled Total Bilirubin Cancelled AST Cancelled ALT Cancelled Alkaline Phosphatase Cancelled Total Protein Cancelled Albumin Cancelled Urine Color Urine Appearance Urine pH Ur Specific [place] Urine Protein Urine Glucose (UA) Urine Ketones Urine Blood Urine Nitrite Urine Bilirubin Urine Urobilinogen Ur Leukocyte Esterase Urine WBC (Auto) Urine RBC (Auto) Urine Bacteria Urine Yeast 11/20/18 17:59 RBC 3.80 MCV 73.3 L MCHC 32.8 RDW 24.4 H MPV 8.0 Neutrophils % 72.4 D Lymphocytes % 21.8 D Monocytes % 5.7 Eosinophils % 0.0 Basophils % 0.1 Progress Note - Progress Note Progress Note: The patient is an 81 year old female who presents for evaluation of lethargy. The patient appears to be at her baseline mentally. She is pending lab results and dispo. Medical Decision Making - Medical Decision Making 09/05/18 23:27 INR is was initially elevated to 10 and repeated to confirm with the repeat INR being 11. Potassium is 2.0 with U waves noted on the patient's EKG. We will treat the patient with potassium, vitamin K and FFP and the patient will require admission for further management. It is unclear why the patient's INR is elevated as the patient was taken off anticoagulation with her last admission and per the patient's NH and their paperwork, she is not on any anticoagulation currently. We discussed the case with the hospitalist team who accepted the patient for admission. *DC/Admit/Observation/Transfer Diagnosis at time of Disposition: Hypokalemia, Elevated INR - Discharge Dispostion Condition at time of disposition: Stable Decision to Admit order: Yes - Referrals Referrals: Lester Barrera MD [Primary Care Provider] - - Patient Instructions - Post Discharge Activity
[2018-09-05 21:09] LABS: ANION GAP 11 MMOL/L (8-16); BLOOD UREA NITROGEN 15 mg/dL (7-18); CALCIUM 7.7 mg/dL (8.5-10.1); CHLORIDE 93 mmol/L (98-107); CO2 39 mmol/L (21-32); CREATININE 0.7 mg/dL (0.55-1.3); GLUCOSE,RANDOM 110 mg/dL (74-106); SODIUM 143 mmol/L (136-145)
[2018-09-05 21:14] LABS: INR 11.41 (0.83-1.09)
[2018-09-05] MEDS ORDERED: POTASSIUM CHLORIDE TABS 20 MEQ TABLET.ER (FP) PO ONE ×2 (21:20→22:25)
[2018-09-05] MEDS ORDERED: KCL 10 MEQ IVPB 10 MEQ/100 ML INFUS.BAG IVPB SCH ×2 (21:30→23:00)
[2018-09-05] MEDS ORDERED: KCL 10 MEQ IVPB 10 MEQ/100 ML INFUS.BAG IVPB ONE (22:16)
[2018-09-05 22:24] LABS: ALK PHOS 103 U/L (45-117); BILIRUBIN,DIRECT 0.6 mg/dL (0.0-0.2); BILIRUBIN,TOTAL 1.2 mg/dL (0.2-1); SGOT/AST 35 U/L (15-37); SGPT/ALT < 6 U/L (13-61); TOT PROT 6.8 g/dl (6.4-8.2)
[2018-09-05] MEDS ORDERED: PHYTONADIONE 5 MG TABLET PO ONE (22:59)
[2018-09-05] MEDS ORDERED: POTASSIUM CHLORIDE ORAL LIQUID 20 MEQ/15 ML PO ONE (23:09)
[2018-09-05] MEDS ORDERED: POTASSIUM CHLORIDE ORAL LIQUID 20 MEQ/15 ML ONE (23:18)
[2018-09-06] MEDS ORDERED: PHYTONADIONE 10 MG/1 ML AMP IM ONE (00:01)
--- NOTE | 2018-09-06 00:39 | HP ---
CHIEF COMPLAINT: drowsiness, blood through nephrostomy tube PCP: Dr. Barrera History obtained mainly from EMR as patient is drowsy and cannot proved history HISTORY OF PRESENT ILLNESS: 81 year old female with past medical history of Chronic respiratory failure, COPD (O2-dependent on 3L NC), diastolic CHF, CAD, HTN, Pulmonary HTN, sarcoidosis, hemorrhagic cystitis (s/p cystoscopy 08/11, s/p b/l nephrostomy tube placement 08/16), was brought in [facility] from [facility] due to lethargy and hematuria noted on the left nephrostomy tube. Patient was recently d/c on 08/26, was treated for MSSA bacteremia and was scheduled for 15 more days of IV cefazolin 2g IV q8hrs from date of discharge. Eliquis was d/c due to bleeding at that time. Pt found to have profoundly elevated INR on this admission. She is not on any known anticoagulants. ER course was notable for: (1) Vitamin K (2) FFP (3) Recent Travel: unknown PAST MEDICAL HISTORY: Chronic respiratory failure, COPD (O2-dependent on 3L NC) , diastolic CHF, CAD, HTN, Pulmonary HTN, sarcoidosis, hemorrhagic cystitis (s/ p cystoscopy 08/11, s/p b/l nephrostomy tube placement 08/16) PAST SURGICAL HISTORY: Social History: Smoking: no Alcohol: no Drugs: no Family History: unknown Allergies No Known Allergies Allergy (Verified 06/19/18 21:10) HOME MEDICATIONS: Home Medications Medication Instructions Recorded Atorvastatin Ca [Lipitor] 20 mg PO HS 04/16/18 Escitalopram Oxalate [Lexapro -] 10 mg PO DAILY 04/16/18 Folic Acid 1 mg PO DAILY 04/16/18 Ipratropium [place] [Atrovent Hfa] 1 neb NEB Q4H PRN 04/17/18 Albuterol Sulfate [Proventil HFA 1 - 2 inh PO QID PRN 06/20/18 Inhaler -] Budesonide/Formeterol Fumarate 1 inh PO BID 06/20/18 [SYMBICORT 160/4.5mcg -] Furosemide [Lasix] 40 mg PO DAILY 06/20/18 Lorazepam 0.5 mg PO Q8H PRN 06/20/18 Omeprazole 20 mg PO DAILY 06/20/18 Atenolol [Tenormin] 25 mg PO BID #30 tablet 06/23/18 Polyethylene Glycol 3350 [Miralax 17 gm PO BID bottle 06/23/18 119 gm Btl -] Sennosides [Senna -] 2 tab PO HS tablet 06/23/18 Cefazolin Sodium in 0.9 % NaCl 2 gm IV Q8H #45 plast..bag 08/25/18 [Cefazolin 2 G/100 ml-0.9% NaCl] Prednisone See Taper PO DAILY #30 tablet 08/25/18 REVIEW OF SYSTEMS - unable to obtain ROS as patient is drowsy and not able to effectively communicate PHYSICAL EXAMINATION Vital Signs - 24 hr 09/05/18 09/05/18 09/05/18 16:22 16:25 19:35 Temperature 98.0 F 98.0 F Pulse Rate 71 Pulse Rate [ 55 L Right Radial] Respiratory 18 17 Rate Blood Pressure 121/50 L Blood Pressure 127/58 L [Left Arm] O2 Sat by Pulse 100 95 100 Oximetry (%) GENERAL:drowsy, nontoxic appearing HEAD: Normal with no signs of trauma. EYES: Pupils equal, round and reactive to light, extraocular movements intact, sclera anicteric, conjunctiva clear. No lid lag. EARS, NOSE, THROAT: Ears normal, nares patent, oropharynx clear without exudates. Moist mucous membranes. NECK: Normal range of motion, supple without lymphadenopathy, JVD, or masses. LUNGS: Breath sounds equal, clear to auscultation bilaterally HEART: Regular rate and rhythm, normal S1 and S2 without murmur, rub or gallop. ABDOMEN: Soft, nontender, not distended, normoactive bowel sounds, no guarding, no rebound, no masses, b/l nephrostomy tubes, no blood seen MUSCULOSKELETAL: Normal range of motion at all joints. No bony deformities or tenderness. No CVA tenderness. UPPER EXTREMITIES: RUE PICC LOWER EXTREMITIES: 2+ pulses, warm, well-perfused. No calf tenderness. No peripheral edema. NEUROLOGICAL: slow speech, lethargic PSYCHIATRIC: lethargic SKIN: Warm, dry, normal turgor, no rashes or lesions noted, normal capillary refill. Laboratory Results - last 24 hr 09/05/18 09/05/18 09/05/18 17:59 17:59 17:59 WBC 6.1 RBC 3.80 Hgb 9.1 L Hct 27.9 L MCV 73.3 L MCH 24.1 L MCHC 32.8 RDW 24.4 H Plt Count 381 D MPV 8.0 Absolute Neuts (auto) 4.4 Total Counted 100 Neutrophils % 72.4 D Neutrophils % (Manual) 72.0 Band Neutrophils % 2.0 Lymphocytes % 21.8 D Lymphocytes % (Manual) 19.0 D Monocytes % 5.7 Monocytes % (Manual) 6 Eosinophils % 0.0 Basophils % 0.1 Myelocytes % (Man) 1 D Nucleated RBC % 1 H Differential Comment Man diff performed Platelet Estimate Adequate Platelet Comment Polychromasia 1+ Poikilocytosis 2+ Anisocytosis 2+ Microcytosis 1+ Macrocytosis 1+ Target Cells 1+ Ovalocytes 1+ Fragmented RBCs Few PT with INR INR PTT (Actin FS) 91.6 H Sodium Cancelled Potassium Cancelled Chloride Cancelled Carbon Dioxide Cancelled Anion Gap Cancelled BUN Cancelled Creatinine Cancelled Creat Clearance w eGFR Cancelled Random Glucose Cancelled Calcium Cancelled Total Bilirubin Cancelled Direct Bilirubin AST Cancelled ALT Cancelled Alkaline Phosphatase Cancelled Total Protein Cancelled Albumin Cancelled Urine Color Urine Appearance Urine pH Ur Specific [place] Urine Protein Urine Glucose (UA) Urine Ketones Urine Blood Urine Nitrite Urine Bilirubin Urine Urobilinogen Ur Leukocyte Esterase Urine WBC (Auto) Urine RBC (Auto) Urine Bacteria Urine Yeast Stool Occult Blood 09/05/18 09/05/18 09/05/18 17:59 18:20 20:30 WBC RBC Hgb Hct MCV MCH MCHC RDW Plt Count MPV Absolute Neuts (auto) Total Counted Neutrophils % Neutrophils % (Manual) Band Neutrophils % Lymphocytes % Lymphocytes % (Manual) Monocytes % Monocytes % (Manual) Eosinophils % Basophils % Myelocytes % (Man) Nucleated RBC % Differential Comment Platelet Estimate Platelet Comment Polychromasia Poikilocytosis Anisocytosis Microcytosis Macrocytosis Target Cells Ovalocytes Fragmented RBCs PT with INR 131.40 H INR 10.87 H* PTT (Actin FS) Sodium 143 Potassium 2.0 L* Chloride 93 L Carbon Dioxide 39 H Anion Gap 11 BUN 15 Creatinine 0.7 Creat Clearance w eGFR > 60 Random Glucose 110 H Calcium 7.7 L Total Bilirubin 1.2 H Direct Bilirubin 0.6 H AST 35 ALT < 6 L Alkaline Phosphatase 103 Total Protein 6.8 Albumin 2.0 L Urine Color Straw Urine Appearance Clear Urine pH 8.0 D Ur Specific [place] 1.005 L Urine Protein Negative Urine Glucose (UA) Negative Urine Ketones Negative Urine Blood 3+ H Urine Nitrite Negative Urine Bilirubin Negative Urine Urobilinogen Negative Ur Leukocyte Esterase 1+ H Urine WBC (Auto) 11 Urine RBC (Auto) 33 Urine Bacteria Rare Urine Yeast Rare Stool Occult Blood 09/05/18 09/05/18 20:30 21:25 WBC RBC Hgb Hct MCV MCH MCHC RDW Plt Count MPV Absolute Neuts (auto) Total Counted Neutrophils % Neutrophils % (Manual) Band Neutrophils % Lymphocytes % Lymphocytes % (Manual) Monocytes % Monocytes % (Manual) Eosinophils % Basophils % Myelocytes % (Man) Nucleated RBC % Differential Comment Platelet Estimate Platelet Comment Polychromasia Poikilocytosis Anisocytosis Microcytosis Macrocytosis Target Cells Ovalocytes Fragmented RBCs PT with INR 138.00 H INR 11.41 H* PTT (Actin FS) Sodium Potassium Chloride Carbon Dioxide Anion Gap BUN Creatinine Creat Clearance w eGFR Random Glucose Calcium Total Bilirubin Direct Bilirubin AST ALT Alkaline Phosphatase Total Protein Albumin Urine Color Urine Appearance Urine pH Ur Specific [place] Urine Protein Urine Glucose (UA) Urine Ketones Urine Blood Urine Nitrite Urine Bilirubin Urine Urobilinogen Ur Leukocyte Esterase Urine WBC (Auto) Urine RBC (Auto) Urine Bacteria Urine Yeast Stool Occult Blood Negative ekg reviewed- afib, normal rate, possible u waves appreciated CXR reviewed ASSESSMENT/PLAN: #Severe Hyperkalemia - may be secondary to lasix administration #Severe coagulopathy with reported bleeding through nephrostomy tubes (not on known anticoagulation) #Hx of hemorrhagic cystitis #Lethargy #Chronic respiratory failure - sarcoidosis, COPD #MSSA bacteremia on cefazolin for 4 more days #CHF #CAD #HTN -admit to telemetry for severe hypokalemia -avoid furosemide -supplement K IV and PO -monitor closely on personnel monitor -repeat K -Vitamin K 5mg PO -FFP x2 (history of bleed through nephrostomy tubes) -monitor closely for bleeding -head CT to r/o intracranial bleed -urology evaluation -avoid antiplatelets and heparin -c/w cefazolin 2g IV q8hrs for 4 more days -supplement oxygen through nasal cannula -c/w symbicort -c/w prednisone home dose -c/w atenolol -c/w lipitor -avoid sedatives -SCDs for DVT ppx -2g Na diet Visit type - Emergency Visit Emergency Visit: Yes ED Registration Date: 09/05/18 Care time: The patient presented to the Emergency Department on the above date and was hospitalized for further evaluation of their emergent condition. - New Patient This patient is new to me today: Yes Date on this admission: 09/06/18 - Critical Care Critical Care patient: No
[2018-09-06] MEDS ORDERED: BUDESONIDE/FORMETEROL FUMARATE 160/4.5 mcg INHALER IH ONE (00:56)
[2018-09-06] MEDS ORDERED: KCL 10 MEQ IVPB 10 MEQ/100 ML INFUS.BAG IVPB ONE ×2 (01:24→12:46)
[2018-09-06] MEDS: CEFAZOLIN 2 GM/D5W 2 GM/50 ML ML IVPB SCH ×3 (02:45→20:30)
--- NOTE | 2018-09-06 10:38 | CONSULT ---
Consultation: REQUESTING PROVIDER: Dr. Fitzgerald CONSULT REQUEST FOR HEMATOLOGY/ONCOLOGY: We have been asked to medically evaluate this patient for Supratherapeutic INR. HISTORY OF PRESENT ILLNESS: Unable to obtain information from patient due to medica condition Patient is an 81 year old female with a PMHx of COPD (dependent on 3L o2), Chronic respiratory failure, Atrial Fibrillation (recently take off of eliquis due to hematuria) Diastolic CHF, CAD, HTN, pulmonary HTN, sarcoidosis, hemorrhagic cystitis (s/p cystoscopy on 08/11 with b/l nephrostomy tube placement 08/16) who was [facility] from [facility] for lethary and increasing hematuria in the left nephrostomy tube. Patient was discharged this month 08/26/18 and was discharged with a 15 day course of IV Cefazolin through a PICC line. During this admission patient was found to have an elevated INR of 10.87 with Vitamin K and FFP given. However, patients repeat labs revealed an INR of 11.41 despite the FFP and Vit. K and subsequently we were consulted. PMHx: COPD (dependent on 3L o2), Chronic respiratory failure, Atrial Fibrillation (recently take off of eliquis due to hematuria) Diastolic CHF, CAD , HTN, pulmonary HTN, sarcoidosis, hemorrhagic cystitis (s/p cystoscopy on with b/l nephrostomy tube placement 08/16. PSHx: Cystoscopy (08/11/18) Social Hx: Unable to obtain Allergies: Denies REVIEW OF SYSTEMS: Unable to obtain due to patients medical condition PHYSICAL EXAMINATION Vital Signs - 24 hr 09/05/18 09/05/18 09/05/18 16:22 16:25 19:35 Temperature 98.0 F 98.0 F Pulse Rate 71 Pulse Rate [ 55 L Right Radial] Respiratory 18 17 Rate Blood Pressure 121/50 L Blood Pressure 127/58 L [Left Arm] O2 Sat by Pulse 100 95 100 Oximetry (%) GENERAL: Nonverbal, drowsy, in no acute distress. HEAD: Normal with no signs of trauma. EYES: Pupils equal, round and reactive to light, extraocular movements intact, sclera anicteric, conjunctiva clear. EARS, NOSE, THROAT: Oral thrush NECK: (-) lymphadenopathy, JVD, or masses. LUNGS: Decreased breath sounds anteriorly. No accessory muscle use. HEART: Regular rate with irregularly irregular rhythm, normal S1 and S2 without murmurs appreciated ABDOMEN: Soft, nontender, not distended, normoactive bowel sounds. No hepatomegaly or splenomegaly. Nephrostomy tube placement draining serous drainage but no sanguionous fluid. BREAST: No pain or discrete masses felt. No unusual nipple discharge or discoloration. UPPER EXTREMITIES: Right Upper Extremity PICC line placement with no erythema or drainage. No peripheral edema. LOWER EXTREMITIES: No peripheral edema. NEUROLOGICAL: Unable to assess PSYCHIATRIC: uncooperative. Poor eye contact SKIN: Left stage one 2x1cm buttock pressure injury Laboratory Results 09/05/18 17:59 09/05/18 20:30 09/05/18 20:30 Calcium 7.7 L Total Bilirubin 1.2 H Direct Bilirubin 0.6 H AST 35 ALT < 6 L Alkaline Phosphatase 103 Total Protein 6.8 Albumin 2.0 L Active Medications Generic Name Dose Route Start Last Admin Trade Name Freq PRN Reason Stop Dose Admin Atenolol 25 mg 09/06/18 10:00 Tenormin - PO BID LISA Atorvastatin Calcium 20 mg 09/06/18 22:00 Lipitor - PO HS LISA Budesonide/Formoterol Fumarate 2 puff 09/06/18 10:00 Symbicort 80/4.5mcg - IH BID LISA Escitalopram Oxalate 10 mg 09/06/18 10:00 Lexapro - PO DAILY LISA Folic Acid 1 mg 09/06/18 10:00 Folic Acid - PO DAILY LISA Cefazolin Sodium/Dextrose 2 gm in 50 mls @ 100 mls/hr 09/06/18 02:00 02:45 Ancef 2 Gm Premixed Ivpb - IVPB 100 mls/hr Q8H-IV LISA Administration Pantoprazole Sodium 20 mg 09/06/18 10:00 Protonix - PO DAILY LISA Prednisone 5 mg 09/06/18 10:00 Deltasone - PO DAILY LISA ASSESSMENT/PLAN: Patient is an 81 year old female who presented for lethary and worsening hematuria and was found to have profoundly elevated INR. Patient admitted for further monitoring and management Problem List: Supratherapeutic INR Coagulopathy. Severe Hyperkalema Lethary Chronic Respiratory failure due to COPD and Sarcoidosis MSSA bacteremia on IV Cefezolin Atrial Fibrillation (currently on no AC) Diastolic CHF CAD HTN PLAN: Patient given FFP and Vit. K with an INR now of 1.8. Possible etiologies for elevated INR would include occult liver disease, poor nutrition, and IV antibiotics. The initial lack of correction of INR with Vitamin K may reflect too short of a time period when a repeat laboratory was obtained. Would consider liver sonogram Visit type - Emergency Visit Emergency Visit: Yes ED Registration Date: 09/05/18 Care time: The patient presented to the Emergency Department on the above date and was hospitalized for further evaluation of their emergent condition. - New Patient This patient is new to me today: Yes Date on this admission: 09/06/18 - Critical Care Critical Care patient: No
--- NOTE | 2018-09-06 11:02 | EKG ---
Test Reason : Blood Pressure : / mmHG Vent. Rate : 063 BPM Atrial Rate : 105 BPM P-R Int : 000 ms QRS Dur : 108 ms QT Int : 336 ms P-R-T Axes : 000 -07 -76 degrees QTc Int : 343 ms ATRIAL FIBRILLATION SEPTAL INFARCT , AGE UNDETERMINED ABNORMAL ECG WHEN COMPARED WITH ECG OF 18-AUG-2018 11:21, SIGNIFICANT CHANGES HAVE OCCURRED Confirmed by CLAIRE SALMERON MD ([id number]) on 09/06/2018 11:01:45 AM Referred By: Confirmed By:CLAIRE SALMERON MD
[2018-09-06] MEDS: predniSONE 5 MG TABLET (UD) PO SCH (12:02)
[2018-09-06] MEDS: FOLIC ACID 1 MG TABLET (FP) PO SCH (12:03)
[2018-09-06] MEDS: ESCITALOPRAM OXALATE 10 MG TABLET (FP) PO SCH (12:03)
[2018-09-06] MEDS: ATENOLOL 25 MG TABLET (FP) PO SCH ×2 (12:04→21:50)
[2018-09-06] MEDS: PANTOPRAZOLE 20 MG TABLET (FP) PO SCH (12:04)
[2018-09-06 12:06] LABS: ANION GAP 6 MMOL/L (8-16); BASO % 0.3 % (0-2.0); BLOOD UREA NITROGEN 16 mg/dL (7-18); CALCIUM 7.8 mg/dL (8.5-10.1); CHLORIDE 93 mmol/L (98-107); CO2 > 45 mmol/L (21-32); CREATININE 0.6 mg/dL (0.55-1.3); EOS % 0.3 % (0-4.5); GLUCOSE,RANDOM 85 mg/dL (74-106); HEMATOCRIT 24.6 % (32.4-45.2); HEMOGLOBIN 7.7 GM/dL (10.7-15.3); LYMPH % 25.4 % (8-40); MAGNESIUM 1.7 mg/dL (1.8-2.4); MCH 23.2 pg (25.7-33.7); MCHC 31.3 g/dl (32.0-36.0); MEAN CELL VOLUME 74.2 fl (80-96); MEAN PLT VOLUME 7.7 fl (7.5-11.1); MONO % 11.2 % (3.8-10.2); NEUT % 62.8 % (42.8-82.8); PHOSPHOROUS 1.4 mg/dL (2.5-4.9); PLATELET COUNT 281 K/MM3 (134-434); RBC 3.32 M/mm3 (3.60-5.2); RDW 24.5 % (11.6-15.6); SODIUM 144 mmol/L (136-145); WHITE BLOOD COUNT 6.8 K/mm3 (4.0-10.0)
[2018-09-06 12:14] LABS: POTASSIUM 1.8 mmol/L (3.5-5.1)
[2018-09-06 12:28] LABS: ALBUMIN 2.2 g/dl (3.4-5.0); ALK PHOS 88 U/L (45-117); BILIRUBIN,DIRECT 0.8 mg/dL (0.0-0.2); BILIRUBIN,TOTAL 1.6 mg/dL (0.2-1); SGOT/AST 28 U/L (15-37); SGPT/ALT < 6 U/L (13-61); TOT PROT 6.4 g/dl (6.4-8.2)
[2018-09-06] MEDS ORDERED: MAGNESIUM SULF 50% (8.12 MEQ/2 ML-1 GM VIAL) IVPB ONE (12:28)
[2018-09-06] MEDS ORDERED: SODIUM CHLORIDE IVPB ONE (12:30)
[2018-09-06] MEDS ORDERED: POTASSIUM PHOSPHATE IVPB ONE (12:30)
[2018-09-06] MEDS ORDERED: KCL 10 MEQ IVPB 10 MEQ/100 ML INFUS.BAG IVPB SCH ×3 (12:30→23:45)
[2018-09-06 12:31] LABS: INR 1.81 (0.83-1.09); PROTHROMBIN TIME (PATIENT) 21.5 SEC (9.7-13.0)
[2018-09-06] MEDS ORDERED: POTASSIUM CHLORIDE ORAL LIQUID 20 MEQ/15 ML PO ONE ×3 (12:42→23:45)
[2018-09-06] MEDS ORDERED: MAGNESIUM SULF 50% (8.12 MEQ/2 ML-1 GM VIAL) ONE (12:46)
[2018-09-06 12:54] LABS: ACTIVATED PTT 37.7 SECONDS (25.2-36.5)
[2018-09-06 13:18] LABS: ARTERIAL BLD GAS O2 SATURATION 96.1 % (90-98.9); ARTERIAL BLOOD GAS BASE EXCESS 18.8 meq/l (-2-2); ARTERIAL BLOOD GAS PCO2 53.9 mmHg (35-45); ARTERIAL BLOOD GAS PO2 80.5 mmHg (68-100); ARTERIAL BLOOD GAS pH 7.52 (7.35-7.45)
[2018-09-06] MEDS ORDERED: POTASSIUM CHLORIDE ORAL LIQUID 20 MEQ/15 ML ONE (13:18)
[2018-09-06 13:19] LABS: ALLENS TEST POSITIVE
[2018-09-06] MEDS: BUDESONIDE/FORMETEROL FUMARATE 80/4.5 mcg INHALER IH SCH (13:30)
--- NOTE | 2018-09-06 13:35 | CONSULT ---
Consult Consult Specialty:: Nephrology Reason for Consultation:: hypokalemia - History of Present Illness Chief Complaint: sent in for lethargy and hematuria History of Present Illness: Pt is an 81 year old female with pmhx of SANAM, hemorrhagic cystitis, bilateral nephrostomy tubes, diastolic CHF, pulm HTN, and sarcoid who was sent to the ER for lethargy and hematuria. She was found to have elevated INR. She was also found to be hypokalemic. I was called to evaluate her today for hypokalemia. She is more awake now. She denies shortness of breath. 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) Cardio/Vascular: Yes: AFIB, CHF, HTN, Hyperlipdemia, Pulmonary Hypertension, Other (Sarcoidosis) Pulmonary: Yes: Asthma, COPD Renal/: Yes: Hematuria Psych: Yes: Depression - Past Surgical History Past Surgical History: Yes: Cholecystectomy, Hysterectomy - Alcohol/Substance Use Hx Alcohol Use: No History of Substance Use: reports: None - Smoking History Smoking history: Never smoked Have you smoked in the past 12 months: No Aproximately how many cigarettes per day: 0 - Social History Usual Living Arrangement: Other (most recently has been at [place], and since developing pain has been ambulating with RW) History of Recent Travel: No Home Medications - Allergies Allergies/Adverse Reactions: Allergies Allergy/AdvReac Type Severity Reaction Status Date / Time No Known Allergies Allergy Verified 06/19/18 21:10 - Home Medications Home Medications: Ambulatory Orders Atorvastatin Ca [Lipitor] 20 mg PO HS 04/16/18 Escitalopram Oxalate [Lexapro -] 10 mg PO DAILY 04/16/18 Folic Acid 1 mg PO DAILY 04/16/18 Ipratropium [place] [Atrovent Hfa] 1 neb NEB Q4H PRN 04/17/18 Albuterol Sulfate [Proventil HFA Inhaler -] 1 - 2 inh PO QID PRN 06/20/18 Budesonide/Formeterol Fumarate [SYMBICORT 160/4.5mcg -] 1 inh PO BID 06/20/18 Furosemide [Lasix] 40 mg PO DAILY 06/20/18 Lorazepam 0.5 mg PO Q8H PRN 06/20/18 Omeprazole 20 mg PO DAILY 06/20/18 Atenolol [Tenormin] 25 mg PO BID #30 tablet 06/23/18 Polyethylene Glycol 3350 [Miralax 119 gm Btl -] 17 gm PO BID bottle 06/23/18 Sennosides [Senna -] 2 tab PO HS tablet 06/23/18 Cefazolin Sodium in 0.9 % NaCl [Cefazolin 2 G/100 ml-0.9% NaCl] 2 gm IV Q8H #45 plast..bag 08/25/18 Prednisone See Taper PO DAILY #30 tablet 08/25/18 Family Disease History - Family Disease History Family Disease History: Heart Disease: Father, Mother, Other: Sister (Colon cancer) Review of Systems - Review of Systems Constitutional: reports: Malaise Eyes: reports: No Symptoms HENT: reports: No Symptoms Neck: reports: No Symptoms Cardiovascular: reports: No Symptoms Respiratory: reports: No Symptoms Gastrointestinal: reports: No Symptoms Genitourinary: reports: Hematuria Musculoskeletal: reports: Muscle Weakness Neurological: reports: Other (lethargy) Psychiatric: reports: No Symptoms Physical Exam Vital Signs: Vital Signs Temperature 98.0 F 09/05/18 19:35 Pulse Rate 55 L 09/05/18 19:35 Respiratory Rate 17 09/05/18 19:35 Blood Pressure 127/58 L 09/05/18 19:35 O2 Sat by Pulse Oximetry (%) 100 09/06/18 07:30 Constitutional: Yes: Calm Eyes: Yes: Conjunctiva Clear Cardiovascular: Yes: S1, S2 Respiratory: Yes: On Nasal O2 Gastrointestinal: Yes: Soft Renal/: Yes: Other (bilateral nephrostomy tubes) Musculoskeletal: Yes: Muscle Weakness Edema: No Neurological: Yes: Oriented Psychiatric: Yes: Oriented Labs: CBC, BMP 09/06/18 11:35 09/06/18 11:35 Laboratory Tests 09/05/18 09/05/18 09/05/18 18:20 20:30 20:30 INR 11.41 H* ABG pH ABG pCO2 at Pt Temp ABG HCO3 Potassium 2.0 L* Random Glucose 110 H Calcium 7.7 L Urine Protein Negative Urine Blood 3+ H 09/06/18 09/06/18 09/06/18 11:34 11:35 12:40 INR 1.81 H ABG pH 7.52 H ABG pCO2 at Pt Temp 53.9 H ABG HCO3 44.0 H* Potassium 1.8 L* Random Glucose Calcium 7.8 L Urine Protein Urine Blood Imaging - Results Chest X-ray: Report Reviewed Problem List - Problems (1) Elevated INR Code(s): R79.1 - ABNORMAL COAGULATION PROFILE (2) Hypokalemia Code(s): E87.6 - HYPOKALEMIA Assessment/Plan Current Medications Generic Name Dose Route Start Last Admin Trade Name Freq PRN Reason Stop Dose Admin Atenolol 25 mg 09/06/18 10:00 09/06/18 12:04 Tenormin - PO Not Given BID LISA Atorvastatin Calcium 20 mg 09/06/18 22:00 Lipitor - PO HS [facility] Budesonide/Formoterol Fumarate 2 puff 09/06/18 10:00 09/06/18 13:30 Symbicort 80/4.5mcg - IH Not Given BID LISA Escitalopram Oxalate 10 mg 09/06/18 10:00 09/06/18 12:03 Lexapro - PO Not Given DAILY LISA Folic Acid 1 mg 09/06/18 10:00 09/06/18 12:03 Folic Acid - PO Not Given DAILY LISA Cefazolin Sodium/Dextrose 2 gm in 50 mls @ 100 mls/hr 09/06/18 02:00 11:30 Ancef 2 Gm Premixed Ivpb - IVPB 100 mls/hr Q8H-IV LISA Administration Potassium Phosphate 17 mm/ 255.6667 mls @ 62.5 mls/hr 09/06/18 12:30 Sodium Chloride IVPB 09/06/18 16:35 ONCE ONE Potassium Chloride 10 meq in 100 mls @ 100 mls/hr 09/06/18 13:15 09/06/18 13: 15 Potassium Chloride 10 Meq Premix Ivpb - IVPB 09/06/18 14:14 100 mls/hr Q60M LISA Administration Pantoprazole Sodium 20 mg 09/06/18 10:00 09/06/18 12:04 Protonix - PO Not Given DAILY LISA Potassium Chloride 20 meq 09/06/18 13:30 Potassium Chloride 20 Meq Premix Ivpb - IVPB 09/06/18 14:31 Q60M LISA Prednisone 5 mg 09/06/18 10:00 09/06/18 12:02 Deltasone - PO Not Given DAILY LISA Impression 1. hypokalemia 2. elevated INR 3. pulm HTN 4. CHF 5. hematuria 6. sarcoid 7. COPD 8. a-fib 9. hx of HTN 10. hyperlipidemia Plan - replace potassium - replace mag - repeat potassium levels - give IV and PO - keep pt on a monitor - repeat ecg once potassium normalizes - discussed with medical team - urine is yellow and clear from both nephrostoy tubes - hold lasix Dr Del Angel
--- NOTE | 2018-09-06 15:04 | PN ---
Teaching Attending Note Name of Resident: Marco A Colon ATTENDING PHYSICIAN STATEMENT I saw and evaluated the patient. I reviewed the resident's note and discussed the case with the resident. I agree with the resident's findings and plan as documented with exceptions below. SUBJECTIVE: Patient seen and examined. oriented to self, denies any abdominal or back pain, nausea, vomiting, dizziness. Responds to most questions appropriately but seems disoriented. OBJECTIVE: Vital Signs Period Temp Pulse Resp BP Sys/Garza Pulse Ox Last 24 Hr 98.0 F-98.2 F 55-96 17-22 121-128/50-69 95-100 Intake & Output 09/03/18 09/04/18 09/05/18 09/06/18 23:59 23:59 23:59 23:59 Output Total 900 325 Balance -900 -325 Weight 150 lb General: lying in bed in no acute distress Chest: poor effort, positive air entry, no rales or wheezing appreciated Abdomen:soft, NT, nD, positive bowel sounds, no CVA tenderness, bilateral nephrostomy tubes present with clear drainage Extremities: no edema Neuro: AA, oriented to self, moves all extremities freely facial symmetry, further exam limited Home Medications Medication Instructions Recorded RX: Atorvastatin Ca [Lipitor] 20 mg PO HS 04/16/18 RX: Escitalopram Oxalate [Lexapro 10 mg PO DAILY 04/16/18 -] RX: Folic Acid 1 mg PO DAILY 04/16/18 RX: Ipratropium [place] [Atrovent 1 neb NEB Q4H PRN 04/17/18 Hfa] RX: Albuterol Sulfate [Proventil 1 - 2 inh PO QID PRN 06/20/18 HFA Inhaler -] RX: Budesonide/Formeterol Fumarate 1 inh PO BID 06/20/18 [SYMBICORT 160/4.5mcg -] RX: Furosemide [Lasix] 40 mg PO DAILY 06/20/18 RX: Lorazepam 0.5 mg PO Q8H PRN 06/20/18 RX: Omeprazole 20 mg PO DAILY 06/20/18 RX: Atenolol [Tenormin] 25 mg PO BID #30 tablet 06/23/18 RX: Polyethylene Glycol 3350 17 gm PO BID bottle 06/23/18 [Miralax 119 gm Btl -] RX: Sennosides [Senna -] 2 tab PO HS tablet 06/23/18 Cefazolin Sodium in 0.9 % NaCl 2 gm IV Q8H #45 plast..bag 08/25/18 [Cefazolin 2 G/100 ml-0.9% NaCl] RX: Prednisone See Taper PO DAILY #30 tablet 08/25/18 Active Medications Atenolol (Tenormin -) 25 mg PO BID [facility] Last Admin: 09/06/18 12:04 Dose: Not Given Atorvastatin Calcium (Lipitor -) 20 mg PO [facility] Budesonide/Formoterol Fumarate (Symbicort 80/4.5mcg -) 2 puff IH BID [facility] Last Admin: 09/06/18 13:30 Dose: Not Given Escitalopram Oxalate (Lexapro -) 10 mg PO DAILY [facility] Last Admin: 09/06/18 12:03 Dose: Not Given Folic Acid (Folic Acid -) 1 mg PO DAILY [facility] Last Admin: 09/06/18 12:03 Dose: Not Given Cefazolin Sodium/Dextrose (Ancef 2 Gm Premixed Ivpb -) 2 gm in 50 mls @ 100 mls /hr IVPB Q8H-IV [facility] Last Admin: 09/06/18 11:30 Dose: 100 mls/hr Potassium Phosphate 17 mm/ (Sodium Chloride) 255.6667 mls @ 62.5 mls/hr IVPB ONCE ONE Stop: 09/06/18 16:35 Last Admin: 09/06/18 13:47 Dose: 62.5 mls/hr Pantoprazole Sodium (Protonix -) 20 mg PO DAILY [facility] Last Admin: 09/06/18 12:04 Dose: Not Given Prednisone (Deltasone -) 5 mg PO DAILY [facility] Last Admin: 09/06/18 12:02 Dose: Not Given Laboratory Results - last 24 hr 09/05/18 09/05/18 09/05/18 17:59 17:59 17:59 WBC 6.1 RBC 3.80 Hgb 9.1 L Hct 27.9 L MCV 73.3 L MCH 24.1 L MCHC 32.8 RDW 24.4 H Plt Count 381 D MPV 8.0 Absolute Neuts (auto) 4.4 Total Counted 100 Neutrophils % 72.4 D Neutrophils % (Manual) 72.0 Band Neutrophils % 2.0 Lymphocytes % 21.8 D Lymphocytes % (Manual) 19.0 D Monocytes % 5.7 Monocytes % (Manual) 6 Eosinophils % 0.0 Basophils % 0.1 Myelocytes % (Man) 1 D Nucleated RBC % 1 H Differential Comment Man diff performed Platelet Estimate Adequate Platelet Comment Polychromasia 1+ Poikilocytosis 2+ Anisocytosis 2+ Microcytosis 1+ Macrocytosis 1+ Target Cells 1+ Ovalocytes 1+ Fragmented RBCs Few PT with INR INR PTT (Actin FS) 91.6 H Puncture Site ABG pH ABG pCO2 at Pt Temp ABG pO2 at Pt Temp ABG HCO3 ABG O2 Sat (Measured) ABG O2 Content ABG Base Excess Junior Test Oxygen Flow Rate Sodium Cancelled Potassium Cancelled Chloride Cancelled Carbon Dioxide Cancelled Anion Gap Cancelled BUN Cancelled Creatinine Cancelled Creat Clearance w eGFR Cancelled Random Glucose Cancelled Hemoglobin A1c % Calcium Cancelled Phosphorus Magnesium Total Bilirubin Cancelled Direct Bilirubin AST Cancelled ALT Cancelled Alkaline Phosphatase Cancelled Total Protein Cancelled Albumin Cancelled Urine Color Urine Appearance Urine pH Ur Specific [place] Urine Protein Urine Glucose (UA) Urine Ketones Urine Blood Urine Nitrite Urine Bilirubin Urine Urobilinogen Ur Leukocyte Esterase Urine WBC (Auto) Urine RBC (Auto) Urine Bacteria Urine Yeast Stool Occult Blood Blood Type Antibody Screen 09/05/18 09/05/18 09/05/18 17:59 18:20 20:30 WBC RBC Hgb Hct MCV MCH MCHC RDW Plt Count MPV Absolute Neuts (auto) Total Counted Neutrophils % Neutrophils % (Manual) Band Neutrophils % Lymphocytes % Lymphocytes % (Manual) Monocytes % Monocytes % (Manual) Eosinophils % Basophils % Myelocytes % (Man) Nucleated RBC % Differential Comment Platelet Estimate Platelet Comment Polychromasia Poikilocytosis Anisocytosis Microcytosis Macrocytosis Target Cells Ovalocytes Fragmented RBCs PT with INR 131.40 H INR 10.87 H* PTT (Actin FS) Puncture Site ABG pH ABG pCO2 at Pt Temp ABG pO2 at Pt Temp ABG HCO3 ABG O2 Sat (Measured) ABG O2 Content ABG Base Excess Junior Test Oxygen Flow Rate Sodium 143 Potassium 2.0 L* Chloride 93 L Carbon Dioxide 39 H Anion Gap 11 BUN 15 Creatinine 0.7 Creat Clearance w eGFR > 60 Random Glucose 110 H Hemoglobin A1c % Calcium 7.7 L Phosphorus Magnesium Total Bilirubin 1.2 H Direct Bilirubin 0.6 H AST 35 ALT < 6 L Alkaline Phosphatase 103 Total Protein 6.8 Albumin 2.0 L Urine Color Straw Urine Appearance Clear Urine pH 8.0 D Ur Specific [place] 1.005 L Urine Protein Negative Urine Glucose (UA) Negative Urine Ketones Negative Urine Blood 3+ H Urine Nitrite Negative Urine Bilirubin Negative Urine Urobilinogen Negative Ur Leukocyte Esterase 1+ H Urine WBC (Auto) 11 Urine RBC (Auto) 33 Urine Bacteria Rare Urine Yeast Rare Stool Occult Blood Blood Type Antibody Screen 09/05/18 09/05/18 09/06/18 20:30 21:25 02:30 WBC RBC Hgb Hct MCV MCH MCHC RDW Plt Count MPV Absolute Neuts (auto) Total Counted Neutrophils % Neutrophils % (Manual) Band Neutrophils % Lymphocytes % Lymphocytes % (Manual) Monocytes % Monocytes % (Manual) Eosinophils % Basophils % Myelocytes % (Man) Nucleated RBC % Differential Comment Platelet Estimate Platelet Comment Polychromasia Poikilocytosis Anisocytosis Microcytosis Macrocytosis Target Cells Ovalocytes Fragmented RBCs PT with INR 138.00 H INR 11.41 H* PTT (Actin FS) Puncture Site ABG pH ABG pCO2 at Pt Temp ABG pO2 at Pt Temp ABG HCO3 ABG O2 Sat (Measured) ABG O2 Content ABG Base Excess Junior Test Oxygen Flow Rate Sodium Potassium Chloride Carbon Dioxide Anion Gap BUN Creatinine Creat Clearance w eGFR Random Glucose Hemoglobin A1c % Calcium Phosphorus Magnesium Total Bilirubin Direct Bilirubin AST ALT Alkaline Phosphatase Total Protein Albumin Urine Color Urine Appearance Urine pH Ur Specific [place] Urine Protein Urine Glucose (UA) Urine Ketones Urine Blood Urine Nitrite Urine Bilirubin Urine Urobilinogen Ur Leukocyte Esterase Urine WBC (Auto) Urine RBC (Auto) Urine Bacteria Urine Yeast Stool Occult Blood Negative Blood Type B POSITIVE Antibody Screen Negative 09/06/18 09/06/18 09/06/18 06:00 11:34 11:35 WBC 6.8 RBC 3.32 L Hgb 7.7 L Hct 24.6 L MCV 74.2 L MCH 23.2 L MCHC 31.3 L RDW 24.5 H Plt Count 281 D MPV 7.7 Absolute Neuts (auto) 4.3 Total Counted Neutrophils % 62.8 Neutrophils % (Manual) Band Neutrophils % Lymphocytes % 25.4 Lymphocytes % (Manual) Monocytes % 11.2 H D Monocytes % (Manual) Eosinophils % 0.3 D Basophils % 0.3 Myelocytes % (Man) Nucleated RBC % 0 Differential Comment Platelet Estimate Platelet Comment Polychromasia Poikilocytosis Anisocytosis Microcytosis Macrocytosis Target Cells Ovalocytes Fragmented RBCs PT with INR 21.50 H INR 1.81 H PTT (Actin FS) 37.7 H Puncture Site ABG pH ABG pCO2 at Pt Temp ABG pO2 at Pt Temp ABG HCO3 ABG O2 Sat (Measured) ABG O2 Content ABG Base Excess Junior Test Oxygen Flow Rate Sodium Potassium Chloride Carbon Dioxide Anion Gap BUN Creatinine Creat Clearance w eGFR Random Glucose Hemoglobin A1c % 6.1 Calcium Phosphorus Magnesium Total Bilirubin Direct Bilirubin AST ALT Alkaline Phosphatase Total Protein Albumin Urine Color Urine Appearance Urine pH Ur Specific [place] Urine Protein Urine Glucose (UA) Urine Ketones Urine Blood Urine Nitrite Urine Bilirubin Urine Urobilinogen Ur Leukocyte Esterase Urine WBC (Auto) Urine RBC (Auto) Urine Bacteria Urine Yeast Stool Occult Blood Blood Type Antibody Screen 09/06/18 09/06/18 09/06/18 11:35 11:35 12:40 WBC RBC Hgb Hct MCV MCH MCHC RDW Plt Count MPV Absolute Neuts (auto) Total Counted Neutrophils % Neutrophils % (Manual) Band Neutrophils % Lymphocytes % Lymphocytes % (Manual) Monocytes % Monocytes % (Manual) Eosinophils % Basophils % Myelocytes % (Man) Nucleated RBC % Differential Comment Platelet Estimate Platelet Comment Polychromasia Poikilocytosis Anisocytosis Microcytosis Macrocytosis Target Cells Ovalocytes Fragmented RBCs PT with INR INR PTT (Actin FS) Puncture Site Left radial ABG pH 7.52 H ABG pCO2 at Pt Temp 53.9 H ABG pO2 at Pt Temp 80.5 D ABG HCO3 44.0 H* ABG O2 Sat (Measured) 96.1 ABG O2 Content 9.8 L* ABG Base Excess 18.8 H* Junior Test Positive Oxygen Flow Rate Yes Sodium 144 Potassium 1.8 L* Chloride 93 L Carbon Dioxide > 45 H Anion Gap 6 L BUN 16 Creatinine 0.6 Creat Clearance w eGFR > 60 Random Glucose 85 Hemoglobin A1c % Calcium 7.8 L Phosphorus 1.4 L Magnesium 1.7 L Total Bilirubin 1.6 H Direct Bilirubin 0.8 H AST 28 ALT < 6 L Alkaline Phosphatase 88 Total Protein 6.4 Albumin 2.2 L Urine Color Urine Appearance Urine pH Ur Specific [place] Urine Protein Urine Glucose (UA) Urine Ketones Urine Blood Urine Nitrite Urine Bilirubin Urine Urobilinogen Ur Leukocyte Esterase Urine WBC (Auto) Urine RBC (Auto) Urine Bacteria Urine Yeast Stool Occult Blood Blood Type Antibody Screen CXR and head CT results reviewed EKG 1 Afib, flatttened T waves generalized EKG 2 today, overall unchanged ASSESSMENT AND PLAN: 81 yof with PMHx of Chronic respiratory failure, 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 -Supratherapeutic INR, ?etiology -Severe hypokalemia, ?Lasix mediated with Flattened T waves -Hypomagnesemia -Hypophosphatemia -Metabolic alkalosis, suspect contraction alkalosis, ?lasix mediated -AMS, ?toxic metabolic encephalopathy from above -Acute on chronic anemia, ?Blood loss from coagulopathy, no gross evidence of bleed currently -Recent haemorrhagic cystitis s/p Cystoscopy 08/11(complicated by hypotension requiring ICU/pressors), b/l nephrostomy tube placement 08/16, -Complicated UTI on Cefazolin (via PICC line) -Chronic respiratory failure -Oxygen (3L)/steroid dependent COPD -CAD -Pulmonary HTN -Sarcoidosis Plan: s/p vitamin K and 2 units FFP. Cnnfirm with NH patient on no AC. Unclear etiology for coagulopathy so far. Hematology input. Check abdominal ultrasound. Aggressively replete K via PICC. Replete Mg/Phos. Renal input appreciated. Telemetry monitoring and close BMP monitoring. ICU consulted, case discussed with Dr. Espinosa. Continue cefazolin Hold lasix. Monitor h/h. Additional imaging including CT A/P if fails to drop. Continue home steroids. DVTPPX with SCDs Nursing updated. Total time spent in patient care, discussion with RN, nephrology, ICU, co- ordination of care and close follow up 45 min.
--- NOTE | 2018-09-06 15:35 | EKG ---
Test Reason : Blood Pressure : / mmHG Vent. Rate : 082 BPM Atrial Rate : 174 BPM P-R Int : 000 ms QRS Dur : 100 ms QT Int : 402 ms P-R-T Axes : 000 007 -65 degrees QTc Int : 469 ms ATRIAL FIBRILLATION ABNORMAL ECG Confirmed by CLAIRE SALMERON MD ([id number]) on 09/06/2018 3:34:58 PM Referred By: Confirmed By:CLAIRE SALMERON MD
--- NOTE | 2018-09-06 16:47 | PN ---
Progress Note (short form) - Note Progress Note: PULMONARY CONSULTATION DICTATED 09/06/18 IMP CHRONIC HYPOXEMIC/HYPERCAPNEIC RESPIRATORY FAILURE ADVANCED COPD O2 DEPENDENT SARCOID PULMONARY HYPERTENSION CHF ALTERED MENTAL STATUS SEVERE HYPOKALEMIA SUPRA-THERAPEUTIC INR S/P FFP AFIB S/P MSSA SEPSIS HEMATURIA HYPOKALEMIC/ HYPOCHLOREMIC METABOLIC ALKALOSIS PLAN REPLETE K O2 INHALED BRONCHODILATORS PREDNISONE F/U ABGS MONITOR LYTES ABX MONITOR INR DR ALBERT Problem List - Problems (1) Supratherapeutic INR Code(s): R79.1 - ABNORMAL COAGULATION PROFILE (2) Elevated INR Code(s): R79.1 - ABNORMAL COAGULATION PROFILE (3) Hypokalemia Code(s): E87.6 - HYPOKALEMIA (4) Acute and chronic respiratory failure with hypoxia Code(s): J96.21 - ACUTE AND CHRONIC RESPIRATORY FAILURE WITH HYPOXIA (5) Atrial fibrillation Code(s): I48.91 - UNSPECIFIED ATRIAL FIBRILLATION Qualifiers: Atrial fibrillation type: permanent Qualified Code(s): I48.2 - Chronic atrial fibrillation (6) Chronic respiratory failure with hypoxia Code(s): J96.11 - CHRONIC RESPIRATORY FAILURE WITH HYPOXIA (7) Pulmonary HTN Code(s): I27.20 - PULMONARY HYPERTENSION, UNSPECIFIED (8) Sarcoidosis Code(s): D86.9 - SARCOIDOSIS, UNSPECIFIED (9) Acute on chronic respiratory failure with hypoxia and hypercapnia Code(s): J96.21 - ACUTE AND CHRONIC RESPIRATORY FAILURE WITH HYPOXIA; J96.22 - ACUTE AND CHRONIC RESPIRATORY FAILURE WITH HYPERCAPNIA
--- NOTE | 2018-09-06 16:50 | CON.GU ---
Consult Consult Specialty:: Urology - History of Present Illness Chief Complaint: Hematuria, and hypokalemia - History Source History Provided By: Medical Record Limitations to Obtaining History: Clinical Condition - Past Medical History LOSS PREVENTION AND SAFETY MANAGER: Yes: Vertigo (intermittent) Cardio/Vascular: Yes: AFIB, CHF, HTN, Hyperlipdemia, Pulmonary Hypertension, Other (Sarcoidosis) Pulmonary: Yes: Asthma, COPD Renal/: Yes: Hematuria Psych: Yes: Depression - Past Surgical History Past Surgical History: Yes: Cholecystectomy, Hysterectomy - Alcohol/Substance Use Hx Alcohol Use: No History of Substance Use: reports: None - Smoking History Smoking history: Never smoked Have you smoked in the past 12 months: No Aproximately how many cigarettes per day: 0 - Social History Usual Living Arrangement: Other (most recently has been at OR/ [facility], and since developing pain has been ambulating with ) History of Recent Travel: No Home Medications - Allergies Allergies/Adverse Reactions: Allergies Allergy/AdvReac Type Severity Reaction Status Date / Time No Known Allergies Allergy Verified 06/19/18 21:10 - Home Medications Home Medications: Ambulatory Orders Atorvastatin Ca [Lipitor] 20 mg PO HS 04/16/18 Escitalopram Oxalate [Lexapro -] 10 mg PO DAILY 04/16/18 Folic Acid 1 mg PO DAILY 04/16/18 Ipratropium [place] [Atrovent Hfa] 1 neb NEB Q4H PRN 04/17/18 Albuterol Sulfate [Proventil HFA Inhaler -] 1 - 2 inh PO QID PRN 06/20/18 Budesonide/Formeterol Fumarate [SYMBICORT 160/4.5mcg -] 1 inh PO BID 06/20/18 Furosemide [Lasix] 40 mg PO DAILY 06/20/18 Lorazepam 0.5 mg PO Q8H PRN 06/20/18 Omeprazole 20 mg PO DAILY 06/20/18 Atenolol [Tenormin] 25 mg PO BID #30 tablet 06/23/18 Polyethylene Glycol 3350 [Miralax 119 gm Btl -] 17 gm PO BID bottle 06/23/18 Sennosides [Senna -] 2 tab PO HS tablet 06/23/18 Cefazolin Sodium in 0.9 % NaCl [Cefazolin 2 G/100 ml-0.9% NaCl] 2 gm IV Q8H #45 plast..bag 08/25/18 Prednisone See Taper PO DAILY #30 tablet 08/25/18 Family Disease History - Family Disease History Family Disease History: Heart Disease: Father, Mother, Other: Sister (Colon cancer) Physical Exam- Vital Signs: Vital Signs Temperature 98.2 F 09/06/18 14:24 Pulse Rate 96 H 09/06/18 14:24 Respiratory Rate 22 H 09/06/18 16:08 Blood Pressure 127/69 09/06/18 14:24 O2 Sat by Pulse Oximetry (%) 98 09/06/18 16:08 Labs: CBC, BMP 09/06/18 11:35 09/06/18 11:35 Assessment/Plan This 81 year old female was seen to day with history of hematuria and hypokaelemia. Pt has bilateral bephrostomies for obstructive uropathy. The hamaturia is most likely abnormal coagulopathy and low volume. Pt is semilethargic and not very communicative. No acute urological intervention at present. Will follow as necessary. Will watch her inr and urine output. Will get renal sono to r/o obstruction. Thank you
--- NOTE | 2018-09-06 17:25 | CONS ---
DATE OF CONSULTATION: 09/06/2018 PULMONARY CONSULTATION REFERRING PHYSICIAN: Emanuel Fitzgerald M.D. HISTORY OF PRESENT ILLNESS: The patient is an 81-year-old black female known to me from previous hospitalizations with past medical history of chronic hypoxemic, hypercapnic respiratory failure, O2 dependent on 2 L nasal cannula, sarcoidosis, severe pulmonary hypertension, hypertension, ASHD, diastolic congestive heart failure, hemorrhagic cystitis status post cysto, history of bilateral nephrostomy tube placement August 16, recently hospitalized at [facility] secondary to respiratory distress, respiratory failure, sepsis, and was transferred to [facility], he was transferred back to [facility] early on September 05 secondary to lethargy and hematuria noted in the left nephrostomy tube. In the same way, she was recently hospitalized to [facility] secondary to MSSA bacteremia, and apparently was scheduled for 15 more days of IV cephazolin from date of discharge. Patient is on Eliquis, which was discontinued secondary to bleeding. On this admission, the patient was noted to have a super therapeutic INR of 11.4. She was transfused 2 units of FFP. The INR was corrected. PAST MEDICAL HISTORY: Again includes chronic hypercapnic, hypoxemic respiratory failure, O2 dependent on 3 L, COPD, sarcoidosis, severe pulmonary hypertension, hypertension, ASHD, diastolic heart failure, hemorrhagic cystitis, and status post bilateral nephrostomy tubes. REVIEW OF SYSTEMS: Unable to obtain at this time. Patient is drowsy. CURRENT MEDICATIONS: Include Ancef, Lexapro, Tenormin, Lipitor, Protonix, folic acid. PHYSICAL EXAMINATION: GENERAL: The patient is an elderly black female, well-developed, well-nourished, drowsy, in no acute respiratory distress. She is currently afebrile. VITAL SIGNS: Blood pressure is 127/69, respiratory rate is 22, O2 saturation is 98% on 2 L. HEENT: Normocephalic, atraumatic. NECK: Supple. HEART: Regular S1, S2. CHEST: Bilateral crackles throughout. ABDOMEN: Soft, bowel sounds present. EXTREMITIES: No cyanosis, edema. LABORATORY: INR is 1.81, initially was 11.41. WBC is 6.8, hemoglobin 7.7, hematocrit 24.6, platelet count 281,000. Blood gases: pH 7.52, pCO2 of 53, pO2 of 80, bicarbonate of 44, saturation of 96, unknown quantity of oxygen. Chemistries: BUN 16, creatinine 0.6, phosphorus 1.4. Chest x-ray: cardiomegaly, increased interstitial markings bilaterally, small bilateral pleural effusions. IMPRESSION: 1. Acute on chronic hypercapnic, hypoxemic respiratory failure. 2. Advanced chronic obstructive pulmonary disease, oxygen dependent. 3. Severe pulmonary hypertension. 4. Altered mental status. Currently improving. Possibly metabolic. 5. Hematuria. 6. History of hypertension. 7. Super therapeutic INR status post fresh, frozen plasma. 8. Atrial fibrillation. PLAN: O2, inhaled bronchodilators, replete electrolytes, obtain cultures. Will follow closely with you. DIOR ALBERT M.D. BRET/[id number]
--- NOTE | 2018-09-06 18:15 | PN ---
Physical Exam: SUBJECTIVE: Patient seen and examined this AM. Lethargic, poorly responsive. Brought in from [place] due to hematuria/lethargy. OBJECTIVE: Vital Signs Period Temp Pulse Resp BP Sys/Garza Pulse Ox Last 24 Hr 98.0 F-98.2 F 55-96 17-22 127-128/58-69 98-100 GENERAL: Lethargic, responsive to verbal stimuli HEAD: NC/AT EYES: No Scleral icterus no injected conjunctiva, ENT: MMM LUNGS: Poor inspiratory effort. HEART: Irregular tachycardic ABDOMEN: NDNT No HSM B/L percutaneous nephrostomy tubes in place EXTREMITIES: No Pedal Edema appreciated NEUROLOGICAL: No gross neurological abnormalities appreciated SKIN: No rashes or lesions appreciated Laboratory Results - last 24 hr 09/05/18 09/05/18 09/05/18 17:59 17:59 17:59 WBC 6.1 RBC 3.80 Hgb 9.1 L Hct 27.9 L MCV 73.3 L MCH 24.1 L MCHC 32.8 RDW 24.4 H Plt Count 381 D MPV 8.0 Absolute Neuts (auto) 4.4 Total Counted 100 Neutrophils % 72.4 D Neutrophils % (Manual) 72.0 Band Neutrophils % 2.0 Lymphocytes % 21.8 D Lymphocytes % (Manual) 19.0 D Monocytes % 5.7 Monocytes % (Manual) 6 Eosinophils % 0.0 Basophils % 0.1 Myelocytes % (Man) 1 D Nucleated RBC % 1 H Differential Comment Man diff performed Platelet Estimate Adequate Platelet Comment Polychromasia 1+ Poikilocytosis 2+ Anisocytosis 2+ Microcytosis 1+ Macrocytosis 1+ Target Cells 1+ Ovalocytes 1+ Fragmented RBCs Few PT with INR INR PTT (Actin FS) 91.6 H Puncture Site ABG pH ABG pCO2 at Pt Temp ABG pO2 at Pt Temp ABG HCO3 ABG O2 Sat (Measured) ABG O2 Content ABG Base Excess Junior Test Oxygen Flow Rate Sodium Cancelled Potassium Cancelled Chloride Cancelled Carbon Dioxide Cancelled Anion Gap Cancelled BUN Cancelled Creatinine Cancelled Creat Clearance w eGFR Cancelled Random Glucose Cancelled Hemoglobin A1c % Calcium Cancelled Phosphorus Magnesium Total Bilirubin Cancelled Direct Bilirubin AST Cancelled ALT Cancelled Alkaline Phosphatase Cancelled Total Protein Cancelled Albumin Cancelled Urine Color Urine Appearance Urine pH Ur Specific [place] Urine Protein Urine Glucose (UA) Urine Ketones Urine Blood Urine Nitrite Urine Bilirubin Urine Urobilinogen Ur Leukocyte Esterase Urine WBC (Auto) Urine RBC (Auto) Urine Bacteria Urine Yeast Stool Occult Blood Blood Type Antibody Screen 09/05/18 09/05/18 09/05/18 17:59 18:20 20:30 WBC RBC Hgb Hct MCV MCH MCHC RDW Plt Count MPV Absolute Neuts (auto) Total Counted Neutrophils % Neutrophils % (Manual) Band Neutrophils % Lymphocytes % Lymphocytes % (Manual) Monocytes % Monocytes % (Manual) Eosinophils % Basophils % Myelocytes % (Man) Nucleated RBC % Differential Comment Platelet Estimate Platelet Comment Polychromasia Poikilocytosis Anisocytosis Microcytosis Macrocytosis Target Cells Ovalocytes Fragmented RBCs PT with INR 131.40 H INR 10.87 H* PTT (Actin FS) Puncture Site ABG pH ABG pCO2 at Pt Temp ABG pO2 at Pt Temp ABG HCO3 ABG O2 Sat (Measured) ABG O2 Content ABG Base Excess Junior Test Oxygen Flow Rate Sodium 143 Potassium 2.0 L* Chloride 93 L Carbon Dioxide 39 H Anion Gap 11 BUN 15 Creatinine 0.7 Creat Clearance w eGFR > 60 Random Glucose 110 H Hemoglobin A1c % Calcium 7.7 L Phosphorus Magnesium Total Bilirubin 1.2 H Direct Bilirubin 0.6 H AST 35 ALT < 6 L Alkaline Phosphatase 103 Total Protein 6.8 Albumin 2.0 L Urine Color Straw Urine Appearance Clear Urine pH 8.0 D Ur Specific [place] 1.005 L Urine Protein Negative Urine Glucose (UA) Negative Urine Ketones Negative Urine Blood 3+ H Urine Nitrite Negative Urine Bilirubin Negative Urine Urobilinogen Negative Ur Leukocyte Esterase 1+ H Urine WBC (Auto) 11 Urine RBC (Auto) 33 Urine Bacteria Rare Urine Yeast Rare Stool Occult Blood Blood Type Antibody Screen 09/05/18 09/05/18 09/06/18 20:30 21:25 02:30 WBC RBC Hgb Hct MCV MCH MCHC RDW Plt Count MPV Absolute Neuts (auto) Total Counted Neutrophils % Neutrophils % (Manual) Band Neutrophils % Lymphocytes % Lymphocytes % (Manual) Monocytes % Monocytes % (Manual) Eosinophils % Basophils % Myelocytes % (Man) Nucleated RBC % Differential Comment Platelet Estimate Platelet Comment Polychromasia Poikilocytosis Anisocytosis Microcytosis Macrocytosis Target Cells Ovalocytes Fragmented RBCs PT with INR 138.00 H INR 11.41 H* PTT (Actin FS) Puncture Site ABG pH ABG pCO2 at Pt Temp ABG pO2 at Pt Temp ABG HCO3 ABG O2 Sat (Measured) ABG O2 Content ABG Base Excess Junior Test Oxygen Flow Rate Sodium Potassium Chloride Carbon Dioxide Anion Gap BUN Creatinine Creat Clearance w eGFR Random Glucose Hemoglobin A1c % Calcium Phosphorus Magnesium Total Bilirubin Direct Bilirubin AST ALT Alkaline Phosphatase Total Protein Albumin Urine Color Urine Appearance Urine pH Ur Specific [place] Urine Protein Urine Glucose (UA) Urine Ketones Urine Blood Urine Nitrite Urine Bilirubin Urine Urobilinogen Ur Leukocyte Esterase Urine WBC (Auto) Urine RBC (Auto) Urine Bacteria Urine Yeast Stool Occult Blood Negative Blood Type B POSITIVE Antibody Screen Negative 09/06/18 09/06/18 09/06/18 06:00 11:34 11:35 WBC 6.8 RBC 3.32 L Hgb 7.7 L Hct 24.6 L MCV 74.2 L MCH 23.2 L MCHC 31.3 L RDW 24.5 H Plt Count 281 D MPV 7.7 Absolute Neuts (auto) 4.3 Total Counted Neutrophils % 62.8 Neutrophils % (Manual) Band Neutrophils % Lymphocytes % 25.4 Lymphocytes % (Manual) Monocytes % 11.2 H D Monocytes % (Manual) Eosinophils % 0.3 D Basophils % 0.3 Myelocytes % (Man) Nucleated RBC % 0 Differential Comment Platelet Estimate Platelet Comment Polychromasia Poikilocytosis Anisocytosis Microcytosis Macrocytosis Target Cells Ovalocytes Fragmented RBCs PT with INR 21.50 H INR 1.81 H PTT (Actin FS) 37.7 H Puncture Site ABG pH ABG pCO2 at Pt Temp ABG pO2 at Pt Temp ABG HCO3 ABG O2 Sat (Measured) ABG O2 Content ABG Base Excess Junior Test Oxygen Flow Rate Sodium Potassium Chloride Carbon Dioxide Anion Gap BUN Creatinine Creat Clearance w eGFR Random Glucose Hemoglobin A1c % 6.1 Calcium Phosphorus Magnesium Total Bilirubin Direct Bilirubin AST ALT Alkaline Phosphatase Total Protein Albumin Urine Color Urine Appearance Urine pH Ur Specific [place] Urine Protein Urine Glucose (UA) Urine Ketones Urine Blood Urine Nitrite Urine Bilirubin Urine Urobilinogen Ur Leukocyte Esterase Urine WBC (Auto) Urine RBC (Auto) Urine Bacteria Urine Yeast Stool Occult Blood Blood Type Antibody Screen 09/06/18 09/06/18 09/06/18 11:35 11:35 12:40 WBC RBC Hgb Hct MCV MCH MCHC RDW Plt Count MPV Absolute Neuts (auto) Total Counted Neutrophils % Neutrophils % (Manual) Band Neutrophils % Lymphocytes % Lymphocytes % (Manual) Monocytes % Monocytes % (Manual) Eosinophils % Basophils % Myelocytes % (Man) Nucleated RBC % Differential Comment Platelet Estimate Platelet Comment Polychromasia Poikilocytosis Anisocytosis Microcytosis Macrocytosis Target Cells Ovalocytes Fragmented RBCs PT with INR INR PTT (Actin FS) Puncture Site Left radial ABG pH 7.52 H ABG pCO2 at Pt Temp 53.9 H ABG pO2 at Pt Temp 80.5 D ABG HCO3 44.0 H* ABG O2 Sat (Measured) 96.1 ABG O2 Content 9.8 L* ABG Base Excess 18.8 H* Junior Test Positive Oxygen Flow Rate Yes Sodium 144 Potassium 1.8 L* Chloride 93 L Carbon Dioxide > 45 H Anion Gap 6 L BUN 16 Creatinine 0.6 Creat Clearance w eGFR > 60 Random Glucose 85 Hemoglobin A1c % Calcium 7.8 L Phosphorus 1.4 L Magnesium 1.7 L Total Bilirubin 1.6 H Direct Bilirubin 0.8 H AST 28 ALT < 6 L Alkaline Phosphatase 88 Total Protein 6.4 Albumin 2.2 L Urine Color Urine Appearance Urine pH Ur Specific [place] Urine Protein Urine Glucose (UA) Urine Ketones Urine Blood Urine Nitrite Urine Bilirubin Urine Urobilinogen Ur Leukocyte Esterase Urine WBC (Auto) Urine RBC (Auto) Urine Bacteria Urine Yeast Stool Occult Blood Blood Type Antibody Screen Active Medications Generic Name Dose Route Start Last Admin Trade Name Freq PRN Reason Stop Dose Admin Atenolol 25 mg 09/06/18 10:00 09/06/18 12:04 Tenormin - PO Not Given BID [facility] Atorvastatin Calcium 20 mg 09/06/18 22:00 Lipitor - PO HS [facility] Budesonide/Formoterol Fumarate 2 puff 09/06/18 10:00 09/06/18 13:30 Symbicort 80/4.5mcg - IH Not Given BID [facility] Escitalopram Oxalate 10 mg 09/06/18 10:00 09/06/18 12:03 Lexapro - PO Not Given DAILY LISA Folic Acid 1 mg 09/06/18 10:00 09/06/18 12:03 Folic Acid - PO Not Given DAILY [facility] Cefazolin Sodium/Dextrose 2 gm in 50 mls @ 100 mls/hr 09/06/18 02:00 11:30 Ancef 2 Gm Premixed Ivpb - IVPB 100 mls/hr Q8H-IV LISA Administration Pantoprazole Sodium 20 mg 09/06/18 10:00 09/06/18 12:04 Protonix - PO Not Given DAILY LISA Prednisone 5 mg 09/06/18 10:00 09/06/18 12:02 Deltasone - PO Not Given DAILY [facility] ASSESSMENT/PLAN: Pt is an 81 year old female with pmhx of SANAM, hemorrhagic cystitis, bilateral nephrostomy tubes, diastolic CHF, pulm HTN, and sarcoid who was sent to the ER for lethargy and hematuria # Hematuria -Supratherapeutic INR of 11.8 on admission. Unclear etiology. -Left Nephrostomy hematuria now resolved - Hematology on board -S/p FFP and Vit K--> INR now 1.8 - Urology On board--> Hematuria is most likely abnormal coagulopathy and low volume. No acute urological intervention at present. Abdominal ultrasound pending #Hypokalemia -Potassium 1.8 earlier today -Pt given multiple rounds of K-Khurram and PO KDUR -BMP in AM #MSSA Bacteremia previous Visit -Continue on I.V Cefazolin 2G Q8H -Urine Culture pending -Consider ID consult if Cultures Positive #COPD/SARCOIDOSIS -Continue home medications -Dr Corey Lam on board. FEN No Fluids Monitor K+ Reg Diet DVT ppx: No Ac in light of recent Bleed Dispo: Tele Visit type - Emergency Visit Emergency Visit: Yes ED Registration Date: 09/05/18 Care time: The patient presented to the Emergency Department on the above date and was hospitalized for further evaluation of their emergent condition. - New Patient This patient is new to me today: Yes Date on this admission: 09/06/18 - Critical Care Critical Care patient: No - Discharge Referral Referred to [facility] Med P.C.: No
[2018-09-06] MEDS: POTASSIUM CHLORIDE 20 MEQ PREMIX IVPB 100 ML IVPB SCH ×2 (18:34→19:30)
[2018-09-06 20:10] LABS: MAGNESIUM 2.1 mg/dL (1.8-2.4); PHOSPHOROUS 2.9 mg/dL (2.5-4.9)
[2018-09-06] MEDS: ATORVASTATIN CA 20 MG TABLET (FP) PO SCH (21:50)
[2018-09-06 23:27] LABS: ANION GAP 8 MMOL/L (8-16); BLOOD UREA NITROGEN 16 mg/dL (7-18); CALCIUM 7.6 mg/dL (8.5-10.1); CHLORIDE 94 mmol/L (98-107); CO2 41 mmol/L (21-32); CREATININE 0.8 mg/dL (0.55-1.3); GLUCOSE,RANDOM 144 mg/dL (74-106); SODIUM 143 mmol/L (136-145)
[2018-09-06 23:29] LABS: POTASSIUM 2.8 mmol/L (3.5-5.1)
[2018-09-06] MEDS ORDERED: POTASSIUM CHLORIDE TABS 20 MEQ TABLET.ER (FP) PO ONE (23:35)
[2018-09-06] MEDS: KCL 10 MEQ IVPB 10 MEQ/100 ML INFUS.BAG IVPB SCH (23:47)
[2018-09-07] MEDS: BUDESONIDE/FORMETEROL FUMARATE 80/4.5 mcg INHALER IH SCH ×3 (00:01→21:35)
[2018-09-07] MEDS: KCL 10 MEQ IVPB 10 MEQ/100 ML INFUS.BAG IVPB SCH ×2 (00:42→01:43)
[2018-09-07] MEDS: CEFAZOLIN 2 GM/D5W 2 GM/50 ML ML IVPB SCH ×3 (02:40→17:34)
[2018-09-07 07:52] LABS: HEMATOCRIT 26.2 % (32.4-45.2); HEMOGLOBIN 8.3 GM/dL (10.7-15.3); MCH 25.5 pg (25.7-33.7); MCHC 31.6 g/dl (32.0-36.0); MEAN CELL VOLUME 80.7 fl (80-96); MEAN PLT VOLUME 8.6 fl (7.5-11.1); PLATELET COUNT 298 K/MM3 (134-434); RBC 3.25 M/mm3 (3.60-5.2); RDW 24.8 % (11.6-15.6); WHITE BLOOD COUNT 6.2 K/mm3 (4.0-10.0)
[2018-09-07 07:59] LABS: ANION GAP 9 MMOL/L (8-16); BLOOD UREA NITROGEN 16 mg/dL (7-18); CALCIUM 7.5 mg/dL (8.5-10.1); CHLORIDE 95 mmol/L (98-107); CO2 39 mmol/L (21-32); CREATININE 0.7 mg/dL (0.55-1.3); GLUCOSE,RANDOM 101 mg/dL (74-106); PHOSPHOROUS 1.6 mg/dL (2.5-4.9); POTASSIUM 3.3 mmol/L (3.5-5.1); SODIUM 143 mmol/L (136-145)
[2018-09-07] MEDS ORDERED: POTASSIUM CHLORIDE ORAL LIQUID 20 MEQ/15 ML PO ONE (08:28)
[2018-09-07] MEDS ORDERED: POTASSIUM PHOSPHATE 20 MM in SODIUM CHLORIDE 250 ML IVPB ONE (08:28)
--- NOTE | 2018-09-07 09:00 | PN ---
Teaching Attending Note Name of Resident: Cookie Paris ATTENDING PHYSICIAN STATEMENT I saw and evaluated the patient. I reviewed the resident's note and discussed the case with the resident. I agree with the resident's findings and plan as documented. SUBJECTIVE: Patient seen and examined . Thin ill appearing female Discussed previously with DR. Coker Presented with supratherapeutic INR Etiology ?? History of hemorrhagic cystitis with bilateral nephrostomy tubes Etiology of hydronephrosis not appreciated on previous cysto Last Vital Signs Temp Pulse Resp BP Pulse Ox 98.6 F 79 20 148/62 96 09/07/18 02:00 09/07/18 02:00 09/07/18 08:08 09/07/18 02:00 09/07/18 08:08 HEENT: HEMALATHA, EOM Intact Oropharynx: No thrush, No mucositis Neck: Supple Nodes: Without adenopathy Breasts: Without masses Cor: RSR, No murmurs, No gallops diminished breath sounds Abd: Soft, Normal bowel sounds, No organomegaly Ext:LE edema Skin: No rashes, Integument intact CBC, BMP 09/07/18 05:30 09/07/18 05:45 Current Medications Generic Name Dose Route Start Last Admin Trade Name Freq PRN Reason Stop Dose Admin Atenolol 25 mg 09/06/18 10:00 09/06/18 21:50 Tenormin - PO 25 mg BID LISA Administration Atorvastatin Calcium 20 mg 09/06/18 22:00 09/06/18 21:50 Lipitor - PO 20 mg HS LISA Administration Budesonide/Formoterol Fumarate 2 puff 09/06/18 10:00 09/07/18 00:01 Symbicort 80/4.5mcg - IH 2 puff BID LISA Administration Escitalopram Oxalate 10 mg 09/06/18 10:00 09/06/18 12:03 Lexapro - PO Not Given DAILY LISA Folic Acid 1 mg 09/06/18 10:00 09/06/18 12:03 Folic Acid - PO Not Given DAILY [facility] Cefazolin Sodium/Dextrose 2 gm in 50 mls @ 100 mls/hr 09/06/18 02:00 02:40 Ancef 2 Gm Premixed Ivpb - IVPB 100 mls/hr Q8H-IV LISA Administration Potassium Phosphate 20 mm/ 256.6667 mls @ 62.5 mls/hr 09/07/18 08:28 Sodium Chloride IVPB 09/07/18 12:34 ONCE ONE Pantoprazole Sodium 20 mg 09/06/18 10:00 09/06/18 12:04 Protonix - PO Not Given DAILY LISA Prednisone 5 mg 09/06/18 10:00 09/06/18 12:02 Deltasone - PO Not Given DAILY LISA OBJECTIVE: Impression: Supratherapeutic INR- ?? occult liver disease , poor nutrition, antibiotics Anemia - ? History of hemorrhagic cystitis Bilateral hydronephrosis - nephrostomies - need to internalize Plan : Fe++ studies HbE Monitor INR ASSESSMENT AND PLAN:
[2018-09-07] MEDS: FOLIC ACID 1 MG TABLET (FP) PO SCH (09:48)
[2018-09-07] MEDS: ESCITALOPRAM OXALATE 10 MG TABLET (FP) PO SCH (09:48)
[2018-09-07] MEDS: ATENOLOL 25 MG TABLET (FP) PO SCH ×2 (09:48→21:35)
[2018-09-07] MEDS: predniSONE 5 MG TABLET (UD) PO SCH (09:48)
[2018-09-07] MEDS: PANTOPRAZOLE 20 MG TABLET (FP) PO SCH (09:48)
--- NOTE | 2018-09-07 09:48 | PN ---
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,no distress,-tachypnea - Current Medication List Current Medications: Active Medications Atenolol (Tenormin -) 25 mg PO BID [facility] Last Admin: 09/06/18 21:50 Dose: 25 mg Atorvastatin Calcium (Lipitor -) 20 mg PO HS [facility] Last Admin: 09/06/18 21:50 Dose: 20 mg Budesonide/Formoterol Fumarate (Symbicort 80/4.5mcg -) 2 puff IH BID [facility] Last Admin: 09/07/18 00:01 Dose: 2 puff Escitalopram Oxalate (Lexapro -) 10 mg PO DAILY [facility] Last Admin: 09/06/18 12:03 Dose: Not Given Folic Acid (Folic Acid -) 1 mg PO DAILY [facility] Last Admin: 09/06/18 12:03 Dose: Not Given Cefazolin Sodium/Dextrose (Ancef 2 Gm Premixed Ivpb -) 2 gm in 50 mls @ 100 mls /hr IVPB Q8H-IV [facility] Last Admin: 09/07/18 02:40 Dose: 100 mls/hr Potassium Phosphate 20 mm/ (Sodium Chloride) 256.6667 mls @ 62.5 mls/hr IVPB ONCE ONE Stop: 09/07/18 12:34 Pantoprazole Sodium (Protonix -) 20 mg PO DAILY [facility] Last Admin: 09/06/18 12:04 Dose: Not Given Prednisone (Deltasone -) 5 mg PO DAILY [facility] Last Admin: 09/06/18 12:02 Dose: Not Given - Objective Vital Signs: Vital Signs Temperature 98.6 F 09/07/18 02:00 Pulse Rate 79 09/07/18 02:00 Respiratory Rate 20 09/07/18 08:08 Blood Pressure 148/62 09/07/18 02:00 O2 Sat by Pulse Oximetry (%) 96 09/07/18 08:08 Constitutional: Yes: Well Nourished, Calm Eyes: Yes: WNL HENT: Yes: WNL Neck: Yes: WNL Cardiovascular: Yes: Pulse Irregular, S1, S2 Respiratory: Yes: Rales (bibasilar crackles) Gastrointestinal: Yes: Normal Bowel Sounds, Soft Extremities: Yes: WNL Edema: No Labs: CBC, BMP 09/07/18 05:30 09/07/18 05:45 INR, PTT INR 1.81 (0.83-1.09) H 09/06/18 11:34 Problem List - Problems (1) Supratherapeutic INR Code(s): R79.1 - ABNORMAL COAGULATION PROFILE (2) Elevated INR Code(s): R79.1 - ABNORMAL COAGULATION PROFILE (3) Hypokalemia Code(s): E87.6 - HYPOKALEMIA (4) Acute and chronic respiratory failure with hypoxia Code(s): J96.21 - ACUTE AND CHRONIC RESPIRATORY FAILURE WITH HYPOXIA (5) Atrial fibrillation Code(s): I48.91 - UNSPECIFIED ATRIAL FIBRILLATION Qualifiers: Atrial fibrillation type: permanent Qualified Code(s): I48.2 - Chronic atrial fibrillation (6) Chronic respiratory failure with hypoxia Code(s): J96.11 - CHRONIC RESPIRATORY FAILURE WITH HYPOXIA (7) Pulmonary HTN Code(s): I27.20 - PULMONARY HYPERTENSION, UNSPECIFIED (8) Sarcoidosis Code(s): D86.9 - SARCOIDOSIS, UNSPECIFIED (9) Acute on chronic respiratory failure with hypoxia and hypercapnia Code(s): J96.21 - ACUTE AND CHRONIC RESPIRATORY FAILURE WITH HYPOXIA; J96.22 - ACUTE AND CHRONIC RESPIRATORY FAILURE WITH HYPERCAPNIA Assessment/Plan IMP ACUTE ON CHRONIC HYPOXEMIC/HYPERCAPNEIC RESPIRATORY FAILURE ADVANCED COPD O2 DEPENDENT SARCOID PULMONARY HYPERTENSION CHF ALTERED MENTAL STATUS improving SEVERE HYPOKALEMIA SUPRA-THERAPEUTIC INR S/P FFP AFIB S/P MSSA SEPSIS HEMATURIA HYPOKALEMIC/ HYPOCHLOREMIC METABOLIC ALKALOSIS PLAN REPLETE K O2 INHALED BRONCHODILATORS PREDNISONE F/U ABGS MONITOR LYTES ABX MONITOR INR DR ALBERT Problem List - Problems (1) Supratherapeutic INR Code(s): R79.1 - ABNORMAL COAGULATION PROFILE (2) Elevated INR Code(s): R79.1 - ABNORMAL COAGULATION PROFILE (3) Hypokalemia Code(s): E87.6 - HYPOKALEMIA (4) Acute and chronic respiratory failure with hypoxia Code(s): J96.21 - ACUTE AND CHRONIC RESPIRATORY FAILURE WITH HYPOXIA (5) Atrial fibrillation Code(s): I48.91 - UNSPECIFIED ATRIAL FIBRILLATION Qualifiers: Atrial fibrillation type: permanent Qualified Code(s): I48.2 - Chronic atrial fibrillation (6) Chronic respiratory failure with hypoxia Code(s): J96.11 - CHRONIC RESPIRATORY FAILURE WITH HYPOXIA (7) Pulmonary HTN Code(s): I27.20 - PULMONARY HYPERTENSION, UNSPECIFIED (8) Sarcoidosis Code(s): D86.9 - SARCOIDOSIS, UNSPECIFIED (9) Acute on chronic respiratory failure with hypoxia and hypercapnia Code(s): J96.21 - ACUTE AND CHRONIC RESPIRATORY FAILURE WITH HYPOXIA; J96.22 - ACUTE AND CHRONIC RESPIRATORY FAILURE WITH HYPERCAPNIA
--- NOTE | 2018-09-07 11:22 | PN ---
Physical Exam: SUBJECTIVE: Patient seen and examined at bedside. No acute events overnight. Underwent Abdominal ultrasound this AM. OBJECTIVE: Vital Signs Period Temp Pulse Resp BP Sys/Garza Pulse Ox Last 24 Hr 97.6 F-98.6 F 79-96 18-22 112-148/62-69 96-98 GENERAL: More alert than yesterday. Still lethargic HEAD: NC/AT EYES: No Scleral icterus no injected conjunctiva, ENT: MMM LUNGS: Poor inspiratory effort. HEART: Irregular Rythm. ABDOMEN: NDNT No HSM B/L percutaneous nephrostomy tubes in place hematuria resolving urine oconnell EXTREMITIES: No Pedal Edema appreciated NEUROLOGICAL: No gross neurological abnormalities appreciated SKIN: No rashes or lesions appreciated Laboratory Results - last 24 hr 09/06/18 09/06/18 09/06/18 06:00 11:34 11:35 WBC 6.8 Corrected WBC (auto) RBC 3.32 L Hgb 7.7 L Hct 24.6 L MCV 74.2 L MCH 23.2 L MCHC 31.3 L RDW 24.5 H Plt Count 281 D MPV 7.7 Absolute Neuts (auto) 4.3 Neutrophils % 62.8 Lymphocytes % 25.4 Monocytes % 11.2 H D Eosinophils % 0.3 D Basophils % 0.3 Nucleated RBC % 0 Platelet Estimate Platelet Comment PT with INR 21.50 H INR 1.81 H PTT (Actin FS) 37.7 H Puncture Site ABG pH ABG pCO2 at Pt Temp ABG pO2 at Pt Temp ABG HCO3 ABG O2 Sat (Measured) ABG O2 Content ABG Base Excess Junior Test Oxygen Flow Rate Sodium Potassium Chloride Carbon Dioxide Anion Gap BUN Creatinine Creat Clearance w eGFR Random Glucose Hemoglobin A1c % 6.1 Calcium Phosphorus Magnesium Total Bilirubin Direct Bilirubin AST ALT Alkaline Phosphatase Total Protein Albumin 09/06/18 09/06/18 09/06/18 11:35 11:35 12:40 WBC Corrected WBC (auto) RBC Hgb Hct MCV MCH MCHC RDW Plt Count MPV Absolute Neuts (auto) Neutrophils % Lymphocytes % Monocytes % Eosinophils % Basophils % Nucleated RBC % Platelet Estimate Platelet Comment PT with INR INR PTT (Actin FS) Puncture Site Left radial ABG pH 7.52 H ABG pCO2 at Pt Temp 53.9 H ABG pO2 at Pt Temp 80.5 D ABG HCO3 44.0 H* ABG O2 Sat (Measured) 96.1 ABG O2 Content 9.8 L* ABG Base Excess 18.8 H* Junior Test Positive Oxygen Flow Rate Yes Sodium 144 Potassium 1.8 L* Chloride 93 L Carbon Dioxide > 45 H Anion Gap 6 L BUN 16 Creatinine 0.6 Creat Clearance w eGFR > 60 Random Glucose 85 Hemoglobin A1c % Calcium 7.8 L Phosphorus 1.4 L Magnesium 1.7 L Total Bilirubin 1.6 H Direct Bilirubin 0.8 H AST 28 ALT < 6 L Alkaline Phosphatase 88 Total Protein 6.4 Albumin 2.2 L 09/06/18 09/06/18 09/06/18 19:00 22:52 22:52 WBC Cancelled Corrected WBC (auto) Cancelled RBC Cancelled Hgb Cancelled Hct Cancelled MCV Cancelled MCH Cancelled MCHC Cancelled RDW Cancelled Plt Count Cancelled MPV Cancelled Absolute Neuts (auto) Cancelled Neutrophils % Cancelled Lymphocytes % Cancelled Monocytes % Cancelled Eosinophils % Cancelled Basophils % Cancelled Nucleated RBC % Cancelled Platelet Estimate Cancelled Platelet Comment Cancelled PT with INR INR PTT (Actin FS) Puncture Site ABG pH ABG pCO2 at Pt Temp ABG pO2 at Pt Temp ABG HCO3 ABG O2 Sat (Measured) ABG O2 Content ABG Base Excess Junior Test Oxygen Flow Rate Sodium 143 Potassium 2.8 L* Chloride 94 L Carbon Dioxide 41 H Anion Gap 8 BUN 16 Creatinine 0.8 Creat Clearance w eGFR > 60 Random Glucose 144 H Hemoglobin A1c % Calcium 7.6 L Phosphorus 2.9 Magnesium 2.1 Total Bilirubin Direct Bilirubin AST ALT Alkaline Phosphatase Total Protein Albumin 09/07/18 09/07/18 05:30 05:45 WBC 6.2 Corrected WBC (auto) RBC 3.25 L Hgb 8.3 L Hct 26.2 L MCV 80.7 D MCH 25.5 L MCHC 31.6 L RDW 24.8 H Plt Count 298 MPV 8.6 D Absolute Neuts (auto) Neutrophils % Lymphocytes % Monocytes % Eosinophils % Basophils % Nucleated RBC % Platelet Estimate Platelet Comment PT with INR INR PTT (Actin FS) Puncture Site ABG pH ABG pCO2 at Pt Temp ABG pO2 at Pt Temp ABG HCO3 ABG O2 Sat (Measured) ABG O2 Content ABG Base Excess Junior Test Oxygen Flow Rate Sodium 143 Potassium 3.3 L Chloride 95 L Carbon Dioxide 39 H Anion Gap 9 BUN 16 Creatinine 0.7 Creat Clearance w eGFR > 60 Random Glucose 101 Hemoglobin A1c % Calcium 7.5 L Phosphorus 1.6 L Magnesium 2.0 Total Bilirubin Direct Bilirubin AST ALT Alkaline Phosphatase Total Protein Albumin Active Medications Generic Name Dose Route Start Last Admin Trade Name Freq PRN Reason Stop Dose Admin Atenolol 25 mg 09/06/18 10:00 09/07/18 09:48 Tenormin - PO 25 mg BID LISA Administration Atorvastatin Calcium 20 mg 09/06/18 22:00 09/06/18 21:50 Lipitor - PO 20 mg HS LISA Administration Budesonide/Formoterol Fumarate 2 puff 09/06/18 10:00 09/07/18 09:51 Symbicort 80/4.5mcg - IH 2 puff BID LISA Administration Escitalopram Oxalate 10 mg 09/06/18 10:00 09/07/18 09:48 Lexapro - PO 10 mg DAILY LISA Administration Folic Acid 1 mg 09/06/18 10:00 09/07/18 09:48 Folic Acid - PO 1 mg DAILY LISA Administration Cefazolin Sodium/Dextrose 2 gm in 50 mls @ 100 mls/hr 09/06/18 02:00 09:46 Ancef 2 Gm Premixed Ivpb - IVPB 100 mls/hr Q8H-IV LISA Administration Potassium Phosphate 20 mm/ 256.6667 mls @ 62.5 mls/hr 09/07/18 08:28 09:50 Sodium Chloride IVPB 09/07/18 12:34 62.5 mls/hr ONCE ONE Administration Pantoprazole Sodium 20 mg 09/06/18 10:00 09/07/18 09:48 Protonix - PO 20 mg DAILY LISA Administration Prednisone 5 mg 09/06/18 10:00 09/07/18 09:48 Deltasone - PO 5 mg DAILY LISA Administration ASSESSMENT/PLAN: Pt is an 81 year old female with pmhx of SANAM, hemorrhagic cystitis, bilateral nephrostomy tubes, diastolic CHF, pulm HTN, and sarcoid who was sent to the ER for lethargy and hematuria # Hematuria -Supratherapeutic INR of 11.8 on admission. Unclear etiology. -Left Nephrostomy hematuria now resolved -Abdominal ultrasound today to observe for possible liver pathology--> Negative for any definite sonographic abnormality. - Hematology on board Dr Lucas -S/p FFP and Vit K--> INR now 1.39 - Urology On board--> Hematuria is most likely abnormal coagulopathy and low volume. No acute urological intervention at present. Abdominal ultrasound pending #Hypokalemia/ Hypophosphatemia -Potassium 1.8 earlier today -Pt given multiple rounds of K-Khurram and PO KDUR -BMP in AM -Renal on board Dr Del Angel. Spironolactone today as pt sounds congested. KPhos 20 mm administered this am. #MSSA Bacteremia previous Visit -Continue on I.V Cefazolin 2G Q8H -Urine Culture Lactose Fermenting GNB -Consider ID consult #COPD/SARCOIDOSIS -Continue home medications -PulmDr Nicole on board. FEN No Fluids Monitor K+ Reg Diet DVT ppx: No AC in light of recent Bleed Dispo: Tele Visit type - Emergency Visit Emergency Visit: Yes ED Registration Date: 09/05/18 Care time: The patient presented to the Emergency Department on the above date and was hospitalized for further evaluation of their emergent condition. - New Patient This patient is new to me today: No - Critical Care Critical Care patient: No - Discharge Referral Referred to [facility] Med P.C.: No
[2018-09-07] MEDS ORDERED: SPIRONOLACTONE 25 MG TABLET (FP) PO ONE (12:26)
--- NOTE | 2018-09-07 12:26 | PN ---
Progress Note, Physician History of Present Illness: Pt seen and examined at bedside. She complains of shortness of breath. - Current Medication List Current Medications: Active Medications Atenolol (Tenormin -) 25 mg PO BID [facility] Last Admin: 09/07/18 09:48 Dose: 25 mg Atorvastatin Calcium (Lipitor -) 20 mg PO HS [facility] Last Admin: 09/06/18 21:50 Dose: 20 mg Budesonide/Formoterol Fumarate (Symbicort 80/4.5mcg -) 2 puff IH BID [facility] Last Admin: 09/07/18 09:51 Dose: 2 puff Escitalopram Oxalate (Lexapro -) 10 mg PO DAILY [facility] Last Admin: 09/07/18 09:48 Dose: 10 mg Folic Acid (Folic Acid -) 1 mg PO DAILY [facility] Last Admin: 09/07/18 09:48 Dose: 1 mg Cefazolin Sodium/Dextrose (Ancef 2 Gm Premixed Ivpb -) 2 gm in 50 mls @ 100 mls /hr IVPB Q8H-IV [facility] Last Admin: 09/07/18 09:46 Dose: 100 mls/hr Potassium Phosphate 20 mm/ (Sodium Chloride) 256.6667 mls @ 62.5 mls/hr IVPB ONCE ONE Stop: 09/07/18 12:34 Last Admin: 09/07/18 09:50 Dose: 62.5 mls/hr Pantoprazole Sodium (Protonix -) 20 mg PO DAILY [facility] Last Admin: 09/07/18 09:48 Dose: 20 mg Phytonadione (Aqua Mephyton Injection -) 5 mg SQ Q24H [facility] Stop: 09/08/18 11:31 Prednisone (Deltasone -) 5 mg PO DAILY [facility] Last Admin: 09/07/18 09:48 Dose: 5 mg - Objective Vital Signs: Vital Signs Temperature 98.6 F 09/07/18 02:00 Pulse Rate 79 09/07/18 02:00 Respiratory Rate 20 09/07/18 08:08 Blood Pressure 148/62 09/07/18 02:00 O2 Sat by Pulse Oximetry (%) 96 09/07/18 08:08 Constitutional: Yes: Mild Distress Eyes: Yes: Conjunctiva Clear Cardiovascular: Yes: S1, S2 Respiratory: Yes: On Nasal O2, Rhonchi Gastrointestinal: Yes: Soft Genitourinary: Yes: Other (bilateral nephrostomy) Musculoskeletal: Yes: Muscle Weakness Edema: Yes Edema: LLE: Trace, RLE: Trace Neurological: Yes: Oriented Labs: CBC, BMP 09/07/18 05:30 09/07/18 05:45 INR, PTT INR 1.81 (0.83-1.09) H 09/06/18 11:34 Problem List - Problems (1) Elevated INR Code(s): R79.1 - ABNORMAL COAGULATION PROFILE (2) Hypokalemia Code(s): E87.6 - HYPOKALEMIA Assessment/Plan Current Medications Generic Name Dose Route Start Last Admin Trade Name Freq PRN Reason Stop Dose Admin Atenolol 25 mg 09/06/18 10:00 09/07/18 09:48 Tenormin - PO 25 mg BID LISA Administration Atorvastatin Calcium 20 mg 09/06/18 22:00 09/06/18 21:50 Lipitor - PO 20 mg HS LISA Administration Budesonide/Formoterol Fumarate 2 puff 09/06/18 10:00 09/07/18 09:51 Symbicort 80/4.5mcg - IH 2 puff BID LISA Administration Escitalopram Oxalate 10 mg 09/06/18 10:00 09/07/18 09:48 Lexapro - PO 10 mg DAILY LISA Administration Folic Acid 1 mg 09/06/18 10:00 09/07/18 09:48 Folic Acid - PO 1 mg DAILY LISA Administration Cefazolin Sodium/Dextrose 2 gm in 50 mls @ 100 mls/hr 09/06/18 02:00 09:46 Ancef 2 Gm Premixed Ivpb - IVPB 100 mls/hr Q8H-IV LISA Administration Potassium Phosphate 20 mm/ 256.6667 mls @ 62.5 mls/hr 09/07/18 08:28 09:50 Sodium Chloride IVPB 09/07/18 12:34 62.5 mls/hr ONCE ONE Administration Pantoprazole Sodium 20 mg 09/06/18 10:00 09/07/18 09:48 Protonix - PO 20 mg DAILY [facility] Administration Phytonadione 5 mg 09/07/18 11:30 Aqua Mephyton Injection - SQ 09/08/18 11:31 Q24H LISA Prednisone 5 mg 09/06/18 10:00 09/07/18 09:48 Deltasone - PO 5 mg DAILY [facility] Administration Impression 1. hypokalemia 2. elevated INR 3. pulm HTN 4. CHF 5. hematuria 6. sarcoid 7. COPD 8. a-fib 9. hx of HTN 10. hyperlipidemia Plan - replaced potassium - pt sounds congested and is short of breath - will give a dose of spironolactone - check cxr - monitor lytes closely - nephrostomy tube care - replace phos Dr Del Angel
[2018-09-07] MEDS: PHYTONADIONE 10 MG/1 ML AMP SQ SCH (12:49)
--- NOTE | 2018-09-07 12:52 | PN ---
Teaching Attending Note Name of Resident: Marco A Colon ATTENDING PHYSICIAN STATEMENT I saw and evaluated the patient. I reviewed the resident's note and discussed the case with the resident. I agree with the resident's findings and plan as documented with exceptions below. SUBJECTIVE: Patient seen and examined. Tired looking but responsive. No complaints currently , on her way to abdominal ultrasound. OBJECTIVE: Vital Signs Period Temp Pulse Resp BP Sys/Garza Pulse Ox Last 24 Hr 97.6 F-98.6 F 79-96 20-22 112-148/62-69 96-98 Intake & Output 09/04/18 09/05/18 09/06/18 09/07/18 23:59 23:59 23:59 23:59 Intake Total 340 580 Output Total 900 525 200 Balance -900 -185 380 Weight 150 lb 150 lb 150 lb General: lying in bed in no acute distress Chest: decreased effort, occasional scattered rales Abdomen:soft, obese, NT, Bilateral nephrostomy in place draining clear urine, no CVA tenderness Extremities: no edema Active Medications Atenolol (Tenormin -) 25 mg PO BID [facility] Last Admin: 09/07/18 09:48 Dose: 25 mg Atorvastatin Calcium (Lipitor -) 20 mg PO HS [facility] Last Admin: 09/06/18 21:50 Dose: 20 mg Budesonide/Formoterol Fumarate (Symbicort 80/4.5mcg -) 2 puff IH BID [facility] Last Admin: 09/07/18 09:51 Dose: 2 puff Escitalopram Oxalate (Lexapro -) 10 mg PO DAILY [facility] Last Admin: 09/07/18 09:48 Dose: 10 mg Folic Acid (Folic Acid -) 1 mg PO DAILY [facility] Last Admin: 09/07/18 09:48 Dose: 1 mg Cefazolin Sodium/Dextrose (Ancef 2 Gm Premixed Ivpb -) 2 gm in 50 mls @ 100 mls /hr IVPB Q8H-IV [facility] Last Admin: 09/07/18 09:46 Dose: 100 mls/hr Pantoprazole Sodium (Protonix -) 20 mg PO DAILY [facility] Last Admin: 09/07/18 09:48 Dose: 20 mg Phytonadione (Aqua Mephyton Injection -) 5 mg SQ Q24H [facility] Stop: 09/08/18 11:31 Last Admin: 09/07/18 12:49 Dose: 5 mg Prednisone (Deltasone -) 5 mg PO DAILY [facility] Last Admin: 09/07/18 09:48 Dose: 5 mg Laboratory Results - last 24 hr 09/06/18 09/06/18 09/06/18 06:00 19:00 22:52 WBC Cancelled Corrected WBC (auto) Cancelled RBC Cancelled Hgb Cancelled Hct Cancelled MCV Cancelled MCH Cancelled MCHC Cancelled RDW Cancelled Plt Count Cancelled MPV Cancelled Absolute Neuts (auto) Cancelled Neutrophils % Cancelled Lymphocytes % Cancelled Monocytes % Cancelled Eosinophils % Cancelled Basophils % Cancelled Nucleated RBC % Cancelled Platelet Estimate Cancelled Platelet Comment Cancelled Sodium Potassium Chloride Carbon Dioxide Anion Gap BUN Creatinine Creat Clearance w eGFR Random Glucose Hemoglobin A1c % 6.1 Calcium Phosphorus 2.9 Magnesium 2.1 09/06/18 09/07/18 09/07/18 22:52 05:30 05:45 WBC 6.2 Corrected WBC (auto) RBC 3.25 L Hgb 8.3 L Hct 26.2 L MCV 80.7 D MCH 25.5 L MCHC 31.6 L RDW 24.8 H Plt Count 298 MPV 8.6 D Absolute Neuts (auto) Neutrophils % Lymphocytes % Monocytes % Eosinophils % Basophils % Nucleated RBC % Platelet Estimate Platelet Comment Sodium 143 143 Potassium 2.8 L* 3.3 L Chloride 94 L 95 L Carbon Dioxide 41 H 39 H Anion Gap 8 9 BUN 16 16 Creatinine 0.8 0.7 Creat Clearance w eGFR > 60 > 60 Random Glucose 144 H 101 Hemoglobin A1c % Calcium 7.6 L 7.5 L Phosphorus 1.6 L Magnesium 2.0 Microbiology 09/05/18 18:20 Urine - Urine Clean Catch Urine Culture - Preliminary Non Lactose Fermenting Gnb ASSESSMENT AND PLAN: 81 yof with PMHx of Chronic respiratory failure, 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 -Supratherapeutic INR, ?etiology, ?Nutritional, antibiotic mediated. -Severe hypokalemia, with EKG changes -Hypomagnesemia -Hypophosphatemia -Metabolic alkalosis, suspect contraction alkalosis, ?lasix mediated -AMS, ?toxic metabolic encephalopathy from above -Acute on chronic anemia, ?Blood loss from coagulopathy, no gross evidence of bleed currently -Recent haemorrhagic cystitis s/p Cystoscopy 08/11(complicated by hypotension requiring ICU/pressors), b/l nephrostomy tube placement 08/16, -Complicated UTI on Cefazolin (via PICC line) -Chronic respiratory failure -Oxygen (3L)/steroid dependent COPD -CAD -Pulmonary HTN -Sarcoidosis Plan: REnal/hematology inputnoted. Additional K/phos supplementation. Continue telemetry monitoring for now. INR improved, repeat today. Trial vitamin K 5 subq 2-3 doses as discussed with Dr. Lucas. URine cultures noted, on cefazolin via PICC, ID input. Monitor closely for volume overload, mild tachypnea today. Discussed with Dr. Del Angel, spironolactone x 1. Strict I/Os and daily weights. CXR. Pulmonary input noted. Continue home steroids. DVTPPX with SCDs Dispo pending clinical improvement in 2-3 days if continues to improve and no concerns.
[2018-09-07] MEDS ORDERED: POTASSIUM CHLORIDE TABS 20 MEQ TABLET.ER (FP) PO ONE (13:20)
[2018-09-07 14:18] LABS: ALBUMIN 2.3 g/dl (3.4-5.0); ALK PHOS 98 U/L (45-117); ANION GAP 16 MMOL/L (8-16); BILIRUBIN,TOTAL 1.5 mg/dL (0.2-1); BLOOD UREA NITROGEN 17 mg/dL (7-18); CALCIUM 7.8 mg/dL (8.5-10.1); CHLORIDE 102 mmol/L (98-107); CO2 32 mmol/L (21-32); CREATININE 0.8 mg/dL (0.55-1.3); GLUCOSE,RANDOM 97 mg/dL (74-106); POTASSIUM 3.2 mmol/L (3.5-5.1); SGOT/AST 35 U/L (15-37); SGPT/ALT 13 U/L (13-61); SODIUM 150 mmol/L (136-145)
[2018-09-07 14:28] LABS: INR 1.39 (0.83-1.09); PROTHROMBIN TIME (PATIENT) 16.4 SEC (9.7-13.0)
[2018-09-07 15:35] LABS: ANION GAP 9 MMOL/L (8-16); BLOOD UREA NITROGEN 16 mg/dL (7-18); CALCIUM 8.1 mg/dL (8.5-10.1); CHLORIDE 95 mmol/L (98-107); CO2 37 mmol/L (21-32); CREATININE 0.8 mg/dL (0.55-1.3); GLUCOSE,RANDOM 172 mg/dL (74-106); POTASSIUM 3.8 mmol/L (3.5-5.1); SODIUM 141 mmol/L (136-145)
[2018-09-07] MEDS: ACETAMINOPHEN 325 MG TABLET (FP) PO PRN (21:35)
[2018-09-07] MEDS: ATORVASTATIN CA 20 MG TABLET (FP) PO SCH (21:35)
[2018-09-07 21:37] LABS: ANION GAP 11 MMOL/L (8-16); BLOOD UREA NITROGEN 15 mg/dL (7-18); CALCIUM 7.8 mg/dL (8.5-10.1); CHLORIDE 95 mmol/L (98-107); CO2 35 mmol/L (21-32); CREATININE 0.9 mg/dL (0.55-1.3); GLUCOSE,RANDOM 162 mg/dL (74-106); POTASSIUM 3.7 mmol/L (3.5-5.1); SODIUM 141 mmol/L (136-145)
[2018-09-07] MEDS ORDERED: FAMOTIDINE 20 MG/50 ML IVPB 20 MG/50 ML MG IVPB ONE (23:51)
[2018-09-08] MEDS: CEFAZOLIN 2 GM/D5W 2 GM/50 ML ML IVPB SCH ×3 (02:44→17:04)
[2018-09-08 07:01] LABS: BASO % 0.5 % (0-2.0); EOS % 0.3 % (0-4.5); HEMOGLOBIN 8.9 GM/dL (10.7-15.3); LYMPH % 38.8 % (8-40); MCH 24.4 pg (25.7-33.7); MCHC 31.6 g/dl (32.0-36.0); MEAN CELL VOLUME 77.4 fl (80-96); MEAN PLT VOLUME 8.2 fl (7.5-11.1); MONO % 9.2 % (3.8-10.2); NEUT % 51.2 % (42.8-82.8); PLATELET COUNT 283 K/MM3 (134-434); RBC 3.62 M/mm3 (3.60-5.2); RDW 24.7 % (11.6-15.6); WHITE BLOOD COUNT 7.6 K/mm3 (4.0-10.0)
[2018-09-08 07:06] LABS: INR 1.58 (0.83-1.09); PROTHROMBIN TIME (PATIENT) 18.7 SEC (9.7-13.0)
[2018-09-08 07:38] LABS: ALBUMIN 2.2 g/dl (3.4-5.0); ALK PHOS 100 U/L (45-117); ANION GAP 5 MMOL/L (8-16); BILIRUBIN,TOTAL 1.2 mg/dL (0.2-1); BLOOD UREA NITROGEN 15 mg/dL (7-18); CALCIUM 8.1 mg/dL (8.5-10.1); CHLORIDE 97 mmol/L (98-107); CO2 40 mmol/L (21-32); CREATININE 0.7 mg/dL (0.55-1.3); GLUCOSE,RANDOM 107 mg/dL (74-106); POTASSIUM 3.4 mmol/L (3.5-5.1); SGOT/AST 25 U/L (15-37); SGPT/ALT < 6 U/L (13-61); SODIUM 142 mmol/L (136-145); TOT PROT 6.6 g/dl (6.4-8.2)
[2018-09-08] MEDS ORDERED: POTASSIUM CHLORIDE TABS 20 MEQ TABLET.ER (FP) PO ONE ×3 (08:54→22:45)
[2018-09-08] MEDS: ATENOLOL 25 MG TABLET (FP) PO SCH ×2 (09:27→21:56)
[2018-09-08] MEDS: ESCITALOPRAM OXALATE 10 MG TABLET (FP) PO SCH (09:27)
[2018-09-08] MEDS: predniSONE 5 MG TABLET (UD) PO SCH (09:27)
[2018-09-08] MEDS: PANTOPRAZOLE 20 MG TABLET (FP) PO SCH (09:27)
[2018-09-08] MEDS: FOLIC ACID 1 MG TABLET (FP) PO SCH (09:27)
[2018-09-08] MEDS: BUDESONIDE/FORMETEROL FUMARATE 80/4.5 mcg INHALER IH SCH ×2 (09:29→21:56)
[2018-09-08] MEDS: KCL 10 MEQ IVPB 10 MEQ/100 ML INFUS.BAG IVPB SCH ×2 (09:56→12:22)
--- NOTE | 2018-09-08 10:02 | EKG ---
Test Reason : Blood Pressure : / mmHG Vent. Rate : 108 BPM Atrial Rate : 064 BPM P-R Int : 000 ms QRS Dur : 082 ms QT Int : 362 ms P-R-T Axes : 000 -02 -56 degrees QTc Int : 485 ms ATRIAL FIBRILLATION WITH RAPID VENTRICULAR RESPONSE WITH PREMATURE VENTRICULAR OR ABERRANTLY CONDUCTED COMPLEXES ABNORMAL ECG WHEN COMPARED WITH ECG OF 06-SEP-2018 12:55, NO SIGNIFICANT CHANGE WAS FOUND Confirmed by LUIS E ELIZABETH MD ([id number]) on 09/08/2018 10:02:21 AM Referred By: Confirmed By:LUIS E ELIZABETH MD
--- NOTE | 2018-09-08 10:55 | PN ---
Progress Note, Physician History of Present Illness: PULMONARY MORE LETHARGIC TODAY,-RESP DISTRESS - Current Medication List Current Medications: Active Medications Acetaminophen (Tylenol -) 650 mg PO Q4H PRN PRN Reason: PAIN Last Admin: 09/07/18 21:35 Dose: 650 mg Atenolol (Tenormin -) 25 mg PO BID [facility] Last Admin: 09/08/18 09:27 Dose: 25 mg Atorvastatin Calcium (Lipitor -) 20 mg PO HS [facility] Last Admin: 09/07/18 21:35 Dose: 20 mg Budesonide/Formoterol Fumarate (Symbicort 80/4.5mcg -) 2 puff IH BID [facility] Last Admin: 09/08/18 09:29 Dose: 2 puff Escitalopram Oxalate (Lexapro -) 10 mg PO DAILY [facility] Last Admin: 09/08/18 09:27 Dose: 10 mg Folic Acid (Folic Acid -) 1 mg PO DAILY [facility] Last Admin: 09/08/18 09:27 Dose: 1 mg Cefazolin Sodium/Dextrose (Ancef 2 Gm Premixed Ivpb -) 2 gm in 50 mls @ 100 mls /hr IVPB Q8H-IV [facility] Last Admin: 09/08/18 09:56 Dose: 100 mls/hr Potassium Chloride (Potassium Chloride 10 Meq Premix Ivpb -) 10 meq in 100 mls @ 100 mls/hr IVPB Q60M [facility] Stop: 09/08/18 11:14 Last Admin: 09/08/18 09:56 Dose: 100 mls/hr Pantoprazole Sodium (Protonix -) 20 mg PO DAILY [facility] Last Admin: 09/08/18 09:27 Dose: 20 mg Phytonadione (Aqua Mephyton Injection -) 5 mg SQ Q24H [facility] Stop: 09/08/18 11:31 Last Admin: 09/07/18 12:49 Dose: 5 mg Prednisone (Deltasone -) 5 mg PO DAILY [facility] Last Admin: 09/08/18 09:27 Dose: 5 mg - Objective Vital Signs: Vital Signs Temperature 97.2 F L 09/08/18 06:00 Pulse Rate 85 09/08/18 06:00 Respiratory Rate 20 09/08/18 06:00 Blood Pressure 136/87 09/08/18 06:00 O2 Sat by Pulse Oximetry (%) 98 09/07/18 21:00 Constitutional: Yes: Well Nourished, Other (LETHARGIC) Eyes: Yes: WNL HENT: Yes: WNL Neck: Yes: WNL Cardiovascular: Yes: Pulse Irregular, S1, S2 Respiratory: Yes: Rales (WEN CRACKLES) Gastrointestinal: Yes: Normal Bowel Sounds, Soft Extremities: Yes: WNL Edema: No Labs: CBC, BMP 09/08/18 06:00 09/08/18 06:00 INR, PTT INR 1.58 (0.83-1.09) H 09/08/18 06:00 Problem List - Problems (1) Supratherapeutic INR Code(s): R79.1 - ABNORMAL COAGULATION PROFILE (2) Elevated INR Code(s): R79.1 - ABNORMAL COAGULATION PROFILE (3) Hypokalemia Code(s): E87.6 - HYPOKALEMIA (4) Acute and chronic respiratory failure with hypoxia Code(s): J96.21 - ACUTE AND CHRONIC RESPIRATORY FAILURE WITH HYPOXIA (5) Atrial fibrillation Code(s): I48.91 - UNSPECIFIED ATRIAL FIBRILLATION Qualifiers: Atrial fibrillation type: permanent Qualified Code(s): I48.2 - Chronic atrial fibrillation (6) Chronic respiratory failure with hypoxia Code(s): J96.11 - CHRONIC RESPIRATORY FAILURE WITH HYPOXIA (7) Pulmonary HTN Code(s): I27.20 - PULMONARY HYPERTENSION, UNSPECIFIED (8) Sarcoidosis Code(s): D86.9 - SARCOIDOSIS, UNSPECIFIED (9) Acute on chronic respiratory failure with hypoxia and hypercapnia Code(s): J96.21 - ACUTE AND CHRONIC RESPIRATORY FAILURE WITH HYPOXIA; J96.22 - ACUTE AND CHRONIC RESPIRATORY FAILURE WITH HYPERCAPNIA Assessment/Plan IMP ACUTE ON CHRONIC HYPOXEMIC/HYPERCAPNEIC RESPIRATORY FAILURE ADVANCED COPD O2 DEPENDENT SARCOID PULMONARY HYPERTENSION CHF ALTERED MENTAL STATUS SEVERE HYPOKALEMIA SUPRA-THERAPEUTIC INR S/P FFP AFIB S/P MSSA SEPSIS HEMATURIA HYPOKALEMIC/ HYPOCHLOREMIC METABOLIC ALKALOSIS PLAN REPLETE K O2 INHALED BRONCHODILATORS PREDNISONE ABG MONITOR LYTES ABX MONITOR INR DR ALBERT Problem List - Problems (1) Supratherapeutic INR Code(s): R79.1 - ABNORMAL COAGULATION PROFILE (2) Elevated INR Code(s): R79.1 - ABNORMAL COAGULATION PROFILE (3) Hypokalemia Code(s): E87.6 - HYPOKALEMIA (4) Acute and chronic respiratory failure with hypoxia Code(s): J96.21 - ACUTE AND CHRONIC RESPIRATORY FAILURE WITH HYPOXIA (5) Atrial fibrillation Code(s): I48.91 - UNSPECIFIED ATRIAL FIBRILLATION Qualifiers: Atrial fibrillation type: permanent Qualified Code(s): I48.2 - Chronic atrial fibrillation (6) Chronic respiratory failure with hypoxia Code(s): J96.11 - CHRONIC RESPIRATORY FAILURE WITH HYPOXIA (7) Pulmonary HTN Code(s): I27.20 - PULMONARY HYPERTENSION, UNSPECIFIED (8) Sarcoidosis Code(s): D86.9 - SARCOIDOSIS, UNSPECIFIED (9) Acute on chronic respiratory failure with hypoxia and hypercapnia Code(s): J96.21 - ACUTE AND CHRONIC RESPIRATORY FAILURE WITH HYPOXIA; J96.22 - ACUTE AND CHRONIC RESPIRATORY FAILURE WITH HYPERCAPNIA
[2018-09-08] MEDS: PHYTONADIONE 10 MG/1 ML AMP SQ SCH ×2 (11:19→12:21)
[2018-09-08 11:41] LABS: ARTERIAL BLD GAS O2 SATURATION 99.6 % (90-98.9); ARTERIAL BLOOD GAS BASE EXCESS 13.2 meq/l (-2-2); ARTERIAL BLOOD GAS PCO2 59.3 mmHg (35-45); ARTERIAL BLOOD GAS pH 7.43 (7.35-7.45)
[2018-09-08 11:56] LABS: ALLENS TEST POSITIVE
[2018-09-08 12:28] LABS: ANISOCYTOSIS 2+; MACROCYTOSIS 0; PLATELET ESTIMATE NORMAL; TARGET CELLS 1+; TEAR DROP CELLS 1+
--- NOTE | 2018-09-08 13:04 | CON.GI ---
Consult Consult Specialty:: GI: For Dr. Sanders, who resumes coverage 09/09 Referred by:: Hospitalist Service Reason for Consultation:: Blood in stool - History of Present Illness Chief Complaint: Patient gives no focal GI complaints History of Present Illness: 81F residing in [place] admitted for lethargy and hematuria. INR was 11. Asked to evaluate for "blood in stool". No abdominal pain. Has followed with Dr. sanders. in 2011 he performed what appears to be EGD (patholoygy report noted in [facility]) that revealed intestinal metaplasia on biopsies of [place]. He evaluated her in 2017 diarrhea. She was evaluated in 2018 for abdominal pain while Dr. bay was covering Dr. Sanders. She had an UGIS at that time that was unrevealing. She had an abd US 09/07 revealing dilated IVC and Hepatic veins c/w cardiac dysfunction. 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: Yes: Vertigo (intermittent) Cardio/Vascular: Yes: AFIB, CHF, HTN, Hyperlipdemia, Pulmonary Hypertension, Other (Sarcoidosis) Pulmonary: Yes: Asthma, COPD Renal/: Yes: Hematuria Psych: Yes: Depression - Past Surgical History Past Surgical History: Yes: Cholecystectomy, Hysterectomy - Alcohol/Substance Use Hx Alcohol Use: No History of Substance Use: reports: None - Smoking History Smoking history: Never smoked Have you smoked in the past 12 months: No Aproximately how many cigarettes per day: 0 - Social History Usual Living Arrangement: Other (most recently has been at [place], and since developing pain has been ambulating with ) Place of : [facility] History of Recent Travel: No Home Medications - Allergies Allergies/Adverse Reactions: Allergies Allergy/AdvReac Type Severity Reaction Status Date / Time No Known Allergies Allergy Verified 06/19/18 21:10 - Home Medications Home Medications: Ambulatory Orders Atorvastatin Ca [Lipitor] 20 mg PO HS 04/16/18 Escitalopram Oxalate [Lexapro -] 10 mg PO DAILY 04/16/18 Folic Acid 1 mg PO DAILY 04/16/18 Ipratropium Dayhoit [Atrovent Hfa] 1 neb NEB Q4H PRN 04/17/18 Albuterol Sulfate [Proventil HFA Inhaler -] 1 - 2 inh PO QID PRN 06/20/18 Budesonide/Formeterol Fumarate [SYMBICORT 160/4.5mcg -] 1 inh PO BID 06/20/18 Furosemide [Lasix] 40 mg PO DAILY 06/20/18 Lorazepam 0.5 mg PO Q8H PRN 06/20/18 Omeprazole 20 mg PO DAILY 06/20/18 Atenolol [Tenormin] 25 mg PO BID #30 tablet 06/23/18 Polyethylene Glycol 3350 [Miralax 119 gm Btl -] 17 gm PO BID bottle 06/23/18 Sennosides [Senna -] 2 tab PO HS tablet 06/23/18 Cefazolin Sodium in 0.9 % NaCl [Cefazolin 2 G/100 ml-0.9% NaCl] 2 gm IV Q8H #45 plast..bag 08/25/18 Prednisone See Taper PO DAILY #30 tablet 08/25/18 Family Disease History - Family Disease History Family Disease History: Heart Disease: Father, Mother, Other: Sister (Colon cancer) Review of Systems - Review of Systems Cardiovascular: denies: Chest Pain Respiratory: reports: SOB Gastrointestinal: denies: Abdominal Pain, Constipation, Diarrhea, Melena Physical Exam-GI Vital Signs: Vital Signs Temperature 97.2 F L 09/08/18 06:00 Pulse Rate 85 09/08/18 06:00 Respiratory Rate 20 09/08/18 09:00 Blood Pressure 136/87 09/08/18 06:00 O2 Sat by Pulse Oximetry (%) 97 09/08/18 09:00 Constitutional: Yes: Calm Eyes: No: Sclera Icterus Cardiovascular: Yes: Pulse Irregular Respiratory: Yes: Diminished (at bases bilaterally) Gastrointestinal Inspection: No: Distention ...Auscultate: Yes: Normoactive Bowel Sounds ...Palpate: No: Hepatomegaly, Splenomegaly, Tenderness ...Percussion: No: Tympanitic ...Rectal Exam: Yes: Other (No external lesions, no masses, orange / treviño colored stool in rectal vault, tracely guaiac positive) Edema: No (No LE edema) Neurological: Yes: Alert Labs: CBC, BMP 09/08/18 06:00 09/08/18 06:00 INR, PTT INR 1.58 (0.83-1.09) H 09/08/18 06:00 Hepatic Panel Total Bilirubin 1.2 mg/dL (0.2-1) H 09/08/18 06:00 Direct Bilirubin 0.8 mg/dL (0.0-0.2) H 09/06/18 11:35 AST 25 U/L (15-37) 09/08/18 06:00 ALT < 6 U/L (13-61) L 09/08/18 06:00 Alkaline Phosphatase 100 U/L (45-117) 09/08/18 06:00 Albumin 2.2 g/dl (3.4-5.0) L 09/08/18 06:00 Problem List - Problems (1) Blood in stool Assessment/Plan: No overt blood noted on my exam. Tracely guaiac positive in setting of recent markedly elevated INR. Ms. Jim is uncertain regarding the family history of colon cancer noted in the chart or if she has had a previous colonoscopy. When acute issues are resolved and when medically cleared, colonoscopy could be discussed. Monitor GH/H and for signs of active GI bleeding. Dr. Sanders resumes coverage 09/09. Discussed with him. Code(s): K92.1 - MELENA
--- NOTE | 2018-09-08 13:20 | PN ---
Progress Note (short form) - Note Progress Note: ID Consult dictated Gross hematuria, likely secondary to coagulopathy S/P bilateral PCN + Urine c/s ESBL probable colonizer MSSA bacteremia day # 27/ cefazolin ? toxic metabolic encephaolpathy Obtain BC Complete additional 24hr cefazolin No tx for + urine c/s ESBL at this time If however procedure planned would prophylactically tx with ertapenem
--- NOTE | 2018-09-08 13:32 | PN ---
Progress Note (short form) - Note Progress Note: Undergoing GI assessment Persistent left shift and normoblasts in peripheral blood For flow cytometry Fe++ studies pending Ferritin- [id number].
--- NOTE | 2018-09-08 14:02 | CONS ---
DATE OF CONSULTATION: DATE OF DICTATION: 09/08/2018 INFECTIOUS DISEASE CONSULTATION The patient is an 81-year-old female who is evaluated for positive urine culture. History is obtained from the chart as she cannot give a history secondary to her mental status. She was recently admitted to [facility] from July 25 through August 26 for acute exacerbation COPD/CHF. At that time she had gone for a cystoscopy for evaluation of gross hematuria. Postprocedure she developed hypotension requiring transfer to the intensive care unit. Blood cultures were positive for methicillin-sensitive Staphylococcus aureus. She ultimately required bilateral percutaneous nephrostomies and received a PICC line to complete a 28-day course of cefazolin for MSSA bacteremia. She is not admitted from the [facility] with increased lethargy and gross hematuria from the left percutaneous nephrostomy. She was found to have a supratherapeutic INR of 10. She was seen in consultation by Urology who felt the gross hematuria was secondary to coagulopathy. She is completing her 28-day course of treatment for staph bacteremia presently day number . She offers no complaints, although she appears confused. No reports of high-grade fever, shaking chills, labored breathing, vomiting, diarrhea, or grossly purulent urine. PAST MEDICAL HISTORY: Positive for COPD, congestive heart failure, coronary artery disease, hypertension, pulmonary hypertension, sarcoidosis, status post cholecystectomy and hysterectomy. No known allergies. MEDICATIONS: Lipitor, Lexapro, Proventil, Lasix, Symbicort, omeprazole, atenolol. SOCIAL HISTORY: Presently residing in a detention facility LABORATORY DATA: White count 7.6, hematocrit 28.0, platelet count 283. BUN 15, creatinine 0.7. Urinalysis 11 white cells, urine culture 30,000-40,000 colonies ESBL. PHYSICAL EXAMINATION: General: She is awake but confused. Vital Signs: Temperature 97.2, blood pressure 136/87, pulse 85 regular, respirations 20 per minute. Eyes: Sclerae anicteric. Heart: Sounds S1, S2. No murmur. Lungs: Clear. Abdomen: Soft. No suprapubic or flank tenderness. Pelvic: Bilateral percutaneous nephrostomies in place. Urine is tea colored, not grossly hemorrhagic. Extremities: Negative for edema. IMPRESSION: 1. Positive urine culture extended-spectrum beta-lactamase likely colonizer. 2. Status post bilateral percutaneous nephrostomies for obstructive uropathy. 3. Methicillin-sensitive Staphylococcus aureus bacteremia likely urinary tract focus completing 28-day course of treatment. 4. Coagulopathy. Would not treat ESBL in the urine as this likely represents colonization. If, however, Urology or Interventional Radiology plans to insert ureteral stents and remove percutaneous nephrostomies, would prophylactically treat with ertapenem 1 g IV piggyback prior to the procedure and 1 or 2 doses postprocedure. Complete 28-day course of cefazolin for MSSA bacteremia. Thank you for the kind referral. LUIS E MAYA M.D. [id number]
--- NOTE | 2018-09-08 14:52 | PN ---
Physical Exam: SUBJECTIVE: Patient seen and examined at bedside. More alert than yesterday. OBJECTIVE: Vital Signs Period Temp Pulse Resp BP Sys/Garza Pulse Ox Last 24 Hr 97.2 F-98.4 F 85-112 20-20 115-136/69-87 97-98 GENERAL: Awake Alert NAD HEAD: NC/AT EYES: No Scleral icterus no injected conjunctiva, ENT: MMM LUNGS: Diffuse Crackles HEART: Irregular Rythm. ABDOMEN: NDNT No HSM B/L percutaneous nephrostomy tubes in place hematuria less EXTREMITIES: No Pedal Edema appreciated NEUROLOGICAL: No gross neurological abnormalities appreciated SKIN: No rashes or lesions appreciated Laboratory Results - last 24 hr 09/07/18 09/07/18 09/08/18 13:57 20:40 06:00 WBC RBC Hgb Hct MCV MCH MCHC RDW Plt Count MPV Absolute Neuts (auto) Neutrophils % Neutrophils % (Manual) Band Neutrophils % Lymphocytes % Lymphocytes % (Manual) Monocytes % Monocytes % (Manual) Eosinophils % Eosinophils % (Manual) Basophils % Basophils % (Manual) Myelocytes % (Man) Promyelocytes % (Man) Blast Cells % (Manual) Nucleated RBC % Metamyelocytes Hypochromia Platelet Estimate Polychromasia Poikilocytosis Anisocytosis Microcytosis Macrocytosis Target Cells Tear Drop Cells PT with INR INR Puncture Site ABG pH ABG pCO2 at Pt Temp ABG pO2 at Pt Temp ABG HCO3 ABG O2 Sat (Measured) ABG O2 Content ABG Base Excess Junior Test Oxygen Flow Rate Sodium 141 141 142 Potassium 3.8 3.7 3.4 L Chloride 95 L 95 L 97 L Carbon Dioxide 37 H 35 H 40 H Anion Gap 9 11 5 L BUN 16 15 15 Creatinine 0.8 0.9 0.7 Creat Clearance w eGFR > 60 59.94 > 60 Random Glucose 172 H 162 H 107 H Calcium 8.1 L 7.8 L 8.1 L Magnesium 2.0 Ferritin 1192.2 H Total Bilirubin 1.2 H AST 25 ALT < 6 L Alkaline Phosphatase 100 Troponin I 0.06 H 0.05 Total Protein 6.6 Albumin 2.2 L 09/08/18 09/08/18 09/08/18 06:00 06:00 11:35 WBC 7.6 RBC 3.62 Hgb 8.9 L Hct 28.0 L MCV 77.4 L MCH 24.4 L MCHC 31.6 L RDW 24.7 H Plt Count 283 MPV 8.2 Absolute Neuts (auto) 3.9 Neutrophils % 51.2 Neutrophils % (Manual) 53.1 Band Neutrophils % 0.0 Lymphocytes % 38.8 D Lymphocytes % (Manual) 33.7 D Monocytes % 9.2 Monocytes % (Manual) 7 Eosinophils % 0.3 Eosinophils % (Manual) 0.0 Basophils % 0.5 Basophils % (Manual) 1.0 D Myelocytes % (Man) 1 Promyelocytes % (Man) 0 Blast Cells % (Manual) 0 Nucleated RBC % 1 H Metamyelocytes 1 D Hypochromia 0 Platelet Estimate Normal Polychromasia 1+ Poikilocytosis 1+ Anisocytosis 2+ Microcytosis 1+ Macrocytosis 0 Target Cells 1+ Tear Drop Cells 1+ PT with INR 18.70 H INR 1.58 H Puncture Site Left radial ABG pH 7.43 ABG pCO2 at Pt Temp 59.3 H ABG pO2 at Pt Temp 171.0 H* D ABG HCO3 39.1 H ABG O2 Sat (Measured) 99.6 H* ABG O2 Content 12.8 L ABG Base Excess 13.2 H Junior Test Positive Oxygen Flow Rate Yes Sodium Potassium Chloride Carbon Dioxide Anion Gap BUN Creatinine Creat Clearance w eGFR Random Glucose Calcium Magnesium Ferritin Total Bilirubin AST ALT Alkaline Phosphatase Troponin I Total Protein Albumin Active Medications Generic Name Dose Route Start Last Admin Trade Name Freq PRN Reason Stop Dose Admin Acetaminophen 650 mg 09/07/18 19:19 09/07/18 21:35 Tylenol - PO 650 mg Q4H PRN Administration PAIN Atenolol 25 mg 09/06/18 10:00 09/08/18 09:27 Tenormin - PO 25 mg BID LISA Administration Atorvastatin Calcium 20 mg 09/06/18 22:00 09/07/18 21:35 Lipitor - PO 20 mg HS LISA Administration Budesonide/Formoterol Fumarate 2 puff 09/06/18 10:00 09/08/18 09:29 Symbicort 80/4.5mcg - IH 2 puff BID LISA Administration Escitalopram Oxalate 10 mg 09/06/18 10:00 09/08/18 09:27 Lexapro - PO 10 mg DAILY LISA Administration Folic Acid 1 mg 09/06/18 10:00 09/08/18 09:27 Folic Acid - PO 1 mg DAILY LISA Administration Cefazolin Sodium/Dextrose 2 gm in 50 mls @ 100 mls/hr 09/06/18 02:00 09:56 Ancef 2 Gm Premixed Ivpb - IVPB 100 mls/hr Q8H-IV LISA Administration Pantoprazole Sodium 20 mg 09/06/18 10:00 09/08/18 09:27 Protonix - PO 20 mg DAILY LISA Administration Prednisone 5 mg 09/06/18 10:00 09/08/18 09:27 Deltasone - PO 5 mg DAILY LISA Administration ASSESSMENT/PLAN: Pt is an 81 year old female with pmhx of SANAM, hemorrhagic cystitis, bilateral nephrostomy tubes, diastolic CHF, pulm HTN, and sarcoid who was sent to the ER for lethargy and hematuria # Hematuria -Supratherapeutic INR of 11.8 on admission. Unclear etiology. -Left Nephrostomy hematuria now resolved -Abdominal ultrasound today to observe for possible liver pathology--> Negative for any definite sonographic abnormality. - Hematology on board Dr Lucas INR 1.58 - Urology On board--> Hematuria is most likely abnormal coagulopathy and low volume. No acute urological intervention at present. Abdominal ultrasound pending #Rectal Bleeding: -GI On Board - Colonoscopy could be discussed. Monitor H/H and for signs of active GI bleeding. #Hypokalemia/ Hypophosphatemia -Potassium 3.4 this am. Given 40 mEq KDUR, 20 mEq KRIDER -BMP in AM -Renal on board Dr Del Angel. Spironolactone given yesterday. #MSSA Bacteremia previous Visit -Continue on I.V Cefazolin 2G Q8H for 1 more day -Urine Culture Lactose Fermenting GNB -Dr Garcia on board -Obtain BC -Complete additional 24hr cefazolin -No tx for + urine c/s ESBL at this time #COPD/SARCOIDOSIS -Continue home medications -Dr Corey Lam on board. FEN No Fluids Monitor K+ Reg Diet DVT ppx: No AC in light of recent Bleed Dispo: Tele Visit type - Emergency Visit Emergency Visit: Yes ED Registration Date: 09/05/18 Care time: The patient presented to the Emergency Department on the above date and was hospitalized for further evaluation of their emergent condition. - New Patient This patient is new to me today: No - Critical Care Critical Care patient: No - Discharge Referral Referred to [facility] No
[2018-09-08] MEDS ORDERED: SPIRONOLACTONE 25 MG TABLET (FP) PO ONE (15:38)
--- NOTE | 2018-09-08 15:38 | PN ---
Progress Note, Physician History of Present Illness: Pt seen and examined at bedside. She is awake and alert. SHe complains of shortness of breath. She had blood with her stool today. - Current Medication List Current Medications: Active Medications Acetaminophen (Tylenol -) 650 mg PO Q4H PRN PRN Reason: PAIN Last Admin: 09/07/18 21:35 Dose: 650 mg Atenolol (Tenormin -) 25 mg PO BID [facility] Last Admin: 09/08/18 09:27 Dose: 25 mg Atorvastatin Calcium (Lipitor -) 20 mg PO HS [facility] Last Admin: 09/07/18 21:35 Dose: 20 mg Budesonide/Formoterol Fumarate (Symbicort 80/4.5mcg -) 2 puff IH BID [facility] Last Admin: 09/08/18 09:29 Dose: 2 puff Escitalopram Oxalate (Lexapro -) 10 mg PO DAILY [facility] Last Admin: 09/08/18 09:27 Dose: 10 mg Folic Acid (Folic Acid -) 1 mg PO DAILY [facility] Last Admin: 09/08/18 09:27 Dose: 1 mg Cefazolin Sodium/Dextrose (Ancef 2 Gm Premixed Ivpb -) 2 gm in 50 mls @ 100 mls /hr IVPB Q8H-IV [facility] Last Admin: 09/08/18 09:56 Dose: 100 mls/hr Pantoprazole Sodium (Protonix -) 20 mg PO DAILY [facility] Last Admin: 09/08/18 09:27 Dose: 20 mg Prednisone (Deltasone -) 5 mg PO DAILY [facility] Last Admin: 09/08/18 09:27 Dose: 5 mg - Objective Vital Signs: Vital Signs Temperature 97.3 F L 09/08/18 14:00 Pulse Rate 91 H 09/08/18 14:00 Respiratory Rate 20 09/08/18 14:00 Blood Pressure 115/70 09/08/18 14:00 O2 Sat by Pulse Oximetry (%) 97 09/08/18 09:00 Constitutional: Yes: Calm Eyes: Yes: Conjunctiva Clear HENT: Yes: Atraumatic Cardiovascular: Yes: S1, S2 Respiratory: Yes: On Nasal O2, SOB, Tachypnea Gastrointestinal: Yes: Soft Genitourinary: Yes: Other (bilateral nephrostomy tubes) Edema: Yes Edema: LLE: Trace, RLE: Trace Neurological: Yes: Oriented Psychiatric: Yes: Oriented Labs: CBC, BMP 09/08/18 06:00 09/08/18 06:00 INR, PTT INR 1.58 (0.83-1.09) H 09/08/18 06:00 Problem List - Problems (1) Elevated INR Code(s): R79.1 - ABNORMAL COAGULATION PROFILE (2) Hypokalemia Code(s): E87.6 - HYPOKALEMIA Assessment/Plan Current Medications Generic Name Dose Route Start Last Admin Trade Name Freq PRN Reason Stop Dose Admin Acetaminophen 650 mg 09/07/18 19:19 09/07/18 21:35 Tylenol - PO 650 mg Q4H PRN Administration PAIN Atenolol 25 mg 09/06/18 10:00 09/08/18 09:27 Tenormin - PO 25 mg BID LISA Administration Atorvastatin Calcium 20 mg 09/06/18 22:00 09/07/18 21:35 Lipitor - PO 20 mg HS LISA Administration Budesonide/Formoterol Fumarate 2 puff 09/06/18 10:00 09/08/18 09:29 Symbicort 80/4.5mcg - IH 2 puff BID LISA Administration Escitalopram Oxalate 10 mg 09/06/18 10:00 09/08/18 09:27 Lexapro - PO 10 mg DAILY LISA Administration Folic Acid 1 mg 09/06/18 10:00 09/08/18 09:27 Folic Acid - PO 1 mg DAILY LISA Administration Cefazolin Sodium/Dextrose 2 gm in 50 mls @ 100 mls/hr 09/06/18 02:00 09:56 Ancef 2 Gm Premixed Ivpb - IVPB 100 mls/hr Q8H-IV LISA Administration Pantoprazole Sodium 20 mg 09/06/18 10:00 09/08/18 09:27 Protonix - PO 20 mg DAILY LISA Administration Prednisone 5 mg 09/06/18 10:00 09/08/18 09:27 Deltasone - PO 5 mg DAILY LISA Administration Impression 1. hypokalemia 2. elevated INR 3. pulm HTN 4. CHF 5. hematuria 6. sarcoid 7. COPD 8. a-fib 9. hx of HTN 10. hyperlipidemia 11. GI bleed 12. elevated INR Plan - replace potassium - check phos level - will give a dose of spironolactone - discussed with medical team - cxr reviewed - monitor hg - GI eval - nephrostomy tube care Dr Del Angel
[2018-09-08] MEDS ORDERED: PT OWN MED DRAWER 7, Y5N ONE (15:58)
[2018-09-08 16:58] LABS: HEMATOCRIT 25.4 % (32.4-45.2); HEMOGLOBIN 8.3 GM/dL (10.7-15.3); MCH 24.8 pg (25.7-33.7); MCHC 32.9 g/dl (32.0-36.0); MEAN CELL VOLUME 75.5 fl (80-96); MEAN PLT VOLUME 8.5 fl (7.5-11.1); PLATELET COUNT 289 K/MM3 (134-434); RBC 3.36 M/mm3 (3.60-5.2); RDW 24.6 % (11.6-15.6); WHITE BLOOD COUNT 7.6 K/mm3 (4.0-10.0)
--- NOTE | 2018-09-08 17:14 | PN ---
GI Progress Note Subjective: patient admitted with SOB and uncontrolled AFIB and wa snoted to have blood in her stool yesterday, no furthe episode today - Objective Vital Signs: Vital Signs Temperature 97.3 F L 09/08/18 14:00 Pulse Rate 91 H 09/08/18 14:00 Respiratory Rate 20 09/08/18 14:00 Blood Pressure 115/70 09/08/18 14:00 O2 Sat by Pulse Oximetry (%) 97 09/08/18 09:00 Constitutional: Well Nourished Eyes: Yes: Conjunctiva Clear HENT: Yes: Atraumatic Neck: Yes: Supple Cardiovascular: Yes: Pulse Irregular Respiratory: Yes: Diminished ...Palpate: Yes: Other (bilateral nephrostomy). No: Firm/Rigid, Guarding, Hepatomegaly, Mass, Pulsatile Mass, Splenomegaly, Tenderness Labs: CBC, BMP 09/08/18 16:00 INR, PTT INR 1.58 (0.83-1.09) H 09/08/18 06:00 Problem List - Problems (1) Blood in stool Assessment/Plan: R> will need colonoscopy but patient is hiigh rsik for gi procedures at this time please recall once medically cleared and will schedule for colonoscopy Code(s): K92.1 - MELENA
[2018-09-08 17:15] LABS: ANION GAP 6 MMOL/L (8-16); BLOOD UREA NITROGEN 15 mg/dL (7-18); CALCIUM 7.9 mg/dL (8.5-10.1); CHLORIDE 95 mmol/L (98-107); CO2 40 mmol/L (21-32); CREATININE 0.7 mg/dL (0.55-1.3); GLUCOSE,RANDOM 154 mg/dL (74-106); POTASSIUM 3.5 mmol/L (3.5-5.1); SODIUM 141 mmol/L (136-145)
--- NOTE | 2018-09-08 18:19 | PN ---
Teaching Attending Note Name of Resident: Maroc A Colon ATTENDING PHYSICIAN STATEMENT I saw and evaluated the patient. I reviewed the resident's note and discussed the case with the resident. I agree with the resident's findings and plan as documented with exceptions below. SUBJECTIVE: Patient seen and examined. Reports some bloody stools today. Also some dyspnea and vague abdominal discomfort. OBJECTIVE: Vital Signs Period Temp Pulse Resp BP Sys/Garza Pulse Ox Last 24 Hr 97.2 F-98.4 F 85-112 20-20 115-136/69-87 97-98 Intake & Output 09/05/18 09/06/18 09/07/18 09/08/18 23:59 23:59 23:59 23:59 Intake Total 340 880 110 Output Total 900 525 600 250 Balance -900 -185 280 -140 Weight 150 lb 150 lb 150 lb General: lying in bed, mild tachynea, weak looking but no acute distress Chest: decreased effort, bibasilar few rales Abdomen:soft, NT, no voluntary or involuntary guarding or rigidity Extremities: no edema Active Medications Acetaminophen (Tylenol -) 650 mg PO Q4H PRN PRN Reason: PAIN Last Admin: 09/07/18 21:35 Dose: 650 mg Atenolol (Tenormin -) 25 mg PO BID [facility] Last Admin: 09/08/18 09:27 Dose: 25 mg Atorvastatin Calcium (Lipitor -) 20 mg PO HS [facility] Last Admin: 09/07/18 21:35 Dose: 20 mg Budesonide/Formoterol Fumarate (Symbicort 80/4.5mcg -) 2 puff IH BID [facility] Last Admin: 09/08/18 09:29 Dose: 2 puff Escitalopram Oxalate (Lexapro -) 10 mg PO DAILY [facility] Last Admin: 09/08/18 09:27 Dose: 10 mg Folic Acid (Folic Acid -) 1 mg PO DAILY [facility] Last Admin: 09/08/18 09:27 Dose: 1 mg Cefazolin Sodium/Dextrose (Ancef 2 Gm Premixed Ivpb -) 2 gm in 50 mls @ 100 mls /hr IVPB Q8H-IV [facility] Last Admin: 09/08/18 17:04 Dose: 100 mls/hr Pantoprazole Sodium (Protonix -) 20 mg PO DAILY [facility] Last Admin: 09/08/18 09:27 Dose: 20 mg Prednisone (Deltasone -) 5 mg PO DAILY [facility] Last Admin: 09/08/18 09:27 Dose: 5 mg Laboratory Results - last 24 hr 09/07/18 09/08/18 09/08/18 20:40 06:00 06:00 WBC 7.6 RBC 3.62 Hgb 8.9 L Hct 28.0 L MCV 77.4 L MCH 24.4 L MCHC 31.6 L RDW 24.7 H Plt Count 283 MPV 8.2 Absolute Neuts (auto) 3.9 Neutrophils % 51.2 Neutrophils % (Manual) 53.1 Band Neutrophils % 0.0 Lymphocytes % 38.8 D Lymphocytes % (Manual) 33.7 D Monocytes % 9.2 Monocytes % (Manual) 7 Eosinophils % 0.3 Eosinophils % (Manual) 0.0 Basophils % 0.5 Basophils % (Manual) 1.0 D Myelocytes % (Man) 1 Promyelocytes % (Man) 0 Blast Cells % (Manual) 0 Nucleated RBC % 1 H Metamyelocytes 1 D Hypochromia 0 Platelet Estimate Normal Polychromasia 1+ Poikilocytosis 1+ Anisocytosis 2+ Microcytosis 1+ Macrocytosis 0 Target Cells 1+ Tear Drop Cells 1+ PT with INR INR Puncture Site ABG pH ABG pCO2 at Pt Temp ABG pO2 at Pt Temp ABG HCO3 ABG O2 Sat (Measured) ABG O2 Content ABG Base Excess Junior Test Oxygen Flow Rate Sodium 141 142 Potassium 3.7 3.4 L Chloride 95 L 97 L Carbon Dioxide 35 H 40 H Anion Gap 11 5 L BUN 15 15 Creatinine 0.9 0.7 Creat Clearance w eGFR 59.94 > 60 Random Glucose 162 H 107 H Calcium 7.8 L 8.1 L Magnesium 2.0 Ferritin 1192.2 H Total Bilirubin 1.2 H AST 25 ALT < 6 L Alkaline Phosphatase 100 Troponin I 0.05 Total Protein 6.6 Albumin 2.2 L 09/08/18 09/08/18 09/08/18 06:00 11:35 16:00 WBC 7.6 RBC 3.36 L Hgb 8.3 L Hct 25.4 L MCV 75.5 L MCH 24.8 L MCHC 32.9 RDW 24.6 H Plt Count 289 MPV 8.5 Absolute Neuts (auto) Neutrophils % Neutrophils % (Manual) Band Neutrophils % Lymphocytes % Lymphocytes % (Manual) Monocytes % Monocytes % (Manual) Eosinophils % Eosinophils % (Manual) Basophils % Basophils % (Manual) Myelocytes % (Man) Promyelocytes % (Man) Blast Cells % (Manual) Nucleated RBC % Metamyelocytes Hypochromia Platelet Estimate Polychromasia Poikilocytosis Anisocytosis Microcytosis Macrocytosis Target Cells Tear Drop Cells PT with INR 18.70 H INR 1.58 H Puncture Site Left radial ABG pH 7.43 ABG pCO2 at Pt Temp 59.3 H ABG pO2 at Pt Temp 171.0 H* D ABG HCO3 39.1 H ABG O2 Sat (Measured) 99.6 H* ABG O2 Content 12.8 L ABG Base Excess 13.2 H Junior Test Positive Oxygen Flow Rate Yes Sodium Potassium Chloride Carbon Dioxide Anion Gap BUN Creatinine Creat Clearance w eGFR Random Glucose Calcium Magnesium Ferritin Total Bilirubin AST ALT Alkaline Phosphatase Troponin I Total Protein Albumin 09/08/18 16:00 WBC RBC Hgb Hct MCV MCH MCHC RDW Plt Count MPV Absolute Neuts (auto) Neutrophils % Neutrophils % (Manual) Band Neutrophils % Lymphocytes % Lymphocytes % (Manual) Monocytes % Monocytes % (Manual) Eosinophils % Eosinophils % (Manual) Basophils % Basophils % (Manual) Myelocytes % (Man) Promyelocytes % (Man) Blast Cells % (Manual) Nucleated RBC % Metamyelocytes Hypochromia Platelet Estimate Polychromasia Poikilocytosis Anisocytosis Microcytosis Macrocytosis Target Cells Tear Drop Cells PT with INR INR Puncture Site ABG pH ABG pCO2 at Pt Temp ABG pO2 at Pt Temp ABG HCO3 ABG O2 Sat (Measured) ABG O2 Content ABG Base Excess Junior Test Oxygen Flow Rate Sodium 141 Potassium 3.5 Chloride 95 L Carbon Dioxide 40 H Anion Gap 6 L BUN 15 Creatinine 0.7 Creat Clearance w eGFR > 60 Random Glucose 154 H Calcium 7.9 L Magnesium Ferritin Total Bilirubin AST ALT Alkaline Phosphatase Troponin I Total Protein Albumin Microbiology 09/05/18 18:20 Urine - Urine Clean Catch Urine Culture - Final Escherichia Coli Esbl [place] [employer] ASSESSMENT AND PLAN: 81 yof with PMHx of Chronic respiratory failure, 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 -GI bleed, ?diverticular vs haemorrhoidal vs AVM, PUD/upper GIB on differential but low suspicion. -Supratherapeutic INR, ?etiology, ?Nutritional, antibiotic mediated. -Severe hypokalemia, with EKG changes -Hypomagnesemia -Hypophosphatemia -Metabolic alkalosis, suspect contraction alkalosis, ?lasix mediated -AMS, ?toxic metabolic encephalopathy from above -Acute on chronic anemia, ?Blood loss from coagulopathy, no gross evidence of bleed currently -Recent haemorrhagic cystitis s/p Cystoscopy 08/11(complicated by hypotension requiring ICU/pressors), b/l nephrostomy tube placement 08/16, -Complicated UTI on Cefazolin (via PICC line) -Chronic respiratory failure -Oxygen (3L)/steroid dependent COPD -CAD -Pulmonary HTN -Sarcoidosis Plan: New GI bleed today. GI input appreciated. Colonscopy once medical issues improve. Monitor h/h and hemodynamics. Concerns for volume overload. Renal input noted. additional spironolactone x 1. Additional K supplementation. continue vitamin K trial. Hematology input appreciated. Urine cx with ESBL. on cefazolin. ID consult. Pulmonary input noted. Continue home steroids. DVTPPX with SCDs Dispo pending clinical improvement , plan discussed with patient and nursing.
[2018-09-08] MEDS: ATORVASTATIN CA 20 MG TABLET (FP) PO SCH (21:56)
[2018-09-09] MEDS: CEFAZOLIN 2 GM/D5W 2 GM/50 ML ML IVPB SCH ×3 (02:55→17:59)
[2018-09-09 07:45] LABS: EOS % 0.5 % (0-4.5); HEMATOCRIT 26.3 % (32.4-45.2); HEMOGLOBIN 8.1 GM/dL (10.7-15.3); LYMPH % 26.7 % (8-40); MCH 23.3 pg (25.7-33.7); MCHC 30.6 g/dl (32.0-36.0); MEAN CELL VOLUME 76.1 fl (80-96); MEAN PLT VOLUME 8.9 fl (7.5-11.1); MONO % 11.7 % (3.8-10.2); NEUT % 60.1 % (42.8-82.8); PLATELET COUNT 268 K/MM3 (134-434); RBC 3.46 M/mm3 (3.60-5.2); RDW 24.8 % (11.6-15.6); RETICULOCYTES 3.26 % (0.5-1.5); WHITE BLOOD COUNT 8.5 K/mm3 (4.0-10.0)
[2018-09-09 08:44] LABS: ALK PHOS 95 U/L (45-117); ANION GAP 8 MMOL/L (8-16); BLOOD UREA NITROGEN 14 mg/dL (7-18); CALCIUM 8.1 mg/dL (8.5-10.1); CHLORIDE 97 mmol/L (98-107); CO2 38 mmol/L (21-32); CREATININE 0.6 mg/dL (0.55-1.3); GLUCOSE,RANDOM 72 mg/dL (74-106); PHOSPHOROUS 1.9 mg/dL (2.5-4.9); POTASSIUM 3.8 mmol/L (3.5-5.1); SGOT/AST 18 U/L (15-37); SGPT/ALT < 6 U/L (13-61); SODIUM 143 mmol/L (136-145); TOT PROT 6.1 g/dl (6.4-8.2)
[2018-09-09 09:13] LABS: LDH 452 U/L (84-246)
[2018-09-09] MEDS ORDERED: NAPH,MB-DB/K PH,MBDB POWDER PACKET PO ONE (09:15)
[2018-09-09] MEDS: PANTOPRAZOLE 20 MG TABLET (FP) PO SCH (09:56)
[2018-09-09] MEDS: ESCITALOPRAM OXALATE 10 MG TABLET (FP) PO SCH (09:56)
[2018-09-09] MEDS: BUDESONIDE/FORMETEROL FUMARATE 80/4.5 mcg INHALER IH SCH ×2 (09:56→22:20)
[2018-09-09] MEDS: FOLIC ACID 1 MG TABLET (FP) PO SCH (09:56)
[2018-09-09] MEDS: ATENOLOL 25 MG TABLET (FP) PO SCH ×2 (09:57→22:20)
[2018-09-09] MEDS: predniSONE 5 MG TABLET (UD) PO SCH (09:57)
--- NOTE | 2018-09-09 10:20 | PN ---
Teaching Attending Note Name of Resident: Marco A Mike ATTENDING PHYSICIAN STATEMENT I saw and evaluated the patient. I reviewed the resident's note and discussed the case with the resident. I agree with the resident's findings and plan as documented with exceptions below. SUBJECTIVE: Patient seen and examined. Feels better today. no chest pain, dyspnea, dizziness or abdominal symptoms currently. Tolerated breakfast well. Nursing at bedside, no further dark stools or Bloody BM noted. OBJECTIVE: Vital Signs Period Temp Pulse Resp BP Sys/Garza Pulse Ox Last 24 Hr 97.3 F-98.2 F 83-91 18-20 115-127/52-76 98 Intake & Output 09/06/18 09/07/18 09/08/18 09/09/18 23:59 23:59 23:59 23:59 Intake Total 340 880 470 320 Output Total 525 600 400 180 Balance -185 280 70 140 Weight 150 lb 150 lb General: lying in bed in no acute distress. tachypnea improved Chest: poor effort, few basilar rales Abdomen:soft, NT thoroughout, ND, positive bowel sounds Extremities: trace pedal edema Active Medications Acetaminophen (Tylenol -) 650 mg PO Q4H PRN PRN Reason: PAIN Last Admin: 09/07/18 21:35 Dose: 650 mg Atenolol (Tenormin -) 25 mg PO BID [facility] Last Admin: 09/09/18 09:57 Dose: 25 mg Atorvastatin Calcium (Lipitor -) 20 mg PO HS [facility] Last Admin: 09/08/18 21:56 Dose: 20 mg Budesonide/Formoterol Fumarate (Symbicort 80/4.5mcg -) 2 puff IH BID [facility] Last Admin: 09/09/18 09:56 Dose: 2 puff Escitalopram Oxalate (Lexapro -) 10 mg PO DAILY [facility] Last Admin: 09/09/18 09:56 Dose: 10 mg Folic Acid (Folic Acid -) 1 mg PO DAILY [facility] Last Admin: 09/09/18 09:56 Dose: 1 mg Cefazolin Sodium/Dextrose (Ancef 2 Gm Premixed Ivpb -) 2 gm in 50 mls @ 100 mls /hr IVPB Q8H-IV [facility] Last Admin: 09/09/18 09:56 Dose: 100 mls/hr Pantoprazole Sodium (Protonix -) 20 mg PO DAILY [facility] Last Admin: 09/09/18 09:56 Dose: 20 mg Potassium Phos/Sodium Phos (Phos-Nak Packet -) 2 packet PO BID [facility] Stop: 09/10/18 22:01 Prednisone (Deltasone -) 5 mg PO DAILY [facility] Last Admin: 09/09/18 09:57 Dose: 5 mg Laboratory Results - last 24 hr 09/08/18 09/08/18 09/08/18 06:00 11:35 16:00 WBC 7.6 RBC 3.36 L Hgb 8.3 L Hct 25.4 L MCV 75.5 L MCH 24.8 L MCHC 32.9 RDW 24.6 H Plt Count 289 MPV 8.5 Absolute Neuts (auto) Neutrophils % Neutrophils % (Manual) 53.1 Band Neutrophils % 0.0 Lymphocytes % Lymphocytes % (Manual) 33.7 D Monocytes % Monocytes % (Manual) 7 Eosinophils % Eosinophils % (Manual) 0.0 Basophils % Basophils % (Manual) 1.0 D Myelocytes % (Man) 1 Promyelocytes % (Man) 0 Blast Cells % (Manual) 0 Nucleated RBC % Metamyelocytes 1 D Hypochromia 0 Platelet Estimate Normal Polychromasia 1+ Poikilocytosis 1+ Anisocytosis 2+ Microcytosis 1+ Macrocytosis 0 Target Cells 1+ Tear Drop Cells 1+ Retic Count Puncture Site Left radial ABG pH 7.43 ABG pCO2 at Pt Temp 59.3 H ABG pO2 at Pt Temp 171.0 H* D ABG HCO3 39.1 H ABG O2 Sat (Measured) 99.6 H* ABG O2 Content 12.8 L ABG Base Excess 13.2 H Junior Test Positive Oxygen Flow Rate Yes Sodium Potassium Chloride Carbon Dioxide Anion Gap BUN Creatinine Creat Clearance w eGFR Random Glucose Calcium Phosphorus Total Bilirubin AST ALT Alkaline Phosphatase LD Total Total Protein Albumin 09/08/18 09/09/18 09/09/18 16:00 06:05 06:05 WBC 8.5 RBC 3.46 L Hgb 8.1 L Hct 26.3 L MCV 76.1 L MCH 23.3 L MCHC 30.6 L RDW 24.8 H Plt Count 268 MPV 8.9 Absolute Neuts (auto) 5.1 Neutrophils % 60.1 Neutrophils % (Manual) Band Neutrophils % Lymphocytes % 26.7 D Lymphocytes % (Manual) Monocytes % 11.7 H Monocytes % (Manual) Eosinophils % 0.5 Eosinophils % (Manual) Basophils % 1.0 Basophils % (Manual) Myelocytes % (Man) Promyelocytes % (Man) Blast Cells % (Manual) Nucleated RBC % 2 H Metamyelocytes Hypochromia Platelet Estimate Polychromasia Poikilocytosis Anisocytosis Microcytosis Macrocytosis Target Cells Tear Drop Cells Retic Count 3.26 H D Puncture Site ABG pH ABG pCO2 at Pt Temp ABG pO2 at Pt Temp ABG HCO3 ABG O2 Sat (Measured) ABG O2 Content ABG Base Excess Junior Test Oxygen Flow Rate Sodium 141 143 Potassium 3.5 3.8 Chloride 95 L 97 L Carbon Dioxide 40 H 38 H Anion Gap 6 L 8 BUN 15 14 Creatinine 0.7 0.6 Creat Clearance w eGFR > 60 > 60 Random Glucose 154 H 72 L Calcium 7.9 L 8.1 L Phosphorus 1.9 L Total Bilirubin 1.0 AST 18 ALT < 6 L Alkaline Phosphatase 95 LD Total 452 H Total Protein 6.1 L Albumin 2.0 L Microbiology 09/05/18 18:20 Urine - Urine Clean Catch Urine Culture - Final Escherichia Coli Esbl [place] ASSESSMENT AND PLAN: 81 yof with PMHx of Chronic respiratory failure, 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 -GI bleed, ?diverticular vs haemorrhoidal vs AVM, PUD/upper GIB on differential but low suspicion. -Supratherapeutic INR, ?etiology, ?Nutritional, antibiotic mediated. -Severe hypokalemia, with EKG changes -Hypomagnesemia -Hypophosphatemia -Metabolic alkalosis, suspect contraction alkalosis, ?lasix mediated -AMS, ?toxic metabolic encephalopathy from above -Acute on chronic anemia, ?Blood loss from coagulopathy, no gross evidence of bleed currently -Recent haemorrhagic cystitis s/p Cystoscopy 08/11(complicated by hypotension requiring ICU/pressors), b/l nephrostomy tube placement 08/16, -Complicated UTI on Cefazolin (via PICC line) -Chronic respiratory failure -Oxygen (3L)/steroid dependent COPD -CAD -Pulmonary HTN -Sarcoidosis Plan: no further episodes of GIB, h/h stable, GI input appreciated. Monitor for now. Bowel regimen. Concerns for volume overload. Renal input noted. 2 doses of spironolactone. Follow up with renal. Neutrophos PO x 4 doses. s/p vitamin K trial, monitor coags, additional dosing accordingly. Hematology input appreciated. Urine cx with ESBL. on cefazolin. ID input appreciated. Last day abx today. Will need ESBL coverage if planned for urological procedure in the future. Pulmonary input noted. Continue home steroids. DVTPPX with SCDs Dispo PT eval noted. Discussed with nursing, encourage OOB, d/c planning in 48 hours back to SNF if continues to improve.
[2018-09-09] MEDS: NAPH,MB-DB/K PH,MBDB POWDER PACKET PO SCH ×2 (10:27→22:21)
[2018-09-09] MEDS: ACETAMINOPHEN 325 MG TABLET (FP) PO PRN (10:55)
--- NOTE | 2018-09-09 11:12 | PN ---
Physical Exam: SUBJECTIVE: Patient seen and examined at bedside. Pt states she feels much better than before. OBJECTIVE: Vital Signs Period Temp Pulse Resp BP Sys/Garza Pulse Ox Last 24 Hr 97.3 F-98.2 F 83-91 18-20 115-127/52-76 98 Gen: comfortable, NAD HEENT: NCAT, EOMI, moist membranes Neck: supple, no jvd noted Cardio: irregular, s1s2 heard, no mrg appreciated Pulm: cta b/l Abd: nondistended, normal bs, soft, nontender extremities: 2+ pulses Laboratory Results - last 24 hr 09/08/18 09/08/18 09/08/18 06:00 11:35 16:00 WBC 7.6 RBC 3.36 L Hgb 8.3 L Hct 25.4 L MCV 75.5 L MCH 24.8 L MCHC 32.9 RDW 24.6 H Plt Count 289 MPV 8.5 Absolute Neuts (auto) Neutrophils % Neutrophils % (Manual) 53.1 Band Neutrophils % 0.0 Lymphocytes % Lymphocytes % (Manual) 33.7 D Monocytes % Monocytes % (Manual) 7 Eosinophils % Eosinophils % (Manual) 0.0 Basophils % Basophils % (Manual) 1.0 D Myelocytes % (Man) 1 Promyelocytes % (Man) 0 Blast Cells % (Manual) 0 Nucleated RBC % Metamyelocytes 1 D Hypochromia 0 Platelet Estimate Normal Polychromasia 1+ Poikilocytosis 1+ Anisocytosis 2+ Microcytosis 1+ Macrocytosis 0 Target Cells 1+ Tear Drop Cells 1+ Retic Count Puncture Site Left radial ABG pH 7.43 ABG pCO2 at Pt Temp 59.3 H ABG pO2 at Pt Temp 171.0 H* D ABG HCO3 39.1 H ABG O2 Sat (Measured) 99.6 H* ABG O2 Content 12.8 L ABG Base Excess 13.2 H Junior Test Positive Oxygen Flow Rate Yes Sodium Potassium Chloride Carbon Dioxide Anion Gap BUN Creatinine Creat Clearance w eGFR Random Glucose Calcium Phosphorus Total Bilirubin AST ALT Alkaline Phosphatase LD Total Total Protein Albumin 09/08/18 09/09/18 09/09/18 16:00 06:05 06:05 WBC 8.5 RBC 3.46 L Hgb 8.1 L Hct 26.3 L MCV 76.1 L MCH 23.3 L MCHC 30.6 L RDW 24.8 H Plt Count 268 MPV 8.9 Absolute Neuts (auto) 5.1 Neutrophils % 60.1 Neutrophils % (Manual) Band Neutrophils % Lymphocytes % 26.7 D Lymphocytes % (Manual) Monocytes % 11.7 H Monocytes % (Manual) Eosinophils % 0.5 Eosinophils % (Manual) Basophils % 1.0 Basophils % (Manual) Myelocytes % (Man) Promyelocytes % (Man) Blast Cells % (Manual) Nucleated RBC % 2 H Metamyelocytes Hypochromia Platelet Estimate Polychromasia Poikilocytosis Anisocytosis Microcytosis Macrocytosis Target Cells Tear Drop Cells Retic Count 3.26 H D Puncture Site ABG pH ABG pCO2 at Pt Temp ABG pO2 at Pt Temp ABG HCO3 ABG O2 Sat (Measured) ABG O2 Content ABG Base Excess Junior Test Oxygen Flow Rate Sodium 141 143 Potassium 3.5 3.8 Chloride 95 L 97 L Carbon Dioxide 40 H 38 H Anion Gap 6 L 8 BUN 15 14 Creatinine 0.7 0.6 Creat Clearance w eGFR > 60 > 60 Random Glucose 154 H 72 L Calcium 7.9 L 8.1 L Phosphorus 1.9 L Total Bilirubin 1.0 AST 18 ALT < 6 L Alkaline Phosphatase 95 LD Total 452 H Total Protein 6.1 L Albumin 2.0 L Active Medications Generic Name Dose Route Start Last Admin Trade Name Freq PRN Reason Stop Dose Admin Acetaminophen 650 mg 09/07/18 19:19 09/07/18 21:35 Tylenol - PO 650 mg Q4H PRN Administration PAIN Atenolol 25 mg 09/06/18 10:00 09/09/18 09:57 Tenormin - PO 25 mg BID LISA Administration Atorvastatin Calcium 20 mg 09/06/18 22:00 09/08/18 21:56 Lipitor - PO 20 mg HS LISA Administration Budesonide/Formoterol Fumarate 2 puff 09/06/18 10:00 09/09/18 09:56 Symbicort 80/4.5mcg - IH 2 puff BID LISA Administration Escitalopram Oxalate 10 mg 09/06/18 10:00 09/09/18 09:56 Lexapro - PO 10 mg DAILY LISA Administration Folic Acid 1 mg 09/06/18 10:00 09/09/18 09:56 Folic Acid - PO 1 mg DAILY LISA Administration Cefazolin Sodium/Dextrose 2 gm in 50 mls @ 100 mls/hr 09/06/18 02:00 09:56 Ancef 2 Gm Premixed Ivpb - IVPB 100 mls/hr Q8H-IV LISA Administration Pantoprazole Sodium 20 mg 09/06/18 10:00 09/09/18 09:56 Protonix - PO 20 mg DAILY LISA Administration Potassium Phos/Sodium Phos 2 packet 09/09/18 10:00 09/09/18 10:27 Phos-Nak Packet - PO 09/10/18 22:01 2 packet BID LISA Administration Prednisone 5 mg 09/06/18 10:00 09/09/18 09:57 Deltasone - PO 5 mg DAILY LISA Administration ASSESSMENT/PLAN: 81 yof with PMHx of Chronic respiratory failure, 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 #GI bleed -? diverticular vs hemorrhois vs AVM -GI on board. Will need scope once acute illness is resolved. Likely out pt -single episode. Will monitor for recurrence #elevated INR -INR - on admission -unclear etiology -Vit K given IM -INR decreased to 1.5 -Heme onc on board #Severe hypokalemia, Hypomagnesemia, Hypophosphatemia -T wave flattening on EKG -replete lytes #Metabolic alkalosis -?suspect volume contraction -replenishing fluids #AMS -likely 2/2 metabolic encephalopathy -resolved #Acute on chronic anemia -single episode BRBPR. no gross evidence of bleed currently -Retic 3.26, retic index 1% - suggestive of inadequate bone marrow response -LDH 452 - suggestive of hemolysis, however, bili not elevated -Fe studies pending, Ferritin 1192 -Heme onc on board #Recent haemorrhagic cystitis -Cystoscopy 08/11 (complicated by hypotension requiring ICU/pressors) -b/l nephrostomy tube placement 08/16. Draining well at this time -f/u with out pt urologist #Complicated UTI on Cefazolin (via PICC line) -UCx pos for ESBL -ID on board - rec completing cefazolin course. ESBL likely colonization. Pt will need coverage for further urological procedures #Chronic respiratory failure / COPD -c/w O2 at 3L -prednisone -Symbicort #CAD -atenolol -lipitor #Pulmonary HTN -atenolol -pulm on board #Sarcoidosis -pulm on board -chronic and stable #FEN -not on fluids -hypophosphatemia - repleting -renal diet #PPx -hold ac in setting of recent GIB #Dispo -tele Marco A Mike MD PGY-2 IM Visit type - Emergency Visit Emergency Visit: No - New Patient This patient is new to me today: No - Critical Care Critical Care patient: No
[2018-09-09 13:33] LABS: INR 1.46 (0.83-1.09); PROTHROMBIN TIME (PATIENT) 17.3 SEC (9.7-13.0)
[2018-09-09 13:54] LABS: MACROCYTOSIS 1+; OVALOCYTE FEW; PLATELET ESTIMATE ADEQUATE
--- NOTE | 2018-09-09 14:19 | PN ---
Progress Note (short form) - Note Progress Note: PULMONARY States breathing is the same. Occasional cough. Vital Signs Period Temp Pulse Resp BP Sys/Garza Pulse Ox Last 24 Hr 97.3 F-98.2 F 83-91 18-20 120-139/52-79 96-98 Gen: mildly tachypneic at rest Heart: RRR Lung: scattered rhonchi Abd: soft, nontender Ext: no edema CBC, BMP 09/09/18 06:05 09/09/18 06:05 Active Medications Acetaminophen (Tylenol -) 650 mg PO Q4H PRN PRN Reason: PAIN Last Admin: 09/09/18 10:55 Dose: 650 mg Atenolol (Tenormin -) 25 mg PO BID [facility] Last Admin: 09/09/18 09:57 Dose: 25 mg Atorvastatin Calcium (Lipitor -) 20 mg PO HS [facility] Last Admin: 09/08/18 21:56 Dose: 20 mg Budesonide/Formoterol Fumarate (Symbicort 80/4.5mcg -) 2 puff IH BID [facility] Last Admin: 09/09/18 09:56 Dose: 2 puff Escitalopram Oxalate (Lexapro -) 10 mg PO DAILY [facility] Last Admin: 09/09/18 09:56 Dose: 10 mg Folic Acid (Folic Acid -) 1 mg PO DAILY [facility] Last Admin: 09/09/18 09:56 Dose: 1 mg Cefazolin Sodium/Dextrose (Ancef 2 Gm Premixed Ivpb -) 2 gm in 50 mls @ 100 mls /hr IVPB Q8H-IV [facility] Last Admin: 09/09/18 09:56 Dose: 100 mls/hr Pantoprazole Sodium (Protonix -) 20 mg PO DAILY [facility] Last Admin: 09/09/18 09:56 Dose: 20 mg Potassium Phos/Sodium Phos (Phos-Nak Packet -) 2 packet PO BID [facility] Stop: 09/10/18 22:01 Last Admin: 09/09/18 10:27 Dose: 2 packet Prednisone (Deltasone -) 5 mg PO DAILY [facility] Last Admin: 09/09/18 09:57 Dose: 5 mg A/P Chronic Hypoxic and Hypercapneic Respiratory Failure Sarcoidosis COPD Pulmonary HTN Atrial Fibrillation Recent MSSA Sepsis Bilateral Nephrostomy Tubes - continue antibiotics - inhaled bronchodilators - O2 to keep SpO2 >90% - BiPAP as needed - rate control - consider resuming anticoagulation
[2018-09-09] MEDS: ATORVASTATIN CA 20 MG TABLET (FP) PO SCH (22:20)
[2018-09-10] MEDS: CEFAZOLIN 2 GM/D5W 2 GM/50 ML ML IVPB SCH ×3 (02:42→18:12)
[2018-09-10 08:09] LABS: INR 1.35 (0.83-1.09)
[2018-09-10] MEDS ORDERED: PT OWN MED DRAWER 7, Y5N ONE (10:06)
[2018-09-10] MEDS: BUDESONIDE/FORMETEROL FUMARATE 80/4.5 mcg INHALER IH SCH ×2 (10:10→21:58)
[2018-09-10] MEDS: ATENOLOL 25 MG TABLET (FP) PO SCH ×2 (10:10→21:57)
[2018-09-10] MEDS: PANTOPRAZOLE 20 MG TABLET (FP) PO SCH (10:10)
[2018-09-10] MEDS: ESCITALOPRAM OXALATE 10 MG TABLET (FP) PO SCH (10:10)
[2018-09-10] MEDS: predniSONE 5 MG TABLET (UD) PO SCH (10:10)
[2018-09-10] MEDS: FOLIC ACID 1 MG TABLET (FP) PO SCH (10:10)
[2018-09-10] MEDS: NAPH,MB-DB/K PH,MBDB POWDER PACKET PO SCH ×2 (10:10→21:56)
[2018-09-10 10:55] LABS: BASO % 0.5 % (0-2.0); EOS % 0.7 % (0-4.5); HEMATOCRIT 27.2 % (32.4-45.2); HEMOGLOBIN 8.7 GM/dL (10.7-15.3); LYMPH % 20.9 % (8-40); MCH 24.4 pg (25.7-33.7); MCHC 32.1 g/dl (32.0-36.0); MEAN CELL VOLUME 76.2 fl (80-96); MEAN PLT VOLUME 8.7 fl (7.5-11.1); MONO % 12.5 % (3.8-10.2); NEUT % 65.4 % (42.8-82.8); PLATELET COUNT 279 K/MM3 (134-434); RBC 3.57 M/mm3 (3.60-5.2); RDW 24.2 % (11.6-15.6); WHITE BLOOD COUNT 9.8 K/mm3 (4.0-10.0)
[2018-09-10 11:23] LABS: ALBUMIN 1.8 g/dl (3.4-5.0); ALK PHOS 100 U/L (45-117); ANION GAP 7 MMOL/L (8-16); BLOOD UREA NITROGEN 14 mg/dL (7-18); CHLORIDE 96 mmol/L (98-107); CO2 39 mmol/L (21-32); CREATININE 0.6 mg/dL (0.55-1.3); GLUCOSE,RANDOM 104 mg/dL (74-106); MAGNESIUM 1.8 mg/dL (1.8-2.4); PHOSPHOROUS 2.8 mg/dL (2.5-4.9); POTASSIUM 3.8 mmol/L (3.5-5.1); SGOT/AST 17 U/L (15-37); SGPT/ALT < 6 U/L (13-61); SODIUM 142 mmol/L (136-145)
--- NOTE | 2018-09-10 12:53 | PN ---
Progress Note (short form) - Note Progress Note: UROLOGY NOTE 81 Y/O Male patient with history of COPD, HT, A FIB, Hematuria and obstructive uropaqthy S/P Bilateral PCN, draining clear urine, S.Creat 0.6 WBC 9.8 HB 8.7 Renal U/S bilateral pcn , NO hydro Plan keep PCN and will follow up
[2018-09-10 13:07] LABS: PLATELET ESTIMATE ADEQUATE
--- NOTE | 2018-09-10 13:36 | PN ---
Physical Exam: SUBJECTIVE: Patient seen and examined, feels better, no new complaints. eating well. OBJECTIVE: Vital Signs Period Temp Pulse Resp BP Sys/Garza Pulse Ox Last 24 Hr 98 F-98.3 F 74-90 16-20 116-133/60-83 97 GENERAL: sleeping comfortably but arousable, no tachypnea or use of accessory muscles of respiration currently Chest: decreased effort with few rales, no wheezing abdomen: soft, nT, Nd, positive bowel sounds,nephrostoy tubes draining clear urine Extremities; improved trace edema Laboratory Results - last 24 hr 09/09/18 09/09/18 09/10/18 06:05 09:30 05:25 WBC RBC Hgb Hct MCV MCH MCHC RDW Plt Count MPV Absolute Neuts (auto) Total Counted 100 Neutrophils % Neutrophils % (Manual) 66.0 Band Neutrophils % 1.0 Lymphocytes % Lymphocytes % (Manual) 21.0 D Monocytes % Monocytes % (Manual) 7 Eosinophils % Eosinophils % (Manual) 2.0 D Basophils % Myelocytes % (Man) 3 H Nucleated RBC % Hypochromia 1+ Platelet Estimate Adequate Platelet Comment Few large platelets Polychromasia 2+ Macrocytosis 1+ Ovalocytes Few PT with INR 17.30 H 16.00 H INR 1.46 H 1.35 H Sodium Potassium Chloride Carbon Dioxide Anion Gap BUN Creatinine Creat Clearance w eGFR Random Glucose Calcium Phosphorus Magnesium Total Bilirubin AST ALT Alkaline Phosphatase Total Protein Albumin 09/10/18 09/10/18 10:15 10:15 WBC 9.8 RBC 3.57 L Hgb 8.7 L Hct 27.2 L MCV 76.2 L MCH 24.4 L MCHC 32.1 RDW 24.2 H Plt Count 279 MPV 8.7 Absolute Neuts (auto) 6.4 Total Counted 100 Neutrophils % 65.4 Neutrophils % (Manual) 64.0 Band Neutrophils % 2.0 Lymphocytes % 20.9 D Lymphocytes % (Manual) 19.0 Monocytes % 12.5 H Monocytes % (Manual) 6 Eosinophils % 0.7 Eosinophils % (Manual) 4.0 D Basophils % 0.5 Myelocytes % (Man) 5 H Nucleated RBC % 2 H Hypochromia Platelet Estimate Adequate Platelet Comment Polychromasia Macrocytosis Ovalocytes PT with INR INR Sodium 142 Potassium 3.8 Chloride 96 L Carbon Dioxide 39 H Anion Gap 7 L BUN 14 Creatinine 0.6 Creat Clearance w eGFR > 60 Random Glucose 104 Calcium 8.0 L Phosphorus 2.8 Magnesium 1.8 Total Bilirubin 1.0 AST 17 ALT < 6 L Alkaline Phosphatase 100 Total Protein 6.0 L Albumin 1.8 L Active Medications Generic Name Dose Route Start Last Admin Trade Name Freq PRN Reason Stop Dose Admin Acetaminophen 650 mg 09/07/18 19:19 09/09/18 10:55 Tylenol - PO 650 mg Q4H PRN Administration PAIN Atenolol 25 mg 09/06/18 10:00 09/10/18 10:10 Tenormin - PO 25 mg BID LISA Administration Atorvastatin Calcium 20 mg 09/06/18 22:00 09/09/18 22:20 Lipitor - PO 20 mg HS LISA Administration Budesonide/Formoterol Fumarate 2 puff 09/06/18 10:00 09/10/18 10:10 Symbicort 80/4.5mcg - IH 2 puff BID LISA Administration Escitalopram Oxalate 10 mg 09/06/18 10:00 09/10/18 10:10 Lexapro - PO 10 mg DAILY LISA Administration Folic Acid 1 mg 09/06/18 10:00 09/10/18 10:10 Folic Acid - PO 1 mg DAILY LISA Administration Cefazolin Sodium/Dextrose 2 gm in 50 mls @ 100 mls/hr 09/06/18 02:00 10:09 Ancef 2 Gm Premixed Ivpb - IVPB 100 mls/hr Q8H-IV LISA Administration Magnesium Oxide 800 mg 09/10/18 13:45 Mag-Ox - PO 09/12/18 10:01 DAILY LISA Pantoprazole Sodium 20 mg 09/06/18 10:00 09/10/18 10:10 Protonix - PO 20 mg DAILY LISA Administration Potassium Phos/Sodium Phos 2 packet 09/09/18 10:00 09/10/18 10:10 Phos-Nak Packet - PO 09/10/18 22:01 2 packet BID LISA Administration Prednisone 5 mg 09/06/18 10:00 09/10/18 10:10 Deltasone - PO 5 mg DAILY LISA Administration ASSESSMENT/PLAN: 81 yof with PMHx of Chronic respiratory failure, 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 -GI bleed, ?diverticular vs haemorrhoidal vs AVM, PUD/upper GIB on differential but low suspicion. -Supratherapeutic INR, ?etiology, ?Nutritional, antibiotic mediated. -Severe hypokalemia, with EKG changes -Hypomagnesemia -Hypophosphatemia -Metabolic alkalosis, suspect contraction alkalosis, ?lasix mediated -AMS, ?toxic metabolic encephalopathy from above -Acute on chronic anemia, ?Blood loss from coagulopathy, no gross evidence of bleed currently -Recent haemorrhagic cystitis s/p Cystoscopy 08/11(complicated by hypotension requiring ICU/pressors), b/l nephrostomy tube placement 08/16, -Complicated UTI on Cefazolin (via PICC line) -Chronic respiratory failure -Oxygen (3L)/steroid dependent COPD -CAD -Pulmonary HTN -Sarcoidosis Plan: no further episodes of GIB, h/h stable, GI input appreciated. Monitor for now. Bowel regimen. Concerns for volume overload. Renal input noted. 2 doses of spironolactone. Additional PO mg x 3 doses. s/p vitamin K trial, monitor coags, additional dosing accordingly. Hematology input appreciated. Urine cx with ESBL. on cefazolin. ID input appreciated. Last day abx today. Will need ESBL coverage if planned for urological procedure in the future. Pulmonary input noted. Continue home steroids. DVTPPX with SCDs Dispo PT eval noted. recommend SNF. Discussed with classification case manager. Anticipate d/c in 24 hours if continues to improve and disposition arranged. Plan discussed with patient, nursing and classification case manager. Visit type - Emergency Visit Emergency Visit: Yes ED Registration Date: 09/05/18 Care time: The patient presented to the Emergency Department on the above date and was hospitalized for further evaluation of their emergent condition. - New Patient This patient is new to me today: No - Critical Care Critical Care patient: No - Discharge Referral Referred to [facility] No
[2018-09-10] MEDS: MAGNESIUM OXIDE 400 MG TABLET (FP) PO SCH (13:51)
--- NOTE | 2018-09-10 13:55 | PN ---
Progress Note (short form) - Note Progress Note: PULMONARY Denies shortness of breath or chest pain. Vital Signs Period Temp Pulse Resp BP Sys/Garza Pulse Ox Last 24 Hr 98 F-98.3 F 74-90 16-20 116-133/60-83 97 Gen: mildly tachypneic at rest Heart: RRR Lung: scattered rhonchi Abd: soft, nontender Ext: no edema CBC, BMP 09/10/18 10:15 09/10/18 10:15 Active Medications Acetaminophen (Tylenol -) 650 mg PO Q4H PRN PRN Reason: PAIN Last Admin: 09/09/18 10:55 Dose: 650 mg Atenolol (Tenormin -) 25 mg PO BID [facility] Last Admin: 09/10/18 10:10 Dose: 25 mg Atorvastatin Calcium (Lipitor -) 20 mg PO HS [facility] Last Admin: 09/09/18 22:20 Dose: 20 mg Budesonide/Formoterol Fumarate (Symbicort 80/4.5mcg -) 2 puff IH BID [facility] Last Admin: 09/10/18 10:10 Dose: 2 puff Escitalopram Oxalate (Lexapro -) 10 mg PO DAILY [facility] Last Admin: 09/10/18 10:10 Dose: 10 mg Folic Acid (Folic Acid -) 1 mg PO DAILY [facility] Last Admin: 09/10/18 10:10 Dose: 1 mg Cefazolin Sodium/Dextrose (Ancef 2 Gm Premixed Ivpb -) 2 gm in 50 mls @ 100 mls /hr IVPB Q8H-IV [facility] Last Admin: 09/10/18 10:09 Dose: 100 mls/hr Magnesium Oxide (Mag-Ox -) 800 mg PO DAILY [facility] Stop: 09/12/18 10:01 Last Admin: 09/10/18 13:51 Dose: 800 mg Pantoprazole Sodium (Protonix -) 20 mg PO DAILY [facility] Last Admin: 09/10/18 10:10 Dose: 20 mg Potassium Phos/Sodium Phos (Phos-Nak Packet -) 2 packet PO BID [facility] Stop: 09/10/18 22:01 Last Admin: 09/10/18 10:10 Dose: 2 packet Prednisone (Deltasone -) 5 mg PO DAILY [facility] Last Admin: 09/10/18 10:10 Dose: 5 mg A/P Chronic Hypoxic and Hypercapneic Respiratory Failure Sarcoidosis COPD Pulmonary HTN Atrial Fibrillation Recent MSSA Sepsis Bilateral Nephrostomy Tubes - continue antibiotics - inhaled bronchodilators - O2 to keep SpO2 >90% - BiPAP as needed - rate control
[2018-09-10] MEDS: ATORVASTATIN CA 20 MG TABLET (FP) PO SCH (21:56)
[2018-09-10] MEDS: ACETAMINOPHEN 325 MG TABLET (FP) PO PRN (21:57)
[2018-09-11] MEDS: CEFAZOLIN 2 GM/D5W 2 GM/50 ML ML IVPB SCH ×2 (02:10→09:52)
[2018-09-11 06:25] VITALS: BP 111/58; PULSE 88; TEMP 98
[2018-09-11 06:58] LABS: HEMATOCRIT 25.1 % (32.4-45.2); HEMOGLOBIN 7.7 GM/dL (10.7-15.3); MCH 23.3 pg (25.7-33.7); MCHC 30.5 g/dl (32.0-36.0); MEAN CELL VOLUME 76.5 fl (80-96); PLATELET COUNT 236 K/MM3 (134-434); RBC 3.28 M/mm3 (3.60-5.2); RDW 24.4 % (11.6-15.6); WHITE BLOOD COUNT 11.2 K/mm3 (4.0-10.0)
[2018-09-11 07:35] LABS: INR 1.32 (0.83-1.09); PROTHROMBIN TIME (PATIENT) 15.6 SEC (9.7-13.0)
[2018-09-11 07:46] LABS: ANION GAP 5 MMOL/L (8-16); BLOOD UREA NITROGEN 14 mg/dL (7-18); CHLORIDE 93 mmol/L (98-107); CO2 39 mmol/L (21-32); CREATININE 0.5 mg/dL (0.55-1.3); GLUCOSE,RANDOM 91 mg/dL (74-106); MAGNESIUM 1.9 mg/dL (1.8-2.4); PHOSPHOROUS 3.1 mg/dL (2.5-4.9); POTASSIUM 3.9 mmol/L (3.5-5.1); SODIUM 137 mmol/L (136-145)
[2018-09-11] MEDS ORDERED: PT OWN MED DRAWER 7, Y5N ONE (09:44)
[2018-09-11] MEDS: ESCITALOPRAM OXALATE 10 MG TABLET (FP) PO SCH (09:52)
[2018-09-11] MEDS: MAGNESIUM OXIDE 400 MG TABLET (FP) PO SCH (09:52)
[2018-09-11] MEDS: predniSONE 5 MG TABLET (UD) PO SCH (09:52)
[2018-09-11] MEDS: BUDESONIDE/FORMETEROL FUMARATE 80/4.5 mcg INHALER IH SCH (09:52)
[2018-09-11] MEDS: PANTOPRAZOLE 20 MG TABLET (FP) PO SCH (09:52)
[2018-09-11] MEDS: FOLIC ACID 1 MG TABLET (FP) PO SCH (09:52)
[2018-09-11] MEDS: ATENOLOL 25 MG TABLET (FP) PO SCH (09:57)
--- NOTE | 2018-09-11 11:07 | PN ---
Progress Note, Physician History of Present Illness: PULMONARY ALERT,FEELING BETTER TODAY,LESS DYSPNEIC - Current Medication List Current Medications: Active Medications Acetaminophen (Tylenol -) 650 mg PO Q4H PRN PRN Reason: PAIN Last Admin: 09/10/18 21:57 Dose: 650 mg Atenolol (Tenormin -) 25 mg PO BID [facility] Last Admin: 09/11/18 09:57 Dose: 25 mg Atorvastatin Calcium (Lipitor -) 20 mg PO HS [facility] Last Admin: 09/10/18 21:56 Dose: 20 mg Budesonide/Formoterol Fumarate (Symbicort 80/4.5mcg -) 2 puff IH BID [facility] Last Admin: 09/11/18 09:52 Dose: 2 puff Escitalopram Oxalate (Lexapro -) 10 mg PO DAILY [facility] Last Admin: 09/11/18 09:52 Dose: 10 mg Folic Acid (Folic Acid -) 1 mg PO DAILY [facility] Last Admin: 09/11/18 09:52 Dose: 1 mg Cefazolin Sodium/Dextrose (Ancef 2 Gm Premixed Ivpb -) 2 gm in 50 mls @ 100 mls /hr IVPB Q8H-IV [facility] Last Admin: 09/11/18 09:52 Dose: 100 mls/hr Magnesium Oxide (Mag-Ox -) 800 mg PO DAILY [facility] Stop: 09/12/18 10:01 Last Admin: 09/11/18 09:52 Dose: 800 mg Pantoprazole Sodium (Protonix -) 20 mg PO DAILY [facility] Last Admin: 09/11/18 09:52 Dose: 20 mg Prednisone (Deltasone -) 5 mg PO DAILY [facility] Last Admin: 09/11/18 09:52 Dose: 5 mg - Objective Vital Signs: Vital Signs Temperature 98.0 F 09/11/18 06:24 Pulse Rate 88 09/11/18 06:24 Respiratory Rate 20 09/11/18 06:24 Blood Pressure 111/58 L 09/11/18 06:24 O2 Sat by Pulse Oximetry (%) 97 09/10/18 21:00 Constitutional: Yes: Well Nourished, Calm Eyes: Yes: WNL HENT: Yes: WNL Neck: Yes: WNL Cardiovascular: Yes: Pulse Irregular, S1, S2 Respiratory: Yes: Rales (BBASILAR RALES) Gastrointestinal: Yes: Normal Bowel Sounds, Soft Extremities: Yes: WNL Edema: No Labs: CBC, BMP 09/11/18 05:30 09/11/18 05:30 INR, PTT INR 1.32 (0.83-1.09) H 09/11/18 05:30 Problem List - Problems (1) Supratherapeutic INR Code(s): R79.1 - ABNORMAL COAGULATION PROFILE (2) Elevated INR Code(s): R79.1 - ABNORMAL COAGULATION PROFILE (3) Hypokalemia Code(s): E87.6 - HYPOKALEMIA (4) Acute and chronic respiratory failure with hypoxia Code(s): J96.21 - ACUTE AND CHRONIC RESPIRATORY FAILURE WITH HYPOXIA (5) Atrial fibrillation Code(s): I48.91 - UNSPECIFIED ATRIAL FIBRILLATION Qualifiers: Atrial fibrillation type: permanent Qualified Code(s): I48.2 - Chronic atrial fibrillation (6) Chronic respiratory failure with hypoxia Code(s): J96.11 - CHRONIC RESPIRATORY FAILURE WITH HYPOXIA (7) Pulmonary HTN Code(s): I27.20 - PULMONARY HYPERTENSION, UNSPECIFIED (8) Sarcoidosis Code(s): D86.9 - SARCOIDOSIS, UNSPECIFIED (9) Acute on chronic respiratory failure with hypoxia and hypercapnia Code(s): J96.21 - ACUTE AND CHRONIC RESPIRATORY FAILURE WITH HYPOXIA; J96.22 - ACUTE AND CHRONIC RESPIRATORY FAILURE WITH HYPERCAPNIA Assessment/Plan IMP ACUTE ON CHRONIC HYPOXEMIC/HYPERCAPNEIC RESPIRATORY FAILURE ADVANCED COPD O2 DEPENDENT SARCOID PULMONARY HYPERTENSION CHF ALTERED MENTAL STATUS SEVERE HYPOKALEMIA SUPRA-THERAPEUTIC INR S/P FFP AFIB S/P MSSA SEPSIS HEMATURIA HYPOKALEMIC/ HYPOCHLOREMIC METABOLIC ALKALOSIS PLAN O2 INHALED BRONCHODILATORS PREDNISONE MONITOR LYTES MONITOR INR DR ALBERT Problem List - Problems (1) Supratherapeutic INR Code(s): R79.1 - ABNORMAL COAGULATION PROFILE (2) Elevated INR Code(s): R79.1 - ABNORMAL COAGULATION PROFILE (3) Hypokalemia Code(s): E87.6 - HYPOKALEMIA (4) Acute and chronic respiratory failure with hypoxia Code(s): J96.21 - ACUTE AND CHRONIC RESPIRATORY FAILURE WITH HYPOXIA (5) Atrial fibrillation Code(s): I48.91 - UNSPECIFIED ATRIAL FIBRILLATION Qualifiers: Atrial fibrillation type: permanent Qualified Code(s): I48.2 - Chronic atrial fibrillation (6) Chronic respiratory failure with hypoxia Code(s): J96.11 - CHRONIC RESPIRATORY FAILURE WITH HYPOXIA (7) Pulmonary HTN Code(s): I27.20 - PULMONARY HYPERTENSION, UNSPECIFIED (8) Sarcoidosis Code(s): D86.9 - SARCOIDOSIS, UNSPECIFIED (9) Acute on chronic respiratory failure with hypoxia and hypercapnia Code(s): J96.21 - ACUTE AND CHRONIC RESPIRATORY FAILURE WITH HYPOXIA; J96.22 - ACUTE AND CHRONIC RESPIRATORY FAILURE WITH HYPERCAPNIA
[2018-09-11] MEDS ORDERED: SPIRONOLACTONE 25 MG TABLET (FP) PO ONE (12:25)
--- NOTE | 2018-09-11 12:37 | PN ---
Teaching Attending Note Name of Resident: Marco A Colon ATTENDING PHYSICIAN STATEMENT I saw and evaluated the patient. I reviewed the resident's note and discussed the case with the resident. I agree with the resident's findings and plan as documented with exceptions below. SUBJECTIVE: Patient seen and examined. Overall unchanged, no further dark or bloody stools, no other complaints. OBJECTIVE: Vital Signs Period Temp Pulse Resp BP Sys/Garza Pulse Ox Last 24 Hr 97.2 F-98.8 F 83-96 18-22 100-111/49-60 95-97 Intake & Output 09/08/18 09/09/18 09/10/18 09/11/18 23:59 23:59 23:59 23:59 Intake Total 749 876 7867 100 Output Total 400 390 320 200 Balance 70 310 1000 -100 Weight 162 lb 3.2 oz General: sitting in bed in no acute distress Chest: fine basilar rales, good air entry Abdomen:soft, obese, NT Extremities; 1+ pedal edema Active Medications Acetaminophen (Tylenol -) 650 mg PO Q4H PRN PRN Reason: PAIN Last Admin: 09/10/18 21:57 Dose: 650 mg Atenolol (Tenormin -) 25 mg PO BID [facility] Last Admin: 09/11/18 09:57 Dose: 25 mg Atorvastatin Calcium (Lipitor -) 20 mg PO HS [facility] Last Admin: 09/10/18 21:56 Dose: 20 mg Budesonide/Formoterol Fumarate (Symbicort 80/4.5mcg -) 2 puff IH BID [facility] Last Admin: 09/11/18 09:52 Dose: 2 puff Escitalopram Oxalate (Lexapro -) 10 mg PO DAILY [facility] Last Admin: 09/11/18 09:52 Dose: 10 mg Folic Acid (Folic Acid -) 1 mg PO DAILY [facility] Last Admin: 09/11/18 09:52 Dose: 1 mg Cefazolin Sodium/Dextrose (Ancef 2 Gm Premixed Ivpb -) 2 gm in 50 mls @ 100 mls /hr IVPB Q8H-IV LISA Last Admin: 09/11/18 09:52 Dose: 100 mls/hr Magnesium Oxide (Mag-Ox -) 800 mg PO DAILY [facility] Stop: 09/12/18 10:01 Last Admin: 09/11/18 09:52 Dose: 800 mg Pantoprazole Sodium (Protonix -) 20 mg PO DAILY [facility] Last Admin: 09/11/18 09:52 Dose: 20 mg Prednisone (Deltasone -) 5 mg PO DAILY [facility] Last Admin: 09/11/18 09:52 Dose: 5 mg Laboratory Results - last 24 hr 09/10/18 09/11/18 09/11/18 10:15 05:30 05:30 WBC 11.2 H RBC 3.28 L Hgb 7.7 L Hct 25.1 L MCV 76.5 L MCH 23.3 L MCHC 30.5 L RDW 24.4 H Plt Count 236 MPV 9.0 Total Counted 100 Neutrophils % (Manual) 64.0 Band Neutrophils % 2.0 Lymphocytes % (Manual) 19.0 Monocytes % (Manual) 6 Eosinophils % (Manual) 4.0 D Myelocytes % (Man) 5 H Nucleated RBC % 2 H Platelet Estimate Adequate PT with INR 15.60 H INR 1.32 H Sodium Potassium Chloride Carbon Dioxide Anion Gap BUN Creatinine Creat Clearance w eGFR Random Glucose Calcium Phosphorus Magnesium 09/11/18 05:30 WBC RBC Hgb Hct MCV MCH MCHC RDW Plt Count MPV Total Counted Neutrophils % (Manual) Band Neutrophils % Lymphocytes % (Manual) Monocytes % (Manual) Eosinophils % (Manual) Myelocytes % (Man) Nucleated RBC % Platelet Estimate PT with INR INR Sodium 137 Potassium 3.9 Chloride 93 L Carbon Dioxide 39 H Anion Gap 5 L BUN 14 Creatinine 0.5 L Creat Clearance w eGFR > 60 Random Glucose 91 Calcium 8.0 L Phosphorus 3.1 Magnesium 1.9 Microbiology 09/08/18 19:20 Blood - Peripheral Venous Blood Culture - Preliminary NO GROWTH OBTAINED AFTER 48 HOURS, INCUBATION TO CONTINUE FOR 3 DAYS. 09/08/18 19:10 Blood - Peripheral Venous Blood Culture - Preliminary NO GROWTH OBTAINED AFTER 48 HOURS, INCUBATION TO CONTINUE FOR 3 DAYS. 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 -GI bleed, ?diverticular vs haemorrhoidal vs AVM, PUD/upper GIB on differential but low suspicion. -Supratherapeutic INR, ?etiology, ?Nutritional, antibiotic mediated. -Severe hypokalemia, with EKG changes -Hypomagnesemia -Hypophosphatemia -Metabolic alkalosis, suspect contraction alkalosis, ?lasix mediated -AMS, ?toxic metabolic encephalopathy from above -Acute on chronic anemia, ?Blood loss from coagulopathy, no gross evidence of bleed currently -Recent haemorrhagic cystitis s/p Cystoscopy 08/11(complicated by hypotension requiring ICU/pressors), b/l nephrostomy tube placement 08/16, -Complicated UTI on Cefazolin (via PICC line) -Chronic respiratory failure -Oxygen (3L)/steroid dependent COPD -CAD -Pulmonary HTN -Sarcoidosis Plan: No further episodes of GIB, GI input noted. H/h noted, overall around the same range since admission. No gross evidence of bleed or hemodynamic instability. Repeat CBC for now. Needs diuresis, would avoid loop diuretics for now. Spironolactone 25 mg PO today. Will need close electrolyte and renal function monitoring at the SNF and close nephrology follow up. s/p vitamin K trial, monitor coags, additional dosing accordingly. Hematology input appreciated. Urine cx with ESBL. on cefazolin. Discussed with Dr. Garcia, completed cefazolin course. d/c abx, d/c PICC Will need ESBL coverage if planned for urological procedure in the future. Pulmonary input noted. Continue home steroids. DVTPPX with SCDs Dispo PT eval noted. recommend SNF. Discussed with case maker. Anticipate plan for d/c to SNF today pending repeat CBC, if no concerns. Plan discussed with patient in detail, all questions answered.
--- NOTE | 2018-09-11 13:07 | PN ---
Progress Note, Physician History of Present Illness: Awake, alert Answers appropriately No complaints Afebrile - Current Medication List Current Medications: Active Medications Acetaminophen (Tylenol -) 650 mg PO Q4H PRN PRN Reason: PAIN Last Admin: 09/10/18 21:57 Dose: 650 mg Atenolol (Tenormin -) 25 mg PO BID [facility] Last Admin: 09/11/18 09:57 Dose: 25 mg Atorvastatin Calcium (Lipitor -) 20 mg PO HS [facility] Last Admin: 09/10/18 21:56 Dose: 20 mg Budesonide/Formoterol Fumarate (Symbicort 80/4.5mcg -) 2 puff IH BID [facility] Last Admin: 09/11/18 09:52 Dose: 2 puff Escitalopram Oxalate (Lexapro -) 10 mg PO DAILY [facility] Last Admin: 09/11/18 09:52 Dose: 10 mg Folic Acid (Folic Acid -) 1 mg PO DAILY [facility] Last Admin: 09/11/18 09:52 Dose: 1 mg Magnesium Oxide (Mag-Ox -) 800 mg PO DAILY [facility] Stop: 09/12/18 10:01 Last Admin: 09/11/18 09:52 Dose: 800 mg Pantoprazole Sodium (Protonix -) 20 mg PO DAILY [facility] Last Admin: 09/11/18 09:52 Dose: 20 mg Prednisone (Deltasone -) 5 mg PO DAILY [facility] Last Admin: 09/11/18 09:52 Dose: 5 mg - Objective Vital Signs: Vital Signs Temperature 98.0 F 09/11/18 06:24 Pulse Rate 88 09/11/18 06:24 Respiratory Rate 20 09/11/18 06:24 Blood Pressure 111/58 L 09/11/18 06:24 O2 Sat by Pulse Oximetry (%) 95 09/11/18 09:00 Constitutional: Yes: No Distress Eyes: Yes: Conjunctiva Clear Cardiovascular: Yes: Regular Rate and Rhythm, S1, S2 Respiratory: Yes: CTA Bilaterally Gastrointestinal: Yes: Normal Bowel Sounds, Soft. No: Tenderness Genitourinary: Yes: Other (+ bilateral PCN) Edema: No Labs: CBC, BMP 09/11/18 05:30 09/11/18 05:30 INR, PTT INR 1.32 (0.83-1.09) H 09/11/18 05:30 Assessment/Plan MSSA bacteremia completed course of therapy Toxic metabolic encephalopathy improved S/P bilateral PCN + urine ESBL D/C cefazolin Observe off antibiotics OK to D/C PICC
[2018-09-11 13:16] LABS: HEMATOCRIT 24.9 % (32.4-45.2); HEMOGLOBIN 8.1 GM/dL (10.7-15.3); MCH 24.7 pg (25.7-33.7); MCHC 32.4 g/dl (32.0-36.0); MEAN CELL VOLUME 76.1 fl (80-96); MEAN PLT VOLUME 9.1 fl (7.5-11.1); PLATELET COUNT 246 K/MM3 (134-434); RBC 3.27 M/mm3 (3.60-5.2); RDW 24.3 % (11.6-15.6)
--- NOTE | 2018-09-11 13:23 | DS ---
Physical Exam: SUBJECTIVE: Patient seen and examined at bedside. Resting comfortably. No acute events overnight. OBJECTIVE: Vital Signs Period Temp Pulse Resp BP Sys/Garza Pulse Ox Last 24 Hr 97.2 F-98.8 F 83-96 18-22 100-111/49-60 95-97 PHYSICAL EXAM GENERAL: Awake Alert NAD HEAD: NC/AT EYES: EOMI No sceral icterus, Conjunctiva clear ENT: MMM NECK: full range of motion, supple. LUNGS: Rales throughout HEART: Irregular ABDOMEN: NDNT No HSM, Nephrostomy tubes in place b/l draining EXTREMITIES: 2+ pulses, warm, well-perfused, no edema. NEUROLOGICAL: No neuro deficits appreciated PSYCH: Normal mood, normal affect. SKIN: Warm, dry, normal turgor, no rashes or lesions noted. LABS Laboratory Results - last 24 hr 09/11/18 09/11/18 09/11/18 05:30 05:30 05:30 WBC 11.2 H RBC 3.28 L Hgb 7.7 L Hct 25.1 L MCV 76.5 L MCH 23.3 L MCHC 30.5 L RDW 24.4 H Plt Count 236 MPV 9.0 PT with INR 15.60 H INR 1.32 H Sodium 137 Potassium 3.9 Chloride 93 L Carbon Dioxide 39 H Anion Gap 5 L BUN 14 Creatinine 0.5 L Creat Clearance w eGFR > 60 Random Glucose 91 Calcium 8.0 L Phosphorus 3.1 Magnesium 1.9 09/11/18 12:45 WBC 10.0 RBC 3.27 L Hgb 8.1 L Hct 24.9 L MCV 76.1 L MCH 24.7 L MCHC 32.4 RDW 24.3 H Plt Count 246 MPV 9.1 PT with INR INR Sodium Potassium Chloride Carbon Dioxide Anion Gap BUN Creatinine Creat Clearance w eGFR Random Glucose Calcium Phosphorus Magnesium HOSPITAL COURSE: Date of Admission:09/05/18 Pt was seen in our hospital for lethargy and electrolyte abnormalities. Pt's potassium level was severely decreased at 1.8 and was given intravenous KCL as well as K-Dur. Her Lasix was discontinued and pt was placed on Spironolactone. Pt completed her antibiotic treatment that she was receiving through her PICC line. Urine cx was positive for ESBL and was decided per I.D to monitor off antibiotics after finishing cefazolin treatment through PICC. Pt was also also noted to have an INR of 11.42. Pt therefore received Vitamin K and and Fresh Frozen plasma, ultimately returning to below 2. Hematology was consulted to determine the etiology of elevated INR. Possible causes include occult liver disease, poor nutrition, and IV antibiotics. Abdominal ultrasound revealed no obvious sonographic abnormalities. Furthermore, pt was also noted to have bloody stool during this admission and CBC fell to 7.7 but went back up to 8.1 on repeat the same day. Pt still has bilateral percutaneous nephrostomy tubes in both of her kidneys and was advised to follow up with Dr Anderson for internalization the stents. Date of Discharge: 09/11/18 Minutes to complete discharge: 35 Discharge Summary Reason For Visit: INR/HYPOKALEMIA Current Active Problems Blood in stool (Acute) Elevated INR (Acute) Hypokalemia (Acute) Supratherapeutic INR (Acute) Condition: Improved - Instructions Diet, Activity, Other Instructions: You were seen in our hospital for lethargy and electrolyte abnormalities. Your potassium level was severely decreased at 1.8 and you were subsequently given numerous potassium supplements intravenously and orally. During your stay, you also completed your antibiotic treatment that you were receiving through the PICC line in your arm. You still have the bilateral percutaneous nephrostomy tubes in both of your kidneys. Please have a qualified individual empty these nephrostomy bags daily. You were also noted with INR 11 and received Vitamin K and blood products. Please take the following medications as listed below: -Aldactone 25 MG once per day for TWO (2) days starting tomorrow, then have a blood work (BMP) and further dosing per your kidney doctor. -STOP YOUR LASIX (FUROSEMIDE) AND DO NOT TAKE TILL FURTHER INSTRUCTED BY YOUR KIDNEY DOCTOR. -Continue prednisone 5 mg daily till further instructed by Dr. Nicole. -Continue other medications as before. -Daily weights and notify doctor if weight gain > 3 lbs in 2 days. Referrals: -Please follow up with your primary care physician within 1 week -Please make an appointment with Dr Anderson to internalize your nephrostomy tubes within 1 week. -Follow up with urologist Dr. Colon in 1-2 weeks. -FOllow up with Dr. Del Angel in 1 week -Follow up with Dr. Nicole in 1-2 weeks. PLEASE NOTE THAT YOU WILL NEED CLOSE MONITORING OF YOUR POTASSIUM LEVELS AND KIDNEY FUNCTION WITH YOUR INFORMATION SYSTEMS SECURITY MANAGER. You will need coverage for bacteria called ESBL for any urological procedure in the future. Blood work: BMP (basic metabolic panel), Magnesium, phosphorous levels, PT/INR in 3 days with results to Dr. Del Angel. If you experience any symptoms of chest pain, shortness of breath, fever, chills , nausea, vomiting, or blood in your urine or any new concerns, please call 911 and come immediately to the Emergency Department. Referrals: Gerald Nicole MD [Staff Physician] - Lester Barrera MD [Primary Care Provider] - Janak Watkins MD [Staff Physician] - Kimberlyn Del Angel MD [Staff Physician] - 1 Week Disposition: GROUP HOME FACILITY - Home Medications Comprehensive Discharge Medication List: Ambulatory Orders Atorvastatin Ca [Lipitor] 20 mg PO HS 04/16/18 Escitalopram Oxalate [Lexapro -] 10 mg PO DAILY 04/16/18 Folic Acid 1 mg PO DAILY 04/16/18 Ipratropium [place] [Atrovent Hfa] 1 neb NEB Q4H PRN 04/17/18 Albuterol Sulfate [Proventil HFA Inhaler -] 1 - 2 inh PO QID PRN 06/20/18 Budesonide/Formeterol Fumarate [SYMBICORT 160/4.5mcg -] 1 inh PO BID 06/20/18 Lorazepam 0.5 mg PO Q8H PRN 06/20/18 Omeprazole 20 mg PO DAILY 06/20/18 Atenolol [Tenormin] 25 mg PO BID #30 tablet 06/23/18 Polyethylene Glycol 3350 [Miralax 119 gm Btl -] 17 gm PO BID bottle 06/23/18 Sennosides [Senna -] 2 tab PO HS tablet 06/23/18 Prednisone See Taper PO DAILY #30 tablet 08/25/18 This patient is new to me today: No Emergency Visit: Yes ED Registration Date: 09/05/18 Care time: The patient presented to the Emergency Department on the above date and was hospitalized for further evaluation of their emergent condition. Critical Care patient: No - Discharge Referral Referred to [facility] Med P.[facility].: No
--- NOTE | 2018-09-11 14:14 | PN ---
Progress Note, Physician History of Present Illness: Pt seen and examined at bedside. She is awake and appears comfortable. - Current Medication List Current Medications: Active Medications Acetaminophen (Tylenol -) 650 mg PO Q4H PRN PRN Reason: PAIN Last Admin: 09/10/18 21:57 Dose: 650 mg Atenolol (Tenormin -) 25 mg PO BID [facility] Last Admin: 09/11/18 09:57 Dose: 25 mg Atorvastatin Calcium (Lipitor -) 20 mg PO HS [facility] Last Admin: 09/10/18 21:56 Dose: 20 mg Budesonide/Formoterol Fumarate (Symbicort 80/4.5mcg -) 2 puff IH BID [facility] Last Admin: 09/11/18 09:52 Dose: 2 puff Escitalopram Oxalate (Lexapro -) 10 mg PO DAILY [facility] Last Admin: 09/11/18 09:52 Dose: 10 mg Folic Acid (Folic Acid -) 1 mg PO DAILY [facility] Last Admin: 09/11/18 09:52 Dose: 1 mg Magnesium Oxide (Mag-Ox -) 800 mg PO DAILY [facility] Stop: 09/12/18 10:01 Last Admin: 09/11/18 09:52 Dose: 800 mg Pantoprazole Sodium (Protonix -) 20 mg PO DAILY [facility] Last Admin: 09/11/18 09:52 Dose: 20 mg Prednisone (Deltasone -) 5 mg PO DAILY [facility] Last Admin: 09/11/18 09:52 Dose: 5 mg - Objective Vital Signs: Vital Signs Temperature 98.0 F 09/11/18 06:24 Pulse Rate 88 09/11/18 06:24 Respiratory Rate 20 09/11/18 06:24 Blood Pressure 111/58 L 09/11/18 06:24 O2 Sat by Pulse Oximetry (%) 95 09/11/18 09:00 Constitutional: Yes: Calm Eyes: Yes: Conjunctiva Clear HENT: Yes: Atraumatic Cardiovascular: Yes: S1, S2 Respiratory: Yes: On Nasal O2 Genitourinary: Yes: Other (bilateral nephrostomy tubes) Edema: No Neurological: Yes: Oriented Psychiatric: Yes: Oriented Labs: CBC, BMP 09/11/18 12:45 09/11/18 05:30 INR, PTT INR 1.32 (0.83-1.09) H 09/11/18 05:30 Problem List - Problems (1) Elevated INR Code(s): R79.1 - ABNORMAL COAGULATION PROFILE (2) Hypokalemia Code(s): E87.6 - HYPOKALEMIA Assessment/Plan Current Medications Generic Name Dose Route Start Last Admin Trade Name Freq PRN Reason Stop Dose Admin Acetaminophen 650 mg 09/07/18 19:19 09/10/18 21:57 Tylenol - PO 650 mg Q4H PRN Administration PAIN Atenolol 25 mg 09/06/18 10:00 09/11/18 09:57 Tenormin - PO 25 mg BID LISA Administration Atorvastatin Calcium 20 mg 09/06/18 22:00 09/10/18 21:56 Lipitor - PO 20 mg HS LISA Administration Budesonide/Formoterol Fumarate 2 puff 09/06/18 10:00 09/11/18 09:52 Symbicort 80/4.5mcg - IH 2 puff BID LISA Administration Escitalopram Oxalate 10 mg 09/06/18 10:00 09/11/18 09:52 Lexapro - PO 10 mg DAILY [facility] Administration Folic Acid 1 mg 09/06/18 10:00 09/11/18 09:52 Folic Acid - PO 1 mg DAILY [facility] Administration Magnesium Oxide 800 mg 09/10/18 13:45 09/11/18 09:52 Mag-Ox - PO 09/12/18 10:01 800 mg DAILY [facility]ISA Administration Pantoprazole Sodium 20 mg 09/06/18 10:00 09/11/18 09:52 Protonix - PO 20 mg DAILY [facility] Administration Prednisone 5 mg 09/06/18 10:00 09/11/18 09:52 Deltasone - PO 5 mg DAILY [facility]ISA Administration Impression 1. hypokalemia 2. elevated INR 3. pulm HTN 4. CHF 5. hematuria 6. sarcoid 7. COPD 8. a-fib 9. hx of HTN 10. hyperlipidemia 11. GI bleed 12. elevated INR Plan - potassium is stable - can use spironolactone instead of lasix however will have to monitor potassium closely - pt will need bmp checked regularly in rehab and diuretics addressed - will need follow up with urology - discussed with medical attending - nephrostomy tube care Dr Del Angel
--- NOTE | 2018-09-11 15:47 | PN ---
Progress Note (short form) - Note Progress Note: PROGRESS NOTE FOR HEMATOLOGY/ONCOLOGY Patient seen and examined by me at bedside Patient waiting for transport back to her group home Reports she's hurting everywhere However, patient denies any shortness of breath, chest pain, palpitations, nausea, vomiting Vital Signs Temperature 98.0 F 09/11/18 06:24 Pulse Rate 88 09/11/18 06:24 Respiratory Rate 20 09/11/18 06:24 Blood Pressure 111/58 L 09/11/18 06:24 O2 Sat by Pulse Oximetry (%) 95 09/11/18 09:00 PHYSICAL EXAM: GENERAL: Awake Alert, in no acute distress EYES: No sceral icterus, Conjunctiva clear ENT: Moist mucous membranes. No oral thrush LUNGS: Bilateral rales throughout lung bases. No accessory muscle use HEART: Regular rate with irregularly irregular rhythm ABDOMEN: Soft, nontender, normoactive bowel sounds. Nephrostomy tubes in place b /l draining EXTREMITIES: Chronic venous stasis. Trace edema Laboratory Tests 09/11/18 12:45 09/11/18 05:30 09/11/18 05:30 PT with INR 15.60 H INR 1.32 H ASSESSMENT/PLAN: Patient is an 81 year old female who presented for lethary and worsening hematuria and was found to have profoundly elevated INR. Patient admitted for further monitoring and management Problem List: Supratherapeutic INR Coagulopathy. Severe Hyperkalema Lethary Chronic Respiratory failure due to COPD and Sarcoidosis MSSA bacteremia on IV Cefezolin Atrial Fibrillation (currently on no AC) Diastolic CHF CAD HTN PLAN: Possible etiologies for elevated INR would include occult liver disease, poor nutrition, and IV antibiotics. The initial lack of correction of INR with Vitamin K may reflect too short of a time period when a repeat laboratory was obtained. Flow cytometry, Iron studies still pending. Patient discharged and awaiting transportation Will need to follow up as outpatient for results and treatment Office number : [phone]
[2018-09-13 17:26] LABS: Hgb A 93.9; Hgb C 0; Hgb S 0
[2018-09-13 17:27] LABS: HGB SOLUBILITY NEGATIVE
== END 2018-09-11 17:48 | DRG 813 ==
LOC: JER 16:21 → JERBED 23:03 → J4W 09-06 14:03
PROVIDERS: ADMIT Internal Medicine; ATTEND Hospitalist
PROC: 30233K1 Transfusion of Nonautologous Frozen Plasma into Peripheral Vein, Percutaneous Approach (ICD-10-PCS; principal; 2018-09-06)
DX: D68.9 Coagulation defect, unspecified (principal); G93.41 Metabolic encephalopathy; J96.21 Acute and chronic respiratory failure with hypoxia; J96.22 Acute and chronic respiratory failure with hypercapnia; I50.30 Unspecified diastolic (congestive) heart failure; J96.10 Chronic respiratory failure, unspecified whether with hypoxia or hypercapnia; N39.0 Urinary tract infection, site not specified; N13.30 Unspecified hydronephrosis; K92.2 Gastrointestinal hemorrhage, unspecified; K92.1 Melena; E87.3 Alkalosis; E87.6 Hypokalemia; I25.10 Atherosclerotic heart disease of native coronary artery without angina pectoris; J44.9 Chronic obstructive pulmonary disease, unspecified; I27.20 Pulmonary hypertension, unspecified; D86.9 Sarcoidosis, unspecified; I11.0 Hypertensive heart disease with heart failure; E87.5 Hyperkalemia; E83.42 Hypomagnesemia; E83.39 Other disorders of phosphorus metabolism; R42 Dizziness and giddiness; F41.8 Other specified anxiety disorders; R31.9 Hematuria, unspecified; Z99.81 Dependence on supplemental oxygen
CPT/HCPCS: 36415; 36430; 36600; 70450-TC; 71045-TC-FY; 74018-TC-FY; 76700-TC; 80048; 80053; 80076; 81003; 81015; 82272; 82728; 82803; 83021; 83036; 83540; 83550; 83615; 83735; 84100; 84484; 85025; 85027; 85044; 85610; 85660; 85730; 86850; 86900; 86901; 87040; 87086; 87186; 93005; 93010; 97161-GP; 99285-25; P9017

== ENCOUNTER 2018-10-05 15:26 | Inpatient (IN) | payer OTHER ==
[2018-10-05] MEDS ORDERED: SODIUM CHLORIDE 500 ML IV STA (17:38)
[2018-10-05 17:57] LABS: VENOUS PH 7.26 (7.32-7.42)
[2018-10-05 18:04] LABS: BASO % 0.6 % (0-2.0); EOS % 1.3 % (0-4.5); LYMPH % 25.6 % (8-40); MCH 23.6 pg (25.7-33.7); MCHC 31.1 g/dl (32.0-36.0); MEAN CELL VOLUME 75.9 fl (80-96); MONO % 7.9 % (3.8-10.2); NEUT % 64.6 % (42.8-82.8); PLATELET COUNT 208 K/MM3 (134-434); RBC 3.82 M/mm3 (3.60-5.2); WHITE BLOOD COUNT 5.2 K/mm3 (4.0-10.0)
[2018-10-05 18:06] LABS: URINE APPEARANCE Cloudy; URINE BILIRUBIN Negative (<2.0 mg/dL); URINE COLOR Yellow; URINE GLUCOSE (UA) Negative (NEGATIVE); URINE KETONE Negative (NEGATIVE); URINE LEUK ESTERASE 3+ (NEGATIVE); URINE NITRITE Negative (NEGATIVE); URINE PROTEIN 1+ (NEGATIVE)
[2018-10-05 18:14] LABS: INR 1.28 (0.83-1.09); PROTHROMBIN TIME (PATIENT) 15.2 SEC (9.7-13.0)
[2018-10-05 18:16] LABS: ACTIVATED PTT 35.9 SECONDS (25.2-36.5)
[2018-10-05 18:32] LABS: ALBUMIN 2.1 g/dl (3.4-5.0); ALK PHOS 61 U/L (45-117); ANION GAP 6 MMOL/L (8-16); BILIRUBIN,TOTAL 0.6 mg/dL (0.2-1); BLOOD UREA NITROGEN 8 mg/dL (7-18); CALCIUM 9.2 mg/dL (8.5-10.1); CHLORIDE 102 mmol/L (98-107); CO2 32 mmol/L (21-32); CREATININE 0.6 mg/dL (0.55-1.3); GLUCOSE,RANDOM 106 mg/dL (74-106); POTASSIUM 4.2 mmol/L (3.5-5.1); SGOT/AST 13 U/L (15-37); SGPT/ALT 8 U/L (13-61); SODIUM 140 mmol/L (136-145); TOT PROT 6.3 g/dl (6.4-8.2)
--- NOTE | 2018-10-05 19:14 | PDOC ---
History of Present Illness - General Chief Complaint: Pain, Acute Stated Complaint: PAIN Time Seen by Provider: 10/05/18 19:13 - History of Present Illness Initial Comments: 84yo F with PMH of diastolic CHF, hemorrhagic cystitis s/p bilateral nephrostomy tubes, COPD, CAD, HTN, Depression, UTI, AFib on Eliquis presenting from [facility] for right flank pain and dizziness. Patient also complains of a cough productive of yellow sputum x 1 week. Patient is regularly on 2L oxygen at home and denies shortness of breath. She still urinates and denies dysuria or hematuria. Patient is not sure if she has had a fever at home. Denies chest pain or abdominal pain. Past History - Past Medical History Allergies/Adverse Reactions: Allergies Allergy/AdvReac Type Severity Reaction Status Date / Time No Known Allergies Allergy Verified 06/19/18 21:10 Home Medications: Ambulatory Orders Atorvastatin Ca [Lipitor] 20 mg PO HS 04/16/18 Folic Acid 1 mg PO DAILY 04/16/18 Ipratropium [place] [Atrovent Hfa] 1 neb NEB Q4H PRN 04/17/18 Albuterol Sulfate [Proventil HFA Inhaler -] 1 - 2 inh PO QID PRN 06/20/18 Budesonide/Formeterol Fumarate [SYMBICORT 160/4.5mcg -] 1 inh PO BID 06/20/18 Omeprazole 20 mg PO DAILY 06/20/18 Atenolol [Tenormin] 25 mg PO BID #30 tablet 06/23/18 Polyethylene Glycol 3350 [Miralax 119 gm Btl -] 17 gm PO BID bottle 06/23/18 Spironolactone [Aldactone] 25 mg PO DAILY #2 tablet 09/11/18 predniSONE [Deltasone -] 5 mg PO DAILY #7 tablet 09/11/18 Anemia: Yes (Pernicious) Asthma: Yes Cancer: No Cardiac Disorders: Yes (AF) CVA: No COPD: Yes CHF: Yes Dementia: No Diabetes: No GI Disorders: Yes (gastritis,) Disorders: No HTN: Yes Hypercholesterolemia: Yes Liver Disease: No Psychiatric Problems: Yes (ANXIETY.) Seizures: No Thyroid Disease: No Other medical history: resp.failure,dysphagia,SANAM,Sarcodosis,hypokalemia - Surgical History Abdominal Surgery: Yes (abdominal) Appendectomy: No Cardiac Surgery: No Cholecystectomy: Yes Lung Surgery: No (PT DENIES) Neurologic Surgery: No Orthopedic Surgery: Yes (cervical spine/hardware) - Immunization History Immunization Up to Date: No - Suicide/Smoking/Psychosocial Hx Smoking Status: No Smoking History: Unknown if ever smoked Years of Tobacco Use: 0 Have you smoked in the past 12 months: No Number of Cigarettes Smoked Daily: 0 Information on smoking cessation initiated: No Hx Alcohol Use: No Drug/Substance Use Hx: No Substance Use Type: None Hx Substance Use Treatment: No Review of Systems - Review of Systems Comments:: Constitutional: +/-fever, no chills Cardiovascular: no chest pain, no palpitations Respiratory: +cough, no shortness of breath Gastrointestinal: no abdominal pain, no nausea, no vomiting Genitourinary: no dysuria, no frequency, +right flank pain Skin: no rash, no itching Neurologic: no headache, no dizziness *Physical Exam - Vital Signs Last Vital Signs Temp Pulse Resp BP Pulse Ox 100.3 F H 85 16 114/59 L 98 10/05/18 17:41 10/05/18 17:41 10/05/18 17:41 10/05/18 17:41 10/05/18 17:41 - Physical Exam Comments: General: Awake, alert, and fully oriented, in no acute distress Head: No signs of trauma Eyes: EOMI, sclera anicteric ENT: Dry mucus membranes Neck: Normal ROM, supple Lungs: Diffuse rhonchi bilaterally Cardio: Regular rhythm, S1 and S2 present Abdomen: Soft, nontender. No guarding, no rebound, no masses; +R. CVA tenderness Extremities: Normal range of motion, Distal pulses present SKIN: Warm, Dry, normal turgor Neurologic: Cranial nerves II through XII grossly intact Moderate Sedation - Procedure Monitoring Vital Signs: Procedure Monitoring Vital Signs Temperature 100.3 F H 10/05/18 17:41 Pulse Rate 85 10/05/18 17:41 Respiratory Rate 16 10/05/18 17:41 Blood Pressure 114/59 L 10/05/18 17:41 O2 Sat by Pulse Oximetry (%) 98 10/05/18 17:41 ED Treatment Course - LABORATORY CBC & Chemistry Diagram: 10/05/18 17:00 10/05/18 17:00 - ADDITIONAL ORDERS Additional order review: Laboratory Results 10/05/18 10/05/18 10/05/18 17:00 17:00 17:00 PT with INR INR PTT (Actin FS) Sodium 140 Potassium 4.2 Chloride 102 Carbon Dioxide 32 Anion Gap 6 L BUN 8 Creatinine 0.6 Creat Clearance w eGFR > 60 Random Glucose 106 Lactic Acid 2.3 H* Calcium 9.2 Total Bilirubin 0.6 AST 13 L ALT 8 L Alkaline Phosphatase 61 Troponin I 0.02 Total Protein 6.3 L Albumin 2.1 L Urine Color Yellow Urine Appearance Cloudy Urine pH 7.0 Ur Specific [place] 1.020 Urine Protein 1+ H Urine Glucose (UA) Negative Urine Ketones Negative Urine Blood 2+ H Urine Nitrite Negative Urine Bilirubin Negative Urine Urobilinogen 2.0 H Ur Leukocyte Esterase 3+ H D 10/05/18 17:00 PT with INR 15.20 H INR 1.28 H PTT (Actin FS) 35.9 Sodium Potassium Chloride Carbon Dioxide Anion Gap BUN Creatinine Creat Clearance w eGFR Random Glucose Lactic Acid Calcium Total Bilirubin AST ALT Alkaline Phosphatase Troponin I Total Protein Albumin Urine Color Urine Appearance Urine pH Ur Specific [place] Urine Protein Urine Glucose (UA) Urine Ketones Urine Blood Urine Nitrite Urine Bilirubin Urine Urobilinogen Ur Leukocyte Esterase 10/05/18 17:00 RBC 3.82 MCV 75.9 L MCHC 31.1 L RDW 19.0 H MPV 9.0 Neutrophils % 64.6 Lymphocytes % 25.6 D Monocytes % 7.9 Eosinophils % 1.3 D Basophils % 0.6 - Medications Given in the ED: ED Medications Discontinued Medications Generic Name Dose Route Start Last Admin Trade Name Freq PRN Reason Stop Dose Admin Sodium Chloride 500 mls @ 500 mls/hr 10/05/18 17:38 10/05/18 17:42 Normal Saline - IV 10/05/18 18:37 500 mls/hr ASDIR STA Administration Medical Decision Making - Medical Decision Making 84yo F with PMH of diastolic CHF, hemorrhagic cystitis s/p bilateral nephrostomy tubes, COPD, CAD, HTN, Depression, UTI, AFib on Eliquis presenting from [facility] for right flank pain and dizziness. -DDX includes but not limited to: PNA, UTI, CHF exacerbation, COPD exacerbation , hydronephrosis -Patient had fever of 100.3 while in the ED, which subsequently decreased to 98.4 upon repeat vitals -Labs: WBC=5.2, hbg=9.0 (close to patient's baseline), lactate=2.3 UA positive for 3+LE, 2+ blood, 154 WBC -Total of 1.5L NS -CXR: increased infiltrates present compared to previous radiographs (my impression) -Duoneb 1 amp: patient reports some improvement -IV Antibiotics: 500mg Azithromycin, 4.5mg Zosyn 10/05/18 20:04 Discussed case with hospitalist team who accepted patient for admission under Dr. Anderson. Chest CT: In comparison to a CT exam of 04/18/2018 development of small right- sided and trace left sided pleural effusions is noted. There is increased bilateral flank subcutaneous edema. Multichamber cardiomegaly is again seen. As on the prior study mildly prominent bibasilar interstitial thickening is seen suggestive of interstitial vascular congestion. There is bibasilar discoid atelectasis. A dilated main pulmonary artery is noted consistent with increased pulmonary arterial pressure. *DC/Admit/Observation/Transfer Diagnosis at time of Disposition: UTI (urinary tract infection) - Discharge Dispostion Condition at time of disposition: Guarded Decision to Admit order: Yes - Referrals - Patient Instructions - Post Discharge Activity
[2018-10-05 19:37] LABS: URINE BACTERIA RARE /hpf (NONE SEEN); URINE MUCUS RARE
--- NOTE | 2018-10-05 19:50 | PDOC ---
Attending Attestation - HPI HPI: 10/05/18 20:04 The patient is a 81 year old female, with a significant past medical history of hypertension, coronary artery disease, CHF (diastolic), COPD (O2 dependent on 3L nasal cannula) and hemorrhagic cystitis (bilateral nephrostomy tubes in place ), who presents to the emergency department via [facility] from [facility] with a cough for the past week. The patient additionally reports dizziness and right sided flank pain. Upon presentation to the emergency department, the patient is febrile. Allergies: None reported. Past Surgical History: Cervical spine surgery w/ hardware; Lung Surgery; Cholecystectomy; Nephrostomy tube placement (bilateral). Social History: Non-smoker. Denies alcohol or drug use. PCP: Dr. Barrera Documentation prepared by Melani Mcneal, acting as emergency medical services coordinator for Angelica Em MD. <Melani Velazquez - Last Filed: 10/05/18 20:09> - Resident Resident Name: Angelica Ace - ED Attending Attestation I have performed the following: I have examined & evaluated the patient, The case was reviewed & discussed with the resident, I agree w/resident's findings & plan, Exceptions are as noted - Physicial Exam PE: GENERAL: Awake, alert, and fully oriented, in no acute distress HEAD: No signs of trauma EYES: PERRLA, EOMI, sclera anicteric, conjunctiva clear ENT: Auricles normal inspection, hearing grossly normal, nares patent, oropharynx clear without exudates. Moist mucosa NECK: Normal ROM, supple, no lymphadenopathy, JVD, or masses LUNGS: Mildly dec air entry B/L, +diffuse rhonchi B/L. Speaking full sentences. HEART: Regular rate and rhythm, normal S1 and S2, no murmurs, rubs or gallops ABDOMEN: Soft, +suprapubic tenderness, normoactive bowel sounds. +Guarding, no rebound. No masses. +R CVAT. EXTREMITIES: Normal range of motion, no edema. No clubbing or cyanosis. No cords, erythema, or tenderness NEUROLOGICAL: Cranial nerves II through XII grossly intact. Normal speech. Motor and sensation intact. SKIN: Warm, Dry, normal turgor, no rashes or lesions noted. - Medical Decision Making Pt presented with fever. Noted to have abd tenderness and CVAT, suspicious for pyelo. Also with diffuse rhonchi and CXR that is suspicious for pna (poor film, will obtain CT chest to confirm). Will give zosyn and azithro to cover pna and UTI (history ESBL). Admit. <Angelica Em - Last Filed: 10/05/18 20:32>
[2018-10-05] MEDS ORDERED: PIPERACILLIN/TAZOB 4.5 GM 4.5 GM in DEXTROSE 5%-WATER 100 ML IVPB ONE (19:55)
[2018-10-05] MEDS ORDERED: SODIUM CHLORIDE 1,000 ML IV STA (19:55)
[2018-10-05] MEDS ORDERED: AZITHROMYCIN IVPB 500 MG in DEXTROSE 5%-WATER - 250 ML IVPB ONE (19:55)
[2018-10-05] MEDS ORDERED: ALBUTEROL SO4 2.5/IPRATROPIUM 0.5 INH SOL 3 ML VIAL.NEB. NEB ONE ×2 (20:00→20:11)
[2018-10-05] MEDS ORDERED: AZITHROMYCIN IVPB 500 MG/250 ML BAG IVPB ONE (20:11)
[2018-10-05] MEDS ORDERED: PIPERACILLIN/TAZOB 4.5 GM 4.5 GM/100 ML BAG IVPB ONE (20:12)
--- NOTE | 2018-10-05 22:33 | HP ---
CHIEF COMPLAINT: PCP: HISTORY OF PRESENT ILLNESS: 81 yo F PMH of scoliosis, cervical spine surgery, left lung surgery, cholecystectomy, Chronic respiratory failure, COPD (O2-dependent on 3L NC), diastolic CHF, A-fib (not on AC), CAD, HTN, Pulmonary HTN, sarcoidosis, hemorrhagic cystitis (s/p cystoscopy 08/11, s/p b/l nephrostomy tube placement 08/16), was brought in [facility] from [facility] with a cough for the past week. The patient additionally reports dizziness and right sided flank pain. Upon presentation to the ER the patient noted to be febrile. At last admission: supratherapeutic INR - attributed to liver path vs nutrition vs abx completed tx of MSSA w/ cefazolin ESBL covered by cefazolin blood stools, FOBT pos, will need colonoscopy when stable feretin 1000s, iron nl ER course was notable for: (1) 1.5L NS, Zosyn, Azithro, duoneb (2) UA - 3+leuk est, wbc 154 (3) Recent Travel: unknown PAST MEDICAL HISTORY: Chronic respiratory failure, COPD (O2-dependent on 3L NC) , diastolic CHF, CAD, HTN, Pulmonary HTN, sarcoidosis, hemorrhagic cystitis (s/ p cystoscopy 08/11, s/p b/l nephrostomy tube placement 08/16) PAST SURGICAL HISTORY: cervical spine surgery, left lung surgery, cholecystectomy Social History: Smoking: no Alcohol: no Drugs: no Family History: unknown Allergies No Known Allergies Allergy (Verified 06/19/18 21:10) HOME MEDICATIONS: Home Medications Medication Instructions Recorded Atorvastatin Ca [Lipitor] 20 mg PO HS 04/16/18 Folic Acid 1 mg PO DAILY 04/16/18 Ipratropium [place] [Atrovent Hfa] 1 neb NEB Q4H PRN 04/17/18 Albuterol Sulfate [Proventil HFA 1 - 2 inh PO QID PRN 06/20/18 Inhaler -] Budesonide/Formeterol Fumarate 1 inh PO BID 06/20/18 [SYMBICORT 160/4.5mcg -] Omeprazole 20 mg PO DAILY 06/20/18 Atenolol [Tenormin] 25 mg PO BID #30 tablet 06/23/18 Polyethylene Glycol 3350 [Miralax 17 gm PO BID bottle 06/23/18 119 gm Btl -] Spironolactone [Aldactone] 25 mg PO DAILY #2 tablet 09/11/18 predniSONE [Deltasone -] 5 mg PO DAILY #7 tablet 09/11/18 REVIEW OF SYSTEMS CONSTITUTIONAL: Absent: fever, chills, diaphoresis, generalized weakness, malaise, loss of appetite, weight change HEENT: Absent: rhinorrhea, nasal congestion, throat pain, throat swelling, difficulty swallowing, mouth swelling, ear pain, eye pain, visual changes CARDIOVASCULAR: Absent: chest pain, syncope, palpitations, irregular heart rate, lightheadedness , peripheral edema RESPIRATORY: Absent: cough, shortness of breath, dyspnea with exertion, orthopnea, wheezing, stridor, hemoptysis GASTROINTESTINAL: Absent: abdominal pain, abdominal distension, nausea, vomiting, diarrhea, constipation, melena, hematochezia GENITOURINARY: Absent: dysuria, frequency, urgency, hesitancy, hematuria, flank pain, genital pain MUSCULOSKELETAL: Absent: myalgia, arthralgia, joint swelling, back pain, neck pain SKIN: Absent: rash, itching, pallor HEMATOLOGIC/IMMUNOLOGIC: Absent: easy bleeding, easy bruising, lymphadenopathy, frequent infections ENDOCRINE: Absent: unexplained weight gain, unexplained weight loss, heat intolerance, cold intolerance NEUROLOGIC: Absent: headache, focal weakness or paresthesias, dizziness, unsteady gait, seizure, mental status changes, bladder or bowel incontinence PSYCHIATRIC: Absent: anxiety, depression, suicidal or homicidal ideation, hallucinations. PHYSICAL EXAMINATION Vital Signs - 24 hr 10/05/18 10/05/18 10/05/18 16:04 17:28 17:41 Temperature 98.4 F 100.3 F H 100.3 F H Pulse Rate 73 85 Pulse Rate [ 68 Left Apical] Respiratory 16 16 16 Rate Blood Pressure 124/69 114/59 L Blood Pressure 115/53 L [Left Arm] O2 Sat by Pulse 97 98 98 Oximetry (%) 10/05/18 19:20 Temperature 98.4 F Pulse Rate Pulse Rate [ 75 Left Apical] Respiratory 17 Rate Blood Pressure Blood Pressure 131/79 [Left Arm] O2 Sat by Pulse 100 Oximetry (%) GENERAL: Awake, alert, and fully oriented, in no acute distress. HEAD: Normal with no signs of trauma. EYES: Pupils equal, round and reactive to light, extraocular movements intact, sclera anicteric, conjunctiva clear. No lid lag. EARS, NOSE, THROAT: Ears normal, nares patent, oropharynx clear without exudates. Moist mucous membranes. NECK: Normal range of motion, supple without lymphadenopathy, JVD, or masses. LUNGS: Breath sounds equal, clear to auscultation bilaterally. No wheezes, and no crackles. No accessory muscle use. HEART: Regular rate and rhythm, normal S1 and S2 without murmur, rub or gallop. ABDOMEN: Soft, nontender, not distended, normoactive bowel sounds, no guarding, no rebound, no masses. No hepatomegaly or splenomegaly. MUSCULOSKELETAL: Normal range of motion at all joints. No bony deformities or tenderness. No CVA tenderness. UPPER EXTREMITIES: 2+ pulses, warm, well-perfused. No cyanosis. No clubbing. No peripheral edema. LOWER EXTREMITIES: 2+ pulses, warm, well-perfused. No calf tenderness. No peripheral edema. NEUROLOGICAL: Cranial nerves II-XII intact. Normal speech. Normal gait. PSYCHIATRIC: Cooperative. Good eye contact. Appropriate mood and affect. SKIN: Warm, dry, normal turgor, no rashes or lesions noted, normal capillary refill. Laboratory Results - last 24 hr 10/05/18 10/05/18 10/05/18 17:00 17:00 17:00 WBC 5.2 RBC 3.82 Hgb 9.0 L Hct 29.0 L D MCV 75.9 L MCH 23.6 L MCHC 31.1 L RDW 19.0 H Plt Count 208 MPV 9.0 Absolute Neuts (auto) 3.4 Neutrophils % 64.6 Lymphocytes % 25.6 D Monocytes % 7.9 Eosinophils % 1.3 D Basophils % 0.6 Nucleated RBC % 0 PT with INR 15.20 H INR 1.28 H PTT (Actin FS) 35.9 VBG pH POC VBG pCO2 POC VBG pO2 Mixed VBG HCO3 Sodium Potassium Chloride Carbon Dioxide Anion Gap BUN Creatinine Creat Clearance w eGFR Random Glucose Lactic Acid Calcium Total Bilirubin AST ALT Alkaline Phosphatase Troponin I Total Protein Albumin Urine Color Yellow Urine Appearance Cloudy Urine pH 7.0 Ur Specific [place] 1.020 Urine Protein 1+ H Urine Glucose (UA) Negative Urine Ketones Negative Urine Blood 2+ H Urine Nitrite Negative Urine Bilirubin Negative Urine Urobilinogen 2.0 H Ur Leukocyte Esterase 3+ H D Urine WBC (Auto) 154 Urine RBC (Auto) 18 Urine Bacteria Rare Urine Mucus Rare 10/05/18 10/05/18 10/05/18 17:00 17:00 17:00 WBC RBC Hgb Hct MCV MCH MCHC RDW Plt Count MPV Absolute Neuts (auto) Neutrophils % Lymphocytes % Monocytes % Eosinophils % Basophils % Nucleated RBC % PT with INR INR PTT (Actin FS) VBG pH 7.26 L POC VBG pCO2 75.0 H* POC VBG pO2 26.0 L Mixed VBG HCO3 32.7 H Sodium 140 Potassium 4.2 Chloride 102 Carbon Dioxide 32 Anion Gap 6 L BUN 8 Creatinine 0.6 Creat Clearance w eGFR > 60 Random Glucose 106 Lactic Acid 2.3 H* Calcium 9.2 Total Bilirubin 0.6 AST 13 L ALT 8 L Alkaline Phosphatase 61 Troponin I 0.02 Total Protein 6.3 L Albumin 2.1 L Urine Color Urine Appearance Urine pH Ur Specific [place] Urine Protein Urine Glucose (UA) Urine Ketones Urine Blood Urine Nitrite Urine Bilirubin Urine Urobilinogen Ur Leukocyte Esterase Urine WBC (Auto) Urine RBC (Auto) Urine Bacteria Urine Mucus ASSESSMENT/PLAN: 81 yo F PMH of scoliosis, cervical spine surgery, left lung surgery, cholecystectomy, Chronic respiratory failure, COPD (O2-dependent on 3L NC), diastolic CHF, A-fib (not on AC), CAD, HTN, Pulmonary HTN, sarcoidosis, hemorrhagic cystitis (s/p cystoscopy 08/11, s/p b/l nephrostomy tube placement 08/16), was brought in [facility] from [facility] with R flank pain , fevers, dizzy x1d and yellow productive cough for the past week. Sepsis 2/2 UTI and possible pyelo and possible HCAP- s/p 1.5L NS, Zosyn, Azithro, duoneb in ED c/w Zosyn. CXR is poor quality, rotated with obscured lung bases - chest CT result is pending. Has yellowish sputum so will add IV vancomycin to cover for possible HCAP pending chest CT report. IV NS 50 cc, gentle in setting of dCHF trend lactic acid UA - 3+leuk est, wbc 154 f/u ucx, bcx ID consult tylenol A-fib, Not on AC for afib due to ?recent GI bleeding and hematuria - was scheduled for colonoscopy when stable. FOBT pos on last admission consider Reconsult GI. atenolol microcytic anemia ?recent GI bleeding and hematuria - was scheduled for colonoscopy when stable. FOBT pos on last admission consider Reconsult GI. last admission:feretin 1000s, iron nl , may be anemia of chronic disease CAD, HLD lipitor COPD duoneb albuterol c/w home dose prednisone FEN NS 50cc, avoid fluid overload replete prn Na ctl ppx SCD protonix Advance directives - Full code Visit type - Emergency Visit Emergency Visit: Yes ED Registration Date: 10/05/18 Care time: The patient presented to the Emergency Department on the above date and was hospitalized for further evaluation of their emergent condition. - New Patient This patient is new to me today: Yes Date on this admission: 10/06/18 - Critical Care Critical Care patient: No
--- NOTE | 2018-10-05 23:01 | PN ---
Teaching Attending Note Name of Resident: Dank Fowler ATTENDING PHYSICIAN STATEMENT I saw and evaluated the patient. I reviewed the resident's note and discussed the case with the resident. I agree with the resident's findings and plan as documented. SUBJECTIVE: Patient is an 81 year old woman with a PMH of hypertension, scoliosis, cervical spine surgery, left lung surgery, cholecystectomy, coronary artery disease, diastolic CHF, COPD (O2 dependent on 3L nasal cannula) and hemorrhagic cystitis (bilateral nephrostomy tubes in place), who [facility] with a cough for the past week. The patient additionally reports dizziness and right sided flank pain. Upon presentation to the ER the patient noted to be febrile. OBJECTIVE: Alert Vital Signs Period Temp Pulse Resp BP Sys/Garza Pulse Ox Last 24 Hr 98.4 F-100.3 F 68-85 16-17 114-131/53-79 97-100 HEENT: No Jaundice, eye redness or discharge, PERRLA, EOMI. Normocephalic, atraumatic. External ears are normal and hearing is grossly intact. No nasal discharge. Neck: Supple, nontender. No palpable adenopathy or thyromegaly. No JVD Chest: Good effort. Decreased breath sounds in both lung bases. Clear to percussion. Heart: Regular. No S3, rub or murmur Abdomen: Not distended, soft, suprapubic tenderness and right CVAT; no HSM. No rebound or guarding. Normoactive bowel sounds. Ext: Peripheral pulses intact. No leg edema. Skin: Warm and dry. No petechiae, rash or ecchymosis. Neuro: Alert. Oriented x3. CN 2-12 grossly intact. Sensation grossly intact in all four extremities and DTR are symmetric. Home Medications Medication Instructions Recorded Atorvastatin Ca [Lipitor] 20 mg PO HS 04/16/18 Folic Acid 1 mg PO DAILY 04/16/18 Ipratropium [place] [Atrovent Hfa] 1 neb NEB Q4H PRN 04/17/18 Albuterol Sulfate [Proventil HFA 1 - 2 inh PO QID PRN 06/20/18 Inhaler -] Budesonide/Formeterol Fumarate 1 inh PO BID 06/20/18 [SYMBICORT 160/4.5mcg -] Omeprazole 20 mg PO DAILY 06/20/18 Atenolol [Tenormin] 25 mg PO BID #30 tablet 06/23/18 Polyethylene Glycol 3350 [Miralax 17 gm PO BID bottle 06/23/18 119 gm Btl -] Spironolactone [Aldactone] 25 mg PO DAILY #2 tablet 09/11/18 predniSONE [Deltasone -] 5 mg PO DAILY #7 tablet 09/11/18 Abnormal Lab Results 10/05/18 10/05/18 10/05/18 17:00 17:00 17:00 Hgb 9.0 L Hct 29.0 L D MCV 75.9 L MCH 23.6 L MCHC 31.1 L RDW 19.0 H PT with INR 15.20 H INR 1.28 H VBG pH POC VBG pCO2 POC VBG pO2 Mixed VBG HCO3 Anion Gap Lactic Acid AST ALT Total Protein Albumin Urine Protein 1+ H Urine Blood 2+ H Urine Urobilinogen 2.0 H Ur Leukocyte Esterase 3+ H D 10/05/18 10/05/18 10/05/18 17:00 17:00 17:00 Hgb Hct MCV MCH MCHC RDW PT with INR INR VBG pH 7.26 L POC VBG pCO2 75.0 H* POC VBG pO2 26.0 L Mixed VBG HCO3 32.7 H Anion Gap 6 L Lactic Acid 2.3 H* AST 13 L ALT 8 L Total Protein 6.3 L Albumin 2.1 L Urine Protein Urine Blood Urine Urobilinogen Ur Leukocyte Esterase ASSESSMENT AND PLAN: 1. Sepsis due to UTI - Being treated with Zosyn. CXR is poor quality, rotated with obscured lung bases - chest CT result is pending. Has yellowish sputum so will add IV vancomycin and azithromycin to cover for possible HCAP pending chest CT report. Continue IV NS and trend lactic acid level. Not on AC for afib due to ?recent GI bleeding and hematuria - was scheduled for colonoscopy when stable. Has guaiac positive stool. Reconsult GI. 2. Hypoalbuminemia - Possibly due to combined effects of malnutrition and inflammation associated with comorbid chronic conditions. Will ensure adequate dietary protein intake and also consult church musician. 3. Anemia - Do basic anemia work up including serial stool guaiacs, reticulocyte count and iron studies. Would benefit from EGD and colonoscopy when stable. 4. DVT prophylaxis - Lovenox 40 mg SQ q 24 hours. 5. Advance directives - Full code
[2018-10-05] MEDS ORDERED: SODIUM CHLORIDE 1,000 ML IV SCH (23:45)
[2018-10-05] MEDS ORDERED: ACETAMINOPHEN 325 MG TABLET (FP) PO PRN (23:49)
[2018-10-06] MEDS ORDERED: ALBUTEROL SO4 0.083% IH SOL 2.5 MG/3 ML VIAL.NEB. NEB PRN (00:01)
[2018-10-06] MEDS ORDERED: VANCOMYCIN 1,250 MG in DEXTROSE 5%-WATER - 250 ML IVPB ONE (00:01)
[2018-10-06] MEDS ORDERED: VANCOMYCIN 1 GRAM (PRE-DOCKED) 1,000 MG/250 ML BAG IVPB ONE (00:22)
[2018-10-06] MEDS ORDERED: VANCOMYCIN 500 MG VIAL (RESTRICTED TO ID ONLY) ONE (00:22)
[2018-10-06 07:39] LABS: BASO % 0.6 % (0-2.0); EOS % 1.2 % (0-4.5); HEMATOCRIT 30.1 % (32.4-45.2); HEMOGLOBIN 9.4 GM/dL (10.7-15.3); LYMPH % 37.2 % (8-40); MCH 23.6 pg (25.7-33.7); MCHC 31.3 g/dl (32.0-36.0); MEAN CELL VOLUME 75.3 fl (80-96); MEAN PLT VOLUME 8.7 fl (7.5-11.1); MONO % 11.3 % (3.8-10.2); NEUT % 49.7 % (42.8-82.8); PLATELET COUNT 223 K/MM3 (134-434); RDW 18.8 % (11.6-15.6); WHITE BLOOD COUNT 6.6 K/mm3 (4.0-10.0)
[2018-10-06] MEDS: ALBUTEROL SO4 2.5/IPRATROPIUM 0.5 INH SOL 3 ML VIAL.NEB. NEB SCH ×4 (08:53→20:17)
[2018-10-06] MEDS ORDERED: ALBUTEROL SO4 2.5/IPRATROPIUM 0.5 INH SOL 3 ML VIAL.NEB. NEB ONE (09:06)
--- NOTE | 2018-10-06 10:53 | CON.CARD ---
Cardiology Consult (text) - Consultation Consultation Note: Chief Complaint: right flank pain History of Present Illness: 81F h/o afib, CHF, COPD (on home O2 2L), HTN, pulm HTN, hematuria s/p b/l perc nephrostomy sent from [place] for right flank pain. Pt denies cp sob palps loc pnd orthopnea le edema. Main complaint is r flank pain. Given abx in er for uti, pna. - Past Medical History [employer]: Yes: Vertigo (intermittent) Cardio/Vascular: Yes: AFIB, CHF, HTN, Hyperlipdemia, Pulmonary Hypertension, Other (Sarcoidosis) Pulmonary: Yes: Asthma, COPD Renal/: Yes: Hematuria. No: Renal Calculi Psych: Yes: Depression - Past Surgical History Past Surgical History: Yes: Cholecystectomy, Hysterectomy - Alcohol/Substance Use Hx Alcohol Use: No History of Substance Use: reports: None - Smoking History Smoking history: Never smoked Have you smoked in the past 12 months: No Aproximately how many cigarettes per day: 0 - Social History Usual Living Arrangement: Other (most recently has been at [place], and since developing pain has been ambulating with ) History of Recent Travel: No Home Medications Allergies Allergy/AdvReac Type Severity Reaction Status Date / Time No Known Allergies Allergy Verified 06/19/18 21:10 Home Medications Medication Instructions Recorded Atorvastatin Ca [Lipitor] 20 mg PO HS 04/16/18 Folic Acid 1 mg PO DAILY 04/16/18 Ipratropium [place] [Atrovent Hfa] 1 neb NEB Q4H PRN 04/17/18 Albuterol Sulfate [Proventil HFA 1 - 2 inh PO QID PRN 06/20/18 Inhaler -] Budesonide/Formeterol Fumarate 1 inh PO BID 06/20/18 [SYMBICORT 160/4.5mcg -] Omeprazole 20 mg PO DAILY 06/20/18 Atenolol [Tenormin] 25 mg PO BID #30 tablet 06/23/18 Polyethylene Glycol 3350 [Miralax 17 gm PO BID bottle 06/23/18 119 gm Btl -] Spironolactone [Aldactone] 25 mg PO DAILY #2 tablet 09/11/18 predniSONE [Deltasone -] 5 mg PO DAILY #7 tablet 09/11/18 Family Disease History - Family Disease History Family Disease History: Heart Disease: Father, Mother, Other: Sister (Colon cancer) Review of Systems - Review of Systems per hpi, no nvd +fever no gib dysuria dash vision changes muscle pain Vital Signs: Vital Signs Period Temp Pulse Resp BP Sys/Garza Pulse Ox Last 24 Hr 98 F-100.3 F 68-97 16-18 114-132/53-79 96-100 Constitutional: Yes: Well Nourished, No Distress Eyes: Yes: Conjunctiva Clear HENT: Yes: Atraumatic, Normocephalic Neck: Yes: Supple, Trachea Midline Respiratory: Yes: Regular, On BiPap, Rales, Rhonchi Gastrointestinal: Yes: Normal Bowel Sounds, Soft Cardiovascular: Yes: Pulse Irregular JVD: no Heart Sounds: Yes: S1, S2 Edema: No Peripheral Pulses WNL: Yes Peripheral Pulses: 2+ Left Doralis Pedis, 2+ Right Dorsalis Pedis Integumentary: No: Jaundice diaphoresis Neurological: Yes: Alert, Oriented Psychiatric: Yes: Alert, Oriented Laboratory Last Values WBC 6.6 K/mm3 (4.0-10.0) 10/06/18 06:00 RBC 4.00 M/mm3 (3.60-5.2) 10/06/18 06:00 Hgb 9.4 GM/dL (10.7-15.3) L 10/06/18 06:00 Hct 30.1 % (32.4-45.2) L 10/06/18 06:00 MCV 75.3 fl (80-96) L 10/06/18 06:00 MCH 23.6 pg (25.7-33.7) L 10/06/18 06:00 MCHC 31.3 g/dl (32.0-36.0) L 10/06/18 06:00 RDW 18.8 % (11.6-15.6) H 10/06/18 06:00 Plt Count 223 K/MM3 (134-434) 10/06/18 06:00 MPV 8.7 fl (7.5-11.1) 10/06/18 06:00 Absolute Neuts (auto) 3.3 K/mm3 (1.5-8.0) 10/06/18 06:00 Neutrophils % 49.7 % (42.8-82.8) D 10/06/18 06:00 Lymphocytes % 37.2 % (8-40) D 10/06/18 06:00 Monocytes % 11.3 % (3.8-10.2) H 10/06/18 06:00 Eosinophils % 1.2 % (0-4.5) 10/06/18 06:00 Basophils % 0.6 % (0-2.0) 10/06/18 06:00 Nucleated RBC % 0 % (0-0) 10/06/18 06:00 PT with INR 15.20 SEC (9.7-13.0) H 10/05/18 17:00 INR 1.28 (0.83-1.09) H 10/05/18 17:00 PTT (Actin FS) 35.9 SECONDS (25.2-36.5) 10/05/18 17:00 VBG pH 7.26 (7.32-7.42) L 10/05/18 17:00 POC VBG pCO2 75.0 mmHg (38-52) H* 10/05/18 17:00 POC VBG pO2 26.0 mmHg (28-48) L 10/05/18 17:00 Mixed VBG HCO3 32.7 meq/L (19-25) H 10/05/18 17:00 Sodium 140 mmol/L (136-145) 10/05/18 17:00 Potassium 4.2 mmol/L (3.5-5.1) 10/05/18 17:00 Chloride 102 mmol/L (98-107) 10/05/18 17:00 Carbon Dioxide 32 mmol/L (21-32) 10/05/18 17:00 Anion Gap 6 MMOL/L (8-16) L 10/05/18 17:00 BUN 8 mg/dL (7-18) 10/05/18 17:00 Creatinine 0.6 mg/dL (0.55-1.3) 10/05/18 17:00 Creat Clearance w eGFR > 60 (>60) 10/05/18 17:00 Random Glucose 106 mg/dL (74-106) 10/05/18 17:00 Lactic Acid 2.3 mmol/L (0.4-2.0) H* 10/05/18 17:00 Calcium 9.2 mg/dL (8.5-10.1) 10/05/18 17:00 Total Bilirubin 0.6 mg/dL (0.2-1) 10/05/18 17:00 AST 13 U/L (15-37) L 10/05/18 17:00 ALT 8 U/L (13-61) L 10/05/18 17:00 Alkaline Phosphatase 61 U/L (45-117) 10/05/18 17:00 Troponin I 0.02 ng/ml (0.00-0.05) 10/05/18 17:00 Total Protein 6.3 g/dl (6.4-8.2) L 10/05/18 17:00 Albumin 2.1 g/dl (3.4-5.0) L 10/05/18 17:00 Urine Color Yellow 10/05/18 17:00 Urine Appearance Cloudy 10/05/18 17:00 Urine pH 7.0 (5.0-8.0) 10/05/18 17:00 Ur Specific [place] 1.020 (1.010-1.035) 10/05/18 17:00 Urine Protein 1+ (NEGATIVE) H 10/05/18 17:00 Urine Glucose (UA) Negative (NEGATIVE) 10/05/18 17:00 Urine Ketones Negative (NEGATIVE) 10/05/18 17:00 Urine Blood 2+ (NEGATIVE) H 10/05/18 17:00 Urine Nitrite Negative (NEGATIVE) 10/05/18 17:00 Urine Bilirubin Negative (<2.0 mg/dL) 10/05/18 17:00 Urine Urobilinogen 2.0 mg/dL (0.2-1.0) H 10/05/18 17:00 Ur Leukocyte Esterase 3+ (NEGATIVE) H D 10/05/18 17:00 Urine WBC (Auto) 154 /hpf (3-5) 10/05/18 17:00 Urine RBC (Auto) 18 /hpf (0-3) 10/05/18 17:00 Urine Bacteria Rare /hpf (NONE SEEN) 10/05/18 17:00 Urine Mucus Rare 10/05/18 17:00 Echo 05/03: nl LVEF. mild RVE, mild-mod RV hypo. L/NEENA. mod MR/TR. RVSP at least 88 mmHg Echo 03/2017: Mild conc lvh. nl lv/rv size/fn, mod ronnie, mod mr, mod tr, rvsp 40- 50 EKG: afib 85, nl qtc, no ischemic changes CXR 08/19: stable bibasilar changes L > R ct chest: trace/small effusions, no sig chf Assessment/Plan 81F h/o afib, CHF, COPD (on home O2 2L), HTN, pulm HTN, hematuria s/p b/l perc nephrostomy sent from [place] for right flank pain. flank pain, uti, fever: -08/2018 had obstructive uropathy with bilateral hydro and b/l perc nephrostomy -abx per PMD/ID/ afib: - HR control overall acceptable at present, cont bb - holding eliquis for hx of severe hematuria, anemia. copd/pulm sarcoid -apears stable, plan per pulm chronic diast CHF, cor pulmonale with RV failure: -diuretics held last visit due to hypokalemia -currently does not appear in chf -can resume home aldactone dose cad, NSTEMI, staph bacteremia 07/2018: -periop hypotension 08/11 during cysto, briefly on pressors. likely due to bacteremia, overdiuresis -trop 2.0 the following day, trended down, likely Type II CO sec to hypoperfusion/sepsis (+/- underlying stable CAD). ECG 08/[address]ressions inferior leads, improved on 08/12 tracing--cannot exclude Type I CO at time of events. -AC initially held for gross hematuria with large clots/hydronephrosis, was back on eliquis and now stopped again due to hematuria. defer aspirin -BB and afib HR control as doing -defer invasive CAD mgmt approach given Type II CO > Type I here, plus pt's poor functional status with competing mortality limitations from severe lung dz , low likelihood to improve prognosis, and risks > benefits (including bleeding , AIN)
--- NOTE | 2018-10-06 11:25 | EKG ---
Test Reason : Blood Pressure : / mmHG Vent. Rate : 085 BPM Atrial Rate : 037 BPM P-R Int : 000 ms QRS Dur : 078 ms QT Int : 378 ms P-R-T Axes : 000 -06 -40 degrees QTc Int : 449 ms ATRIAL FIBRILLATION WITH PREMATURE VENTRICULAR OR ABERRANTLY CONDUCTED COMPLEXES NONSPECIFIC ST AND T WAVE ABNORMALITY ABNORMAL ECG WHEN COMPARED WITH ECG OF 07-SEP-2018 14:46, NO SIGNIFICANT CHANGE WAS FOUND Confirmed by CLAIRE SALMERON MD ([id number]) on 10/06/2018 11:25:26 AM Referred By: Confirmed By:CLAIRE SALMERON MD
[2018-10-06] MEDS: ATENOLOL 25 MG TABLET (FP) PO SCH ×2 (11:28→21:33)
[2018-10-06] MEDS: FOLIC ACID 1 MG TABLET (FP) PO SCH (11:28)
[2018-10-06] MEDS: PANTOPRAZOLE 20 MG TABLET (FP) PO SCH (11:28)
[2018-10-06] MEDS: predniSONE 5 MG TABLET (UD) PO SCH (11:28)
[2018-10-06 11:59] LABS: ALBUMIN 2.3 g/dl (3.4-5.0); ALK PHOS 61 U/L (45-117); ANION GAP 9 MMOL/L (8-16); BILIRUBIN,TOTAL 0.7 mg/dL (0.2-1); BLOOD UREA NITROGEN 7 mg/dL (7-18); CALCIUM 9.5 mg/dL (8.5-10.1); CHLORIDE 101 mmol/L (98-107); CO2 29 mmol/L (21-32); CREATININE 0.6 mg/dL (0.55-1.3); GLUCOSE,RANDOM 89 mg/dL (74-106); MAGNESIUM 1.8 mg/dL (1.8-2.4); N-TERMINAL BNP 10369.6 pg/ml (5-450); PHOSPHOROUS 2.8 mg/dL (2.5-4.9); POTASSIUM 3.5 mmol/L (3.5-5.1); SGOT/AST 16 U/L (15-37); SGPT/ALT 8 U/L (13-61); SODIUM 139 mmol/L (136-145); TOT PROT 6.7 g/dl (6.4-8.2)
[2018-10-06] MEDS ORDERED: PT OWN MED DRAWER 7, Y5N ONE (12:22)
[2018-10-06] MEDS ORDERED: FUROSEMIDE 40 MG/4 ML INJECTABLE VIAL IVPUSH ONE (13:25)
--- NOTE | 2018-10-06 13:28 | PN ---
Physical Exam: SUBJECTIVE: Patient seen and examined this AM. She states she is not exactly sure why she is in the hospital but that the doctor at the detention felt she should come in. She states that her cough is much better than it has been in the past, though she does have her baseline SOB. She denies any fevers, chills, nightsweats. She does have her baseline abdominal pain and her nephrostomy tubes are still in place. OBJECTIVE: Vital Signs Period Temp Pulse Resp BP Sys/Garza Pulse Ox Last 24 Hr 98 F-100.3 F 68-110 16-20 114-132/53-79 96-100 GENERAL: Oriented to person, place, and time, No acute distress HEAD: Normocephalic, atraumatic. EYES: PERRL, no scleral icterus EARS, NOSE, THROAT: Moist mucous membranes. NECK: supple without lymphadenopathy LUNGS: Rhonchi with decreased air entry at bases, expiratory wheezes HEART: Irregularly irregular, regular rate, normal S1 and S2 without murmur ABDOMEN: Soft, tender to palpation, normoactive bowel sounds, nephrostomy tubes in place with clear urine draining EXTREMITIES: 2+ pulses, warm, well-perfused. Edema resolved NEUROLOGICAL: Cranial nerves II-XII grossly intact. Laboratory Results - last 24 hr 10/05/18 10/05/18 10/05/18 17:00 17:00 17:00 WBC 5.2 RBC 3.82 Hgb 9.0 L Hct 29.0 L D MCV 75.9 L MCH 23.6 L MCHC 31.1 L RDW 19.0 H Plt Count 208 MPV 9.0 Absolute Neuts (auto) 3.4 Neutrophils % 64.6 Lymphocytes % 25.6 D Monocytes % 7.9 Eosinophils % 1.3 D Basophils % 0.6 Nucleated RBC % 0 PT with INR 15.20 H INR 1.28 H PTT (Actin FS) 35.9 VBG pH POC VBG pCO2 POC VBG pO2 Mixed VBG HCO3 Sodium Potassium Chloride Carbon Dioxide Anion Gap BUN Creatinine Creat Clearance w eGFR Random Glucose Lactic Acid Calcium Phosphorus Magnesium Total Bilirubin AST ALT Alkaline Phosphatase Troponin I B-Natriuretic Peptide Total Protein Albumin Urine Color Yellow Urine Appearance Cloudy Urine pH 7.0 Ur Specific [place] 1.020 Urine Protein 1+ H Urine Glucose (UA) Negative Urine Ketones Negative Urine Blood 2+ H Urine Nitrite Negative Urine Bilirubin Negative Urine Urobilinogen 2.0 H Ur Leukocyte Esterase 3+ H D Urine WBC (Auto) 154 Urine RBC (Auto) 18 Urine Bacteria Rare Urine Mucus Rare 10/05/18 10/05/18 10/05/18 17:00 17:00 17:00 WBC RBC Hgb Hct MCV MCH MCHC RDW Plt Count MPV Absolute Neuts (auto) Neutrophils % Lymphocytes % Monocytes % Eosinophils % Basophils % Nucleated RBC % PT with INR INR PTT (Actin FS) VBG pH 7.26 L POC VBG pCO2 75.0 H* POC VBG pO2 26.0 L Mixed VBG HCO3 32.7 H Sodium 140 Potassium 4.2 Chloride 102 Carbon Dioxide 32 Anion Gap 6 L BUN 8 Creatinine 0.6 Creat Clearance w eGFR > 60 Random Glucose 106 Lactic Acid 2.3 H* Calcium 9.2 Phosphorus Magnesium Total Bilirubin 0.6 AST 13 L ALT 8 L Alkaline Phosphatase 61 Troponin I 0.02 B-Natriuretic Peptide Total Protein 6.3 L Albumin 2.1 L Urine Color Urine Appearance Urine pH Ur Specific [place] Urine Protein Urine Glucose (UA) Urine Ketones Urine Blood Urine Nitrite Urine Bilirubin Urine Urobilinogen Ur Leukocyte Esterase Urine WBC (Auto) Urine RBC (Auto) Urine Bacteria Urine Mucus 10/06/18 10/06/18 06:00 06:00 WBC 6.6 RBC 4.00 Hgb 9.4 L Hct 30.1 L MCV 75.3 L MCH 23.6 L MCHC 31.3 L RDW 18.8 H Plt Count 223 MPV 8.7 Absolute Neuts (auto) 3.3 Neutrophils % 49.7 D Lymphocytes % 37.2 D Monocytes % 11.3 H Eosinophils % 1.2 Basophils % 0.6 Nucleated RBC % 0 PT with INR INR PTT (Actin FS) VBG pH POC VBG pCO2 POC VBG pO2 Mixed VBG HCO3 Sodium 139 Potassium 3.5 Chloride 101 Carbon Dioxide 29 Anion Gap 9 BUN 7 Creatinine 0.6 Creat Clearance w eGFR > 60 Random Glucose 89 Lactic Acid Calcium 9.5 Phosphorus 2.8 Magnesium 1.8 Total Bilirubin 0.7 AST 16 ALT 8 L Alkaline Phosphatase 61 Troponin I B-Natriuretic Peptide 95293.6 H Total Protein 6.7 Albumin 2.3 L Urine Color Urine Appearance Urine pH Ur Specific [place] Urine Protein Urine Glucose (UA) Urine Ketones Urine Blood Urine Nitrite Urine Bilirubin Urine Urobilinogen Ur Leukocyte Esterase Urine WBC (Auto) Urine RBC (Auto) Urine Bacteria Urine Mucus Active Medications Generic Name Dose Route Start Last Admin Trade Name Freq PRN Reason Stop Dose Admin Acetaminophen 650 mg 10/05/18 23:49 Tylenol - PO Q4H PRN FEVER Albuterol Sulfate 1 amp 10/06/18 00:01 Ventolin 0.083% Nebulizer Soln - NEB Q4H PRN SHORT OF BREATH/WHEEZING Albuterol/Ipratropium 1 amp 10/06/18 08:00 10/06/18 12:04 Duoneb - NEB 1 amp RQID LISA Administration Atenolol 25 mg 10/06/18 10:00 10/06/18 11:28 Tenormin - PO 25 mg BID LISA Administration Atorvastatin Calcium 20 mg 10/06/18 22:00 Lipitor - PO HS LISA Folic Acid 1 mg 10/06/18 10:00 10/06/18 11:28 Folic Acid - PO 1 mg DAILY LISA Administration Pantoprazole Sodium 20 mg 10/06/18 10:00 10/06/18 11:28 Protonix - PO 20 mg DAILY LISA Administration Prednisone 5 mg 10/06/18 10:00 10/06/18 11:28 Deltasone - PO 5 mg DAILY LISA Administration ASSESSMENT/PLAN: 81 yo F PMH of scoliosis, cervical spine surgery, left lung surgery, cholecystectomy, Chronic respiratory failure, COPD (O2-dependent on 3L NC), diastolic CHF, A-fib (not on AC), CAD, HTN, Pulmonary HTN, sarcoidosis, hemorrhagic cystitis (s/p cystoscopy 08/11, s/p b/l nephrostomy tube placement 08/16) admitted with one week cough. UTI -UA with 3+ LE, 154 WBCs -recent instrumentation with nephrostomy tubes in place -ID consulted, will await recommendations for further treatment -ESBL positive on last admission -Serum WBC wnl, afebrile, Tmax 100.3 resolved Cough -Pt well known to be, has had chronic cough likely secondary to her COPD and extensive lung history -Pt states she is unsure why she was brought to the hospital today and states that her cough is better than it has been Diastolic CHF -Currently stable, does not seem to be fluid overloaded at this time -Cardiology input appreciated -Recommended continuation of home regimen -continue home aldactone COPD on 3L home O2 -Stable on home meds, not in acute exacerbation -Continue home regimen Hemorhagic Cystitis s/p b/l nephrostomy tubes -Nephrostomy tubes in place draining clear urine -Will discuss with IR if they have any input or recommended procedures while she is here A-fib -not on AC -atenolol 25 mg PO BID DVT Prophylaxis -SCDs FEN -Fluids: none -Electrolytes: No electrolyte abnormalities, BMP in AM -Nutrition: Sodium Controlled Diet Disposition Med/Surg Visit type - Emergency Visit Emergency Visit: Yes ED Registration Date: 10/05/18 Care time: The patient presented to the Emergency Department on the above date and was hospitalized for further evaluation of their emergent condition. - New Patient This patient is new to me today: Yes Date on this admission: 10/06/18 - Critical Care Critical Care patient: No
[2018-10-06 14:01] VITALS: BMI 31.4
[2018-10-06] MEDS: POTASSIUM CHLORIDE ORAL LIQUID 20 MEQ/15 ML PO SCH ×2 (14:30→18:00)
[2018-10-06] MEDS ORDERED: ALBUTEROL SO4 8 GM HFA INHALER IH PRN ×3 (15:55→16:06)
--- NOTE | 2018-10-06 17:07 | PN ---
Progress Note (short form) - Note Progress Note: ID Consult dictated R/O HCAP ?UTI/ Sepsis secondary to UTI Obstructive uropathy s/p bilateral PCN Pending sepsis workup, empiric zosyn/ zithromax
[2018-10-06] MEDS ORDERED: PIPERACILLIN/TAZOBACTAM 2.25 GM VIAL IVPB ONE (17:39)
[2018-10-06] MEDS ORDERED: DEXTROSE 5%-WATER - 50 ML IVPB ONE (17:39)
[2018-10-06] MEDS ORDERED: POTASSIUM CHLORIDE TABS 20 MEQ TABLET.ER (FP) PO ONE (17:45)
--- NOTE | 2018-10-06 17:59 | CONS ---
DATE OF CONSULTATION: INFECTIOUS DISEASE CONSULTATION HISTORY OF PRESENT ILLNESS: The patient is an 81-year-old female who is evaluated for sepsis. She was admitted to the hospital with reports of worsening cough and right flank pain at the [facility]. She was taken to the emergency room where her temperature was noted to be 100.3. A CAT scan of the abdomen and pelvis shows a right pleural effusion with possible basilar consolidation. Urinalysis showed 154 white cells. She was empirically treated with Zithromax and Zosyn for possible healthcare acquired pneumonia. At the present time she is awake, however she is moderately confused. She complains of right flank pain and dry cough. Denies any sputum production. No complaints of dysuria or hematuria. Patient has bilateral percutaneous nephrostomies in place. Patient has had multiple recent hospitalizations to [facility] for acute exacerbation of COPD and CHF. She had undergone a cystoscopy for evaluation of gross hematuria. Postprocedure, she developed methicillin-sensitive Staphylococcus aureus bacteremia presumably secondary to the urinary tract. She completed the 28-day course of the cephazolin. She required bilateral percutaneous nephrostomies for obstructive uropathy. They are still in place. PAST MEDICAL HISTORY: Positive for COPD, congestive heart failure, coronary artery disease, hypertension, pulmonary hypertension, sarcoidosis, cholecystectomy and hysterectomy. ALLERGIES: No known allergies. MEDICATION: Include Lipitor, folic acid, Atrovent, Proventil, Symbicort, omeprazole, Tenormin, Aldactone. SOCIAL HISTORY: She presently [facility] in a [facility]. No active tobacco or alcohol use. SYSTEMS REVIEW: Neurologic: No loss of consciousness, seizure activity, focal weakness. Cardiac: Negative for chest pain or palpitations. Respiratory: As per HPI. Gastrointestinal: Negative vomiting or diarrhea. Genitourinary: As per HPI. LABORATORY DATA: White count 6.6, hematocrit 30.1, platelet count 223, BUN 7, creatinine 0.6. Urinalysis 154 white cells. Lactic acid 2.3. Liver enzymes normal. PHYSICAL EXAMINATION: General: On exam, she is awake, appears slightly confused, in no acute distress. Vital signs: Temperature 97.8, T-max 100.3, blood pressure 132/83, pulse 94 regular, respirations 20 per minute. HEENT: Sclerae anicteric. Cardiovascular: Heart sounds S1, S2. Lungs: Decreased breath sounds at the bases bilaterally. Abdomen: Soft, no tenderness elicited. Bilateral percutaneous nephrostomy tubes are in place with clear urine draining into the bag. Extremities: Negative for edema. IMPRESSION: 1. Rule out healthcare-acquired pneumonia. 2. Urinary tract infection, possible sepsis secondary to urinary tract infection. 3. Obstructive uropathy status post bilateral percutaneous nephrostomies. Avoid sepsis workup. Empiric antibiotic coverage for above with Zosyn and Zithromax. Further recommendations pending sepsis workup. Will follow. Thank you for the kind referral. LUIS E MAYA M.D. [id number]
[2018-10-06] MEDS: PIPERACILLIN/TAZOB 2.25 GM 2.25 GM in DEXTROSE 5%-WATER - 50 ML IVPB SCH (18:02)
--- NOTE | 2018-10-06 18:07 | PN ---
Teaching Attending Note Name of Resident: Brennan Gifford ATTENDING PHYSICIAN STATEMENT I saw and evaluated the patient. I reviewed the resident's note and discussed the case with the resident. I agree with the resident's findings and plan as documented with exceptions below. SUBJECTIVE: Patient seen and examined. Denies any dyspnea, nausea, vomiting, abdominal pain or urinary symptoms or back pain currently. OBJECTIVE: Vital Signs Period Temp Pulse Resp BP Sys/Garza Pulse Ox Last 24 Hr 97.8 F-98.6 F 75-110 17-20 122-132/66-83 96-100 Intake & Output 10/03/18 10/04/18 10/05/18 10/06/18 23:59 23:59 23:59 23:59 Intake Total 150 Balance 150 Weight 167 lb 172 lb General: sitting in bed in no acute distress Chest: bibasilar rales, good air entry bilateral, no wheezing Abdomen:soft, NT, bilateral nephrostomy with clear draining urine, ND, positive bowel sounds Extremities: trace pedal edema Home Medications Medication Instructions Recorded Atorvastatin Ca [Lipitor] 20 mg PO HS 04/16/18 Folic Acid 1 mg PO DAILY 04/16/18 Ipratropium [place] [Atrovent Hfa] 1 neb NEB Q4H PRN 04/17/18 Albuterol Sulfate [Proventil HFA 1 - 2 inh PO Q4H PRN 06/20/18 Inhaler -] Budesonide/Formeterol Fumarate 1 inh PO BID 06/20/18 [SYMBICORT 160/4.5mcg -] Omeprazole 20 mg PO DAILY 06/20/18 Atenolol [Tenormin] 25 mg PO BID #30 tablet 06/23/18 Polyethylene Glycol 3350 [Miralax 17 gm PO BID bottle 06/23/18 119 gm Btl -] Spironolactone [Aldactone] 25 mg PO DAILY #2 tablet 09/11/18 predniSONE [Deltasone -] 5 mg PO DAILY #7 tablet 09/11/18 Acetaminophen [Tylenol] 650 mg PO Q6H PRN 10/06/18 Escitalopram Oxalate [Lexapro -] 10 mg PO DAILY 10/06/18 Active Medications Acetaminophen (Tylenol -) 650 mg PO Q6H PRN PRN Reason: PAIN 1-3 Albuterol Sulfate (Ventolin 0.083% Nebulizer Soln -) 1 amp NEB Q4H PRN PRN Reason: SHORT OF BREATH/WHEEZING Albuterol Sulfate (Ventolin Hfa Inhaler -) 2 puff IH Q4H PRN PRN Reason: SHORTNESS OF BREATH Albuterol/Ipratropium (Duoneb -) 1 amp NEB RQID [facility] Last Admin: 10/06/18 16:22 Dose: 1 amp Atenolol (Tenormin -) 25 mg PO BID [facility] Last Admin: 10/06/18 11:28 Dose: 25 mg Atorvastatin Calcium (Lipitor -) 20 mg PO HS [facility] Folic Acid (Folic Acid -) 1 mg PO DAILY [facility] Last Admin: 10/06/18 11:28 Dose: 1 mg Piperacillin Sod/Tazobactam (Sod 2.25 gm/ Dextrose) 50 mls @ 100 mls/hr IVPB Q8H-IV LISA; Protocol Last Admin: 10/06/18 18:02 Dose: 100 mls/hr Azithromycin 500 mg/ Dextrose 250 mls @ 250 mls/hr IVPB DAILY [facility] Pantoprazole Sodium (Protonix -) 20 mg PO DAILY [facility] Last Admin: 10/06/18 11:28 Dose: 20 mg Prednisone (Deltasone -) 5 mg PO DAILY [facility] Last Admin: 10/06/18 11:28 Dose: 5 mg Laboratory Results - last 24 hr 10/05/18 10/05/18 10/05/18 17:00 17:00 17:00 WBC 5.2 RBC 3.82 Hgb 9.0 L Hct 29.0 L D MCV 75.9 L MCH 23.6 L MCHC 31.1 L RDW 19.0 H Plt Count 208 MPV 9.0 Absolute Neuts (auto) 3.4 Neutrophils % 64.6 Lymphocytes % 25.6 D Monocytes % 7.9 Eosinophils % 1.3 D Basophils % 0.6 Nucleated RBC % 0 PT with INR 15.20 H INR 1.28 H PTT (Actin FS) 35.9 VBG pH POC VBG pCO2 POC VBG pO2 Mixed VBG HCO3 Sodium Potassium Chloride Carbon Dioxide Anion Gap BUN Creatinine Creat Clearance w eGFR Random Glucose Lactic Acid Calcium Phosphorus Magnesium Total Bilirubin AST ALT Alkaline Phosphatase Troponin I B-Natriuretic Peptide Total Protein Albumin Urine Color Yellow Urine Appearance Cloudy Urine pH 7.0 Ur Specific [place] 1.020 Urine Protein 1+ H Urine Glucose (UA) Negative Urine Ketones Negative Urine Blood 2+ H Urine Nitrite Negative Urine Bilirubin Negative Urine Urobilinogen 2.0 H Ur Leukocyte Esterase 3+ H D Urine WBC (Auto) 154 Urine RBC (Auto) 18 Urine Bacteria Rare Urine Mucus Rare 10/05/18 10/05/18 10/05/18 17:00 17:00 17:00 WBC RBC Hgb Hct MCV MCH MCHC RDW Plt Count MPV Absolute Neuts (auto) Neutrophils % Lymphocytes % Monocytes % Eosinophils % Basophils % Nucleated RBC % PT with INR INR PTT (Actin FS) VBG pH 7.26 L POC VBG pCO2 75.0 H* POC VBG pO2 26.0 L Mixed VBG HCO3 32.7 H Sodium 140 Potassium 4.2 Chloride 102 Carbon Dioxide 32 Anion Gap 6 L BUN 8 Creatinine 0.6 Creat Clearance w eGFR > 60 Random Glucose 106 Lactic Acid 2.3 H* Calcium 9.2 Phosphorus Magnesium Total Bilirubin 0.6 AST 13 L ALT 8 L Alkaline Phosphatase 61 Troponin I 0.02 B-Natriuretic Peptide Total Protein 6.3 L Albumin 2.1 L Urine Color Urine Appearance Urine pH Ur Specific [place] Urine Protein Urine Glucose (UA) Urine Ketones Urine Blood Urine Nitrite Urine Bilirubin Urine Urobilinogen Ur Leukocyte Esterase Urine WBC (Auto) Urine RBC (Auto) Urine Bacteria Urine Mucus 10/06/18 10/06/18 06:00 06:00 WBC 6.6 RBC 4.00 Hgb 9.4 L Hct 30.1 L MCV 75.3 L MCH 23.6 L MCHC 31.3 L RDW 18.8 H Plt Count 223 MPV 8.7 Absolute Neuts (auto) 3.3 Neutrophils % 49.7 D Lymphocytes % 37.2 D Monocytes % 11.3 H Eosinophils % 1.2 Basophils % 0.6 Nucleated RBC % 0 PT with INR INR PTT (Actin FS) VBG pH POC VBG pCO2 POC VBG pO2 Mixed VBG HCO3 Sodium 139 Potassium 3.5 Chloride 101 Carbon Dioxide 29 Anion Gap 9 BUN 7 Creatinine 0.6 Creat Clearance w eGFR > 60 Random Glucose 89 Lactic Acid Calcium 9.5 Phosphorus 2.8 Magnesium 1.8 Total Bilirubin 0.7 AST 16 ALT 8 L Alkaline Phosphatase 61 Troponin I B-Natriuretic Peptide 79191.6 H Total Protein 6.7 Albumin 2.3 L Urine Color Urine Appearance Urine pH Ur Specific [place] Urine Protein Urine Glucose (UA) Urine Ketones Urine Blood Urine Nitrite Urine Bilirubin Urine Urobilinogen Ur Leukocyte Esterase Urine WBC (Auto) Urine RBC (Auto) Urine Bacteria Urine Mucus Microbiology 10/05/18 17:00 Blood - Peripheral Venous Blood Culture - Preliminary NO GROWTH OBTAINED AFTER 24 HOURS, INCUBATION TO CONTINUE FOR 4 DAYS. 10/05/18 17:00 Blood - Peripheral Venous Blood Culture - Preliminary NO GROWTH OBTAINED AFTER 24 HOURS, INCUBATION TO CONTINUE FOR 4 DAYS. 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 -Cough, suspect acute diastolic HF exacerbation (in the setting withholding loop diuretics, low suspicion for PNA -Complicated UTI vs asymptomatic bacteruria -Recent haemorrhagic cystitis s/p Cystoscopy 08/11(complicated by hypotension requiring ICU/pressors), b/l nephrostomy tube placement 08/16, -Complicated UTI s/p 2 weeks of cefazolin -Chronic respiratory failure -Oxygen (3L)/steroid dependent COPD -CAD -Pulmonary HTN -Sarcoidosis -Recent coumadin coagulopathy, unclear etiology -Anemia with recent h/o hematochezia Plan: CT chest more concerning for volume overload. BNP noted. Trial with lasix 20 mg IV X 1. Aggressive KCl suppl today. Continue aldactone. Cardiology input noted. Nephrology consult. ID input noted, discussed u/a and CT chest findings. Will hold off on ESBL coverage for now. zosyn/azithromycin day 1, follow up cultures. Nebs prn. Continue home prednisone. Discussed with IR for further plan for nephrostomy tubes. DVTPPX heparin with close monitoring Dispo pending clinical improvement. Plan discussed with patient in detail, all questions answered.
[2018-10-06 18:30] LABS: BASO % 0.8 % (0-2.0); EOS % 0.5 % (0-4.5); HEMATOCRIT 28.8 % (32.4-45.2); HEMOGLOBIN 8.8 GM/dL (10.7-15.3); LYMPH % 25.4 % (8-40); MCH 23.3 pg (25.7-33.7); MCHC 30.6 g/dl (32.0-36.0); MEAN CELL VOLUME 76.2 fl (80-96); MEAN PLT VOLUME 9.2 fl (7.5-11.1); MONO % 7.4 % (3.8-10.2); NEUT % 65.9 % (42.8-82.8); PLATELET COUNT 219 K/MM3 (134-434); RBC 3.78 M/mm3 (3.60-5.2); WHITE BLOOD COUNT 5.5 K/mm3 (4.0-10.0)
--- NOTE | 2018-10-06 18:52 | CONSULT ---
Consult Consult Specialty:: Nephrology Reason for Consultation:: fluid overload - History of Present Illness Chief Complaint: flank pain History of Present Illness: Pt is an 84 year old female with pmhx of CHF, SANAM, bilateral nephrostomy tubes, CAD, COPD, HTH, and a-fib who was sent in for flank pain. She is awake however is not very interactive. She feels that her breathing is improved. She does complains of a cough. She has bilateral nephrostomies. She has not followed with urology. She is a [place] resident. 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) Cardio/Vascular: Yes: AFIB, CHF, HTN, Hyperlipdemia, Pulmonary Hypertension, Other (Sarcoidosis) Pulmonary: Yes: Asthma, COPD Renal/: Yes: Hematuria Psych: Yes: Depression - Past Surgical History Past Surgical History: Yes: Cholecystectomy, Hysterectomy - Alcohol/Substance Use Hx Alcohol Use: No History of Substance Use: reports: None - Smoking History Smoking history: Unknown if ever smoked Have you smoked in the past 12 months: No Aproximately how many cigarettes per day: 0 - Social History Usual Living Arrangement: Other (most recently has been at [facility], and since developing pain has been ambulating with ) History of Recent Travel: No Home Medications - Allergies Allergies/Adverse Reactions: Allergies Allergy/AdvReac Type Severity Reaction Status Date / Time No Known Allergies Allergy Verified 06/19/18 21:10 - Home Medications Home Medications: Ambulatory Orders Atorvastatin Ca [Lipitor] 20 mg PO HS 04/16/18 Folic Acid 1 mg PO DAILY 04/16/18 Ipratropium [place] [Atrovent Hfa] 1 neb NEB Q4H PRN 04/17/18 Albuterol Sulfate [Proventil HFA Inhaler -] 1 - 2 inh PO Q4H PRN 06/20/18 Budesonide/Formeterol Fumarate [SYMBICORT 160/4.5mcg -] 1 inh PO BID 06/20/18 Omeprazole 20 mg PO DAILY 06/20/18 Atenolol [Tenormin] 25 mg PO BID #30 tablet 06/23/18 Polyethylene Glycol 3350 [Miralax 119 gm Btl -] 17 gm PO BID bottle 06/23/18 Spironolactone [Aldactone] 25 mg PO DAILY #2 tablet 09/11/18 predniSONE [Deltasone -] 5 mg PO DAILY #7 tablet 09/11/18 Acetaminophen [Tylenol] 650 mg PO Q6H PRN 10/06/18 Escitalopram Oxalate [Lexapro -] 10 mg PO DAILY 10/06/18 Family Disease History - Family Disease History Family Disease History: Heart Disease: Father, Mother, Other: Sister (Colon cancer) Review of Systems - Review of Systems Constitutional: reports: Chills, Malaise. denies: Fever Eyes: reports: No Symptoms HENT: reports: No Symptoms Neck: reports: No Symptoms Cardiovascular: reports: Edema, Shortness of Breath Respiratory: reports: Cough, SOB, SOB on Exertion Gastrointestinal: reports: No Symptoms Genitourinary: reports: Flank Pain, Other (bilateral nephrostomy tubes) Musculoskeletal: reports: Muscle Weakness Neurological: reports: No Symptoms Endocrine: reports: No Symptoms Hematology/Lymphatic: reports: No Symptoms Psychiatric: reports: No Symptoms Physical Exam Vital Signs: Vital Signs Temperature 97.8 F 10/06/18 14:40 Pulse Rate 94 H 10/06/18 14:40 Respiratory Rate 20 10/06/18 14:40 Blood Pressure 132/83 10/06/18 14:40 O2 Sat by Pulse Oximetry (%) 97 10/06/18 14:05 Constitutional: Yes: Calm Eyes: Yes: Conjunctiva Clear HENT: Yes: Atraumatic Cardiovascular: Yes: S1, S2 Respiratory: Yes: On Nasal O2, Rhonchi Gastrointestinal: Yes: Soft Renal/: Yes: Other (bilateral nephrostomy tubes) Musculoskeletal: Yes: Muscle Weakness Edema: Yes Edema: LLE: Trace, RLE: Trace Neurological: Yes: Oriented Psychiatric: Yes: Oriented Labs: CBC, BMP 10/06/18 17:30 10/06/18 06:00 Laboratory Tests 10/05/18 10/06/18 10/06/18 17:00 06:00 06:00 Hgb 9.4 L Sodium 139 Potassium 4.2 3.5 Creatinine 0.6 Creat Clearance w eGFR > 60 B-Natriuretic Peptide 09456.6 H 10/06/18 17:30 Hgb 8.8 L Sodium Potassium Creatinine Creat Clearance w eGFR B-Natriuretic Peptide Imaging - Results Chest X-ray: Report Reviewed Cat Scan: Report Reviewed Problem List - Problems (1) Acute CHF (congestive heart failure) Code(s): I50.9 - HEART FAILURE, UNSPECIFIED (2) CHF (congestive heart failure) Code(s): I50.9 - HEART FAILURE, UNSPECIFIED (3) COPD (chronic obstructive pulmonary disease) Code(s): J44.9 - CHRONIC OBSTRUCTIVE PULMONARY DISEASE, UNSPECIFIED Qualifiers: COPD type: COPD with acute exacerbation Qualified Code(s): J44.1 - Chronic obstructive pulmonary disease with (acute) exacerbation Assessment/Plan Current Medications Generic Name Dose Route Start Last Admin Trade Name Freq PRN Reason Stop Dose Admin Acetaminophen 650 mg 10/06/18 15:55 Tylenol - PO Q6H PRN PAIN 1-3 Albuterol Sulfate 1 amp 10/06/18 00:01 Ventolin 0.083% Nebulizer Soln - NEB Q4H PRN SHORT OF BREATH/WHEEZING Albuterol Sulfate 2 puff 10/06/18 16:06 Ventolin Hfa Inhaler - IH Q4H PRN SHORTNESS OF BREATH Albuterol/Ipratropium 1 amp 10/06/18 08:00 10/06/18 16:22 Duoneb - NEB 1 amp RQID LISA Administration Atenolol 25 mg 10/06/18 10:00 10/06/18 11:28 Tenormin - PO 25 mg BID LISA Administration Atorvastatin Calcium 20 mg 10/06/18 22:00 Lipitor - PO HS LISA Folic Acid 1 mg 10/06/18 10:00 10/06/18 11:28 Folic Acid - PO 1 mg DAILY LISA Administration Heparin Sodium (Porcine) 5,000 unit 10/06/18 22:00 Heparin - SQ TID LISA Piperacillin Sod/Tazobactam 50 mls @ 100 mls/hr 10/06/18 18:00 10/06/18 18:02 Sod 2.25 gm/ Dextrose IVPB 100 mls/hr Q8H-IV LISA Administration Protocol Azithromycin 500 mg/ Dextrose 250 mls @ 250 mls/hr 10/07/18 10:00 IVPB DAILY LISA Pantoprazole Sodium 20 mg 10/06/18 10:00 10/06/18 11:28 Protonix - PO 20 mg DAILY LISA Administration Prednisone 5 mg 10/06/18 10:00 10/06/18 11:28 Deltasone - PO 5 mg DAILY LISA Administration Impression 1. hx hypokalemia 2. dyspnea 3. pulm HTN 4. CHF 5. hx hematuria 6. sarcoid 7. COPD 8. a-fib 9. hx of HTN 10. hyperlipidemia Plan - restart spironolactone - monitor volumes status - repeat labs in am - urology follow up for nephrostomy tubes - follow cultures - cont abx - will follow
[2018-10-06] MEDS: HEPARIN NA (PORCINE) 5,000 UNITS/ML 1ML VIAL SQ SCH (21:33)
[2018-10-06] MEDS: ATORVASTATIN CA 20 MG TABLET (FP) PO SCH (21:33)
[2018-10-07] MEDS ORDERED: DEXTROSE 5%-WATER - 50 ML IVPB ONE ×3 (01:01→16:47)
[2018-10-07] MEDS ORDERED: PIPERACILLIN/TAZOBACTAM 2.25 GM VIAL IVPB ONE ×3 (01:01→16:47)
[2018-10-07] MEDS: PIPERACILLIN/TAZOB 2.25 GM 2.25 GM in DEXTROSE 5%-WATER - 50 ML IVPB SCH ×3 (02:10→17:26)
[2018-10-07] MEDS: HEPARIN NA (PORCINE) 5,000 UNITS/ML 1ML VIAL SQ SCH ×3 (06:23→22:05)
[2018-10-07] MEDS: ALBUTEROL SO4 2.5/IPRATROPIUM 0.5 INH SOL 3 ML VIAL.NEB. NEB SCH ×4 (08:53→20:02)
--- NOTE | 2018-10-07 09:06 | PN ---
Physical Exam: SUBJECTIVE: Patient seen and examined this AM, she states no overnight complaints other than being a little cold at times. She does endorse right flank pain, but otherwise states she is at her baseline. OBJECTIVE: Vital Signs Period Temp Pulse Resp BP Sys/Garza Pulse Ox Last 24 Hr 97.8 F-98.6 F 77-110 18-22 116-132/55-85 97-99 GENERAL: Oriented to person, place, and time, No acute distress HEAD: Normocephalic, atraumatic. EYES: PERRL, no scleral icterus EARS, NOSE, THROAT: Moist mucous membranes. NECK: supple without lymphadenopathy LUNGS: Diffuse rhonchi with decreased air entry at bases, expiratory wheezes HEART: Irregularly irregular, regular rate, normal S1 and S2 without murmur ABDOMEN: Soft, tender to palpation, normoactive bowel sounds, nephrostomy tubes in place with clear urine draining EXTREMITIES: 2+ pulses, warm, well-perfused. Edema resolved NEUROLOGICAL: Cranial nerves II-XII grossly intact. Laboratory Results - last 24 hr 10/06/18 10/06/18 10/06/18 06:00 17:30 18:34 WBC 5.5 RBC 3.78 Hgb 8.8 L Hct 28.8 L MCV 76.2 L MCH 23.3 L MCHC 30.6 L RDW 19.0 H Plt Count 219 MPV 9.2 Absolute Neuts (auto) 3.6 Neutrophils % 65.9 D Lymphocytes % 25.4 D Monocytes % 7.4 Eosinophils % 0.5 Basophils % 0.8 Nucleated RBC % 0 Sodium 139 Potassium 3.5 Chloride 101 Carbon Dioxide 29 Anion Gap 9 BUN 7 Creatinine 0.6 Creat Clearance w eGFR > 60 Random Glucose 89 Lactic Acid Calcium 9.5 Phosphorus 2.8 Magnesium 1.8 Total Bilirubin 0.7 AST 16 ALT 8 L Alkaline Phosphatase 61 B-Natriuretic Peptide 59684.6 H Total Protein 6.7 Albumin 2.3 L Influenza A (Rapid) Negative Influenza B (Rapid) Negative 10/06/18 21:30 WBC RBC Hgb Hct MCV MCH MCHC RDW Plt Count MPV Absolute Neuts (auto) Neutrophils % Lymphocytes % Monocytes % Eosinophils % Basophils % Nucleated RBC % Sodium Potassium Chloride Carbon Dioxide Anion Gap BUN Creatinine Creat Clearance w eGFR Random Glucose Lactic Acid 1.1 Calcium Phosphorus Magnesium Total Bilirubin AST ALT Alkaline Phosphatase B-Natriuretic Peptide Total Protein Albumin Influenza A (Rapid) Influenza B (Rapid) Active Medications Generic Name Dose Route Start Last Admin Trade Name Freq PRN Reason Stop Dose Admin Acetaminophen 650 mg 10/06/18 15:55 Tylenol - PO Q6H PRN PAIN 1-3 Albuterol Sulfate 1 amp 10/06/18 00:01 Ventolin 0.083% Nebulizer Soln - NEB Q4H PRN SHORT OF BREATH/WHEEZING Albuterol Sulfate 2 puff 10/06/18 16:06 Ventolin Hfa Inhaler - IH Q4H PRN SHORTNESS OF BREATH Albuterol/Ipratropium 1 amp 10/06/18 08:00 10/07/18 08:53 Duoneb - NEB 1 amp RQID LISA Administration Atenolol 25 mg 10/06/18 10:00 10/06/18 21:33 Tenormin - PO 25 mg BID LISA Administration Atorvastatin Calcium 20 mg 10/06/18 22:00 10/06/18 21:33 Lipitor - PO 20 mg HS LISA Administration Folic Acid 1 mg 10/06/18 10:00 10/06/18 11:28 Folic Acid - PO 1 mg DAILY LISA Administration Heparin Sodium (Porcine) 5,000 unit 10/06/18 22:00 10/07/18 06:23 Heparin - SQ 5,000 unit TID LISA Administration Piperacillin Sod/Tazobactam 50 mls @ 100 mls/hr 10/06/18 18:00 10/07/18 02:10 Sod 2.25 gm/ Dextrose IVPB 100 mls/hr Q8H-IV LISA Administration Protocol Azithromycin 500 mg in 250 mls @ 250 mls/hr 10/07/18 10:00 Zithromax 500mg Ivpb (Pre-Docked) IVPB DAILY [facility] Pantoprazole Sodium 20 mg 10/06/18 10:00 10/06/18 11:28 Protonix - PO 20 mg DAILY LISA Administration Prednisone 5 mg 10/06/18 10:00 10/06/18 11:28 Deltasone - PO 5 mg DAILY LISA Administration Spironolactone 25 mg 10/07/18 10:00 Aldactone - PO DAILY [facility] ASSESSMENT/PLAN: 81 yo F PMH of scoliosis, cervical spine surgery, left lung surgery, cholecystectomy, Chronic respiratory failure, COPD (O2-dependent on 3L NC), diastolic CHF, A-fib (not on AC), CAD, HTN, Pulmonary HTN, sarcoidosis, hemorrhagic cystitis (s/p cystoscopy 08/11, s/p b/l nephrostomy tube placement 08/16) admitted with one week cough. UTI -UA with 3+ LE, 154 WBCs -recent instrumentation with nephrostomy tubes in place -ID consulted, Zosyn for now -Culture pending, prelim Lactose fermenting Gram neg Bacilli -ESBL positive on last admission -Serum WBC wnl, afebrile, Tmax 100.3 resolved Cough -Pt well known to be, has had chronic cough likely secondary to her COPD and extensive lung history -Pt states she is unsure why she was brought to the hospital today and states that her cough is better than it has been -Azithromycin for now as per ID Diastolic CHF -Currently stable, does not seem to be fluid overloaded at this time -Cardiology input appreciated -Recommended continuation of home regimen -continue home aldactone -Lasix 20 mg IV given yesterday with 2L output, Lasix 20 mg IV once today as well COPD on 3L home O2 -Stable on home meds, not in acute exacerbation -Continue home regimen -Prednisone 5mg PO Daily -DuoNebs RQID -Albuterol NEBs PRN, not tolerating neb mask very well -Albuterol IH PRN Q4 Hemorhagic Cystitis s/p b/l nephrostomy tubes -Nephrostomy tubes in place draining clear urine -Will discuss with IR/Urology if they have any input or recommended procedures while she is here A-fib -not on AC -atenolol 25 mg PO BID DVT Prophylaxis -SCDs FEN -Fluids: none -Electrolytes: HypoMg, repleting, BMP in AM -Nutrition: Sodium Controlled Diet Disposition Med/Surg Visit type - Emergency Visit Emergency Visit: Yes ED Registration Date: 10/05/18 Care time: The patient presented to the Emergency Department on the above date and was hospitalized for further evaluation of their emergent condition. - New Patient This patient is new to me today: No - Critical Care Critical Care patient: No
[2018-10-07] MEDS: FOLIC ACID 1 MG TABLET (FP) PO SCH (09:39)
[2018-10-07] MEDS: predniSONE 5 MG TABLET (UD) PO SCH (09:39)
[2018-10-07] MEDS: AZITHROMYCIN IVPB 500 MG/250 ML BAG IVPB SCH (09:40)
[2018-10-07] MEDS: PANTOPRAZOLE 20 MG TABLET (FP) PO SCH (09:40)
[2018-10-07] MEDS: ATENOLOL 25 MG TABLET (FP) PO SCH ×2 (09:40→22:05)
[2018-10-07] MEDS: SPIRONOLACTONE 25 MG TABLET (FP) PO SCH (09:40)
[2018-10-07 10:17] LABS: ANION GAP 6 MMOL/L (8-16); BLOOD UREA NITROGEN 7 mg/dL (7-18); CALCIUM 9.5 mg/dL (8.5-10.1); CHLORIDE 103 mmol/L (98-107); CO2 33 mmol/L (21-32); CREATININE 0.7 mg/dL (0.55-1.3); GLUCOSE,RANDOM 96 mg/dL (74-106); MAGNESIUM 1.5 mg/dL (1.8-2.4); PHOSPHOROUS 3.5 mg/dL (2.5-4.9); POTASSIUM 4.1 mmol/L (3.5-5.1); SODIUM 142 mmol/L (136-145)
[2018-10-07] MEDS ORDERED: MAGNESIUM SULF 50% (8.12 MEQ/2 ML-1 GM VIAL) IVPB ONE (11:30)
--- NOTE | 2018-10-07 11:40 | PN ---
Progress Note, Physician History of Present Illness: Awake, seated in bed C/O R flank pain Appears slightly dyspneic at rest + cough Temps down Afebrile WBC WNL Urine c/s GNR x2 - Current Medication List Current Medications: Active Medications Acetaminophen (Tylenol -) 650 mg PO Q6H PRN PRN Reason: PAIN 1-3 Albuterol Sulfate (Ventolin 0.083% Nebulizer Soln -) 1 amp NEB Q4H PRN PRN Reason: SHORT OF BREATH/WHEEZING Albuterol Sulfate (Ventolin Hfa Inhaler -) 2 puff IH Q4H PRN PRN Reason: SHORTNESS OF BREATH Albuterol/Ipratropium (Duoneb -) 1 amp NEB RQID [facility] Last Admin: 10/07/18 08:53 Dose: 1 amp Atenolol (Tenormin -) 25 mg PO BID [facility] Last Admin: 10/07/18 09:40 Dose: 25 mg Atorvastatin Calcium (Lipitor -) 20 mg PO HS [facility] Last Admin: 10/06/18 21:33 Dose: 20 mg Folic Acid (Folic Acid -) 1 mg PO DAILY [facility] Last Admin: 10/07/18 09:39 Dose: 1 mg Heparin Sodium (Porcine) (Heparin -) 5,000 unit SQ TID [facility] Last Admin: 10/07/18 06:23 Dose: 5,000 unit Piperacillin Sod/Tazobactam (Sod 2.25 gm/ Dextrose) 50 mls @ 100 mls/hr IVPB Q8H-IV LISA; Protocol Last Admin: 10/07/18 09:40 Dose: 100 mls/hr Azithromycin (Zithromax 500mg Ivpb (Pre-Docked)) 500 mg in 250 mls @ 250 mls/ hr IVPB DAILY [facility] Last Admin: 10/07/18 09:40 Dose: 250 mls/hr Pantoprazole Sodium (Protonix -) 20 mg PO DAILY [facility] Last Admin: 10/07/18 09:40 Dose: 20 mg Prednisone (Deltasone -) 5 mg PO DAILY [facility] Last Admin: 10/07/18 09:39 Dose: 5 mg Spironolactone (Aldactone -) 25 mg PO DAILY [facility] Last Admin: 10/07/18 09:40 Dose: 25 mg - Objective Vital Signs: Vital Signs Temperature 98.7 F 10/07/18 09:38 Pulse Rate 104 H 12/22/18 09:38 Respiratory Rate 22 H 10/07/18 09:38 Blood Pressure 106/84 10/07/18 09:38 O2 Sat by Pulse Oximetry (%) 99 10/06/18 21:00 Constitutional: Yes: No Distress Eyes: Yes: Conjunctiva Clear Cardiovascular: Yes: Regular Rate and Rhythm, S1, S2 Respiratory: Yes: Other (+ bilateral rhonchi and crepitations at bases bilaterally) Genitourinary: Yes: CVA Tenderness - Right, Other (+ bilateral PCN urine concentrated but clear) Labs: CBC, BMP 10/06/18 17:30 10/07/18 08:00 INR, PTT INR 1.28 (0.83-1.09) H 10/05/18 17:00 Assessment/Plan Possible HCAP UTI R/O sepsis secondary to UTI Obstructive uropathy S/P bilateral PCN Await c/s Continue zosyn/ zithromax
[2018-10-07] MEDS ORDERED: FUROSEMIDE 40 MG/4 ML INJECTABLE VIAL IVPUSH ONE (12:15)
--- NOTE | 2018-10-07 12:25 | PN ---
Teaching Attending Note Name of Resident: Brennan Gifford ATTENDING PHYSICIAN STATEMENT I saw and evaluated the patient. I reviewed the resident's note and discussed the case with the resident. I agree with the resident's findings and plan as documented with exceptions below. SUBJECTIVE: Patient seen and examined. breathing/cough improved. Currently denies any flank pain or urinary symptoms. Overall feels better. OBJECTIVE: Vital Signs Period Temp Pulse Resp BP Sys/Garza Pulse Ox Last 24 Hr 97.8 F-98.7 F 77-110 18-22 106-132/55-85 97-99 Intake & Output 10/04/18 10/05/18 10/06/18 10/07/18 23:59 23:59 23:59 23:59 Intake Total 300 Output Total 2150 250 Balance -1850 -250 Weight 167 lb 172 lb General: sitting in bed in no acute distres Chest: bibasilar fine rales, improved air entry Abdomen:soft, NT, ND, positive bowel sounds Extremities: trace pedal edema Active Medications Acetaminophen (Tylenol -) 650 mg PO Q6H PRN PRN Reason: PAIN 1-3 Albuterol Sulfate (Ventolin 0.083% Nebulizer Soln -) 1 amp NEB Q4H PRN PRN Reason: SHORT OF BREATH/WHEEZING Albuterol Sulfate (Ventolin Hfa Inhaler -) 2 puff IH Q4H PRN PRN Reason: SHORTNESS OF BREATH Albuterol/Ipratropium (Duoneb -) 1 amp NEB RQID [facility] Last Admin: 10/07/18 12:24 Dose: 1 amp Atenolol (Tenormin -) 25 mg PO BID [facility] Last Admin: 10/07/18 09:40 Dose: 25 mg Atorvastatin Calcium (Lipitor -) 20 mg PO HS [facility] Last Admin: 10/06/18 21:33 Dose: 20 mg Folic Acid (Folic Acid -) 1 mg PO DAILY [facility] Last Admin: 10/07/18 09:39 Dose: 1 mg Heparin Sodium (Porcine) (Heparin -) 5,000 unit SQ TID [facility] Last Admin: 10/07/18 06:23 Dose: 5,000 unit Piperacillin Sod/Tazobactam (Sod 2.25 gm/ Dextrose) 50 mls @ 100 mls/hr IVPB Q8H-IV [facility]; Protocol Last Admin: 10/07/18 09:40 Dose: 100 mls/hr Azithromycin (Zithromax 500mg Ivpb (Pre-Docked)) 500 mg in 250 mls @ 250 mls/ hr IVPB DAILY [facility] Last Admin: 10/07/18 09:40 Dose: 250 mls/hr Magnesium Oxide (Mag-Ox -) 800 mg PO DAILY [facility] Stop: 10/11/18 10:01 Pantoprazole Sodium (Protonix -) 20 mg PO DAILY [facility] Last Admin: 10/07/18 09:40 Dose: 20 mg Prednisone (Deltasone -) 5 mg PO DAILY [facility] Last Admin: 10/07/18 09:39 Dose: 5 mg Spironolactone (Aldactone -) 25 mg PO DAILY [facility] Last Admin: 10/07/18 09:40 Dose: 25 mg Laboratory Results - last 24 hr 10/06/18 10/06/18 10/06/18 17:30 18:34 21:30 WBC 5.5 RBC 3.78 Hgb 8.8 L Hct 28.8 L MCV 76.2 L MCH 23.3 L MCHC 30.6 L RDW 19.0 H Plt Count 219 MPV 9.2 Absolute Neuts (auto) 3.6 Neutrophils % 65.9 D Lymphocytes % 25.4 D Monocytes % 7.4 Eosinophils % 0.5 Basophils % 0.8 Nucleated RBC % 0 Sodium Potassium Chloride Carbon Dioxide Anion Gap BUN Creatinine Creat Clearance w eGFR Random Glucose Lactic Acid 1.1 Calcium Phosphorus Magnesium Influenza A (Rapid) Negative Influenza B (Rapid) Negative 10/07/18 08:00 WBC RBC Hgb Hct MCV MCH MCHC RDW Plt Count MPV Absolute Neuts (auto) Neutrophils % Lymphocytes % Monocytes % Eosinophils % Basophils % Nucleated RBC % Sodium 142 Potassium 4.1 Chloride 103 Carbon Dioxide 33 H Anion Gap 6 L BUN 7 Creatinine 0.7 Creat Clearance w eGFR > 60 Random Glucose 96 Lactic Acid Calcium 9.5 Phosphorus 3.5 Magnesium 1.5 L Influenza A (Rapid) Influenza B (Rapid) ASSESSMENT AND PLAN: 81 yof with PMHx of Chronic respiratory failure, 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 -Cough, suspect acute diastolic HF exacerbation (in the setting withholding loop diuretics, low suspicion for PNA -Complicated UTI vs asymptomatic bacteruria -Recent haemorrhagic cystitis s/p Cystoscopy 08/11(complicated by hypotension requiring ICU/pressors), b/l nephrostomy tube placement 08/16, -Complicated UTI s/p 2 weeks of cefazolin -Chronic respiratory failure -Oxygen (3L)/steroid dependent COPD -CAD -Pulmonary HTN -Sarcoidosis -Recent coumadin coagulopathy, unclear etiology -Anemia with recent h/o hematochezia Plan: CT chest more concerning for volume overload. BNP noted. responded well to lasix, additional 20 mg IV x 1. Strict I/Os, daily weights. Continue aldactone. Cardiology/renal input noted. zosyn/azithromycin day 2, follow up urine cultures. Nebs prn. Continue home prednisone. Discussed with IR for further plan for nephrostomy tubes. Follow up. DVTPPX heparin with close monitoring Dispo pending clinical improvement. Plan discussed with patient and nursing in detail, all questions answered.
[2018-10-07] MEDS: MAGNESIUM OXIDE 400 MG TABLET (FP) PO SCH (12:51)
--- NOTE | 2018-10-07 13:06 | PN ---
Progress Note (short form) - Note Progress Note: - Consultation Consultation Note: Chief Complaint: right flank pain s: cough and sob improving. no chest pain, palps, dizziness, lightheadedness Current Medications Acetaminophen (Tylenol -) 650 mg PO Q6H PRN PRN Reason: PAIN 1-3 Albuterol Sulfate (Ventolin 0.083% Nebulizer Soln -) 1 amp NEB Q4H PRN PRN Reason: SHORT OF BREATH/WHEEZING Albuterol Sulfate (Ventolin Hfa Inhaler -) 2 puff IH Q4H PRN PRN Reason: SHORTNESS OF BREATH Albuterol/Ipratropium (Duoneb -) 1 amp NEB RQID [facility] Last Admin: 10/07/18 12:24 Dose: 1 amp Atenolol (Tenormin -) 25 mg PO BID [facility] Last Admin: 10/07/18 09:40 Dose: 25 mg Atorvastatin Calcium (Lipitor -) 20 mg PO HS [facility] Last Admin: 10/06/18 21:33 Dose: 20 mg Folic Acid (Folic Acid -) 1 mg PO DAILY [facility] Last Admin: 10/07/18 09:39 Dose: 1 mg Heparin Sodium (Porcine) (Heparin -) 5,000 unit SQ TID [facility] Last Admin: 10/07/18 06:23 Dose: 5,000 unit Piperacillin Sod/Tazobactam (Sod 2.25 gm/ Dextrose) 50 mls @ 100 mls/hr IVPB Q8H-IV [facility]; Protocol Last Admin: 10/07/18 09:40 Dose: 100 mls/hr Azithromycin (Zithromax 500mg Ivpb (Pre-Docked)) 500 mg in 250 mls @ 250 mls/ hr IVPB DAILY [facility] Last Admin: 10/07/18 09:40 Dose: 250 mls/hr Magnesium Oxide (Mag-Ox -) 800 mg PO DAILY [facility] Stop: 10/11/18 10:01 Pantoprazole Sodium (Protonix -) 20 mg PO DAILY [facility] Last Admin: 10/07/18 09:40 Dose: 20 mg Prednisone (Deltasone -) 5 mg PO DAILY [facility] Last Admin: 10/07/18 09:39 Dose: 5 mg Spironolactone (Aldactone -) 25 mg PO DAILY [facility] Last Admin: 10/07/18 09:40 Dose: 25 mg Vital Signs: Vital Signs Period Temp Pulse Resp BP Sys/Garza Pulse Ox Last 24 Hr 97.8 F-98.7 F 77-110 18-22 106-132/55-85 97-99 Constitutional: Yes: Well Nourished, No Distress Eyes: Yes: Conjunctiva Clear HENT: Yes: Atraumatic, Normocephalic Neck: Yes: Supple, Trachea Midline Respiratory: Yes: Regular, rales at bases Gastrointestinal: Yes: Normal Bowel Sounds, Soft Cardiovascular: Yes: Pulse Irregular JVD: no Heart Sounds: Yes: S1, S2 Edema: No Peripheral Pulses WNL: Yes Peripheral Pulses: 2+ Left Doralis Pedis, 2+ Right Dorsalis Pedis Integumentary: No: Jaundice diaphoresis Neurological: Yes: Alert, Oriented Psychiatric: Yes: Alert, Oriented Echo 05/03: nl LVEF. mild RVE, mild-mod RV hypo. L/NEENA. mod MR/TR. RVSP at least 88 mmHg Echo 03/2017: Mild conc lvh. nl lv/rv size/fn, mod ronnie, mod mr, mod tr, rvsp 40- 50 EKG: afib 85, nl qtc, no ischemic changes CXR 08/19: stable bibasilar changes L > R ct chest: trace/small effusions, no sig chf Assessment/Plan 81F h/o afib, CHF, COPD (on home O2 2L), HTN, pulm HTN, hematuria s/p b/l perc nephrostomy sent from [place] for right flank pain. flank pain, uti, fever: -08/2018 had obstructive uropathy with bilateral hydro and b/l perc nephrostomy -abx per PMD/ID/ afib: - HR control overall acceptable at present, cont bb - holding eliquis for hx of severe hematuria, anemia. copd/pulm sarcoid -apears stable, plan per pulm chronic diast CHF, cor pulmonale with RV failure: -diuretics held last visit due to hypokalemia -received lasix 20 mg IV x 1 yesterday for cough, short of breath with improvement, receiving another dose this morning - CT chest yesterday showed small raad pleural effusions -continue home aldactone dose cad, NSTEMI, staph bacteremia 07/2018: -periop hypotension 08/11 during cysto, briefly on pressors. likely due to bacteremia, overdiuresis -trop 2.0 the following day, trended down, likely Type II OK sec to hypoperfusion/sepsis (+/- underlying stable CAD). ECG 08/[address] depressions inferior leads, improved on 08/12 tracing--cannot exclude Type I OK at time of events. -AC initially held for gross hematuria with large clots/hydronephrosis, was back on eliquis and now stopped again due to hematuria. defer aspirin -BB and afib HR control as doing -defer invasive CAD mgmt approach given Type II OK > Type I here, plus pt's poor functional status with competing mortality limitations from severe lung dz , low likelihood to improve prognosis, and risks > benefits (including bleeding , AIN)
[2018-10-07] MEDS: ACETAMINOPHEN 325 MG TABLET (FP) PO PRN (22:05)
[2018-10-07] MEDS: ATORVASTATIN CA 20 MG TABLET (FP) PO SCH (22:05)
--- NOTE | 2018-10-07 23:19 | PN ---
Progress Note (short form) - Note Progress Note: covering dr rivers Problems 1. hx hypokalemia 2. dyspnea 3. pulm HTN 4. CHF 5. hx hematuria 6. sarcoid 7. COPD 8. a-fib 9. hx of HTN 10. hyperlipidemia Current Medications Acetaminophen (Tylenol -) 650 mg PO Q6H PRN PRN Reason: PAIN 1-3 Last Admin: 10/07/18 22:05 Dose: 650 mg Albuterol Sulfate (Ventolin 0.083% Nebulizer Soln -) 1 amp NEB Q4H PRN PRN Reason: SHORT OF BREATH/WHEEZING Albuterol Sulfate (Ventolin Hfa Inhaler -) 2 puff IH Q4H PRN PRN Reason: SHORTNESS OF BREATH Albuterol/Ipratropium (Duoneb -) 1 amp NEB RQID [facility] Last Admin: 10/07/18 20:02 Dose: 1 amp Atenolol (Tenormin -) 25 mg PO BID [facility] Last Admin: 10/07/18 22:05 Dose: 25 mg Atorvastatin Calcium (Lipitor -) 20 mg PO HS [facility] Last Admin: 10/07/18 22:05 Dose: 20 mg Folic Acid (Folic Acid -) 1 mg PO DAILY [facility] Last Admin: 10/07/18 09:39 Dose: 1 mg Heparin Sodium (Porcine) (Heparin -) 5,000 unit SQ TID [facility] Last Admin: 10/07/18 22:05 Dose: 5,000 unit Piperacillin Sod/Tazobactam (Sod 2.25 gm/ Dextrose) 50 mls @ 100 mls/hr IVPB Q8H-IV [facility]; Protocol Last Admin: 10/07/18 17:26 Dose: 100 mls/hr Azithromycin (Zithromax 500mg Ivpb (Pre-Docked)) 500 mg in 250 mls @ 250 mls/ hr IVPB DAILY [facility] Last Admin: 10/07/18 09:40 Dose: 250 mls/hr Magnesium Oxide (Mag-Ox -) 800 mg PO DAILY [facility] Stop: 10/11/18 10:01 Last Admin: 10/07/18 12:51 Dose: 800 mg Pantoprazole Sodium (Protonix -) 20 mg PO DAILY [facility] Last Admin: 10/07/18 09:40 Dose: 20 mg Prednisone (Deltasone -) 5 mg PO DAILY [facility] Last Admin: 10/07/18 09:39 Dose: 5 mg Spironolactone (Aldactone -) 25 mg PO DAILY [facility] Last Admin: 10/07/18 09:40 Dose: 25 mg Last Vital Signs Temp Pulse Resp BP Pulse Ox 98.2 F 95 H 22 H 117/62 99 10/07/18 22:00 10/07/18 22:00 10/07/18 22:00 10/07/18 22:00 10/07/18 09:00 CBC, BMP 10/06/18 17:30 10/07/18 08:00 Plan - restart spironolactone - monitor volumes status - repeat labs in am - urology follow up for nephrostomy tubes - follow cultures - cont abx - will follow
[2018-10-08] MEDS ORDERED: PIPERACILLIN/TAZOBACTAM 2.25 GM VIAL IVPB ONE ×3 (01:27→16:56)
[2018-10-08] MEDS ORDERED: DEXTROSE 5%-WATER - 50 ML IVPB ONE ×3 (01:27→16:56)
[2018-10-08] MEDS: PIPERACILLIN/TAZOB 2.25 GM 2.25 GM in DEXTROSE 5%-WATER - 50 ML IVPB SCH ×3 (01:49→18:03)
[2018-10-08] MEDS: ACETAMINOPHEN 325 MG TABLET (FP) PO PRN (06:31)
[2018-10-08] MEDS: HEPARIN NA (PORCINE) 5,000 UNITS/ML 1ML VIAL SQ SCH ×3 (06:31→21:45)
[2018-10-08] MEDS: ALBUTEROL SO4 2.5/IPRATROPIUM 0.5 INH SOL 3 ML VIAL.NEB. NEB SCH ×4 (08:17→19:40)
[2018-10-08 08:27] LABS: BASO % 1.1 % (0-2.0); EOS % 2.8 % (0-4.5); HEMOGLOBIN 8.7 GM/dL (10.7-15.3); LYMPH % 46.8 % (8-40); MCH 22.5 pg (25.7-33.7); MCHC 29.9 g/dl (32.0-36.0); MEAN CELL VOLUME 75.5 fl (80-96); MEAN PLT VOLUME 8.5 fl (7.5-11.1); MONO % 11.5 % (3.8-10.2); NEUT % 37.8 % (42.8-82.8); PLATELET COUNT 180 K/MM3 (134-434); RBC 3.85 M/mm3 (3.60-5.2); RDW 18.3 % (11.6-15.6); WHITE BLOOD COUNT 4.8 K/mm3 (4.0-10.0)
[2018-10-08 09:00] LABS: ANION GAP 7 MMOL/L (8-16); BLOOD UREA NITROGEN 7 mg/dL (7-18); CALCIUM 9.1 mg/dL (8.5-10.1); CHLORIDE 101 mmol/L (98-107); CO2 33 mmol/L (21-32); CREATININE 0.6 mg/dL (0.55-1.3); GLUCOSE,RANDOM 77 mg/dL (74-106); MAGNESIUM 2.1 mg/dL (1.8-2.4); PHOSPHOROUS 3.3 mg/dL (2.5-4.9); SODIUM 141 mmol/L (136-145)
[2018-10-08] MEDS: ATENOLOL 25 MG TABLET (FP) PO SCH ×2 (10:43→21:45)
[2018-10-08] MEDS: SPIRONOLACTONE 25 MG TABLET (FP) PO SCH (10:43)
[2018-10-08] MEDS: PANTOPRAZOLE 20 MG TABLET (FP) PO SCH (10:43)
[2018-10-08] MEDS: FOLIC ACID 1 MG TABLET (FP) PO SCH (10:43)
[2018-10-08] MEDS: AZITHROMYCIN IVPB 500 MG/250 ML BAG IVPB SCH (10:44)
[2018-10-08] MEDS: predniSONE 5 MG TABLET (UD) PO SCH (10:44)
[2018-10-08] MEDS: MAGNESIUM OXIDE 400 MG TABLET (FP) PO SCH (10:44)
--- NOTE | 2018-10-08 11:55 | PN ---
Progress Note (short form) - Note Progress Note: - Consultation Consultation Note: Chief Complaint: right flank pain s: no chest pain, palps, dizziness, lightheadedness. sob improved. Current Medications Acetaminophen (Tylenol -) 650 mg PO Q6H PRN PRN Reason: PAIN 1-3 Last Admin: 10/08/18 06:31 Dose: 650 mg Albuterol Sulfate (Ventolin 0.083% Nebulizer Soln -) 1 amp NEB Q4H PRN PRN Reason: SHORT OF BREATH/WHEEZING Albuterol Sulfate (Ventolin Hfa Inhaler -) 2 puff IH Q4H PRN PRN Reason: SHORTNESS OF BREATH Albuterol/Ipratropium (Duoneb -) 1 amp NEB RQID [facility] Last Admin: 10/08/18 08:17 Dose: 1 amp Atenolol (Tenormin -) 25 mg PO BID [facility] Last Admin: 10/08/18 10:43 Dose: 25 mg Atorvastatin Calcium (Lipitor -) 20 mg PO HS [facility] Last Admin: 10/07/18 22:05 Dose: 20 mg Folic Acid (Folic Acid -) 1 mg PO DAILY [facility] Last Admin: 10/08/18 10:43 Dose: 1 mg Heparin Sodium (Porcine) (Heparin -) 5,000 unit SQ TID [facility] Last Admin: 10/08/18 06:31 Dose: 5,000 unit Piperacillin Sod/Tazobactam (Sod 2.25 gm/ Dextrose) 50 mls @ 100 mls/hr IVPB Q8H-IV [facility]; Protocol Last Admin: 10/08/18 10:44 Dose: 100 mls/hr Azithromycin (Zithromax 500mg Ivpb (Pre-Docked)) 500 mg in 250 mls @ 250 mls/ hr IVPB DAILY [facility] Last Admin: 10/07/18 09:40 Dose: 250 mls/hr Magnesium Oxide (Mag-Ox -) 800 mg PO DAILY [facility] Stop: 10/11/18 10:01 Last Admin: 10/08/18 10:44 Dose: 800 mg Pantoprazole Sodium (Protonix -) 20 mg PO DAILY [facility] Last Admin: 10/08/18 10:43 Dose: 20 mg Prednisone (Deltasone -) 5 mg PO DAILY [facility] Last Admin: 10/08/18 10:44 Dose: 5 mg Spironolactone (Aldactone -) 25 mg PO DAILY [facility] Last Admin: 10/08/18 10:43 Dose: 25 mg Vital Signs: Vital Signs Period Temp Pulse Resp BP Sys/Garza Pulse Ox Last 24 Hr 97.6 F-98.6 F 89-95 - 102-139/59-82 98 Constitutional: Yes: Well Nourished, No Distress Eyes: Yes: Conjunctiva Clear HENT: Yes: Atraumatic, Normocephalic Neck: Yes: Supple, Trachea Midline Respiratory: Yes: Regular, rales at bases Gastrointestinal: Yes: Normal Bowel Sounds, Soft Cardiovascular: Yes: Pulse Irregular JVD: no Heart Sounds: Yes: S1, S2 Edema: No Peripheral Pulses WNL: Yes Peripheral Pulses: 2+ Left Doralis Pedis, 2+ Right Dorsalis Pedis Integumentary: No: Jaundice diaphoresis Neurological: Yes: Alert, Oriented Psychiatric: Yes: Alert, Oriented Echo 05/03: nl LVEF. mild RVE, mild-mod RV hypo. L/NEENA. mod MR/TR. RVSP at least 88 mmHg Echo 03/2017: Mild conc lvh. nl lv/rv size/fn, mod ronnie, mod mr, mod tr, rvsp 40- 50 EKG: afib 85, nl qtc, no ischemic changes CXR 08/19: stable bibasilar changes L > R ct chest: trace/small effusions, no sig chf Assessment/Plan 81F h/o afib, CHF, COPD (on home O2 2L), HTN, pulm HTN, hematuria s/p b/l perc nephrostomy sent from [place] for right flank pain. flank pain, uti, fever: -08/2018 had obstructive uropathy with bilateral hydro and b/l perc nephrostomy -abx per PMD/ID/ afib: - HR control overall acceptable at present, cont bb - holding eliquis for hx of severe hematuria, anemia. copd/pulm sarcoid -apears stable, plan per pulm chronic diast CHF, cor pulmonale with RV failure: -diuretics held last visit due to hypokalemia -received lasix 20 mg IV x 1 day of admission and yesterday for cough, short of breath with improvement, no dyspnea today, cough improved as well -continue home aldactone dose cad, NSTEMI, staph bacteremia 07/2018: -periop hypotension 08/11 during cysto, briefly on pressors. likely due to bacteremia, overdiuresis -trop 2.0 the following day, trended down, likely Type II [place] sec to hypoperfusion/sepsis (+/- underlying stable CAD). ECG 08/[address] depressions inferior leads, improved on 08/12 tracing--cannot exclude Type I TX at time of events. -AC initially held for gross hematuria with large clots/hydronephrosis, was back on eliquis and now stopped again due to hematuria. defer aspirin -BB and afib HR control as doing -defer invasive CAD mgmt approach given Type II TX > Type I here, plus pt's poor functional status with competing mortality limitations from severe lung dz , low likelihood to improve prognosis, and risks > benefits (including bleeding , AIN)
[2018-10-08] MEDS ORDERED: POTASSIUM CHLORIDE TABS 20 MEQ TABLET.ER (FP) PO ONE ×2 (13:15→20:14)
[2018-10-08] MEDS: KCL 10 MEQ IVPB 10 MEQ/100 ML INFUS.BAG IVPB SCH ×3 (14:36→16:44)
--- NOTE | 2018-10-08 15:03 | PN ---
Physical Exam: SUBJECTIVE: Patient seen and examined, breathing better. Still with cough. Reports unchanged abdominal pain, no urinary symptoms. OBJECTIVE: Vital Signs Period Temp Pulse Resp BP Sys/Garza Pulse Ox Last 24 Hr 97.6 F-98.6 F 89-95 102-139/59-82 98 Intake & Output 10/05/18 10/06/18 10/07/18 10/08/18 23:59 23:59 23:59 23:59 Intake Total 300 860 450 Output Total 2150 1450 150 Balance -1850 -590 300 Weight 167 lb 172 lb 172 lb GENERAL: sleeping but arousable, no acute distress HEAD: Normal with no signs of trauma. EYES: PERRL, extraocular movements intact, sclera anicteric, conjunctiva clear. No ptosis. ENT: Ears normal, nares patent, oropharynx clear without exudates, moist mucous membranes. NECK: Trachea midline, full range of motion, supple. LUNGS: bibasilar rales R>L, improved effort and air entry, no wheezing HEART: S1S2 irregular ABDOMEN: Soft, mild unchanged right gen-umbilical tenderness, no suprapubic or CVA tenderness, nondistended, normoactive bowel sounds, no guarding, no rebound EXTREMITIES: trace pedal edema Nephrostomy draining clear urine PSYCH: Normal mood, normal affect. SKIN: Warm, dry, normal turgor, no rashes or lesions noted Laboratory Results - last 24 hr 10/08/18 10/08/18 07:00 07:00 WBC 4.8 RBC 3.85 Hgb 8.7 L Hct 29.0 L MCV 75.5 L MCH 22.5 L MCHC 29.9 L RDW 18.3 H Plt Count 180 MPV 8.5 Absolute Neuts (auto) 1.8 Neutrophils % 37.8 L D Lymphocytes % 46.8 H D Monocytes % 11.5 H Eosinophils % 2.8 D Basophils % 1.1 Nucleated RBC % 0 Sodium 141 Potassium 3.0 L Chloride 101 Carbon Dioxide 33 H Anion Gap 7 L BUN 7 Creatinine 0.6 Creat Clearance w eGFR > 60 Random Glucose 77 Calcium 9.1 Phosphorus 3.3 Magnesium 2.1 Active Medications Generic Name Dose Route Start Last Admin Trade Name Freq PRN Reason Stop Dose Admin Acetaminophen 650 mg 10/06/18 15:55 10/08/18 06:31 Tylenol - PO 650 mg Q6H PRN Administration PAIN 1-3 Albuterol Sulfate 1 amp 10/06/18 00:01 Ventolin 0.083% Nebulizer Soln - NEB Q4H PRN SHORT OF BREATH/WHEEZING Albuterol Sulfate 2 puff 10/06/18 16:06 Ventolin Hfa Inhaler - IH Q4H PRN SHORTNESS OF BREATH Albuterol/Ipratropium 1 amp 10/06/18 08:00 10/08/18 12:27 Duoneb - NEB 1 amp RQID [facility] Administration Atenolol 25 mg 10/06/18 10:00 10/08/18 10:43 Tenormin - PO 25 mg BID [facility] Administration Atorvastatin Calcium 20 mg 10/06/18 22:00 10/07/18 22:05 Lipitor - PO 20 mg HS [facility] Administration Folic Acid 1 mg 10/06/18 10:00 10/08/18 10:43 Folic Acid - PO 1 mg DAILY [facility] Administration Heparin Sodium (Porcine) 5,000 unit 10/06/18 22:00 10/08/18 14:36 Heparin - SQ 5,000 unit TID [facility] Administration Piperacillin Sod/Tazobactam 50 mls @ 100 mls/hr 10/06/18 18:00 10/08/18 10:44 Sod 2.25 gm/ Dextrose IVPB 100 mls/hr Q8H-IV [facility] Administration Protocol Azithromycin 500 mg in 250 mls @ 250 mls/hr 10/07/18 10:00 10/07/18 09:40 Zithromax 500mg Ivpb (Pre-Docked) IVPB 250 mls/hr DAILY [facility] Administration Potassium Chloride 10 meq in 100 mls @ 100 mls/hr 10/08/18 13:15 10/08/18 14: 36 Potassium Chloride 10 Meq Premix Ivpb - IVPB 10/08/18 16:14 100 mls/hr Q60M [facility] Administration Magnesium Oxide 800 mg 10/07/18 12:15 10/08/18 10:44 Mag-Ox - PO 10/11/18 10:01 800 mg DAILY [facility] Administration Pantoprazole Sodium 20 mg 10/06/18 10:00 10/08/18 10:43 Protonix - PO 20 mg DAILY [facility] Administration Prednisone 5 mg 10/06/18 10:00 10/08/18 10:44 Deltasone - PO 5 mg DAILY [facility] Administration Spironolactone 25 mg 10/07/18 10:00 10/08/18 10:43 Aldactone - PO 25 mg DAILY [facility] Administration Microbiology 10/05/18 17:00 Urine - Urine - Catheterized Urine Culture - Preliminary Lactose Fermenting Neg Bacilli Proteus Mirabilis 10/05/18 17:00 Blood - Peripheral Venous Blood Culture - Preliminary NO GROWTH OBTAINED AFTER 48 HOURS, INCUBATION TO CONTINUE FOR 3 DAYS. 10/05/18 17:00 Blood - Peripheral Venous Blood Culture - Preliminary NO GROWTH OBTAINED AFTER 48 HOURS, INCUBATION TO CONTINUE FOR 3 DAYS. 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 -Cough, suspect acute diastolic HF exacerbation (in the setting withholding loop diuretics), low suspicion for PNA -Complicated UTI vs asymptomatic bacteruria -Recent haemorrhagic cystitis s/p Cystoscopy 08/11(complicated by hypotension requiring ICU/pressors), b/l nephrostomy tube placement 08/16, -Complicated UTI s/p 2 weeks of cefazolin -Chronic respiratory failure -Hypokalemia -Oxygen (3L)/steroid dependent COPD -CAD -Pulmonary HTN -Sarcoidosis -Recent coumadin coagulopathy, unclear etiology -Anemia with recent h/o hematochezia Plan: CT chest more concerning for volume overload. BNP noted. lasix 20 mg IV x 2 with good response. hold off additional dosing. Breathing better Aggressively replete K. Strict I/Os, daily weights. Continue aldactone. Cardiology/renal input noted. zosyn/azithromycin day 3, follow up urine cultures. Nebs prn. Continue home prednisone. d/c azithromycin. Discuss with ID for abx taper. Discussed with IR for further plan for nephrostomy tubes. Follow up. DVTPPX heparin with close monitoring Dispo to NH in 1-2 days if improved. PT eval Plan discussed with patient and nursing in detail, all questions answered. Visit type - Emergency Visit Emergency Visit: Yes ED Registration Date: 10/05/18 Care time: The patient presented to the Emergency Department on the above date and was hospitalized for further evaluation of their emergent condition. - New Patient This patient is new to me today: No - Critical Care Critical Care patient: No - Discharge Referral Referred to [facility] Med [facility] No
[2018-10-08] MEDS: ATORVASTATIN CA 20 MG TABLET (FP) PO SCH (21:45)
--- NOTE | 2018-10-08 22:19 | PN ---
Progress Note (short form) - Note Progress Note: covering dr rivers Problems 1. hx hypokalemia 2. dyspnea 3. pulm HTN 4. CHF 5. hx hematuria 6. sarcoid 7. COPD 8. a-fib 9. hx of HTN 10. hyperlipidemia Current Medications Acetaminophen (Tylenol -) 650 mg PO Q6H PRN PRN Reason: PAIN 1-3 Last Admin: 10/08/18 06:31 Dose: 650 mg Albuterol Sulfate (Ventolin 0.083% Nebulizer Soln -) 1 amp NEB Q4H PRN PRN Reason: SHORT OF BREATH/WHEEZING Albuterol Sulfate (Ventolin Hfa Inhaler -) 2 puff IH Q4H PRN PRN Reason: SHORTNESS OF BREATH Albuterol/Ipratropium (Duoneb -) 1 amp NEB RQID [facility] Last Admin: 10/08/18 19:40 Dose: 1 amp Atenolol (Tenormin -) 25 mg PO BID [facility] Last Admin: 10/08/18 21:45 Dose: 25 mg Atorvastatin Calcium (Lipitor -) 20 mg PO HS [facility] Last Admin: 10/08/18 21:45 Dose: 20 mg Folic Acid (Folic Acid -) 1 mg PO DAILY [facility] Last Admin: 10/08/18 10:43 Dose: 1 mg Heparin Sodium (Porcine) (Heparin -) 5,000 unit SQ TID [facility] Last Admin: 10/08/18 21:45 Dose: 5,000 unit Piperacillin Sod/Tazobactam (Sod 2.25 gm/ Dextrose) 50 mls @ 100 mls/hr IVPB Q8H-IV [facility]; Protocol Last Admin: 10/08/18 18:03 Dose: 100 mls/hr Azithromycin (Zithromax 500mg Ivpb (Pre-Docked)) 500 mg in 250 mls @ 250 mls/ hr IVPB DAILY [facility] Last Admin: 10/08/18 10:44 Dose: 250 mls/hr Magnesium Oxide (Mag-Ox -) 800 mg PO DAILY [facility] Stop: 10/11/18 10:01 Last Admin: 10/08/18 10:44 Dose: 800 mg Pantoprazole Sodium (Protonix -) 20 mg PO DAILY [facility] Last Admin: 10/08/18 10:43 Dose: 20 mg Prednisone (Deltasone -) 5 mg PO DAILY [facility] Last Admin: 10/08/18 10:44 Dose: 5 mg Spironolactone (Aldactone -) 25 mg PO DAILY [facility] Last Admin: 10/08/18 10:43 Dose: 25 mg Last Vital Signs Temp Pulse Resp BP Pulse Ox 98.1 F 79 22 H 123/71 98 10/08/18 18:30 10/08/18 21:43 10/08/18 21:43 10/08/18 21:43 10/08/18 09:00 CBC, BMP 10/08/18 07:00 10/08/18 07:00 CBC, BMP 10/06/18 17:30 10/07/18 08:00 started on spironolactone hypokalemia Chronic respiratory failure, COPD (O2-dependent on 3L NC), diastolic CHF, CAD, HTN, Pulmonary HTN, sarcoidosis, hemorrhagic cystitis (s/p cystoscopy 08/11, s/p b/l nephrostomy tube placement 08/16), Plan f/u bmp for lytes
[2018-10-09] MEDS ORDERED: DEXTROSE 5%-WATER - 50 ML IVPB ONE ×3 (00:36→17:24)
[2018-10-09] MEDS ORDERED: PIPERACILLIN/TAZOBACTAM 2.25 GM VIAL IVPB ONE ×3 (00:36→17:23)
[2018-10-09] MEDS: PIPERACILLIN/TAZOB 2.25 GM 2.25 GM in DEXTROSE 5%-WATER - 50 ML IVPB SCH ×3 (02:25→17:39)
[2018-10-09] MEDS: HEPARIN NA (PORCINE) 5,000 UNITS/ML 1ML VIAL SQ SCH ×3 (05:19→22:08)
[2018-10-09] MEDS: ALBUTEROL SO4 2.5/IPRATROPIUM 0.5 INH SOL 3 ML VIAL.NEB. NEB SCH ×4 (07:59→21:30)
--- NOTE | 2018-10-09 08:15 | PN ---
Teaching Attending Note Name of Resident: Brennan Gifford ATTENDING PHYSICIAN STATEMENT I saw and evaluated the patient. I reviewed the resident's note and discussed the case with the resident. I agree with the resident's findings and plan as documented with exceptions below. SUBJECTIVE: Patient seen and examined. Denies any dsypnea, feeling well. right sided abdominal pain, reports more along right nephrostomy tube. OBJECTIVE: Vital Signs Period Temp Pulse Resp BP Sys/Garza Pulse Ox Last 24 Hr 97.3 F-98.1 F 77-91 19-22 104-124/42-79 98-99 Intake & Output 10/06/18 10/07/18 10/08/18 10/09/18 23:59 23:59 23:59 23:59 Intake Total 660 810 7311 50 Output Total 2150 1450 850 300 Balance -1850 -590 600 -250 Weight 172 lb 172 lb General: sitting in bed in no acute distress, breathing comfortably Chest: good air entry bilaterally, no rales appreciated today Abdomen: soft, obese, NT, mild RMQ tenderness, no voluntary or involuntary guarding or rigidity, right nephrostomy site 1 cm vertical skin tear with no active discharge or surrounding swelling or erythema Extremities: trace to none pedal edema, improved Active Medications Acetaminophen (Tylenol -) 650 mg PO Q6H PRN PRN Reason: PAIN 1-3 Last Admin: 10/08/18 06:31 Dose: 650 mg Albuterol Sulfate (Ventolin 0.083% Nebulizer Soln -) 1 amp NEB Q4H PRN PRN Reason: SHORT OF BREATH/WHEEZING Albuterol Sulfate (Ventolin Hfa Inhaler -) 2 puff IH Q4H PRN PRN Reason: SHORTNESS OF BREATH Albuterol/Ipratropium (Duoneb -) 1 amp NEB RQID [facility] Last Admin: 10/09/18 07:59 Dose: 1 amp Atenolol (Tenormin -) 25 mg PO BID [facility] Last Admin: 10/08/18 21:45 Dose: 25 mg Atorvastatin Calcium (Lipitor -) 20 mg PO HS [facility] Last Admin: 10/08/18 21:45 Dose: 20 mg Folic Acid (Folic Acid -) 1 mg PO DAILY [facility] Last Admin: 10/08/18 10:43 Dose: 1 mg Heparin Sodium (Porcine) (Heparin -) 5,000 unit SQ TID [facility] Last Admin: 10/09/18 05:19 Dose: 5,000 unit Piperacillin Sod/Tazobactam (Sod 2.25 gm/ Dextrose) 50 mls @ 100 mls/hr IVPB Q8H-IV [facility]; Protocol Last Admin: 10/09/18 02:25 Dose: 100 mls/hr Azithromycin (Zithromax 500mg Ivpb (Pre-Docked)) 500 mg in 250 mls @ 250 mls/ hr IVPB DAILY [facility] Last Admin: 10/08/18 10:44 Dose: 250 mls/hr Magnesium Oxide (Mag-Ox -) 800 mg PO DAILY [facility] Stop: 10/11/18 10:01 Last Admin: 10/08/18 10:44 Dose: 800 mg Pantoprazole Sodium (Protonix -) 20 mg PO DAILY [facility] Last Admin: 10/08/18 10:43 Dose: 20 mg Prednisone (Deltasone -) 5 mg PO DAILY [facility] Last Admin: 10/08/18 10:44 Dose: 5 mg Spironolactone (Aldactone -) 25 mg PO DAILY [facility] Last Admin: 10/08/18 10:43 Dose: 25 mg Laboratory Results - last 24 hr 10/08/18 10/08/18 07:00 07:00 WBC 4.8 RBC 3.85 Hgb 8.7 L Hct 29.0 L MCV 75.5 L MCH 22.5 L MCHC 29.9 L RDW 18.3 H Plt Count 180 MPV 8.5 Absolute Neuts (auto) 1.8 Neutrophils % 37.8 L D Lymphocytes % 46.8 H D Monocytes % 11.5 H Eosinophils % 2.8 D Basophils % 1.1 Nucleated RBC % 0 Sodium 141 Potassium 3.0 L Chloride 101 Carbon Dioxide 33 H Anion Gap 7 L BUN 7 Creatinine 0.6 Creat Clearance w eGFR > 60 Random Glucose 77 Calcium 9.1 Phosphorus 3.3 Magnesium 2.1 Microbiology 10/05/18 17:00 Blood - Peripheral Venous Blood Culture - Preliminary NO GROWTH OBTAINED AFTER 72 HOURS, INCUBATION TO CONTINUE FOR 2 DAYS. 10/05/18 17:00 Blood - Peripheral Venous Blood Culture - Preliminary NO GROWTH OBTAINED AFTER 72 HOURS, INCUBATION TO CONTINUE FOR 2 DAYS. 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 -Cough, suspect acute diastolic HF exacerbation (in the setting withholding loop diuretics), low suspicion for PNA -Complicated UTI vs asymptomatic bacteruria -Recent haemorrhagic cystitis s/p Cystoscopy 08/11(complicated by hypotension requiring ICU/pressors), b/l nephrostomy tube placement 08/16, -Complicated UTI s/p 2 weeks of cefazolin -Chronic respiratory failure -Hypokalemia -Oxygen (3L)/steroid dependent COPD -CAD -Pulmonary HTN -Sarcoidosis -Recent coumadin coagulopathy, unclear etiology -Anemia with recent h/o hematochezia Plan: CT chest more concerning for volume overload. BNP noted. lasix 20 mg IV x 2 with good response. hold off additional dosing. Breathing better Aggressively replete K given recent h/o severe hypokalemia. Strict I/Os, daily weights. Continue aldactone. Cardiology/renal input noted. zosyn day 5. S/p 3 days of azithromycin.Urine cx noted. follow up with ID Discussed with urology, defer to IR for nephrostomy management. Discussed with IR, CT A/P with and without contrast, further plan accordingly on as discussed. May hold off on abx taper till further IR plan determined. Wound care right nephrostomy tear site. Continue home prednisone. DVTPPX heparin with close monitoring Dispo to NH once medical issues improved. PT eval Plan discussed with patient and nursing in detail, all questions answered.
[2018-10-09 08:19] LABS: BASO % 0.7 % (0-2.0); EOS % 2.4 % (0-4.5); HEMATOCRIT 27.9 % (32.4-45.2); HEMOGLOBIN 8.2 GM/dL (10.7-15.3); LYMPH % 50.7 % (8-40); MCH 22.1 pg (25.7-33.7); MCHC 29.3 g/dl (32.0-36.0); MEAN CELL VOLUME 75.5 fl (80-96); MEAN PLT VOLUME 8.8 fl (7.5-11.1); MONO % 10.1 % (3.8-10.2); NEUT % 36.1 % (42.8-82.8); PLATELET COUNT 199 K/MM3 (134-434); RDW 18.9 % (11.6-15.6)
[2018-10-09 09:23] LABS: ANION GAP 7 MMOL/L (8-16); BLOOD UREA NITROGEN 7 mg/dL (7-18); CALCIUM 8.8 mg/dL (8.5-10.1); CHLORIDE 104 mmol/L (98-107); CO2 30 mmol/L (21-32); CREATININE 0.6 mg/dL (0.55-1.3); GLUCOSE,RANDOM 98 mg/dL (74-106); MAGNESIUM 1.9 mg/dL (1.8-2.4); PHOSPHOROUS 2.9 mg/dL (2.5-4.9); POTASSIUM 3.8 mmol/L (3.5-5.1); SODIUM 141 mmol/L (136-145)
[2018-10-09] MEDS: FOLIC ACID 1 MG TABLET (FP) PO SCH (10:39)
[2018-10-09] MEDS: ATENOLOL 25 MG TABLET (FP) PO SCH ×2 (10:39→22:08)
[2018-10-09] MEDS: PANTOPRAZOLE 20 MG TABLET (FP) PO SCH (10:39)
[2018-10-09] MEDS: predniSONE 5 MG TABLET (UD) PO SCH (10:39)
[2018-10-09] MEDS: SPIRONOLACTONE 25 MG TABLET (FP) PO SCH ×2 (10:40→22:08)
[2018-10-09] MEDS: AZITHROMYCIN IVPB 500 MG/250 ML BAG IVPB SCH (10:40)
[2018-10-09] MEDS: MAGNESIUM OXIDE 400 MG TABLET (FP) PO SCH (10:40)
--- NOTE | 2018-10-09 11:17 | PN ---
Progress Note (short form) - Note Progress Note: Chief Complaint: right flank pain s: no chest pain, palps, dizziness, lightheadedness. sob improved. Vital Signs: Vital Signs Period Temp Pulse Resp BP Sys/Garza Pulse Ox Last 24 Hr 97.3 F-98.2 F 77-91 20-22 105-136/42-79 99 Constitutional: Yes: Well Nourished, No Distress Eyes: Yes: Conjunctiva Clear Neck: Yes: Supple, Trachea Midline Respiratory: Yes: Regular, rales at bases Gastrointestinal: Yes: Normal Bowel Sounds, Soft Cardiovascular: Yes: Pulse Irregular JVD: no Heart Sounds: Yes: S1, S2 Edema: No Peripheral Pulses WNL: Yes Integumentary: No: Jaundice diaphoresis Neurological: Yes: Alert, Oriented Current Medications Generic Name Dose Route Start Last Admin Trade Name Freq PRN Reason Stop Dose Admin Acetaminophen 650 mg 10/06/18 15:55 10/08/18 06:31 Tylenol - PO 650 mg Q6H PRN Administration PAIN 1-3 Albuterol Sulfate 1 amp 10/06/18 00:01 Ventolin 0.083% Nebulizer Soln - NEB Q4H PRN SHORT OF BREATH/WHEEZING Albuterol Sulfate 2 puff 10/06/18 16:06 Ventolin Hfa Inhaler - IH Q4H PRN SHORTNESS OF BREATH Albuterol/Ipratropium 1 amp 10/06/18 08:00 10/09/18 07:59 Duoneb - NEB 1 amp RQID [facility] Administration Atenolol 25 mg 10/06/18 10:00 10/09/18 10:39 Tenormin - PO 25 mg BID [facility] Administration Atorvastatin Calcium 20 mg 10/06/18 22:00 10/08/18 21:45 Lipitor - PO 20 mg HS [facility] Administration Folic Acid 1 mg 10/06/18 10:00 10/09/18 10:39 Folic Acid - PO 1 mg DAILY [facility] Administration Heparin Sodium (Porcine) 5,000 unit 10/06/18 22:00 10/09/18 05:19 Heparin - SQ 5,000 unit TID [facility] Administration Piperacillin Sod/Tazobactam 50 mls @ 100 mls/hr 10/06/18 18:00 10/09/18 10:39 Sod 2.25 gm/ Dextrose IVPB 100 mls/hr Q8H-IV [facility] Administration Protocol Azithromycin 500 mg in 250 mls @ 250 mls/hr 10/07/18 10:00 10/09/18 10:40 Zithromax 500mg Ivpb (Pre-Docked) IVPB 250 mls/hr DAILY [facility] Administration Magnesium Oxide 800 mg 10/07/18 12:15 10/09/18 10:40 Mag-Ox - PO 10/11/18 10:01 800 mg DAILY [facility] Administration Pantoprazole Sodium 20 mg 10/06/18 10:00 10/09/18 10:39 Protonix - PO 20 mg DAILY [facility] Administration Prednisone 5 mg 10/06/18 10:00 10/09/18 10:39 Deltasone - PO 5 mg DAILY [facility] Administration Spironolactone 25 mg 10/07/18 10:00 10/09/18 10:40 Aldactone - PO 25 mg DAILY [facility] Administration CBC, BMP 10/09/18 07:30 10/09/18 07:30 Echo 05/03: nl LVEF. mild RVE, mild-mod RV hypo. L/NEENA. mod MR/TR. RVSP at least 88 mmHg Echo 03/2017: Mild conc lvh. nl lv/rv size/fn, mod ronnie, mod mr, mod tr, rvsp 40- 50 EKG: afib 85, nl qtc, no ischemic changes CXR 08/19: stable bibasilar changes L > R ct chest: trace/small effusions, no sig chf Assessment/Plan 81F h/o afib, CHF, COPD (on home O2 2L), HTN, pulm HTN, hematuria s/p b/l perc nephrostomy sent from MD for right flank pain. flank pain, uti, fever: -08/2018 had obstructive uropathy with bilateral hydro and b/l perc nephrostomy -abx per PMD/ID afib: - HR control overall acceptable at present, cont bb - holding eliquis for hx of severe hematuria, anemia. copd/pulm sarcoid -apears stable, plan per pulm chronic diast CHF, cor pulmonale with RV failure: -diuretics/lasix held last visit due to hypokalemia -continue home aldactone dose cad, NSTEMI, staph bacteremia 07/2018: -periop hypotension 08/11 during cysto, briefly on pressors. 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 ECG 08/[address] depressions inferior leads, improved on 08/12 tracing--cannot exclude Type I IL at time of events. -AC initially held for gross hematuria with large clots/hydronephrosis, was back on eliquis and now stopped again due to hematuria. defer aspirin -BB and afib HR control as doing -defer invasive CAD mgmt approach given Type II IL > Type I here, plus pt's poor functional status with competing mortality limitations from severe lung dz , low likelihood to improve prognosis, and risks > benefits (including bleeding , AIN)
[2018-10-09] MEDS ORDERED: POTASSIUM CHLORIDE TABS 20 MEQ TABLET.ER (FP) PO ONE (12:53)
[2018-10-09] MEDS ORDERED: NAPH,MB-DB/K PH,MBDB POWDER PACKET PO ONE (12:54)
--- NOTE | 2018-10-09 12:59 | PN ---
Physical Exam: SUBJECTIVE: Patient seen and examined this AM. She states she feels much better today than she has recently. She still feels the pain in her side. OBJECTIVE: Vital Signs Period Temp Pulse Resp BP Sys/Garza Pulse Ox Last 24 Hr 97.3 F-98.2 F 77-91 20-22 105-136/42-79 99 GENERAL: Oriented to person, place, and time, No acute distress HEAD: Normocephalic, atraumatic. EYES: PERRL, no scleral icterus EARS, NOSE, THROAT: Moist mucous membranes. NECK: supple without lymphadenopathy LUNGS: Diffuse rhonchi with decreased air entry at bases, expiratory wheezes HEART: Irregularly irregular, regular rate, normal S1 and S2 without murmur ABDOMEN: Soft, tender to palpation, normoactive bowel sounds, nephrostomy tubes in place with clear urine draining, small wound near left nephrostomy tube insertion site. EXTREMITIES: 2+ pulses, warm, well-perfused. Edema resolved NEUROLOGICAL: Cranial nerves II-XII grossly intact. Laboratory Results - last 24 hr 10/09/18 10/09/18 07:30 07:30 WBC 5.0 RBC 3.70 Hgb 8.2 L Hct 27.9 L MCV 75.5 L MCH 22.1 L MCHC 29.3 L RDW 18.9 H Plt Count 199 MPV 8.8 Absolute Neuts (auto) 1.8 Neutrophils % 36.1 L Lymphocytes % 50.7 H Monocytes % 10.1 Eosinophils % 2.4 Basophils % 0.7 Nucleated RBC % 0 Sodium 141 Potassium 3.8 Chloride 104 Carbon Dioxide 30 Anion Gap 7 L BUN 7 Creatinine 0.6 Creat Clearance w eGFR > 60 Random Glucose 98 Calcium 8.8 Phosphorus 2.9 Magnesium 1.9 Active Medications Generic Name Dose Route Start Last Admin Trade Name Freq PRN Reason Stop Dose Admin Acetaminophen 650 mg 10/06/18 15:55 10/08/18 06:31 Tylenol - PO 650 mg Q6H PRN Administration PAIN 1-3 Albuterol Sulfate 1 amp 10/06/18 00:01 Ventolin 0.083% Nebulizer Soln - NEB Q4H PRN SHORT OF BREATH/WHEEZING Albuterol Sulfate 2 puff 10/06/18 16:06 Ventolin Hfa Inhaler - IH Q4H PRN SHORTNESS OF BREATH Albuterol/Ipratropium 1 amp 10/06/18 08:00 10/09/18 11:22 Duoneb - NEB 1 amp RQID [facility] Administration Atenolol 25 mg 10/06/18 10:00 10/09/18 10:39 Tenormin - PO 25 mg BID [facility] Administration Atorvastatin Calcium 20 mg 10/06/18 22:00 10/08/18 21:45 Lipitor - PO 20 mg HS [facility] Administration Folic Acid 1 mg 10/06/18 10:00 10/09/18 10:39 Folic Acid - PO 1 mg DAILY [facility] Administration Heparin Sodium (Porcine) 5,000 unit 10/06/18 22:00 10/09/18 05:19 Heparin - SQ 5,000 unit TID [facility] Administration Piperacillin Sod/Tazobactam 50 mls @ 100 mls/hr 10/06/18 18:00 10/09/18 10:39 Sod 2.25 gm/ Dextrose IVPB 100 mls/hr Q8H-IV [facility] Administration Protocol Azithromycin 500 mg in 250 mls @ 250 mls/hr 10/07/18 10:00 10/09/18 10:40 Zithromax 500mg Ivpb (Pre-Docked) IVPB 250 mls/hr DAILY [facility] Administration Magnesium Oxide 800 mg 10/07/18 12:15 10/09/18 10:40 Mag-Ox - PO 10/11/18 10:01 800 mg DAILY [facility] Administration Pantoprazole Sodium 20 mg 10/06/18 10:00 10/09/18 10:39 Protonix - PO 20 mg DAILY [facility] Administration Prednisone 5 mg 10/06/18 10:00 10/09/18 10:39 Deltasone - PO 5 mg DAILY [facility] Administration Spironolactone 25 mg 10/07/18 10:00 10/09/18 10:40 Aldactone - PO 25 mg DAILY [facility] Administration ASSESSMENT/PLAN: 81 yo F PMH of scoliosis, cervical spine surgery, left lung surgery, cholecystectomy, Chronic respiratory failure, COPD (O2-dependent on 3L NC), diastolic CHF, A-fib (not on AC), CAD, HTN, Pulmonary HTN, sarcoidosis, hemorrhagic cystitis (s/p cystoscopy 08/11, s/p b/l nephrostomy tube placement 08/16) admitted with one week cough. UTI -UA with 3+ LE, 154 WBCs -recent instrumentation with nephrostomy tubes in place -ID consulted, Roseanne for now, day 4 -Culture returned Klebsiella and Proteus species, mart sensitive -Will discuss with ID about deescalation of Abx -ESBL positive on last admission -Serum WBC wnl, afebrile, Tmax 100.3 resolved Cough -Pt well known to be, has had chronic cough likely secondary to her COPD and extensive lung history -Pt states she is unsure why she was brought to the hospital today and states that her cough is better than it has been -Azithromycin d/c yesterday Diastolic CHF -Currently stable, does not seem to be fluid overloaded at this time -Cardiology input appreciated -Recommended continuation of home regimen -continue home aldactone COPD on 3L home O2 -Stable on home meds, not in acute exacerbation -Continue home regimen -Prednisone 5mg PO Daily -DuoNebs RQID -Albuterol NEBs PRN, not tolerating neb mask very well -Albuterol IH PRN Q4 Hemorhagic Cystitis s/p b/l nephrostomy tubes -Nephrostomy tubes in place draining clear urine -Discussed with Urology who saw as outpatient and referred to IR who had placed the nephrostomy tubes for stenting and removal of tubes -Discussed with IR who requested CT abdomen/pelvis with and without IV contrast and will evaluated after the holiday A-fib -not on AC -atenolol 25 mg PO BID H[facility] -Lipitor 20 mg PO HS DVT Prophylaxis -SCDs FEN -Fluids: none -Electrolytes: HypoMg, HypoK, HypoPhos, repleting, BMP in AM -Nutrition: Sodium Controlled Diet Disposition Med/Surg Visit type - Emergency Visit Emergency Visit: Yes ED Registration Date: 10/05/18 Care time: The patient presented to the Emergency Department on the above date and was hospitalized for further evaluation of their emergent condition. - New Patient This patient is new to me today: No - Critical Care Critical Care patient: No
--- NOTE | 2018-10-09 16:35 | PN ---
Progress Note, Physician History of Present Illness: Pt seen and examined at bedside. She is more awake and alert. She says that her breathing is improved. - Current Medication List Current Medications: Active Medications Acetaminophen (Tylenol -) 650 mg PO Q6H PRN PRN Reason: PAIN 1-3 Last Admin: 10/08/18 06:31 Dose: 650 mg Albuterol Sulfate (Ventolin 0.083% Nebulizer Soln -) 1 amp NEB Q4H PRN PRN Reason: SHORT OF BREATH/WHEEZING Albuterol Sulfate (Ventolin Hfa Inhaler -) 2 puff IH Q4H PRN PRN Reason: SHORTNESS OF BREATH Albuterol/Ipratropium (Duoneb -) 1 amp NEB RQID [facility] Last Admin: 10/09/18 15:56 Dose: Not Given Atenolol (Tenormin -) 25 mg PO BID [facility] Last Admin: 10/09/18 10:39 Dose: 25 mg Atorvastatin Calcium (Lipitor -) 20 mg PO HS [facility] Last Admin: 10/08/18 21:45 Dose: 20 mg Folic Acid (Folic Acid -) 1 mg PO DAILY [facility] Last Admin: 10/09/18 10:39 Dose: 1 mg Heparin Sodium (Porcine) (Heparin -) 5,000 unit SQ TID [facility] Last Admin: 10/09/18 14:30 Dose: 5,000 unit Piperacillin Sod/Tazobactam (Sod 2.25 gm/ Dextrose) 50 mls @ 100 mls/hr IVPB Q8H-IV [facility]; Protocol Last Admin: 10/09/18 10:39 Dose: 100 mls/hr Azithromycin (Zithromax 500mg Ivpb (Pre-Docked)) 500 mg in 250 mls @ 250 mls/ hr IVPB DAILY [facility] Last Admin: 10/09/18 10:40 Dose: 250 mls/hr Magnesium Oxide (Mag-Ox -) 800 mg PO DAILY [facility] Stop: 10/11/18 10:01 Last Admin: 10/09/18 10:40 Dose: 800 mg Pantoprazole Sodium (Protonix -) 20 mg PO DAILY [facility] Last Admin: 10/09/18 10:39 Dose: 20 mg Prednisone (Deltasone -) 5 mg PO DAILY [facility] Last Admin: 10/09/18 10:39 Dose: 5 mg Spironolactone (Aldactone -) 25 mg PO DAILY [facility] Last Admin: 10/09/18 10:40 Dose: 25 mg - Objective Vital Signs: Vital Signs Temperature 98.0 F 10/09/18 14:50 Pulse Rate 89 10/09/18 14:50 Respiratory Rate 21 H 10/09/18 14:50 Blood Pressure 130/77 10/09/18 14:50 O2 Sat by Pulse Oximetry (%) 95 10/09/18 09:00 Constitutional: Yes: Calm Eyes: Yes: Conjunctiva Clear HENT: Yes: Atraumatic Neck: Yes: Supple Cardiovascular: Yes: S1, S2 Respiratory: Yes: On Nasal O2, Rhonchi Gastrointestinal: Yes: Soft Genitourinary: Yes: Other (bilateral nephrostomy tubes) Edema: Yes Edema: LLE: 1+, RLE: 1+ Neurological: Yes: Oriented Psychiatric: Yes: Oriented Labs: CBC, BMP 10/09/18 07:30 10/09/18 07:30 INR, PTT INR 1.28 (0.83-1.09) H 10/05/18 17:00 Problem List - Problems (1) Acute CHF (congestive heart failure) Code(s): I50.9 - HEART FAILURE, UNSPECIFIED (2) CHF (congestive heart failure) Code(s): I50.9 - HEART FAILURE, UNSPECIFIED (3) COPD (chronic obstructive pulmonary disease) Code(s): J44.9 - CHRONIC OBSTRUCTIVE PULMONARY DISEASE, UNSPECIFIED Qualifiers: COPD type: COPD with acute exacerbation Qualified Code(s): J44.1 - Chronic obstructive pulmonary disease with (acute) exacerbation Assessment/Plan Current Medications Generic Name Dose Route Start Last Admin Trade Name Freq PRN Reason Stop Dose Admin Acetaminophen 650 mg 10/06/18 15:55 10/08/18 06:31 Tylenol - PO 650 mg Q6H PRN Administration PAIN 1-3 Albuterol Sulfate 1 amp 10/06/18 00:01 Ventolin 0.083% Nebulizer Soln - NEB Q4H PRN SHORT OF BREATH/WHEEZING Albuterol Sulfate 2 puff 10/06/18 16:06 Ventolin Hfa Inhaler - IH Q4H PRN SHORTNESS OF BREATH Albuterol/Ipratropium 1 amp 10/06/18 08:00 10/09/18 15:56 Duoneb - NEB Not Given RQID [facility] Atenolol 25 mg 10/06/18 10:00 10/09/18 10:39 Tenormin - PO 25 mg BID [facility] Administration Atorvastatin Calcium 20 mg 10/06/18 22:00 10/08/18 21:45 Lipitor - PO 20 mg HS [facility] Administration Folic Acid 1 mg 10/06/18 10:00 10/09/18 10:39 Folic Acid - PO 1 mg DAILY [facility] Administration Heparin Sodium (Porcine) 5,000 unit 10/06/18 22:00 10/09/18 14:30 Heparin - SQ 5,000 unit TID [facility] Administration Piperacillin Sod/Tazobactam 50 mls @ 100 mls/hr 10/06/18 18:00 10/09/18 10:39 Sod 2.25 gm/ Dextrose IVPB 100 mls/hr Q8H-IV [facility] Administration Protocol Azithromycin 500 mg in 250 mls @ 250 mls/hr 10/07/18 10:00 10/09/18 10:40 Zithromax 500mg Ivpb (Pre-Docked) IVPB 250 mls/hr DAILY [facility] Administration Magnesium Oxide 800 mg 10/07/18 12:15 10/09/18 10:40 Mag-Ox - PO 10/11/18 10:01 800 mg DAILY [facility] Administration Pantoprazole Sodium 20 mg 10/06/18 10:00 10/09/18 10:39 Protonix - PO 20 mg DAILY [facility] Administration Prednisone 5 mg 10/06/18 10:00 10/09/18 10:39 Deltasone - PO 5 mg DAILY [facility] Administration Spironolactone 25 mg 10/07/18 10:00 10/09/18 10:40 Aldactone - PO 25 mg DAILY [facility] Administration Impression 1. hx hypokalemia 2. dyspnea 3. pulm HTN 4. CHF 5. hx hematuria 6. sarcoid 7. COPD 8. a-fib 9. hx of HTN 10. hyperlipidemia Plan - increase dose of spironolactone - repeat labs in am - IR/urology follow up - follow up ct scan results - will follow
[2018-10-09] MEDS: ATORVASTATIN CA 20 MG TABLET (FP) PO SCH (22:08)
[2018-10-10] MEDS ORDERED: PIPERACILLIN/TAZOBACTAM 2.25 GM VIAL IVPB ONE ×3 (01:00→17:31)
[2018-10-10] MEDS ORDERED: DEXTROSE 5%-WATER - 50 ML IVPB ONE ×3 (01:01→17:31)
[2018-10-10] MEDS: PIPERACILLIN/TAZOB 2.25 GM 2.25 GM in DEXTROSE 5%-WATER - 50 ML IVPB SCH ×3 (02:04→17:48)
[2018-10-10] MEDS: HEPARIN NA (PORCINE) 5,000 UNITS/ML 1ML VIAL SQ SCH ×3 (06:08→22:41)
[2018-10-10 08:12] LABS: HEMATOCRIT 29.5 % (32.4-45.2); MCH 23.4 pg (25.7-33.7); MCHC 30.7 g/dl (32.0-36.0); MEAN CELL VOLUME 76.3 fl (80-96); PLATELET COUNT 205 K/MM3 (134-434); RBC 3.87 M/mm3 (3.60-5.2); RDW 18.9 % (11.6-15.6); WHITE BLOOD COUNT 4.7 K/mm3 (4.0-10.0)
[2018-10-10] MEDS: ALBUTEROL SO4 2.5/IPRATROPIUM 0.5 INH SOL 3 ML VIAL.NEB. NEB SCH ×4 (08:45→20:06)
[2018-10-10 09:15] LABS: BLOOD UREA NITROGEN 6 mg/dL (7-18); CREATININE 0.6 mg/dL (0.55-1.3); GLUCOSE,RANDOM 65 mg/dL (74-106); SODIUM 142 mmol/L (136-145)
[2018-10-10 09:16] LABS: ALBUMIN 2.2 g/dl (3.4-5.0); ANION GAP 8 MMOL/L (8-16); BILIRUBIN,TOTAL 0.6 mg/dL (0.2-1); CHLORIDE 104 mmol/L (98-107); CO2 30 mmol/L (21-32); MAGNESIUM 1.9 mg/dL (1.8-2.4); PHOSPHOROUS 3.1 mg/dL (2.5-4.9); POTASSIUM 4.3 mmol/L (3.5-5.1); TOT PROT 6.3 g/dl (6.4-8.2)
[2018-10-10 09:17] LABS: ALK PHOS 58 U/L (45-117); SGOT/AST 13 U/L (15-37); SGPT/ALT < 6 U/L (13-61)
[2018-10-10] MEDS: PANTOPRAZOLE 20 MG TABLET (FP) PO SCH (10:05)
[2018-10-10] MEDS: ATENOLOL 25 MG TABLET (FP) PO SCH ×2 (10:05→22:40)
[2018-10-10] MEDS: FOLIC ACID 1 MG TABLET (FP) PO SCH (10:05)
[2018-10-10] MEDS: predniSONE 5 MG TABLET (UD) PO SCH (10:05)
[2018-10-10] MEDS: MAGNESIUM OXIDE 400 MG TABLET (FP) PO SCH (10:05)
[2018-10-10] MEDS: SPIRONOLACTONE 25 MG TABLET (FP) PO SCH ×2 (10:06→22:41)
[2018-10-10] MEDS: AZITHROMYCIN IVPB 500 MG/250 ML BAG IVPB SCH (10:31)
--- NOTE | 2018-10-10 10:41 | PN ---
Progress Note (short form) - Note Progress Note: Progress Note: Chief Complaint: right flank pain s: no chest pain, palps, dizziness, lightheadedness. sob improved. Vital Signs: Vital Signs Period Temp Pulse Resp BP Sys/Garza Pulse Ox Last 24 Hr 98.0 F-98.3 F 80-101 20-22 130-143/70-78 99 Constitutional: Yes: Well Nourished, No Distress Eyes: Yes: Conjunctiva Clear Neck: Yes: Supple, Trachea Midline Respiratory: Yes: Regular, rales at bases Gastrointestinal: Yes: Normal Bowel Sounds, Soft Cardiovascular: Yes: Pulse Irregular JVD: no Heart Sounds: Yes: S1, S2 Edema: No Peripheral Pulses WNL: Yes Integumentary: No: Jaundice diaphoresis Neurological: Yes: Alert, Oriented Current Medications Acetaminophen (Tylenol -) 650 mg PO Q6H PRN PRN Reason: PAIN 1-3 Last Admin: 10/08/18 06:31 Dose: 650 mg Albuterol Sulfate (Ventolin 0.083% Nebulizer Soln -) 1 amp NEB Q4H PRN PRN Reason: SHORT OF BREATH/WHEEZING Albuterol Sulfate (Ventolin Hfa Inhaler -) 2 puff IH Q4H PRN PRN Reason: SHORTNESS OF BREATH Albuterol/Ipratropium (Duoneb -) 1 amp NEB RQID [facility] Last Admin: 10/10/18 08:45 Dose: 1 amp Atenolol (Tenormin -) 25 mg PO BID [facility] Last Admin: 10/10/18 10:05 Dose: 25 mg Atorvastatin Calcium (Lipitor -) 20 mg PO HS [facility] Last Admin: 10/09/18 22:08 Dose: 20 mg Folic Acid (Folic Acid -) 1 mg PO DAILY [facility] Last Admin: 10/10/18 10:05 Dose: 1 mg Heparin Sodium (Porcine) (Heparin -) 5,000 unit SQ TID [facility] Last Admin: 10/10/18 06:08 Dose: 5,000 unit Piperacillin Sod/Tazobactam (Sod 2.25 gm/ Dextrose) 50 mls @ 100 mls/hr IVPB Q8H-IV [facility]; Protocol Last Admin: 10/10/18 10:05 Dose: 100 mls/hr Azithromycin (Zithromax 500mg Ivpb (Pre-Docked)) 500 mg in 250 mls @ 250 mls/ hr IVPB DAILY [facility] Last Admin: 10/10/18 10:31 Dose: 250 mls/hr Magnesium Oxide (Mag-Ox -) 800 mg PO DAILY [facility] Stop: 10/11/18 10:01 Last Admin: 10/10/18 10:05 Dose: 800 mg Pantoprazole Sodium (Protonix -) 20 mg PO DAILY [facility] Last Admin: 10/10/18 10:05 Dose: 20 mg Prednisone (Deltasone -) 5 mg PO DAILY [facility] Last Admin: 10/10/18 10:05 Dose: 5 mg Spironolactone (Aldactone -) 25 mg PO BID [facility] Last Admin: 10/10/18 10:06 Dose: 25 mg Echo 05/03: nl LVEF. mild RVE, mild-mod RV hypo. L/NEENA. mod MR/TR. RVSP at least 88 mmHg Echo 03/2017: Mild conc lvh. nl lv/rv size/fn, mod ronnie, mod mr, mod tr, rvsp 40- 50 EKG: afib 85, nl qtc, no ischemic changes CXR 08/19: stable bibasilar changes L > R ct chest: trace/small effusions, no sig chf Assessment/Plan 81F h/o afib, CHF, COPD (on home O2 2L), HTN, pulm HTN, hematuria s/p b/l perc nephrostomy sent from MD for right flank pain. flank pain, uti, fever: -08/2018 had obstructive uropathy with bilateral hydro and b/l perc nephrostomy -abx per PMD/ID afib: - HR control overall acceptable at present, cont bb - holding eliquis for hx of severe hematuria, anemia. copd/pulm sarcoid -apears stable, plan per pulm chronic diast CHF, cor pulmonale with RV failure: -diuretics/lasix held last visit due to hypokalemia -continue aldactone, now on 25 mg BID cad, NSTEMI, staph bacteremia 07/2018: -periop hypotension 08/11 during cysto, briefly on pressors. likely due to bacteremia, overdiuresis -trop 2.0 the following day, trended down, likely Type II NV sec to hypoperfusion/sepsis (+/- underlying stable CAD). ECG 08/[address] depressions inferior leads, improved on 08/12 tracing--cannot exclude Type I NV at time of events. -AC initially held for gross hematuria with large clots/hydronephrosis, was back on eliquis and now stopped again due to hematuria. defer aspirin -BB and afib HR control as doing -defer invasive CAD mgmt approach given Type II NV > Type I here, plus pt's poor functional status with competing mortality limitations from severe lung dz , low likelihood to improve prognosis, and risks > benefits (including bleeding , AIN)
--- NOTE | 2018-10-10 16:30 | PN ---
Progress Note, Physician History of Present Illness: 81 yo F PMH of scoliosis, cervical spine surgery, left lung surgery, cholecystectomy, Chronic respiratory failure, COPD (O2-dependent on 3L NC), diastolic CHF, A-fib (not on AC), CAD, HTN, Pulmonary HTN, sarcoidosis, hemorrhagic cystitis (s/p cystoscopy 08/11, s/p b/l nephrostomy tube placement 08/16) admitted with one week cough. - Current Medication List Current Medications: Active Medications Acetaminophen (Tylenol -) 650 mg PO Q6H PRN PRN Reason: PAIN 1-3 Last Admin: 10/08/18 06:31 Dose: 650 mg Albuterol Sulfate (Ventolin 0.083% Nebulizer Soln -) 1 amp NEB Q4H PRN PRN Reason: SHORT OF BREATH/WHEEZING Albuterol Sulfate (Ventolin Hfa Inhaler -) 2 puff IH Q4H PRN PRN Reason: SHORTNESS OF BREATH Albuterol/Ipratropium (Duoneb -) 1 amp NEB RQID [facility] Last Admin: 10/10/18 12:25 Dose: 1 amp Atenolol (Tenormin -) 25 mg PO BID [facility] Last Admin: 10/10/18 10:05 Dose: 25 mg Atorvastatin Calcium (Lipitor -) 20 mg PO HS [facility] Last Admin: 10/09/18 22:08 Dose: 20 mg Folic Acid (Folic Acid -) 1 mg PO DAILY [facility] Last Admin: 10/10/18 10:05 Dose: 1 mg Heparin Sodium (Porcine) (Heparin -) 5,000 unit SQ TID [facility] Last Admin: 10/10/18 13:47 Dose: 5,000 unit Piperacillin Sod/Tazobactam (Sod 2.25 gm/ Dextrose) 50 mls @ 100 mls/hr IVPB Q8H-IV [facility]; Protocol Last Admin: 10/10/18 10:05 Dose: 100 mls/hr Azithromycin (Zithromax 500mg Ivpb (Pre-Docked)) 500 mg in 250 mls @ 250 mls/ hr IVPB DAILY [facility] Last Admin: 10/10/18 10:31 Dose: 250 mls/hr Magnesium Oxide (Mag-Ox -) 800 mg PO DAILY [facility] Stop: 10/11/18 10:01 Last Admin: 10/10/18 10:05 Dose: 800 mg Pantoprazole Sodium (Protonix -) 20 mg PO DAILY [facility] Last Admin: 10/10/18 10:05 Dose: 20 mg Prednisone (Deltasone -) 5 mg PO DAILY [facility] Last Admin: 10/10/18 10:05 Dose: 5 mg Spironolactone (Aldactone -) 25 mg PO BID [facility] Last Admin: 10/10/18 10:06 Dose: 25 mg - Objective Vital Signs: Vital Signs Temperature 98.1 F 10/10/18 15:28 Pulse Rate 81 10/10/18 15:28 Respiratory Rate 22 H 10/10/18 15:28 Blood Pressure 115/87 10/10/18 15:28 O2 Sat by Pulse Oximetry (%) 99 10/10/18 09:00 Labs: CBC, BMP 10/10/18 07:41 10/10/18 07:41 INR, PTT INR 1.28 (0.83-1.09) H 10/05/18 17:00 Assessment/Plan UTI -UA with 3+ LE, 154 WBCs -recent instrumentation with nephrostomy tubes in place -c/w with ID recommendation with pippercillin/tazobactam day 5 -Culture returned Klebsiella and Proteus species, mart sensitive -ESBL positive on last admission -Serum WBC wnl, afebrile, Tmax 100.3 resolved Cough -Pt well known to be, has had chronic cough likely secondary to her COPD and extensive lung history -Pt states she is unsure why she was brought to the hospital today and states that her cough is better than it has been Diastolic CHF -Currently stable, does not seem to be fluid overloaded at this time -f/u with Cardiology recommendation -Recommended continuation of home regimen -continue home spironolactone - monitor the K+ COPD on 3L home O2 -Stable on home meds, not in acute exacerbation -Continue home regimen -Prednisone 5mg PO Daily -DuoNebs RQID -Albuterol NEBs PRN, not tolerating neb mask very well -Albuterol IH PRN Q4 Hemorhagic Cystitis s/p b/l nephrostomy tubes -Nephrostomy tubes in place draining clear urine -Discussed with Urology who saw as outpatient and referred to IR who had placed the nephrostomy tubes for stenting and removal of tubes -Discussed with IR who requested CT abdomen/pelvis with and without IV contrast and will evaluated after the holiday A-fib -not on AC -atenolol 25 mg PO BID HLD -Lipitor 20 mg PO HS DVT Prophylaxis -SCDs FEN -Fluids: none -Electrolytes: HypoMg, HypoK, HypoPhos, repleting, BMP in AM -Nutrition: Sodium Controlled Diet Disposition Med/Surg
--- NOTE | 2018-10-10 16:31 | PN ---
Progress Note, Physician History of Present Illness: Pt seen and examined at bedside. She is awake and alert. She feels that her breathing is improved. - Current Medication List Current Medications: Active Medications Acetaminophen (Tylenol -) 650 mg PO Q6H PRN PRN Reason: PAIN 1-3 Last Admin: 10/08/18 06:31 Dose: 650 mg Albuterol Sulfate (Ventolin 0.083% Nebulizer Soln -) 1 amp NEB Q4H PRN PRN Reason: SHORT OF BREATH/WHEEZING Albuterol Sulfate (Ventolin Hfa Inhaler -) 2 puff IH Q4H PRN PRN Reason: SHORTNESS OF BREATH Albuterol/Ipratropium (Duoneb -) 1 amp NEB RQID [facility] Last Admin: 10/10/18 12:25 Dose: 1 amp Atenolol (Tenormin -) 25 mg PO BID [facility] Last Admin: 10/10/18 10:05 Dose: 25 mg Atorvastatin Calcium (Lipitor -) 20 mg PO HS [facility] Last Admin: 10/09/18 22:08 Dose: 20 mg Folic Acid (Folic Acid -) 1 mg PO DAILY [facility] Last Admin: 10/10/18 10:05 Dose: 1 mg Heparin Sodium (Porcine) (Heparin -) 5,000 unit SQ TID [facility] Last Admin: 10/10/18 13:47 Dose: 5,000 unit Piperacillin Sod/Tazobactam (Sod 2.25 gm/ Dextrose) 50 mls @ 100 mls/hr IVPB Q8H-IV [facility]; Protocol Last Admin: 10/10/18 10:05 Dose: 100 mls/hr Azithromycin (Zithromax 500mg Ivpb (Pre-Docked)) 500 mg in 250 mls @ 250 mls/ hr IVPB DAILY [facility] Last Admin: 10/10/18 10:31 Dose: 250 mls/hr Magnesium Oxide (Mag-Ox -) 800 mg PO DAILY [facility] Stop: 10/11/18 10:01 Last Admin: 10/10/18 10:05 Dose: 800 mg Pantoprazole Sodium (Protonix -) 20 mg PO DAILY [facility] Last Admin: 10/10/18 10:05 Dose: 20 mg Prednisone (Deltasone -) 5 mg PO DAILY [facility] Last Admin: 10/10/18 10:05 Dose: 5 mg Spironolactone (Aldactone -) 25 mg PO BID [facility] Last Admin: 10/10/18 10:06 Dose: 25 mg - Objective Vital Signs: Vital Signs Temperature 98.1 F 10/10/18 15:28 Pulse Rate 81 10/10/18 15:28 Respiratory Rate 22 H 10/10/18 15:28 Blood Pressure 115/87 10/10/18 15:28 O2 Sat by Pulse Oximetry (%) 99 10/10/18 09:00 Constitutional: Yes: Calm Eyes: Yes: Conjunctiva Clear HENT: Yes: Atraumatic Neck: Yes: Supple Cardiovascular: Yes: S1, S2 Respiratory: Yes: On Nasal O2 Gastrointestinal: Yes: Soft Genitourinary: Yes: Other (bilateral nephrostomy tubes) Musculoskeletal: Yes: WNL Edema: LLE: Trace, RLE: Trace Neurological: Yes: Oriented Psychiatric: Yes: Oriented Labs: CBC, BMP 10/10/18 07:41 10/10/18 07:41 INR, PTT INR 1.28 (0.83-1.09) H 10/05/18 17:00 Problem List - Problems (1) Acute CHF (congestive heart failure) Code(s): I50.9 - HEART FAILURE, UNSPECIFIED (2) CHF (congestive heart failure) Code(s): I50.9 - HEART FAILURE, UNSPECIFIED (3) COPD (chronic obstructive pulmonary disease) Code(s): J44.9 - CHRONIC OBSTRUCTIVE PULMONARY DISEASE, UNSPECIFIED Qualifiers: Qualified Code(s): J44.1 - Chronic obstructive pulmonary disease with (acute ) exacerbation Assessment/Plan Current Medications Generic Name Dose Route Start Last Admin Trade Name Freq PRN Reason Stop Dose Admin Acetaminophen 650 mg 10/06/18 15:55 10/08/18 06:31 Tylenol - PO 650 mg Q6H PRN Administration PAIN 1-3 Albuterol Sulfate 1 amp 10/06/18 00:01 Ventolin 0.083% Nebulizer Soln - NEB Q4H PRN SHORT OF BREATH/WHEEZING Albuterol Sulfate 2 puff 10/06/18 16:06 Ventolin Hfa Inhaler - IH Q4H PRN SHORTNESS OF BREATH Albuterol/Ipratropium 1 amp 10/06/18 08:00 10/10/18 12:25 Duoneb - NEB 1 amp RQID [facility] Administration Atenolol 25 mg 10/06/18 10:00 10/10/18 10:05 Tenormin - PO 25 mg BID LISA Administration Atorvastatin Calcium 20 mg 10/06/18 22:00 10/09/18 22:08 Lipitor - PO 20 mg HS [facility] Administration Folic Acid 1 mg 10/06/18 10:00 10/10/18 10:05 Folic Acid - PO 1 mg DAILY [facility] Administration Heparin Sodium (Porcine) 5,000 unit 10/06/18 22:00 10/10/18 13:47 Heparin - SQ 5,000 unit TID [facility] Administration Piperacillin Sod/Tazobactam 50 mls @ 100 mls/hr 10/06/18 18:00 10/10/18 10:05 Sod 2.25 gm/ Dextrose IVPB 100 mls/hr Q8H-IV [facility] Administration Protocol Azithromycin 500 mg in 250 mls @ 250 mls/hr 10/07/18 10:00 10/10/18 10:31 Zithromax 500mg Ivpb (Pre-Docked) IVPB 250 mls/hr DAILY [facility] Administration Magnesium Oxide 800 mg 10/07/18 12:15 10/10/18 10:05 Mag-Ox - PO 10/11/18 10:01 800 mg DAILY [facility] Administration Pantoprazole Sodium 20 mg 10/06/18 10:00 10/10/18 10:05 Protonix - PO 20 mg DAILY [facility] Administration Prednisone 5 mg 10/06/18 10:00 10/10/18 10:05 Deltasone - PO 5 mg DAILY [facility] Administration Spironolactone 25 mg 10/09/18 22:00 10/10/18 10:06 Aldactone - PO 25 mg BID [facility] Administration Impression 1. hx hypokalemia 2. dyspnea 3. pulm HTN 4. CHF 5. hx hematuria 6. sarcoid 7. COPD 8. a-fib 9. hx of HTN 10. hyperlipidemia Plan - cont aldactone - renal function stable - IR/urology follow up for nephrostomy tubes - ct report reviewed - will follow
[2018-10-10] MEDS: ATORVASTATIN CA 20 MG TABLET (FP) PO SCH (22:40)
[2018-10-11] MEDS ORDERED: PIPERACILLIN/TAZOBACTAM 2.25 GM VIAL IVPB ONE ×3 (01:10→17:26)
[2018-10-11] MEDS ORDERED: DEXTROSE 5%-WATER - 50 ML IVPB ONE ×3 (01:10→17:27)
[2018-10-11] MEDS: PIPERACILLIN/TAZOB 2.25 GM 2.25 GM in DEXTROSE 5%-WATER - 50 ML IVPB SCH ×3 (01:46→17:45)
[2018-10-11] MEDS: HEPARIN NA (PORCINE) 5,000 UNITS/ML 1ML VIAL SQ SCH ×3 (06:17→13:59)
[2018-10-11] MEDS: ALBUTEROL SO4 2.5/IPRATROPIUM 0.5 INH SOL 3 ML VIAL.NEB. NEB SCH ×3 (07:04→17:17)
--- NOTE | 2018-10-11 08:44 | PN ---
Physical Exam: SUBJECTIVE: Patient seen and examined this AM. She states she is feeling well this morning and had no overnight complaints. OBJECTIVE: Vital Signs Period Temp Pulse Resp BP Sys/Garza Pulse Ox Last 24 Hr 97.8 F-98.3 F 81-91 18-22 113-133/67-87 99-99 GENERAL: Oriented to person, place, and time, No acute distress HEAD: Normocephalic, atraumatic. EYES: PERRL, no scleral icterus EARS, NOSE, THROAT: Moist mucous membranes. NECK: supple without lymphadenopathy LUNGS: Diffuse rhonchi with decreased air entry at bases, expiratory wheezes HEART: Irregularly irregular, regular rate, normal S1 and S2 without murmur ABDOMEN: Soft, tender to palpation, normoactive bowel sounds, nephrostomy tubes in place with clear urine draining, small wound near left nephrostomy tube insertion site. EXTREMITIES: 2+ pulses, warm, well-perfused. Edema resolved NEUROLOGICAL: Cranial nerves II-XII grossly intact. Laboratory Results - last 24 hr 10/10/18 10/10/18 07:41 07:41 WBC 4.7 RBC 3.87 Hgb 9.0 L Hct 29.5 L MCV 76.3 L MCH 23.4 L MCHC 30.7 L RDW 18.9 H Plt Count 205 MPV 9.0 Sodium 142 Potassium 4.3 Chloride 104 Carbon Dioxide 30 Anion Gap 8 BUN 6 L Creatinine 0.6 Creat Clearance w eGFR > 60 Random Glucose 65 L Calcium 9.0 Phosphorus 3.1 Magnesium 1.9 Total Bilirubin 0.6 AST 13 L ALT < 6 L Alkaline Phosphatase 58 Total Protein 6.3 L Albumin 2.2 L Active Medications Generic Name Dose Route Start Last Admin Trade Name Freq PRN Reason Stop Dose Admin Acetaminophen 650 mg 10/06/18 15:55 10/08/18 06:31 Tylenol - PO 650 mg Q6H PRN Administration PAIN 1-3 Albuterol Sulfate 1 amp 10/06/18 00:01 Ventolin 0.083% Nebulizer Soln - NEB Q4H PRN SHORT OF BREATH/WHEEZING Albuterol Sulfate 2 puff 10/06/18 16:06 Ventolin Hfa Inhaler - IH Q4H PRN SHORTNESS OF BREATH Albuterol/Ipratropium 1 amp 10/06/18 08:00 10/11/18 07:04 Duoneb - NEB 1 amp RQID [facility] Administration Atenolol 25 mg 10/06/18 10:00 10/10/18 22:40 Tenormin - PO 25 mg BID [facility] Administration Atorvastatin Calcium 20 mg 10/06/18 22:00 10/10/18 22:40 Lipitor - PO 20 mg HS [facility] Administration Folic Acid 1 mg 10/06/18 10:00 10/10/18 10:05 Folic Acid - PO 1 mg DAILY [facility] Administration Heparin Sodium (Porcine) 5,000 unit 10/06/18 22:00 10/11/18 06:17 Heparin - SQ 5,000 unit TID [facility] Administration Piperacillin Sod/Tazobactam 50 mls @ 100 mls/hr 10/06/18 18:00 10/11/18 01:46 Sod 2.25 gm/ Dextrose IVPB 100 mls/hr Q8H-IV [facility] Administration Protocol Azithromycin 500 mg in 250 mls @ 250 mls/hr 10/07/18 10:00 10/10/18 10:31 Zithromax 500mg Ivpb (Pre-Docked) IVPB 250 mls/hr DAILY [facility] Administration Magnesium Oxide 800 mg 10/07/18 12:15 10/10/18 10:05 Mag-Ox - PO 10/11/18 10:01 800 mg DAILY [facility] Administration Pantoprazole Sodium 20 mg 10/06/18 10:00 10/10/18 10:05 Protonix - PO 20 mg DAILY [facility] Administration Prednisone 5 mg 10/06/18 10:00 10/10/18 10:05 Deltasone - PO 5 mg DAILY [facility] Administration Spironolactone 25 mg 10/09/18 22:00 10/10/18 22:41 Aldactone - PO 25 mg BID [facility] Administration ASSESSMENT/PLAN:
[2018-10-11] MEDS: ATENOLOL 25 MG TABLET (FP) PO SCH (09:55)
[2018-10-11] MEDS: FOLIC ACID 1 MG TABLET (FP) PO SCH (09:55)
[2018-10-11] MEDS: predniSONE 5 MG TABLET (UD) PO SCH (09:55)
[2018-10-11] MEDS: PANTOPRAZOLE 20 MG TABLET (FP) PO SCH (09:55)
[2018-10-11] MEDS: MAGNESIUM OXIDE 400 MG TABLET (FP) PO SCH (09:55)
[2018-10-11] MEDS: AZITHROMYCIN IVPB 500 MG/250 ML BAG IVPB SCH (09:56)
[2018-10-11] MEDS: SPIRONOLACTONE 25 MG TABLET (FP) PO SCH (09:56)
[2018-10-11 10:20] LABS: BASO % 0.9 % (0-2.0); EOS % 2.1 % (0-4.5); HEMATOCRIT 28.8 % (32.4-45.2); HEMOGLOBIN 8.2 GM/dL (10.7-15.3); LYMPH % 38.8 % (8-40); MCH 21.8 pg (25.7-33.7); MCHC 28.6 g/dl (32.0-36.0); MEAN CELL VOLUME 76.3 fl (80-96); MEAN PLT VOLUME 8.5 fl (7.5-11.1); MONO % 12.4 % (3.8-10.2); NEUT % 45.8 % (42.8-82.8); PLATELET COUNT 195 K/MM3 (134-434); RBC 3.78 M/mm3 (3.60-5.2); RDW 18.8 % (11.6-15.6); WHITE BLOOD COUNT 5.3 K/mm3 (4.0-10.0)
[2018-10-11 10:31] LABS: INR 1.23 (0.83-1.09); PROTHROMBIN TIME (PATIENT) 14.6 SEC (9.7-13.0)
[2018-10-11 11:27] LABS: ALBUMIN 2.2 g/dl (3.4-5.0); ALK PHOS 56 U/L (45-117); ANION GAP 6 MMOL/L (8-16); BILIRUBIN,TOTAL 0.6 mg/dL (0.2-1); BLOOD UREA NITROGEN 6 mg/dL (7-18); CALCIUM 9.2 mg/dL (8.5-10.1); CHLORIDE 104 mmol/L (98-107); CO2 32 mmol/L (21-32); CREATININE 0.6 mg/dL (0.55-1.3); GLUCOSE,RANDOM 65 mg/dL (74-106); MAGNESIUM 1.9 mg/dL (1.8-2.4); SGOT/AST 12 U/L (15-37); SGPT/ALT 7 U/L (13-61); SODIUM 141 mmol/L (136-145); TOT PROT 6.2 g/dl (6.4-8.2)
[2018-10-11 11:56] LABS: ANISOCYTOSIS 1+; MACROCYTOSIS 0; OVALOCYTE 1+; PLATELET ESTIMATE NORMAL; TARGET CELLS 1+
[2018-10-11] MEDS ORDERED: MAGNESIUM SULF 50% (8.12 MEQ/2 ML-1 GM VIAL) IVPB ONE (12:44)
--- NOTE | 2018-10-11 15:01 | PN ---
Teaching Attending Note Name of Resident: Brennan Gifford ATTENDING PHYSICIAN STATEMENT I saw and evaluated the patient. I reviewed the resident's note and discussed the case with the resident. I agree with the resident's findings and plan as documented. SUBJECTIVE: Patient appears comfortable. She denies pain, SOB. OBJECTIVE: Vital Signs Period Temp Pulse Resp BP Sys/Garza Pulse Ox Last 24 Hr 97.8 F-98.1 F 78-93 18-22 111-128/62-87 98-99 HEART: Irregular LUNGS: Clear ABDOMEN: Obese, soft, non-tender, non-distended, normal BS EXTREMITIES: Trace edema Laboratory Results - last 24 hr 10/11/18 10/11/18 10/11/18 09:35 09:35 09:35 WBC 5.3 RBC 3.78 Hgb 8.2 L Hct 28.8 L MCV 76.3 L MCH 21.8 L MCHC 28.6 L RDW 18.8 H Plt Count 195 MPV 8.5 Absolute Neuts (auto) 2.4 Neutrophils % 45.8 D Lymphocytes % 38.8 D Monocytes % 12.4 H Eosinophils % 2.1 Basophils % 0.9 Nucleated RBC % 0 Hypochromia 1+ Platelet Estimate Normal Polychromasia 0 Poikilocytosis 1+ Anisocytosis 1+ Microcytosis 1+ Macrocytosis 0 Target Cells 1+ Ovalocytes 1+ PT with INR 14.60 H INR 1.23 H Sodium 141 Potassium 4.0 Chloride 104 Carbon Dioxide 32 Anion Gap 6 L BUN 6 L Creatinine 0.6 Creat Clearance w eGFR > 60 Random Glucose 65 L Calcium 9.2 Phosphorus 3.0 Magnesium 1.9 Total Bilirubin 0.6 AST 12 L ALT 7 L Alkaline Phosphatase 56 Total Protein 6.2 L Albumin 2.2 L Current Medications Generic Name Dose Route Start Last Admin Trade Name Freq PRN Reason Stop Dose Admin Acetaminophen 650 mg 10/06/18 15:55 10/08/18 06:31 Tylenol - PO 650 mg Q6H PRN Administration PAIN 1-3 Albuterol Sulfate 1 amp 10/06/18 00:01 Ventolin 0.083% Nebulizer Soln - NEB Q4H PRN SHORT OF BREATH/WHEEZING Albuterol Sulfate 2 puff 10/06/18 16:06 Ventolin Hfa Inhaler - IH Q4H PRN SHORTNESS OF BREATH Albuterol/Ipratropium 1 amp 10/06/18 08:00 10/11/18 13:11 Duoneb - NEB 1 amp RQID [facility] Administration Atenolol 25 mg 10/06/18 10:00 10/11/18 09:55 Tenormin - PO 25 mg BID [facility] Administration Atorvastatin Calcium 20 mg 10/06/18 22:00 10/10/18 22:40 Lipitor - PO 20 mg HS [facility] Administration Folic Acid 1 mg 10/06/18 10:00 10/11/18 09:55 Folic Acid - PO 1 mg DAILY [facility] Administration Heparin Sodium (Porcine) 5,000 unit 10/06/18 22:00 10/11/18 13:59 Heparin - SQ Not Given TID [facility] Piperacillin Sod/Tazobactam 50 mls @ 100 mls/hr 10/06/18 18:00 10/11/18 09:55 Sod 2.25 gm/ Dextrose IVPB 100 mls/hr Q8H-IV [facility] Administration Protocol Azithromycin 500 mg in 250 mls @ 250 mls/hr 10/07/18 10:00 10/11/18 09:56 Zithromax 500mg Ivpb (Pre-Docked) IVPB 250 mls/hr DAILY [facility] Administration Pantoprazole Sodium 20 mg 10/06/18 10:00 10/11/18 09:55 Protonix - PO 20 mg DAILY [facility] Administration Prednisone 5 mg 10/06/18 10:00 10/11/18 09:55 Deltasone - PO 5 mg DAILY [facility] Administration Spironolactone 25 mg 10/09/18 22:00 10/11/18 09:56 Aldactone - PO 25 mg BID [facility] Administration ASSESSMENT AND PLAN: This is an 81 year old woman with a history of scoliosis, cervical spine surgery , left lung surgery, cholecystectomy, chronic hypoxic respiratory failure, COPD , chronic diastolic heart failure, atrial fib, CAD, HTN, pulmonary HTN, sarcoidosis, hemorrhagic cystitis, bilateral nephrostomy tube placement who presented to the ED with a cough. 1. Sepsis secondary to Klebsiella UTI - Treated with Zosyn because of history of ESBL - Change to Keflex at discharge 2. Chronic diastolic heart failure - Stable - Continue Aldactone 3. Chronic hypoxic respiratory failure secondary to COPD - Stable - Continue Prednisone, DuoNeb, albuterol as needed, oxygen 4. History of hemorrhagic cystitis, bilateral nephrostomy tubes - Follow up with IR scheduled for 10/19 5. Permanent atrial fib - Continue atenolol - Not on anticoagulation secondary to recent hemorrhagic cystitis 6. Hyperlipidemia - Continue Lipitor 7. HTN - Continue atenolol 8. CAD - Continue atenolol, Lipitor 9. Sarcoidosis 10. Pulmonary HTN 11. Disposition - Ok for discharge to [facility]
--- NOTE | 2018-10-11 15:04 | PN ---
Progress Note, Physician History of Present Illness: Pt seen and examined at bedside. She is awake and alert. She denies shortness of breath. - Current Medication List Current Medications: Active Medications Acetaminophen (Tylenol -) 650 mg PO Q6H PRN PRN Reason: PAIN 1-3 Last Admin: 10/08/18 06:31 Dose: 650 mg Albuterol Sulfate (Ventolin 0.083% Nebulizer Soln -) 1 amp NEB Q4H PRN PRN Reason: SHORT OF BREATH/WHEEZING Albuterol Sulfate (Ventolin Hfa Inhaler -) 2 puff IH Q4H PRN PRN Reason: SHORTNESS OF BREATH Albuterol/Ipratropium (Duoneb -) 1 amp NEB RQID [facility] Last Admin: 10/11/18 13:11 Dose: 1 amp Atenolol (Tenormin -) 25 mg PO BID [facility] Last Admin: 10/11/18 09:55 Dose: 25 mg Atorvastatin Calcium (Lipitor -) 20 mg PO HS [facility] Last Admin: 10/10/18 22:40 Dose: 20 mg Folic Acid (Folic Acid -) 1 mg PO DAILY [facility] Last Admin: 10/11/18 09:55 Dose: 1 mg Heparin Sodium (Porcine) (Heparin -) 5,000 unit SQ TID [facility] Last Admin: 10/11/18 13:59 Dose: Not Given Piperacillin Sod/Tazobactam (Sod 2.25 gm/ Dextrose) 50 mls @ 100 mls/hr IVPB Q8H-IV LISA; Protocol Last Admin: 10/11/18 09:55 Dose: 100 mls/hr Azithromycin (Zithromax 500mg Ivpb (Pre-Docked)) 500 mg in 250 mls @ 250 mls/ hr IVPB DAILY [facility] Last Admin: 10/11/18 09:56 Dose: 250 mls/hr Pantoprazole Sodium (Protonix -) 20 mg PO DAILY [facility] Last Admin: 10/11/18 09:55 Dose: 20 mg Prednisone (Deltasone -) 5 mg PO DAILY [facility] Last Admin: 10/11/18 09:55 Dose: 5 mg Spironolactone (Aldactone -) 25 mg PO BID [facility] Last Admin: 10/11/18 09:56 Dose: 25 mg - Objective Vital Signs: Vital Signs Temperature 98.0 F 10/11/18 14:43 Pulse Rate 93 H 10/11/18 14:43 Respiratory Rate 22 H 10/11/18 14:43 Blood Pressure 111/64 10/11/18 14:43 O2 Sat by Pulse Oximetry (%) 98 10/11/18 09:00 Constitutional: Yes: Calm Eyes: Yes: Conjunctiva Clear HENT: Yes: Atraumatic Neck: Yes: Supple Cardiovascular: Yes: S1, S2 Respiratory: Yes: CTA Bilaterally Gastrointestinal: Yes: Normal Bowel Sounds, Soft Genitourinary: Yes: Other (bilateral nephrostomy tubes) Musculoskeletal: Yes: WNL Edema: Yes Edema: LLE: Trace, RLE: Trace Neurological: Yes: Oriented Psychiatric: Yes: Oriented Labs: CBC, BMP 10/11/18 09:35 10/11/18 09:35 INR, PTT INR 1.23 (0.83-1.09) H 10/11/18 09:35 Problem List - Problems (1) Acute CHF (congestive heart failure) Code(s): I50.9 - HEART FAILURE, UNSPECIFIED (2) CHF (congestive heart failure) Code(s): I50.9 - HEART FAILURE, UNSPECIFIED (3) COPD (chronic obstructive pulmonary disease) Code(s): J44.9 - CHRONIC OBSTRUCTIVE PULMONARY DISEASE, UNSPECIFIED Qualifiers: COPD type: COPD with acute exacerbation Qualified Code(s): J44.1 - Chronic obstructive pulmonary disease with (acute) exacerbation Assessment/Plan Current Medications Generic Name Dose Route Start Last Admin Trade Name Freq PRN Reason Stop Dose Admin Acetaminophen 650 mg 10/06/18 15:55 10/08/18 06:31 Tylenol - PO 650 mg Q6H PRN Administration PAIN 1-3 Albuterol Sulfate 1 amp 10/06/18 00:01 Ventolin 0.083% Nebulizer Soln - NEB Q4H PRN SHORT OF BREATH/WHEEZING Albuterol Sulfate 2 puff 10/06/18 16:06 Ventolin Hfa Inhaler - IH Q4H PRN SHORTNESS OF BREATH Albuterol/Ipratropium 1 amp 10/06/18 08:00 10/11/18 13:11 Duoneb - NEB 1 amp RQID LISA Administration Atenolol 25 mg 10/06/18 10:00 10/11/18 09:55 Tenormin - PO 25 mg BID LISA Administration Atorvastatin Calcium 20 mg 10/06/18 22:00 10/10/18 22:40 Lipitor - PO 20 mg HS LISA Administration Folic Acid 1 mg 10/06/18 10:00 10/11/18 09:55 Folic Acid - PO 1 mg DAILY [facility] Administration Heparin Sodium (Porcine) 5,000 unit 10/06/18 22:00 10/11/18 13:59 Heparin - SQ Not Given TID LISA Piperacillin Sod/Tazobactam 50 mls @ 100 mls/hr 10/06/18 18:00 10/11/18 09:55 Sod 2.25 gm/ Dextrose IVPB 100 mls/hr Q8H-IV LISA Administration Protocol Azithromycin 500 mg in 250 mls @ 250 mls/hr 10/07/18 10:00 10/11/18 09:56 Zithromax 500mg Ivpb (Pre-Docked) IVPB 250 mls/hr DAILY [facility] Administration Pantoprazole Sodium 20 mg 10/06/18 10:00 10/11/18 09:55 Protonix - PO 20 mg DAILY [facility] Administration Prednisone 5 mg 10/06/18 10:00 10/11/18 09:55 Deltasone - PO 5 mg DAILY [facility] Administration Spironolactone 25 mg 10/09/18 22:00 10/11/18 09:56 Aldactone - PO 25 mg BID LISA Administration Impression 1. hx hypokalemia 2. dyspnea 3. pulm HTN 4. CHF 5. hx hematuria 6. sarcoid 7. COPD 8. a-fib 9. hx of HTN 10. hyperlipidemia Plan - urology follow up - nephrostomy care - cont aldactone, pt is tolerating bid dosing - will follow prn
--- NOTE | 2018-10-11 16:33 | DS ---
Physical Exam: SUBJECTIVE: Patient seen and examined this AM. She states she is feeling very well today. OBJECTIVE: Vital Signs Period Temp Pulse Resp BP Sys/Garza Pulse Ox Last 24 Hr 97.8 F-98.0 F 78-93 18-22 111-128/62-69 98-99 PHYSICAL EXAM GENERAL: Oriented to person, place, and time, No acute distress HEAD: Normocephalic, atraumatic. EYES: PERRL, no scleral icterus EARS, NOSE, THROAT: Moist mucous membranes. NECK: supple without lymphadenopathy LUNGS: Diffuse rhonchi with decreased air entry at bases, expiratory wheezes HEART: Irregularly irregular, regular rate, normal S1 and S2 without murmur ABDOMEN: Soft, tender to palpation, normoactive bowel sounds, nephrostomy tubes in place with clear urine draining, small wound near left nephrostomy tube insertion site. EXTREMITIES: 2+ pulses, warm, well-perfused. Edema resolved NEUROLOGICAL: Cranial nerves II-XII grossly intact. LABS Laboratory Results - last 24 hr 10/11/18 10/11/18 10/11/18 09:35 09:35 09:35 WBC 5.3 RBC 3.78 Hgb 8.2 L Hct 28.8 L MCV 76.3 L MCH 21.8 L MCHC 28.6 L RDW 18.8 H Plt Count 195 MPV 8.5 Absolute Neuts (auto) 2.4 Neutrophils % 45.8 D Lymphocytes % 38.8 D Monocytes % 12.4 H Eosinophils % 2.1 Basophils % 0.9 Nucleated RBC % 0 Hypochromia 1+ Platelet Estimate Normal Polychromasia 0 Poikilocytosis 1+ Anisocytosis 1+ Microcytosis 1+ Macrocytosis 0 Target Cells 1+ Ovalocytes 1+ PT with INR 14.60 H INR 1.23 H Sodium 141 Potassium 4.0 Chloride 104 Carbon Dioxide 32 Anion Gap 6 L BUN 6 L Creatinine 0.6 Creat Clearance w eGFR > 60 Random Glucose 65 L Calcium 9.2 Phosphorus 3.0 Magnesium 1.9 Total Bilirubin 0.6 AST 12 L ALT 7 L Alkaline Phosphatase 56 Total Protein 6.2 L Albumin 2.2 L HOSPITAL COURSE: Date of Admission:10/05/18 Date of Discharge: 10/11/18 HPI on Admission: 81 yo F PMH of scoliosis, cervical spine surgery, left lung surgery, cholecystectomy, Chronic respiratory failure, COPD (O2-dependent on 3L NC), diastolic CHF, A-fib (not on AC), CAD, HTN, Pulmonary HTN, sarcoidosis, hemorrhagic cystitis (s/p cystoscopy 08/11, s/p b/l nephrostomy tube placement 08/16), was brought in [facility] with a cough for the past week. The patient additionally reports dizziness and right sided flank pain. Upon presentation to the ER the patient noted to be febrile. At last admission: supratherapeutic INR - attributed to liver path vs nutrition vs abx completed tx of MSSA w/ cefazolin ESBL covered by cefazolin blood stools, FOBT pos, will need colonoscopy when stable feretin 1000s, iron nl Hospital Course: UA was notable for a UTI, cultures grew Klebsiella and Proteus which were relatively mart sensitive. She was covered with azithromycin for 5 days as her initial complaint was a cough and there was a concern for atypical pneumonia. She was treated with Zosyn for her UTI as she has grown ESBL in the past until her cultures came back. She was seen by ID who agreed that she could be discharged on Keflex for a total of 10 days of treatment. She still has her bilateral nephrostomy tubes. Case was discussed with IR who made an appointment for October 19 at 11am. Discussed plan with patient and placed all pre procedural instructions in the discharge plan. Minutes to complete discharge: 40 Discharge Summary Reason For Visit: URINARY TRACT INFECTION, PNEUMONIA Current Active Problems UTI (urinary tract infection) (Acute) Condition: Stable - Instructions Diet, Activity, Other Instructions: You were admitted with a cough, though you were found to have a urinary tract infection. You were seen by Infectious disease doctor who recommended your antibiotics. You completed your course of antibiotics and are clinically much improved. Your cough is improved, and while still present, back at your normal baseline. At this point you are medically safe to return to the [facility] facility. You should continue all of your home medications as they were prescribed to you prior to this hospitalization with one exception. Your Aldactone (spironolactone) dose was increased from 25 mg by mouth once daily. IT IS NOW TWICE DAILY. You should take one 25 mg tablet in the morning and one 25 mg tablet in the evening. Your antibiotics are being switched to an oral tablet for 4 more days. Starting tomorrow (10/12) you should take Keflex 500 mg twice daily, one pill in the morning and one at night. You should follow up with your primary care physician within one week of discharge from the hospital. You should follow up with Interventional Radiology (Dr. Watkins's information has been provided) as soon as possible in order to have your nephrostomy tubes removed. You have an appointment for October 19 at 11am. You should be at registration at [facility] by 9:30 am that morning. Avoid taking any NSAIDs like Ibuprofen or Motrin or any blood thinners for 5 days prior to the procedure. You can take Tylenol for pain as needed. If you have any high fevers, severe worsening shortness of breath or any other concerning symptoms, you should be evaluated by your doctor or return to the Emergency Department for further evaluation. Referrals: Lester Barrera MD [Primary Care Provider] - 1 Week Janak Watkins MD [Staff Physician] - 1 Week Disposition: [facility] - Home Medications Comprehensive Discharge Medication List: Ambulatory Orders Atorvastatin Ca [Lipitor] 20 mg PO HS 04/16/18 Folic Acid 1 mg PO DAILY 04/16/18 Ipratropium [facility] [place] [Atrovent Hfa] 1 neb NEB Q4H PRN 04/17/18 Albuterol Sulfate [Proventil HFA Inhaler -] 1 - 2 inh PO Q4H PRN 06/20/18 Budesonide/Formeterol Fumarate [SYMBICORT 160/4.5mcg -] 1 inh PO BID 06/20/18 Omeprazole 20 mg PO DAILY 06/20/18 Atenolol [Tenormin] 25 mg PO BID #30 tablet 06/23/18 Polyethylene Glycol 3350 [Miralax 119 gm Btl -] 17 gm PO BID bottle 06/23/18 Spironolactone [Aldactone] 25 mg PO DAILY #2 tablet 09/11/18 predniSONE [Deltasone -] 5 mg PO DAILY #7 tablet 09/11/18 Acetaminophen [Tylenol] 650 mg PO Q6H PRN 10/06/18 Escitalopram Oxalate [Lexapro -] 10 mg PO DAILY 10/06/18 Cephalexin Monohydrate [Keflex -] 500 mg PO BID 4 Days #8 capsule 10/11/18 Miscellaneous Medical Supply [Outpatient Order] 1 each ASDIR #1 misc This patient is new to me today: No Emergency Visit: Yes ED Registration Date: 10/05/18 Care time: The patient presented to the Emergency Department on the above date and was hospitalized for further evaluation of their emergent condition. Critical Care patient: No - Discharge Referral Referred to [facility] Med P.C.: No
--- NOTE | 2018-10-11 16:38 | PN ---
Progress Note (short form) - Note Progress Note: Chief Complaint: right flank pain s: no chest pain, palps, dizziness, lightheadedness. sob improved. Vital Signs: Vital Signs Period Temp Pulse Resp BP Sys/Garza Pulse Ox Last 24 Hr 97.8 F-98.0 F 78-93 18-22 111-128/62-69 98-99 Constitutional: Yes: Well Nourished, No Distress Eyes: Yes: Conjunctiva Clear Neck: Yes: Supple, Trachea Midline Respiratory: Yes: Regular, rales at bases Gastrointestinal: Yes: Normal Bowel Sounds, Soft Cardiovascular: Yes: Pulse Irregular JVD: no Heart Sounds: Yes: S1, S2 Edema: No Peripheral Pulses WNL: Yes Integumentary: No: Jaundice diaphoresis Neurological: Yes: Alert, Oriented Current Medications Generic Name Dose Route Start Last Admin Trade Name Freq PRN Reason Stop Dose Admin Acetaminophen 650 mg 10/06/18 15:55 10/08/18 06:31 Tylenol - PO 650 mg Q6H PRN Administration PAIN 1-3 Albuterol Sulfate 1 amp 10/06/18 00:01 Ventolin 0.083% Nebulizer Soln - NEB Q4H PRN SHORT OF BREATH/WHEEZING Albuterol Sulfate 2 puff 10/06/18 16:06 Ventolin Hfa Inhaler - IH Q4H PRN SHORTNESS OF BREATH Albuterol/Ipratropium 1 amp 10/06/18 08:00 10/11/18 13:11 Duoneb - NEB 1 amp RQID LISA Administration Atenolol 25 mg 10/06/18 10:00 10/11/18 09:55 Tenormin - PO 25 mg BID LISA Administration Atorvastatin Calcium 20 mg 10/06/18 22:00 10/10/18 22:40 Lipitor - PO 20 mg HS LISA Administration Folic Acid 1 mg 10/06/18 10:00 10/11/18 09:55 Folic Acid - PO 1 mg DAILY LISA Administration Heparin Sodium (Porcine) 5,000 unit 10/06/18 22:00 10/11/18 13:59 Heparin - SQ Not Given TID LISA Piperacillin Sod/Tazobactam 50 mls @ 100 mls/hr 10/06/18 18:00 10/11/18 09:55 Sod 2.25 gm/ Dextrose IVPB 100 mls/hr Q8H-IV LISA Administration Protocol Azithromycin 500 mg in 250 mls @ 250 mls/hr 10/07/18 10:00 10/11/18 09:56 Zithromax 500mg Ivpb (Pre-Docked) IVPB 250 mls/hr DAILY LISA Administration Pantoprazole Sodium 20 mg 10/06/18 10:00 10/11/18 09:55 Protonix - PO 20 mg DAILY LISA Administration Prednisone 5 mg 10/06/18 10:00 10/11/18 09:55 Deltasone - PO 5 mg DAILY LISA Administration Spironolactone 25 mg 10/09/18 22:00 10/11/18 09:56 Aldactone - PO 25 mg BID LISA Administration Vital Signs Period Temp Pulse Resp BP Sys/Garza Pulse Ox Last 24 Hr 97.8 F-98.0 F 78-93 - 111-128/62-69 98-99 Echo 05/03: nl LVEF. mild RVE, mild-mod RV hypo. L/NEENA. mod MR/TR. RVSP at least 88 mmHg Echo 03/2017: Mild conc lvh. nl lv/rv size/fn, mod ronnie, mod mr, mod tr, rvsp 40- 50 EKG: afib 85, nl qtc, no ischemic changes CXR 08/19: stable bibasilar changes L > R ct chest: trace/small effusions, no sig chf Assessment/Plan 81F h/o afib, CHF, COPD (on home O2 2L), HTN, pulm HTN, hematuria s/p b/l perc nephrostomy sent from [place] for right flank pain. flank pain, uti, fever: -08/2018 had obstructive uropathy with bilateral hydro and b/l perc nephrostomy -abx per PMD/ID afib: - HR control overall acceptable at present, cont bb - holding eliquis for hx of severe hematuria, anemia. copd/pulm sarcoid -apears stable, plan per pulm chronic diast CHF, cor pulmonale with RV failure: -diuretics/lasix held last visit due to hypokalemia -continue home aldactone dose cad, NSTEMI, staph bacteremia 07/2018: -periop hypotension 08/11 during cysto, briefly on pressors. 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 ECG 08/[address] depressions inferior leads, improved on 08/12 tracing--cannot exclude Type I ME at time of events. -AC initially held for gross hematuria with large clots/hydronephrosis, was back on eliquis and now stopped again due to hematuria. defer aspirin -BB and afib HR control as doing -defer invasive CAD mgmt approach given Type II ME > Type I here, plus pt's poor functional status with competing mortality limitations from severe lung dz , low likelihood to improve prognosis, and risks > benefits (including bleeding , AIN) cardiac rojas remains stable
[2018-10-11 17:58] VITALS: BP 134/81; PULSE 68
[2018-10-11 18:27] VITALS: TEMP 98
[2018-10-11] MEDS: ACETAMINOPHEN 325 MG TABLET (FP) PO PRN (18:43)
== END 2018-10-11 19:45 | DRG 872 ==
LOC: JER 15:26 → JERBED 22:07 → J5S 10-06 10:08
PROVIDERS: ADMIT Internal Medicine; ATTEND Internal Medicine
DX: A41.9 Sepsis, unspecified organism (principal); N39.0 Urinary tract infection, site not specified; I50.32 Chronic diastolic (congestive) heart failure; J96.11 Chronic respiratory failure with hypoxia; J98.11 Atelectasis; I11.0 Hypertensive heart disease with heart failure; J44.9 Chronic obstructive pulmonary disease, unspecified; E87.6 Hypokalemia; D50.9 Iron deficiency anemia, unspecified; E83.42 Hypomagnesemia; E83.39 Other disorders of phosphorus metabolism; B96.1 Klebsiella pneumoniae [K. pneumoniae] as the cause of diseases classified elsewhere; E88.09 Other disorders of plasma-protein metabolism, not elsewhere classified; B96.4 Proteus (mirabilis) (morganii) as the cause of diseases classified elsewhere; I48.2 Chronic atrial fibrillation; D86.9 Sarcoidosis, unspecified; Z93.6 Other artificial openings of urinary tract status; D64.9 Anemia, unspecified; I25.10 Atherosclerotic heart disease of native coronary artery without angina pectoris; D51.0 Vitamin B12 deficiency anemia due to intrinsic factor deficiency; F41.9 Anxiety disorder, unspecified; Z99.81 Dependence on supplemental oxygen; I27.20 Pulmonary hypertension, unspecified; E78.5 Hyperlipidemia, unspecified; I34.0 Nonrheumatic mitral (valve) insufficiency; I36.1 Nonrheumatic tricuspid (valve) insufficiency; F32.9 Major depressive disorder, single episode, unspecified; I25.2 Old myocardial infarction
CPT/HCPCS: 36415; 71045-TC-FY; 71250-TC; 74178-TC; 80048; 80053; 81003; 81015; 82803; 83605; 83735; 83880; 84100; 84484; 85025; 85027; 85610; 85730; 87040; 87086; 87186; 87804; 87899; 93005; 93010; 94640; 97116-GP; 97162-GP; 99285-25; J1644; J7030

== ENCOUNTER 2018-10-12 21:45 | Emergency (ER) | payer OTHER ==
[2018-10-12 21:59] VITALS: BMI 30.9
--- NOTE | 2018-10-12 22:34 | PDOC ---
Attending Attestation - HPI HPI: 10/12/18 22:45 The patient is a 81 year old female, with a significant past medical history of hypertension, coronary artery disease, CHF (diastolic), COPD (O2 dependent on 3L nasal cannula) and hemorrhagic cystitis (bilateral nephrostomy tubes in place ), who presents to the emergency department via EMS from [facility] with left nephrostomy tube displaced today while being cleaned at [place] after being discharged from the hospital yesterday. Allergies: None reported. Past Surgical History: Cervical spine surgery w/ hardware; Lung Surgery; Cholecystectomy; Nephrostomy tube placement (bilateral). Social History: Non-smoker. Denies alcohol or drug use. PCP: Dr. Barrera - Physicial Exam PE: 10/12/18 22:45 Constitutional: Awake, alert, oriented. No acute distress. Head: Normocephalic. Atraumatic Eyes: PERRL. EOMI. Conjunctivae are not pale. ENT: Mucous membranes are moist and intact. Posterior pharynx without exudates or erythema. Uvula midline. Neck: Supple. Full ROM. No lymphadenopathy. Cardiovascular: Regular rate. Regular rhythm. S1, S2 regular. Distal pulses are 2+ and symmetric. Pulmonary/Chest: No evidence of respiratory distress. Clear to auscultation bilaterally No wheezing, rales or rhonchi. Abdominal: (+) Right nephrostomy tube in place. Left nephrostomy tube is absent. Obese. Soft and non-distended. There is no tenderness. No rebound, guarding or rigidity. No organomegaly. No palpable masses. Good bowel sounds. Back: No CVA tenderness. Musculoskeletal: No edema. No cyanosis. No clubbing. Full range of motion in all extremities. Nocalf tenderness. Radial/pedal pulses are intact and 2+ bilaterally Skin: (+) Skin is hot to touch. No petechiae. No purpura. Neurological: Alert and oriented to person, place, and time. Cranial nerves II -XII are grossly intact. Normal speech. Strength is grossly symmetric. No sensory deficits. Psychiatric: Good eye contact. Normal interaction, affect and behavior. - Medical Decision Making 10/12/18 22:46 Documentation prepared by Valentine Joyner, acting as regional medical director for Suzette Bailey DO 10/13/18 01:23 Dr. Nataliia Colon (urology) was paged via phone answering service at this time. 10/13/18 01:51 Dr. Nataliia Colon (urology) was paged via phone answering service at this time and the case was discussed with Dr. Maria. <Valentine Joyner - Last Filed: 10/13/18 01:54> - Resident Resident Name: Cookie Paris - ED Attending Attestation I have performed the following: I have examined & evaluated the patient, The case was reviewed & discussed with the resident, I agree w/resident's findings & plan, Exceptions are as noted - Medical Decision Making 10/12/18 22:34 I, Dr. Suzette Bailey, DO, attest that this document has been prepared under my direction and personally reviewed by me in its entirety. I further attest, that it accurately reflects all work, treatment, procedures and medical decision -making performed by me. 10/12/18 23:04 a/p: 81yo female with b/l nephrostomy tubes -pt states she was getting cleaned up and the L nephrostomy tube fell out -pt sent from her [facility] for nephrostomy tube replacement -hx of ESBL e coli -pt will need obs for IR to replace her nephrostomy tube in the AM -will send labs, pt is nontoxic in appearance 10/13/18 01:[address] Santos who states the nephrostomy tube does not need to be replaced. its ok to leave the L side out <Suzette Bailey - Last Filed: 10/13/18 01:56>
--- NOTE | 2018-10-12 22:38 | PDOC ---
History of Present Illness - General Chief Complaint: Urinary Catheter Problem Stated Complaint: WOUND Time Seen by Provider: 10/12/18 22:25 History Source: Patient - History of Present Illness Initial Comments: 10/12/18 22:41 Patient is an 81 year old female with a PMHx of COPD (dependent on 3L o2), Chronic respiratory failure, Atrial Fibrillation (recently take off of eliquis due to hematuria) Diastolic CHF, CAD, HTN, pulmonary HTN, sarcoidosis, hemorrhagic cystitis (s/p cystoscopy on 08/11 with b/l nephrostomy tube placement 08/16) who was BIBEMS from the [facility] after her left nephrostomy tube was displaced. Patient reports the nurse was helping her clean up and she accidentally removed the nephrostomy tube, which prompted the senior care to call EMS and bring her to the hospital for replacement. Patient is scheduled to have IR guided bilateral Nephrostomy tube removal by Dr. Watkins on (10/19/2018). Patient currently denies any acute problems but states she has chronic pain in her stomach and back. Patient otherwise denies fever, chills, nausea, vomiting , chest pain, palpitations, headaches, diarrhea, constipation. Patient recently discharged PMHx: Chronic respiratory failure COPD (O2-dependent on 3L NC) Diastolic CHF CAD HTN Pulmonary HTN sarcoidosis hemorrhagic cystitis (s/p cystoscopy 08/11, s/p b/l nephrostomy tube placement 08/16) PSHx cervical spine surgery left lung surgery cholecystectomy Social Hx: Denies smoking Denies drugs Denies alcohol use Lives at a [facility] 10/13/18 00:39 Past History - Past Medical History Allergies/Adverse Reactions: Allergies Allergy/AdvReac Type Severity Reaction Status Date / Time No Known Allergies Allergy Verified 10/12/18 21:57 Home Medications: Ambulatory Orders Atorvastatin Ca [Lipitor] 20 mg PO HS 04/16/18 Folic Acid 1 mg PO DAILY 04/16/18 Ipratropium [place] [Atrovent Hfa] 1 neb NEB Q4H PRN 04/17/18 Albuterol Sulfate [Proventil HFA Inhaler -] 1 - 2 inh PO Q4H PRN 06/20/18 Budesonide/Formeterol Fumarate [SYMBICORT 160/4.5mcg -] 1 inh PO BID 06/20/18 Omeprazole 20 mg PO DAILY 06/20/18 Atenolol [Tenormin] 25 mg PO BID #30 tablet 06/23/18 Polyethylene Glycol 3350 [Miralax 119 gm Btl -] 17 gm PO BID bottle 06/23/18 Spironolactone [Aldactone] 25 mg PO DAILY #2 tablet 09/11/18 predniSONE [Deltasone -] 5 mg PO DAILY #7 tablet 09/11/18 Acetaminophen [Tylenol] 650 mg PO Q6H PRN 10/06/18 Escitalopram Oxalate [Lexapro -] 10 mg PO DAILY 10/06/18 Cephalexin Monohydrate [Keflex -] 500 mg PO BID 4 Days #8 capsule 10/11/18 Miscellaneous Medical Supply [Outpatient Order] 1 each ASDIR #1 misc Anemia: Yes (Pernicious) Asthma: Yes Cancer: No Cardiac Disorders: Yes (AF) CVA: No COPD: Yes CHF: Yes Dementia: No Diabetes: No GI Disorders: Yes (gastritis,) Disorders: No HTN: Yes Hypercholesterolemia: Yes Liver Disease: No Psychiatric Problems: Yes (ANXIETY.) Seizures: No Thyroid Disease: No - Surgical History Abdominal Surgery: Yes (abdominal) Appendectomy: No Cardiac Surgery: No Cholecystectomy: Yes Lung Surgery: No (PT DENIES) Neurologic Surgery: No Orthopedic Surgery: Yes (cervical spine/hardware) - Immunization History Immunization Up to Date: No - Suicide/Smoking/Psychosocial Hx Smoking Status: No Smoking History: Never smoked Years of Tobacco Use: 0 Have you smoked in the past 12 months: No Number of Cigarettes Smoked Daily: 0 Hx Alcohol Use: No Drug/Substance Use Hx: No Substance Use Type: None Hx Substance Use Treatment: No Review of Systems - Review of Systems Constitutional: No: Chills, Diaphoresis, Fever HEENTM: No: Nose Congestion, Tinnitus Respiratory: Yes: Cough (chronic), Shortness of Breath (chronic), Wheezing Cardiac (ROS): No: Chest Pain, Edema, Lightheadedness, Palpitations, Syncope, Chest Tightness ABD/GI: No: Constipated, Diarrhea, Nausea, Vomiting, Abdominal cramping : No: Burning, Dysuria, Discharge Musculoskeletal: Yes: Back Pain. No: Muscle Weakness Integumentary: No: Bruising, Flushing Neurological: No: Headache, Numbness, Paresthesia, Tremors *Physical Exam - Vital Signs Last Vital Signs Temp Pulse Resp BP Pulse Ox 98.3 F 93 H 18 130/94 96 10/12/18 21:57 10/12/18 21:57 10/12/18 21:57 10/12/18 21:57 10/12/18 21:57 - Physical Exam General Appearance: Yes: Other (Awake, alert, in no acute distress ) HEENT: positive: EOMI, MAUREEN. negative: Tonsillar Exudate, Tonsillar Erythema Neck: negative: Decreased range of motion, Lymphadenopathy (R), Lymphadenopathy (L) Respiratory/Chest: positive: Other (decreased breath sounds bilaterally with mild expiratory wheezing ) Cardiovascular: positive: Regular Rate, S1, S2, Irregularly Irregular. negative : Edema, JVD Gastrointestinal/Abdominal: positive: Other (Soft, mild tenderness upon palpation of RLQ, normoactive bowel sounds, no rebound or guarding ) Extremity: positive: Normal Capillary Refill, Normal Inspection, Normal Range of Motion, Other ((+) Right nephrostomy tube draining yellow urine with no erythema or drainage around the insertion site. ). negative: Swelling, Erythema Integumentary: positive: Normal Color, Dry, Warm Neurologic: positive: director media II-XII NML intact, Fully Oriented, Alert, Normal Mood/ Affect, Normal Response, Motor Strength 5/5 Moderate Sedation - Procedure Monitoring Vital Signs: Procedure Monitoring Vital Signs Temperature 98.3 F 10/12/18 21:57 Pulse Rate 93 H 10/12/18 21:57 Respiratory Rate 18 10/12/18 21:57 Blood Pressure 130/94 10/12/18 21:57 O2 Sat by Pulse Oximetry (%) 96 10/12/18 21:57 ED Treatment Course - LABORATORY CBC & Chemistry Diagram: 10/13/18 00:30 10/13/18 01:47 Medical Decision Making - Medical Decision Making 10/12/18 23:13 Patient is an 81 year old female with a significant PMHx who has bilateral nephrostomy tubes placed 08/16/18 with a scheduled appointment for IR guided removal of bilateral nephrostomy tubes on 10/19/17 who presented today after displacement of left nephrostomy tube at the senior care. -CBC, CMP, PT/INR -U/A and urine culture -EKG -Will likely require admission for nephrostomy tube placement or possibly removal of right nephrostomy tube 10/13/18 01:35 -Labs hemolyzed. Will repeat CMP 10/13/18 02:28 -CMP unremarkable -Spoke to Urology, Dr. Aldana, and reported no need to replace left nephrostomy tube and may return back on her scheduled date 10/19/2018 to remove the right nephrostomy tube. -Patient will be discharged back to the senior care. *DC/Admit/Observation/Transfer Diagnosis at time of Disposition: Nephrostomy tube displaced - Discharge Dispostion Disposition: HOME Condition at time of disposition: Stable Decision to Admit order: No - Referrals Referrals: Janak Watkins MD [Staff Physician] - - Patient Instructions Additional Instructions: -You were seen here for left nephrostomy tube displacement. We spoke to Urology and does not recommend to insert the nephrostomy tube back in. -You have a scheduled appointment 10/19/2018 to remove the right nephrostomy tube. Please come at the time of appointment given to you. -If you start to experience any symptoms such as bleeding from insertion site, return to the emergency immediately. -You may take Tylenol for pain as directed. - Post Discharge Activity
[2018-10-13 00:47] LABS: BASO % 1.1 % (0-2.0); EOS % 0.1 % (0-4.5); HEMATOCRIT 28.3 % (32.4-45.2); HEMOGLOBIN 8.9 GM/dL (10.7-15.3); MCH 23.6 pg (25.7-33.7); MCHC 31.6 g/dl (32.0-36.0); MEAN CELL VOLUME 74.6 fl (80-96); MEAN PLT VOLUME 8.8 fl (7.5-11.1); MONO % 7.9 % (3.8-10.2); NEUT % 58.9 % (42.8-82.8); PLATELET COUNT 246 K/MM3 (134-434); RBC 3.79 M/mm3 (3.60-5.2); RDW 18.5 % (11.6-15.6); WHITE BLOOD COUNT 4.6 K/mm3 (4.0-10.0)
[2018-10-13 01:04] LABS: INR 1.12 (0.83-1.09); PROTHROMBIN TIME (PATIENT) 13.2 SEC (9.7-13.0)
[2018-10-13 01:07] LABS: ACTIVATED PTT 19.6 SECONDS (25.2-36.5)
--- NOTE | 2018-10-13 01:57 | PN ---
Teaching Attending Note Name of Resident: Ramon Sharma Entered in error; patient is being discharged back to facility Should plan change please recall medicine. Thanks.
[2018-10-13 02:26] LABS: ALBUMIN 2.3 g/dl (3.4-5.0); ALK PHOS 57 U/L (45-117); ANION GAP 3 MMOL/L (8-16); BILIRUBIN,TOTAL 0.6 mg/dL (0.2-1); BLOOD UREA NITROGEN 6 mg/dL (7-18); CALCIUM 9.3 mg/dL (8.5-10.1); CHLORIDE 104 mmol/L (98-107); CO2 33 mmol/L (21-32); CREATININE 0.6 mg/dL (0.55-1.3); GLUCOSE,RANDOM 113 mg/dL (74-106); SGOT/AST 19 U/L (15-37); SGPT/ALT 8 U/L (13-61); SODIUM 140 mmol/L (136-145); TOT PROT 6.6 g/dl (6.4-8.2)
[2018-10-13 03:37] VITALS: BP 128/90; PULSE 78; TEMP 98.2
--- NOTE | 2018-10-13 09:37 | EKG ---
Test Reason : Blood Pressure : / mmHG Vent. Rate : 073 BPM Atrial Rate : 039 BPM P-R Int : 000 ms QRS Dur : 080 ms QT Int : 396 ms P-R-T Axes : 000 003 -26 degrees QTc Int : 436 ms ATRIAL FIBRILLATION ABNORMAL ECG WHEN COMPARED WITH ECG OF 05-OCT-2018 16:44, NO SIGNIFICANT CHANGE WAS FOUND Confirmed by CLAIRE SALMERON MD ([id number]) on 10/13/2018 9:36:44 AM Referred By: Confirmed By:CLAIRE SALMERON MD
== END 2018-10-13 03:55 ==
LOC: JER 21:45
DX: T83.022A Displacement of nephrostomy catheter, initial encounter (principal); I25.10 Atherosclerotic heart disease of native coronary artery without angina pectoris; I10 Essential (primary) hypertension; I50.30 Unspecified diastolic (congestive) heart failure; J44.9 Chronic obstructive pulmonary disease, unspecified; Z99.81 Dependence on supplemental oxygen; I48.91 Unspecified atrial fibrillation; N30.01 Acute cystitis with hematuria; J96.10 Chronic respiratory failure, unspecified whether with hypoxia or hypercapnia; I27.20 Pulmonary hypertension, unspecified; D51.0 Vitamin B12 deficiency anemia due to intrinsic factor deficiency; F41.9 Anxiety disorder, unspecified
CPT/HCPCS: 36415; 80053; 85025; 85610; 85730; 93005; 93010; 99283-25

== ENCOUNTER 2018-11-09 10:24 | Day surgery (SDC) | payer OTHER ==
[2018-11-08 09:13] VITALS: BMI 28.7
[2018-11-09 16:16] VITALS: TEMP 98.6
[2018-11-09 18:30] VITALS: BP 149/80; PULSE 83
== END 2018-11-09 17:45 | disposition home or self-care (01) ==
LOC: JRADIR 10:24
PROVIDERS: ATTEND Student in an Organized Health Care Education/Training Program
PROC: BT14YZZ Fluoroscopy of Kidneys, Ureters and Bladder using Other Contrast (ICD-10-PCS; principal; 2018-11-09)
PROC: 0T763DZ Dilation of Right Ureter with Intraluminal Device, Percutaneous Approach (ICD-10-PCS; 2018-11-09)
DX: N13.1 Hydronephrosis with ureteral stricture, not elsewhere classified (principal)
CPT/HCPCS: 50693; 76000-TC-FY; 76775-TC; C1769; C1887

== ENCOUNTER 2018-12-19 11:58 | Inpatient (IN) | payer OTHER ==
[2018-12-19 12:52] VITALS: BMI 31.8
[2018-12-19 13:04] LABS: BASO % 0.8 % (0-2.0); EOS % 0.4 % (0-4.5); HEMATOCRIT 34.4 % (32.4-45.2); HEMOGLOBIN 10.4 GM/dL (10.7-15.3); LYMPH % 17.2 % (8-40); MCH 22.1 pg (25.7-33.7); MCHC 30.3 g/dl (32.0-36.0); MEAN CELL VOLUME 72.8 fl (80-96); MEAN PLT VOLUME 9.9 fl (7.5-11.1); MONO % 15.6 % (3.8-10.2); PLATELET COUNT 152 K/MM3 (134-434); RBC 4.72 M/mm3 (3.60-5.2); RDW 18.7 % (11.6-15.6); WHITE BLOOD COUNT 4.4 K/mm3 (4.0-10.0)
[2018-12-19 13:13] LABS: URINE APPEARANCE TURBID; URINE BILIRUBIN NEGATIVE (<2.0 mg/dL); URINE GLUCOSE (UA) NEGATIVE (NEGATIVE); URINE KETONE NEGATIVE (NEGATIVE); URINE LEUK ESTERASE 3+ (NEGATIVE); URINE NITRITE POSITIVE (NEGATIVE); URINE PROTEIN 2+ (NEGATIVE)
[2018-12-19 13:17] LABS: INR 1.35 (0.83-1.09)
[2018-12-19 13:18] LABS: URINE COLOR DK YELLOW
[2018-12-19 13:23] LABS: EPI CELLS RARE /HPF (FEW); URINE MUCUS RARE
[2018-12-19 13:35] LABS: ALBUMIN 3.3 g/dl (3.4-5.0); ALK PHOS 80 U/L (45-117); ANION GAP 7 MMOL/L (8-16); BILIRUBIN,TOTAL 0.8 mg/dL (0.2-1); BLOOD UREA NITROGEN 16 mg/dL (7-18); CALCIUM 9.5 mg/dL (8.5-10.1); CHLORIDE 100 mmol/L (98-107); CO2 35 mmol/L (21-32); CREATININE 0.9 mg/dL (0.55-1.3); GLUCOSE,RANDOM 168 mg/dL (74-106); MAGNESIUM 2.1 mg/dL (1.8-2.4); N-TERMINAL BNP 7847.4 pg/ml (5-450); POTASSIUM 3.1 mmol/L (3.5-5.1); SGOT/AST 16 U/L (15-37); SGPT/ALT 16 U/L (13-61); SODIUM 142 mmol/L (136-145); TOT PROT 7.2 g/dl (6.4-8.2)
--- NOTE | 2018-12-19 13:39 | PDOC ---
History of Present Illness - General Chief Complaint: Shortness of Breath Stated Complaint: Shortness of Breath Time Seen by Provider: 12/19/18 12:17 History Source: Patient Exam Limitations: No Limitations - History of Present Illness Initial Comments: 12/19/18 13:38 Pt is an 88yo F with PMH of A fib (not on AC, taken off due to hematuria), CHF, CAD, HTN, COPD (on 2L O2), ureteral stent placement BIBA from [facility] for SOB and chest heaviness. Pt states that she has been feeling SOB for the past 8 months but has been getting worse also endorsing chest heaviness that started today which is located in the middle of her chest and bilateral leg swelling. She is denying fevers, chills, cough, congestion, palpitations, abdominal pain, n/v/d, urinary symptoms, hematuria. She had nephrostomy tubes but had a stent placed 4-6 weeks ago. PMD: Barrera? PMH: see hpi PSH: see hpi Meds: see med rec Allergies: Levaquin Past History - Past Medical History Allergies/Adverse Reactions: Allergies Allergy/AdvReac Type Severity Reaction Status Date / Time levofloxacin [From Levaquin] Allergy Intermediate Itching Verified 11/09/18 13: 49 Home Medications: Ambulatory Orders Atorvastatin Ca [Lipitor] 20 mg PO HS 04/16/18 Albuterol Sulfate [Proventil HFA Inhaler -] 1 inh PO Q4H PRN 06/20/18 Budesonide/Formeterol Fumarate [SYMBICORT 160/4.5mcg -] 2 inh PO BID 06/20/18 Spironolactone [Aldactone] 25 mg PO DAILY #2 tablet 09/11/18 predniSONE [Deltasone -] 5 mg PO DAILY #7 tablet 09/11/18 Escitalopram Oxalate [Lexapro -] 10 mg PO DAILY 10/06/18 Atenolol [Tenormin] 50 mg PO DAILY 11/09/18 Furosemide [Lasix -] 40 mg PO DAILY 12/20/18 Ramipril [Altace] 2.5 mg PO DAILY 12/20/18 Anemia: Yes (PERNICIOUS) Asthma: (HX RESPIRATORY FAILURE) Cancer: No Cardiac Disorders: Yes (AF) CVA: No COPD: Yes (PT HAS COPD O2 NC 3L) CHF: Yes Dementia: No Diabetes: No GI Disorders: Yes (GASTRITIS) Disorders: Yes (HX KIDNEY FAILURE,UTI) HTN: Yes Hypercholesterolemia: Yes Liver Disease: No Psychiatric Problems: Yes (ANXIETY.) Seizures: No Thyroid Disease: No - Surgical History Abdominal Surgery: Yes (abdominal) Appendectomy: No Cardiac Surgery: No Cholecystectomy: Yes Lung Surgery: No (PT DENIES) Neurologic Surgery: No Orthopedic Surgery: Yes (cervical spine/hardware) - Immunization History Immunization Up to Date: No - Suicide/Smoking/Psychosocial Hx Smoking Status: No Smoking History: Never smoked Years of Tobacco Use: 0 Have you smoked in the past 12 months: No Number of Cigarettes Smoked Daily: 0 Information on smoking cessation initiated: No Hx Alcohol Use: No Drug/Substance Use Hx: No Substance Use Type: None Hx Substance Use Treatment: No *Physical Exam - Vital Signs Last Vital Signs Temp Pulse Resp BP Pulse Ox 98.7 F 95 H 16 123/91 100 12/19/18 12:00 12/19/18 12:00 12/19/18 12:00 12/19/18 12:00 12/19/18 12:34 Moderate Sedation - Procedure Monitoring Vital Signs: Procedure Monitoring Vital Signs Temperature 98.7 F 12/19/18 12:00 Pulse Rate 95 H 12/19/18 12:00 Respiratory Rate 16 12/19/18 12:00 Blood Pressure 123/91 12/19/18 12:00 O2 Sat by Pulse Oximetry (%) 100 12/19/18 12:34 ED Treatment Course - LABORATORY CBC & Chemistry Diagram: 12/20/18 06:00 12/20/18 06:00 - ADDITIONAL ORDERS Additional order review: Laboratory Results 12/19/18 12/19/18 12/19/18 12:45 12:45 12:45 PT with INR 16.00 H INR 1.35 H Sodium 142 Potassium 3.1 L Chloride 100 Carbon Dioxide 35 H Anion Gap 7 L BUN 16 Creatinine 0.9 Creat Clearance w eGFR 58.95 Random Glucose 168 H Calcium 9.5 Magnesium 2.1 Total Bilirubin 0.8 AST 16 ALT 16 Alkaline Phosphatase 80 Troponin I 0.06 H B-Natriuretic Peptide 7847.4 H Total Protein 7.2 Albumin 3.3 L Urine Color Dk yellow Urine Appearance Turbid Urine pH 7.0 Ur Specific [place] 1.013 Urine Protein 2+ H Urine Glucose (UA) Negative Urine Ketones Negative Urine Blood 3+ H Urine Nitrite Positive Urine Bilirubin Negative Urine Urobilinogen 2.0 H Ur Leukocyte Esterase 3+ H Urine WBC (Auto) 513 Urine RBC (Auto) 117 Ur Epithelial Cells Rare Urine Mucus Rare 12/19/18 12:45 RBC 4.72 MCV 72.8 L MCHC 30.3 L RDW 18.7 H MPV 9.9 D Neutrophils % 66.0 Lymphocytes % 17.2 D Monocytes % 15.6 H D Eosinophils % 0.4 D Basophils % 0.8 - RADIOLOGY Radiology Studies Ordered: Category Date Time Status CHEST X-RAY PORTABLE* [RAD] Stat Radiology 12/19/18 12:45 Ordered Medical Decision Making - Medical Decision Making 12/20/18 22:00 Pt is an 88yo F with PMH of A fib (not on AC, taken off due to hematuria), CHF, CAD, HTN, COPD (on 2L O2), ureteral stent placement BIBA from [facility] for SOB and chest heaviness. Pt states that she has been feeling SOB for the past 8 months but has been getting worse also endorsing chest heaviness that started today which is located in the middle of her chest and bilateral leg swelling. She is denying fevers, chills, cough, congestion, palpitations, abdominal pain, n/v/d, urinary symptoms, hematuria. She had nephrostomy tubes but had a stent placed 4-6 weeks ago. Vitals: wnl PE: diffuse wheezing bilaterally, bilateral pitting edema up to thigh. ddx includes but not limited to chf exacerbation, acs, pe, pna, copd lower suspicion for pe, chf more likely -cbc, cmp, bmp, trop, mg, ua, ucx -cxr, ekg Labs significant for bmp 7800. trop 0.06, could be demand ischemia, electrolytes wnl. kidney function normal cxr shows congestive changes ekg: afib, no missy or depressions -IV lasix. Will admit 12/20/18 22:00 *DC/Admit/Observation/Transfer Diagnosis at time of Disposition: CHF (congestive heart failure) Qualifiers: Heart failure type: unspecified Heart failure chronicity: acute on chronic Qualified Code(s): I50.9 - Heart failure, unspecified - Discharge Dispostion Condition at time of disposition: Good Decision to Admit order: Yes - Referrals - Patient Instructions - Post Discharge Activity
--- NOTE | 2018-12-19 13:55 | PDOC ---
Attending Attestation - HPI HPI: 12/19/18 14:21 The patient is a 88 year old female with a significant PMH of COPD,anemia, asthma, chronic respiratory failure, afib, CHF, CAD, hypertension, sarcoidosis, and hemorrhagic cystitis who presents to the emergency department with shortness of breath for 8 months. The patient reports that her shortness of breath has been worsening. She reports some associated chest heaviness today as well as some worsened lower extremity edema. She denies any fever, chills, nausea, vomiting, diarrhea, constipation, or urinary symptoms. She denies any headache or dizziness. The patient denies any other complaints. PCP: Dr. Ocampo - Physicial Exam PE: 12/19/18 14:21 Vitals: Triage vital signs reviewed General Appearance: No acute distress, well nourished, well developed Head: Atraumatic Chest Wall: Nontender Cardiac: Regular rate and rhythm, no murmurs, no rubs, no gallops Lungs: (+)crackles at base, mild expiratory wheezing. Abdomen: Soft, nondistended, normal bowel sounds, nontender to palpation Extremities: (+)3+ pitting edema past knees bilaterally. Full range of motion to all extremities, no cyanosis, clubbing, or edema Skin: Warm and dry, no rashes or lesions, no rash, no petechiae Neuro: AOX3; Cranial Nerves 2-12 grossly intact, Strength intact to all extremities, Sensation intact to all extremities, gait normal Psych: Normal mood, normal affect - Medical Decision Making 12/19/18 14:21 The patient is a 88 year old female with a significant PMH of COPD,anemia, asthma, chronic respiratory failure, afib, CHF, CAD, hypertension, sarcoidosis, and hemorrhagic cystitis who presents to the emergency department with shortness of breath for 8 months. The patient will get labs drawn, EKG, chest x- ray and antibiotics <Albert Chaparro - Last Filed: 12/19/18 14:21> - Resident Resident Name: Frances Wasserman - ED Attending Attestation I have performed the following: I have examined & evaluated the patient, The case was reviewed & discussed with the resident, I agree w/resident's findings & plan, Exceptions are as noted - Medical Decision Making 88 years old with shortness of breath mild CHF exacerbation troponin of indeterminant value likely secondary to heart strain Also with concomitant UTI We'll treat UTI admit for diuresis and trending of troponins <Antonio Rice - Last Filed: 12/19/18 18:22> Heart Score/ECG Review - History History: Slightly suspicious - Electrocardiogram EKG: Non specific repolarization disturbance - Age Age: >/= 65 - Risk Factors Risk Factors Heart Score: Yes Hx Hypercholesterolemia, Yes Hx Hypertension, Yes Positive family hx of cardiac disease Based on the list above the patient has:: >/=3 risk factors or Hx atherosclerotic disease - Troponin Troponin: 1-3x normal limit - Score Heart Score - Total: 6 - ECG Impressions Comment:: 12/19/18 18:22 EKG performed at 1243 demonstrates A. fib occasional PVCs no ST elevations or T- wave inversions. Interpreted by me. <Antonio Rice - Last Filed: 12/19/18 18:22> Attestations - Attestations 12/19/18 14:22 Documentation prepared by Albert Chaparro, acting as medical delivery technician for Antonio Rice MD. <Albert Chaparro - Last Filed: 12/19/18 14:21>
[2018-12-19] MEDS ORDERED: FUROSEMIDE 40 MG/4 ML INJECTABLE VIAL IVPUSH ONE (14:10)
[2018-12-19] MEDS ORDERED: ASPIRIN 81 MG CHEWABLE TABLETS PO ONE (14:11)
[2018-12-19] MEDS ORDERED: CEFTRIAXONE 1 GM in DEXTROSE 5%-WATER - 100 ML IVPB ONE (14:12)
[2018-12-19] MEDS ORDERED: ASPIRIN 81 MG CHEWABLE TABLETS ONE (14:19)
[2018-12-19] MEDS ORDERED: CEFTRIAXONE 1 GM/50 ML BAG ONE (14:19)
[2018-12-19] MEDS ORDERED: FUROSEMIDE 40 MG/4 ML INJECTABLE VIAL ONE (14:21)
--- NOTE | 2018-12-19 15:32 | PN ---
Teaching Attending Note Name of Resident: Micheal Hairston ATTENDING PHYSICIAN STATEMENT I saw and evaluated the patient. I reviewed the resident's note and discussed the case with the resident. I agree with the resident's findings and plan as documented. SUBJECTIVE: Patient is a 88 y/o F from [facility] w/PMH of Afib (not on AC due to hematuria), CHF, CAD, HTN, COPD (on 2L O2 at home), ureteral stent placement, nephrostomy placement (removal 2 weeks ago) presents with chest tightness and SOB. OBJECTIVE: Vital Signs Temperature 98.7 F 12/19/18 12:00 Pulse Rate 95 H 12/19/18 12:00 Respiratory Rate 16 12/19/18 12:00 Blood Pressure 123/91 12/19/18 12:00 O2 Sat by Pulse Oximetry (%) 100 12/19/18 12:34 Initial Vital Signs Temp Pulse Resp BP Pulse Ox 98.7 F 95 H 16 123/91 95 12/19/18 12:00 12/19/18 12:00 12/19/18 12:00 12/19/18 12:00 12/19/18 12:00 General Appearance: No acute distress, well nourished, well developed Head: Atraumatic Chest Wall: Nontender Cardiac: Regular rate and rhythm, no murmurs, no rubs, no gallops Lungs: (+)crackles at base, mild expiratory wheezing. Abdomen: Soft, nondistended, normal bowel sounds, nontender to palpation Extremities: (+)3+ pitting edema past knees bilaterally. Full range of motion to all extremities, no cyanosis, clubbing, or edema Skin: Warm and dry, no rashes or lesions, no rash, no petechiae Neuro: AOX3; Cranial Nerves 2-12 grossly intact, Strength intact to all extremities, Sensation intact to all extremities, gait normal Psych: Normal mood, normal affect CBCD WBC 4.4 K/mm3 (4.0-10.0) 12/19/18 12:45 RBC 4.72 M/mm3 (3.60-5.2) 12/19/18 12:45 Hgb 10.4 GM/dL (10.7-15.3) L 12/19/18 12:45 Hct 34.4 % (32.4-45.2) D 12/19/18 12:45 MCV 72.8 fl (80-96) L 12/19/18 12:45 MCHC 30.3 g/dl (32.0-36.0) L 12/19/18 12:45 RDW 18.7 % (11.6-15.6) H 12/19/18 12:45 Plt Count 152 K/MM3 (134-434) D 12/19/18 12:45 MPV 9.9 fl (7.5-11.1) D 12/19/18 12:45 CMP Sodium 142 mmol/L (136-145) 12/19/18 12:45 Potassium 3.1 mmol/L (3.5-5.1) L 12/19/18 12:45 Chloride 100 mmol/L (98-107) 12/19/18 12:45 Carbon Dioxide 35 mmol/L (21-32) H 12/19/18 12:45 Anion Gap 7 MMOL/L (8-16) L 12/19/18 12:45 BUN 16 mg/dL (7-18) 12/19/18 12:45 Creatinine 0.9 mg/dL (0.55-1.3) 12/19/18 12:45 Creat Clearance w eGFR 58.95 (>60) 12/19/18 12:45 Random Glucose 168 mg/dL (74-106) H 12/19/18 12:45 Calcium 9.5 mg/dL (8.5-10.1) 12/19/18 12:45 Total Bilirubin 0.8 mg/dL (0.2-1) 12/19/18 12:45 AST 16 U/L (15-37) 12/19/18 12:45 ALT 16 U/L (13-61) 12/19/18 12:45 Alkaline Phosphatase 80 U/L (45-117) 12/19/18 12:45 Total Protein 7.2 g/dl (6.4-8.2) 12/19/18 12:45 Albumin 3.3 g/dl (3.4-5.0) L 12/19/18 12:45 CARDIAC ENZYMES Troponin I 0.06 ng/ml (0.00-0.05) H 12/19/18 12:45 Laboratory Tests 12/19/18 12/19/18 12:45 17:37 Potassium 3.1 L Random Glucose 168 H Troponin I 0.06 H 0.09 H B-Natriuretic Peptide 7847.4 H Albumin 3.3 L ASSESSMENT AND PLAN: Patient is a 88yo female from [facility] ,with PMHx of Afib (not on AC due to hematuria), CHF, CAD, HTN, COPD (on 2L O2 at home) admitted for SOB for having diastolic CHF exacerbation and was found to have have UTI. # Acute chest tightness r/o ACS, trend trops, 1st trop is 0.06--> repeat 0.09 , trending up, given Given 162 mg ASA in ER, cardio consult dr. Campos # Acute SOB due to having diastoolic CHF exacerbation:with elevated BNP Echo on 07/2018 - EF 60-65%, LA mod/severely dilated. RA mod dilated. Mod MR. Mod TR. RVSP elevated at 74 mmHG.will start IV lasix 20mg BId , atenolol, spironolactone, strict I/Os, daily weights # Elevated troponins due to demand Ischemia, had mild elevation in the past of 0.6 #Acute hypokalemia; replete with kdur 40 bid x 2 days. #UTI will start with ceftriaxone , ua urine c/s, blood c/s,cxr ordered #hx of COPD: stable, c/w symbicort, duonebs PRN #HLD continue lipitor 20 mg qd -DVT ppx: SCDs, lovenox 30mg sq
--- NOTE | 2018-12-19 15:41 | HP ---
CHIEF COMPLAINT: SOB, chest tightness PCP: [facility] [place] HISTORY OF PRESENT ILLNESS: 88 y/o F from [facility] w/PMH of Afib (not on AC due to hematuria), CHF, CAD, HTN, COPD (on 2L O2 at home), ureteral stent placement, nephrostomy placement (removal 2 weeks ago) presents with chest tightness and SOB. She has had SOB for approx 2-3 months but was suddenly worsened yesterday. She has also had LE edema that has been worse over the last 2-3 days. She denies cough, chest congestion, phlegm, sick contacts. She also reports chest tightness since yesterday. The tightness is located in the center of her chest, non-radiating, not reproducible, not associated with nausea, vomiting, diaphoresis. Chest tightness is dull and constant since yesterday, improved with laying down and with deep inspiration. Ambulates with a walker at [place]. ER course was notable for: (1) ASA 162 mg, ceftriaxone 1g, lasix 40mg iv (2) (3) PAST MEDICAL HISTORY: Afib (not on AC due to hematuria), CHF, CAD, HTN, COPD ( on 2L O2 at home) PAST SURGICAL HISTORY: spinal surgery, hysterectomy 30 years ago, nephrostomy ( removed 2 weeks ago) Social History: Smoking: denies Alcohol: denies Drugs: denies Family History: n-c Allergies levofloxacin [From Levaquin] Allergy (Intermediate, Verified 11/09/18 13:49) Itching HOME MEDICATIONS: Home Medications Medication Instructions Recorded Atorvastatin Ca [Lipitor] 20 mg PO HS 04/16/18 Albuterol Sulfate [Proventil HFA 1 - 2 inh PO Q4H PRN 06/20/18 Inhaler -] Budesonide/Formeterol Fumarate 1 inh PO BID 06/20/18 [SYMBICORT 160/4.5mcg -] Spironolactone [Aldactone] 25 mg PO DAILY #2 tablet 09/11/18 predniSONE [Deltasone -] 5 mg PO DAILY #7 tablet 09/11/18 Escitalopram Oxalate [Lexapro -] 10 mg PO DAILY 10/06/18 Atenolol [Tenormin] 50 mg PO DAILY 11/09/18 REVIEW OF SYSTEMS CONSTITUTIONAL: Absent: fever, chills, diaphoresis CARDIOVASCULAR: +chest tightness, peripheral edema Absent: syncope, palpitations RESPIRATORY: +SOB Absent: cough GASTROINTESTINAL: Absent: abdominal pain, nausea, vomiting GENITOURINARY: +dysuria, frequency, hematuria NEUROLOGIC: Absent: mental status changes PHYSICAL EXAMINATION Vital Signs - 24 hr 12/19/18 12/19/18 12:00 12:34 Temperature 98.7 F Pulse Rate 95 H Respiratory 16 Rate Blood Pressure 123/91 O2 Sat by Pulse 95 100 Oximetry (%) GENERAL: Awake, alert, and fully oriented, in no acute distress. HEAD: Normal with no signs of trauma. EYES: extraocular movements intact, sclera anicteric, conjunctiva clear. EARS, NOSE, THROAT: Ears normal, nares patent NECK: Normal range of motion, supple LUNGS: B/L Crackles HEART: Irregularly irregular, normal S1 and S2. ABDOMEN: Soft, nontender, normoactive bowel sounds MUSCULOSKELETAL: +CVA tenderness LOWER EXTREMITIES: warm, well-perfused. 2+ b/l LE pitting edema NEUROLOGICAL: Cranial nerves II-XII grossly intact. Normal speech. Gait not observed. PSYCHIATRIC: Cooperative. Good eye contact. Appropriate mood and affect. SKIN: Warm, dry Laboratory Results - last 24 hr 12/19/18 12/19/18 12/19/18 12:45 12:45 12:45 WBC 4.4 RBC 4.72 Hgb 10.4 L Hct 34.4 D MCV 72.8 L MCH 22.1 L MCHC 30.3 L RDW 18.7 H Plt Count 152 D MPV 9.9 D Absolute Neuts (auto) 2.9 Neutrophils % 66.0 Lymphocytes % 17.2 D Monocytes % 15.6 H D Eosinophils % 0.4 D Basophils % 0.8 Nucleated RBC % 0 PT with INR 16.00 H INR 1.35 H Sodium 142 Potassium 3.1 L Chloride 100 Carbon Dioxide 35 H Anion Gap 7 L BUN 16 Creatinine 0.9 Creat Clearance w eGFR 58.95 Random Glucose 168 H Calcium 9.5 Magnesium 2.1 Total Bilirubin 0.8 AST 16 ALT 16 Alkaline Phosphatase 80 Troponin I 0.06 H B-Natriuretic Peptide 7847.4 H Total Protein 7.2 Albumin 3.3 L Urine Color Urine Appearance Urine pH Ur Specific [place] Urine Protein Urine Glucose (UA) Urine Ketones Urine Blood Urine Nitrite Urine Bilirubin Urine Urobilinogen Ur Leukocyte Esterase Urine WBC (Auto) Urine RBC (Auto) Ur Epithelial Cells Urine Mucus 12/19/18 12:45 WBC RBC Hgb Hct MCV MCH MCHC RDW Plt Count MPV Absolute Neuts (auto) Neutrophils % Lymphocytes % Monocytes % Eosinophils % Basophils % Nucleated RBC % PT with INR INR Sodium Potassium Chloride Carbon Dioxide Anion Gap BUN Creatinine Creat Clearance w eGFR Random Glucose Calcium Magnesium Total Bilirubin AST ALT Alkaline Phosphatase Troponin I B-Natriuretic Peptide Total Protein Albumin Urine Color Dk yellow Urine Appearance Turbid Urine pH 7.0 Ur Specific [place] 1.013 Urine Protein 2+ H Urine Glucose (UA) Negative Urine Ketones Negative Urine Blood 3+ H Urine Nitrite Positive Urine Bilirubin Negative Urine Urobilinogen 2.0 H Ur Leukocyte Esterase 3+ H Urine WBC (Auto) 513 Urine RBC (Auto) 117 Ur Epithelial Cells Rare Urine Mucus Rare CXR: Pending official read. L lung difficult to assess due to heart blocking view. EKG: Afib @ [address] segment elevations or depressions noted. Active Medications Acetaminophen (Tylenol -) 650 mg PO Q6H PRN PRN Reason: FEVER Albuterol/Ipratropium (Duoneb -) 1 amp NEB Q6H PRN PRN Reason: SHORTNESS OF BREATH Atenolol (Tenormin -) 50 mg PO DAILY LISA Atorvastatin Calcium (Lipitor -) 20 mg PO HS LISA Budesonide/Formoterol Fumarate (Symbicort 160/4.5mcg -) 1 puff IH BID LISA Escitalopram Oxalate (Lexapro -) 10 mg PO DAILY LISA Furosemide (Lasix Injection -) 40 mg IVPUSH DAILY [facility] Ceftriaxone Sodium 1 gm/ (Dextrose) 50 mls @ 100 mls/hr IVPB DAILY LISA Spironolactone (Aldactone -) 25 mg PO DAILY [facility] ASSESSMENT/PLAN: 88 y/o F from [facility] w/PMH of Afib (not on AC due to hematuria), CHF, CAD, HTN, COPD (on 2L O2 at home) admitted for SOB secondary to CHF exacerbation , r/o acs, and found to have UTI. -Chest tightness -r/o ACS, trend trops, 0.06 initial trop, has had low level trops in the past -Given 162 mg ASA in ER -Cardiology consult -SOB secondary to acute on chronic CHF exacerbation -Echo on 07/2018 - EF 60-65%. LA mod/severely dilated. RA mod dilated. Mod MR. Mod TR. RVSP elevated at 74 mmHG. -Lasix 40mg IV qd -c/w atenolol, spironolactone -strict I/Os, daily weights -UTI -Given ceftriaxone in ER. -c/w Ceftriaxone 1g IV qd. -Has a hx of ESBL UTI - but last UCx did not show ESBL organism -f/u UCx -tylenol for fevers -COPD -not in acute exacerbation -c/w symbicort -duonebs PRN -HLD -c/w lipitor 20 mg qd -DVT ppx -SCDs -FEN -no fluids -Hypokalemia - will replete with 40mg PO Kdur. Monitor electrolytes -Low salt, cardiac diet -Dispo: Admit to tele Visit type - Emergency Visit Emergency Visit: Yes ED Registration Date: 12/19/18 Care time: The patient presented to the Emergency Department on the above date and was hospitalized for further evaluation of their emergent condition. - New Patient This patient is new to me today: Yes Date on this admission: 12/20/18 - Critical Care Critical Care patient: No
[2018-12-19] MEDS ORDERED: ACETAMINOPHEN 325 MG TABLET (FP) PO PRN (15:58)
[2018-12-19] MEDS ORDERED: POTASSIUM CHLORIDE TABS 20 MEQ TABLET.ER (FP) PO ONE ×2 (15:58→16:38)
[2018-12-19] MEDS: ATORVASTATIN CA 20 MG TABLET (FP) PO SCH (22:21)
[2018-12-19] MEDS: BUDESONIDE/FORMETEROL FUMARATE 160/4.5 mcg INHALER IH SCH (22:21)
[2018-12-20] MEDS: ACETAMINOPHEN 325 MG TABLET (FP) PO PRN (01:15)
[2018-12-20 06:32] LABS: HEMATOCRIT 30.2 % (32.4-45.2); HEMOGLOBIN 9.1 GM/dL (10.7-15.3); MCH 21.5 pg (25.7-33.7); MCHC 30.2 g/dl (32.0-36.0); MEAN CELL VOLUME 71.3 fl (80-96); MEAN PLT VOLUME 9.4 fl (7.5-11.1); PLATELET COUNT 129 K/MM3 (134-434); RBC 4.24 M/mm3 (3.60-5.2)
[2018-12-20 06:35] LABS: ADD RBC MORPHOLOGY YES
[2018-12-20 06:49] LABS: ALBUMIN 2.7 g/dl (3.4-5.0); ALK PHOS 70 U/L (45-117); ANION GAP 4 MMOL/L (8-16); BILIRUBIN,TOTAL 0.4 mg/dL (0.2-1); BLOOD UREA NITROGEN 16 mg/dL (7-18); CALCIUM 8.7 mg/dL (8.5-10.1); CHLORIDE 101 mmol/L (98-107); CO2 38 mmol/L (21-32); CREATININE 0.9 mg/dL (0.55-1.3); GLUCOSE,RANDOM 114 mg/dL (74-106); MAGNESIUM 1.8 mg/dL (1.8-2.4); PHOSPHOROUS 3.7 mg/dL (2.5-4.9); POTASSIUM 3.2 mmol/L (3.5-5.1); SGOT/AST 11 U/L (15-37); SGPT/ALT 20 U/L (13-61); SODIUM 142 mmol/L (136-145); TOT PROT 6.7 g/dl (6.4-8.2)
[2018-12-20] MEDS ORDERED: POTASSIUM CHLORIDE TABS 20 MEQ TABLET.ER (FP) PO ONE (07:33)
[2018-12-20] MEDS ORDERED: cefTRIAXone SODIUM 1 GM VIAL ONE (09:12)
[2018-12-20] MEDS ORDERED: DEXTROSE 5%-WATER - 50 ML IVPB ONE (09:12)
[2018-12-20] MEDS: ESCITALOPRAM OXALATE 10 MG TABLET (FP) PO SCH (09:24)
[2018-12-20] MEDS: ATENOLOL 50 MG TABLET (FP) PO SCH (09:24)
[2018-12-20] MEDS: SPIRONOLACTONE 25 MG TABLET (FP) PO SCH (09:24)
[2018-12-20] MEDS: BUDESONIDE/FORMETEROL FUMARATE 160/4.5 mcg INHALER IH SCH ×2 (09:25→22:25)
[2018-12-20] MEDS: FUROSEMIDE 40 MG/4 ML INJECTABLE VIAL IVPUSH SCH (09:25)
[2018-12-20] MEDS ORDERED: CEFTRIAXONE 1 GM in DEXTROSE 5%-WATER - 50 ML IVPB SCH (10:00)
--- NOTE | 2018-12-20 10:03 | CON.CARD ---
Cardiology Consult (text) - Consultation Consultation Note: - Consultation Consultation Note: Chief Complaint: chest tightness, dyspnea History of Present Illness: 81F h/o afib, CHF, COPD (on home O2 2L), HTN, pulm HTN, hematuria s/p b/l perc nephrostomy sent from [place] for chest tightness, sob. Complained of dyspnea for 2- 3 months, worse day prior to admission, also increasing lower ext edema and chest tightness starting day prior to admission, has been constant and dull and improves with lying down and deep breaths. UA+ for UTI, started on abx. Also started on lasix for concern for CHF exac. Feels better today, edema improving with IV lasix. - Past Medical History [employer]: Yes: Vertigo (intermittent) Cardio/Vascular: Yes: AFIB, CHF, HTN, Hyperlipdemia, Pulmonary Hypertension, Other (Sarcoidosis) Pulmonary: Yes: Asthma, COPD Renal/: Yes: Hematuria. No: Renal Calculi Psych: Yes: Depression - Past Surgical History Past Surgical History: Yes: Cholecystectomy, Hysterectomy - Alcohol/Substance Use Hx Alcohol Use: No History of Substance Use: reports: None - Smoking History Smoking history: Never smoked Have you smoked in the past 12 months: No Aproximately how many cigarettes per day: 0 - Social History Usual Living Arrangement: Other (most recently has been at [place]/ [facility], and since developing pain has been ambulating with ) History of Recent Travel: No Home Medications Allergies Allergy/AdvReac Type Severity Reaction Status Date / Time levofloxacin [From Levaquin] Allergy Intermediate Itching Verified 11/09/18 13: 49 Home Medications Medication Instructions Recorded Atorvastatin Ca [Lipitor] 20 mg PO HS 04/16/18 Albuterol Sulfate [Proventil HFA 1 inh PO Q4H PRN 06/20/18 Inhaler -] Budesonide/Formeterol Fumarate 2 inh PO BID 06/20/18 [SYMBICORT 160/4.5mcg -] Spironolactone [Aldactone] 25 mg PO DAILY #2 tablet 09/11/18 predniSONE [Deltasone -] 5 mg PO DAILY #7 tablet 09/11/18 Escitalopram Oxalate [Lexapro -] 10 mg PO DAILY 10/06/18 Atenolol [Tenormin] 50 mg PO DAILY 11/09/18 Furosemide [Lasix -] 40 mg PO DAILY 12/20/18 Ramipril [Altace] 2.5 mg PO DAILY 12/20/18 Family Disease History - Family Disease History Family Disease History: Heart Disease: Father, Mother, Other: Sister (Colon cancer) Review of Systems - Review of Systems per hpi, no nvd +fever no gib dysuria dash vision changes muscle pain Vital Signs: Vital Signs Period Temp Pulse Resp BP Sys/Garza Pulse Ox Last 24 Hr 97.6 F-98.7 F 80-101 16-18 95-123/44-91 95-100 Constitutional: Yes: Well Nourished, No Distress Eyes: Yes: Conjunctiva Clear HENT: Yes: Atraumatic, Normocephalic Neck: Yes: Supple, Trachea Midline, + JVD Respiratory: rales at bases raad Gastrointestinal: Yes: Normal Bowel Sounds, Soft Cardiovascular: Yes: Pulse Irregular JVD: no Heart Sounds: Yes: S1, S2 Edema: 1+ raad lower ext Peripheral Pulses WNL: Yes Peripheral Pulses: 2+ Left Doralis Pedis, 2+ Right Dorsalis Pedis Integumentary: No: Jaundice diaphoresis Neurological: Yes: Alert, Oriented Psychiatric: Yes: Alert, Oriented Echo 05/03: nl LVEF. mild RVE, mild-mod RV hypo. L/NEENA. mod MR/TR. RVSP at least 88 mmHg Echo 03/2017: Mild conc lvh. nl lv/rv size/fn, mod ronnie, mod mr, mod tr, rvsp 40- 50 EKG: afib rate okay, PVC, no ischemic changes CXR mild congestive changes Echo 07/2018 nl LV function, LA mod/severely dilated. RA mod dilated. Mod MR. Mod TR. RVSP elevated at 74 mmHG. tele: afib, PVCs, rate ok Assessment/Plan 81F h/o afib, CHF, COPD (on home O2 2L), HTN, pulm HTN, hematuria s/p b/l perc nephrostomy sent from [place] for chest tightness, shortness of breath, UTI acute on chronic diastolic HF exacerbation, cor pulmonale with RV failure - on lasix 40 mg daily as outpatient - BNP >7800, c/w prior values - received lasix 40 mg IV x 2 doses - continue lasix 40 mg IV daily, monitor daily standing weights, Cr, lytes - continue atenolol, spironolactone chest tightness - trop indeterminate range, stable compared to prior values - EKG unchanged, less likely ACS UTI - on IV abx, manage per primary afib: - HR control overall acceptable at present, cont bb - holding eliquis for hx of severe hematuria, anemia. COPD - stable, manage per primary HLD - continue statin cad, NSTEMI, staph bacteremia 07/2018: -periop hypotension 08/11 during cysto, briefly on pressors. 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 ECG 08/[address] depressions inferior leads, improved on 08/12 tracing--cannot exclude Type I ME at time of events. -AC initially held for gross hematuria with large clots/hydronephrosis, was back on eliquis and now stopped again due to hematuria. defer aspirin -BB and afib HR control as doing -defer invasive CAD mgmt approach given poor functional status with competing mortality limitations from severe lung dz, low likelihood to improve prognosis, and risks > benefits (including bleeding, AIN)
[2018-12-20 12:00] LABS: ANISOCYTOSIS 1+; OVALOCYTE 1+; TARGET CELLS 1+
--- NOTE | 2018-12-20 12:43 | EKG ---
Test Reason : Blood Pressure : / mmHG Vent. Rate : 086 BPM Atrial Rate : 241 BPM P-R Int : 000 ms QRS Dur : 084 ms QT Int : 378 ms P-R-T Axes : 000 -06 -08 degrees QTc Int : 452 ms ATRIAL FIBRILLATION WITH PREMATURE VENTRICULAR OR ABERRANTLY CONDUCTED COMPLEXES CANNOT RULE OUT ANTERIOR INFARCT , AGE UNDETERMINED ABNORMAL ECG WHEN COMPARED WITH ECG OF 13-OCT-2018 02:26, NO SIGNIFICANT CHANGE WAS FOUND Confirmed by CLAIRE SALMERON MD ([id number]) on 12/20/2018 12:42:52 PM Referred By: Confirmed By:CLAIRE SALMERON MD
[2018-12-20] MEDS ORDERED: PT OWN MED DRAWER 7, Y5N ONE ×2 (14:51→21:19)
[2018-12-20] MEDS: ERTAPENEM SODIUM 1 GM in SODIUM CHLORIDE 50 ML IVPB SCH (16:45)
--- NOTE | 2018-12-20 17:27 | PN ---
Teaching Attending Note Name of Resident: Cholo García ATTENDING PHYSICIAN STATEMENT I saw and evaluated the patient. I reviewed the resident's note and discussed the case with the resident. I agree with the resident's findings and plan as documented. SUBJECTIVE: Limited history, No fever or chills. no abd pain. reports dysuria . she still has chest tightness OBJECTIVE: NAD , awake, alert , cooperative. knows age, location and her address CV: RRR Lungs: CTAB Ext : 2+ edema , No erythema Abd: soft, ND, NL BS , TTP in suprapubic area ASSESSMENT AND PLAN: 88 y/o lady with h/o Afib (not on AC due to hematuria), CHF,severe pulmonary hypertension, CAD, HTN, COPD on 2 L of home O2 , she resented with SOb and chest tightness. She was found to have acute CHF exacerbation 1- Acute on chronic diastolic heart failure: echo from 08/03 reviewed. - cont IV lasix - weight and strict I&Os. - appreciate Card input - cont atenolol 2- Chest pain, EKG with no change. slight increase in trop . probably demand - cont atenolol 3- h/o HTN: resume ramipril cont atenolol 4- UTI: h/o ESBL producing organisms - dc ceftriaxone and start ertapenem pending ID and sensitivity of U cx ( 2 organisms so far ) 5- Dispo HLOC
--- NOTE | 2018-12-20 18:24 | PN ---
Physical Exam: SUBJECTIVE: Patient seen and examined at bedside. No acute distress. OBJECTIVE: Vital Signs Period Temp Pulse Resp BP Sys/Garza Pulse Ox Last 24 Hr 97.6 F-98.5 F 80-101 16-18 95-123/44-69 95-98 GENERAL: Alert and Oriented x3. Arousal to verbal stimuli. HEAD: Atraumatic/Normocephalic EYES: EOMI Sclera Clear ENT: MMM. NECK: Trachea midline, full range of motion, supple. LUNGS: Crackles b/l upper lobes. DEC BS@ BASES. HEART: Irregularly irregular ABDOMEN: NDNT EXTREMITIES: 2+ pulses, warm, well-perfused, no edema. NEUROLOGICAL: Cranial nerves II through XII grossly intact. observed. PSYCH: Normal mood, normal affect. SKIN: Warm, dry, normal turgor, no rashes or lesions noted Laboratory Results - last 24 hr 12/19/18 12/19/18 12/20/18 00:00 17:37 06:00 WBC 4.0 RBC 4.24 Hgb 9.1 L Hct 30.2 L MCV 71.3 L MCH 21.5 L MCHC 30.2 L RDW 19.0 H Plt Count 129 L MPV 9.4 Neutrophils % No Result Required. Neutrophils % (Manual) 44.5 Band Neutrophils % 0.0 Lymphocytes % No Result Required. Lymphocytes % (Manual) 38.4 D Monocytes % (Manual) 12 H D Eosinophils % (Manual) 1.0 Basophils % (Manual) 3.0 H Myelocytes % (Man) 0 D Promyelocytes % (Man) 0 Blast Cells % (Manual) 0 Nucleated RBC % 0 Metamyelocytes 0 D Anisocytosis 1+ Microcytosis 1+ Target Cells 1+ Ovalocytes 1+ Sodium Potassium Chloride Carbon Dioxide Anion Gap BUN Creatinine Creat Clearance w eGFR Random Glucose Calcium Phosphorus Magnesium Total Bilirubin AST ALT Alkaline Phosphatase Creatine Kinase 56 Troponin I 0.10 H 0.09 H Total Protein Albumin 12/20/18 12/20/18 06:00 06:00 WBC RBC Hgb Hct MCV MCH MCHC RDW Plt Count MPV Neutrophils % Neutrophils % (Manual) Band Neutrophils % Lymphocytes % Lymphocytes % (Manual) Monocytes % (Manual) Eosinophils % (Manual) Basophils % (Manual) Myelocytes % (Man) Promyelocytes % (Man) Blast Cells % (Manual) Nucleated RBC % Metamyelocytes Anisocytosis Microcytosis Target Cells Ovalocytes Sodium 142 Potassium 3.2 L Chloride 101 Carbon Dioxide 38 H Anion Gap 4 L BUN 16 Creatinine 0.9 Creat Clearance w eGFR 58.95 Random Glucose 114 H Calcium 8.7 Phosphorus 3.7 Magnesium 1.8 Total Bilirubin 0.4 AST 11 L ALT 20 Alkaline Phosphatase 70 Creatine Kinase Troponin I 0.08 H Total Protein 6.7 Albumin 2.7 L Active Medications Generic Name Dose Route Start Last Admin Trade Name Freq PRN Reason Stop Dose Admin Acetaminophen 650 mg 12/19/18 16:06 12/20/18 01:15 Tylenol - PO 650 mg Q6H PRN Administration FEVER Albuterol/Ipratropium 1 amp 12/19/18 16:04 Duoneb - NEB Q6H PRN SHORTNESS OF BREATH Atenolol 50 mg 12/20/18 10:00 12/20/18 09:24 Tenormin - PO 50 mg DAILY LISA Administration Atorvastatin Calcium 20 mg 12/19/18 22:00 12/19/18 22:21 Lipitor - PO 20 mg HS LISA Administration Budesonide/Formoterol Fumarate 1 puff 12/19/18 22:00 12/20/18 09:25 Symbicort 160/4.5mcg - IH 1 puff BID LISA Administration Escitalopram Oxalate 10 mg 12/20/18 10:00 12/20/18 09:24 Lexapro - PO 10 mg DAILY LISA Administration Furosemide 40 mg 12/20/18 10:00 12/20/18 09:25 Lasix Injection - IVPUSH 40 mg DAILY LISA Administration Ertapenem 1 gm/ Sodium 50 mls @ 100 mls/hr 12/20/18 12:15 12/20/18 16:45 Chloride IVPB 100 mls/hr DAILY LISA Administration Ramipril 2.5 mg 12/21/18 10:00 Altace - PO DAILY LISA Spironolactone 25 mg 12/20/18 10:00 12/20/18 09:24 Aldactone - PO 25 mg DAILY LISA Administration ASSESSMENT/PLAN: 88 [facility] F from [facility] w/PMH of Afib (not on AC due to hematuria), CHF, CAD, HTN, COPD (on 2L O2 at home) admitted for SOB secondary to CHF exacerbation , r/o acs, and found to have UTI. #Chest tightness -Trops trending down -Given 162 mg ASA in ER -Cardiology on board #SOB 2/2 acute on chronic Diastolic CHF -Echo on 07/2018 - EF 60-65%. LA mod/severely dilated. RA mod dilated. Mod MR. Mod TR. RVSP elevated at 74 mmHG. -Lasix 40mg IV qd -c/w atenolol, spironolactone -strict I/Os, daily weights #UTI -Given ceftriaxone in ER. -Ceftriaxone Switched to Ertapenem in light of pt's history of ESBL UTI. -f/u UCx -tylenol for fevers #HTN -Ramipril 2.5 MG PO Daily #COPD -not in acute exacerbation -c/w symbicort -duonebs PRN #HLD -c/w lipitor 20 mg qd #DVT ppx -SCDs #FEN -no fluids -Monitor electrolytes -Low salt, cardiac diet #Dispo: tele Visit type - Emergency Visit Emergency Visit: Yes ED Registration Date: 12/19/18 Care time: The patient presented to the Emergency Department on the above date and was hospitalized for further evaluation of their emergent condition. - New Patient This patient is new to me today: No - Critical Care Critical Care patient: No - Discharge Referral Referred to [facility] Med P.C.: No
[2018-12-20] MEDS: ATORVASTATIN CA 20 MG TABLET (FP) PO SCH (21:26)
[2018-12-21] MEDS: ALBUTEROL SO4 2.5/IPRATROPIUM 0.5 INH SOL 3 ML VIAL.NEB. NEB PRN ×2 (06:17→10:12)
[2018-12-21 07:30] LABS: HEMATOCRIT 30.1 % (32.4-45.2); HEMOGLOBIN 9.2 GM/dL (10.7-15.3); MCH 21.8 pg (25.7-33.7); MCHC 30.4 g/dl (32.0-36.0); MEAN CELL VOLUME 71.8 fl (80-96); MEAN PLT VOLUME 9.2 fl (7.5-11.1); PLATELET COUNT 130 K/MM3 (134-434); RDW 18.4 % (11.6-15.6)
[2018-12-21 07:56] LABS: ANION GAP 4 MMOL/L (8-16); BLOOD UREA NITROGEN 14 mg/dL (7-18); CALCIUM 8.7 mg/dL (8.5-10.1); CHLORIDE 101 mmol/L (98-107); CO2 38 mmol/L (21-32); CREATININE 0.8 mg/dL (0.55-1.3); GLUCOSE,RANDOM 87 mg/dL (74-106); MAGNESIUM 1.6 mg/dL (1.8-2.4); POTASSIUM 3.9 mmol/L (3.5-5.1); SODIUM 143 mmol/L (136-145)
[2018-12-21] MEDS ORDERED: PT OWN MED DRAWER 7, Y5N ONE ×2 (09:15→18:57)
[2018-12-21] MEDS ORDERED: MAGNESIUM SULF 50% (8.12 MEQ/2 ML-1 GM VIAL) IVPB ONE (09:15)
[2018-12-21] MEDS: RAMIPRIL 2.5 MG CAPSULE (FP) PO SCH (09:29)
[2018-12-21] MEDS: ESCITALOPRAM OXALATE 10 MG TABLET (FP) PO SCH (09:29)
[2018-12-21] MEDS: FUROSEMIDE 40 MG/4 ML INJECTABLE VIAL IVPUSH SCH (09:29)
[2018-12-21] MEDS: SPIRONOLACTONE 25 MG TABLET (FP) PO SCH (09:29)
[2018-12-21] MEDS: ATENOLOL 50 MG TABLET (FP) PO SCH (09:29)
[2018-12-21] MEDS: BUDESONIDE/FORMETEROL FUMARATE 160/4.5 mcg INHALER IH SCH ×2 (09:30→21:10)
[2018-12-21] MEDS: ERTAPENEM SODIUM 1 GM in SODIUM CHLORIDE 50 ML IVPB SCH (09:34)
--- NOTE | 2018-12-21 10:52 | PN ---
Progress Note (short form) - Note Progress Note: s: no cp palps dizzy; sob improving o: Vital Signs Period Temp Pulse Resp BP Sys/Garza Pulse Ox Last 24 Hr 97.6 F-99.2 F 84-93 18-19 109-134/60-76 98 Constitutional: Yes: Well Nourished, No Distress Eyes: Yes: Conjunctiva Clear Neck: Yes: Supple, Trachea Midline, + JVD Respiratory: rales at bases raad Gastrointestinal: Yes: Normal Bowel Sounds, Soft Cardiovascular: Yes: Pulse Irregular JVD: no Heart Sounds: Yes: S1, S2 Edema: 1+ raad lower ext Peripheral Pulses: 2+ Left Doralis Pedis, 2+ Right Dorsalis Pedis Integumentary: No: Jaundice diaphoresis Neurological: Yes: Alert, Oriented Psychiatric: Yes: Alert, Oriented Current Medications Generic Name Dose Route Start Last Admin Trade Name Freq PRN Reason Stop Dose Admin Acetaminophen 650 mg 12/19/18 16:06 12/20/18 01:15 Tylenol - PO 650 mg Q6H PRN Administration FEVER Albuterol/Ipratropium 1 amp 12/19/18 16:04 12/21/18 10:12 Duoneb - NEB 1 amp Q6H PRN Administration SHORTNESS OF BREATH Atenolol 50 mg 12/20/18 10:00 12/21/18 09:29 Tenormin - PO 50 mg DAILY LISA Administration Atorvastatin Calcium 20 mg 12/19/18 22:00 12/20/18 21:26 Lipitor - PO 20 mg HS LISA Administration Budesonide/Formoterol Fumarate 1 puff 12/19/18 22:00 12/21/18 09:30 Symbicort 160/4.5mcg - IH 1 puff BID LISA Administration Escitalopram Oxalate 10 mg 12/20/18 10:00 12/21/18 09:29 Lexapro - PO 10 mg DAILY LISA Administration Furosemide 40 mg 12/20/18 10:00 12/21/18 09:29 Lasix Injection - IVPUSH 40 mg DAILY LISA Administration Ertapenem 1 gm/ Sodium 50 mls @ 100 mls/hr 12/20/18 12:15 12/21/18 09:34 Chloride IVPB 100 mls/hr DAILY LISA Administration Ramipril 2.5 mg 12/21/18 10:00 12/21/18 09:29 Altace - PO 2.5 mg DAILY LISA Administration Spironolactone 25 mg 12/20/18 10:00 12/21/18 09:29 Aldactone - PO 25 mg DAILY LISA Administration CBC, BMP 12/21/18 06:30 12/21/18 06:30 Echo 05/03: nl LVEF. mild RVE, mild-mod RV hypo. L/NEENA. mod MR/TR. RVSP at least 88 mmHg Echo 03/2017: Mild conc lvh. nl lv/rv size/fn, mod ronnie, mod mr, mod tr, rvsp 40- 50 EKG: afib rate okay, PVC, no ischemic changes CXR mild congestive changes Echo 07/2018 nl LV function, LA mod/severely dilated. RA mod dilated. Mod MR. Mod TR. RVSP elevated at 74 mmHG. tele: afib, rate ok Assessment/Plan 81F h/o afib, CHF, COPD (on home O2 2L), HTN, pulm HTN, hematuria s/p b/l perc nephrostomy sent from [place] for chest tightness, shortness of breath, UTI. acute on chronic diastolic HF exacerbation, cor pulmonale with RV failure - on lasix 40 mg daily as outpatient - BNP >7800, c/w prior values - continue lasix 40 mg IV daily, monitor daily standing weights, Cr, lytes - continue atenolol, spironolactone chest tightness - trop indeterminate range, stable compared to prior values - EKG unchanged, less likely ACS UTI - on IV abx, manage per primary afib: - HR control overall acceptable at present, cont bb - holding eliquis for hx of severe hematuria, anemia. COPD - stable, manage per primary HLD - continue statin cad, NSTEMI, staph bacteremia 07/2018: -periop hypotension 08/11 during cysto, briefly on pressors. likely due to bacteremia, overdiuresis -trop 2.0 the following day, trended down, likely Type II CT sec to hypoperfusion/sepsis (+/- underlying stable CAD). ECG 08/[address] depressions inferior leads, improved on 08/12 tracing--cannot exclude Type I CT at time of events. -AC initially held for gross hematuria with large clots/hydronephrosis, was back on eliquis and now stopped again due to hematuria. defer aspirin -BB and afib HR control as doing -defer invasive CAD mgmt approach given poor functional status with competing mortality limitations from severe lung dz, low likelihood to improve prognosis, and risks > benefits (including bleeding, AIN)
--- NOTE | 2018-12-21 13:47 | PN ---
Physical Exam: SUBJECTIVE: Patient seen and examined at bedside. No acute events overnight. Denies shortness of breath. OBJECTIVE: Vital Signs Period Temp Pulse Resp BP Sys/Garza Pulse Ox Last 24 Hr 97.6 F-99.2 F 84-93 18-19 109-134/60-76 98 GENERAL: NAD. Responds to verbal stimuli. HEAD: NC/AT EYES: EOMI Sclera Clear ENT: MMM. NECK: Trachea midline, full range of motion, supple. LUNGS: Crackles b/l upper lobes. Expiratory wheezing. HEART: Irregularly irregular ABDOMEN: NDNT EXTREMITIES: 1+ pitting edema b/l. NEUROLOGICAL: Cranial nerves II through XII grossly intact. observed. PSYCH: Normal mood, normal affect. SKIN: Warm, dry, normal turgor, no rashes or lesions noted Laboratory Results - last 24 hr 12/21/18 12/21/18 06:30 06:30 WBC 5.0 RBC 4.20 Hgb 9.2 L Hct 30.1 L MCV 71.8 L MCH 21.8 L MCHC 30.4 L RDW 18.4 H Plt Count 130 L MPV 9.2 Sodium 143 Potassium 3.9 Chloride 101 Carbon Dioxide 38 H Anion Gap 4 L BUN 14 Creatinine 0.8 Creat Clearance w eGFR > 60 Random Glucose 87 Calcium 8.7 Phosphorus 3.0 Magnesium 1.6 L Active Medications Generic Name Dose Route Start Last Admin Trade Name Freq PRN Reason Stop Dose Admin Acetaminophen 650 mg 12/19/18 16:06 12/20/18 01:15 Tylenol - PO 650 mg Q6H PRN Administration FEVER Albuterol/Ipratropium 1 amp 12/19/18 16:04 12/21/18 10:12 Duoneb - NEB 1 amp Q6H PRN Administration SHORTNESS OF BREATH Atenolol 50 mg 12/20/18 10:00 12/21/18 09:29 Tenormin - PO 50 mg DAILY LISA Administration Atorvastatin Calcium 20 mg 12/19/18 22:00 12/20/18 21:26 Lipitor - PO 20 mg HS LISA Administration Budesonide/Formoterol Fumarate 1 puff 12/19/18 22:00 12/21/18 09:30 Symbicort 160/4.5mcg - IH 1 puff BID LISA Administration Escitalopram Oxalate 10 mg 12/20/18 10:00 12/21/18 09:29 Lexapro - PO 10 mg DAILY LISA Administration Furosemide 40 mg 12/20/18 10:00 12/21/18 09:29 Lasix Injection - IVPUSH 40 mg DAILY LISA Administration Ertapenem 1 gm/ Sodium 50 mls @ 100 mls/hr 12/20/18 12:15 12/21/18 09:34 Chloride IVPB 100 mls/hr DAILY LISA Administration Ramipril 2.5 mg 12/21/18 10:00 12/21/18 09:29 Altace - PO 2.5 mg DAILY LISA Administration Spironolactone 25 mg 12/20/18 10:00 12/21/18 09:29 Aldactone - PO 25 mg DAILY LISA Administration ASSESSMENT/PLAN: 88 y/o F from [facility] w/PMH of Afib (not on AC due to hematuria), CHF, CAD, HTN, COPD (on 2L O2 at home) admitted for SOB secondary to CHF exacerbation , r/o acs, and found to have UTI. #Chest tightness -Trops trending down -Given 162 mg ASA in ER -Cardiology on board- Dr Moreland. OK to resume ASA. #SOB 2/2 acute on chronic Diastolic CHF -Echo on 07/2018 - EF 60-65%. LA mod/severely dilated. RA mod dilated. Mod MR. Mod TR. RVSP elevated at 74 mmHG. -Lasix 40mg IV qd -c/w atenolol, spironolactone -strict I/Os, daily weights. Weight today 75.013--Down from 79.016 #UTI -Given ceftriaxone in ER. -Ceftriaxone Switched to Ertapenem in light of pt's history of ESBL UTI. -Urine Culture--> + Klebsiella and ESBL. Sensative to Ertapenem. -tylenol for fevers #HTN -Ramipril 2.5 MG PO Daily #COPD -not in acute exacerbation -c/w symbicort -duonebs PRN #HLD -c/w lipitor 20 mg qd #DVT ppx -SCDs #FEN -no fluids -Monitor electrolytes -Low salt, cardiac diet #Dispo: tele Visit type - Emergency Visit Emergency Visit: Yes ED Registration Date: 12/19/18 Care time: The patient presented to the Emergency Department on the above date and was hospitalized for further evaluation of their emergent condition. - New Patient This patient is new to me today: No - Critical Care Critical Care patient: No - Discharge Referral Referred to [facility] Med P.C.: No
[2018-12-21] MEDS: ACETAMINOPHEN 325 MG TABLET (FP) PO PRN (14:44)
--- NOTE | 2018-12-21 14:58 | PN ---
Teaching Attending Note Name of Resident: Marco A Colon ATTENDING PHYSICIAN STATEMENT I saw and evaluated the patient. I reviewed the resident's note and discussed the case with the resident. I agree with the resident's findings and plan as documented. SUBJECTIVE: No fever or chills. no abd pain , no WEBER , denies any complaints. No events over night OBJECTIVE: NAD, awake, alert , cooperative. CV: RRR Lungs: CTAB Ext : 2+ edema , No erythema Abd: soft, ND, NL BS ,NT ASSESSMENT AND PLAN: 88 y/o lady with h/o Afib (not on AC due to hematuria), CHF,severe pulmonary hypertension, CAD, HTN, COPD on 2 L of home O2 , she resented with SOb and chest tightness. She was found to have acute CHF exacerbation 1- Acute on chronic diastolic heart failure: - cont IV lasix . monitor weight . - cont atenolol and spironolactone 2- Chest pain, EKG with no change. slight increase in trop - cont atenolol 3- h/o HTN: resume ramipril cont atenolol 4- UTI:Urine cx reviewed. -Cont ertapenem day 2 5- H/o A fib : not on full AC due to hematuria. will ask card if we can use ASA Dispo HLOC
[2018-12-21] MEDS: ATORVASTATIN CA 20 MG TABLET (FP) PO SCH (21:10)
[2018-12-22 06:41] LABS: HEMATOCRIT 30.9 % (32.4-45.2); HEMOGLOBIN 9.3 GM/dL (10.7-15.3); MCH 22.2 pg (25.7-33.7); MCHC 30.2 g/dl (32.0-36.0); MEAN CELL VOLUME 73.5 fl (80-96); MEAN PLT VOLUME 9.3 fl (7.5-11.1); PLATELET COUNT 122 K/MM3 (134-434); RDW 18.9 % (11.6-15.6); WHITE BLOOD COUNT 4.2 K/mm3 (4.0-10.0)
[2018-12-22 08:10] LABS: ANION GAP 4 MMOL/L (8-16); BLOOD UREA NITROGEN 13 mg/dL (7-18); CALCIUM 8.6 mg/dL (8.5-10.1); CHLORIDE 99 mmol/L (98-107); CO2 40 mmol/L (21-32); CREATININE 0.7 mg/dL (0.55-1.3); GLUCOSE,RANDOM 135 mg/dL (74-106); MAGNESIUM 2.1 mg/dL (1.8-2.4); PHOSPHOROUS 2.7 mg/dL (2.5-4.9); POTASSIUM 3.2 mmol/L (3.5-5.1); SODIUM 143 mmol/L (136-145)
[2018-12-22] MEDS ORDERED: POTASSIUM CHLORIDE TABS 20 MEQ TABLET.ER (FP) PO ONE (09:16)
[2018-12-22] MEDS ORDERED: PT OWN MED DRAWER 7, Y5N ONE (10:29)
[2018-12-22] MEDS: ERTAPENEM SODIUM 1 GM in SODIUM CHLORIDE 50 ML IVPB SCH (10:41)
[2018-12-22] MEDS: RAMIPRIL 2.5 MG CAPSULE (FP) PO SCH (10:42)
[2018-12-22] MEDS: SPIRONOLACTONE 25 MG TABLET (FP) PO SCH (10:42)
[2018-12-22] MEDS: ATENOLOL 50 MG TABLET (FP) PO SCH (10:42)
[2018-12-22] MEDS: BUDESONIDE/FORMETEROL FUMARATE 160/4.5 mcg INHALER IH SCH ×2 (10:43→21:50)
--- NOTE | 2018-12-22 11:16 | PN ---
Progress Note (short form) - Note Progress Note: s: no cp palps dizzy; sob improving o: Vital Signs Period Temp Pulse Resp BP Sys/Garza Pulse Ox Last 24 Hr 97.6 F-99 F 86-95 16-21 99-122/55-64 96 Constitutional: Yes: Well Nourished, No Distress Eyes: Yes: Conjunctiva Clear Neck: Yes: Supple, Trachea Midline, + JVD Respiratory: rales at bases raad Gastrointestinal: Yes: Normal Bowel Sounds, Soft Cardiovascular: Yes: Pulse Irregular JVD: no Heart Sounds: Yes: S1, S2 Edema: 1+ raad lower ext Peripheral Pulses: 2+ Left Doralis Pedis, 2+ Right Dorsalis Pedis Integumentary: No: Jaundice diaphoresis Neurological: Yes: Alert, Oriented Psychiatric: Yes: Alert, Oriented Current Medications Generic Name Dose Route Start Last Admin Trade Name Freq PRN Reason Stop Dose Admin Acetaminophen 650 mg 12/19/18 16:06 12/21/18 14:44 Tylenol - PO 650 mg Q6H PRN Administration FEVER Albuterol/Ipratropium 1 amp 12/19/18 16:04 12/21/18 10:12 Duoneb - NEB 1 amp Q6H PRN Administration SHORTNESS OF BREATH Atenolol 50 mg 12/20/18 10:00 12/22/18 10:42 Tenormin - PO 50 mg DAILY LISA Administration Atorvastatin Calcium 20 mg 12/19/18 22:00 12/21/18 21:10 Lipitor - PO 20 mg HS LISA Administration Budesonide/Formoterol Fumarate 1 puff 12/19/18 22:00 12/22/18 10:43 Symbicort 160/4.5mcg - IH 1 puff BID LISA Administration Escitalopram Oxalate 10 mg 12/20/18 10:00 12/21/18 09:29 Lexapro - PO 10 mg DAILY LISA Administration Furosemide 40 mg 12/20/18 10:00 12/21/18 09:29 Lasix Injection - IVPUSH 40 mg DAILY LISA Administration Ertapenem 1 gm/ Sodium 50 mls @ 100 mls/hr 12/20/18 12:15 12/22/18 10:41 Chloride IVPB 100 mls/hr DAILY LISA Administration Ramipril 2.5 mg 12/21/18 10:00 12/22/18 10:42 Altace - PO 2.5 mg DAILY LISA Administration Spironolactone 25 mg 12/20/18 10:00 12/22/18 10:42 Aldactone - PO 25 mg DAILY LISA Administration Echo 05/03: nl LVEF. mild RVE, mild-mod RV hypo. L/NEENA. mod MR/TR. RVSP at least 88 mmHg Echo 03/2017: Mild conc lvh. nl lv/rv size/fn, mod ronnie, mod mr, mod tr, rvsp 40- 50 EKG: afib rate okay, PVC, no ischemic changes CXR mild congestive changes Echo 07/2018 nl LV function, LA mod/severely dilated. RA mod dilated. Mod MR. Mod TR. RVSP elevated at 74 mmHG. tele: afib, rate ok Assessment/Plan 81F h/o afib, CHF, COPD (on home O2 2L), HTN, pulm HTN, hematuria s/p b/l perc nephrostomy sent from [place] for chest tightness, shortness of breath, UTI. acute on chronic diastolic HF exacerbation, cor pulmonale with RV failure - on lasix 40 mg daily as outpatient - BNP >7800, c/w prior values - continue lasix 40 mg IV daily, monitor daily standing weights, Cr, lytes - continue atenolol, spironolactone chest tightness - trop indeterminate range, stable compared to prior values - EKG unchanged, less likely ACS UTI - on IV abx, manage per primary afib: - HR control overall acceptable at present, cont bb - holding eliquis for hx of severe hematuria, anemia. COPD - stable, manage per primary HLD - continue statin cad, NSTEMI, staph bacteremia 07/2018: -periop hypotension 08/11 during cysto, briefly on pressors. likely due to bacteremia, overdiuresis -trop 2.0 the following day, trended down, likely Type II LA sec to hypoperfusion/sepsis (+/- underlying stable CAD). ECG 08/[address] depressions inferior leads, improved on 08/12 tracing--cannot exclude Type I LA at time of events. -AC initially held for gross hematuria with large clots/hydronephrosis, was back on eliquis and now stopped again due to hematuria. -BB and afib HR control as doing -defer invasive CAD mgmt approach given poor functional status with competing mortality limitations from severe lung dz, low likelihood to improve prognosis, and risks > benefits (including bleeding, AIN) dc tele
[2018-12-22] MEDS: FUROSEMIDE 40 MG/4 ML INJECTABLE VIAL IVPUSH SCH (11:45)
[2018-12-22] MEDS: ESCITALOPRAM OXALATE 10 MG TABLET (FP) PO SCH (11:45)
[2018-12-22] MEDS: ACETAMINOPHEN 325 MG TABLET (FP) PO PRN (11:53)
--- NOTE | 2018-12-22 17:37 | PN ---
Teaching Attending Note Name of Resident: Marco A Colon ATTENDING PHYSICIAN STATEMENT I saw and evaluated the patient. I reviewed the resident's note and discussed the case with the resident. I agree with the resident's findings and plan as documented. SUBJECTIVE: feels tired and achy in back OBJECTIVE: NAD, sleepy , arousable , alert , cooperative. CV: RRR Lungs: CTAB Ext : 1+ edema , No erythema Abd: soft, ND, NL BS ,NT ASSESSMENT AND PLAN: 88 y/o lady with h/o Afib (not on AC due to hematuria), CHF,severe pulmonary hypertension, CAD, HTN, COPD on 2 L of home O2 , she resented with SOb and chest tightness. She was found to have acute CHF exacerbation 1- Acute on chronic diastolic heart failure: - cont IV lasix . monitor weight . - cont atenolol and spironolactone 2- Chest pain, EKG with no change. slight increase in trop - cont atenolol 3- h/o HTN: cont ramipril cont atenolol 4- UTI: with ESBL -Cont ertapenem day 3 5- H/o A fib : no full AC due to hematuria start aspirin Dispo HLOC A
[2018-12-22] MEDS: ATORVASTATIN CA 20 MG TABLET (FP) PO SCH (21:50)
[2018-12-22] MEDS ORDERED: ALBUTEROL SO4 2.5/IPRATROPIUM 0.5 INH SOL 3 ML VIAL.NEB. NEB PRN (23:30)
[2018-12-22] MEDS ORDERED: ACETAMINOPHEN 325 MG TABLET (FP) PO PRN (23:30)
[2018-12-23] MEDS ORDERED: ALBUTEROL SO4 2.5/IPRATROPIUM 0.5 INH SOL 3 ML VIAL.NEB. NEB PRN (01:56)
[2018-12-23] MEDS ORDERED: ACETAMINOPHEN 325 MG TABLET (FP) PO PRN (01:56)
--- NOTE | 2018-12-23 05:26 | PN ---
Physical Exam: SUBJECTIVE: Patient seen and examined at bed side , no acute events over night . still have some edema in legs , OBJECTIVE: Vital Signs Period Temp Pulse Resp BP Sys/Garza Pulse Ox Last 24 Hr 97.4 F-99 F 83-90 18-20 100-123/56-64 96-98 GENERAL: NAD. HEAD: NC/AT EYES: EOMI, Sclera Clear ENT: MMM. NECK: supple LUNGS: fine Crackles bibasilar . HEART: Irregularly irregular ABDOMEN: ND/NT EXTREMITIES: 1+ pitting edema b/l. NEUROLOGICAL: no focal deficit PSYCH: Normal mood, normal affect. SKIN: Warm, dry, normal turgor, Laboratory Results - last 24 hr 12/22/18 12/22/18 06:00 06:00 WBC 4.2 RBC 4.20 Hgb 9.3 L Hct 30.9 L MCV 73.5 L MCH 22.2 L MCHC 30.2 L RDW 18.9 H Plt Count 122 L MPV 9.3 Sodium 143 Potassium 3.2 L Chloride 99 Carbon Dioxide 40 H Anion Gap 4 L BUN 13 Creatinine 0.7 Creat Clearance w eGFR > 60 Random Glucose 135 H Calcium 8.6 Phosphorus 2.7 Magnesium 2.1 Active Medications Generic Name Dose Route Start Last Admin Trade Name Freq PRN Reason Stop Dose Admin Acetaminophen 650 mg 12/23/18 01:56 Tylenol - PO Q6H PRN FEVER Albuterol/Ipratropium 1 amp 12/23/18 01:56 Duoneb - NEB Q6H PRN SHORTNESS OF BREATH Aspirin 81 mg 12/23/18 10:00 Ecotrin - PO DAILY LISA Atenolol 50 mg 12/23/18 10:00 Tenormin - PO DAILY LISA Atorvastatin Calcium 20 mg 12/23/18 22:00 Lipitor - PO HS LISA Budesonide/Formoterol Fumarate 1 puff 12/23/18 10:00 Symbicort 160/4.5mcg - IH BID LISA Escitalopram Oxalate 10 mg 12/23/18 10:00 Lexapro - PO DAILY LISA Furosemide 40 mg 12/23/18 10:00 Lasix Injection - IVPUSH DAILY LISA Ertapenem 1 gm/ Sodium 50 mls @ 100 mls/hr 12/23/18 10:00 Chloride IVPB DAILY LISA Ramipril 2.5 mg 12/23/18 10:00 Altace - PO DAILY LISA Spironolactone 25 mg 12/23/18 10:00 Aldactone - PO DAILY LISA CBC, BMP 12/22/18 06:00 ASSESSMENT/PLAN: 88 y/o F from [facility] w/PMH of Afib (not on AC due to hematuria), CHF, CAD, HTN, COPD (on 2L O2 at home) admitted for SOB secondary to CHF exacerbation , r/o acs, and found to have UTI. #Chest tightness * Trops peaked * Given 162 mg ASA in ER * Cardiology on board- Dr Moreland cont asa #SOB 2/2 acute on chronic Diastolic CHF * Echo on 07/2018 - EF 60-65%. LA mod/severely dilated. RA mod dilated. Mod MR. Mod TR. RVSP elevated at 74 mmHG. * Lasix 40mg IV qd * c/w atenolol, spironolactone * strict I/Os, daily weights. 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 * follow up as out pt #HTN, stable * Ramipril 2.5 MG PO Daily * spirnolacton 25 daily #COPD * not in acute exacerbation * c/w symbicort * duonebs PRN #HLD * cont lipitor 20 mg qd #DVT ppx * SCDs, ASA #FEN * no standing fluids * Monitor electrolytes, hypokalemia replenished * Low salt, cardiac diet #Dispo: monitor in med surg , DC tele Visit type - Emergency Visit Emergency Visit: Yes ED Registration Date: 12/19/18 Care time: The patient presented to the Emergency Department on the above date and was hospitalized for further evaluation of their emergent condition. - New Patient This patient is new to me today: No - Critical Care Critical Care patient: No - Discharge Referral Referred to [facility] Med P.C.: No
[2018-12-23] MEDS ORDERED: POTASSIUM CHLORIDE TABS 20 MEQ TABLET.ER (FP) PO ONE (09:47)
[2018-12-23] MEDS ORDERED: ESCITALOPRAM OXALATE 10 MG TABLET (FP) PO SCH (10:00)
[2018-12-23] MEDS ORDERED: SPIRONOLACTONE 25 MG TABLET (FP) PO SCH (10:00)
[2018-12-23] MEDS ORDERED: BUDESONIDE/FORMETEROL FUMARATE 160/4.5 mcg INHALER IH SCH (10:00)
[2018-12-23] MEDS ORDERED: ASPIRIN COATED 81 MG TABLET.EC PO SCH ×2 (10:00)
[2018-12-23] MEDS ORDERED: RAMIPRIL 2.5 MG CAPSULE (FP) PO SCH (10:00)
[2018-12-23] MEDS ORDERED: FUROSEMIDE 40 MG/4 ML INJECTABLE VIAL IVPUSH SCH (10:00)
[2018-12-23] MEDS ORDERED: ATENOLOL 50 MG TABLET (FP) PO SCH (10:00)
[2018-12-23] MEDS ORDERED: ERTAPENEM SODIUM 1 GM in SODIUM CHLORIDE 50 ML IVPB SCH (10:00)
[2018-12-23] MEDS ORDERED: PT OWN MED DRAWER 7, Y5N ONE ×3 (10:10→12:39)
[2018-12-23] MEDS: SPIRONOLACTONE 25 MG TABLET (FP) PO SCH (10:21)
[2018-12-23] MEDS: ESCITALOPRAM OXALATE 10 MG TABLET (FP) PO SCH (10:22)
[2018-12-23] MEDS: ATENOLOL 50 MG TABLET (FP) PO SCH (10:22)
[2018-12-23] MEDS: ASPIRIN COATED 81 MG TABLET.EC PO SCH (10:22)
[2018-12-23] MEDS: FUROSEMIDE 40 MG/4 ML INJECTABLE VIAL IVPUSH SCH (10:24)
[2018-12-23] MEDS: BUDESONIDE/FORMETEROL FUMARATE 160/4.5 mcg INHALER IH SCH ×2 (10:24→21:50)
[2018-12-23] MEDS: ERTAPENEM SODIUM 1 GM in SODIUM CHLORIDE 50 ML IVPB SCH (10:24)
--- NOTE | 2018-12-23 11:42 | PN ---
Teaching Attending Note Name of Resident: Cholo García ATTENDING PHYSICIAN STATEMENT I saw and evaluated the patient. I reviewed the resident's note and discussed the case with the resident. I agree with the resident's findings and plan as documented. SUBJECTIVE: No fever or chills. No abd pain. no WEBER .has chronic lower back pain. SOB improved OBJECTIVE: NAD, awake. CV: irreg irreg Lungs: decreased breath sounds at bases Ext : 1+ edema , No erythema Abd: soft, ND, NL BS , minimal TTP in all quadrants. ASSESSMENT AND PLAN: 88 y/o lady with h/o Afib (not on AC due to hematuria), CHF,severe pulmonary hypertension, CAD, HTN, COPD on 2 L of home O2 , she resented with SOb and chest tightness. She was found to have acute CHF exacerbation 1- Acute on chronic diastolic heart failure: - cont IV lasix. monitor weight ( improved) . - cont atenolol and spironolactone 2- Chest pain, EKG with no change. 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 - will refer to heme as out pt Dispo HLOC
--- NOTE | 2018-12-23 11:44 | PN ---
Progress Note (short form) - Note Progress Note: s: no cp palps dizzy; sob improving o: Vital Signs Period Temp Pulse Resp BP Sys/Garza Pulse Ox Last 24 Hr 97.4 F-98.3 F 83-92 18-18 100-123/56-64 98 Constitutional: Yes: Well Nourished, No Distress Eyes: Yes: Conjunctiva Clear Neck: Yes: Supple, Trachea Midline, + JVD Respiratory: rales at bases raad Gastrointestinal: Yes: Normal Bowel Sounds, Soft Cardiovascular: Yes: Pulse Irregular JVD: no Heart Sounds: Yes: S1, S2 Edema: 1+ raad lower ext Peripheral Pulses: 2+ Left Doralis Pedis, 2+ Right Dorsalis Pedis Integumentary: No: Jaundice diaphoresis Neurological: Yes: Alert, Oriented Psychiatric: Yes: Alert, Oriented Current Medications Generic Name Dose Route Start Last Admin Trade Name Freq PRN Reason Stop Dose Admin Acetaminophen 650 mg 12/23/18 01:56 Tylenol - PO Q6H PRN FEVER Albuterol/Ipratropium 1 amp 12/23/18 01:56 Duoneb - NEB Q6H PRN SHORTNESS OF BREATH Aspirin 81 mg 12/23/18 10:00 12/23/18 10:22 Ecotrin - PO 81 mg DAILY LISA Administration Atenolol 50 mg 12/23/18 10:00 12/23/18 10:22 Tenormin - PO 50 mg DAILY LISA Administration Atorvastatin Calcium 20 mg 12/23/18 22:00 Lipitor - PO HS LISA Budesonide/Formoterol Fumarate 1 puff 12/23/18 10:00 12/23/18 10:24 Symbicort 160/4.5mcg - IH 1 puff BID LISA Administration Escitalopram Oxalate 10 mg 12/23/18 10:00 12/23/18 10:22 Lexapro - PO 10 mg DAILY LISA Administration Furosemide 40 mg 12/23/18 10:00 12/23/18 10:24 Lasix Injection - IVPUSH 40 mg DAILY LISA Administration Ertapenem 1 gm/ Sodium 50 mls @ 100 mls/hr 12/23/18 10:00 12/23/18 10:24 Chloride IVPB 100 mls/hr DAILY LISA Administration Ramipril 2.5 mg 12/23/18 10:00 Altace - PO DAILY LISA Spironolactone 25 mg 12/23/18 10:00 12/23/18 10:21 Aldactone - PO 25 mg DAILY LISA Administration CBC, BMP 12/22/18 06:00 12/22/18 06:00 Echo 05/03: nl LVEF. mild RVE, mild-mod RV hypo. L/NEENA. mod MR/TR. RVSP at least 88 mmHg Echo 03/2017: Mild conc lvh. nl lv/rv size/fn, mod ronnie, mod mr, mod tr, rvsp 40- 50 EKG: afib rate okay, PVC, no ischemic changes CXR mild congestive changes Echo 07/2018 nl LV function, LA mod/severely dilated. RA mod dilated. Mod MR. Mod TR. RVSP elevated at 74 mmHG. Assessment/Plan 81F h/o afib, CHF, COPD (on home O2 2L), HTN, pulm HTN, hematuria s/p b/l perc nephrostomy sent from [place] for chest tightness, shortness of breath, UTI. acute on chronic diastolic HF exacerbation, cor pulmonale with RV failure - on lasix 40 mg daily as outpatient - BNP >7800, c/w prior values - wt down, LE edema better, continue lasix 40 mg IV daily, monitor daily standing weights, Cr, lytes - continue atenolol, spironolactone chest tightness - trop indeterminate range, stable compared to prior values - EKG unchanged, less likely ACS UTI - on IV abx, manage per primary afib: - HR control overall acceptable at present, cont bb - holding eliquis for hx of severe hematuria, anemia. COPD - stable, manage per primary HLD - continue statin cad, NSTEMI, staph bacteremia 07/2018: -periop hypotension 08/11 during cysto, briefly on pressors. likely due to bacteremia, overdiuresis -trop 2.0 the following day, trended down, likely Type II TN sec to hypoperfusion/sepsis (+/- underlying stable CAD). ECG 08/[address] depressions inferior leads, improved on 08/12 tracing--cannot exclude Type I TN at time of events. -AC initially held for gross hematuria with large clots/hydronephrosis, was back on eliquis and now stopped again due to hematuria. -BB and afib HR control as doing -defer invasive CAD mgmt approach given poor functional status with competing mortality limitations from severe lung dz, low likelihood to improve prognosis, and risks > benefits (including bleeding, AIN)
--- NOTE | 2018-12-23 12:35 | PN ---
Physical Exam: NOTE FOR 12/22/18. MEDITECH DOWN ON 12/22/18. SUBJECTIVE: Patient seen and examined at bedside. No acute events overnight. OBJECTIVE: Vital Signs Period Temp Pulse Resp BP Sys/Garza Pulse Ox Last 24 Hr 97.4 F-98.3 F 83-92 18-18 100-123/56-67 98 GENERAL: Resting in bed. NAD HEAD: NC/AT EYES: EOMI Sclera Clear ENT: MMM. NECK: Trachea midline, full range of motion, supple. LUNGS: Crackles b/l upper lobes. Good inspiratory effort. HEART: Irregularly irregular ABDOMEN: Nondistended nontender EXTREMITIES: 1+ pitting edema b/l. NEUROLOGICAL: Cranial nerves II through XII grossly intact. PSYCH: Normal mood, normal affect. SKIN: Warm, dry, normal turgor, no rashes or lesions noted Active Medications Generic Name Dose Route Start Last Admin Trade Name Freq PRN Reason Stop Dose Admin Acetaminophen 650 mg 12/23/18 01:56 Tylenol - PO Q6H PRN FEVER Albuterol/Ipratropium 1 amp 12/23/18 01:56 Duoneb - NEB Q6H PRN SHORTNESS OF BREATH Aspirin 81 mg 12/23/18 10:00 12/23/18 10:22 Ecotrin - PO 81 mg DAILY LISA Administration Atenolol 50 mg 12/23/18 10:00 12/23/18 10:22 Tenormin - PO 50 mg DAILY LISA Administration Atorvastatin Calcium 20 mg 12/23/18 22:00 Lipitor - PO HS LISA Budesonide/Formoterol Fumarate 1 puff 12/23/18 10:00 12/23/18 10:24 Symbicort 160/4.5mcg - IH 1 puff BID LISA Administration Escitalopram Oxalate 10 mg 12/23/18 10:00 12/23/18 10:22 Lexapro - PO 10 mg DAILY LISA Administration Furosemide 40 mg 12/23/18 10:00 12/23/18 10:24 Lasix Injection - IVPUSH 40 mg DAILY LISA Administration Ertapenem 1 gm/ Sodium 50 mls @ 100 mls/hr 12/23/18 10:00 12/23/18 10:24 Chloride IVPB 100 mls/hr DAILY LISA Administration Ramipril 2.5 mg 12/23/18 10:00 Altace - PO DAILY LISA Spironolactone 25 mg 12/23/18 10:00 12/23/18 10:21 Aldactone - PO 25 mg DAILY LISA Administration ASSESSMENT/PLAN: 88 y/o F from [facility] w/PMH of Afib (not on AC due to hematuria), CHF, CAD, HTN, COPD (on 2L O2 at home) admitted for SOB secondary to CHF exacerbation , r/o acs, and found to have UTI. #Chest tightness -Trops trending down -Given 162 mg ASA in ER -Cardiology on board- Dr Moreland. OK to resume ASA. #SOB 2/2 acute on chronic Diastolic CHF -Echo on 07/2018 - EF 60-65%. LA mod/severely dilated. RA mod dilated. Mod MR. Mod TR. RVSP elevated at 74 mmHG. -Lasix 40mg IV qd -c/w atenolol, spironolactone -strict I/Os, daily weights. Weight today 75.013--Down from 79.016 #UTI -Given ceftriaxone in ER. -Ceftriaxone Switched to Ertapenem in light of pt's history of ESBL UTI. -Urine Culture--> + Klebsiella and ESBL. Sensative to Ertapenem. -tylenol for fevers - Ertapenem day3 #HTN -Ramipril 2.5 MG PO Daily #COPD -not in acute exacerbation -c/w symbicort -duonebs PRN #HLD -c/w lipitor 20 mg qd #DVT ppx -SCDs #FEN -no fluids -Monitor electrolytes -Low salt, cardiac diet #Dispo: med-surg Visit type - Emergency Visit Emergency Visit: Yes ED Registration Date: 12/19/18 Care time: The patient presented to the Emergency Department on the above date and was hospitalized for further evaluation of their emergent condition. - New Patient This patient is new to me today: No - Critical Care Critical Care patient: No - Discharge Referral Referred to [facility] Med P.C.: No
[2018-12-23] MEDS: RAMIPRIL 2.5 MG CAPSULE (FP) PO SCH (12:41)
[2018-12-23 12:56] LABS: ANION GAP 2 MMOL/L (8-16); BLOOD UREA NITROGEN 11 mg/dL (7-18); CALCIUM 9.1 mg/dL (8.5-10.1); CHLORIDE 97 mmol/L (98-107); CO2 42 mmol/L (21-32); CREATININE 0.7 mg/dL (0.55-1.3); GLUCOSE,RANDOM 131 mg/dL (74-106); POTASSIUM 3.4 mmol/L (3.5-5.1); SODIUM 141 mmol/L (136-145)
[2018-12-23] MEDS: ATORVASTATIN CA 20 MG TABLET (FP) PO SCH (21:50)
[2018-12-23] MEDS ORDERED: ATORVASTATIN CA 20 MG TABLET (FP) PO SCH (22:00)
[2018-12-24] MEDS: ATENOLOL 50 MG TABLET (FP) PO SCH (09:25)
[2018-12-24] MEDS: ASPIRIN COATED 81 MG TABLET.EC PO SCH (09:25)
[2018-12-24] MEDS: SPIRONOLACTONE 25 MG TABLET (FP) PO SCH (09:26)
[2018-12-24] MEDS: ESCITALOPRAM OXALATE 10 MG TABLET (FP) PO SCH (09:26)
[2018-12-24] MEDS: ERTAPENEM SODIUM 1 GM in SODIUM CHLORIDE 50 ML IVPB SCH (09:26)
[2018-12-24] MEDS: RAMIPRIL 2.5 MG CAPSULE (FP) PO SCH (09:30)
[2018-12-24] MEDS: FUROSEMIDE 40 MG/4 ML INJECTABLE VIAL IVPUSH SCH ×2 (09:32→10:58)
[2018-12-24] MEDS: BUDESONIDE/FORMETEROL FUMARATE 160/4.5 mcg INHALER IH SCH ×2 (09:35→21:31)
--- NOTE | 2018-12-24 11:33 | PN ---
Progress Note (short form) - Note Progress Note: s: no cp palps dizzy; sob improving. fell in bathroom today, mechanical, no loc o: Vital Signs Period Temp Pulse Resp BP Sys/Garza Pulse Ox Last 24 Hr 98 F-98.6 F 85-88 18-20 112-112/64-66 98 Constitutional: Yes: Well Nourished, No Distress Eyes: Yes: Conjunctiva Clear Neck: Yes: Supple, Trachea Midline, + JVD Respiratory: rales at bases raad Gastrointestinal: Yes: Normal Bowel Sounds, Soft Cardiovascular: Yes: Pulse Irregular JVD: no Heart Sounds: Yes: S1, S2 Edema: 1+ raad lower ext Peripheral Pulses: 2+ Left Doralis Pedis, 2+ Right Dorsalis Pedis Integumentary: No: Jaundice diaphoresis Neurological: Yes: Alert, Oriented Psychiatric: Yes: Alert, Oriented Current Medications Generic Name Dose Route Start Last Admin Trade Name Freq PRN Reason Stop Dose Admin Acetaminophen 650 mg 12/23/18 01:56 Tylenol - PO Q6H PRN FEVER Albuterol/Ipratropium 1 amp 12/23/18 01:56 Duoneb - NEB Q6H PRN SHORTNESS OF BREATH Aspirin 81 mg 12/23/18 10:00 12/24/18 09:25 Ecotrin - PO 81 mg DAILY LISA Administration Atenolol 50 mg 12/23/18 10:00 12/24/18 09:25 Tenormin - PO 50 mg DAILY LISA Administration Atorvastatin Calcium 20 mg 12/23/18 22:00 12/23/18 21:50 Lipitor - PO 20 mg HS LISA Administration Budesonide/Formoterol Fumarate 1 puff 12/23/18 10:00 12/24/18 09:35 Symbicort 160/4.5mcg - IH 1 puff BID LISA Administration Escitalopram Oxalate 10 mg 12/23/18 10:00 12/24/18 09:26 Lexapro - PO 10 mg DAILY LISA Administration Furosemide 40 mg 12/23/18 10:00 12/24/18 10:58 Lasix Injection - IVPUSH 40 mg DAILY LISA Administration Ertapenem 1 gm/ Sodium 50 mls @ 100 mls/hr 12/23/18 10:00 12/24/18 09:26 Chloride IVPB 100 mls/hr DAILY LISA Administration Ramipril 2.5 mg 12/23/18 10:00 12/24/18 09:30 Altace - PO 2.5 mg DAILY LISA Administration Spironolactone 25 mg 12/23/18 10:00 12/24/18 09:26 Aldactone - PO 25 mg DAILY LISA Administration CBC, BMP 12/22/18 06:00 12/23/18 11:00 Echo 05/03: nl LVEF. mild RVE, mild-mod RV hypo. L/NEENA. mod MR/TR. RVSP at least 88 mmHg Echo 03/2017: Mild conc lvh. nl lv/rv size/fn, mod ronnie, mod mr, mod tr, rvsp 40- 50 EKG: afib rate okay, PVC, no ischemic changes CXR mild congestive changes Echo 07/2018 nl LV function, LA mod/severely dilated. RA mod dilated. Mod MR. Mod TR. RVSP elevated at 74 mmHG. Assessment/Plan 81F h/o afib, CHF, COPD (on home O2 2L), HTN, pulm HTN, hematuria s/p b/l perc nephrostomy sent from [place] for chest tightness, shortness of breath, UTI. acute on chronic diastolic HF exacerbation, cor pulmonale with RV failure - on lasix 40 mg daily as outpatient - BNP >7800, c/w prior values - wt down, LE edema better, continue lasix 40 mg IV daily, monitor daily weights , Cr, lytes - continue atenolol, spironolactone chest tightness - trop indeterminate range, stable compared to prior values - EKG unchanged, less likely ACS UTI - on IV abx, manage per primary afib: - HR control overall acceptable at present, cont bb - holding eliquis for hx of severe hematuria, anemia. COPD - stable, manage per primary HLD - continue statin cad, NSTEMI, staph bacteremia 07/2018: -periop hypotension 08/11 during cysto, briefly on pressors. likely due to bacteremia, overdiuresis -trop 2.0 the following day, trended down, likely Type II CT sec to hypoperfusion/sepsis (+/- underlying stable CAD). ECG 08/[address] depressions inferior leads, improved on 08/12 tracing--cannot exclude Type I CT at time of events. -AC initially held for gross hematuria with large clots/hydronephrosis, was back on eliquis and now stopped again due to hematuria. -BB and afib HR control as doing -defer invasive CAD mgmt approach given poor functional status with competing mortality limitations from severe lung dz, low likelihood to improve prognosis, and risks > benefits (including bleeding, AIN)
--- NOTE | 2018-12-24 12:16 | FALL ---
Fall Exam - Event Witnessed fall: Yes Location of Fall: Bathroom Fall from: While ambulating - Pre-Fall Mental Status: Alert, Oriented Current Medications: Current Medications Generic Name Dose Route Start Last Admin Trade Name Frepreeti PRN Reason Stop Dose Admin Acetaminophen 650 mg 12/23/18 01:56 Tylenol - PO Q6H PRN FEVER Albuterol/Ipratropium 1 amp 12/23/18 01:56 Duoneb - NEB Q6H PRN SHORTNESS OF BREATH Aspirin 81 mg 12/23/18 10:00 12/24/18 09:25 Ecotrin - PO 81 mg DAILY LISA Administration Atenolol 50 mg 12/23/18 10:00 12/24/18 09:25 Tenormin - PO 50 mg DAILY LISA Administration Atorvastatin Calcium 20 mg 12/23/18 22:00 12/23/18 21:50 Lipitor - PO 20 mg HS LISA Administration Budesonide/Formoterol Fumarate 1 puff 12/23/18 10:00 12/24/18 09:35 Symbicort 160/4.5mcg - IH 1 puff BID LISA Administration Escitalopram Oxalate 10 mg 12/23/18 10:00 12/24/18 09:26 Lexapro - PO 10 mg DAILY LISA Administration Furosemide 40 mg 12/23/18 10:00 12/24/18 10:58 Lasix Injection - IVPUSH 40 mg DAILY LISA Administration Ertapenem 1 gm/ Sodium 50 mls @ 100 mls/hr 12/23/18 10:00 12/24/18 09:26 Chloride IVPB 100 mls/hr DAILY LISA Administration Ramipril 2.5 mg 12/23/18 10:00 12/24/18 09:30 Altace - PO 2.5 mg DAILY LISA Administration Spironolactone 25 mg 12/23/18 10:00 12/24/18 09:26 Aldactone - PO 25 mg DAILY LISA Administration - Post-Fall Patient Outcome: No Injury Treatment: None (please see paper form. was brought down to floor by aid who was withher the whole time in bathroom. no trauma , no injuries . exam significant for tenderness on calves even with light touch and has edema. check US of LE to r/o DVt. no tenderness over hips, knees, long bones or ankles .) Vital Signs: Vital Signs Temperature 98 F 12/23/18 21:52 Pulse Rate 88 03/09/19 21:52 Respiratory Rate 18 12/23/18 21:52 Blood Pressure 112/66 12/23/18 21:52 O2 Sat by Pulse Oximetry (%) 98 12/23/18 21:00 LOC Post-Fall: Unchanged Identify factors for HIGH RISK for Head Injury: Pt on anticoagulant
--- NOTE | 2018-12-24 17:35 | PN ---
Progress Note (short form) - Note Progress Note: Subjective: No fever or chills. No WEBER. no SOB. pain in calves Objective: Vital Signs: Last Vital Signs Temp Pulse Resp BP Pulse Ox 98.4 F 91 H 20 100/60 98 12/24/18 15:00 12/24/18 15:00 12/24/18 15:00 12/24/18 15:00 12/23/18 21:00 Physical Exam: NAD, awake. CV: irreg irreg Lungs: decreased breath sounds at bases Ext : 1+ edema , No erythema. tenderness in calves even to light touch of skin Abd: soft, ND, NL BS , minimal TTP in all quadrants. ASSESSMENT AND PLAN: 88 y/o lady with h/o Afib (not on AC due to hematuria), CHF,severe pulmonary hypertension, CAD, HTN, COPD on 2 L of home O2 , she resented with SOb and chest tightness. She was found to have acute CHF exacerbation 1- Acute on chronic diastolic heart failure: - cont IV lasix.possible switch to pO lasix soon . - cont atenolol and spironolactone 2- Chest pain, EKG with no change. slight increase in trop - cont atenolol 3- h/o HTN: cont ramipril cont atenolol 4- UTI: with ESBL -ertapenem day 5. 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 - will refer to heme as out pt 7- calf pain : check US Dispo HLOC Visit type - Emergency Visit Emergency Visit: Yes ED Registration Date: 12/19/18 Care time: The patient presented to the Emergency Department on the above date and was hospitalized for further evaluation of their emergent condition. - New Patient This patient is new to me today: No - Critical Care Critical Care patient: No
[2018-12-24] MEDS: ATORVASTATIN CA 20 MG TABLET (FP) PO SCH (21:28)
[2018-12-25 10:28] LABS: HEMATOCRIT 33.6 % (32.4-45.2); HEMOGLOBIN 10.2 GM/dL (10.7-15.3); MCH 22.2 pg (25.7-33.7); MCHC 30.3 g/dl (32.0-36.0); MEAN CELL VOLUME 73.2 fl (80-96); MEAN PLT VOLUME 9.8 fl (7.5-11.1); PLATELET COUNT 109 K/MM3 (134-434); RBC 4.59 M/mm3 (3.60-5.2); RDW 18.4 % (11.6-15.6); WHITE BLOOD COUNT 4.1 K/mm3 (4.0-10.0)
[2018-12-25] MEDS ORDERED: PT OWN MED DRAWER 7, Y5N ONE (10:33)
[2018-12-25] MEDS: RAMIPRIL 2.5 MG CAPSULE (FP) PO SCH (10:40)
[2018-12-25] MEDS: FUROSEMIDE 40 MG/4 ML INJECTABLE VIAL IVPUSH SCH (10:40)
[2018-12-25] MEDS: ERTAPENEM SODIUM 1 GM in SODIUM CHLORIDE 50 ML IVPB SCH (10:40)
[2018-12-25] MEDS: SPIRONOLACTONE 25 MG TABLET (FP) PO SCH (10:41)
[2018-12-25] MEDS: ATENOLOL 50 MG TABLET (FP) PO SCH (10:41)
[2018-12-25] MEDS: ESCITALOPRAM OXALATE 10 MG TABLET (FP) PO SCH (10:41)
[2018-12-25] MEDS: ASPIRIN COATED 81 MG TABLET.EC PO SCH (10:41)
[2018-12-25] MEDS: BUDESONIDE/FORMETEROL FUMARATE 160/4.5 mcg INHALER IH SCH (10:43)
--- NOTE | 2018-12-25 11:00 | PN ---
Progress Note, Physician Chief Complaint: sob, cp History of Present Illness: denies sob. denies cp--says stomach hurts when urinates. no palpit, syncope - Current Medication List Current Medications: Active Medications Acetaminophen (Tylenol -) 650 mg PO Q6H PRN PRN Reason: FEVER Albuterol/Ipratropium (Duoneb -) 1 amp NEB Q6H PRN PRN Reason: SHORTNESS OF BREATH Aspirin (Ecotrin -) 81 mg PO DAILY [facility] Last Admin: 12/25/18 10:41 Dose: 81 mg Atenolol (Tenormin -) 50 mg PO DAILY [facility] Last Admin: 12/25/18 10:41 Dose: 50 mg Atorvastatin Calcium (Lipitor -) 20 mg PO HS [facility] Last Admin: 12/24/18 21:28 Dose: 20 mg Budesonide/Formoterol Fumarate (Symbicort 160/4.5mcg -) 1 puff IH BID [facility] Last Admin: 12/25/18 10:43 Dose: 1 puff Escitalopram Oxalate (Lexapro -) 10 mg PO DAILY [facility] Last Admin: 12/25/18 10:41 Dose: 10 mg Furosemide (Lasix Injection -) 40 mg IVPUSH DAILY [facility] Last Admin: 12/25/18 10:40 Dose: 40 mg Ramipril (Altace -) 2.5 mg PO DAILY [facility] Last Admin: 12/25/18 10:40 Dose: 2.5 mg Spironolactone (Aldactone -) 25 mg PO DAILY [facility] Last Admin: 12/25/18 10:41 Dose: 25 mg - Objective Vital Signs: Vital Signs Temperature 84 F L 12/25/18 06:00 Pulse Rate 84 12/25/18 06:00 Respiratory Rate 20 12/25/18 06:00 Blood Pressure 124/66 12/25/18 06:00 O2 Sat by Pulse Oximetry (%) 95 12/24/18 21:00 Constitutional: Yes: Well Nourished, No Distress, Calm Cardiovascular: Yes: Regular Rate and Rhythm, JVD, S1. No: Gallop, Murmur Respiratory: Yes: Regular, Rales (fine rales bases). No: Accessory Muscle Use, Wheezes Extremities: No: Cold Edema: No Neurological: Yes: Alert. No: Seizure Psychiatric: No: Agitated Labs: CBC, BMP 12/25/18 10:00 INR, PTT INR 1.35 (0.83-1.09) H 12/19/18 12:45 Assessment/Plan Echo 05/03: nl LVEF. mild RVE, mild-mod RV hypo. L/NEENA. mod MR/TR. RVSP at least 88 mmHg Echo 03/2017: Mild conc lvh. nl lv/rv size/fn, mod ronnie, mod mr, mod tr, rvsp 40- 50 EKG: afib rate okay, PVC, no ischemic changes CXR mild congestive changes Echo 07/2018 nl LV function, LA mod/severely dilated. RA mod dilated. Mod MR. Mod TR. RVSP elevated at 74 mmHG. Assessment/Plan 81F h/o afib, CHF, COPD (on home O2 2L), HTN, pulm HTN, hematuria s/p b/l perc nephrostomy sent from [place] for chest tightness, shortness of breath, UTI. acute on chronic diastolic HF exacerbation, cor pulmonale with RV failure - on lasix 40 mg daily as outpatient - BNP >7800, c/w prior values - bedscale weights but consistently trending down. LE edema resolved and no more sob. suspect residual TR is due to pulm HTN and hi right sided pressures with superimposed TR, suspect basilar rales sec to chronic fibrotic changes-- continue lasix 40 mg IV daily - continue spironolactone - AF rate control as doing chest tightness - trop indeterminate range, flat trend--stable compared to prior values - EKG unchanged, less likely ACS - this has been present as part of her CHF symptomatology previously UTI - on IV abx, manage per primary afib: - HR control good, cont bb - holding eliquis for hx of severe hematuria, anemia. COPD - stable, manage per primary HLD - continue statin cad, NSTEMI, staph bacteremia 07/2018: -periop hypotension 08/11 during cysto, briefly on pressors. likely due to bacteremia, overdiuresis -trop 2.0 the following day, trended down, likely Type II [place] sec to hypoperfusion/sepsis (+/- underlying stable CAD). ECG 08/[address] depressions inferior leads, improved on 08/12 tracing--cannot exclude Type I [place] at time of events. -AC initially held for gross hematuria with large clots/hydronephrosis, was back on eliquis and now stopped again due to hematuria. -BB and afib HR control as doing -defer invasive CAD mgmt approach given poor functional status with competing mortality limitations from severe lung dz, low likelihood to improve prognosis, and risks > benefits (including bleeding, AIN)
[2018-12-25 11:14] LABS: ANION GAP 3 MMOL/L (8-16); BLOOD UREA NITROGEN 13 mg/dL (7-18); CALCIUM 9.1 mg/dL (8.5-10.1); CHLORIDE 98 mmol/L (98-107); CO2 41 mmol/L (21-32); CREATININE 0.7 mg/dL (0.55-1.3); GLUCOSE,RANDOM 162 mg/dL (74-106); POTASSIUM 4.4 mmol/L (3.5-5.1); SODIUM 142 mmol/L (136-145)
--- NOTE | 2018-12-25 14:23 | PN ---
Teaching Attending Note Name of Resident: Marco A Colon ATTENDING PHYSICIAN STATEMENT I saw and evaluated the patient. I reviewed the resident's note and discussed the case with the resident. I agree with the resident's findings and plan as documented. SUBJECTIVE: no SOB , no fever or chills. has chronic WEBER , which has not changed per her. no SOB, no PC . feels tired OBJECTIVE: NAD, looks tired, and spoke most of the time with her eyes closed, then woke up and back to her base line CV: irreg irreg Lungs: decreased breath sounds at bases Ext: trace edema on posterior calves , No erythema. Neuro" EOMI, rond equal pupils, no facial droop. tongue at mid line. Strength 5 / 5inupper and lower extremities proximally and distally. sensation mann light touch NL. nose to finger nL ASSESSMENT AND PLAN: 88 y/o lady with h/o Afib (not on AC due to hematuria), CHF,severe pulmonary hypertension, CAD, HTN, COPD on 2 L of home O2 , she resented with SOb and chest tightness. She was found to have acute CHF exacerbation 1- Acute on chronic diastolic heart failure: - case was d/dw dr. Mendez by Dr. Colon, Recs to switch to po lasix . - cont atenolol and spironolactone 2- Chest pain, EKG with no change. 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 - will refer to heme as out pt 7- calf pain : cno DVT Dispo : Dc back to [place] . f/u with blood work BMP after dc
[2018-12-25 14:35] VITALS: TEMP 98.6
[2018-12-25] MEDS ORDERED: predniSONE 10 MG TABLET (UD) PO ONE (15:12)
--- NOTE | 2018-12-25 15:39 | DS ---
Physical Exam: SUBJECTIVE: Patient seen and examined at bedside. No acute events overnight. OBJECTIVE: Vital Signs Period Temp Pulse Resp BP Sys/Garza Pulse Ox Last 24 Hr 84 F-98.6 F 62-94 18-20 100-141/56-71 95 PHYSICAL EXAM GENERAL: NAD HEAD: NC/AT EYES: EOMI Sclera Clear ENT: MMM. NECK: Trachea midline, full range of motion, supple. LUNGS: upper ordonez b/l w/ crackles. HEART: Irregularly irregular ABDOMEN: Nondistended nontender EXTREMITIES: 1+ pitting edema b/l. NEUROLOGICAL: Cranial nerves II through XII grossly intact. PSYCH: Normal mood, normal affect. SKIN: Warm, dry, normal turgor, no rashes or lesions noted LABS Laboratory Results - last 24 hr 12/25/18 12/25/18 10:00 10:00 WBC 4.1 RBC 4.59 Hgb 10.2 L Hct 33.6 MCV 73.2 L MCH 22.2 L MCHC 30.3 L RDW 18.4 H Plt Count 109 L MPV 9.8 Sodium 142 Potassium 4.4 Chloride 98 Carbon Dioxide 41 H Anion Gap 3 L BUN 13 Creatinine 0.7 Creat Clearance w eGFR > 60 Random Glucose 162 H Calcium 9.1 HOSPITAL COURSE: Date of Admission:12/19/18 Pt is an 88 y/o F from [facility] w/PMH of Afib (not on AC due to hematuria ), CHF, CAD, HTN, COPD (on 2L O2 at home) presented to [facility] from [place] for SOB secondary to CHF exacerbation. Pt's initial troponin was .10 at its zenith but trended down on repeats. Pt was given ASA 162 in ED. Pt was started on lasix 20 I.V and then 40 I.V daily. Pt was continued on her home atenolol and Spironolactone. Furthermore, pt was found to have 3+ leukocyte esterase and a + ESBL urine culture. Pt was started on ceftriaxone, eventually transitioning to ertapenem. Pt completed 5 days of ertapenem and was discharged back to [place] on home meds. Date of Discharge: 12/25/18 Minutes to complete discharge: 35 Discharge Summary Reason For Visit: UTI,CHF Current Active Problems CHF (congestive heart failure) (Acute) COPD (chronic obstructive pulmonary disease) (Acute) Chest tightness (Acute) Shortness of breath (Acute) Condition: Improved - Instructions Diet, Activity, Other Instructions: You presented to the hospital due to shortness of breath and chest tightness. you were found to have a worsening of your heart failure. Please continue to take your medications as prescribed. we added aspirin to your meds Please follow up with your primary care doctor this week. Please follow up with your community development specialist, Dr Mendez this week. A referral has been attached to your paper work. Please follow up with the blood doctor, Stefani Lucas for your anemia. 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 Please make sure that you repeat your blood work tomorrow 12/26/18 to check your potassium level. You are on medication that may cause low potassium levels. Please make sure to routinely monitor your blood electrolytes with your primary care doctor please return to the emergency department immediately if you begin to experience shortness of breath, chest pain, nausea/vomiting, or any other abnormal symptoms. Referrals: Lester Barrera MD [Primary Care Provider] - Gustavo Mendez MD [Staff Physician] - Paul Lucas MD [Staff Physician] - Disposition: ASSISTED FACILITY - Home Medications Comprehensive Discharge Medication List: Ambulatory Orders Atorvastatin Ca [Lipitor] 20 mg PO HS 04/16/18 Albuterol Sulfate [Proventil HFA Inhaler -] 1 inh PO Q4H PRN 06/20/18 Budesonide/Formeterol Fumarate [SYMBICORT 160/4.5mcg -] 2 inh PO BID 06/20/18 Spironolactone [Aldactone] 25 mg PO DAILY #2 tablet 09/11/18 predniSONE [Deltasone -] 5 mg PO DAILY #7 tablet 09/11/18 Escitalopram Oxalate [Lexapro -] 10 mg PO DAILY 10/06/18 Atenolol [Tenormin] 50 mg PO DAILY 11/09/18 Furosemide [Lasix -] 40 mg PO DAILY 12/20/18 Ramipril [Altace] 2.5 mg PO DAILY 12/20/18 Aspirin Coated [Ecotrin -] 81 mg PO DAILY tablet.ec 12/25/18 This patient is new to me today: No Emergency Visit: Yes ED Registration Date: 12/19/18 Care time: The patient presented to the Emergency Department on the above date and was hospitalized for further evaluation of their emergent condition. Critical Care patient: No - Discharge Referral Referred to [facility] No
[2018-12-25 17:13] VITALS: BP 118/72; PULSE 80
== END 2018-12-25 17:12 | DRG 292 ==
LOC: JER 11:58 → JERBED 14:33 → J4S 12-20 00:54 → J8W 12-22 23:18
PROVIDERS: ADMIT Internal Medicine; ATTEND Internal Medicine
DX: I11.0 Hypertensive heart disease with heart failure (principal); J96.10 Chronic respiratory failure, unspecified whether with hypoxia or hypercapnia; N39.0 Urinary tract infection, site not specified; I24.8 Other forms of acute ischemic heart disease; I27.29 Other secondary pulmonary hypertension; I50.33 Acute on chronic diastolic (congestive) heart failure; I48.91 Unspecified atrial fibrillation; I25.10 Atherosclerotic heart disease of native coronary artery without angina pectoris; J44.9 Chronic obstructive pulmonary disease, unspecified; K29.70 Gastritis, unspecified, without bleeding; E78.00 Pure hypercholesterolemia, unspecified; D86.9 Sarcoidosis, unspecified; D64.9 Anemia, unspecified; E87.6 Hypokalemia; F41.8 Other specified anxiety disorders; M79.669 Pain in unspecified lower leg; R42 Dizziness and giddiness; B96.20 Unspecified Escherichia coli [E. coli] as the cause of diseases classified elsewhere; W18.39XA Other fall on same level, initial encounter; Z99.81 Dependence on supplemental oxygen; Y92.230 Patient room in hospital as the place of occurrence of the external cause
CPT/HCPCS: 36415; 71045-TC-FY; 80048; 80053; 81003; 81015; 82550; 83735; 83880; 84100; 84484; 85025; 85027; 85610; 87086; 87186; 93005; 93010; 93970-TC; 94640; 97116-GP; 97161-GP; 99285-25

== ENCOUNTER 2018-12-28 10:02 | Inpatient (IN) | payer OTHER ==
[2018-12-28 11:12] VITALS: BMI 27.4
--- NOTE | 2018-12-28 11:24 | PDOC ---
History of Present Illness - General History Source: Patient, Group Home Records, Old Records Exam Limitations: Clinical Condition - History of Present Illness Initial Comments: HPI: 82 y/o female BIBEMS to [facility] from [facility] complaining of shortness of breath and hematuria. EMS reported to automobile drivers that pt felt better after receiving a couple of DuoNebs and Medrol by EMS prior to arrival. NE transfer form indicated pt's SPO2 was 62%; unknown if on oxygen therapy. At time of this interview, the pt was somnolent and would not participate in interview. Recent D/C on 25 December 2018 after 5 day course of Ertapenem for acute UTI, as well as SOB believed to be secondary to CHF. Medical Hx: - A fib (not on AC, taken off due to hematuria) - CHF - CAD - HTN - COPD (on 2L O2) - Ureteral stent placement BIBA - Beta Thalassemia Minor <Neno Doe - Last Filed: 12/28/18 18:38> <Osiris Finch - Last Filed: 12/28/18 19:01> - General Chief Complaint: Respiratory Stated Complaint: Respiratory Distress Time Seen by Provider: 12/28/18 11:11 Past History - Past Medical History Anemia: Yes (PERNICIOUS) Asthma: (HX RESPIRATORY FAILURE) Cancer: No Cardiac Disorders: Yes (AF, CAD) CVA: No COPD: Yes CHF: Yes Dementia: No Diabetes: No GI Disorders: Yes (GASTRITIS) Disorders: Yes (HX KIDNEY FAILURE,UTI. nephrostomy tube) HTN: Yes Hypercholesterolemia: Yes Liver Disease: No Psychiatric Problems: Yes (ANXIETY.) Seizures: No Thyroid Disease: No - Surgical History Abdominal Surgery: Yes (abdominal) Appendectomy: No Cardiac Surgery: No Cholecystectomy: Yes Lung Surgery: No (PT DENIES) Neurologic Surgery: No Orthopedic Surgery: Yes (cervical spine w/hardware) - Immunization History Immunization Up to Date: No - Suicide/Smoking/Psychosocial Hx Smoking Status: No Smoking History: Smoker current status UNK Years of Tobacco Use: 0 Have you smoked in the past 12 months: No Number of Cigarettes Smoked Daily: 0 Hx Alcohol Use: No Drug/Substance Use Hx: No Substance Use Type: None Hx Substance Use Treatment: No <Neno Doe - Last Filed: 12/28/18 18:38> <Osiris Finch - Last Filed: 12/28/18 19:01> - Past Medical History Allergies/Adverse Reactions: Allergies Allergy/AdvReac Type Severity Reaction Status Date / Time levofloxacin [From Levaquin] Allergy Intermediate Itching Verified 12/28/18 11: 13 Home Medications: Ambulatory Orders Atorvastatin Ca [Lipitor] 20 mg PO HS 04/16/18 Albuterol Sulfate [Proventil HFA Inhaler -] 1 inh PO Q4H PRN 06/20/18 Budesonide/Formeterol Fumarate [SYMBICORT 160/4.5mcg -] 2 inh PO BID 06/20/18 Spironolactone [Aldactone] 25 mg PO DAILY #2 tablet 09/11/18 predniSONE [Deltasone -] 5 mg PO DAILY #7 tablet 09/11/18 Escitalopram Oxalate [Lexapro -] 10 mg PO DAILY 10/06/18 Atenolol [Tenormin] 50 mg PO DAILY 11/09/18 Furosemide [Lasix -] 40 mg PO DAILY 12/20/18 Ramipril [Altace] 2.5 mg PO DAILY 12/20/18 Aspirin Coated [Ecotrin -] 81 mg PO DAILY tablet.ec 12/25/18 Review of Systems - Review of Systems Able to Perform ROS?: No (Pt condition) <Neno Doe - Last Filed: 12/28/18 18:38> *Physical Exam - Vital Signs Last Vital Signs Temp Pulse Resp BP Pulse Ox 98.2 F 56 L 26 H 114/77 96 12/28/18 10:25 12/28/18 10:25 12/28/18 10:25 12/28/18 10:25 12/28/18 10:25 - Physical Exam Comments: Constitutional: Elderly adult female in no obvious discomfort. Found semi- fowlers on hospital bed. Somnolent but mildly arousable to voice. Unwilling/ unable to answer questions. Head: Normocephalic. No obvious external signs of trauma. Neck: Supple, trachea is midline. Cardiovascular / Chest: Irregularly irregular rate and rhythm. No murmur, rubs , clicks, or gallops. Peripheral pulses: radial pulses full. Respiratory: Tachypneic with shallow respirations. Equal chest rise and fall. Decreased breath sounds with trace wheezing diffusely. No stridor, rhonchi, or rales. Gastrointestinal: abdomen is soft, non-tender, non-distended. Neuro: Alert to verbal. Withdrawals locally to pain in all four extremities. Skin: Warm, dry, and intact. No bruising, rashes, or other lesions. MSK: No obvious deformities. Trace pretibial edema. <Neno Doe - Last Filed: 12/28/18 18:38> - Vital Signs Last Vital Signs Temp Pulse Resp BP Pulse Ox 97.7 F 80 20 115/62 96 12/28/18 15:50 12/28/18 15:50 12/28/18 15:50 12/28/18 15:50 12/28/18 11:43 <Osiris Finch - Last Filed: 12/28/18 19:01> Moderate Sedation - Procedure Monitoring Vital Signs: Procedure Monitoring Vital Signs Temperature 98.2 F 12/28/18 10:25 Pulse Rate 56 L 12/28/18 10:25 Respiratory Rate 26 H 12/28/18 10:25 Blood Pressure 114/77 12/28/18 10:25 O2 Sat by Pulse Oximetry (%) 96 12/28/18 10:25 <Neno Doe - Last Filed: 12/28/18 18:38> - Procedure Monitoring Vital Signs: Procedure Monitoring Vital Signs Temperature 97.7 F 12/28/18 15:50 Pulse Rate 80 12/28/18 15:50 Respiratory Rate 20 12/28/18 15:50 Blood Pressure 115/62 12/28/18 15:50 O2 Sat by Pulse Oximetry (%) 96 12/28/18 11:43 <Osiris Finch - Last Filed: 12/28/18 19:01> ED Treatment Course - LABORATORY CBC & Chemistry Diagram: 12/28/18 12:26 12/28/18 11:44 <Neno Doe - Last Filed: 12/28/18 18:38> - LABORATORY CBC & Chemistry Diagram: 12/28/18 12:26 12/28/18 11:44 - ADDITIONAL ORDERS Additional order review: Laboratory Results 12/28/18 12/28/18 12/28/18 15:35 12:39 12:38 PT with INR 13.70 H INR 1.16 H PTT (Actin FS) Anticoagulation Therapy Puncture Site Patient Temperature ABG pH ABG pCO2 at Pt Temp ABG pO2 at Pt Temp ABG HCO3 ABG O2 Sat (Measured) ABG O2 Content ABG Base Excess Junior Test Carboxyhemoglobin Methemoglobin O2 Delivery Device Oxygen Flow Rate Vent Mode Vent Rate Mechanical Rate PEEP Pressure Support Vent Sodium Potassium Chloride Carbon Dioxide Anion Gap BUN Creatinine Creat Clearance w eGFR POC Glucometer 118 Random Glucose Lactic Acid 1.2 Calcium Total Bilirubin AST ALT Alkaline Phosphatase Ammonia Creatine Kinase Troponin I Total Protein Albumin TSH Urine Color Urine Appearance Urine pH Ur Specific [place] Urine Protein Urine Glucose (UA) Urine Ketones Urine Blood Urine Nitrite Urine Bilirubin Urine Urobilinogen Ur Leukocyte Esterase Urine WBC (Auto) Urine RBC (Auto) Urine Bacteria 12/28/18 12/28/18 12/28/18 12:26 12:26 12:05 PT with INR INR PTT (Actin FS) 31.1 Anticoagulation Therapy Cancelled Puncture Site Cancelled Patient Temperature Cancelled ABG pH Cancelled ABG pCO2 at Pt Temp Cancelled ABG pO2 at Pt Temp Cancelled ABG HCO3 Cancelled ABG O2 Sat (Measured) Cancelled ABG O2 Content Cancelled ABG Base Excess Cancelled Junior Test Cancelled Carboxyhemoglobin Methemoglobin O2 Delivery Device Cancelled Oxygen Flow Rate Cancelled Vent Mode Cancelled Vent Rate Cancelled Mechanical Rate Cancelled PEEP Cancelled Pressure Support Vent Cancelled Sodium Potassium Chloride Carbon Dioxide Anion Gap BUN Creatinine Creat Clearance w eGFR POC Glucometer Random Glucose Lactic Acid Calcium Total Bilirubin AST ALT Alkaline Phosphatase Ammonia 27.80 Creatine Kinase Troponin I Total Protein Albumin TSH Urine Color Urine Appearance Urine pH Ur Specific [place] Urine Protein Urine Glucose (UA) Urine Ketones Urine Blood Urine Nitrite Urine Bilirubin Urine Urobilinogen Ur Leukocyte Esterase Urine WBC (Auto) Urine RBC (Auto) Urine Bacteria 12/28/18 12/28/18 12/28/18 11:46 11:45 11:45 PT with INR INR PTT (Actin FS) Anticoagulation Therapy Puncture Site Left radial Patient Temperature ABG pH 7.41 ABG pCO2 at Pt Temp 62.6 H ABG pO2 at Pt Temp 73.7 L ABG HCO3 38.6 H ABG O2 Sat (Measured) 92.7 L ABG O2 Content 14.1 L ABG Base Excess 12.0 H Junior Test Positive Carboxyhemoglobin 1.2 Methemoglobin 0.0 O2 Delivery Device Oxygen Flow Rate Yes Vent Mode Vent Rate Mechanical Rate PEEP Pressure Support Vent Sodium Potassium Chloride Carbon Dioxide Anion Gap BUN Creatinine Creat Clearance w eGFR POC Glucometer Random Glucose Lactic Acid Calcium Total Bilirubin AST ALT Alkaline Phosphatase Ammonia Creatine Kinase Troponin I Total Protein Albumin TSH 2.55 Urine Color Red Urine Appearance Cloudy Urine pH 6.0 Ur Specific [place] 1.014 Urine Protein 2+ H Urine Glucose (UA) Negative Urine Ketones Negative Urine Blood 3+ H Urine Nitrite Negative Urine Bilirubin Negative Urine Urobilinogen 2.0 H Ur Leukocyte Esterase 3+ H Urine WBC (Auto) 290 Urine RBC (Auto) 974 Urine Bacteria Rare 12/28/18 12/28/18 11:45 11:44 PT with INR Cancelled INR Cancelled PTT (Actin FS) Anticoagulation Therapy Puncture Site Patient Temperature ABG pH ABG pCO2 at Pt Temp ABG pO2 at Pt Temp ABG HCO3 ABG O2 Sat (Measured) ABG O2 Content ABG Base Excess Junior Test Carboxyhemoglobin Methemoglobin O2 Delivery Device Oxygen Flow Rate Vent Mode Vent Rate Mechanical Rate PEEP Pressure Support Vent Sodium 136 Potassium 3.5 Chloride 94 L Carbon Dioxide 37 H Anion Gap 5 L BUN 25 H Creatinine 0.8 Creat Clearance w eGFR > 60 POC Glucometer Random Glucose 116 H Lactic Acid Calcium 9.3 Total Bilirubin 0.8 AST 20 ALT 19 Alkaline Phosphatase 79 Ammonia Creatine Kinase 38 Troponin I 0.09 H Total Protein 7.3 Albumin 3.1 L TSH Urine Color Urine Appearance Urine pH Ur Specific [place] Urine Protein Urine Glucose (UA) Urine Ketones Urine Blood Urine Nitrite Urine Bilirubin Urine Urobilinogen Ur Leukocyte Esterase Urine WBC (Auto) Urine RBC (Auto) Urine Bacteria 12/28/18 12/28/18 12:38 12:26 RBC 4.78 MCV 70.9 L MCHC 30.8 L RDW 17.8 H MPV 9.2 Neutrophils % 75.8 Lymphocytes % 19.7 Monocytes % 3.4 L Eosinophils % 0.4 Basophils % 0.7 POC Glucometer 118 - Medications Given in the ED: ED Medications Discontinued Medications Generic Name Dose Route Start Last Admin Trade Name Freq PRN Reason Stop Dose Admin Acetaminophen 1,000 mg 12/28/18 17:58 12/28/18 18:33 Ofirmev Injection - IVPB 12/28/18 17:59 1,000 mg ONCE ONE Administration Albuterol/Ipratropium 3 amp 12/28/18 11:52 12/28/18 12:40 Duoneb - NEB 12/28/18 11:53 3 amp ONCE ONE Administration Ceftriaxone Sodium 1,000 mg/ 50 mls @ 100 mls/hr 12/28/18 17:00 12/28/18 18: 52 Dextrose IVPB 12/28/18 17:29 Not Given ONCE ONE Ertapenem 1 gm/ Sodium 50 mls @ 100 mls/hr 12/28/18 17:04 12/28/18 17:45 Chloride IVPB 12/28/18 17:33 100 mls/hr ONCE ONE Administration <JosetteOsiris Jones - Last Filed: 12/28/18 19:01> Medical Decision Making - Medical Decision Making *Reviewed vital signs, nursing notes, and prior visit documentation (if available). Mild leukopenia. ABG revealed elevated CO2 with elevated bicarb. Suspect respiratory acidosis with metabolic compensation. Low suspicion for respiratory as source of AMS. Troponin mildly elevated. At baseline established during last admission. Low suspicion for ACS. No ischemic changes noted on EKG. UA revealed pyuria, leukocyte esterase, and hematuria. Possible AMS secondary to persistent cystitis. 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 Will restart ertapenem antibiotic therapy. 16:18 Microblog sent to [facility] service for admission. Awaiting call back. 17:00 Telephone consultation with PERSONNEL TECHNICIAN Yakelin Crespo. Verbally appraised of the pts HPI, ED course, and current plan of management. Will evaluate the pt at bedside to further decide dispo. 18:01 Pt reassessed. Now more alert. Pt is alert and oriented. Unable to recall how she was brought to the hospital. Believes she was dizzy this morning. Now complaining of bifrontal headache. No drift in arms or legs. Pupils 3mm and PERRL. Will order Tylenol for headache. <Neno Doe - Last Filed: 12/28/18 18:38> - Medical Decision Making pt admitting to Dr Ramos service for continued management treating as UTI prior ESBL, broad coverage. now more alert and verbal, changed mental status. does not recall events, amnesic. treat as syncope/AMS vs delirium from UTI mild trop elevation, lower than prior results. trend. tele monitor, serial trops/medical management and abx 12/28/18 18:58 03/14/19 19:00 12/28/18 19:01 <Osiris Finch - Last Filed: 12/28/18 19:01> *DC/Admit/Observation/Transfer - Discharge Dispostion Decision to Admit order: Yes <Neno Doe - Last Filed: 12/28/18 18:38> - Discharge Dispostion Decision to Admit order: Yes Decision to Admit order Date/Time: 12/28/18 18:58 <Osiris Finch - Last Filed: 12/28/18 19:01> Diagnosis at time of Disposition: Shortness of breath at rest Altered mental status Qualifiers: Altered mental status type: somnolence Qualified Code(s): R40.0 - Somnolence COPD (chronic obstructive pulmonary disease) Qualifiers: COPD type: unspecified COPD Qualified Code(s): J44.9 - Chronic obstructive pulmonary disease, unspecified - Discharge Dispostion Condition at time of disposition: Stable - Referrals Referrals: Lester Barrera MD [Primary Care Provider] - - Patient Instructions - Post Discharge Activity
[2018-12-28] MEDS ORDERED: ALBUTEROL SO4 2.5/IPRATROPIUM 0.5 INH SOL 3 ML VIAL.NEB. NEB ONE ×2 (11:52→12:42)
[2018-12-28 12:22] LABS: ARTERIAL BLD GAS O2 SATURATION 92.7 % (95-98); ARTERIAL BLOOD GAS PCO2 62.6 mmHg (35-45); ARTERIAL BLOOD GAS PO2 73.7 mmHg (80-105); ARTERIAL BLOOD GAS pH 7.41 (7.35-7.45); CARBOXYHEMOGLOBIN 1.2 % (0-2)
[2018-12-28 12:34] LABS: ALLENS TEST POSITIVE
--- NOTE | 2018-12-28 12:39 | PDOC ---
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 Patient was recently discharged from [facility] 12/25 at which time he was admitted for ESBL UTI and CHF. 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 No smoking. No alcohol. No illicit drugs. Surgical history: Cervical spine surgery w/ hardware; Lung Surgery; Cholecystectomy; Nephrostomy tube placement (bilateral). PMD: Dr. Barrera - Physicial Exam PE: 12/28/18 16:59 +Sleeping on exam, but arousable, withdrawal to pain. NAD. PERRL, EOMI, MMM, + pale conjunctiva, anicteric; +No dentition. neck supple. +Faint wheezing, no respiratory distress, +Irregularly irregular, +Holo Systolic murmur, abdomen soft nontender. TAVARES x4,. No peripheral edema. normal color for ethnicity, WWP. 12/28/18 17:00 - Medical Decision Making 12/28/18 12:39 I, Osiris Finch MD, attest that this document has been prepared under my direction and personally reviewed by me in its entirety. I further attest, that it accurately reflects all work, treatment, procedures and medical decision -making performed by me. See HPI for details DDx infection, UTI, pneumonia, metabolic derangements, electrolyte abnormalities , SEISMIC PROSPECTING SUPERVISOR pathology, delirium, CVA, ACS, arrhythmia, CO2 narcosis. Vital signs reviewed, wnl. no hypoxia or tachycardia. rectal temp normal. nontoxic appearing. arousable to pain. Prior notes reviewed, including admissions, discharges and consultations. laboratory results and imaging reviewed, basic labs and lytes wnl, notable for baseline anemia, mild leukopenia, with UTI as possible etiology. tsh normal lactic normal, reassuring. ABG with normal PH, old compensated CO2 elevation. UA_+RBC and WBCs copiously with +bacteria. CXR_cardiomegaly; no infiltrate, Cardiac panel_+trop to 0.09, similar to prior trop elevations, will trend, tele monitor EKG Atrial fibrillation at 74 bpm, no interval abnormalities, narrow QRS, ST and T wave segments and morphology normal. Nonspecific T wave abnormalities with TWI/flattening in III, AVF - similar to prior EKG CT head_no acute SEISMIC PROSPECTING SUPERVISOR pathology, microvascular ischemic changes and atrophy. ED course - IV abx for UTI, prior h/o ESBL. treat with ertapenem Prior microbiology resulted in Escherichia coli, ESBL, Klebsiella so we will tailor to prior sensitivities and give broad-spectrum and narrow down by repeat urine cultures. admit for medical management. UTI as etiology for AMS/infection without clear fevers or mounting response), 12/28/18 17:01 12/28/18 17:03 Heart Score/ECG Review #1 ECG reviewed & interpreted by me at: 11:55 (atrial fibrilllation) General ECG Interpretation: Normal Rate Compared to previous ECG there are: No significant change 12/28/18 12:42 EKG Atrial fibrillation at 74 bpm, no interval abnormalities, narrow QRS, ST and T wave segments and morphology normal. Nonspecific T wave abnormalities with TWI/flattening in III, AVF - similar to prior EKG - ECG Intrepretation Rhythm: Irregularly Irregular
[2018-12-28 12:56] LABS: BASO % 0.7 % (0-2.0); EOS % 0.4 % (0-4.5); HEMATOCRIT 33.8 % (32.4-45.2); HEMOGLOBIN 10.4 GM/dL (10.7-15.3); LYMPH % 19.7 % (8-40); MCH 21.9 pg (25.7-33.7); MCHC 30.8 g/dl (32.0-36.0); MEAN CELL VOLUME 70.9 fl (80-96); MEAN PLT VOLUME 9.2 fl (7.5-11.1); MONO % 3.4 % (3.8-10.2); NEUT % 75.8 % (42.8-82.8); PLATELET COUNT 143 K/MM3 (134-434); RBC 4.78 M/mm3 (3.60-5.2); RDW 17.8 % (11.6-15.6); WHITE BLOOD COUNT 3.5 K/mm3 (4.0-10.0)
[2018-12-28 13:55] LABS: ALBUMIN 3.1 g/dl (3.4-5.0); ALK PHOS 79 U/L (45-117); ANION GAP 5 MMOL/L (8-16); BILIRUBIN,TOTAL 0.8 mg/dL (0.2-1); BLOOD UREA NITROGEN 25 mg/dL (7-18); CALCIUM 9.3 mg/dL (8.5-10.1); CHLORIDE 94 mmol/L (98-107); CO2 37 mmol/L (21-32); CREATININE 0.8 mg/dL (0.55-1.3); GLUCOSE,RANDOM 116 mg/dL (74-106); POTASSIUM 3.5 mmol/L (3.5-5.1); SGOT/AST 20 U/L (15-37); SGPT/ALT 19 U/L (13-61); SODIUM 136 mmol/L (136-145); TOT PROT 7.3 g/dl (6.4-8.2)
[2018-12-28 15:07] LABS: ANISOCYTOSIS 1+; MACROCYTOSIS 1+; OVALOCYTE 1+; PLATELET ESTIMATE DECREASED; TARGET CELLS 1+
--- NOTE | 2018-12-28 15:34 | EKG ---
Test Reason : Blood Pressure : / mmHG Vent. Rate : 081 BPM Atrial Rate : 312 BPM P-R Int : 000 ms QRS Dur : 084 ms QT Int : 410 ms P-R-T Axes : 000 -08 -11 degrees QTc Int : 476 ms ATRIAL FIBRILLATION ABNORMAL ECG WHEN COMPARED WITH ECG OF 28-DEC-2018 11:53, ATRIAL FIBRILLATION HAS REPLACED ATRIAL FLUTTER Confirmed by ROGELIO PORTER MD ([id number]) on 12/28/2018 3:34:08 PM Referred By: Confirmed By:ROGELIO PORTER MD
[2018-12-28 16:24] LABS: URINE APPEARANCE CLOUDY; URINE BILIRUBIN NEGATIVE (<2.0 mg/dL); URINE COLOR RED; URINE GLUCOSE (UA) NEGATIVE (NEGATIVE); URINE KETONE NEGATIVE (NEGATIVE); URINE LEUK ESTERASE 3+ (NEGATIVE); URINE NITRITE NEGATIVE (NEGATIVE); URINE PROTEIN 2+ (NEGATIVE)
[2018-12-28 16:38] LABS: URINE BACTERIA RARE /hpf (NONE SEEN)
[2018-12-28 16:44] LABS: INR 1.16 (0.83-1.09); PROTHROMBIN TIME (PATIENT) 13.7 SEC (9.7-13.0)
[2018-12-28] MEDS ORDERED: CEFTRIAXONE 1,000 MG in DEXTROSE 5%-WATER - 50 ML IVPB ONE (17:00)
[2018-12-28] MEDS ORDERED: ERTAPENEM SODIUM 1 GM in SODIUM CHLORIDE 50 ML IVPB ONE (17:04)
[2018-12-28] MEDS ORDERED: ERTAPENEM SODIUM 1 GM VIAL ONE (17:24)
[2018-12-28] MEDS ORDERED: ACETAMINOPHEN 1000 MG/100 ML VIAL (NON FORMULARY) IVPB ONE (17:58)
[2018-12-28] MEDS ORDERED: ACETAMINOPHEN INJECTION 100 ML IVPB ONE (18:25)
[2018-12-28] MEDS ORDERED: ALBUTEROL SO4 8 GM HFA INHALER IH PRN (21:30)
--- NOTE | 2018-12-28 21:41 | HP ---
Admitting History and Physical - Admission Chief Complaint: Shortness of breath History of Present Illness: 82 y.o. female with a h/o pernicious anemia, heart murmur, COPD, HTN, CHF, GERD , afib, hyperlipidemia and sarcoidosis who presents to the ED c/o SOB since this morning. Pt is a poor historian and was recently discharged on 12/25 after being admitted for SOB secondary to CHF exacerbation. Pt's initial troponin was .10 at its zenith but trended down on repeats. Pt was given ASA 162 in ED. Pt was started on lasix 20 I.V and then 40 I.V daily. Pt was continued on her home atenolol and Spironolactone. Furthermore, pt was found to have 3+ leukocyte esterase and a + ESBL urine culture. Pt was started on ceftriaxone, eventually transitioning to ertapenem. Pt completed 5 days of ertapenem and was discharged back to [place] on home meds. Today, as per EMS report she was transported from [place] to [facility] for evaluation of hypoxia (O2 sat mid 60%). In ED: Vitals were stable T 98.2, HR 56bpm, RR 26, BP 114/77, O 2 sat 96% Pt given Rocephin 1g and Ertapenem 1gm in ED, along with duonebs. 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: Vertigo (intermittent) Cardiovascular: Yes: AFIB, CHF, HTN, Hyperlipdemia, Pulmonary Hypertension, Other (Sarcoidosis) Pulmonary: Yes: Asthma, COPD Gastrointestinal: Yes: GERD Renal/: Yes: Hematuria Reproductive: Yes: Postmenopausal Psych: Yes: Depression Musculoskeletal: Yes: Osteoarthritis Additional Past Medical History: - A fib (not on AC, taken off due to hematuria) - CHF - CAD - HTN - COPD (on 2L O2) - Beta Thalassemia Minor - Past Surgical History Past Surgical History: Yes: Cholecystectomy, Hysterectomy Additional Past Surgical History: - Ureteral stent placement nephrostomy placement - Smoking History Smoking history: Smoker current status UNK Have you smoked in the past 12 months: No Aproximately how many cigarettes per day: 0 - Alcohol/Substance Use Hx Alcohol Use: No History of Substance Use: reports: None - Social History History of Recent Travel: No Home Medications - Allergies Allergies/Adverse Reactions: Allergies Allergy/AdvReac Type Severity Reaction Status Date / Time levofloxacin [From Levaquin] Allergy Intermediate Itching Verified 12/28/18 11: 13 - Home Medications Home Medications: Ambulatory Orders Atorvastatin Ca [Lipitor] 20 mg PO HS 04/16/18 Albuterol Sulfate [Proventil HFA Inhaler -] 1 inh PO Q4H PRN 06/20/18 Budesonide/Formeterol Fumarate [SYMBICORT 160/4.5mcg -] 2 inh PO BID 06/20/18 Spironolactone [Aldactone] 25 mg PO DAILY #2 tablet 09/11/18 predniSONE [Deltasone -] 5 mg PO DAILY #7 tablet 09/11/18 Escitalopram Oxalate [Lexapro -] 10 mg PO DAILY 10/06/18 Atenolol [Tenormin] 50 mg PO DAILY 11/09/18 Furosemide [Lasix -] 40 mg PO DAILY 12/20/18 Ramipril [Altace] 2.5 mg PO DAILY 12/20/18 Aspirin Coated [Ecotrin -] 81 mg PO DAILY tablet.ec 12/25/18 Family Disease History - Family Disease History Family Disease History: Heart Disease: Father, Mother, Other: Sister (Colon cancer) Review of Systems Unable to obtain ROS, reason: pt is lethargic and does Physical Examination Vital Signs: Vital Signs Temperature 97.7 F 12/28/18 15:50 Pulse Rate 80 12/28/18 15:50 Respiratory Rate 20 12/28/18 15:50 Blood Pressure 115/62 12/28/18 15:50 O2 Sat by Pulse Oximetry (%) 96 12/28/18 11:43 Constitutional: Yes: Other (somnolent) Eyes: Yes: Conjunctiva Clear, PERRL HENT: Yes: Atraumatic, Normocephalic Neck: Yes: Supple Cardiovascular: Yes: Pulse Irregular Respiratory: Yes: Regular, On Nasal O2 Gastrointestinal: Yes: Soft, Abdomen, Obese ...Rectal Exam: Yes: Deferred Breast(s): Yes: WNL Musculoskeletal: Yes: Joint Stiffness, Muscle Weakness Edema: No Peripheral Pulses WNL: Yes Peripheral Pulses: Left Radial: 2+, Right Radial: 2+, Left Doralis Pedis: 2+, Right Dorsalis Pedis: 2+ Integumentary: Yes: Venous Stasis Changes Neurological: Yes: Oriented, Weakness ...Motor Strength: LUE, LLE, RUE, RLE (pt lethargic, does not make any effort to awaken for provider) Psychiatric: Yes: Other (pt somnolent,unable to illicit verbal responses) Labs: CBC, BMP 12/28/18 12:26 12/28/18 11:44 Imaging - Results Chest X-ray: Report Reviewed (CXR 12/28/2018 Impression: CArdiomegaly and possible mild congestion) Cat Scan: Report Reviewed (Head CT 12-28-2018 Moderate atrophy. No gross evidence of a focal intracranial lesion or hemorrhage is seen. Read by Dr. Emmy Hendrix) EKG: Report Reviewed (EKG 12-28-2018 Afib 81bpm) Problem List - Problems (1) Altered mental status Assessment/Plan: serial neuro exam Code(s): R41.82 - ALTERED MENTAL STATUS, UNSPECIFIED Qualifiers: Altered mental status type: somnolence Qualified Code(s): R40.0 - Somnolence (2) COPD (chronic obstructive pulmonary disease) Assessment/Plan: duonebs QID PRN SOB BIPAP overnight hold pred 5mg, start solumedrol 40mg BID continue symbicort Code(s): J44.9 - CHRONIC OBSTRUCTIVE PULMONARY DISEASE, UNSPECIFIED Qualifiers: COPD type: unspecified COPD Qualified Code(s): J44.9 - Chronic obstructive pulmonary disease, unspecified (3) Depression Assessment/Plan: lexapro 10mg daily Code(s): F32.9 - MAJOR DEPRESSIVE DISORDER, SINGLE EPISODE, UNSPECIFIED Qualifiers: Depression Type: other depression Qualified Code(s): F32.89 - Other specified depressive episodes (4) Atrial fibrillation Assessment/Plan: ASA 81mg daily Atenolol 50mg daily Tele bed Code(s): I48.91 - UNSPECIFIED ATRIAL FIBRILLATION Qualifiers: Atrial fibrillation type: permanent Qualified Code(s): I48.2 - Chronic atrial fibrillation (5) Hypercholesterolemia Assessment/Plan: lipitor 20mg qhs cardiac diet Code(s): E78.00 - PURE HYPERCHOLESTEROLEMIA, UNSPECIFIED (6) CHF (congestive heart failure) Assessment/Plan: continue home dose of ramipril, aldactone and lasix Code(s): I50.9 - HEART FAILURE, UNSPECIFIED Qualifiers: Heart failure type: unspecified Heart failure chronicity: acute on chronic Qualified Code(s): I50.9 - Heart failure, unspecified Assessment/Plan DVT PPX: SCDs DISPO: transfer back to [place] once stabilized Visit type - Emergency Visit Emergency Visit: Yes ED Registration Date: 12/28/18 Care time: The patient presented to the Emergency Department on the above date and was hospitalized for further evaluation of their emergent condition. - New Patient This patient is new to me today: Yes Date on this admission: 12/28/18 - Critical Care Critical Care patient: No
[2018-12-28] MEDS ORDERED: FUROSEMIDE 40 MG/4 ML INJECTABLE VIAL IVPUSH ONE (21:45)
[2018-12-28] MEDS ORDERED: ALBUTEROL SO4 2.5/IPRATROPIUM 0.5 INH SOL 3 ML VIAL.NEB. NEB PRN (21:49)
[2018-12-28] MEDS ORDERED: BUDESONIDE/FORMETEROL FUMARATE 160/4.5 mcg INHALER IH SCH (22:00)
[2018-12-28] MEDS: methylPREDNISolone NA SUCC 40 MG/1 ML VIAL IVPUSH SCH (23:44)
[2018-12-28] MEDS: ATORVASTATIN CA 20 MG TABLET (FP) PO SCH (23:44)
[2018-12-29 06:35] LABS: HEMATOCRIT 33.2 % (32.4-45.2); MCH 21.6 pg (25.7-33.7); MCHC 30.3 g/dl (32.0-36.0); MEAN CELL VOLUME 71.2 fl (80-96); MEAN PLT VOLUME 9.3 fl (7.5-11.1); PLATELET COUNT 145 K/MM3 (134-434); RBC 4.66 M/mm3 (3.60-5.2); RDW 18.4 % (11.6-15.6)
[2018-12-29 07:10] LABS: ALBUMIN 2.8 g/dl (3.4-5.0); ALK PHOS 73 U/L (45-117); ANION GAP 6 MMOL/L (8-16); BILIRUBIN,TOTAL 0.6 mg/dL (0.2-1); BLOOD UREA NITROGEN 28 mg/dL (7-18); CALCIUM 8.9 mg/dL (8.5-10.1); CHLORIDE 95 mmol/L (98-107); CO2 38 mmol/L (21-32); CREATININE 0.8 mg/dL (0.55-1.3); GLUCOSE,RANDOM 141 mg/dL (74-106); MAGNESIUM 2.6 mg/dL (1.8-2.4); N-TERMINAL BNP 9969.5 pg/ml (5-450); POTASSIUM 3.8 mmol/L (3.5-5.1); SGOT/AST 15 U/L (15-37); SGPT/ALT 18 U/L (13-61); SODIUM 139 mmol/L (136-145); TOT PROT 6.9 g/dl (6.4-8.2)
[2018-12-29 07:22] LABS: WHITE BLOOD COUNT 1.8 K/mm3 (4.0-10.0)
--- NOTE | 2018-12-29 07:36 | PN ---
Teaching Attending Note Name of Resident: Marco A Colon ATTENDING PHYSICIAN STATEMENT I saw and evaluated the patient. I reviewed the resident's note and discussed the case with the resident. I agree with the resident's findings and plan as documented. SUBJECTIVE: Patient is a 82yo female with a h/o pernicious anemia, heart murmur, COPD, HTN , CHF, GERD, afib, hyperlipidemia and sarcoidosis who presents to the ED c/o having SOB. denies any fever or chills, no nausea or vomiting. Vital Signs Temperature 97.5 F L 12/29/18 06:00 Pulse Rate 81 12/29/18 06:00 Respiratory Rate 20 12/29/18 06:00 Blood Pressure 120/63 12/29/18 06:00 O2 Sat by Pulse Oximetry (%) 98 12/29/18 05:00 GE: Elderly adult female in no obvious discomfort. Head: Normocephalic. AT. Neck: Supple, trachea is midline. Respiratory: Decreased breath sounds with scattered wheeze . No stridor, rhonchi, or rales Cardiovascular: Irregularly irregular rate and rhythm. S1S2 positive ,no rubs, clicks, or gallops. Gastrointestinal: abdomen is soft, non-tender, non-distended. Neuro: CN 2-12 grossly intact Skin: Warm, dry, and intact. No bruising, rashes, or other lesions. Extremities: pulses are positive. CBCD WBC 1.8 K/mm3 (4.0-10.0) L* 12/29/18 05:30 RBC 4.66 M/mm3 (3.60-5.2) 12/29/18 05:30 Hgb 10.0 GM/dL (10.7-15.3) L 12/29/18 05:30 Hct 33.2 % (32.4-45.2) 12/29/18 05:30 MCV 71.2 fl (80-96) L 12/29/18 05:30 MCHC 30.3 g/dl (32.0-36.0) L 12/29/18 05:30 RDW 18.4 % (11.6-15.6) H 12/29/18 05:30 Plt Count 145 K/MM3 (134-434) 12/29/18 05:30 MPV 9.3 fl (7.5-11.1) 12/29/18 05:30 CMP Sodium 139 mmol/L (136-145) 12/29/18 05:30 Potassium 3.8 mmol/L (3.5-5.1) 12/29/18 05:30 Chloride 95 mmol/L (98-107) L 12/29/18 05:30 Carbon Dioxide 38 mmol/L (21-32) H 12/29/18 05:30 Anion Gap 6 MMOL/L (8-16) L 12/29/18 05:30 BUN 28 mg/dL (7-18) H 12/29/18 05:30 Creatinine 0.8 mg/dL (0.55-1.3) 12/29/18 05:30 Creat Clearance w eGFR 68.50 (>60) 12/29/18 05:30 Random Glucose 141 mg/dL (74-106) H 12/29/18 05:30 Calcium 8.9 mg/dL (8.5-10.1) 12/29/18 05:30 Total Bilirubin 0.6 mg/dL (0.2-1) 12/29/18 05:30 AST 15 U/L (15-37) 12/29/18 05:30 ALT 18 U/L (13-61) 12/29/18 05:30 Alkaline Phosphatase 73 U/L (45-117) 12/29/18 05:30 Total Protein 6.9 g/dl (6.4-8.2) 12/29/18 05:30 Albumin 2.8 g/dl (3.4-5.0) L 12/29/18 05:30 CARDIAC ENZYMES Creatine Kinase 38 U/L (26-192) 12/28/18 11:44 Troponin I 0.09 ng/ml (0.00-0.05) H 12/28/18 11:44 Current Medications Generic Name Dose Route Start Last Admin Trade Name Freq PRN Reason Stop Dose Admin Albuterol/Ipratropium 1 amp 12/28/18 21:49 Duoneb - NEB Q6H PRN SHORTNESS OF BREATH Aspirin 81 mg 12/29/18 10:00 Ecotrin - PO DAILY LISA Atenolol 50 mg 12/29/18 10:00 Tenormin - PO DAILY [facility] Atorvastatin Calcium 20 mg 12/28/18 22:00 12/28/18 23:44 Lipitor - PO Not Given [facility] Escitalopram Oxalate 10 mg 12/29/18 10:00 Lexapro - PO DAILY [facility] Furosemide 40 mg 12/29/18 10:00 Lasix - PO DAILY [facility] Methylprednisolone Sodium Succinate 40 mg 12/28/18 22:15 12/28/18 23:44 Solu-Medrol - IVPUSH 40 mg BID LISA Administration Pantoprazole Sodium 40 mg 12/29/18 10:00 Protonix Iv IVPUSH DAILY [facility] Ramipril 2.5 mg 12/29/18 14:00 Altace - PO DAILY [facility] Spironolactone 25 mg 12/29/18 10:00 Aldactone - PO DAILY [facility] Home Medications Medication Instructions Recorded Atorvastatin Ca [Lipitor] 20 mg PO HS 04/16/18 Albuterol Sulfate [Proventil HFA 1 inh PO Q4H PRN 06/20/18 Inhaler -] Budesonide/Formeterol Fumarate 2 inh PO BID 06/20/18 [SYMBICORT 160/4.5mcg -] Spironolactone [Aldactone] 25 mg PO DAILY #2 tablet 09/11/18 predniSONE [Deltasone -] 5 mg PO DAILY #7 tablet 09/11/18 Escitalopram Oxalate [Lexapro -] 10 mg PO DAILY 10/06/18 Atenolol [Tenormin] 50 mg PO DAILY 11/09/18 Furosemide [Lasix -] 40 mg PO DAILY 12/20/18 Ramipril [Altace] 2.5 mg PO DAILY 12/20/18 Aspirin Coated [Ecotrin -] 81 mg PO DAILY tablet.ec 12/25/18 Urine Test Results Urine Color Red 12/28/18 11:45 Urine Appearance Cloudy 12/28/18 11:45 Urine pH 6.0 (5.0-8.0) 12/28/18 11:45 Ur Specific [place] 1.014 (1.010-1.035) 12/28/18 11:45 Urine Protein 2+ (NEGATIVE) H 12/28/18 11:45 Urine Glucose (UA) Negative (NEGATIVE) 12/28/18 11:45 Urine Ketones Negative (NEGATIVE) 12/28/18 11:45 Urine Blood 3+ (NEGATIVE) H 12/28/18 11:45 Urine Nitrite Negative (NEGATIVE) 12/28/18 11:45 Urine Bilirubin Negative (<2.0 mg/dL) 12/28/18 11:45 Ur Leukocyte Esterase 3+ (NEGATIVE) H 12/28/18 11:45 Urine Bacteria Rare /hpf (NONE SEEN) 12/28/18 11:45 Laboratory Tests 12/19/18 12/20/18 12/28/18 17:37 06:00 11:44 Troponin I 0.09 H 0.08 H 0.09 H B-Natriuretic Peptide 12/29/18 05:30 Troponin I B-Natriuretic Peptide 9969.5 H Chest X-ray: Report Reviewed (CXR 12/28/2018 Impression: CArdiomegaly and pulmonary congestion. increased the interstitial markings.) Cat Scan: Report Reviewed (Head CT 12-28-2018 Moderate atrophy. No gross evidence of a focal intracranial lesion or hemorrhage is seen. Read by Dr. Emmy Hendrix) EKG: Report Reviewed (EKG 12-28-2018 Afib 81bpm) ASSESSMENT AND PLAN: Patient is a 82yo female with PMHx of pernicious anemia, heart murmur, COPD, HTN, CHF, GERD, afib, hyperlipidemia and sarcoidosis who presents to the ED c/o SOB ,and was admitted for having hypoxia (O2 sat mid 60%). # Acute on chronic diastolic heart failure continue ramipril, aldactone and lasix IV, with BNP of 9k, # Acute Leukopenia #Acute on chronic hypoxic respiratory failure secondary to COPD exacerbation with hx of sarcoidosis on duonebs QID PRN SOB, BIPAP prn, home pred 5mg on hold , start solumedrol 40mg BID Iv, continue symbicort # Hx of Sarcoidosis # Hx of Permanent Afib on Asa 81, atenolol 50mg ,not on anticoagulation secondary to recent hemorrhagic cystitis # Hx of hemorrhagic cystitis, with hx of bilateral nephrostomy tubes # Hx of Klebsiella/ESBL UTI # Microcytic anemia will do Iron study on her. # Depression: lexapro 10mg daily # Hypercholesterolemia: lipitor 20mg qhs # Hx of HTN continue meds # Hx of CAD: Continue atenolol, Lipitor # hx of Pulmonary HTN DVT Px; Heparin -
[2018-12-29] MEDS ORDERED: predniSONE 5 MG TABLET (UD) PO SCH (10:00)
[2018-12-29] MEDS ORDERED: FUROSEMIDE 40 MG TABLET (FP) PO SCH (10:00)
[2018-12-29] MEDS ORDERED: FUROSEMIDE 40 MG/4 ML INJECTABLE VIAL IVPUSH SCH ×2 (10:46→14:00)
[2018-12-29] MEDS: ASPIRIN COATED 81 MG TABLET.EC PO SCH (11:02)
[2018-12-29] MEDS: SPIRONOLACTONE 25 MG TABLET (FP) PO SCH (11:02)
[2018-12-29] MEDS: ESCITALOPRAM OXALATE 10 MG TABLET (FP) PO SCH (11:02)
[2018-12-29] MEDS: ATENOLOL 25 MG TABLET (FP) PO SCH (11:03)
--- NOTE | 2018-12-29 11:11 | EKG ---
Test Reason : Blood Pressure : / mmHG Vent. Rate : 074 BPM Atrial Rate : 394 BPM P-R Int : 000 ms QRS Dur : 088 ms QT Int : 426 ms P-R-T Axes : 000 -08 -08 degrees QTc Int : 472 ms ATRIAL FLUTTER WITH VARIABLE A-V BLOCK NONSPECIFIC ST AND T WAVE ABNORMALITY PROLONGED QT ABNORMAL ECG Confirmed by LUIS E ELIZABETH MD ([id number]) on 12/29/2018 11:10:58 AM Referred By: Confirmed By:LUIS E ELIZABETH MD
[2018-12-29] MEDS: PANTOPRAZOLE SODIUM 40 MG VIAL IVPUSH SCH (11:16)
[2018-12-29] MEDS: methylPREDNISolone NA SUCC 40 MG/1 ML VIAL IVPUSH SCH ×2 (11:16→22:01)
[2018-12-29] MEDS ORDERED: FUROSEMIDE 40 MG/4 ML INJECTABLE VIAL IVPUSH ONE (11:31)
[2018-12-29 12:17] LABS: ANISOCYTOSIS 2+; MACROCYTOSIS 0; OVALOCYTE 2+; PLATELET ESTIMATE DECREASED; TARGET CELLS 2+; TEAR DROP CELLS 2+
[2018-12-29 12:55] LABS: ARTERIAL BLD GAS O2 SATURATION 97.6 % (95-98); ARTERIAL BLOOD GAS PCO2 63.3 mmHg (35-45); ARTERIAL BLOOD GAS PO2 109 mmHg (80-105); ARTERIAL BLOOD GAS pH 7.41 (7.35-7.45)
[2018-12-29 12:56] LABS: ARTERIAL BLOOD GAS BASE EXCESS 12.6 meq/l (-2-2)
[2018-12-29] MEDS: HEPARIN NA (PORCINE) 5,000 UNITS/ML 1ML VIAL SQ SCH ×2 (13:57→22:01)
[2018-12-29] MEDS: RAMIPRIL 2.5 MG CAPSULE (FP) PO SCH (13:57)
--- NOTE | 2018-12-29 14:33 | PN ---
Physical Exam: SUBJECTIVE: Patient seen and examined at bedside. On BIPAP. OBJECTIVE: Vital Signs Period Temp Pulse Resp BP Sys/Garza Pulse Ox Last 24 Hr 97.5 F-98.8 F 78-96 17-20 103-126/62-80 94-98 GENERAL:Somnolent, arousable to sternal rub. HEAD: NC/AT EYES: EOMI Sclera clear ENT: MMM NECK: Trachea midline, full range of motion, supple. LUNGS: coarse crackles b/l. HEART: irregularly irregular ABDOMEN: soft nondistended nontender EXTREMITIES: 1+ pitting edema NEUROLOGICAL: Cranial nerves II through XII grossly intact. PSYCH: Normal mood, normal affect. SKIN: No rashes or lesions appreciated Laboratory Results - last 24 hr 12/28/18 12/28/18 12/28/18 11:45 11:45 11:45 WBC RBC Hgb Hct MCV MCH MCHC RDW Plt Count MPV Neutrophils % (Manual) Band Neutrophils % Lymphocytes % (Manual) Monocytes % (Manual) Eosinophils % (Manual) Basophils % (Manual) Myelocytes % (Man) Promyelocytes % (Man) Blast Cells % (Manual) Nucleated RBC % Metamyelocytes Hypochromia Platelet Estimate Platelet Comment Polychromasia Poikilocytosis Anisocytosis Microcytosis Macrocytosis Spherocytes Target Cells Tear Drop Cells Ovalocytes Acanthocytes (Spur) PT with INR Cancelled INR Cancelled Anticoagulation Therapy Puncture Site ABG pH ABG pCO2 at Pt Temp ABG pO2 at Pt Temp ABG HCO3 ABG O2 Sat (Measured) ABG O2 Content ABG Base Excess Junior Test O2 Delivery Device Oxygen Flow Rate Vent Mode Vent Rate Mechanical Rate PEEP Pressure Support Vent Sodium Potassium Chloride Carbon Dioxide Anion Gap BUN Creatinine Creat Clearance w eGFR Random Glucose Lactic Acid Calcium Phosphorus Magnesium Total Bilirubin AST ALT Alkaline Phosphatase B-Natriuretic Peptide Total Protein Albumin TSH 2.55 Free T4 Urine Color Red Urine Appearance Cloudy Urine pH 6.0 Ur Specific [place] 1.014 Urine Protein 2+ H Urine Glucose (UA) Negative Urine Ketones Negative Urine Blood 3+ H Urine Nitrite Negative Urine Bilirubin Negative Urine Urobilinogen 2.0 H Ur Leukocyte Esterase 3+ H Urine WBC (Auto) 290 Urine RBC (Auto) 974 Urine Bacteria Rare 12/28/18 12/28/18 12/28/18 12:26 12:39 15:35 WBC RBC Hgb Hct MCV MCH MCHC RDW Plt Count MPV Neutrophils % (Manual) Band Neutrophils % Lymphocytes % (Manual) Monocytes % (Manual) Eosinophils % (Manual) Basophils % (Manual) Myelocytes % (Man) Promyelocytes % (Man) Blast Cells % (Manual) Nucleated RBC % Metamyelocytes Hypochromia 1+ Platelet Estimate Decreased Platelet Comment Polychromasia 0 Poikilocytosis 1+ Anisocytosis 1+ Microcytosis 1+ Macrocytosis 1+ Spherocytes Target Cells 1+ Tear Drop Cells Ovalocytes 1+ Acanthocytes (Spur) PT with INR 13.70 H INR 1.16 H Anticoagulation Therapy Puncture Site ABG pH ABG pCO2 at Pt Temp ABG pO2 at Pt Temp ABG HCO3 ABG O2 Sat (Measured) ABG O2 Content ABG Base Excess Junior Test O2 Delivery Device Oxygen Flow Rate Vent Mode Vent Rate Mechanical Rate PEEP Pressure Support Vent Sodium Potassium Chloride Carbon Dioxide Anion Gap BUN Creatinine Creat Clearance w eGFR Random Glucose Lactic Acid 1.2 Calcium Phosphorus Magnesium Total Bilirubin AST ALT Alkaline Phosphatase B-Natriuretic Peptide Total Protein Albumin TSH Free T4 Urine Color Urine Appearance Urine pH Ur Specific [place] Urine Protein Urine Glucose (UA) Urine Ketones Urine Blood Urine Nitrite Urine Bilirubin Urine Urobilinogen Ur Leukocyte Esterase Urine WBC (Auto) Urine RBC (Auto) Urine Bacteria 12/29/18 12/29/18 12/29/18 05:30 05:30 12:45 WBC 1.8 L* RBC 4.66 Hgb 10.0 L Hct 33.2 MCV 71.2 L MCH 21.6 L MCHC 30.3 L RDW 18.4 H Plt Count 145 MPV 9.3 Neutrophils % (Manual) 50.5 Band Neutrophils % 0.0 Lymphocytes % (Manual) 32.7 Monocytes % (Manual) 3 L Eosinophils % (Manual) 0.0 D Basophils % (Manual) 0.0 Myelocytes % (Man) 0 Promyelocytes % (Man) 0 Blast Cells % (Manual) 0 Nucleated RBC % 0 Metamyelocytes 0 Hypochromia 0 Platelet Estimate Decreased Platelet Comment Present Polychromasia 0 Poikilocytosis 2+ Anisocytosis 2+ Microcytosis 1+ Macrocytosis 0 Spherocytes 1+ Target Cells 2+ Tear Drop Cells 2+ Ovalocytes 2+ Acanthocytes (Spur) 1+ PT with INR INR Anticoagulation Therapy No Result Required. Puncture Site Right radial ABG pH 7.41 ABG pCO2 at Pt Temp 63.3 H ABG pO2 at Pt Temp 109 H ABG HCO3 39.4 H ABG O2 Sat (Measured) 97.6 ABG O2 Content 15.8 ABG Base Excess 12.6 H Junior Test No Result Required. O2 Delivery Device No Result Required. Oxygen Flow Rate No Result Required. Vent Mode No Result Required. Vent Rate 18 Mechanical Rate No Result Required. PEEP 5.0 Pressure Support Vent No Result Required. Sodium 139 Potassium 3.8 Chloride 95 L Carbon Dioxide 38 H Anion Gap 6 L BUN 28 H Creatinine 0.8 Creat Clearance w eGFR 68.50 Random Glucose 141 H Lactic Acid Calcium 8.9 Phosphorus 5.0 H Magnesium 2.6 H Total Bilirubin 0.6 AST 15 ALT 18 Alkaline Phosphatase 73 B-Natriuretic Peptide 9969.5 H Total Protein 6.9 Albumin 2.8 L TSH 0.98 Free T4 1.33 Urine Color Urine Appearance Urine pH Ur Specific [place] Urine Protein Urine Glucose (UA) Urine Ketones Urine Blood Urine Nitrite Urine Bilirubin Urine Urobilinogen Ur Leukocyte Esterase Urine WBC (Auto) Urine RBC (Auto) Urine Bacteria Active Medications Generic Name Dose Route Start Last Admin Trade Name Freq PRN Reason Stop Dose Admin Albuterol/Ipratropium 1 amp 12/28/18 21:49 Duoneb - NEB Q6H PRN SHORTNESS OF BREATH Aspirin 81 mg 12/29/18 10:00 12/29/18 11:02 Ecotrin - PO Not Given DAILY [facility] Atenolol 50 mg 12/29/18 10:00 12/29/18 11:03 Tenormin - PO Not Given DAILY [facility] Atorvastatin Calcium 20 mg 12/28/18 22:00 12/28/18 23:44 Lipitor - PO Not Given [facility] Escitalopram Oxalate 10 mg 12/29/18 10:00 12/29/18 11:02 Lexapro - PO Not Given DAILY [facility] Furosemide 20 mg 12/30/18 06:00 Lasix Injection - IVPUSH BID@0600,1400 [facility] Heparin Sodium (Porcine) 5,000 unit 12/29/18 14:00 12/29/18 13:57 Heparin - SQ 5,000 unit TID LISA Administration Methylprednisolone Sodium Succinate 40 mg 12/28/18 22:15 12/29/18 11:16 Solu-Medrol - IVPUSH 40 mg BID LISA Administration Pantoprazole Sodium 40 mg 03/15/19 10:00 12/29/18 11:16 Protonix Iv IVPUSH 40 mg DAILY LISA Administration Ramipril 2.5 mg 12/29/18 14:00 12/29/18 13:57 Altace - PO 2.5 mg DAILY LISA Administration Spironolactone 25 mg 12/29/18 10:00 12/29/18 11:02 Aldactone - PO Not Given DAILY [facility] ASSESSMENT/PLAN: 81F h/o afib, CHF, COPD (on home O2 2L), HTN, pulm HTN, hematuria s/p b/l perc nephrostomy sent from [place] for chest tightness, shortness of breath, UTI #Acote on Chronic DCHF - on lasix 40 mg daily as outpatient - BNP > 9000 - CXR mild congestion, sob and edema have improved but still some dyspnea, mild JVD - weight stable compared to discharge (161 lbs, although this is bed weight) - received lasix 40 mg IV x 2 doses - continue atenolol 50 mg daily, spironolactone - lasix to 40 mg IV daily -Cardiology on board #Elevated troponin - trop indeterminate range, stable compared to prior values - EKG unchanged, less likely ACS #Atrial Fibrillation: - Pt on Tenormin 50 mg daily. Pt is rate controlled. - Pt's Qrgmp2Vfso 4-5. Should be on anticoagulation however has h/o hemorrhagic cystitis. - cont aspirin #COPD - home pred 5mg on hold, - solumedrol 40mg BID IV -continue symbicort #HLD - continue statin FEN No Fluids Monitor Electrolytes Sodium controlled diet DVT ppx: SCD's Dispo: Tele Visit type - Emergency Visit Emergency Visit: Yes ED Registration Date: 12/28/18 Care time: The patient presented to the Emergency Department on the above date and was hospitalized for further evaluation of their emergent condition. - New Patient This patient is new to me today: Yes Date on this admission: 12/29/18 - Critical Care Critical Care patient: No - Discharge Referral Referred to [id number] No
--- NOTE | 2018-12-29 15:12 | CON.CARD ---
Cardiology Consult (text) - Consultation Consultation Note: Chief Complaint: chest tightness, dyspnea History of Present Illness: 82F h/o afib, CHF, COPD (on home O2 2L), HTN, pulm HTN, hematuria s/p b/l perc nephrostomy sent from [place] for shortness of breath. Recently discharged, was admitted for CHF exac and diuresed with IV lasix and treated for UTI. Complains of sob starting morning of admission, hypoxia reportedly with O2 sat mid 60% at [place]. Improved with nebs, steroids, lasix overnight. This morning was acutely short of breath, unresponsive and improved with IV lasix and BiPAP. Patient also notes edema worsening after recent discharge. No chest pain, palps, dizziness, lightheadedness. 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 No: Renal Calculi Psych: Yes: Depression - Past Surgical History Past Surgical History: Yes: Cholecystectomy, Hysterectomy - Alcohol/Substance Use Hx Alcohol Use: No History of Substance Use: reports: None - Smoking History Smoking history: Never smoked Have you smoked in the past 12 months: No Aproximately how many cigarettes per day: 0 - Social History Usual Living Arrangement: Other (most recently has been at [place]/ [facility], and since developing pain has been ambulating with ) History of Recent Travel: No Home Medications Allergies Allergy/AdvReac Type Severity Reaction Status Date / Time levofloxacin [From Levaquin] Allergy Intermediate Itching Verified 12/28/18 11: 13 Home Medications Medication Instructions Recorded Atorvastatin Ca [Lipitor] 20 mg PO HS 04/16/18 Albuterol Sulfate [Proventil HFA 1 inh PO Q4H PRN 06/20/18 Inhaler -] Budesonide/Formeterol Fumarate 2 inh PO BID 06/20/18 [SYMBICORT 160/4.5mcg -] Spironolactone [Aldactone] 25 mg PO DAILY #2 tablet 09/11/18 predniSONE [Deltasone -] 5 mg PO DAILY #7 tablet 09/11/18 Escitalopram Oxalate [Lexapro -] 10 mg PO DAILY 10/06/18 Atenolol [Tenormin] 50 mg PO DAILY 11/09/18 Furosemide [Lasix -] 40 mg PO DAILY 12/20/18 Ramipril [Altace] 2.5 mg PO DAILY 12/20/18 Aspirin Coated [Ecotrin -] 81 mg PO DAILY tablet.ec 12/25/18 Family Disease History - Family Disease History Family Disease History: Heart Disease: Father, Mother, Other: Sister (Colon cancer) Review of Systems - Review of Systems per hpi, no nvd +fever no gib dysuria dash vision changes muscle pain Vital Signs: Vital Signs Period Temp Pulse Resp BP Sys/Garza Pulse Ox Last 24 Hr 97.5 F-98.8 F 78-96 17-20 103-126/62-80 94-98 Constitutional: Yes: Well Nourished, No Distress Eyes: Yes: Conjunctiva Clear HENT: Yes: Atraumatic, Normocephalic Neck: Yes: Supple, Trachea Midline Respiratory: raad rales at bases, poor effort Gastrointestinal: Yes: Normal Bowel Sounds, Soft Cardiovascular: Yes: Pulse Irregular JVD: + JVD Heart Sounds: Yes: S1, S2 Edema: 1+ raad lower ext Peripheral Pulses WNL: Yes Peripheral Pulses: 2+ Left Doralis Pedis, 2+ Right Dorsalis Pedis Integumentary: No: Jaundice diaphoresis Neurological: Yes: Alert, Oriented Psychiatric: Yes: Alert, Oriented Echo 05/03: nl LVEF. mild RVE, mild-mod RV hypo. L/NEENA. mod MR/TR. RVSP at least 88 mmHg Echo 03/2017: Mild conc lvh. nl lv/rv size/fn, mod ronnie, mod mr, mod tr, rvsp 40- 50 EKG: afib rate okay, no ischemic changes CXR mild congestive changes Echo 07/2018 nl LV function, LA mod/severely dilated. RA mod dilated. Mod MR. Mod TR. RVSP elevated at 74 mmHG. tele: afib, PVCs, rate ok Assessment/Plan 81F h/o afib, CHF, COPD (on home O2 2L), HTN, pulm HTN, hematuria s/p b/l perc nephrostomy sent from [place] for chest tightness, shortness of breath, UTI acute on chronic diastolic HF exacerbation, cor pulmonale with RV failure - on lasix 40 mg daily as outpatient - BNP 9900 - CXR mild congestion, sob and edema have improved but still some dyspnea, mild JVD - weight stable compared to discharge (161 lbs, although this is bed weight) - received lasix 40 mg IV x 2 doses - continue atenolol, spironolactone - change lasix to 40 mg IV daily Elevated troponin - trop indeterminate range, stable compared to prior values - EKG unchanged, less likely ACS afib: - HR control overall acceptable at present, cont bb - holding eliquis for hx of severe hematuria, anemia - cont aspirin COPD - manage per primary HLD - continue statin cad, NSTEMI, staph bacteremia 07/2018: -periop hypotension 08/11 during cysto, briefly on pressors. likely due to bacteremia, overdiuresis -trop 2.0 the following day, trended down, likely Type II CT sec to hypoperfusion/sepsis (+/- underlying stable CAD). ECG 08/[address] depressions inferior leads, improved on 08/12 tracing--cannot exclude Type I CT at time of events. -AC initially held for gross hematuria with large clots/hydronephrosis, was back on eliquis and now stopped again due to hematuria. defer aspirin -BB and afib HR control as doing -defer invasive CAD mgmt approach given poor functional status with competing mortality limitations from severe lung dz, low likelihood to improve prognosis, and risks > benefits (including bleeding, AIN)
--- NOTE | 2018-12-29 16:16 | CON.PULM ---
Consult Consult Specialty:: PULM/CCM Referred by:: LEONARDO Reason for Consultation:: SOB - History of Present Illness Chief Complaint: SOB History of Present Illness: 82 F, COPD on 2 L NC O2, AFib, CHF, HTN, Pulmonary HTN, hematuria and previous B /L percutanous nephrostomies. There is mention of Sarcoidosis in her medical record, but the details are not clear. Admitted via the ER from the SNF due to progressive shortness of breath. She was recently admitted and treated for decompensated CHF. She was also treated for UTI. Reported to have a saturation of 60% at the SNF. This AM while in the hospital was noted to be have an episode of unresponsiveness. She was given Lasix and placed on NIPPV with improvement. Currently, she is awake and alert and responsive. She is in NAD on 2 L NC O2. No travel history or sick contacts. CXR: bilateral increase in pulmonary vascular markings. CT chest: 09/2018: no dominant nodules or masses / small pleural effusions / dilated PA consistent with PAH. - History Source History Provided By: Patient Limitations to Obtaining History: Poor Historian - Past Medical History BLOOD TESTER: Yes: Vertigo (intermittent) Cardio/Vascular: Yes: AFIB, CHF, HTN, Hyperlipdemia, Pulmonary Hypertension, Other (Sarcoidosis) Pulmonary: Yes: Asthma, COPD Gastrointestinal: Yes: GERD Renal/: Yes: Hematuria Psych: Yes: Depression Musculoskeletal: Yes: Osteoarthritis - Past Surgical History Past Surgical History: Yes: Cholecystectomy, Hysterectomy - Alcohol/Substance Use Hx Alcohol Use: No History of Substance Use: reports: None - Smoking History Smoking history: Smoker current status UNK Have you smoked in the past 12 months: No Aproximately how many cigarettes per day: 0 - Social History Usual Living Arrangement: Other (most recently has been at [facility], and since developing pain has been ambulating with [facility]) History of Recent Travel: No Home Medications - Allergies Allergies/Adverse Reactions: Allergies Allergy/AdvReac Type Severity Reaction Status Date / Time levofloxacin [From Levaquin] Allergy Intermediate Itching Verified 12/28/18 11: 13 - Home Medications Home Medications: Ambulatory Orders Atorvastatin Ca [Lipitor] 20 mg PO HS 04/16/18 Albuterol Sulfate [Proventil HFA Inhaler -] 1 inh PO Q4H PRN 06/20/18 Budesonide/Formeterol Fumarate [SYMBICORT 160/4.5mcg -] 2 inh PO BID 06/20/18 Spironolactone [Aldactone] 25 mg PO DAILY #2 tablet 09/11/18 predniSONE [Deltasone -] 5 mg PO DAILY #7 tablet 09/11/18 Escitalopram Oxalate [Lexapro -] 10 mg PO DAILY 10/06/18 Atenolol [Tenormin] 50 mg PO DAILY 11/09/18 Furosemide [Lasix -] 40 mg PO DAILY 12/20/18 Ramipril [Altace] 2.5 mg PO DAILY 12/20/18 Aspirin Coated [Ecotrin -] 81 mg PO DAILY tablet.ec 12/25/18 Family Disease History - Family Disease History Family Disease History: Heart Disease: Father, Mother, Other: Sister (Colon cancer) Review of Systems - Review of Systems Constitutional: reports: Malaise. denies: Chills, Fever, Night Sweats Eyes: reports: No Symptoms HENT: reports: No Symptoms Neck: reports: No Symptoms Cardiovascular: reports: Edema, Shortness of Breath. denies: Chest Pain, Palpitations Respiratory: reports: Cough, Orthopnea, SOB, SOB on Exertion. denies: Hemoptysis, Snoring, Wheezing Gastrointestinal: reports: No Symptoms Genitourinary: reports: No Symptoms Breasts: reports: No Symptoms Reported Musculoskeletal: reports: No Symptoms Integumentary: reports: No Symptoms Neurological: reports: Change in LOC, Confusion Endocrine: reports: No Symptoms Hematology/Lymphatic: reports: No Symptoms Psychiatric: reports: No Symptoms Physical Exam Vital Sings: Vital Signs Temperature 98.0 F 12/29/18 13:00 Pulse Rate 96 H 12/29/18 13:00 Respiratory Rate 18 12/29/18 13:00 Blood Pressure 122/71 12/29/18 13:00 O2 Sat by Pulse Oximetry (%) 97 12/29/18 11:29 Constitutional: Yes: No Distress, Calm Eyes: Yes: Conjunctiva Clear, EOM Intact HENT: Yes: Atraumatic, Normocephalic Neck: Yes: Supple, Trachea Midline Cardiovascular: Yes: Pulse Irregular Respiratory: Yes: Cough, Diminished, On Nasal O2, Rales, Rhonchi, SOB. No: Accessory Muscle Use, SOB on Exertion, Stridor, Tachypnea, Wheezes ...Inspection: Yes: WNL ...Clubbing: No Gastrointestinal: Yes: Normal Bowel Sounds, Soft Renal/: Yes: WNL Musculoskeletal: Yes: WNL Extremities: Yes: WNL Edema: Yes Peripheral Pulses WNL: Yes Integumentary: Yes: WNL Neurological: Yes: WNL, Alert, Oriented ...Motor Strength: WNL Psychiatric: Yes: WNL, Alert, Oriented Labs: CBC, BMP 12/29/18 05:30 12/29/18 05:30 ABG Results ABG pH 7.41 (7.35-7.45) 12/29/18 12:45 ABG pCO2 at Pt Temp 63.3 mmHg (35-45) H 12/29/18 12:45 ABG pO2 at Pt Temp 109 mmHg (80-105) H 12/29/18 12:45 ABG HCO3 39.4 mmol/L (22-27) H 12/29/18 12:45 ABG O2 Sat (Measured) 97.6 % (95-98) 12/29/18 12:45 ABG O2 Content 15.8 % vol (15-22) 12/29/18 12:45 ABG Base Excess 12.6 meq/l (-2-2) H 12/29/18 12:45 Imaging - Results Chest X-ray: Report Reviewed, Image Reviewed Problem List - Problems (1) Altered mental status Code(s): R41.82 - ALTERED MENTAL STATUS, UNSPECIFIED Qualifiers: Altered mental status type: somnolence Qualified Code(s): R40.0 - Somnolence (2) COPD (chronic obstructive pulmonary disease) Code(s): J44.9 - CHRONIC OBSTRUCTIVE PULMONARY DISEASE, UNSPECIFIED Qualifiers: COPD type: unspecified COPD Qualified Code(s): J44.9 - Chronic obstructive pulmonary disease, unspecified (3) Shortness of breath at rest Code(s): R06.02 - SHORTNESS OF BREATH (4) Acute CHF (congestive heart failure) Code(s): I50.9 - HEART FAILURE, UNSPECIFIED (5) Coronary artery disease Code(s): I25.10 - ATHSCL HEART DISEASE OF [place] CORONARY ARTERY W/O ANG PCTRS Qualifiers: Coronary Disease-Associated Artery/Lesion type: [place] artery [place] vs. transplanted heart: [place] heart Associated angina: without angina Qualified Code(s): I25.10 - Atherosclerotic heart disease of [place] coronary artery without angina pectoris (6) Hypercholesterolemia Code(s): E78.00 - PURE HYPERCHOLESTEROLEMIA, UNSPECIFIED (7) Hypertension Code(s): I10 - ESSENTIAL (PRIMARY) HYPERTENSION Qualifiers: Hypertension type: essential hypertension Qualified Code(s): I10 - Essential (primary) hypertension (8) Hypoxia Code(s): R09.02 - HYPOXEMIA (9) Pulmonary HTN Code(s): I27.20 - PULMONARY HYPERTENSION, UNSPECIFIED (10) Shortness of breath Code(s): R06.02 - SHORTNESS OF BREATH (11) Atrial fibrillation Code(s): I48.91 - UNSPECIFIED ATRIAL FIBRILLATION Qualifiers: Atrial fibrillation type: permanent Qualified Code(s): I48.2 - Chronic atrial fibrillation (12) Sarcoidosis Code(s): D86.9 - SARCOIDOSIS, UNSPECIFIED Assessment/Plan Short course of Medrol (suspect more of a CHF process) BD TX as ordered Daily weights IV Lasix O2 as needed to maintain saturation NIPPV QHS and PRN Would monitor off ABX Will follow Thank you. Dr Salinas
[2018-12-29] MEDS: ATORVASTATIN CA 20 MG TABLET (FP) PO SCH (22:01)
[2018-12-30] MEDS ORDERED: ACETAMINOPHEN 325 MG TABLET (FP) PO PRN (03:29)
[2018-12-30] MEDS ORDERED: FUROSEMIDE 40 MG/4 ML INJECTABLE VIAL IVPUSH SCH (06:00)
[2018-12-30] MEDS: HEPARIN NA (PORCINE) 5,000 UNITS/ML 1ML VIAL SQ SCH ×3 (06:13→22:12)
--- NOTE | 2018-12-30 08:33 | PN ---
Progress Note, Physician Chief Complaint: sob History of Present Illness: sob much better than prior to admit. mlid chest heaviness at times--says it is same as prior sx's on mult respiratory decomp episodes. no leg swelling today no palpit no cigs - Current Medication List Current Medications: Active Medications Acetaminophen (Tylenol -) 650 mg PO Q6H PRN PRN Reason: Fever Or Pain Level 1-5 Albuterol/Ipratropium (Duoneb -) 1 amp NEB Q6H PRN PRN Reason: SHORTNESS OF BREATH Aspirin (Ecotrin -) 81 mg PO DAILY [facility] Last Admin: 12/29/18 11:02 Dose: Not Given Atenolol (Tenormin -) 50 mg PO DAILY [facility] Last Admin: 12/29/18 11:03 Dose: Not Given Atorvastatin Calcium (Lipitor -) 20 mg PO HS [facility] Last Admin: 12/29/18 22:01 Dose: 20 mg Escitalopram Oxalate (Lexapro -) 10 mg PO DAILY [facility] Last Admin: 12/29/18 11:02 Dose: Not Given Furosemide (Lasix Injection -) 40 mg IVPUSH DAILY [facility] Heparin Sodium (Porcine) (Heparin -) 5,000 unit SQ TID [facility] Last Admin: 12/30/18 06:13 Dose: 5,000 unit Methylprednisolone Sodium Succinate (Solu-Medrol -) 40 mg IVPUSH BID [facility] Last Admin: 12/29/18 22:01 Dose: 40 mg Pantoprazole Sodium (Protonix Iv) 40 mg IVPUSH DAILY [facility] Last Admin: 12/29/18 11:16 Dose: 40 mg Ramipril (Altace -) 2.5 mg PO DAILY [facility] Last Admin: 12/29/18 13:57 Dose: 2.5 mg Spironolactone (Aldactone -) 25 mg PO DAILY [facility] Last Admin: 12/29/18 11:02 Dose: Not Given - Objective Vital Signs: Vital Signs Temperature 97.9 F 12/30/18 08:05 Pulse Rate 91 H 12/30/18 08:05 Respiratory Rate 18 12/30/18 08:05 Blood Pressure 138/91 12/30/18 08:05 O2 Sat by Pulse Oximetry (%) 93 L 12/29/18 21:00 Constitutional: Yes: No Distress, Calm Eyes: No: Sclera Icterus HENT: No: Nasal Congestion Cardiovascular: Yes: Regular Rate and Rhythm, JVD (mild (in bedside chair)), S1 , S2, Other (PMI non diplaced). No: Gallop, Murmur Respiratory: Yes: CTA Bilaterally. No: Accessory Muscle Use, Rales, Wheezes Gastrointestinal: Yes: Normal Bowel Sounds, Soft. No: Tenderness Musculoskeletal: Yes: Other (No kyphosis) Extremities: No: Cyanosis Edema: No Integumentary: No: Jaundice Neurological: Yes: Alert, Oriented (x3) Psychiatric: No: Agitated Labs: CBC, BMP 12/29/18 05:30 12/29/18 05:30 INR, PTT INR 1.16 (0.83-1.09) H 12/28/18 15:35 Assessment/Plan Echo 05/03: nl LVEF. mild RVE, mild-mod RV hypo. L/NEENA. mod MR/TR. RVSP at least 88 mmHg Echo 03/2017: Mild conc lvh. nl lv/rv size/fn, mod ronnie, mod mr, mod tr, rvsp 40- 50 EKG: afib rate okay, no ischemic changes CXR mild congestive changes Echo 07/2018 nl LV function, LA mod/severely dilated. RA mod dilated. Mod MR. Mod TR. RVSP elevated at 74 mmHG. tele: AF, hr controlled (briefly to 130s-140s) Assessment/Plan 81F h/o afib, CHF, COPD (on home O2 2L), HTN, pulm HTN, hematuria s/p b/l perc nephrostomy sent from [place] for chest tightness, shortness of breath, UTI acute on chronic diastolic HF exacerbation, pulm sarcoid, advanced COPD, cor pulmonale with RV failure, history of chronic hypoxemic/hypercapneic resp failure: - on lasix 40 mg daily as outpatient (recent decomp requiring IV lasix after diuretics held as outpt) - BNP 9900 (range 1K-10K) - CXR mild congestion, sob and edema have improved but still some dyspnea, mild JVD - weight stable compared to discharge (161 lbs, although this is bed weight) - received lasix 40 mg IV x 2 doses - continue atenolol, spironolactone - 12/29: change lasix to 40 mg IV daily - 12/30: do not think JVD will completely resolve, even when she is at her target wt/volume status (likely due to high R sided pressure). remains mild JVD , sx's much improved (note: chest heaviness is her typical sx of pulm decompensation/chf). continue lasix 40 IV qd for now. anticipate she will be ready for discharge cv-rojas in 24-48 hrs. Elevated troponin - trop indeterminate range, stable compared to prior values - EKG unchanged - no suspected angina (sx's typical of her prior resp exacerbation episodes) afib: - HR control mostly good, cont bb - holding eliquis for hx of severe hematuria, anemia - cont aspirin COPD - manage per primary HLD - continue statin cad, NSTEMI, staph bacteremia 07/2018: -periop hypotension 08/11 during cysto, briefly on pressors. likely due to bacteremia, overdiuresis -trop 2.0 the following day, trended down, likely Type II SC sec to hypoperfusion/sepsis (+/- underlying stable CAD). ECG 08/[address] depressions inferior leads, improved on 08/12 tracing--cannot exclude Type I SC at time of events. -AC initially held for gross hematuria with large clots/hydronephrosis, was back on eliquis and now stopped again due to hematuria. defer aspirin -BB and afib HR control as doing -defer invasive CAD mgmt approach given poor functional status with competing mortality limitations from severe lung dz, low likelihood to improve prognosis, and risks > benefits (including bleeding, AIN)
[2018-12-30] MEDS: methylPREDNISolone NA SUCC 40 MG/1 ML VIAL IVPUSH SCH ×2 (09:48→22:13)
[2018-12-30] MEDS: PANTOPRAZOLE SODIUM 40 MG VIAL IVPUSH SCH (09:48)
[2018-12-30] MEDS: ESCITALOPRAM OXALATE 10 MG TABLET (FP) PO SCH (09:48)
[2018-12-30] MEDS: FUROSEMIDE 40 MG/4 ML INJECTABLE VIAL IVPUSH SCH (09:48)
[2018-12-30] MEDS: SPIRONOLACTONE 25 MG TABLET (FP) PO SCH (09:49)
[2018-12-30] MEDS: ATENOLOL 25 MG TABLET (FP) PO SCH (09:49)
[2018-12-30] MEDS: RAMIPRIL 2.5 MG CAPSULE (FP) PO SCH (09:50)
[2018-12-30] MEDS: ASPIRIN COATED 81 MG TABLET.EC PO SCH (09:50)
--- NOTE | 2018-12-30 14:42 | PN ---
Progress Note (short form) - Note Progress Note: PULMONARY Breathing slightly improving. No chest pain. Still some cough and wheezing. Vital Signs Period Temp Pulse Resp BP Sys/Garza Pulse Ox Last 24 Hr 97.9 F-98.3 F 83-107 16-18 107-147/53-91 93-96 Gen: mildly tachypneic in chair Heart: RRR Lung: scattered rhonchi Abd: soft, nontender Ext: + edema CBC, BMP 12/29/18 05:30 12/29/18 05:30 Active Medications Acetaminophen (Tylenol -) 650 mg PO Q6H PRN PRN Reason: Fever Or Pain Level 1-5 Albuterol/Ipratropium (Duoneb -) 1 amp NEB Q6H PRN PRN Reason: SHORTNESS OF BREATH Aspirin (Ecotrin -) 81 mg PO DAILY [facility] Last Admin: 12/30/18 09:50 Dose: 81 mg Atenolol (Tenormin -) 50 mg PO DAILY [facility] Last Admin: 12/30/18 09:49 Dose: 50 mg Atorvastatin Calcium (Lipitor -) 20 mg PO HS [facility] Last Admin: 12/29/18 22:01 Dose: 20 mg Escitalopram Oxalate (Lexapro -) 10 mg PO DAILY [facility] Last Admin: 12/30/18 09:48 Dose: 10 mg Furosemide (Lasix Injection -) 40 mg IVPUSH DAILY [facility] Last Admin: 12/30/18 09:48 Dose: 40 mg Heparin Sodium (Porcine) (Heparin -) 5,000 unit SQ TID [facility] Last Admin: 12/30/18 13:32 Dose: 5,000 unit Methylprednisolone Sodium Succinate (Solu-Medrol -) 40 mg IVPUSH BID [facility] Last Admin: 12/30/18 09:48 Dose: 40 mg Pantoprazole Sodium (Protonix Iv) 40 mg IVPUSH DAILY [facility] Last Admin: 12/30/18 09:48 Dose: 40 mg Ramipril (Altace -) 2.5 mg PO DAILY [facility] Last Admin: 12/30/18 09:50 Dose: 2.5 mg Spironolactone (Aldactone -) 25 mg PO DAILY [facility] Last Admin: 12/30/18 09:49 Dose: 25 mg A/P Chronic Hypoxic and Hypercapneic Respiratory Failure Acute on Chronic Diastolic Heart Failure Acute COPD Exacerbation Atrial Fibrillation Sarcoidosis Pulmonary HTN HTN Leukopenia - continue lasix, aldactone - monitor urine output, creatinine - continue medrol at current dose - inhaled bronchodilators - O2 to keep SpO2 >90% - rate control - continue anticoagulation
--- NOTE | 2018-12-30 17:56 | PN ---
Progress Note (short form) - Note Progress Note: Patient is breathing better today. Vital Signs Temperature 98.2 F 12/30/18 13:11 Pulse Rate 84 12/30/18 13:11 Respiratory Rate 18 12/30/18 13:11 Blood Pressure 107/56 L 12/30/18 13:11 O2 Sat by Pulse Oximetry (%) 98 12/30/18 16:00 GE: Elderly adult female in no obvious discomfort. Head: Normocephalic. AT. Neck: Supple, trachea is midline. Respiratory: Decreased breath sounds with scattered wheeze . No stridor, rhonchi, or rales Cardiovascular: Irregularly irregular rate and rhythm. S1S2 positive ,no rubs, clicks, or gallops. Gastrointestinal: abdomen is soft, non-tender, non-distended. Neuro: CN 2-12 grossly intact Skin: Warm, dry, and intact. No bruising, rashes, or other lesions. Extremities: pulses are positive. CBCD WBC 1.8 K/mm3 (4.0-10.0) L* 12/29/18 05:30 RBC 4.66 M/mm3 (3.60-5.2) 12/29/18 05:30 Hgb 10.0 GM/dL (10.7-15.3) L 12/29/18 05:30 Hct 33.2 % (32.4-45.2) 12/29/18 05:30 MCV 71.2 fl (80-96) L 12/29/18 05:30 MCHC 30.3 g/dl (32.0-36.0) L 12/29/18 05:30 RDW 18.4 % (11.6-15.6) H 12/29/18 05:30 Plt Count 145 K/MM3 (134-434) 12/29/18 05:30 MPV 9.3 fl (7.5-11.1) 12/29/18 05:30 CMP Sodium 139 mmol/L (136-145) 12/29/18 05:30 Potassium 3.8 mmol/L (3.5-5.1) 12/29/18 05:30 Chloride 95 mmol/L (98-107) L 12/29/18 05:30 Carbon Dioxide 38 mmol/L (21-32) H 12/29/18 05:30 Anion Gap 6 MMOL/L (8-16) L 12/29/18 05:30 BUN 28 mg/dL (7-18) H 12/29/18 05:30 Creatinine 0.8 mg/dL (0.55-1.3) 12/29/18 05:30 Creat Clearance w eGFR 68.50 (>60) 12/29/18 05:30 Random Glucose 141 mg/dL (74-106) H 12/29/18 05:30 Calcium 8.9 mg/dL (8.5-10.1) 12/29/18 05:30 Total Bilirubin 0.6 mg/dL (0.2-1) 12/29/18 05:30 AST 15 U/L (15-37) 12/29/18 05:30 ALT 18 U/L (13-61) 12/29/18 05:30 Alkaline Phosphatase 73 U/L (45-117) 12/29/18 05:30 Total Protein 6.9 g/dl (6.4-8.2) 12/29/18 05:30 Albumin 2.8 g/dl (3.4-5.0) L 12/29/18 05:30 CARDIAC ENZYMES Creatine Kinase 38 U/L (26-192) 12/28/18 11:44 Troponin I 0.09 ng/ml (0.00-0.05) H 12/28/18 11:44 Current Medications Generic Name Dose Route Start Last Admin Trade Name Freq PRN Reason Stop Dose Admin Acetaminophen 650 mg 12/30/18 03:29 Tylenol - PO Q6H PRN Fever Or Pain Level 1-5 Albuterol/Ipratropium 1 amp 12/28/18 21:49 Duoneb - NEB Q6H PRN SHORTNESS OF BREATH Aspirin 81 mg 12/29/18 10:00 12/30/18 09:50 Ecotrin - PO 81 mg DAILY LISA Administration Atenolol 50 mg 12/29/18 10:00 12/30/18 09:49 Tenormin - PO 50 mg DAILY LISA Administration Atorvastatin Calcium 20 mg 12/28/18 22:00 12/29/18 22:01 Lipitor - PO 20 mg HS LISA Administration Escitalopram Oxalate 10 mg 12/29/18 10:00 12/30/18 09:48 Lexapro - PO 10 mg DAILY [facility]ISA Administration Furosemide 40 mg 12/30/18 10:00 12/30/18 09:48 Lasix Injection - IVPUSH 40 mg DAILY [facility] Administration Heparin Sodium (Porcine) 5,000 unit 12/29/18 14:00 12/30/18 13:32 Heparin - SQ 5,000 unit TID [facility]ISA Administration Methylprednisolone Sodium Succinate 40 mg 12/28/18 22:15 12/30/18 09:48 Solu-Medrol - IVPUSH 40 mg BID [facility]ISA Administration Pantoprazole Sodium 40 mg 12/29/18 10:00 12/30/18 09:48 Protonix Iv IVPUSH 40 mg DAILY [facility] Administration Ramipril 2.5 mg 12/29/18 14:00 12/30/18 09:50 Altace - PO 2.5 mg DAILY [facility] Administration Spironolactone 25 mg 12/29/18 10:00 12/30/18 09:49 Aldactone - PO 25 mg DAILY [facility] Administration Home Medications Medication Instructions Recorded Atorvastatin Ca [Lipitor] 20 mg PO HS 04/16/18 Albuterol Sulfate [Proventil HFA 1 inh PO Q4H PRN 06/20/18 Inhaler -] Budesonide/Formeterol Fumarate 2 inh PO BID 06/20/18 [SYMBICORT 160/4.5mcg -] Spironolactone [Aldactone] 25 mg PO DAILY #2 tablet 09/11/18 predniSONE [Deltasone -] 5 mg PO DAILY #7 tablet 09/11/18 Escitalopram Oxalate [Lexapro -] 10 mg PO DAILY 10/06/18 Atenolol [Tenormin] 50 mg PO DAILY 11/09/18 Furosemide [Lasix -] 40 mg PO DAILY 12/20/18 Ramipril [Altace] 2.5 mg PO DAILY 12/20/18 Aspirin Coated [Ecotrin -] 81 mg PO DAILY tablet.ec 12/25/18 Chest X-ray: Report Reviewed (CXR 12/28/2018 Impression: CArdiomegaly and pulmonary congestion. increased the interstitial markings.) Cat Scan: Report Reviewed (Head CT 12-28-2018 Moderate atrophy. No gross evidence of a focal intracranial lesion or hemorrhage is seen. Read by Dr. Emmy Hendrix) EKG: Report Reviewed (EKG 12-28-2018 Afib 81bpm) ASSESSMENT AND PLAN: Patient is a 82yo female with PMHx of pernicious anemia, heart murmur, COPD, HTN , CHF, GERD, afib, hyperlipidemia and sarcoidosis who presents to the ED c/o SOB and was admitted for having hypoxia (O2 sat mid 60%). # Acute on chronic diastolic heart failure continue ramipril, aldactone and lasix IV, with BNP of 9k, cardio on the case appreciated. # Acute Leukopenia 1.8 , last admisson was 4.0, will monitor #Acute on chronic hypoxic ,hypercapneic respiratory failure due to COPD exacerbation with hx of sarcoidosis on duonebs QID PRN SOB, BIPAP prn, home pred 5mg on hold, continue solumedrol 40mg BID Iv, continue symbicort, improving # Hx of Sarcoidosis on solumedrol continue # Hx of Permanent Afib on Asa 81, atenolol 50mg ,not on anticoagulation secondary to recent hemorrhagic cystitis # Hx of hemorrhagic cystitis, with hx of bilateral nephrostomy tubes # Hx of Klebsiella/ESBL UTI # Microcytic anemia will do Iron study on her. # Depression: lexapro 10mg daily # Hypercholesterolemia: lipitor 20mg qhs # Hx of HTN continue meds # Hx of CAD: Continue atenolol, Lipitor # hx of Pulmonary HTN DVT Px; Heparin Visit type - Emergency Visit Emergency Visit: Yes ED Registration Date: 12/28/18 Care time: The patient presented to the Emergency Department on the above date and was hospitalized for further evaluation of their emergent condition. - New Patient This patient is new to me today: No - Critical Care Critical Care patient: No - Discharge Referral Referred to [facility] No
[2018-12-30] MEDS: ATORVASTATIN CA 20 MG TABLET (FP) PO SCH (22:12)
[2018-12-31] MEDS: HEPARIN NA (PORCINE) 5,000 UNITS/ML 1ML VIAL SQ SCH ×3 (06:03→23:07)
[2018-12-31 06:50] LABS: HEMATOCRIT 33.7 % (32.4-45.2); HEMOGLOBIN 10.4 GM/dL (10.7-15.3); MCH 21.9 pg (25.7-33.7); MEAN CELL VOLUME 70.8 fl (80-96); MEAN PLT VOLUME 9.6 fl (7.5-11.1); PLATELET COUNT 178 K/MM3 (134-434); RBC 4.75 M/mm3 (3.60-5.2); RDW 18.1 % (11.6-15.6); WHITE BLOOD COUNT 7.2 K/mm3 (4.0-10.0)
[2018-12-31 07:11] LABS: ANION GAP 5 MMOL/L (8-16); BLOOD UREA NITROGEN 35 mg/dL (7-18); CALCIUM 8.7 mg/dL (8.5-10.1); CHLORIDE 93 mmol/L (98-107); CO2 40 mmol/L (21-32); CREATININE 0.8 mg/dL (0.55-1.3); GLUCOSE,RANDOM 152 mg/dL (74-106); MAGNESIUM 2.3 mg/dL (1.8-2.4); PHOSPHOROUS 2.9 mg/dL (2.5-4.9); POTASSIUM 3.3 mmol/L (3.5-5.1); SODIUM 137 mmol/L (136-145)
--- NOTE | 2018-12-31 09:36 | PN ---
Physical Exam: SUBJECTIVE: Pt seen eating breakfast sitting up in bed. Pt has no complaints today and reports her breathing feeling better. She continues to use the biLevel intermittently, however last night was the least amount of time used since admission. Pt denies any shortness of breath, chest pain, or palpitations today. Pt urinating without complaints still. OBJECTIVE: Vital Signs Period Temp Pulse Resp BP Sys/Garza Pulse Ox Last 24 Hr 97.6 F-98.2 F 76-87 18-18 103-136/56-87 96-98 GENERAL: The patient is awake, alert, and fully oriented, in no acute distress. HEENT: NC/AT, ROBERTA, MMM NECK: prominent JVD noted, slightly pulsatile LUNGS: Wheezes at the bases bilaterally with chronic lung sounds appreciated, no crackles, no accessory muscle use. On 3LNC HEART: RRR, S1, S2 without murmur ABDOMEN: Soft, nontender, nondistended, normoactive bowel sounds, no guarding EXTREMITIES: 2+ DP pulses, warm, well-perfused, no edema appreciated PSYCH: Normal mood, normal affect. SKIN: Warm, dry, normal turgor, no rashes Laboratory Results 12/31/18 12/31/18 06:30 06:30 WBC 7.2 RBC 4.75 Hgb 10.4 L Hct 33.7 MCV 70.8 L MCH 21.9 L MCHC 31.0 L RDW 18.1 H Plt Count 178 D MPV 9.6 Sodium 137 Potassium 3.3 L Chloride 93 L Carbon Dioxide 40 H Anion Gap 5 L BUN 35 H Creatinine 0.8 Creat Clearance w eGFR 68.50 Random Glucose 152 H Calcium 8.7 Phosphorus 2.9 Magnesium 2.3 Active Medications Generic Name Dose Route Start Last Admin Trade Name Freq PRN Reason Stop Dose Admin Acetaminophen 650 mg 12/30/18 03:29 12/30/18 23:21 Tylenol - PO 650 mg Q6H PRN Administration Fever Or Pain Level 1-5 Albuterol/Ipratropium 1 amp 12/28/18 21:49 Duoneb - NEB Q6H PRN SHORTNESS OF BREATH Aspirin 81 mg 12/29/18 10:00 12/30/18 09:50 Ecotrin - PO 81 mg DAILY LISA Administration Atenolol 50 mg 12/29/18 10:00 12/30/18 09:49 Tenormin - PO 50 mg DAILY LISA Administration Atorvastatin Calcium 20 mg 12/28/18 22:00 12/30/18 22:12 Lipitor - PO 20 mg HS LISA Administration Escitalopram Oxalate 10 mg 12/29/18 10:00 12/30/18 09:48 Lexapro - PO 10 mg DAILY LISA Administration Furosemide 40 mg 12/30/18 10:00 12/30/18 09:48 Lasix Injection - IVPUSH 40 mg DAILY LISA Administration Heparin Sodium (Porcine) 5,000 unit 12/29/18 14:00 12/31/18 06:03 Heparin - SQ 5,000 unit TID LISA Administration Methylprednisolone Sodium Succinate 40 mg 12/28/18 22:15 12/30/18 22:13 Solu-Medrol - IVPUSH 40 mg BID LISA Administration Pantoprazole Sodium 40 mg 12/29/18 10:00 12/30/18 09:48 Protonix Iv IVPUSH 40 mg DAILY LISA Administration Ramipril 2.5 mg 12/29/18 14:00 12/30/18 09:50 Altace - PO 2.5 mg DAILY LISA Administration Spironolactone 25 mg 12/29/18 10:00 12/30/18 09:49 Aldactone - PO 25 mg DAILY LISA Administration ASSESSMENT/PLAN: Acute on chronic diastolic failure Acute on chronic hypercapneic, hypoxemic failure Permanent Atrial fibrillation Leukopenia (resolved) Microcytic anemia Depression HLD HTN CAD Pulmonary HTN Sarcoidosis --Can switch Lasix IV to PO 40mg today --Daily weights to continue --Pt seems more towards her euvolemic state --Cardiology on board --Can keep BiLevel on Standby if pt needs --Likely more CHF exacerbation than COPD --Continue Medrol 40 BID today and can switch to PO Prednisone daily tomorrow --Duonebs PRN --Pulmonology on board --Currently rate controlled Afib; continue Atenolol 50mg --Not on AC 2/2 to hemorrhagic cystitis; can continue ASA 81mg qDaily --Can discontinue telemetry as pt is controlled and not in exacerbation this visit --Continue Lexapro 10mg qDaily --Continue Lipitor 20mg qHS --Continue Ramipril 2.5mg qdaily FEN: Fluids: Avoid; current diuresis Electrolyte abnormalities: Hypokalemia 3.3 (mild; kdur repletion) Nutrition: Sodium-controlled diet PPX: DVT - Heparin SQ TID GI - Protonix switch to PO daily Dispo: Can discontinue telemetry and transfer to [facility]. Likely to return back to [place] in next 24hrs Case discussed with Dr. Luisa Sharma, DO - IM PGY-2 Visit type - Emergency Visit Emergency Visit: Yes ED Registration Date: 12/28/18 Care time: The patient presented to the Emergency Department on the above date and was hospitalized for further evaluation of their emergent condition. - New Patient This patient is new to me today: No - Critical Care Critical Care patient: No
--- NOTE | 2018-12-31 10:35 | PN ---
Progress Note, Physician Chief Complaint: sob History of Present Illness: no sob today. no chest heaviness. no leg swelling no palpit - Current Medication List Current Medications: Active Medications Acetaminophen (Tylenol -) 650 mg PO Q6H PRN PRN Reason: Fever Or Pain Level 1-5 Last Admin: 12/30/18 23:21 Dose: 650 mg Albuterol/Ipratropium (Duoneb -) 1 amp NEB Q6H PRN PRN Reason: SHORTNESS OF BREATH Aspirin (Ecotrin -) 81 mg PO DAILY [facility] Last Admin: 12/30/18 09:50 Dose: 81 mg Atenolol (Tenormin -) 50 mg PO DAILY [facility] Last Admin: 12/30/18 09:49 Dose: 50 mg Atorvastatin Calcium (Lipitor -) 20 mg PO HS [facility] Last Admin: 12/30/18 22:12 Dose: 20 mg Escitalopram Oxalate (Lexapro -) 10 mg PO DAILY [facility] Last Admin: 12/30/18 09:48 Dose: 10 mg Furosemide (Lasix Injection -) 40 mg IVPUSH DAILY [facility] Last Admin: 12/30/18 09:48 Dose: 40 mg Heparin Sodium (Porcine) (Heparin -) 5,000 unit SQ TID [facility] Last Admin: 12/31/18 06:03 Dose: 5,000 unit Methylprednisolone Sodium Succinate (Solu-Medrol -) 40 mg IVPUSH BID [facility] Last Admin: 12/30/18 22:13 Dose: 40 mg Pantoprazole Sodium (Protonix Iv) 40 mg IVPUSH DAILY [facility] Last Admin: 12/30/18 09:48 Dose: 40 mg Ramipril (Altace -) 2.5 mg PO DAILY [facility] Last Admin: 12/30/18 09:50 Dose: 2.5 mg Spironolactone (Aldactone -) 25 mg PO DAILY [facility] Last Admin: 12/30/18 09:49 Dose: 25 mg - Objective Vital Signs: Vital Signs Temperature 98.2 F 12/31/18 06:05 Pulse Rate 76 12/31/18 06:05 Respiratory Rate 18 12/31/18 06:05 Blood Pressure 136/87 12/31/18 06:05 O2 Sat by Pulse Oximetry (%) 98 12/30/18 21:00 Constitutional: Yes: Well Nourished, No Distress, Calm Cardiovascular: Yes: Pulse Irregular, JVD, Murmur (soft syst murmur LLSB ? TR), S1, S2. No: Gallop Respiratory: Yes: Regular, CTA Bilaterally. No: Accessory Muscle Use, Rales, Wheezes Extremities: No: Cold Edema: No Neurological: Yes: Alert, Oriented Psychiatric: No: Agitated Labs: CBC, BMP 12/31/18 06:30 12/31/18 06:30 INR, PTT INR 1.16 (0.83-1.09) H 12/28/18 15:35 Assessment/Plan Echo 05/03: nl LVEF. mild RVE, mild-mod RV hypo. L/NEENA. mod MR/TR. RVSP at least 88 mmHg Echo 03/2017: Mild conc lvh. nl lv/rv size/fn, mod ronnie, mod mr, mod tr, rvsp 40- 50 EKG: afib rate okay, no ischemic changes CXR mild congestive changes Echo 07/2018 nl LV function, LA mod/severely dilated. RA mod dilated. Mod MR. Mod TR. RVSP elevated at 74 mmHG. tele: AF, hr controlled Assessment/Plan 81F h/o afib, CHF, COPD (on home O2 2L), HTN, pulm HTN, hematuria s/p b/l perc nephrostomy sent from [place] for chest tightness, shortness of breath, UTI acute on chronic diastolic HF exacerbation, pulm sarcoid, advanced COPD, cor pulmonale with RV failure, history of chronic hypoxemic/hypercapneic resp failure: - on lasix 40 mg daily as outpatient (recent decomp requiring IV lasix after diuretics held as outpt) - BNP 9900 (range 1K-10K) - CXR mild congestion, sob and edema have improved but still some dyspnea, mild JVD - weight stable compared to discharge (161 lbs, although this is bed weight) - received lasix 40 mg IV x 2 doses - continue atenolol, spironolactone - 12/29: change lasix to 40 mg IV daily - 12/30: do not think JVD will completely resolve, even when she is at her target wt/volume status (likely due to high R sided pressure). remains mild JVD , sx's much improved (note: chest heaviness is her typical sx of pulm decompensation/chf). continue lasix 40 IV qd for now. anticipate she will be ready for discharge cv-rojas in 24-48 hrs. - 12/31: clinically much improved, no sx's or volume. change lasix 40 IV qd to 40 PO qd. Elevated troponin - trop indeterminate range, stable compared to prior values - EKG unchanged - no suspected angina (sx's typical of her prior resp exacerbation episodes) afib: - HR control mostly good, cont bb - holding eliquis for hx of severe hematuria, anemia - cont aspirin COPD - manage per primary HLD - continue statin cad, NSTEMI, staph bacteremia 07/2018: -periop hypotension 08/11 during cysto, briefly on pressors. likely due to bacteremia, overdiuresis -trop 2.0 the following day, trended down, likely Type II AL sec to hypoperfusion/sepsis (+/- underlying stable CAD). ECG 08/[address] depressions inferior leads, improved on 08/12 tracing--cannot exclude Type I AL at time of events. -AC initially held for gross hematuria with large clots/hydronephrosis, was back on eliquis and now stopped again due to hematuria. defer aspirin -BB and afib HR control as doing -defer invasive CAD mgmt approach given poor functional status with competing mortality limitations from severe lung dz, low likelihood to improve prognosis, and risks > benefits (including bleeding, AIN) OK FOR D/C FROM CV P.O.V. d/c tele
[2018-12-31] MEDS: ESCITALOPRAM OXALATE 10 MG TABLET (FP) PO SCH (10:44)
[2018-12-31] MEDS: RAMIPRIL 2.5 MG CAPSULE (FP) PO SCH (10:44)
[2018-12-31] MEDS: ASPIRIN COATED 81 MG TABLET.EC PO SCH (10:44)
[2018-12-31] MEDS: SPIRONOLACTONE 25 MG TABLET (FP) PO SCH (10:44)
[2018-12-31] MEDS: ATENOLOL 25 MG TABLET (FP) PO SCH (10:44)
[2018-12-31] MEDS: PANTOPRAZOLE SODIUM 40 MG VIAL IVPUSH SCH (10:45)
[2018-12-31] MEDS: FUROSEMIDE 40 MG/4 ML INJECTABLE VIAL IVPUSH SCH (10:45)
[2018-12-31] MEDS: methylPREDNISolone NA SUCC 40 MG/1 ML VIAL IVPUSH SCH ×2 (10:45→23:07)
[2018-12-31] MEDS ORDERED: POTASSIUM CHLORIDE ORAL LIQUID 20 MEQ/15 ML PO ONE (11:00)
--- NOTE | 2018-12-31 12:05 | PN ---
Progress Note (short form) - Note Progress Note: PULMONARY Breathing about the same as yesterday. No chest pain. Still some cough and wheezing. Vital Signs Period Temp Pulse Resp BP Sys/Garza Pulse Ox Last 24 Hr 97.6 F-98.2 F 76-87 18-18 103-136/56-87 98-98 Gen: mildly tachypneic with speaking Heart: RRR Lung: scattered rhonchi Abd: soft, nontender Ext: + edema CBC, BMP 12/31/18 06:30 12/31/18 06:30 Active Medications Acetaminophen (Tylenol -) 650 mg PO Q6H PRN PRN Reason: Fever Or Pain Level 1-5 Last Admin: 12/30/18 23:21 Dose: 650 mg Albuterol/Ipratropium (Duoneb -) 1 amp NEB Q6H PRN PRN Reason: SHORTNESS OF BREATH Aspirin (Ecotrin -) 81 mg PO DAILY [facility] Last Admin: 12/31/18 10:44 Dose: 81 mg Atenolol (Tenormin -) 50 mg PO DAILY [facility] Last Admin: 12/31/18 10:44 Dose: 50 mg Atorvastatin Calcium (Lipitor -) 20 mg PO HS [facility] Last Admin: 12/30/18 22:12 Dose: 20 mg Escitalopram Oxalate (Lexapro -) 10 mg PO DAILY [facility] Last Admin: 12/31/18 10:44 Dose: 10 mg Furosemide (Lasix -) 40 mg PO DAILY [facility] Heparin Sodium (Porcine) (Heparin -) 5,000 unit SQ TID [facility] Last Admin: 12/31/18 06:03 Dose: 5,000 unit Methylprednisolone Sodium Succinate (Solu-Medrol -) 40 mg IVPUSH BID [facility] Last Admin: 12/31/18 10:45 Dose: 40 mg Pantoprazole Sodium (Protonix -) 40 mg PO DAILY [facility] Ramipril (Altace -) 2.5 mg PO DAILY [facility] Last Admin: 12/31/18 10:44 Dose: 2.5 mg Spironolactone (Aldactone -) 25 mg PO DAILY [facility] Last Admin: 12/31/18 10:44 Dose: 25 mg A/P Chronic Hypoxic and Hypercapneic Respiratory Failure Acute on Chronic Diastolic Heart Failure Acute COPD Exacerbation Atrial Fibrillation Sarcoidosis Pulmonary HTN HTN Leukopenia - continue lasix, aldactone - monitor urine output, creatinine - continue medrol at current dose - inhaled bronchodilators - O2 to keep SpO2 >90% - rate control - continue anticoagulation
--- NOTE | 2018-12-31 19:36 | PN ---
Teaching Attending Note Name of Resident: Ramon Sharma ATTENDING PHYSICIAN STATEMENT I saw and evaluated the patient. I reviewed the resident's note and discussed the case with the resident. I agree with the resident's findings and plan as documented. SUBJECTIVE: Patient is feeling better today. OBJECTIVE: Vital Signs Temperature 98.1 F 12/31/18 13:30 Pulse Rate 86 12/31/18 13:30 Respiratory Rate 18 12/31/18 13:30 Blood Pressure 100/65 12/31/18 13:30 O2 Sat by Pulse Oximetry (%) 98 12/31/18 16:40 GE: Elderly adult female in no obvious discomfort. Head: Normocephalic. AT. Neck: Supple, trachea is midline. Respiratory: Decreased breath sounds with scattered wheeze . No stridor, rhonchi, or rales Cardiovascular: Irregularly irregular rate and rhythm. S1S2 positive ,no rubs, clicks, or gallops. Gastrointestinal: abdomen is soft, non-tender, non-distended. Neuro: CN 2-12 grossly intact Skin: Warm, dry, and intact. No bruising, rashes, or other lesions. Extremities: pulses are positive. CBCD WBC 7.2 K/mm3 (4.0-10.0) 12/31/18 06:30 RBC 4.75 M/mm3 (3.60-5.2) 12/31/18 06:30 Hgb 10.4 GM/dL (10.7-15.3) L 12/31/18 06:30 Hct 33.7 % (32.4-45.2) 12/31/18 06:30 MCV 70.8 fl (80-96) L 12/31/18 06:30 MCHC 31.0 g/dl (32.0-36.0) L 12/31/18 06:30 RDW 18.1 % (11.6-15.6) H 12/31/18 06:30 Plt Count 178 K/MM3 (134-434) D 12/31/18 06:30 MPV 9.6 fl (7.5-11.1) 12/31/18 06:30 CMP Sodium 137 mmol/L (136-145) 12/31/18 06:30 Potassium 3.3 mmol/L (3.5-5.1) L 12/31/18 06:30 Chloride 93 mmol/L (98-107) L 12/31/18 06:30 Carbon Dioxide 40 mmol/L (21-32) H 12/31/18 06:30 Anion Gap 5 MMOL/L (8-16) L 12/31/18 06:30 BUN 35 mg/dL (7-18) H 12/31/18 06:30 Creatinine 0.8 mg/dL (0.55-1.3) 12/31/18 06:30 Creat Clearance w eGFR 68.50 (>60) 12/31/18 06:30 Random Glucose 152 mg/dL (74-106) H 12/31/18 06:30 Calcium 8.7 mg/dL (8.5-10.1) 12/31/18 06:30 Total Bilirubin 0.6 mg/dL (0.2-1) 12/29/18 05:30 AST 15 U/L (15-37) 12/29/18 05:30 ALT 18 U/L (13-61) 12/29/18 05:30 Alkaline Phosphatase 73 U/L (45-117) 12/29/18 05:30 Total Protein 6.9 g/dl (6.4-8.2) 12/29/18 05:30 Albumin 2.8 g/dl (3.4-5.0) L 12/29/18 05:30 CARDIAC ENZYMES Creatine Kinase 38 U/L (26-192) 12/28/18 11:44 Troponin I 0.09 ng/ml (0.00-0.05) H 12/28/18 11:44 Current Medications Generic Name Dose Route Start Last Admin Trade Name Emeka PRN Reason Stop Dose Admin Acetaminophen 650 mg 12/30/18 03:29 12/30/18 23:21 Tylenol - PO 650 mg Q6H PRN Administration Fever Or Pain Level 1-5 Albuterol/Ipratropium 1 amp 12/28/18 21:49 Duoneb - NEB Q6H PRN SHORTNESS OF BREATH Aspirin 81 mg 12/29/18 10:00 12/31/18 10:44 Ecotrin - PO 81 mg DAILY LISA Administration Atenolol 50 mg 12/29/18 10:00 12/31/18 10:44 Tenormin - PO 50 mg DAILY LISA Administration Atorvastatin Calcium 20 mg 12/28/18 22:00 12/30/18 22:12 Lipitor - PO 20 mg HS LISA Administration Escitalopram Oxalate 10 mg 12/29/18 10:00 12/31/18 10:44 Lexapro - PO 10 mg DAILY LISA Administration Furosemide 40 mg 01/01/19 10:00 Lasix - PO DAILY LISA Heparin Sodium (Porcine) 5,000 unit 12/29/18 14:00 12/31/18 13:27 Heparin - SQ 5,000 unit TID LISA Administration Methylprednisolone Sodium Succinate 40 mg 12/28/18 22:15 12/31/18 10:45 Solu-Medrol - IVPUSH 40 mg BID LISA Administration Pantoprazole Sodium 40 mg 01/01/19 10:00 Protonix - PO DAILY LISA Ramipril 2.5 mg 12/29/18 14:00 12/31/18 10:44 Altace - PO 2.5 mg DAILY LISA Administration Spironolactone 25 mg 12/29/18 10:00 12/31/18 10:44 Aldactone - PO 25 mg DAILY LISA Administration Home Medications Medication Instructions Recorded Atorvastatin Ca [Lipitor] 20 mg PO HS 04/16/18 Albuterol Sulfate [Proventil HFA 1 inh PO Q4H PRN 06/20/18 Inhaler -] Budesonide/Formeterol Fumarate 2 inh PO BID 06/20/18 [SYMBICORT 160/4.5mcg -] Spironolactone [Aldactone] 25 mg PO DAILY #2 tablet 09/11/18 predniSONE [Deltasone -] 5 mg PO DAILY #7 tablet 09/11/18 Escitalopram Oxalate [Lexapro -] 10 mg PO DAILY 10/06/18 Atenolol [Tenormin] 50 mg PO DAILY 11/09/18 Furosemide [Lasix -] 40 mg PO DAILY 12/20/18 Ramipril [Altace] 2.5 mg PO DAILY 12/20/18 Aspirin Coated [Ecotrin -] 81 mg PO DAILY tablet.ec 12/25/18 Chest X-ray: Report Reviewed (CXR 12/28/2018 Impression: CArdiomegaly and pulmonary congestion. increased the interstitial markings.) Cat Scan: Report Reviewed (Head CT 12-28-2018 Moderate atrophy. No gross evidence of a focal intracranial lesion or hemorrhage is seen. Read by Dr. Emmy Hendrix) EKG: Report Reviewed (EKG 12-28-2018 Afib 81bpm) ASSESSMENT AND PLAN: Patient is a 82yo female with PMHx of pernicious anemia, heart murmur, COPD, HTN , CHF, GERD, afib, hyperlipidemia and sarcoidosis who presents to the ED c/o SOB and was admitted for having hypoxia (O2 sat mid 60%). #Acute on chronic hypoxic ,hypercapneic respiratory failure due to COPD exacerbation with hx of sarcoidosis on duonebs QID PRN SOB, BIPAP prn, continue solumedrol 40mg BID Iv continue symbicort, improving, patient refusing bipap on and off , keep sao2 b/t 89-91% # Acute on chronic diastolic heart failure continue ramipril, aldactone and lasix po now , presented with BNP of 9k, cardio and pulmonary on the case appreciated. # Hx of Sarcoidosis on solumedrol continue # Hx of Permanent Afib on Asa 81, atenolol 50mg ,not on anticoagulation secondary to recent hemorrhagic cystitis # Hx of hemorrhagic cystitis, with hx of bilateral nephrostomy tubes # Hx of Klebsiella/ESBL UTI # Microcytic anemia will do Iron study on her. # Depression: lexapro 10mg daily # Hypercholesterolemia: lipitor 20mg qhs # Hx of HTN continue meds # Hx of CAD: Continue atenolol, Lipitor # hx of Pulmonary HTN DVT Px; Heparin
[2018-12-31] MEDS ORDERED: ALBUTEROL SO4 2.5/IPRATROPIUM 0.5 INH SOL 3 ML VIAL.NEB. NEB PRN (20:34)
[2018-12-31] MEDS ORDERED: ACETAMINOPHEN 325 MG TABLET (FP) PO PRN (20:34)
[2018-12-31] MEDS: ATORVASTATIN CA 20 MG TABLET (FP) PO SCH (23:07)
[2019-01-01] MEDS: HEPARIN NA (PORCINE) 5,000 UNITS/ML 1ML VIAL SQ SCH ×3 (05:54→21:33)
[2019-01-01 07:21] LABS: ARTERIAL BLOOD GAS PO2 110 mmHg (80-105); ARTERIAL BLOOD GAS pH 7.38 (7.35-7.45)
[2019-01-01 07:28] LABS: ALLENS TEST POSITIVE
[2019-01-01 07:31] LABS: ARTERIAL BLOOD GAS PCO2 70.8 mmHg (35-45)
[2019-01-01 07:31] LABS: ANION GAP 2 MMOL/L (8-16); BLOOD UREA NITROGEN 34 mg/dL (7-18); CHLORIDE 97 mmol/L (98-107); CO2 42 mmol/L (21-32); CREATININE 0.8 mg/dL (0.55-1.3); GLUCOSE,RANDOM 165 mg/dL (74-106); MAGNESIUM 2.1 mg/dL (1.8-2.4); POTASSIUM 3.7 mmol/L (3.5-5.1); SODIUM 140 mmol/L (136-145)
[2019-01-01] MEDS ORDERED: FUROSEMIDE 40 MG TABLET (FP) PO SCH (10:00)
--- NOTE | 2019-01-01 10:15 | PN ---
Progress Note, Physician Chief Complaint: sob History of Present Illness: yest confused with very hi CO2, in setting of refusing CPAP use. today not confused. admits to mild sob today. mild chest heaviness per usual copd/chf sx. no palpit, syncope - Current Medication List Current Medications: Active Medications Acetaminophen (Tylenol -) 650 mg PO Q6H PRN PRN Reason: FEVER Albuterol/Ipratropium (Duoneb -) 1 amp NEB Q6H PRN PRN Reason: SHORTNESS OF BREATH Aspirin (Ecotrin -) 81 mg PO DAILY [facility] Atenolol (Tenormin -) 50 mg PO DAILY [facility] Atorvastatin Calcium (Lipitor -) 20 mg PO HS [facility] Last Admin: 12/31/18 23:07 Dose: 20 mg Escitalopram Oxalate (Lexapro -) 10 mg PO DAILY [facility] Furosemide (Lasix -) 40 mg PO DAILY [facility] Heparin Sodium (Porcine) (Heparin -) 5,000 unit SQ TID [facility] Last Admin: 01/01/19 05:54 Dose: 5,000 unit Methylprednisolone Sodium Succinate (Solu-Medrol -) 40 mg IVPUSH BID [facility] Last Admin: 12/31/18 23:07 Dose: 40 mg Pantoprazole Sodium (Protonix -) 40 mg PO DAILY [facility] Potassium Chloride (K-Dur -) 20 meq PO BID [facility] Stop: 01/02/19 09:59 Ramipril (Altace -) 2.5 mg PO DAILY [facility] Spironolactone (Aldactone -) 25 mg PO DAILY [facility] - Objective Vital Signs: Vital Signs Temperature 97.6 F 01/01/19 06:00 Pulse Rate 88 01/01/19 06:00 Respiratory Rate 18 01/01/19 06:00 Blood Pressure 131/78 01/01/19 06:00 O2 Sat by Pulse Oximetry (%) 100 12/31/18 21:00 Constitutional: Yes: Well Nourished, No Distress, Calm Cardiovascular: Yes: Regular Rate and Rhythm, JVD, Murmur (soft syst murmur LLSB ), S1, S2. No: Gallop Respiratory: Yes: Regular, CTA Bilaterally. No: Accessory Muscle Use, Rales, Wheezes Extremities: No: Cold Edema: No Neurological: Yes: Alert. No: Seizure Psychiatric: No: Agitated Labs: CBC, BMP 12/31/18 06:30 01/01/19 06:00 INR, PTT INR 1.16 (0.83-1.09) H 12/28/18 15:35 Assessment/Plan Echo 05/03: nl LVEF. mild RVE, mild-mod RV hypo. L/NEENA. mod MR/TR. RVSP at least 88 mmHg Echo 03/2017: Mild conc lvh. nl lv/rv size/fn, mod ronnie, mod mr, mod tr, rvsp 40- 50 EKG: afib rate okay, no ischemic changes CXR mild congestive changes Echo 07/2018 nl LV function, LA mod/severely dilated. RA mod dilated. Mod MR. Mod TR. RVSP elevated at 74 mmHG. tele: AF, hr controlled Assessment/Plan 81F h/o afib, CHF, COPD (on home O2 2L), HTN, pulm HTN, hematuria s/p b/l perc nephrostomy sent from [place] for chest tightness, shortness of breath, UTI acute on chronic diastolic HF exacerbation, pulm sarcoid, advanced COPD, cor pulmonale with RV failure, history of chronic hypoxemic/hypercapneic resp failure: - on lasix 40 mg daily as outpatient (recent decomp requiring IV lasix after diuretics held as outpt) - BNP 9900 (range 1K-10K) - CXR mild congestion, sob and edema have improved but still some dyspnea, mild JVD - weight stable compared to discharge (161 lbs, although this is bed weight) - received lasix 40 mg IV x 2 doses - continue atenolol, spironolactone - 12/29: change lasix to 40 mg IV daily - 12/30: do not think JVD will completely resolve, even when she is at her target wt/volume status (likely due to high R sided pressure). remains mild JVD , sx's much improved (note: chest heaviness is her typical sx of pulm decompensation/chf). continue lasix 40 IV qd for now. anticipate she will be ready for discharge cv-rojas in 24-48 hrs. - 12/31: clinically much improved, no sx's or volume. change lasix 40 IV qd to 40 PO qd. - 01/01: well-compensated. cont PO lasix as doing. Elevated troponin - trop indeterminate range, stable compared to prior values - EKG unchanged - no suspected angina (sx's typical of her prior resp exacerbation episodes) afib: - HR control mostly good, cont bb - holding eliquis for hx of severe hematuria, anemia - cont aspirin COPD - manage per primary HLD - continue statin cad, NSTEMI, staph bacteremia 07/2018: -periop hypotension 08/11 during cysto, briefly on pressors. likely due to bacteremia, overdiuresis -trop 2.0 the following day, trended down, likely Type II SC sec to hypoperfusion/sepsis (+/- underlying stable CAD). ECG 08/[address] depressions inferior leads, improved on 08/12 tracing--cannot exclude Type I SC at time of events. -AC initially held for gross hematuria with large clots/hydronephrosis, was back on eliquis and now stopped again due to hematuria. defer aspirin -BB and afib HR control as doing -defer invasive CAD mgmt approach given poor functional status with competing mortality limitations from severe lung dz, low likelihood to improve prognosis, and risks > benefits (including bleeding, AIN) OK FOR D/C FROM CV P.O.V. d/c tele
[2019-01-01] MEDS: SPIRONOLACTONE 25 MG TABLET (FP) PO SCH (10:35)
[2019-01-01] MEDS: FUROSEMIDE 40 MG TABLET (FP) PO SCH (10:35)
[2019-01-01] MEDS: ASPIRIN COATED 81 MG TABLET.EC PO SCH (10:35)
[2019-01-01] MEDS: ESCITALOPRAM OXALATE 10 MG TABLET (FP) PO SCH (10:35)
[2019-01-01] MEDS: PANTOPRAZOLE 40 MG TABLET (FP) PO SCH (10:35)
[2019-01-01] MEDS: POTASSIUM CHLORIDE TABS 20 MEQ TABLET.ER (FP) PO SCH ×2 (10:35→21:33)
[2019-01-01] MEDS: RAMIPRIL 2.5 MG CAPSULE (FP) PO SCH (10:35)
[2019-01-01] MEDS: ATENOLOL 25 MG TABLET (FP) PO SCH (10:36)
[2019-01-01] MEDS: methylPREDNISolone NA SUCC 40 MG/1 ML VIAL IVPUSH SCH ×2 (10:36→21:34)
--- NOTE | 2019-01-01 14:23 | PN ---
Progress Note (short form) - Note Progress Note: Resting in NAD. Apparently was very confused yesterday. ABG: compensated chronic respiratory acidosis. Intake & Output 12/29/18 12/30/18 12/31/18 01/01/19 23:59 23:59 23:59 23:59 Intake Total 600 1410 450 Balance 600 1410 450 Weight 161 lb 8 oz 155 lb 9.6 oz Last Vital Signs Temp Pulse Resp BP Pulse Ox 97.6 F 88 18 131/78 100 01/01/19 06:00 01/01/19 06:00 01/01/19 06:00 01/01/19 06:00 12/31/18 21:00 Active Medications Acetaminophen (Tylenol -) 650 mg PO Q6H PRN PRN Reason: FEVER Albuterol/Ipratropium (Duoneb -) 1 amp NEB Q6H PRN PRN Reason: SHORTNESS OF BREATH Aspirin (Ecotrin -) 81 mg PO DAILY [facility] Last Admin: 01/01/19 10:35 Dose: 81 mg Atenolol (Tenormin -) 50 mg PO DAILY [facility] Last Admin: 01/01/19 10:36 Dose: 50 mg Atorvastatin Calcium (Lipitor -) 20 mg PO HS [facility] Last Admin: 12/31/18 23:07 Dose: 20 mg Escitalopram Oxalate (Lexapro -) 10 mg PO DAILY [facility] Last Admin: 01/01/19 10:35 Dose: 10 mg Furosemide (Lasix -) 40 mg PO DAILY [facility] Last Admin: 01/01/19 10:35 Dose: 40 mg Heparin Sodium (Porcine) (Heparin -) 5,000 unit SQ TID [facility] Last Admin: 01/01/19 05:54 Dose: 5,000 unit Methylprednisolone Sodium Succinate (Solu-Medrol -) 40 mg IVPUSH BID [facility] Last Admin: 01/01/19 10:36 Dose: 40 mg Pantoprazole Sodium (Protonix -) 40 mg PO DAILY [facility] Last Admin: 01/01/19 10:35 Dose: 40 mg Potassium Chloride (K-Dur -) 20 meq PO BID [facility] Stop: 01/02/19 09:59 Last Admin: 01/01/19 10:35 Dose: 20 meq Ramipril (Altace -) 2.5 mg PO DAILY [facility] Last Admin: 01/01/19 10:35 Dose: 2.5 mg Spironolactone (Aldactone -) 25 mg PO DAILY [facility] Last Admin: 01/01/19 10:35 Dose: 25 mg Gen: mildly tachypneic with speaking Heart: RRR Lung: scattered rhonchi Abd: soft, nontender Ext: + edema Laboratory Results - last 24 hr 01/01/19 01/01/19 06:00 07:10 Anticoagulation Therapy No Result Required. Puncture Site Right radial ABG pH 7.38 ABG pCO2 at Pt Temp 70.8 H* ABG pO2 at Pt Temp 110 H ABG HCO3 41.3 H ABG O2 Sat (Measured) 98.0 ABG O2 Content 14.3 L ABG Base Excess 14.0 H Junior Test Positive O2 Delivery Device Nasal cannulla Oxygen Flow Rate 2l Vent Mode No Result Required. Vent Rate No Result Required. Mechanical Rate No Result Required. Pressure Support Vent No Result Required. Sodium 140 Potassium 3.7 Chloride 97 L Carbon Dioxide 42 H Anion Gap 2 L BUN 34 H Creatinine 0.8 Creat Clearance w eGFR 68.50 Random Glucose 165 H Calcium 8.0 L Magnesium 2.1 Ferritin 130.7 A/P Chronic Hypoxic and Hypercapneic Respiratory Failure Acute on Chronic Diastolic Heart Failure Acute COPD Exacerbation Atrial Fibrillation Sarcoidosis Pulmonary HTN HTN Leukopenia - O2 @ 1 L NC - NIPPV as tolerated QHS and PRN - continue lasix, aldactone - monitor urine output, creatinine - Can likely D/C Medrol in the AM - inhaled bronchodilators - O2 to keep SpO2 >90% - rate control - continue anticoagulation Dr Salinas Problem List - Problems (1) Altered mental status Code(s): R41.82 - ALTERED MENTAL STATUS, UNSPECIFIED Qualifiers: Altered mental status type: somnolence Qualified Code(s): R40.0 - Somnolence (2) COPD (chronic obstructive pulmonary disease) Code(s): J44.9 - CHRONIC OBSTRUCTIVE PULMONARY DISEASE, UNSPECIFIED Qualifiers: COPD type: unspecified COPD Qualified Code(s): J44.9 - Chronic obstructive pulmonary disease, unspecified (3) Shortness of breath at rest Code(s): R06.02 - SHORTNESS OF BREATH (4) Acute CHF (congestive heart failure) Code(s): I50.9 - HEART FAILURE, UNSPECIFIED (5) Coronary artery disease Code(s): I25.10 - ATHSCL HEART DISEASE OF [place] CORONARY ARTERY W/O ANG PCTRS Qualifiers: Coronary Disease-Associated Artery/Lesion type: [place] artery [place] vs. transplanted heart: [place] heart Associated angina: without angina Qualified Code(s): I25.10 - Atherosclerotic heart disease of [place] coronary artery without angina pectoris (6) Hypercholesterolemia Code(s): E78.00 - PURE HYPERCHOLESTEROLEMIA, UNSPECIFIED (7) Hypertension Code(s): I10 - ESSENTIAL (PRIMARY) HYPERTENSION Qualifiers: Hypertension type: essential hypertension Qualified Code(s): I10 - Essential (primary) hypertension (8) Hypoxia Code(s): R09.02 - HYPOXEMIA (9) Pulmonary HTN Code(s): I27.20 - PULMONARY HYPERTENSION, UNSPECIFIED (10) Shortness of breath Code(s): R06.02 - SHORTNESS OF BREATH (11) Atrial fibrillation Code(s): I48.91 - UNSPECIFIED ATRIAL FIBRILLATION Qualifiers: Atrial fibrillation type: permanent Qualified Code(s): I48.2 - Chronic atrial fibrillation (12) Sarcoidosis Code(s): D86.9 - SARCOIDOSIS, UNSPECIFIED
--- NOTE | 2019-01-01 16:52 | PN ---
Physical Exam: SUBJECTIVE: Patient seen and examined at bedside. No acute events overnight. OBJECTIVE: Vital Signs Period Temp Pulse Resp BP Sys/Garza Pulse Ox Last 24 Hr 97.6 F-98.1 F 81-88 18-18 118-131/67-78 97-100 GENERAL: AAOX3 NAD. On 2L NC HEAD: NC/AT EYES: EOMI Sclera clear ENT: MMM NECK: Trachea midline, full range of motion, supple. LUNGS: crackles b/l. HEART: irregularly irregular ABDOMEN: soft nondistended nontender EXTREMITIES: Trace edema NEUROLOGICAL: Cranial nerves II through XII grossly intact. PSYCH: Normal mood, normal affect. SKIN: No rashes or lesions appreciated Laboratory Results - last 24 hr 01/01/19 01/01/19 06:00 07:10 Anticoagulation Therapy No Result Required. Puncture Site Right radial ABG pH 7.38 ABG pCO2 at Pt Temp 70.8 H* ABG pO2 at Pt Temp 110 H ABG HCO3 41.3 H ABG O2 Sat (Measured) 98.0 ABG O2 Content 14.3 L ABG Base Excess 14.0 H Junior Test Positive O2 Delivery Device Nasal cannulla Oxygen Flow Rate 2l Vent Mode No Result Required. Vent Rate No Result Required. Mechanical Rate No Result Required. Pressure Support Vent No Result Required. Sodium 140 Potassium 3.7 Chloride 97 L Carbon Dioxide 42 H Anion Gap 2 L BUN 34 H Creatinine 0.8 Creat Clearance w eGFR 68.50 Random Glucose 165 H Calcium 8.0 L Magnesium 2.1 Ferritin 130.7 Active Medications Generic Name Dose Route Start Last Admin Trade Name Freq PRN Reason Stop Dose Admin Acetaminophen 650 mg 12/31/18 20:34 Tylenol - PO Q6H PRN FEVER Albuterol/Ipratropium 1 amp 12/31/18 20:34 Duoneb - NEB Q6H PRN SHORTNESS OF BREATH Aspirin 81 mg 01/01/19 10:00 01/01/19 10:35 Ecotrin - PO 81 mg DAILY [facility] Administration Atenolol 50 mg 01/01/19 10:00 01/01/19 10:36 Tenormin - PO 50 mg DAILY [facility] Administration Atorvastatin Calcium 20 mg 12/31/18 22:00 12/31/18 23:07 Lipitor - PO 20 mg HS [facility] Administration Escitalopram Oxalate 10 mg 01/01/19 10:00 01/01/19 10:35 Lexapro - PO 10 mg DAILY [facility] Administration Furosemide 40 mg 01/01/19 10:00 01/01/19 10:35 Lasix - PO 40 mg DAILY [facility] Administration Heparin Sodium (Porcine) 5,000 unit 12/31/18 22:00 01/01/19 15:04 Heparin - SQ 5,000 unit TID [facility] Administration Methylprednisolone Sodium Succinate 40 mg 12/31/18 22:00 01/01/19 10:36 Solu-Medrol - IVPUSH 40 mg BID [facility] Administration Pantoprazole Sodium 40 mg 01/01/19 10:00 01/01/19 10:35 Protonix - PO 40 mg DAILY [facility] Administration Potassium Chloride 20 meq 01/01/19 10:00 01/01/19 10:35 K-Dur - PO 01/02/19 09:59 20 meq BID [facility] Administration Ramipril 2.5 mg 01/01/19 10:00 01/01/19 10:35 Altace - PO 2.5 mg DAILY [facility] Administration Spironolactone 25 mg 01/01/19 10:00 01/01/19 10:35 Aldactone - PO 25 mg DAILY [facility] Administration ASSESSMENT/PLAN: 81F h/o afib, CHF, COPD (on home O2 2L), HTN, pulm HTN, hematuria s/p b/l perc nephrostomy sent from [place] for chest tightness, shortness of breath, UTI #Acote on Chronic DCHF - on lasix 40 mg daily as outpatient - BNP > 9000 - CXR mild congestion, sob and edema have improved but still some dyspnea, mild JVD - weight stable compared to discharge (161 lbs, although this is bed weight) - received lasix 40 mg IV x 2 doses - continue atenolol 50 mg daily, spironolactone - lasix 40 mg PO daily -Cardiology on board -NIPPV as tolerated QHS and PRN Per pulm- likely d/c Medrol in am #Elevated troponin - trop indeterminate range, stable compared to prior values - EKG unchanged, less likely ACS #Atrial Fibrillation: - Pt on Tenormin 50 mg daily. Pt is rate controlled. - Pt's [id number] 4-5. Should be on anticoagulation however has h/o hemorrhagic cystitis. - cont aspirin #COPD - home pred 5mg on hold, - solumedrol 40mg BID IV -continue symbicort #HLD - continue statin FEN No Fluids Monitor Electrolytes Sodium controlled diet DVT ppx: SCD's Dispo: Tele Visit type - Emergency Visit Emergency Visit: Yes ED Registration Date: 12/28/18 Care time: The patient presented to the Emergency Department on the above date and was hospitalized for further evaluation of their emergent condition. - New Patient This patient is new to me today: No - Critical Care Critical Care patient: No - Discharge Referral Referred to [facility] Med P.C.: No
--- NOTE | 2019-01-01 20:27 | PN ---
Teaching Attending Note Name of Resident: Marco A Colon ATTENDING PHYSICIAN STATEMENT I saw and evaluated the patient. I reviewed the resident's note and discussed the case with the resident. I agree with the resident's findings and plan as documented. SUBJECTIVE: Patient is feeling better with no acute distress. on and bipap. awake today and not confused today OBJECTIVE: Vital Signs Temperature 97.8 F 01/01/19 18:00 Pulse Rate 82 01/01/19 18:00 Respiratory Rate 18 01/01/19 18:00 Blood Pressure 127/77 01/01/19 18:00 O2 Sat by Pulse Oximetry (%) 97 01/01/19 15:16 GE: Elderly adult female in no obvious discomfort. Head: Normocephalic. AT. Neck: Supple, trachea is midline. Respiratory: Decreased breath sounds with scattered wheeze . No stridor, rhonchi, or rales Cardiovascular: Irregularly irregular rate and rhythm. S1S2 positive ,no rubs, clicks, or gallops. Gastrointestinal: abdomen is soft, non-tender, non-distended. Neuro: CN 2-12 grossly intact Skin: Warm, dry, and intact. No bruising, rashes, or other lesions. Extremities: pulses are positive. CBCD WBC 7.2 K/mm3 (4.0-10.0) 12/31/18 06:30 RBC 4.75 M/mm3 (3.60-5.2) 12/31/18 06:30 Hgb 10.4 GM/dL (10.7-15.3) L 12/31/18 06:30 Hct 33.7 % (32.4-45.2) 12/31/18 06:30 MCV 70.8 fl (80-96) L 12/31/18 06:30 MCHC 31.0 g/dl (32.0-36.0) L 12/31/18 06:30 RDW 18.1 % (11.6-15.6) H 12/31/18 06:30 Plt Count 178 K/MM3 (134-434) D 12/31/18 06:30 MPV 9.6 fl (7.5-11.1) 12/31/18 06:30 CMP Sodium 140 mmol/L (136-145) 01/01/19 06:00 Potassium 3.7 mmol/L (3.5-5.1) 01/01/19 06:00 Chloride 97 mmol/L (98-107) L 01/01/19 06:00 Carbon Dioxide 42 mmol/L (21-32) H 01/01/19 06:00 Anion Gap 2 MMOL/L (8-16) L 01/01/19 06:00 BUN 34 mg/dL (7-18) H 01/01/19 06:00 Creatinine 0.8 mg/dL (0.55-1.3) 01/01/19 06:00 Creat Clearance w eGFR 68.50 (>60) 01/01/19 06:00 Random Glucose 165 mg/dL (74-106) H 01/01/19 06:00 Calcium 8.0 mg/dL (8.5-10.1) L 01/01/19 06:00 Total Bilirubin 0.6 mg/dL (0.2-1) 12/29/18 05:30 AST 15 U/L (15-37) 12/29/18 05:30 ALT 18 U/L (13-61) 12/29/18 05:30 Alkaline Phosphatase 73 U/L (45-117) 12/29/18 05:30 Total Protein 6.9 g/dl (6.4-8.2) 12/29/18 05:30 Albumin 2.8 g/dl (3.4-5.0) L 12/29/18 05:30 CARDIAC ENZYMES Creatine Kinase 38 U/L (26-192) 12/28/18 11:44 Troponin I 0.09 ng/ml (0.00-0.05) H 12/28/18 11:44 Current Medications Generic Name Dose Route Start Last Admin Trade Name Freq PRN Reason Stop Dose Admin Acetaminophen 650 mg 12/31/18 20:34 Tylenol - PO Q6H PRN FEVER Albuterol/Ipratropium 1 amp 12/31/18 20:34 Duoneb - NEB Q6H PRN SHORTNESS OF BREATH Aspirin 81 mg 01/01/19 10:00 01/01/19 10:35 Ecotrin - PO 81 mg DAILY [facility] Administration Atenolol 50 mg 01/01/19 10:00 01/01/19 10:36 Tenormin - PO 50 mg DAILY [facility] Administration Atorvastatin Calcium 20 mg 12/31/18 22:00 12/31/18 23:07 Lipitor - PO 20 mg HS [facility] Administration Escitalopram Oxalate 10 mg 01/01/19 10:00 01/01/19 10:35 Lexapro - PO 10 mg DAILY [facility] Administration Furosemide 40 mg 01/01/19 10:00 01/01/19 10:35 Lasix - PO 40 mg DAILY [facility] Administration Heparin Sodium (Porcine) 5,000 unit 12/31/18 22:00 01/01/19 15:04 Heparin - SQ 5,000 unit TID [facility] Administration Methylprednisolone Sodium Succinate 40 mg 12/31/18 22:00 01/01/19 10:36 Solu-Medrol - IVPUSH 40 mg BID [facility] Administration Pantoprazole Sodium 40 mg 01/01/19 10:00 01/01/19 10:35 Protonix - PO 40 mg DAILY [facility] Administration Potassium Chloride 20 meq 01/01/19 10:00 01/01/19 10:35 K-Dur - PO 01/02/19 09:59 20 meq BID [facility] Administration Ramipril 2.5 mg 01/01/19 10:00 01/01/19 10:35 Altace - PO 2.5 mg DAILY [facility] Administration Spironolactone 25 mg 01/01/19 10:00 01/01/19 10:35 Aldactone - PO 25 mg DAILY [facility] Administration Home Medications Medication Instructions Recorded Atorvastatin Ca [Lipitor] 20 mg PO HS 04/16/18 Albuterol Sulfate [Proventil HFA 1 inh PO Q4H PRN 06/20/18 Inhaler -] Budesonide/Formeterol Fumarate 2 inh PO BID 06/20/18 [SYMBICORT 160/4.5mcg -] Spironolactone [Aldactone] 25 mg PO DAILY #2 tablet 09/11/18 predniSONE [Deltasone -] 5 mg PO DAILY #7 tablet 09/11/18 Escitalopram Oxalate [Lexapro -] 10 mg PO DAILY 10/06/18 Atenolol [Tenormin] 50 mg PO DAILY 11/09/18 Furosemide [Lasix -] 40 mg PO DAILY 12/20/18 Ramipril [Altace] 2.5 mg PO DAILY 12/20/18 Aspirin Coated [Ecotrin -] 81 mg PO DAILY tablet.ec 12/25/18 Chest X-ray: Report Reviewed (CXR 12/28/2018 Impression: CArdiomegaly and pulmonary congestion. increased the interstitial markings.) Cat Scan: Report Reviewed (Head CT 12-28-2018 Moderate atrophy. No gross evidence of a focal intracranial lesion or hemorrhage is seen. Read by Dr. Emmy Hendrix) EKG: Report Reviewed (EKG 12-28-2018 Afib 81bpm) Laboratory Tests 01/01/19 01/01/19 06:00 06:00 Iron 67 TIBC 244 L Iron Saturation 27 Transferrin 206 Ferritin 130.7 SSESSMENT AND PLAN: Patient is a 82yo female with PMHx of pernicious anemia, heart murmur, COPD, HTN , CHF, GERD, afib, hyperlipidemia and sarcoidosis who presents to the ED c/o SOB and was admitted for having hypoxia (O2 sat mid 60%). #Acute on chronic hypoxic ,hypercapneic respiratory failure improving due to COPD exacerbation with hx of sarcoidosis on duonebs QID PRN SOB, BIPAP prn, continue solumedrol 40mg BID Iv continue symbicort, improving, patient refusing bipap on and off , keep sa02 b/t 89-91% # Acute on chronic diastolic heart failure continue ramipril, aldactone and lasix po now , presented with BNP of 9k, cardio and pulmonary on the case appreciated. # Hx of Sarcoidosis on solumedrol continue # Hx of Permanent Afib on Asa 81, atenolol 50mg ,not on anticoagulation secondary to recent hemorrhagic cystitis # Hx of hemorrhagic cystitis, with hx of bilateral nephrostomy tubes # Hx of Klebsiella/ESBL UTI # Microcytic anemia , iron studies are within nl limit. # Depression: lexapro 10mg daily # Hypercholesterolemia: lipitor 20mg qhs # Hx of HTN continue meds # Hx of CAD: Continue atenolol, Lipitor # hx of Pulmonary HTN DVT Px; Heparin
[2019-01-01] MEDS: ATORVASTATIN CA 20 MG TABLET (FP) PO SCH (21:33)
[2019-01-02 04:15] LABS: SERUM IRON SATURATION 27 % (15-55); TOTAL IRON BINDING CAPACITY 244 ug/dL (250-450); UIBC 177 ug/dL (118-369)
[2019-01-02] MEDS: HEPARIN NA (PORCINE) 5,000 UNITS/ML 1ML VIAL SQ SCH ×3 (04:59→21:54)
--- NOTE | 2019-01-02 12:00 | PN ---
Progress Note (short form) - Note Progress Note: cc: no SOB, palps, dizziness, lightheadedness History of Present Illness: Current Medications Acetaminophen (Tylenol -) 650 mg PO Q6H PRN PRN Reason: FEVER Albuterol/Ipratropium (Duoneb -) 1 amp NEB Q6H PRN PRN Reason: SHORTNESS OF BREATH Aspirin (Ecotrin -) 81 mg PO DAILY [facility] Last Admin: 01/01/19 10:35 Dose: 81 mg Atenolol (Tenormin -) 50 mg PO DAILY [facility] Last Admin: 01/01/19 10:36 Dose: 50 mg Atorvastatin Calcium (Lipitor -) 20 mg PO HS [facility] Last Admin: 01/01/19 21:33 Dose: 20 mg Escitalopram Oxalate (Lexapro -) 10 mg PO DAILY [facility] Last Admin: 01/01/19 10:35 Dose: 10 mg Furosemide (Lasix -) 40 mg PO DAILY [facility] Last Admin: 01/01/19 10:35 Dose: 40 mg Heparin Sodium (Porcine) (Heparin -) 5,000 unit SQ TID [facility] Last Admin: 01/02/19 04:59 Dose: 5,000 unit Methylprednisolone Sodium Succinate (Solu-Medrol -) 40 mg IVPUSH BID [facility] Last Admin: 01/01/19 21:34 Dose: 40 mg Pantoprazole Sodium (Protonix -) 40 mg PO DAILY [facility] Last Admin: 01/01/19 10:35 Dose: 40 mg Ramipril (Altace -) 2.5 mg PO DAILY [facility] Last Admin: 01/01/19 10:35 Dose: 2.5 mg Spironolactone (Aldactone -) 25 mg PO DAILY [facility] Last Admin: 01/01/19 10:35 Dose: 25 mg - Objective Vital Signs Period Temp Pulse Resp BP Sys/Garza Pulse Ox Last 24 Hr 97.4 F-98.7 F 62-82 17-18 110-127/60-77 97-100 Constitutional: Yes: Well Nourished, No Distress, Calm Cardiovascular: Yes: Regular Rate and Rhythm, JVD, Murmur (soft syst murmur LLSB ), S1, S2. No: Gallop Respiratory: Yes: Regular, CTA Bilaterally. No: Accessory Muscle Use, Rales, Wheezes Extremities: No: Cold Edema: No Neurological: Yes: Alert. No: Seizure Psychiatric: No: Agitated Assessment/Plan Echo 05/03: nl LVEF. mild RVE, mild-mod RV hypo. L/NEENA. mod MR/TR. RVSP at least 88 mmHg Echo 03/2017: Mild conc lvh. nl lv/rv size/fn, mod ronnie, mod mr, mod tr, rvsp 40- 50 EKG: afib rate okay, no ischemic changes CXR mild congestive changes Echo 07/2018 nl LV function, LA mod/severely dilated. RA mod dilated. Mod MR. Mod TR. RVSP elevated at 74 mmHG. Assessment/Plan 81F h/o afib, CHF, COPD (on home O2 2L), HTN, pulm HTN, hematuria s/p b/l perc nephrostomy sent from [place] for chest tightness, shortness of breath, UTI acute on chronic diastolic HF exacerbation, pulm sarcoid, advanced COPD, cor pulmonale with RV failure, history of chronic hypoxemic/hypercapneic resp failure: - on lasix 40 mg daily as outpatient (recent decomp requiring IV lasix after diuretics held as outpt) - BNP 9900 (range 1K-10K) - CXR mild congestion, sob and edema have improved but still some dyspnea, mild JVD - weight stable compared to discharge (161 lbs, although this is bed weight) - received lasix 40 mg IV x 2 doses - continue atenolol, spironolactone - 12/29: change lasix to 40 mg IV daily - 12/30: do not think JVD will completely resolve, even when she is at her target wt/volume status (likely due to high R sided pressure). remains mild JVD , sx's much improved (note: chest heaviness is her typical sx of pulm decompensation/chf). continue lasix 40 IV qd for now. anticipate she will be ready for discharge cv-rojas in 24-48 hrs. - 12/31: clinically much improved, no sx's or volume. change lasix 40 IV qd to 40 PO qd. - 01/01-: well-compensated. cont PO lasix as doing. Elevated troponin - trop indeterminate range, stable compared to prior values - EKG unchanged - no suspected angina (sx's typical of her prior resp exacerbation episodes) afib: - HR control mostly good, cont bb - holding eliquis for hx of severe hematuria, anemia - cont aspirin COPD - manage per primary HLD - continue statin cad, NSTEMI, staph bacteremia 07/2018: -periop hypotension 08/11 during cysto, briefly on pressors. 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 ECG 08/[address]ressions inferior leads, improved on 08/12 tracing--cannot exclude Type I MD at time of events. -AC initially held for gross hematuria with large clots/hydronephrosis, was back on eliquis and now stopped again due to hematuria. defer aspirin -BB and afib HR control as doing -defer invasive CAD mgmt approach given poor functional status with competing mortality limitations from severe lung dz, low likelihood to improve prognosis, and risks > benefits (including bleeding, AIN) OK FOR D/C FROM [facility]
[2019-01-02] MEDS: ATENOLOL 25 MG TABLET (FP) PO SCH (12:19)
[2019-01-02] MEDS: methylPREDNISolone NA SUCC 40 MG/1 ML VIAL IVPUSH SCH ×2 (12:19→21:54)
[2019-01-02] MEDS: SPIRONOLACTONE 25 MG TABLET (FP) PO SCH (12:20)
[2019-01-02] MEDS: FUROSEMIDE 40 MG TABLET (FP) PO SCH (12:20)
[2019-01-02] MEDS: ESCITALOPRAM OXALATE 10 MG TABLET (FP) PO SCH (12:20)
[2019-01-02] MEDS: RAMIPRIL 2.5 MG CAPSULE (FP) PO SCH (12:20)
[2019-01-02] MEDS: ASPIRIN COATED 81 MG TABLET.EC PO SCH (12:20)
[2019-01-02] MEDS: PANTOPRAZOLE 40 MG TABLET (FP) PO SCH (12:20)
--- NOTE | 2019-01-02 13:13 | PN ---
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,feeling better,less dyspneic,on nasal cannula - Current Medication List Current Medications: Active Medications Acetaminophen (Tylenol -) 650 mg PO Q6H PRN PRN Reason: FEVER Albuterol/Ipratropium (Duoneb -) 1 amp NEB Q6H PRN PRN Reason: SHORTNESS OF BREATH Aspirin (Ecotrin -) 81 mg PO DAILY [facility] Last Admin: 01/02/19 12:20 Dose: 81 mg Atenolol (Tenormin -) 50 mg PO DAILY [facility] Last Admin: 01/02/19 12:19 Dose: 50 mg Atorvastatin Calcium (Lipitor -) 20 mg PO HS [facility] Last Admin: 01/01/19 21:33 Dose: 20 mg Escitalopram Oxalate (Lexapro -) 10 mg PO DAILY [facility] Last Admin: 01/02/19 12:20 Dose: 10 mg Furosemide (Lasix -) 40 mg PO DAILY [facility] Last Admin: 01/02/19 12:20 Dose: 40 mg Heparin Sodium (Porcine) (Heparin -) 5,000 unit SQ TID [facility] Last Admin: 01/02/19 04:59 Dose: 5,000 unit Methylprednisolone Sodium Succinate (Solu-Medrol -) 40 mg IVPUSH BID [facility] Last Admin: 01/02/19 12:19 Dose: 40 mg Pantoprazole Sodium (Protonix -) 40 mg PO DAILY [facility] Last Admin: 01/02/19 12:20 Dose: 40 mg Ramipril (Altace -) 2.5 mg PO DAILY [facility] Last Admin: 01/02/19 12:20 Dose: 2.5 mg Spironolactone (Aldactone -) 25 mg PO DAILY [facility] Last Admin: 01/02/19 12:20 Dose: 25 mg - Objective Vital Signs: Vital Signs Temperature 97.4 F L 01/02/19 11:00 Pulse Rate 74 01/02/19 11:00 Respiratory Rate 18 01/02/19 11:00 Blood Pressure 119/56 L 01/02/19 11:00 O2 Sat by Pulse Oximetry (%) 97 01/02/19 11:32 Constitutional: Yes: Well Nourished, Calm Eyes: Yes: WNL HENT: Yes: WNL Neck: Yes: WNL Cardiovascular: Yes: Pulse Irregular, S1, S2 Respiratory: Yes: Diminished, Rhonchi (FEW SCATTERED RHONCHI) Gastrointestinal: Yes: Normal Bowel Sounds, Soft Extremities: Yes: WNL Edema: No Labs: CBC, BMP 12/31/18 06:30 Assessment/Plan A/P Chronic Hypoxic and Hypercapneic Respiratory Failure Acute on Chronic Diastolic Heart Failure Acute COPD Exacerbation Atrial Fibrillation Sarcoidosis Pulmonary HTN HTN Leukopenia - lasix, aldactone - monitor urine output, creatinine - medrol at current dose - inhaled bronchodilators - O2 to keep SpO2 >90% - rate control - anticoagulation - nasal o2 - nippv as needed DR ALBERT
--- NOTE | 2019-01-02 16:33 | PN ---
Teaching Attending Note Name of Resident: Marco A Colon ATTENDING PHYSICIAN STATEMENT I saw and evaluated the patient. I reviewed the resident's note and discussed the case with the resident. I agree with the resident's findings and plan as documented. SUBJECTIVE: Patient is better today with no acute distress, on bipap. OBJECTIVE: Vital Signs Temperature 98.3 F 01/02/19 14:50 Pulse Rate 109 H 01/02/19 14:50 Respiratory Rate 20 01/02/19 14:50 Blood Pressure 110/58 L 01/02/19 14:50 O2 Sat by Pulse Oximetry (%) 97 01/02/19 11:32 GE: Elderly adult female in no obvious discomfort. Head: Normocephalic. AT. Neck: Supple, trachea is midline. Respiratory: Decreased breath sounds with scattered wheeze . No stridor, rhonchi, or rales Cardiovascular: Irregularly irregular rate and rhythm. S1S2 positive ,no rubs, clicks, or gallops. Gastrointestinal: abdomen is soft, NT, ND, Neuro: CN 2-12 grossly intact Skin: Warm, dry, and intact. Extremities: pulses are positive. CBCD WBC 7.2 K/mm3 (4.0-10.0) 12/31/18 06:30 RBC 4.75 M/mm3 (3.60-5.2) 12/31/18 06:30 Hgb 10.4 GM/dL (10.7-15.3) L 12/31/18 06:30 Hct 33.7 % (32.4-45.2) 12/31/18 06:30 MCV 70.8 fl (80-96) L 12/31/18 06:30 MCHC 31.0 g/dl (32.0-36.0) L 12/31/18 06:30 RDW 18.1 % (11.6-15.6) H 12/31/18 06:30 Plt Count 178 K/MM3 (134-434) D 12/31/18 06:30 MPV 9.6 fl (7.5-11.1) 12/31/18 06:30 CMP Sodium 140 mmol/L (136-145) 01/01/19 06:00 Potassium 3.7 mmol/L (3.5-5.1) 01/01/19 06:00 Chloride 97 mmol/L (98-107) L 01/01/19 06:00 Carbon Dioxide 42 mmol/L (21-32) H 01/01/19 06:00 Anion Gap 2 MMOL/L (8-16) L 01/01/19 06:00 BUN 34 mg/dL (7-18) H 01/01/19 06:00 Creatinine 0.8 mg/dL (0.55-1.3) 01/01/19 06:00 Creat Clearance w eGFR 68.50 (>60) 01/01/19 06:00 Random Glucose 165 mg/dL (74-106) H 01/01/19 06:00 Calcium 8.0 mg/dL (8.5-10.1) L 01/01/19 06:00 Total Bilirubin 0.6 mg/dL (0.2-1) 12/29/18 05:30 AST 15 U/L (15-37) 12/29/18 05:30 ALT 18 U/L (13-61) 12/29/18 05:30 Alkaline Phosphatase 73 U/L (45-117) 12/29/18 05:30 Total Protein 6.9 g/dl (6.4-8.2) 12/29/18 05:30 Albumin 2.8 g/dl (3.4-5.0) L 12/29/18 05:30 CARDIAC ENZYMES Creatine Kinase 38 U/L (26-192) 12/28/18 11:44 Troponin I 0.09 ng/ml (0.00-0.05) H 12/28/18 11:44 Current Medications Generic Name Dose Route Start Last Admin Trade Name Khang PRN Reason Stop Dose Admin Acetaminophen 650 mg 12/31/18 20:34 Tylenol - PO Q6H PRN FEVER Albuterol/Ipratropium 1 amp 12/31/18 20:34 Duoneb - NEB Q6H PRN SHORTNESS OF BREATH Aspirin 81 mg 01/01/19 10:00 01/02/19 12:20 Ecotrin - PO 81 mg DAILY LISA Administration Atenolol 50 mg 01/01/19 10:00 01/02/19 12:19 Tenormin - PO 50 mg DAILY LISA Administration Atorvastatin Calcium 20 mg 12/31/18 22:00 01/01/19 21:33 Lipitor - PO 20 mg HS LISA Administration Escitalopram Oxalate 10 mg 01/01/19 10:00 01/02/19 12:20 Lexapro - PO 10 mg DAILY LISA Administration Furosemide 40 mg 01/01/19 10:00 01/02/19 12:20 Lasix - PO 40 mg DAILY LISA Administration Heparin Sodium (Porcine) 5,000 unit 12/31/18 22:00 01/02/19 13:56 Heparin - SQ 5,000 unit TID LISA Administration Methylprednisolone Sodium Succinate 40 mg 12/31/18 22:00 01/02/19 12:19 Solu-Medrol - IVPUSH 40 mg BID LISA Administration Pantoprazole Sodium 40 mg 01/01/19 10:00 01/02/19 12:20 Protonix - PO 40 mg DAILY LISA Administration Ramipril 2.5 mg 01/01/19 10:00 01/02/19 12:20 Altace - PO 2.5 mg DAILY LISA Administration Spironolactone 25 mg 01/01/19 10:00 01/02/19 12:20 Aldactone - PO 25 mg DAILY LISA Administration Home Medications Medication Instructions Recorded Atorvastatin Ca [Lipitor] 20 mg PO HS 04/16/18 Albuterol Sulfate [Proventil HFA 1 inh PO Q4H PRN 06/20/18 Inhaler -] Budesonide/Formeterol Fumarate 2 inh PO BID 06/20/18 [SYMBICORT 160/4.5mcg -] Spironolactone [Aldactone] 25 mg PO DAILY #2 tablet 09/11/18 predniSONE [Deltasone -] 5 mg PO DAILY #7 tablet 09/11/18 Escitalopram Oxalate [Lexapro -] 10 mg PO DAILY 10/06/18 Atenolol [Tenormin] 50 mg PO DAILY 11/09/18 Furosemide [Lasix -] 40 mg PO DAILY 12/20/18 Ramipril [Altace] 2.5 mg PO DAILY 12/20/18 Aspirin Coated [Ecotrin -] 81 mg PO DAILY tablet.ec 12/25/18 Chest X-ray: Report Reviewed (CXR 12/28/2018 Impression: CArdiomegaly and pulmonary congestion. increased the interstitial markings.) Cat Scan: Report Reviewed (Head CT 12-28-2018 Moderate atrophy. No gross evidence of a focal intracranial lesion or hemorrhage is seen. Read by Dr. Emmy Hendrix) EKG: Report Reviewed (EKG 12-28-2018 Afib 81bpm) Laboratory Tests 01/01/19 01/01/19 06:00 06:00 Iron 67 TIBC 244 L Iron Saturation 27 Transferrin 206 Ferritin 130.7 SSESSMENT AND PLAN: Patient is a 82yo female with PMHx of pernicious anemia, heart murmur, COPD, HTN , CHF, GERD, afib, hyperlipidemia and sarcoidosis who presents to the ED c/o SOB and was admitted for having hypoxia (O2 sat mid 60%). #Acute on chronic hypoxic ,hypercapneic respiratory failure improving due to COPD exacerbation with hx of sarcoidosis on duonebs QID PRN SOB, BIPAP prn, continue solumedrol 40mg BID Iv continue symbicort, improving, patient refusing bipap on and off , keep sa02 b/t 89-91% # Acute on chronic diastolic heart failure continue ramipril, aldactone and lasix po now , presented with BNP of 9k, cardio and pulmonary on the case appreciated. # Hx of Sarcoidosis on solumedrol continue # Hx of Permanent Afib on Asa 81, atenolol 50mg ,not on anticoagulation secondary to recent hemorrhagic cystitis # Hx of hemorrhagic cystitis, with hx of bilateral nephrostomy tubes # Hx of Klebsiella/ESBL UTI # Microcytic anemia , iron studies are within nl limit. # Depression: lexapro 10mg daily # Hypercholesterolemia: lipitor 20mg qhs # Hx of HTN continue meds # Hx of CAD: Continue atenolol, Lipitor # hx of Pulmonary HTN DVT Px; Heparin Possible discharge in am
--- NOTE | 2019-01-02 16:40 | PN ---
Physical Exam: SUBJECTIVE: Patient seen and examined at bedside. No acute events overnight. OBJECTIVE: Vital Signs Period Temp Pulse Resp BP Sys/Garza Pulse Ox Last 24 Hr 97.4 F-98.7 F 62-109 17-20 110-127/56-77 97-100 GENERAL: No Acute Distress. HEAD: NC/AT EYES: EOMI Sclera clear ENT: MMM NECK: Trachea midline, full range of motion, supple. LUNGS: crackles persist b/l HEART: irregularly irregular ABDOMEN: soft nondistended nontender EXTREMITIES: Trace edema NEUROLOGICAL: Cranial nerves II through XII grossly intact. PSYCH: Normal mood, normal affect. SKIN: No rashes or lesions appreciated Laboratory Results - last 24 hr 01/01/19 06:00 Iron 67 TIBC 244 L Iron Saturation 27 Transferrin 206 Active Medications Generic Name Dose Route Start Last Admin Trade Name Freq PRN Reason Stop Dose Admin Acetaminophen 650 mg 12/31/18 20:34 Tylenol - PO Q6H PRN FEVER Albuterol/Ipratropium 1 amp 12/31/18 20:34 Duoneb - NEB Q6H PRN SHORTNESS OF BREATH Aspirin 81 mg 01/01/19 10:00 01/02/19 12:20 Ecotrin - PO 81 mg DAILY LISA Administration Atenolol 50 mg 01/01/19 10:00 01/02/19 12:19 Tenormin - PO 50 mg DAILY LISA Administration Atorvastatin Calcium 20 mg 12/31/18 22:00 01/01/19 21:33 Lipitor - PO 20 mg HS LISA Administration Escitalopram Oxalate 10 mg 01/01/19 10:00 01/02/19 12:20 Lexapro - PO 10 mg DAILY LISA Administration Furosemide 40 mg 01/01/19 10:00 01/02/19 12:20 Lasix - PO 40 mg DAILY LISA Administration Heparin Sodium (Porcine) 5,000 unit 12/31/18 22:00 01/02/19 13:56 Heparin - SQ 5,000 unit TID LISA Administration Methylprednisolone Sodium Succinate 40 mg 12/31/18 22:00 01/02/19 12:19 Solu-Medrol - IVPUSH 40 mg BID LISA Administration Pantoprazole Sodium 40 mg 01/01/19 10:00 01/02/19 12:20 Protonix - PO 40 mg DAILY LISA Administration Ramipril 2.5 mg 01/01/19 10:00 01/02/19 12:20 Altace - PO 2.5 mg DAILY LISA Administration Spironolactone 25 mg 01/01/19 10:00 01/02/19 12:20 Aldactone - PO 25 mg DAILY LISA Administration ASSESSMENT/PLAN: 81F h/o afib, CHF, COPD (on home O2 2L), HTN, pulm HTN, hematuria s/p b/l perc nephrostomy sent from [place] for chest tightness, shortness of breath, UTI #Acote on Chronic DCHF - on lasix 40 mg daily as outpatient - BNP > 9000 - CXR mild congestion, sob and edema have improved but still some dyspnea, mild JVD - weight stable compared to discharge (161 lbs, although this is bed weight) - received lasix 40 mg IV x 2 doses - Atenolol 50 mg daily, spironolactone - Lasix 40 mg PO daily. Evaluated again today by cardiology. Continue PO Lasix. -Cardiology on board -NIPPV as tolerated QHS and PRN -Solumedrol 40 IVPUSH BID #Atrial Fibrillation: - Pt on Tenormin 50 mg daily. Pt is rate controlled. - Pt's [id number] 4-5. Should be on anticoagulation however has h/o hemorrhagic cystitis. - cont aspirin #COPD -home pred 5mg on hold, -Solumedrol 40mg BID IV -continue symbicort #HLD - continue statin FEN No Fluids Monitor Electrolytes Sodium controlled diet DVT ppx: SCD's Dispo: Tele Visit type - Emergency Visit Emergency Visit: Yes ED Registration Date: 12/28/18 Care time: The patient presented to the Emergency Department on the above date and was hospitalized for further evaluation of their emergent condition. - New Patient This patient is new to me today: No - Critical Care Critical Care patient: No - Discharge Referral Referred to [facility] No
[2019-01-02] MEDS: ATORVASTATIN CA 20 MG TABLET (FP) PO SCH (21:54)
[2019-01-03] MEDS: HEPARIN NA (PORCINE) 5,000 UNITS/ML 1ML VIAL SQ SCH ×3 (05:31→21:15)
[2019-01-03 06:47] LABS: HEMATOCRIT 35.9 % (32.4-45.2); MCH 21.8 pg (25.7-33.7); MCHC 30.5 g/dl (32.0-36.0); MEAN CELL VOLUME 71.4 fl (80-96); MEAN PLT VOLUME 9.4 fl (7.5-11.1); PLATELET COUNT 189 K/MM3 (134-434); RBC 5.03 M/mm3 (3.60-5.2); RDW 18.1 % (11.6-15.6); WHITE BLOOD COUNT 4.2 K/mm3 (4.0-10.0)
[2019-01-03 07:04] LABS: ANION GAP 3 MMOL/L (8-16); BLOOD UREA NITROGEN 31 mg/dL (7-18); CALCIUM 8.6 mg/dL (8.5-10.1); CHLORIDE 95 mmol/L (98-107); CO2 39 mmol/L (21-32); GLUCOSE,RANDOM 228 mg/dL (74-106); MAGNESIUM 2.1 mg/dL (1.8-2.4); PHOSPHOROUS 2.4 mg/dL (2.5-4.9); POTASSIUM 3.7 mmol/L (3.5-5.1); SODIUM 138 mmol/L (136-145)
[2019-01-03] MEDS ORDERED: PT OWN MED DRAWER 7, Y5N ONE (08:42)
[2019-01-03] MEDS: FUROSEMIDE 40 MG TABLET (FP) PO SCH (09:45)
[2019-01-03] MEDS: ASPIRIN COATED 81 MG TABLET.EC PO SCH (09:45)
[2019-01-03] MEDS: ESCITALOPRAM OXALATE 10 MG TABLET (FP) PO SCH (09:45)
[2019-01-03] MEDS: RAMIPRIL 2.5 MG CAPSULE (FP) PO SCH (09:45)
[2019-01-03] MEDS: ATENOLOL 25 MG TABLET (FP) PO SCH (09:45)
[2019-01-03] MEDS: SPIRONOLACTONE 25 MG TABLET (FP) PO SCH (09:46)
[2019-01-03] MEDS: PANTOPRAZOLE 40 MG TABLET (FP) PO SCH (09:46)
[2019-01-03] MEDS: methylPREDNISolone NA SUCC 40 MG/1 ML VIAL IVPUSH SCH (09:47)
--- NOTE | 2019-01-03 10:04 | PN ---
Progress Note (short form) - Note Progress Note: cc: no SOB, palps, dizziness, lightheadedness History of Present Illness: Current Medications Acetaminophen (Tylenol -) 650 mg PO Q6H PRN PRN Reason: FEVER Albuterol/Ipratropium (Duoneb -) 1 amp NEB Q6H PRN PRN Reason: SHORTNESS OF BREATH Aspirin (Ecotrin -) 81 mg PO DAILY [facility] Last Admin: 01/03/19 09:45 Dose: 81 mg Atenolol (Tenormin -) 50 mg PO DAILY [facility] Last Admin: 01/03/19 09:45 Dose: 50 mg Atorvastatin Calcium (Lipitor -) 20 mg PO HS [facility] Last Admin: 01/02/19 21:54 Dose: 20 mg Escitalopram Oxalate (Lexapro -) 10 mg PO DAILY [facility] Last Admin: 01/03/19 09:45 Dose: 10 mg Furosemide (Lasix -) 40 mg PO DAILY [facility] Last Admin: 01/03/19 09:45 Dose: 40 mg Heparin Sodium (Porcine) (Heparin -) 5,000 unit SQ TID [facility] Last Admin: 01/03/19 05:31 Dose: 5,000 unit Methylprednisolone Sodium Succinate (Solu-Medrol -) 40 mg IVPUSH BID [facility] Last Admin: 01/03/19 09:47 Dose: 40 mg Pantoprazole Sodium (Protonix -) 40 mg PO DAILY [facility] Last Admin: 01/03/19 09:46 Dose: 40 mg Ramipril (Altace -) 2.5 mg PO DAILY [facility] Last Admin: 01/03/19 09:45 Dose: 2.5 mg Spironolactone (Aldactone -) 25 mg PO DAILY [facility] Last Admin: 01/03/19 09:46 Dose: 25 mg - Objective Vital Signs Period Temp Pulse Resp BP Sys/Garza Pulse Ox Last 24 Hr 97.4 F-98.3 F 74-109 18-20 110-119/54-66 93-97 Constitutional: Yes: Well Nourished, No Distress, Calm Cardiovascular: Yes: Regular Rate and Rhythm, JVD, Murmur (soft syst murmur LLSB ), S1, S2. No: Gallop Respiratory: Yes: Regular, CTA Bilaterally. No: Accessory Muscle Use, Rales, Wheezes Extremities: No: Cold Edema: No Neurological: Yes: Alert. No: Seizure Psychiatric: No: Agitated Assessment/Plan Echo 05/03: nl LVEF. mild RVE, mild-mod RV hypo. L/NEENA. mod MR/TR. RVSP at least 88 mmHg Echo 03/2017: Mild conc lvh. nl lv/rv size/fn, mod ronnie, mod mr, mod tr, rvsp 40- 50 EKG: afib rate okay, no ischemic changes CXR mild congestive changes Echo 07/2018 nl LV function, LA mod/severely dilated. RA mod dilated. Mod MR. Mod TR. RVSP elevated at 74 mmHG. Assessment/Plan 81F h/o afib, CHF, COPD (on home O2 2L), HTN, pulm HTN, hematuria s/p b/l perc nephrostomy sent from [place] for chest tightness, shortness of breath, UTI acute on chronic diastolic HF exacerbation, pulm sarcoid, advanced COPD, cor pulmonale with RV failure, history of chronic hypoxemic/hypercapneic resp failure: - on lasix 40 mg daily as outpatient (recent decomp requiring IV lasix after diuretics held as outpt) - BNP 9900 (range 1K-10K) - CXR mild congestion, sob and edema have improved but still some dyspnea, mild JVD - weight stable compared to discharge (161 lbs, although this is bed weight) - received lasix 40 mg IV x 2 doses - continue atenolol, spironolactone - 12/29: change lasix to 40 mg IV daily - 12/30: do not think JVD will completely resolve, even when she is at her target wt/volume status (likely due to high R sided pressure). remains mild JVD , sx's much improved (note: chest heaviness is her typical sx of pulm decompensation/chf). continue lasix 40 IV qd for now. anticipate she will be ready for discharge cv-rojas in 24-48 hrs. - 12/31: clinically much improved, no sx's or volume. change lasix 40 IV qd to 40 PO qd. - 01/01-: well-compensated. cont PO lasix as doing. Elevated troponin - trop indeterminate range, stable compared to prior values - EKG unchanged - no suspected angina (sx's typical of her prior resp exacerbation episodes) afib: - HR control mostly good, cont bb - holding eliquis for hx of severe hematuria, anemia - cont aspirin COPD - manage per primary, remains on IV steroids HLD - continue statin cad, NSTEMI, staph bacteremia 07/2018: -periop hypotension 08/11 during cysto, briefly on pressors. likely due to bacteremia, overdiuresis -trop 2.0 the following day, trended down, likely Type II MO sec to hypoperfusion/sepsis (+/- underlying stable CAD). ECG 08/[address] depressions inferior leads, improved on 08/12 tracing--cannot exclude Type I MO at time of events. -AC initially held for gross hematuria with large clots/hydronephrosis, was back on eliquis and now stopped again due to hematuria. defer aspirin -BB and afib HR control as doing -defer invasive CAD mgmt approach given poor functional status with competing mortality limitations from severe lung dz, low likelihood to improve prognosis, and risks > benefits (including bleeding, AIN) OK FOR D/C FROM [facility]
--- NOTE | 2019-01-03 12:21 | PN ---
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,feeling better,-resp distress - Current Medication List Current Medications: Active Medications Acetaminophen (Tylenol -) 650 mg PO Q6H PRN PRN Reason: FEVER Albuterol/Ipratropium (Duoneb -) 1 amp NEB Q6H PRN PRN Reason: SHORTNESS OF BREATH Aspirin (Ecotrin -) 81 mg PO DAILY [facility] Last Admin: 01/03/19 09:45 Dose: 81 mg Atenolol (Tenormin -) 50 mg PO DAILY [facility] Last Admin: 01/03/19 09:45 Dose: 50 mg Atorvastatin Calcium (Lipitor -) 20 mg PO HS [facility] Last Admin: 01/02/19 21:54 Dose: 20 mg Escitalopram Oxalate (Lexapro -) 10 mg PO DAILY [facility] Last Admin: 01/03/19 09:45 Dose: 10 mg Furosemide (Lasix -) 40 mg PO DAILY [facility] Last Admin: 01/03/19 09:45 Dose: 40 mg Heparin Sodium (Porcine) (Heparin -) 5,000 unit SQ TID [facility] Last Admin: 01/03/19 05:31 Dose: 5,000 unit Methylprednisolone Sodium Succinate (Solu-Medrol -) 40 mg IVPUSH BID [facility] Last Admin: 01/03/19 09:47 Dose: 40 mg Pantoprazole Sodium (Protonix -) 40 mg PO DAILY [facility] Last Admin: 01/03/19 09:46 Dose: 40 mg Ramipril (Altace -) 2.5 mg PO DAILY [facility] Last Admin: 01/03/19 09:45 Dose: 2.5 mg Spironolactone (Aldactone -) 25 mg PO DAILY [facility] Last Admin: 01/03/19 09:46 Dose: 25 mg - Objective Vital Signs: Vital Signs Temperature 97.9 F 01/03/19 06:00 Pulse Rate 90 01/03/19 06:00 Respiratory Rate 20 01/03/19 06:00 Blood Pressure 113/54 L 01/03/19 06:00 O2 Sat by Pulse Oximetry (%) 93 L 01/02/19 21:00 Constitutional: Yes: Well Nourished, Calm Eyes: Yes: WNL HENT: Yes: WNL Neck: Yes: WNL Cardiovascular: Yes: Pulse Irregular, S1, S2 Respiratory: Yes: Wheezes (few wheezes) Gastrointestinal: Yes: Normal Bowel Sounds, Soft Extremities: Yes: WNL Edema: No Labs: CBC, BMP 01/03/19 06:00 01/03/19 06:00 INR, PTT INR 1.16 (0.83-1.09) H 12/28/18 15:35 Assessment/Plan A/P Chronic Hypoxic and Hypercapneic Respiratory Failure Acute on Chronic Diastolic Heart Failure Acute COPD Exacerbation Atrial Fibrillation Sarcoidosis Pulmonary HTN HTN Leukopenia - lasix, aldactone - monitor urine output, creatinine - medrol taper - inhaled bronchodilators - O2 to keep SpO2 >90% - rate control - anticoagulation - nasal o2 - nippv as needed DR ALBERT
--- NOTE | 2019-01-03 14:57 | PN ---
Teaching Attending Note Name of Resident: Marco A Colon ATTENDING PHYSICIAN STATEMENT I saw and evaluated the patient. I reviewed the resident's note and discussed the case with the resident. I agree with the resident's findings and plan as documented. SUBJECTIVE: no fever or chills. No WEBER ,. She feels much better, does not believe she has no SOB. no CP . OBJECTIVE: NAD. awake, cooperative CV: irreg irreg Lungs: CTAB Ext: no erythema or edema ASSESSMENT AND PLAN: 88 y/o lady with h/o Afib (not on full AC due to hematuria), CHF,severe pulmonary hypertension, CAD, HTN, COPD on 2 L of home O2 , and recent admission for CHF exacerbation and ESBL UTI , she presented with SOB again . She was found to have acute CHF and COPD exacerbation 1- ACute hypercapnic hypoxic resp failure sure to acute COPD and diastolic CHF exacerbation : imporved - switch to po prednisone with taper to reach her home dose of 5 mg fro sarcoidosis . case d/w Dr. 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 - will refer to heme as out pt Dispo : DC to rehab today
--- NOTE | 2019-01-03 17:21 | DS ---
Physical Exam: SUBJECTIVE: Patient seen and examined at bedside. No acute events overnight. OBJECTIVE: Vital Signs Period Temp Pulse Resp BP Sys/Garza Pulse Ox Last 24 Hr 97.9 F-98.5 F 90-91 20-20 109-117/54-67 93-96 PHYSICAL EXAM GENERAL: AAOx3 NAD HEAD: NC/AT EYES: EOMI Sclera clear ENT: MMM NECK: Trachea midline, full range of motion, supple. LUNGS: Crackles auscultated b/l HEART: irregularly irregular ABDOMEN: soft nondistended nontender EXTREMITIES: No CCE NEUROLOGICAL: Cranial nerves II through XII grossly intact. PSYCH: Normal mood, normal affect. SKIN: No rashes or lesions appreciated LABS Laboratory Results - last 24 hr 01/03/19 01/03/19 06:00 06:00 WBC 4.2 RBC 5.03 Hgb 11.0 Hct 35.9 MCV 71.4 L MCH 21.8 L MCHC 30.5 L RDW 18.1 H Plt Count 189 MPV 9.4 Sodium 138 Potassium 3.7 Chloride 95 L Carbon Dioxide 39 H Anion Gap 3 L BUN 31 H Creatinine 1.0 Creat Clearance w eGFR 52.95 Random Glucose 228 H Calcium 8.6 Phosphorus 2.4 L Magnesium 2.1 HOSPITAL COURSE: Date of Admission:12/28/18 Pt is an 81 y/o F with a significant past medical history of afib(not on AC 2/2 hemmorhagic cystitis), CHF, COPD (on home O2 2L), HTN, pulm HTN, hematuria s/p b /l perc nephrostomy who was sent from [facility] for chest tightness and shortness of breath. BNP > 9000. Pt given Rocephin 1g and Ertapenem 1gm in ED ( ESBL Klebsiella from previous admission), along with duonebs. Pt was started on solumedrol 40mg BID. Pt was also placed on BiPAP. Pt was also placed on IV Lasix 40 MG and eventually switched to PO. Solumedrol was switched to po prednisone upon discharge with taper to reach her home dose of 5 mg. [facility] Date of Discharge: 01/03/19 Minutes to complete discharge: 35 Discharge Summary Reason For Visit: SOB,AMS,COPD Current Active Problems Acute exacerbation of chronic obstructive pulmonary disease (Acute) COPD exacerbation (Acute) COPD (chronic obstructive pulmonary disease) (Chronic) Condition: Improved - Instructions Diet, Activity, Other Instructions: You were seen at the hospital due to having too much fluid on your lungs and having a COPD flare up. You were treated with IV steroids and IV water medicine which has helped your breathing. You are doing much better and are able to go back to your rehab facility. MEDICATIONS: Please continue your home medications: Aldactone 25mg DAILIY Lasix 40mg DAILY Ramipril 2.5mg DAILY Atenolol 50mg DAILY Lipitor 20 NIGHTLY Symbicort 2 puffs TWICE DAILY Protonix 40mg DAILY You will be given a steroid taper to follow: 40mg DAILY for 3 days (01/03/19 - 01/05/19) 35mg DAILY for 3 days (01/06/19 - 01/08/19) 30mg DAILY for 3 days (01/09/19 - 01/11/19) 25mg DAILY for 3 days (01/12/19 - 01/14/19) 20mg DAILY for 3 days (01/15/19 - 01/17/19) 15mg DAILY for 3 days (01/18/19 - 01/20/19) 10mg DAILY for 3 days (01/21/19 - 01/23/19) 5mg DAILY (continue this dose long-term) Follow-up: Please follow-up with Dr. Nicole for your lung problems and medications Please follow-up with Dr. Moreland/Vanessa/Roxann's office Please follow the instructions of your rehab facility and continue rehabilitation to get you stronger follow up with dr. Lucas for your B thalassemia minor Referrals: Gerald Nicole MD [Staff Physician] - Antonio Moreland MD [Staff Physician] - Gisela Lucas MD [Non Staff, Medical] - Paul Lucas MD [Staff Physician] - Disposition: HALFWAY FACILITY - Home Medications Comprehensive Discharge Medication List: Ambulatory Orders Atorvastatin Ca [Lipitor] 20 mg PO HS 04/16/18 Albuterol Sulfate [Proventil HFA Inhaler -] 1 inh PO Q4H PRN 06/20/18 Budesonide/Formeterol Fumarate [SYMBICORT 160/4.5mcg -] 2 inh PO BID 06/20/18 Spironolactone [Aldactone] 25 mg PO DAILY #2 tablet 09/11/18 Escitalopram Oxalate [Lexapro -] 10 mg PO DAILY 10/06/18 Atenolol [Tenormin] 50 mg PO DAILY 11/09/18 Furosemide [Lasix -] 40 mg PO DAILY 12/20/18 Ramipril [Altace] 2.5 mg PO DAILY 12/20/18 Aspirin Coated [Ecotrin -] 81 mg PO DAILY tablet.ec 12/25/18 Albuterol 2.5/Ipratropium 0.5 [Duoneb -] 1 neb IH QID PRN #1 vial.neb. 01/03/19 Atorvastatin Ca [Lipitor] 20 mg PO HS tablet 01/03/19 Pantoprazole Sodium [Protonix -] 40 mg PO DAILY tablet.ec 01/03/19 Prednisone See Taper PO DAILY #43 tablet 01/03/19 This patient is new to me today: No Emergency Visit: Yes ED Registration Date: 12/28/18 Care time: The patient presented to the Emergency Department on the above date and was hospitalized for further evaluation of their emergent condition. Critical Care patient: No - Discharge Referral Referred to [facility] No
[2019-01-03] MEDS: ATORVASTATIN CA 20 MG TABLET (FP) PO SCH (21:15)
[2019-01-04] MEDS: HEPARIN NA (PORCINE) 5,000 UNITS/ML 1ML VIAL SQ SCH (05:25)
[2019-01-04 07:42] VITALS: BP 124/64; PULSE 78; TEMP 98
[2019-01-04] MEDS: SPIRONOLACTONE 25 MG TABLET (FP) PO SCH (09:48)
[2019-01-04] MEDS: RAMIPRIL 2.5 MG CAPSULE (FP) PO SCH (09:49)
[2019-01-04] MEDS: ASPIRIN COATED 81 MG TABLET.EC PO SCH (09:49)
[2019-01-04] MEDS: FUROSEMIDE 40 MG TABLET (FP) PO SCH (09:49)
[2019-01-04] MEDS: PANTOPRAZOLE 40 MG TABLET (FP) PO SCH (09:50)
[2019-01-04] MEDS: ESCITALOPRAM OXALATE 10 MG TABLET (FP) PO SCH (09:50)
[2019-01-04] MEDS: ATENOLOL 25 MG TABLET (FP) PO SCH (09:50)
[2019-01-04] MEDS ORDERED: predniSONE 20 MG TABLET (UD) PO SCH (10:00)
--- NOTE | 2019-01-04 10:26 | PN ---
Progress Note (short form) - Note Progress Note: Progress Note: s: no SOB, palps, dizziness, lightheadedness Current Medications Generic Name Dose Route Start Last Admin Trade Name Freq PRN Reason Stop Dose Admin Acetaminophen 650 mg 12/31/18 20:34 Tylenol - PO Q6H PRN FEVER Albuterol/Ipratropium 1 amp 12/31/18 20:34 Duoneb - NEB Q6H PRN SHORTNESS OF BREATH Aspirin 81 mg 01/01/19 10:00 01/04/19 09:49 Ecotrin - PO 81 mg DAILY LISA Administration Atenolol 50 mg 01/01/19 10:00 01/04/19 09:50 Tenormin - PO 50 mg DAILY LISA Administration Atorvastatin Calcium 20 mg 12/31/18 22:00 01/03/19 21:15 Lipitor - PO 20 mg HS LISA Administration Escitalopram Oxalate 10 mg 01/01/19 10:00 01/04/19 09:50 Lexapro - PO 10 mg DAILY LISA Administration Furosemide 40 mg 01/01/19 10:00 01/04/19 09:49 Lasix - PO 40 mg DAILY LISA Administration Heparin Sodium (Porcine) 5,000 unit 12/31/18 22:00 01/04/19 05:25 Heparin - SQ 5,000 unit TID LISA Administration Pantoprazole Sodium 40 mg 01/01/19 10:00 01/04/19 09:50 Protonix - PO 40 mg DAILY LISA Administration Prednisone 40 mg 01/04/19 10:00 01/04/19 09:49 Deltasone - PO 01/05/19 11:00 40 mg DAILY LISA Administration Ramipril 2.5 mg 01/01/19 10:00 01/04/19 09:49 Altace - PO 2.5 mg DAILY LISA Administration Spironolactone 25 mg 01/01/19 10:00 01/04/19 09:48 Aldactone - PO 25 mg DAILY LISA Administration - Objective Vital Signs Period Temp Pulse Resp BP Sys/Garza Pulse Ox Last 24 Hr 97.7 F-98.5 F 78-90 18-20 109-144/64-87 99-100 Constitutional: Yes: Well Nourished, No Distress, Calm Cardiovascular: Yes: Regular Rate and Rhythm, JVD, Murmur (soft syst murmur LLSB ), S1, S2. No: Gallop Respiratory: Yes: Regular, CTA Bilaterally. No: Accessory Muscle Use, Rales, Wheezes Extremities: No: Cold Edema: No Neurological: Yes: Alert. No: Seizure Psychiatric: No: Agitated CBC, BMP 01/03/19 06:00 01/03/19 06:00 Echo 05/03: nl LVEF. mild RVE, mild-mod RV hypo. L/NEENA. mod MR/TR. RVSP at least 88 mmHg Echo 03/2017: Mild conc lvh. nl lv/rv size/fn, mod ronnie, mod mr, mod tr, rvsp 40- 50 EKG: afib rate okay, no ischemic changes CXR mild congestive changes Echo 07/2018 nl LV function, LA mod/severely dilated. RA mod dilated. Mod MR. Mod TR. RVSP elevated at 74 mmHG. Assessment/Plan 81F h/o afib, CHF, COPD (on home O2 2L), HTN, pulm HTN, hematuria s/p b/l perc nephrostomy sent from [place] for chest tightness, shortness of breath, UTI acute on chronic diastolic HF exacerbation, pulm sarcoid, advanced COPD, cor pulmonale with RV failure, history of chronic hypoxemic/hypercapneic resp failure: - on lasix 40 mg daily as outpatient (recent decomp requiring IV lasix after diuretics held as outpt) - BNP 9900 (range 1K-10K) - CXR mild congestion, sob and edema have improved but still some dyspnea, mild JVD - weight stable compared to discharge (161 lbs, although this is bed weight) - received lasix 40 mg IV x 2 doses - continue atenolol, spironolactone - 12/29: change lasix to 40 mg IV daily - 12/30: do not think JVD will completely resolve, even when she is at her target wt/volume status (likely due to high R sided pressure). remains mild JVD , sx's much improved (note: chest heaviness is her typical sx of pulm decompensation/chf). continue lasix 40 IV qd for now. anticipate she will be ready for discharge cv-rojas in 24-48 hrs. - 12/31: clinically much improved, no sx's or volume. change lasix 40 IV qd to 40 PO qd. - 01/01-: well-compensated. cont PO lasix as doing. Elevated troponin - trop indeterminate range, stable compared to prior values - EKG unchanged - no suspected angina (sx's typical of her prior resp exacerbation episodes) afib: - HR control mostly good, cont bb - holding eliquis for hx of severe hematuria, anemia - cont aspirin COPD - manage per primary, remains on IV steroids HLD - continue statin cad, NSTEMI, staph bacteremia 07/2018: -periop hypotension 08/11 during cysto, briefly on pressors. likely due to bacteremia, overdiuresis -trop 2.0 the following day, trended down, likely Type II FL sec to hypoperfusion/sepsis (+/- underlying stable CAD). ECG 08/[address] depressions inferior leads, improved on 08/12 tracing--cannot exclude Type I FL at time of events. -AC initially held for gross hematuria with large clots/hydronephrosis, was back on eliquis and now stopped again due to hematuria. defer aspirin -BB and afib HR control as doing -defer invasive CAD mgmt approach given poor functional status with competing mortality limitations from severe lung dz, low likelihood to improve prognosis, and risks > benefits (including bleeding, AIN) OK FOR D/C FROM [facility]
--- NOTE | 2019-01-04 13:48 | PN ---
Teaching Attending Note Name of Resident: Marco A Colon ATTENDING PHYSICIAN STATEMENT I saw and evaluated the patient. I reviewed the resident's note and discussed the case with the resident. I agree with the resident's findings and plan as documented. SUBJECTIVE: no dysuria, no OSB , no cough . no CP OBJECTIVE: NAD. awake, cooperative CV: irreg irreg Lungs: CTAB Ext: no erythema or edema ASSESSMENT AND PLAN: 88 y/o lady with h/o Afib (not on full AC due to hematuria), CHF,severe pulmonary hypertension, CAD, HTN, COPD on 2 L of home O2 , and recent admission for CHF exacerbation and ESBL UTI , she presented with SOB again . 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 - will refer to heme as out pt Dispo : patient was dc yesterday, but did not leave as BIPAP could not be arranged
== END 2019-01-04 10:35 | DRG 291 ==
LOC: EDBD → JER 10:02 → JERBED 16:19 → J4S 23:22
PROVIDERS: ADMIT Internal Medicine; ATTEND Internal Medicine
DX: I11.0 Hypertensive heart disease with heart failure (principal); J96.22 Acute and chronic respiratory failure with hypercapnia; J96.21 Acute and chronic respiratory failure with hypoxia; J44.1 Chronic obstructive pulmonary disease with (acute) exacerbation; I50.33 Acute on chronic diastolic (congestive) heart failure; I25.10 Atherosclerotic heart disease of native coronary artery without angina pectoris; E78.00 Pure hypercholesterolemia, unspecified; I27.20 Pulmonary hypertension, unspecified; F03.90 Unspecified dementia, unspecified severity, without behavioral disturbance, psychotic disturbance, mood disturbance, and anxiety; K21.9 Gastro-esophageal reflux disease without esophagitis; R01.1 Cardiac murmur, unspecified; D86.9 Sarcoidosis, unspecified; R41.82 Altered mental status, unspecified; E87.6 Hypokalemia; I48.2 Chronic atrial fibrillation; I25.2 Old myocardial infarction; F41.8 Other specified anxiety disorders; Z99.81 Dependence on supplemental oxygen
CPT/HCPCS: 36415; 36600; 70450-TC; 71045-TC-FY; 80048; 80053; 81003; 81015; 82140; 82375; 82550; 82728; 82803; 82962; 83050; 83540; 83550; 83605; 83735; 83880; 84100; 84439; 84443; 84466; 84484; 85025; 85027; 85610; 85730; 87040; 87086; 93005; 93010; 94660; 97116-GP; 97161-GP; 99284-25; J0131; J1644

== ENCOUNTER 2019-01-21 15:58 | Inpatient (IN) | payer OTHER ==
--- NOTE | 2019-01-21 17:09 | PDOC ---
History of Present Illness - General Chief Complaint: Shortness of Breath Stated Complaint: SHORTNESS OF BREATH Time Seen by Provider: 01/21/19 16:12 History Source: Patient, Intermediate Records Exam Limitations: No Limitations - History of Present Illness Initial Comments: 82 yo F care home resident h/o COPD on home O2 2L during activities, dCHF, A- fib on ASA only due to anemia and hematuria, ESBL UTI BIBEMS for hypoxia and R flank discomfort. Per care home record, she was sating in the high 80s and then 100% on NC 2L. She maintained sat of 100% on 2L NC en route to the ED. Patient endorses urinary frequency and pain on urination. The discomfort in R flank is described as dull pain radiates to suprapubic pain, intermitent. Denies fever, chills, weakness, n/v, bowel symptoms. Past History - Past Medical History Allergies/Adverse Reactions: Allergies Allergy/AdvReac Type Severity Reaction Status Date / Time levofloxacin [From Levaquin] Allergy Intermediate Itching Verified 01/21/19 16: 07 Home Medications: Ambulatory Orders Atorvastatin Ca [Lipitor] 20 mg PO HS 04/16/18 Acetaminophen [Tylenol] 650 mg PO DAILY 01/21/19 Atenolol [Tenormin] 50 mg PO DAILY 01/21/19 Atorvastatin Ca [Lipitor] 20 mg PO HS 01/21/19 Atorvastatin Calcium [Lipitor] 20 mg PO DAILY 01/21/19 Budesonide/Formeterol Fumarate [SYMBICORT 160/4.5mcg -] 1 inh PO DAILY 01/21/19 Furosemide [Lasix] 40 mg PO DAILY 01/21/19 Lisinopril [Prinivil] 5 mg PO DAILY 01/21/19 Omeprazole 20 mg PO DAILY 01/21/19 Prednisone 5 mg PO DAILY 01/21/19 Spironolactone [Aldactone] 25 mg .ROUTE DAILY 01/21/19 Anemia: Yes (PERNICIOUS) Asthma: (HX RESPIRATORY FAILURE) Cancer: No Cardiac Disorders: Yes (AF, CAD) CVA: No COPD: Yes CHF: Yes Dementia: No Diabetes: No GI Disorders: Yes (GASTRITIS) Disorders: Yes (HX KIDNEY FAILURE,UTI. nephrostomy tube) HTN: Yes Hypercholesterolemia: Yes Liver Disease: No Psychiatric Problems: Yes (ANXIETY.) Seizures: No Thyroid Disease: No - Surgical History Abdominal Surgery: Yes (abdominal) Appendectomy: No Cardiac Surgery: No Cholecystectomy: Yes Lung Surgery: No (PT DENIES) Neurologic Surgery: No Orthopedic Surgery: Yes (cervical spine w/hardware) - Immunization History Immunization Up to Date: Yes - Suicide/Smoking/Psychosocial Hx Smoking Status: No Smoking History: Never smoked Years of Tobacco Use: 0 Have you smoked in the past 12 months: No Number of Cigarettes Smoked Daily: 0 Information on smoking cessation initiated: No Hx Alcohol Use: No Drug/Substance Use Hx: No Substance Use Type: None Hx Substance Use Treatment: No Review of Systems - Review of Systems Able to Perform ROS?: Yes Is the patient limited Peruvian proficient: No Constitutional: No: Chills, Fever, Night Sweats, Weakness Respiratory: No: Cough, Shortness of Breath Cardiac (ROS): Yes: Edema, Chest Tightness ABD/GI: Yes: Other (R flank pain). No: Nausea, Vomiting Neurological: Yes: Headache *Physical Exam - Vital Signs Last Vital Signs Temp Pulse Resp BP Pulse Ox 98.5 F 67 17 105/48 L 95 01/21/19 16:34 01/21/19 16:34 01/21/19 16:34 01/21/19 16:34 01/21/19 16:34 - Physical Exam General Appearance: No: Apparent Distress Respiratory/Chest: positive: Lungs Clear, Normal Breath Sounds. negative: Crackles, Rales, Wheezing Cardiovascular: positive: Regular Rhythm, Regular Rate, S1, S2, Edema. negative : Murmur Gastrointestinal/Abdominal: positive: Normal Bowel Sounds, Tender (R flank) Musculoskeletal: positive: CVA Tenderness (L) Extremity: positive: Swelling ED Treatment Course - LABORATORY CBC & Chemistry Diagram: 01/24/19 06:30 01/24/19 06:30 - RADIOLOGY Radiology Studies Ordered: Category Date Time Status CXRPORT [CHEST X-RAY PORTABLE*] [RAD] Stat Radiology 01/21/19 16:21 Taken *DC/Admit/Observation/Transfer Diagnosis at time of Disposition: Acute exacerbation of chronic obstructive pulmonary disease, UTI (urinary tract infection) - Discharge Dispostion Condition at time of disposition: Stable - Referrals - Patient Instructions - Post Discharge Activity
[2019-01-21 17:44] LABS: HEMATOCRIT 36.2 % (32.4-45.2); HEMOGLOBIN 10.8 GM/dL (10.7-15.3); MCH 20.8 pg (25.7-33.7); MCHC 29.8 g/dl (32.0-36.0); MEAN CELL VOLUME 69.9 fl (80-96); MEAN PLT VOLUME 10.4 fl (7.5-11.1); PLATELET COUNT 194 K/MM3 (134-434); RBC 5.18 M/mm3 (3.60-5.2); RDW 19.1 % (11.6-15.6); WHITE BLOOD COUNT 6.4 K/mm3 (4.0-10.0)
[2019-01-21 17:58] LABS: INR 1.08 (0.83-1.09); PROTHROMBIN TIME (PATIENT) 12.7 SEC (9.7-13.0)
[2019-01-21 18:01] LABS: ACTIVATED PTT 20.4 SECONDS (25.2-36.5)
--- NOTE | 2019-01-21 18:28 | PDOC ---
Attending Attestation - HPI HPI: 01/21/19 18:54 The patient is a 88 year old female, with a significant past medical history of Afib (not anticoagulated secondary to freq hematuria), hypertension, coronary artery disease, CHF (diastolic), COPD (O2 dependent on 2L nasal cannula), and hemorrhagic cystitis, who presents to the emergency department via EMS for, hypoxia and right flank pain with associated dysuria. She denies recent nausea, vomit, diarrhea or constipation. She denies recent chest pain or shortness of breath. Allergies: Levofloxacin. Social history: Resident at [facility]. No smoking. No alcohol. No illicit drugs. Surgical history: Cervical spine surgery w/ hardware; Lung Surgery; Cholecystectomy; Nephrostomy tube placement (bilateral). PMD: Dr. Barrera - Physicial Exam PE: 01/21/19 19:54 GENERAL: Well-appearing, well-nourished. No apparent distress. HEENT: Normocephalic, atraumatic. PERRL, EOM intact. NECK: +JVD. CARDIOVASCULAR: +Irregularly irregular. PULMONARY: Clear to auscultation bilaterally. ABDOMEN: Soft, non-distended. BACK: +R flank pain radiating to RLQ. EXTREMITIES: Normal ROM in all four extremities. No gross deformities. SKIN: Warm, dry. No rash NEUROLOGICAL: +Alert but, poor historian. <Mayra Ramey - Last Filed: 01/21/19 23:29> - Resident Resident Name: Kranthi David - ED Attending Attestation I have performed the following: I have examined & evaluated the patient, The case was reviewed & discussed with the resident, I agree w/resident's findings & plan, Exceptions are as noted - Medical Decision Making 01/21/19 20:03 alert,conversant 88 yo female (but poor historian) p/w rt flank pain and complaint of shortness of breath pt has h/o kidney stones and had a ureteral stent placed this Oct but it was removed 3 weeks ago and on exam there are no stents in place Concern for hydronephrosis,pyelo,PNA,chf 01/21/19 23:33 CAT scan of abdomen and pelvis stone protocol findings double-J ureteral stent catheter proper position of the right side. Punctate nonobstructing calculus in the lower pole collecting system of the right kidney. No obvious calculi identified along the course of the right ureteral stent catheter, Status post cholecystectomy Status post hysterectomy. Exophytic cyst lower pole left kidney. No left urinary calculi or bladder calculi identified pt admitted for UTI,chf <Deanna Villarreal - Last Filed: 01/21/19 23:34> Attestations - Attestations 01/21/19 18:59 Documentation prepared by Mayra Ramey, acting as medical office scheduler for Deanna Villarreal MD. <Mayra Ramey - Last Filed: 01/21/19 23:29>
--- NOTE | 2019-01-21 19:53 | PDOC ---
*Physical Exam - Vital Signs Last Vital Signs Temp Pulse Resp BP Pulse Ox 98.5 F 67 17 105/48 L 95 01/21/19 16:34 01/21/19 16:34 01/21/19 16:34 01/21/19 16:34 01/21/19 16:34 - Physical Exam Comments: 01/21/19 19:50 General Appearance: Nourished. No Apparent Distress HEENT: No Pharyngeal Erythema, Tonsillar Exudate, Tonsillar Erythema Neck: No Cervical Lymphadenopathy Respiratory/Chest: Lungs Clear, Normal Breath Sounds. No Crackles, Rales, Rhonchi, Wheezing Cardiovascular: Regular Rhythm, Regular Rate. No Murmur, Gallops, Rubs Gastrointestinal/Abdominal: Normal Bowel Sounds, Soft. No Guarding, Rebound, Tenderness Musculoskeletal: No CVA Tenderness Extremity: 2+ pitting edema in the lower extremities bilaterally. Normal Capillary Refill Integumentary: Normal Color, Dry, Warm Neurologic: Fully Oriented, Alert, Normal Mood/Affect, Normal Response, ED Treatment Course - LABORATORY CBC & Chemistry Diagram: 01/21/19 17:22 01/21/19 19:20 - ADDITIONAL ORDERS Additional order review: Laboratory Results 01/21/19 01/21/19 01/21/19 17:22 17:22 17:22 PT with INR 12.70 INR 1.08 PTT (Actin FS) 20.4 L Sodium Cancelled Potassium Cancelled Chloride Cancelled Carbon Dioxide Cancelled Anion Gap Cancelled BUN Cancelled Creatinine Cancelled Creat Clearance w eGFR Cancelled Random Glucose Cancelled Calcium Cancelled Magnesium Cancelled Total Bilirubin Cancelled AST Cancelled ALT Cancelled Alkaline Phosphatase Cancelled Creatine Kinase Cancelled Troponin I Cancelled B-Natriuretic Peptide 5126.9 H Total Protein Cancelled Albumin Cancelled 01/21/19 17:22 RBC 5.18 MCV 69.9 L MCHC 29.8 L RDW 19.1 H MPV 10.4 D Neutrophils % No Result Required. Lymphocytes % No Result Required. Progress Note - Progress Note Progress Note: Received sign out from Dr. David. The patient is an 88 year old female with a history of COPD, CHF, Kidney stones who presents for evaluation of shortness of breath and right flank pain s/p recent stent removal for kidney stones. The patient is pending cmp, spiral CT, UA to evaluate further. Medical Decision Making - Medical Decision Making 01/21/19 23:38 CBC is unremarkable. CMP is unremarkable. BNP is elevated to 5000s. UA demonstrates positive nitrites, positive leuk esterase consistent with a UTI. The patient has grown ESBL in the past and we will treat with ertapenem. We will also treat with lasix. The patient's symptoms are likely due to a CHF exacerbation and UTI and she will require admission for further management. CT abdomen pelvis as read by our radiologist demonstrates: 1. Double-J ureteral stent catheter in proper position right side. Punctate nonobstructing calculus lower pole collecting system right kidney. No obvious calculi identified along the course of the right ureteral stent catheter. 2. Exophytic cyst lower pole left kidney. No left urinary tract calculi or bladder calculi identified. 3. Status post cholecystectomy. Status post hysterectomy. 01/22/19 00:21 We discussed the case with the admitting team who accepted the patient for admission. *DC/Admit/Observation/Transfer Diagnosis at time of Disposition: Acute exacerbation of chronic obstructive pulmonary disease UTI (urinary tract infection) Qualifiers: Urinary tract infection type: site unspecified Hematuria presence: without hematuria Qualified Code(s): N39.0 - Urinary tract infection, site not specified - Discharge Dispostion Condition at time of disposition: Stable Decision to Admit order: Yes - Referrals - Patient Instructions - Post Discharge Activity
[2019-01-21 20:04] LABS: ALBUMIN 3.1 g/dl (3.4-5.0); ALK PHOS 67 U/L (45-117); ANION GAP 4 MMOL/L (8-16); BILIRUBIN,TOTAL 0.6 mg/dL (0.2-1); BLOOD UREA NITROGEN 36 mg/dL (7-18); CHLORIDE 102 mmol/L (98-107); CO2 37 mmol/L (21-32); CREATININE 0.9 mg/dL (0.55-1.3); GLUCOSE,RANDOM 192 mg/dL (74-106); POTASSIUM 4.6 mmol/L (3.5-5.1); SGOT/AST 15 U/L (15-37); SGPT/ALT 24 U/L (13-61); SODIUM 143 mmol/L (136-145); TOT PROT 6.2 g/dl (6.4-8.2)
[2019-01-21 20:08] LABS: ANISOCYTOSIS 1+; MACROCYTOSIS 0; OVALOCYTE 1+; PLATELET ESTIMATE NORMAL
[2019-01-21 22:06] LABS: URINE APPEARANCE TURBID; URINE BILIRUBIN NEGATIVE (NEGATIVE); URINE COLOR YELLOW; URINE GLUCOSE (UA) NEGATIVE (NEGATIVE); URINE KETONE NEGATIVE (NEGATIVE)
[2019-01-21 22:07] LABS: URINE LEUK ESTERASE 4+ (NEGATIVE); URINE NITRITE POSITIVE (NEGATIVE); URINE PROTEIN 30 (NEGATIVE)
[2019-01-21] MEDS ORDERED: FUROSEMIDE 40 MG/4 ML INJECTABLE VIAL IVPUSH ONE (22:30)
[2019-01-21] MEDS ORDERED: ERTAPENEM SODIUM 1 GM in SODIUM CHLORIDE 50 ML IVPB ONE (22:30)
[2019-01-21] MEDS ORDERED: FUROSEMIDE 40 MG/4 ML INJECTABLE VIAL ONE (22:58)
[2019-01-21] MEDS ORDERED: ERTAPENEM SODIUM 1 GM VIAL ONE (22:58)
--- NOTE | 2019-01-21 23:46 | HP ---
CHIEF COMPLAINT: o2 sat 80 % , right flank pain PCP:Dr Barrera HISTORY OF PRESENT ILLNESS: 88 y/o F from [facility] w/PMH of HTN , HLD ,Afib (not on AC due to hematuria), CHF, CAD, HTN, COPD (on 2L O2 at home), ESBL UTI , S/P B/L stent placed in October 2018 [facility] and left CVA tenderness was found to have UTI and admitted fir further evaluation. pt reports right flank pain worsening last couple days associated with dysuria ( describe it as discomfort when she pass urine ) she denies any hematuria . pt denies any fever but reports some chills. pt reports sob on excertion , she usually used o2 at [facility] on excertion , she is confused about using O2 continuously or only on excretion. reports worsening swelling in her Lower ext. and some chest tightness. pt reports slight left side headache but denies any dizziness or light headedness , reports some acid reflux but no N/V/D/C. ER course was notable for: (1)CT Abdomen pelvic with RLL non obstructed stone (2)UA + Nitrit , + LE , 450 WBC (3)cbc. cmp Recent Travel:denies PAST MEDICAL HISTORY: HTN , HLD ,Afib (not on AC due to hematuria), CHF, CAD, HTN, COPD (on 2L O2 at home), ESBL UTI , S/P B/L stent PAST SURGICAL HISTORY: Hysterectomy , cholecystectomy, cervical spine with hard saxena , B/L nephrostomy with stent placement Social History: Smoking:denies , 2nd hand smoker Alcohol:denies Drugs: denies Family History:none Allergies levofloxacin [From Levaquin] Allergy (Intermediate, Verified 01/21/19 16:07) Itching HOME MEDICATIONS: Home Medications Medication Instructions Recorded Atorvastatin Ca [Lipitor] 20 mg PO HS 04/16/18 Acetaminophen [Tylenol] 650 mg PO DAILY 01/21/19 Atenolol [Tenormin] 50 mg PO DAILY 01/21/19 Atorvastatin Ca [Lipitor] 20 mg PO HS 01/21/19 Atorvastatin Calcium [Lipitor] 20 mg PO DAILY 01/21/19 Budesonide/Formeterol Fumarate 1 inh PO DAILY 01/21/19 [SYMBICORT 160/4.5mcg -] Furosemide [Lasix] 40 mg PO DAILY 01/21/19 Lisinopril [Prinivil] 5 mg PO DAILY 01/21/19 Omeprazole 20 mg PO DAILY 01/21/19 Prednisone 5 mg PO DAILY 01/21/19 Spironolactone [Aldactone] 25 mg .ROUTE DAILY 01/21/19 REVIEW OF SYSTEMS CONSTITUTIONAL: Absent: fever, chills, diaphoresis, generalized weakness, malaise, loss of appetite, weight change HEENT: Absent: rhinorrhea, nasal congestion, throat pain, throat swelling, difficulty swallowing, mouth swelling, ear pain, eye pain, visual changes CARDIOVASCULAR: Absent: chest pain, syncope, palpitations, irregular heart rate, lightheadedness , peripheral edema RESPIRATORY: Absent: cough, shortness of breath, dyspnea with exertion, orthopnea, wheezing, stridor, hemoptysis GASTROINTESTINAL: Absent: abdominal pain, abdominal distension, nausea, vomiting, diarrhea, constipation, melena, hematochezia GENITOURINARY: Absent: dysuria, frequency, urgency, hesitancy, hematuria, flank pain, genital pain MUSCULOSKELETAL: Absent: myalgia, arthralgia, joint swelling, back pain, neck pain SKIN: Absent: rash, itching, pallor HEMATOLOGIC/IMMUNOLOGIC: Absent: easy bleeding, easy bruising, lymphadenopathy, frequent infections ENDOCRINE: Absent: unexplained weight gain, unexplained weight loss, heat intolerance, cold intolerance NEUROLOGIC: Absent: headache, focal weakness or paresthesias, dizziness, unsteady gait, s eizure, mental status changes, bladder or bowel incontinence PSYCHIATRIC: Absent: anxiety, depression, suicidal or homicidal ideation, hallucinations. PHYSICAL EXAMINATION Vital Signs - 24 hr 01/21/19 01/21/19 01/21/19 16:34 19:20 20:10 Temperature 98.5 F Pulse Rate 67 Pulse Rate [ 64 Apical] Respiratory 17 17 Rate Blood Pressure 105/48 L Blood Pressure 108/60 [Left Arm] O2 Sat by Pulse 95 96 96 Oximetry (%) GENERAL: Awake, alert, and fully oriented, in no acute distress.on NC 2l HEAD: Normal with no signs of trauma. EYES: Pupils equal, round and reactive to light, extraocular movements intact, right eye legally blind ENT: Moist mucous membranes. NECK: supple LUNGS:decrease breath sound at the bases , no crackles , no wheezes HEART: irr irr , normal S1 and S2 without murmur, rub or gallop. ABDOMEN: Soft, nontender, not distended, normoactive bowel sounds, R CVA tenderness and left but right worse LOWER EXTREMITIES: 2+ pulses, warm, well-perfused. +2 peripheral edema. NEUROLOGICAL: no focal deficit . Normal speech. PSYCHIATRIC: Cooperative. SKIN: Warm, dry, normal turgor, Laboratory Results - last 24 hr 01/21/19 01/21/19 01/21/19 17:22 17:22 17:22 WBC 6.4 RBC 5.18 Hgb 10.8 Hct 36.2 MCV 69.9 L MCH 20.8 L MCHC 29.8 L RDW 19.1 H Plt Count 194 MPV 10.4 D Absolute Neuts (auto) 4.3 Neutrophils % No Result Required. Neutrophils % (Manual) 72.2 Band Neutrophils % 1.0 Lymphocytes % No Result Required. Lymphocytes % (Manual) 14.4 D Monocytes % (Manual) 3 L Eosinophils % (Manual) 0.0 Basophils % (Manual) 3.1 H D Myelocytes % (Man) 0 Promyelocytes % (Man) 0 Blast Cells % (Manual) 0 Nucleated RBC % 1 H Metamyelocytes 0 Hypochromia 1+ Platelet Estimate Normal Platelet Comment Giant plts Polychromasia 1+ Poikilocytosis 1+ Anisocytosis 1+ Microcytosis 1+ Macrocytosis 0 Ovalocytes 1+ Fragmented RBCs 1+ PT with INR 12.70 INR 1.08 PTT (Actin FS) 20.4 L Sodium Potassium Chloride Carbon Dioxide Anion Gap BUN Creatinine Creat Clearance w eGFR Random Glucose Calcium Magnesium Total Bilirubin AST ALT Alkaline Phosphatase Creatine Kinase Troponin I B-Natriuretic Peptide 5126.9 H Total Protein Albumin Urine Color Urine Appearance Urine pH Ur Specific [place] Urine Protein Urine Glucose (UA) Urine Ketones Urine Blood Urine Nitrite Urine Bilirubin Urine Urobilinogen Ur Leukocyte Esterase 01/21/19 01/21/19 01/21/19 17:22 19:20 21:45 WBC RBC Hgb Hct MCV MCH MCHC RDW Plt Count MPV Absolute Neuts (auto) Neutrophils % Neutrophils % (Manual) Band Neutrophils % Lymphocytes % Lymphocytes % (Manual) Monocytes % (Manual) Eosinophils % (Manual) Basophils % (Manual) Myelocytes % (Man) Promyelocytes % (Man) Blast Cells % (Manual) Nucleated RBC % Metamyelocytes Hypochromia Platelet Estimate Platelet Comment Polychromasia Poikilocytosis Anisocytosis Microcytosis Macrocytosis Ovalocytes Fragmented RBCs PT with INR INR PTT (Actin FS) Sodium Cancelled 143 Potassium Cancelled 4.6 Chloride Cancelled 102 Carbon Dioxide Cancelled 37 H Anion Gap Cancelled 4 L BUN Cancelled 36 H Creatinine Cancelled 0.9 Creat Clearance w eGFR Cancelled 58.95 Random Glucose Cancelled 192 H Calcium Cancelled 9.0 Magnesium Cancelled Total Bilirubin Cancelled 0.6 AST Cancelled 15 ALT Cancelled 24 Alkaline Phosphatase Cancelled 67 Creatine Kinase Cancelled 40 Troponin I Cancelled 0.04 B-Natriuretic Peptide Total Protein Cancelled 6.2 L Albumin Cancelled 3.1 L Urine Color Yellow Urine Appearance Turbid Urine pH 8.0 D Ur Specific [place] 1.015 Urine Protein 30 Urine Glucose (UA) Negative Urine Ketones Negative Urine Blood 4+ H Urine Nitrite Positive H Urine Bilirubin Negative Urine Urobilinogen 1.0 Ur Leukocyte Esterase 4+ H CBC, BMP 01/21/19 17:22 01/21/19 19:20 CT abdomen pelvis as read by our radiologist demonstrates: 1. Double-J ureteral stent catheter in proper position right side. Punctate nonobstructing calculus lower pole collecting system right kidney. No obvious calculi identified along the course of the right ureteral stent catheter. 2. Exophytic cyst lower pole left kidney. No left urinary tract calculi or bladder calculi identified. 3. Status post cholecystectomy. Status post hysterectomy. ASSESSMENT/PLAN: 88 y/o F from [facility] w/PMH of Afib (not on AC due to hematuria), CHF, CAD, HTN, COPD (on 2L O2 at home)[facility] and left CVA tenserness was found to have UTI and admitted fir further evaluation # Acute complicated UTI * Left CVA tenderness , S/p right stent placement (B/L stent in October 2017 , removed 3 weeks later )she i still have stent in right side * CT scan with right side punctuate non obstructing lower lobe kidney stone * a febrile , BP 105/48 , * UA + nitrit , +4 LE , WBC 450 , hisotry of ESBL Echoli in the past * Isolation precautions * started on ertapenem 1 gm IV in ED will cont , till we have urine cx and sensitivity * Consult ID * consider consult urology in AM for possible stent removal * PT * fall precautions * Isolation precautions # acute on chronic hypoxemia due to copd , vs mild CHF exacerbation # COPD * on home o2 (2 L ) will cont , and resume symbicort , duoneb , albuterol PRN # DCHF exacerbation * cxr with enlarged heart * PE with decreased breath sound at the bases but no crackles * Echo on 07/2018 - EF 60-65%. LA mod/severely dilated. RA mod dilated. Mod MR. Mod TR. RVSP elevated at 74 mmHG. * resume home meds lasix 40 will switch to IV .resume spirnolacton 25 mg po daily * daily weight , I& O * LE +2 Edema , chronic # AFIB * on ASA, atenolol 50 po daily , resume * Irregular irrgeular , EKG with AFIB * no on AC due to hematuria # HTN * resume home meds Lisinopril 5 , lasix , spirnolacton #HLD * resume Lipitor 20 po HS # FEN * no standing fluids * Monitor lytes * Low NA diet # PROPH * SCDS , Lovenox 30 SQ daily * GI: ppi 20 po daily # Dispo * inpatient M/S # code status : Full code Visit type - Emergency Visit Emergency Visit: Yes Care time: The patient presented to the Emergency Department on the above date and was hospitalized for further evaluation of their emergent condition. - New Patient This patient is new to me today: Yes Date on this admission: 01/22/19 - Critical Care Critical Care patient: No
[2019-01-21 23:47] LABS: EPI CELLS 23 /HPF (0-5); URINE BACTERIA MANY /hpf (NEGATIVE); URINE CRYSTALS TRIPLE PHOSPHATE /hpf; URINE RBC 65 /hpf (0-4); URINE WBC 450 /hpf (0-5)
[2019-01-21 23:49] LABS: YEAST 0 (NEGATIVE)
--- NOTE | 2019-01-22 00:57 | PN ---
Teaching Attending Note Name of Resident: Cholo García ATTENDING PHYSICIAN STATEMENT I saw and evaluated the patient. I reviewed the resident's note and discussed the case with the resident. I agree with the resident's findings and plan as documented. SUBJECTIVE: This is an 88 year old woman with a history of HTN, hyperlipidemia, atrial fib, chronic diastolic heart failure, pulmonary HTN, chronic hypoxic respiratory failure, COPD, sarcoidosis, anemia, hemorrhagic cystitis, scoliosis who was sent to the ED from [facility] [place] for evaluation of hypoxia and right flank pain. She was found to have oxygen saturations in the high 80s which improved to 100% on 2 L. The patient reports feeling SOB yesterday. She has had worsening leg swelling. She also reports having dysuria and urinary frequency. She denies fever, chills, hematuria, nausea, vomiting, melena, rectal bleeding. OBJECTIVE: Vital Signs Period Temp Pulse Resp BP Sys/Garza Pulse Ox Last 24 Hr 98.5 F 64-67 17-17 105-108/48-60 95-96 HEART: Irregularly irregular LUNGS: Clear ABDOMEN: Soft, non-tender, non-distended, normal BS, (+) bilteral CVA tenderness EXTREMITIES: 2+ edema Laboratory Tests 01/21/19 01/21/19 01/21/19 17:22 17:22 17:22 WBC 6.4 RBC 5.18 Hgb 10.8 Hct 36.2 MCV 69.9 L MCH 20.8 L MCHC 29.8 L RDW 19.1 H Plt Count 194 MPV 10.4 D Absolute Neuts (auto) 4.3 Neutrophils % No Result Required. Neutrophils % (Manual) 72.2 Band Neutrophils % 1.0 Lymphocytes % No Result Required. Lymphocytes % (Manual) 14.4 D Monocytes % (Manual) 3 L Eosinophils % (Manual) 0.0 Basophils % (Manual) 3.1 H D Myelocytes % (Man) 0 Promyelocytes % (Man) 0 Blast Cells % (Manual) 0 Nucleated RBC % 1 H Metamyelocytes 0 Hypochromia 1+ Platelet Estimate Normal Platelet Comment Giant plts Polychromasia 1+ Poikilocytosis 1+ Anisocytosis 1+ Microcytosis 1+ Macrocytosis 0 Ovalocytes 1+ Fragmented RBCs 1+ PT with INR 12.70 INR 1.08 PTT (Actin FS) 20.4 L Sodium Potassium Chloride Carbon Dioxide Anion Gap BUN Creatinine Creat Clearance w eGFR Random Glucose Calcium Magnesium Total Bilirubin AST ALT Alkaline Phosphatase Creatine Kinase Troponin I B-Natriuretic Peptide 5126.9 H Total Protein Albumin Urine Color Urine Appearance Urine pH Ur Specific [place] Urine Protein Urine Glucose (UA) Urine Ketones Urine Blood Urine Nitrite Urine Bilirubin Urine Urobilinogen Ur Leukocyte Esterase Urine WBC (Auto) Urine RBC (Auto) U Epithel Cells (Auto) Urine Crystals (Auto) Urine Bacteria (Auto) Urine Yeast (Auto) 01/21/19 01/21/19 01/21/19 17:22 19:20 21:45 WBC RBC Hgb Hct MCV MCH MCHC RDW Plt Count MPV Absolute Neuts (auto) Neutrophils % Neutrophils % (Manual) Band Neutrophils % Lymphocytes % Lymphocytes % (Manual) Monocytes % (Manual) Eosinophils % (Manual) Basophils % (Manual) Myelocytes % (Man) Promyelocytes % (Man) Blast Cells % (Manual) Nucleated RBC % Metamyelocytes Hypochromia Platelet Estimate Platelet Comment Polychromasia Poikilocytosis Anisocytosis Microcytosis Macrocytosis Ovalocytes Fragmented RBCs PT with INR INR PTT (Actin FS) Sodium Cancelled 143 Potassium Cancelled 4.6 Chloride Cancelled 102 Carbon Dioxide Cancelled 37 H Anion Gap Cancelled 4 L BUN Cancelled 36 H Creatinine Cancelled 0.9 Creat Clearance w eGFR Cancelled 58.95 Random Glucose Cancelled 192 H Calcium Cancelled 9.0 Magnesium Cancelled Total Bilirubin Cancelled 0.6 AST Cancelled 15 ALT Cancelled 24 Alkaline Phosphatase Cancelled 67 Creatine Kinase Cancelled 40 Troponin I Cancelled 0.04 B-Natriuretic Peptide Total Protein Cancelled 6.2 L Albumin Cancelled 3.1 L Urine Color Yellow Urine Appearance Turbid Urine pH 8.0 D Ur Specific [place] 1.015 Urine Protein 30 Urine Glucose (UA) Negative Urine Ketones Negative Urine Blood 4+ H Urine Nitrite Positive H Urine Bilirubin Negative Urine Urobilinogen 1.0 Ur Leukocyte Esterase 4+ H Urine WBC (Auto) 450 Urine RBC (Auto) 65 U Epithel Cells (Auto) 23 Urine Crystals (Auto) Triple phosphate Urine Bacteria (Auto) Many Urine Yeast (Auto) 0 Home Medications Medication Instructions Recorded Atorvastatin Ca [Lipitor] 20 mg PO HS 04/16/18 Acetaminophen [Tylenol] 650 mg PO DAILY 01/21/19 Atenolol [Tenormin] 50 mg PO DAILY 01/21/19 Atorvastatin Ca [Lipitor] 20 mg PO HS 01/21/19 Atorvastatin Calcium [Lipitor] 20 mg PO DAILY 01/21/19 Budesonide/Formeterol Fumarate 1 inh PO DAILY 01/21/19 [SYMBICORT 160/4.5mcg -] Furosemide [Lasix] 40 mg PO DAILY 01/21/19 Lisinopril [Prinivil] 5 mg PO DAILY 01/21/19 Omeprazole 20 mg PO DAILY 01/21/19 Prednisone 5 mg PO DAILY 01/21/19 Spironolactone [Aldactone] 25 mg .ROUTE DAILY 01/21/19 ASSESSMENT AND PLAN: This is an 88 year old woman with a history of HTN, hyperlipidemia, atrial fib, chronic diastolic heart failure, pulmonary HTN, chronic hypoxic respiratory failure, COPD, sarcoidosis, anemia, hemorrhagic cystitis, scoliosis who presented to the ED from [facility] for evaluation of hypoxia and right flank pain. 1. Acute on chronic hypoxic and hypercapnic respiratory failure secondary to acute on chronic diastolic heart failure - Given Lasix 40 mg IV in ED - Continue Lasix IV - Monitor I&O, weight - Oxygen to maintain saturation > 90% 2. UTI - Has history of ESBL E. coli UTI (last 12/19/18) - Start ertapenem - ID consult - Follow up urine culture 3. HTN - Continue lisinopril, atenolol, Aldactone, Lasix 4. Hyperlipidemia - Continue Lipitor 5. Permanent atrial fib - Rate controlled - Continue Atenolol - Not on anticoagulation secondary to hemorrhagic cystitis 6. COPD - Stable - Continue Symbicort 7. Pulmonary HTN 8. Sarcoidosis 9. Anemia secondary to chronic illness - Hgb stable
[2019-01-22 06:24] LABS: BASO % 0.5 % (0-2.0); EOS % 0.6 % (0-4.5); HEMOGLOBIN 10.5 GM/dL (10.7-15.3); LYMPH % 49.6 % (8-40); MCH 21.1 pg (25.7-33.7); MCHC 30.2 g/dl (32.0-36.0); MEAN CELL VOLUME 69.9 fl (80-96); MEAN PLT VOLUME 9.6 fl (7.5-11.1); MONO % 8.9 % (3.8-10.2); NEUT % 40.4 % (42.8-82.8); PLATELET COUNT 138 K/MM3 (134-434); WHITE BLOOD COUNT 5.1 K/mm3 (4.0-10.0)
[2019-01-22 06:52] LABS: ALBUMIN 2.8 g/dl (3.4-5.0); ALK PHOS 60 U/L (45-117); ANION GAP 3 MMOL/L (8-16); BILIRUBIN,TOTAL 0.6 mg/dL (0.2-1); BLOOD UREA NITROGEN 33 mg/dL (7-18); CALCIUM 8.9 mg/dL (8.5-10.1); CHLORIDE 105 mmol/L (98-107); CO2 36 mmol/L (21-32); CREATININE 0.9 mg/dL (0.55-1.3); GLUCOSE,RANDOM 99 mg/dL (74-106); MAGNESIUM 2.2 mg/dL (1.8-2.4); PHOSPHOROUS 4.1 mg/dL (2.5-4.9); POTASSIUM 4.6 mmol/L (3.5-5.1); SGOT/AST 12 U/L (15-37); SGPT/ALT 23 U/L (13-61); SODIUM 144 mmol/L (136-145); TOT PROT 5.9 g/dl (6.4-8.2)
[2019-01-22] MEDS ORDERED: FUROSEMIDE 40 MG TABLET (FP) PO SCH (10:00)
[2019-01-22] MEDS ORDERED: LISINOPRIL 5 MG TABLET (FP) ONE (10:16)
[2019-01-22] MEDS ORDERED: ATENOLOL 25 MG TABLET (FP) ONE (10:16)
[2019-01-22] MEDS ORDERED: ERTAPENEM SODIUM 1 GM VIAL ONE (10:17)
[2019-01-22] MEDS ORDERED: SPIRONOLACTONE 25 MG TABLET (FP) ONE (10:17)
[2019-01-22] MEDS ORDERED: ENOXAPARIN NA (PORCINE) 30 MG/0.3 ML DISP.SYRIN SQ ONE ×2 (10:17→10:18)
[2019-01-22] MEDS ORDERED: FUROSEMIDE 40 MG/4 ML INJECTABLE VIAL ONE (10:17)
[2019-01-22] MEDS: FUROSEMIDE 40 MG/4 ML INJECTABLE VIAL IVPUSH SCH (10:18)
[2019-01-22] MEDS: ENOXAPARIN NA (PORCINE) 30 MG/0.3 ML DISP.SYRIN SQ SCH (10:18)
[2019-01-22] MEDS: LISINOPRIL 5 MG TABLET (FP) PO SCH (10:19)
[2019-01-22] MEDS: SPIRONOLACTONE 25 MG TABLET (FP) PO SCH (10:19)
[2019-01-22] MEDS: ATENOLOL 50 MG TABLET (FP) PO SCH (10:19)
[2019-01-22] MEDS: ERTAPENEM SODIUM 1 GM in SODIUM CHLORIDE 50 ML IVPB SCH (10:19)
[2019-01-22] MEDS: predniSONE 5 MG TABLET (UD) PO SCH (10:19)
--- NOTE | 2019-01-22 11:33 | PN ---
Physical Exam: SUBJECTIVE: Patient seen and examined at bedside this morning. She endorses dysuria, without hematuria. She endorses right sided flank pain. She denies subjective fevers, admits chills and shortness of breath. OBJECTIVE: Vital Signs Period Temp Pulse Resp BP Sys/Garza Pulse Ox Last 24 Hr 97.6 F-98.5 F 64-88 16-17 105-143/48-83 95-99 GENERAL: The patient is awake, alert, and fully oriented, in no acute distress. HEAD: Normocephalic, atraumatic. EYES: PERRL, extraocular movements intact, sclera anicteric, conjunctiva clear. ENT: Oropharynx clear without exudates, dry mucous membranes. NECK: Trachea midline, supple without lymphadenopathy. LUNGS: Good inspiratory effort and air entry bilaterally. Breath sounds equal, clear to auscultation bilaterally, no wheezes, no crackles. No accessory muscle use. HEART: Irregularly irregular rate and rhythm, S1, S2 without murmur, rub or gallop. ABDOMEN: Soft, nondistended, , no guarding, no rebound tenderness, nontender to light and deep palpation x4 quadrants. Normoactive bowel sounds x4 quadrants. Positive right sided CVA tenderness. EXTREMITIES: 2+ radial pulses, 1+ dorsalis pedis pulses bilaterally. Warm, well- perfused. 2+ bilateral lower extremity edema. NEUROLOGICAL: Cranial nerves II through XII grossly intact. Normal speech, gait not observed. PSYCH: Normal mood, normal affect upon my encounter. SKIN: Warm, dry. Laboratory Results - last 24 hr 01/21/19 01/21/19 01/21/19 17:22 17:22 17:22 WBC 6.4 RBC 5.18 Hgb 10.8 Hct 36.2 MCV 69.9 L MCH 20.8 L MCHC 29.8 L RDW 19.1 H Plt Count 194 MPV 10.4 D Absolute Neuts (auto) 4.3 Neutrophils % No Result Required. Neutrophils % (Manual) 72.2 Band Neutrophils % 1.0 Lymphocytes % No Result Required. Lymphocytes % (Manual) 14.4 D Monocytes % Monocytes % (Manual) 3 L Eosinophils % Eosinophils % (Manual) 0.0 Basophils % Basophils % (Manual) 3.1 H D Myelocytes % (Man) 0 Promyelocytes % (Man) 0 Blast Cells % (Manual) 0 Nucleated RBC % 1 H Metamyelocytes 0 Hypochromia 1+ Platelet Estimate Normal Platelet Comment Giant plts Polychromasia 1+ Poikilocytosis 1+ Anisocytosis 1+ Microcytosis 1+ Macrocytosis 0 Ovalocytes 1+ Fragmented RBCs 1+ PT with INR 12.70 INR 1.08 PTT (Actin FS) 20.4 L Sodium Potassium Chloride Carbon Dioxide Anion Gap BUN Creatinine Creat Clearance w eGFR Random Glucose Calcium Phosphorus Magnesium Total Bilirubin AST ALT Alkaline Phosphatase Creatine Kinase Troponin I B-Natriuretic Peptide 5126.9 H Total Protein Albumin Urine Color Urine Appearance Urine pH Ur Specific [place] Urine Protein Urine Glucose (UA) Urine Ketones Urine Blood Urine Nitrite Urine Bilirubin Urine Urobilinogen Ur Leukocyte Esterase Urine WBC (Auto) Urine RBC (Auto) U Epithel Cells (Auto) Urine Crystals (Auto) Urine Bacteria (Auto) Urine Yeast (Auto) 01/21/19 01/21/19 01/21/19 17:22 19:20 21:45 WBC RBC Hgb Hct MCV MCH MCHC RDW Plt Count MPV Absolute Neuts (auto) Neutrophils % Neutrophils % (Manual) Band Neutrophils % Lymphocytes % Lymphocytes % (Manual) Monocytes % Monocytes % (Manual) Eosinophils % Eosinophils % (Manual) Basophils % Basophils % (Manual) Myelocytes % (Man) Promyelocytes % (Man) Blast Cells % (Manual) Nucleated RBC % Metamyelocytes Hypochromia Platelet Estimate Platelet Comment Polychromasia Poikilocytosis Anisocytosis Microcytosis Macrocytosis Ovalocytes Fragmented RBCs PT with INR INR PTT (Actin FS) Sodium Cancelled 143 Potassium Cancelled 4.6 Chloride Cancelled 102 Carbon Dioxide Cancelled 37 H Anion Gap Cancelled 4 L BUN Cancelled 36 H Creatinine Cancelled 0.9 Creat Clearance w eGFR Cancelled 58.95 Random Glucose Cancelled 192 H Calcium Cancelled 9.0 Phosphorus Magnesium Cancelled Total Bilirubin Cancelled 0.6 AST Cancelled 15 ALT Cancelled 24 Alkaline Phosphatase Cancelled 67 Creatine Kinase Cancelled 40 Troponin I Cancelled 0.04 B-Natriuretic Peptide Total Protein Cancelled 6.2 L Albumin Cancelled 3.1 L Urine Color Yellow Urine Appearance Turbid Urine pH 8.0 D Ur Specific [place] 1.015 Urine Protein 30 Urine Glucose (UA) Negative Urine Ketones Negative Urine Blood 4+ H Urine Nitrite Positive H Urine Bilirubin Negative Urine Urobilinogen 1.0 Ur Leukocyte Esterase 4+ H Urine WBC (Auto) 450 Urine RBC (Auto) 65 U Epithel Cells (Auto) 23 Urine Crystals (Auto) Triple phosphate Urine Bacteria (Auto) Many Urine Yeast (Auto) 0 01/22/19 01/22/19 01/22/19 00:55 06:00 06:00 WBC 5.1 RBC 5.00 Hgb 10.5 L Hct 35.0 MCV 69.9 L MCH 21.1 L MCHC 30.2 L RDW 19.0 H Plt Count 138 D MPV 9.6 Absolute Neuts (auto) 2.1 Neutrophils % 40.4 L D Neutrophils % (Manual) 37.0 L Band Neutrophils % Lymphocytes % 49.6 H D Lymphocytes % (Manual) 53.0 H D Monocytes % 8.9 D Monocytes % (Manual) 9 D Eosinophils % 0.6 Eosinophils % (Manual) 1.0 D Basophils % 0.5 Basophils % (Manual) Myelocytes % (Man) Promyelocytes % (Man) Blast Cells % (Manual) Nucleated RBC % 0 Metamyelocytes Hypochromia 1+ Platelet Estimate Platelet Comment Polychromasia Poikilocytosis Anisocytosis Microcytosis Macrocytosis Ovalocytes Fragmented RBCs PT with INR INR PTT (Actin FS) Sodium 144 Potassium 4.6 Chloride 105 Carbon Dioxide 36 H Anion Gap 3 L BUN 33 H Creatinine 0.9 Creat Clearance w eGFR 58.95 Random Glucose 99 Calcium 8.9 Phosphorus 4.1 Magnesium 2.2 Total Bilirubin 0.6 AST 12 L ALT 23 Alkaline Phosphatase 60 Creatine Kinase Troponin I Cancelled 0.04 B-Natriuretic Peptide Total Protein 5.9 L Albumin 2.8 L Urine Color Urine Appearance Urine pH Ur Specific [place] Urine Protein Urine Glucose (UA) Urine Ketones Urine Blood Urine Nitrite Urine Bilirubin Urine Urobilinogen Ur Leukocyte Esterase Urine WBC (Auto) Urine RBC (Auto) U Epithel Cells (Auto) Urine Crystals (Auto) Urine Bacteria (Auto) Urine Yeast (Auto) Active Medications Generic Name Dose Route Start Last Admin Trade Name Freq PRN Reason Stop Dose Admin Atenolol 50 mg 01/22/19 10:00 01/22/19 10:19 Tenormin - PO 50 mg DAILY LISA Administration Atorvastatin Calcium 20 mg 01/22/19 22:00 Lipitor - PO HS [facility] Budesonide/Formoterol Fumarate 1 puff 01/22/19 10:00 Symbicort 160/4.5mcg - IH DAILY LISA Enoxaparin Sodium 30 mg 01/22/19 10:00 01/22/19 10:18 Lovenox - SQ 30 mg DAILY LISA Administration Furosemide 40 mg 01/22/19 10:00 01/22/19 10:18 Lasix Injection - IVPUSH 40 mg DAILY LISA Administration Ertapenem 1 gm/ Sodium 50 mls @ 100 mls/hr 01/22/19 10:00 01/22/19 10:19 Chloride IVPB 100 mls/hr DAILY LISA Administration Lisinopril 5 mg 01/22/19 10:00 01/22/19 10:19 Prinivil PO 5 mg DAILY LISA Administration Prednisone 5 mg 01/22/19 10:00 01/22/19 10:19 Deltasone - PO 5 mg DAILY LISA Administration Spironolactone 25 mg 01/22/19 10:00 01/22/19 10:19 Aldactone - PO 25 mg DAILY LISA Administration ASSESSMENT/PLAN: Patient is an 87 year old female with PMH of CHF, Afib (not on anticoagulation) , COPD (on home oxygen), Asthma, HTN, HLD, ESBL urinary tract infection s/p bilateral stents, who presents with dysuria for past two weeks. Pyelonephritis -UA shows 4+ blood, 4+ leukocyte esterase, positive nitrates, 450 WBC. -Ertapenem 1 gram IV daily (day #2) -Follow urine culture -ID consult (Dr. Méndez) appreciated COPD -Nasal cannula 3L Oxygen -Symbicort 160/ 4.5mcg IH daily -Duoneb nebulizer PRN HTN -Lisinopril 5mg PO daily -Spironolactone 25mg PO daily HLD -Atorvastatin 20mg PO HS Afib -Rate control with Atenolol 50mg PO dialy -Holding home anticoagulation due to history of hematuria CHF -Lasix 40mg IV daily -monitor for worsening crackles FEN -No IV fluids -No electrolyte abnormalities -Na controlled diet Prophylaxis -Lovenox 30mg subq daily Disposition -Continue care in medical- surgical floor Contact precautions. Visit type - Emergency Visit Emergency Visit: Yes ED Registration Date: 01/22/19 Care time: The patient presented to the Emergency Department on the above date and was hospitalized for further evaluation of their emergent condition. - New Patient This patient is new to me today: Yes Date on this admission: 01/22/19 - Critical Care Critical Care patient: No - Discharge Referral Referred to [facility] No
--- NOTE | 2019-01-22 13:36 | PN ---
Teaching Attending Note Name of Resident: Josemanuel Penaloza ATTENDING PHYSICIAN STATEMENT I saw and evaluated the patient. I reviewed the resident's note and discussed the case with the resident. I agree with the resident's findings and plan as documented. SUBJECTIVE:breathing is improved. continues to have dysuria. denies CP, SOB< fever, chills, cough, hematuria OBJECTIVE: Last Vital Signs Temp Pulse Resp BP Pulse Ox 97.6 F 82 16 143/83 99 01/22/19 06:07 01/22/19 10:31 01/22/19 10:31 01/22/19 10:31 01/22/19 10:31 Intake & Output 01/19/19 01/20/19 01/21/19 01/22/19 23:59 23:59 23:59 23:59 Weight 130 lb General NAD CV S1 S2 + Lungs CTA B/L no wheezing/rales/rhonchi Abdomen soft +suprapubic tenderness B/L CVA tenderness edema 3+ pitting edema B/L LE ASSESSMENT AND PLAN: 88yo F wtih PMH afib, sarcoidosis, COPD on 2L NC, diastolic CHF, pulmonary HTN and chronic constipation sent from [facility] [place] presented with R flank pain assoc with dysuria and worsening leg swelling and found to have UTI with possible pyleonephritis and hypoxia 1. acute on chronic hypoxic hypercapnic respiratory failure- due to acute on chronic diastolic CHF. on lasix 40mg IV. currently saturating well on 2L NC which is baseline. ,monitor electrolytes. daily weights, strict I&O 2. UTI- no signs of pyelo on imaging. on ertapenem based on hx of ESBL Ecoli. contact precautions. await Ucx. ID consult 3. fecal retention- abdominal pain could be from this vs UTI. will start bowel regimen 4. afib- cont rate control. 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 sarcoidosis 6. pulmonary HTN 7. DVT ppx- lovenox
[2019-01-22] MEDS: POLYETHYLENE GLYCOL 3350 119 GM BTL PO SCH (14:35)
--- NOTE | 2019-01-22 15:34 | EKG ---
Test Reason : Blood Pressure : / mmHG Vent. Rate : 079 BPM Atrial Rate : 081 BPM P-R Int : 000 ms QRS Dur : 080 ms QT Int : 392 ms P-R-T Axes : 000 015 -12 degrees QTc Int : 449 ms ATRIAL FIBRILLATION ABNORMAL ECG WHEN COMPARED WITH ECG OF 28-DEC-2018 13:07, NO SIGNIFICANT CHANGE WAS FOUND Confirmed by BEE MAYERS MD ([id number]) on 01/22/2019 3:34:06 PM Referred By: Confirmed By:BEE MAYERS MD
--- NOTE | 2019-01-22 16:00 | CON.ID ---
Consult Consult Specialty:: infectious diseases Referred by:: savannah Reason for Consultation:: weakness lethargy,uti - History of Present Illness History of Present Illness: 88 y/o F from [facility] w/PMH of HTN , HLD ,Afib , CHF, CAD, HTN, COPD , ESBL UTI , S/P B/L stent placed in October 2018 send from [facility] for Hypoxemia and left CVA tenderness was found to have UTI and admitted fir further evaluation. patient was c/o of back pain mainly on the rt side mainly in the rt flank denies hematuria the patient continued to have pain for couple of days which was associated with burning and dysuria currently she is calm - History Source History Provided By: Patient, Medical Record Limitations to Obtaining History: Poor Historian - Past Medical History [employer]: Yes: Vertigo (intermittent) Cardio/Vascular: Yes: AFIB, CHF, HTN, Hyperlipdemia, Pulmonary Hypertension, Other (Sarcoidosis) Pulmonary: Yes: Asthma, COPD Gastrointestinal: Yes: GERD Renal/: Yes: Hematuria Psych: Yes: Depression Musculoskeletal: Yes: Osteoarthritis - Past Surgical History Past Surgical History: Yes: Cholecystectomy, Hysterectomy - Alcohol/Substance Use Hx Alcohol Use: No History of Substance Use: reports: None - Smoking History Smoking history: Never smoked Have you smoked in the past 12 months: No Aproximately how many cigarettes per day: 0 - Social History Usual Living Arrangement: Other (most recently has been at [place], and since developing pain has been ambulating with RW) History of Recent Travel: No Home Medications - Allergies Allergies/Adverse Reactions: Allergies Allergy/AdvReac Type Severity Reaction Status Date / Time levofloxacin [From Levaquin] Allergy Intermediate Itching Verified 01/21/19 16: 07 - Home Medications Home Medications: Ambulatory Orders RX: Atorvastatin Ca [Lipitor] 20 mg PO HS 04/16/18 Acetaminophen [Tylenol] 650 mg PO DAILY 01/21/19 Atenolol [Tenormin] 50 mg PO DAILY 01/21/19 Atorvastatin Ca [Lipitor] 20 mg PO HS 01/21/19 Atorvastatin Calcium [Lipitor] 20 mg PO DAILY 01/21/19 Budesonide/Formeterol Fumarate [SYMBICORT 160/4.5mcg -] 1 inh PO DAILY 01/21/19 Furosemide [Lasix] 40 mg PO DAILY 01/21/19 Lisinopril [Prinivil] 5 mg PO DAILY 01/21/19 RX: Omeprazole 20 mg PO DAILY 01/21/19 RX: Prednisone 5 mg PO DAILY 01/21/19 Spironolactone [Aldactone] 25 mg .ROUTE DAILY 01/21/19 Family Disease History - Family Disease History Family Disease History: Heart Disease: Father, Mother, Other: Sister (Colon cancer) Review of Systems - Review of Systems Constitutional: reports: No Symptoms Eyes: reports: No Symptoms HENT: reports: No Symptoms Neck: reports: No Symptoms Cardiovascular: reports: No Symptoms Respiratory: reports: SOB Gastrointestinal: reports: No Symptoms Genitourinary: reports: Flank Pain (rt) Musculoskeletal: reports: No Symptoms Neurological: reports: No Symptoms Endocrine: reports: No Symptoms Hematology/Lymphatic: reports: No Symptoms Psychiatric: reports: No Symptoms Physical Exam Vital Signs: Vital Signs Temperature 97.4 F L 01/22/19 15:28 Pulse Rate 70 01/22/19 15:28 Respiratory Rate 18 01/22/19 15:28 Blood Pressure 116/75 01/22/19 15:28 O2 Sat by Pulse Oximetry (%) 99 01/22/19 15:28 Constitutional: Yes: Well Nourished, No Distress, Calm HENT: Yes: Atraumatic Neck: Yes: Supple, Trachea Midline Cardiovascular: Yes: Pulse Irregular Respiratory: Yes: Regular, On Nasal O2, Poor Air Entry (bases) Gastrointestinal: Yes: Normal Bowel Sounds, Soft Musculoskeletal: Yes: WNL Extremities: Yes: WNL Neurological: Yes: Alert, Oriented Psychiatric: Yes: Alert, Oriented Labs: CBC, BMP 01/22/19 06:00 01/22/19 06:00 Imaging - Results Chest X-ray: Report Reviewed, Image Reviewed Cat Scan: Report Reviewed, Image Reviewed Assessment/Plan 88 y/o F from [facility] w/PMH of Afib (not on AC due to hematuria), CHF, CAD, HTN, COPD (on 2L O2 at home)send from [facility] for Hypoxemia and left CVA tenderness was found to have UTI Acute complicated UTI copd afib htn hld plan will start patient on abx await for finalization of cx rest as per the team nutrition
[2019-01-22] MEDS: ATORVASTATIN CA 20 MG TABLET (FP) PO SCH (22:33)
[2019-01-22] MEDS: BUDESONIDE/FORMETEROL FUMARATE 160/4.5 mcg INHALER IH SCH (22:34)
[2019-01-22] MEDS: DOCUSATE SODIUM 100 MG CAPSULE (FP) PO SCH (22:34)
[2019-01-23 03:45] VITALS: BMI 26.6
[2019-01-23 06:12] LABS: HEMATOCRIT 35.4 % (32.4-45.2); HEMOGLOBIN 10.6 GM/dL (10.7-15.3); MCH 20.9 pg (25.7-33.7); MCHC 29.8 g/dl (32.0-36.0); MEAN CELL VOLUME 70.1 fl (80-96); MEAN PLT VOLUME 9.6 fl (7.5-11.1); PLATELET COUNT 123 K/MM3 (134-434); RBC 5.05 M/mm3 (3.60-5.2); RDW 18.5 % (11.6-15.6); WHITE BLOOD COUNT 3.8 K/mm3 (4.0-10.0)
[2019-01-23 06:45] LABS: ALBUMIN 2.7 g/dl (3.4-5.0); ALK PHOS 59 U/L (45-117); ANION GAP 5 MMOL/L (8-16); BILIRUBIN,TOTAL 0.7 mg/dL (0.2-1); BLOOD UREA NITROGEN 25 mg/dL (7-18); CALCIUM 8.3 mg/dL (8.5-10.1); CHLORIDE 104 mmol/L (98-107); CO2 37 mmol/L (21-32); CREATININE 0.7 mg/dL (0.55-1.3); GLUCOSE,RANDOM 96 mg/dL (74-106); POTASSIUM 3.3 mmol/L (3.5-5.1); SGOT/AST 15 U/L (15-37); SGPT/ALT 21 U/L (13-61); SODIUM 146 mmol/L (136-145); TOT PROT 5.7 g/dl (6.4-8.2)
--- NOTE | 2019-01-23 07:41 | PN ---
Physical Exam: SUBJECTIVE: Patient seen and examined at bedside this morning. She admits improvement of her dysuria. Denies subjective fevers, chills, shortness of breath, chest pain, palpitations, abdominal pain, nausea, vomiting. OBJECTIVE: Vital Signs Period Temp Pulse Resp BP Sys/Garza Pulse Ox Last 24 Hr 97.4 F-98.8 F 70-88 16-20 106-143/57-83 97-99 GENERAL: The patient is awake, alert, and fully oriented, in no acute distress. HEAD: Normocephalic, atraumatic. EYES: PERRL, extraocular movements intact, sclera anicteric, conjunctiva clear. ENT: Oropharynx clear without exudates, dry mucous membranes. NECK: Trachea midline, supple without lymphadenopathy. LUNGS: Good inspiratory effort and air entry bilaterally. Breath sounds equal, clear to auscultation bilaterally, no wheezes, no crackles. No accessory muscle use. HEART: Irregularly irregular rate and rhythm, S1, S2 without murmur, rub or gallop. ABDOMEN: Soft, nondistended, no guarding, no rebound tenderness. Nontender to light and deep palpation x4 quadrants. Normoactive bowel sounds x4 quadrants. Positive right sided CVA tenderness. EXTREMITIES: 2+ radial pulses, 1+ dorsalis pedis pulses bilaterally. 2+ bilateral lower extremity edema up to the knees. NEUROLOGICAL: Cranial nerves II through XII grossly intact. Normal speech, gait not observed. PSYCH: Normal mood, normal affect upon my encounter. SKIN: Warm, dry. Laboratory Results - last 24 hr 01/22/19 01/23/19 01/23/19 06:00 05:10 05:10 WBC 3.8 L RBC 5.05 Hgb 10.6 L Hct 35.4 MCV 70.1 L MCH 20.9 L MCHC 29.8 L RDW 18.5 H Plt Count 123 L MPV 9.6 Neutrophils % (Manual) 37.0 L Lymphocytes % (Manual) 53.0 H D Monocytes % (Manual) 9 D Eosinophils % (Manual) 1.0 D Hypochromia 1+ Sodium 146 H Potassium 3.3 L Chloride 104 Carbon Dioxide 37 H Anion Gap 5 L BUN 25 H Creatinine 0.7 Creat Clearance w eGFR 78.79 Random Glucose 96 Calcium 8.3 L Total Bilirubin 0.7 AST 15 ALT 21 Alkaline Phosphatase 59 Total Protein 5.7 L Albumin 2.7 L Active Medications Generic Name Dose Route Start Last Admin Trade Name Freq PRN Reason Stop Dose Admin Atenolol 50 mg 01/22/19 10:00 01/22/19 10:19 Tenormin - PO 50 mg DAILY LISA Administration Atorvastatin Calcium 20 mg 01/22/19 22:00 01/22/19 22:33 Lipitor - PO 20 mg HS LISA Administration Budesonide/Formoterol Fumarate 2 puff 01/22/19 22:00 01/22/19 22:34 Symbicort 160/4.5mcg - IH 2 puff BID LISA Administration Docusate Sodium 300 mg 01/22/19 22:00 01/22/19 22:34 Colace - PO 300 mg HS LISA Administration Enoxaparin Sodium 30 mg 01/22/19 10:00 01/22/19 10:18 Lovenox - SQ 30 mg DAILY LISA Administration Furosemide 40 mg 01/22/19 10:00 01/22/19 10:18 Lasix Injection - IVPUSH 40 mg DAILY LISA Administration Ertapenem 1 gm/ Sodium 50 mls @ 100 mls/hr 01/22/19 10:00 01/22/19 10:19 Chloride IVPB 100 mls/hr DAILY LISA Administration Lisinopril 5 mg 01/22/19 10:00 01/22/19 10:19 Prinivil PO 5 mg DAILY LISA Administration Polyethylene Glycol 17 gm 01/22/19 13:45 01/22/19 14:35 Miralax (For Daily Use) - PO Not Given DAILY LISA Prednisone 5 mg 01/22/19 10:00 01/22/19 10:19 Deltasone - PO 5 mg DAILY LISA Administration Spironolactone 25 mg 01/22/19 10:00 01/22/19 10:19 Aldactone - PO 25 mg DAILY LISA Administration ASSESSMENT/PLAN: Patient is an 87 year old female with PMH of CHF, Afib (not on anticoagulation) , COPD (on home oxygen), Asthma, HTN, HLD, ESBL urinary tract infection s/p bilateral stents, who presents with dysuria for past two weeks. Pyelonephritis -UA shows 4+ blood, 4+ leukocyte esterase, positive nitrates, 450 WBC. -Ertapenem 1 gram IV daily (day #3) -Follow urine culture -ID consult (Dr. Méndez) appreciated COPD -Nasal cannula 3L Oxygen -Symbicort 160/ 4.5mcg IH daily -Duoneb nebulizer PRN HTN -Lisinopril 5mg PO daily -Spironolactone 25mg PO daily HLD -Atorvastatin 20mg PO HS Afib -Rate control with Atenolol 50mg PO dialy -Holding home anticoagulation due to history of hematuria CHF -Inrease Lasix dose to 40mg IV BID -Strict intake and outputs Microcytic anemia -Hemodynamics currently stable. -Follow Iron studies -Follow Hb/ Hct Hypokalemia -Repleted with KCL 20meq PO -Follow CMP Constipation -Miralax 17 grams PO daily FEN -No IV fluids -Hypokalemia, repleted. -Sodium controlled controlled diet Prophylaxis -Lovenox 30mg subq daily Disposition -Continue care in medical- surgical floor Contact precautions. Visit type - Emergency Visit Emergency Visit: Yes ED Registration Date: 01/22/19 Care time: The patient presented to the Emergency Department on the above date and was hospitalized for further evaluation of their emergent condition. - New Patient This patient is new to me today: No - Critical Care Critical Care patient: No - Discharge Referral Referred to [facility] Med P.C.: No
[2019-01-23] MEDS ORDERED: POTASSIUM CHLORIDE ORAL LIQUID 20 MEQ/15 ML PO ONE (08:09)
[2019-01-23] MEDS ORDERED: ACETAMINOPHEN 325 MG TABLET (FP) PO PRN (08:55)
[2019-01-23] MEDS ORDERED: PT OWN MED DRAWER 7, Y5N ONE (09:03)
[2019-01-23] MEDS: POTASSIUM CHLORIDE TABS 20 MEQ TABLET.ER (FP) PO SCH (09:09)
[2019-01-23] MEDS: ENOXAPARIN NA (PORCINE) 30 MG/0.3 ML DISP.SYRIN SQ SCH (09:09)
[2019-01-23] MEDS: LISINOPRIL 5 MG TABLET (FP) PO SCH (09:09)
[2019-01-23] MEDS: ATENOLOL 50 MG TABLET (FP) PO SCH (09:10)
[2019-01-23] MEDS: predniSONE 5 MG TABLET (UD) PO SCH (09:10)
[2019-01-23] MEDS: FUROSEMIDE 40 MG/4 ML INJECTABLE VIAL IVPUSH SCH ×2 (09:10→18:01)
[2019-01-23] MEDS: SPIRONOLACTONE 25 MG TABLET (FP) PO SCH (09:10)
[2019-01-23] MEDS: POLYETHYLENE GLYCOL 3350 119 GM BTL PO SCH ×2 (09:10→09:14)
[2019-01-23] MEDS: BUDESONIDE/FORMETEROL FUMARATE 160/4.5 mcg INHALER IH SCH ×2 (09:10→22:03)
[2019-01-23] MEDS: ERTAPENEM SODIUM 1 GM in SODIUM CHLORIDE 50 ML IVPB SCH (10:54)
--- NOTE | 2019-01-23 12:10 | PN ---
Progress Note, Physician History of Present Illness: looks much better no new issues says she is doing well - Current Medication List Current Medications: Active Medications Acetaminophen (Tylenol -) 650 mg PO Q6H PRN PRN Reason: FEVER Atenolol (Tenormin -) 50 mg PO DAILY [facility] Last Admin: 01/23/19 09:10 Dose: 50 mg Atorvastatin Calcium (Lipitor -) 20 mg PO HS [facility] Last Admin: 01/22/19 22:33 Dose: 20 mg Budesonide/Formoterol Fumarate (Symbicort 160/4.5mcg -) 2 puff IH BID [facility] Last Admin: 01/23/19 09:10 Dose: 2 puff Docusate Sodium (Colace -) 300 mg PO HS [facility] Last Admin: 01/22/19 22:34 Dose: 300 mg Enoxaparin Sodium (Lovenox -) 30 mg SQ DAILY [facility] Last Admin: 01/23/19 09:09 Dose: 30 mg Furosemide (Lasix Injection -) 40 mg IVPUSH DAILY [facility] Last Admin: 01/23/19 09:10 Dose: 40 mg Ertapenem 1 gm/ Sodium (Chloride) 50 mls @ 100 mls/hr IVPB DAILY [facility] Last Admin: 01/23/19 10:54 Dose: 100 mls/hr Lisinopril (Prinivil) 5 mg PO DAILY [facility] Last Admin: 01/23/19 09:09 Dose: 5 mg Polyethylene Glycol (Miralax (For Daily Use) -) 17 gm PO DAILY [facility] Last Admin: 01/23/19 09:14 Dose: Not Given Potassium Chloride (K-Dur -) 20 meq PO DAILY [facility] Last Admin: 01/23/19 09:09 Dose: 20 meq Prednisone (Deltasone -) 5 mg PO DAILY [facility] Last Admin: 01/23/19 09:10 Dose: 5 mg Spironolactone (Aldactone -) 25 mg PO DAILY [facility] Last Admin: 01/23/19 09:10 Dose: 25 mg - Objective Vital Signs: Vital Signs Temperature 98.8 F 01/23/19 06:18 Pulse Rate 78 01/23/19 06:18 Respiratory Rate 20 01/23/19 06:18 Blood Pressure 106/57 L 01/23/19 06:18 O2 Sat by Pulse Oximetry (%) 97 01/22/19 21:00 Constitutional: Yes: No Distress, Calm Cardiovascular: Yes: Regular Rate and Rhythm Respiratory: Yes: Regular, CTA Bilaterally Gastrointestinal: Yes: Normal Bowel Sounds, Soft Musculoskeletal: Yes: WNL Extremities: Yes: WNL Neurological: Yes: Alert, Oriented Psychiatric: Yes: Alert, Oriented Labs: CBC, BMP 01/23/19 05:10 01/23/19 05:10 INR, PTT INR 1.08 (0.83-1.09) 01/21/19 17:22 Assessment/Plan 88 y/o F from [facility] w/PMH of Afib (not on AC due to hematuria), CHF, CAD, HTN, COPD (on 2L O2 at home)send from [facility] for Hypoxemia and left CVA tenderness was found to have UTI Acute complicated UTI copd afib htn hld plan continue abx await for finalization of cx rest as per the team nutrition
--- NOTE | 2019-01-23 18:56 | PN ---
Teaching Attending Note Name of Resident: Josemanuel Penaloza ATTENDING PHYSICIAN STATEMENT I saw and evaluated the patient. I reviewed the resident's note and discussed the case with the resident. I agree with the resident's findings and plan as documented. SUBJECTIVE: Tearful, reports missing dentures and glasses, anxious, dyspnea improving. Dysuria resolved. No fever/chills. OBJECTIVE: Afebrile, Hemodynamically Stable. AAo x 3. Tearful. Anxious. Last Vital Signs Temp Pulse Resp BP Pulse Ox 98.3 F 115 H 20 106/69 97 01/23/19 17:06 01/23/19 17:06 01/23/19 17:06 01/23/19 17:06 01/23/19 09:00 HEENT - Atraumatic, Normocephalic. Heart -S1, S2, RRR Lungs decreased air entry bibasally. Abdomen - Soft, non-tender. Bowel Sounds normal. Extremities - pitting edema to knees. No calf tenderness Laboratory Results - last 24 hr 01/23/19 01/23/19 05:10 05:10 WBC 3.8 L RBC 5.05 Hgb 10.6 L Hct 35.4 MCV 70.1 L MCH 20.9 L MCHC 29.8 L RDW 18.5 H Plt Count 123 L MPV 9.6 Sodium 146 H Potassium 3.3 L Chloride 104 Carbon Dioxide 37 H Anion Gap 5 L BUN 25 H Creatinine 0.7 Creat Clearance w eGFR 78.79 Random Glucose 96 Calcium 8.3 L Ferritin 167.4 Total Bilirubin 0.7 AST 15 ALT 21 Alkaline Phosphatase 59 Total Protein 5.7 L Albumin 2.7 L Current Medications Generic Name Dose Route Start Last Admin Trade Name Freq PRN Reason Stop Dose Admin Acetaminophen 650 mg 01/23/19 08:55 Tylenol - PO Q6H PRN FEVER Atenolol 50 mg 01/22/19 10:00 01/23/19 09:10 Tenormin - PO 50 mg DAILY LISA Administration Atorvastatin Calcium 20 mg 01/22/19 22:00 01/22/19 22:33 Lipitor - PO 20 mg HS LISA Administration Budesonide/Formoterol Fumarate 2 puff 01/22/19 22:00 01/23/19 09:10 Symbicort 160/4.5mcg - IH 2 puff BID LISA Administration Docusate Sodium 300 mg 01/22/19 22:00 01/22/19 22:34 Colace - PO 300 mg HS LISA Administration Enoxaparin Sodium 30 mg 01/22/19 10:00 01/23/19 09:09 Lovenox - SQ 30 mg DAILY LISA Administration Furosemide 40 mg 01/23/19 18:00 01/23/19 18:01 Lasix Injection - IVPUSH Not Given BIDLASIX LISA Ertapenem 1 gm/ Sodium 50 mls @ 100 mls/hr 01/22/19 10:00 01/23/19 10:54 Chloride IVPB 100 mls/hr DAILY LISA Administration Lisinopril 5 mg 01/22/19 10:00 01/23/19 09:09 Prinivil PO 5 mg DAILY LISA Administration Polyethylene Glycol 17 gm 01/22/19 13:45 01/23/19 09:14 Miralax (For Daily Use) - PO Not Given DAILY LISA Potassium Chloride 20 meq 01/23/19 10:00 01/23/19 09:09 K-Dur - PO 20 meq DAILY LISA Administration Prednisone 5 mg 01/22/19 10:00 01/23/19 09:10 Deltasone - PO 5 mg DAILY LISA Administration Spironolactone 25 mg 01/22/19 10:00 01/23/19 09:10 Aldactone - PO 25 mg DAILY LISA Administration ASSESSMENT AND PLAN: 88 year old female with PMH of Sarcoidosis, CRF sec to COPD on 2L NC, Chronic Diastolic CHF, Pulmonary HTN and Chronic constipation sent from [facility] [place] with R flank pain assoc with dysuria and worsening LE swelling, found to have UTI and Hypoxia. 1. Acute on Chronic Hypoxic Hypercapneic Respiratory Failure secondary to Acute on Chronic Diastolic CHF exacerbation. Continue IV Lasix diuresis. Daily Weight and I/Os 2. UTI - Continue Ertapenem (Hx of ESBL Ecoli). Prelim Urine Cx Proteus and Group D Strep or Enterococcus. Further Abx titration by ID pending final ID and sens. 3. Atrial Fibrillation - rate controlled - Continue BB. 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 4. CRF sec to COPD/Sarcoidosis - stable - on chronic steroids - Prednisone 5mg. Continue Symbicort and DuoNeb prn 5. Constipation - monitor on bowel regimen 6. HTN - Continue Lisinopril, Atenolol, Aldactone 7. HLD - Continue Lipitor. 8. Pulmonary HTN - on home O2. 9. Microcytic Anemia, RDW 18.5 - Chronic - Ferritin/Iron studies requested. DVT Px - Lovenox SQ
[2019-01-23] MEDS ORDERED: MAGNESIUM HYDROX 2400MG/30ML ORAL SUSPENSION 30 ML CUP PO PRN (19:28)
[2019-01-23] MEDS ORDERED: FUROSEMIDE 40 MG/4 ML INJECTABLE VIAL IVPUSH SCH (22:00)
[2019-01-23] MEDS: DOCUSATE SODIUM 100 MG CAPSULE (FP) PO SCH (22:02)
[2019-01-23] MEDS: SENNOSIDES 8.6MG TABLET (FP) PO SCH (22:02)
[2019-01-23] MEDS: ATORVASTATIN CA 20 MG TABLET (FP) PO SCH (22:02)
[2019-01-24] MEDS: FUROSEMIDE 40 MG/4 ML INJECTABLE VIAL IVPUSH SCH ×3 (06:17→16:51)
[2019-01-24 07:04] LABS: HEMATOCRIT 33.3 % (32.4-45.2); HEMOGLOBIN 9.9 GM/dL (10.7-15.3); MCH 20.9 pg (25.7-33.7); MCHC 29.8 g/dl (32.0-36.0); MEAN CELL VOLUME 70.3 fl (80-96); MEAN PLT VOLUME 9.4 fl (7.5-11.1); PLATELET COUNT 116 K/MM3 (134-434); RBC 4.73 M/mm3 (3.60-5.2); RDW 18.9 % (11.6-15.6); WHITE BLOOD COUNT 4.5 K/mm3 (4.0-10.0)
[2019-01-24 07:27] LABS: ALBUMIN 2.4 g/dl (3.4-5.0); ALK PHOS 61 U/L (45-117); ANION GAP 6 MMOL/L (8-16); BILIRUBIN,TOTAL 0.5 mg/dL (0.2-1); BLOOD UREA NITROGEN 22 mg/dL (7-18); CALCIUM 8.3 mg/dL (8.5-10.1); CHLORIDE 105 mmol/L (98-107); CO2 36 mmol/L (21-32); CREATININE 0.6 mg/dL (0.55-1.3); GLUCOSE,RANDOM 115 mg/dL (74-106); POTASSIUM 3.6 mmol/L (3.5-5.1); SGOT/AST 10 U/L (15-37); SGPT/ALT 17 U/L (13-61); SODIUM 146 mmol/L (136-145); TOT PROT 5.2 g/dl (6.4-8.2)
[2019-01-24] MEDS: ERTAPENEM SODIUM 1 GM in SODIUM CHLORIDE 50 ML IVPB SCH (11:10)
[2019-01-24] MEDS: ENOXAPARIN NA (PORCINE) 30 MG/0.3 ML DISP.SYRIN SQ SCH (11:10)
[2019-01-24] MEDS: predniSONE 5 MG TABLET (UD) PO SCH (11:11)
[2019-01-24] MEDS: POTASSIUM CHLORIDE TABS 20 MEQ TABLET.ER (FP) PO SCH (11:11)
[2019-01-24] MEDS: ATENOLOL 50 MG TABLET (FP) PO SCH (11:11)
[2019-01-24] MEDS: SPIRONOLACTONE 25 MG TABLET (FP) PO SCH (11:11)
[2019-01-24] MEDS: LISINOPRIL 5 MG TABLET (FP) PO SCH (11:12)
[2019-01-24] MEDS: POLYETHYLENE GLYCOL 3350 119 GM BTL PO SCH (11:52)
--- NOTE | 2019-01-24 12:01 | PN ---
Progress Note, Physician History of Present Illness: says she does not feel too well - Current Medication List Current Medications: Active Medications Acetaminophen (Tylenol -) 650 mg PO Q6H PRN PRN Reason: FEVER Atenolol (Tenormin -) 50 mg PO DAILY [facility] Last Admin: 01/24/19 11:11 Dose: 50 mg Atorvastatin Calcium (Lipitor -) 20 mg PO HS [facility] Last Admin: 01/23/19 22:02 Dose: 20 mg Budesonide/Formoterol Fumarate (Symbicort 160/4.5mcg -) 2 puff IH BID [facility] Last Admin: 01/23/19 22:03 Dose: 2 puff Docusate Sodium (Colace -) 300 mg PO HS [facility] Last Admin: 01/23/19 22:02 Dose: 300 mg Enoxaparin Sodium (Lovenox -) 30 mg SQ DAILY [facility] Last Admin: 01/24/19 11:10 Dose: 30 mg Furosemide (Lasix Injection -) 40 mg IVPUSH BIDLASIX [facility] Last Admin: 01/24/19 06:17 Dose: 40 mg Ertapenem 1 gm/ Sodium (Chloride) 50 mls @ 100 mls/hr IVPB DAILY [facility] Last Admin: 01/24/19 11:10 Dose: 100 mls/hr Lisinopril (Prinivil) 5 mg PO DAILY [facility] Last Admin: 01/24/19 11:12 Dose: 5 mg Magnesium Hydroxide (Milk Of Magnesia -) 30 ml PO DAILY PRN PRN Reason: CONSTIPATION Polyethylene Glycol (Miralax (For Daily Use) -) 17 gm PO DAILY [facility] Last Admin: 01/24/19 11:52 Dose: Not Given Potassium Chloride (K-Dur -) 20 meq PO DAILY [facility] Last Admin: 01/24/19 11:11 Dose: 20 meq Prednisone (Deltasone -) 5 mg PO DAILY [facility] Last Admin: 01/24/19 11:11 Dose: 5 mg Senna (Senna -) 2 tab PO HS [facility] Last Admin: 01/23/19 22:02 Dose: 2 tab Spironolactone (Aldactone -) 25 mg PO DAILY [facility] Last Admin: 01/24/19 11:11 Dose: 25 mg - Objective Vital Signs: Vital Signs Temperature 98.2 F 01/24/19 06:00 Pulse Rate 84 01/24/19 06:00 Respiratory Rate 20 01/24/19 06:00 Blood Pressure 122/67 01/24/19 06:00 O2 Sat by Pulse Oximetry (%) 97 01/23/19 21:00 Constitutional: Yes: No Distress, Calm Cardiovascular: Yes: Regular Rate and Rhythm Respiratory: Yes: Regular, CTA Bilaterally Gastrointestinal: Yes: Normal Bowel Sounds, Soft Musculoskeletal: Yes: WNL Extremities: Yes: WNL Neurological: Yes: Alert, Oriented Psychiatric: Yes: Alert, Oriented Labs: CBC, BMP 01/24/19 06:30 01/24/19 06:30 INR, PTT INR 1.08 (0.83-1.09) 01/21/19 17:22 Assessment/Plan 88 y/o F from [facility] w/PMH of Afib (not on AC due to hematuria), CHF, CAD, HTN, COPD (on 2L O2 at home)[facility] and left CVA tenderness was found to have UTI Acute complicated UTI copd afib htn hld plan continue abx await for finalization of cx rest as per the team nutrition
[2019-01-24] MEDS: BUDESONIDE/FORMETEROL FUMARATE 160/4.5 mcg INHALER IH SCH ×2 (12:28→21:24)
--- NOTE | 2019-01-24 13:40 | PN ---
Physical Exam: SUBJECTIVE: Patient seen and examined at bedside this morning. Last evening she was noted to be tachycardic to 115BPM, however upon EKG she was noted to be in Afib at 92 BPM. She endorses that she has not had bowel movement recently. Denies dysuria or hematuria. Denies subjective fevers, chills, shortness of breath, chest pain, palpitations, abdominal pain, nausea, vomiting. OBJECTIVE: Vital Signs Period Temp Pulse Resp BP Sys/Garza Pulse Ox Last 24 Hr 98.2 F-98.5 F 84-115 20-20 101-122/53-69 97 GENERAL: The patient is awake, alert, and fully oriented, in no acute distress. HEAD: Normocephalic, atraumatic. EYES: PERRL, extraocular movements intact, sclera anicteric, conjunctiva clear. ENT: Oropharynx clear without exudates, dry mucous membranes. NECK: Trachea midline, supple without lymphadenopathy. LUNGS: Good inspiratory effort and air entry bilaterally. Breath sounds equal, clear to auscultation bilaterally, no wheezes, no crackles. No accessory muscle use. HEART: Irregularly irregular rate and rhythm, S1, S2 without murmur, rub or gallop. ABDOMEN: Soft, nondistended, no guarding, no rebound tenderness. Nontender to light and deep palpation x4 quadrants. Normoactive bowel sounds x4 quadrants. Positive right sided CVA tenderness. EXTREMITIES: 2+ radial pulses, 1+ dorsalis pedis pulses bilaterally. 2+ bilateral lower extremity edema up to the knees. NEUROLOGICAL: Cranial nerves II through XII grossly intact. Normal speech, gait not observed. PSYCH: Normal mood, normal affect upon my encounter. SKIN: Warm, dry. Laboratory Results - last 24 hr 01/23/19 01/24/19 01/24/19 05:10 06:30 06:30 WBC 4.5 RBC 4.73 Hgb 9.9 L Hct 33.3 MCV 70.3 L MCH 20.9 L MCHC 29.8 L RDW 18.9 H Plt Count 116 L MPV 9.4 Sodium 146 H 146 H Potassium 3.3 L 3.6 Chloride 104 105 Carbon Dioxide 37 H 36 H Anion Gap 5 L 6 L BUN 25 H 22 H Creatinine 0.7 0.6 Creat Clearance w eGFR 78.79 94.13 Random Glucose 96 115 H Calcium 8.3 L 8.3 L Ferritin 167.4 Total Bilirubin 0.7 0.5 AST 15 10 L ALT 21 17 Alkaline Phosphatase 59 61 Total Protein 5.7 L 5.2 L Albumin 2.7 L 2.4 L Active Medications Generic Name Dose Route Start Last Admin Trade Name Freq PRN Reason Stop Dose Admin Acetaminophen 650 mg 01/23/19 08:55 Tylenol - PO Q6H PRN FEVER Atenolol 50 mg 01/22/19 10:00 01/24/19 11:11 Tenormin - PO 50 mg DAILY LISA Administration Atorvastatin Calcium 20 mg 01/22/19 22:00 01/23/19 22:02 Lipitor - PO 20 mg HS LISA Administration Budesonide/Formoterol Fumarate 2 puff 01/22/19 22:00 01/24/19 12:28 Symbicort 160/4.5mcg - IH 2 puff BID LISA Administration Docusate Sodium 300 mg 01/22/19 22:00 01/23/19 22:02 Colace - PO 300 mg HS LISA Administration Enoxaparin Sodium 30 mg 01/22/19 10:00 01/24/19 11:10 Lovenox - SQ 30 mg DAILY LISA Administration Furosemide 40 mg 01/23/19 18:00 01/24/19 06:17 Lasix Injection - IVPUSH 40 mg BIDLASIX LISA Administration Ertapenem 1 gm/ Sodium 50 mls @ 100 mls/hr 01/22/19 10:00 01/24/19 11:10 Chloride IVPB 100 mls/hr DAILY LISA Administration Lisinopril 5 mg 01/22/19 10:00 01/24/19 11:12 Prinivil PO 5 mg DAILY LISA Administration Magnesium Hydroxide 30 ml 01/23/19 19:28 Milk Of Magnesia - PO DAILY PRN CONSTIPATION Polyethylene Glycol 17 gm 01/22/19 13:45 01/24/19 11:52 Miralax (For Daily Use) - PO Not Given DAILY [facility] Potassium Chloride 20 meq 01/23/19 10:00 01/24/19 11:11 K-Dur - PO 20 meq DAILY LISA Administration Prednisone 5 mg 01/22/19 10:00 01/24/19 11:11 Deltasone - PO 5 mg DAILY LISA Administration Senna 2 tab 01/23/19 22:00 01/23/19 22:02 Senna - PO 2 tab HS LISA Administration Spironolactone 25 mg 01/22/19 10:00 01/24/19 11:11 Aldactone - PO 25 mg DAILY LISA Administration ASSESSMENT/PLAN: Patient is an 87 year old female with PMH of CHF, Afib (not on anticoagulation) , COPD (on home oxygen), Asthma, HTN, HLD, ESBL urinary tract infection s/p bilateral stents, who presents with dysuria for past two weeks. Urinary tract infection -UA shows 4+ blood, 4+ leukocyte esterase, positive nitrates, 450 WBC. -Ertapenem 1 gram IV daily (day #4) -Follow urine culture -ID consult (Dr. Méndez) appreciated COPD -Nasal cannula 3L Oxygen -Symbicort 160/ 4.5mcg IH daily -Duoneb nebulizer PRN -Prednisone 5mg PO daily CHF, acute on chronic hypoxic respiratory failure -Lasix 40mg IV BID -Strict intake and outputs HTN -Lisinopril 5mg PO daily -Spironolactone 25mg PO daily HLD -Atorvastatin 20mg PO HS Afib -Rate control with Atenolol 50mg PO dialy -Holding home anticoagulation due to history of hematuria Microcytic anemia -Hemodynamics currently stable. -Follow Iron studies -Follow Hb/ Hct Hypokalemia -Repleted with KCL 20meq PO -Follow CMP Constipation -Miralax 17 grams PO daily -Colace 300mg PO HS FEN -No IV fluids -Hypokalemia, repleted. -Sodium controlled controlled diet Prophylaxis -Lovenox 30mg subq daily Disposition -Continue care in medical- surgical floor Contact precautions. Visit type - Emergency Visit Emergency Visit: Yes ED Registration Date: 01/22/19 Care time: The patient presented to the Emergency Department on the above date and was hospitalized for further evaluation of their emergent condition. - New Patient This patient is new to me today: No - Critical Care Critical Care patient: No - Discharge Referral Referred to [facility] Med P.C.: No
--- NOTE | 2019-01-24 15:14 | EKG ---
Test Reason : Blood Pressure : / mmHG Vent. Rate : 092 BPM Atrial Rate : 061 BPM P-R Int : 000 ms QRS Dur : 080 ms QT Int : 366 ms P-R-T Axes : 000 015 -08 degrees QTc Int : 452 ms ATRIAL FIBRILLATION NONSPECIFIC ST ABNORMALITY ABNORMAL ECG WHEN COMPARED WITH ECG OF 21-JAN-2019 16:16, T WAVE INVERSION NO LONGER EVIDENT IN ANTERIOR LEADS Confirmed by JARON ROY, CLAIRE ([id number]) on 01/24/2019 3:14:07 PM Referred By: Confirmed By:CLAIRE SALMREON MD
--- NOTE | 2019-01-24 17:37 | PN ---
Teaching Attending Note Name of Resident: Josemanuel Penaloza ATTENDING PHYSICIAN STATEMENT I saw and evaluated the patient. I reviewed the resident's note and discussed the case with the resident. I agree with the resident's findings and plan as documented. SUBJECTIVE: Complains about general state of her health - no specific issues except for LE swelling, which she admits is improving. No cough/sputum/fever/ chills. OBJECTIVE: Afebrile, Hemodynamically Stable. AAo x 3. Last Vital Signs Temp Pulse Resp BP Pulse Ox 98.3 F 84 20 93/61 97 01/24/19 17:21 01/24/19 17:21 01/24/19 17:21 01/24/19 17:21 01/23/19 21:00 Heart -S1, S2, RRR Lungs decreased air entry bibasally, few crackles. Abdomen - Soft, non-tender. Bowel Sounds normal. Extremities - pitting edema to knees improving. No calf tenderness Laboratory Results - last 24 hr 01/24/19 01/24/19 06:30 06:30 WBC 4.5 RBC 4.73 Hgb 9.9 L Hct 33.3 MCV 70.3 L MCH 20.9 L MCHC 29.8 L RDW 18.9 H Plt Count 116 L MPV 9.4 Sodium 146 H Potassium 3.6 Chloride 105 Carbon Dioxide 36 H Anion Gap 6 L BUN 22 H Creatinine 0.6 Creat Clearance w eGFR 94.13 Random Glucose 115 H Calcium 8.3 L Total Bilirubin 0.5 AST 10 L ALT 17 Alkaline Phosphatase 61 Total Protein 5.2 L Albumin 2.4 L Current Medications Generic Name Dose Route Start Last Admin Trade Name Freq PRN Reason Stop Dose Admin Acetaminophen 650 mg 01/23/19 08:55 Tylenol - PO Q6H PRN FEVER Atenolol 50 mg 01/22/19 10:00 01/24/19 11:11 Tenormin - PO 50 mg DAILY LISA Administration Atorvastatin Calcium 20 mg 01/22/19 22:00 01/23/19 22:02 Lipitor - PO 20 mg HS LISA Administration Budesonide/Formoterol Fumarate 2 puff 01/22/19 22:00 01/24/19 12:28 Symbicort 160/4.5mcg - IH 2 puff BID LISA Administration Docusate Sodium 300 mg 01/22/19 22:00 01/23/19 22:02 Colace - PO 300 mg HS LISA Administration Enoxaparin Sodium 30 mg 01/22/19 10:00 01/24/19 11:10 Lovenox - SQ 30 mg DAILY LISA Administration Furosemide 40 mg 01/23/19 18:00 01/24/19 16:51 Lasix Injection - IVPUSH Not Given BIDLASIX LISA Ertapenem 1 gm/ Sodium 50 mls @ 100 mls/hr 01/22/19 10:00 01/24/19 11:10 Chloride IVPB 100 mls/hr DAILY LISA Administration Lisinopril 5 mg 01/22/19 10:00 01/24/19 11:12 Prinivil PO 5 mg DAILY LISA Administration Magnesium Hydroxide 30 ml 01/23/19 19:28 Milk Of Magnesia - PO DAILY PRN CONSTIPATION Polyethylene Glycol 17 gm 01/22/19 13:45 01/24/19 11:52 Miralax (For Daily Use) - PO Not Given DAILY LISA Potassium Chloride 20 meq 01/23/19 10:00 01/24/19 11:11 K-Dur - PO 20 meq DAILY LISA Administration Prednisone 5 mg 01/22/19 10:00 01/24/19 11:11 Deltasone - PO 5 mg DAILY LISA Administration Senna 2 tab 01/23/19 22:00 01/23/19 22:02 Senna - PO 2 tab HS LISA Administration Spironolactone 25 mg 01/22/19 10:00 01/24/19 11:11 Aldactone - PO 25 mg DAILY LISA Administration ASSESSMENT AND PLAN: 88 year old female with PMH of Sarcoidosis, CRF sec to COPD on 2L NC, Chronic Diastolic CHF, Pulmonary HTN and Chronic constipation sent from [facility] with R flank pain assoc with dysuria and worsening LE swelling, found to have UTI and Hypoxia. 1. Acute on Chronic Hypoxic Hypercapneic Respiratory Failure secondary to Acute on Chronic Diastolic CHF exacerbation. Continue IV Lasix diuresis. Daily Weight and I/Os 2. UTI - Continue Ertapenem (Hx of ESBL Ecoli). Prelim Urine Cx Proteus and Group D Strep or Enterococcus. Further Abx titration by ID pending final ID and sens. Afebrile and Hemodynamically Stable. 3. Atrial Fibrillation - rate controlled - Continue BB. 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 4. CRF sec to COPD/Sarcoidosis - stable - on chronic steroids - Prednisone 5mg. Continue Symbicort and DuoNeb prn 5. Constipation - on bowel regimen with MOM and Miralax prn. 6. HTN - Continue Lisinopril, Atenolol, Aldactone 7. HLD - Continue Lipitor. 8. Pulmonary HTN - on home O2. 9. Microcytic Anemia, RDW 18.5 - Chronic - Ferritin 167/Iron studies pending. DVT Px - Lovenox SQ
[2019-01-24] MEDS: ATORVASTATIN CA 20 MG TABLET (FP) PO SCH (21:23)
[2019-01-24] MEDS: SENNOSIDES 8.6MG TABLET (FP) PO SCH (21:23)
[2019-01-24] MEDS: DOCUSATE SODIUM 100 MG CAPSULE (FP) PO SCH (21:23)
[2019-01-25] MEDS: FUROSEMIDE 40 MG/4 ML INJECTABLE VIAL IVPUSH SCH ×2 (05:18→15:05)
--- NOTE | 2019-01-25 07:56 | PN ---
Physical Exam: SUBJECTIVE: Patient seen and examined at bedside this morning. She endorses improvement with her breathing. Patient states she had one formed, brown bowel movement without hematochezia last night. OBJECTIVE: Vital Signs Period Temp Pulse Resp BP Sys/Garza Pulse Ox Last 24 Hr 97.3 F-98.3 F 80-96 18-20 84-122/50-72 GENERAL: The patient is awake, alert, and fully oriented, in no acute distress. HEAD: Normocephalic, atraumatic. EYES: PERRL, extraocular movements intact, sclera anicteric, conjunctiva clear. ENT: Oropharynx clear without exudates, dry mucous membranes. NECK: Trachea midline, supple without lymphadenopathy. LUNGS: Good inspiratory effort and air entry bilaterally. Faint expiratory wheezes auscultated bilaterally. No accessory muscle use. HEART: Irregularly irregular rate and rhythm, S1, S2 without murmur, rub or gallop. ABDOMEN: Soft, nondistended, no guarding, no rebound tenderness. Nontender to light and deep palpation x4 quadrants. Normoactive bowel sounds x4 quadrants. Positive right sided CVA tenderness. EXTREMITIES: 2+ radial pulses, 1+ dorsalis pedis pulses bilaterally. 1+ bilateral lower extremity edema fdc up the legs. NEUROLOGICAL: Cranial nerves II through XII grossly intact. Normal speech, gait not observed. PSYCH: Normal mood, normal affect upon my encounter. SKIN: Warm, dry. Active Medications Generic Name Dose Route Start Last Admin Trade Name Freq PRN Reason Stop Dose Admin Acetaminophen 650 mg 01/23/19 08:55 Tylenol - PO Q6H PRN FEVER Atenolol 50 mg 01/22/19 10:00 01/24/19 11:11 Tenormin - PO 50 mg DAILY LISA Administration Atorvastatin Calcium 20 mg 01/22/19 22:00 01/24/19 21:23 Lipitor - PO 20 mg HS LISA Administration Budesonide/Formoterol Fumarate 2 puff 01/22/19 22:00 01/24/19 21:24 Symbicort 160/4.5mcg - IH 2 puff BID LISA Administration Docusate Sodium 300 mg 01/22/19 22:00 01/24/19 21:23 Colace - PO 300 mg HS LISA Administration Enoxaparin Sodium 30 mg 01/22/19 10:00 01/24/19 11:10 Lovenox - SQ 30 mg DAILY LISA Administration Furosemide 40 mg 01/23/19 18:00 01/25/19 05:18 Lasix Injection - IVPUSH 40 mg BIDLASIX LISA Administration Ertapenem 1 gm/ Sodium 50 mls @ 100 mls/hr 01/22/19 10:00 01/24/19 11:10 Chloride IVPB 100 mls/hr DAILY LISA Administration Lisinopril 5 mg 01/22/19 10:00 01/24/19 11:12 Prinivil PO 5 mg DAILY LISA Administration Magnesium Hydroxide 30 ml 01/23/19 19:28 Milk Of Magnesia - PO DAILY PRN CONSTIPATION Polyethylene Glycol 17 gm 01/22/19 13:45 01/24/19 11:52 Miralax (For Daily Use) - PO Not Given DAILY LISA Potassium Chloride 20 meq 01/23/19 10:00 01/24/19 11:11 K-Dur - PO 20 meq DAILY LISA Administration Prednisone 5 mg 01/22/19 10:00 01/24/19 11:11 Deltasone - PO 5 mg DAILY LISA Administration Senna 2 tab 01/23/19 22:00 01/24/19 21:23 Senna - PO 2 tab HS LISA Administration Spironolactone 25 mg 01/22/19 10:00 01/24/19 11:11 Aldactone - PO 25 mg DAILY LISA Administration ASSESSMENT/PLAN: Patient is an 87 year old female with PMH of CHF, Afib (not on anticoagulation) , COPD (on home oxygen), Asthma, HTN, HLD, ESBL urinary tract infection s/p bilateral stents, who presents with dysuria for past two weeks. Urinary tract infection -UA shows 4+ blood, 4+ leukocyte esterase, positive nitrates, 450 WBC. -Ertapenem switched to Ceftriaxone 1 gram IV daily. Last dose for tomorrow. -Begin Linezolid 600mg PO BID -Urine culture grows Proteus mirabilis, VR Ec Faecium. -ID consult (Dr. Méndez) appreciated. COPD -Nasal cannula 3L Oxygen -Symbicort 160/ 4.5mcg IH daily -Duoneb nebulizer PRN -Prednisone 5mg PO daily CHF, acute on chronic hypoxic respiratory failure -Lasix 40mg IV BID -Strict intake and outputs HTN -Lisinopril 5mg PO daily -Spironolactone 25mg PO daily HLD -Atorvastatin 20mg PO HS Afib -Rate control with Atenolol 50mg PO dialy -Holding home anticoagulation due to history of hematuria Microcytic anemia -Hemodynamics currently stable. -Iron 39, TIBC 202, Fe saturation 19, Ferritin 167. -Follow Hb/ Hct Constipation -Patient endorses bowel movement today. -Miralax 17 grams PO daily -Colace 300mg PO HS FEN -No IV fluids -Follow CMP, replete as necessary. -Sodium controlled controlled diet Prophylaxis -Lovenox 30mg subq daily Disposition -Continue care in medical- surgical floor Contact precautions. Visit type - Emergency Visit Emergency Visit: Yes ED Registration Date: 01/22/19 Care time: The patient presented to the Emergency Department on the above date and was hospitalized for further evaluation of their emergent condition. - New Patient This patient is new to me today: No - Critical Care Critical Care patient: No - Discharge Referral Referred to [facility] Med P.C.: No
[2019-01-25 08:07] LABS: SERUM IRON SATURATION 19 % (15-55); TOTAL IRON BINDING CAPACITY 202 ug/dL (250-450); UIBC 163 ug/dL (118-369)
[2019-01-25 09:48] LABS: HEMATOCRIT 37.9 % (32.4-45.2); HEMOGLOBIN 11.2 GM/dL (10.7-15.3); MCHC 29.6 g/dl (32.0-36.0); MEAN CELL VOLUME 70.8 fl (80-96); MEAN PLT VOLUME 10.7 fl (7.5-11.1); PLATELET COUNT 140 K/MM3 (134-434); RBC 5.35 M/mm3 (3.60-5.2); WHITE BLOOD COUNT 4.4 K/mm3 (4.0-10.0)
[2019-01-25 10:33] LABS: ALBUMIN 2.6 g/dl (3.4-5.0); ALK PHOS 62 U/L (45-117); ANION GAP 2 MMOL/L (8-16); BILIRUBIN,TOTAL 0.6 mg/dL (0.2-1); BLOOD UREA NITROGEN 16 mg/dL (7-18); CALCIUM 8.8 mg/dL (8.5-10.1); CHLORIDE 99 mmol/L (98-107); CO2 39 mmol/L (21-32); CREATININE 0.6 mg/dL (0.55-1.3); GLUCOSE,RANDOM 186 mg/dL (74-106); SGOT/AST 14 U/L (15-37); SGPT/ALT 19 U/L (13-61); SODIUM 140 mmol/L (136-145); TOT PROT 5.9 g/dl (6.4-8.2)
[2019-01-25] MEDS ORDERED: DEXTROSE 5%-WATER - 50 ML IVPB ONE (10:37)
[2019-01-25] MEDS ORDERED: cefTRIAXone SODIUM 1 GM VIAL ONE (10:37)
[2019-01-25] MEDS: ATENOLOL 50 MG TABLET (FP) PO SCH (10:41)
[2019-01-25] MEDS: CEFTRIAXONE 1 GM in DEXTROSE 5%-WATER - 50 ML IVPB SCH (10:42)
[2019-01-25] MEDS: SPIRONOLACTONE 25 MG TABLET (FP) PO SCH (10:42)
[2019-01-25] MEDS: predniSONE 5 MG TABLET (UD) PO SCH (10:42)
[2019-01-25] MEDS: POTASSIUM CHLORIDE TABS 20 MEQ TABLET.ER (FP) PO SCH (10:42)
[2019-01-25] MEDS: ENOXAPARIN NA (PORCINE) 30 MG/0.3 ML DISP.SYRIN SQ SCH (10:42)
[2019-01-25] MEDS: POLYETHYLENE GLYCOL 3350 119 GM BTL PO SCH (10:42)
[2019-01-25] MEDS: LISINOPRIL 5 MG TABLET (FP) PO SCH (10:42)
[2019-01-25] MEDS: BUDESONIDE/FORMETEROL FUMARATE 160/4.5 mcg INHALER IH SCH ×2 (10:44→22:46)
[2019-01-25] MEDS ORDERED: ACETAMINOPHEN 325 MG TABLET (FP) PO PRN (11:40)
--- NOTE | 2019-01-25 13:52 | PN ---
Progress Note, Physician History of Present Illness: patient stable no new issues cx results noted - Current Medication List Current Medications: Active Medications Acetaminophen (Tylenol -) 650 mg PO Q6H PRN PRN Reason: PAIN LEVEL 1-5 Atenolol (Tenormin -) 50 mg PO DAILY ON LICENSE OF [facility] Last Admin: 01/25/19 10:41 Dose: 50 mg Atorvastatin Calcium (Lipitor -) 20 mg PO HS ON LICENSE OF [facility] Last Admin: 01/24/19 21:23 Dose: 20 mg Budesonide/Formoterol Fumarate (Symbicort 160/4.5mcg -) 2 puff IH BID ON LICENSE OF [facility] Last Admin: 01/25/19 10:44 Dose: 2 puff Docusate Sodium (Colace -) 300 mg PO HS ON LICENSE OF [facility] Last Admin: 01/24/19 21:23 Dose: 300 mg Enoxaparin Sodium (Lovenox -) 30 mg SQ DAILY ON LICENSE OF [facility] Last Admin: 01/25/19 10:42 Dose: 30 mg Furosemide (Lasix Injection -) 40 mg IVPUSH BIDLASIX ON LICENSE OF [facility] Last Admin: 01/25/19 05:18 Dose: 40 mg Ceftriaxone Sodium 1 gm/ (Dextrose) 50 mls @ 100 mls/hr IVPB DAILY ON LICENSE OF [facility]; Protocol Last Admin: 01/25/19 10:42 Dose: 100 mls/hr Lisinopril (Prinivil) 5 mg PO DAILY ON LICENSE OF [facility] Last Admin: 01/25/19 10:42 Dose: 5 mg Magnesium Hydroxide (Milk Of Magnesia -) 30 ml PO DAILY PRN PRN Reason: CONSTIPATION Polyethylene Glycol (Miralax (For Daily Use) -) 17 gm PO DAILY ON LICENSE OF [facility] Last Admin: 01/25/19 10:42 Dose: Not Given Potassium Chloride (K-Dur -) 20 meq PO DAILY ON LICENSE OF [facility] Last Admin: 01/25/19 10:42 Dose: 20 meq Prednisone (Deltasone -) 5 mg PO DAILY ON LICENSE OF [facility] Last Admin: 01/25/19 10:42 Dose: 5 mg Senna (Senna -) 2 tab PO HS ON LICENSE OF [facility] Last Admin: 01/24/19 21:23 Dose: 2 tab Spironolactone (Aldactone -) 25 mg PO DAILY ON LICENSE OF [facility] Last Admin: 01/25/19 10:42 Dose: 25 mg - Objective Vital Signs: Vital Signs Temperature 98.1 F 01/25/19 06:00 Pulse Rate 90 01/25/19 06:00 Respiratory Rate 20 04/11/19 06:00 Blood Pressure 122/72 01/25/19 06:00 O2 Sat by Pulse Oximetry (%) 97 01/23/19 21:00 Constitutional: Yes: No Distress, Calm Neck: Yes: Supple, Trachea Midline Cardiovascular: Yes: Regular Rate and Rhythm Respiratory: Yes: Regular, CTA Bilaterally Gastrointestinal: Yes: Normal Bowel Sounds, Soft Musculoskeletal: Yes: WNL Extremities: Yes: WNL Neurological: Yes: Alert, Oriented Psychiatric: Yes: Alert, Oriented Labs: CBC, BMP 01/25/19 08:50 01/25/19 08:50 INR, PTT INR 1.08 (0.83-1.09) 01/21/19 17:22 Assessment/Plan 88 y/o F from [facility] w/PMH of Afib (not on AC due to hematuria), CHF, CAD, HTN, COPD (on 2L O2 at home)send from [facility] for Hypoxemia and left CVA tenderness was found to have UTI Acute complicated UTI copd afib htn hld plan after tomorrow dose of ceftriaxone we can stop it cx showing vre rest as per the team will start her on linezoloid
--- NOTE | 2019-01-25 17:30 | PN ---
Teaching Attending Note Name of Resident: Josemanuel Penaloza ATTENDING PHYSICIAN STATEMENT I saw and evaluated the patient. I reviewed the resident's note and discussed the case with the resident. I agree with the resident's findings and plan as documented. SUBJECTIVE: Feeling much improved - less dyspneic. Le swelling improving. No cough/sputum/fever/chills. OBJECTIVE: Afebrile, Hemodynamically Stable. AAO x 3. Last Vital Signs Temp Pulse Resp BP Pulse Ox 97.5 F L 82 18 132/78 97 01/25/19 14:00 01/25/19 14:00 01/25/19 14:00 01/25/19 14:00 01/23/19 21:00 Heart -S1, S2, RRR Lungs decreased air entry bibasally, few crackles. Abdomen - Soft, non-tender. Bowel Sounds normal. Extremities - pitting edema to knees improving. No calf tenderness Laboratory Results - last 24 hr 01/24/19 01/25/19 01/25/19 06:30 08:50 08:50 WBC 4.4 RBC 5.35 H Hgb 11.2 Hct 37.9 MCV 70.8 L MCH 21.0 L MCHC 29.6 L RDW 19.0 H Plt Count 140 D MPV 10.7 D Sodium 140 Potassium 4.0 Chloride 99 Carbon Dioxide 39 H Anion Gap 2 L BUN 16 Creatinine 0.6 Creat Clearance w eGFR 94.13 Random Glucose 186 H Calcium 8.8 Magnesium 2.0 Iron 39 TIBC 202 L Iron Saturation 19 Total Bilirubin 0.6 AST 14 L ALT 19 Alkaline Phosphatase 62 Total Protein 5.9 L Albumin 2.6 L Current Medications Generic Name Dose Route Start Last Admin Trade Name Freq PRN Reason Stop Dose Admin Acetaminophen 650 mg 01/25/19 11:40 Tylenol - PO Q6H PRN PAIN LEVEL 1-5 Atenolol 50 mg 01/22/19 10:00 01/25/19 10:41 Tenormin - PO 50 mg DAILY LISA Administration Atorvastatin Calcium 20 mg 01/22/19 22:00 01/24/19 21:23 Lipitor - PO 20 mg HS LISA Administration Budesonide/Formoterol Fumarate 2 puff 01/22/19 22:00 01/25/19 10:44 Symbicort 160/4.5mcg - IH 2 puff BID LISA Administration Docusate Sodium 300 mg 01/22/19 22:00 01/24/19 21:23 Colace - PO 300 mg HS LISA Administration Enoxaparin Sodium 30 mg 01/22/19 10:00 01/25/19 10:42 Lovenox - SQ 30 mg DAILY LISA Administration Furosemide 40 mg 01/23/19 18:00 01/25/19 15:05 Lasix Injection - IVPUSH 40 mg BIDLASIX LISA Administration Ceftriaxone Sodium 1 gm/ 50 mls @ 100 mls/hr 01/25/19 10:00 01/25/19 10:42 Dextrose IVPB 100 mls/hr DAILY LISA Administration Protocol Linezolid 600 mg 01/25/19 22:00 Zyvox (Restricted To Id) - PO BID LISA Lisinopril 5 mg 01/22/19 10:00 01/25/19 10:42 Prinivil PO 5 mg DAILY LISA Administration Magnesium Hydroxide 30 ml 01/23/19 19:28 Milk Of Magnesia - PO DAILY PRN CONSTIPATION Polyethylene Glycol 17 gm 01/22/19 13:45 01/25/19 10:42 Miralax (For Daily Use) - PO Not Given DAILY LISA Potassium Chloride 20 meq 01/23/19 10:00 01/25/19 10:42 K-Dur - PO 20 meq DAILY LISA Administration Prednisone 5 mg 01/22/19 10:00 01/25/19 10:42 Deltasone - PO 5 mg DAILY LISA Administration Senna 2 tab 01/23/19 22:00 01/24/19 21:23 Senna - PO 2 tab HS LISA Administration Spironolactone 25 mg 01/22/19 10:00 01/25/19 10:42 Aldactone - PO 25 mg DAILY LISA Administration ASSESSMENT AND PLAN: 88 year old female with PMH of Sarcoidosis, CRF sec to COPD on 2L NC, Chronic Diastolic CHF, Pulmonary HTN and Chronic constipation sent from [facility] with R flank pain assoc with dysuria and worsening LE swelling, found to have UTI and Hypoxia. 1. Acute on Chronic Hypoxic Hypercapneic Respiratory Failure secondary to Acute on Chronic Diastolic CHF exacerbation - improving. Continue Lasix diuresis - can switch to po 01/26. Daily Weight and I/Os 2. UTI - UCx - Proteus and VRE - Ertapenem switched to Ceftriaxone and Linezolid added. Further Abx titration by ID. Afebrile and Hemodynamically Stable. 3. Atrial Fibrillation - rate controlled - Continue BB. 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 4. CRF sec to COPD/Sarcoidosis - stable - on chronic steroids - Prednisone 5mg. Continue Symbicort and DuoNeb prn 5. Constipation - resolved - on bowel regimen with MOM and Miralax prn. 6. HTN - Continue Lisinopril, Atenolol, Aldactone 7. HLD - Continue Lipitor. 8. Pulmonary HTN - on home O2. 9. Microcytic Anemia, RDW 18.5 - Chronic - Ferritin 167/Iron Sat 19% - not due to Iron deficiency. DVT Px - Lovenox SQ
[2019-01-25] MEDS: ATORVASTATIN CA 20 MG TABLET (FP) PO SCH (22:45)
[2019-01-25] MEDS: SENNOSIDES 8.6MG TABLET (FP) PO SCH (22:45)
[2019-01-25] MEDS: DOCUSATE SODIUM 100 MG CAPSULE (FP) PO SCH (22:45)
[2019-01-25] MEDS: LINEZOLID 600 MG TABLET (RESTRICTED TO ID) PO SCH (22:59)
[2019-01-26] MEDS: FUROSEMIDE 40 MG/4 ML INJECTABLE VIAL IVPUSH SCH (05:53)
[2019-01-26 07:59] LABS: HEMATOCRIT 35.8 % (32.4-45.2); HEMOGLOBIN 10.6 GM/dL (10.7-15.3); MCH 20.9 pg (25.7-33.7); MCHC 29.6 g/dl (32.0-36.0); MEAN CELL VOLUME 70.4 fl (80-96); MEAN PLT VOLUME 10.3 fl (7.5-11.1); PLATELET COUNT 127 K/MM3 (134-434); RBC 5.08 M/mm3 (3.60-5.2); RDW 18.7 % (11.6-15.6); WHITE BLOOD COUNT 4.5 K/mm3 (4.0-10.0)
[2019-01-26 08:36] LABS: ALBUMIN 2.4 g/dl (3.4-5.0); ALK PHOS 64 U/L (45-117); ANION GAP 3 MMOL/L (8-16); BILIRUBIN,TOTAL 0.6 mg/dL (0.2-1); BLOOD UREA NITROGEN 20 mg/dL (7-18); CALCIUM 8.7 mg/dL (8.5-10.1); CHLORIDE 99 mmol/L (98-107); CO2 37 mmol/L (21-32); CREATININE 0.7 mg/dL (0.55-1.3); GLUCOSE,RANDOM 155 mg/dL (74-106); POTASSIUM 3.9 mmol/L (3.5-5.1); SGOT/AST 13 U/L (15-37); SGPT/ALT 17 U/L (13-61); SODIUM 140 mmol/L (136-145); TOT PROT 5.6 g/dl (6.4-8.2)
--- NOTE | 2019-01-26 10:03 | DS ---
Physical Exam: SUBJECTIVE: Patient seen and examined at bedside this morning. She endorses improvement with her breathing. She denies subjective fevers, chills, shortness of breath, chest pain, palpitations, abdominal pain, nausea, vomiting, dysuria, hematuria. OBJECTIVE: Vital Signs Period Temp Pulse Resp BP Sys/Garza Pulse Ox Last 24 Hr 97.5 F-98 F 78-88 18-18 102-132/54-82 PHYSICAL EXAM GENERAL: The patient is awake, alert, and fully oriented, in no acute distress. HEAD: Normocephalic, atraumatic. EYES: PERRL, extraocular movements intact, sclera anicteric, conjunctiva clear. ENT: Oropharynx clear without exudates, dry mucous membranes. NECK: Trachea midline, supple without lymphadenopathy. LUNGS: Good inspiratory effort and air entry bilaterally. Clear to auscultation bilaterally. No accessory muscle use. HEART: Irregularly irregular rate and rhythm, S1, S2 without murmur, rub or gallop. ABDOMEN: Soft, nondistended, no guarding, no rebound tenderness. Nontender to light and deep palpation x4 quadrants. Normoactive bowel sounds x4 quadrants. EXTREMITIES: 2+ radial pulses, 1+ dorsalis pedis pulses bilaterally. 1+ bilateral lower extremity edema, significantly improved. NEUROLOGICAL: Cranial nerves II through XII grossly intact. Normal speech, gait not observed. PSYCH: Normal mood, normal affect upon my encounter. SKIN: Warm, dry. LABS Laboratory Results - last 24 hr 01/25/19 01/26/19 01/26/19 08:50 06:30 06:40 WBC 4.5 RBC 5.08 Hgb 10.6 L Hct 35.8 MCV 70.4 L MCH 20.9 L MCHC 29.6 L RDW 18.7 H Plt Count 127 L MPV 10.3 Sodium 140 140 Potassium 4.0 3.9 Chloride 99 99 Carbon Dioxide 39 H 37 H Anion Gap 2 L 3 L BUN 16 20 H Creatinine 0.6 0.7 Creat Clearance w eGFR 94.13 78.79 Random Glucose 186 H 155 H Calcium 8.8 8.7 Magnesium 2.0 Total Bilirubin 0.6 0.6 AST 14 L 13 L ALT 19 17 Alkaline Phosphatase 62 64 Total Protein 5.9 L 5.6 L Albumin 2.6 L 2.4 L HOSPITAL COURSE: Date of Admission:01/22/19 Date of Discharge: 01/26/19 Patient is an 87 year old female with PMH of CHF, Afib (not on anticoagulation) , COPD (on home oxygen), asthma, HTN, HLD, ESBL urinary tract infection s/p bilateral stents, who presents with dysuria for past two weeks. prior to admission. Urine culture grew Proteus mirabilis, VR Ec Faecium. She was initially treated with 5 days of Ertapenem, switched to ceftriaxone (course completed). Linezolid was added on, upon urine culture results. COPD managed with duonebs, symbicort, prednisone, and oxygen. Hypertension managed with lisinopril and spironolactone. Afib rate controlled with atenolol; no anticoagulation due to history of hematuria. Patient was discharged to [facility] with Linezolid for 13 more days, to complete 14 day course. Discharged to follow up with primary care physician and infectious disease physician. Minutes to complete discharge: 37 Discharge Summary Reason For Visit: UTI,ACUTE EXACERBATION COPD Current Active Problems Acute exacerbation of chronic obstructive pulmonary disease (Acute) UTI (urinary tract infection) (Acute) Condition: Stable - Instructions Diet, Activity, Other Instructions: You were admitted to hospital with complaint of pain upon urination. You were evaluated by Infectious Disease physician, and treated with antibiotics. You are being discharged back to [facility]. Continue taking your home medications as directed. You will start taking antibiotic Linezolid 600mg orally every 12 hours for the next 13 days. Follow up with your primary care physician within two- three days after discharge. A referral to [facility] clinic has been provided. Follow up with infectious disease physician (Dr. Méndez) within one week of discharge. Return to the nearest Emergency Department if you experience worsening symptoms , headaches, confusion, fall, loss of consciousness, dizziness, changes in vision, fevers, chills, shortness of breath, chest pain, palpitations, abdominal pain, nausea, vomiting, pain or bleeding upon urination, or with defecation. Referrals: Bjorn Méndez MD [Staff Physician] - 1 Week [facility] [place] [Provider Group] - 1 Week Disposition: [facility] - Home Medications Comprehensive Discharge Medication List: Ambulatory Orders Acetaminophen [Tylenol] 650 mg PO DAILY 01/21/19 Atenolol [Tenormin] 50 mg PO DAILY 01/21/19 Atorvastatin Calcium [Lipitor] 20 mg PO DAILY 01/21/19 Budesonide/Formeterol Fumarate [SYMBICORT 160/4.5mcg -] 1 inh PO DAILY 01/21/19 Furosemide [Lasix] 40 mg PO DAILY 01/21/19 Lisinopril [Prinivil] 5 mg PO DAILY 01/21/19 Omeprazole 20 mg PO DAILY 01/21/19 Prednisone 5 mg PO DAILY 01/21/19 Spironolactone [Aldactone] 25 mg .ROUTE DAILY 01/21/19 Docusate Sodium [Colace -] 300 mg PO HS capsule 01/25/19 Sennosides [Senna -] 2 tab PO HS tablet 01/25/19 Linezolid [Zyvox (Restricted To Id) -] 600 mg PO BID 13 Days #26 tablet This patient is new to me today: No Emergency Visit: Yes ED Registration Date: 01/22/19 Care time: The patient presented to the Emergency Department on the above date and was hospitalized for further evaluation of their emergent condition. Critical Care patient: No - Discharge Referral Referred to [facility] No
[2019-01-26] MEDS ORDERED: cefTRIAXone SODIUM 1 GM VIAL ONE (10:19)
[2019-01-26] MEDS ORDERED: DEXTROSE 5%-WATER - 50 ML IVPB ONE (10:20)
[2019-01-26] MEDS: POTASSIUM CHLORIDE TABS 20 MEQ TABLET.ER (FP) PO SCH (10:25)
[2019-01-26] MEDS: SPIRONOLACTONE 25 MG TABLET (FP) PO SCH (10:25)
[2019-01-26] MEDS: predniSONE 5 MG TABLET (UD) PO SCH (10:25)
[2019-01-26] MEDS: POLYETHYLENE GLYCOL 3350 119 GM BTL PO SCH (10:25)
[2019-01-26] MEDS: ATENOLOL 50 MG TABLET (FP) PO SCH (10:25)
[2019-01-26] MEDS: ENOXAPARIN NA (PORCINE) 30 MG/0.3 ML DISP.SYRIN SQ SCH (10:25)
[2019-01-26] MEDS: LISINOPRIL 5 MG TABLET (FP) PO SCH (10:25)
[2019-01-26] MEDS: BUDESONIDE/FORMETEROL FUMARATE 160/4.5 mcg INHALER IH SCH (10:26)
[2019-01-26] MEDS: LINEZOLID 600 MG TABLET (RESTRICTED TO ID) PO SCH (10:26)
[2019-01-26] MEDS: CEFTRIAXONE 1 GM in DEXTROSE 5%-WATER - 50 ML IVPB SCH (10:26)
--- NOTE | 2019-01-26 11:39 | PN ---
Progress Note, Physician - Current Medication List Current Medications: Active Medications Acetaminophen (Tylenol -) 650 mg PO Q6H PRN PRN Reason: PAIN LEVEL 1-5 Atenolol (Tenormin -) 50 mg PO DAILY [facility] Last Admin: 01/26/19 10:25 Dose: 50 mg Atorvastatin Calcium (Lipitor -) 20 mg PO HS [facility] Last Admin: 01/25/19 22:45 Dose: 20 mg Budesonide/Formoterol Fumarate (Symbicort 160/4.5mcg -) 2 puff IH BID [facility] Last Admin: 01/26/19 10:26 Dose: 2 puff Docusate Sodium (Colace -) 300 mg PO HS [facility] Last Admin: 01/25/19 22:45 Dose: 300 mg Enoxaparin Sodium (Lovenox -) 30 mg SQ DAILY [facility] Last Admin: 01/26/19 10:25 Dose: 30 mg Furosemide (Lasix Injection -) 40 mg IVPUSH BIDLASIX [facility] Last Admin: 01/26/19 05:53 Dose: 40 mg Ceftriaxone Sodium 1 gm/ (Dextrose) 50 mls @ 100 mls/hr IVPB DAILY [facility]; Protocol Last Admin: 01/26/19 10:26 Dose: 100 mls/hr Linezolid (Zyvox (Restricted To Id) -) 600 mg PO BID [facility] Last Admin: 01/26/19 10:26 Dose: 600 mg Lisinopril (Prinivil) 5 mg PO DAILY [facility] Last Admin: 01/26/19 10:25 Dose: 5 mg Magnesium Hydroxide (Milk Of Magnesia -) 30 ml PO DAILY PRN PRN Reason: CONSTIPATION Polyethylene Glycol (Miralax (For Daily Use) -) 17 gm PO DAILY [facility] Last Admin: 01/26/19 10:25 Dose: Not Given Potassium Chloride (K-Dur -) 20 meq PO DAILY [facility] Last Admin: 01/26/19 10:25 Dose: 20 meq Prednisone (Deltasone -) 5 mg PO DAILY [facility] Last Admin: 01/26/19 10:25 Dose: 5 mg Senna (Senna -) 2 tab PO HS [facility] Last Admin: 01/25/19 22:45 Dose: 2 tab Spironolactone (Aldactone -) 25 mg PO DAILY [facility] Last Admin: 01/26/19 10:25 Dose: 25 mg - Objective Vital Signs: Vital Signs Temperature 97.6 F 04/12/19 06:00 Pulse Rate 78 01/26/19 06:00 Respiratory Rate 18 01/26/19 06:00 Blood Pressure 110/54 L 01/26/19 06:00 O2 Sat by Pulse Oximetry (%) 97 01/23/19 21:00 Labs: CBC, BMP 01/26/19 06:40 01/26/19 06:30 INR, PTT INR 1.08 (0.83-1.09) 01/21/19 17:22
[2019-01-26 11:56] VITALS: BP 110/60; PULSE 72; TEMP 98.6
--- NOTE | 2019-01-26 19:43 | PN ---
Teaching Attending Note Name of Resident: Josemanuel Penaloza ATTENDING PHYSICIAN STATEMENT I saw and evaluated the patient. I reviewed the resident's note and discussed the case with the resident. I agree with the resident's findings and plan as documented. SUBJECTIVE: Feeling much improved - no further dyspnea. LE swelling improving. No cough/sputum/fever/chills. OBJECTIVE: Afebrile, Hemodynamically Stable. AAO x 3. Last Vital Signs Temp Pulse Resp BP Pulse Ox 98.6 F 72 20 110/60 97 01/26/19 10:00 01/26/19 10:00 01/26/19 10:00 01/26/19 10:00 01/23/19 21:00 Heart - S1, S2, RRR Lungs decreased air entry bibasally, few crackles. Abdomen - Soft, non-tender. Bowel Sounds normal. Extremities - pitting edema to knees improving. No calf tenderness Laboratory Results - last 24 hr 01/26/19 01/26/19 06:30 06:40 WBC 4.5 RBC 5.08 Hgb 10.6 L Hct 35.8 MCV 70.4 L MCH 20.9 L MCHC 29.6 L RDW 18.7 H Plt Count 127 L MPV 10.3 Sodium 140 Potassium 3.9 Chloride 99 Carbon Dioxide 37 H Anion Gap 3 L BUN 20 H Creatinine 0.7 Creat Clearance w eGFR 78.79 Random Glucose 155 H Calcium 8.7 Total Bilirubin 0.6 AST 13 L ALT 17 Alkaline Phosphatase 64 Total Protein 5.6 L Albumin 2.4 L Discharge Medications Medication Instructions Recorded Acetaminophen [Tylenol] 650 mg PO DAILY 01/21/19 Atenolol [Tenormin] 50 mg PO DAILY 01/21/19 Atorvastatin Calcium [Lipitor] 20 mg PO DAILY 01/21/19 Budesonide/Formeterol Fumarate 1 inh PO DAILY 01/21/19 [SYMBICORT 160/4.5mcg -] Furosemide [Lasix] 40 mg PO DAILY 01/21/19 Lisinopril [Prinivil] 5 mg PO DAILY 01/21/19 Omeprazole 20 mg PO DAILY 01/21/19 Prednisone 5 mg PO DAILY 01/21/19 Spironolactone [Aldactone] 25 mg .ROUTE DAILY 01/21/19 Docusate Sodium [Colace -] 300 mg PO HS capsule 01/25/19 Sennosides [Senna -] 2 tab PO HS tablet 01/25/19 Linezolid [Zyvox (Restricted To 600 mg PO BID 13 Days #26 tablet 01/26/19 Id) -] ASSESSMENT AND PLAN: 88 year old female with PMH of Sarcoidosis, CRF sec to COPD on 2L NC, Chronic Diastolic CHF, Pulmonary HTN and Chronic constipation sent from [facility] with R flank pain assoc with dysuria and worsening LE swelling, found to have UTI and Hypoxia. 1. 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 Continue oral Lasix on discharge. Daily Weight at Nursing facility. 2. UTI - UCx - Proteus and VRE - Ertapenem switched to Ceftriaxone (completed course) and Linezolid added for 14 days total for VRE UTI. Afebrile and Hemodynamically Stable. 3. Atrial Fibrillation - rate controlled - Continue BB. 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 4. CRF sec to COPD/Sarcoidosis - stable - on chronic steroids - Prednisone 5mg. Continue Symbicort and DuoNeb prn 5. Constipation - resolved - on bowel regimen with Docusate and Senna with MOM and Miralax prn. 6. HTN - Continue Lisinopril, Atenolol, Aldactone 7. HLD - Continue Lipitor. 8. Pulmonary HTN - on home O2. 9. Microcytic Anemia, RDW 18.5 - Chronic - Ferritin 167/Iron Sat 19% - not due to Iron deficiency. Medically Stable for discharge with PCP follow up.
== END 2019-01-26 12:13 | DRG 291 ==
LOC: JER 15:58 → EDBD 15:58 → JERBED 01-22 00:06 → J8W 01-22 18:52
PROVIDERS: ADMIT Internal Medicine
DX: I13.0 Hypertensive heart and chronic kidney disease with heart failure and stage 1 through stage 4 chronic kidney disease, or unspecified chronic kidney disease (principal); J96.21 Acute and chronic respiratory failure with hypoxia; I50.33 Acute on chronic diastolic (congestive) heart failure; J96.22 Acute and chronic respiratory failure with hypercapnia; N39.0 Urinary tract infection, site not specified; J44.1 Chronic obstructive pulmonary disease with (acute) exacerbation; I48.2 Chronic atrial fibrillation; I27.20 Pulmonary hypertension, unspecified; D86.9 Sarcoidosis, unspecified; Z99.81 Dependence on supplemental oxygen; D51.0 Vitamin B12 deficiency anemia due to intrinsic factor deficiency; I25.10 Atherosclerotic heart disease of native coronary artery without angina pectoris; F41.9 Anxiety disorder, unspecified; E78.00 Pure hypercholesterolemia, unspecified; Z90.710 Acquired absence of both cervix and uterus; N20.0 Calculus of kidney; D63.8 Anemia in other chronic diseases classified elsewhere
CPT/HCPCS: 36415; 71045-TC-FY; 74176-TC; 80053; 81003; 82550; 82728; 83540; 83550; 83735; 83880; 84100; 84484; 85025; 85027; 85610; 85730; 87086; 87186; 93005; 93010; 94010; 97116-GP; 97161-GP; 99284-25

== ENCOUNTER 2019-05-19 16:28 | Inpatient (IN) | payer OTHER ==
--- NOTE | 2019-05-19 16:39 | PDOC ---
History of Present Illness - General Stated Complaint: SHORTNESS OF BREATH Time Seen by Provider: 05/19/19 16:35 History Source: Patient, EMS, [facility] Records Exam Limitations: No Limitations - History of Present Illness Initial Comments: 05/19/19 16:36 88yo F with PMH of COPD on 3L NC, CHF, Afib, MAURICIO, HTN, HLD BIBA from [facility] for shortness of breath. Per EMS, pt was short of breath and had fluctuating blood pressure and was saturating in the 70s on RA. Per [place] records, pt has been having swelling in her lower extremities and was being treated with Lasix at [place]. Health care proxy wanted patient to be seen at a hospital. Pt upon arrival stated she was here for the edema. When asked if she was feeling short of breath she said yes and when asked about chest pain, she said yes. Denies fever, chills, cough, abdominal pain, n/v/d, headaches, numbness/tingling. PMD: [place] PMH: see hpi Meds: see med rec Allergies: Levaquin Past History - Past Medical History Allergies/Adverse Reactions: Allergies Allergy/AdvReac Type Severity Reaction Status Date / Time levofloxacin [From Levaquin] Allergy Intermediate Itching Verified 05/19/19 17: 34 Home Medications: Ambulatory Orders Acetaminophen [Tylenol] 650 mg PO Q8H PRN 01/21/19 Atenolol [Tenormin] 50 mg PO DAILY 01/21/19 Atorvastatin Calcium [Lipitor] 20 mg PO HS 01/21/19 Budesonide/Formeterol Fumarate [SYMBICORT 160/4.5mcg -] 2 inh PO BID 01/21/19 Furosemide [Lasix] 40 mg PO DAILY 01/21/19 Lisinopril [Prinivil] 5 mg PO DAILY 01/21/19 Omeprazole 20 mg PO DAILY 01/21/19 Prednisone 5 mg PO DAILY 01/21/19 Spironolactone [Aldactone] 25 mg .ROUTE DAILY 01/21/19 Anemia: Yes (PERNICIOUS) Asthma: (HX RESPIRATORY FAILURE) Cancer: No Cardiac Disorders: Yes (AF, CAD) CVA: No COPD: Yes CHF: Yes Dementia: No Diabetes: No GI Disorders: Yes (GASTRITIS) Disorders: Yes (HX KIDNEY FAILURE,UTI. nephrostomy tube) HTN: Yes Hypercholesterolemia: Yes Liver Disease: No Psychiatric Problems: Yes (ANXIETY.) Seizures: No Thyroid Disease: No - Surgical History Abdominal Surgery: Yes (abdominal) Appendectomy: No Cardiac Surgery: No Cholecystectomy: Yes Lung Surgery: No (PT DENIES) Neurologic Surgery: No Orthopedic Surgery: Yes (cervical spine w/hardware) - Immunization History Immunization Up to Date: Yes - Suicide/Smoking/Psychosocial Hx Smoking Status: No Smoking History: Never smoked Years of Tobacco Use: 0 Have you smoked in the past 12 months: No Number of Cigarettes Smoked Daily: 0 Hx Alcohol Use: No Drug/Substance Use Hx: No Substance Use Type: None Hx Substance Use Treatment: No Review of Systems - Review of Systems Constitutional: No: Chills, Fever, Weakness HEENTM: No: Symptoms Reported Respiratory: Yes: Shortness of Breath Cardiac (ROS): Yes: Chest Pain, Edema. No: Lightheadedness, Palpitations, Syncope ABD/GI: No: Symptoms Reported : No: Symptoms Reported Musculoskeletal: No: Symptoms Reported Integumentary: No: Symptoms Reported Neurological: No: Symptoms reported *Physical Exam - Physical Exam General Appearance: Yes: Appropriately Dressed, Moderate Distress, Obese HEENT: positive: EOMI, MAUREEN, Pharynx Normal Neck: positive: Trachea midline, Supple Respiratory/Chest: positive: Wheezing. negative: Accessory Muscle Use, Paradoxal Breathing, Crackles, Rales, Rhonchi Cardiovascular: positive: Regular Rhythm, Regular Rate. negative: JVD, Murmur Vascular Pulses: Dorsalis-Pedis (R): 2+, Doralis-Pedis (L): 2+ Gastrointestinal/Abdominal: positive: Normal Bowel Sounds, Soft. 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 - Medical Decision Making 05/19/19 18:58 88yo F with PMH of COPD on 3L NC, CHF, Afib?, MAURICIO, HTN, HLD BIBA for shortness of breath. Per EMS, pt was short of breath and had fluctuating blood pressure and was saturating in the 70s on RA. Per [place] records, pt has been having swelling in her lower extremities and was being treated with Lasix at [place]. Health care proxy wanted patient to be seen at a hospital. Pt upon arrival stated she was here for the edema. When asked if she was feeling short of breath she said yes and when asked about chest pain, she said yes. Denies fever, chills, cough, abdominal pain, n/v/d, headaches, numbness/tingling. Vitals: wnl, saturating in 80s on NC PE: upon arrival she was lethargic. wheezing in lower lung esparza. pitting edema up to knees bilaterally R>L. CHF v. COPD exacerbation. Given edema, likely chf. Will check basic labs including trop, bnp, cultures, ua, ekg, cxr, duplex of lower extremities to rule out dvt given R>L swelling. UA positive for infection. Previous cultures grew ESBL and organisms susceptible to rocephin. Will add Zosyn because cultures sensitive to Zosyn. Lasix 40mg IV. BiPAP. ekg: afib rate 84. Qtc 449. no missy or depressions. CXR: vascular congestion. labs significant for bnp 4000. trop negative. no white count. BG with pH 7.29, retention of CO2. Will need tele admission. Rpt abg sent. 05/19/19 19:02 Rpt ABG pH 7.35, Stil retaining CO2. Pt is mentating well. Will give Duoneb treatment. Stable for admission to tele floor. Accepted by admitting team. *DC/Admit/Observation/Transfer Diagnosis at time of Disposition: CHF (congestive heart failure) Qualifiers: Heart failure type: unspecified Heart failure chronicity: unspecified Qualified Code(s): I50.9 - Heart failure, unspecified UTI (urinary tract infection) Qualifiers: Urinary tract infection type: site unspecified Hematuria presence: with hematuria Qualified Code(s): N39.0 - Urinary tract infection, site not specified - Referrals - Patient Instructions - Post Discharge Activity
[2019-05-19 17:10] LABS: ARTERIAL BLD GAS O2 SATURATION 33.2 % (95-98); ARTERIAL BLOOD GAS pH 7.29 (7.35-7.45); CARBOXYHEMOGLOBIN 0.6 % (0-2)
[2019-05-19] MEDS ORDERED: FUROSEMIDE 40 MG/4 ML INJECTABLE VIAL IVPUSH ONE ×2 (17:14→20:20)
--- NOTE | 2019-05-19 17:15 | PDOC ---
Documentation entered by Melanie Quezada SCRIBE, acting as scribe for Oumou Rosen MD. Oumou Rosen MD: This documentation has been prepared by the Pilar rangel Sammi, SCRIBE, under my direction and personally reviewed by me in its entirety. I confirm that the documentation accurately reflects all work, treatment, procedures, and medical decision making performed by me. Attending Attestation - Resident Resident Name: Frances Wasserman - [facility] HPI: 05/19/19 16:50 The patient is an 88 year old female, with a significant PMH of CHF and COPD, who was BIBA to the emergency department, from half-way, for evaluation of bilateral lower extremity edema and shortness of breath. Allergies: Levofloxacin - Physicial Exam PE: 05/19/19 16:51 CONSTITUTIONAL: Well-appearing; well-nourished; in no apparent distress HEAD: Normocephalic; atraumatic EYES: PERRL; EOM intact ENMT: External appears normal; normal oropharynx NECK: Supple; non-tender; no cervical lymphadenopathy CARD: Normal S1, S2; no murmurs, rubs, or gallops RESP: Questionable wheezing. Normal chest excursion with respiration; breath sounds clear and equal bilaterally; no rhonchi, or rales ABD: Soft, non-distended; non-tender; no palpable organomegaly, no palpable hernias EXT: (+)bilateral lower extremity edema (R>L), tender with light touch. Normal ROM in all four extremities; non-tender to palpation; distal pulses intact SKIN: Warm, dry, no rash NEURO: Responds appropriately to verbal stimuli, able to communicate needs, follows commands. - Medical Decision Making 05/19/19 17:07 88 y/o female BIBA to ED for evaluation of raad lower extremity edema with rt leg greater than left leg, and legs very sensitive to touch. PT appeared groggy and slow to respond when she first arrived in ED and was placed on BIPAP due to suspected CHF exacerbation. Pt actually responsive to verbal stimuli, able to communicate needs and is currently not in distress while on BIPAP. Plan: Abg, cbc, cmp, cardiac profile, blood cx, ua, cxr,BNP, bedside sono shows curly b lines will give dose of lasix and ultrasound of rt leg to r/o dvt Pt's labs reviewed, pt with respiratory acidosis, pco2 was 88, pt remained on BIPAP and is doing well, requesting to have BIPAP removed, will repeat abg, pt with uti ESBL positive in the past will treat with Zosyn, will require admission to hospital, will have on coming physician f/u abg to be drawn now and make final disposition as to what unit pt should be admitted, pt in no distress at time of this note. 05/19/19 18:53 05/19/19 18:54
[2019-05-19 17:16] LABS: ARTERIAL BLOOD GAS PCO2 88.4 mmHg (35-45); ARTERIAL BLOOD GAS PO2 26.6 mmHg (80-105)
[2019-05-19 17:17] LABS: EPI CELLS 2.2 /HPF (0-5/HPF); HYALINE CASTS 31 /lpf (0-8); PH,URINE 6.5 (5.0-8.0); URINE APPEARANCE TURBID; URINE BACTERIA 4480.9 /hpf (NEGATIVE); URINE BILIRUBIN NEGATIVE (NEGATIVE); URINE COLOR YELLOW; URINE GLUCOSE (UA) NEGATIVE (NEGATIVE); URINE KETONE TRACE (NEGATIVE); URINE LEUK ESTERASE 3+ (NEGATIVE); URINE NITRITE POSITIVE (NEGATIVE); URINE PROTEIN 3+ (NEGATIVE); URINE WBC 411 /hpf (0-5)
[2019-05-19] MEDS ORDERED: FUROSEMIDE 40 MG/4 ML INJECTABLE VIAL ONE ×2 (17:18→23:34)
[2019-05-19] MEDS ORDERED: CEFTRIAXONE 1 GM in DEXTROSE 5%-WATER - 100 ML IVPB ONE (17:35)
[2019-05-19 17:42] LABS: ALBUMIN 3.3 g/dl (3.4-5.0); BILIRUBIN,TOTAL 0.5 mg/dL (0.2-1); CALCIUM 9.1 mg/dL (8.5-10.1); CREATININE 0.9 mg/dL (0.55-1.3); MAGNESIUM 1.9 mg/dL (1.8-2.4); N-TERMINAL BNP 4389.4 pg/ml (5-450); POTASSIUM 3.4 mmol/L (3.5-5.1); TOT PROT 6.2 g/dl (6.4-8.2)
[2019-05-19 17:43] LABS: INR 1.18 (0.83-1.09); PROTHROMBIN TIME (PATIENT) 13.9 SEC (9.7-13.0)
[2019-05-19] MEDS ORDERED: CEFTRIAXONE 1 GM/50 ML BAG ONE (17:51)
[2019-05-19 17:58] LABS: URINE RBC 902.8 /hpf (0-4)
[2019-05-19 17:59] LABS: YEAST NONE SEEN (NEGATIVE)
[2019-05-19] MEDS ORDERED: PIPERACILLIN/TAZOB 3.375 GM 3.375 GM in DEXTROSE 5%-WATER - 50 ML IVPB ONE (18:05)
[2019-05-19 18:10] LABS: BASO % 0.4 % (0-2.0); EOS % 0.4 % (0-4.5); HEMATOCRIT 32.4 % (32.4-45.2); HEMOGLOBIN 9.5 GM/dL (10.7-15.3); LYMPH % 16.8 % (8-40); MCH 21.2 pg (25.7-33.7); MCHC 29.4 g/dl (32.0-36.0); MEAN CELL VOLUME 72.2 fl (80-96); MEAN PLT VOLUME 9.9 fl (7.5-11.1); MONO % 11.8 % (3.8-10.2); NEUT % 70.6 % (42.8-82.8); PLATELET COUNT 143 K/MM3 (134-434); RBC 4.49 M/mm3 (3.60-5.2); RDW 17.1 % (11.6-15.6); WHITE BLOOD COUNT 4.2 K/mm3 (4.0-10.0)
[2019-05-19] MEDS ORDERED: PIPERACILLIN/TAZOB 3.375 GM 3.375 GM/50 ML BAG IVPB ONE (18:18)
[2019-05-19 19:15] LABS: ARTERIAL BLD GAS O2 SATURATION 96.9 % (95-98); ARTERIAL BLOOD GAS BASE EXCESS 13.7 meq/l (-2-2); ARTERIAL BLOOD GAS PO2 95.5 mmHg (80-105); ARTERIAL BLOOD GAS pH 7.35 (7.35-7.45)
[2019-05-19 19:18] LABS: ARTERIAL BLOOD GAS PCO2 76.7 mmHg (35-45)
[2019-05-19] MEDS ORDERED: ALBUTEROL SO4 2.5/IPRATROPIUM 0.5 INH SOL 3 ML VIAL.NEB. NEB ONE ×2 (19:21→19:30)
[2019-05-19 19:29] LABS: ANISOCYTOSIS 1+; MACROCYTOSIS 1+; OVALOCYTE 1+
[2019-05-19 19:30] LABS: PLATELET ESTIMATE ADEQUATE
[2019-05-19] MEDS ORDERED: ALBUTEROL SO4 2.5/IPRATROPIUM 0.5 INH SOL 3 ML VIAL.NEB. NEB PRN (20:57)
--- NOTE | 2019-05-19 21:02 | HP ---
CHIEF COMPLAINT: lower leg edema and pain, chest tightness PCP: HISTORY OF PRESENT ILLNESS: 88 yo F PMH of COPD (on 2-3L at DC), HTN, Afib, HLD, Pulmonary HTN, HFpEF, cor pulmonale with RV failure presented to ED with worsening lower leg pain and edema. Pt lives at [facility]. Pt states that over the past 3 days she has noticed worsening pain and edema B/L LE. Pt states that in the past she complains in the care home about similar complaints and they give her lasix. Pt states that it has been more difficult for her to go to the bathroom or perform tasks in the care home due to her leg pain. Pt states that she occasionally feels a tightness in her chest. Pt also endorses dysuria and hematuria ER course was notable for: (1) lasix (2)+UA (3) Recent Travel: denies PAST MEDICAL HISTORY: Pulm HTN, cor pulmonale w/ RV failure, HFpEF, HLD, AFib, HTN, COPD ( 2-3 L O2 at Home), ESBL UTI s/p b/l stent PAST SURGICAL HISTORY:Hysterectomy , cholecystectomy, cervical spine with hard saxena , B/L nephrostomy with stent placement Social History: Smoking:denies Alcohol:denies Drugs: denies Family History: denies Allergies levofloxacin [From Levaquin] Allergy (Intermediate, Verified 05/19/19 17:34) Itching HOME MEDICATIONS: Home Medications Medication Instructions Recorded Acetaminophen [Tylenol] 650 mg PO Q8H PRN 01/21/19 Atenolol [Tenormin] 50 mg PO DAILY 01/21/19 Atorvastatin Calcium [Lipitor] 20 mg PO HS 01/21/19 Budesonide/Formeterol Fumarate 2 inh PO BID 01/21/19 [SYMBICORT 160/4.5mcg -] Furosemide [Lasix] 40 mg PO DAILY 01/21/19 Lisinopril [Prinivil] 5 mg PO DAILY 01/21/19 Omeprazole 20 mg PO DAILY 01/21/19 Prednisone 5 mg PO DAILY 01/21/19 Spironolactone [Aldactone] 25 mg .ROUTE DAILY 01/21/19 REVIEW OF SYSTEMS CONSTITUTIONAL: Absent: fever, chills, diaphoresis, generalized weakness, malaise, loss of appetite, weight change HEENT: Absent: rhinorrhea, nasal congestion, throat pain, throat swelling, difficulty swallowing, mouth swelling, ear pain, eye pain, visual changes CARDIOVASCULAR: Present: chest discomfort Absent: syncope, palpitations, lightheadedness, peripheral edema RESPIRATORY: Present: shortness of breath Absent: cough, dyspnea with exertion, orthopnea, hemoptysis GASTROINTESTINAL: Absent: abdominal pain, abdominal distension, nausea, vomiting, diarrhea, constipation, melena, hematochezia GENITOURINARY: Present: dysuria, hesitancy, hematuria Absent: frequency, urgency, flank pain, genital pain MUSCULOSKELETAL: Absent: myalgia, arthralgia, joint swelling, back pain, neck pain SKIN: Absent: rash, itching, pallor HEMATOLOGIC/IMMUNOLOGIC: Absent: easy bleeding, easy bruising, lymphadenopathy, frequent infections ENDOCRINE: Absent: unexplained weight gain, unexplained weight loss, heat intolerance, cold intolerance NEUROLOGIC: Absent: headache, focal weakness or paresthesias, dizziness, unsteady gait, seizure, mental status changes, bladder or bowel incontinence PSYCHIATRIC: Absent: anxiety, depression, suicidal or homicidal ideation, hallucinations. PHYSICAL EXAMINATION Vital Signs - 24 hr 05/19/19 05/19/19 05/19/19 16:29 16:41 16:55 Temperature 99.2 F Pulse Rate 100 H Pulse Rate [ Apical] Respiratory 25 H Rate Blood Pressure 125/82 Blood Pressure [Right Arm] O2 Sat by Pulse 90 L 97 Oximetry (%) 05/19/19 05/19/19 17:00 17:33 Temperature Pulse Rate Pulse Rate [ 76 Apical] Respiratory 17 Rate Blood Pressure Blood Pressure 125/74 [Right Arm] O2 Sat by Pulse 97 97 Oximetry (%) GENERAL: Awake, alert, and fully oriented, in no acute distress. pt on nasal cannula HEAD: Normal with no signs of trauma. EYES: Pupils equal, round and reactive to light, extraocular movements intact, sclera anicteric, conjunctiva clear. No lid lag. NECK: Normal range of motion, supple ; + JVD LUNGS: Breath sounds equal, b/l crackles worse at base. No accessory muscle use. HEART: irregular rate and rhythm, normal S1 and S2 , systolic murmur ABDOMEN: Soft, nontender, not distended, normoactive bowel sounds, no guarding, no rebound, no masses. UPPER EXTREMITIES: 2+ pulses, warm, well-perfused. No cyanosis. No clubbing. No peripheral edema. LOWER EXTREMITIES: warm, No calf tenderness. R>L edema and pain PSYCHIATRIC: Cooperative. Good eye contact.pt tearful on exam Laboratory Last Values WBC 4.2 K/mm3 (4.0-10.0) 05/19/19 16:45 RBC 4.49 M/mm3 (3.60-5.2) 05/19/19 16:45 Hgb 9.5 GM/dL (10.7-15.3) L 05/19/19 16:45 Hct 32.4 % (32.4-45.2) 05/19/19 16:45 MCV 72.2 fl (80-96) L 05/19/19 16:45 MCH 21.2 pg (25.7-33.7) L 05/19/19 16:45 MCHC 29.4 g/dl (32.0-36.0) L 05/19/19 16:45 RDW 17.1 % (11.6-15.6) H 05/19/19 16:45 Plt Count 143 K/MM3 (134-434) 05/19/19 16:45 MPV 9.9 fl (7.5-11.1) 05/19/19 16:45 Absolute Neuts (auto) 3.0 K/mm3 (1.5-8.0) 05/19/19 16:45 Neutrophils % 70.6 % (42.8-82.8) D 05/19/19 16:45 Lymphocytes % 16.8 % (8-40) D 05/19/19 16:45 Monocytes % 11.8 % (3.8-10.2) H 05/19/19 16:45 Eosinophils % 0.4 % (0-4.5) 05/19/19 16:45 Basophils % 0.4 % (0-2.0) 05/19/19 16:45 Nucleated RBC % 0 % (0-0) 05/19/19 16:45 Hypochromia 2+ 05/19/19 16:45 Platelet Estimate Adequate 05/19/19 16:45 Platelet Comment 05/19/19 16:45 Polychromasia 1+ 05/19/19 16:45 Poikilocytosis 1+ 05/19/19 16:45 Anisocytosis 1+ 05/19/19 16:45 Microcytosis 1+ 05/19/19 16:45 Macrocytosis 1+ 05/19/19 16:45 Ovalocytes 1+ 05/19/19 16:45 PT with INR 13.90 SEC (9.7-13.0) H 05/19/19 16:45 INR 1.18 (0.83-1.09) H 05/19/19 16:45 Anticoagulation Therapy No Result Required. 05/19/19 18:53 Puncture Site No Result Required. 05/19/19 18:53 ABG pH 7.35 (7.35-7.45) 05/19/19 18:53 ABG pCO2 at Pt Temp 76.7 mmHg (35-45) H* 05/19/19 18:53 ABG pO2 at Pt Temp 95.5 mmHg (80-105) 05/19/19 18:53 ABG HCO3 41.3 mmol/L (22-27) H 05/19/19 18:53 ABG O2 Sat (Measured) 96.9 % (95-98) 05/19/19 18:53 ABG O2 Content 12.9 % vol (15-22) L 05/19/19 18:53 ABG Base Excess 13.7 meq/l (-2-2) H 05/19/19 18:53 Junior Test No Result Required. 05/19/19 18:53 Carboxyhemoglobin 1.0 % (0-2) 05/19/19 18:53 Methemoglobin 0.4 % (0-2) 05/19/19 18:53 O2 Delivery Device No Result Required. 05/19/19 18:53 Oxygen Flow Rate No Result Required. 05/19/19 18:53 Vent Mode No Result Required. 05/19/19 18:53 Vent Rate No Result Required. 05/19/19 18:53 Mechanical Rate No Result Required. 05/19/19 18:53 Pressure Support Vent No Result Required. 05/19/19 18:53 Sodium 142 mmol/L (136-145) 05/19/19 16:45 Potassium 3.4 mmol/L (3.5-5.1) L 05/19/19 16:45 Chloride 99 mmol/L (98-107) 05/19/19 16:45 Carbon Dioxide 41 mmol/L (21-32) H 05/19/19 16:45 Anion Gap 3 MMOL/L (8-16) L 05/19/19 16:45 BUN 21.0 mg/dL (7-18) H 05/19/19 16:45 Creatinine 0.9 mg/dL (0.55-1.3) 05/19/19 16:45 Est GFR (CKD-EPI)AfAm 65.70 05/19/19 16:45 Est GFR (CKD-EPI)NonAf 56.69 05/19/19 16:45 Random Glucose 142 mg/dL (74-106) H 05/19/19 16:45 Lactic Acid 1.2 mmol/L (0.4-2.0) 05/19/19 16:45 Calcium 9.1 mg/dL (8.5-10.1) 05/19/19 16:45 Magnesium 1.9 mg/dL (1.8-2.4) 05/19/19 16:45 Total Bilirubin 0.5 mg/dL (0.2-1) 05/19/19 16:45 AST 14 U/L (15-37) L 05/19/19 16:45 ALT 17 U/L (13-61) 05/19/19 16:45 Alkaline Phosphatase 73 U/L (45-117) 05/19/19 16:45 Creatine Kinase 84 U/L (26-192) 05/19/19 16:45 Troponin I 0.03 ng/ml (0.00-0.05) 05/19/19 16:45 B-Natriuretic Peptide 4389.4 pg/ml (5-450) H 05/19/19 16:45 Total Protein 6.2 g/dl (6.4-8.2) L 05/19/19 16:45 Albumin 3.3 g/dl (3.4-5.0) L 05/19/19 16:45 Urine Color Yellow 05/19/19 17:00 Urine Appearance Turbid 05/19/19 17:00 Urine pH 6.5 (5.0-8.0) 05/19/19 17:00 Ur Specific [place] 1.018 (1.010-1.035) 05/19/19 17:00 Urine Protein 3+ (NEGATIVE) H 05/19/19 17:00 Urine Glucose (UA) Negative (NEGATIVE) 05/19/19 17:00 Urine Ketones Trace (NEGATIVE) H 05/19/19 17:00 Urine Blood 3+ (NEGATIVE) H 05/19/19 17:00 Urine Nitrite Positive (NEGATIVE) H 05/19/19 17:00 Urine Bilirubin Negative (NEGATIVE) 05/19/19 17:00 Urine Urobilinogen 1.0 mg/dL (0.2-1.0) 05/19/19 17:00 Ur Leukocyte Esterase 3+ (NEGATIVE) H 05/19/19 17:00 Urine WBC (Auto) 411 /hpf (0-5) 05/19/19 17:00 Urine RBC (Auto) 902.8 /hpf (0-4) 05/19/19 17:00 Urine Casts (Auto) 31 /lpf (0-8) 05/19/19 17:00 U Pathogenic Cast Auto None seen /lpf (NEGATIVE) 05/19/19 17:00 U Epithel Cells (Auto) 2.2 /HPF (0-5/HPF) 05/19/19 17:00 Urine Bacteria (Auto) 4480.9 /hpf (NEGATIVE) 05/19/19 17:00 Urine Yeast (Auto) None seen (NEGATIVE) 05/19/19 17:00 ASSESSMENT/PLAN: 88 yo F PMH of COPD (on 2-3L at DC), HTN, Afib, HLD, Pulmonary HTN, HFpEF, cor pulmonale with RV failure presented to ED with worsening lower leg pain and edema.pt is admitted for acute on chronic HFpEF. Pt also found to have a UTI, prior admission grew ESBL Lower Leg edema likely 2/2 Acute on Chronic HFpEF -BNP: 4389 -IV lasix 80 BID -Echo 08/03: reviewed EF 60-65%, R heart failure , consider repeat Echo -monitor I/Os -daily weights -rodriguez UTI -pt s/p B/L stents , last admission 02/02 for ESBL UTI tx w/ ertapenem and linezolid. -pt endorses hematuria, dysuria -(+)UA -awaiting UCx -Empiric Zosyn -c/w linezolid as per prior recs -ID consult appreciated COPD -Nasal cannula 3L O2. goal O2 sat 93-95% -Symbicort daily -Duoneb nebulizer PRN -Prednisone 5mg PO daily HTN -Lisinopril 5mg PO daily -Spironolactone 25mg PO daily HLD -Atorvastatin 20mg PO HS -fasting lipid panel -A1C Afib -continue tele monitor F.E/N -Follow BMP, replete as necessary. monitor K , monitor Mg -Sodium controlled controlled diet Disposition: continue monitoring until pt is medically optimized. Pt is DNR/ DNI at this time Visit type - Emergency Visit Emergency Visit: Yes ED Registration Date: 05/19/19 Care time: The patient presented to the Emergency Department on the above date and was hospitalized for further evaluation of their emergent condition. - New Patient This patient is new to me today: Yes Date on this admission: 05/20/19 - Critical Care Critical Care patient: No ATTENDING PHYSICIAN STATEMENT I saw and evaluated the patient. I reviewed the resident's note and discussed the case with the resident. I agree with the resident's findings and plan as documented. SUBJECTIVE: OBJECTIVE: ASSESSMENT AND PLAN:
[2019-05-19] MEDS: ATORVASTATIN CA 20 MG TABLET (FP) PO SCH (23:45)
[2019-05-19] MEDS: LINEZOLID 600 MG PREMIX BAG 600 MG/300 ML BAG IVPB SCH (23:45)
--- NOTE | 2019-05-20 00:36 | PN ---
Teaching Attending Note Name of Resident: Maci Boyer ATTENDING PHYSICIAN STATEMENT I saw and evaluated the patient. I reviewed the resident's note and discussed the case with the resident. I agree with the resident's findings and plan as documented. She is a very rocky elderly F W COPD, HFREF, PHTN, R HF, on home O2 NH resident was sent to the NH for worsening AMY edema. She states that for the past 2 days she was not able to do her baseline activity of going to the bathroom due to the severe AMY edema, She denies any significant change in the respiratory status. She also mentions the chronic episodes of hematuria intermittently. In the ED she was found to be hypoxic/hypercapnic respiratory which responded well to BIPAP. At this time she has been admitted for volume overload and UTI. She states that she has polyuria due to lasix and has intermittent dysuria and hematuria also present at this time. She is tearfull during the interview and states that she desires to go back home and does not want to stay in the NH. pHex: Last Vital Signs Temp Pulse Resp BP Pulse Ox 99.2 F 76 17 125/74 97 05/19/19 16:29 05/19/19 17:00 05/19/19 17:00 05/19/19 17:00 05/19/19 17:33 S/P nebulizer treatment, Saturating 98% ON 3 L NC, talks in full sentences, no use of accessory muscles, has end expiratory rales CVS:S1S2, + Murmur Abd:BS + NT/ND EXT: B/L pitting 3+ up to trunk CBCD WBC 4.2 K/mm3 (4.0-10.0) 05/19/19 16:45 RBC 4.49 M/mm3 (3.60-5.2) 05/19/19 16:45 Hgb 9.5 GM/dL (10.7-15.3) L 05/19/19 16:45 Hct 32.4 % (32.4-45.2) 05/19/19 16:45 MCV 72.2 fl (80-96) L 05/19/19 16:45 MCHC 29.4 g/dl (32.0-36.0) L 05/19/19 16:45 RDW 17.1 % (11.6-15.6) H 05/19/19 16:45 Plt Count 143 K/MM3 (134-434) 05/19/19 16:45 MPV 9.9 fl (7.5-11.1) 05/19/19 16:45 CMP Sodium 142 mmol/L (136-145) 05/19/19 16:45 Potassium 3.4 mmol/L (3.5-5.1) L 05/19/19 16:45 Chloride 99 mmol/L (98-107) 05/19/19 16:45 Carbon Dioxide 41 mmol/L (21-32) H 05/19/19 16:45 Anion Gap 3 MMOL/L (8-16) L 05/19/19 16:45 BUN 21.0 mg/dL (7-18) H 05/19/19 16:45 Creatinine 0.9 mg/dL (0.55-1.3) 05/19/19 16:45 Random Glucose 142 mg/dL (74-106) H 05/19/19 16:45 Calcium 9.1 mg/dL (8.5-10.1) 05/19/19 16:45 Total Bilirubin 0.5 mg/dL (0.2-1) 05/19/19 16:45 AST 14 U/L (15-37) L 05/19/19 16:45 ALT 17 U/L (13-61) 05/19/19 16:45 Alkaline Phosphatase 73 U/L (45-117) 05/19/19 16:45 Total Protein 6.2 g/dl (6.4-8.2) L 05/19/19 16:45 Albumin 3.3 g/dl (3.4-5.0) L 05/19/19 16:45 CARDIAC ENZYMES Creatine Kinase 84 U/L (26-192) 05/19/19 16:45 Troponin I 0.03 ng/ml (0.00-0.05) 05/19/19 16:45 A&P AMY edema: Will C/w Lasix 80 Mg Iv BID and will measure BMP BID and I/O and Daily weight no clear etiology of her volume overload at this time. She is in NH, has intermittent retrosternal chest pressure which she states it improves with managing her stress and calming herself down.will get another TTE. Will optimized BP and antianginal medication, will ask for cardiology consult C/W O2 for PHTN and RHF for HFPEF, C/W AntiHTN medication Keep K>4, Mg>2 Hypoxic/hypercapnic respiratory failure: is doing well of BIPAP at this time, doing well on 3 L NC, goal O2 sat 93-95% no need for treating for COPD exacerbation at this time will C/W home medication she states that she wants ot be DNR/DNI at this time. rest of grady management per HS note
[2019-05-20] MEDS: BUDESONIDE/FORMETEROL FUMARATE 160/4.5 mcg INHALER IH SCH ×3 (02:05→23:04)
[2019-05-20] MEDS ORDERED: FUROSEMIDE 40 MG/4 ML INJECTABLE VIAL IVPUSH SCH (06:00)
[2019-05-20 06:22] LABS: BASO % 1.2 % (0-2.0); EOS % 1.7 % (0-4.5); HEMATOCRIT 29.4 % (32.4-45.2); HEMOGLOBIN 8.9 GM/dL (10.7-15.3); LYMPH % 32.3 % (8-40); MCH 21.4 pg (25.7-33.7); MCHC 30.3 g/dl (32.0-36.0); MEAN CELL VOLUME 70.7 fl (80-96); MEAN PLT VOLUME 8.9 fl (7.5-11.1); MONO % 17.9 % (3.8-10.2); NEUT % 46.9 % (42.8-82.8); PLATELET COUNT 129 K/MM3 (134-434); RBC 4.16 M/mm3 (3.60-5.2); RDW 16.6 % (11.6-15.6); WHITE BLOOD COUNT 3.7 K/mm3 (4.0-10.0)
[2019-05-20 06:48] LABS: ALK PHOS 55 U/L (45-117); ANION GAP 3 MMOL/L (8-16); BILIRUBIN,TOTAL 0.5 mg/dL (0.2-1); BLOOD UREA NITROGEN 16.3 mg/dL (7-18); CALCIUM 8.6 mg/dL (8.5-10.1); CHLORIDE 96 mmol/L (98-107); CO2 > 45 mmol/L (21-32); CREATININE 0.7 mg/dL (0.55-1.3); GLUCOSE,RANDOM 108 mg/dL (74-106); MAGNESIUM 1.6 mg/dL (1.8-2.4); SGOT/AST 14 U/L (15-37); SGPT/ALT 14 U/L (13-61); SODIUM 144 mmol/L (136-145); TOT PROT 5.6 g/dl (6.4-8.2)
[2019-05-20 07:03] LABS: POTASSIUM 2.9 mmol/L (3.5-5.1)
[2019-05-20] MEDS ORDERED: MAGNESIUM SULF 50% (8.12 MEQ/2 ML-1 GM VIAL) IVPB ONE (07:56)
[2019-05-20] MEDS ORDERED: KCL 10 MEQ IVPB 40 MEQ/400 ML INFUS.BAG IVPB ONE (08:03)
[2019-05-20] MEDS ORDERED: MAGNESIUM SULF 50% (8.12 MEQ/2 ML-1 GM VIAL) ONE (08:03)
[2019-05-20] MEDS: KCL 10 MEQ IVPB 10 MEQ/100 ML INFUS.BAG IVPB SCH ×3 (08:25→11:25)
--- NOTE | 2019-05-20 09:13 | EKG ---
Test Reason : Blood Pressure : / mmHG Vent. Rate : 084 BPM Atrial Rate : 178 BPM P-R Int : 000 ms QRS Dur : 080 ms QT Int : 380 ms P-R-T Axes : 000 110 004 degrees QTc Int : 449 ms ATRIAL FIBRILLATION RIGHT AXIS DEVIATION ABNORMAL ECG WHEN COMPARED WITH ECG OF 23-JAN-2019 18:14, QRS AXIS SHIFTED RIGHT Confirmed by SATNAM DU MD ([id number]) on 05/20/2019 9:13:08 AM Referred By: Confirmed By:SATNAM DU MD
[2019-05-20] MEDS ORDERED: PT OWN MED DRAWER 7, Y5N ONE (10:07)
[2019-05-20] MEDS: LINEZOLID 600 MG PREMIX BAG 600 MG/300 ML BAG IVPB SCH ×2 (10:49→22:22)
[2019-05-20] MEDS: predniSONE 5 MG TABLET (UD) PO SCH (10:50)
[2019-05-20] MEDS: ATENOLOL 50 MG TABLET (FP) PO SCH (10:50)
[2019-05-20] MEDS: LISINOPRIL 5 MG TABLET (FP) PO SCH (10:50)
[2019-05-20] MEDS: SPIRONOLACTONE 25 MG TABLET (FP) PO SCH (10:50)
[2019-05-20] MEDS: ASPIRIN COATED 81 MG TABLET.EC PO SCH (10:50)
[2019-05-20] MEDS ORDERED: POTASSIUM CHLORIDE TABS 20 MEQ TABLET.ER (FP) PO ONE (10:51)
--- NOTE | 2019-05-20 11:17 | CONSULT ---
Consult - text type - Consultation Consultation Note: Cardiology (Dr. Pyle for Dr. 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 No dyspnea, chest pains or palpitations VS: 105/50mmHg, P 76/min 100% 2L NC JVP elevated Irregular rate, no RV heave, no murmurs Lungs are with diminished BS bilaterally (+) 2 pitting LE edema ECG: on 05/19/2019 at 16:39 shows AF at 89/min Echo 07/2018 Normal LV function, moderate RA and RV dilation with RVSP 74mmHg CXR (imaged reviewed) Cardiomegally, dilated PA, alveolar pattern Labs: Hgb 8.9, K 2.9, Creat 0.7, BNP 4389, Trop 0.03 Impression 88 yo female with known RH cor pulmonale Now readmitted with recurrent RH failure/edema, HFpEF, elevated BNP with UTI Plan: 1) acute on chronic diastolic HF exacerbation -Lasix 40mg IV BID 2) afib: - HR control mostly good, cont bb - As per prior admission in 12/2018, holding eliquis for hx of severe hematuria, anemia - cont aspirin 3) UTI -As per ID 4) COPD - manage per primary 5) HLD - continue statin
[2019-05-20] MEDS ORDERED: ACETAMINOPHEN 325 MG TABLET (FP) ONE (11:18)
--- NOTE | 2019-05-20 12:24 | CON.ID ---
Consult - History of Present Illness History of Present Illness: 88 y.o. female [place] resident with PMH of CHF, AFIB (not on AC), CAD, HTN, HLD, Pulm HTN, Cor Pulmonale, respiratory failure, COPD, Sarcoidosis, anemia, b/l nephrostomy (removed), b/l stent placement in October 2018, previous ESBL + and VRE UTI, S/P cervical spine surgery with hardware presents with c/o SOB and O2 sat in the 70s at the [place]. Pt states she started developing weakness and slight SOB about 2 wks ago and has been having b/l LE edema. In addition pt c/o dysuria /suprapubic discomfort. In the ER she presented with mild temp elevation to 99.2F, tachycardia HR 100, tachypnea RR 25, and O2 sat of 90% for which she was initially placed on BIPAP. CXR revealed pulmonary congestion and U/A is suggestive of UTI. She has been started on empiric IV antibiotics. Currently pt is alert and conversive, without acute distress, and is afebrile. Saturating well on O2 NC. No other specific complaints. 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: Vertigo (intermittent) Cardio/Vascular: Yes: AFIB, CHF, HTN, Hyperlipdemia, Pulmonary Hypertension, Other (Sarcoidosis) Pulmonary: Yes: Asthma, COPD Gastrointestinal: Yes: GERD Renal/: Yes: Hematuria, UTI Heme/Onc: Yes: Anemia Psych: Yes: Depression Musculoskeletal: Yes: Osteoarthritis - Past Surgical History Past Surgical History: Yes: Cholecystectomy, Hysterectomy Additional Surgical History: Cervical spine surgery/hardware - Alcohol/Substance Use Hx Alcohol Use: No History of Substance Use: reports: None - Smoking History Smoking history: Never smoked Have you smoked in the past 12 months: No Aproximately how many cigarettes per day: 0 - Social History Usual Living Arrangement: Other (most recently has been at [place]/ [facility], and since developing pain has been ambulating with ) History of Recent Travel: No Home Medications - Allergies Allergies/Adverse Reactions: Allergies Allergy/AdvReac Type Severity Reaction Status Date / Time levofloxacin [From Levaquin] Allergy Intermediate Itching Verified 05/19/19 17: 34 - Home Medications Home Medications: Ambulatory Orders Acetaminophen [Tylenol] 650 mg PO Q8H PRN 01/21/19 Atenolol [Tenormin] 50 mg PO DAILY 01/21/19 Atorvastatin Calcium [Lipitor] 20 mg PO HS 01/21/19 Budesonide/Formeterol Fumarate [SYMBICORT 160/4.5mcg -] 2 inh PO BID 01/21/19 Furosemide [Lasix] 40 mg PO DAILY 01/21/19 Lisinopril [Prinivil] 5 mg PO DAILY 01/21/19 Omeprazole 20 mg PO DAILY 01/21/19 Prednisone 5 mg PO DAILY 01/21/19 Spironolactone [Aldactone] 25 mg .ROUTE DAILY 01/21/19 Family Disease History - Family Disease History Family Disease History: Heart Disease: Father, Mother, Other: Sister (Colon cancer) Review of Systems - Review of Systems Constitutional: reports: Weakness Eyes: reports: No Symptoms HENT: reports: No Symptoms Neck: reports: No Symptoms Cardiovascular: reports: Shortness of Breath Respiratory: reports: SOB Gastrointestinal: reports: No Symptoms Genitourinary: reports: Dysuria Breasts: reports: No Symptoms Reported Musculoskeletal: reports: No Symptoms Integumentary: reports: No Symptoms Neurological: reports: No Symptoms Endocrine: reports: No Symptoms Hematology/Lymphatic: reports: No Symptoms Psychiatric: reports: No Symptoms Physical Exam Vital Signs: Vital Signs Temperature 98 F 05/20/19 12:09 Pulse Rate 75 05/20/19 12:09 Respiratory Rate 19 05/20/19 12:09 Blood Pressure 109/65 05/20/19 12:09 O2 Sat by Pulse Oximetry (%) 99 05/20/19 12:09 Constitutional: Yes: No Distress Eyes: Yes: Conjunctiva Clear, EOM Intact HENT: Yes: Atraumatic, Normocephalic Neck: Yes: Supple, Trachea Midline Cardiovascular: Yes: Pulse Irregular Respiratory: Yes: Rales (basilar) Gastrointestinal: Yes: Normal Bowel Sounds, Soft, Abdomen, Obese Renal/: Yes: CVA Tenderness - Right, Aguayo Present, Other (suprapubic tenderness) Musculoskeletal: Yes: WNL Extremities: Yes: WNL Edema: LLE: 2+, RLE: 2+ Peripheral Pulses WNL: Yes Integumentary: Yes: WNL Neurological: Yes: Alert Labs: CBC, BMP 05/20/19 06:00 05/20/19 06:00 Laboratory Tests 05/19/19 05/19/19 05/19/19 16:45 16:45 16:45 WBC RBC Hgb Hct MCV MCH MCHC RDW Plt Count MPV Absolute Neuts (auto) Neutrophils % Lymphocytes % Monocytes % Eosinophils % Basophils % Nucleated RBC % Hypochromia Platelet Estimate Platelet Comment Polychromasia Poikilocytosis Anisocytosis Microcytosis Macrocytosis Ovalocytes PT with INR 13.90 H INR 1.18 H Anticoagulation Therapy Puncture Site ABG pH ABG pCO2 at Pt Temp ABG pO2 at Pt Temp ABG HCO3 ABG O2 Sat (Measured) ABG O2 Content ABG Base Excess Junior Test Carboxyhemoglobin Methemoglobin O2 Delivery Device Oxygen Flow Rate Vent Mode Vent Rate Mechanical Rate Pressure Support Vent Sodium Potassium Chloride Carbon Dioxide Anion Gap BUN Creatinine Est GFR (CKD-EPI)AfAm Est GFR (CKD-EPI)NonAf POC Glucometer Random Glucose Lactic Acid 1.2 Calcium Magnesium Total Bilirubin AST ALT Alkaline Phosphatase Creatine Kinase 84 Troponin I 0.03 B-Natriuretic Peptide Total Protein Albumin Urine Color Urine Appearance Urine pH Ur Specific [place] Urine Protein Urine Glucose (UA) Urine Ketones Urine Blood Urine Nitrite Urine Bilirubin Urine Urobilinogen Ur Leukocyte Esterase Urine WBC (Auto) Urine RBC (Auto) Urine Casts (Auto) U Pathogenic Cast Auto U Epithel Cells (Auto) Urine Bacteria (Auto) Urine Yeast (Auto) 05/19/19 05/19/19 05/19/19 16:45 16:45 16:45 WBC 4.2 RBC 4.49 Hgb 9.5 L Hct 32.4 MCV 72.2 L MCH 21.2 L MCHC 29.4 L RDW 17.1 H Plt Count 143 MPV 9.9 Absolute Neuts (auto) 3.0 Neutrophils % 70.6 D Lymphocytes % 16.8 D Monocytes % 11.8 H Eosinophils % 0.4 Basophils % 0.4 Nucleated RBC % 0 Hypochromia 2+ Platelet Estimate Adequate Platelet Comment Polychromasia 1+ Poikilocytosis 1+ Anisocytosis 1+ Microcytosis 1+ Macrocytosis 1+ Ovalocytes 1+ PT with INR INR Anticoagulation Therapy No Result Required. Puncture Site No Result Required. ABG pH 7.29 L ABG pCO2 at Pt Temp 88.4 H* ABG pO2 at Pt Temp 26.6 L* ABG HCO3 40.8 H ABG O2 Sat (Measured) 33.2 L ABG O2 Content 4.5 L* ABG Base Excess 12.0 H Junior Test No Result Required. Carboxyhemoglobin 0.6 Methemoglobin 0.5 O2 Delivery Device No Result Required. Oxygen Flow Rate No Result Required. Vent Mode No Result Required. Vent Rate No Result Required. Mechanical Rate No Result Required. Pressure Support Vent No Result Required. Sodium 142 Potassium 3.4 L Chloride 99 Carbon Dioxide 41 H Anion Gap 3 L BUN 21.0 H Creatinine 0.9 Est GFR (CKD-EPI)AfAm 65.70 Est GFR (CKD-EPI)NonAf 56.69 POC Glucometer Random Glucose 142 H Lactic Acid Calcium 9.1 Magnesium 1.9 Total Bilirubin 0.5 AST 14 L ALT 17 Alkaline Phosphatase 73 Creatine Kinase Troponin I B-Natriuretic Peptide 4389.4 H Total Protein 6.2 L Albumin 3.3 L Urine Color Urine Appearance Urine pH Ur Specific [place] Urine Protein Urine Glucose (UA) Urine Ketones Urine Blood Urine Nitrite Urine Bilirubin Urine Urobilinogen Ur Leukocyte Esterase Urine WBC (Auto) Urine RBC (Auto) Urine Casts (Auto) U Pathogenic Cast Auto U Epithel Cells (Auto) Urine Bacteria (Auto) Urine Yeast (Auto) 05/19/19 05/19/19 05/20/19 17:00 18:53 06:00 WBC 3.7 L RBC 4.16 Hgb 8.9 L Hct 29.4 L MCV 70.7 L MCH 21.4 L MCHC 30.3 L RDW 16.6 H Plt Count 129 L MPV 8.9 D Absolute Neuts (auto) 1.7 Neutrophils % 46.9 D Lymphocytes % 32.3 D Monocytes % 17.9 H Eosinophils % 1.7 D Basophils % 1.2 Nucleated RBC % 0 Hypochromia Platelet Estimate Platelet Comment Polychromasia Poikilocytosis Anisocytosis Microcytosis Macrocytosis Ovalocytes PT with INR INR Anticoagulation Therapy No Result Required. Puncture Site No Result Required. ABG pH 7.35 ABG pCO2 at Pt Temp 76.7 H* ABG pO2 at Pt Temp 95.5 ABG HCO3 41.3 H ABG O2 Sat (Measured) 96.9 ABG O2 Content 12.9 L ABG Base Excess 13.7 H Junior Test No Result Required. Carboxyhemoglobin 1.0 Methemoglobin 0.4 O2 Delivery Device No Result Required. Oxygen Flow Rate No Result Required. Vent Mode No Result Required. Vent Rate No Result Required. Mechanical Rate No Result Required. Pressure Support Vent No Result Required. Sodium Potassium Chloride Carbon Dioxide Anion Gap BUN Creatinine Est GFR (CKD-EPI)AfAm Est GFR (CKD-EPI)NonAf POC Glucometer Random Glucose Lactic Acid Calcium Magnesium Total Bilirubin AST ALT Alkaline Phosphatase Creatine Kinase Troponin I B-Natriuretic Peptide Total Protein Albumin Urine Color Yellow Urine Appearance Turbid Urine pH 6.5 Ur Specific [place] 1.018 Urine Protein 3+ H Urine Glucose (UA) Negative Urine Ketones Trace H Urine Blood 3+ H Urine Nitrite Positive H Urine Bilirubin Negative Urine Urobilinogen 1.0 Ur Leukocyte Esterase 3+ H Urine WBC (Auto) 411 Urine RBC (Auto) 902.8 Urine Casts (Auto) 31 U Pathogenic Cast Auto None seen U Epithel Cells (Auto) 2.2 Urine Bacteria (Auto) 4480.9 Urine Yeast (Auto) None seen 05/20/19 05/20/19 06:00 08:37 WBC RBC Hgb Hct MCV MCH MCHC RDW Plt Count MPV Absolute Neuts (auto) Neutrophils % Lymphocytes % Monocytes % Eosinophils % Basophils % Nucleated RBC % Hypochromia Platelet Estimate Platelet Comment Polychromasia Poikilocytosis Anisocytosis Microcytosis Macrocytosis Ovalocytes PT with INR INR Anticoagulation Therapy Puncture Site ABG pH ABG pCO2 at Pt Temp ABG pO2 at Pt Temp ABG HCO3 ABG O2 Sat (Measured) ABG O2 Content ABG Base Excess Junior Test Carboxyhemoglobin Methemoglobin O2 Delivery Device Oxygen Flow Rate Vent Mode Vent Rate Mechanical Rate Pressure Support Vent Sodium 144 Potassium 2.9 L* Chloride 96 L Carbon Dioxide > 45 H Anion Gap 3 L BUN 16.3 Creatinine 0.7 Est GFR (CKD-EPI)AfAm 89.03 Est GFR (CKD-EPI)NonAf 76.82 POC Glucometer 90 Random Glucose 108 H Lactic Acid Calcium 8.6 Magnesium 1.6 L Total Bilirubin 0.5 AST 14 L ALT 14 Alkaline Phosphatase 55 Creatine Kinase Troponin I B-Natriuretic Peptide Total Protein 5.6 L Albumin 3.0 L Urine Color Urine Appearance Urine pH Ur Specific [place] Urine Protein Urine Glucose (UA) Urine Ketones Urine Blood Urine Nitrite Urine Bilirubin Urine Urobilinogen Ur Leukocyte Esterase Urine WBC (Auto) Urine RBC (Auto) Urine Casts (Auto) U Pathogenic Cast Auto U Epithel Cells (Auto) Urine Bacteria (Auto) Urine Yeast (Auto) Imaging - Results Chest X-ray: Report Reviewed (pulmonary congestion) Ultrasound: Report Reviewed (doppler : no DVT) Problem List - Problems (1) UTI (urinary tract infection) Code(s): N39.0 - URINARY TRACT INFECTION, SITE NOT SPECIFIED Qualifiers: Urinary tract infection type: site unspecified Hematuria presence: with hematuria Qualified Code(s): N39.0 - Urinary tract infection, site not specified; R31.9 - Hematuria, unspecified (2) CHF (congestive heart failure) Code(s): I50.9 - HEART FAILURE, UNSPECIFIED Qualifiers: Heart failure type: unspecified Heart failure chronicity: unspecified Qualified Code(s): I50.9 - Heart failure, unspecified (3) Atrial fibrillation Code(s): I48.91 - UNSPECIFIED ATRIAL FIBRILLATION Qualifiers: Atrial fibrillation type: permanent Qualified Code(s): I48.2 - Chronic atrial fibrillation (4) COPD (chronic obstructive pulmonary disease) Code(s): J44.9 - CHRONIC OBSTRUCTIVE PULMONARY DISEASE, UNSPECIFIED Qualifiers: COPD type: unspecified COPD Qualified Code(s): J44.9 - Chronic obstructive pulmonary disease, unspecified (5) Coronary artery disease Code(s): I25.10 - ATHSCL HEART DISEASE OF [place] CORONARY ARTERY W/O ANG PCTRS Qualifiers: Coronary Disease-Associated Artery/Lesion type: [place] artery [place] vs. transplanted heart: [place] heart Associated angina: without angina Qualified Code(s): I25.10 - Atherosclerotic heart disease of [place] coronary artery without angina pectoris (6) Hypercholesterolemia Code(s): E78.00 - PURE HYPERCHOLESTEROLEMIA, UNSPECIFIED (7) Hypertension Code(s): I10 - ESSENTIAL (PRIMARY) HYPERTENSION Qualifiers: Hypertension type: essential hypertension Qualified Code(s): I10 - Essential (primary) hypertension (8) Pulmonary HTN Code(s): I27.20 - PULMONARY HYPERTENSION, UNSPECIFIED (9) Sarcoidosis Code(s): D86.9 - SARCOIDOSIS, UNSPECIFIED (10) SANAM (acute kidney injury) Code(s): N17.9 - ACUTE KIDNEY FAILURE, UNSPECIFIED (11) Hypokalemia Code(s): E87.6 - HYPOKALEMIA (12) Hypoxia Code(s): R09.02 - HYPOXEMIA (13) Shortness of breath at rest Code(s): R06.02 - SHORTNESS OF BREATH Assessment/Plan 88 y.o. female [place] resident with PMH of CHF, AFIB (not on AC), CAD, HTN, HLD, Pulm HTN, Cor Pulmonale, respiratory failure, COPD, Sarcoidosis, anemia, b/l nephrostomy (removed), b/l stent placement in October 2018, previous ESBL + and VRE UTI, S/P cervical spine surgery with hardware presents with c/o SOB, b/l LE edema, and dysuria. Hypoxic, tachycardic, with evidence of pulmonary congestion and U/A suggestive of UTI Complicated UTI/ b/l stents (Hx of ESBL+/VRE) CHF Exacerbation Acute respiratory failure COPD Pulm HTN Sarcoidosis CAD AFIB Anemia -- will start Meropenem/Linezolid empirically for now, f/u Urine culture and Blood culture results -- place on contact isolation for now -- suggest renal sonogram -- Cardiology following -- continue monitor vitals Pt currently without acute respiratory distress, alert, afebrile Will follow Thank you
[2019-05-20] MEDS: MEROPENEM 1 GM in DEXTROSE 5%-WATER 100 ML IVPB SCH ×2 (12:35→22:23)
--- NOTE | 2019-05-20 14:59 | PN ---
Progress Note (short form) - Note Progress Note: SUBJECTIVE: Complains of ongoing LE edema and weeping from LEs. No chest pain/ palpitations. SOB much improved. No cough/sputum/hemoptysis. No fever/chills. Admits to dysuria/occasional hematuria. OBJECTIVE: Afebrile, Hemodynamically Stable. Last Vital Signs Temp Pulse Resp BP Pulse Ox 98 F 75 19 109/65 99 05/20/19 12:09 05/20/19 12:05/20/19 12:05/20/19 12:05/20/19 12:09 HEENT - Atramatic, Normocephalic Heart - S1, S2, sott SM Lungs - basal crackles Abdomen - soft, non-tender. Bowel Sounds normal. Extremities - LE Edema ++ Neuro - AAO x 3. Tone/Power normal all extremities. Laboratory Results - last 24 hr 05/19/19 05/19/19 05/19/19 16:45 16:45 16:45 WBC RBC Hgb Hct MCV MCH MCHC RDW Plt Count MPV Absolute Neuts (auto) Neutrophils % Lymphocytes % Monocytes % Eosinophils % Basophils % Nucleated RBC % Hypochromia Platelet Estimate Platelet Comment Polychromasia Poikilocytosis Anisocytosis Microcytosis Macrocytosis Ovalocytes PT with INR 13.90 H INR 1.18 H Anticoagulation Therapy Puncture Site ABG pH ABG pCO2 at Pt Temp ABG pO2 at Pt Temp ABG HCO3 ABG O2 Sat (Measured) ABG O2 Content ABG Base Excess Junior Test Carboxyhemoglobin Methemoglobin O2 Delivery Device Oxygen Flow Rate Vent Mode Vent Rate Mechanical Rate Pressure Support Vent Sodium Potassium Chloride Carbon Dioxide Anion Gap BUN Creatinine Est GFR (CKD-EPI)AfAm Est GFR (CKD-EPI)NonAf POC Glucometer Random Glucose Lactic Acid 1.2 Calcium Magnesium Total Bilirubin AST ALT Alkaline Phosphatase Creatine Kinase 84 Troponin I 0.03 B-Natriuretic Peptide Total Protein Albumin Urine Color Urine Appearance Urine pH Ur Specific [place] Urine Protein Urine Glucose (UA) Urine Ketones Urine Blood Urine Nitrite Urine Bilirubin Urine Urobilinogen Ur Leukocyte Esterase Urine WBC (Auto) Urine RBC (Auto) Urine Casts (Auto) U Pathogenic Cast Auto U Epithel Cells (Auto) Urine Bacteria (Auto) Urine Yeast (Auto) 05/19/19 05/19/19 05/19/19 16:45 16:45 16:45 WBC 4.2 RBC 4.49 Hgb 9.5 L Hct 32.4 MCV 72.2 L MCH 21.2 L MCHC 29.4 L RDW 17.1 H Plt Count 143 MPV 9.9 Absolute Neuts (auto) 3.0 Neutrophils % 70.6 D Lymphocytes % 16.8 D Monocytes % 11.8 H Eosinophils % 0.4 Basophils % 0.4 Nucleated RBC % 0 Hypochromia 2+ Platelet Estimate Adequate Platelet Comment Polychromasia 1+ Poikilocytosis 1+ Anisocytosis 1+ Microcytosis 1+ Macrocytosis 1+ Ovalocytes 1+ PT with INR INR Anticoagulation Therapy No Result Required. Puncture Site No Result Required. ABG pH 7.29 L ABG pCO2 at Pt Temp 88.4 H* ABG pO2 at Pt Temp 26.6 L* ABG HCO3 40.8 H ABG O2 Sat (Measured) 33.2 L ABG O2 Content 4.5 L* ABG Base Excess 12.0 H Junior Test No Result Required. Carboxyhemoglobin 0.6 Methemoglobin 0.5 O2 Delivery Device No Result Required. Oxygen Flow Rate No Result Required. Vent Mode No Result Required. Vent Rate No Result Required. Mechanical Rate No Result Required. Pressure Support Vent No Result Required. Sodium 142 Potassium 3.4 L Chloride 99 Carbon Dioxide 41 H Anion Gap 3 L BUN 21.0 H Creatinine 0.9 Est GFR (CKD-EPI)AfAm 65.70 Est GFR (CKD-EPI)NonAf 56.69 POC Glucometer Random Glucose 142 H Lactic Acid Calcium 9.1 Magnesium 1.9 Total Bilirubin 0.5 AST 14 L ALT 17 Alkaline Phosphatase 73 Creatine Kinase Troponin I B-Natriuretic Peptide 4389.4 H Total Protein 6.2 L Albumin 3.3 L Urine Color Urine Appearance Urine pH Ur Specific [place] Urine Protein Urine Glucose (UA) Urine Ketones Urine Blood Urine Nitrite Urine Bilirubin Urine Urobilinogen Ur Leukocyte Esterase Urine WBC (Auto) Urine RBC (Auto) Urine Casts (Auto) U Pathogenic Cast Auto U Epithel Cells (Auto) Urine Bacteria (Auto) Urine Yeast (Auto) 05/19/19 05/19/19 05/20/19 17:00 18:53 06:00 WBC 3.7 L RBC 4.16 Hgb 8.9 L Hct 29.4 L MCV 70.7 L MCH 21.4 L MCHC 30.3 L RDW 16.6 H Plt Count 129 L MPV 8.9 D Absolute Neuts (auto) 1.7 Neutrophils % 46.9 D Lymphocytes % 32.3 D Monocytes % 17.9 H Eosinophils % 1.7 D Basophils % 1.2 Nucleated RBC % 0 Hypochromia Platelet Estimate Platelet Comment Polychromasia Poikilocytosis Anisocytosis Microcytosis Macrocytosis Ovalocytes PT with INR INR Anticoagulation Therapy No Result Required. Puncture Site No Result Required. ABG pH 7.35 ABG pCO2 at Pt Temp 76.7 H* ABG pO2 at Pt Temp 95.5 ABG HCO3 41.3 H ABG O2 Sat (Measured) 96.9 ABG O2 Content 12.9 L ABG Base Excess 13.7 H Junior Test No Result Required. Carboxyhemoglobin 1.0 Methemoglobin 0.4 O2 Delivery Device No Result Required. Oxygen Flow Rate No Result Required. Vent Mode No Result Required. Vent Rate No Result Required. Mechanical Rate No Result Required. Pressure Support Vent No Result Required. Sodium Potassium Chloride Carbon Dioxide Anion Gap BUN Creatinine Est GFR (CKD-EPI)AfAm Est GFR (CKD-EPI)NonAf POC Glucometer Random Glucose Lactic Acid Calcium Magnesium Total Bilirubin AST ALT Alkaline Phosphatase Creatine Kinase Troponin I B-Natriuretic Peptide Total Protein Albumin Urine Color Yellow Urine Appearance Turbid Urine pH 6.5 Ur Specific [place] 1.018 Urine Protein 3+ H Urine Glucose (UA) Negative Urine Ketones Trace H Urine Blood 3+ H Urine Nitrite Positive H Urine Bilirubin Negative Urine Urobilinogen 1.0 Ur Leukocyte Esterase 3+ H Urine WBC (Auto) 411 Urine RBC (Auto) 902.8 Urine Casts (Auto) 31 U Pathogenic Cast Auto None seen U Epithel Cells (Auto) 2.2 Urine Bacteria (Auto) 4480.9 Urine Yeast (Auto) None seen 05/20/19 05/20/19 06:00 08:37 WBC RBC Hgb Hct MCV MCH MCHC RDW Plt Count MPV Absolute Neuts (auto) Neutrophils % Lymphocytes % Monocytes % Eosinophils % Basophils % Nucleated RBC % Hypochromia Platelet Estimate Platelet Comment Polychromasia Poikilocytosis Anisocytosis Microcytosis Macrocytosis Ovalocytes PT with INR INR Anticoagulation Therapy Puncture Site ABG pH ABG pCO2 at Pt Temp ABG pO2 at Pt Temp ABG HCO3 ABG O2 Sat (Measured) ABG O2 Content ABG Base Excess Junior Test Carboxyhemoglobin Methemoglobin O2 Delivery Device Oxygen Flow Rate Vent Mode Vent Rate Mechanical Rate Pressure Support Vent Sodium 144 Potassium 2.9 L* Chloride 96 L Carbon Dioxide > 45 H Anion Gap 3 L BUN 16.3 Creatinine 0.7 Est GFR (CKD-EPI)AfAm 89.03 Est GFR (CKD-EPI)NonAf 76.82 POC Glucometer 90 Random Glucose 108 H Lactic Acid Calcium 8.6 Magnesium 1.6 L Total Bilirubin 0.5 AST 14 L ALT 14 Alkaline Phosphatase 55 Creatine Kinase Troponin I B-Natriuretic Peptide Total Protein 5.6 L Albumin 3.0 L Urine Color Urine Appearance Urine pH Ur Specific [place] Urine Protein Urine Glucose (UA) Urine Ketones Urine Blood Urine Nitrite Urine Bilirubin Urine Urobilinogen Ur Leukocyte Esterase Urine WBC (Auto) Urine RBC (Auto) Urine Casts (Auto) U Pathogenic Cast Auto U Epithel Cells (Auto) Urine Bacteria (Auto) Urine Yeast (Auto) Current Medications Generic Name Dose Route Start Last Admin Trade Name Freq PRN Reason Stop Dose Admin Acetaminophen 650 mg 05/20/19 07:57 Tylenol - PO Q6H PRN PAIN 1-3 Albuterol/Ipratropium 1 amp 05/19/19 20:57 05/20/19 12:44 Duoneb - NEB 1 amp Q6H PRN Administration SHORTNESS OF BREATH Aspirin 81 mg 05/20/19 10:00 05/20/19 10:50 Ecotrin - PO 81 mg DAILY LISA Administration Atenolol 50 mg 05/20/19 10:00 05/20/19 10:50 Tenormin - PO 50 mg DAILY LISA Administration Atorvastatin Calcium 20 mg 05/19/19 22:00 05/19/19 23:45 Lipitor - PO 20 mg HS LISA Administration Budesonide/Formoterol Fumarate 2 puff 05/19/19 22:00 05/20/19 10:49 Symbicort 160/4.5mcg - IH Not Given BID [facility] Furosemide 40 mg 05/20/19 14:00 Lasix Injection - IVPUSH BID@0600,1400 [facility] Linezolid 600 mg in 300 mls @ 300 mls/hr 05/20/19 22:00 Zyvox 600 Mg Premix Bag (Restricted To Id) - IVPB BID [facility] Protocol Meropenem 1 gm/ Dextrose 100 mls @ 0 mls/hr 05/20/19 11:45 05/20/19 12:35 IVPB 100 mls/hr BID LISA Administration As Directed Lisinopril 5 mg 05/20/19 10:00 05/20/19 10:50 Prinivil PO 5 mg DAILY LISA Administration Prednisone 5 mg 05/20/19 10:00 05/20/19 10:50 Deltasone - PO 5 mg DAILY LISA Administration Spironolactone 25 mg 05/20/19 10:00 05/20/19 10:50 Aldactone - PO 25 mg DAILY LISA Administration Home Medications Medication Instructions Recorded Acetaminophen [Tylenol] 650 mg PO Q8H PRN 01/21/19 Atenolol [Tenormin] 50 mg PO DAILY 01/21/19 Atorvastatin Calcium [Lipitor] 20 mg PO HS 01/21/19 Budesonide/Formeterol Fumarate 2 inh PO BID 01/21/19 [SYMBICORT 160/4.5mcg -] Furosemide [Lasix] 40 mg PO DAILY 01/21/19 Lisinopril [Prinivil] 5 mg PO DAILY 01/21/19 Omeprazole 20 mg PO DAILY 01/21/19 Prednisone 5 mg PO DAILY 01/21/19 Spironolactone [Aldactone] 25 mg .ROUTE DAILY 01/21/19 ASSESSMENT/PLAN 88 year old female with history of CRF sec to COPD (on 2-3L O2), Pulmonary Sarcoid, HTN, Atrial Fibrillation, HLD, Pulmonary HTN, Chronic Diastolic CHF, cor pulmonale with RV failure, Hx of ESBL/VRE UTI, s/p bilateral nephrostomies ( reversed) and bilateral ureteral stenting, presented to ED with worsening SOB and LE edema with fluid weeping from skin of LEs. SpO2 reportedly in 70s at [place], here in 90s. 1. Acute Respiratory Distress secondary to Acute on Chronic Diastolic CHF/R sided HF - initially requiring BiPAP, now comfortable on [place]. Echo 08/03 - EF 60%, Pulmonary HTN, small pericardial effusion, repeat Echo pending. Elevated BNP, CXR - new congestive changes LE Duplex neg for DVT. IV Lasix diuresis I/Os, Daily weights Continue BB, ACEI, Aldactone. 2. UTI, presmed based on positive UA. Symptomatic - dysuria, hematuria Aguayo insitu - clear urine Hx ESBL/VRE Afebrile, hemodynamically Stable. Given IV Zosyn in ED - switched to Meropenem/Linezolid by ID pending Urine Cx results. 3. CRF sec to COPD/Pulmonary Sarcoid Stable, no evidence of acute exacerbation. Continue supplemental O2 via NC Continue Prednisone, Symbicort, DoNeb PRN. 4. HTN - continue Atenolol, Lisinopril, Spironolactone. 5. HLD - Continue Atorvastatin 6. Atrial Fibrillation Continue BB, ASA. Not on AC due to Anemia apparently. cardiology consulted for further recommendations. 7. Hypomagnesemia/hypokalemia - repleted. 8. Microcytic Anemia, appears chronic but H/H on low side at 7.7/23.7. Will send iron studies and start ferrous Sulfate supplementation pending further work -up as out-patient. No evidence of acute blood loss. DVT Px - Heparin SQ GI Px -PPI CODE SATUS: DNR/DNI Visit type - Emergency Visit Emergency Visit: Yes ED Registration Date: 05/19/19 Care time: The patient presented to the Emergency Department on the above date and was hospitalized for further evaluation of their emergent condition. - New Patient This patient is new to me today: Yes Date on this admission: 05/21/19 - Critical Care Critical Care patient: No - Discharge Referral Referred to [facility] Med [facility] No
[2019-05-20] MEDS: ACETAMINOPHEN 325 MG TABLET (FP) PO PRN (16:04)
[2019-05-20] MEDS: FUROSEMIDE 40 MG/4 ML INJECTABLE VIAL IVPUSH SCH (16:04)
[2019-05-20] MEDS: FERROUS SO4 325 MG TABLET (FP) PO SCH (17:26)
[2019-05-20] MEDS ORDERED: MEROPENEM 1 GM VIAL (RESTRICTED TO ID) IVPB ONE (21:45)
[2019-05-20] MEDS ORDERED: DEXTROSE 5%-WATER 100 ML IVPB ONE (21:46)
[2019-05-20] MEDS: ATORVASTATIN CA 20 MG TABLET (FP) PO SCH (22:22)
[2019-05-20] MEDS: HEPARIN NA (PORCINE) 5,000 UNITS/ML 1ML VIAL SQ SCH (22:22)
[2019-05-21] MEDS: ACETAMINOPHEN 325 MG TABLET (FP) PO PRN (05:34)
[2019-05-21] MEDS: FUROSEMIDE 40 MG/4 ML INJECTABLE VIAL IVPUSH SCH (05:35)
[2019-05-21] MEDS: FERROUS SO4 325 MG TABLET (FP) PO SCH ×2 (08:22→16:49)
[2019-05-21] MEDS ORDERED: MEROPENEM 1 GM VIAL (RESTRICTED TO ID) IVPB ONE ×2 (09:15→22:13)
[2019-05-21] MEDS ORDERED: DEXTROSE 5%-WATER 100 ML IVPB ONE ×2 (09:15→22:13)
--- NOTE | 2019-05-21 09:56 | PN ---
Progress Note, Physician Chief Complaint: Now readmitted with recurrent RH failure/edema, HFpEF, elevated BNP with UTI History of Present Illness: no more sob. no cp. no palpitations, leg swelling no cigs - Current Medication List Current Medications: Active Medications Acetaminophen (Tylenol -) 650 mg PO Q6H PRN PRN Reason: PAIN 1-3 Last Admin: 05/21/19 05:34 Dose: 650 mg Albuterol/Ipratropium (Duoneb -) 1 amp NEB Q6H PRN PRN Reason: SHORTNESS OF BREATH Last Admin: 05/20/19 12:44 Dose: 1 amp Aspirin (Ecotrin -) 81 mg PO DAILY [facility] Last Admin: 05/20/19 10:50 Dose: 81 mg Atenolol (Tenormin -) 50 mg PO DAILY [facility] Last Admin: 05/20/19 10:50 Dose: 50 mg Atorvastatin Calcium (Lipitor -) 20 mg PO HS [facility] Last Admin: 05/20/19 22:22 Dose: 20 mg Budesonide/Formoterol Fumarate (Symbicort 160/4.5mcg -) 2 puff IH BID [facility] Last Admin: 05/20/19 23:04 Dose: 2 puff Ferrous Sulfate (Feosol -) 325 mg PO BIDWM [facility] Last Admin: 05/21/19 08:22 Dose: 325 mg Furosemide (Lasix Injection -) 40 mg IVPUSH BID@0600,1400 [facility] Last Admin: 05/21/19 05:35 Dose: 40 mg Heparin Sodium (Porcine) (Heparin -) 5,000 unit SQ BID [facility] Last Admin: 05/20/19 22:22 Dose: 5,000 unit Linezolid (Zyvox 600 Mg Premix Bag (Restricted To Id) -) 600 mg in 300 mls @ 300 mls/hr IVPB BID [facility]; Protocol Last Admin: 05/20/19 22:22 Dose: 300 mls/hr Meropenem 1 gm/ Dextrose 100 mls @ 0 mls/hr IVPB BID [facility] Last Admin: 05/20/19 22:23 Dose: 100 mls/hr Lisinopril (Prinivil) 5 mg PO DAILY [facility] Last Admin: 05/20/19 10:50 Dose: 5 mg Prednisone (Deltasone -) 5 mg PO DAILY [facility] Last Admin: 05/20/19 10:50 Dose: 5 mg Spironolactone (Aldactone -) 25 mg PO DAILY [facility] Last Admin: 05/20/19 10:50 Dose: 25 mg - Objective Vital Signs: Vital Signs Temperature 98.1 F 05/21/19 06:00 Pulse Rate 85 05/21/19 06:00 Respiratory Rate 18 05/21/19 06:00 Blood Pressure 104/58 L 05/21/19 06:00 O2 Sat by Pulse Oximetry (%) 98 05/21/19 07:47 Constitutional: Yes: No Distress, Calm Eyes: No: Sclera Icterus HENT: No: Nasal Congestion Cardiovascular: Yes: Pulse Irregular, S1, S2, Other (PMI non diplaced). No: Gallop, Murmur Respiratory: Yes: CTA Bilaterally, Wheezes. No: Accessory Muscle Use, Rales Gastrointestinal: Yes: Normal Bowel Sounds, Soft. No: Tenderness Musculoskeletal: Yes: Other (No kyphosis) Extremities: No: Cold, Cyanosis Edema: No Integumentary: No: Jaundice Neurological: Yes: Alert, Oriented (x3) Psychiatric: No: Agitated Labs: INR, PTT INR 1.18 (0.83-1.09) H 05/19/19 16:45 Assessment/Plan Echo 05/03: nl LVEF. mild RVE, mild-mod RV hypo. L/NEENA. mod MR/TR. RVSP at least 88 mmHg Echo 03/2017: Mild conc lvh. nl lv/rv size/fn, mod ronnie, mod mr, mod tr, rvsp 40- 50 EKG: afib rate okay, no ischemic changes CXR mild congestive changes Echo 07/2018 nl LV function, LA mod/severely dilated. RA mod dilated. Mod MR. Mod TR. RVSP elevated at 74 mmHG. tele: AF, HR good Assessment/Plan 81F h/o afib, CHF, COPD (on home O2 2L), HTN, pulm HTN, hematuria s/p b/l perc nephrostomy sent from [place] for chest tightness, shortness of breath, UTI acute on chronic diastolic HF exacerbation, pulm sarcoid, advanced COPD, cor pulmonale with RV failure, history of chronic hypoxemic/hypercapneic resp failure: -baseline BNP 1K-10K range -Lasix 40mg IV BID effective diuresis on prior admits, plus po spironolactone-- sent home on lasix 40 po qd last admit -cont lasix 40 iv bid for now -wheezes heard--BDs per pulm afib: - HR control good--cont atenolol - As per prior admission in 12/2018, holding eliquis for hx of severe hematuria, anemia - cont aspirin UTI -As per ID presumed underlying cad, prior type II NSTEMI 2018 (sec to hypotensive episode): -deferred invasive CAD mgmt approach given poor functional status with competing mortality limitations from severe lung dz, low likelihood to improve prognosis, and risks > benefits (including bleeding, AIN) -treated with ASA, statin, BB -chronic non-cardiac CP on mult prior admits--sec to acute flare of pulm sarcoid vs acute cor pulmonale exacerbations. similar presentation currently with no ischemic changes on ekg, trop neg. -same plan as prior, cont prior CAD med regimen
[2019-05-21 10:11] LABS: CHOLESTEROL 126 mg/dL (50-200); HDL CHOLESTEROL 69 mg/dL (40-60); IRON SERUM 51 ug/dL (50-175); TRIGLYCERIDES 43 mg/dL (0-150)
[2019-05-21 10:12] LABS: BLOOD UREA NITROGEN 16.6 mg/dL (7-18); CALCIUM 8.8 mg/dL (8.5-10.1); MAGNESIUM 2.1 mg/dL (1.8-2.4); PHOSPHOROUS 2.6 mg/dL (2.5-4.9); POTASSIUM 3.3 mmol/L (3.5-5.1)
[2019-05-21] MEDS: MEROPENEM 1 GM in DEXTROSE 5%-WATER 100 ML IVPB SCH ×2 (10:17→22:25)
[2019-05-21] MEDS: ASPIRIN COATED 81 MG TABLET.EC PO SCH (10:21)
[2019-05-21] MEDS: ATENOLOL 50 MG TABLET (FP) PO SCH (10:22)
[2019-05-21] MEDS: BUDESONIDE/FORMETEROL FUMARATE 160/4.5 mcg INHALER IH SCH ×2 (10:22→22:24)
[2019-05-21] MEDS: predniSONE 5 MG TABLET (UD) PO SCH (10:22)
[2019-05-21] MEDS: LISINOPRIL 5 MG TABLET (FP) PO SCH (10:22)
[2019-05-21] MEDS: SPIRONOLACTONE 25 MG TABLET (FP) PO SCH (10:22)
[2019-05-21] MEDS: HEPARIN NA (PORCINE) 5,000 UNITS/ML 1ML VIAL SQ SCH ×2 (10:22→22:43)
[2019-05-21 10:40] LABS: BASO % 0.8 % (0-2.0); EOS % 1.3 % (0-4.5); HEMATOCRIT 32.2 % (32.4-45.2); HEMOGLOBIN 9.6 GM/dL (10.7-15.3); LYMPH % 32.8 % (8-40); MCH 21.4 pg (25.7-33.7); MCHC 29.9 g/dl (32.0-36.0); MEAN CELL VOLUME 71.6 fl (80-96); MEAN PLT VOLUME 9.9 fl (7.5-11.1); MONO % 14.5 % (3.8-10.2); NEUT % 50.6 % (42.8-82.8); PLATELET COUNT 141 K/MM3 (134-434); RBC 4.49 M/mm3 (3.60-5.2); RDW 16.7 % (11.6-15.6); WHITE BLOOD COUNT 4.3 K/mm3 (4.0-10.0)
--- NOTE | 2019-05-21 10:52 | PN ---
Physical Exam: SUBJECTIVE: Patient seen and examined at bedside. Pt is upset about not feeling like herself. pt endorses b/l leg pain OBJECTIVE: Vital Signs Period Temp Pulse Resp BP Sys/Garza Pulse Ox Last 24 Hr 97.6 F-98.1 F 75-85 18-25 96-124/44-65 92-99 GENERAL: The patient is awake, alert, and fully oriented, in no acute distress. LUNGS: Breath sounds equal, clear to auscultation bilaterally, no accessory muscle use. HEART: irregular rate and rhythm, S1, S2. systolic murmur ABDOMEN: Soft, nontender, nondistended, normoactive bowel sounds EXTREMITIES: 2+ pulses, warm, well-perfused, b/l LE pitting edema. SKIN: Warm, dry, normal turgor, no rashes or lesions noted Laboratory Results - last 24 hr 05/21/19 05/21/19 05/21/19 05:30 09:05 09:05 WBC 4.3 RBC 4.49 Hgb 9.6 L Hct 32.2 L MCV 71.6 L MCH 21.4 L MCHC 29.9 L RDW 16.7 H Plt Count 141 MPV 9.9 D Absolute Neuts (auto) 2.2 Neutrophils % 50.6 Lymphocytes % 32.8 Monocytes % 14.5 H Eosinophils % 1.3 Basophils % 0.8 Nucleated RBC % 0 Sodium Potassium Chloride Carbon Dioxide Anion Gap BUN Creatinine Est GFR (CKD-EPI)AfAm Est GFR (CKD-EPI)NonAf Random Glucose Hemoglobin A1c % 6.0 Calcium Phosphorus Magnesium Iron 51 Ferritin Triglycerides 43 Cholesterol 126 Total LDL Cholesterol 50 HDL Cholesterol 69 H 05/21/19 09:05 WBC RBC Hgb Hct MCV MCH MCHC RDW Plt Count MPV Absolute Neuts (auto) Neutrophils % Lymphocytes % Monocytes % Eosinophils % Basophils % Nucleated RBC % Sodium 139 Potassium 3.3 L Chloride 93 L Carbon Dioxide 44 H Anion Gap 2 L BUN 16.6 Creatinine 1.0 Est GFR (CKD-EPI)AfAm 57.84 Est GFR (CKD-EPI)NonAf 49.91 Random Glucose 129 H Hemoglobin A1c % Calcium 8.8 Phosphorus 2.6 Magnesium 2.1 Iron Ferritin 59.1 Triglycerides Cholesterol Total LDL Cholesterol HDL Cholesterol Current Medications Acetaminophen (Tylenol -) 650 mg PO Q6H PRN PRN Reason: PAIN 1-3 Last Admin: 05/21/19 05:34 Dose: 650 mg Albuterol/Ipratropium (Duoneb -) 1 amp NEB Q6H PRN PRN Reason: SHORTNESS OF BREATH Last Admin: 05/20/19 12:44 Dose: 1 amp Aspirin (Ecotrin -) 81 mg PO DAILY [facility] Last Admin: 05/21/19 10:21 Dose: 81 mg Atenolol (Tenormin -) 50 mg PO DAILY [facility] Last Admin: 05/21/19 10:22 Dose: 50 mg Atorvastatin Calcium (Lipitor -) 20 mg PO HS [facility] Last Admin: 05/20/19 22:22 Dose: 20 mg Budesonide/Formoterol Fumarate (Symbicort 160/4.5mcg -) 2 puff IH BID [facility] Last Admin: 05/21/19 10:22 Dose: 2 puff Ferrous Sulfate (Feosol -) 325 mg PO BIDWM [facility] Last Admin: 05/21/19 08:22 Dose: 325 mg Furosemide (Lasix Injection -) 40 mg IVPUSH BID@0600,1400 [facility] Last Admin: 05/21/19 05:35 Dose: 40 mg Heparin Sodium (Porcine) (Heparin -) 5,000 unit SQ BID [facility] Last Admin: 05/21/19 10:22 Dose: 5,000 unit Linezolid (Zyvox 600 Mg Premix Bag (Restricted To Id) -) 600 mg in 300 mls @ 300 mls/hr IVPB BID [facility]; Protocol Last Admin: 05/20/19 22:22 Dose: 300 mls/hr Meropenem 1 gm/ Dextrose 100 mls @ 0 mls/hr IVPB BID [facility] Last Admin: 05/21/19 10:17 Dose: 100 mls/hr Lisinopril (Prinivil) 5 mg PO DAILY [facility] Last Admin: 05/21/19 10:22 Dose: 5 mg Prednisone (Deltasone -) 5 mg PO DAILY [facility] Last Admin: 05/21/19 10:22 Dose: 5 mg Spironolactone (Aldactone -) 25 mg PO DAILY [facility] Last Admin: 05/21/19 10:22 Dose: 25 mg ASSESSMENT/PLAN: 88 yo F PMH of COPD (on 2-3L at [place]), HTN, Afib, HLD, Pulmonary HTN, HFpEF, cor pulmonale with RV failure presented to ED with worsening lower leg pain and edema.pt is admitted for acute on chronic HFpEF. Pt also found to have a UTI, prior admission grew ESBL Lower Leg edema likely 2/2 Acute on Chronic HFpEF -BNP: 4389 -c/w IV lasix 80 BID -Echo 08/03: reviewed EF 60-65%, R heart failure , awaiting repeat Echo -monitor I/Os -daily weights -d/c rodriguez -cardio recs appreciated UTI -pt s/p B/L stents , last admission 02/02 for ESBL UTI tx w/ ertapenem and linezolid. -pt endorses hematuria, dysuria on admission, today rodriguez shows clear urine -(+)UA -pending UCx -pending BCx -Empiric Zosyn in ED -c/w linezolid and meropenem as per ID recs -ID recs appreciated COPD -Nasal cannula 3L O2. goal O2 sat 93-95% -Symbicort daily -Duoneb nebulizer PRN -Prednisone 5mg PO daily HTN -Lisinopril 5mg PO daily -Spironolactone 25mg PO daily -c/w Atenolol HLD -Atorvastatin 20mg PO HS -fasting lipid panel reviewed. -A1C 6% Afib -continue tele monitor -consider restarting eliquis, hematuria resolved -c/w atenolol, asa Microcytic Anemia -no evidence of acute blood loss -likely chronic -pending Fe studies -Ferrous sulfate -f/u outpt F/E/N -Follow BMP, replete as necessary. Hypokalemia -repleted, continue to monitor K Hypomagnesemia -monitor Mg -repleted -Sodium controlled controlled diet Disposition: continue monitoring until pt is medically optimized. Visit type - Emergency Visit Emergency Visit: No - New Patient This patient is new to me today: No - Critical Care Critical Care patient: No - Discharge Referral Referred to [facility] No ATTENDING PHYSICIAN STATEMENT I saw and evaluated the patient. I reviewed the resident's note and discussed the case with the resident. I agree with the resident's findings and plan as documented. SUBJECTIVE: OBJECTIVE: ASSESSMENT AND PLAN:
[2019-05-21] MEDS ORDERED: POTASSIUM CHLORIDE TABS 20 MEQ TABLET.ER (FP) PO ONE (11:10)
--- NOTE | 2019-05-21 11:16 | PN ---
Teaching Attending Note Name of Resident: Maci Boyer ATTENDING PHYSICIAN STATEMENT I saw and evaluated the patient. I reviewed the resident's note and discussed the case with the resident. I agree with the resident's findings and plan as documented. SUBJECTIVE: Complains of feeling generally unlike her usual self. No chest pain/ palpitations. SOB much improved. No cough/sputum/hemoptysis. No fever/chills. OBJECTIVE: Afebrile, Hemodynamically Stable. Last Vital Signs Temp Pulse Resp BP Pulse Ox 98.1 F 85 18 104/58 L 98 05/21/19 06:00 05/21/19 06:00 05/21/19 06:00 05/21/19 06:00 05/21/19 07:47 Heart - S1, S2, soft SM Lungs - basal crackles Abdomen - soft, non-tender. Bowel Sounds normal. Extremities - LE Edema ++ Neuro - AAO x 3. Tone/Power normal all extremities. Laboratory Results - last 24 hr 05/21/19 05/21/19 05/21/19 05:30 09:05 09:05 WBC 4.3 RBC 4.49 Hgb 9.6 L Hct 32.2 L MCV 71.6 L MCH 21.4 L MCHC 29.9 L RDW 16.7 H Plt Count 141 MPV 9.9 D Absolute Neuts (auto) 2.2 Neutrophils % 50.6 Lymphocytes % 32.8 Monocytes % 14.5 H Eosinophils % 1.3 Basophils % 0.8 Nucleated RBC % 0 Sodium Potassium Chloride Carbon Dioxide Anion Gap BUN Creatinine Est GFR (CKD-EPI)AfAm Est GFR (CKD-EPI)NonAf Random Glucose Hemoglobin A1c % 6.0 Calcium Phosphorus Magnesium Iron 51 Ferritin Triglycerides 43 Cholesterol 126 Total LDL Cholesterol 50 HDL Cholesterol 69 H 05/21/19 09:05 WBC RBC Hgb Hct MCV MCH MCHC RDW Plt Count MPV Absolute Neuts (auto) Neutrophils % Lymphocytes % Monocytes % Eosinophils % Basophils % Nucleated RBC % Sodium 139 Potassium 3.3 L Chloride 93 L Carbon Dioxide 44 H Anion Gap 2 L BUN 16.6 Creatinine 1.0 Est GFR (CKD-EPI)AfAm 57.84 Est GFR (CKD-EPI)NonAf 49.91 Random Glucose 129 H Hemoglobin A1c % Calcium 8.8 Phosphorus 2.6 Magnesium 2.1 Iron Ferritin 59.1 Triglycerides Cholesterol Total LDL Cholesterol HDL Cholesterol Current Medications Generic Name Dose Route Start Last Admin Trade Name Khang PRN Reason Stop Dose Admin Acetaminophen 650 mg 05/20/19 07:57 05/21/19 05:34 Tylenol - PO 650 mg Q6H PRN Administration PAIN 1-3 Albuterol/Ipratropium 1 amp 05/19/19 20:57 05/20/19 12:44 Duoneb - NEB 1 amp Q6H PRN Administration SHORTNESS OF BREATH Aspirin 81 mg 05/20/19 10:00 05/21/19 10:21 Ecotrin - PO 81 mg DAILY [facility] Administration Atenolol 50 mg 05/20/19 10:00 05/21/19 10:22 Tenormin - PO 50 mg DAILY [facility] Administration Atorvastatin Calcium 20 mg 05/19/19 22:00 05/20/19 22:22 Lipitor - PO 20 mg HS LISA Administration Budesonide/Formoterol Fumarate 2 puff 05/19/19 22:00 05/21/19 10:22 Symbicort 160/4.5mcg - IH 2 puff BID LISA Administration Ferrous Sulfate 325 mg 05/20/19 17:30 05/21/19 08:22 Feosol - PO 325 mg BIDWM [facility] Administration Furosemide 40 mg 05/20/19 14:00 05/21/19 05:35 Lasix Injection - IVPUSH 40 mg BID@0600,1400 [facility] Administration Heparin Sodium (Porcine) 5,000 unit 05/20/19 22:00 05/21/19 10:22 Heparin - SQ 5,000 unit BID [facility] Administration Linezolid 600 mg in 300 mls @ 300 mls/hr 05/20/19 22:00 05/20/19 22:22 Zyvox 600 Mg Premix Bag (Restricted To Id) - IVPB 300 mls/hr BID [facility] Administration Protocol Meropenem 1 gm/ Dextrose 100 mls @ 0 mls/hr 05/20/19 11:45 05/21/19 10:17 IVPB 100 mls/hr BID [facility] Administration As Directed Lisinopril 5 mg 05/20/19 10:00 05/21/19 10:22 Prinivil PO 5 mg DAILY [facility] Administration Prednisone 5 mg 05/20/19 10:00 05/21/19 10:22 Deltasone - PO 5 mg DAILY [facility] Administration Spironolactone 25 mg 05/20/19 10:00 05/21/19 10:22 Aldactone - PO 25 mg DAILY [facility] Administration Home Medications Medication Instructions Recorded Acetaminophen [Tylenol] 650 mg PO Q8H PRN 01/21/19 Atenolol [Tenormin] 50 mg PO DAILY 01/21/19 Atorvastatin Calcium [Lipitor] 20 mg PO HS 01/21/19 Budesonide/Formeterol Fumarate 2 inh PO BID 01/21/19 [SYMBICORT 160/4.5mcg -] Furosemide [Lasix] 40 mg PO DAILY 01/21/19 Lisinopril [Prinivil] 5 mg PO DAILY 01/21/19 Omeprazole 20 mg PO DAILY 01/21/19 Prednisone 5 mg PO DAILY 01/21/19 Spironolactone [Aldactone] 25 mg .ROUTE DAILY 01/21/19 ASSESSMENT/PLAN 88 year old female with history of CRF sec to COPD (on 2-3L O2), Pulmonary Sarcoid, HTN, Atrial Fibrillation, HLD, Pulmonary HTN, Chronic Diastolic CHF, cor pulmonale with RV failure, Hx of ESBL/VRE UTI, s/p bilateral nephrostomies ( reversed) and bilateral ureteral stenting, presented to ED with worsening SOB and LE edema with fluid weeping from skin of LEs. SpO2 reportedly in 70s at [place], here in 90s. 1. Acute Respiratory Distress secondary to Acute on Chronic Diastolic CHF/R sided HF - initially requiring BiPAP, now comfortable on NC. Echo 08/03 - EF 60%, Pulmonary HTN, small pericardial effusion, repeat Echo pending. Elevated BNP, CXR - new congestive changes LE Duplex neg for DVT. IV Lasix diuresis ongoing I/Os, Daily weights Continue BB, ACEI, Aldactone. Repeat Echo pending. 2. UTI, presmed based on positive UA. Symptomatic - dysuria, hematuria Aguayo insitu - clear urine Hx ESBL/VRE UTI Afebrile, Hemodynamically Stable. Given IV Zosyn in ED - switched to Meropenem/Linezolid empirically by ID pending Urine Cx results. D/C Aguayo. 3. CRF sec to COPD/Pulmonary Sarcoid Stable, no evidence of acute exacerbation. Continue supplemental O2 via NC Continue Prednisone, Symbicort, DoNeb PRN. 4. HTN - continue Atenolol, Lisinopril, Spironolactone. 5. HLD - Continue Atorvastatin 6. Atrial Fibrillation Continue BB, ASA. Not on AC due to severe hematuria history/Anemia. Cardiology following. 7. Hypomagnesemia - resolved s/p repletion 8. Hypokalemia - recurrent, repleted. Continue to monitor while on Lasix IV. 9. Microcytic Anemia, appears chronic but H/H on low side at 9.6/32.2. Will send iron studies and start ferrous Sulfate supplementation pending Iron studies and further work-up as out-patient. No evidence of acute blood loss. DVT Px - Heparin SQ GI Px - PPI
[2019-05-21] MEDS: LINEZOLID 600 MG PREMIX BAG 600 MG/300 ML BAG IVPB SCH (11:51)
--- NOTE | 2019-05-21 12:20 | ECHO ---
Name: JAMILA OREILLY Exam:Adult Echocardiogram Study Date: 05/21/2019 07:38 AM Age: 88 yrs Reason For Study: chf exacerbation Height: 62 in Weight: 145 lb BSA: 1.7 m2 MMode/2D Measurements & Calculations RVDd: 3.7 cm Ao root diam: 3.9 cm IVSd: 0.91 cm LA dimension: 6.2 cm LVIDd: 4.1 cm ACS: 1.6 cm LVIDs: 2.3 cm LVPWd: 0.86 cm IVSs: 1.1 cm LVPWs: 1.1 cm EDV(Teich): 75.1 ml ESV(Teich): 18.4 ml Doppler Measurements & Calculations MV E max sohail: 120.4 cm/sec Ao V2 max: 112.5 cm/sec Ao max P.1 mmHg Ao V2 mean: 77.2 cm/sec Ao mean P.6 mmHg Ao V2 VTI: 22.0 cm MR max sohail: 394.0 cm/sec TR max sohail: 380.8 cm/sec MR max P.9 mmHg TR max P.2 mmHg Med Peak E' Sohail: 5.3 cm/sec Med E/e': 22.9 Lat Peak E' Sohail: 9.3 cm/sec Lat E/e': 12.9 Procedure A complete two-dimensional transthoracic echocardiogram was performed (2D, M-mode, Doppler and color flow Doppler). Left Ventricle The left ventricle is normal in size. Left ventricular systolic function is normal. Ejection Fraction = 65- 70%. No regional wall motion abnormalities noted. Right Ventricle The right ventricle is normal size. The right ventricular systolic function is normal. Atria The left atrium is severely dilated. The right atrium is severely dilated. Mitral Valve There is mild mitral annular calcification. There is mild mitral valve thickening. There is moderate mitral regurgitation. Tricuspid Valve The tricuspid valve is normal in structure and function. There is moderate tricuspid regurgitation. P ulmonary artery systolic pressure is at least 85 mmHg assuming RA pressure of 15 mmHg (dilated IVC with <50% c ollapse). Aortic Valve There is mild aortic sclerosis.;. No aortic regurgitation is present. Pulmonic Valve The pulmonic valve is not well visualized. Mild pulmonic valvular regurgitation. Great Vessels The aortic root is normal size. Pericardium/Pleura There is no pericardial effusion. Interpretation Summary The left ventricle is normal in size. Left ventricular systolic function is normal. No regional wall motion abnormalities noted. Ejection Fraction = 65-70%. The right ventricular systolic function is normal. The left atrium is severely dilated. The right atrium is severely dilated. There is mild mitral annular calcification. There is mild mitral valve thickening. There is moderate mitral regurgitation. There is moderate tricuspid regurgitation. Pulmonary artery systolic pressure is at least 85 mmHg assuming RA pressure of 15 mmHg (dilated IVC w ith <50% collapse) There is mild aortic sclerosis. Mild pulmonic valvular regurgitation. There is no pericardial effusion. When compared to study dated 08/14/18, pulmonary artery systolic pressure has increased Farhan Simms MD 05/21/2019 12:20 PM
[2019-05-21] MEDS: PANTOPRAZOLE 40 MG TABLET (FP) PO SCH (12:29)
--- NOTE | 2019-05-21 13:52 | PN ---
Progress Note, Physician History of Present Illness: stable no new issues - Current Medication List Current Medications: Active Medications Acetaminophen (Tylenol -) 650 mg PO Q6H PRN PRN Reason: PAIN 1-3 Last Admin: 05/21/19 05:34 Dose: 650 mg Albuterol/Ipratropium (Duoneb -) 1 amp NEB Q6H PRN PRN Reason: SHORTNESS OF BREATH Last Admin: 05/20/19 12:44 Dose: 1 amp Aspirin (Ecotrin -) 81 mg PO DAILY [facility] Last Admin: 05/21/19 10:21 Dose: 81 mg Atenolol (Tenormin -) 50 mg PO DAILY [facility] Last Admin: 05/21/19 10:22 Dose: 50 mg Atorvastatin Calcium (Lipitor -) 20 mg PO HS [facility] Last Admin: 05/20/19 22:22 Dose: 20 mg Budesonide/Formoterol Fumarate (Symbicort 160/4.5mcg -) 2 puff IH BID [facility] Last Admin: 05/21/19 10:22 Dose: 2 puff Ferrous Sulfate (Feosol -) 325 mg PO BIDWM [facility] Last Admin: 05/21/19 08:22 Dose: 325 mg Furosemide (Lasix Injection -) 40 mg IVPUSH DAILY [facility] Heparin Sodium (Porcine) (Heparin -) 5,000 unit SQ BID [facility] Last Admin: 05/21/19 10:22 Dose: 5,000 unit Meropenem 1 gm/ Dextrose 100 mls @ 0 mls/hr IVPB BID [facility] Last Admin: 05/21/19 10:17 Dose: 100 mls/hr Lisinopril (Prinivil) 5 mg PO DAILY [facility] Last Admin: 05/21/19 10:22 Dose: 5 mg Pantoprazole Sodium (Protonix -) 40 mg PO DAILY [facility] Last Admin: 05/21/19 12:29 Dose: 40 mg Prednisone (Deltasone -) 5 mg PO DAILY [facility] Last Admin: 05/21/19 10:22 Dose: 5 mg Spironolactone (Aldactone -) 25 mg PO DAILY [facility] Last Admin: 05/21/19 10:22 Dose: 25 mg - Objective Vital Signs: Vital Signs Temperature 98 F 05/21/19 10:00 Pulse Rate 80 05/21/19 10:00 Respiratory Rate 20 05/21/19 10:00 Blood Pressure 107/58 L 05/21/19 10:00 O2 Sat by Pulse Oximetry (%) 96 05/21/19 09:00 Constitutional: Yes: Calm, Mild Distress Cardiovascular: Yes: S1, S2 Respiratory: Yes: Regular, CTA Bilaterally, On Nasal O2 Gastrointestinal: Yes: Normal Bowel Sounds, Soft Musculoskeletal: Yes: WNL Extremities: Yes: WNL Neurological: Yes: Alert, Oriented Psychiatric: Yes: Alert, Oriented Labs: CBC, BMP 05/21/19 09:05 05/21/19 09:05 INR, PTT INR 1.18 (0.83-1.09) H 05/19/19 16:45 Assessment/Plan Problem List - Problems (1) UTI (urinary tract infection) Code(s): N39.0 - URINARY TRACT INFECTION, SITE NOT SPECIFIED Qualifiers: Urinary tract infection type: site unspecified Hematuria presence: with hematuria Qualified Code(s): N39.0 - Urinary tract infection, site not specified; R31.9 - Hematuria, unspecified (2) CHF (congestive heart failure) Code(s): I50.9 - HEART FAILURE, UNSPECIFIED Qualifiers: Heart failure type: unspecified Heart failure chronicity: unspecified Qualified Code(s): I50.9 - Heart failure, unspecified (3) Atrial fibrillation Code(s): I48.91 - UNSPECIFIED ATRIAL FIBRILLATION Qualifiers: Atrial fibrillation type: permanent Qualified Code(s): I48.2 - Chronic atrial fibrillation (4) COPD (chronic obstructive pulmonary disease) Code(s): J44.9 - CHRONIC OBSTRUCTIVE PULMONARY DISEASE, UNSPECIFIED Qualifiers: COPD type: unspecified COPD Qualified Code(s): J44.9 - Chronic obstructive pulmonary disease, unspecified (5) Coronary artery disease Code(s): I25.10 - ATHSCL HEART DISEASE OF [place] CORONARY ARTERY W/O ANG PCTRS Qualifiers: Coronary Disease-Associated Artery/Lesion type: [place] artery [place] vs. transplanted heart: [place] heart Associated angina: without angina Qualified Code(s): I25.10 - Atherosclerotic heart disease of [place] coronary artery without angina pectoris (6) Hypercholesterolemia Code(s): E78.00 - PURE HYPERCHOLESTEROLEMIA, UNSPECIFIED (7) Hypertension Code(s): I10 - ESSENTIAL (PRIMARY) HYPERTENSION Qualifiers: Hypertension type: essential hypertension Qualified Code(s): I10 - Essential (primary) hypertension (8) Pulmonary HTN Code(s): I27.20 - PULMONARY HYPERTENSION, UNSPECIFIED (9) Sarcoidosis Code(s): D86.9 - SARCOIDOSIS, UNSPECIFIED (10) SANAM (acute kidney injury) Code(s): N17.9 - ACUTE KIDNEY FAILURE, UNSPECIFIED (11) Hypokalemia Code(s): E87.6 - HYPOKALEMIA (12) Hypoxia Code(s): R09.02 - HYPOXEMIA (13) Shortness of breath at rest Code(s): R06.02 - SHORTNESS OF BREATH Assessment/Plan 88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 Hypoxic, tachycardic, with evidence of pulmonary congestion and U/A suggestive of UTI Complicated UTI/ b/l stents (Hx of ESBL+/VRE) CHF Exacerbation Acute respiratory failure COPD Pulm HTN Sarcoidosis CAD AFIB Anemia plan will stop zyox continue elian await for finalization of the organism rest as per the team
[2019-05-21] MEDS: ATORVASTATIN CA 20 MG TABLET (FP) PO SCH (22:24)
[2019-05-21 23:05] LABS: BASO % 0.9 % (0-2.0); EOS % 1.1 % (0-4.5); HEMATOCRIT 31.1 % (32.4-45.2); HEMOGLOBIN 9.3 GM/dL (10.7-15.3); LYMPH % 26.4 % (8-40); MCH 21.4 pg (25.7-33.7); MCHC 29.9 g/dl (32.0-36.0); MEAN CELL VOLUME 71.7 fl (80-96); MEAN PLT VOLUME 9.3 fl (7.5-11.1); MONO % 14.3 % (3.8-10.2); NEUT % 57.3 % (42.8-82.8); PLATELET COUNT 129 K/MM3 (134-434); RBC 4.34 M/mm3 (3.60-5.2); RDW 16.4 % (11.6-15.6); WHITE BLOOD COUNT 4.4 K/mm3 (4.0-10.0)
[2019-05-22 08:20] LABS: BLOOD UREA NITROGEN 16.1 mg/dL (7-18); CALCIUM 9.1 mg/dL (8.5-10.1); CREATININE 0.9 mg/dL (0.55-1.3); MAGNESIUM 2.2 mg/dL (1.8-2.4); PHOSPHOROUS 2.9 mg/dL (2.5-4.9); POTASSIUM 4.4 mmol/L (3.5-5.1)
[2019-05-22] MEDS ORDERED: MEROPENEM 1 GM VIAL (RESTRICTED TO ID) IVPB ONE (08:34)
[2019-05-22] MEDS ORDERED: DEXTROSE 5%-WATER 100 ML IVPB ONE (08:34)
[2019-05-22] MEDS: FERROUS SO4 325 MG TABLET (FP) PO SCH ×2 (08:54→17:38)
[2019-05-22 08:55] LABS: WHITE BLOOD COUNT 4.5 K/mm3 (4.0-10.0)
[2019-05-22] MEDS: predniSONE 5 MG TABLET (UD) PO SCH (09:02)
[2019-05-22] MEDS: ASPIRIN COATED 81 MG TABLET.EC PO SCH (09:03)
[2019-05-22] MEDS: PANTOPRAZOLE 40 MG TABLET (FP) PO SCH (09:04)
[2019-05-22 09:05] LABS: HEMATOCRIT 32.5 % (32.4-45.2); MCH 21.4 pg (25.7-33.7); MEAN CELL VOLUME 71.4 fl (80-96); MEAN PLT VOLUME 9.9 fl (7.5-11.1); PLATELET COUNT 144 K/MM3 (134-434); RBC 4.55 M/mm3 (3.60-5.2); RDW 16.6 % (11.6-15.6)
[2019-05-22] MEDS: MEROPENEM 1 GM in DEXTROSE 5%-WATER 100 ML IVPB SCH (09:05)
[2019-05-22] MEDS: BUDESONIDE/FORMETEROL FUMARATE 160/4.5 mcg INHALER IH SCH ×2 (09:06→21:38)
[2019-05-22 09:10] LABS: HEMOGLOBIN 9.7 GM/dL (10.7-15.3)
[2019-05-22] MEDS: FUROSEMIDE 40 MG/4 ML INJECTABLE VIAL IVPUSH SCH (10:37)
[2019-05-22] MEDS: SPIRONOLACTONE 25 MG TABLET (FP) PO SCH (10:38)
[2019-05-22] MEDS: LISINOPRIL 5 MG TABLET (FP) PO SCH (10:38)
[2019-05-22] MEDS: ATENOLOL 50 MG TABLET (FP) PO SCH (10:38)
[2019-05-22] MEDS: HEPARIN NA (PORCINE) 5,000 UNITS/ML 1ML VIAL SQ SCH ×2 (12:29→21:37)
--- NOTE | 2019-05-22 12:51 | PN ---
Progress Note, Physician - Current Medication List Current Medications: Active Medications Acetaminophen (Tylenol -) 650 mg PO Q6H PRN PRN Reason: PAIN 1-3 Last Admin: 05/21/19 05:34 Dose: 650 mg Albuterol/Ipratropium (Duoneb -) 1 amp NEB Q6H PRN PRN Reason: SHORTNESS OF BREATH Last Admin: 05/20/19 12:44 Dose: 1 amp Aspirin (Ecotrin -) 81 mg PO DAILY [facility] Last Admin: 05/22/19 09:03 Dose: 81 mg Atenolol (Tenormin -) 50 mg PO DAILY [facility] Last Admin: 05/22/19 10:38 Dose: 50 mg Atorvastatin Calcium (Lipitor -) 20 mg PO HS [facility] Last Admin: 05/21/19 22:24 Dose: 20 mg Budesonide/Formoterol Fumarate (Symbicort 160/4.5mcg -) 2 puff IH BID [facility] Last Admin: 05/22/19 09:06 Dose: 2 puff Ferrous Sulfate (Feosol -) 325 mg PO BIDWM [facility] Last Admin: 05/22/19 08:54 Dose: 325 mg Furosemide (Lasix Injection -) 40 mg IVPUSH DAILY [facility] Last Admin: 05/22/19 10:37 Dose: 40 mg Heparin Sodium (Porcine) (Heparin -) 5,000 unit SQ BID [facility] Last Admin: 05/22/19 12:29 Dose: 5,000 unit Meropenem 1 gm/ Dextrose 100 mls @ 0 mls/hr IVPB BID [facility] Last Admin: 05/22/19 09:05 Dose: 100 mls/hr Lisinopril (Prinivil) 5 mg PO DAILY [facility] Last Admin: 05/22/19 10:38 Dose: 5 mg Pantoprazole Sodium (Protonix -) 40 mg PO DAILY [facility] Last Admin: 05/22/19 09:04 Dose: 40 mg Prednisone (Deltasone -) 5 mg PO DAILY [facility] Last Admin: 05/22/19 09:02 Dose: 5 mg Spironolactone (Aldactone -) 25 mg PO DAILY [facility] Last Admin: 05/22/19 10:38 Dose: 25 mg - Objective Vital Signs: Vital Signs Temperature 98.6 F 05/22/19 06:00 Pulse Rate 89 05/22/19 06:00 Respiratory Rate 20 05/22/19 06:00 Blood Pressure 101/61 05/22/19 06:00 O2 Sat by Pulse Oximetry (%) 99 05/22/19 09:00 Labs: CBC, BMP 05/22/19 06:45 05/22/19 06:45 INR, PTT INR 1.18 (0.83-1.09) H 05/19/19 16:45
[2019-05-22] MEDS ORDERED: LOPERAMIDE HCL 2 MG CAPSULE PO ONE (13:20)
[2019-05-22] MEDS: LACTOBACILLUS ACIDOPHILUS 1 TABLET PO SCH (13:46)
--- NOTE | 2019-05-22 13:48 | PN ---
Teaching Attending Note Name of Resident: Maci Boyer ATTENDING PHYSICIAN STATEMENT I saw and evaluated the patient. I reviewed the resident's note and discussed the case with the resident. I agree with the resident's findings and plan as documented. SUBJECTIVE:c/o diarrhea that started yesterday. 2 loose BM yesterday. none yet today. no assoc abdominal pain. states leg swelling improved but still worse than baseline. denies Cp, SOB, fever, chills, N/V/C OBJECTIVE: Last Vital Signs Temp Pulse Resp BP Pulse Ox 98.6 F 89 20 101/61 99 05/22/19 06:00 05/22/19 06:00 05/22/19 06:00 05/22/19 06:00 05/22/19 09:00 General NAD CV S1 S2 RRR no murmur/rub/gallop Lungs CTA B/L anteriorly Abdomen soft NT/ND normoactive BS Extremities 2+ pitting edema ASSESSMENT AND PLAN: 88 year old female with history of CRF sec to COPD (on 2-3L O2), Pulmonary Sarcoid, HTN, Atrial Fibrillation, HLD, Pulmonary HTN, Chronic Diastolic CHF, cor pulmonale with RV failure, Hx of ESBL/VRE UTI, s/p bilateral nephrostomies ( reversed) and bilateral ureteral stenting, presented to ED with worsening SOB and LE edema with fluid weeping from skin of LEs. SpO2 reportedly in 70s at [place], here in 90s. 1. Acute Respiratory Distress secondary to Acute on Chronic Diastolic CHF/R sided HF - initially requiring BiPAP, now comfortable on NC. saturating 97% on 3L NC which is home dose. repeat Echo showing no pericardial effusion. on pred 5mg for sarcoid. cont current treatment 2. Diarrhea- likely abx assoc as just developed yesterday with no low suspicion for cdiff. will start bacid. 3. Klebsiella UTI- mostly sensitive. will switch meropenem to ceftriaxone. ID on board 4. Acute on chronic diastolic CHF- clinically improved. cont with lasix IV. daily weights. monitor electrolytes. 5. HTN- controlled. 6. COPD- on pulmonary sarcoid. on pred 5mg. cont 7. Dyslipidemia - Continue Atorvastatin 8. Atrial Fibrillation- not on anticoag due to hx of hematuria. cont current treatment. 9. Hypomagnesemia - resolved s/p repletion 10. Microcytic Anemia,-hgb stable. no signs of bleeding. no indication for transfusion 11. DVT Px - Heparin SQ 12. does not want to go to rehab but will consider. PT eval
--- NOTE | 2019-05-22 14:33 | PN ---
Physical Exam: SUBJECTIVE: Patient seen and examined at bedside. Pt states that her leg pain is improving but they are still more edematous than baseline. OBJECTIVE: Vital Signs Period Temp Pulse Resp BP Sys/Garza Pulse Ox Last 24 Hr 97.8 F-99.1 F 67-89 18-20 91-119/46-63 99-100 GENERAL: The patient is awake, alert, and fully oriented, in no acute distress. LUNGS: Breath sounds equal, clear to auscultation bilaterally, no wheezes, no crackles, no accessory muscle use. HEART: irregular rate and rhythm, S1, S2 , + murmur ABDOMEN: Soft, mildly tender LLQ RLQ, nondistended, normoactive bowel sounds EXTREMITIES: 2+ pulses, warm, well-perfused, B/L LE edema SKIN: Warm, dry, normal turgor, no rashes or lesions noted Laboratory Results - last 24 hr 05/21/19 05/22/19 05/22/19 22:39 06:45 06:45 WBC 4.4 4.5 RBC 4.34 4.55 Hgb 9.3 L 9.7 L Hct 31.1 L 32.5 MCV 71.7 L 71.4 L MCH 21.4 L 21.4 L MCHC 29.9 L 30.0 L RDW 16.4 H 16.6 H Plt Count 129 L 144 MPV 9.3 9.9 Absolute Neuts (auto) 2.5 Neutrophils % 57.3 Lymphocytes % 26.4 Monocytes % 14.3 H Eosinophils % 1.1 Basophils % 0.9 Nucleated RBC % 0 Sodium 139 Potassium 4.4 Chloride 94 L Carbon Dioxide 42 H Anion Gap 3 L BUN 16.1 Creatinine 0.9 Est GFR (CKD-EPI)AfAm 65.70 Est GFR (CKD-EPI)NonAf 56.69 Random Glucose 88 Calcium 9.1 Phosphorus 2.9 Magnesium 2.2 Current Medications Acetaminophen (Tylenol -) 650 mg PO Q6H PRN PRN Reason: PAIN 1-3 Last Admin: 05/21/19 05:34 Dose: 650 mg Albuterol/Ipratropium (Duoneb -) 1 amp NEB Q6H PRN PRN Reason: SHORTNESS OF BREATH Last Admin: 05/20/19 12:44 Dose: 1 amp Aspirin (Ecotrin -) 81 mg PO DAILY [facility] Last Admin: 05/22/19 09:03 Dose: 81 mg Atenolol (Tenormin -) 50 mg PO DAILY [facility] Last Admin: 05/22/19 10:38 Dose: 50 mg Atorvastatin Calcium (Lipitor -) 20 mg PO HS [facility] Last Admin: 05/21/19 22:24 Dose: 20 mg Budesonide/Formoterol Fumarate (Symbicort 160/4.5mcg -) 2 puff IH BID [facility] Last Admin: 05/22/19 09:06 Dose: 2 puff Ferrous Sulfate (Feosol -) 325 mg PO BIDWM [facility] Last Admin: 05/22/19 08:54 Dose: 325 mg Furosemide (Lasix Injection -) 40 mg IVPUSH DAILY [facility] Last Admin: 05/22/19 10:37 Dose: 40 mg Heparin Sodium (Porcine) (Heparin -) 5,000 unit SQ BID [facility] Last Admin: 05/22/19 12:29 Dose: 5,000 unit Meropenem 1 gm/ Dextrose 100 mls @ 0 mls/hr IVPB BID [facility] Last Admin: 05/22/19 09:05 Dose: 100 mls/hr Lactobacillus Acidophilus (Bacid -) 1 tab PO DAILY [facility] Last Admin: 05/22/19 13:46 Dose: 1 tab Lisinopril (Prinivil) 5 mg PO DAILY [facility] Last Admin: 05/22/19 10:38 Dose: 5 mg Pantoprazole Sodium (Protonix -) 40 mg PO DAILY [facility] Last Admin: 05/22/19 09:04 Dose: 40 mg Prednisone (Deltasone -) 5 mg PO DAILY [facility] Last Admin: 05/22/19 09:02 Dose: 5 mg Spironolactone (Aldactone -) 25 mg PO DAILY [facility] Last Admin: 05/22/19 10:38 Dose: 25 mg ASSESSMENT/PLAN: 88 yo F PMH of COPD ([place] 2[place]), HTN, Afib, HLD, Pulmonary HTN, HFpEF, cor pulmonale with RV failure presented to ED with worsening lower leg pain and edema.pt is admitted for acute on chronic HFpEF. Pt also found to have a UTI, prior admission grew ESBL Lower Leg edema likely 2/2 Acute on Chronic HFpEF -BNP: 4389 -c/w IV lasix 40 daily -Echo 08/03: reviewed EF 60-65%, R heart failure , awaiting repeat Echo -monitor I/Os -daily weights -d/c rodriguez -cardio recs appreciated UTI -pt s/p B/L stents , last admission 02/02 for ESBL UTI tx w/ ertapenem and linezolid. -pt endorses hematuria, dysuria on admission, today rodriguez shows clear urine -(+)UA -UCx growing Klebsiella -pending BCx -Empiric Zosyn in ED -pt s/p meropenem and linezolid -sensitivities reviewed, switch to ceftriaxone -ID recs appreciated COPD -Nasal cannula 3L O2. goal O2 sat 93-95% -Symbicort daily -Duoneb nebulizer PRN -Prednisone 5mg PO daily HTN -Lisinopril 5mg PO daily -Spironolactone 25mg PO daily -c/w Atenolol HLD -Atorvastatin 20mg PO HS -fasting lipid panel reviewed. -A1C 6% Afib -continue tele monitor -c/w atenolol, asa Microcytic Anemia -no evidence of acute blood loss -likely chronic -pending Fe studies -Ferrous sulfate -f/u outpt Diarrhea -likely 2/2 Abx use -bacid DVTppx: heparin F/E/N -Follow BMP, replete as necessary. Hypokalemia -repleted, continue to monitor K Hypomagnesemia -monitor Mg -repleted -Sodium controlled controlled diet Disposition: continue monitoring until pt is medically optimized. Visit type - Emergency Visit Emergency Visit: No - New Patient This patient is new to me today: No - Critical Care Critical Care patient: No - Discharge Referral Referred to [facility] No ATTENDING PHYSICIAN STATEMENT I saw and evaluated the patient. I reviewed the resident's note and discussed the case with the resident. I agree with the resident's findings and plan as documented. SUBJECTIVE: OBJECTIVE: ASSESSMENT AND PLAN:
--- NOTE | 2019-05-22 14:50 | PN ---
Progress Note, Physician Chief Complaint: seen and examined States she is "breathing better" TELE: AF average rate 80s History of Present Illness: weight stable - Current Medication List Current Medications: Active Medications Acetaminophen (Tylenol -) 650 mg PO Q6H PRN PRN Reason: PAIN 1-3 Last Admin: 05/21/19 05:34 Dose: 650 mg Albuterol/Ipratropium (Duoneb -) 1 amp NEB Q6H PRN PRN Reason: SHORTNESS OF BREATH Last Admin: 05/20/19 12:44 Dose: 1 amp Aspirin (Ecotrin -) 81 mg PO DAILY [facility] Last Admin: 05/22/19 09:03 Dose: 81 mg Atenolol (Tenormin -) 50 mg PO DAILY [facility] Last Admin: 05/22/19 10:38 Dose: 50 mg Atorvastatin Calcium (Lipitor -) 20 mg PO HS [facility] Last Admin: 05/21/19 22:24 Dose: 20 mg Budesonide/Formoterol Fumarate (Symbicort 160/4.5mcg -) 2 puff IH BID [facility] Last Admin: 05/22/19 09:06 Dose: 2 puff Ferrous Sulfate (Feosol -) 325 mg PO BIDWM [facility] Last Admin: 05/22/19 08:54 Dose: 325 mg Furosemide (Lasix Injection -) 40 mg IVPUSH DAILY [facility] Last Admin: 05/22/19 10:37 Dose: 40 mg Heparin Sodium (Porcine) (Heparin -) 5,000 unit SQ BID [facility] Last Admin: 05/22/19 12:29 Dose: 5,000 unit Meropenem 1 gm/ Dextrose 100 mls @ 0 mls/hr IVPB BID [facility] Last Admin: 05/22/19 09:05 Dose: 100 mls/hr Lactobacillus Acidophilus (Bacid -) 1 tab PO DAILY [facility] Last Admin: 05/22/19 13:46 Dose: 1 tab Lisinopril (Prinivil) 5 mg PO DAILY [facility] Last Admin: 05/22/19 10:38 Dose: 5 mg Pantoprazole Sodium (Protonix -) 40 mg PO DAILY [facility] Last Admin: 05/22/19 09:04 Dose: 40 mg Prednisone (Deltasone -) 5 mg PO DAILY [facility] Last Admin: 05/22/19 09:02 Dose: 5 mg Spironolactone (Aldactone -) 25 mg PO DAILY [facility] Last Admin: 05/22/19 10:38 Dose: 25 mg - Objective Vital Signs: Vital Signs Temperature 98.6 F 05/22/19 06:00 Pulse Rate 89 05/22/19 06:00 Respiratory Rate 20 05/22/19 06:00 Blood Pressure 101/61 05/22/19 06:00 O2 Sat by Pulse Oximetry (%) 99 05/22/19 09:00 Constitutional: Yes: No Distress Cardiovascular: Yes: Pulse Irregular Respiratory: Yes: Other (decreased breath sounds bases. no wheezing) Gastrointestinal: Yes: Soft Edema: Yes Edema: LLE: 1+, RLE: 1+ Neurological: Yes: Alert Labs: CBC, BMP 05/22/19 06:45 05/22/19 06:45 INR, PTT INR 1.18 (0.83-1.09) H 05/19/19 16:45 - ....Imaging EKG: Image Reviewed Assessment/Plan CXR mild congestive changes Echo 07/2018 nl LV function, LA mod/severely dilated. RA mod dilated. Mod MR. Mod TR. RVSP elevated at 74 mmHG. tele: AF, HR controlled Assessment/Plan 81F h/o afib, CHF, COPD (on home O2 2L), HTN, pulm HTN, hematuria s/p b/l perc nephrostomy sent from [place] for chest tightness, shortness of breath, UTI Acute on chronic diastolic HF exacerbation, pulm sarcoid, advanced COPD, cor pulmonale with RV failure, history of chronic hypoxemic/hypercapneic resp failure: -baseline BNP 1K-10K range -cont lasix 40 iv bid for now -Weight stable. afib: - HR control good--cont atenolol - As per prior admission in 12/2018, holding eliquis for hx of severe hematuria, anemia - cont aspirin UTI -As per ID Presumed underlying cad, prior type II NSTEMI 2018 (sec to hypotensive episode): -deferred invasive CAD mgmt approach given poor functional status with competing mortality limitations from severe lung dz, low likelihood to improve prognosis, and risks > benefits (including bleeding, AIN) -treated with ASA, statin, BB -chronic non-cardiac CP on mult prior admits--sec to acute flare of pulm sarcoid vs acute cor pulmonale exacerbations. similar presentation currently with no ischemic changes on ekg, trop neg. -same plan as prior, cont prior CAD med regimen
[2019-05-22] MEDS: ATORVASTATIN CA 20 MG TABLET (FP) PO SCH (21:37)
[2019-05-23 06:20] LABS: HEMATOCRIT 30.3 % (32.4-45.2); HEMOGLOBIN 9.2 GM/dL (10.7-15.3); MCH 21.5 pg (25.7-33.7); MCHC 30.4 g/dl (32.0-36.0); MEAN CELL VOLUME 70.6 fl (80-96); MEAN PLT VOLUME 9.2 fl (7.5-11.1); PLATELET COUNT 127 K/MM3 (134-434); RDW 16.1 % (11.6-15.6); WHITE BLOOD COUNT 3.9 K/mm3 (4.0-10.0)
[2019-05-23] MEDS ORDERED: ALBUTEROL SO4 0.083% IH SOL 2.5 MG/3 ML VIAL.NEB. NEB PRN (07:49)
[2019-05-23] MEDS: ALBUTEROL SO4 2.5/IPRATROPIUM 0.5 INH SOL 3 ML VIAL.NEB. NEB SCH ×4 (08:00→20:46)
[2019-05-23 08:35] LABS: GLUCOSE,RANDOM 169 mg/dL (74-106)
[2019-05-23 08:36] LABS: CALCIUM 8.6 mg/dL (8.5-10.1); CHLORIDE 97 mmol/L (98-107); CO2 41 mmol/L (21-32); CREATININE 0.8 mg/dL (0.55-1.3); MAGNESIUM 2.1 mg/dL (1.8-2.4); POTASSIUM 3.5 mmol/L (3.5-5.1); SODIUM 144 mmol/L (136-145)
[2019-05-23] MEDS ORDERED: cefTRIAXone SODIUM 1 GM VIAL ONE (08:48)
[2019-05-23] MEDS ORDERED: DEXTROSE 5%-WATER - 50 ML IVPB ONE (08:48)
[2019-05-23] MEDS: CEFTRIAXONE 1 GM in DEXTROSE 5%-WATER - 50 ML IVPB SCH (09:46)
[2019-05-23] MEDS: HEPARIN NA (PORCINE) 5,000 UNITS/ML 1ML VIAL SQ SCH ×2 (09:46→21:17)
[2019-05-23] MEDS: FUROSEMIDE 40 MG/4 ML INJECTABLE VIAL IVPUSH SCH (09:46)
[2019-05-23] MEDS: predniSONE 5 MG TABLET (UD) PO SCH (09:47)
[2019-05-23] MEDS: ATENOLOL 50 MG TABLET (FP) PO SCH (09:47)
[2019-05-23] MEDS: LISINOPRIL 5 MG TABLET (FP) PO SCH (09:47)
[2019-05-23] MEDS: PANTOPRAZOLE 40 MG TABLET (FP) PO SCH (09:47)
[2019-05-23] MEDS: FERROUS SO4 325 MG TABLET (FP) PO SCH ×2 (09:47→17:37)
[2019-05-23] MEDS: LACTOBACILLUS ACIDOPHILUS 1 TABLET PO SCH (09:47)
[2019-05-23] MEDS: ASPIRIN COATED 81 MG TABLET.EC PO SCH (09:47)
[2019-05-23] MEDS: SPIRONOLACTONE 25 MG TABLET (FP) PO SCH (09:47)
--- NOTE | 2019-05-23 10:34 | PN ---
Progress Note (short form) - Note Progress Note: s: sob improving, still with lower ext edema. no chest pain, palps, dizziness Current Medications Acetaminophen (Tylenol -) 650 mg PO Q6H PRN PRN Reason: PAIN 1-3 Last Admin: 05/21/19 05:34 Dose: 650 mg Albuterol Sulfate (Ventolin 0.083% Nebulizer Soln -) 1 amp NEB Q4H PRN PRN Reason: SHORT OF BREATH/WHEEZING Albuterol/Ipratropium (Duoneb -) 1 amp NEB RQID [facility] Aspirin (Ecotrin -) 81 mg PO DAILY [facility] Last Admin: 05/23/19 09:47 Dose: 81 mg Atenolol (Tenormin -) 50 mg PO DAILY [facility] Last Admin: 05/23/19 09:47 Dose: 50 mg Atorvastatin Calcium (Lipitor -) 20 mg PO HS [facility] Last Admin: 05/22/19 21:37 Dose: 20 mg Budesonide/Formoterol Fumarate (Symbicort 160/4.5mcg -) 2 puff IH BID [facility] Last Admin: 05/22/19 21:38 Dose: 2 puff Ferrous Sulfate (Feosol -) 325 mg PO BIDWM [facility] Last Admin: 05/23/19 09:47 Dose: 325 mg Furosemide (Lasix Injection -) 40 mg IVPUSH DAILY [facility] Last Admin: 05/23/19 09:46 Dose: 40 mg Heparin Sodium (Porcine) (Heparin -) 5,000 unit SQ BID [facility] Last Admin: 05/23/19 09:46 Dose: 5,000 unit Ceftriaxone Sodium 1 gm/ (Dextrose) 50 mls @ 100 mls/hr IVPB DAILY [facility] Last Admin: 05/23/19 09:46 Dose: 100 mls/hr Lactobacillus Acidophilus (Bacid -) 1 tab PO DAILY [facility] Last Admin: 05/23/19 09:47 Dose: 1 tab Lisinopril (Prinivil) 5 mg PO DAILY [facility] Last Admin: 05/23/19 09:47 Dose: Not Given Pantoprazole Sodium (Protonix -) 40 mg PO DAILY [facility] Last Admin: 05/23/19 09:47 Dose: 40 mg Prednisone (Deltasone -) 5 mg PO DAILY [facility] Last Admin: 05/23/19 09:47 Dose: 5 mg Spironolactone (Aldactone -) 25 mg PO DAILY [facility] Last Admin: 05/23/19 09:47 Dose: 25 mg Vital Signs Period Temp Pulse Resp BP Sys/Garza Pulse Ox Last 24 Hr 97.9 F-99.3 F 73-84 20-20 94-131/50-68 98-100 Constitutional: Yes: No Distress Cardiovascular: Yes: Pulse Irregular Respiratory: Yes: Other (decreased breath sounds bases. no wheezing) Gastrointestinal: Yes: Soft Edema: Yes Edema: LLE: 1+, RLE: 1+ Neurological: Yes: Alert no jaundice, diaphoresis not agitated - ....Imaging EKG: Image Reviewed Assessment/Plan CXR mild congestive changes Echo 07/2018 nl LV function, LA mod/severely dilated. RA mod dilated. Mod MR. Mod TR. RVSP elevated at 74 mmHG. tele: AF, HR controlled Assessment/Plan 81F h/o afib, CHF, COPD (on home O2 2L), HTN, pulm HTN, hematuria s/p b/l perc nephrostomy sent from [place] for chest tightness, shortness of breath, UTI Acute on chronic diastolic HF exacerbation, pulm sarcoid, advanced COPD, cor pulmonale with RV failure, history of chronic hypoxemic/hypercapneic resp failure: -baseline BNP 1K-10K range -cont lasix 40 IV daily, Cr stable, edema and SOB improving afib: - HR control good--cont atenolol - As per prior admission in 12/2018, holding eliquis for hx of severe hematuria, anemia - cont aspirin UTI -As per ID Presumed underlying cad, prior type II NSTEMI 2018 (sec to hypotensive episode): -deferred invasive CAD mgmt approach given poor functional status with competing mortality limitations from severe lung dz, low likelihood to improve prognosis, and risks > benefits (including bleeding, AIN) -treated with ASA, statin, BB -chronic non-cardiac CP on mult prior admits--sec to acute flare of pulm sarcoid vs acute cor pulmonale exacerbations. similar presentation currently with no ischemic changes on ekg, trop neg. -same plan as prior, cont prior CAD med regimen
[2019-05-23] MEDS ORDERED: LOPERAMIDE HCL 2 MG CAPSULE PO PRN (11:11)
[2019-05-23] MEDS: BUDESONIDE/FORMETEROL FUMARATE 160/4.5 mcg INHALER IH SCH ×2 (11:35→21:17)
--- NOTE | 2019-05-23 12:16 | PN ---
Progress Note, Physician History of Present Illness: improving breathing better b/l lower ext edema - Current Medication List Current Medications: Active Medications Acetaminophen (Tylenol -) 650 mg PO Q6H PRN PRN Reason: PAIN 1-3 Last Admin: 05/21/19 05:34 Dose: 650 mg Albuterol Sulfate (Ventolin 0.083% Nebulizer Soln -) 1 amp NEB Q4H PRN PRN Reason: SHORT OF BREATH/WHEEZING Albuterol/Ipratropium (Duoneb -) 1 amp NEB RQID [facility] Aspirin (Ecotrin -) 81 mg PO DAILY [facility] Last Admin: 05/23/19 09:47 Dose: 81 mg Atenolol (Tenormin -) 50 mg PO DAILY [facility] Last Admin: 05/23/19 09:47 Dose: 50 mg Atorvastatin Calcium (Lipitor -) 20 mg PO HS [facility] Last Admin: 05/22/19 21:37 Dose: 20 mg Budesonide/Formoterol Fumarate (Symbicort 160/4.5mcg -) 2 puff IH BID [facility] Last Admin: 05/23/19 11:35 Dose: 2 puff Ferrous Sulfate (Feosol -) 325 mg PO BIDWM [facility] Last Admin: 05/23/19 09:47 Dose: 325 mg Furosemide (Lasix Injection -) 40 mg IVPUSH DAILY [facility] Last Admin: 05/23/19 09:46 Dose: 40 mg Heparin Sodium (Porcine) (Heparin -) 5,000 unit SQ BID [facility] Last Admin: 05/23/19 09:46 Dose: 5,000 unit Ceftriaxone Sodium 1 gm/ (Dextrose) 50 mls @ 100 mls/hr IVPB DAILY [facility] Last Admin: 05/23/19 09:46 Dose: 100 mls/hr Lactobacillus Acidophilus (Bacid -) 1 tab PO DAILY [facility] Last Admin: 05/23/19 09:47 Dose: 1 tab Lisinopril (Prinivil) 5 mg PO DAILY [facility] Last Admin: 05/23/19 09:47 Dose: Not Given Loperamide HCl (Imodium -) 2 mg PO Q8H PRN PRN Reason: DIARRHEA Pantoprazole Sodium (Protonix -) 40 mg PO DAILY [facility] Last Admin: 05/23/19 09:47 Dose: 40 mg Prednisone (Deltasone -) 5 mg PO DAILY [facility] Last Admin: 05/23/19 09:47 Dose: 5 mg Spironolactone (Aldactone -) 25 mg PO DAILY [facility] Last Admin: 05/23/19 09:47 Dose: 25 mg - Objective Vital Signs: Vital Signs Temperature 98.2 F 05/23/19 06:00 Pulse Rate 75 05/23/19 06:00 Respiratory Rate 20 05/23/19 06:00 Blood Pressure 94/50 L 05/23/19 06:00 O2 Sat by Pulse Oximetry (%) 99 05/23/19 08:15 Constitutional: Yes: No Distress, Calm Cardiovascular: Yes: S1, S2 Respiratory: Yes: Regular, Poor Air Entry Gastrointestinal: Yes: Normal Bowel Sounds, Soft Musculoskeletal: Yes: WNL Extremities: Yes: Other (b/l ext edema) Neurological: Yes: Alert, Oriented Psychiatric: Yes: Alert, Oriented Labs: CBC, BMP 05/23/19 05:30 05/23/19 05:30 INR, PTT INR 1.18 (0.83-1.09) H 05/19/19 16:45 Assessment/Plan Problem List - Problems (1) UTI (urinary tract infection) Code(s): N39.0 - URINARY TRACT INFECTION, SITE NOT SPECIFIED Qualifiers: Urinary tract infection type: site unspecified Hematuria presence: with hematuria Qualified Code(s): N39.0 - Urinary tract infection, site not specified; R31.9 - Hematuria, unspecified (2) CHF (congestive heart failure) Code(s): I50.9 - HEART FAILURE, UNSPECIFIED Qualifiers: Heart failure type: unspecified Heart failure chronicity: unspecified Qualified Code(s): I50.9 - Heart failure, unspecified (3) Atrial fibrillation Code(s): I48.91 - UNSPECIFIED ATRIAL FIBRILLATION Qualifiers: Atrial fibrillation type: permanent Qualified Code(s): I48.2 - Chronic atrial fibrillation (4) COPD (chronic obstructive pulmonary disease) Code(s): J44.9 - CHRONIC OBSTRUCTIVE PULMONARY DISEASE, UNSPECIFIED Qualifiers: COPD type: unspecified COPD Qualified Code(s): J44.9 - Chronic obstructive pulmonary disease, unspecified (5) Coronary artery disease Code(s): I25.10 - ATHSCL HEART DISEASE OF [place] CORONARY ARTERY W/O ANG PCTRS Qualifiers: Coronary Disease-Associated Artery/Lesion type: [place] artery [place] vs. transplanted heart: [place] heart Associated angina: without angina Qualified Code(s): I25.10 - Atherosclerotic heart disease of [place] coronary artery without angina pectoris (6) Hypercholesterolemia Code(s): E78.00 - PURE HYPERCHOLESTEROLEMIA, UNSPECIFIED (7) Hypertension Code(s): I10 - ESSENTIAL (PRIMARY) HYPERTENSION Qualifiers: Hypertension type: essential hypertension Qualified Code(s): I10 - Essential (primary) hypertension (8) Pulmonary HTN Code(s): I27.20 - PULMONARY HYPERTENSION, UNSPECIFIED (9) Sarcoidosis Code(s): D86.9 - SARCOIDOSIS, UNSPECIFIED (10) SANAM (acute kidney injury) Code(s): N17.9 - ACUTE KIDNEY FAILURE, UNSPECIFIED (11) Hypokalemia Code(s): E87.6 - HYPOKALEMIA (12) Hypoxia Code(s): R09.02 - HYPOXEMIA (13) Shortness of breath at rest Code(s): R06.02 - SHORTNESS OF BREATH Assessment/Plan 88 y.o. female [place] resident with PMH of CHF, AFIB (not on AC), CAD, HTN, HLD, Pulm HTN, Cor Pulmonale, respiratory failure, COPD, Sarcoidosis, anemia, b/l nephrostomy (removed), b/l stent placement in October 2018, previous ESBL + and VRE UTI, S/P cervical spine surgery with hardware presents with c/o SOB, b/l LE edema, and dysuria. Hypoxic, tachycardic, with evidence of pulmonary congestion and U/A suggestive of UTI Complicated UTI/ b/l stents (Hx of ESBL+/VRE) CHF Exacerbation Acute respiratory failure COPD Pulm HTN Sarcoidosis CAD AFIB Anemia plan continue abx resp support rest as per the team
--- NOTE | 2019-05-23 13:41 | PN ---
Physical Exam: SUBJECTIVE: Patient seen and examined OBJECTIVE: Vital Signs Period Temp Pulse Resp BP Sys/Garza Pulse Ox Last 24 Hr 97.9 F-99.3 F 73-84 20-20 94-131/50-68 98-100 GENERAL: The patient is awake, alert, and fully oriented, in no acute distress. HEAD: Normal with no signs of trauma. EYES: PERRL, extraocular movements intact, sclera anicteric, conjunctiva clear. No ptosis. ENT: Ears normal, nares patent, oropharynx clear without exudates, moist mucous membranes. NECK: Trachea midline, full range of motion, supple. LUNGS: Breath sounds equal, clear to auscultation bilaterally, no wheezes, no crackles, no accessory muscle use. HEART: Regular rate and rhythm, S1, S2 without murmur, rub or gallop. ABDOMEN: Soft, nontender, nondistended, normoactive bowel sounds, no guarding, no rebound, no hepatosplenomegaly, no masses. EXTREMITIES: 2+ pulses, warm, well-perfused, no edema. NEUROLOGICAL: Cranial nerves II through XII grossly intact. Normal speech, gait not observed. PSYCH: Normal mood, normal affect. SKIN: Warm, dry, normal turgor, no rashes or lesions noted Laboratory Results - last 24 hr 05/23/19 05/23/19 05:30 05:30 WBC 3.9 L RBC 4.30 Hgb 9.2 L Hct 30.3 L MCV 70.6 L MCH 21.5 L MCHC 30.4 L RDW 16.1 H Plt Count 127 L MPV 9.2 Sodium 144 Potassium 3.5 Chloride 97 L Carbon Dioxide 41 H Anion Gap No Result Required. BUN 21.0 H Creatinine 0.8 Est GFR (CKD-EPI)AfAm 75.76 Est GFR (CKD-EPI)NonAf 65.36 Random Glucose 169 H Calcium 8.6 Phosphorus 3.0 Magnesium 2.1 Current Medications Acetaminophen (Tylenol -) 650 mg PO Q6H PRN PRN Reason: PAIN 1-3 Last Admin: 05/21/19 05:34 Dose: 650 mg Albuterol Sulfate (Ventolin 0.083% Nebulizer Soln -) 1 amp NEB Q4H PRN PRN Reason: SHORT OF BREATH/WHEEZING Albuterol/Ipratropium (Duoneb -) 1 amp NEB RQID [facility] Last Admin: 05/23/19 12:54 Dose: 1 amp Aspirin (Ecotrin -) 81 mg PO DAILY [facility] Last Admin: 05/23/19 09:47 Dose: 81 mg Atenolol (Tenormin -) 50 mg PO DAILY [facility] Last Admin: 05/23/19 09:47 Dose: 50 mg Atorvastatin Calcium (Lipitor -) 20 mg PO HS [facility] Last Admin: 05/22/19 21:37 Dose: 20 mg Budesonide/Formoterol Fumarate (Symbicort 160/4.5mcg -) 2 puff IH BID [facility] Last Admin: 05/23/19 11:35 Dose: 2 puff Ferrous Sulfate (Feosol -) 325 mg PO BIDWM [facility] Last Admin: 05/23/19 09:47 Dose: 325 mg Furosemide (Lasix Injection -) 40 mg IVPUSH DAILY [facility] Last Admin: 05/23/19 09:46 Dose: 40 mg Heparin Sodium (Porcine) (Heparin -) 5,000 unit SQ BID [facility] Last Admin: 05/23/19 09:46 Dose: 5,000 unit Ceftriaxone Sodium 1 gm/ (Dextrose) 50 mls @ 100 mls/hr IVPB DAILY [facility] Last Admin: 05/23/19 09:46 Dose: 100 mls/hr Lactobacillus Acidophilus (Bacid -) 1 tab PO DAILY [facility] Last Admin: 05/23/19 09:47 Dose: 1 tab Lisinopril (Prinivil) 5 mg PO DAILY [facility] Last Admin: 05/23/19 09:47 Dose: Not Given Loperamide HCl (Imodium -) 2 mg PO Q8H PRN PRN Reason: DIARRHEA Pantoprazole Sodium (Protonix -) 40 mg PO DAILY [facility] Last Admin: 05/23/19 09:47 Dose: 40 mg Prednisone (Deltasone -) 5 mg PO DAILY [facility] Last Admin: 05/23/19 09:47 Dose: 5 mg Spironolactone (Aldactone -) 25 mg PO DAILY [facility] Last Admin: 05/23/19 09:47 Dose: 25 mg ASSESSMENT/PLAN: 88 yo F PMH of COPD (on 2-3L at [place]), HTN, Afib, HLD, Pulmonary HTN, HFpEF, cor pulmonale with RV failure presented to ED with worsening lower leg pain and edema.pt is admitted for acute on chronic HFpEF. Pt also found to have a UTI, prior admission grew ESBL Lower Leg edema likely 2/2 Acute on Chronic HFpEF -BNP: 4389 -c/w IV lasix 40 daily -Echo 08/03: reviewed EF 60-65%, R heart failure , awaiting repeat Echo -monitor I/Os -daily weights -cardio recs appreciated UTI -pt s/p B/L stents , last admission 02/02 for ESBL UTI tx w/ ertapenem and linezolid. -pt endorses hematuria, dysuria on admission, pt denies hematuria today -(+)UA, UCx growing Klebsiella -pending BCx -Empiric Zosyn in ED -pt s/p meropenem and linezolid -sensitivities reviewed, -c/w ceftriaxone (day 2) -ID recs appreciated COPD -Nasal cannula 3L O2. goal O2 sat 93-95% -Symbicort daily -Duoneb nebulizer PRN -Prednisone 5mg PO daily HTN -Lisinopril 5mg PO daily -Spironolactone 25mg PO daily -c/w Atenolol HLD -Atorvastatin 20mg PO HS -fasting lipid panel reviewed. -A1C 6% Afib -continue tele monitor -c/w atenolol, asa Microcytic Anemia -no evidence of acute blood loss -likely chronic -pending Fe studies -Ferrous sulfate -f/u outpt Diarrhea -likely 2/2 Abx use -bacid DVTppx: heparin F/E/N -Follow BMP, replete as necessary. Hypokalemia -repleted, continue to monitor K Hypomagnesemia -monitor Mg -repleted -Sodium controlled controlled diet Disposition: continue monitoring until pt is medically optimized. pt likely will be discharged to rehab Visit type - Emergency Visit Emergency Visit: No - New Patient This patient is new to me today: No - Critical Care Critical Care patient: No - Discharge Referral Referred to [facility] No ATTENDING PHYSICIAN STATEMENT I saw and evaluated the patient. I reviewed the resident's note and discussed the case with the resident. I agree with the resident's findings and plan as documented. SUBJECTIVE: OBJECTIVE: ASSESSMENT AND PLAN:
--- NOTE | 2019-05-23 14:37 | PN ---
Teaching Attending Note Name of Resident: Maci Boyer ATTENDING PHYSICIAN STATEMENT I saw and evaluated the patient. I reviewed the resident's note and discussed the case with the resident. I agree with the resident's findings and plan as documented. SUBJECTIVE: states her feet hurt as the skin feels "tight". breathing better. only 1 loose BM since yesterday. denies Cp, SOB, fever, chills, N/V/C/D OBJECTIVE: Last Vital Signs Temp Pulse Resp BP Pulse Ox 98.2 F 75 20 94/50 L 98 05/23/19 06:00 05/23/19 06:00 05/23/19 10:00 05/23/19 06:00 05/23/19 10:00 General NAD CV S1 S2 RRR no murmur/rub/gallop Lungs decreased bases scattered wheezing Abdomen soft NT/ND normoactive BS Extremities 2+ pitting edema ASSESSMENT AND PLAN: 88 year old female with history of CRF sec to COPD (on 2-3L O2), Pulmonary Sarcoid, HTN, Atrial Fibrillation, HLD, Pulmonary HTN, Chronic Diastolic CHF, cor pulmonale with RV failure, Hx of ESBL/VRE UTI, s/p bilateral nephrostomies ( reversed) and bilateral ureteral stenting, presented to ED with worsening SOB and LE edema with fluid weeping from skin of LEs. SpO2 reportedly in 70s at [place], here in 90s. 1. Acute Respiratory Distress secondary to Acute on Chronic Diastolic CHF/R sided HF - initially requiring BiPAP, now comfortable on NC. saturating 97% on 3L NC which is home dose. repeat Echo showing no pericardial effusion. on pred 5mg for sarcoid. cont current treatment 2. Diarrhea- likely abx assoc. now improved with bacid. will cont. 3. Klebsiella UTI- now on ceftriaxone. total of 5 days of abx. ID on board 4. Acute on chronic diastolic CHF- clinically improved. cont with lasix IV. daily weights. monitor electrolytes. 5. HTN- controlled. 6. COPD- on pulmonary sarcoid. on pred 5mg. cont 7. Dyslipidemia - Continue Atorvastatin 8. Atrial Fibrillation- not on anticoag due to hx of hematuria. cont current treatment. 9. Hypomagnesemia - resolved s/p repletion 10. Microcytic Anemia,-hgb stable. no signs of bleeding. no indication for transfusion 11. DVT Px - Heparin SQ 12.PT 25 ft. recommending LIOR. spoke with patient who is refusing to go at this time. Refusing to go, verbalizing understanding of why its better but wants to go home. states shes "stronger than I look"
[2019-05-23] MEDS: ATORVASTATIN CA 20 MG TABLET (FP) PO SCH (21:17)
[2019-05-24] MEDS ORDERED: SODIUM CHLORIDE NASAL SPRAY 44 ML BOTTLE NS PRN (05:16)
[2019-05-24 07:42] LABS: HEMATOCRIT 32.1 % (32.4-45.2); HEMOGLOBIN 9.5 GM/dL (10.7-15.3); MCH 21.2 pg (25.7-33.7); MCHC 29.5 g/dl (32.0-36.0); MEAN PLT VOLUME 9.7 fl (7.5-11.1); RBC 4.45 M/mm3 (3.60-5.2); RDW 16.4 % (11.6-15.6); WHITE BLOOD COUNT 4.2 K/mm3 (4.0-10.0)
[2019-05-24 07:49] LABS: BLOOD UREA NITROGEN 16.8 mg/dL (7-18); CALCIUM 9.3 mg/dL (8.5-10.1); CREATININE 0.7 mg/dL (0.55-1.3); MAGNESIUM 2.2 mg/dL (1.8-2.4); POTASSIUM 4.2 mmol/L (3.5-5.1)
[2019-05-24 07:59] LABS: PLATELET COUNT 135 K/MM3 (134-434)
[2019-05-24] MEDS: ALBUTEROL SO4 2.5/IPRATROPIUM 0.5 INH SOL 3 ML VIAL.NEB. NEB SCH ×4 (08:33→20:40)
[2019-05-24] MEDS ORDERED: PT OWN MED DRAWER 7, Y5N ONE ×2 (09:42→17:52)
--- NOTE | 2019-05-24 09:55 | PN ---
Progress Note, Physician - Current Medication List Current Medications: Active Medications Acetaminophen (Tylenol -) 650 mg PO Q6H PRN PRN Reason: PAIN 1-3 Last Admin: 05/21/19 05:34 Dose: 650 mg Albuterol Sulfate (Ventolin 0.083% Nebulizer Soln -) 1 amp NEB Q4H PRN PRN Reason: SHORT OF BREATH/WHEEZING Albuterol/Ipratropium (Duoneb -) 1 amp NEB RQID [facility] Last Admin: 05/24/19 08:33 Dose: 1 amp Aspirin (Ecotrin -) 81 mg PO DAILY [facility] Last Admin: 05/23/19 09:47 Dose: 81 mg Atenolol (Tenormin -) 50 mg PO DAILY [facility] Last Admin: 05/23/19 09:47 Dose: 50 mg Atorvastatin Calcium (Lipitor -) 20 mg PO HS [facility] Last Admin: 05/23/19 21:17 Dose: 20 mg Budesonide/Formoterol Fumarate (Symbicort 160/4.5mcg -) 2 puff IH BID [facility] Last Admin: 05/23/19 21:17 Dose: 2 puff Ferrous Sulfate (Feosol -) 325 mg PO BIDWM [facility] Last Admin: 05/23/19 17:37 Dose: 325 mg Furosemide (Lasix Injection -) 40 mg IVPUSH DAILY [facility] Last Admin: 05/23/19 09:46 Dose: 40 mg Heparin Sodium (Porcine) (Heparin -) 5,000 unit SQ BID [facility] Last Admin: 05/23/19 21:17 Dose: 5,000 unit Ceftriaxone Sodium 1 gm/ (Dextrose) 50 mls @ 100 mls/hr IVPB DAILY [facility] Last Admin: 05/23/19 09:46 Dose: 100 mls/hr Lactobacillus Acidophilus (Bacid -) 1 tab PO DAILY [facility] Last Admin: 05/23/19 09:47 Dose: 1 tab Lisinopril (Prinivil) 5 mg PO DAILY [facility] Last Admin: 05/23/19 09:47 Dose: Not Given Loperamide HCl (Imodium -) 2 mg PO Q8H PRN PRN Reason: DIARRHEA Pantoprazole Sodium (Protonix -) 40 mg PO DAILY [facility] Last Admin: 05/23/19 09:47 Dose: 40 mg Prednisone (Deltasone -) 5 mg PO DAILY [facility] Last Admin: 05/23/19 09:47 Dose: 5 mg Sodium Chloride ([place] Nas[place] -) 2 spray NS BID PRN PRN Reason: NASAL CONGESTION Spironolactone (Aldactone -) 25 mg PO DAILY [facility] Last Admin: 05/23/19 09:47 Dose: 25 mg - Objective Vital Signs: Vital Signs Temperature 99 F 05/24/19 06:00 Pulse Rate 87 05/24/19 06:00 Respiratory Rate 20 05/24/19 06:00 Blood Pressure 111/48 L 05/24/19 06:00 O2 Sat by Pulse Oximetry (%) 93 L 05/24/19 08:34 Labs: CBC, BMP 05/24/19 06:40 05/24/19 06:40 INR, PTT INR 1.18 (0.83-1.09) H 05/19/19 16:45
[2019-05-24] MEDS ORDERED: cefTRIAXone SODIUM 1 GM VIAL ONE (10:11)
[2019-05-24] MEDS ORDERED: DEXTROSE 5%-WATER - 50 ML IVPB ONE (10:11)
[2019-05-24] MEDS: PANTOPRAZOLE 40 MG TABLET (FP) PO SCH (10:21)
[2019-05-24] MEDS: LACTOBACILLUS ACIDOPHILUS 1 TABLET PO SCH (10:21)
[2019-05-24] MEDS: CEFTRIAXONE 1 GM in DEXTROSE 5%-WATER - 50 ML IVPB SCH (10:21)
[2019-05-24] MEDS: predniSONE 5 MG TABLET (UD) PO SCH (10:21)
[2019-05-24] MEDS: FERROUS SO4 325 MG TABLET (FP) PO SCH ×2 (10:22→18:16)
[2019-05-24] MEDS: ATENOLOL 50 MG TABLET (FP) PO SCH (10:22)
[2019-05-24] MEDS: ASPIRIN COATED 81 MG TABLET.EC PO SCH (10:22)
[2019-05-24] MEDS: LISINOPRIL 5 MG TABLET (FP) PO SCH (10:22)
[2019-05-24] MEDS: SPIRONOLACTONE 25 MG TABLET (FP) PO SCH (10:22)
[2019-05-24] MEDS: FUROSEMIDE 40 MG/4 ML INJECTABLE VIAL IVPUSH SCH (10:23)
[2019-05-24] MEDS: BUDESONIDE/FORMETEROL FUMARATE 160/4.5 mcg INHALER IH SCH ×2 (10:24→22:23)
--- NOTE | 2019-05-24 10:29 | PN ---
Progress Note (short form) - Note Progress Note: s: sob improving, still with lower ext edema. no chest pain, palps, dizziness Current Medications Generic Name Dose Route Start Last Admin Trade Name Freq PRN Reason Stop Dose Admin Acetaminophen 650 mg 05/20/19 07:57 05/21/19 05:34 Tylenol - PO 650 mg Q6H PRN Administration PAIN 1-3 Albuterol Sulfate 1 amp 05/23/19 07:49 Ventolin 0.083% Nebulizer Soln - NEB Q4H PRN SHORT OF BREATH/WHEEZING Albuterol/Ipratropium 1 amp 05/23/19 08:00 05/24/19 08:33 Duoneb - NEB 1 amp RQID [facility] Administration Aspirin 81 mg 05/20/19 10:00 05/24/19 10:22 Ecotrin - PO 81 mg DAILY [facility] Administration Atenolol 50 mg 05/20/19 10:00 05/24/19 10:22 Tenormin - PO 50 mg DAILY [facility] Administration Atorvastatin Calcium 20 mg 05/19/19 22:00 05/23/19 21:17 Lipitor - PO 20 mg HS [facility] Administration Budesonide/Formoterol Fumarate 2 puff 05/19/19 22:00 05/24/19 10:24 Symbicort 160/4.5mcg - IH 2 puff BID [facility] Administration Ferrous Sulfate 325 mg 05/20/19 17:30 05/24/19 10:22 Feosol - PO 325 mg BIDWM [facility] Administration Furosemide 40 mg 05/22/19 10:00 05/24/19 10:23 Lasix Injection - IVPUSH 40 mg DAILY [facility] Administration Heparin Sodium (Porcine) 5,000 unit 05/20/19 22:00 05/23/19 21:17 Heparin - SQ 5,000 unit BID [facility] Administration Ceftriaxone Sodium 1 gm/ 50 mls @ 100 mls/hr 05/23/19 10:00 05/24/19 10:21 Dextrose IVPB 100 mls/hr DAILY [facility] Administration Lactobacillus Acidophilus 1 tab 05/22/19 13:30 05/24/19 10:21 Bacid - PO 1 tab DAILY [facility] Administration Lisinopril 5 mg 05/20/19 10:00 05/24/19 10:22 Prinivil PO 5 mg DAILY [facility] Administration Loperamide HCl 2 mg 05/23/19 11:11 Imodium - PO Q8H PRN DIARRHEA Pantoprazole Sodium 40 mg 05/21/19 11:40 05/24/19 10:21 Protonix - PO 40 mg DAILY [facility] Administration Prednisone 5 mg 05/20/19 10:00 05/24/19 10:21 Deltasone - PO 5 mg DAILY [facility] Administration Sodium Chloride 2 spray 05/24/19 05:16 [place] - NS BID PRN NASAL CONGESTION Spironolactone 25 mg 05/20/19 10:00 05/24/19 10:22 Aldactone - PO 25 mg DAILY [facility] Administration Vital Signs Period Temp Pulse Resp BP Sys/Garza Pulse Ox Last 24 Hr 98 F-99 F 82-93 20-20 109-111/48-66 93 Constitutional: Yes: No Distress Cardiovascular: Yes: Pulse Irregular Respiratory: Yes: Other (decreased breath sounds bases. no wheezing) Gastrointestinal: Yes: Soft Edema: Yes Edema: LLE: 1+, RLE: 1+ Neurological: Yes: Alert no jaundice, diaphoresis not agitated CBC, BMP 05/24/19 06:40 05/24/19 06:40 - ....Imaging EKG: Image Reviewed Assessment/Plan CXR mild congestive changes Echo 07/2018 nl LV function, LA mod/severely dilated. RA mod dilated. Mod MR. Mod TR. RVSP elevated at 74 mmHG. tele: AF, HR controlled Assessment/Plan 81F h/o afib, CHF, COPD (on home O2 2L), HTN, pulm HTN, hematuria s/p b/l perc nephrostomy sent from [place] for chest tightness, shortness of breath, UTI Acute on chronic diastolic HF exacerbation, pulm sarcoid, advanced COPD, cor pulmonale with RV failure, history of chronic hypoxemic/hypercapneic resp failure: -baseline BNP 1K-10K range -cont lasix 40 IV daily, Cr stable, edema and SOB improving afib: - HR control good--cont atenolol - As per prior admission in 12/2018, holding eliquis for hx of severe hematuria, anemia - cont aspirin UTI -As per ID Presumed underlying cad, prior type II NSTEMI 2018 (sec to hypotensive episode): -deferred invasive CAD mgmt approach given poor functional status with competing mortality limitations from severe lung dz, low likelihood to improve prognosis, and risks > benefits (including bleeding, AIN) -treated with ASA, statin, BB -chronic non-cardiac CP on mult prior admits--sec to acute flare of pulm sarcoid vs acute cor pulmonale exacerbations. similar presentation currently with no ischemic changes on ekg, trop neg. -same plan as prior, cont prior CAD med regimen
[2019-05-24] MEDS: HEPARIN NA (PORCINE) 5,000 UNITS/ML 1ML VIAL SQ SCH ×2 (12:30→22:23)
--- NOTE | 2019-05-24 13:37 | PN ---
Physical Exam: SUBJECTIVE: Patient seen and examined at bedside. Pt states her breathing is improving. OBJECTIVE: Vital Signs Period Temp Pulse Resp BP Sys/Garza Pulse Ox Last 24 Hr 98 F-99 F 82-93 20-24 109-119/48-66 93 GENERAL: The patient is awake, alert, and fully oriented, in no acute distress. NECK: Trachea midline, full range of motion, supple. LUNGS: Breath sounds decreased L base, clear to auscultation bilaterally, no wheezes, no crackles, no accessory muscle use. ON NC HEART: Regular rate and rhythm, S1, S2 without murmur, rub or gallop. ABDOMEN: Soft, nontender, nondistended, normoactive bowel sounds, no guarding EXTREMITIES: 2+ pulses, warm, well-perfused, B/L edema improving . SKIN: Warm, dry, normal turgor, no rashes or lesions noted Laboratory Results - last 24 hr 05/24/19 05/24/19 06:40 06:40 WBC 4.2 RBC 4.45 Hgb 9.5 L Hct 32.1 L MCV 72.0 L MCH 21.2 L MCHC 29.5 L RDW 16.4 H Plt Count 135 MPV 9.7 Sodium 140 Potassium 4.2 Chloride 94 L Carbon Dioxide 45 H Anion Gap 1 L BUN 16.8 Creatinine 0.7 Est GFR (CKD-EPI)AfAm 89.03 Est GFR (CKD-EPI)NonAf 76.82 Random Glucose 89 Calcium 9.3 Phosphorus 3.0 Magnesium 2.2 Current Medications Acetaminophen (Tylenol -) 650 mg PO Q6H PRN PRN Reason: PAIN 1-3 Last Admin: 05/21/19 05:34 Dose: 650 mg Albuterol Sulfate (Ventolin 0.083% Nebulizer Soln -) 1 amp NEB Q4H PRN PRN Reason: SHORT OF BREATH/WHEEZING Albuterol/Ipratropium (Duoneb -) 1 amp NEB RQID [facility] Last Admin: 05/24/19 08:33 Dose: 1 amp Aspirin (Ecotrin -) 81 mg PO DAILY [facility] Last Admin: 05/24/19 10:22 Dose: 81 mg Atenolol (Tenormin -) 50 mg PO DAILY [facility] Last Admin: 05/24/19 10:22 Dose: 50 mg Atorvastatin Calcium (Lipitor -) 20 mg PO HS [facility] Last Admin: 05/23/19 21:17 Dose: 20 mg Budesonide/Formoterol Fumarate (Symbicort 160/4.5mcg -) 2 puff IH BID [facility] Last Admin: 05/24/19 10:24 Dose: 2 puff Ferrous Sulfate (Feosol -) 325 mg PO BIDWM [facility] Last Admin: 05/24/19 10:22 Dose: 325 mg Furosemide (Lasix Injection -) 40 mg IVPUSH DAILY [facility] Last Admin: 05/24/19 10:23 Dose: 40 mg Heparin Sodium (Porcine) (Heparin -) 5,000 unit SQ BID [facility] Last Admin: 05/24/19 12:30 Dose: Not Given Ceftriaxone Sodium 1 gm/ (Dextrose) 50 mls @ 100 mls/hr IVPB DAILY [facility] Last Admin: 05/24/19 10:21 Dose: 100 mls/hr Lactobacillus Acidophilus (Bacid -) 1 tab PO DAILY [facility] Last Admin: 05/24/19 10:21 Dose: 1 tab Lisinopril (Prinivil) 5 mg PO DAILY [facility] Last Admin: 05/24/19 10:22 Dose: 5 mg Loperamide HCl (Imodium -) 2 mg PO Q8H PRN PRN Reason: DIARRHEA Pantoprazole Sodium (Protonix -) 40 mg PO DAILY [facility] Last Admin: 05/24/19 10:21 Dose: 40 mg Prednisone (Deltasone -) 5 mg PO DAILY [facility] Last Admin: 05/24/19 10:21 Dose: 5 mg Sodium Chloride ([place] Nasal [place] -) 2 spray NS BID PRN PRN Reason: NASAL CONGESTION Last Admin: 05/24/19 11:17 Dose: 2 spray Spironolactone (Aldactone -) 25 mg PO DAILY [facility] Last Admin: 05/24/19 10:22 Dose: 25 mg ASSESSMENT/PLAN: 88 yo F PMH of COPD (on 2-3L at [place]), HTN, Afib, HLD, Pulmonary HTN, HFpEF, cor pulmonale with RV failure presented to ED with worsening lower leg pain and edema.pt is admitted for acute on chronic HFpEF. Pt also found to have a UTI, prior admission grew ESBL Lower Leg edema likely 2/2 Acute on Chronic HFpEF -clinically improving -BNP: 4389 -c/w IV lasix 40 daily -Echo 08/03: reviewed EF 60-65%, R heart failure , awaiting repeat Echo -monitor I/Os -daily weights -cardio recs appreciated UTI -pt s/p B/L stents , last admission 02/02 for ESBL UTI tx w/ ertapenem and linezolid. -pt endorses hematuria, dysuria on admission, pt denies hematuria today -(+)UA, UCx growing Klebsiella -pending BCx -Empiric Zosyn in ED -pt s/p meropenem and linezolid -sensitivities reviewed, -c/w ceftriaxone (day3 ) -ID recs appreciated COPD -pt has hx of pulm sarcoid -Nasal cannula 3L O2. goal O2 sat 93-95% -Symbicort daily -Duoneb nebulizer PRN -Prednisone 5mg PO daily HTN -Lisinopril 5mg PO daily -Spironolactone 25mg PO daily -c/w Atenolol HLD -Atorvastatin 20mg PO HS -fasting lipid panel reviewed. -A1C 6% Afib -continue tele monitor -c/w atenolol, asa -anticoagulation held at prior admission 2/2 hematuria Microcytic Anemia -no evidence of acute blood loss -likely chronic -pending Fe studies -Ferrous sulfate -f/u outpt Diarrhea -likely 2/2 Abx use -bacid -clinically improved DVTppx: heparin F/E/N -Follow BMP, replete as necessary. Hypokalemia -repleted, continue to monitor K Hypomagnesemia -monitor Mg -repleted -Sodium controlled controlled diet -PT evaluated pt and recommended LIOR Disposition: continue monitoring until pt is medically optimized. pt likely will be discharged to rehab. Visit type - Emergency Visit Emergency Visit: No - New Patient This patient is new to me today: No - Critical Care Critical Care patient: No - Discharge Referral Referred to [facility] No ATTENDING PHYSICIAN STATEMENT I saw and evaluated the patient. I reviewed the resident's note and discussed the case with the resident. I agree with the resident's findings and plan as documented. SUBJECTIVE: OBJECTIVE: ASSESSMENT AND PLAN:
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
[2019-05-24] MEDS: ATORVASTATIN CA 20 MG TABLET (FP) PO SCH (22:23)
[2019-05-25] MEDS: ALBUTEROL SO4 2.5/IPRATROPIUM 0.5 INH SOL 3 ML VIAL.NEB. NEB SCH ×4 (07:25→20:42)
--- NOTE | 2019-05-25 08:18 | PN ---
Progress Note, Physician Chief Complaint: seen and examined at bedside, RN doing EKG C/o "pinching" sharp sensation under left breast, resolving No N/V or SOB above baseline History of Present Illness: ECG: AF 87bpm, NSST changes inferiorly, no change from 05/19 TELE: AF average rate 80s weight down 2 lbs from yest - Current Medication List Current Medications: Active Medications Acetaminophen (Tylenol -) 650 mg PO Q6H PRN PRN Reason: PAIN 1-3 Last Admin: 05/21/19 05:34 Dose: 650 mg Albuterol Sulfate (Ventolin 0.083% Nebulizer Soln -) 1 amp NEB Q4H PRN PRN Reason: SHORT OF BREATH/WHEEZING Albuterol/Ipratropium (Duoneb -) 1 amp NEB RQID [facility] Last Admin: 05/25/19 07:25 Dose: Not Given Aspirin (Ecotrin -) 81 mg PO DAILY [facility] Last Admin: 05/24/19 10:22 Dose: 81 mg Atenolol (Tenormin -) 50 mg PO DAILY [facility] Last Admin: 05/24/19 10:22 Dose: 50 mg Atorvastatin Calcium (Lipitor -) 20 mg PO HS [facility] Last Admin: 05/24/19 22:23 Dose: 20 mg Budesonide/Formoterol Fumarate (Symbicort 160/4.5mcg -) 2 puff IH BID [facility] Last Admin: 05/24/19 22:23 Dose: 2 puff Ferrous Sulfate (Feosol -) 325 mg PO BIDWM [facility] Last Admin: 05/24/19 18:16 Dose: 325 mg Furosemide (Lasix Injection -) 40 mg IVPUSH DAILY [facility] Last Admin: 05/24/19 10:23 Dose: 40 mg Heparin Sodium (Porcine) (Heparin -) 5,000 unit SQ BID [facility] Last Admin: 05/24/19 22:23 Dose: 5,000 unit Ceftriaxone Sodium 1 gm/ (Dextrose) 50 mls @ 100 mls/hr IVPB DAILY [facility] Last Admin: 05/24/19 10:21 Dose: 100 mls/hr Lactobacillus Acidophilus (Bacid -) 1 tab PO DAILY [facility] Last Admin: 05/24/19 10:21 Dose: 1 tab Lisinopril (Prinivil) 5 mg PO DAILY [facility] Last Admin: 08/08/19 10:22 Dose: 5 mg Loperamide HCl (Imodium -) 2 mg PO Q8H PRN PRN Reason: DIARRHEA Pantoprazole Sodium (Protonix -) 40 mg PO DAILY [facility] Last Admin: 05/24/19 10:21 Dose: 40 mg Prednisone (Deltasone -) 5 mg PO DAILY [facility] Last Admin: 05/24/19 10:21 Dose: 5 mg Sodium Chloride ([place] Nasal [place] -) 2 spray NS BID PRN PRN Reason: NASAL CONGESTION Last Admin: 05/24/19 11:17 Dose: 2 spray Spironolactone (Aldactone -) 25 mg PO DAILY [facility] Last Admin: 05/24/19 10:22 Dose: 25 mg - Objective Vital Signs: Vital Signs Temperature 98.4 F 05/25/19 07:47 Pulse Rate 82 05/25/19 07:47 Respiratory Rate 18 05/25/19 07:47 Blood Pressure 103/62 05/25/19 07:47 O2 Sat by Pulse Oximetry (%) 99 05/24/19 21:00 Constitutional: Yes: No Distress Neck: Yes: Other (+ JVD) Respiratory: Yes: Other (decreased breath sounds bases, mild expiratory wheezing ) Gastrointestinal: Yes: Soft Edema: Yes Edema: LLE: 1+, RLE: 1+ Neurological: Yes: Alert, Oriented Labs: CBC, BMP 05/24/19 06:40 05/24/19 06:40 INR, PTT INR 1.18 (0.83-1.09) H 05/19/19 16:45 - ....Imaging Chest X-ray: Pending EKG: Image Reviewed Assessment/Plan CXR mild congestive changes Echo 07/2018 nl LV function, LA mod/severely dilated. RA mod dilated. Mod MR. Mod TR. RVSP elevated at 74 mmHG.; similar findings on this admission tele: AF, HR controlled Assessment/Plan 81F h/o afib, CHF, COPD (on home O2 2L), HTN, pulm HTN, hematuria s/p b/l perc nephrostomy sent from [place] for chest tightness, shortness of breath, UTI Acute on chronic diastolic HF exacerbation, pulm sarcoid, advanced COPD, cor pulmonale with RV failure, history of chronic hypoxemic/hypercapneic resp failure: -baseline BNP 1K-10K range -cont lasix 40 IV daily, Cr stable, edema and SOB improving afib: average rate 80bpm - HR control good--cont atenolol - As per prior admission in 12/2018, holding eliquis for hx of severe hematuria, anemia - cont aspirin UTI -As per ID Presumed underlying cad, prior type II NSTEMI 2018 (sec to hypotensive episode): -deferred invasive CAD mgmt approach given poor functional status with competing mortality limitations from severe lung dz, low likelihood to improve prognosis, and risks > benefits (including bleeding, AIN) -treated with ASA, statin, BB -chronic non-cardiac CP on mult prior admits--sec to acute flare of pulm sarcoid vs acute cor pulmonale exacerbations. similar presentation currently with no ischemic changes on ekg, trop neg. -Again w/ chest pain this AM. -ECG unchanged. -CXR to be repeated, cycle cardiac enzymes x 2 sets
--- NOTE | 2019-05-25 09:43 | PN ---
Progress Note, Physician History of Present Illness: stable chest pain complaint - Current Medication List Current Medications: Active Medications Acetaminophen (Tylenol -) 650 mg PO Q6H PRN PRN Reason: PAIN 1-3 Last Admin: 05/21/19 05:34 Dose: 650 mg Albuterol Sulfate (Ventolin 0.083% Nebulizer Soln -) 1 amp NEB Q4H PRN PRN Reason: SHORT OF BREATH/WHEEZING Albuterol/Ipratropium (Duoneb -) 1 amp NEB RQID [facility] Last Admin: 05/25/19 07:25 Dose: Not Given Aspirin (Ecotrin -) 81 mg PO DAILY [facility] Last Admin: 05/24/19 10:22 Dose: 81 mg Atenolol (Tenormin -) 50 mg PO DAILY [facility] Last Admin: 05/24/19 10:22 Dose: 50 mg Atorvastatin Calcium (Lipitor -) 20 mg PO HS [facility] Last Admin: 05/24/19 22:23 Dose: 20 mg Budesonide/Formoterol Fumarate (Symbicort 160/4.5mcg -) 2 puff IH BID [facility] Last Admin: 05/24/19 22:23 Dose: 2 puff Ferrous Sulfate (Feosol -) 325 mg PO BIDWM [facility] Last Admin: 05/24/19 18:16 Dose: 325 mg Furosemide (Lasix Injection -) 40 mg IVPUSH DAILY [facility] Last Admin: 05/24/19 10:23 Dose: 40 mg Heparin Sodium (Porcine) (Heparin -) 5,000 unit SQ BID [facility] Last Admin: 05/24/19 22:23 Dose: 5,000 unit Ceftriaxone Sodium 1 gm/ (Dextrose) 50 mls @ 100 mls/hr IVPB DAILY [facility] Last Admin: 05/24/19 10:21 Dose: 100 mls/hr Lactobacillus Acidophilus (Bacid -) 1 tab PO DAILY [facility] Last Admin: 05/24/19 10:21 Dose: 1 tab Lisinopril (Prinivil) 5 mg PO DAILY [facility] Last Admin: 05/24/19 10:22 Dose: 5 mg Loperamide HCl (Imodium -) 2 mg PO Q8H PRN PRN Reason: DIARRHEA Pantoprazole Sodium (Protonix -) 40 mg PO DAILY [facility] Last Admin: 05/24/19 10:21 Dose: 40 mg Prednisone (Deltasone -) 5 mg PO DAILY [facility] Last Admin: 05/24/19 10:21 Dose: 5 mg Sodium Chloride ([facility] Nasal [facility] -) 2 spray NS BID PRN PRN Reason: NASAL CONGESTION Last Admin: 05/24/19 11:17 Dose: 2 spray Spironolactone (Aldactone -) 25 mg PO DAILY [facility] Last Admin: 05/24/19 10:22 Dose: 25 mg - Objective Vital Signs: Vital Signs Temperature 98.4 F 05/25/19 07:47 Pulse Rate 82 05/25/19 07:47 Respiratory Rate 18 05/25/19 07:47 Blood Pressure 103/62 05/25/19 07:47 O2 Sat by Pulse Oximetry (%) 99 05/24/19 21:00 Constitutional: Yes: Anxious, Mild Distress Cardiovascular: Yes: S1, S2 Respiratory: Yes: Regular, On Nasal O2, Poor Air Entry Gastrointestinal: Yes: Normal Bowel Sounds, Soft Musculoskeletal: Yes: WNL Extremities: Yes: WNL Neurological: Yes: Alert, Oriented Psychiatric: Yes: Alert, Oriented Labs: CBC, BMP 05/24/19 06:40 05/24/19 06:40 INR, PTT INR 1.18 (0.83-1.09) H 05/19/19 16:45 Assessment/Plan Problem List - Problems (1) UTI (urinary tract infection) Code(s): N39.0 - URINARY TRACT INFECTION, SITE NOT SPECIFIED Qualifiers: Urinary tract infection type: site unspecified Hematuria presence: with hematuria Qualified Code(s): N39.0 - Urinary tract infection, site not specified; R31.9 - Hematuria, unspecified (2) CHF (congestive heart failure) Code(s): I50.9 - HEART FAILURE, UNSPECIFIED Qualifiers: Heart failure type: unspecified Heart failure chronicity: unspecified Qualified Code(s): I50.9 - Heart failure, unspecified (3) Atrial fibrillation Code(s): I48.91 - UNSPECIFIED ATRIAL FIBRILLATION Qualifiers: Atrial fibrillation type: permanent Qualified Code(s): I48.2 - Chronic atrial fibrillation (4) COPD (chronic obstructive pulmonary disease) Code(s): J44.9 - CHRONIC OBSTRUCTIVE PULMONARY DISEASE, UNSPECIFIED Qualifiers: COPD type: unspecified COPD Qualified Code(s): J44.9 - Chronic obstructive pulmonary disease, unspecified (5) Coronary artery disease Code(s): I25.10 - ATHSCL HEART DISEASE OF [place] CORONARY ARTERY W/O ANG PCTRS Qualifiers: Coronary Disease-Associated Artery/Lesion type: [place] artery [place] vs. transplanted heart: [place] heart Associated angina: without angina Qualified Code(s): I25.10 - Atherosclerotic heart disease of [place] coronary artery without angina pectoris (6) Hypercholesterolemia Code(s): E78.00 - PURE HYPERCHOLESTEROLEMIA, UNSPECIFIED (7) Hypertension Code(s): I10 - ESSENTIAL (PRIMARY) HYPERTENSION Qualifiers: Hypertension type: essential hypertension Qualified Code(s): I10 - Essential (primary) hypertension (8) Pulmonary HTN Code(s): I27.20 - PULMONARY HYPERTENSION, UNSPECIFIED (9) Sarcoidosis Code(s): D86.9 - SARCOIDOSIS, UNSPECIFIED (10) SANAM (acute kidney injury) Code(s): N17.9 - ACUTE KIDNEY FAILURE, UNSPECIFIED (11) Hypokalemia Code(s): E87.6 - HYPOKALEMIA (12) Hypoxia Code(s): R09.02 - HYPOXEMIA (13) Shortness of breath at rest Code(s): R06.02 - SHORTNESS OF BREATH Assessment/Plan 88 y.o. female [place] resident with PMH of CHF, AFIB (not on AC), CAD, HTN, HLD, Pulm HTN, Cor Pulmonale, respiratory failure, COPD, Sarcoidosis, anemia, b/l nephrostomy (removed), b/l stent placement in October 2018, previous ESBL + and VRE UTI, S/P cervical spine surgery with hardware presents with c/o SOB, b/l LE edema, and dysuria. Hypoxic, tachycardic, with evidence of pulmonary congestion and U/A suggestive of UTI Complicated UTI/ b/l stents (Hx of ESBL+/VRE) CHF Exacerbation Acute respiratory failure COPD Pulm HTN Sarcoidosis CAD AFIB Anemia plan will stop abx monitor nutrition physio rest as per the team
[2019-05-25] MEDS: LISINOPRIL 5 MG TABLET (FP) PO SCH (10:52)
[2019-05-25] MEDS: ASPIRIN COATED 81 MG TABLET.EC PO SCH (10:56)
[2019-05-25] MEDS: LACTOBACILLUS ACIDOPHILUS 1 TABLET PO SCH (10:56)
[2019-05-25] MEDS: ATENOLOL 50 MG TABLET (FP) PO SCH (10:56)
[2019-05-25] MEDS: SPIRONOLACTONE 25 MG TABLET (FP) PO SCH (10:56)
[2019-05-25] MEDS: FERROUS SO4 325 MG TABLET (FP) PO SCH ×2 (10:56→17:53)
[2019-05-25] MEDS: predniSONE 5 MG TABLET (UD) PO SCH (10:56)
[2019-05-25] MEDS: PANTOPRAZOLE 40 MG TABLET (FP) PO SCH (10:56)
[2019-05-25] MEDS: HEPARIN NA (PORCINE) 5,000 UNITS/ML 1ML VIAL SQ SCH ×2 (10:57→22:25)
[2019-05-25] MEDS: FUROSEMIDE 40 MG/4 ML INJECTABLE VIAL IVPUSH SCH (10:57)
[2019-05-25] MEDS: BUDESONIDE/FORMETEROL FUMARATE 160/4.5 mcg INHALER IH SCH ×2 (10:57→22:24)
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
--- NOTE | 2019-05-25 13:52 | EKG ---
Test Reason : Blood Pressure : / mmHG Vent. Rate : 087 BPM Atrial Rate : 115 BPM P-R Int : 000 ms QRS Dur : 082 ms QT Int : 372 ms P-R-T Axes : 000 053 002 degrees QTc Int : 447 ms ATRIAL FIBRILLATION NONSPECIFIC T WAVE ABNORMALITY WHEN COMPARED WITH ECG OF 19-MAY-2019 16:39, NO SIGNIFICANT CHANGE WAS FOUND Confirmed by LUIS E ELIZABETH MD ([id number]) on 05/25/2019 1:52:09 PM Referred By: Confirmed By:LUIS E ELIZABETH MD
[2019-05-25] MEDS: ATORVASTATIN CA 20 MG TABLET (FP) PO SCH (22:24)
[2019-05-26 07:24] LABS: BLOOD UREA NITROGEN 14.6 mg/dL (7-18); CALCIUM 9.5 mg/dL (8.5-10.1); CREATININE 0.6 mg/dL (0.55-1.3); MAGNESIUM 2.2 mg/dL (1.8-2.4); POTASSIUM 4.5 mmol/L (3.5-5.1)
[2019-05-26 07:28] LABS: HEMATOCRIT 33.1 % (32.4-45.2); HEMOGLOBIN 9.8 GM/dL (10.7-15.3); MCH 21.5 pg (25.7-33.7); MCHC 29.6 g/dl (32.0-36.0); MEAN CELL VOLUME 72.7 fl (80-96); MEAN PLT VOLUME 9.5 fl (7.5-11.1); PLATELET COUNT 129 K/MM3 (134-434); RBC 4.55 M/mm3 (3.60-5.2); RDW 16.4 % (11.6-15.6); WHITE BLOOD COUNT 4.2 K/mm3 (4.0-10.0)
[2019-05-26] MEDS: ALBUTEROL SO4 2.5/IPRATROPIUM 0.5 INH SOL 3 ML VIAL.NEB. NEB SCH ×4 (08:42→20:30)
--- NOTE | 2019-05-26 09:37 | PN ---
Progress Note, Physician Chief Complaint: weight is down 3 lbs She denies any further CP Enzymes all neg TELE: AF, controlled b/t 70-90 on average w/ some pauses all < 3 seconds. - Current Medication List Current Medications: Active Medications Acetaminophen (Tylenol -) 650 mg PO Q6H PRN PRN Reason: PAIN 1-3 Last Admin: 05/21/19 05:34 Dose: 650 mg Albuterol Sulfate (Ventolin 0.083% Nebulizer Soln -) 1 amp NEB Q4H PRN PRN Reason: SHORT OF BREATH/WHEEZING Albuterol/Ipratropium (Duoneb -) 1 amp NEB RQID [facility] Last Admin: 05/26/19 08:42 Dose: 1 amp Aspirin (Ecotrin -) 81 mg PO DAILY [facility] Last Admin: 05/25/19 10:56 Dose: 81 mg Atenolol (Tenormin -) 50 mg PO DAILY [facility] Last Admin: 05/25/19 10:56 Dose: 50 mg Atorvastatin Calcium (Lipitor -) 20 mg PO HS [facility] Last Admin: 05/25/19 22:24 Dose: 20 mg Budesonide/Formoterol Fumarate (Symbicort 160/4.5mcg -) 2 puff IH BID [facility] Last Admin: 05/25/19 22:24 Dose: 2 puff Ferrous Sulfate (Feosol -) 325 mg PO BIDWM [facility] Last Admin: 05/25/19 17:53 Dose: 325 mg Furosemide (Lasix Injection -) 40 mg IVPUSH DAILY [facility] Last Admin: 05/25/19 10:57 Dose: 40 mg Heparin Sodium (Porcine) (Heparin -) 5,000 unit SQ BID [facility] Last Admin: 05/25/19 22:25 Dose: 5,000 unit Lactobacillus Acidophilus (Bacid -) 1 tab PO DAILY [facility] Last Admin: 05/25/19 10:56 Dose: 1 tab Lisinopril (Prinivil) 5 mg PO DAILY [facility] Last Admin: 05/25/19 10:52 Dose: Not Given Loperamide HCl (Imodium -) 2 mg PO Q8H PRN PRN Reason: DIARRHEA Pantoprazole Sodium (Protonix -) 40 mg PO DAILY [facility] Last Admin: 05/25/19 10:56 Dose: 40 mg Prednisone (Deltasone -) 5 mg PO DAILY [facility] Last Admin: 05/25/19 10:56 Dose: 5 mg Sodium Chloride ([place] Nasal [place] -) 2 spray NS BID PRN PRN Reason: NASAL CONGESTION Last Admin: 05/24/19 11:17 Dose: 2 spray Spironolactone (Aldactone -) 25 mg PO DAILY [facility] Last Admin: 05/25/19 10:56 Dose: 25 mg - Objective Vital Signs: Vital Signs Temperature 98.2 F 05/26/19 06:00 Pulse Rate 72 05/26/19 06:00 Respiratory Rate 20 05/26/19 06:00 Blood Pressure 105/51 L 05/26/19 06:00 O2 Sat by Pulse Oximetry (%) 100 05/25/19 21:00 Constitutional: Yes: No Distress, Calm Cardiovascular: Yes: Pulse Irregular Respiratory: Yes: Other (rales resolved.) Gastrointestinal: Yes: Soft Edema: Yes Edema: LLE: 1+, RLE: 1+ Neurological: Yes: Alert, Oriented Labs: CBC, BMP 05/26/19 06:15 05/26/19 06:15 INR, PTT INR 1.18 (0.83-1.09) H 05/19/19 16:45 - ....Imaging EKG: Image Reviewed Assessment/Plan Assessment/Plan 81F h/o afib, CHF, COPD (on home O2 2L), HTN, pulm HTN, hematuria s/p b/l perc nephrostomy sent from [place] for chest tightness, shortness of breath, UTI Acute on chronic diastolic HF exacerbation, pulm sarcoid, advanced COPD, cor pulmonale with RV failure, history of chronic hypoxemic/hypercapneic resp failure: -baseline BNP 1K-10K range -cont lasix 40 IV daily today, switch to 80mg PO daily tomorrow. AF: average rates controlled. - HR control good--cont atenolol - As per prior admission in 12/2018, holding eliquis for hx of severe hematuria, anemia - cont aspirin UTI -As per ID Presumed underlying cad, prior type II NSTEMI 2018 (sec to hypotensive episode): -deferred invasive CAD mgmt approach given poor functional status with competing mortality limitations from severe lung dz, low likelihood to improve prognosis, and risks > benefits (including bleeding, AIN) -treated with ASA, statin, BB -chronic non-cardiac CP on mult prior admits--sec to acute flare of pulm sarcoid vs acute cor pulmonale exacerbations. similar presentation currently with no ischemic changes on ekg, trop neg. -Again w/ chest pain on 05/26, atypical. ECG was unchanged, enzymes all negative -CXR w/ mild improvement. -No further w/u at this time
[2019-05-26] MEDS: FERROUS SO4 325 MG TABLET (FP) PO SCH ×2 (10:26→17:59)
[2019-05-26] MEDS: LACTOBACILLUS ACIDOPHILUS 1 TABLET PO SCH (10:26)
[2019-05-26] MEDS: ATENOLOL 50 MG TABLET (FP) PO SCH (10:26)
[2019-05-26] MEDS: ASPIRIN COATED 81 MG TABLET.EC PO SCH (10:26)
[2019-05-26] MEDS: SPIRONOLACTONE 25 MG TABLET (FP) PO SCH (10:26)
[2019-05-26] MEDS: LISINOPRIL 5 MG TABLET (FP) PO SCH (10:27)
[2019-05-26] MEDS: predniSONE 5 MG TABLET (UD) PO SCH (10:27)
[2019-05-26] MEDS: BUDESONIDE/FORMETEROL FUMARATE 160/4.5 mcg INHALER IH SCH ×2 (10:28→22:00)
[2019-05-26] MEDS: HEPARIN NA (PORCINE) 5,000 UNITS/ML 1ML VIAL SQ SCH ×2 (10:28→21:59)
[2019-05-26] MEDS: PANTOPRAZOLE 40 MG TABLET (FP) PO SCH (10:28)
[2019-05-26] MEDS: FUROSEMIDE 40 MG/4 ML INJECTABLE VIAL IVPUSH SCH (10:28)
--- NOTE | 2019-05-26 10:42 | PN ---
Progress Note (short form) - Note Progress Note: feeling better today. denies CP, SOB, fever, chills, N/V/C/D or epistaxis Current Medications Generic Name Dose Route Start Last Admin Trade Name Freq PRN Reason Stop Dose Admin Acetaminophen 650 mg 05/20/19 07:57 05/21/19 05:34 Tylenol - PO 650 mg Q6H PRN Administration PAIN 1-3 Albuterol Sulfate 1 amp 05/23/19 07:49 Ventolin 0.083% Nebulizer Soln - NEB Q4H PRN SHORT OF BREATH/WHEEZING Albuterol/Ipratropium 1 amp 05/23/19 08:00 05/26/19 08:42 Duoneb - NEB 1 amp RQID LISA Administration Aspirin 81 mg 05/20/19 10:00 05/26/19 10:26 Ecotrin - PO 81 mg DAILY LISA Administration Atenolol 50 mg 05/20/19 10:00 05/26/19 10:26 Tenormin - PO 50 mg DAILY LISA Administration Atorvastatin Calcium 20 mg 05/19/19 22:00 05/25/19 22:24 Lipitor - PO 20 mg HS LISA Administration Budesonide/Formoterol Fumarate 2 puff 05/19/19 22:00 05/26/19 10:28 Symbicort 160/4.5mcg - IH 2 puff BID LISA Administration Ferrous Sulfate 325 mg 05/20/19 17:30 05/26/19 10:26 Feosol - PO 325 mg BIDWM LISA Administration Furosemide 40 mg 05/22/19 10:00 05/26/19 10:28 Lasix Injection - IVPUSH 40 mg DAILY LISA Administration Heparin Sodium (Porcine) 5,000 unit 05/20/19 22:00 05/26/19 10:28 Heparin - SQ 5,000 unit BID LISA Administration Lactobacillus Acidophilus 1 tab 05/22/19 13:30 05/26/19 10:26 Bacid - PO 1 tab DAILY LISA Administration Lisinopril 5 mg 05/20/19 10:00 05/26/19 10:27 Prinivil PO 5 mg DAILY LISA Administration Loperamide HCl 2 mg 05/23/19 11:11 Imodium - PO Q8H PRN DIARRHEA Pantoprazole Sodium 40 mg 05/21/19 11:40 05/26/19 10:28 Protonix - PO 40 mg DAILY LISA Administration Prednisone 5 mg 05/20/19 10:00 05/26/19 10:27 Deltasone - PO 5 mg DAILY LISA Administration Sodium Chloride 2 spray 05/24/19 05:16 05/24/19 11:17 [place] Nasal [place] - NS 2 spray BID PRN Administration NASAL CONGESTION Spironolactone 25 mg 05/20/19 10:00 05/26/19 10:26 Aldactone - PO 25 mg DAILY LISA Administration Last Vital Signs Temp Pulse Resp BP Pulse Ox 98.3 F 107 H 20 110/60 100 05/26/19 10:40 05/26/19 10:40 05/26/19 10:40 05/26/19 10:40 05/25/19 21:00 Intake & Output 05/23/19 05/24/19 05/25/19 05/26/19 23:59 23:59 23:59 23:59 Intake Total 900 750 500 100 Balance 900 750 500 100 Weight 168 lb 3.2 oz 166 lb 163 lb General NAD CV S1 S2 RRR no murmur/rub/gallop Lungs decreased breath sounds L base. no wheezing/rales/rhonchi Abdomen soft NT/ND normoactive BS Extremities 2+ pitting edema CBCD WBC 4.2 K/mm3 (4.0-10.0) 05/26/19 06:15 RBC 4.55 M/mm3 (3.60-5.2) 05/26/19 06:15 Hgb 9.8 GM/dL (10.7-15.3) L 05/26/19 06:15 Hct 33.1 % (32.4-45.2) 05/26/19 06:15 MCV 72.7 fl (80-96) L 05/26/19 06:15 MCHC 29.6 g/dl (32.0-36.0) L 05/26/19 06:15 RDW 16.4 % (11.6-15.6) H 05/26/19 06:15 Plt Count 129 K/MM3 (134-434) L 05/26/19 06:15 MPV 9.5 fl (7.5-11.1) 05/26/19 06:15 CMP Sodium 140 mmol/L (136-145) 05/26/19 06:15 Potassium 4.5 mmol/L (3.5-5.1) 05/26/19 06:15 Chloride 95 mmol/L (98-107) L 05/26/19 06:15 Carbon Dioxide 44 mmol/L (21-32) H 05/26/19 06:15 Anion Gap 1 MMOL/L (8-16) L 05/26/19 06:15 BUN 14.6 mg/dL (7-18) 05/26/19 06:15 Creatinine 0.6 mg/dL (0.55-1.3) 05/26/19 06:15 Calcium 9.5 mg/dL (8.5-10.1) 05/26/19 06:15 Total Bilirubin 0.5 mg/dL (0.2-1) 05/20/19 06:00 AST 14 U/L (15-37) L 05/20/19 06:00 ALT 14 U/L (13-61) 05/20/19 06:00 Alkaline Phosphatase 55 U/L (45-117) 05/20/19 06:00 Total Protein 5.6 g/dl (6.4-8.2) L 05/20/19 06:00 Albumin 3.0 g/dl (3.4-5.0) L 05/20/19 06:00 ASSESSMENT AND PLAN: 88 year old female with history of CRF sec to COPD (on 2-3L O2), Pulmonary Sarcoid, HTN, Atrial Fibrillation, HLD, Pulmonary HTN, Chronic Diastolic CHF, cor pulmonale with RV failure, Hx of ESBL/VRE UTI, s/p bilateral nephrostomies ( reversed) and bilateral ureteral stenting, presented to ED with worsening SOB and LE edema with fluid weeping from skin of LEs. SpO2 reportedly in 70s at [place], here in 90s. 1. Acute Respiratory Distress secondary to Acute on Chronic Diastolic CHF/R sided HF - initially requiring BiPAP, now comfortable on NC. saturating 97% on 3L NC which is home dose. repeat Echo showing no pericardial effusion. repeat CXR due to AM episode. on pred 5mg for sarcoid. cont current treatment 2. Diarrhea- likely abx assoc. now improved with bacid. will cont. 3. Klebsiella UTI- completed ceftriaxone for 7 days. ID on board 4. Acute on chronic diastolic CHF-looks about the same as yesterday. will d/w cardio about optimizing medications. cont with lasix IV with plan to transition to po tomorrow. daily weights. monitor electrolytes. cardio on board. appears dry weight is about 140 from previous hospitalizations. 5. epistaxis- due to mucosal irritation from chronic oxygen use. hgb is stable. switch to humidified air. no repeat episodes 6. HTN- controlled. 7. COPD- on pulmonary sarcoid. on pred 5mg. cont 8. Dyslipidemia - Continue Atorvastatin 9. Atrial Fibrillation- not on anticoag due to hx of hematuria. cont current treatment. 10. Hypomagnesemia - resolved s/p repletion 11. Microcytic Anemia,-hgb stable. no signs of bleeding. no indication for transfusion 12. DVT Px - Heparin SQ 13. she does not want to return to [facility]. RENITA sent out to alternative facilities. will await for response on Tuesday. Explained to patient if no beds available at other facilities will need to return to [facility] Visit type - Emergency Visit Emergency Visit: Yes ED Registration Date: 05/19/19 Care time: The patient presented to the Emergency Department on the above date and was hospitalized for further evaluation of their emergent condition. - New Patient This patient is new to me today: No - Critical Care Critical Care patient: No - Discharge Referral Referred to [facility] Med P.C.: No
--- NOTE | 2019-05-26 13:01 | PN ---
Progress Note, Physician History of Present Illness: stable doing well - Current Medication List Current Medications: Active Medications Acetaminophen (Tylenol -) 650 mg PO Q6H PRN PRN Reason: PAIN 1-3 Last Admin: 05/21/19 05:34 Dose: 650 mg Albuterol Sulfate (Ventolin 0.083% Nebulizer Soln -) 1 amp NEB Q4H PRN PRN Reason: SHORT OF BREATH/WHEEZING Albuterol/Ipratropium (Duoneb -) 1 amp NEB RQID [facility] Last Admin: 05/26/19 12:08 Dose: Not Given Aspirin (Ecotrin -) 81 mg PO DAILY [facility] Last Admin: 05/26/19 10:26 Dose: 81 mg Atenolol (Tenormin -) 50 mg PO DAILY [facility] Last Admin: 05/26/19 10:26 Dose: 50 mg Atorvastatin Calcium (Lipitor -) 20 mg PO HS [facility] Last Admin: 05/25/19 22:24 Dose: 20 mg Budesonide/Formoterol Fumarate (Symbicort 160/4.5mcg -) 2 puff IH BID [facility] Last Admin: 05/26/19 10:28 Dose: 2 puff Ferrous Sulfate (Feosol -) 325 mg PO BIDWM [facility] Last Admin: 05/26/19 10:26 Dose: 325 mg Furosemide (Lasix Injection -) 40 mg IVPUSH DAILY [facility] Last Admin: 05/26/19 10:28 Dose: 40 mg Heparin Sodium (Porcine) (Heparin -) 5,000 unit SQ BID [facility] Last Admin: 05/26/19 10:28 Dose: 5,000 unit Lactobacillus Acidophilus (Bacid -) 1 tab PO DAILY [facility] Last Admin: 05/26/19 10:26 Dose: 1 tab Lisinopril (Prinivil) 5 mg PO DAILY [facility] Last Admin: 05/26/19 10:27 Dose: 5 mg Loperamide HCl (Imodium -) 2 mg PO Q8H PRN PRN Reason: DIARRHEA Pantoprazole Sodium (Protonix -) 40 mg PO DAILY [facility] Last Admin: 05/26/19 10:28 Dose: 40 mg Prednisone (Deltasone -) 5 mg PO DAILY [facility] Last Admin: 05/26/19 10:27 Dose: 5 mg Sodium Chloride ([place] Nasal [place] -) 2 spray NS BID PRN PRN Reason: NASAL CONGESTION Last Admin: 05/24/19 11:17 Dose: 2 spray Spironolactone (Aldactone -) 25 mg PO DAILY [facility] Last Admin: 05/26/19 10:26 Dose: 25 mg - Objective Vital Signs: Vital Signs Temperature 98.3 F 05/26/19 10:40 Pulse Rate 107 H 05/26/19 10:40 Respiratory Rate 20 05/26/19 10:40 Blood Pressure 110/60 05/26/19 10:40 O2 Sat by Pulse Oximetry (%) 100 05/25/19 21:00 Constitutional: Yes: No Distress, Calm Cardiovascular: Yes: S1, S2 Respiratory: Yes: Regular, CTA Bilaterally, On Nasal O2 Gastrointestinal: Yes: Normal Bowel Sounds, Soft Musculoskeletal: Yes: WNL Extremities: Yes: WNL Neurological: Yes: Alert, Oriented Psychiatric: Yes: Alert, Oriented Labs: CBC, BMP 05/26/19 06:15 05/26/19 06:15 INR, PTT INR 1.18 (0.83-1.09) H 05/19/19 16:45 Assessment/Plan Problem List - Problems (1) UTI (urinary tract infection) Code(s): N39.0 - URINARY TRACT INFECTION, SITE NOT SPECIFIED Qualifiers: Urinary tract infection type: site unspecified Hematuria presence: with hematuria Qualified Code(s): N39.0 - Urinary tract infection, site not specified; R31.9 - Hematuria, unspecified (2) CHF (congestive heart failure) Code(s): I50.9 - HEART FAILURE, UNSPECIFIED Qualifiers: Heart failure type: unspecified Heart failure chronicity: unspecified Qualified Code(s): I50.9 - Heart failure, unspecified (3) Atrial fibrillation Code(s): I48.91 - UNSPECIFIED ATRIAL FIBRILLATION Qualifiers: Atrial fibrillation type: permanent Qualified Code(s): I48.2 - Chronic atrial fibrillation (4) COPD (chronic obstructive pulmonary disease) Code(s): J44.9 - CHRONIC OBSTRUCTIVE PULMONARY DISEASE, UNSPECIFIED Qualifiers: COPD type: unspecified COPD Qualified Code(s): J44.9 - Chronic obstructive pulmonary disease, unspecified (5) Coronary artery disease Code(s): I25.10 - ATHSCL HEART DISEASE OF [place] CORONARY ARTERY W/O ANG PCTRS Qualifiers: Coronary Disease-Associated Artery/Lesion type: [place] artery [place] vs. transplanted heart: kake heart Associated angina: without angina Qualified Code(s): I25.10 - Atherosclerotic heart disease of [place] coronary artery without angina pectoris (6) Hypercholesterolemia Code(s): E78.00 - PURE HYPERCHOLESTEROLEMIA, UNSPECIFIED (7) Hypertension Code(s): I10 - ESSENTIAL (PRIMARY) HYPERTENSION Qualifiers: Hypertension type: essential hypertension Qualified Code(s): I10 - Essential (primary) hypertension (8) Pulmonary HTN Code(s): I27.20 - PULMONARY HYPERTENSION, UNSPECIFIED (9) Sarcoidosis Code(s): D86.9 - SARCOIDOSIS, UNSPECIFIED (10) SANAM (acute kidney injury) Code(s): N17.9 - ACUTE KIDNEY FAILURE, UNSPECIFIED (11) Hypokalemia Code(s): E87.6 - HYPOKALEMIA (12) Hypoxia Code(s): R09.02 - HYPOXEMIA (13) Shortness of breath at rest Code(s): R06.02 - SHORTNESS OF BREATH Assessment/Plan 88 y.o. female [place] resident with PMH of CHF, AFIB (not on AC), CAD, HTN, HLD, Pulm HTN, Cor Pulmonale, respiratory failure, COPD, Sarcoidosis, anemia, b/l nephrostomy (removed), b/l stent placement in October 2018, previous ESBL + and VRE UTI, S/P cervical spine surgery with hardware presents with c/o SOB, b/l LE edema, and dysuria. Hypoxic, tachycardic, with evidence of pulmonary congestion and U/A suggestive of UTI Complicated UTI/ b/l stents (Hx of ESBL+/VRE) CHF Exacerbation Acute respiratory failure COPD Pulm HTN Sarcoidosis CAD AFIB Anemia plan continue current mgmt stable
[2019-05-26] MEDS: ATORVASTATIN CA 20 MG TABLET (FP) PO SCH (21:59)
[2019-05-27] MEDS: ALBUTEROL SO4 2.5/IPRATROPIUM 0.5 INH SOL 3 ML VIAL.NEB. NEB SCH ×4 (08:01→20:39)
[2019-05-27 08:26] LABS: BLOOD UREA NITROGEN 19.8 mg/dL (7-18); CALCIUM 9.3 mg/dL (8.5-10.1); CREATININE 0.6 mg/dL (0.55-1.3); POTASSIUM 3.7 mmol/L (3.5-5.1)
--- NOTE | 2019-05-27 09:13 | PN ---
Teaching Attending Note Name of Resident: Maci Boyer ATTENDING PHYSICIAN STATEMENT I saw and evaluated the patient. I reviewed the resident's note and discussed the case with the resident. I agree with the resident's findings and plan as documented. SUBJECTIVE:worried about returing to [place] as she does not like it there. OBJECTIVE: Last Vital Signs Temp Pulse Resp BP Pulse Ox 98.1 F 86 20 118/76 99 05/27/19 06:00 05/27/19 06:00 05/27/19 06:00 05/27/19 06:00 05/26/19 21:00 Intake & Output 05/24/19 05/25/19 05/26/19 05/27/19 23:59 23:59 23:59 23:59 Intake Total 750 500 560 120 Balance 750 500 560 120 Weight 168 lb 3.2 oz 166 lb 163 lb 163 lb 0.2 oz General NAD Lungs CTA B/L no wheezing/rales/rhonchi Extremities 2+ pitting edema B/L ASSESSMENT AND PLAN: 88 year old female with history of CRF sec to COPD (on 2-3L O2), Pulmonary Sarcoid, HTN, Atrial Fibrillation, HLD, Pulmonary HTN, Chronic Diastolic CHF, cor pulmonale with RV failure, Hx of ESBL/VRE UTI, s/p bilateral nephrostomies ( reversed) and bilateral ureteral stenting, presented to ED with worsening SOB and LE edema with fluid weeping from skin of LEs. SpO2 reportedly in 70s at [place], here in 90s. 1. Acute Respiratory Distress secondary to Acute on Chronic Diastolic CHF/R sided HF - initially requiring BiPAP, now comfortable on NC. saturating 97% on 3L NC which is home dose. repeat Echo showing no pericardial effusion. on pred 5mg for sarcoid. cont current treatment 2. Diarrhea- likely abx assoc. now improved with bacid. will cont. 3. Klebsiella UTI- completed ceftriaxone for 7 days. ID on board 4. Acute on chronic diastolic CHF- weight stable. lasix transitioned to po today. unable to give betablocker due to COPD. on aldactone/statin. Daily weights. monitor electrolytes. cardio on board. 5. epistaxis- due to mucosal irritation from chronic oxygen use. hgb is stable. switch to humidified air. no repeat episodes 6. HTN- controlled. 7. COPD- on pulmonary sarcoid. on pred 5mg. cont 8. Dyslipidemia - Continue Atorvastatin 9. Atrial Fibrillation- not on anticoag due to hx of hematuria. cont current treatment. 10. Hypomagnesemia - resolved s/p repletion 11. Microcytic Anemia,-hgb stable. no signs of bleeding. no indication for transfusion 12. DVT Px - Heparin SQ 13. she does not want to return to [facility]. RENITA sent out to alternative facilities. will await for response on Tuesday. Explained to patient if no beds available at other facilities will need to return to [facility]
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
--- NOTE | 2019-05-27 09:36 | PN ---
Progress Note, Physician Chief Complaint: no new complaints Weight is stable - Current Medication List Current Medications: Active Medications Acetaminophen (Tylenol -) 650 mg PO Q6H PRN PRN Reason: PAIN 1-3 Last Admin: 05/21/19 05:34 Dose: 650 mg Albuterol Sulfate (Ventolin 0.083% Nebulizer Soln -) 1 amp NEB Q4H PRN PRN Reason: SHORT OF BREATH/WHEEZING Albuterol/Ipratropium (Duoneb -) 1 amp NEB RQID [facility] Last Admin: 05/27/19 08:01 Dose: Not Given Aspirin (Ecotrin -) 81 mg PO DAILY [facility] Last Admin: 05/26/19 10:26 Dose: 81 mg Atenolol (Tenormin -) 50 mg PO DAILY [facility] Last Admin: 05/26/19 10:26 Dose: 50 mg Atorvastatin Calcium (Lipitor -) 20 mg PO HS [facility] Last Admin: 05/26/19 21:59 Dose: 20 mg Budesonide/Formoterol Fumarate (Symbicort 160/4.5mcg -) 2 puff IH BID [facility] Last Admin: 05/26/19 22:00 Dose: 2 puff Ferrous Sulfate (Feosol -) 325 mg PO BIDWM [facility] Last Admin: 05/26/19 17:59 Dose: 325 mg Furosemide (Lasix -) 80 mg PO DAILY [facility] Heparin Sodium (Porcine) (Heparin -) 5,000 unit SQ BID [facility] Last Admin: 05/26/19 21:59 Dose: 5,000 unit Lactobacillus Acidophilus (Bacid -) 1 tab PO DAILY [facility] Last Admin: 05/26/19 10:26 Dose: 1 tab Lisinopril (Prinivil) 5 mg PO DAILY [facility] Last Admin: 05/26/19 10:27 Dose: 5 mg Loperamide HCl (Imodium -) 2 mg PO Q8H PRN PRN Reason: DIARRHEA Pantoprazole Sodium (Protonix -) 40 mg PO DAILY [facility] Last Admin: 05/26/19 10:28 Dose: 40 mg Prednisone (Deltasone -) 5 mg PO DAILY [facility] Last Admin: 05/26/19 10:27 Dose: 5 mg Sodium Chloride ([place] Nasal [place] -) 2 spray NS BID PRN PRN Reason: NASAL CONGESTION Last Admin: 05/24/19 11:17 Dose: 2 spray Spironolactone (Aldactone -) 25 mg PO DAILY [facility] Last Admin: 05/26/19 10:26 Dose: 25 mg - Objective Vital Signs: Vital Signs Temperature 98.1 F 05/27/19 06:00 Pulse Rate 86 05/27/19 06:00 Respiratory Rate 20 05/27/19 06:00 Blood Pressure 118/76 05/27/19 06:00 O2 Sat by Pulse Oximetry (%) 99 05/26/19 21:00 Constitutional: Yes: No Distress Eyes: Yes: Conjunctiva Clear Cardiovascular: Yes: Pulse Irregular, JVD Respiratory: Yes: Other (rales at left base today) Gastrointestinal: Yes: Soft Edema: Yes Edema: LLE: 2+, RLE: 2+ Neurological: Yes: Alert, Oriented Labs: CBC, BMP 05/26/19 06:15 05/27/19 07:05 INR, PTT INR 1.18 (0.83-1.09) H 05/19/19 16:45 - ....Imaging EKG: Image Reviewed Assessment/Plan Assessment/Plan 81F h/o afib, CHF, COPD (on home O2 2L), HTN, pulm HTN, hematuria s/p b/l perc nephrostomy sent from [place] for chest tightness, shortness of breath, UTI Acute on chronic diastolic HF exacerbation, pulm sarcoid, advanced COPD, cor pulmonale with RV failure, history of chronic hypoxemic/hypercapneic resp failure: -baseline BNP 1K-10K range -Plans to change to PO Lasix today, will adjust to 80mg PO BID as still with JVD and edema. Daily BMP to monitor renal fx/lytes AF: average rates controlled. Some pauses < 3 seconds. - HR control good--cont atenolol - As per prior admission in 12/2018, holding eliquis for hx of severe hematuria, anemia - cont aspirin UTI -As per ID Presumed underlying cad, prior type II NSTEMI 2018 (sec to hypotensive episode): -deferred invasive CAD mgmt approach given poor functional status with competing mortality limitations from severe lung dz, low likelihood to improve prognosis, and risks > benefits (including bleeding, AIN) -treated with ASA, statin, BB -chronic non-cardiac CP on mult prior admits--sec to acute flare of pulm sarcoid vs acute cor pulmonale exacerbations. similar presentation currently with no ischemic changes on ekg, trop neg. -Again w/ chest pain on 05/26, atypical. ECG was unchanged, enzymes all negative -CXR w/ mild improvement. -No further w/u at this time
[2019-05-27] MEDS ORDERED: FUROSEMIDE 40 MG/5 ML UNIT-DOSE CUP PO SCH (09:39)
[2019-05-27] MEDS ORDERED: PT OWN MED DRAWER 7, Y5N ONE (09:43)
[2019-05-27] MEDS: FERROUS SO4 325 MG TABLET (FP) PO SCH ×2 (09:58→18:04)
[2019-05-27] MEDS: SPIRONOLACTONE 25 MG TABLET (FP) PO SCH (09:59)
[2019-05-27] MEDS: LISINOPRIL 5 MG TABLET (FP) PO SCH (09:59)
[2019-05-27] MEDS: LACTOBACILLUS ACIDOPHILUS 1 TABLET PO SCH (09:59)
[2019-05-27] MEDS: predniSONE 5 MG TABLET (UD) PO SCH (09:59)
[2019-05-27] MEDS: PANTOPRAZOLE 40 MG TABLET (FP) PO SCH (09:59)
[2019-05-27] MEDS: FUROSEMIDE 40 MG TABLET (FP) PO SCH ×2 (09:59→13:49)
[2019-05-27] MEDS ORDERED: FUROSEMIDE 40 MG TABLET (FP) PO SCH (10:00)
[2019-05-27] MEDS: HEPARIN NA (PORCINE) 5,000 UNITS/ML 1ML VIAL SQ SCH ×2 (10:00→21:15)
[2019-05-27] MEDS: BUDESONIDE/FORMETEROL FUMARATE 160/4.5 mcg INHALER IH SCH ×2 (10:00→21:15)
[2019-05-27] MEDS: ATENOLOL 50 MG TABLET (FP) PO SCH (10:00)
[2019-05-27] MEDS: ASPIRIN COATED 81 MG TABLET.EC PO SCH (10:00)
--- NOTE | 2019-05-27 12:41 | PN ---
Progress Note, Physician History of Present Illness: comfortable sitting in chair still sob - Current Medication List Current Medications: Active Medications Acetaminophen (Tylenol -) 650 mg PO Q6H PRN PRN Reason: PAIN 1-3 Last Admin: 05/21/19 05:34 Dose: 650 mg Albuterol Sulfate (Ventolin 0.083% Nebulizer Soln -) 1 amp NEB Q4H PRN PRN Reason: SHORT OF BREATH/WHEEZING Albuterol/Ipratropium (Duoneb -) 1 amp NEB RQID [facility] Last Admin: 05/27/19 12:03 Dose: Not Given Aspirin (Ecotrin -) 81 mg PO DAILY [facility] Last Admin: 05/27/19 10:00 Dose: 81 mg Atenolol (Tenormin -) 50 mg PO DAILY [facility] Last Admin: 05/27/19 10:00 Dose: 50 mg Atorvastatin Calcium (Lipitor -) 20 mg PO HS [facility] Last Admin: 05/26/19 21:59 Dose: 20 mg Budesonide/Formoterol Fumarate (Symbicort 160/4.5mcg -) 2 puff IH BID [facility] Last Admin: 05/27/19 10:00 Dose: 2 puff Ferrous Sulfate (Feosol -) 325 mg PO BIDWM [facility] Last Admin: 05/27/19 09:58 Dose: 325 mg Furosemide (Lasix -) 80 mg PO BID@0600,1400 [facility] Last Admin: 05/27/19 09:59 Dose: 80 mg Heparin Sodium (Porcine) (Heparin -) 5,000 unit SQ BID [facility] Last Admin: 05/27/19 10:00 Dose: 5,000 unit Lactobacillus Acidophilus (Bacid -) 1 tab PO DAILY [facility] Last Admin: 05/27/19 09:59 Dose: 1 tab Lisinopril (Prinivil) 5 mg PO DAILY [facility] Last Admin: 05/27/19 09:59 Dose: 5 mg Loperamide HCl (Imodium -) 2 mg PO Q8H PRN PRN Reason: DIARRHEA Pantoprazole Sodium (Protonix -) 40 mg PO DAILY [facility] Last Admin: 05/27/19 09:59 Dose: 40 mg Prednisone (Deltasone -) 5 mg PO DAILY [facility] Last Admin: 05/27/19 09:59 Dose: 5 mg Sodium Chloride ([place] Nasal [place] -) 2 spray NS BID PRN PRN Reason: NASAL CONGESTION Last Admin: 05/24/19 11:17 Dose: 2 spray Spironolactone (Aldactone -) 25 mg PO DAILY [facility] Last Admin: 05/27/19 09:59 Dose: 25 mg - Objective Vital Signs: Vital Signs Temperature 98.1 F 05/27/19 06:00 Pulse Rate 86 05/27/19 06:00 Respiratory Rate 20 05/27/19 10:00 Blood Pressure 118/76 05/27/19 06:00 O2 Sat by Pulse Oximetry (%) 97 05/27/19 10:00 Constitutional: Yes: Calm Cardiovascular: Yes: S1, S2 Respiratory: Yes: Regular, On Nasal O2, Poor Air Entry (bases) Gastrointestinal: Yes: Normal Bowel Sounds, Soft Musculoskeletal: Yes: WNL Extremities: Yes: WNL Neurological: Yes: Alert, Oriented Labs: CBC, BMP 05/26/19 06:15 05/27/19 07:05 INR, PTT INR 1.18 (0.83-1.09) H 05/19/19 16:45 Assessment/Plan Problem List - Problems (1) UTI (urinary tract infection) Code(s): N39.0 - URINARY TRACT INFECTION, SITE NOT SPECIFIED Qualifiers: Urinary tract infection type: site unspecified Hematuria presence: with hematuria Qualified Code(s): N39.0 - Urinary tract infection, site not specified; R31.9 - Hematuria, unspecified (2) CHF (congestive heart failure) Code(s): I50.9 - HEART FAILURE, UNSPECIFIED Qualifiers: Heart failure type: unspecified Heart failure chronicity: unspecified Qualified Code(s): I50.9 - Heart failure, unspecified (3) Atrial fibrillation Code(s): I48.91 - UNSPECIFIED ATRIAL FIBRILLATION Qualifiers: Atrial fibrillation type: permanent Qualified Code(s): I48.2 - Chronic atrial fibrillation (4) COPD (chronic obstructive pulmonary disease) Code(s): J44.9 - CHRONIC OBSTRUCTIVE PULMONARY DISEASE, UNSPECIFIED Qualifiers: COPD type: unspecified COPD Qualified Code(s): J44.9 - Chronic obstructive pulmonary disease, unspecified (5) Coronary artery disease Code(s): I25.10 - ATHSCL HEART DISEASE OF [place] CORONARY ARTERY W/O ANG PCTRS Qualifiers: Coronary Disease-Associated Artery/Lesion type: [place] artery [place] vs. transplanted heart: [place] heart Associated angina: without angina Qualified Code(s): I25.10 - Atherosclerotic heart disease of [place] coronary artery without angina pectoris (6) Hypercholesterolemia Code(s): E78.00 - PURE HYPERCHOLESTEROLEMIA, UNSPECIFIED (7) Hypertension Code(s): I10 - ESSENTIAL (PRIMARY) HYPERTENSION Qualifiers: Hypertension type: essential hypertension Qualified Code(s): I10 - Essential (primary) hypertension (8) Pulmonary HTN Code(s): I27.20 - PULMONARY HYPERTENSION, UNSPECIFIED (9) Sarcoidosis Code(s): D86.9 - SARCOIDOSIS, UNSPECIFIED (10) SANAM (acute kidney injury) Code(s): N17.9 - ACUTE KIDNEY FAILURE, UNSPECIFIED (11) Hypokalemia Code(s): E87.6 - HYPOKALEMIA (12) Hypoxia Code(s): R09.02 - HYPOXEMIA (13) Shortness of breath at rest Code(s): R06.02 - SHORTNESS OF BREATH Assessment/Plan 88 y.o. female [facility] resident with PMH of CHF, AFIB (not on AC), CAD, HTN, HLD, Pulm HTN, Cor Pulmonale, respiratory failure, COPD, Sarcoidosis, anemia, b/l nephrostomy (removed), b/l stent placement in October 2018, previous ESBL + and VRE UTI, S/P cervical spine surgery with hardware presents with c/o SOB, b/l LE edema, and dysuria. Hypoxic, tachycardic, with evidence of pulmonary congestion and U/A suggestive of UTI Complicated UTI/ b/l stents (Hx of ESBL+/VRE) CHF Exacerbation Acute respiratory failure COPD Pulm HTN Sarcoidosis CAD AFIB Anemia plan continue current mgmt stable
[2019-05-27] MEDS: ATORVASTATIN CA 20 MG TABLET (FP) PO SCH (21:15)
[2019-05-28] MEDS: FUROSEMIDE 40 MG TABLET (FP) PO SCH ×2 (06:23→14:23)
[2019-05-28 06:28] LABS: BLOOD UREA NITROGEN 20.4 mg/dL (7-18); CALCIUM 9.5 mg/dL (8.5-10.1); CREATININE 0.7 mg/dL (0.55-1.3); PHOSPHOROUS 3.3 mg/dL (2.5-4.9); POTASSIUM 4.4 mmol/L (3.5-5.1)
[2019-05-28 06:44] VITALS: TEMP 98.4
[2019-05-28] MEDS: ALBUTEROL SO4 2.5/IPRATROPIUM 0.5 INH SOL 3 ML VIAL.NEB. NEB SCH ×3 (07:30→15:20)
[2019-05-28] MEDS: FERROUS SO4 325 MG TABLET (FP) PO SCH (08:56)
--- NOTE | 2019-05-28 09:22 | PN ---
Progress Note, Physician Chief Complaint: sob History of Present Illness: agrees her breathing has improved leg swelling too (though not resolved) no cp today no palpit no cigs - Current Medication List Current Medications: Active Medications Acetaminophen (Tylenol -) 650 mg PO Q6H PRN PRN Reason: PAIN 1-3 Last Admin: 05/21/19 05:34 Dose: 650 mg Albuterol Sulfate (Ventolin 0.083% Nebulizer Soln -) 1 amp NEB Q4H PRN PRN Reason: SHORT OF BREATH/WHEEZING Albuterol/Ipratropium (Duoneb -) 1 amp NEB RQID [facility] Last Admin: 05/28/19 07:30 Dose: 1 amp Aspirin (Ecotrin -) 81 mg PO DAILY [facility] Last Admin: 05/27/19 10:00 Dose: 81 mg Atenolol (Tenormin -) 50 mg PO DAILY [facility] Last Admin: 05/27/19 10:00 Dose: 50 mg Atorvastatin Calcium (Lipitor -) 20 mg PO HS [facility] Last Admin: 05/27/19 21:15 Dose: 20 mg Budesonide/Formoterol Fumarate (Symbicort 160/4.5mcg -) 2 puff IH BID [facility] Last Admin: 05/27/19 21:15 Dose: 2 puff Ferrous Sulfate (Feosol -) 325 mg PO BIDWM [facility] Last Admin: 05/28/19 08:56 Dose: 325 mg Furosemide (Lasix -) 80 mg PO BID@0600,1400 [facility] Last Admin: 05/28/19 06:23 Dose: Not Given Heparin Sodium (Porcine) (Heparin -) 5,000 unit SQ BID [facility] Last Admin: 05/27/19 21:15 Dose: 5,000 unit Lactobacillus Acidophilus (Bacid -) 1 tab PO DAILY [facility] Last Admin: 05/27/19 09:59 Dose: 1 tab Lisinopril (Prinivil) 5 mg PO DAILY [facility] Last Admin: 05/27/19 09:59 Dose: 5 mg Loperamide HCl (Imodium -) 2 mg PO Q8H PRN PRN Reason: DIARRHEA Pantoprazole Sodium (Protonix -) 40 mg PO DAILY [facility] Last Admin: 05/27/19 09:59 Dose: 40 mg Prednisone (Deltasone -) 5 mg PO DAILY [facility] Last Admin: 05/27/19 09:59 Dose: 5 mg Sodium Chloride ([place] Nasal [place] -) 2 spray NS BID PRN PRN Reason: NASAL CONGESTION Last Admin: 05/24/19 11:17 Dose: 2 spray Spironolactone (Aldactone -) 25 mg PO DAILY [facility] Last Admin: 05/27/19 09:59 Dose: 25 mg - Objective Vital Signs: Vital Signs Temperature 98.4 F 05/28/19 06:00 Pulse Rate 82 05/28/19 06:00 Respiratory Rate 18 05/28/19 06:00 Blood Pressure 106/61 05/28/19 06:00 O2 Sat by Pulse Oximetry (%) 98 05/27/19 21:00 Constitutional: Yes: No Distress, Calm Eyes: No: Sclera Icterus HENT: No: Nasal Congestion Cardiovascular: Yes: Regular Rate and Rhythm, S1, S2, Other (PMI non diplaced). No: Gallop, Murmur Respiratory: Yes: Rales, Wheezes. No: Accessory Muscle Use Gastrointestinal: Yes: Normal Bowel Sounds, Soft. No: Tenderness Musculoskeletal: Yes: Other (No kyphosis) Extremities: No: Cold Edema: Yes (1+ pretib) Integumentary: No: Jaundice Neurological: Yes: Alert, Oriented (x3) Psychiatric: No: Agitated Labs: CBC, BMP 05/26/19 06:15 05/28/19 05:30 INR, PTT INR 1.18 (0.83-1.09) H 05/19/19 16:45 Assessment/Plan tele: AF, good HR 82F h/o afib, CHF, COPD (on home O2 2L), HTN, pulm HTN, hematuria s/p b/l perc nephrostomy sent from [place] for chest tightness, shortness of breath, UTI Acute on chronic diastolic HF exacerbation, pulm sarcoid, advanced COPD, cor pulmonale with RV failure, history of chronic hypoxemic/hypercapneic resp failure: -baseline BNP 1K-10K range -IV lasix changed to 80 po bid. exam TDS: ? mild volume up vs mild venous ins'y with active pulm sarcoid. well-compensated--cont same lasix AF: average rates controlled. Some pauses < 3 seconds. - HR control good--cont atenolol - As per prior admission in 12/2018, holding eliquis for hx of severe hematuria, anemia (hi risk for anesthesia for Watchman implant, hi risk for premature discontinuation of AC/DAPT postop with risk of device-associated thrombus) - cont aspirin UTI -As per ID Presumed underlying cad, prior type II NSTEMI 2018 (sec to hypotensive episode): -deferred invasive CAD mgmt approach given poor functional status with competing mortality limitations from severe lung dz, low likelihood to improve prognosis, and risks > benefits (including bleeding, AIN) -treated with ASA, statin, BB -chronic non-cardiac CP on mult prior admits--sec to acute flare of pulm sarcoid vs acute cor pulmonale exacerbations. similar presentation currently with no ischemic changes on ekg, trop neg. -Again w/ chest pain on 05/26, atypical. ECG was unchanged, enzymes all negative -No further w/u at this time
[2019-05-28] MEDS: LACTOBACILLUS ACIDOPHILUS 1 TABLET PO SCH (09:55)
[2019-05-28] MEDS: predniSONE 5 MG TABLET (UD) PO SCH (09:55)
[2019-05-28] MEDS: ATENOLOL 50 MG TABLET (FP) PO SCH (09:55)
[2019-05-28] MEDS: SPIRONOLACTONE 25 MG TABLET (FP) PO SCH (09:55)
[2019-05-28] MEDS: PANTOPRAZOLE 40 MG TABLET (FP) PO SCH (09:56)
[2019-05-28] MEDS: LISINOPRIL 5 MG TABLET (FP) PO SCH (09:56)
[2019-05-28] MEDS: ASPIRIN COATED 81 MG TABLET.EC PO SCH (09:56)
[2019-05-28] MEDS: HEPARIN NA (PORCINE) 5,000 UNITS/ML 1ML VIAL SQ SCH (09:56)
[2019-05-28] MEDS: BUDESONIDE/FORMETEROL FUMARATE 160/4.5 mcg INHALER IH SCH (09:57)
--- NOTE | 2019-05-28 10:26 | PN ---
Progress Note, Physician - Current Medication List Current Medications: Active Medications Acetaminophen (Tylenol -) 650 mg PO Q6H PRN PRN Reason: PAIN 1-3 Last Admin: 05/21/19 05:34 Dose: 650 mg Albuterol Sulfate (Ventolin 0.083% Nebulizer Soln -) 1 amp NEB Q4H PRN PRN Reason: SHORT OF BREATH/WHEEZING Albuterol/Ipratropium (Duoneb -) 1 amp NEB RQID [facility] Last Admin: 05/28/19 07:30 Dose: 1 amp Aspirin (Ecotrin -) 81 mg PO DAILY [facility] Last Admin: 05/28/19 09:56 Dose: 81 mg Atenolol (Tenormin -) 50 mg PO DAILY [facility] Last Admin: 05/28/19 09:55 Dose: 50 mg Atorvastatin Calcium (Lipitor -) 20 mg PO HS [facility] Last Admin: 05/27/19 21:15 Dose: 20 mg Budesonide/Formoterol Fumarate (Symbicort 160/4.5mcg -) 2 puff IH BID [facility] Last Admin: 05/28/19 09:57 Dose: 2 puff Ferrous Sulfate (Feosol -) 325 mg PO BIDWM [facility] Last Admin: 05/28/19 08:56 Dose: 325 mg Furosemide (Lasix -) 80 mg PO BID@0600,1400 [facility] Last Admin: 05/28/19 06:23 Dose: Not Given Heparin Sodium (Porcine) (Heparin -) 5,000 unit SQ BID [facility] Last Admin: 05/28/19 09:56 Dose: 5,000 unit Lactobacillus Acidophilus (Bacid -) 1 tab PO DAILY [facility] Last Admin: 05/28/19 09:55 Dose: 1 tab Lisinopril (Prinivil) 5 mg PO DAILY [facility] Last Admin: 05/28/19 09:56 Dose: 5 mg Loperamide HCl (Imodium -) 2 mg PO Q8H PRN PRN Reason: DIARRHEA Pantoprazole Sodium (Protonix -) 40 mg PO DAILY [facility] Last Admin: 05/28/19 09:56 Dose: 40 mg Prednisone (Deltasone -) 5 mg PO DAILY [facility] Last Admin: 05/28/19 09:55 Dose: 5 mg Sodium Chloride ([place] Nasal [place] -) 2 spray NS BID PRN PRN Reason: NASAL CONGESTION Last Admin: 05/24/19 11:17 Dose: 2 spray Spironolactone (Aldactone -) 25 mg PO DAILY [facility] Last Admin: 05/28/19 09:55 Dose: 25 mg - Objective Vital Signs: Vital Signs Temperature 98.4 F 05/28/19 06:00 Pulse Rate 82 05/28/19 06:00 Respiratory Rate 18 05/28/19 06:00 Blood Pressure 106/61 05/28/19 06:00 O2 Sat by Pulse Oximetry (%) 98 05/27/19 21:00 Labs: CBC, BMP 05/26/19 06:15 05/28/19 05:30 INR, PTT INR 1.18 (0.83-1.09) H 05/19/19 16:45
[2019-05-28 11:09] VITALS: BP 100/52; PULSE 98
--- NOTE | 2019-05-28 13:42 | PN ---
Teaching Attending Note Name of Resident: Maci Boyer ATTENDING PHYSICIAN STATEMENT I saw and evaluated the patient. I reviewed the resident's note and discussed the case with the resident. I agree with the resident's findings and plan as documented. SUBJECTIVE:denies CP, SOB,f ever, chills, cough OBJECTIVE: Last Vital Signs Temp Pulse Resp BP Pulse Ox 98.4 F 98 H 18 100/52 L 96 05/28/19 10:00 05/28/19 10:00 05/28/19 10:00 05/28/19 10:00 05/28/19 09:00 Intake & Output 05/25/19 05/26/19 05/27/19 05/28/19 23:59 23:59 23:59 23:59 Intake Total 500 560 580 300 Balance 500 560 580 300 Weight 166 lb 163 lb 163 lb 0.2 oz 156 lb General NAD Lungs CTA B/L no wheezing/rales/rhonchi Extremities 2+ pitting edema B/L ASSESSMENT AND PLAN: 88 year old female with history of CRF sec to COPD (on 2-3L O2), Pulmonary Sarcoid, HTN, Atrial Fibrillation, HLD, Pulmonary HTN, Chronic Diastolic CHF, cor pulmonale with RV failure, Hx of ESBL/VRE UTI, s/p bilateral nephrostomies ( reversed) and bilateral ureteral stenting, presented to ED with worsening SOB and LE edema with fluid weeping from skin of LEs. SpO2 reportedly in 70s at [place], here in 90s. 1. Acute Respiratory Distress secondary to Acute on Chronic Diastolic CHF/R sided HF - initially requiring BiPAP, now comfortable on NC. saturating 97% on 3L NC which is home dose. repeat Echo showing no pericardial effusion. on pred 5mg for sarcoid. cont current treatment 2. Diarrhea- likely abx assoc. now improved with bacid. will cont. 3. Klebsiella UTI- completed ceftriaxone for 7 days. ID on board 4. Acute on chronic diastolic CHF- weight improved. refused lasix this AM, because shes annoyed she is returning to rehab. explained importance of medication compliance and follow up. encourage her to take lasix later dose. advised on dietary restriction of salt (has chips and crackers at bedside) Unable to give betablocker due to COPD. on aldactone/statin. Daily weights. monitor electrolytes. cardio on board. 5. epistaxis- due to mucosal irritation from chronic oxygen use. hgb is stable. switch to humidified air. no repeat episodes 6. HTN- controlled. 7. COPD- on pulmonary sarcoid. on pred 5mg. cont 8. Dyslipidemia - Continue Atorvastatin 9. Atrial Fibrillation- not on anticoag due to hx of hematuria. cont current treatment. 10. Hypomagnesemia - resolved s/p repletion 11. Microcytic Anemia,-hgb stable. no signs of bleeding. no indication for transfusion 12. DVT Px - Heparin SQ 13. d/c to [facility] today
--- NOTE | 2019-05-28 14:22 | DS ---
Physical Exam: SUBJECTIVE: Patient seen and examined at bedside. pt states her breathing is improved and that her legs are less edematous. pt is refusing her lasix today as she states it makes her confused. OBJECTIVE: Vital Signs Period Temp Pulse Resp BP Sys/Garza Pulse Ox Last 24 Hr 98.4 F-98.9 F 66-98 18-18 100-158/52-67 96-98 PHYSICAL EXAM GENERAL: The patient is awake, alert, and fully oriented, in no acute distress. LUNGS: Breath sounds equal, clear to auscultation bilaterally, wheezes improved HEART: irregular rate and rhythm, S1, S2 ABDOMEN: Soft, nontender, nondistended, normoactive bowel sounds, no guarding, no rebound EXTREMITIES: 2+ pulses, warm, well-perfused, no edema. SKIN: Warm, dry, normal turgor, no rashes or lesions noted. LABS Laboratory Results - last 24 hr 05/28/19 05:30 Sodium 142 Potassium 4.4 Chloride 95 L Carbon Dioxide 45 H Anion Gap 2 L BUN 20.4 H Creatinine 0.7 Est GFR (CKD-EPI)AfAm 89.03 Est GFR (CKD-EPI)NonAf 76.82 Random Glucose 165 H Calcium 9.5 Phosphorus 3.3 Magnesium 2.0 HOSPITAL COURSE: Date of Admission:05/19/19 88 yo F PMH of COPD (on 2-3L at [place]), HTN, Afib, HLD, Pulmonary HTN, HFpEF, cor pulmonale with RV failure presented to ED with worsening lower leg pain and edema.pt is admitted for acute on chronic HFpEF. Pt also found to have a UTI, prior admission grew ESBL. while in the hospital pt had echo which was reviewed. Pt has R heart failure, cor pulmonale. PT was started on IV Lasix and transitioned to PO. Daily weights were monitored and the pt lost 3 lbs during hospital course. Cardiology followed the pt . The pt had positve U Cx for klebsiella and was treated with 5 days antibiotics (meropenem, linezolid, ceftriaxone). ID followed the pt . The pt has a history of pulm sarcoid and copd , pt required Bipap on admission but was titrated down to 3L NC . pt was treated with duoneb, prednisone, symbcort. The pt has a history of htn controlled with lisinopril, spironolactone and atenolol ( home meds). Pt was continued on atorvastatin for hld. The pt has history of Afib but anticoag was held during prior admission 2/2 hematuria. pt is rate contrled. Pt was microcytic anemia with no evidence of acute blood loss. Rec oral supplements. Pt counselled on low sodium diet and recommended to f/u with primary physician in 1 week. Date of Discharge: 05/28/19 Minutes to complete discharge: 36 Discharge Summary Reason For Visit: SHORTNESS OF BREATH Current Active Problems CHF (congestive heart failure) (Chronic) Condition: Improved - Instructions Diet, Activity, Other Instructions: You presented to the hospital with difficulty breathing and pain in your legs. You were given breathing treatments and also a water pill to help reduce the fluid in your body. Please eat a low salt diet, this will prevent your swelling from getting worse. Continue with your home oxygen Your blood shows that you have anemia. Please continue to take Lasix 80 mg orally twice a day. Please continue taking your other home medications as directed. Please continue to take Feosol, for your anemia. Please recheck your blood in 3- 4 weeks. Follow up with your primary care physician within one week after discharge. A referral to [facility] has been provided. Follow up with your data warehouse manager regarding your heart failure management. Follow up with your combination saw operator regarding your COPD. Return to the nearest Emergency Department if you experience worsening symptoms , headaches, confusion, fall, loss of consciousness, dizziness, changes in vision, fevers, chills, shortness of breath, chest pain, palpitations, abdominal pain, nausea, vomiting, pain or bleeding upon urination, or with defecation. Referrals: [facility] [place] [facility] [place] [Provider Group] Fanny Hackett MD [Staff Physician] - Disposition: [facility] - Home Medications Comprehensive Discharge Medication List: Ambulatory Orders Acetaminophen [Tylenol] 325 mg PO Q8H PRN 01/21/19 Atenolol [Tenormin] 50 mg PO DAILY 01/21/19 Atorvastatin Calcium [Lipitor] 20 mg PO HS 01/21/19 Budesonide/Formeterol Fumarate [SYMBICORT 160/4.5mcg -] 2 inh PO BID 01/21/19 Lisinopril [Prinivil] 5 mg PO DAILY 01/21/19 Omeprazole 20 mg PO DAILY 01/21/19 Prednisone 5 mg PO DAILY 01/21/19 Spironolactone [Aldactone] 25 mg .ROUTE DAILY 01/21/19 Albuterol 0.083% Nebulizer Lyud[place]ila [Ventolin 0.083% Nebulizer Soln -] 1 amp NEB Q4H PRN amp 05/28/19 Albuterol 2.5/Ipratropium 0.5 [Duoneb -] 1 amp NEB RQID amp 05/28/19 Ferrous Sulfate [Feosol] 325 mg PO BIDWM ud 05/28/19 Furosemide [Lasix -] 80 mg PO BID@0600,1400 tablet 05/28/19 Sodium Chloride Nasal [place] [[place] Nasal [place] -] 2 spray NS BID PRN spray 05/28/19 This patient is new to me today: No Emergency Visit: No Critical Care patient: No - Discharge Referral Referred to [facility] Med [facility].C[facility] No ATTENDING PHYSICIAN STATEMENT I saw and evaluated the patient. I reviewed the resident's note and discussed the case with the resident. I agree with the resident's findings and plan as documented. SUBJECTIVE: OBJECTIVE: ASSESSMENT AND PLAN:
[2019-05-28 15:45] VITALS: BMI 28.5
== END 2019-05-28 15:41 | DRG 291 ==
LOC: JER 16:28 → JERBED 19:04 → J4S 05-20 15:25
PROVIDERS: ADMIT Internal Medicine; ATTEND Internal Medicine
DX: I13.0 Hypertensive heart and chronic kidney disease with heart failure and stage 1 through stage 4 chronic kidney disease, or unspecified chronic kidney disease (principal); I50.33 Acute on chronic diastolic (congestive) heart failure; J96.00 Acute respiratory failure, unspecified whether with hypoxia or hypercapnia; N39.0 Urinary tract infection, site not specified; N17.9 Acute kidney failure, unspecified; K52.1 Toxic gastroenteritis and colitis; J44.9 Chronic obstructive pulmonary disease, unspecified; I27.20 Pulmonary hypertension, unspecified; I27.81 Cor pulmonale (chronic); I25.10 Atherosclerotic heart disease of native coronary artery without angina pectoris; E87.6 Hypokalemia; D86.0 Sarcoidosis of lung; N18.9 Chronic kidney disease, unspecified; E83.42 Hypomagnesemia; D50.9 Iron deficiency anemia, unspecified; Z66 Do not resuscitate; I25.2 Old myocardial infarction; T36.8X5A Adverse effect of other systemic antibiotics, initial encounter; B96.1 Klebsiella pneumoniae [K. pneumoniae] as the cause of diseases classified elsewhere; R04.0 Epistaxis
CPT/HCPCS: 36415; 36600; 71045-TC-FY; 80048; 80053; 80061; 81003; 82375; 82550; 82728; 82803; 82962; 83036; 83050; 83540; 83605; 83721; 83735; 83880; 84100; 84484; 85025; 85027; 85610; 87040; 87086; 87186; 93005; 93010; 93306-TC; 93970-TC; 94640; 94660; 97116-GP; 97161-GP; 99285-25; J1644

== ENCOUNTER 2019-07-03 11:10 | Emergency (ER) | payer OTHER ==
[2019-07-03 11:33] VITALS: BMI 21.9
[2019-07-03 12:02] VITALS: TEMP 98.8
--- NOTE | 2019-07-03 12:07 | PDOC ---
History of Present Illness - General Chief Complaint: Shortness of Breath Stated Complaint: Shortness of Breath Time Seen by Provider: 07/03/19 11:49 History Source: Patient Exam Limitations: No Limitations - History of Present Illness Initial Comments: 07/03/19 12:08 88 yo F PMH of COPD (on 2-3L at [place]), HTN, Afib, HLD, Pulmonary HTN, HFpEF, cor pulmonale with RV failure presents to the emergency department with SOB for 1 month with bilateral lower pleuritic chest pain. Per the patient, she states she had concurrent chest pain in the epigastric and LUQ region. Per the patient , she denies the pain radiating, Shx: 07/03/19 12:09 07/03/19 12:18 Past History - Past Medical History Allergies/Adverse Reactions: Allergies Allergy/AdvReac Type Severity Reaction Status Date / Time levofloxacin [From Levaquin] Allergy Intermediate Itching Verified 05/19/19 17: 34 Home Medications: Ambulatory Orders Acetaminophen [Tylenol] 325 mg PO Q8H PRN 01/21/19 Atenolol [Tenormin] 50 mg PO DAILY 01/21/19 Atorvastatin Calcium [Lipitor] 20 mg PO HS 01/21/19 Budesonide/Formeterol Fumarate [SYMBICORT 160/4.5mcg -] 2 inh PO BID 01/21/19 Lisinopril [Prinivil] 5 mg PO DAILY 01/21/19 Omeprazole 20 mg PO DAILY 01/21/19 Prednisone 5 mg PO DAILY 01/21/19 Spironolactone [Aldactone] 25 mg .ROUTE DAILY 01/21/19 Albuterol 0.083% Nebulizer Lyudmila [Ventolin 0.083% Nebulizer Soln -] 1 amp NEB Q4H PRN amp 05/28/19 Albuterol 2.5/Ipratropium 0.5 [Duoneb -] 1 amp NEB RQID amp 05/28/19 Ferrous Sulfate [Feosol] 325 mg PO BIDWM ud 05/28/19 Furosemide [Lasix -] 80 mg PO BID@0600,1400 tablet 05/28/19 Sodium Chloride Nasal [place] [[place] Nasal [place] -] 2 spray NS BID PRN spray 05/28/19 Cephalexin Monohydrate [Keflex -] 500 mg PO BID #14 capsule 07/03/19 Anemia: Yes (PERNICIOUS) Asthma: Yes (HX RESPIRATORY FAILURE) Cancer: No Cardiac Disorders: Yes (AF, CAD) CVA: No COPD: Yes CHF: Yes Dementia: No Diabetes: No GI Disorders: Yes (GASTRITIS) Disorders: Yes (HX KIDNEY FAILURE,UTI. nephrostomy tube) HTN: Yes Hypercholesterolemia: Yes Liver Disease: No Psychiatric Problems: Yes (ANXIETY.) Seizures: No Thyroid Disease: No - Surgical History Abdominal Surgery: Yes (abdominal) Appendectomy: No Cardiac Surgery: No Cholecystectomy: Yes Lung Surgery: (PT DENIES) Neurologic Surgery: No Orthopedic Surgery: Yes (cervical spine w/hardware) - Immunization History Immunization Up to Date: Yes - Suicide/Smoking/Psychosocial Hx Smoking Status: No Smoking History: Never smoked Years of Tobacco Use: 0 Have you smoked in the past 12 months: No Number of Cigarettes Smoked Daily: 0 Information on smoking cessation initiated: No Hx Alcohol Use: No Drug/Substance Use Hx: No Substance Use Type: None Hx Substance Use Treatment: No *Physical Exam - Vital Signs Last Vital Signs Temp Pulse Resp BP Pulse Ox 98.8 F 73 22 H 109/44 L 100 07/03/19 12:01 07/03/19 11:20 07/03/19 11:20 07/03/19 11:20 07/03/19 11:20 ED Treatment Course - LABORATORY CBC & Chemistry Diagram: 07/03/19 12:30 07/03/19 12:30 *DC/Admit/Observation/Transfer Diagnosis at time of Disposition: COPD (chronic obstructive pulmonary disease), Pulmonary HTN, Atrial fibrillation - Discharge Dispostion Disposition: HOME Decision to Admit order: No - Prescriptions Prescriptions: Cephalexin Monohydrate [Keflex -] 500 mg PO BID #14 capsule - Referrals Referrals: Jonathon Goldman [Primary Care Provider] - - Patient Instructions Printed Discharge Instructions: DI for Shortness of Breath Additional Instructions: You were seen in the emergency department for the evaluation of your shortness of breath. Please follow up with your primary medical doctor within 1 week after discharge for follow up care and management. Please return if you have worsening symptoms or new concerning symptoms such as fevers, uncontrollable nausea and vomiting, and chest pain. Thank you. - Post Discharge Activity
[2019-07-03] MEDS ORDERED: ACETAMINOPHEN 1000 MG/100 ML VIAL (NON FORMULARY) IVPB ONE (12:16)
[2019-07-03] MEDS ORDERED: FAMOTIDINE 20 MG/50 ML IVPB 20 MG/50 ML MG IVPB ONE ×2 (12:16→12:36)
[2019-07-03] MEDS ORDERED: ACETAMINOPHEN INJECTION 100 ML IVPB ONE (12:36)
[2019-07-03 12:41] LABS: BASO % 0.8 % (0-2.0); EOS % 0.1 % (0-4.5); HEMATOCRIT 43.3 % (32.4-45.2); HEMOGLOBIN 13.5 GM/dL (10.7-15.3); MCH 21.3 pg (25.7-33.7); MCHC 31.2 g/dl (32.0-36.0); MEAN CELL VOLUME 68.3 fl (80-96); MEAN PLT VOLUME 9.3 fl (7.5-11.1); MONO % 8.9 % (3.8-10.2); NEUT % 73.2 % (42.8-82.8); PLATELET COUNT 178 K/MM3 (134-434); RBC 6.35 M/mm3 (3.60-5.2); RDW 17.2 % (11.6-15.6); WHITE BLOOD COUNT 6.6 K/mm3 (4.0-10.0)
--- NOTE | 2019-07-03 13:01 | EKG ---
Test Reason : Blood Pressure : / mmHG Vent. Rate : 071 BPM Atrial Rate : 150 BPM P-R Int : 000 ms QRS Dur : 082 ms QT Int : 386 ms P-R-T Axes : 000 -13 -07 degrees QTc Int : 419 ms ATRIAL FIBRILLATION NONSPECIFIC ST ABNORMALITY ABNORMAL ECG WHEN COMPARED WITH ECG OF 25-MAY-2019 08:05, NO SIGNIFICANT CHANGE WAS FOUND Confirmed by MD Machado Edward ([id number]) on 07/03/2019 1:00:27 PM Referred By: Confirmed By:Kapil Machado MD
[2019-07-03 13:23] LABS: ANISOCYTOSIS 1+; OVALOCYTE 1+; PLATELET ESTIMATE ADEQUATE
[2019-07-03 13:27] LABS: BLOOD UREA NITROGEN 41.6 mg/dL (7-18); CHLORIDE 102 mmol/L (98-107); CO2 25 mmol/L (21-32); CREATININE 1.3 mg/dL (0.55-1.3); GLUCOSE,RANDOM 121 mg/dL (74-106); SODIUM 133 mmol/L (136-145)
[2019-07-03 13:28] LABS: ALBUMIN 3.2 g/dl (3.4-5.0); ALK PHOS 81 U/L (45-117); ANION GAP 6 MMOL/L (8-16); BILIRUBIN,TOTAL 0.7 mg/dL (0.2-1); LIPASE 128 U/L (73-393); SGOT/AST 28 U/L (15-37); SGPT/ALT 15 U/L (13-61); TOT PROT 7.2 g/dl (6.4-8.2)
[2019-07-03 13:30] LABS: POTASSIUM 6.2 mmol/L (3.5-5.1)
--- NOTE | 2019-07-03 15:02 | PDOC ---
Documentation entered by Joanne Oliver SCRIBE, acting as scribe for Antonio Rice MD. Antonio Rice MD: This documentation has been prepared by the Benito rangel Renju, SCRIBE, under my direction and personally reviewed by me in its entirety. I confirm that the documentation accurately reflects all work, treatment, procedures, and medical decision making performed by me. Attending Attestation - Resident Resident Name: Luis E Goodman - ED Attending Attestation I have performed the following: I have examined & evaluated the patient, The case was reviewed & discussed with the resident, I agree w/resident's findings & plan, Exceptions are as noted - HPI HPI: 07/03/19 15:05 The patient is an 88 year old female with a past medical history of COPD (on 2[facility]), Afib, HLD, Pulmonary HTN, HFpEF, cor pulmonale with RV failure who presents to the emergency department for evaluation of shortness of breath for 1 month. Patient endorses moderate abdominal tenderness and nausea. She states she has been passing flatus and having regular bowel movements. Denies vomiting. - Physicial Exam PE: 07/03/19 15:05 ROS: A complete review of 10 out of 10 review of systems is taken and is negative apart from what is previously mentioned below and in the HPI. Vitals: Triage Vital signs reviewed General Appearance: no acute distress, well nourished well developed, Head: Atraumatic, Eyes: Pupils equal reactive round, extraocular movement intact Neck: Supple; Chest Wall: Nontender Cardiac: Regular rate and rhythm, no murmurs, no rubs, no gallops, Lungs: Clear to auscultation bilaterally, good air movement bilaterally, Abdomen: (+)diffuse abdominal tenderness greater on L side Extremities: Full range of motion to all extremities, no cyanosis, clubbing, or edema Skin: Warm and dry, no rashes or lesions, no rash, no petechiae Neuro: Strength intact to all extremities, Sensation intact to all extremities, gait normal Psych: normal mood, normal affect - Medical Decision Making 07/03/19 15:31 The patient is an 88 year old female with a past medical history of COPD (on 2- [facility]), Afib, HLD, Pulmonary HTN, HFpEF, cor pulmonale with RV failure who presents to the emergency department for evaluation of shortness of breath for 1 month. Patient endorses moderate abdominal tenderness and nausea. She states she has been passing flatus and having regular bowel movements. Denies vomiting Chronic COPD, with new abd tenderness CT with no discrete patholog Feels better after Duone[facility] Will dc back to [facility] Findings the need for follow up and strict return instructions D/W patient.
[2019-07-03 15:46] VITALS: BP 112/64; PULSE 72
[2019-07-03] MEDS ORDERED: ALBUTEROL SO4 2.5/IPRATROPIUM 0.5 INH SOL 3 ML VIAL.NEB. NEB ONE ×2 (15:49→15:54)
[2019-07-03 17:03] LABS: EPI CELLS 2.9 /HPF (0-5/HPF); HYALINE CASTS 3 /lpf (0-8); URINE APPEARANCE CLOUDY; URINE BACTERIA 2221.9 /hpf (NEGATIVE); URINE BILIRUBIN NEGATIVE (NEGATIVE); URINE COLOR YELLOW; URINE GLUCOSE (UA) NEGATIVE (NEGATIVE); URINE KETONE NEGATIVE (NEGATIVE); URINE LEUK ESTERASE 2+ (NEGATIVE); URINE NITRITE NEGATIVE (NEGATIVE); URINE PROTEIN NEGATIVE (NEGATIVE); URINE RBC 6 /hpf (0-4); URINE WBC 219 /hpf (0-5)
[2019-07-03] MEDS ORDERED: CEPHALEXIN MONOHYDRATE 500 MG CAPSULE (UD) PO ONE (17:26)
[2019-07-03] MEDS ORDERED: CEPHALEXIN MONOHYDRATE 500 MG CAPSULE (UD) ONE (17:27)
[2019-07-03 18:08] LABS: YEAST NEGATIVE (NEGATIVE)
== END 2019-07-03 17:59 ==
LOC: JER 11:10
PROC: 3E0F7GC Introduction of Other Therapeutic Substance into Respiratory Tract, Via Natural or Artificial Opening (ICD-10-PCS; principal; 2019-07-03)
PROC: 3E033GC Introduction of Other Therapeutic Substance into Peripheral Vein, Percutaneous Approach (ICD-10-PCS; 2019-07-03)
PROC: 3E033NZ Introduction of Analgesics, Hypnotics, Sedatives into Peripheral Vein, Percutaneous Approach (ICD-10-PCS; 2019-07-03)
DX: J44.9 Chronic obstructive pulmonary disease, unspecified (principal); Z99.81 Dependence on supplemental oxygen; I25.10 Atherosclerotic heart disease of native coronary artery without angina pectoris; I11.0 Hypertensive heart disease with heart failure; I50.9 Heart failure, unspecified; I27.29 Other secondary pulmonary hypertension; I27.81 Cor pulmonale (chronic); I48.91 Unspecified atrial fibrillation; Z79.01 Long term (current) use of anticoagulants; E78.00 Pure hypercholesterolemia, unspecified; D51.0 Vitamin B12 deficiency anemia due to intrinsic factor deficiency
CPT/HCPCS: 36415; 71045-TC-FY; 74177-TC; 80053; 81003; 82550; 83605; 83690; 84484; 85025; 87086; 87186; 93005; 93010; 94640; 96365; 96375; 99283-25; J0131; Q9967